=== PATIENT | male | born 1985 | race Caucasian/White ===

== ENCOUNTER 2018-10-09 12:06 | Emergency (ER) | payer OTHER ==
--- OUTSIDE RECORDS SUMMARY | 2018-10-09 12:09 | XMS REPORT ---
:1985 Author Organization [facility] Address [address] [place] [place] [address] Care Team Providers Name Role Phone FARSHADNILOTESSA Unavailable Unavailable Problems This patient has no known problems. Allergies, Adverse Reactions, Alerts This patient has no known allergies or adverse reactions. Medications This patient has no known medications. Results Test Description Test Time Test Comments Text Results Atomic Results Result Comments [facility], [facility], 2017-03-17 14:45:00 FINAL REPORT SPECT PROCEDURE: Rest/Stress MYOCARDIAL PERFUSION SPECT with treadmill\XA9\ CPT CODE: 85833 INDICATION: Chest pain HISTORY: Cardiac risk factors: Hypertension. Other cardiovascular history: No reported CAD. Recent cardiac symptoms: Chest pain. Current cardiovascular-related medications: Metoprolol. PROTOCOL: 10.5 mCi of Tc-99m sestamibi was injected iv at rest, and SPECT (tomographic) images were obtained. Also, 31.2 mCi of Tc-99m sestamibi was injected iv approximately one minute prior to peak exercise, and gated SPECT images were obtained. PRELIMINARY STRESS TEST DATA FROM NONINVASIVE CARDIOLOGY: The patient exercised for 8 minutes 31 seconds using the Brian treadmill protocol. Heart rate was 99 beats/min at rest; peak heart rate was 148 beats/min (78% of MPHR). BP was 150/103 mmHg at rest; peak BP was 175/90 mmHg. Exercise was stopped for fatigue. The patient experienced chest tightness; treatment was not required. Preliminary ECG evaluation revealed sinus rhythm at rest and no ischemic changes with stress. (Final ECG interpretation and other stress and monitoring data are reported separately by Cardiology.) IMAGING FINDINGS: Study quality is good. Images obtained after rest and stress injections show normal LV activity. LV and RV volumes appear normal. Gated images obtained at rest after stress injection show normal LV wall motion and thickening. QGS LVEF is 63%. IMPRESSION: 1. Normal study. 2. Adequate exercise stress. 3. Normal myocardial perfusion. 4. Normal resting LV function. 5. Normal extracardiac tracer distribution. 6. No previous [facility] study for comparison. NONINVASIVE RISK STRATIFICATION: The above findings are considered low risk (<1% annual mortality rate) based on the following criterion:- Normal or small myocardial perfusion defect at rest or with stress(JACC. 2012;59(9):857-81.) Signed: Ignacio Ruvalcaba MDReport Verified Date/Time: 03/17/2017 14:45:11 Reading Location: [place] [id number] Reading Room GLOBIN A1C 2017-03-17 08:29:00 Test Item Value Reference Range Comments HEMOGLOBIN A1C (BEAKER) (test qsyr=329) 5.5 % 4.3-6.1 CREATINE KINASE (CK), TOTAL AND [id number] 02:45:00 Test Item Value Reference Range Comments CREATINE KINASE TOTAL (BEAKER) (test txkf=967) 34 U/L 29-200 CREATINE KINASE-MB (BEAKER) (test zmrp=455) 0.4 ng/mL 0.0-6.6 CREATINE KINASE-MB INDEX (BEAKER) (test xnaf=815) 1.2 % CK-MB Reference Range:<6.7 Normal6.7-10.0 Borderline>10.0 AbnormalTROPONIN [id number] 02:45:00 Test Item Value Reference Range Comments TROPONIN I (BEAKER) (test ddxs=910) < ng/mL 0.00-0.03 Troponin I (TnI) levels must be interpreted in the context of the presenting symptoms and the clinical findings. Elevated TnI levels indicate myocardial damage, but are not specific for ischemic heart disease. Elevated TnI levels are seen in patients with other cardiac conditions (including myocarditis and congestive heart failure), and slight TnI elevations occur in patients with other conditions, including sepsis, renal failure, acidosis, acute neurological disease, and persistent tachyarrhythmia.RAD, CHEST, 1 VIEW, NON [id number] 20:40:00Reason for exam:->chest painShould this be performed at the bedside?- >YesFINAL REPORT EXAMINATION: AP PORTABLE CHEST RADIOGRAPH CLINICAL INDICATION:Chest pain IMPRESSION: Compared with 04/30/2016. No evidence of focal lung consolidation, pulmonary edema or pleural effusion. The heart size is normal. Mediastinal contours are sharp. No evidence of an acute osseous abnormality or pneumothorax. Signed: Santhosh Castle MDReport Verified Date/Time: 03/16/2017 20:40:21 Reading Location: [address] Reading Room Electronically signed by: SANTHOSH CASTLE M.D. on 10/2016 08:40 PMB-TYPE NATRIURETIC FACTOR (BNP)2017-03-16 20:30:00 Test Item Value Reference Range Comments B-TYPE NATRIURETIC PEPTIDE (BEAKER) (test mpsy=139) < pg/mL 0-100 COMPREHENSIVE METABOLIC [id number] 20:30:00 Test Item Value Reference Range Comments TOTAL PROTEIN (BEAKER) 7.6 gm/dL 6.0-8.3 Specimen slightly (test bpep=975) hemolyzed ALBUMIN (BEAKER) (test 4.0 g/dL 3.5-5.0 Specimen slightly sroh=5857) hemolyzed ALKALINE PHOSPHATASE 70 U/L 40-150 (BEAKER) (test kjuv=165) BILIRUBIN TOTAL (BEAKER) 0.4 mg/dL 0.2-1.2 Specimen slightly (test bitd=359) hemolyzed SODIUM (BEAKER) (test 140 meq/L 136-145 dhhv=754) POTASSIUM (BEAKER) (test 4.9 meq/L 3.5-5.1 Specimen slightly ggwq=876) hemolyzed CHLORIDE (BEAKER) (test 102 meq/L 98-107 wtje=365) CO2 (BEAKER) (test 29 meq/L 22-29 lnxb=228) BLOOD UREA NITROGEN 7 mg/dL 7-21 (BEAKER) (test gfju=790) CREATININE (BEAKER) (test 0.85 mg/dL 0.57-1.25 Specimen slightly csjb=164) hemolyzed GLUCOSE RANDOM (BEAKER) 98 mg/dL 70-105 (test gxrn=242) CALCIUM (BEAKER) (test 8.9 mg/dL 8.4-10.2 pisf=075) AST (SGOT) (BEAKER) (test 23 U/L 5-34 Specimen slightly ihhc=645) hemolyzed ALT (SGPT) (BEAKER) (test 21 U/L 6-55 Specimen slightly qolz=289) hemolyzed EGFR (BEAKER) (test mL/min/1.73 sq m INSUFFICIENT CLINICAL DATA oaun=6359) TO CALCULATE ESTIMATED GFR. CREATINE KINASE (CK), TOTAL AND [id number] 20:28:00 Test Item Value Reference Range Comments CREATINE KINASE TOTAL (BEAKER) (test xexv=737) 50 U/L 29-200 CREATINE KINASE-MB (BEAKER) (test nbdf=801) 0.5 ng/mL 0.0-6.6 CREATINE KINASE-MB INDEX (BEAKER) (test ookz=510) 1.0 % CK-MB Reference Range:<6.7 Normal6.7-10.0 Borderline>10.0 AbnormalTROPONIN [id number] 20:28:00 Test Item Value Reference Range Comments TROPONIN I (BEAKER) (test odqy=584) < ng/mL 0.00-0.03 Troponin I (TnI) levels must be interpreted in the context of the presenting symptoms and the clinical findings. Elevated TnI levels indicate myocardial damage, but are not specific for ischemic heart disease. Elevated TnI levels are seen in patients with other cardiac conditions (including myocarditis and congestive heart failure), and slight TnI elevations occur in patients with other conditions, including sepsis, renal failure, acidosis, acute neurological disease, and persistent tachyarrhythmia.[id number] 20:21:00 Test Item Value Reference Range Comments MAGNESIUM (BEAKER) (test 2.2 mg/dL 1.6-2.6 Specimen slightly hemolyzed eaqy=487) [id number] 20:21:00 Test Item Value Reference Range Comments PHOSPHORUS (BEAKER) (test 3.9 mg/dL 2.3-4.7 Specimen slightly hemolyzed crlg=199) LIPID [id number] 20:21:00 Test Item Value Reference Range Comments TRIGLYCERIDES (BEAKER) (test 212 mg/dL Specimen slightly hemolyzed ozxn=305) CHOLESTEROL (BEAKER) (test 239 mg/dL Specimen slightly hemolyzed wkof=205) HDL CHOLESTEROL (BEAKER) (test 35 mg/dL wnxv=856) LDL CHOLESTEROL CALCULATED 162 mg/dL (BEAKER) (test ndfg=508) Triglyceride Reference Range: Low Risk <150 Borderline 150- 199 High Risk 200-499 Very High Risk >=500Cholesterol Reference Range: Low Risk <200 Borderline 200-239 High Risk > 240HDL Cholesterol Reference Range: Low Risk >=60 High Risk <40LDL Cholesterol Reference Range: Optimal <100 Near Optimal 100-129 Borderline 130-159 High 160-189 Very High >=190PROTHROMBIN TIME/[id number] 20:07:00 Test Item Value Reference Range Comments PROTIME (BEAKER) (test uana=256) 13.0 seconds 11.7-14.7 INR (BEAKER) (test zxzd=292) 1.0 <=5.9 RECOMMENDED COUMADIN/WARFARIN INR THERAPY RANGESSTANDARD DOSE: 2.0 - 3.0 Includes: PROPHYLAXIS forvenous thrombosis, systemic embolization; TREATMENT for venous thrombosis and/or pulmonary embolus.HIGH RISK: Target INR is 2.5-3.5 for patients with mechanical heart valves.[id number] 20:07:00 Test Item Value Reference Range Comments PARTIAL THROMBOPLASTIN TIME (BEAKER) (test 26.9 seconds 22.5-36.0 ltrt=151) CBC W/PLT COUNT & AUTO [id number] 19:57:00 Test Item Value Reference Range Comments WHITE BLOOD CELL COUNT (BEAKER) (test rerr=341) 8.3 K/ L 3.5-10.5 RED BLOOD CELL COUNT (BEAKER) (test hljv=433) 5.41 M/ L 4.63-6.08 HEMOGLOBIN (BEAKER) (test bkfc=060) 16.2 GM/DL 13.7-17.5 HEMATOCRIT (BEAKER) (test jhtc=565) 48.8 % 40.1-51.0 MEAN CORPUSCULAR VOLUME (BEAKER) (test mvlq=758) 90.2 fL 79.0-92.2 MEAN CORPUSCULAR HEMOGLOBIN (BEAKER) (test 29.9 pg 25.7-32.2 kcfb=478) MEAN CORPUSCULAR HEMOGLOBIN CONC (BEAKER) (test 33.2 GM/DL 32.3-36.5 tvxp=679) RED CELL DISTRIBUTION WIDTH (BEAKER) (test 13.1 % 11.6-14.4 wkfi=893) PLATELET COUNT (BEAKER) (test qood=453) 253 K/CU MM 150-450 MEAN PLATELET VOLUME (BEAKER) (test xpkj=700) 10.5 fL 9.4-12.4 NUCLEATED RED BLOOD CELLS (BEAKER) (test 0 /100 WBC 0-0 ulkv=026) NEUTROPHILS RELATIVE PERCENT (BEAKER) (test 45 % exvn=151) LYMPHOCYTES RELATIVE PERCENT (BEAKER) (test 32 % cyjp=638) MONOCYTES RELATIVE PERCENT (BEAKER) (test 14 % zbxz=702) EOSINOPHILS RELATIVE PERCENT (BEAKER) (test 7 % nuka=108) BASOPHILS RELATIVE PERCENT (BEAKER) (test 1 % hgrz=661) NEUTROPHILS ABSOLUTE COUNT (BEAKER) (test 3.77 K/ L 1.78-5.38 gsyi=474) LYMPHOCYTES ABSOLUTE COUNT (BEAKER) (test 2.66 K/ L 1.32-3.57 hlyr=832) MONOCYTES ABSOLUTE COUNT (BEAKER) (test 1.16 K/ L 0.30-0.82 stac=859) EOSINOPHILS ABSOLUTE COUNT (BEAKER) (test 0.59 K/ L 0.04-0.54 miam=338) BASOPHILS ABSOLUTE COUNT (BEAKER) (test 0.08 K/ L 0.01-0.08 livk=578) IMMATURE GRANULOCYTES-RELATIVE PERCENT (BEAKER) 1 % 0-1 (test nvay=6450)
--- OUTSIDE RECORDS SUMMARY | 2018-10-09 12:09 | XMS REPORT | Clinical Summary ---
:1985 Author Organization [facility] Address [address] [place] [address] Care Team Providers Name Role Phone Vijay Luke Primary Care Provider Allergies No Known Allergies Medications No known medications Active Problems Problem Noted Date Chest pain 03/16/2017 Chest pain, unspecified type 04/30/2016 Family History Medical History Relation Name Comments Heart attack Father Heart attack Paternal Grandfather Relation Name Status Comments Father Paternal Grandfather Social History Tobacco Use Types Packs/Day Years Used Date Current Every Day Smoker Cigarettes 0.5 Smokeless Tobacco: Never Used Alcohol Use Drinks/Week oz/Week Comments Yes socially Sex Assigned at Date Recorded Not on file Job Start Date Occupation Industry Not on file Not on file Not on file Travel History Travel Start Travel End No recent travel history available. Last Filed Vital Signs Not on file Plan of Treatment Not on file Results Not on fileafter 10/08/2017 Advance Directives For more information, please contact:[address] [phone] Code Status Date Activated Date Inactivated Comments Full Code 03/16/2017 7:21 PM 03/17/2017 7:28 PM This code status was determined by: Patient
[2018-10-09 12:57] LABS: Absolute Lymphocytes (CBC) 2.5 K/uL (0.7-4.9); Absolute Monocytes 1.3 K/uL (0.1-1.3); Absolute Neutrophil 7.6 K/uL (1.8-8.0); Basophils % 1.3 % (0-1.3); Eosinophils % 0.6 % (0-4.4); Lymphocytes % 21.4 % (15.3-44.8); MPV 8.2 fL (7.6-11.3); Monocytes % 11.1 % (3.3-12.3); RBC Red Blood Cell Count 5.81 M/uL (4.33-5.43)
[2018-10-09] MEDS ORDERED: NA CHLORIDE 0.9% 1,000 ML with FOLIC ACID 1 MG, THIAMINE HCL 100 MG, MULTIVITAMINS INJ ... IV ONE ×4 (13:00)
[2018-10-09 13:02] LABS: Protime INR 1.05
--- NOTE | 2018-10-09 13:05 | RAD REPORT ---
EXAM DESCRIPTION: RAD - Chest Single View - 10/09/2018 12:59 pm CLINICAL HISTORY: CHEST PAIN Chest pain. COMPARISON: Chest Single View dated 02/11/2017; Chest Single View dated 10/28/2016; Chest Single View dated 10/01/2016; Chest Single View dated 01/30/2016 FINDINGS: Portable technique limits examination quality. The lungs are grossly clear. The heart is normal in size. No displaced fractures. IMPRESSION: No acute intrathoracic process suspected.
[2018-10-09] MEDS ORDERED: LORazepam 2 MG/ML VIAL ONE (13:09)
[2018-10-09 13:51] LABS: ALT/SGPT 77 U/L (12-78); AST/SGOT 47 U/L (15-37); Albumin 3.9 g/dL (3.4-5.0); Alkaline Phosphatase 76 U/L (45-117); BUN Blood Urea Nitrogen 13 mg/dL (7-18); Bicarbonate 29 mmol/L (21-32); Bilirubin Direct < 0.1 mg/dL (0-0.2); Bilirubin Total 0.4 mg/dL (0.2-1.0); Glucose Level 113 mg/dL (74-106); Magnesium 2.2 mg/dL (1.8-2.4); NT PRO-BNP 16 pg/mL (<125); Potassium 3.7 mmol/L (3.5-5.1); Protein, Total 7.6 g/dL (6.4-8.2); Sodium Level 139 mmol/L (136-145); Troponin (Emerg Dept Use Only) < 0.02 ng/mL (0.0-0.045)
[2018-10-09] MEDS ORDERED: FAMOTIDINE 20 MG/2 ML VIAL IV ONE (14:56)
--- NOTE | 2018-10-09 15:12 | ER ---
Nurse's Notes [facility] Name: Srini Simpson Age: 33 yrs Sex: Male : 1985 Arrival Date: 10/09/2018 Time: 12:15 Bed 16 Private MD: Diagnosis: Anxiety disorder, unspecified Presentation: 10/09 12:06 Presenting complaint: EMS states: 33 yr. old A \T\ O x 4, pt. drank nine [place] energy rb1 drinks since 0700 this morning. C/o chest pain, tachycardia 107, 95% 2 L NC, R 16, BP 152/110, BS 138, and nausea. 20 G L AC, administered Zofran 4 mg IVP x 1. History of hypertension and take Metoprolol. 12:06 Transition of care: patient was not received from another setting of care. Onset of rb1 symptoms was October 09, 2018. Risk Assessment: Do you want to hurt yourself or someone else? Patient reports no desire to harm self or others. Initial Sepsis Screen: Does the patient meet any 2 criteria? No. Patient's initial sepsis screen is negative. Does the patient have a suspected source of infection? No. Patient's initial sepsis screen is negative. Care prior to arrival: Medication(s) given: zofran 4 mg. 12:06 Method Of Arrival: EMS: [facility] 12:06 Acuity: CHRISTINE 2 rb1 Triage Assessment: 12:06 General: Appears in no apparent distress. comfortable, Behavior is calm, cooperative. rb1 General: Denies Suicidal ideation or homicidal ideation. Pt. recently broke up with his . Pain: Complains of pain in mid-sternal area Pain currently is 5 out of 10 on a pain scale. Neuro: Level of Consciousness is awake, alert, obeys commands, Oriented to person, place, time, situation. Cardiovascular: Capillary refill < 3 seconds is brisk in bilateral fingers. Respiratory: Airway is patent Respiratory effort is even, unlabored, Respiratory pattern is regular, symmetrical. GI: Reports nausea. : No signs and/or symptoms were reported regarding the genitourinary system. Derm: Skin is pink, warm \T\ dry. Historical: - Allergies: 12:06 No Known Allergies; rb1 - Home Meds: 12:06 metoprolol tartrate 50 mg Oral tab 1 tab 2 times per day [Active]; Valium 10 mg Oral rb1 tab 1 tab 2 times per day [Active]; - PMHx: 12:06 Anxiety; Depression; Hypertension; Pyloric Stenosis; rb1 - PSHx: 12:06 Pyloric Stenosis; rb1 - Immunization history:: Adult Immunizations up to date. - Social history:: Smoking status: Patient uses tobacco products, smokes one-half pack cigarettes per day. - Ebola Screening: : Patient negative for fever greater than or equal to 101.5 degrees Fahrenheit, and additional compatible Ebola Virus Disease symptoms. Screenin:06 Abuse screen: Denies threats or abuse. Nutritional screening: No deficits noted. rb1 Tuberculosis screening: No symptoms or risk factors identified. Fall Risk None identified. Assessment: 12:06 General: See triage assessment. rb1 12:06 Pain: Pain began. rb1 12:06 Pain: Pain does not radiate. rb1 12:58 Reassessment: Pt. is crying and feeling anxious and requested something for anxiety. rb1 Provider notified. Received verbal order for Ativan 0.5 mg IVP x 1, 100% verbal read back. 13:50 Reassessment: Patient appears in no apparent distress at this time. Patient and/or rb1 family updated on plan of care and expected duration. Pain level reassessed. Patient is alert, oriented x 3, equal unlabored respirations, skin warm/dry/pink. 14:48 Reassessment: Patient appears in no apparent distress at this time. No changes from rb1 previously documented assessment. 15:32 Reassessment: Patient appears in no apparent distress at this time. Patient and/or rb1 family updated on plan of care and expected duration. Pain level reassessed. Patient is alert, oriented x 3, equal unlabored respirations, skin warm/dry/pink. Vital Signs: 12:06 BP 152 / 115; Pulse 103; Resp 20; Temp 98.6(O); Pulse Ox 95% on 2 lpm NC; Weight 81.65 rb1 kg (R); Height 5 ft. 7 in. (170.18 cm) (R); Pain 5/10; 12:42 BP 160 / 120; Pulse 99; Resp 16; Temp 98.4(O); Pulse Ox 94% 2 lpm ; mh5 12:50 Pain 0/10; rb1 13:30 BP 153 / 87; Pulse 95; Resp 15; Temp 98.4(O); Pulse Ox 97% on R/A; Pain 3/10; rb1 14:04 BP 140 / 100; Pulse 86; Resp 12; Temp 98.2; Pulse Ox 94% 2 lpm ; mh5 15:01 BP 136 / 87; Pulse 89; Resp 12; Temp 98.2(O); Pulse Ox 98% on R/A; mh5 15:32 BP 136 / 87; Pulse 90; Resp 17; Temp 98.2(O); Pulse Ox 97% on R/A; Pain 0/10; rb1 12:06 Body Mass Index 28.19 (81.65 kg, 170.18 cm) rb1 ED Course: 12:06 Arm band placed on right wrist. rb1 12:06 Patient has correct armband on for positive identification. Bed in low position. Call rb1 light in reach. Side rails up X2. furniture decals inspector on. Pulse ox on. NIBP on. 12:06 Maintain EMS IV. Dressing intact. Good blood return noted. Site clean \T\ dry. Gauge \T\ rb 1 site: 20 G L AC. Oxygen administration via nasal cannula \T\ 2L/min. 12:15 Patient arrived in ED. rb1 12:15 Sheree Lezama FNP is PHCP. nh 12:15 Paresh Soni MD is Attending Physician. nh 12:27 Triage completed. rb1 12:33 Cinda Tijerina, RN is Primary Nurse. rb1 12:42 EKG done, by ED staff, reviewed by Sheree DAVENPORT. [facility] 13:00 XRAY Chest (1 view) In Process Unspecified. EDMS 15:34 No provider procedures requiring assistance completed. IV discontinued, intact, rb1 bleeding controlled, No redness/swelling at site. Pressure dressing applied. Administered Medications: 13:00 Drug: Ativan 0.5 mg Route: IVP; Site: left antecubital; rb1 13:15 Follow up: Response: No adverse reaction; Anxiety decreased rb1 13:27 Drug: Banana Bag - (NS 0.9% 1000 ml, foLIC Acid 1 mg, Thiamine 100 mg, Multivitamin 1 rb1 amp) Route: IV; Rate: calculated rate; Site: left antecubital; 14:44 Drug: Pepcid 20 mg Route: IVP; Site: left antecubital; rb1 14:58 Follow up: Response: No adverse reaction; Marked relief of symptoms rb1 Outcome: 15:12 Discharge ordered by . adiel 15:34 Discharged to home ambulatory. rb1 15:34 Condition: stable 15:34 Discharge instructions given to patient, Instructed on discharge instructions, follow up and referral plans. Demonstrated understanding of instructions, follow-up care, Prescriptions given X none 15:35 Patient left the ED. rb1 Signatures: Dispatcher [employer] EDSheree Moctezuma, BINDERY LEADPERSON BINDERY LEADPERSON nc Cinda Tijerina, RN RN rb1 Jill Qiu [facility]
--- NOTE | 2018-10-09 15:13 | EDPHYS ---
Physician Documentation [facility] Name: Srini Simpson Age: 33 yrs Sex: Male : 1985 Arrival Date: 10/09/2018 Time: 12:15 Bed 16 Private MD: ED Physician Paresh Soni HPI: 10/09 15:06 This 33 yrs old Male presents to ER via EMS with complaints of Chest Pain. nh 15:06 Onset: The symptoms/episode began/occurred acutely, just prior to arrival. Associated nh signs and symptoms: Pertinent positives: chest pain, shortness of breath. Modifying factors: The patient symptoms are alleviated by nothing, the patient symptoms are aggravated by nothing. The patient has not experienced similar symptoms in the past. The patient has not recently seen a physician. Patient states that he has drank 9 four locos today. States that he started getting chest pain. Historical: - Allergies: 12:06 No Known Allergies; rb1 - Home Meds: 12:06 metoprolol tartrate 50 mg Oral tab 1 tab 2 times per day [Active]; Valium 10 mg Oral rb1 tab 1 tab 2 times per day [Active]; - PMHx: 12:06 Anxiety; Depression; Hypertension; Pyloric Stenosis; rb1 - PSHx: 12:06 Pyloric Stenosis; rb1 - Immunization history:: Adult Immunizations up to date. - Social history:: Smoking status: Patient uses tobacco products, smokes one-half pack cigarettes per day. - Ebola Screening: : Patient negative for fever greater than or equal to 101.5 degrees Fahrenheit, and additional compatible Ebola Virus Disease symptoms. ROS: 15:06 Constitutional: Negative for fever, chills, and weight loss, Eyes: Negative for injury, nh pain, redness, and discharge, ENT: Negative for injury, pain, and discharge, Neck: Negative for injury, pain, and swelling, Respiratory: Negative for shortness of breath, cough, wheezing, and pleuritic chest pain, Abdomen/GI: Negative for abdominal pain, nausea, vomiting, diarrhea, and constipation, Back: Negative for injury and pain, : Negative for injury, bleeding, discharge, and swelling, MS/Extremity: Negative for injury and deformity, Skin: Negative for injury, rash, and discoloration, Neuro: Negative for headache, weakness, numbness, tingling, and seizure, Psych: Negative for depression, anxiety, suicide ideation, homicidal ideation, and hallucinations. 15:06 Cardiovascular: Positive for chest pain. Exam: 15:06 Constitutional: This is a well developed, well nourished patient who is awake, alert, nh and in no acute distress. Head/Face: Normocephalic, atraumatic. Eyes: Pupils equal round and reactive to light, extra-ocular motions intact. Lids and lashes normal. Conjunctiva and sclera are non-icteric and not injected. Cornea within normal limits. Periorbital areas with no swelling, redness, or edema. ENT: Nares patent. No nasal discharge, no septal abnormalities noted. Tympanic membranes are normal and external auditory canals are clear. Oropharynx with no redness, swelling, or masses, exudates, or evidence of obstruction, uvula midline. Mucous membranes moist. Neck: Trachea midline, no thyromegaly or masses palpated, and no cervical lymphadenopathy. Supple, full range of motion without nuchal rigidity, or vertebral point tenderness. No Meningismus. Cardiovascular: Regular rate and rhythm with a normal S1 and S2. No gallops, murmurs, or rubs. Normal PMI, no JVD. No pulse deficits. Respiratory: Lungs have equal breath sounds bilaterally, clear to auscultation and percussion. No rales, rhonchi or wheezes noted. No increased work of breathing, no retractions or nasal flaring. Abdomen/GI: Soft, non-tender, with normal bowel sounds. No distension or tympany. No guarding or rebound. No evidence of tenderness throughout. Back: No spinal tenderness. No costovertebral tenderness. Full range of motion. Skin: Warm, dry with normal turgor. Normal color with no rashes, no lesions, and no evidence of cellulitis. MS/ Extremity: Pulses equal, no cyanosis. Neurovascular intact. Full, normal range of motion. Neuro: Awake and alert, GCS 15, oriented to person, place, time, and situation. Cranial nerves II-XII grossly intact. Motor strength 5/5 in all extremities. Sensory grossly intact. Cerebellar exam normal. Normal gait. Psych: Awake, alert, with orientation to person, place and time. Behavior, mood, and affect are within normal limits. 15:06 Chest/axilla: Inspection: normal, Palpation: is normal, Axilla: are normal, Lymph nodes: lymphadenopathy is not appreciated. Vital Signs: 12:06 BP 152 / 115; Pulse 103; Resp 20; Temp 98.6(O); Pulse Ox 95% on 2 lpm NC; Weight 81.65 rb1 kg (R); Height 5 ft. 7 in. (170.18 cm) (R); Pain 5/10; 12:42 BP 160 / 120; Pulse 99; Resp 16; Temp 98.4(O); Pulse Ox 94% 2 lpm ; mh5 12:50 Pain 0/10; rb1 13:30 BP 153 / 87; Pulse 95; Resp 15; Temp 98.4(O); Pulse Ox 97% on R/A; Pain 3/10; rb1 14:04 BP 140 / 100; Pulse 86; Resp 12; Temp 98.2; Pulse Ox 94% 2 lpm ; mh5 15:01 BP 136 / 87; Pulse 89; Resp 12; Temp 98.2(O); Pulse Ox 98% on R/A; mh5 15:32 BP 136 / 87; Pulse 90; Resp 17; Temp 98.2(O); Pulse Ox 97% on R/A; Pain 0/10; rb1 12:06 Body Mass Index 28.19 (81.65 kg, 170.18 cm) rb1 MDM: 12:15 Patient medically screened. nh 15:06 Data reviewed: vital signs, nurses notes, lab test result(s), EKG, radiologic studies, nh I have discussed the patient's presentation/case with the attending Emergency Department Physician; and as a result, I will discharge patient. Counseling: I had a detailed discussion with the patient and/or guardian regarding: the historical points, exam findings, and any diagnostic results supporting the discharge/admit diagnosis, lab results, radiology results, the need for outpatient follow up, to return to the emergency department if symptoms worsen or persist or if there are any questions or concerns that arise at home. 10/09 12:37 Order name: Basic Metabolic Panel; Complete Time: 14:04 de 10/09 12:37 Order name: CBC with Diff; Complete Time: 13:10 de 10/09 12:37 Order name: LFT's; Complete Time: 14:04 de 10/09 12:37 Order name: Magnesium; Complete Time: 14:04 de 10/09 12:37 Order name: NT PRO-BNP; Complete Time: 14:04 de 10/09 12:37 Order name: PT-INR; Complete Time: 14:04 de 10/09 12:37 Order name: Troponin (emerg Dept Use Only); Complete Time: 14:04 de 10/09 12:37 Order name: XRAY Chest (1 view); Complete Time: 13:10 de 10/09 12:37 Order name: EKG; Complete Time: 12:38 de 10/09 12:37 Order name: Cardiac monitoring; Complete Time: 12:38 de 10/09 12:37 Order name: EKG - Nurse/Tech; Complete Time: 12:38 de 10/09 12:37 Order name: IV Saline Lock; Complete Time: 12:38 de 10/09 12:37 Order name: Labs collected and sent; Complete Time: 13:04 de 10/09 12:37 Order name: O2 Per Protocol; Complete Time: 12:39 de 10/09 12:37 Order name: O2 Sat Monitoring; Complete Time: 12:39 de Administered Medications: 13:00 Drug: Ativan 0.5 mg Route: IVP; Site: left antecubital; rb1 13:15 Follow up: Response: No adverse reaction; Anxiety decreased rb1 13:27 Drug: Banana Bag - (NS 0.9% 1000 ml, foLIC Acid 1 mg, Thiamine 100 mg, Multivitamin 1 rb1 amp) Route: IV; Rate: calculated rate; Site: left antecubital; 14:44 Drug: Pepcid 20 mg Route: IVP; Site: left antecubital; rb1 14:58 Follow up: Response: No adverse reaction; Marked relief of symptoms rb1 Disposition: 10/09/18 15:12 Discharged to Home. Impression: Anxiety disorder, unspecified. - Condition is Stable. - Discharge Instructions: Panic Attacks. - Medication Reconciliation Form, Thank You Letter, Antibiotic Education, Prescription Opioid Use form. - Follow up: Private Physician; When: 5 - 6 days; Reason: Recheck today's complaints. - Problem is new. - Symptoms are unchanged. Addendum: 10/11/2018 06:52 Co-signature as Attending Physician, Paresh Soni MD I agree with the assessment and k dr plan of care. Signatures: Dispatcher [employer] EDKS Paresh Soni MD MD kdr Sheree Lezama, PATTERN DUPLICATOR PATTERN DUPLICATOR de Cinda Tijerina, RN RN rb1 Corrections: (The following items were deleted from the chart) 10/09 15:35 15:12 10/09/2018 15:12 Discharged to Home. Impression: Anxiety disorder, unspecified. rb1 Condition is Stable. Forms are Medication Reconciliation Form, Thank You Letter, Antibiotic Education, Prescription Opioid Use. Follow up: Private Physician; When: 5 - 6 days; Reason: Recheck today's complaints. Problem is new. Symptoms are unchanged. nh
[2018-10-09 15:45] VITALS: TEMP 98.2
[2018-10-09 15:46] VITALS: BP 136/87
[2018-10-09 15:48] VITALS: O2SAT 97
--- NOTE | 2018-10-09 16:40 | EKG ---
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
== END 2018-10-09 15:35 | disposition home or self-care (01) ==
LOC: ER 12:06
DX: F41.9 Anxiety disorder, unspecified (principal); F32.9 Major depressive disorder, single episode, unspecified; I10 Essential (primary) hypertension; F17.210 Nicotine dependence, cigarettes, uncomplicated
CPT/HCPCS: 36415; 71045; 80048; 80076; 83735; 83880; 84484; 85025; 85610; 93005; 96374; 96375; 99285; J3411; J7030

== ENCOUNTER 2018-10-11 14:04 | Emergency (ER) | payer OTHER ==
--- OUTSIDE RECORDS SUMMARY | 2018-10-11 14:06 | XMS REPORT | Clinical Summary ---
:[address] [facility] Address [address] [place] [address] Care Team Providers Name Role Phone Vijay [...] Not on file Results Not on fileafter 10/10/2017 Advance Directives For more information, please contact:[address] [phone] Code Status Date Activated Date Inactivated Comments Full Code 03/16/2017 7:21 PM 03/17/2017 7:28 PM This code status was determined by: Patient
--- OUTSIDE RECORDS SUMMARY | 2018-10-11 14:06 | XMS REPORT ---
:1985 [facility] Address [address] [place] [address] Care Team Providers Name Role Phone FARSHADNILOTESSA Unavailable Unavailable Problems This patient has no known problems. Allergies, Adverse Reactions, Alerts This patient has no known allergies or adverse reactions. Medications This patient has no known medications. Results Test Description Test Time Test Comments Text Results Atomic Results Result Comments [facility], [facility], 2017-03-17 14:45:00 FINAL REPORT SPECT PROCEDURE: Rest/Stress MYOCARDIAL PERFUSION SPECT with treadmill\XA9\ CPT CODE: 50400 INDICATION: Chest pain HISTORY: Cardiac risk factors: [...] Normal extracardiac tracer distribution. 6. No previous [facility] study for comparison. NONINVASIVE RISK STRATIFICATION: The above findings are considered low risk (<1% annual mortality rate) based on the following criterion:- Normal or small myocardial perfusion defect at rest or with stress(JACC. 2012;59(9):857-81.) Signed: Ignacio Ruvalcaba MDReport Verified Date/Time: 03/17/2017 14:45:11 Reading Location: [place] [id number] Reading Room GLOBIN A1C 2017-03-17 08:29:00 Test Item Value Reference Range Comments HEMOGLOBIN A1C (BEAKER) (test omap=086) 5.5 % 4.3-6.1 CREATINE KINASE (CK), TOTAL AND [id number] 02:45:00 Test Item Value Reference Range Comments CREATINE KINASE TOTAL (BEAKER) (test fuhq=893) 34 U/L 29-200 CREATINE KINASE-MB (BEAKER) (test bfwd=059) 0.4 ng/mL 0.0-6.6 CREATINE KINASE-MB INDEX (BEAKER) (test zdbw=179) 1.2 % CK-MB Reference Range:<6.7 Normal6.7-10.0 Borderline>10.0 AbnormalTROPONIN [id number] 02:45:00 Test Item Value Reference Range Comments TROPONIN I (BEAKER) (test adqy=180) < ng/mL 0.00-0.03 Troponin I (TnI) levels [...] and persistent tachyarrhythmia.RAD, CHEST, 1 VIEW, NON [id number] 20:40:00Reason for exam:->chest painShould this be performed at the bedside?- >YesFINAL REPORT EXAMINATION: AP PORTABLE CHEST RADIOGRAPH CLINICAL INDICATION:Chest pain IMPRESSION: Compared with 04/30/2016. No evidence of focal lung consolidation, pulmonary edema or pleural effusion. The heart size is normal. Mediastinal contours are sharp. No evidence of an acute osseous abnormality or pneumothorax. Signed: Santhosh Castle MDReport Verified Date/Time: 03/16/2017 20:40:21 Reading Location: [address] Reading Room Electronically signed by: SANTHOSH CASTLE M.D. on 10/2016 08:40 PMB-TYPE NATRIURETIC FACTOR (BNP)2017-03-16 20:30:00 Test Item Value Reference Range Comments B-TYPE NATRIURETIC PEPTIDE (BEAKER) (test nzdd=439) < pg/mL 0-100 COMPREHENSIVE METABOLIC [id number] 20:30:00 Test Item Value Reference Range Comments TOTAL PROTEIN (BEAKER) 7.6 gm/dL 6.0-8.3 Specimen slightly (test pvla=990) hemolyzed ALBUMIN (BEAKER) (test 4.0 g/dL 3.5-5.0 Specimen slightly gfpo=9122) hemolyzed ALKALINE PHOSPHATASE 70 U/L 40-150 (BEAKER) (test nwpn=475) BILIRUBIN TOTAL (BEAKER) 0.4 mg/dL 0.2-1.2 Specimen slightly (test rlcf=021) hemolyzed SODIUM (BEAKER) (test 140 meq/L 136-145 mjzv=880) POTASSIUM (BEAKER) (test 4.9 meq/L 3.5-5.1 Specimen slightly vpwl=920) hemolyzed CHLORIDE (BEAKER) (test 102 meq/L 98-107 zocs=272) CO2 (BEAKER) (test 29 meq/L 22-29 hbri=105) BLOOD UREA NITROGEN 7 mg/dL 7-21 (BEAKER) (test ovaz=228) CREATININE (BEAKER) (test 0.85 mg/dL 0.57-1.25 Specimen slightly bveh=735) hemolyzed GLUCOSE RANDOM (BEAKER) 98 mg/dL 70-105 (test qzzo=625) CALCIUM (BEAKER) (test 8.9 mg/dL 8.4-10.2 kepl=175) AST (SGOT) (BEAKER) (test 23 U/L 5-34 Specimen slightly ykzm=910) hemolyzed ALT (SGPT) (BEAKER) (test 21 U/L 6-55 Specimen slightly aiqm=849) hemolyzed EGFR (BEAKER) (test mL/min/1.73 sq m INSUFFICIENT CLINICAL DATA dshf=2247) TO CALCULATE ESTIMATED GFR. CREATINE KINASE (CK), TOTAL AND [id number] 20:28:00 Test Item Value Reference Range Comments CREATINE KINASE TOTAL (BEAKER) (test mhkd=930) 50 U/L 29-200 CREATINE KINASE-MB (BEAKER) (test vtqi=707) 0.5 ng/mL 0.0-6.6 CREATINE KINASE-MB INDEX (BEAKER) (test yzwn=849) 1.0 % CK-MB Reference Range:<6.7 Normal6.7-10.0 Borderline>10.0 AbnormalTROPONIN [id number] 20:28:00 Test Item Value Reference Range Comments TROPONIN I (BEAKER) (test rznh=687) < ng/mL 0.00-0.03 Troponin I (TnI) levels [...] failure, acidosis, acute neurological disease, and persistent tachyarrhythmia.[id number] 20:21:00 Test Item Value Reference Range Comments MAGNESIUM (BEAKER) (test 2.2 mg/dL 1.6-2.6 Specimen slightly hemolyzed ffki=107) [id number] 20:21:00 Test Item Value Reference Range Comments PHOSPHORUS (BEAKER) (test 3.9 mg/dL 2.3-4.7 Specimen slightly hemolyzed bmlv=986) LIPID [id number] 20:21:00 Test Item Value Reference Range Comments TRIGLYCERIDES (BEAKER) (test 212 mg/dL Specimen slightly hemolyzed gfjr=407) CHOLESTEROL (BEAKER) (test 239 mg/dL Specimen slightly hemolyzed eogn=728) HDL CHOLESTEROL (BEAKER) (test 35 mg/dL qwci=903) LDL CHOLESTEROL CALCULATED 162 mg/dL (BEAKER) (test qhlz=234) Triglyceride Reference Range: Low Risk <150 Borderline 150- 199 High Risk 200-499 Very High Risk >=500Cholesterol Reference Range: Low Risk <200 Borderline 200-239 High Risk > 240HDL Cholesterol Reference Range: Low Risk >=60 High Risk <40LDL Cholesterol Reference Range: Optimal <100 Near Optimal 100-129 Borderline 130-159 High 160-189 Very High >=190PROTHROMBIN [id number] 20:07:00 Test Item Value Reference Range Comments PROTIME (BEAKER) (test ymmq=108) 13.0 seconds 11.7-14.7 INR (BEAKER) (test suxq=983) 1.0 <=5.9 RECOMMENDED COUMADIN/WARFARIN INR THERAPY RANGESSTANDARD DOSE: 2.0 - 3.0 Includes: PROPHYLAXIS forvenous thrombosis, systemic embolization; TREATMENT for venous thrombosis and/or pulmonary embolus.HIGH RISK: Target INR is 2.5-3.5 for patients with mechanical heart valves.[id number] 20:07:00 Test Item Value Reference Range Comments PARTIAL THROMBOPLASTIN TIME (BEAKER) (test 26.9 seconds 22.5-36.0 xgwy=870) CBC W/PLT COUNT & AUTO [id number] 19:57:00 Test Item Value Reference Range Comments WHITE BLOOD CELL COUNT (BEAKER) (test tozn=578) 8.3 K/ L 3.5-10.5 RED BLOOD CELL COUNT (BEAKER) (test mzln=896) 5.41 M/ L 4.63-6.08 HEMOGLOBIN (BEAKER) (test kfnt=433) 16.2 GM/DL 13.7-17.5 HEMATOCRIT (BEAKER) (test wvyz=793) 48.8 % 40.1-51.0 MEAN CORPUSCULAR VOLUME (BEAKER) (test jedy=221) 90.2 fL 79.0-92.2 MEAN CORPUSCULAR HEMOGLOBIN (BEAKER) (test 29.9 pg 25.7-32.2 agfe=236) MEAN CORPUSCULAR HEMOGLOBIN CONC (BEAKER) (test 33.2 GM/DL 32.3-36.5 xxlh=800) RED CELL DISTRIBUTION WIDTH (BEAKER) (test 13.1 % 11.6-14.4 agce=654) PLATELET COUNT (BEAKER) (test dnbp=198) 253 K/CU MM 150-450 MEAN PLATELET VOLUME (BEAKER) (test oxoo=434) 10.5 fL 9.4-12.4 NUCLEATED RED BLOOD CELLS (BEAKER) (test 0 /100 WBC 0-0 gjyh=843) NEUTROPHILS RELATIVE PERCENT (BEAKER) (test 45 % utsr=899) LYMPHOCYTES RELATIVE PERCENT (BEAKER) (test 32 % ekwt=557) MONOCYTES RELATIVE PERCENT (BEAKER) (test 14 % mvhv=336) EOSINOPHILS RELATIVE PERCENT (BEAKER) (test 7 % uvna=346) BASOPHILS RELATIVE PERCENT (BEAKER) (test 1 % tggg=653) NEUTROPHILS ABSOLUTE COUNT (BEAKER) (test 3.77 K/ L 1.78-5.38 hkcl=970) LYMPHOCYTES ABSOLUTE COUNT (BEAKER) (test 2.66 K/ L 1.32-3.57 taps=001) MONOCYTES ABSOLUTE COUNT (BEAKER) (test 1.16 K/ L 0.30-0.82 wlmb=060) EOSINOPHILS ABSOLUTE COUNT (BEAKER) (test 0.59 K/ L 0.04-0.54 wvtv=014) BASOPHILS ABSOLUTE COUNT (BEAKER) (test 0.08 K/ L 0.01-0.08 iqwf=412) IMMATURE GRANULOCYTES-RELATIVE PERCENT (BEAKER) 1 % 0-1 (test xciy=0171)
[2018-10-11 14:51] LABS: Absolute Lymphocytes (CBC) 2.2 K/uL (0.7-4.9); Absolute Monocytes 0.8 K/uL (0.1-1.3); Absolute Neutrophil 4.8 K/uL (1.8-8.0); Basophils % 1.3 % (0-1.3); Eosinophils % 1.6 % (0-4.4); Hematocrit 47.8 % (39.6-49.0); Lymphocytes % 27.2 % (15.3-44.8); MPV 8.3 fL (7.6-11.3); Monocytes % 9.6 % (3.3-12.3); RBC Red Blood Cell Count 5.39 M/uL (4.33-5.43)
[2018-10-11 14:55] LABS: Protime INR 1.06
[2018-10-11 15:11] LABS: ALT/SGPT 169 U/L (12-78); AST/SGOT 163 U/L (15-37); Albumin 3.5 g/dL (3.4-5.0); Alkaline Phosphatase 74 U/L (45-117); BUN Blood Urea Nitrogen 18 mg/dL (7-18); Bicarbonate 24 mmol/L (21-32); Bilirubin Direct 0.1 mg/dL (0-0.2); Bilirubin Total 0.5 mg/dL (0.2-1.0); Glucose Level 104 mg/dL (74-106); Magnesium 2.3 mg/dL (1.8-2.4); NT PRO-BNP 10 pg/mL (<125); Potassium 3.6 mmol/L (3.5-5.1); Sodium Level 140 mmol/L (136-145); Troponin (Emerg Dept Use Only) < 0.02 ng/mL (0.0-0.045)
[2018-10-11 15:23] LABS: Barbiturates NEGATIVE (NEGATIVE); Benzodiazepines POSITIVE (NEGATIVE); Cocaine NEGATIVE (NEGATIVE); METHAMPHETAM NEGATIVE (NEGATIVE); Methadone NEGATIVE (NEGATIVE); Opiates NEGATIVE (NEGATIVE); Phencyclidine NEGATIVE (NEGATIVE); THC Cannibis NEGATIVE (NEGATIVE)
--- NOTE | 2018-10-11 15:37 | EDPHYS ---
Physician Documentation [facility] Name: Srini Simpson Age: 33 yrs Sex: Male : 1985 Arrival Date: 10/11/2018 Time: 14:13 Bed 5 Private MD: ED Physician Jeevan Shaw HPI: 10/11 15:16 This 33 yrs old Male presents to ER via EMS with complaints of alcohol kb intoxication. 15:16 The patient presents to the emergency department after a known overdose, a result of kb recreational substance abuse. Context: Method: the patient has a confirmed or suspected ingestion, of alcohol, Time: this morning, Extent: 4- 24oz beers, the OD/poisoning occurred at at home, and was witnessed no one, Psychiatric history: none, Previous OD/poisoning history: yes. Associated signs and symptoms: Pertinent positives: anxiety, shortness of breath, chest pain, Pertinent negatives: apnea, auditory hallucinations, burning of skin, decreased level of consciousness, depression, diaphoresis, diarrhea, dizziness, incontinence, loss of consciousness, nausea, palpitations, tearfulness, visual hallucinations, vomiting. Severity of symptoms: At their worst the symptoms were moderate in the emergency department the symptoms have improved. The patient has experienced similar episodes in the past. The patient has been recently seen at the [facility] Emergency Department, yesterday, for similar complaints. Pt reports he recently got and has been drinking too much. States he drank 4-24oz beers today and started having chest pains so he called 911. States he no longer has any pain. Pt was sleeping when I entered room. Pt in no apparent distress. Pt denies suicidal or homicidal ideations. . Historical: - Allergies: 14:42 No Known Allergies; mg2 - Home Meds: 14:42 metoprolol tartrate 50 mg Oral tab 1 tab 2 times per day [Active]; Valium 10 mg Oral mg2 tab 1 tab 2 times per day [Active]; - PMHx: 14:42 Anxiety; Depression; Hypertension; Pyloric Stenosis; mg2 - Immunization history:: Flu vaccine is up to date. - Social history:: Smoking status: Patient uses tobacco products, smokes one-half pack cigarettes per day, Patient uses alcohol. - Ebola Screening: : No symptoms or risks identified at this time. ROS: 15:16 Constitutional: Negative for fever, chills, and weight loss, ENT: Negative for injury, kb pain, and discharge, Neck: Negative for injury, pain, and swelling, Abdomen/GI: Negative for abdominal pain, nausea, vomiting, diarrhea, and constipation, Back: Negative for injury and pain, : Negative for injury, bleeding, discharge, and swelling, MS/Extremity: Negative for injury and deformity, Skin: Negative for injury, rash, and discoloration, Neuro: Negative for headache, weakness, numbness, tingling, and seizure. 15:16 Cardiovascular: Positive for chest pain, Negative for edema, orthopnea, palpitations, paroxysmal nocturnal dyspnea. 15:16 Respiratory: Positive for shortness of breath, Negative for cough, dyspnea on exertion, hemoptysis, orthopnea, pleurisy, sputum production, wheezing. Exam: 15:16 Constitutional: This is a well developed, well nourished patient who is awake, alert, kb and in no acute distress. Head/Face: Normocephalic, atraumatic. Neck: Trachea midline, no thyromegaly or masses palpated, and no cervical lymphadenopathy. Supple, full range of motion without nuchal rigidity, or vertebral point tenderness. No Meningismus. Chest/axilla: Normal chest wall appearance and motion. Nontender with no deformity. No lesions are appreciated. Cardiovascular: Regular rate and rhythm with a normal S1 and S2. No gallops, murmurs, or rubs. Normal PMI, no JVD. No pulse deficits. Respiratory: Lungs have equal breath sounds bilaterally, clear to auscultation and percussion. No rales, rhonchi or wheezes noted. No increased work of breathing, no retractions or nasal flaring. Abdomen/GI: Soft, non-tender, with normal bowel sounds. No distension or tympany. No guarding or rebound. No evidence of tenderness throughout. Back: No spinal tenderness. No costovertebral tenderness. Full range of motion. Skin: Warm, dry with normal turgor. Normal color with no rashes, no lesions, and no evidence of cellulitis. MS/ Extremity: Pulses equal, no cyanosis. Neurovascular intact. Full, normal range of motion. Neuro: Awake and alert, GCS 15, oriented to person, place, time, and situation. Cranial nerves II-XII grossly intact. Motor strength 5/5 in all extremities. Sensory grossly intact. Cerebellar exam normal. Normal gait. Psych: Awake, alert, with orientation to person, place and time. Behavior, mood, and affect are within normal limits. 15:27 ECG was reviewed by the Attending Physician. lefty Vital Signs: 14:39 BP 146 / 91; Pulse 98; Resp 18; Temp 98.6(TE); Pulse Ox 92% on R/A; Weight 81.65 kg; mg2 Height 5 ft. 7 in. (170.18 cm); Pain 2/10; 15:25 BP 140 / 85; Pulse 106; Resp 18; Temp 98.5; Pulse Ox 97% on 2 lpm NC; mg2 14:39 Body Mass Index 28.19 (81.65 kg, 170.18 cm) mg2 MDM: 14:59 Patient medically screened. kb 15:16 Data reviewed: vital signs, nurses notes. Data interpreted: Pulse oximetry: on room air kb is 96 %. Interpretation: normal. 15:28 Test interpretation: by ED physician or midlevel provider: plain radiologic studies, kb cxr negative . Counseling: I had a detailed discussion with the patient and/or guardian regarding: the historical points, exam findings, and any diagnostic results supporting the discharge/admit diagnosis, lab results, radiology results, the need for outpatient follow up, a family practitioner, to return to the emergency department if symptoms worsen or persist or if there are any questions or concerns that arise at home. ED course: Discussed alcohol abuse with pt. Recommended he look into counseling for alcohol abuse and depression s/p divorce. [facility] information given to pt. Pt has friends/family to take him home. Will return for any concerns. Pt has no complaints at this time. . 10/11 14:33 Order name: Basic Metabolic Panel mg2 10/11 14:33 Order name: CBC with Diff mg2 10/11 14:33 Order name: LFT's mg2 10/11 14:33 Order name: Magnesium mg2 10/11 14:33 Order name: NT PRO-BNP mg2 10/11 14:33 Order name: PT-INR mg2 10/11 14:33 Order name: Troponin (emerg Dept Use Only) mg2 10/11 14:33 Order name: UDS mg2 10/11 14:33 Order name: ETOH Level mg2 10/11 14:57 Order name: CBC with Automated Diff; Complete Time: 14:59 EDMS 03 14:58 Order name: Protime (+INR); Complete Time: 14:59 EDMS 03 15:13 Order name: Alcohol Serum/Plasma; Complete Time: 15:11 EDMS /03 15:14 Order name: Basic Metabolic Panel; Complete Time: 15:14 EDMS 06/03 15:14 Order name: Liver (Hepatic) Function; Complete Time: 15:14 EDMS 03 14:33 Order name: XRAY Chest (1 view) mg2 10/11 14:33 Order name: EKG; Complete Time: 14:34 mg2 10/11 14:33 Order name: Cardiac monitoring; Complete Time: 14:51 mg2 10/11 14:33 Order name: EKG - Nurse/Tech; Complete Time: 14:51 mg2 10/11 14:33 Order name: IV Saline Lock; Complete Time: 14:51 mg2 10/11 14:33 Order name: Labs collected and sent; Complete Time: 14:51 mg2 10/11 14:33 Order name: O2 Per Protocol; Complete Time: 14:51 mg2 10/11 14:33 Order name: O2 Sat Monitoring; Complete Time: 14:51 mg2 03 15:15 Order name: Troponin (Emerg Dept Use Only); Complete Time: 15:14 EDMS 10/11 15:15 Order name: NT PRO-BNP; Complete Time: 15:14 EDMS 03 15:15 Order name: Magnesium; Complete Time: 15:14 EDMS 03 15:25 Order name: Urine Drug Screen; Complete Time: 15:24 EDMS 03 15:40 Order name: RAD; Complete Time: 15:45 EDMS EC:27 Rate is 102 beats/min. Rhythm is regular, Sinus tachycardia. QRS [place] is Normal. DE kb interval is normal at 118 msec. QRS interval is normal at 88 msec. QT interval is normal at 334 msec. Clinical impression: Sinus tachycardia. Interpreted by me. Reviewed by me. Administered Medications: 15:15 Drug: NS 0.9% 1000 ml Route: IV; Rate: 1000 ml; Site: right hand; mg2 16:22 Follow up: Response: No adverse reaction; IV Status: Completed infusion; IV Intake: mg2 1000ml Disposition: 10/12 07:42 Co-signature as Attending Physician, Jeevan Shaw MD I agree with the assessment and nehemias plan of care. Disposition: 10/11/18 15:36 Discharged to Home. Impression: Alcohol abuse with intoxication. - Condition is Stable. - Discharge Instructions: Alcohol Intoxication, [id number], Alcohol Abuse and Nutrition. - Medication Reconciliation Form, Thank You Letter, Antibiotic Education, Prescription Opioid Use, Work release form form. - Follow up: Emergency Department; When: As needed; Reason: Worsening of condition. Follow up: Private Physician; When: 2 - 3 days; Reason: Recheck today's complaints, Continuance of care, Re-evaluation by your physician. Signatures: Dispatcher [employer] EDMS Delisa Alonzo, MATERIAL REQUIREMENTS PLANNING MANAGER-C MATERIAL REQUIREMENTS PLANNING MANAGER-Jeevan Clark MD MD cha Gardose, Michele, RN RN mg2 Corrections: (The following items were deleted from the chart) 10/11 16:24 15:36 10/11/2018 15:36 Discharged to Home. Impression: Alcohol abuse with intoxication. mg2 Condition is Stable. Discharge Instructions: Alcohol Intoxication, [id number], Alcohol Abuse and Nutrition. Forms are Medication Reconciliation Form, Thank You Letter, Antibiotic Education, Prescription Opioid Use. Follow up: Emergency Department; When: As needed; Reason: Worsening of condition. Follow up: Private Physician; When: 2 - 3 days; Reason: Recheck today's complaints, Continuance of care, Re-evaluation by your physician. kb
--- NOTE | 2018-10-11 15:37 | ER ---
Nurse's Notes [facility] Name: Srini Simpson Age: 33 yrs Sex: Male : 1985 Arrival Date: 10/11/2018 Time: 14:13 Bed 5 Private MD: Diagnosis: Alcohol abuse with intoxication Presentation: 10/11 14:34 Presenting complaint: EMS states: patient was here yesterday for the same complaint, mg2 chest pain and shortness of breath. just recently and had 4 of 20 OZ of beer in the last hour. was given Zofran, 2 sprays of nitroglycerin and 250 ml of NS. BGL of 127 mg/dl. Transition of care: patient was not received from another setting of care. Onset of symptoms was October 10, 2018. Risk Assessment: Do you want to hurt yourself or someone else? Patient reports no desire to harm self or others. Initial Sepsis Screen: Does the patient meet any 2 criteria? No. Patient's initial sepsis screen is negative. Does the patient have a suspected source of infection? No. Patient's initial sepsis screen is negative. Care prior to arrival: None. 14:34 Method Of Arrival: EMS: [facility] mg2 14:34 Acuity: CHRISTINE 3 mg2 Historical: - Allergies: 14:42 No Known Allergies; mg2 - Home Meds: 14:42 metoprolol tartrate 50 mg Oral tab 1 tab 2 times per day [Active]; Valium 10 mg Oral mg2 tab 1 tab 2 times per day [Active]; - PMHx: 14:42 Anxiety; Depression; Hypertension; Pyloric Stenosis; mg2 - Immunization history:: Flu vaccine is up to date. - Social history:: Smoking status: Patient uses tobacco products, smokes one-half pack cigarettes per day, Patient uses alcohol. - Ebola Screening: : No symptoms or risks identified at this time. Screenin:22 Abuse screen: Denies threats or abuse. Denies injuries from another. Nutritional mg2 screening: No deficits noted. Tuberculosis screening: No symptoms or risk factors identified. Fall Risk IV access (20 points). Assessment: 15:23 General: Appears in no apparent distress. comfortable, Behavior is calm, cooperative. mg2 Pain: Complains of pain in chest Pain does not radiate. Pain currently is 1 out of 10 on a pain scale. Quality of pain is described as aching, Pain began gradually, 1 day ago. Is intermittent. Neuro: Level of Consciousness is awake, alert, obeys commands, Oriented to person, place, time, situation. Cardiovascular: Capillary refill is > 3 seconds Patient's skin is warm and dry. Respiratory: Airway is patent Respiratory effort is even, unlabored, Respiratory pattern is regular, symmetrical. GI: No signs and/or symptoms were reported involving the gastrointestinal system. : No signs and/or symptoms were reported regarding the genitourinary system. EENT: No signs and/or symptoms were reported regarding the EENT system. Derm: Skin is intact, is healthy with good turgor, Skin is pink, warm \T\ dry. normal. Musculoskeletal: Circulation, motion, and sensation intact. Capillary refill < 3 seconds. 15:56 Reassessment: Patient appears in no apparent distress at this time. Patient and/or mg2 family updated on plan of care and expected duration. Pain level reassessed. Patient is alert, oriented x 3, equal unlabored respirations, skin warm/dry/pink. parient is for discharge after iv fluid is consumed. friends are coming to come and pick him up. 16:22 Reassessment: Patient states feeling better. Patient states symptoms have improved. mg2 Vital Signs: 14:39 BP 146 / 91; Pulse 98; Resp 18; Temp 98.6(TE); Pulse Ox 92% on R/A; Weight 81.65 kg; mg2 Height 5 ft. 7 in. (170.18 cm); Pain 2/10; 15:25 BP 140 / 85; Pulse 106; Resp 18; Temp 98.5; Pulse Ox 97% on 2 lpm NC; mg2 14:39 Body Mass Index 28.19 (81.65 kg, 170.18 cm) mg2 ED Course: 14:13 Patient arrived in ED. mg2 14:15 Bed in low position. Call light in reach. Side rails up X 1. Side rails up X2. Warm jp3 blanket given. 14:15 monitoring analyst on. Pulse ox on. NIBP on. jp3 14:22 EKG done, by demonstrator sewing techniques. reviewed by Gregorio Us MD. at1 14:30 Initial lab(s) drawn, by az, sent to lab. Urine collected: clean catch specimen, clear, jp3 renato colored. Maintain EMS IV. Dressing intact. Good blood return noted. Site clean \T\ dry. Gauge \T\ site: 20-gauge in Right Hand . IV is intact, with good blood return. Oxygen administration via nasal cannula \T\ 2L/min Response to oxygen therapy: symptoms improved. 14:32 Nakul Bianchi, RN is Primary Nurse. mg2 14:36 Triage completed. mg2 14:42 Arm band placed on. mg2 14:51 ETOH Level Sent. jp3 14:51 UDS Sent. jp3 14:51 Basic Metabolic Panel Sent. jp3 14:51 CBC with Diff Sent. jp3 14:51 LFT's Sent. jp3 14:51 Magnesium Sent. jp3 14:51 NT PRO-BNP Sent. jp3 14:51 PT-INR Sent. jp3 14:51 Troponin (emerg Dept Use Only) Sent. jp3 14:58 Delisa Alonzo FNP-C is [facility]. kb 14:58 Jeevan Shaw MD is Attending Physician. kb 15:24 No provider procedures requiring assistance completed. mg2 16:23 IV discontinued, intact, bleeding controlled, No redness/swelling at site. Pressure mg2 dressing applied. Administered Medications: 15:15 Drug: NS 0.9% 1000 ml Route: IV; Rate: 1000 ml; Site: right hand; mg2 16:22 Follow up: Response: No adverse reaction; IV Status: Completed infusion; IV Intake: mg2 1000ml Intake: 16:22 IV: 1000ml; Total: 1000ml. mg2 Outcome: 15:36 Discharge ordered by . kb 16:23 Discharged to home ambulatory. mg2 16:23 Condition: stable 16:23 Discharge instructions given to patient, Instructed on discharge instructions, follow up and referral plans. Demonstrated understanding of instructions, follow-up care. 16:24 Patient left the ED. mg2 Signatures: Delisa Alonzo FNP-C FINDING FASTENER-Ckb Kriss Moe, potato chip cooker machine EKG Tat1 Nakul Bianchi, RN RN mg2 Vipul Barboza jp3 Corrections: (The following items were deleted from the chart) 14:37 14:34 Presenting complaint: EMS states: patient was here yesterday for the same mg2 complaint, chest pain and shortness of breath. just recently and had 4 of 20 OZ of beer in the last hour. was given Zofran, 2 sprays of nitroglycerin and 250 ml of NS. mg2
--- NOTE | 2018-10-11 15:38 | RAD REPORT ---
EXAM DESCRIPTION: Lindsay Single View10/11/2018 3:19 pm CLINICAL HISTORY: Chest pain COMPARISON: October 09, 2018 FINDINGS: The lungs appear clear of acute infiltrate. The heart is normal size IMPRESSION: No acute abnormalities displayed
[2018-10-11 16:56] VITALS: BP 140/85; TEMP 98.5; O2SAT 97
--- NOTE | 2018-10-12 11:38 | EKG ---
Test Date: 2018-10-11 Test Time: 14:18:20 Tribal Delegate: KOMAL MEASUREMENT RESULTS: Intervals: Rate: 102 WY: 118 QRSD: 88 QT: 334 QTc: 435 [place]: P: 49 WY: 118 QRS: 71 T: 20 INTERPRETIVE STATEMENTS: Sinus tachycardia Otherwise normal ECG Compared to ECG 10/09/2018 12:20:02 Sinus rhythm no longer present Electronically Signed On 10-12-18 11:36:05 CDT by Austin Martinez
== END 2018-10-11 16:24 | disposition home or self-care (01) ==
LOC: ER 14:04
DX: F10.129 Alcohol abuse with intoxication, unspecified (principal); I10 Essential (primary) hypertension; F32.9 Major depressive disorder, single episode, unspecified; F41.9 Anxiety disorder, unspecified; F17.210 Nicotine dependence, cigarettes, uncomplicated
CPT/HCPCS: 36415; 71045; 80048; 80076; 80307; 80320; 83735; 83880; 84484; 85025; 85610; 93005; 96360; 99285

== ENCOUNTER 2019-02-20 16:26 | Emergency (ER) | payer SELFPAY ==
[2019-02-20] MEDS ORDERED: NA CHLORIDE 0.9% 1,000 ML ONE (17:06)
[2019-02-20] MEDS ORDERED: ONDANSETRON 4 MG/2 ML VIAL ONE (17:06)
[2019-02-20] MEDS ORDERED: FAMOTIDINE 20 MG/2 ML VIAL IV ONE (17:19)
[2019-02-20 17:28] LABS: Absolute Lymphocytes (CBC) 2.1 K/uL (0.7-4.9); Basophils % 0.8 % (0-1.3); Hematocrit 43.2 % (39.6-49.0); MPV 7.8 fL (7.6-11.3); RBC Red Blood Cell Count 4.84 M/uL (4.33-5.43)
[2019-02-20 17:33] LABS: Protime INR 1.02
[2019-02-20] MEDS ORDERED: LORazepam 2 MG/ML VIAL ONE (17:40)
[2019-02-20 17:43] LABS: ALT/SGPT 50 U/L (12-78); AST/SGOT 44 U/L (15-37); Albumin 3.9 g/dL (3.4-5.0); Alkaline Phosphatase 79 U/L (45-117); BUN Blood Urea Nitrogen 11 mg/dL (7-18); Bicarbonate 31 mmol/L (21-32); Bilirubin Direct < 0.1 mg/dL (0-0.2); Bilirubin Total 0.3 mg/dL (0.2-1.0); Glucose Level 100 mg/dL (74-106); Potassium 3.5 mmol/L (3.5-5.1); Protein, Total 7.8 g/dL (6.4-8.2); Sodium Level 139 mmol/L (136-145)
[2019-02-20 17:45] LABS: Urine Blood TRACE (NEG); Urine Glucose NEGATIVE (NEG); Urine Protein TRACE (NEG); Urine pH 5.5 (5.0-7.0)
[2019-02-20 17:52] LABS: Barbiturates NEGATIVE (NEGATIVE); Benzodiazepines POSITIVE (NEGATIVE); Cocaine NEGATIVE (NEGATIVE); METHAMPHETAM NEGATIVE (NEGATIVE); Methadone NEGATIVE (NEGATIVE); Opiates NEGATIVE (NEGATIVE); Phencyclidine NEGATIVE (NEGATIVE); THC Cannibis NEGATIVE (NEGATIVE)
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
--- NOTE | 2019-02-20 18:37 | EDPHYS ---
Physician Documentation [facility] Name: Srini Simpson Age: 33 yrs Sex: Male : 1985 Arrival Date: 02/20/2019 Time: 16:27 Bed 16 Private MD: Vic Funes T ED Physician Paresh Soni HPI: 02/20 17:12 This 33 yrs old Male presents to ER via Ambulatory with complaints of kdr substance abuse. 17:14 The patient's is reported to have been killed last Thursday and he has been drinking kdr beer since - states he had drank more than 20 24 oz beers since. Now he feels poorly physically in addition to psychologically. He denies feeling suicidal.. Onset: The symptoms/episode began/occurred suddenly, 2 day(s) ago. Severity of symptoms: At their worst the symptoms were moderate severe incapacitating just prior to arrival, in the emergency department the symptoms are unchanged. The patient has not experienced similar symptoms in the past. The patient has not recently seen a physician. Historical: - Allergies: 16:43 No Known Allergies; la1 - PMHx: 16:43 Anxiety; Depression; Hypertension; Pyloric Stenosis; la1 - Immunization history:: Adult Immunizations up to date. - Social history:: Smoking status: Patient uses tobacco products, smokes one-half pack cigarettes per day. - Ebola Screening: : No symptoms or risks identified at this time. ROS: 17:14 Constitutional: Negative for fever, chills, and weight loss - the patient has general kdr c/o malaiase and discomfort Eyes: Negative for injury, pain, redness, and discharge, ENT: Negative for injury, pain, and discharge, Neck: Negative for injury, pain, and swelling, Cardiovascular: Negative for chest pain, palpitations, and edema, Respiratory: Negative for shortness of breath, cough, wheezing, and pleuritic chest pain, Back: Negative for injury and pain, : Negative for injury, bleeding, discharge, and swelling, MS/Extremity: Negative for injury and deformity, Skin: Negative for injury, rash, and discoloration, Neuro: Negative for headache, weakness, numbness, tingling, and seizure activity. Psych: Negative for depression, anxiety, suicide ideation, homicidal ideation, and hallucinations, Allergy/Immunology: Negative for hives, rash, and allergies, Endocrine: Negative for neck swelling, polydipsia, polyuria, polyphagia, and marked weight changes, Hematologic/Lymphatic: Negative for swollen nodes, abnormal bleeding, and unusual bruising. 17:14 Abdomen/GI: Positive for abdominal pain, nausea, Negative for constipation, abdominal cramps, abdominal distension, anorexia, dysphagia, hematemesis, black/tarry stool, rectal pain, rectal bleeding, bowel incontinence. Exam: 17:14 Constitutional: This is a well developed, well nourished patient who is awake, alert, kdr and in no acute distress. Head/Face: Normocephalic, atraumatic. Eyes: Pupils equal round and reactive to light, extra-ocular motions intact. Lids and lashes normal. Conjunctiva and sclera are non-icteric and not injected. Cornea within normal limits. Periorbital areas with no swelling, redness, or edema. Neck: Trachea midline, no thyromegaly or masses palpated, and no cervical lymphadenopathy. Supple, full range of motion without nuchal rigidity, or vertebral point tenderness. No Meningismus. Chest/axilla: Normal chest wall appearance and motion. Nontender with no deformity. No lesions are appreciated. Cardiovascular: Regular rate and rhythm with a normal S1 and S2. No gallops, murmurs, or rubs. Normal PMI, no JVD. No pulse deficits. Respiratory: Lungs have equal breath sounds bilaterally, clear to auscultation and percussion. No rales, rhonchi or wheezes noted. No increased work of breathing, no retractions or nasal flaring. Back: No spinal tenderness. No costovertebral tenderness. Full range of motion. Skin: Warm, dry with normal turgor. Normal color with no rashes, no lesions, and no evidence of cellulitis. MS/ Extremity: Pulses equal, no cyanosis. Neurovascular intact. Full, normal range of motion. Neuro: Awake and alert, GCS 15, oriented to person, place, time, and situation. Cranial nerves II-XII grossly intact. Motor strength 5/5 in all extremities. Sensory grossly intact. Cerebellar exam normal. Normal gait. Psych: Awake, alert, with orientation to person, place and time. Behavior, mood, and affect are within normal limits. 17:14 Abdomen/GI: Inspection: abdomen appears normal, obese Bowel sounds: active, all quadrants, diminished, Palpation: soft, mild abdominal tenderness, in the right upper quadrant, rebound tenderness, is not appreciated, voluntary guarding, is not appreciated, involuntary guarding, is not appreciated. Vital Signs: 16:43 BP 151 / 102; Pulse 108; Resp 16; Temp 97.8; Pulse Ox 100% on R/A; Weight 88.45 kg; la1 Height 5 ft. 7 in. (170.18 cm); 18:00 BP 137 / 81; Pulse 89; Resp 16; Pulse Ox 93% ; jl7 19:34 BP 133 / 82; Pulse 86; Resp 15; Temp 98; Pulse Ox 100% on R/A; rv 16:43 Body Mass Index 30.54 (88.45 kg, 170.18 cm) la1 MDM: 17:14 Data reviewed: vital signs, nurses notes, lab test result(s), radiologic studies. kdr Counseling: I had a detailed discussion with the patient and/or guardian regarding: the historical points, exam findings, and any diagnostic results supporting the discharge/admit diagnosis, lab results, radiology results. 18:36 Patient medically screened. kdr 02/20 16:49 Order name: Acetaminophen; Complete Time: 18:06 kdr 02/20 16:49 Order name: Basic Metabolic Panel; Complete Time: 18:06 kdr 02/20 16:49 Order name: CBC with Diff; Complete Time: 18:06 kdr 02/20 16:49 Order name: ETOH Level; Complete Time: 18:06 kdr 02/20 16:49 Order name: Hepatic Function; Complete Time: 18:06 kdr 02/20 16:49 Order name: PT-INR; Complete Time: 18:06 kdr 02/20 16:49 Order name: Ptt, Activated; Complete Time: 18:06 kdr 02/20 16:49 Order name: Salicylate; Complete Time: 18:06 kdr 02/20 16:49 Order name: Urine Drug Screen; Complete Time: 18:06 kdr 02/20 17:43 Order name: Urine Dipstick--Ancillary (enter results); Complete Time: 18:06 eb 02/20 16:49 Order name: EKG; Complete Time: 16:51 kdr 02/20 16:49 Order name: EKG - Nurse/Tech; Complete Time: 18:00 kdr 10/13 16:49 Order name: IV Saline Lock; Complete Time: 17:13 kdr 02/20 16:49 Order name: Labs collected and sent; Complete Time: 17:13 kdr 02/20 16:49 Order name: Urine Dipstick-Ancillary (obtain specimen); Complete Time: 18:00 kdr Administered Medications: 17:15 Drug: Zofran 4 mg Route: IVP; Site: left antecubital; 7 17:30 Follow up: Response: No adverse reaction 7 17:15 Drug: NS 0.9% 1000 ml Route: IV; Rate: 1 bolus; Site: left antecubital; jl7 18:01 Follow up: Response: No adverse reaction; IV Status: Completed infusion; IV Intake: [facility] 1000ml 17:53 Drug: Pepcid 20 mg Route: IVP; Site: left antecubital; 7 19:25 Follow up: Response: No adverse reaction [facility] 17:55 Drug: Ativan 1 mg Route: IVP; Site: left antecubital; 7 18:30 Follow up: Response: No adverse reaction; Marked relief of symptoms [facility] Disposition: 02/20/19 18:36 Discharged to Home. Impression: Grief Reaction, Substance abuse (ETOH). - Condition is Stable. - Discharge Instructions: Alcohol Intoxication, Uaxa-[id number]-[id number], Complicated Grieving. - Medication Reconciliation Form, Thank You Letter form. - Follow up: Vic Funes MD; When: 2 - 3 days; Reason: If symptoms return, Further diagnostic work-up, Recheck today's complaints, Continuance of care, Re-evaluation by your physician. - Problem is new. - Symptoms have improved. Signatures: Dispatcher [employer] EDMS Paresh Soni MD MD [facility] Minh Cannon RN RN la1 Mahesh Ng RN RN jl7 Thanh Beasley RN RN rv Corrections: (The following items were deleted from the chart) 19:35 18:36 02/20/2019 18:36 Discharged to Home. Impression: Grief Reaction, Substance abuse rv (ETOH). Condition is Stable. Forms are Medication Reconciliation Form, Thank You Letter, Antibiotic Education, Prescription Opioid Use. Follow up: Vic Funes; When: 2 - 3 days; Reason: If symptoms return, Further diagnostic work-up, Recheck today's complaints, Continuance of care, Re-evaluation by your physician. Problem is new. Symptoms have improved. kdr
[2019-02-20 19:53] VITALS: BP 133/82; TEMP 98; O2SAT 100
--- NOTE | 2019-02-21 10:03 | EKG ---
Test Date: 2019-02-20 Test Time: 17:26:59 Lead Systems Engineer: JUANITA MEASUREMENT RESULTS: Intervals: Rate: 93 SC: 124 QRSD: 86 QT: 366 QTc: 455 [place]: P: 53 SC: 124 QRS: 81 T: 22 INTERPRETIVE STATEMENTS: Normal sinus rhythm Normal ECG Compared to ECG 10/11/2018 14:18:20 Sinus tachycardia no longer present Electronically Signed On 02-21-19 10:02:23 CDT by Junior Mike
== END 2019-02-20 19:35 | disposition home or self-care (01) ==
LOC: ER 16:26
DX: F43.20 Adjustment disorder, unspecified (principal); F17.210 Nicotine dependence, cigarettes, uncomplicated
CPT/HCPCS: 36415; 80048; 80076; 80307; 80320; 80329; 81003; 85025; 85610; 85730; 93005; 96361; 96374; 96375; 99284; J2405; J7030

== ENCOUNTER 2019-09-06 06:58 | Emergency (ER) | payer SELFPAY ==
--- OUTSIDE RECORDS SUMMARY | 2019-09-06 07:00 | XMS REPORT ---
:1985 Author Organization [facility] t Address [address] [place] [address] Care Team Providers Name Role Phone Joseph GARCIA Unavailable Unavailable Problems This patient has no known problems. Allergies, Adverse Reactions, Alerts This patient has no known allergies or adverse reactions. Medications This patient has no known medications. Results Test Description Test Time Test Comments Text Results Atomic Results Result Comments [facility], [facility], 2017-03-17 14:45:00 LAURA Tapia REPORT SPECT PROCEDURE: Rest/Stress M YOCARDIAL PERFUSION SPECT with treadmi ll\XA9\ CPT CODE: 48832 SIOMARA CATION: Chest pain HISTORY: Cardiac risk factors: Hypert ension. Other cardiovascular history : No reported CAD. Recent cardiac symptoms: Chest pain. Curren t cardiovascular-related medic ations: Metoprolol. PROTOCOL: 1 0.5 mCi of Tc-99m sestamibi was inje cted iv at rest, and SPECT ([employer] Jeeran) images were obtained. Also, 31.2 mCi of Tc-99m sestamibi was inje cted iv approximately one minute jodi or to peak exercise, and gated SPE CT images were obtained. PRELIMINARY STRESS TEST DATA FROM NONINVASIVE CARDIOLOGY: The patient exe rcised for 8 minutes 31 seconds usi ng the Brian treadmill protocol. He art rate was 99 beats/min at rest; pe ak heart rate was 148 beats/min (78% of MPHR). BP was 150/103 mmHg at rest; peak BP was 175/90 mmHg. Exercise wa s stopped for fatigue. The patient exp erienced chest tightness; treatment w as not required. Preliminary ECG ev aluation revealed sinus rhythm at res t and no ischemic changes with stress . (Final ECG interpretation and other stress and monitoring data are repo rted separately by Cardiology.) IMAGING FINDINGS: Study quali ty is good. Images obtained after rest and stress injections show murray l LV activity. LV and RV volumes appear normal. Gated images obtaine d at rest after stress injection show normal LV wall motion and thickening. QGS LVEF is 63%. IMPRESSION: 1. No rmal study. 2. Adequate exercise stress. 3. Normal myocardial perfusi on. 4. Normal resting LV function. 5. Normal extracardiac tracer distribution. 6. No [facility] for comparison. NO NINVASIVE RISK STRATIFICATION: The abo ve findings are considered low risk (<1% annual mortality rate) based on the following criterion:- Normal or small myocardial perfusion defect at rest or with stress(JACC. 2012;59(9):857-81.) Signed: Ignacio Ruvalcabaort Verified Da te/Time: 03/17/2017 14:45:11 Reading Location: [place] [id number] ading Room GLOBIN A1C 2017-03-17 08:29:00 Test Item Value Reference Range Comments HEMOGLOBIN A1C (BEAKER) (test code = 368) 5.5 % 4.3-6. 1 CREATINE KINASE (CK), TOTAL AND [id number] 02:45:00 Test Item Value Reference Range Comments CREATINE KINASE TOTAL (BEAKER) (test code = 380) 34 U/L 29-200 CREATINE KINASE-MB (BEAKER) (test code = 750) 0.4 ng/mL 0. 0-6.6 CREATINE KINASE-MB INDEX (BEAKER) (test code = 1.2 % 395) CK-MB Reference Range:<6.7 Normal6.7-10.0 Borderline>10.0 AbnormalTROPONIN [id number] 02:45:00 Test Item Value Reference Range Comments TROPONIN I (BEAKER) (test code = 397) < ng/mL 0.00-0.03 Troponin I (TnI) levels [...] and persistent tachyarrhythmia.RAD, CHEST, 1 VIEW, NON [id number] 20:40:00Reason for exam:->chest painShould this be performed at the bedside?->YesFINAL REPORT EXAMINATION: AP PORTABLE CHEST RADIOGRAPH CLINICAL INDICATION:Chest pain IMPRESSION: Compared with 04/30/2016. No evidence of focal lung consolidation, pulmonary edema or pleural effusion. The heart size is normal. Mediastinal contours are sharp. No evidence of an acute osseous abnormality or pneumothorax. Signed: Igor Castle MDReport Verified Date/Time: 03/16/2017 20:40:21 Reading Location: [address] Reading Room B-TYPE NATRIURETIC FACTOR (BNP)2017-03-16 20:30:00 Test Item Value Reference Range Comments B-TYPE NATRIURETIC PEPTIDE (BEAKER) (test code = < pg/mL 0-100 700) COMPREHENSIVE METABOLIC [id number] 20:30:00 Test Item Value Reference Range Comments TOTAL PROTEIN (BEAKER) 7.6 gm/dL 6.0-8.3 Specimen slightly (test code = 770) hemolyzed ALBUMIN (BEAKER) (test 4.0 g/dL 3.5-5.0 Specimen slightly code = 1145) hemolyzed ALKALINE PHOSPHATASE 70 U/L 40-150 (BEAKER) (test code = 346) BILIRUBIN TOTAL (BEAKER) 0.4 mg/dL 0.2-1.2 Specime n slightly (test code = 377) hemolyzed SODIUM (BEAKER) (test 140 meq/L 136-145 code = 381) POTASSIUM (BEAKER) (test 4.9 meq/L 3.5-5.1 Specime n slightly code = 379) hemolyzed CHLORIDE (BEAKER) (test 102 meq/L 98-107 code = 382) CO2 (BEAKER) (test code = 29 meq/L 22-29 355) BLOOD UREA NITROGEN 7 mg/dL 7-21 (BEAKER) (test code = 354) CREATININE (BEAKER) (test 0.85 mg/dL 0.57-1.25 Specim en slightly code = 358) hemolyzed GLUCOSE RANDOM (BEAKER) 98 mg/dL 70-105 (test code = 652) CALCIUM (BEAKER) (test 8.9 mg/dL 8.4-10.2 code = 697) AST (SGOT) (BEAKER) (test 23 U/L 5-34 Specim en slightly code = 353) hemolyzed ALT (SGPT) (BEAKER) (test 21 U/L 6-55 Specim en slightly code = 347) hemolyzed EGFR (BEAKER) (test code mL/min/1.73 sq m INSUF FICIENT CLINICAL DATA = 1092) TO CALCULATE EST IMATED GFR. CREATINE KINASE (CK), TOTAL AND [id number] 20:28:00 Test Item Value Reference Range Comments CREATINE KINASE TOTAL (BEAKER) (test code = 380) 50 U/L 29-200 CREATINE KINASE-MB (BEAKER) (test code = 750) 0.5 ng/mL 0. 0-6.6 CREATINE KINASE-MB INDEX (BEAKER) (test code = 1.0 % 395) CK-MB Reference Range:<6.7 Normal6.7-10.0 Borderline>10.0 AbnormalTROPONIN [id number] 20:28:00 Test Item Value Reference Range Comments TROPONIN I (BEAKER) (test code = 397) < ng/mL 0.00-0.03 Troponin I (TnI) levels [...] failure, acidosis, acute neurological disease, and persistent tachyarrhythmia.[id number] 20:21:00 Test Item Value Reference Range Comments MAGNESIUM (BEAKER) (test code = 2.2 mg/dL 1.6-2.6 Specimen slightly hemolyzed 627) [id number] 20:21:00 Test Item Value Reference Range Comments PHOSPHORUS (BEAKER) (test code 3.9 mg/dL 2.3-4.7 S pecimen slightly hemolyzed = 604) LIPID [id number] 20:21:00 Test Item Value Reference Range Comments TRIGLYCERIDES (BEAKER) (test 212 mg/dL Spe cimen slightly hemolyzed code = 540) CHOLESTEROL (BEAKER) (test code 239 mg/dL Specimen slightly hemolyzed = 631) HDL CHOLESTEROL (BEAKER) (test 35 mg/dL code = 976) LDL CHOLESTEROL CALCULATED 162 mg/dL (BEAKER) (test code = 633) Triglyceride Reference Range: Low Risk <150 Borderline 150-199 High Risk 200-499 Very High Risk >=500Cholesterol Reference Range: Low Risk <200 Borderline 200-239 High Risk >240HDL Cholesterol Reference Range: Low Risk >=60 High Risk <40LDL Cholesterol Reference Range: Optimal <100 Near Optimal 100-129 Borderline 130-159 High 160-189 Very High >=190PROTHROMBIN [id number] 20:07:00 Test Item Value Reference Range Comments PROTIME (BEAKER) (test code = 759) 13.0 seconds 11.7-14.7 INR (BEAKER) (test code = 370) 1.0 <=5.9 RECOMMENDED COUMADIN/WARFARIN INR THERAPY RANGESSTANDARD DOSE: 2.0 - 3.0 Includes: PROPHYLAXIS forvenous thrombosis, systemic embolization; TREATMENT for venous thrombosis and/or pulmonary embolus.HIGH RISK: Target INR is 2.5-3.5 for patients with mechanical heart valves.[id number] 20:07:00 Test Item Value Reference Range Comments PARTIAL THROMBOPLASTIN TIME (BEAKER) (test code 26.9 seconds 22.5-36.0 = 760) CBC W/PLT COUNT & AUTO [id number] 19:57:00 Test Item Value Reference Range Comments WHITE BLOOD CELL COUNT (BEAKER) (test code = 8.3 K/ L 3.5 -10.5 775) RED BLOOD CELL COUNT (BEAKER) (test code = 761) 5.41 M/ L 4.63-6.08 HEMOGLOBIN (BEAKER) (test code = 410) 16.2 GM/DL 13.7-17.5 HEMATOCRIT (BEAKER) (test code = 411) 48.8 % 40.1-51.0 MEAN CORPUSCULAR VOLUME (BEAKER) (test code = 90.2 fL 79 .0-92.2 753) MEAN CORPUSCULAR HEMOGLOBIN (BEAKER) (test code 29.9 pg 25.7-32.2 = 751) MEAN CORPUSCULAR HEMOGLOBIN CONC (BEAKER) (test 33.2 GM/DL 32.3-36.5 code = 752) RED CELL DISTRIBUTION WIDTH (BEAKER) (test code 13.1 % 11.6-14.4 = 412) PLATELET COUNT (BEAKER) (test code = 756) 253 K/CU MM 150-45 0 MEAN PLATELET VOLUME (BEAKER) (test code = 754) 10.5 fL 9.4-12.4 NUCLEATED RED BLOOD CELLS (BEAKER) (test code = 0 /100 WBC 0-0 413) NEUTROPHILS RELATIVE PERCENT (BEAKER) (test code 45 % = 429) LYMPHOCYTES RELATIVE PERCENT (BEAKER) (test code 32 % = 430) MONOCYTES RELATIVE PERCENT (BEAKER) (test code = 14 % 431) EOSINOPHILS RELATIVE PERCENT (BEAKER) (test code 7 % = 432) BASOPHILS RELATIVE PERCENT (BEAKER) (test code = 1 % 437) NEUTROPHILS ABSOLUTE COUNT (BEAKER) (test code = 3.77 K/ L 1.78-5.38 670) LYMPHOCYTES ABSOLUTE COUNT (BEAKER) (test code = 2.66 K/ L 1.32-3.57 414) MONOCYTES ABSOLUTE COUNT (BEAKER) (test code = 1.16 K/ L 0 .30-0.82 415) EOSINOPHILS ABSOLUTE COUNT (BEAKER) (test code = 0.59 K/ L 0.04-0.54 416) BASOPHILS ABSOLUTE COUNT (BEAKER) (test code = 0.08 K/ L 0 .01-0.08 417) IMMATURE GRANULOCYTES-RELATIVE PERCENT (BEAKER) 1 % 0-1 (test code = 2801)
[2019-09-06 07:39] LABS: Absolute Lymphocytes (CBC) 1.9 K/uL (0.7-4.9); Basophils % 1.1 % (0-1.3); Hematocrit 45.6 % (39.6-49.0); Lymphocytes % 26.1 % (15.3-44.8); RBC Red Blood Cell Count 5.18 M/uL (4.33-5.43)
[2019-09-06 07:52] LABS: BUN Blood Urea Nitrogen 13 mg/dL (7-18); Bicarbonate 28 mmol/L (21-32); Glucose Level 82 mg/dL (74-106); Potassium 3.8 mmol/L (3.5-5.1); Sodium Level 141 mmol/L (136-145)
[2019-09-06] MEDS ORDERED: NA CHLORIDE 0.9% 1,000 ML ONE (07:57)
[2019-09-06] MEDS ORDERED: MECLIZINE HCL 12.5 MG TAB ONE (07:57)
[2019-09-06] MEDS ORDERED: METOCLOPRAMIDE 10 MG/2mL INJ ONE (07:57)
[2019-09-06] MEDS ORDERED: DIPHENHYDRAMINE 50 MG/ML VIAL ONE (07:57)
--- NOTE | 2019-09-06 08:12 | RAD REPORT ---
EXAM DESCRIPTION: CT - Head Brain Wo Cont - 09/06/2019 7:37 am CLINICAL HISTORY: Dizziness;Headache COMPARISON: Head Brain Wo Cont dated 10/28/2016 TECHNIQUE: Axial 5 mm thick images of the head were obtained without IV contrast. All CT scans are performed using dose optimization technique as appropriate and may include automated exposure control or mA/KV adjustment according to patient size. FINDINGS: No intracranial hemorrhage, mass, edema or shift of mid-line structures. No acute infarcti on changes seen. No abnormal extra-axial fluid collections. Ventricles are normal. Mastoid air cells are clear. Mucosal thickening present in the left maxillary sinus and the ethmoid a ir cells. No air-fluid levels. No acute bony findings. IMPRESSION: Negative non-contrast CT head examination. Ethmoid air cell and left maxillary sinus mucosal thickening. No air-fluid levels.
--- NOTE | 2019-09-06 08:31 | ER ---
Nurse's Notes [facility] Name: Srini Simpson Age: 34 yrs Sex: Male : 1985 Arrival Date: 09/06/2019 Time: 06:58 Bed 5 Private MD: Diagnosis: Migraine;Other peripheral vertigo Presentation: 09/05 07:12 Chief complaint: Patient states: headache and dizziness started this morning on the way iw to work, has hx of migraines but this feels different, c/o sharp constant pain 5/10 to frontal area. Coronavirus screen: Proceed with normal triage. Patient denies a cough. Patient denies shortness of breath or difficulty breathing. Patient denies measured and/or subjective temperature greater than 100.4F prior to today's visit. Patient denies travel on a cruise ship or to a country the [facility] currently lists as an affected area. Patient denies contact with known and/or suspected case of COVID-19. Ebola Screen: Patient negative for fever greater than or equal to 101.5 degrees Fahrenheit, and additional compatible Ebola Virus Disease symptoms Patient denies exposure to infectious person. Patient denies travel to an Ebola-affected area in the 21 days before illness onset. No symptoms or risks identified at this time. Initial Sepsis Screen: Does the patient meet any 2 criteria? No. Patient's initial sepsis screen is negative. Does the patient have a suspected source of infection? No. Patient's initial sepsis screen is negative. Risk Assessment: Do you want to hurt yourself or someone else? Patient reports no desire to harm self or others. Onset of symptoms was September 06, 2019. 07:12 Method Of Arrival: Ambulatory iw 07:12 Acuity: CHRISTINE 3 iw Historical: - Allergies: 07:14 No Known Allergies; iw - Home Meds: 07:14 metoprolol tartrate 50 mg Oral tab 1 tab 2 times per day [Active]; Valium 10 mg Oral iw tab 1 tab 2 times per day [Active]; - PMHx: 07:14 Anxiety; Depression; Hypertension; Pyloric Stenosis; iw - Immunization history:: Adult Immunizations not up to date. - Social history:: Smoking status: Patient denies any tobacco usage or history of. Screenin:40 Abuse screen: Denies threats or abuse. Denies injuries from another. Nutritional jl7 screening: No deficits noted. Tuberculosis screening: No symptoms or risk factors identified. Fall Risk IV access (20 points). Total Martinez Fall Scale indicates No Risk (0-24 pts). Assessment: 07:20 General: Appears in no apparent distress. uncomfortable, Behavior is calm, cooperative, jl7 appropriate for age. Pain: Complains of pain in top of head Pain does not radiate. Pain currently is 5 out of 10 on a pain scale. Pain began 2 hours ago. Is continuous, Also complains of dizziness. Neuro: Level of Consciousness is awake, alert, obeys commands, Oriented to person, place, time, situation, Moves all extremities. Full function Gait is steady, Speech is normal, Facial symmetry appears normal, Reports dizziness, headache frontal area. Cardiovascular: Patient's skin is warm and dry. Respiratory: Airway is patent Respiratory effort is even, unlabored, Respiratory pattern is regular, symmetrical. GI: Patient currently denies diarrhea, nausea, vomiting. Derm: Skin is pink, warm \T\ dry. 08:33 Reassessment: Pt will be discharged once fluids are done infusing Patient denies pain jl7 at this time. Patient states feeling better. Patient states symptoms have improved. Vital Signs: 07:12 BP 137 / 87; Pulse 59; Resp 16; Temp 97.5; Pulse Ox 100% on R/A; Weight 86.18 kg; iw Height 5 ft. 7 in. (170.18 cm); Pain 5/10; 08:05 BP 102 / 78; Pulse 59; Resp 16; Pulse Ox 100% ; sv 08:49 BP 100 / 71; Pulse 56; Resp 16; Pulse Ox 98% ; sv 07:12 Body Mass Index 29.76 (86.18 kg, 170.18 cm) iw ED Course: 06:58 Patient arrived in ED. ds1 07:03 Niraj Torres PA is PHCP. jr8 07:03 Yusuf Kirk MD is Attending Physician. jr8 07:03 Mahesh Ng RN is Primary Nurse. jl7 07:13 Triage completed. iw 07:14 Arm band placed on. iw 07:20 Initial lab(s) drawn, by me, sent to lab. Inserted saline lock: 22 gauge in right jl7 antecubital area, using aseptic technique. Blood collected. 07:37 CT Head Brain wo Cont In Process Unspecified. EDMS 07:40 Patient has correct armband on for positive identification. Bed in low position. Call jl7 light in reach. Side rails up X 1. Pulse ox on. NIBP on. Warm blanket given. 08:49 No provider procedures requiring assistance completed. IV discontinued, intact, sv bleeding controlled, No redness/swelling at site. Pressure dressing applied. Administered Medications: 07:51 Drug: NS 0.9% 1000 ml Route: IV; Rate: 1000 ml; Site: right antecubital; jl7 08:51 Follow up: Response: No adverse reaction; IV Status: Order to discontinue infusion; IV jl7 Intake: 500ml 07:51 Drug: Meclizine 25 mg Route: PO; jl7 08:32 Follow up: Response: No adverse reaction; Marked relief of symptoms jl7 07:52 Drug: Benadryl 12.5 mg Route: IVP; Site: right antecubital; jl7 08:15 Follow up: Response: No adverse reaction jl7 07:55 Drug: Reglan 10 mg Route: IVP; Site: right antecubital; jl7 08:15 Follow up: Response: No adverse reaction; Pain is decreased jl7 Intake: 08:51 IV: 500ml; Total: 500ml. jl7 Outcome: 08:30 Discharge ordered by . jc 08:50 Discharged to home ambulatory. jl7 08:50 Condition: stable 08:50 Discharge instructions given to patient, Instructed on discharge instructions, follow up and referral plans. medication usage, Demonstrated understanding of instructions, follow-up care, medications, Prescriptions given X 1. 08:51 Patient left the ED. jl7 Signatures: Dispatcher [employer] EDNM Griselda Isabel, RN Ilda Brown ds1 Snow Rincon RN Niraj Yañez PA PA jr8 Mahesh Ng RN RN jl7
--- NOTE | 2019-09-06 08:31 | EDPHYS ---
Physician Documentation [facility] Name: Srini Simpson Age: 34 yrs Sex: Male : 1985 Arrival Date: 09/06/2019 Time: 06:58 Bed 5 Private MD: ED Physician Yusuf Kirk HPI: 09/05 08:04 This 34 yrs old Male presents to ER via Ambulatory with complaints of jr8 Headache. 08:04 The patient complains of pain to the top of head. The patient describes the headache as jr8 throbbing. Onset: The symptoms/episode began/occurred acutely, this morning, today. Associated signs and symptoms: Pertinent positives: dizziness. Severity of symptoms: At its worst the pain was moderate, in the emergency department the pain is unchanged. Headache History: The patient has had previous headaches and this one is different than previous episodes. The symptoms are alleviated by nothing. the symptoms are aggravated by movement. The patient has not experienced similar symptoms in the past. The patient has not recently seen a physician. Historical: - Allergies: 07:14 No Known Allergies; iw - Home Meds: 07:14 metoprolol tartrate 50 mg Oral tab 1 tab 2 times per day [Active]; Valium 10 mg Oral iw tab 1 tab 2 times per day [Active]; - PMHx: 07:14 Anxiety; Depression; Hypertension; Pyloric Stenosis; iw - Immunization history:: Adult Immunizations not up to date. - Social history:: Smoking status: Patient denies any tobacco usage or history of. ROS: 08:04 Eyes: Negative for injury, pain, redness, and discharge, ENT: Negative for injury, jr8 pain, and discharge, Neck: Negative for injury, pain, and swelling, Cardiovascular: Negative for chest pain, palpitations, and edema, Respiratory: Negative for shortness of breath, cough, wheezing, and pleuritic chest pain, Abdomen/GI: Negative for abdominal pain, nausea, vomiting, diarrhea, and constipation, Back: Negative for injury and pain, MS/Extremity: Negative for injury and deformity, Skin: Negative for injury, rash, and discoloration. 08:04 Neuro: Positive for dizziness, headache, Negative for altered mental status, gait disturbance, hearing loss, loss of consciousness, numbness, seizure activity, speech changes, syncope, near syncope, tingling, tinnitus, tremor, visual changes, weakness. Exam: 08:04 Eyes: Pupils equal round and reactive to light, extra-ocular motions intact. Lids and jr8 lashes normal. Conjunctiva and sclera are non-icteric and not injected. Cornea within normal limits. Periorbital areas with no swelling, redness, or edema. ENT: Nares patent. No nasal discharge, no septal abnormalities noted. Tympanic membranes are normal and external auditory canals are clear. Oropharynx with no redness, swelling, or masses, exudates, or evidence of obstruction, uvula midline. Mucous membranes moist. Neck: Trachea midline, no thyromegaly or masses palpated, and no cervical lymphadenopathy. Supple, full range of motion without nuchal rigidity, or vertebral point tenderness. No Meningismus. Cardiovascular: Regular rate and rhythm with a normal S1 and S2. No gallops, murmurs, or rubs. Normal PMI, no JVD. No pulse deficits. Respiratory: Lungs have equal breath sounds bilaterally, clear to auscultation and percussion. No rales, rhonchi or wheezes noted. No increased work of breathing, no retractions or nasal flaring. Abdomen/GI: Soft, non-tender, with normal bowel sounds. No distension or tympany. No guarding or rebound. No evidence of tenderness throughout. Back: No spinal tenderness. No costovertebral tenderness. Full range of motion. Skin: Warm, dry with normal turgor. Normal color with no rashes, no lesions, and no evidence of cellulitis. MS/ Extremity: Pulses equal, no cyanosis. Neurovascular intact. Full, normal range of motion. Neuro: Awake and alert, GCS 15, oriented to person, place, time, and situation. Cranial nerves II-XII grossly intact. Motor strength 5/5 in all extremities. Sensory grossly intact. Cerebellar exam normal. Normal gait. Vital Signs: 07:12 BP 137 / 87; Pulse 59; Resp 16; Temp 97.5; Pulse Ox 100% on R/A; Weight 86.18 kg; iw Height 5 ft. 7 in. (170.18 cm); Pain 5/10; 08:05 BP 102 / 78; Pulse 59; Resp 16; Pulse Ox 100% ; sv 08:49 BP 100 / 71; Pulse 56; Resp 16; Pulse Ox 98% ; sv 07:12 Body Mass Index 29.76 (86.18 kg, 170.18 cm) iw MDM: 07:03 Patient medically screened. jr8 08:24 Differential diagnosis: cerebral vascular accident, herpes zoster, hypoglycemia, jr8 hyponatremia, intracerebral hemorrhage, meningitis, migraine, neoplasm, otitis, sinusitis, subarachnoid bleed, tension headache. Data reviewed: vital signs, nurses notes, lab test result(s), radiologic studies, CT scan. Data interpreted: Pulse oximetry: on room air is 100 %. Interpretation: normal. Counseling: I had a detailed discussion with the patient and/or guardian regarding: the historical points, exam findings, and any diagnostic results supporting the discharge/admit diagnosis, lab results, radiology results, the need for outpatient follow up, a family practitioner, to return to the emergency department if symptoms worsen or persist or if there are any questions or concerns that arise at home. Response to treatment: the patient's symptoms have markedly improved after treatment. 09/05 07:21 Order name: CBC with Diff; Complete Time: 07:48 8 09/05 07:21 Order name: Basic Metabolic Panel; Complete Time: 07:56 jr8 09/05 07:22 Order name: CT Head Brain wo Cont; Complete Time: 08:23 jr8 09/05 07:21 Order name: IV; Complete Time: 07:37 jr8 Administered Medications: 07:51 Drug: NS 0.9% 1000 ml Route: IV; Rate: 1000 ml; Site: right antecubital; jl7 08:51 Follow up: Response: No adverse reaction; IV Status: Order to discontinue infusion; IV jl7 Intake: 500ml 07:51 Drug: Meclizine 25 mg Route: PO; jl7 08:32 Follow up: Response: No adverse reaction; Marked relief of symptoms jl7 07:52 Drug: Benadryl 12.5 mg Route: IVP; Site: right antecubital; jl7 08:15 Follow up: Response: No adverse reaction jl7 07:55 Drug: Reglan 10 mg Route: IVP; Site: right antecubital; jl7 08:15 Follow up: Response: No adverse reaction; Pain is decreased jl7 Disposition: 11:51 Co-signature as Attending Physician, Yusuf Kirk MD. rn Disposition: 09/06/19 08:30 Discharged to Home. Impression: Migraine, Other peripheral vertigo. - Condition is Stable. - Discharge Instructions: Migraine Headache. - Prescriptions for Meclizine 25 mg Oral Tablet - take 1 tablet by ORAL route every 8 hours As needed; 30 tablet. - Medication Reconciliation Form, Thank You Letter, Antibiotic Education, Prescription Opioid Use form. - Follow up: Private Physician; When: 5 - 6 days; Reason: Recheck today's complaints, Continuance of care, Re-evaluation by your physician. - Problem is new. - Symptoms have improved. Signatures: Dispatcher [employer] EDMS Snow Rincon RN RN iw Nieto, Roman, MD MD rn Roszak, Josh, SHAN PA jr8 Mahesh Ng RN RN jl7 Corrections: (The following items were deleted from the chart) 08:31 08:30 09/06/2019 08:30 Discharged to Home. Impression: Migraine. Condition is Stable. jr8 Forms are Medication Reconciliation Form, Thank You Letter, Antibiotic Education, Prescription Opioid Use. Follow up: Private Physician; When: 5 - 6 days; Reason: Recheck today's complaints, Continuance of care, Re-evaluation by your physician. Problem is new. Symptoms have improved. jr8 08:51 08:31 09/06/2019 08:30 Discharged to Home. Impression: Migraine; Other peripheral jl7 vertigo. Condition is Stable. Discharge Instructions: Migraine Headache. Prescriptions for Meclizine 25 mg Oral Tablet - take 1 tablet by ORAL route every 8 hours As needed; 30 tablet. and Forms are Medication Reconciliation Form, Thank You Letter, Antibiotic Education, Prescription Opioid Use. Follow up: Private Physician; When: 5 - 6 days; Reason: Recheck today's complaints, Continuance of care, Re-evaluation by your physician. Problem is new. Symptoms have improved. jr8
[2019-09-06 08:58] VITALS: TEMP 97.5
[2019-09-06 09:01] VITALS: BP 100/71; O2SAT 98
== END 2019-09-06 08:51 | disposition home or self-care (01) ==
LOC: ER 06:58
DX: G43.909 Migraine, unspecified, not intractable, without status migrainosus (principal); H81.399 Other peripheral vertigo, unspecified ear; I10 Essential (primary) hypertension; F34.1 Dysthymic disorder
CPT/HCPCS: 36415; 70450; 80048; 85025; 96361; 96374; 96375; 99284; J1200; J2765; J7030; J8597

== ENCOUNTER 2019-10-18 15:17 | Emergency (ER) | payer OTHER, SELFPAY ==
--- NOTE | 2019-10-18 16:22 | RAD REPORT ---
EXAM DESCRIPTION: RAD - Chest Single View - 10/18/2019 4:17 pm CLINICAL HISTORY: Near syncope COMPARISON: Portable October 2018 TECHNIQUE: AP portable chest image was obtained 10/18/2019 4:17 pm . FINDINGS: Lung volumes are low. No focal lung parenchymal process. Interstitial pattern is not clear ly different from comparison. Heart and vasculature are normal. No measurable pleural effusion and no pneumothorax. No acute bony abnormality seen. No acute aortic findings suspected. IMPRESSION: No acute cardiopulmonary process. No significant change from comparison.
[2019-10-18] MEDS ORDERED: NA CHLORIDE 0.9% 1,000 ML ONE (16:23)
[2019-10-18 16:45] LABS: Basophils % 0.8 % (0-1.3); Hematocrit 44.4 % (39.6-49.0); Lymphocytes % 16.7 % (15.3-44.8); MPV 9.2 fL (7.6-11.3); RBC Red Blood Cell Count 5.11 M/uL (4.33-5.43)
[2019-10-18 16:53] LABS: Protime INR 1.13
[2019-10-18 17:18] LABS: ALT/SGPT 22 U/L (12-78); AST/SGOT 17 U/L (15-37); Alkaline Phosphatase 63 U/L (45-117); BUN Blood Urea Nitrogen 17 mg/dL (7-18); Bicarbonate 26 mmol/L (21-32); Bilirubin Direct < 0.1 mg/dL (0-0.2); Bilirubin Total 0.4 mg/dL (0.2-1.0); Glucose Level 78 mg/dL (74-106); Magnesium 2.3 mg/dL (1.8-2.4); NT PRO-BNP 49 pg/mL (<125); Potassium 4.4 mmol/L (3.5-5.1); Protein, Total 7.9 g/dL (6.4-8.2); Sodium Level 137 mmol/L (136-145); Troponin (Emerg Dept Use Only) < 0.02 ng/mL (0.0-0.045)
--- NOTE | 2019-10-18 17:58 | ER ---
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 Coronavirus screen: bp Proceed with normal triage. Ebola Screen: No symptoms or risks identified at this time. Initial Sepsis Screen: Does the patient meet any 2 criteria? No. Patient's initial sepsis screen is negative. Does the patient have a suspected source of infection? No. Patient's initial sepsis screen is negative. Risk Assessment: Do you want to hurt yourself or someone else? Patient reports no desire to harm self or others. Onset of symptoms is unknown. Care prior to arrival: IV initiated. 20 GA, in the right forearm, Glucose check: 98. 15:13 Method Of Arrival: EMS: [facility] bp 15:13 Acuity: CHRISTINE 3 bp Triage Assessment: 15:17 General: Appears in no apparent distress. comfortable, Behavior is calm, cooperative, bp appropriate for age. Pain: Denies pain. EENT: No deficits noted. Neuro: Level of Consciousness is awake, alert, obeys commands, Oriented to person, place, time, situation, Appropriate for age. Cardiovascular: No deficits noted. Respiratory: No deficits noted. GI: No signs and/or symptoms were reported involving the gastrointestinal system. : No signs and/or symptoms were reported regarding the genitourinary system. Derm: No deficits noted. Musculoskeletal: No deficits noted. Historical: - Home Meds: 15:17 metoprolol tartrate 50 mg Oral tab 1 tab 2 times per day [Active]; Klonopin 1 mg Oral bp tab 1 tab 2 times per day [Active]; Effexor Oral 75 mg nightly [Active]; - PMHx: 15:17 Hypertension; Anxiety; bp - Immunization history:: Adult Immunizations up to date. - Social history:: Smoking status: Patient denies any tobacco usage or history of. Screenin:15 Abuse screen: Denies threats or abuse. Denies injuries from another. Nutritional bp screening: No deficits noted. Tuberculosis screening: No symptoms or risk factors identified. Fall Risk None identified. Assessment: 15:15 General: SEE TRIAGE NOTE. bp 16:33 Reassessment: MARGOTH MARTINEZ (GIRLFRIEND) [phone]. bp 16:34 Reassessment: IVF INFUSING, PT STATES S/S IMPROVED. bp 17:31 Reassessment: IVF COMPLETE, S/S RELIEVED. DISPO PENDING. bp 18:23 Reassessment: PT D/C HOME AMBULATORY, DX WITH DEHYDRATION. bp Vital Signs: 15:13 BP 120 / 74; Pulse 75; Resp 18; Temp 98.9; Pulse Ox 98% ; bp 16:30 BP 120 / 82; Pulse 60; Resp 16; Pulse Ox 98% ; bp 17:30 BP 121 / 72; Pulse 55; Resp 16; Pulse Ox 100% ; bp 17:45 BP 118 / 73 LA Supine (auto/reg); Pulse 61; em1 17:48 BP 128 / 86 LA Sitting (auto/reg); Pulse 65; em1 17:50 BP 133 / 87 LA Standing (auto/reg); Pulse 77; em1 ED Course: 15:13 Patient arrived in ED. bp 15:14 Triage completed. bp 15:15 Patient has correct armband on for positive identification. Placed in gown. Bed in low bp position. Call light in reach. Side rails up X2. 15:15 Maintain EMS IV. Dressing intact. Good blood return noted. Site clean \T\ dry. Gauge \T\ bp site: 20 G R FA. IV. 15:20 Arm band placed on. bp 15:26 Albert Savage NP is PHCP. pm1 15:26 Paresh Soni MD is Attending Physician. pm1 16:08 Igor Mariscal, ALTON is Primary Nurse. bp 16:17 XRAY Chest (1 view) In Process Unspecified. EDMS 18:23 No provider procedures requiring assistance completed. IV discontinued, intact, bp bleeding controlled, No redness/swelling at site. Pressure dressing applied. Administered Medications: 16:20 Drug: NS 0.9% 1000 ml Route: IV; Rate: 1000 ml; Site: right antecubital; bp 18:24 Follow up: IV Status: Completed infusion; IV Intake: 1000ml bp Intake: 18:24 IV: 1000ml; Total: 1000ml. bp Outcome: 17:57 Discharge ordered by . pm1 18:23 Discharged to home ambulatory. bp 18:23 Condition: stable 18:23 Discharge instructions given to patient, Instructed on discharge instructions, follow up and referral plans. Demonstrated understanding of instructions, follow-up care. 18:24 Patient left the ED. bp Signatures: Dispatcher [employer] Rajeev Campos em1 Albert Savage, INTERACTIVE MEDIA PROJECT MANAGER INTERACTIVE MEDIA PROJECT MANAGER pm1 Igor Mariscal, RN RN bp
--- NOTE | 2019-10-18 17:59 | EDPHYS ---
Physician Documentation [facility] Name: Srini Simpson Age: 34 yrs Sex: Male : 1985 Arrival Date: 10/18/2019 Time: 15:13 Bed 6 Private MD: ED Physician Paresh Soni HPI: 10/17 16:19 This 34 yrs old Male presents to ER via EMS with complaints of Near Syncope. pm1 16:19 The patient has experienced near-syncope, felt dizzy. Onset: The symptoms/episode pm1 began/occurred just prior to arrival. Duration: This was a single episode. 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 Just prior to the episode the patient experienced no apparent symptoms. Associated injury: The patient did not suffer any apparent associated injury. Associated signs and symptoms: Pertinent negatives: chest pain, nausea, numbness, shortness of breath, tingling, vomiting, weakness. Current symptoms: Currently, the patient is not experiencing any symptoms, the patient feels back to baseline. The patient has not experienced similar symptoms in the past. It is unknown whether or not the patient has recently seen a physician. Patient presents to the ER with complaints of near syncope and dizziness. 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 Reports hot outside. While about 20 feet up he started feeling dizziness and got the ground. Viola like everything was spinning and then he was on the ground with his friend looking down on him. Patient feels better and back to baseline. Patient has received 1000 mL of fluid from EMS. Historical: - Home Meds: 15:17 metoprolol tartrate 50 mg Oral tab 1 tab 2 times per day [Active]; Klonopin 1 mg Oral bp tab 1 tab 2 times per day [Active]; Effexor Oral 75 mg nightly [Active]; - PMHx: 15:17 Hypertension; Anxiety; bp - Immunization history:: Adult Immunizations up to date. - Social history:: Smoking status: Patient denies any tobacco usage or history of. ROS: 16:19 Constitutional: Negative for fever, chills, and weight loss, Eyes: Negative for injury, pm1 pain, redness, and discharge, ENT: Negative for injury, pain, and discharge, Neck: Negative for injury, pain, and swelling, Cardiovascular: Negative for chest pain, palpitations, and edema, Respiratory: Negative for shortness of breath, cough, wheezing, and pleuritic chest pain, Abdomen/GI: Negative for abdominal pain, nausea, vomiting, diarrhea, and constipation, Back: Negative for injury and pain, MS/Extremity: Negative for injury and deformity, Skin: Negative for injury, rash, and discoloration. 16:19 Neuro: Positive for dizziness, Negative for altered mental status, headache, numbness, tingling, weakness. Exam: 16:19 Abdomen/GI: Exam negative for acute changes, Inspection: abdomen appears normal, pm1 Palpation: abdomen is soft and non-tender, in all quadrants. 16:19 Constitutional: This is a well developed, well nourished patient who is awake, alert, and in no acute distress. Head/Face: Normocephalic, atraumatic. Eyes: Pupils equal round and reactive to light, extra-ocular motions intact. Lids and lashes normal. Conjunctiva and sclera are non-icteric and not injected. Cornea within normal limits. Periorbital areas with no swelling, redness, or edema. ENT: Nares patent. No nasal discharge, no septal abnormalities noted. Tympanic membranes are normal and external auditory canals are clear. Oropharynx with no redness, swelling, or masses, exudates, or evidence of obstruction, uvula midline. Mucous membranes moist. Neck: Trachea midline, no thyromegaly or masses palpated, and no cervical lymphadenopathy. Supple, full range of motion without nuchal rigidity, or vertebral point tenderness. No Meningismus. Chest/axilla: Normal chest wall appearance and motion. Nontender with no deformity. No lesions are appreciated. Cardiovascular: Regular rate and rhythm with a normal S1 and S2. No gallops, murmurs, or rubs. Normal PMI, no JVD. No pulse deficits. Respiratory: Lungs have equal breath sounds bilaterally, clear to auscultation and percussion. No rales, rhonchi or wheezes noted. No increased work of breathing, no retractions or nasal flaring. Abdomen/GI: Soft, non-tender, with normal bowel sounds. No distension or tympany. No guarding or rebound. No evidence of tenderness throughout. Back: No spinal tenderness. No costovertebral tenderness. Full range of motion. Skin: Warm, dry with normal turgor. Normal color with no rashes, no lesions, and no evidence of cellulitis. MS/ Extremity: Pulses equal, no cyanosis. Neurovascular intact. Full, normal range of motion. 16:19 Neuro: Orientation: is normal, Mentation: is normal, Cranial nerves: CN II- XII are normal as tested, Cerebellar function: normal finger to nose testing, heel to cast testing is normal, Motor: moves all fours, strength is normal, strength is 5/5 in all extremities, Sensation: is normal, no obvious gross deficits. Vital Signs: 15:13 BP 120 / 74; Pulse 75; Resp 18; Temp 98.9; Pulse Ox 98% ; bp 16:30 BP 120 / 82; Pulse 60; Resp 16; Pulse Ox 98% ; bp 17:30 BP 121 / 72; Pulse 55; Resp 16; Pulse Ox 100% ; bp 17:45 BP 118 / 73 LA Supine (auto/reg); Pulse 61; em1 17:48 BP 128 / 86 LA Sitting (auto/reg); Pulse 65; em1 17:50 BP 133 / 87 LA Standing (auto/reg); Pulse 77; em1 MDM: 16:18 Patient medically screened. pm1 16:19 Data reviewed: vital signs. Data interpreted: Pulse oximetry: on room air is 98 %. pm1 Interpretation: normal. 17:56 Counseling: I had a detailed discussion with the patient and/or guardian regarding: the pm1 historical points, exam findings, and any diagnostic results supporting the discharge/admit diagnosis, lab results, radiology results, the need for outpatient follow up, to return to the emergency department if symptoms worsen or persist or if there are any questions or concerns that arise at home. 10/17 15:57 Order name: Basic Metabolic Panel; Complete Time: 17:29 pm1 10/17 15:57 Order name: CBC with Diff; Complete Time: 17: pm10/17 15:57 Order name: LFT's; Complete Time: 17:29 pm1 10/17 15:57 Order name: Magnesium; Complete Time: 17:29 pm1 10/17 15:57 Order name: NT PRO-BNP; Complete Time: 17:29 pm1 10/17 15:57 Order name: PT-INR; Complete Time: 17:05 pm1 10/17 15:57 Order name: Troponin (emerg Dept Use Only); Complete Time: 17:29 pm1 10/17 15:57 Order name: XRAY Chest (1 view); Complete Time: 16:39 pm1 10/17 15:57 Order name: EKG; Complete Time: 15:58 pm1 10/17 15:57 Order name: Cardiac monitoring; Complete Time: 16:11 pm1 10/17 15:57 Order name: EKG - Nurse/Tech; Complete Time: 16:27 pm1 10/17 15:57 Order name: IV Saline Lock; Complete Time: 16:11 pm1 10/17 15:57 Order name: Labs collected and sent; Complete Time: 16:30 pm1 10/17 15:57 Order name: O2 Per Protocol; Complete Time: 16:11 pm1 10/17 15:57 Order name: O2 Sat Monitoring; Complete Time: 16:11 pm1 10/17 16:01 Order name: Orthostatic Blood Pressure; Complete Time: 17:28 pm1 Administered Medications: 16:20 Drug: NS 0.9% 1000 ml Route: IV; Rate: 1000 ml; Site: right antecubital; bp 18:24 Follow up: IV Status: Completed infusion; IV Intake: 1000ml bp Disposition: 10/18 13:36 Co-signature as Attending Physician, Paresh Soni MD I agree with the assessment and kdr plan of care. Disposition: 10/18/19 17:57 Discharged to Home. Impression: Syncope and collapse, Dehydration. - Condition is Stable. - Discharge Instructions: Dehydration, Adult, Near-Syncope, Rehydration, Adult. - Medication Reconciliation Form, Thank You Letter, Antibiotic Education, Prescription Opioid Use form. - Follow up: Emergency Department; When: As needed; Reason: Worsening of condition. Follow up: Private Physician; When: 2 - 3 days; Reason: Recheck today's complaints, Continuance of care, Re-evaluation by your physician. - Problem is new. - Symptoms have improved. Signatures: Dispatcher [employer] EDParesh Thrasher MD MD kdr Marinas, Patrick, PLASTIC BUBBLE PACKER PLASTIC BUBBLE PACKER pm1 Igor Mariscal, RN RN bp Corrections: (The following items were deleted from the chart) 10/17 18:24 17:57 10/18/2019 17:57 Discharged to Home. Impression: Syncope and collapse; bp Dehydration. Condition is Stable. Forms are Medication Reconciliation Form, Thank You Letter, Antibiotic Education, Prescription Opioid Use. Follow up: Emergency Department; When: As needed; Reason: Worsening of condition. Follow up: Private Physician; When: 2 - 3 days; Reason: Recheck today's complaints, Continuance of care, Re-evaluation by your physician. Problem is new. Symptoms have improved. pm1
[2019-10-18 18:30] VITALS: O2SAT 100
[2019-10-18 18:33] VITALS: BP 133/87
--- OUTSIDE RECORDS SUMMARY | 2019-10-18 19:57 | XMS REPORT | Continuity of Care Document ---
:[address] [facility] t Address [address] [place] [address] Care Team Providers Name Role Phone Maame Luke Primary Care Physician Joseph GARCIA Attending Clinician Unavailable Joseph GARCIA Admitting Clinician Unavailable Problems Condition Condition Condition Status Onset Resolution Last Treating Co mments Source Name Details Category Date Date Treatment Clinician Date Chest pain Chest pain Disease Active 2016-[address] [facility] Chest Chest Disease Active 2015-[address] [facility] [address] pain, pain, 2-21 [facility] unspecifie unspecifie [facility]: Me dical d type d type 00 Center Allergies, Adverse Reactions, Alerts This patient has no known allergies or adverse reactions. Family History Family Member Diagnosis Comments Start Date Stop Date Source Natural father Heart attack [facility] Paternal grandfather Heart attack [facility] Social History Social Habit Start Date Stop Date Quantity Comments Source History of tobacco Cigarette Smoker [facility] Alcohol Comment socially [facility] Sex Assigned At [facility] Cigarettes smoked 2017-03-16 2017-03-16 [facility] - current (pack per 00:00:00 00[facility]:00 [facility] day[facility] - Reported Smoking Status Start Date Stop Date Source Current every day smoker 2017-03-16 00:00:00 [facility] Medications This patient has no known medications. Procedures This patient has no known procedures. Results Test Description Test Time Test Comments Results Result [facility] e Comments MYOCARD IMAGING, 2017-03-17 FINAL REPORT PATIENT MULTI, SPECT 14:45:00 ID: [id number] PROCEDURE: Rest/Stress MYOCARDIAL PERFUSION SPECT with treadmill\XA9\ CPT CODE: 49123 INDICATION: Chest pain HISTORY: Cardiac risk factors: Hypertension. Other cardiovascular history: No reported CAD. Recent cardiac symptoms: Chest pain. Current cardiovascular-relate d medications: Metoprolol. PROTOCOL: 10.5 mCi of Tc-99m [...] Normal extracardiac tracer distribution. 6. No previous [facility] study for comparison. NONINVASIVE RISK STRATIFICATION: The above findings are considered low risk (<1% annual mortality rate) based on the following criterion:- Normal or small myocardial perfusion defect at rest or with stress(JACC. 2012;59(9):857-81.) Signed: Ignacio Ruvalcaba MDRsarika Verified Date/Time: 03/17/2017 14:45:11 Reading Location: [address] Reading Room GLOBIN A1C 2017-03-17 08:29:00 Test Item Value Reference Range Interpretation Comme nts HEMOGLOBIN A1C (CHRISTINAAKER) (test code = 368) 5.5 % 4.3-6.1 CREATINE KINASE (CK), TOTAL AND [id number] 02:45:00 Test Item Value Reference Range Interpretation Comments CREATINE KINASE TOTAL (BEAKER) 34 U/L 29-200 (test code = 380) CREATINE KINASE-MB (BEAKER) (test 0.4 ng/mL 0.0-6.6 code = 750) CREATINE KINASE-MB INDEX (BEAKER) 1.2 % (test code = 395) CK-MB Reference Range:<6.7 Normal6.7-10.0 Borderline>10.0 AbnormalTROPONIN [id number] 02:45:00 Test Item Value Reference Range Interpretation Comments TROPONIN I (BEAKER) (test code = [...] and persistent tachyarrhythmia.RAD, CHEST, 1 VIEW, NON [id number] 20:40:00Reason for exam:->chest painShould this be performed at the bedside?->YesFINAL REPORT EXAMINATION: AP PORTABLE CHEST RADIOGRAPH CLINICAL INDICATION:Chest pain IMPRESSION: Compared with 04/30/2016. No evidence of focal lung consolidation, pulmonary edema or pleural effusion. The heart size is normal. Mediastinal contours are sharp. No evidence of an acute osseous abnormality or pneumothorax. Signed: Igor Castle MDReport Verified Date/Time: 03/16/2017 20:40:21 Reading Location: [address] Reading Room B-TYPE NATRIURETIC FACTOR (BNP)2017-03-16 20:30:00 Test Item Value Reference Range Interpretation Comments B-TYPE NATRIURETIC PEPTIDE (BEAKER) < pg/mL 0-100 (test code = 700) COMPREHENSIVE METABOLIC [id number] 20:30:00 Test Item Value Reference Range Interpretation Comments TOTAL PROTEIN 7.6 gm/dL 6.0-8.3 Specimen sligh tly (BEAKER) (test code hemolyze d = 770) ALBUMIN (BEAKER) 4.0 g/dL 3.5-5.0 Specimen sl ightly (test code = 1145) hemolyzed ALKALINE PHOSPHATASE 70 U/L 40-150 (BEAKER) (test code = 346) BILIRUBIN TOTAL 0.4 mg/dL 0.2-1.2 Specimen sli ghtly (BEAKER) (test code hemolyze d = 377) SODIUM (BEAKER) 140 meq/L 136-145 (test code = 381) POTASSIUM (BEAKER) 4.9 meq/L 3.5-5.1 Specimen slightly (test code = 379) hemolyzed CHLORIDE (BEAKER) 102 meq/L 98-107 (test code = 382) CO2 (BEAKER) (test 29 meq/L 22-29 code = 355) BLOOD UREA NITROGEN 7 mg/dL 7-21 (BEAKER) (test code = 354) CREATININE (BEAKER) 0.85 mg/dL 0.57-1.25 Specimen slightly (test code = 358) hemolyzed GLUCOSE RANDOM 98 mg/dL 70-105 (BEAKER) (test code = 652) CALCIUM (BEAKER) 8.9 mg/dL 8.4-10.2 (test code = 697) AST (SGOT) (BEAKER) 23 U/L 5-34 Specimen slightly (test code = 353) hemolyzed ALT (SGPT) (BEAKER) 21 U/L 6-55 Specimen slightly (test code = 347) hemolyzed EGFR (BEAKER) (test mL/min/1.73 INSUFFIC IENT code = 1092) sq m CLINICAL DATA T O CALCULATE ESTIM ATED GFR. CREATINE KINASE (CK), TOTAL AND [id number] 20:28:00 Test Item Value Reference Range Interpretation Comments CREATINE KINASE TOTAL (BEAKER) 50 U/L 29-200 (test code = 380) CREATINE KINASE-MB (BEAKER) (test 0.5 ng/mL 0.0-6.6 code = 750) CREATINE KINASE-MB INDEX (BEAKER) 1.0 % (test code = 395) CK-MB Reference Range:<6.7 Normal6.7-10.0 Borderline>10.0 AbnormalTROPONIN [id number] 20:28:00 Test Item Value Reference Range Interpretation Comments TROPONIN I (BEAKER) (test code = [...] failure, acidosis, acute neurological disease, and persistent tachyarrhythmia.[id number] 20:21:00 Test Item Value Reference Range Interpretation Comments MAGNESIUM (BEAKER) 2.2 mg/dL 1.6-2.6 Specimen slightly (test code = 627) hemolyzed [id number] 20:21:00 Test Item Value Reference Range Interpretation Comments PHOSPHORUS (BEAKER) 3.9 mg/dL 2.3-4.7 Specimen slightly (test code = 604) hemolyzed LIPID [id number] 20:21:00 Test Item Value Reference Range Interpretation Comments TRIGLYCERIDES (BEAKER) 212 mg/dL Speci men slightly (test code = 540) hemolyzed CHOLESTEROL (BEAKER) 239 mg/dL Specime n slightly (test code = 631) hemolyzed HDL CHOLESTEROL (BEAKER) 35 mg/dL (test code = 976) LDL CHOLESTEROL 162 mg/dL CALCULATED (BEAKER) (test code = 633) Triglyceride Reference Range: Low Risk <150 Borderline 150-199 High Risk 200-499 Very High Risk >=500Cholesterol Reference Range: Low Risk <200 Borderline 200-239 High Risk >240HDL Cholesterol Reference Range: Low Risk >=60 High Risk <40LDL Cholesterol Reference Range: Optimal <100 Near Optimal 100-129 Borderline 130-159 High 160-189 Very High >=190PROTHROMBIN TIME/[id number] 20:07:00 Test Item Value Reference Range Interpretation Comments PROTIME (BEAKER) (test code = 13.0 seconds 11.7-14.7 759) INR (BEAKER) (test code = 370) 1.0 <=5.9 RECOMMENDED COUMADIN/WARFARIN INR THERAPY RANGESSTANDARD DOSE: 2.0 - 3.0 Includes: PROPHYLAXIS forvenous thrombosis, systemic embolization; TREATMENT for venous thrombosis and/or pulmonary embolus.HIGH RISK: Target INR is 2.5-3.5 for patients with mechanical heart valves.[id number] 20:07:00 Test Item Value Reference Range Interpretation Comments PARTIAL THROMBOPLASTIN TIME 26.9 seconds 22.5-36.0 (BEAKER) (test code = 760) CBC W/PLT COUNT & AUTO [id number] 19:57:00 Test Item Value Reference Range Interpretation Comments WHITE BLOOD CELL COUNT (BEAKER) 8.3 K/ L 3.5-10.5 (test code = 775) RED BLOOD CELL COUNT (BEAKER) 5.41 M/ L 4.63-6.08 (test code = 761) HEMOGLOBIN (BEAKER) (test code = 16.2 GM/DL 13.7-17.5 410) HEMATOCRIT (BEAKER) (test code = 48.8 % 40.1-51.0 411) MEAN CORPUSCULAR VOLUME (BEAKER) 90.2 fL 79.0-92.2 (test code = 753) MEAN CORPUSCULAR HEMOGLOBIN 29.9 pg 25.7-32.2 (BEAKER) (test code = 751) MEAN CORPUSCULAR HEMOGLOBIN CONC 33.2 GM/DL 32.3-36.5 (BEAKER) (test code = 752) RED CELL DISTRIBUTION WIDTH 13.1 % 11.6-14.4 (BEAKER) (test code = 412) PLATELET COUNT (BEAKER) (test 253 K/CU MM 150-450 code = 756) MEAN PLATELET VOLUME (BEAKER) 10.5 fL 9.4-12.4 (test code = 754) NUCLEATED RED BLOOD CELLS 0 /100 WBC 0-0 (BEAKER) (test code = 413) NEUTROPHILS RELATIVE PERCENT 45 % (BEAKER) (test code = 429) LYMPHOCYTES RELATIVE PERCENT 32 % (BEAKER) (test code = 430) MONOCYTES RELATIVE PERCENT 14 % (BEAKER) (test code = 431) EOSINOPHILS RELATIVE PERCENT 7 % (BEAKER) (test code = 432) BASOPHILS RELATIVE PERCENT 1 % (BEAKER) (test code = 437) NEUTROPHILS ABSOLUTE COUNT 3.77 K/ L 1.78-5.38 (BEAKER) (test code = 670) LYMPHOCYTES ABSOLUTE COUNT 2.66 K/ L 1.32-3.57 (BEAKER) (test code = 414) MONOCYTES ABSOLUTE COUNT (BEAKER) 1.16 K/ L 0.30-0.82 H (test code = 415) EOSINOPHILS ABSOLUTE COUNT 0.59 K/ L 0.04-0.54 H (BEAKER) (test code = 416) BASOPHILS ABSOLUTE COUNT (BEAKER) 0.08 K/ L 0.01-0.08 (test code = 417) IMMATURE GRANULOCYTES-RELATIVE 1 % 0-1 PERCENT (BEAKER) (test code = 8384)
--- OUTSIDE RECORDS SUMMARY | 2019-10-18 19:57 | XMS REPORT | Clinical Summary ---
:1985 Author Organization [facility] Address [address] [place] [address] Care Team Providers Name Role Phone Vijay [...] Not on file Results Not on fileafter 10/17/2018 Advance Directives For more information, please contact:[address] [phone] Code Status Date Activated Date Inactivated Comments Full Code 03/16/2017 7:21 PM 03/17/2017 7:28 PM This code status was determined by: Patient
--- NOTE | 2019-10-19 06:54 | EKG ---
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
== END 2019-10-18 18:24 | disposition home or self-care (01) ==
LOC: ER 15:17
DX: E86.0 Dehydration (principal); I10 Essential (primary) hypertension; F41.9 Anxiety disorder, unspecified
CPT/HCPCS: 36415; 71045; 80048; 80076; 83735; 83880; 84484; 85025; 85610; 93005; 96360; 96361; 99284; J7030

== ENCOUNTER 2019-12-24 20:22 | Inpatient (IN) | payer OTHER, SELFPAY ==
--- OUTSIDE RECORDS SUMMARY | 2019-12-24 20:24 | XMS REPORT | Clinical Summary ---
:1985 Author Organization [facility] Address [address] [place] [address] Care Team Providers Name Role Phone Vijay [...] Not on file Results Not on fileafter 12/23/2018 Advance Directives For more information, please contact:[address] [phone] Code Status Date Activated Date Inactivated Comments Full Code 03/16/2017 7:21 PM 03/17/2017 7:28 PM This code status was determined by: Patient
--- OUTSIDE RECORDS SUMMARY | 2019-12-24 20:24 | XMS REPORT | Continuity of Care Document ---
:1985 Author Organization [facility] t Address [address] [place] [address] Care Team Providers Name Role Phone Maame [...] Stop Date Source Natural father Heart attack [facility] Paternal grandfather Heart attack CH I [facility] Social History Social Habit Start Date Stop Date Quantity Comments Source History of tobacco Cigarette Smoker [facility] Alcohol Comment socially [facility] Sex Assigned At [facility] Cigarettes smoked 2017-03-16 2017-03-16 [facility] - current (pack per 00:00:00 00:00:00 [facility] day) - Reported Smoking Status Start Date Stop Date Source Current every day smoker 2017-03-16 00:00:00 [facility] Medications This patient has no known medications. Procedures This patient has no known procedures. Results Test Description Test Time Test Comments Results Result [facility] e Comments MYOCARD IMAGING, 2017-03-17 FINAL REPORT PATIENT MULTI, SPECT 14:45:00 ID: [id number] PROCEDURE: Rest/Stress MYOCARDIAL PERFUSION SPECT with treadmill\XA9\ CPT CODE: 09542 INDICATION: Chest pain HISTORY: Cardiac risk factors: [...] Normal extracardiac tracer distribution. 6. No previous [facility] study for comparison. NONINVASIVE RISK STRATIFICATION: The above findings are considered low risk (<1% annual mortality rate) based on the following criterion:- Normal or small myocardial perfusion defect at rest or with stress(JACC. 2012;59(9):857-81.) Signed: Ignacio Ruvalcaba MDRsarika Verified Date/Time: 03/17/2017 14:45:11 Reading Location: [address] Reading Room GLOBIN A1C 2017-03-17 08:29:00 Test Item Value Reference Range Interpretation Comme nts HEMOGLOBIN A1C (CHRISTINAAKER) (test code = 368) 5.5 % 4.3-6.1 CREATINE KINASE (CK), TOTAL AND [id number] 02:45:00 Test Item Value Reference Range Interpretation Comments CREATINE KINASE TOTAL (BEAKER) 34 U/L 29-200 (test code = 380) CREATINE KINASE-MB (BEAKER) (test 0.4 ng/mL 0.0-6.6 code = 750) CREATINE KINASE-MB INDEX (BEAKER) 1.2 % (test code = 395) CK-MB Reference Range:<6.7 Normal6.7-10.0 Borderline>10.0 AbnormalTROPONIN [id number] 02:45:00 Test Item Value Reference Range Interpretation [...] and persistent tachyarrhythmia.RAD, CHEST, 1 VIEW, NON [id number] 20:40:00Reason for exam:->chest painShould this be performed at the bedside?->YesFINAL REPORT EXAMINATION: AP PORTABLE CHEST RADIOGRAPH CLINICAL INDICATION:Chest pain IMPRESSION: Compared with 04/30/2016. No evidence of focal lung consolidation, pulmonary edema or pleural effusion. The heart size is normal. Mediastinal contours are sharp. No evidence of an acute osseous abnormality or pneumothorax. Signed: Igor Castle MDReport Verified Date/Time: 03/16/2017 20:40:21 Reading Location: [address] Reading Room B-TYPE NATRIURETIC FACTOR (BNP)2017-03-16 20:30:00 Test Item Value Reference Range Interpretation Comments B-TYPE NATRIURETIC PEPTIDE (BEAKER) < pg/mL 0-100 (test code = 700) COMPREHENSIVE METABOLIC [id number] 20:30:00 Test Item Value Reference Range Interpretation [...] ATED GFR. CREATINE KINASE (CK), TOTAL AND [id number] 20:28:00 Test Item Value Reference Range Interpretation Comments CREATINE KINASE TOTAL (BEAKER) 50 U/L 29-200 (test code = 380) CREATINE KINASE-MB (BEAKER) (test 0.5 ng/mL 0.0-6.6 code = 750) CREATINE KINASE-MB INDEX (BEAKER) 1.0 % (test code = 395) CK-MB Reference Range:<6.7 Normal6.7-10.0 Borderline>10.0 AbnormalTROPONIN [id number] 20:28:00 Test Item Value Reference Range Interpretation [...] failure, acidosis, acute neurological disease, and persistent tachyarrhythmia.[id number] 20:21:00 Test Item Value Reference Range Interpretation Comments MAGNESIUM (BEAKER) 2.2 mg/dL 1.6-2.6 Specimen slightly (test code = 627) hemolyzed [id number] 20:21:00 Test Item Value Reference Range Interpretation Comments PHOSPHORUS (BEAKER) 3.9 mg/dL 2.3-4.7 Specimen slightly (test code = 604) hemolyzed LIPID [id number] 20:21:00 Test Item Value Reference Range Interpretation [...] Borderline 130-159 High 160-189 Very High >=190PROTHROMBIN [id number] 20:07:00 Test Item Value Reference Range Interpretation Comments PROTIME (BEAKER) (test code = 13.0 seconds 11.7-14.7 759) INR (BEAKER) (test code = 370) 1.0 <=5.9 RECOMMENDED COUMADIN/WARFARIN INR THERAPY RANGESSTANDARD DOSE: 2.0 - 3.0 Includes: PROPHYLAXIS forvenous thrombosis, systemic embolization; TREATMENT for venous thrombosis and/or pulmonary embolus.HIGH RISK: Target INR is 2.5-3.5 for patients with mechanical heart valves.[id number] 20:07:00 Test Item Value Reference Range Interpretation Comments PARTIAL THROMBOPLASTIN TIME 26.9 seconds 22.5-36.0 (BEAKER) (test code = 760) CBC W/PLT COUNT & AUTO [id number] 19:57:00 Test Item Value Reference Range Interpretation [...] % 0-1 PERCENT (BEAKER) (test code = 8591)
[2019-12-24 20:53] LABS: Urine Blood NEGATIVE (NEG); Urine Glucose NEGATIVE (NEG); Urine Protein NEGATIVE (NEG); Urine Specific Gravity <1.005 (1.005-1.030); Urine pH 5.5 (5.0-7.0)
[2019-12-24 20:53] LABS: Absolute Lymphocytes (CBC) 4.1 K/uL (0.7-4.9); MPV 8.1 fL (7.6-11.3); RBC Red Blood Cell Count 4.44 M/uL (4.33-5.43)
[2019-12-24 20:57] LABS: Barbiturates NEGATIVE (NEGATIVE); Benzodiazepines NEGATIVE (NEGATIVE); Cocaine NEGATIVE (NEGATIVE); METHAMPHETAM NEGATIVE (NEGATIVE); Methadone NEGATIVE (NEGATIVE); Opiates NEGATIVE (NEGATIVE); Phencyclidine NEGATIVE (NEGATIVE); THC Cannibis NEGATIVE (NEGATIVE)
[2019-12-24 21:11] LABS: Protime INR 0.95
[2019-12-24] MEDS ORDERED: NA CHLORIDE 0.9% 1,000 ML ONE (21:14)
[2019-12-24 21:18] LABS: ALT/SGPT 25 U/L (12-78); AST/SGOT 27 U/L (15-37); Albumin 3.3 g/dL (3.4-5.0); Alkaline Phosphatase 62 U/L (45-117); BUN Blood Urea Nitrogen 8 mg/dL (7-18); Bicarbonate 26 mmol/L (21-32); Bilirubin Direct < 0.1 mg/dL (0-0.2); Bilirubin Total 0.2 mg/dL (0.2-1.0); Glucose Level 112 mg/dL (74-106); Potassium 3.7 mmol/L (3.5-5.1); Protein, Total 6.9 g/dL (6.4-8.2); Sodium Level 145 mmol/L (136-145)
[2019-12-24] MEDS ORDERED: GLUCAGON 1 MG/VIAL ONE ×3 (21:34→21:41)
[2019-12-24] MEDS ORDERED: ONDANSETRON 4 MG/2 ML VIAL ONE (22:20)
[2019-12-24] MEDS ORDERED: RSI MEDICATION KIT IV ONE (22:23)
[2019-12-24] MEDS ORDERED: VECURONIUM 10 MG/VIAL IV ONE (22:24)
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
--- NOTE | 2019-12-24 22:46 | EDPHYS ---
Physician Documentation [facility] Name: Srini Simpson Age: 34 yrs Sex: Male : 1985 Arrival Date: 12/24/2019 Time: 20:29 Bed 3 Private MD: ED Physician Luis Carr HPI: 12/23 23:48 This 34 yrs old Male presents to ER via EMS with complaints of altered mental tw4 sttus after overdose on unknwon meds. 23:48 The patient presents with decreased mental status, decreased responsiveness. Onset: The tw4 symptoms/episode began/occurred just prior to arrival, today. Possible causes: drug use, benzodiazepines. Associated signs and symptoms: The patient has no apparent associated signs or symptoms. Current symptoms: In the emergency department the patient's symptoms are unchanged from the initial presentation. The patient has not experienced similar symptoms in the past. Historical: - Allergies: 20:58 No Known Allergies; lp1 - Home Meds: 20:58 Effexor Oral 75 mg nightly [Active]; Klonopin 1 mg Oral tab 1 tab 2 times per day lp1 [Active]; metoprolol tartrate 50 mg Oral tab 1 tab 2 times per day [Active]; Valium 10 mg Oral tab 1 tab 2 times per day [Active]; - PMHx: 20:58 Anxiety; Depression; Hypertension; Pyloric Stenosis; lp1 - PSHx: 20:58 Unable to obtain; lp1 - Immunization history:: Adult Immunizations unknown. - Social history:: Smoking status: unknown. ROS: 23:48 Constitutional: Negative for fever, chills, and weight loss, Eyes: Negative for injury, tw4 pain, redness, and discharge, Cardiovascular: Negative for chest pain, palpitations, and edema, Respiratory: Negative for shortness of breath, cough, wheezing, and pleuritic chest pain, Abdomen/GI: Negative for abdominal pain, nausea, vomiting, diarrhea, and constipation, Back: Negative for injury and pain. 23:48 Neuro: Positive for altered mental status. 23:48 Psych: Positive for suicide gesture, suicidal ideation, Negative for auditory hallucinations, visual hallucinations, homicidal ideation. Exam: 23:53 Head/Face: Normocephalic, atraumatic. Chest/axilla: Normal chest wall appearance and tw4 motion. Nontender with no deformity. No lesions are appreciated. Cardiovascular: Regular rate and rhythm with a normal S1 and S2. No gallops, murmurs, or rubs. Normal PMI, no JVD. No pulse deficits. Respiratory: Lungs have equal breath sounds bilaterally, clear to auscultation and percussion. No rales, rhonchi or wheezes noted. No increased work of breathing, no retractions or nasal flaring. Abdomen/GI: Soft, non-tender, with normal bowel sounds. No distension or tympany. No guarding or rebound. No evidence of tenderness throughout. MS/ Extremity: Pulses equal, no cyanosis. Neurovascular intact. Full, normal range of motion. 23:53 Constitutional: The patient appears lethargic. 23:53 Neuro: Orientation: unable to test, the patient is clinically intoxicated, Mentation: slow to respond, Cranial nerves: CN II- XII are normal as tested, Motor: moves all fours. Vital Signs: 20:15 BP 109 / 75; Pulse 86; Resp 20; Temp 97.7(O); Pulse Ox 93% on R/A; Weight 99.79 kg; lp1 20:45 BP 94 / 65; Pulse 80; Resp 20; Pulse Ox 93% on R/A; lp1 20:55 BP 92 / 52; Pulse 80; Resp 20; Pulse Ox 94% on R/A; lp1 21:00 BP 80 / 49; Pulse 75; Resp 19; Pulse Ox 94% on R/A; lp1 21:00 Pulse Ox 88% on R/A; lp1 21:15 BP 92 / 59; Pulse 73; Resp 20; Pulse Ox 98% on 2 lpm NC; lp1 21:30 BP 95 / 65; Pulse 74; Resp 20; Pulse Ox 96% on 2 lpm NC; lp1 21:45 BP 99 / 71; Pulse 74; Resp 20; Pulse Ox 96% on 2 lpm NC; lp1 22:00 BP 104 / 90; Pulse 76; Resp 22; Pulse Ox 96% on 2 lpm NC; lp1 22:15 BP 118 / 87; Pulse 91; Resp 22; Pulse Ox 96% on 2 lpm NC; lp1 22:30 BP 118 / 77; Pulse 80; Resp 22; Pulse Ox 94% on 2 lpm NC; lp1 21:00 Patient respirations even, easy to arouse; O2 via NC 2L place on patient lp1 [place] Coma Score: 20:30 Eye Response: spontaneous(4). Verbal Response: confused(4). Motor Response: obeys lp1 commands(6). Total: 14. 22:30 Eye Response: to voice(3). Verbal Response: confused(4). Motor Response: localizes lp1 pain(5). Total: 12. MDM: 20:30 Patient medically screened. tw4 23:53 Data reviewed: vital signs, nurses notes, EMS record. Data interpreted: Pulse oximetry: 4 Interpretation: normal. Counseling: I had a detailed discussion with the patient and/or guardian regarding: the historical points, exam findings, and any diagnostic results supporting the discharge/admit diagnosis. 12/23 20:31 Order name: Acetaminophen [facility] 12/23 20:31 Order name: Basic Metabolic Panel [facility] 12/23 20:31 Order name: CBC with Diff; Complete Time: 22:34 [facility] 12/23 22:34 Interpretation: HGB 13.3; MCV 90.0; EOSINOPHIL % 5.0; MN% 12.4; CASIE% 40.6; RDW 15.5. [facility] 12/23 20:31 Order name: ETOH Level; Complete Time: 22:34 [facility] 12/23 22:35 Interpretation: Normal except: ETOH 325. [facility] 12/23 20:31 Order name: Hepatic Function; Complete Time: 22:34 [facility] 12/23 22:35 Interpretation: Normal except: ALB 3.3; GLOB 3.6; A/G 0.9. [facility] 12/23 20:31 Order name: PT-INR; Complete Time: 22:34 [facility] 12/23 20:31 Order name: Ptt, Activated; Complete Time: 22:34 [facility] 12/23 20:31 Order name: Salicylate; Complete Time: 22:34 [facility] 12/23 22:35 Interpretation: Normal except: ARIEL 2.6. [facility] 12/23 20:31 Order name: Urine Drug Screen; Complete Time: 22:34 [facility] 12/23 20:31 Order name: Acetaminophen Level; Complete Time: 22:34 [facility] 12/23 20:31 Order name: Basic Metabolic Panel; Complete Time: 22:34 [facility] 12/23 20:50 Order name: Urine Dipstick--Ancillary (enter results); Complete Time: 22:34 mw2 12/24 00:40 Order name: Troponin I EDMS 12/24 01:30 Order name: SARS-COV-2 RT PCR EDMS 12/24 03:35 Order name: Glucose, Ancillary Testing EDMS 12/24 04:42 Order name: Glucose, Ancillary Testing EDMS 12/24 04:46 Order name: Glucose, Ancillary Testing EDMS 12/24 04:46 Order name: Glucose, Ancillary Testing EDMS 12/24 05:26 Order name: Glucose, Ancillary Testing EDMS 12/24 06:08 Order name: Comprehensive Metabolic Panel EDMS 12/24 06:08 Order name: Liver (Hepatic) Function EDMS 12/24 06:08 Order name: Lipid Profile EDMS 12/24 06:08 Order name: Magnesium EDMS 12/24 06:11 Order name: CBC with Automated Diff EDMS 12/24 06:50 Order name: Hemoglobin A1c EDMS 12/24 06:52 Order name: Glucose, Ancillary Testing EDMS 12/24 07:20 Order name: Glucose, Ancillary Testing EDMS 12/24 08:12 Order name: Glucose, Ancillary Testing EDMS 12/24 08:44 Order name: Troponin I EDMS 12/24 10:53 Order name: Alcohol Serum/Plasma EDMS 12/23 20:31 Order name: EKG; Complete Time: 20:31 tw4 12/23 20:31 Order name: EKG - Nurse/Tech; Complete Time: 20:51 tw4 12/23 20:31 Order name: IV Saline Lock; Complete Time: 20:59 tw4 12/23 20:31 Order name: Labs collected and sent; Complete Time: 20:59 tw4 12/23 20:31 Order name: Urine Dipstick-Ancillary (obtain specimen); Complete Time: 20:52 tw4 12/24 16:45 Order name: Troponin I EDMS EC/16 01:09 Rhythm is regular. QRS [place] is Normal. IA interval is normal. QT interval is normal. T tw4 waves are Normal. No ST changes noted. Clinical impression: Normal ECG. Interpreted by me. Reviewed by me. Administered Medications: 12/23 21:00 Drug: NS 0.9% 1000 ml Route: IV; Rate: 1000 ml; Site: left antecubital; lp1 22:00 Follow up: IV Status: Completed infusion; IV Intake: 1000ml lp1 22:05 Drug: Glucagon 5 mg Route: IVP; Site: right antecubital; lp1 23:00 Follow up: Response: No adverse reaction lp1 22:18 Drug: Zofran (Ondansetron) 4 mg {Note: ok to administer per , EKG has been sg done.} Route: IVP; Site: right antecubital; 22:30 Follow up: Response: Marked relief of symptoms lp1 Disposition: 12/24/19 22:46 Hospitalization ordered by Yunior Dias for Inpatient Admission. Preliminary diagnosis are Alcohol abuse with intoxication delirium, Suicidal ideations. - Bed requested for [facility] ER HOLD. - Status is Inpatient Admission. - Condition is Stable. - Problem is new. - Symptoms are unchanged. Signatures: Dispatcher [employer] EDMS Eugenia Morgan RN RN Hernesto Ayala RN RN sg Pena, Laura, RN RN 1 Margarette Peck Luis Carr MD MD tw4 Corrections: (The following items were deleted from the chart) 23:19 22:46 Hospitalization Ordered by Yunior TORREZ for Inpatient Admission. Preliminary diagnosis is Alcohol abuse with intoxication delirium; Suicidal ideations. Bed requested for Intensive Care Unit. Status is Inpatient Admission. Condition is Stable. Problem is new. Symptoms are unchanged. tw4 12/24 19:45 12/23 23:19 12/24/2019 22:46 Hospitalization Ordered by Yunior TORREZ for Inpatient Admission. Preliminary diagnosis is Alcohol abuse with intoxication delirium; Suicidal ideations. Bed requested for [facility] ER HOLD. Status is Inpatient Admission. Condition is Stable. Problem is new. Symptoms are unchanged.
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
[2019-12-24] MEDS ORDERED: FOLIC ACID 1 MG, MULTIVITAMINS INJ 10 ML, THIAMINE HCL 100 MG in NA CHLORIDE 0.9% 1,000 ML IV ONE (23:47)
[2019-12-25] MEDS ORDERED: NA CHLORIDE 0.9% 1,000 ML ONE (00:38)
[2019-12-25] MEDS ORDERED: THIAMINE 200 MG/2 ML INJ ONE (00:38)
[2019-12-25] MEDS ORDERED: FOLIC ACID 5 MG/ML VIAL ONE (00:39)
[2019-12-25] MEDS ORDERED: MULTIVITAMINS 10 ML VIAL (INJ) IV ONE (00:40)
[2019-12-25 01:53] VITALS: BMI 33.4
[2019-12-25 06:01] LABS: Absolute Lymphocytes (CBC) 2.5 K/uL (0.7-4.9); Basophils % 0.9 % (0-1.3); Hematocrit 40.1 % (39.6-49.0); Lymphocytes % 23.2 % (15.3-44.8); MPV 8.5 fL (7.6-11.3); RBC Red Blood Cell Count 4.42 M/uL (4.33-5.43)
[2019-12-25 06:08] LABS: ALT/SGPT 28 U/L (12-78); AST/SGOT 24 U/L (15-37); Albumin 3.3 g/dL (3.4-5.0); Alkaline Phosphatase 63 U/L (45-117); BUN Blood Urea Nitrogen 8 mg/dL (7-18); Bicarbonate 24 mmol/L (21-32); Bilirubin Direct < 0.1 mg/dL (0-0.2); Bilirubin Total 0.1 mg/dL (0.2-1.0); Glucose Level 101 mg/dL (74-106); HDL Cholesterol 37 mg/dL (40-60); LDL Cholesterol, Calculated 94 (<130); Magnesium 2.1 mg/dL (1.8-2.4); Potassium 4.6 mmol/L (3.5-5.1); Protein, Total 6.9 g/dL (6.4-8.2); Sodium Level 145 mmol/L (136-145)
[2019-12-25] MEDS ORDERED: ENOXAPARIN 40 MG/0.4 ML SQ ONE (08:21)
[2019-12-25] MEDS: NA CHLORIDE 0.9% 1,000 ML IV SCH ×3 (08:21→19:45)
[2019-12-25] MEDS: ENOXAPARIN 40 MG/0.4 ML SQ SCH (08:21)
[2019-12-25] MEDS: FOLIC ACID 1 MG, MULTIVITAMINS INJ 10 ML, THIAMINE HCL 100 MG in NA CHLORIDE 0.9% 1,000 ML IV SCH (08:45)
[2019-12-25] MEDS: VENLAFAXINE HCL 75 MG TABLET PO SCH (09:44)
[2019-12-25] MEDS: clonazePAM 1 MG TAB PO PRN ×2 (10:48→22:41)
[2019-12-25] MEDS ORDERED: clonazePAM 0.5 MG TAB ONE ×3 (10:58→22:50)
--- NOTE | 2019-12-25 14:10 | P.PN ---
Subjective Date of Service: 12/25/19 Patient seen and examined. He looks to be doing better. [facility] came to see the patient and recommending inpatient's psych. Review of Systems 10-point ROS is otherwise unremarkable Physical Examination - Vital Signs Temperature: 97.5 F Blood Pressure: 152/88 Pulse: 62 Respirations: 18 Pulse Ox (%): 98 - Physical Exam General: Alert, In no apparent distress, Oriented x3 Respiratory: Clear to auscultation bilaterally, Normal air movement Cardiovascular: Regular rate/rhythm, Normal S1 S2, No murmurs Gastrointestinal: Normal bowel sounds, Soft and benign, Non-distended, No tenderness Musculoskeletal: No clubbing, No swelling, No tenderness Neurological: Sensation intact, Cranial nerves 3-12 intact, Normal affect - Studies Laboratory Data (last 24 hrs) 12/24/19 20:30: PT 11.2, INR 0.95, APTT 28.2 12/24/19 20:30: WBC 9.9, Hgb 13.3 L, Hct 40.0, Plt Count 324 12/24/19 20:30: Sodium 145, Potassium 3.7, BUN 8, Creatinine 0.93, Glucose 112 H, Total Bilirubin 0.2, AST 27, ALT 25, Alkaline Phosphatase 62 12/24/19 00:01: Troponin I < 0.02 Medications List Reviewed: Yes Assessment & Plan - Problems (Diagnosis) (1) Suicide attempt Current Visit: Yes Status: Acute (2) Major depressive disorder Current Visit: Yes Status: Acute (3) History of hypertension Current Visit: Yes Status: Acute - Plan Plan: 1. Continue with IV hydration and monitor hemodynamics over the next 12-24 more hr. If he remains stable then he should be able the transfer to inpatient psych. Patient has suffer from depression and he lost his home along with a lot of other substantial losses to him recently. Plan to transfer to inpatient psych with assistance from [facility]. Discharge Plan: Psychiatry Plan to discharge in: 24 Hours - Advance Directives Does patient have a Living Will: Yes Does patient have a Durable POA for Healthcare: Yes - Code Status/Comfort Care Code Status Assessed: Yes Code Status: Full Code Critical Care: No Time Spent Managing PTS Care (In Minutes): 30
[2019-12-25] MEDS ORDERED: ACETAMINOPHEN 500 MG TAB PO ONE (18:37)
[2019-12-25] MEDS ORDERED: ACETAMINOPHEN 500 MG TAB ONE (18:54)
[2019-12-25] MEDS ORDERED: HYDRALAZINE HCL 20 MG/ML VIAL IV PRN (21:11)
[2019-12-25] MEDS ORDERED: HYDRALAZINE HCL 20 MG/ML VIAL ONE (22:32)
[2019-12-26] MEDS ORDERED: HYDRALAZINE HCL 20 MG/ML VIAL ONE (02:22)
[2019-12-26] MEDS: NA CHLORIDE 0.9% 1,000 ML IV SCH ×4 (02:25→20:02)
[2019-12-26] MEDS ORDERED: NA CHLORIDE 0.9% 1,000 ML ONE ×2 (05:02→20:11)
[2019-12-26 05:25] LABS: BUN Blood Urea Nitrogen 7 mg/dL (7-18); Bicarbonate 27 mmol/L (21-32); Glucose Level 92 mg/dL (74-106); Magnesium 1.8 mg/dL (1.8-2.4); Potassium 3.9 mmol/L (3.5-5.1); Sodium Level 136 mmol/L (136-145)
[2019-12-26 05:27] LABS: Hematocrit 38.8 % (39.6-49.0); MPV 8.6 fL (7.6-11.3); RBC Red Blood Cell Count 4.37 M/uL (4.33-5.43)
[2019-12-26 05:28] LABS: Absolute Lymphocytes (CBC) 1.6 K/uL (0.7-4.9); Basophils % 0.9 % (0-1.3); Lymphocytes % 12.8 % (15.3-44.8)
[2019-12-26] MEDS ORDERED: ENOXAPARIN 40 MG/0.4 ML SQ ONE (07:24)
[2019-12-26] MEDS ORDERED: POTASSIUM 25 MEQ EFFERV TAB ONE (07:24)
[2019-12-26] MEDS: ENOXAPARIN 40 MG/0.4 ML SQ SCH (07:59)
[2019-12-26] MEDS ORDERED: MAGNESIUM SULFATE 1 gm IVPB 1 GM/100 ML BAG IV ONE ×2 (08:35→09:00)
[2019-12-26] MEDS ORDERED: POTASSIUM 25 MEQ EFFERV TAB PO ONE (09:00)
[2019-12-26] MEDS: VENLAFAXINE HCL 75 MG TABLET PO SCH (09:31)
[2019-12-26] MEDS: FOLIC ACID 1 MG, MULTIVITAMINS INJ 10 ML, THIAMINE HCL 100 MG in NA CHLORIDE 0.9% 1,000 ML IV SCH (09:31)
--- NOTE | 2019-12-26 10:36 | P.PN ---
Subjective Date of Service: 12/26/19 Chief Complaint: Altered mental status Subjective: Other (Patient is more awake alert Denies any chest pain Has cough,) Review of Systems 10-point ROS is otherwise unremarkable Physical Examination - Vital Signs Temperature: 98.9 F Blood Pressure: 140/93 Pulse: 85 Respirations: 23 Pulse Ox (%): 97 - Physical Exam General: Alert, In no apparent distress HEENT: Atraumatic, Normocephalic Neck: Supple, 2+ carotid pulse no bruit Respiratory: Clear to auscultation bilaterally, Normal air movement Cardiovascular: Regular rate/rhythm, Normal S1 S2 Capillary refill: <2 Seconds Gastrointestinal: Soft and benign, W/out hepatosplenomegaly Musculoskeletal: No clubbing, No swelling Integumentary: No rashes, No breakdown Neurological: Normal speech, Normal strength at 5/5 x4 extr Lymphatics: No axilla or inguinal lymphadenopathy - Studies Medications List Reviewed: Yes Assessment & Plan - Problems (Diagnosis) (1) Major depressive disorder Current Visit: Yes Status: Chronic (2) Suicide attempt Current Visit: Yes Status: Acute Physician Review Additional Text: Suicidal ideation Suicidal attempt Hypertension History of depression Bronchitis Plan Monitor closely under telemetry Continue home medications and titrate as needed antihypertensives titrated Will get a chest x-ray If X-ray chest is negative patient could be medically cleared for inpatient psych Time Spent Managing Pts Care (In Minutes): 45
[2019-12-26] MEDS ORDERED: GUAIFENESIN/DM 5 ML UCUP PO PRN (10:38)
--- NOTE | 2019-12-26 10:43 | RAD REPORT ---
EXAM DESCRIPTION: CT - Head C Spine Mpr Wo Con - 12/25/2019 5:14 am CLINICAL HISTORY: 34-year-old male with altered mental status. COMPARISON: None. TECHNIQUE: CT brain without contrast. This exam was performed according to our departmental dose opt imization program which includes use of automated exposure control, adjustment of the mA and/or kV ac cording to patient size and/or use of iterative reconstruction technique. FINDINGS: The ventricles, sulci, and cisterns are symmetric and unremarkable. The yuen-white matte r differentiation is preserved. There is no mass effect, midline shift, intra- or extra-axial fluid collection/acute hemorrhage. The osseous structures are unremarkable. The paranasal sinuses reve al opacification of the bilateral anterior posterior ethmoid air cells with mucosal thickening of the LEFT maxillary sinus otherwise the remaining paranasal sinuses and mastoid air cells are clear. IMPRESSION: 1. No acute intracranial abnormalities. TECHNIQUE: Cervical spine CT was performed without contrast. Multiplanar reformatted images were pro vided. This exam was performed according to our departmental dose optimization program which includes use of automated exposure control, adjustment of the mA and/or kV according to patient size and/or u se of iterative reconstruction technique. COMPARISON: None. FINDINGS: There is normal alignment of the cervical spine without fracture or subluxation. The facet s are normal in alignment bilaterally. The posterior elements including the spinous processes are int act. Straightening of the cervical spine which may be secondary to positioning for the examination. Morphology and attenuation of the vertebral bodies and intervertebral disk spaces is within normal li mits. The pre-and paravertebral soft tissues are within normal limits. IMPRESSION: 1. Straightening of the cervical spine which may be secondary to positioning for the exa mination versus spasm. 2. No fracture or acute subluxation. Electronically signed by: Galina Morfin MD 12/25/2019 12:53 AM CDT Due to temporary technical issues with the PACS/Fluency reporting system, reports are being signed by the in house radiologist without review as a courtesy to ensure prompt reporting. The interpreting r adiologist is fully responsible for the content of the report.
--- NOTE | 2019-12-26 11:19 | RAD REPORT ---
EXAM DESCRIPTION: Lnidsay Single View12/26/2019 11:04 am CLINICAL HISTORY: Cough COMPARISON: none FINDINGS: Mild patchy opacity right lung base Left lung appears clear of acute infiltrate The heart is normal size IMPRESSION: Mild patchy opacity right lung base may represent mild pneumonia
[2019-12-26] MEDS ORDERED: CEFTRIAXONE/SWI 1gm 1 GM/10 ML SYR ONE (12:21)
[2019-12-26] MEDS: CEFTRIAXONE/SWI 1gm 1 GM/10 ML SYR IV SCH (12:22)
[2019-12-26] MEDS: AZITHROMYCIN IV 500 MG in NA CHLORIDE 0.9% 250 ML IVPB SCH (13:39)
[2019-12-26] MEDS ORDERED: HYDROCODONE/APAP 7.5/325 MG TAB PO PRN (16:07)
[2019-12-26] MEDS: ACETAMINOPHEN 500 MG TAB PO PRN (16:25)
[2019-12-27] MEDS: NA CHLORIDE 0.9% 1,000 ML IV SCH ×2 (05:05→06:12)
[2019-12-27 05:17] LABS: BUN Blood Urea Nitrogen 7 mg/dL (7-18); Bicarbonate 27 mmol/L (21-32); Glucose Level 72 mg/dL (74-106); Potassium 3.5 mmol/L (3.5-5.1); Sodium Level 138 mmol/L (136-145)
[2019-12-27] MEDS ORDERED: NA CHLORIDE 0.9% 1,000 ML ONE (06:01)
[2019-12-27] MEDS ORDERED: POTASSIUM CL SA 10 MEQ TAB PO ONE ×2 (06:20→07:30)
[2019-12-27] MEDS ORDERED: AZITHROMYCIN IV 500 MG in NA CHLORIDE 0.9% 250 ML IVPB SCH (09:00)
[2019-12-27] MEDS: NICOTINE 21 MG/PAT TD SCH ×2 (09:00→17:23)
[2019-12-27] MEDS ORDERED: CEFTRIAXONE 1 GM/NS 50 ML 1 GM/50 ML BAG IV SCH (09:00)
--- NOTE | 2019-12-27 09:13 | P.PN ---
Subjective Date of Service: 12/27/19 Chief Complaint: Altered mental status Subjective: No new changes, Other (Feeling better denies any chest pain or shortness of breath Cough is better Wants to go home with the family) Review of Systems 10-point ROS is otherwise unremarkable Physical Examination - Vital Signs Temperature: 98.7 F Blood Pressure: 144/81 Pulse: 86 Respirations: 16 Pulse Ox (%): 96 - Physical Exam General: Alert, In no apparent distress, Oriented x3 HEENT: Atraumatic, Normocephalic Neck: Supple Respiratory: Clear to auscultation bilaterally Cardiovascular: Regular rate/rhythm, Normal S1 S2 Capillary refill: <2 Seconds Gastrointestinal: Soft and benign, Non-distended, W/out hepatosplenomegaly Musculoskeletal: No clubbing, No swelling Integumentary: No rashes Neurological: Normal speech, Normal strength at 5/5 x4 extr Lymphatics: No axilla or inguinal lymphadenopathy - Studies Medications List Reviewed: Yes Assessment & Plan - Problems (Diagnosis) (1) Major depressive disorder Current Visit: Yes Status: Chronic (2) Suicide attempt Current Visit: Yes Status: Acute Physician Review Additional Text: Suicidal ideation Suicidal attempt Hypertension History of depression Bronchitis Plan Monitor closely under telemetry Continue home medications and titrate as needed antihypertensives titrated Will get a chest x-ray If X-ray chest is negative patient could be medically cleared for inpatient psych 12/27/2019 Continue antibiotic x-ray findings noted Patient is afebrile Will get psych consult Patient is medically cleared Possible Dc to inpatient psych today Time Spent Managing Pts Care (In Minutes): 38
[2019-12-27] MEDS: CEFTRIAXONE/SWI 1gm 1 GM/10 ML SYR IV SCH (09:33)
[2019-12-27] MEDS: ENOXAPARIN 40 MG/0.4 ML SQ SCH (09:34)
[2019-12-27] MEDS ORDERED: AZITHROMYCIN 500 MG INJ IVPB ONE (09:37)
[2019-12-27] MEDS ORDERED: CEFTRIAXONE/SWI 1gm 1 GM/10 ML SYR ONE (09:40)
[2019-12-27] MEDS ORDERED: ENOXAPARIN 40 MG/0.4 ML SQ ONE (09:40)
[2019-12-27] MEDS: VENLAFAXINE HCL 75 MG TABLET PO SCH (09:44)
[2019-12-27] MEDS: AZITHROMYCIN IV 500 MG in NA CHLORIDE 0.9% 250 ML IVPB SCH (09:44)
[2019-12-27] MEDS: ACETAMINOPHEN 500 MG TAB PO PRN (10:24)
[2019-12-27] MEDS ORDERED: ACETAMINOPHEN 500 MG TAB ONE (10:33)
[2019-12-27] MEDS ORDERED: clonazePAM 1 MG TAB PO PRN (16:49)
[2019-12-27] MEDS: clonazePAM 0.5 MG TAB PO PRN (17:23)
[2019-12-27] MEDS ORDERED: clonazePAM 0.5 MG TAB ONE (17:24)
[2019-12-27] MEDS ORDERED: NICOTINE 21 MG/PAT TD ONE (17:24)
[2019-12-27] MEDS: METOPROLOL TAR 50 MG TAB PO SCH (20:32)
[2019-12-27] MEDS ORDERED: METOPROLOL TAR 50 MG TAB ONE (20:41)
[2019-12-27 21:31] VITALS: O2SAT 97
[2019-12-28 04:43] LABS: BUN Blood Urea Nitrogen 9 mg/dL (7-18); Bicarbonate 26 mmol/L (21-32); Glucose Level 93 mg/dL (74-106); Potassium 3.8 mmol/L (3.5-5.1); Sodium Level 140 mmol/L (136-145)
[2019-12-28] MEDS ORDERED: POTASSIUM CL SA 10 MEQ TAB PO ONE ×2 (06:00→06:01)
[2019-12-28 08:08] LABS: Absolute Lymphocytes (CBC) 0.8 K/uL (0.7-4.9)
[2019-12-28 08:13] LABS: Basophils % 0.8 % (0-1.3); Hematocrit 42.8 % (39.6-49.0); Lymphocytes % 13.8 % (15.3-44.8); MPV 8.5 fL (7.6-11.3); RBC Red Blood Cell Count 4.78 M/uL (4.33-5.43)
[2019-12-28 08:26] LABS: ALT/SGPT 14 U/L (12-78); AST/SGOT 12 U/L (15-37); Alkaline Phosphatase 61 U/L (45-117); BUN Blood Urea Nitrogen 8 mg/dL (7-18); Bicarbonate 28 mmol/L (21-32); Bilirubin Total 0.5 mg/dL (0.2-1.0); Glucose Level 85 mg/dL (74-106); Protein, Total 7.7 g/dL (6.4-8.2); Sodium Level 139 mmol/L (136-145)
[2019-12-28] MEDS: ENOXAPARIN 40 MG/0.4 ML SQ SCH (08:48)
[2019-12-28] MEDS: AZITHROMYCIN IV 500 MG in NA CHLORIDE 0.9% 250 ML IVPB SCH (08:49)
[2019-12-28] MEDS: NICOTINE 21 MG/PAT TD SCH (08:50)
[2019-12-28] MEDS: METOPROLOL TAR 50 MG TAB PO SCH (08:50)
[2019-12-28] MEDS ORDERED: METOPROLOL TAR 50 MG TAB ONE (08:55)
[2019-12-28] MEDS ORDERED: NICOTINE 21 MG/PAT TD ONE (08:56)
[2019-12-28] MEDS ORDERED: ENOXAPARIN 40 MG/0.4 ML SQ ONE (08:56)
[2019-12-28] MEDS ORDERED: CEFTRIAXONE 1000 MG/VIAL ONE (08:56)
[2019-12-28] MEDS ORDERED: VENLAFAXINE HCL 75 MG TABLET PO SCH (09:00)
[2019-12-28] MEDS ORDERED: VENLAFAXINE HCL XR 75 MG CAP PO SCH (09:00)
--- NOTE | 2019-12-28 09:00 | P.PN ---
Subjective Date of Service: 12/28/19 Chief Complaint: Altered mental status Subjective: No new changes, Other (Feeling better no acute events Denies any cough denies any chest pain or shortness of breath) Review of Systems 10-point ROS is otherwise unremarkable Physical Examination - Vital Signs Temperature: 98.7 F Blood Pressure: 138/94 Pulse: 74 Respirations: 20 Pulse Ox (%): 98 - Physical Exam General: Alert, In no apparent distress, Oriented x3 HEENT: Atraumatic, Normocephalic Neck: Supple, 2+ carotid pulse no bruit Respiratory: Clear to auscultation bilaterally, Normal air movement Cardiovascular: Regular rate/rhythm, Normal S1 S2 Capillary refill: <2 Seconds Gastrointestinal: Soft and benign, W/out hepatosplenomegaly Musculoskeletal: No clubbing, No swelling Integumentary: No rashes, No breakdown Neurological: Normal speech, Normal strength at 5/5 x4 extr Lymphatics: No axilla or inguinal lymphadenopathy - Studies Medications List Reviewed: Yes Assessment & Plan - Problems (Diagnosis) (1) Major depressive disorder Current Visit: Yes Status: Chronic (2) Suicide attempt Current Visit: Yes Status: Acute Physician Review Additional Text: Suicidal ideation Suicidal attempt Hypertension History of depression Bronchitis Plan Monitor closely under telemetry Continue home medications and titrate as needed antihypertensives titrated Will get a chest x-ray If X-ray chest is negative patient could be medically cleared for inpatient psych 12/27/2019 Continue antibiotic x-ray findings noted Patient is afebrile Will get psych consult Patient is medically cleared Possible Dc to inpatient psych today 12/28/2019 Continue antibiotics Continue home medications for high blood pressure and also depression anxiety Discuss with psychiatry appreciate help Initial plan was to Dc to sister's house Sister voices concern regarding suicidal ideation psych recommended inpatient psych admission and treatment Awaiting transfer Medically cleared Time Spent Managing Pts Care (In Minutes): 42
[2019-12-28] MEDS: CEFTRIAXONE/SWI 1gm 1 GM/10 ML SYR IV SCH (10:28)
[2019-12-28] MEDS ORDERED: CEFTRIAXONE/SWI 1gm 1 GM/10 ML SYR ONE (10:38)
[2019-12-28] MEDS: clonazePAM 0.5 MG TAB PO PRN (13:00)
[2019-12-28] MEDS ORDERED: clonazePAM 0.5 MG TAB ONE (13:09)
[2019-12-28 15:32] VITALS: BP 138/87; TEMP 98.8
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
[2019-12-28] MEDS ORDERED: AMOX/K CLAV 875 MG TAB PO SCH (17:11)
== END 2019-12-28 19:00 | DRG 896 ==
LOC: ER 20:22 → ERHOLD 23:34
PROVIDERS: ADMIT Hospitalist; ATTEND Family Medicine
DX: F10.121 Alcohol abuse with intoxication delirium (principal); J18.9 Pneumonia, unspecified organism; I10 Essential (primary) hypertension; F41.8 Other specified anxiety disorders; J40 Bronchitis, not specified as acute or chronic; Y90.8 Blood alcohol level of 240 mg/100 ml or more; R41.82 Altered mental status, unspecified; T14.91XA Suicide attempt, initial encounter; Z79.899 Other long term (current) drug therapy; Z87.891 Personal history of nicotine dependence; Z11.59 Encounter for screening for other viral diseases
CPT/HCPCS: 36415; 51702; 70450; 71045; 72125; 80048; 80053; 80061; 80076; 80307; 80320; 80329; 81003; 82248; 82947; 83036; 83735; 84484; 85025; 85610; 85730; 93005; 96361; 96374; 96375; 99291; 99292; J0360; J0456; J0696; J1610; J1650; J2405; J3411; J3475; J7030; J7050; U0002; U0003

== ENCOUNTER 2020-01-25 22:23 | Emergency (ER) | payer SELFPAY ==
--- OUTSIDE RECORDS SUMMARY | 2020-01-25 22:24 | XMS REPORT | Clinical Summary ---
:1985 Author Organization [facility] Address [address] [place] [address] Care Team Providers Name Role Phone Vijay [...] Not on file Results Not on fileafter 01/24/2019 Advance Directives For more information, please contact:[address] [phone] Code Status Date Activated Date Inactivated Comments Full Code 03/16/2017 7:21 PM 03/17/2017 7:28 PM This code status was determined by: Patient
--- OUTSIDE RECORDS SUMMARY | 2020-01-25 22:25 | XMS REPORT | Continuity of Care Document ---
:1985 Author Organization [facility] t Address [address] [place] [address] Care Team Providers Name Role Phone Maame Luke Primary Care Physician Ernie Hassan Attending Clinician Unavailable Ernie Hassan Attending Clinician Unavailable Joseph GARCIA Attending Clinician Unavailable Ernie Hassan Admitting Clinician Unavailable Joseph GARCIA Admitting Clinician Unavailable Problems Condition Condition Condition Status Onset Resolution Last Treating Co mments Source Name Details Category Date Date Treatment Clinician Date Chest pain Chest pain Disease Active 2016-[address] [facility] Chest Chest Disease Active 2015-[address] [facility] [address] [facility], [facility]ie [facility]: Me dical d type d type 00 Center Allergies, Adverse Reactions, Alerts This patient has no known allergies or adverse reactions. Family History Family Member Diagnosis Comments Start Date Stop Date Source Natural father Heart attack [facility] Paternal grandfather Heart attack [facility] Social History Social Habit Start Date Stop Date Quantity Comments Source History of tobacco Cigarette Sm[facility] Alcohol Comment socially [facility] Sex Assigned At [facility] Cigarettes smoked 2017-03-16 2017-03-16 [facility] - current (pack per 00:00:00 00:00:00 [facility] Center day) - Reported Smoking Status Start Date Stop Date Source Current every day smoker 2017-03-16 00:00:00 [facility] Medications This patient has no known medications. Procedures This patient has no known procedures. Encounters Start End Encounter Admission Attending Care Care Encounter Source Date/Time Date/Time Type Type Clinicians Facility Department ID 2019-12-28 Inpatient 3 Ted Hassan [facility] [id number] 22:04:00 Ted Hassan - [address] [facility] 2019-12-28 2020-01-02 Inpatient 3 Ted Hassan [facility] [id number] [facility]:04[facility] Test Description Test Time Test Comments Results Result Comments Source RPR Qualitative 2019-12-29 16:27:39 Test Item Value Reference Range Interpretation Comme nts RPR Qual (test code = RPR Qual) Non-Reactive Non-Reactive Reactive Control (test code = Reactive Control) Reactive Weak Reactive Control (test code = Weak Reactive Weak Reactive Control) Non-Reactive Control (test code = Non-Reactive Non-Reactive Control) Lot # (test code = Lot #) [id number] N Expiration Dt (test code = Expiration Dt) 02-07-2021 N Lipid [id number] 07:26:04 Test Item Value Reference Range Interpretation Comments Cholesterol Total 222 mg/dL N Low-risk l evel (test code = (desirable) - < 200 Cholesterol Total) mg/dlMode rate-risk level (borderli ne) - 200-239 mg/dlHigh-risk level - ?240 mg/dl Triglycerides (test 135 mg/dL N Normal - <150 code = Triglycerides) mg/dlB orderline high - 150-199 mg/dl High - 200-499 mg/dl Very high - ?500 mg/ dl HDL (test code = HDL) 35.60 mg/dL N Low-ri sk level (desirable) - ? 60 mg/dlHigh-risk level (undesirable) - <40 mg/dl LDL (test code = LDL) 159 mg/dL N The eq uation being used in this calculation is LDL = (Chol - HDL) - (Trig / 5) VLDL (test code = 27 mg/dL 5-40 The equati on being VLDL) used in this calculation is VLDL = Trig / 5 Chol/HDL (test code = 6.2 ratio <=5.0 H Chol/HDL) LDL/HDL Ratio (test 6 N The equa tion being code = LDL/HDL Ratio) used i n this calculation is LDL/HDL Ratio=L DL Calc/HDL Chol Thyroid Stimulating [id number] 07:26:04 Test Item Value Reference Range Interpretation Comments TSH (test code = TSH) 1.757 mcIU/mL 0.550-4.780 Hemoglobin [id number] 07:26:03 Test Item Value Reference Range Interpretation Comments Hemoglobin A1c (test code 4.9 % 4.0-5.8 Di abetic >=6.5 = Hemoglobin A1c) %Prediabet es 5.7-6.4 %Normal <5.7 % MYOCARD IMAGING, MULTI, [id number] 14:45:00FINAL REPORT PROCEDURE: Rest/Stress MYOCARDIAL PERFUSION SPECT with treadm ill\XA9\ CPT CODE: 09271 INDICATION: Chest pain HISTORY: Cardiac risk factors: Hypertension. Other cardiovascular history: No reported CAD. Recent cardiac symptoms: Chest pain.Current cardiovascular-related medications: Metoprolol. PROTOCOL: 10.5 mCi of [...] was 99 beats/min at rest; peak heart ratewas 148 beats/min (78% of MPHR). BP was 150/103 mmHg at rest; peak BP was 175/90 mmHg. Exercise was stopped for fatigue. The patient experienced chest tightness; treatment was not required. PreliminaryECG evaluation revealed sinus rhythm at rest and [...] 4. Normal resting LV function. 5. Normal extracardiactracer distribution. 6. No previous [facility] study for comparison. NONINVASIVE RISK STRATIFICATION: The above findings are considered low risk (<1% annual mortality rate) based on the following criterion:- Normal or small myocardial perfusion defect at rest or with stress(JACC. 2012;59(9):355-52.) Signed: Ignacio Ruvalcaba Verified Date/Time: 03/17/2017 14:45:11 Reading Location: [address] Reading Room HEMOGLOBIN [id number] 08:29:00 Test Item Value Reference Range Interpretation Comments HEMOGLOBIN A1C (BEAKER) (test code = 5.5 % 4.3-6.1 368) CREATINE KINASE (CK), TOTAL AND [id number] 02:45:00 Test Item Value Reference Range Interpretation Comments CREATINE KINASE TOTAL (BEAKER) 34 U/L 29-200 (test code = 380) CREATINE KINASE-MB (BEAKER) (test 0.4 ng/mL 0.0-6.6 code = 750) CREATINE KINASE-MB INDEX (BEAKER) 1.2 % (test code = 395) CK-MB Reference Range:<6.7 Normal6.7-10.0 Borderline>10.0 AbnormalTROPONIN [id number] 02:45:00 Test Item Value Reference Range Interpretation [...] and persistent tachyarrhythmia.RAD, CHEST, 1 VIEW, NON [id number] 20:40:00Reason for exam:->chest painShould this be performed at the bedside?->YesFINAL REPORT EXAMINATION: AP PORTABLE CHEST RADIOGRAPH CLINICAL INDICATION:Chest pain IMPRESSION: Compared with 04/30/2016. No evidence of focal lung consolidation, pulmonary edema or pleural effusion. The heart size is normal. Mediastinal contours are sharp. No evidence of an acute osseous abnormality or pneumothorax. Signed: Igor Castle MDReport Verified Date/Time: 03/16/2017 20:40:21 Reading Location: [address] Reading Room B-TYPE NATRIURETIC FACTOR (BNP)2017-03-16 20:30:00 Test Item Value Reference Range Interpretation Comments B-TYPE NATRIURETIC PEPTIDE (BEAKER) < pg/mL 0-100 (test code = 700) COMPREHENSIVE METABOLIC [id number] 20:30:00 Test Item Value Reference Range Interpretation [...] ATED GFR. CREATINE KINASE (CK), TOTAL AND [id number] 20:28:00 Test Item Value Reference Range Interpretation Comments CREATINE KINASE TOTAL (BEAKER) 50 U/L 29-200 (test code = 380) CREATINE KINASE-MB (BEAKER) (test 0.5 ng/mL 0.0-6.6 code = 750) CREATINE KINASE-MB INDEX (BEAKER) 1.0 % (test code = 395) CK-MB Reference Range:<6.7 Normal6.7-10.0 Borderline>10.0 AbnormalTROPONIN [id number] 20:28:00 Test Item Value Reference Range Interpretation [...] failure, acidosis, acute neurological disease, and persistent tachyarrhythmia.[id number] 20:21:00 Test Item Value Reference Range Interpretation Comments MAGNESIUM (BEAKER) 2.2 mg/dL 1.6-2.6 Specimen slightly (test code = 627) hemolyzed [id number] 20:21:00 Test Item Value Reference Range Interpretation Comments PHOSPHORUS (BEAKER) 3.9 mg/dL 2.3-4.7 Specimen slightly (test code = 604) hemolyzed LIPID [id number] 20:21:00 Test Item Value Reference Range Interpretation [...] Borderline 130-159 High 160-189 Very High >=190PROTHROMBIN TIME/[id number] 20:07:00 Test Item Value Reference Range Interpretation Comments PROTIME (BEAKER) (test code = 13.0 seconds 11.7-14.7 759) INR (BEAKER) (test code = 370) 1.0 <=5.9 RECOMMENDED COUMADIN/WARFARIN INR THERAPY RANGESSTANDARD DOSE: 2.0 - 3.0 Includes: PROPHYLAXIS forvenous thrombosis, systemic embolization; TREATMENT for venous thrombosis and/or pulmonary embolus.HIGH RISK: Target INR is 2.5-3.5 for patients with mechanical heart valves.[id number] 20:07:00 Test Item Value Reference Range Interpretation Comments PARTIAL THROMBOPLASTIN TIME 26.9 seconds 22.5-36.0 (BEAKER) (test code = 760) CBC W/PLT COUNT & AUTO [id number] 19:57:00 Test Item Value Reference Range Interpretation [...] % 0-1 PERCENT (BEAKER) (test code = 8265)
[2020-01-25 23:15] LABS: Absolute Lymphocytes (CBC) 2.4 K/uL (0.7-4.9); Basophils % 1.3 % (0-1.3); Hematocrit 47.5 % (39.6-49.0); Lymphocytes % 39.9 % (15.3-44.8); RBC Red Blood Cell Count 5.42 M/uL (4.33-5.43)
[2020-01-25 23:19] LABS: Protime INR 0.97
[2020-01-25] MEDS ORDERED: NA CHLORIDE 0.9% 1,000 ML ONE (23:31)
[2020-01-25 23:39] LABS: AST/SGOT 140 U/L (15-37); Albumin 3.6 g/dL (3.4-5.0); Alkaline Phosphatase 96 U/L (45-117); BUN Blood Urea Nitrogen 6 mg/dL (7-18); Bicarbonate 28 mmol/L (21-32); Bilirubin Direct 0.1 mg/dL (0-0.2); Bilirubin Total 0.3 mg/dL (0.2-1.0); Glucose Level 150 mg/dL (74-106); Potassium 3.5 mmol/L (3.5-5.1); Protein, Total 7.7 g/dL (6.4-8.2); Sodium Level 143 mmol/L (136-145)
[2020-01-25 23:40] LABS: ALT/SGPT 470 U/L (12-78)
[2020-01-25 23:49] LABS: Barbiturates NEGATIVE (NEGATIVE); Benzodiazepines POSITIVE (NEGATIVE); Cocaine NEGATIVE (NEGATIVE); METHAMPHETAM NEGATIVE (NEGATIVE); Methadone NEGATIVE (NEGATIVE); Opiates NEGATIVE (NEGATIVE); Phencyclidine NEGATIVE (NEGATIVE); THC Cannibis NEGATIVE (NEGATIVE)
[2020-01-26 00:33] LABS: Urine Glucose NEGATIVE (NEG); Urine Specific Gravity 1.025 (1.005-1.030)
[2020-01-26 00:34] LABS: Urine Blood NEGATIVE (NEG); Urine Protein 2+ (NEG)
[2020-01-26] MEDS ORDERED: PROMETHAZINE INJ 25 MG/ML AMP ONE (00:51)
[2020-01-26] MEDS ORDERED: NA CHLORIDE 0.9% 1,000 ML ONE (00:52)
[2020-01-26] MEDS ORDERED: clonazePAM 0.5 MG TAB ONE (07:39)
[2020-01-26] MEDS ORDERED: ONDANSETRON 4 MG/2 ML VIAL ONE (09:38)
[2020-01-26] MEDS ORDERED: DIAZEPAM 5 MG TABLET ONE (10:32)
[2020-01-26] MEDS ORDERED: ACETAMINOPHEN 500 MG TAB ONE (18:59)
[2020-01-26] MEDS ORDERED: MELATONIN 5 MG TABLET PO ONE (21:33)
[2020-01-27] MEDS ORDERED: METOPROLOL TAR 50 MG TAB ONE (10:41)
[2020-01-27] MEDS ORDERED: clonazePAM 0.5 MG TAB ONE ×2 (10:41→22:35)
[2020-01-27] MEDS ORDERED: VENLAFAXINE HCL XR 75 MG CAP PO ONE (11:00)
[2020-01-27] MEDS ORDERED: METOPROLOL XL 50 MG TAB PO ONE (22:35)
--- NOTE | 2020-01-28 08:45 | EDPHYS ---
Physician Documentation [facility] Name: Srini Simpson Age: 34 yrs Sex: Male : 1985 Arrival Date: 01/25/2020 Time: 22:23 Bed 15 Private MD: ED Physician Jeevan Shaw HPI: 01/24 22:46 This 34 yrs old Male presents to ER via Unassigned with complaints of snw Suicidal Ideation. 22:46 The patient presents to the emergency department with depression, over a relationship, snw has had a recent break-up, a history of a suicide gesture, drank hand telecommunications consultant. Onset: The symptoms/episode began/occurred suddenly. Past psychiatric history: Prior diagnosis: depression, Psychiatric medications include: Klonipin, trazadone, hydroxyzine, Primary psychiatric physician: the patient's psychiatric physician is not known, the patient has had a prior suicide gesture, where the patient took pills/meds, the patient has a previous inpatient psychiatric history, at [facility], the patient's last psychiatric treatment was appt with [facility] tomorrow. Associated signs and symptoms: The patient has no apparent associated signs or symptoms. Severity of symptoms: At their worst the symptoms were moderate. The patient has experienced similar episodes in the past. It is unknown whether or not the patient has recently seen a physician. Historical: - Allergies: 23:42 No Known Allergies; ls4 - Home Meds: 23:42 Klonopin 1 mg Oral tab 1 tab 2 times per day [Active]; metoprolol tartrate 50 mg Oral ls4 tab 1 tab 2 times per day [Active]; trazodone 50 mg Oral tab 1 tab for Major Depressive Disorder [Active]; 01/26 10:25 hydroxyzine HCl 50 mg Oral tab 1 tab 4 times per day for Anxiety [Active]; Effexor XR aa5 150 mg Oral cp24 every morning [Active]; Effexor XR 75 mg Oral cp24 1 cap every morning [Active]; - PMHx: 01/24 23:42 Anxiety; Depression; Hypertension; Pyloric Stenosis; ls4 - Immunization history:: Adult Immunizations up to date. - Social history:: Smoking status: Reported history of juuling and/or vaping. Patient uses alcohol, on a daily basis. about 10 beers per night . ROS: 22:45 Constitutional: Negative for fever, chills, and weight loss, Eyes: Negative for injury, snw pain, redness, and discharge, ENT: Negative for injury, pain, and discharge, Neck: Negative for injury, pain, and swelling, Cardiovascular: Negative for chest pain, palpitations, and edema, Respiratory: Negative for shortness of breath, cough, wheezing, and pleuritic chest pain, Abdomen/GI: Negative for abdominal pain, nausea, vomiting, diarrhea, and constipation, Back: Negative for injury and pain, : Negative for injury, bleeding, discharge, and swelling, MS/Extremity: Negative for injury and deformity, Skin: Negative for injury, rash, and discoloration, Neuro: Negative for headache, weakness, numbness, tingling, and seizure. 22:45 Psych: Positive for anxiety, depression, suicide gesture, pt drank 1 oz of hand telecommunications consultant followed by violent vomiting 1 hour ago. Exam: 22:45 Constitutional: This is a well developed, well nourished patient who is awake, alert, snw and in no acute distress. Fruity odor Head/Face: Normocephalic, atraumatic. Eyes: Pupils equal round and reactive to light, extra-ocular motions intact. Lids and lashes normal. Conjunctiva and sclera are non-icteric and not injected. Cornea within normal limits. Periorbital areas with no swelling, redness, or edema. ENT: Nares patent. No nasal discharge, no septal abnormalities noted. Tympanic membranes are normal and external auditory canals are clear. Oropharynx with no redness, swelling, or masses, exudates, or evidence of obstruction, uvula midline. Mucous membranes moist. Neck: Trachea midline, no thyromegaly or masses palpated, and no cervical lymphadenopathy. Supple, full range of motion without nuchal rigidity, or vertebral point tenderness. No Meningismus. Chest/axilla: Normal chest wall appearance and motion. Nontender with no deformity. No lesions are appreciated. Respiratory: Lungs have equal breath sounds bilaterally, clear to auscultation and percussion. No rales, rhonchi or wheezes noted. No increased work of breathing, no retractions or nasal flaring. Abdomen/GI: Soft, non-tender, with normal bowel sounds. No distension or tympany. No guarding or rebound. No evidence of tenderness throughout. Back: No spinal tenderness. No costovertebral tenderness. Full range of motion. Skin: Warm, dry with normal turgor. Normal color with no rashes, no lesions, and no evidence of cellulitis. 22:45 Cardiovascular: Rate: tachycardic, Rhythm: regular. 22:49 MS/ Extremity: Pulses equal, no cyanosis. Neurovascular intact. Full, normal range snw of motion. Neuro: Awake and alert, GCS 15, oriented to person, place, time, and situation. Cranial nerves II-XII grossly intact. Motor strength 5/5 in all extremities. Sensory grossly intact. Cerebellar exam normal. Normal gait. 22:49 Psych: Behavior/mood is cooperative, anxious, depressed, Affect is calm, Oriented to person, place, time, Patient having thoughts of suicide. Plan for suicide is Pt states he was upset that he and his girlfriend broke up and he "didn't want to feel that way anymore", pt ingested 1 oz hand telecommunications consultant. When questioned about the incident, pt was asked if he was just so sad that he wanted temporary relief from the sadness or if he wanted to . Pt states he just wanted temporary relief. Pt has an appt with [facility] tomorrow. 01/25 10:29 ECG was reviewed by the Attending Physician. kdr Vital Signs: 01/24 22:23 BP 159 / 107; Pulse 104; Resp 16; Temp 98.0; Pulse Ox 100% on R/A; Weight 83.91 kg; ls4 Height 5 ft. 7 in. (170.18 cm) (R); Pain 0/10; 01/25 06:45 BP 133 / 95; Pulse 77; Resp 18; Temp 98.2(O); Pulse Ox 97% on R/A; oe 10:15 BP 134 / 89; Pulse 104; Resp 22; Pulse Ox 98% on R/A; Pain 4/10; hb 14:00 BP 132 / 86; Pulse 89; Resp 16; Pulse Ox 99% on R/A; hb 18:00 BP 132 / 80; Pulse 83; Resp 16; Pulse Ox 99% on R/A; hb 01/26 06:00 BP 166 / 98; Pulse 66; Resp 18; Temp 98; Pulse Ox 99% ; wh 10:00 BP 151 / 102; Pulse 80; Resp 20 S; Temp 97.8(O); Pulse Ox 99% on R/A; aa5 14:00 BP 143 / 94; Pulse 70; Resp 16 S; Temp 98.1(O); Pulse Ox 97% on R/A; aa5 18:00 BP 154 / 96; Pulse 67; Resp 18 S; Temp 98.2(O); Pulse Ox 97% on R/A; aa5 22:15 BP 159 / 103; Pulse 63; dh4 01/27 04:55 BP 153 / 102; Pulse 62; Resp 17; Temp 98(O); Pulse Ox 98% on R/A; ar5 05:17 BP 142 / 80; Pulse 66; Resp 17; Pulse Ox 98% on R/A; sg 09:15 BP 153 / 101; Pulse 72; Resp 16; Temp 97.7; Pulse Ox 99% ; rb1 11:48 BP 143 / 100; Pulse 63; Resp 16; Temp 98.2; Pulse Ox 100% ; rb1 01/24 22:23 Body Mass Index 28.97 (83.91 kg, 170.18 cm) ls4 MDM: 01/24 22:36 Patient medically screened. snw 01/25 00:30 Data reviewed: vital signs, nurses notes. Data interpreted: Pulse oximetry: on room air snw is 100 %. Interpretation: normal. Counseling: I had a detailed discussion with the patient and/or guardian regarding: the historical points, exam findings, and any diagnostic results supporting the discharge/admit diagnosis, lab results. Transition of care: After a detail discussion of the patient's case, care is transferred to Luis Carr MD. 17:23 Awaiting: psych bed. Pt in no distress. States he is unable to sleep well but feels snw better than last pm. 01/26 00:38 Response to treatment: pt sleeping in no distress. Awaiting transfer to Psych facility. snw 00:38 Transition of care: After a detail discussion of the patient's case, care is snw transferred to Fabrizio Marshall MD. 06:16 ED course: Patient not in any distress. Vital signs stable. Awaiting [facility] to [facility]. 19:23 ED course: eating food trays, watching television, no distress noted. snw 23:56 ED course: Pt in no distress. Had Metoprolol and Klonopin as is his nightly medication snw regimen. Awaiting psych facility transfer. Asleep at this time.. 01/27 07:58 ED course: NAD, VSS, resting comfortably. Behaving appropriately with staff. Awaiting mh7 transfer to psychiatric facility.. 01/24 22:44 Order name: Acetaminophen; Complete Time: 23:41 w 01/24 22:44 Order name: Basic Metabolic Panel; Complete Time: 23:41 w 01/24 22:44 Order name: CBC with Diff; Complete Time: 23:23 w 01/24 22:44 Order name: ETOH Level; Complete Time: 23:39 w 01/24 22:44 Order name: Hepatic Function; Complete Time: 23:41 [facility] 01/24 22:44 Order name: PT-INR; Complete Time: 23:23 w 01/24 22:44 Order name: Ptt, Activated; Complete Time: 23:23 [facility] 01/24 22:44 Order name: Salicylate; Complete Time: 23:23 [facility] 01/24 22:44 Order name: Urine Drug Screen; Complete Time: 23:53 w 01/24 23:38 Order name: Urine Dipstick--Ancillary (enter results); Complete Time: 00:54 [facility] 01/25 06:45 Order name: ETOH Level; Complete Time: 09:07 [facility] 01/27 03:41 Order name: SARS-COV-2 RT PCR; Complete Time: 08:26 EDMS 01/24 22:44 Order name: EKG; Complete Time: 22:45 [facility] 01/24 22:44 Order name: EKG - Nurse/Tech; Complete Time: 23:07 [facility] 01/24 22:44 Order name: IV Saline Lock; Complete Time: 23:07 [facility] 01/24 22:44 Order name: Labs collected and sent; Complete Time: 23:07 [facility] 01/24 22:44 Order name: Urine Dipstick-Ancillary (obtain specimen); Complete Time: 23:33 w 01/25 06:25 Order name: Diet Regular; Complete Time: 06:26 bb 01/25 07:18 Order name: Diet Finger Food; Complete Time: 07:18 dh3 01/25 10:22 Order name: EKG; Complete Time: 10:23 hb 01/25 10:22 Order name: EKG - Nurse/Tech; Complete Time: 10:22 hb 01/25 11:58 Order name: Diet Finger Food; Complete Time: 11:59 3 01/26 07:23 Order name: Diet Finger Food; Complete Time: 07:23 aa5 01/26 10:41 Order name: Diet Finger Food; Complete Time: 10:41 aa5 01/26 16:51 Order name: Diet Finger Food; Complete Time: 16:51 aa5 01/27 07:13 Order name: Diet Finger Food; Complete Time: 07:13 rb1 EC/17 10:29 Rate is 92 beats/min. Rhythm is regular, Normal Sinus Rhythm with No ectopy. QRS [place] kdr is Normal. LA interval is normal. QRS interval is normal. QT interval is normal. Clinical impression: Normal ECG. Administered Medications: 01/24 23:10 Drug: NS 0.9% 1000 ml Route: IV; Rate: 1 bolus; Site: left antecubital; ls4 01/25 00:10 Follow up: Response: No adverse reaction; IV Status: Completed infusion; IV Intake: jb4 1000ml 00:45 Drug: NS 0.9% 1000 ml Route: IV; Rate: 1 bolus; Site: left antecubital; jb4 01:45 Follow up: Response: No adverse reaction; IV Status: Completed infusion jb4 00:45 Drug: Phenergan 12.5 mg Route: IVP; Site: left antecubital; jb4 01:15 Follow up: Response: No adverse reaction; Nausea is decreased jb4 07:37 Drug: KLONopin 1 mg Route: PO; iw 08:35 Follow up: Response: No adverse reaction hb 09:32 Drug: Zofran (Ondansetron) 4 mg Route: IVP; Site: left antecubital; hb 10:23 Follow up: Response: No adverse reaction hb 10:28 Drug: Valium 5 mg Route: PO; hb 21:16 Follow up: Response: No adverse reaction; RASS: Alert and Calm (0) wh 21:38 Drug: Melatonin 10 mg Route: PO; 01/26 01:11 Follow up: Response: No adverse reaction wh 10:31 Drug: KLONopin 1 mg Route: PO; aa5 14:11 Follow up: Response: No adverse reaction aa5 10:31 Drug: Metoprolol 50 mg Route: PO; aa5 14:11 Follow up: Response: No adverse reaction aa5 10:40 Drug: Effexor XR 75 mg Route: PO; aa5 14:11 Follow up: Response: No adverse reaction aa5 10:40 Drug: Effexor XR 150 mg Route: PO; aa5 14:11 Follow up: Response: No adverse reaction aa5 22:28 Drug: KLONopin 1 mg Route: PO; 22:28 Drug: Metoprolol 50 mg Route: PO; 01/27 09:30 Drug: Metoprolol 50 mg Route: PO; rb1 10:15 Follow up: Response: No adverse reaction rb1 09:30 Drug: KLONopin 1 mg Route: PO; rb1 10:15 Follow up: Response: No adverse reaction rb1 10:15 Drug: Effexor XR 75 mg Route: PO; rb1 10:15 Drug: Effexor XR 150 mg Route: PO; rb1 Disposition: 08:33 Co-signature as Attending Physician, Jeevan Shaw MD I agree with the assessment and [facility] plan of care. Disposition: 01/28/20 08:44 Transfer ordered to [facility]. Diagnosis are Suicidal ideations, Major depressive disorder, recurrent, Alcohol abuse. - Reason for transfer: Higher level of care. - Accepting physician is to dr Patel at [facility]. - Condition is Fair. - Problem is new. - Symptoms have improved. Signatures: Dispatcher [employer] Jeevan Bocanegra MD MD cha Lam, Pin, MD MD pkl Rittger, Kevin, MD MD kdr Waters, Shelly, SENIOR STATISTICIAN-C SENIOR STATISTICIAN-Csnw Snow Rincon RN RN iw Calderon, Audri RN RN aa5 Cinda Tijerina RN RN rb1 Iwona Granados RN RN hb Bryson, James, RN RN jb4 Margarette Peck Kelsey De Los Santos RN RN ls4 Roque Husain MD MD mh7 Corrections: (The following items were deleted from the chart) 01/24 23:42 23:41 Arterial Blood Gas+RC.LAB.BRZ ordered. [facility] 01/26 10:25 01/24 23:42 Home Meds: hydroxyzine HCl 50 mg Oral tab 1 tab 4 times per day for aa5 Anxiety; ls4 01/27 03:41 03:21 CORONAVIRUS+MRIRWIN.BRZ ordered. EDMS EDMS 11:51 08:44 01/28/2020 08:44 Transfer ordered to [facility]. Diagnosis is Suicidal rb1 ideations; Major depressive disorder, recurrent; Alcohol abuse. Reason for transfer: Higher level of care. Accepting physician is to dr Patel at [facility]. Condition is Fair. Problem is new. Symptoms have improved. nehemias
--- NOTE | 2020-01-28 08:45 | ER ---
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 Coronavirus screen: At this time, the client does not indicate any symptoms associated with coronavirus-19. Ebola Screen: No symptoms or risks identified at this time. Initial Sepsis Screen: Does the patient meet any 2 criteria? No. Patient's initial sepsis screen is negative. Risk Assessment: Do you want to hurt yourself or someone else? Patient reports no desire to harm self or others. 22:23 Method Of Arrival: EMS: [facility] ls4 22:23 Initial Sepsis Screen: Does the patient have a suspected source of infection? No. ls4 Patient's initial sepsis screen is negative. Onset of symptoms. Care prior to arrival: None. Activity prior to arrival: None. 22:23 Acuity: CHRISTINE 2 ls4 Triage Assessment: 23:38 General: Appears in no apparent distress. Behavior is cooperative, flat. Pain: Denies ls4 pain. Neuro: No deficits noted. Cardiovascular: No deficits noted. Cardiovascular: Capillary refill < 3 seconds Clubbing of nail beds is absent Patient's skin is warm and dry. Rhythm is regular. Respiratory: No deficits noted. GI: No deficits noted. No signs and/or symptoms were reported involving the gastrointestinal system. : No deficits noted. No signs and/or symptoms were reported regarding the genitourinary system. Derm: No deficits noted. No signs and/or symptoms reported regarding the dermatologic system. Musculoskeletal: No deficits noted. No signs and/or symptoms reported regarding the musculoskeletal system. Historical: - Allergies: 23:42 No Known Allergies; ls4 - Home Meds: 23:42 Klonopin 1 mg Oral tab 1 tab 2 times per day [Active]; metoprolol tartrate 50 mg Oral ls4 tab 1 tab 2 times per day [Active]; trazodone 50 mg Oral tab 1 tab for Major Depressive Disorder [Active]; 01/26 10:25 hydroxyzine HCl 50 mg Oral tab 1 tab 4 times per day for Anxiety [Active]; Effexor XR aa5 150 mg Oral cp24 every morning [Active]; Effexor XR 75 mg Oral cp24 1 cap every morning [Active]; - PMHx: 01/24 23:42 Anxiety; Depression; Hypertension; Pyloric Stenosis; ls4 - Immunization history:: Adult Immunizations up to date. - Social history:: Smoking status: Reported history of juuling and/or vaping. Patient uses alcohol, on a daily basis. about 10 beers per night . Screenin/17 09:15 Abuse screen: Denies threats or abuse. Denies injuries from another. Nutritional hb screening: No deficits noted. Tuberculosis screening: No symptoms or risk factors identified. Fall Risk None identified. Assessment: 01/24 22:32 General: SEE TRIAGE . ls4 23:43 Reassessment: Patient appears in no apparent distress at this time. Patient and/or ls4 family updated on plan of care and expected duration. Pain level reassessed. Patient is alert, oriented x 3, equal unlabored respirations, skin warm/dry/pink. 01/25 00:00 Reassessment: Patient and/or family updated on plan of care and expected duration. Pain jb4 level reassessed. Patient is alert, oriented x 3, equal unlabored respirations, skin warm/dry/pink. Report received from ALTON Cole. 01:00 Reassessment: Patient and/or family updated on plan of care and expected duration. Pain jb4 level reassessed. Patient is alert, oriented x 3, equal unlabored respirations, skin warm/dry/pink. Patient states feeling better. 02:00 Reassessment: Patient appears in no apparent distress at this time. Patient and/or jb4 family updated on plan of care and expected duration. Pain level reassessed. Patient is alert, oriented x 3, equal unlabored respirations, skin warm/dry/pink. 03:00 Reassessment: Patient appears in no apparent distress at this time. Patient and/or jb4 family updated on plan of care and expected duration. Pain level reassessed. Patient is alert, oriented x 3, equal unlabored respirations, skin warm/dry/pink. 04:00 Reassessment: Patient and/or family updated on plan of care and expected duration. Pain jb4 level reassessed. PT is resting in bed with eyes closed. Respirations are even and unlabored with no s/s of pain or distress noted. 05:00 Reassessment: No changes from previously documented assessment. Patient and/or family jb4 updated on plan of care and expected duration. Pain level reassessed. 06:00 Reassessment: Patient appears in no apparent distress at this time. Patient and/or jb4 family updated on plan of care and expected duration. Pain level reassessed. Patient is alert, oriented x 3, equal unlabored respirations, skin warm/dry/pink. 07:00 Reassessment: Patient appears in no apparent distress at this time. Patient and/or jb4 family updated on plan of care and expected duration. Pain level reassessed. Patient is alert, oriented x 3, equal unlabored respirations, skin warm/dry/pink. 07:40 Reassessment: pt states he is no longer suicidal, states his girlfriend left him last iw night which caused him to feel suicidal and he drank one ounce of hand bell spinner, also states he drank four "[employer]" beers last night, has hx of anxiety and depression, see [facility] and had appt yesterday but missed it. Pt requested to have his Klonopin this morning. Dr. Soni notified. POC is to have [facility] evaluate him after his ETOH level is negative. 08:46 Reassessment: pt speaking with [facility] screener via ipad. iw 09:13 Reassessment: [facility] recommends inpatient treatment, pt reported he is still having iw suicidal ideation, denies homicidal ideation, pt missed his appt on Jan 09, next appt is not until March. 10:23 Reassessment: Pt c/o substernal chest pressure, palpitations, and SOB. Dr. Soni hb notified, repeat EKG performed and show to provider. Verbal reassurance given and Valium administered as ordered. 11:15 Reassessment: Patient appears in no apparent distress at this time. Patient and/or hb family updated on plan of care and expected duration. Pain level reassessed. Patient is alert, oriented x 3, equal unlabored respirations, skin warm/dry/pink. Patient states symptoms have improved. 12:00 Reassessment: Patient appears in no apparent distress at this time. Patient and/or hb family updated on plan of care and expected duration. Pain level reassessed. Patient is alert, oriented x 3, equal unlabored respirations, skin warm/dry/pink. Sitter remains at bedside. 13:06 Reassessment: Patient appears in no apparent distress at this time. Patient and/or hb family updated on plan of care and expected duration. Pain level reassessed. Patient is alert, oriented x 3, equal unlabored respirations, skin warm/dry/pink. 14:00 Reassessment: Patient appears in no apparent distress at this time. Patient and/or hb family updated on plan of care and expected duration. Pain level reassessed. Patient is alert, oriented x 3, equal unlabored respirations, skin warm/dry/pink. 15:00 Reassessment: Patient appears in no apparent distress at this time. No changes from hb previously documented assessment. Patient and/or family updated on plan of care and expected duration. Pain level reassessed. Patient is alert, oriented x 3, equal unlabored respirations, skin warm/dry/pink. 16:00 Reassessment: Patient appears in no apparent distress at this time. Patient and/or hb family updated on plan of care and expected duration. Pain level reassessed. Patient is alert, oriented x 3, equal unlabored respirations, skin warm/dry/pink. 17:30 Reassessment: Patient appears in no apparent distress at this time. No changes from hb previously documented assessment. Patient and/or family updated on plan of care and expected duration. Pain level reassessed. 18:30 Reassessment: Patient appears in no apparent distress at this time. No changes from hb previously documented assessment. Patient and/or family updated on plan of care and expected duration. Pain level reassessed. Patient is alert, oriented x 3, equal unlabored respirations, skin warm/dry/pink. 19:39 Reassessment: Patient appears in no apparent distress at this time. Patient is alert, fu oriented x 3, equal unlabored respirations, skin warm/dry/pink. Patient stated that he has no thoughts of hurting himself, he further stated that he is having depression and he had no sleep since last night. 21:00 General: Appears in no apparent distress. Behavior is calm, cooperative. Pain: Denies pain. Neuro: Level of Consciousness is awake, alert, obeys commands, Oriented to person, place, time, situation. Cardiovascular: Capillary refill < 3 seconds. Respiratory: Airway is patent Respiratory effort is even, unlabored, Respiratory pattern is regular, symmetrical. GI: Abdomen is flat, non-distended. : No signs and/or symptoms were reported regarding the genitourinary system. EENT: No signs and/or symptoms were reported regarding the EENT system. Derm: Skin is intact, is healthy with good turgor, Skin is pink, warm \\T\\ dry. normal. Musculoskeletal: Circulation, motion, and sensation intact. 22:30 Reassessment: Patient appears in no apparent distress at this time. No changes from previously documented assessment. Patient and/or family updated on plan of care and expected duration. Pain level reassessed. Patient is alert, oriented x 3, equal unlabored respirations, skin warm/dry/pink. 01/26 00:00 Reassessment: Pt sleeping well no signs of distress noted. 01:30 Reassessment: Pt sleeping well no signs of distress noted. 03:00 Reassessment: Pt sleeping well no signs of distress noted. 04:30 Reassessment: Pt sleeping well no signs of distress noted. 06:00 Reassessment: Patient and/or family updated on plan of care and expected duration. Pain wh level reassessed. Patient is alert, oriented x 3, equal unlabored respirations, skin warm/dry/pink. 07:00 Reassessment: Pt resting in bed with eyes closed, respirations even and unlabored, skin aa5 is pink/warm/dry. . 07:23 Reassessment: 20 G noted to L AC, easy to flush with 10cc NS. Pt notified of POC as aa5 recommended by [facility] to transfer to psych facility, pt notified of long wait time, pt verbalizes understanding. Breakfast tray ordered. Pt states feeling better and currently denies suicidal ideations. General: Appears comfortable, Behavior is calm, cooperative. Pain: Denies pain. Neuro: Level of Consciousness is awake, alert, obeys commands, Oriented to person, place, time, situation. Cardiovascular: Heart tones S1 S2 present Rhythm is regular. Respiratory: Airway is patent Respiratory effort is even, unlabored, Respiratory pattern is regular, symmetrical. GI: Abdomen is non-distended, Bowel sounds present X 4 quads. Abd is soft and non tender X 4 quads. : No signs and/or symptoms were reported regarding the genitourinary system. EENT: No signs and/or symptoms were reported regarding the EENT system. Derm: Skin is pink, warm \\T\\ dry. Musculoskeletal: Range of motion: intact in all extremities. 08:30 Reassessment: Pt given breakfast tray. . aa5 09:00 Reassessment: Patient is alert, oriented x 3, equal unlabored respirations, skin aa5 warm/dry/pink. 09:40 Reassessment: Pt lying down in bed watching TV. . aa5 10:15 Reassessment: Patient is alert, oriented x 3, equal unlabored respirations, skin aa5 warm/dry/pink. Pt requesting to take his morning medications, was notified. . 10:32 Reassessment: Awaiting Effexor from pharmacy . aa5 11:40 Reassessment: Lunch tray given to pt . aa5 12:00 Reassessment: Patient is alert, oriented x 3, equal unlabored respirations, skin aa5 warm/dry/pink. Pt sitting up in bed eating lunch, pt given soft drink (coke) per request. . 13:00 Reassessment: Pt lying down in bed watching TV. . aa5 14:00 Reassessment: Pt lying down in bed watching TV. Equal and unlabored respirations, skin aa5 is normal/warm/dry. . 14:21 Reassessment: Pt using [employer] Ipad to facetime with sister (Iwona Simpson). . aa5 15:00 Reassessment: Patient is alert, oriented x 3, equal unlabored respirations, skin aa5 warm/dry/pink. Pt sitting up in bed watching TV. 16:00 Reassessment: Patient is alert, oriented x 3, equal unlabored respirations, skin aa5 warm/dry/pink. Pt sitting up in bed watching TV. . 17:00 Reassessment: Pt resting in bed with eyes closed, respirations even and unlabored. . aa5 18:00 Reassessment: Patient is alert, oriented x 3, equal unlabored respirations, skin aa5 warm/dry/pink. Pt sitting up in bed eating dinner, pt tolerating well. . 19:30 General: Appears in no apparent distress. Behavior is calm, cooperative. Pain: Denies wh pain. Neuro: Level of Consciousness is awake, alert, obeys commands, Oriented to person, place, time, situation. Cardiovascular: Capillary refill < 3 seconds. Respiratory: Airway is patent Respiratory effort is even, unlabored, Respiratory pattern is regular, symmetrical. GI: Abdomen is flat, non-distended. : No signs and/or symptoms were reported regarding the genitourinary system. EENT: No signs and/or symptoms were reported regarding the EENT system. Derm: Skin is intact, is healthy with good turgor, Skin is pink, warm \\T\\ dry. normal. Musculoskeletal: Circulation, motion, and sensation intact. 21:00 Reassessment: Patient appears in no apparent distress at this time. No changes from previously documented assessment. Patient and/or family updated on plan of care and expected duration. Pain level reassessed. Patient is alert, oriented x 3, equal unlabored respirations, skin warm/dry/pink. 22:30 Reassessment: Patient appears in no apparent distress at this time. Patient and/or family updated on plan of care and expected duration. Pain level reassessed. Patient is alert, oriented x 3, equal unlabored respirations, skin warm/dry/pink. 01/27 00:00 Reassessment: Pt sleeping well no signs of distress noted. 01:30 Reassessment: Pt sleeping well no signs of distress noted. 03:00 Reassessment: Pt sleeping well no signs of distress noted. 03:15 Reassessment: [facility] contacted, spoke with Vidya Park, requesting a COVID sg swab test performed and resulted prior to accepting patient for psych treatment. notifed, a covid swab has been ordered, and sent to lab per hospital protocol, awaiting results at this time. 04:30 Reassessment: Pt sleeping well no signs of distress noted. 05:00 Reassessment: Clinical data faxed to [facility], awaiting a call back at this time. sg 07:03 Reassessment: Patient appears in no apparent distress at this time. Pt. is resting with rb1 eyes closed. Respirations even, unlabored. Sitter at the bedside. 08:00 Reassessment: Patient appears in no apparent distress at this time. Neuro: Level of rb1 Consciousness is awake, alert, obeys commands, Oriented to person, place, time, situation. Respiratory: Airway is patent Respiratory effort is even, unlabored, Respiratory pattern is regular, symmetrical. Derm: Skin is pink, warm \\T\\ dry. 09:00 Reassessment: Patient appears in no apparent distress at this time. No changes from rb1 previously documented assessment. 09:36 Reassessment: Called [facility], unable to give report now due to the nurse passing rb1 medications and being in a pt room. 10:00 Reassessment: Patient appears in no apparent distress at this time. Patient and/or rb1 family updated on plan of care and expected duration. Pain level reassessed. Patient is alert, oriented x 3, equal unlabored respirations, skin warm/dry/pink. Pt. is watching TV. 10:29 Reassessment: Gave report to ALTON Stephens at [facility]. Information from the [facility] was rb1 given. All questions asked and answered. 11:19 Reassessment: Patient appears in no apparent distress at this time. Patient denies pain rb1 at this time. 11:48 Reassessment: Patient appears in no apparent distress at this time. Patient is alert, rb1 oriented x 3, equal unlabored respirations, skin warm/dry/pink. Gave report to [facility]. All questions asked and answered. Psych: 01/25 00:00 Subjective: Patient's mood is sad, hopeless, Delusions are denied, Hallucinations are jb4 denied Having thoughts of suicide. Plan for suicide is Drink hand bell spinner. Objective: Patient is cooperative, Speech is normal, Affect is blunted. Interventions: Removed personal items and placed in bag. Patient placed in hospital gown. Searched person for dangerous items. Urine collected and sent for urine drug test. Belonging list filled out. Suicide Risk Assessment: Sad Person Scale: Sex of patient: Male: Score 1 point. Age of patient: Score 0 point if patient falls outside of specified age parameters. Depression: Score 1 point if signs of depression are present. Previous Attempt: Score 1 point if patient has previously attempted suicide. Substance Abuse: Score 1 point if patient abuses alcohol or drugs. Rational Thinking: Score 1 point if patient is lacking rational thinking. Social Support: Score 0 if social support is present/available. Organized Plan: Score 1 point if patient had a plan in place. Relationship: Score 1 point if patient is , , , or for a single male Chronic Sickness: Score 1 point if patient has illness, chronic, debilitating, or severe. TOTAL POINTS: If total points are 7-10, the proposed clinical action is to hospitalize or commit. Implement suicide precautions. Safety Checks: Personal items have been removed. Door is open. No visitors are present at this time. Patient uses Alcohol. 01/26 07:23 Commitment: Patient will be a voluntary commitment. aa5 Vital Signs: 01/24 22:23 BP 159 / 107; Pulse 104; Resp 16; Temp 98.0; Pulse Ox 100% on R/A; Weight 83.91 kg; ls4 Height 5 ft. 7 in. (170.18 cm) (R); Pain 0/10; 01/25 06:45 BP 133 / 95; Pulse 77; Resp 18; Temp 98.2(O); Pulse Ox 97% on R/A; oe 10:15 BP 134 / 89; Pulse 104; Resp 22; Pulse Ox 98% on R/A; Pain 4/10; hb 14:00 BP 132 / 86; Pulse 89; Resp 16; Pulse Ox 99% on R/A; hb 18:00 BP 132 / 80; Pulse 83; Resp 16; Pulse Ox 99% on R/A; hb 01/26 06:00 BP 166 / 98; Pulse 66; Resp 18; Temp 98; Pulse Ox 99% ; wh 10:00 BP 151 / 102; Pulse 80; Resp 20 S; Temp 97.8(O); Pulse Ox 99% on R/A; aa5 14:00 BP 143 / 94; Pulse 70; Resp 16 S; Temp 98.1(O); Pulse Ox 97% on R/A; aa5 18:00 BP 154 / 96; Pulse 67; Resp 18 S; Temp 98.2(O); Pulse Ox 97% on R/A; aa5 22:15 BP 159 / 103; Pulse 63; dh4 01/27 04:55 BP 153 / 102; Pulse 62; Resp 17; Temp 98(O); Pulse Ox 98% on R/A; ar5 05:17 BP 142 / 80; Pulse 66; Resp 17; Pulse Ox 98% on R/A; sg 09:15 BP 153 / 101; Pulse 72; Resp 16; Temp 97.7; Pulse Ox 99% ; rb1 11:48 BP 143 / 100; Pulse 63; Resp 16; Temp 98.2; Pulse Ox 100% ; rb1 01/24 22:23 Body Mass Index 28.97 (83.91 kg, 170.18 cm) ls4 ED Course: 01/24 22:23 Patient arrived in ED. cl3 22:30 Maintain EMS IV. Dressing intact. Good blood return noted. Site clean \\T\\ dry. Gauge \\T\\ bisi 3 site: 20-gauge LAC. Patient maintains SpO2 saturation greater than 95% on room air. 22:30 Initial lab(s) drawn, by me, sent to lab. EKG done, by ED staff, reviewed by Kimberlyn HERNANDEZ. 22:30 Safety checks: Items removed: yes. Door open/sign placed on door: yes. Family/friend sergey present: no. Sitter present: Yes. Placed in gown. Bed in low position. Call light in reach. Warm blanket given. Verbal reassurance given. Sitter at bedside. 22:35 Kimber[facility] Andrade [facility]-C [facility]. snw 22:35 Luis Carr MD is Attending Physician. snw 23:07 Klesey De Los Santos, RN is Primary Nurse. ls4 23:25 Urine collected: clean catch specimen, clear, renato colored. jp3 23:38 Triage completed. ls4 01/25 07:26 Attending Physician role handed off by Luis Carr MD kdr 07:26 Paresh Soni MD is Attending Physician. kdr 08:04 [facility] called, spoke with Leelee to initiate contact with their screener. em1 08:44 Pt currently speaking with [facility] screener, [place]. em1 09:34 Clinical information and [facility] recommendation faxed to [facility]. 09:57 Pillow given. Verbal reassurance given. hb 10:23 production clerk spoke with Bernie from [facility] Patient Intake and was em1 informed that Pt. is on the wait list for [facility] services. 12:00 Diet tray ordered. jp3 12:30 Diet tray given. jp3 13:07 Arm band placed on. hb 15:24 Iwona Granados, ALTON is Primary Nurse. hb 01/26 07:00 Report received from ALTON Pfeiffer. aa5 19:00 Report given to ALTON Pfeiffer. aa 01/27 03:30 Spoke with Vidya Park to see if [facility] had psych bed availability. Vidya nhMandeep stated we needed to swab for COVID 19 and once the test comes back to fax clinicals, labs, exclusionary, and H\\T\\P. 05:28 Faxed pt. clinicals, labs, exclusionary, H\\T\\P and COVID 19 results. Waiting for [address] center to call for 08:25 Attending Physician role handed off by Paresh Soni MD [facility] 08:25 Jeevan Shaw MD is Attending Physician. [facility] 08:[address] Patel the psychiatrist farm service consultant for [facility] with Dr. Shaw for patient transfer consultation. 09:19 administrative approval given by Andriy Jewell patient has been accepted to [facility] bed 715B/ Dr. Fontanez has accepted the patient in transfer/ report o be called to [phone]. 11:50 No provider procedures requiring assistance completed. IV discontinued, intact, rb1 bleeding controlled, No redness/swelling at site. Pressure dressing applied. Administered Medications: 01/24 23:10 Drug: NS 0.9% 1000 ml Route: IV; Rate: 1 bolus; Site: left antecubital; ls4 01/25 00:10 Follow up: Response: No adverse reaction; IV Status: Completed infusion; IV Intake: jb4 1000ml 00:45 Drug: NS 0.9% 1000 ml Route: IV; Rate: 1 bolus; Site: left antecubital; jb4 01:45 Follow up: Response: No adverse reaction; IV Status: Completed infusion jb4 00:45 Drug: Phenergan 12.5 mg Route: IVP; Site: left antecubital; jb4 01:15 Follow up: Response: No adverse reaction; Nausea is decreased jb4 07:37 Drug: KLONopin 1 mg Route: PO; iw 08:35 Follow up: Response: No adverse reaction hb 09:32 Drug: Zofran (Ondansetron) 4 mg Route: IVP; Site: left antecubital; hb 10:23 Follow up: Response: No adverse reaction hb 10:28 Drug: Valium 5 mg Route: PO; hb 21:16 Follow up: Response: No adverse reaction; RASS: Alert and Calm (0) wh 21:38 Drug: Melatonin 10 mg Route: PO; 01/26 01:11 Follow up: Response: No adverse reaction wh 10:31 Drug: KLONopin 1 mg Route: PO; aa5 14:11 Follow up: Response: No adverse reaction aa5 10:31 Drug: Metoprolol 50 mg Route: PO; aa5 14:11 Follow up: Response: No adverse reaction aa5 10:40 Drug: Effexor XR 75 mg Route: PO; aa5 14:11 Follow up: Response: No adverse reaction aa5 10:40 Drug: Effexor XR 150 mg Route: PO; aa5 14:11 Follow up: Response: No adverse reaction aa5 22:28 Drug: KLONopin 1 mg Route: PO; 22:28 Drug: Metoprolol 50 mg Route: PO; 01/27 09:30 Drug: Metoprolol 50 mg Route: PO; rb1 10:15 Follow up: Response: No adverse reaction rb1 09:30 Drug: KLONopin 1 mg Route: PO; rb1 10:15 Follow up: Response: No adverse reaction rb1 10:15 Drug: Effexor XR 75 mg Route: PO; rb1 10:15 Drug: Effexor XR 150 mg Route: PO; rb1 Intake: 01/25 00:10 IV: 1000ml; Total: 1000ml. jb4 Output: 19:47 Urine: 900ml (Voided); Total: 900ml. fu Outcome: 01/27 08:44 ER care complete, transfer ordered by . nehemias 11:50 Transferred by ground EMS to [facility], Transfer form completed. rb1 11:50 Condition: stable 11:50 Instructed on the need for transfer. 11:51 Patient left the ED. rb1 Signatures: Hernesto Ayala RN RN sg Anderson, Corey, MD MD cha Rittger, Kevin, MD MD kdr Waters, Shelly, SUPERVISOR SHIPPING ROOM-C SUPERVISOR SHIPPING ROOM-Abelardow Snow Rincon RN RN iw Martinez, Eric em1 Ynes Red, RN RN aa5 Cinda Tijerina RN RN [facility] Iwona Granados RN RN hb Bryson, James, RN RN 4 Aidan Lim Winsy wh Umadhay, Felix, RN RN Michelle Flores Jacob 3 Kelsey De Los Santos RN RN ls4 Trinidad Tom ar5 Sharyn Wilson 3 Teto Stevens formerly [facility] Corrections: (The following items were deleted from the chart) 01/25 09:32 08:44 Pt currently speaking with [facility] screener [id number] em1 01/26 10:25 09 23:42 Home Meds: hydroxyzine HCl 50 mg Oral tab 1 tab 4 times per day for aa5 Anxiety; ls4 01/26 22:27 22:15 BP 159 / 103; 4 formerly [facility] 01/27 05:28 05:28 Faxed pt. clinicals, labs, exclusionary, and COVID 19 results. Waiting for [facility] transfer center to call for -Dr. morrow 08:46 08:30 connected the psychiatrist farm service consultant for Religious with Dr. Shaw for patient eb transfer consultation. eb
[2020-01-28] MEDS ORDERED: METOPROLOL TAR 50 MG TAB ONE (09:38)
[2020-01-28] MEDS ORDERED: clonazePAM 0.5 MG TAB ONE (09:39)
[2020-01-28] MEDS ORDERED: VENLAFAXINE HCL XR 75 MG CAP PO ONE ×2 (10:00)
[2020-01-28 12:13] VITALS: BP 143/100; TEMP 98.2; O2SAT 100
== END 2020-01-28 11:51 | disposition short-term general hospital (02) ==
LOC: ER 22:23
DX: F33.9 Major depressive disorder, recurrent, unspecified (principal); F10.10 Alcohol abuse, uncomplicated; I10 Essential (primary) hypertension
CPT/HCPCS: 36415; 80048; 80076; 80307; 80320; 80329; 81003; 85025; 85610; 85730; 93005; 96361; 96374; 96375; 99285; J7030; U0003

== ENCOUNTER 2020-02-09 08:43 | Inpatient (IN) | payer SELFPAY ==
[2020-02-09] MEDS ORDERED: LORazepam 2 MG/ML VIAL ONE ×4 (09:16→20:24)
[2020-02-09] MEDS ORDERED: NA CHLORIDE 0.9% 1,000 ML ONE ×2 (09:17→22:06)
[2020-02-09] MEDS ORDERED: FAMOTIDINE 20 MG/2 ML VIAL IV ONE (09:17)
[2020-02-09 09:53] LABS: Absolute Lymphocytes (CBC) 1.5 K/uL (0.7-4.9); Basophils % 3.6 % (0-1.3); Hematocrit 47.2 % (39.6-49.0); Lymphocytes % 25.7 % (15.3-44.8); RBC Red Blood Cell Count 5.35 M/uL (4.33-5.43)
[2020-02-09 09:56] LABS: Protime INR 1.13
[2020-02-09 10:15] LABS: ALT/SGPT 48 U/L (12-78); AST/SGOT 32 U/L (15-37); Albumin 3.6 g/dL (3.4-5.0); Alkaline Phosphatase 76 U/L (45-117); BUN Blood Urea Nitrogen 17 mg/dL (7-18); Bicarbonate 23 mmol/L (21-32); Bilirubin Direct 0.2 mg/dL (0-0.2); Bilirubin Total 0.4 mg/dL (0.2-1.0); Glucose Level 126 mg/dL (74-106); Potassium 3.3 mmol/L (3.5-5.1); Protein, Total 8.2 g/dL (6.4-8.2); Sodium Level 137 mmol/L (136-145); Troponin (Emerg Dept Use Only) < 0.02 ng/mL (0.0-0.045)
[2020-02-09 10:25] LABS: Barbiturates NEGATIVE (NEGATIVE); Benzodiazepines NEGATIVE (NEGATIVE); Cocaine NEGATIVE (NEGATIVE); METHAMPHETAM NEGATIVE (NEGATIVE); Methadone NEGATIVE (NEGATIVE); Opiates NEGATIVE (NEGATIVE); Phencyclidine NEGATIVE (NEGATIVE); THC Cannibis NEGATIVE (NEGATIVE)
[2020-02-09 10:41] LABS: Blood Morphology Comment NOT SEEN (NOT SEEN); Platelet Estimate ADEQ
--- NOTE | 2020-02-09 10:52 | EDPHYS ---
Physician Documentation [facility] Name: Srini Simpson Age: 34 yrs Sex: Male : 1985 Arrival Date: 02/09/2020 Time: 08:49 Bed 8 Private MD: ED Physician Paresh Soni HPI: 02/08 09:00 This 34 yrs old Male presents to ER via EMS with complaints of Suicidal kdr Ideation, ETOH Abuse, Vomiting. 09:00 The patient presents to the emergency department with anxiety, over a relationship, has kdr had a recent break-up, depression, over a relationship, has had a recent break-up. Onset: The symptoms/episode began/occurred yesterday. Severity of symptoms: At their worst the symptoms were moderate severe just prior to arrival, in the emergency department the symptoms are unchanged. Severity of symptoms: At their worst the symptoms were. The patient has experienced similar episodes in the past, multiple times. The patient has not recently seen a physician. 09:00 The patient has been seen here recently for similar problems with his girlfriend that kdr results in him becoming emotionally unstable and then he starts drinking. He is presently c/o chest pain and anxiety. Historical: - Allergies: 09:03 No Known Allergies; iw - PMHx: 08:57 Anxiety; Depression; Hypertension; Pyloric Stenosis; iw - Immunization history:: Adult Immunizations up to date. - Social history:: Smoking status: Patient denies any tobacco usage or history of. ROS: 09:00 Constitutional: Negative for fever, chills, and weight loss, Eyes: Negative for injury, kdr pain, redness, and discharge, ENT: Negative for injury, pain, and discharge, Neck: Negative for injury, pain, and swelling, Back: Negative for injury and pain, : Negative for injury, bleeding, discharge, and swelling, MS/Extremity: Negative for injury and deformity, Skin: Negative for injury, rash, and discoloration, Neuro: Negative for headache, weakness, numbness, tingling, and seizure activity. Allergy/Immunology: Negative for hives, rash, and allergies, Endocrine: Negative for neck swelling, polydipsia, polyuria, polyphagia, and marked weight changes, Hematologic/Lymphatic: Negative for swollen nodes, abnormal bleeding, and unusual bruising. 09:00 Cardiovascular: Positive for chest pain, Negative for edema, orthopnea, palpitations. 09:00 Respiratory: Positive for shortness of breath, Negative for cough, dyspnea on exertion, hemoptysis, orthopnea, pleurisy. 09:00 Abdomen/GI: Positive for abdominal pain, nausea. Exam: 09:00 Constitutional: This is a well developed, well nourished patient who is awake, alert, kdr and in moderate distress. Head/Face: Normocephalic, atraumatic. Eyes: Pupils equal round and reactive to light, extra-ocular motions intact. Lids and lashes normal. Conjunctiva and sclera are non-icteric and not injected. Cornea within normal limits. Periorbital areas with no swelling, redness, or edema. Neck: Trachea midline, no thyromegaly or masses palpated, and no cervical lymphadenopathy. Supple, full range of motion without nuchal rigidity, or vertebral point tenderness. No Meningismus. Chest/axilla: Normal chest wall appearance and motion. Nontender with no deformity. No lesions are appreciated. Respiratory: Lungs have equal breath sounds bilaterally, clear to auscultation and percussion. No rales, rhonchi or wheezes noted. No increased work of breathing, no retractions or nasal flaring. Abdomen/GI: Soft, non-tender, with normal bowel sounds. No distension or tympany. No guarding or rebound. No evidence of tenderness throughout. Back: No spinal tenderness. No costovertebral tenderness. Full range of motion. Skin: Warm, dry with normal turgor. Normal color with no rashes, no lesions, and no evidence of cellulitis. MS/ Extremity: Pulses equal, no cyanosis. Neurovascular intact. Full, normal range of motion. Neuro: Awake and alert, GCS 15, oriented to person, place, time, and situation. Cranial nerves II-XII grossly intact. Motor strength 5/5 in all extremities. Sensory grossly intact. Cerebellar exam normal. Normal gait. 09:00 Psych: Behavior/mood is anxious, depressed, delirious, Affect is animated, Oriented to person, place, time, Patient has no thoughts/intents to harm self or others. Judgement / Insight is impaired. Delusions/hallucinations are not present. 12:46 ECG was reviewed by the Attending Physician. kdr Vital Signs: 08:51 BP 177 / 116; Pulse 133; Resp 18 S; Pulse Ox 100% on R/A; iw 09:51 BP 153 / 108; Pulse 124; Resp 20; Pulse Ox 100% ; ss 10:00 Temp 98.2(TE); ss MDM: 10:51 Patient medically screened. kdr 10:51 Data reviewed: vital signs, nurses notes, lab test result(s), EKG, radiologic studies. kdr 02/08 08:59 Order name: Acetaminophen kdr 02/08 08:59 Order name: Basic Metabolic Panel; Complete Time: 10:36 kdr 02/08 08:59 Order name: CBC with Diff; Complete Time: 10:48 kdr 02/08 08:59 Order name: ETOH Level; Complete Time: 10:36 kdr 02/08 08:59 Order name: Hepatic Function; Complete Time: 10:36 kdr 02/08 08:59 Order name: PT-INR; Complete Time: 10:36 kdr 02/08 08:59 Order name: Ptt, Activated; Complete Time: 10:36 kdr 02/08 08:59 Order name: Salicylate; Complete Time: 10:36 kdr 02/08 08:59 Order name: Urine Drug Screen; Complete Time: 10:36 kdr 02/08 08:59 Order name: Troponin (emerg Dept Use Only); Complete Time: 10:36 kdr 02/08 09:00 Order name: Acetaminophen Level; Complete Time: 10:36 EDMS 02/08 10:08 Order name: Urine Dipstick--Ancillary (enter results) mt 02/08 10:41 Order name: Manual Differential; Complete Time: 10:48 EDMS 02/08 08:59 Order name: EKG; Complete Time: 09:00 kdr 02/08 08:59 Order name: EKG - Nurse/Tech; Complete Time: 09:58 kdr 02/08 08:59 Order name: IV Saline Lock; Complete Time: 09:58 kdr 02/08 08:59 Order name: Labs collected and sent; Complete Time: 09:59 kdr 02/08 08:59 Order name: Urine Dipstick-Ancillary (obtain specimen); Complete Time: 10:23 kdr EC:46 Rate is 126 beats/min. Rhythm is regular, Sinus tachycardia. QRS [place] is Normal. [place] kdr interval is normal. QRS interval is normal. QT interval is normal. No Q waves. Clinical impression: NSR w/ Non-specific ST/T Changes and Sinus tachycardia. Administered Medications: 09:40 Drug: NS 0.9% 1000 ml Route: IV; Rate: 1 bolus; Site: left upper arm; ss 09:40 Drug: Ativan 1 mg Route: IVP; Site: left upper arm; ss 10:33 Follow up: Response: No adverse reaction; Anxiety unchanged ss 09:42 Drug: Pepcid 20 mg Route: IVP; Site: left upper arm; ss 10:33 Follow up: Response: No change in condition ss 10:34 Drug: Ativan 1 mg Route: IVP; Site: left upper arm; ss 10:45 Follow up: Response: No adverse reaction; Anxiety decreased ss Disposition: 02/09/20 10:51 Hospitalization ordered by Juan Wright for Observation. Preliminary diagnosis are Alcohol abuse, Alcohol abuse with intoxication, Nausea and vomiting. - Bed requested for Intensive Care Unit. - Status is Observation. ss - Condition is Fair. - Problem is an acute exacerbation. - Symptoms are unchanged. Signatures: Dispatcher [employer] EDMS Paresh Soni MD MD [facility] Snow Rincon RN RN Justyna Ortega RN RN ss Thompson, Moriah mi Robert De Leon RN RN kolby Corrections: (The following items were deleted from the chart) 11:00 10:51 Hospitalization Ordered by Juan Wright DO for Observation. Preliminary mt diagnosis is Alcohol abuse; Alcohol abuse with intoxication; Nausea and vomiting. Bed requested for Telemetry/MedSurg (observation). Status is Observation. Condition is Fair. Problem is an acute exacerbation. Symptoms are unchanged. kdr 11: 11:00 02/09/2020 10:51 Hospitalization Ordered by Juan Wright DO for Observation. ja1 Preliminary diagnosis is Alcohol abuse; Alcohol abuse with intoxication; Nausea and vomiting. Bed requested for Telemetry/MedSurg (observation). Status is Observation. Condition is Fair. Problem is an acute exacerbation. Symptoms are unchanged. mt 12: 11:08 02/09/2020 10:51 Hospitalization Ordered by Juan Wright DO for Observation. ss Preliminary diagnosis is Alcohol abuse; Alcohol abuse with intoxication; Nausea and vomiting. Bed requested for Intensive Care Unit. Status is Observation. Condition is Fair. Problem is an acute exacerbation. Symptoms are unchanged. ja1
--- NOTE | 2020-02-09 10:52 | ER ---
Nurse's Notes [facility] Name: Srini Simpson Age: 34 yrs Sex: Male : 1985 Arrival Date: 02/09/2020 Time: 08:49 Bed 8 Private MD: Diagnosis: Alcohol abuse;Alcohol abuse with intoxication;Nausea and vomiting Presentation: 02/08 08:51 Chief complaint: Patient states: girlfriend broke up with him last night, started iw drinking liquor and red bull around 8 pm, had "lots of alcohol" and 12 red bulls, now is vomiting, has palpations, feeling anxious, pt denies suicidal ideation. Coronavirus screen: At this time, the client does not indicate any symptoms associated with coronavirus-19. Ebola Screen: Patient negative for fever greater than or equal to 101.5 degrees Fahrenheit, and additional compatible Ebola Virus Disease symptoms Patient denies exposure to infectious person. Patient denies travel to an Ebola-affected area in the 21 days before illness onset. No symptoms or risks identified at this time. Initial Sepsis Screen: Does the patient meet any 2 criteria? No. Patient's initial sepsis screen is negative. Does the patient have a suspected source of infection? No. Patient's initial sepsis screen is negative. Risk Assessment: Do you want to hurt yourself or someone else? Patient reports desire/thoughts of hurting themselves or someone else. Provider notified. Onset of symptoms was February 08, 2020. 08:51 Method Of Arrival: EMS: [facility] iw 08:51 Acuity: CHRISTINE 2 iw Historical: - Allergies: 09:03 No Known Allergies; iw - PMHx: 08:57 Anxiety; Depression; Hypertension; Pyloric Stenosis; iw - Immunization history:: Adult Immunizations up to date. - Social history:: Smoking status: Patient denies any tobacco usage or history of. Screenin:52 Abuse screen: Denies threats or abuse. Denies injuries from another. Nutritional ss screening: No deficits noted. Tuberculosis screening: Never had TB. Fall Risk No fall in past 12 months (0 pts). Secondary diagnosis (15 points) ETOH consumption . Assessment: 09:00 General: Appears distressed, uncomfortable, Behavior is cooperative, anxious. General: ss Smells of alcohol, Pt reports he drank heavily last night. Denies SI/HI. Pain: Denies pain. Neuro: Level of Consciousness is awake, alert, obeys commands, Oriented to person, place, time, situation, Speech is normal, Facial symmetry appears normal, Pupils are PERRLA. Neuro: Reports severe anxiety since yesterday after girlfriend broke up with him.. Cardiovascular: Capillary refill < 3 seconds is brisk in bilateral fingers. Respiratory: Airway is patent Respiratory effort is even, unlabored, Respiratory pattern is regular, symmetrical. GI: Abdomen is non-distended, Reports nausea, vomiting. : No signs and/or symptoms were reported regarding the genitourinary system. EENT: Nares are clear Oral mucosa is moist. Derm: Skin is intact, is healthy with good turgor, Skin is pink, warm \\T\\ dry. normal. Musculoskeletal: Circulation, motion, and sensation intact. Range of motion: intact in all extremities, Swelling absent. 09:55 Reassessment: warm blanket given for comfort. ss 10:00 Reassessment: Patient appears in no apparent distress at this time. Patient and/or ss family updated on plan of care and expected duration. Pain level reassessed. reports anxiety has decreased minimally. 11:00 Reassessment: Patient appears in no apparent distress at this time. No changes from previously documented assessment. Pt aware of admission. Respirations remain even and unlabored. Call light remains within reach. Vital Signs: 08:51 BP 177 / 116; Pulse 133; Resp 18 S; Pulse Ox 100% on R/A; iw 09:51 BP 153 / 108; Pulse 124; Resp 20; Pulse Ox 100% ; ss 10:00 Temp 98.2(TE); ss ED Course: 08:49 Patient arrived in ED. ss 08:49 Snow Rincon, RN is Primary Nurse. iw 08:50 Paresh Soni MD is Attending Physician. kdr 08:55 Triage completed. iw 09:02 Arm band placed on. iw 09:28 Sea Motley, ALTON is Primary Nurse. em 09:36 Inserted saline lock: 18 gauge in left upper arm, using aseptic technique. Blood ag2 collected. 20g 10cm midline to left upper arm. First attempt. 09:52 Patient has correct armband on for positive identification. ss 10:48 Justyna Ortega, ALTON is Primary Nurse. ss 10:50 Juan Wright DO is Hospitalizing Provider. kdr 12:08 No provider procedures requiring assistance completed. Patient admitted, IV remains in ss place. Administered Medications: 09:40 Drug: NS 0.9% 1000 ml Route: IV; Rate: 1 bolus; Site: left upper arm; ss 09:40 Drug: Ativan 1 mg Route: IVP; Site: left upper arm; ss 10:33 Follow up: Response: No adverse reaction; Anxiety unchanged ss 09:42 Drug: Pepcid 20 mg Route: IVP; Site: left upper arm; ss 10:33 Follow up: Response: No change in condition ss 10:34 Drug: Ativan 1 mg Route: IVP; Site: left upper arm; ss 10:45 Follow up: Response: No adverse reaction; Anxiety decreased ss Outcome: 10:51 Decision to Hospitalize by Provider. kdr 12:08 Admitted to ICU accompanied by melvin, with chart, Report called to ALTON Jain ss 12:08 Condition: stable 12:08 Instructed on the need for admit. 12:09 Patient left the ED. Signatures: Paresh Soni MD MD [facility] Sea Motley, ALTON RN em Snow Rincon RN RN Justyna Ortega RN RN Jahaira Lopez ag2 Corrections: (The following items were deleted from the chart) 09:01 08:51 Chief complaint: Patient states: girlfriend broke up with him last night, started iw drinking liquor and red bull around 8 pm, had "lots of alcohol" and 12 red bulls, now is vomiting, has palpations, feeling anxious, reports suicidal ideation iw 09:59 09:58 NS 0.9% 1000 ml IV at 1 bolus in left upper arm ss ss
[2020-02-09 10:56] LABS: Urine Blood NEGATIVE (NEG); Urine Glucose NEGATIVE (NEG); Urine Protein 1+ (NEG); Urine Specific Gravity 1.025 (1.005-1.030); Urine pH 6.5 (5.0-7.0)
[2020-02-09] MEDS ORDERED: LORazepam 2 MG/ML VIAL IV PRN ×2 (11:13→11:15)
[2020-02-09] MEDS: chlordiazePOXIDE HCl 25 MG CAP PO SCH ×3 (11:13→17:11)
--- NOTE | 2020-02-09 11:37 | P.HP ---
Certification for Inpatient Patient admitted to: Inpatient With expected LOS: >2 Midnights Patient will require the following post-hospital care: Other ([facility]) Practitioner: I am a practitioner with admitting privileges, knowledge of patient current condition, hospital course, and medical plan of care. Services: Services provided to patient in accordance with Admission requirements found in Title 42 Section 412.3 of the Code of Federal Regulations Patient History Date of Service: 02/09/20 Primary Care Provider: none, [facility] Reason for admission: Increase anxiety, nausea and vomiting History of Present Illness: 34-year-old male with history of hypertension, anxiety, tobacco and alcohol abuse. Patient presented to the ER with increase anxiety, nausea and vomiting. Patient admits drinking liquor-René Mai excessively over the past couple of weeks. He reports that he drinks until he passes out. Patient has been under lot of stress with his ex girlfriend. Patient is not suicidal. There is no evidence of suicidal ideation or attempt. Patient has noted some alcohol withdrawal. Patient reports having alcohol withdrawal past. Patient dealing with other stress as well. He reports that he last drank yesterday around 8:00 p.m. Patient is wanting to get help for his alcohol abuse. Patient came to the ER for further evaluation. In the ER patient was evaluated. White count 5.9, hemoglobin 15. Platelet count 354. Alcohol level was elevated at 364. Urine drug screen negative. Troponin unremarkable. Sodium 137 come potassium 3.3. BN of 17, creatinine 0.9 with a GFR greater than 90. Glucose 126. Blood pressures were elevated. Patient given medication for agitation. Patient admitted for further evaluation and treatment. When I saw the patient ER, patient had mild tremors. Blood pressure was elevated. Patient admits to significant alcohol use. He denies any illegal drug use. Patient has been dealing with a great deal of stress. He was calling [facility] to obtain information about alcohol rehab when I entered the room. Allergies No Known Drug Allergies Allergy (Verified 12/24/19 23:49) Unknown Home medications list reviewed: Yes Home Medications: Metoprolol Tartrate [Lopressor] 50 mg PO BID 12/25/19 Venlafaxine HCl [Venlafaxine HCl ER] 75 mg PO DAILY 12/25/19 clonazePAM [Clonazepam] 1 mg PO BID PRN 12/25/19 - Past Medical/Surgical History Diabetic: No -: Alcohol abuse -: Hypertension -: Anxiety/depression -: Unknown Psychosocial/ Personal History: Lives at home with girlfriend - Family History Father -: Heart disease Mother -: Stroke - Social History Smoking Status: Heavy Tobacco smoker (>10 cigarettes/day) Counseled patient to stop smoking for: less than 10 minutes Smoking therapy provided: Yes Patient receptive to therapy: Yes Alcohol use: Yes CD- Drugs: Yes Caffeine use: Yes Place of Residence: Home Review of Systems General: As per HPI Eyes: Unremarkable ENT: Unremarkable Respiratory: Unremarkable Cardiovascular: Unremarkable Gastrointestinal: Nausea, As per HPI Genitourinary: Unremarkable Musculoskeletal: As per HPI Integumentary: As per HPI Neurological: As per HPI Lymphatics: Unremarkable Physical Examination - Physical Exam General: Alert, In no apparent distress, Oriented x3, Cooperative, Mild distress, Other (Patient was cooperative. Blood pressure elevated. Patient with increase anxiety. Some tremors noted to the upper extremity.) HEENT: Atraumatic, Normocephalic, Other (Dry mucous membranes) Neck: Supple Respiratory: Clear to auscultation bilaterally, Normal air movement Cardiovascular: Abnormal pulses (Sinus tachycardia) Gastrointestinal: Normal bowel sounds, Soft and benign, Non-distended, No tenderness, No masses, No rebound, No guarding Musculoskeletal: No erythema, No tenderness, No warmth Integumentary: No tenderness/swelling, No erythema, No warmth, No cyanosis, Other (Dry skin turgor noted.) Neurological: Normal speech, Normal strength at 5/5 x4 extr, Normal tone, Other (Some tremors upper extremity related to agitation) - Studies Laboratory Data (last 24 hrs) 02/09/20 09:03: PT 13.3 H, INR 1.13, APTT 27.4 02/09/20 09:03: WBC 5.9, Hgb 15.8, Hct 47.2, Plt Count 354 02/09/20 09:03: Sodium 137, Potassium 3.3 L, BUN 17, Creatinine 0.95, Glucose 126 H, Total Bilirubin 0.4, AST 32, ALT 48, Alkaline Phosphatase 76 Assessment and Plan - Plan Impression: Nausea, dehydration secondary to alcohol intoxication with alcohol withdrawal symptoms Alcohol abuse Hypertension urgency, uncontrolled Depression with anxiety with underlying acute stress Tobacco abuse Plan: Nausea, dehydration secondary to alcohol intoxication with alcohol withdrawal symptoms: Patient will be admitted to ICU for close monitoring and treatment. Will start aggressive IV fluid hydration. Will also provide IV banana bag. Will monitor the patient closely for DTs. Will start Librium 25 mg 4 times a day. Will also provide Ativan IV for mild, moderate and severe agitation. Will provide IV medication for blood pressure. Will see if the patient can restart his home medication of metoprolol. No suicidal ideation noted this time. Patient is seen by the [facility]. Will discuss with social sciences department chair about the possibility of [facility] to evaluate the patient once medically stable. Patient wanting Alcohol Rehab. Will try to obtain resource is for this. Anticipate improvement over the next 48-72 hr. Alcohol abuse: Continue as above. Continue IV fluids and banana bag. Will start Librium. Will provide IV Ativan. Hypertension urgency, uncontrolled: Restart metoprolol 50 mg 1 pill twice daily. Will provide IV medication if required. Depression with anxiety with underlying acute stress: Patient is not suicidal. Patient under a great deal of stress. Will have [facility] evaluate the patient once medically stable. Patient desires alcohol rehab. Tobacco abuse: Will provide nicotine patch. Discharge Plan: Home Plan to discharge in: 72 Hours - Advance Directives Does patient have a Living Will: No Does patient have a Durable POA for Healthcare: Yes - Code Status/Comfort Care Code Status Assessed: Yes (Patient is full code) Time Spent Managing Pts Care (In Minutes): 55
[2020-02-09] MEDS ORDERED: NA CHLORIDE 0.9% 1,000 ML IV SCH (12:00)
[2020-02-09] MEDS ORDERED: METOPROLOL TARTRATE 5 MG/5 ML INJ IV PRN (12:19)
[2020-02-09] MEDS ORDERED: ONDANSETRON 4 MG/2 ML VIAL IV PRN (12:19)
[2020-02-09] MEDS ORDERED: ACETAMINOPHEN 500 MG TAB PO PRN (12:19)
[2020-02-09] MEDS: METOPROLOL TAR 50 MG TAB PO SCH ×2 (12:29→21:59)
[2020-02-09] MEDS ORDERED: NACHLORIDE 0.45% 1,000 ML IV ONE ×2 (12:37→22:09)
[2020-02-09] MEDS ORDERED: METOPROLOL TAR 50 MG TAB ONE ×2 (12:37→22:06)
[2020-02-09] MEDS ORDERED: chlordiazePOXIDE HCl 25 MG CAP ONE ×2 (12:37→17:23)
[2020-02-09] MEDS ORDERED: NA CHLORIDE 0.9% 0 ML ONE (12:38)
[2020-02-09] MEDS ORDERED: POTASSIUM 25 MEQ EFFERV TAB PO ONE (12:42)
[2020-02-09] MEDS ORDERED: POTASSIUM 25 MEQ EFFERV TAB ONE (13:01)
[2020-02-09] MEDS: LORazepam 2 MG/ML VIAL IV PRN ×2 (13:22→18:38)
[2020-02-09] MEDS: NACHLORIDE 0.45% 1,000 ML IV SCH ×2 (13:39→21:59)
[2020-02-09 16:49] VITALS: BMI 30.8
[2020-02-09] MEDS ORDERED: ONDANSETRON 4 MG/2 ML VIAL ONE (16:49)
[2020-02-09 21:50] VITALS: O2SAT 97
[2020-02-10] MEDS: chlordiazePOXIDE HCl 25 MG CAP PO SCH ×2 (00:53→06:23)
[2020-02-10] MEDS ORDERED: chlordiazePOXIDE HCl 25 MG CAP ONE ×2 (01:05→06:33)
[2020-02-10] MEDS: LORazepam 2 MG/ML VIAL IV PRN (01:58)
[2020-02-10] MEDS ORDERED: LORazepam 2 MG/ML VIAL ONE (02:09)
[2020-02-10 04:56] VITALS: BP 165/99; TEMP 98.9
[2020-02-10] MEDS: NACHLORIDE 0.45% 1,000 ML IV SCH (05:02)
[2020-02-10 05:54] LABS: BUN Blood Urea Nitrogen 17 mg/dL (7-18); Bicarbonate 25 mmol/L (21-32); Glucose Level 104 mg/dL (74-106); Magnesium 1.7 mg/dL (1.8-2.4); Potassium 3.6 mmol/L (3.5-5.1); Sodium Level 139 mmol/L (136-145)
[2020-02-10] MEDS ORDERED: PANTOPRAZOLE 40MG TABLET PO SCH (06:30)
--- NOTE | 2020-02-10 08:13 | P.DS ---
Admission Date: 02/09/20 Discharge Date: 02/10/20 Primary Care Provider: pieter, [facility] Disposition: ROUTINE DISCHARGE Discharge Condition: GOOD Reason for Admission: Increase anxiety, nausea and vomiting Consultations: none Procedures: Impression: Nausea, dehydration secondary to alcohol intoxication with alcohol withdrawal symptoms Alcohol abuse Hypertension urgency, uncontrolled Depression with anxiety with underlying acute stress Tobacco abuse Brief History of Present Illness: 34-year-old male with history of hypertension, anxiety, tobacco and alcohol abuse. Patient presented to the ER with increase anxiety, nausea and vomiting. Patient admits drinking liquor-René Mai excessively over the past couple of weeks. He reports that he drinks until he passes out. Patient has been under lot of stress with his ex girlfriend. Patient is not suicidal. There is no evidence of suicidal ideation or attempt. Patient has noted some alcohol withdrawal. Patient reports having alcohol withdrawal past. Patient dealing with other stress as well. He reports that he last drank yesterday around 8:00 p.m. Patient is wanting to get help for his alcohol abuse. Patient came to the ER for further evaluation. In the ER patient was evaluated. White count 5.9, hemoglobin 15. Platelet count 354. Alcohol level was elevated at 364. Urine drug screen negative. Troponin unremarkable. Sodium 137 come potassium 3.3. BN of 17, creatinine 0.9 with a GFR greater than 90. Glucose 126. Blood pressures were elevated. Patient given medication for agitation. Patient admitted for further evaluation and treatment. When I saw the patient ER, patient had mild tremors. Blood pressure was elevated. Patient admits to significant alcohol use. He denies any illegal drug use. Patient has been dealing with a great deal of stress. He was calling [facility] to obtain information about alcohol rehab when I entered the room. Hospital Course: Patient presented with nausea and dehydration related to alcohol intoxication. Patient also had some alcohol withdrawal symptoms. The patient was evaluated in the emergency room. Patient with underlying history of hypertension and depression with anxiety. Patient had been under a great deal of stress. Vaishnavi ent is not suicidal. Patient desires help. Patient is seen at the [facility]. Patient was admitted for IV hydration and close monitoring. Patient did receive Librium and Ativan during the course of his stay. The patient has significantly improved. Patient has been in contact with [facility] to obtain information on receiving alcohol rehab. The patient plans to go to alcohol rehab after discharge. The patient has done well. Alcohol level now within normal range. Electrolytes stable at this time. Patient not significantly agitated at this time. At discharge patient will continue with Librium 25 mg twice daily for 2 days then 1 pill daily for 2 days. Recommend to hold medication if with increase sedation. Alcohol cessation addressed in detail. Patient plans to quit. Patient is in the process of going to an alcoholic rehabilitation center after discharge. This has been arranged with the help of [facility]. At discharge the patient will also continue with folic acid 1 mg daily and thiamine 100 mg daily. Patient with hypertension. Patient had elevated blood pressure. Patient on metoprolol. This was restarted. Adjustments were to be made but the patient did not want his medication to be adjusted. Therefore at discharge patient will continue with metoprolol 50 mg 1 pill twice daily. Recommend to maintain blood pressure less than 150/80. Further adjustment can be done by his PCP. Patient with depression with anxiety. As mentioned above patient with increased stress at home. Patient is not suicidal. As mentioned above patient will cont inue his care with [facility]. Patient plans to go to alcoholic rehab after discharge. At discharge patient will continue with Effexor 225 mg 1 pill daily along with clonazepam 1 mg twice daily as needed. Patient should not mix clonazepam with Librium especially with increase sedation.. Tobacco cessation addressed in detail prior to discharge. Vital Signs/Physical Exam: Temp Pulse Resp BP Pulse Ox 98.9 F 86 18 165/99 H 100 02/10/20 04:55 02/10/20 04:55 02/10/20 04:55 02/10/20 04:55 02/10/20 04:55 General: Alert, In no apparent distress, Oriented x3, Cooperative HEENT: Atraumatic, Mucous membr. moist/pink Neck: Supple Respiratory: Clear to auscultation bilaterally, Normal air movement Cardiovascular: Normal pulses, Regular rate/rhythm Gastrointestinal: Normal bowel sounds, Soft and benign, Non-distended, No tenderness, No masses, No rebound, No guarding Musculoskeletal: No erythema, No tenderness, No warmth Integumentary: No tenderness/swelling, No erythema, No warmth, No cyanosis Neurological: Normal speech, Normal strength at 5/5 x4 extr, Normal tone, Normal affect Laboratory Data at Discharge: WBC 5.9 K/uL (4.3-10.9) 02/09/20 09:03 Hgb 15.8 g/dL (13.6-17.9) 02/09/20 09:03 Hct 47.2 % (39.6-49.0) 02/09/20 09:03 Plt Count 354 K/uL (152-406) 02/09/20 09:03 PT 13.3 SECONDS (9.5-12.5) H 02/09/20 09:03 INR 1.13 02/09/20 09:03 APTT 27.4 SECONDS (24.3-36.9) 02/09/20 09:03 Sodium 139 mmol/L (136-145) 02/10/20 05:14 Potassium 3.6 mmol/L (3.5-5.1) 02/10/20 05:14 BUN 17 mg/dL (7-18) 02/10/20 05:14 Creatinine 0.76 mg/dL (0.55-1.3) 02/10/20 05:14 Glucose 104 mg/dL (74-106) 02/10/20 05:14 Magnesium 1.7 mg/dL (1.8-2.4) L 02/10/20 05:14 Total Bilirubin 0.4 mg/dL (0.2-1.0) 02/09/20 09:03 AST 32 U/L (15-37) 02/09/20 09:03 ALT 48 U/L (12-78) 02/09/20 09:03 Alkaline Phosphatase 76 U/L (45-117) 02/09/20 09:03 Home Medications: Metoprolol Tartrate [Lopressor*] 50 mg PO BID 12/25/19 Venlafaxine HCl [Venlafaxine HCl ER] 225 mg PO DAILY 12/25/19 clonazePAM [Clonazepam] 1 mg PO BID PRN 12/25/19 Folic Acid 1 mg PO DAILY #30 tablet 02/10/20 Thiamine HCl 100 mg PO DAILY #30 tablet 02/10/20 chlordiazePOXIDE HCl [Librium*] 25 mg PO SEECOM #6 cap 02/10/20 New Medications: Folic Acid 1 mg PO DAILY #30 tablet chlordiazePOXIDE HCl [Librium*] 25 mg PO SEECOM #6 cap Thiamine HCl 100 mg PO DAILY #30 tablet Patient Discharge Instructions: 1. Recommend follow up with PCP in 1 week to follow up this hospitalization. 2. Patient presented with nausea and dehydration related to alcohol intoxication. Patient also had some alcohol withdrawal symptoms. The patient was evaluated in the emergency room. Patient with underlying history of hypertension and depression with anxiety. Patient had been under a great deal of stress. Patient is not suicidal. Patient desires help. Patient is seen at the [facility]. Patient was admitted for IV hydration and close monitoring. Patient did receive Librium and Ativan during the course of his stay. The patient has significantly improved. Patient has been in contact with [facility] to obtain information on receiving alcohol rehab. The patient plans to go to alcohol rehab after discharge. The patient has done well. Alcohol level now within normal range. Electrolytes stable at this time. Patient not significantly agitated at this time. At discharge patient will continue with Librium 25 mg twice daily for 2 days then 1 pill daily for 2 days. Recommend to hold medication if with increase sedation. Alcohol cessation addressed in detail. Patient plans to quit. Patient is in the process of going to an alcoholic rehabilitation center after discharge. This has been arranged with the help of [facility]. At discharge the patient will also continue with folic acid 1 mg daily and thiamine 100 mg daily. 3. Patient with hypertension. Patient had elevated blood pressure. Patient on metoprolol. This was restarted. Adjustments were to be made but the patient did not want his medication to be adjusted. Therefore at discharge patient will continue with metoprolol 50 mg 1 pill twice daily. Recommend to maintain blood pressure less than 150/80. Further adjustment can be done by his PCP. 4. Patient with depression with anxiety. As mentioned above patient with increased stress at home. Patient is not suicidal. As mentioned above patient will continue his care with [facility]. Patient plans to go to alcoholic rehab after discharge. At discharge patient will continue with Effexor 225 mg 1 pill daily along with clonazepam 1 mg twice daily as needed. Patient should not mix clonazepam with Librium especially with increase sedation.. 5. Tobacco cessation education will be provided. Diet: ADA Activity: Ad tracy Time spent managing pt's care (in minutes): 55
[2020-02-10] MEDS ORDERED: FOLIC ACID 1 MG, MULTIVITAMINS INJ 10 ML, THIAMINE HCL 100 MG in NA CHLORIDE 0.9% 1,000 ML IV SCH (09:00)
[2020-02-10] MEDS ORDERED: ENOXAPARIN 40 MG/0.4 ML SQ SCH (09:00)
[2020-02-10] MEDS ORDERED: METOPROLOL TAR 50 MG TAB PO SCH (09:00)
[2020-02-10] MEDS ORDERED: NICOTINE 21 MG/PAT TD SCH (09:00)
--- NOTE | 2020-02-11 08:22 | EKG ---
Test Date: 2020-02-09 Test Time: 09:17:35 It Security Manager: HALLIE MEASUREMENT RESULTS: Intervals: Rate: 126 UT: 136 QRSD: 90 QT: 324 QTc: 469 [place]: P: 26 UT: 136 QRS: 18 T: -2 INTERPRETIVE STATEMENTS: Sinus tachycardia Low voltage QRS Borderline ECG Compared to ECG 01/26/2020 10:17:33 Low QRS voltage now present Sinus rhythm no longer present Electronically Signed On 02-11-20 08:19:37 CDT by Austin Martinez
== END 2020-02-10 08:35 | disposition home or self-care (01) | DRG 897 ==
LOC: ER 08:43 → ERHOLD 11:05
PROVIDERS: ADMIT Family Medicine; ATTEND Family Medicine
DX: F10.129 Alcohol abuse with intoxication, unspecified (principal); F10.139 Alcohol abuse with withdrawal, unspecified; I10 Essential (primary) hypertension; I16.0 Hypertensive urgency; F17.210 Nicotine dependence, cigarettes, uncomplicated; F41.8 Other specified anxiety disorders; E86.0 Dehydration; Y90.8 Blood alcohol level of 240 mg/100 ml or more; R25.1 Tremor, unspecified; Z73.3 Stress, not elsewhere classified; Z20.828 Contact with and (suspected) exposure to other viral communicable diseases
CPT/HCPCS: 36415; 80048; 80076; 80307; 80320; 80329; 81003; 83735; 84132; 84439; 84443; 84484; 85025; 85610; 85730; 87040; 93005; 96374; 96375; 99285; J2405; J3411; J7030; U0002

== ENCOUNTER 2020-02-10 15:56 | Emergency (ER) | payer SELFPAY ==
[2020-02-10 16:31] LABS: Absolute Lymphocytes (CBC) 1.8 K/uL (0.7-4.9); Basophils % 0.8 % (0-1.3); Hematocrit 46.7 % (39.6-49.0); Lymphocytes % 15.4 % (15.3-44.8); MPV 8.3 fL (7.6-11.3)
[2020-02-10 16:33] LABS: Protime INR 0.95
[2020-02-10 16:47] LABS: ALT/SGPT 50 U/L (12-78); AST/SGOT 57 U/L (15-37); Albumin 4.1 g/dL (3.4-5.0); Alkaline Phosphatase 107 U/L (45-117); BUN Blood Urea Nitrogen 15 mg/dL (7-18); Bicarbonate 23 mmol/L (21-32); Bilirubin Direct 0.2 mg/dL (0-0.2); Bilirubin Total 0.5 mg/dL (0.2-1.0); Glucose Level 91 mg/dL (74-106); Potassium 4.2 mmol/L (3.5-5.1); Protein, Total 9.1 g/dL (6.4-8.2); Sodium Level 142 mmol/L (136-145)
[2020-02-10] MEDS ORDERED: NA CHLORIDE 0.9% 0 ML ONE (16:47)
[2020-02-10 17:26] LABS: Barbiturates NEGATIVE (NEGATIVE); Benzodiazepines POSITIVE (NEGATIVE); Cocaine NEGATIVE (NEGATIVE); METHAMPHETAM NEGATIVE (NEGATIVE); Methadone NEGATIVE (NEGATIVE); Opiates NEGATIVE (NEGATIVE); Phencyclidine NEGATIVE (NEGATIVE); THC Cannibis NEGATIVE (NEGATIVE)
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
[2020-02-10 17:43] LABS: Urine Blood 2+ (NEG); Urine Glucose NEGATIVE (NEG); Urine Protein 2+ (NEG)
[2020-02-10 18:45] VITALS: BP 163/120; O2SAT 98
--- OUTSIDE RECORDS SUMMARY | 2020-02-15 21:02 | XMS REPORT | Clinical Summary ---
:1985 Author Organization [facility] Address [address] [place] [address] Care Team Providers Name Role Phone Vijay [...] Not on file Results Not on fileafter 02/14/2019 Advance Directives For more information, please contact:[address] [phone] Code Status Date Activated Date Inactivated Comments Full Code 03/16/2017 7:21 PM 03/17/2017 7:28 PM This code status was determined by: Patient
--- OUTSIDE RECORDS SUMMARY | 2020-02-15 21:03 | XMS REPORT | Continuity of Care Document ---
:1985 Author Organization [facility] t Address [address] [place] [address] Care Team Providers Name Role Phone Maame Luke Primary Care Physician Ernie Hassan Attending Clinician Unavailable Ernie Hassan Attending Clinician Unavailable Ashlie BELTRÁN M. Attending Clinician Lexy Thomas MD Attending Clinician Singer LAW Attending Clinician Fatimah BELTRÁN S Attending Clinician Margarita Marroquin Attending Clinician Doctor Unassigned, Name Attending Clinician Unavailable Clinic, Neurology Continuity Attending Clinician Unavailcydney Dos Santos SAMPLE ROOM SUPERVISOR Attending Clinician Kem Herrera Attending Clinician Jeremiah DAVENPORT Attending Clinician Joseph GARCIA Attending Clinician Unavailable Ernie Hassan Admitting Clinician Unavailable ASHLIE Admitting Clinician Unavailable Joseph GARCIA Admitting Clinician Unavailable Problems Condition Condition Condition Status Onset Resolution Last Treating Co mments Source Name Details Category Date Date Treatment Clinician Date Alcohol Alcohol Disease Active [place] dependence dependence 01-28 Me thodi with with 00:00: st uncomplica uncomplica 00 luis luis withdrawal withdrawal Suicide Suicide Disease Active [place] attempt by attempt by 01-28 Me thodi alcohol alcohol 00:00: st poisoning poisoning 00 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 Family History Family Member Diagnosis Comments Start Date Stop Date Source Natural father Heart attack [facility] Paternal grandfather [facility] Maternal aunt Depression [place] [facility] Maternal uncle Alcohol abuse [place] Yazidi Maternal uncle Depression [facility] thodist Maternal uncle Suicide Attempts [place] Natural mother Alcohol abuse [place] Yazidi Social History Social Habit Start Date Stop Date Quantity Comments Source History of tobacco 1995-01-27 Current every Ori ston Yazidi use 00:00:00 day smoker Alcohol Comment socially [facility] Sex Assigned At [facility] ethodist Cigarettes smoked 2020-01-28 2020-01-28 [place] Yazidi current (pack per 00:00:00 00:00:00 day) - Reported Cigarette 2020-01-28 2020-01-28 [place] Method ist pack-years 00:00:00 00:00:00 Tobacco use and 2020-01-28 2020-01-28 Never used [facility] ethodist exposure 00:00:00 00:00:00 Alcohol intake 2020-01-28 2020-01-28 Current drinker [place] Yazidi 00:00:00 00:00:00 of alcohol (finding) Smoking Status Start Date Stop Date Source Current every day smoker 2020-01-28 00:00:00 Ori Almeida Medications Ordered Filled Start Stop Current Ordering Indication Dosage Frequency Signature Comments Components Source Medication Medication Date Date Medication? Clinician (SIG) Name Name venlafaxine 2019- No major 225mg QD Take 3 [place] XR 02-01 depressive capsules Meth herminio (EFFEXOR-XR 00:00: 23:59 disorder ([address] ) 75 MG 24 00 :00 total) by hr capsule mouth every morning for 7 days .major depressive disorder. nicotine 2019- Yes smoking 2mg Q2H Chew 1 Ori benavidez polacrilex 01-31 cessation each (2 mg Methodi (NICORETTE) 00:00: 23:59 total) st 2 mg gum 00 :00 every 2 (two) hours as needed for smoking cessation for up to 30 days .stop smoking. metoprolol 2019- Yes hypertensio 50mg Q.5D Take 1 [place] tartrate 01-31 n tablet (50 Meth herminio (LOPRESSOR) 00:00: 23:59 mg total) st 50 mg 00 :00 by mouth tablet BID at 0700, 1900 for 30 days .high blood pressure. busPIRone 2019- No generalized 7.5mg Q.5D Take 1 [place] (BUSPAR) 01-31 anxiety tablet Metho di 7.5 MG 00:00: 23:59 disorder (7.[address] tablet 00 :00 total) by mouth 2 (two) times a day for 7 days .repeated episodes of anxiety. Immunizations Ordered Immunization Filled Immunization Date Status Commen ts Source Name Name FLUCELVAX QUAD PF 2020-01-28 Completed [place] 00:00:00 Yazidi Vital Signs Vital Name Observation Time Observation Value Comments Source Body weight 2020-02-01 07:04:00 85.548 kg Anthony Almeida BMI 2020-02-01 07:04:00 29.54 kg/m2 [place] Yazidi Systolic blood 2020-02-01 06:09:39 138 mm[Hg] [place] Yazidi pressure Diastolic blood 2020-02-01 06:09:39 78 mm[Hg] [place]la on Yazidi pressure Heart rate 2020-02-01 06:09:39 62 /min Anthony Almeida Body temperature 2020-02-01 06:09:39 36.5 Siobhan [place] Respiratory rate 2020-02-01 06:09:39 18 /min [place] Yazidi Oxygen saturation in 2020-02-01 06:09:39 98 /min Anthony Almeida Arterial blood by Pulse oximetry Body height 2020-01-28 14:00:00 170.2 cm Anthony Almeida Procedures Procedure Date / Time Performed Performing Clinician Sourc e HEMOGLOBIN A1C 2020-01-29 06:10:00 Lelo Pelaez [facility]odist LIPID PANEL 2020-01-29 06:10:00 Lelo Pelaez [facility]odist HEPATITIS ACUTE PANEL 2020-01-29 06:10:00 Lelo Pelaez Yazidi GGT 2020-01-29 06:10:00 Lelo Pelaez [facility] MAGNESIUM LEVEL 2020-01-29 06:10:00 Lelo Pelaez Me [facility]odist HIV AG/AB COMBINATION 2020-01-29 06:10:00 Lelo Pelaez Yazidi Encounters Start End Encounter Admission Attending Care Care Encounter Source Date/Time Date/Time Type Type Clinicians Facility Department ID 2019-12-28 Inpatient 3 Ted Hassan [facility] [id number] 22:04:00 Ted Hassan -[id number] [facility] 2020-01-28 2020-02-01 Inpatient [facility] [id number] [place] 00:00:00 00:00:00 ROSI [address] 2019-12-28 2020-01-02 Inpatient 3 Ted Hassan [facility] PSY [id number] St. 22:04:00 17:20:00 HassanTed mcneal [facility] 2019-11-09 2019-11-10 Emergency Martha [facility] [id number] 23:06:12 01:26:00 Clvois Huang [id number] [place] 4.2.7.2.686 [place] [id number] 2019-09-29 2019-09-29 Emergency Singer [facility] [id number] 09:39:50 11:47:00 Johan [place] [id number] [place] 4.2.7.2.686 [place] [id number] 2019-06-16 2019-06-16 Emergency Fatimah [facility] [id number] 07:08:27 08:57:00 Nadine Huang [id number] [place] 4.2.7.2.686 [place] [id number] 2019-06-15 2019-06-15 Emergency Shelley Shahid [facility] [id number] 11:30:00 13:30:00 Margarita [place] [id number] [place] 4.2.7.2.686 [place] [id number] 2019-06-15 2019-06-15 Orders Doctor MCGINNIS [id number] 00:00:00 00:00:00 Only Unassigned, KAY 350.1.13.10 [place] [facility] 4.2.7.2.686 [id number] 2019-06-06 2019-06-06 Letter Clinic, [facility] [id number] 00:00:00 00:00:00 (Out) Neurology HEALTH 350.1.13.10 Continuity CLINICS 4.2.7.2.686 [id number] 2019 2019 Urgent [facility] [id number] 10:16:26 10:55:54 Care [facility] [id number] Surgical 4.2.7.2.686 Special [id number] teddy Ridley Sal 2019 2019 Orders Doctor MCGINNIS [id number] 00:00:00 00:00:00 Only UnassignedKAY 350.1.13.10 [place] [facility] 4.2.7.2.686 [id number] 2019-01-24 2019-01-24 [facility] [id number] 15:49:15 22:27:00 Anitra Brownlee Sal 350.1.13.10 [place] 4.2.7.2.686 [place] [id number] 2019-01-24 2019-01-24 Orders Doctor RAS [id number] 00:00:00 00:00:00 Only Unassigned, KAY 350.1.13.10 [place] [address]686 [id number] [id number] 2018-12-21 2018-12-21 Emergency Sidney, [facility] [id number] 17:07:20 19:42:00 Dejah Sal 350.1.13.10 [place] 4.2.7.2.686 [place] [id number] 2018-12-21 2018-12-21 Orders Doctor RAS 1.2.840.114 [id number] 00:00:00 00:00:00 Only Unassigned, KAY 350.1.13.10 [place] [address]686 [id number] Results Test Description Test Time Test Comments Results Result Comments Source Hepatitis acute panel 2020-01-29 09:42:25 Test Item Value Reference Range Interpretation Comme nts Hepatitis A IgM (test code = 30045-4) Non-reactive Non-reactive Hepatitis B core IgM (test code = 58317-6) Non-reactive Non-reactiv e Hepatitis B surface Ag (test code = 5195-3) Non-reactive Non-reacti ve Hepatitis C Ab (test code = 71555-8) Non-reactive Non-reactive [place] MethodistHIV Ag/Ab [id number] 09:42:25 Test Item Value Reference Range Interpretation Comments HIV Ag/Ab combination (test code Non-reactive Non-reactive = 5299) [place] MethodistHemoglobin [id number] 08:59:44 Test Item Value Reference Range Interpretation Comments Hemoglobin A1C (test 5.5 % 4-5.6 HbA1c c utoffs for code = 58513-6) diagnosing d iabetes:4.0% - 5.6% = normal 5.7% - 6.4% = increase d risk for diabetes (prediabetes)9> =6.5% = xlrptzde5Yidzr for glycemic contro l (ADA 2016)< 7.0% Ta rget for non faviola lts with diabetes. More or less stringent targe ts may be appropriate for individual mary ents. <7.5% Target for Children and ad olescents with type 1 lara betes. Cruz MethodistLipid [id number] 08:18:33 Test Item Value Reference Interpretation Comments Range Cholesterol (test 156 mg/dL <200 code = 2093-3) Triglycerides (test 107 mg/dL <150 code = 2571-8) HDL cholesterol 35 mg/dL >40 L (test code = 2085-9) LDL cholesterol 109 mg/dL <100 H Result obtai jhoana by direct (test code = 2089-1) LDL roshan surement Lipid panel SeeBelow Total Cholester ol (mg/dL) interpretation (test < 200 code = 98904-8) Desirable 200-239 Borderline -high >=240 Hi gh Triglyceri marylin (mg/dL) <150 No rmal 150-199 Borderline-high 200-499 High >=500 Very high HDL Choles terol (mg/dL) <40 Low (male) < 40 Low (female) L DL Cholesterol (mg /dL) <100 Optimal 1 00-129 Near or above o ptimal 130-159 Borderline-high 160-189 High >=190 Very high Risk Cat ergories that modify LDL goals.Risk Catergories LDL goal (mg/dL )CHD and CHD risk equiva lent <100 (10-year risk >20%)Multiple ( 2+) risk factors < 130 (10-year risk = <20%)0-1 risk factors <160 (<10-ye ar risk) Defining levels of lipids in metabolic syndromeTriglyc erides > =150 mg/dLHDL Choles terol Men <40 mg/dL Women <40 mg/dL Non-HDL cholest becka is a second target f or therapy in personswith high triglycerides ( >=200 mg/dL) Lab Interpretation Abnormal (test code = 13590-8) Anthony [id number] 08:18:33 Test Item Value Reference Range Interpretation Comments GGT (test code = 2324-2) 141 U/L 0-59 H Lab Interpretation (test code = Abnormal 59144-0) Anthony AlmeidaMagnesium [id number] 08:18:33 Test Item Value Reference Range Interpretation Comments Magnesium (test code = 38375-9) 2.1 mg/dL 1.6-2.6 [place] MethodistRPR [id number] 16:27:39 Test Item Value Reference Range Interpretation Comments RPR Qual (test code = RPR Qual) Non-Reactive Non-Reactive Reactive Control (test code = Reactive Reactive Control) Weak Reactive Control (test Weak Reactive code = Weak Reactive Control) Non-Reactive Control (test code Non-Reactive = Non-Reactive Control) Lot # (test code = Lot #) [id number] N Expiration Dt (test code = 02-07-2021 N Expiration Dt) Lipid [id number] 07:26:04 Test Item Value Reference Range Interpretation [...] LDL/HDL Ratio=L DL Calc/HDL Chol Thyroid Stimulating [id number] 07:26:04 Test Item Value Reference Range Interpretation Comments TSH (test code = TSH) 1.757 mcIU/mL 0.550-4.780 Hemoglobin [id number] 07:26:03 Test Item Value Reference Range Interpretation Comments Hemoglobin A1c (test code 4.9 % 4.0-5.8 Di abetic >=6.5 = Hemoglobin A1c) %Prediabet es 5.7-6.4 %Normal <5.7 % MYOCARD IMAGING, MULTI, [id number] 14:45:00FINAL REPORT PROCEDURE: Rest/Stress MYOCARDIAL PERFUSION SPECT with treadm ill\XA9\ CPT CODE: 06031 INDICATION: Chest pain HISTORY: Cardiac risk factors: [...] 5. Normal extracardiactracer distribution. 6. No previous [facility] study for comparison. NONINVASIVE RISK STRATIFICATION: The above findings are considered low risk (<1% annual mortality rate) based on the following criterion:- Normal or small myocardial perfusion defect at rest or with stress(JACC. 2012;59(9):857-81.) Signed: Albert Ruvalcaba MDRranort Verified Date/Time: 03/17/2017 14:45:11 Reading Location: [address] Reading Room HEMOGLOBIN [id number] 08:29:00 Test Item Value Reference Range Interpretation Comments HEMOGLOBIN A1C (BEAKER) (test code = 5.5 % 4.3-6.1 368) CREATINE KINASE (CK), TOTAL AND [id number] 02:45:00 Test Item Value Reference Range Interpretation Comments CREATINE KINASE TOTAL (BEAKER) 34 U/L 29-200 (test code = 380) CREATINE KINASE-MB (BEAKER) (test 0.4 ng/mL 0.0-6.6 code = 750) CREATINE KINASE-MB INDEX (BEAKER) 1.2 % (test code = 395) CK-MB Reference Range:<6.7 Normal6.7-10.0 Borderline>10.0 AbnormalTROPONIN [id number] 02:45:00 Test Item Value Reference Range Interpretation [...] and persistent tachyarrhythmia.RAD, CHEST, 1 VIEW, NON [id number] 20:40:00Reason for exam:->chest painShould this be performed at the bedside?->YesFINAL REPORT EXAMINATION: AP PORTABLE CHEST RADIOGRAPH CLINICAL INDICATION:Chest pain IMPRESSION: Compared with 04/30/2016. No evidence of focal lung consolidation, pulmonary edema or pleural effusion. The heart size is normal. Mediastinal contours are sharp. No evidence of an acute osseous abnormality or pneumothorax. Signed: Santhosh Castle MDReport Verified Date/Time: 03/16/2017 20:40:21 Reading Location: [address] Reading Room B-TYPE NATRIURETIC FACTOR (BNP)2017-03-16 20:30:00 Test Item Value Reference Range Interpretation Comments B-TYPE NATRIURETIC PEPTIDE (BEAKER) < pg/mL 0-100 (test code = 700) COMPREHENSIVE METABOLIC [id number] 20:30:00 Test Item Value Reference Range Interpretation [...] ATED GFR. CREATINE KINASE (CK), TOTAL AND [id number] 20:28:00 Test Item Value Reference Range Interpretation Comments CREATINE KINASE TOTAL (BEAKER) 50 U/L 29-200 (test code = 380) CREATINE KINASE-MB (BEAKER) (test 0.5 ng/mL 0.0-6.6 code = 750) CREATINE KINASE-MB INDEX (BEAKER) 1.0 % (test code = 395) CK-MB Reference Range:<6.7 Normal6.7-10.0 Borderline>10.0 AbnormalTROPONIN [id number] 20:28:00 Test Item Value Reference Range Interpretation [...] failure, acidosis, acute neurological disease, and persistent tachyarrhythmia.[id number] 20:21:00 Test Item Value Reference Range Interpretation Comments MAGNESIUM (BEAKER) 2.2 mg/dL 1.6-2.6 Specimen slightly (test code = 627) hemolyzed [id number] 20:21:00 Test Item Value Reference Range Interpretation Comments PHOSPHORUS (BEAKER) 3.9 mg/dL 2.3-4.7 Specimen slightly (test code = 604) hemolyzed LIPID [id number] 20:21:00 Test Item Value Reference Range Interpretation [...] Borderline 130-159 High 160-189 Very High >=190PROTHROMBIN TIME/[id number] 20:07:00 Test Item Value Reference Range Interpretation Comments PROTIME (BEAKER) (test code = 13.0 seconds 11.7-14.7 759) INR (BEAKER) (test code = 370) 1.0 <=5.9 RECOMMENDED COUMADIN/WARFARIN INR THERAPY RANGESSTANDARD DOSE: 2.0 - 3.0 Includes: PROPHYLAXIS forvenous thrombosis, systemic embolization; TREATMENT for venous thrombosis and/or pulmonary embolus.HIGH RISK: Target INR is 2.5-3.5 for patients with mechanical heart valves.[id number] 20:07:00 Test Item Value Reference Range Interpretation Comments PARTIAL THROMBOPLASTIN TIME 26.9 seconds 22.5-36.0 (BEAKER) (test code = 760) CBC W/PLT COUNT & AUTO [id number] 19:57:00 Test Item Value Reference Range Interpretation [...] % 0-1 PERCENT (BEAKER) (test code = 5468)
== END 2020-02-10 18:41 ==
LOC: ER 15:56
DX: F10.129 Alcohol abuse with intoxication, unspecified (principal); I10 Essential (primary) hypertension
CPT/HCPCS: 36415; 80048; 80076; 80307; 80320; 80329; 81003; 83930; 83935; 85025; 85610; 85730; 93005; 99283; J7030

== ENCOUNTER 2020-03-28 13:50 | Emergency (ER) | payer SELFPAY ==
--- OUTSIDE RECORDS SUMMARY | 2020-03-28 13:52 | XMS REPORT | Clinical Summary ---
:1985 Author Organization [facility] Address [address] [place] [address] Care Team Providers Name Role Phone Vijay Luke MD Primary Care Provider Unavailable Allergies No Known Active Allergies Medications Medication Sig Dispensed Refills Start Date End Date Status busPIRone (BUSPAR) Take 1 tablet 14 tablet 0 02/01/20202019 7.5 MG (7.5 mg total) by tabletIndications: mouth 2 (two) generalized anxiety times a day for 7 disorder days .repeated episodes of anxiety. nicotine polacrilex Chew 1 each (2 mg 100 each 0 02/01/2020 1 (NICORETTE) 2 mg total) every 2 gumIndications: (two) hours as smoking cessation needed for smoking cessation for up to 30 days .stop smoking. venlafaxine XR Take 3 capsules 21 capsule 0 02/02/2020 020 (EFFEXOR-XR) 75 MG (225 mg total) by 24 hr mouth every capsuleIndications: morning for 7 major depressive days .major disorder depressive disorder. metoprolol tartrate Take 1 tablet (50 60 tablet 0 02/01/2020 1 (LOPRESSOR) 50 mg mg total) by tabletIndications: mouth BID at hypertension 0700, 1900 for 30 days .high blood pressure. Active Problems Problem Noted Date Alcohol dependence with uncomplicated withdrawal 01/28 Suicide attempt by alcohol poisoning 01/29/2020 Moderate benzodiazepine use disorder 01/29/2020 ЕЛЕНА (generalized anxiety disorder) 01/29/2020 Encounters Date Type Specialty Care Team Description 01/28/2020 - Hospital Encounter Psychiatry Nelly Fontanez M D 02/01/2020 after 03/28/2019 Immunizations Name Administration Dates Next Due FLUCMADISONX QUAD PF 01/28/2020 Medical History Medical History Date Comments Anxiety Alcohol abuse Depression Suicide attempt (HCC) Hypertension Family History Medical History Relation Name Comments Depression Maternal Aunt Alcohol abuse Maternal Uncle Depression Maternal Uncle Suicide Attempts Maternal Uncle Alcohol abuse Mother Relation Name Status Comments Father Alive Maternal Aunt Alive Maternal Uncle Mother Social History Tobacco Use Types Packs/Day Years Used Date Current Every Day Cigarettes, Electronic 1 10 Started: Smoker Cigarettes 01/27/1995 Smokeless Tobacco: Never Used Tobacco Cessation: Ready to Quit: No; Co unseling Given: Yes Alcohol Use Drinks/Week oz/Week Comments Yes 60 Cans of beer 60.0 Sex Assigned at Date Recorded Not on file Last Filed Vital Signs Vital Sign Reading Time Taken Comments Blood Pressure 138/78 02/01/2020 6:09 AM CDT Pulse 62 02/01/2020 6:09 AM CDT Temperature 36.5 C (97.7 F) 02/01/2020 6:09 AM CDT Respiratory Rate 18 02/01/2020 6:09 AM CDT Oxygen Saturation 98% 02/01/2020 6:09 AM CDT Inhaled Oxygen Concentration - - Weight 85.5 kg (188 lb 9.6 oz) 02/01/2020 7:04 AM CDT Height 170.2 cm (5' 7") 01/28/2020 2:00 PM CDT Body Mass Index 29.54 01/28/2020 2:00 PM CDT Plan of Treatment Not on file Procedures Procedure Name Priority Date/Time Associated Comments Diagnosis HIV AG/AB COMBINATION Routine 01/29/2020 6:10 Re sults for this AM CDT procedure are i n the results section. MAGNESIUM LEVEL Routine 01/29/2020 6:10 Results for this AM CDT procedure are i n the results section. GGT Routine 01/29/2020 6:10 Results for this AM CDT procedure are i n the results section. HEPATITIS ACUTE PANEL Routine 01/29/2020 6:10 Re sults for this AM CDT procedure are i n the results section. LIPID PANEL Routine 01/29/2020 6:10 Results for this AM CDT procedure are i n the results section. HEMOGLOBIN A1C Routine 01/29/2020 6:10 Results f or this AM CDT procedure are i n the results section. after 03/28/2019 Results HIV Ag/Ab combination (01/29/2020 6:10 AM CDT) HIV Ag/Ab combination Non-reactive Non-reactive [facility] Specimen Serum Performing Organization Address City/[facility]/ZIP [facility] Phon e Number [facility] DEPARTMENT OF PATHOLOGY AND [address] [place] [address] [phone] [address] Hepatitis acute panel (01/29/2020 6:10 AM CDT) Pathologist Sig nature Hepatitis A IgM Non-reactive Non-reactive [facility] Hepatitis B core Non-reactive Non-reactive [facility] Hepatitis B surface Non-reactive Non-reactive [facility] Hepatitis C Ab Non-reactive Non-reactive [facility] Specimen Serum Performing Organization Address City/[facility] Phon e Number [facility] DEPARTMENT OF PATHOLOGY AND [address] [place] [address] [phone] [address] Magnesium level (01/29/2020 6:10 AM CDT) Pathologist Sig [facility] Magnesium 2.1 1.6 - 2.6 mg/dL [facility] Specimen Blood Performing Organization Address City/[facility] Phon e Number [facility] DEPARTMENT OF PATHOLOGY AND [address] [place] [address] [phone] [address] Hemoglobin A1c (01/29/2020 6:10 AM CDT) Hemoglobin A1C 5.5 4.0 - 5.6 % [facility] Comment: HOSPITAL HbA1c cutoffs for diagnosing diabetes: 4.0% - 5.6% = normal 5.7% - 6.4% = increased risk for diabetes (prediabetes )9 >=6.5% = diabetes9 Goals for glycemic control (ADA 2016) < 7.0% Target for non adults with diabetes. More or less stringent targets may be appropriate for individual patients. <7.5% Target for Children and adolescents with type 1 diabetes. Specimen Blood Performing Organization Address City/State/ZIP [facility] Phon e Number [facility] DEPARTMENT OF PATHOLOGY AND [address] [place] [address] [phone] [address] GGT (01/29/2020 6:10 AM CDT) Pathologist Sig nature GGT 141 (H) 0 - 59 U/L [facility] Specimen Blood Performing Organization Address City/[facility] Phon e Number [facility] DEPARTMENT OF PATHOLOGY AND [address] [place], [place] [phone] [place] [id number] [place] [address] Lipid panel (01/29/2020 6:10 AM CDT) Cholesterol 156 <200 mg/dL [facility] Triglycerides 107 <150 mg/dL [facility] HDL cholesterol 35 (L) >40 mg/dL [facility] LDL cholesterol 109 (H)Comment: <100 mg/dL SARITA Result obtained by SCIENTOLOGY direct [facility] [employer] measurement Lipid panel [facility] interpretation Comment: SCIENTOLOGY Total Cholesterol (mg/dL) HOSPIT [place] <200 Desirable 200-239 Borderline-high >=240 High Triglycerides (mg/dL) <150 Normal 150-199 Borderline-high 200-499 High >=500 Very high HDL Cholesterol (mg/dL) <40 Low (male) <40 Low (female) LDL Cholesterol (mg/dL) <100 Optimal 100-129 Near or above optimal 130-159 Borderline-high 160-189 High >=190 Very high Risk Catergories that modify LDL goals. Risk Catergories LDL goal (mg/d L) CHD and CHD risk equivalent <100 (10-year risk >20%) Multiple (2+) risk factors <130 (10-year risk =<20%) 0-1 risk factors <160 (<10-year risk) Defining levels of lipids in metabolic syndrome Triglycerides >=150 mg/dL HDL Cholesterol Men <40 mg /dL Women <40 mg/ dL Non-HDL cholesterol is a second target for therapy in persons with high triglycerides (>=200 mg/dL) Specimen Blood Performing Organization Address City/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
--- OUTSIDE RECORDS SUMMARY | 2020-03-28 13:52 | XMS REPORT | Clinical Summary ---
:1985 Author Organization [facility] Address [address] [place] [id number] Care Team Providers Name Role Phone LukeVijay cornejo Maame Primary Care Provider Allergies No Known Allergies [...] Not on file Last Filed Vital Signs Not on file Plan of Treatment Not on file Results Not on fileafter 03/28/2019 Advance Directives For more information, please contact: [phone] Code Status Date Activated Date Inactivated Comments Full Code 03/16/2017 7:21 PM 03/17/2017 7:28 PM This code status was determined by: Patient
--- OUTSIDE RECORDS SUMMARY | 2020-03-28 13:53 | XMS REPORT | Continuity of Care Document ---
:1985 Author Organization [facility] t Address [address] [place] [address] Care Team Providers Name Role Phone Maame Luke Primary Care Physician Ernie Hassan Attending Clinician Unavailable Ernie Hassan Attending Clinician Unavailable Ashlie BELTRÁN, M. Attending Clinician Lexy Thomas MD Attending Clinician Singer LAW Attending Clinician Fatimah BELTRÁN S Attending Clinician Margarita Marroquin Attending Clinician Doctor Unassigned, Name Attending Clinician Unavailable Clinic, Neurology Continuity Attending Clinician Unavailcydney Dos Santos AUTOMOTIVE PARTS COORDINATOR Attending Clinician Chantel DUNLAP R Attending Clinician Jeremiah RHODESP Attending Clinician Joseph GARCIA Attending Clinician Unavailable Ernie Hassan Admitting Clinician Unavailable ASHLIE Admitting Clinician Unavailable Joseph GARCIA Admitting Clinician Unavailable Problems Condition Condition Condition Status Onset Resolution Last Treating Co mments Source Name Details Category Date Date Treatment Clinician Date Alcohol Alcohol Disease Active [facility] dependence dependence - Me thodi with with 00:00: st uncomplica uncomplica 00 luis luis withdrawal withdrawal Suicide Suicide Disease Active [facility] attempt by attempt by 01-28 Me th[facility] alcohol alcohol 00:00: st poisoning poisoning 00 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 Maternal aunt Depression [facility] Maternal uncle Alcohol abuse [facility] Maternal uncle Depression [facility] Maternal uncle Suicide Attempts [place] [facility] Natural mother Alcohol abuse [facility] Social History Social Habit Start Date Stop Date Quantity Comments Source History of tobacco 1995-01-27 Current every Ori [facility]on [facility] use 00:00:00 day smoker Alcohol Comment socially [facility] Sex Assigned At [facility] ethodist Cigarettes smoked 2020-01-28 2020-01-28 [facility] current (pack per 00:00:00 00:00:00 day) - Reported Cigarette 2020-01-28 2020-01-28 [facility] Method ist pack-years 00:00:00 00:00:00 Tobacco use and 2020-01-28 2020-01-28 Never used [facility] ethodist exposure 00:00:00 00:00:00 Alcohol intake 2020-01-28 2020-01-28 Current drinker [facility]la on [facility] 00:00:00 00:00:00 of alcohol (finding) Smoking Status Start Date Stop Date Source Current every day smoker 2020-01-28 00:00:00 Ori Almeida Medications Ordered Filled Start Stop Current Ordering Indication Dosage Frequency Signature Comments Components Source Medication Medication Date Date Medication? Clinician (SIG) Name Name venlafaxine major 225mg QD Take 3 [place] XR 02-01 depressive capsules Meth herminio (EFFEXOR-XR 00:00: 23:59 disorder ([address] ) 75 MG 24 00 :00 total) by hr capsule mouth every morning for 7 days .major depressive disorder. nicotine No smoking 2mg Q2H Chew 1 Ori benavidez polacrilex 01-31 cessation each (2 mg Methodi (NICORETTE) 00:00: 23:59 total) st 2 mg gum 00 :00 every 2 (two) hours as needed for smoking cessation for up to 30 days .stop smoking. metoprolol No hypertensio 50mg Q.5D Take 1 [facility] tartrate 01-31 n tablet (50 Meth herminio (LOPRESSOR) 00:00: 23:59 mg total) st 50 mg 00 :00 by mouth tablet BID at 0700, 1900 for 30 days .high blood pressure. busPIRone 2019- No generalized 7.5mg Q.5D Take 1 [facility] (BUSPAR) 01-31 anxiety tablet Metho di 7.5 MG 00:00: 23:59 disorder (7.[address] tablet 00 :00 total) by mouth 2 (two) times a day for 7 days .repeated episodes of anxiety. Immunizations Ordered Immunization Filled Immunization Date Status Commen ts Source Name Name FLUCELVAX QUAD PF 2020-01-28 Completed [facility] 00:00:00 [facility] Vital Signs Vital Name Observation Time Observation Value Comments Source Body weight 2020-02-01 07:04:00 85.548 kg Anthony Almeida BMI 2020-02-01 07:04:00 29.54 kg/m2 [facility] Systolic blood 2020-02-01 06:09:39 138 mm[Hg] Asuncion Almeida pressure Diastolic blood 2020-02-01 06:09:39 78 mm[Hg] [place] [facility] pressure Heart rate 2020-02-01 06:09:39 62 /min [facility] Body temperature 2020-02-01 06:09:39 36.5 Siobhan [place] [facility] Respiratory rate 2020-02-01 06:09:39 18 /min [place] [facility] Oxygen saturation in 2020-02-01 06:09:39 98 /min [facility] Arterial blood by Pulse oximetry Body height 2020-01-28 14:00:00 170.2 cm Anthony Almeida Procedures Procedure Date / Time Performed Performing Clinician Sourc e HEMOGLOBIN A1C 2020-01-29 06:10:00 Vaibhav Pelaezvioleta Bell [facility] LIPID PANEL 2020-01-29 06:10:00 Amarjit Pelaeza S [facility] HEPATITIS ACUTE PANEL 2020-01-29 06:10:00 Lelo Pelaez [facility] GGT 2020-01-29 06:10:00 Lelo Pelaez Ray [facility] MAGNESIUM LEVEL 2020-01-29 06:10:00 Amarjit Pelaeza Ray [facility] HIV AG/AB COMBINATION 2020-01-29 06:10:00 Amarjit Pelaeza Ray [facility] Encounters Start End Encounter Admission Attending Care Care Encounter Source Date/Time Date/Time Type Type Clinicians Facility Department ID 2019-12-28 Inpatient 3 Ted Hassan [facility] PSY [id number] 22:04:00 Ted Hassan [id number] [facility] 2020-01-28 2020-02-01 Inpatient [facility] [id number] [facility] 00:00:00 00:00:00 ROSI [address] 2019-12-28 2020-01-02 Inpatient 3 Hassan, Ted [facility] PSY [id number] St. 22:04:00 17:20:00 Ted Hassan [facility] 2019-11-09 2019-11-10 Emergency SHRUTHI Thomas [id number] 23:06:12 01:26:00 Clovis Huang 350.1.13.10 [place] 4.2.7.2.686 [place] [id number] 2019-09-29 2019-09-29 Emergency Singer [facility] [id number] 09:39:50 11:47:00 Johan Sal 350.1.13.10 [place] 4.2.7.2.686 [place] [id number] [id number] 2019-06-16 2019-06-16 Emergency Fatimah, [facility] [id number] 07:08:27 08:57:00 Nadine Bell Sal 350.1.13.10 [place] 4.2.7.2.686 [place] [id number] 2019-06-15 2019-06-15 Emergency Shelley Shahid [facility] [id number] 11:30:00 13:30:00 Margarita Sal 350.1.13.10 [place] 4.2.7.2.686 [place] [id number] 2019-06-15 2019-06-15 Orders Doctor MCGINNIS [id number] 00:00:00 00:00:00 Only Unassigned, KAY 350.1.13.10 [facility] 4.2.7.2.686 [id number] [id number] 2019-06-06 2019-06-06 Letter Clinic, [facility] [id number] 00:00:00 00:00:00 (Out) Neurology [facility] 350.1.13.10 [facility] 4.2.7.2.686 [id number] 2019 2019 Urgent [facility] [id number] 10:16:26 10:55:[address] [facility] 350.1.13.10 Surgical 4.2.7.2.686 Specialti [id number] teddy Khai Sal 2019 2019 Orders Doctor RAS [id number] 00:00:00 00:00:00 Only Unassigned, KAY 350.1.13.10 [facility] 4.2.7.2.686 [id number] [id number] 2019-01-24 2019-01-24 Emergency [facility] [id number] 15:49:15 22:27:00 Anitra Knightton 350.1.13.10 [place] 4.2.7.2.686 [place] [id number] [id number] 2019-01-24 2019-01-24 Orders Doctor RAS [id number] 00:00:00 00:00:00 Only Unassigned, KAY 350.1.13.10 [place] [address]686 [id number] [id number] 2018-12-21 2018-12-21 Emergency Jeremiah, [facility] [id number] 17:07:20 19:42:00 Dejah [place] 350.1.13.10 [place] 4.2.7.2.686 [place] [id number] [id number] 2018-12-21 2018-12-21 Orders Doctor RAS 1.2.840.114 [id number] 00:00:00 00:00:00 Only Unassigned, KAY [place]13.10 [place] [address].2.7.2.686 [id number] [id number] Results Test Description Test Time Test Comments Results Result Comments Source Hepatitis acute panel 2020-01-29 09:42:25 Test Item Value Reference Range Interpretation Comme nts Hepatitis A IgM (test code = 76107-6) Non-reactive Non-reactive Hepatitis B core IgM (test code = 71259-3) Non-reactive Non-reactiv e Hepatitis B surface Ag (test code = 5195-3) Non-reactive Non-reacti ve Hepatitis C Ab (test code = 08092-0) Non-reactive Non-reactive [facility]Ab [id number] 09:42:25 Test Item Value Reference Range Interpretation Comments HIV Ag/Ab combination (test code Non-reactive Non-reactive = 5299) [facility] [id number] 08:59:44 Test Item Value Reference Range Interpretation Comments Hemoglobin A1C (test 5.5 % 4-5.6 HbA1c c utoffs for code = 76498-8) diagnosing d iabetes:4.0% - 5.6% = normal 5.7% - 6.4% = increase d risk for diabetes (prediabetes)9> =6.5% = wwmusssj3Oxuyc for glycemic contro l (ADA 2016)< 7.0% Ta rget for non faviola lts with diabetes. More or less stringent targe ts may be appropriate for individual mary ents. <7.5% Target for Children and ad olescents with type 1 lara betes. [facility] MethodistLipid [id number] 08:18:33 Test Item Value Reference Interpretation Comments [...] (mg/dL) interpretation (test < 200 code = 66035-1) Desirable 200-239 Borderline -high >=240 Hi gh [...] mg/dL) Lab Interpretation Abnormal (test code = 35350-0) Anthony [id number] 08:18:33 Test Item Value Reference Range Interpretation Comments GGT (test code = 2324-2) 141 U/L 0-59 H Lab Interpretation (test code = Abnormal 22863-3) [facility] MethodistMagnesium [id number] 08:18:33 Test Item Value Reference Range Interpretation Comments Magnesium (test code = 31187-9) 2.1 mg/dL 1.6-2.6 [facility] MethodistRPR [id number] 16:27:39 Test Item Value Reference Range Interpretation Comments RPR Qual (test code = RPR Qual) Non-Reactive Non-Reactive Reactive Control (test code = Reactive Reactive Control) Weak Reactive Control (test Weak Reactive code = Weak Reactive Control) Non-Reactive Control (test code Non-Reactive = Non-Reactive Control) Lot # (test code = Lot #) [id number] N Expiration Dt (test code = 02-07-2021 N Expiration Dt) Lipid [id number] 07:26:04 Test Item Value Reference Range Interpretation [...] LDL/HDL Ratio=L DL Calc/HDL Chol Thyroid Stimulating [id number] 07:26:04 Test Item Value Reference Range Interpretation Comments TSH (test code = TSH) 1.757 mcIU/mL 0.550-4.780 Hemoglobin [id number] 07:26:03 Test Item Value Reference Range Interpretation Comments Hemoglobin A1c (test code 4.9 % 4.0-5.8 Di abetic >=6.5 = Hemoglobin A1c) %Prediabet es 5.7-6.4 %Normal <5.7 % MYOCARD IMAGING, MULTI, [id number] 14:45:00FINAL REPORT PROCEDURE: Rest/Stress MYOCARDIAL PERFUSION SPECT with treadm ill\XA9\ CPT CODE: 87796 INDICATION: Chest pain HISTORY: Cardiac risk factors: [...] 5. Normal extracardiactracer distribution. 6. No previous [facility] study for comparison. NONINVASIVE RISK STRATIFICATION: The above findings are considered low risk (<1% annual mortality rate) based on the following criterion:- Normal or small myocardial perfusion defect at rest or with stress(JACC. 2012;59(9):857-81.) Signed: Albert Ruvalcaba Verified Date/Time: 03/17/2017 14:45:11 Reading Location: [place] [id number] Reading Room HEMOGLOBIN [id number] 08:29:00 Test Item Value Reference Range Interpretation Comments HEMOGLOBIN A1C (BEAKER) (test code = 5.5 % 4.3-6.1 368) CREATINE KINASE (CK), TOTAL AND [id number] 02:45:00 Test Item Value Reference Range Interpretation Comments CREATINE KINASE TOTAL (BEAKER) 34 U/L 29-200 (test code = 380) CREATINE KINASE-MB (BEAKER) (test 0.4 ng/mL 0.0-6.6 code = 750) CREATINE KINASE-MB INDEX (BEAKER) 1.2 % (test code = 395) CK-MB Reference Range:<6.7 Normal6.7-10.0 Borderline>10.0 AbnormalTROPONIN [id number] 02:45:00 Test Item Value Reference Range Interpretation [...] and persistent tachyarrhythmia.RAD, CHEST, 1 VIEW, NON [id number] 20:40:00Reason for exam:->chest painShould this be performed at the bedside?->YesFINAL REPORT EXAMINATION: AP PORTABLE CHEST RADIOGRAPH CLINICAL INDICATION:Chest pain IMPRESSION: Compared with 04/30/2016. No evidence of focal lung consolidation, pulmonary edema or pleural effusion. The heart size is normal. Mediastinal contours are sharp. No evidence of an acute osseous abnormality or pneumothorax. Signed: Santhosh Castle MDReport Verified Date/Time: 03/16/2017 20:40:21 Reading Location: [address] Reading Room B-TYPE NATRIURETIC FACTOR (BNP)2017-03-16 20:30:00 Test Item Value Reference Range Interpretation Comments B-TYPE NATRIURETIC PEPTIDE (BEAKER) < pg/mL 0-100 (test code = 700) COMPREHENSIVE METABOLIC [id number] 20:30:00 Test Item Value Reference Range Interpretation [...] ATED GFR. CREATINE KINASE (CK), TOTAL AND [id number] 20:28:00 Test Item Value Reference Range Interpretation Comments CREATINE KINASE TOTAL (BEAKER) 50 U/L 29-200 (test code = 380) CREATINE KINASE-MB (BEAKER) (test 0.5 ng/mL 0.0-6.6 code = 750) CREATINE KINASE-MB INDEX (BEAKER) 1.0 % (test code = 395) CK-MB Reference Range:<6.7 Normal6.7-10.0 Borderline>10.0 AbnormalTROPONIN [id number] 20:28:00 Test Item Value Reference Range Interpretation [...] failure, acidosis, acute neurological disease, and persistent tachyarrhythmia.[id number] 20:21:00 Test Item Value Reference Range Interpretation Comments MAGNESIUM (BEAKER) 2.2 mg/dL 1.6-2.6 Specimen slightly (test code = 627) hemolyzed [id number] 20:21:00 Test Item Value Reference Range Interpretation Comments PHOSPHORUS (BEAKER) 3.9 mg/dL 2.3-4.7 Specimen slightly (test code = 604) hemolyzed LIPID [id number] 20:21:00 Test Item Value Reference Range Interpretation [...] Borderline 130-159 High 160-189 Very High >=190PROTHROMBIN TIME/[id number] 20:07:00 Test Item Value Reference Range Interpretation Comments PROTIME (BEAKER) (test code = 13.0 seconds 11.7-14.7 759) INR (BEAKER) (test code = 370) 1.0 <=5.9 RECOMMENDED COUMADIN/WARFARIN INR THERAPY RANGESSTANDARD DOSE: 2.0 - 3.0 Includes: PROPHYLAXIS forvenous thrombosis, systemic embolization; TREATMENT for venous thrombosis and/or pulmonary embolus.HIGH RISK: Target INR is 2.5-3.5 for patients with mechanical heart valves.[id number] 20:07:00 Test Item Value Reference Range Interpretation Comments PARTIAL THROMBOPLASTIN TIME 26.9 seconds 22.5-36.0 (BEAKER) (test code = 760) CBC W/PLT COUNT & AUTO [id number] 19:57:00 Test Item Value Reference Range Interpretation [...] % 0-1 PERCENT (BEAKER) (test code = 0624)
--- NOTE | 2020-03-28 19:08 | ER ---
Nurse's Notes [facility] Name: Srini Simpson Age: 34 yrs Sex: Male : 1985 Arrival Date: 03/28/2020 Time: 13:51 Bed Waiting Private MD: Jovanni Luke H Diagnosis: Presentation: 03/28 14:20 Chief complaint: Patient states: headache and cough started about 2 hours ago. Pt dm5 states that he feels nervous about the way he feels. Pt normally take metoprolol for blood pressure which is well controlled normally but is 140/102 at this time. Coronavirus screen: headache, Client presents with at least one sign or symptom that may indicate coronavirus-19. Standard/surgical mask placed on the client. Ebola Screen: Patient negative for fever greater than or equal to 101.5 degrees Fahrenheit, and additional compatible Ebola Virus Disease symptoms Patient denies exposure to infectious person. Patient denies travel to an Ebola-affected area in the 21 days before illness onset. No symptoms or risks identified at this time. Initial Sepsis Screen: Does the patient meet any 2 criteria? No. Patient's initial sepsis screen is negative. Does the patient have a suspected source of infection? Yes: Productive cough/pneumonia. Risk Assessment: Do you want to hurt yourself or someone else? Patient reports no desire to harm self or others. Onset of symptoms was March 28, 2020. 14:20 Method Of Arrival: Ambulatory dm5 14:20 Acuity: CHRISTINE 3 dm5 Assessment: 19:07 Reassessment: pt not in lobby. iw Vital Signs: 14:20 BP 140 / 102; Pulse 75; Resp 18; Temp 99.1(TE); Pulse Ox 98% on R/A; Weight 81.65 kg; dm5 Height 5 ft. 7 in. (170.18 cm); Pain 6/10; 14:20 Body Mass Index 28.19 (81.65 kg, 170.18 cm) dm5 ED Course: 13:51 Patient arrived in ED. ag5 13:51 Jovanni Luke DO is Private Physician. ag5 14:23 Triage completed. dm5 Administered Medications: No medications were administered Outcome: 19:07 Patient left the ED. iw Signatures: Lou Brandon, RN RN dm5 Snow Rincon RN RN iw Miguel, Dora ag5
[2020-03-29 01:05] VITALS: BP 140/102; TEMP 99.1; O2SAT 98
== END 2020-03-28 19:07 | disposition left against medical advice (07) ==
LOC: ER 13:50
DX: Z53.21 Procedure and treatment not carried out due to patient leaving prior to being seen by health care provider (principal)
CPT/HCPCS: 99281

== ENCOUNTER 2020-03-30 14:00 | Emergency (ER) | payer SELFPAY ==
--- OUTSIDE RECORDS SUMMARY | 2020-03-30 14:02 | XMS REPORT | Continuity of Care Document ---
:1985 Author Organization [facility] t Address [address] [place] [address] Care Team Providers Name Role Phone Maame Luke Primary Care Physician Ernie Hassan Attending Clinician Unavailable Ernie Hassan Attending Clinician Unavailable Ashlie BELTRÁN, M. Attending Clinician Lexy Thomas MD Attending Clinician Singer LAW Attending Clinician Fatimah BELTRÁN S Attending Clinician Margarita Marroquin Attending Clinician Doctor Unassigned, Name Attending Clinician Unavailable Clinic, Neurology Continuity Attending Clinician Unavailcydney Dos Santos UNDERWRITER SOLICITATION DIRECTOR Attending Clinician Chantel DUNLAP R Attending Clinician Jeremiah RHODESP Attending Clinician Joseph GARCIA Attending Clinician Unavailable Ernie Hassan Admitting Clinician Unavailable ASHLIE Admitting Clinician Unavailable Joseph GARCIA Admitting Clinician Unavailable Problems Condition Condition Condition Status Onset Resolution Last Treating Co mments Source Name Details Category Date Date Treatment Clinician Date Alcohol Alcohol Disease Active [place] dependence dependence - Me thodi with with 00:00: st uncomplica uncomplica 00 luis luis withdrawal withdrawal Suicide Suicide Disease Active [place] attempt by attempt by 01-28 Me thodi alcohol alcohol 00:00: st poisoning poisoning 00 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 01-28 Me thodi pine use pine use 00:00: st disorder disorder 00 ЕЛЕНА ЕЛЕНА Disease Active [place] (generaliz (generaliz 01-28 Me thodi ed anxiety [...] Stop Date Source Natural father Heart attack [facility] Paternal grandfather Heart attack I [facility] Maternal aunt Depression [place] [facility] Maternal uncle Alcohol abuse [facility] Maternal uncle Depression [facility] thodist Maternal uncle Suicide Attempts [place] [facility] Natural mother Alcohol abuse [place] [facility] Social History Social Habit Start Date Stop Date Quantity Comments Source History of tobacco 1995-01-27 Current every Ori ston [facility] use 00:00:00 day smoker Alcohol Comment socially [facility] Sex Assigned At [facility] ethodist Cigarettes smoked 2020-01-28 2020-01-28 [place] [facility] current (pack per 00:00:00 00:00:00 day) - Reported Cigarette 2020-01-28 2020-01-28 [place] Method ist pack-years 00:00:00 00:00:00 Tobacco use and 2020-01-28 2020-01-28 Never used [facility] ethodist exposure 00:00:00 00:00:00 Alcohol intake 2020-01-28 2020-01-28 Current drinker Kayla on [facility] 00:00:00 00:00:00 of alcohol (finding) Smoking Status [...] metoprolol No hypertensio 50mg Q.5D Take 1 [place] tartrate 01-31 n tablet (50 Meth herminio (LOPRESSOR) 00:00: 23:59 mg total) st 50 mg 00 :00 by mouth tablet BID at 0700, 1900 for 30 days .high blood pressure. busPIRone 2019- No generalized 7.5mg Q.5D Take 1 [place] (BUSPAR) 01-31 anxiety tablet Metho di 7.5 MG 00:00: 23:59 disorder (7.[address] tablet 00 :00 total) by mouth 2 (two) times a day for 7 days .repeated episodes of anxiety. Immunizations Ordered Immunization Filled Immunization Date Status Commen ts Source Name Name FLUCELVAX QUAD PF 2020-01-28 Completed [place] 00:00:00 [facility] Vital Signs Vital Name Observation Time Observation Value Comments Source Body weight 2020-02-01 07:04:00 85.548 kg Anthony Almeida BMI 2020-02-01 07:04:00 29.54 kg/m2 [place] [facility] Systolic blood 2020-02-01 06:09:39 138 mm[Hg] Asuncion Almeida pressure Diastolic blood 2020-02-01 06:09:39 78 mm[Hg] [place] [facility] pressure Heart rate 2020-02-01 06:09:39 62 /min [facility] Body temperature 2020-02-01 06:09:39 36.5 Siobhan [place] [facility] Respiratory rate 2020-02-01 06:09:39 18 /min [place] [facility] Oxygen saturation in 2020-02-01 06:09:39 98 /min [place] [facility] Arterial blood by Pulse oximetry Body height 2020-01-28 14:00:00 170.2 cm Anthony Almeida Procedures Procedure Date / Time Performed Performing Clinician Sourc e HEMOGLOBIN A1C 2020-01-29 06:10:00 Vaibhav Pelaezvioleta Bell [facility] LIPID PANEL 2020-01-29 06:10:00 Amarjit Pelaeza S [facility] HEPATITIS ACUTE PANEL 2020-01-29 06:10:00 Lelo Pelaez ton [facility] GGT 2020-01-29 06:10:00 Lelo Pelaez Ray [facility] MAGNESIUM LEVEL 2020-01-29 06:10:00 Amarjit Pelaeza Ray [facility] HIV AG/AB COMBINATION 2020-01-29 06:10:00 Amarjit Pelaeza Ray [place] [facility] Encounters Start End Encounter Admission Attending Care Care Encounter Source Date/Time Date/Time Type Type Clinicians Facility Department ID 2019-12-28 Inpatient 3 Ted Hassan [facility] [id number] 22:04:00 Ted Hassan [id number] [facility] 2020-01-28 2020-02-01 Inpatient [facility] [id number] [place] 00:00:00 00:00:00 ROSI [address] 2019-12-28 2020-01-02 Inpatient 3 Hassan, Ted [facility] PSY [id number] St. 22:04:00 17:20:00 Ted Hassan [facility] 2019-11-09 2019-11-10 Emergency SHRUTHI Thomas [id number] 23:06:12 01:26:00 Clovis Huang [id number] [place] 4.2.7.2.686 [place] [id number] 2019-09-29 2019-09-29 Emergency Singer [facility] [id number] 09:39:50 11:47:00 Johan Sal [id number] [place] 4.2.7.2.686 [place] [id number] 2019-06-16 2019-06-16 Emergency Fatimah, [facility] [id number] 07:08:27 08:57:00 Nadine Bell Sal [id number] [place] 4.2.7.2.686 [place] [id number] 2019-06-15 2019-06-15 Emergency Shelley Shahid [facility] [id number] 11:30:00 13:30:00 Margarita Sal [id number] [place] 4.2.7.2.686 [place] [id number] 2019-06-15 2019-06-15 Orders Doctor MCGINNIS [id number] 00:00:00 00:00:00 Only Unassigned, KAY 350.1.13.10 [place] [facility] 4.2.7.2.686 [id number] 2019-06-06 2019-06-06 Letter Clinic, [facility] [id number] 00:00:00 00:00:00 (Out) Neurology [facility] 350.1.13.10 [facility] 4.2.7.2.686 [id number] 2019 2019 [facility] [id number] 10:16:26 10:55:[address] [facility] [id number] Surgical 4.2.7.2.686 Specialti [id number] teddy Khai Sal 2019 2019 Orders Doctor RAS [id number] 00:00:00 00:00:00 Only Unassigned, KAY 350.1.13.10 [place] 4.2.7.2.686 [id number] [id number] 2019-01-24 2019-01-24 Emergency [facility] [id number] 15:49:15 22:27:00 Anitra [place] 350.1.13.10 [place] 4.2.7.2.686 [place] [id number] [id number] 2019-01-24 2019-01-24 Orders Doctor RAS [id number] 00:00:00 00:00:00 Only Unassigned, KAY 350.1.13.10 [place] [address]686 [id number] 2018-12-21 2018-12-21 Emergency Jeremiah, [facility] [id number] 17:07:20 19:42:00 Dejah [place] 350.1.13.10 [place] 4.2.7.2.686 [place] [id number] 2018-12-21 2018-12-21 Orders Doctor RAS [id number] [id number] 00:00:00 00:00:00 Only Unassigned, KAY [place].1.13.10 [place] [address].2.7.2.686 [id number] [id number] Results Test Description Test Time Test Comments Results Result Comments Source Hepatitis acute panel 2020-01-29 09:42:25 Test Item Value Reference Range Interpretation Comme nts Hepatitis A IgM (test code = 26807-2) Non-reactive Non-reactive Hepatitis B core IgM (test code = 85408-9) Non-reactive Non-reactiv e Hepatitis B surface Ag (test code = 5195-3) Non-reactive Non-reacti ve Hepatitis C Ab (test code = 62534-7) Non-reactive Non-reactive [place] [facility] Ag/Ab [id number] 09:42:25 Test Item Value Reference Range Interpretation Comments HIV Ag/Ab combination (test code Non-reactive Non-reactive = 5299) [place] MethodistHemoglobin [id number] 08:59:44 Test Item Value Reference Range Interpretation Comments Hemoglobin A1C (test 5.5 % 4-5.6 HbA1c c utoffs for code = 08188-5) diagnosing d iabetes:4.0% - 5.6% = normal 5.7% - 6.4% = increase d risk for diabetes (prediabetes)9> =6.5% = vpijgqsf7Mwhfc for glycemic contro l (ADA 2016)< 7.0% Ta rget for non faviola lts with diabetes. More or less stringent targe ts may be appropriate for individual mary ents. <7.5% Target for Children and ad olescents with type 1 lara betes. [facility] MethodistLipid [id number] 08:18:33 Test Item Value Reference Interpretation Comments [...] (mg/dL) interpretation (test < 200 code = 57508-0) Desirable 200-239 Borderline -high >=240 Hi gh [...] mg/dL) Lab Interpretation Abnormal (test code = 85141-9) Anthony [id number] 08:18:33 Test Item Value Reference Range Interpretation Comments GGT (test code = 2324-2) 141 U/L 0-59 H Lab Interpretation (test code = Abnormal 29019-2) [facility] MethodistMagnesium [id number] 08:18:33 Test Item Value Reference Range Interpretation Comments Magnesium (test code = 69231-6) 2.1 mg/dL 1.6-2.6 [place] MethodistRPR [id number] 16:27:39 Test Item Value Reference Range Interpretation Comments RPR Qual (test code = RPR Qual) Non-Reactive Non-Reactive Reactive Control (test code = Reactive Reactive Control) Weak Reactive Control (test Weak Reactive code = Weak Reactive Control) Non-Reactive Control (test code Non-Reactive = Non-Reactive Control) Lot # (test code = Lot #) [id number] N Expiration Dt (test code = 02-07-2021 N Expiration Dt) Lipid [id number] 07:26:04 Test Item Value Reference Range Interpretation [...] LDL/HDL Ratio=L DL Calc/HDL Chol Thyroid Stimulating [id number] 07:26:04 Test Item Value Reference Range Interpretation Comments TSH (test code = TSH) 1.757 mcIU/mL 0.550-4.780 Hemoglobin [id number] 07:26:03 Test Item Value Reference Range Interpretation Comments Hemoglobin A1c (test code 4.9 % 4.0-5.8 Di abetic >=6.5 = Hemoglobin A1c) %Prediabet es 5.7-6.4 %Normal <5.7 % MYOCARD IMAGING, MULTI, [id number] 14:45:00FINAL REPORT PROCEDURE: Rest/Stress MYOCARDIAL PERFUSION SPECT with treadm ill\XA9\ CPT CODE: 92171 INDICATION: Chest pain HISTORY: Cardiac risk factors: [...] 5. Normal extracardiactracer distribution. 6. No previous [facility] study for comparison. NONINVASIVE RISK STRATIFICATION: The above findings are considered low risk (<1% annual mortality rate) based on the following criterion:- Normal or small myocardial perfusion defect at rest or with stress(JACC. 2012;59(9):857-81.) Signed: Albert Ruvalcaba Verified Date/Time: 03/17/2017 14:45:11 Reading Location: [place] [id number] Reading Room HEMOGLOBIN [id number] 08:29:00 Test Item Value Reference Range Interpretation Comments HEMOGLOBIN A1C (BEAKER) (test code = 5.5 % 4.3-6.1 368) CREATINE KINASE (CK), TOTAL AND [id number] 02:45:00 Test Item Value Reference Range Interpretation Comments CREATINE KINASE TOTAL (BEAKER) 34 U/L 29-200 (test code = 380) CREATINE KINASE-MB (BEAKER) (test 0.4 ng/mL 0.0-6.6 code = 750) CREATINE KINASE-MB INDEX (BEAKER) 1.2 % (test code = 395) CK-MB Reference Range:<6.7 Normal6.7-10.0 Borderline>10.0 AbnormalTROPONIN [id number] 02:45:00 Test Item Value Reference Range Interpretation [...] and persistent tachyarrhythmia.RAD, CHEST, 1 VIEW, NON [id number] 20:40:00Reason for exam:->chest painShould this be performed at the bedside?->YesFINAL REPORT EXAMINATION: AP PORTABLE CHEST RADIOGRAPH CLINICAL INDICATION:Chest pain IMPRESSION: Compared with 04/30/2016. No evidence of focal lung consolidation, pulmonary edema or pleural effusion. The heart size is normal. Mediastinal contours are sharp. No evidence of an acute osseous abnormality or pneumothorax. Signed: Santhosh Castle MDReport Verified Date/Time: 03/16/2017 20:40:21 Reading Location: [address] Reading Room B-TYPE NATRIURETIC FACTOR (BNP)2017-03-16 20:30:00 Test Item Value Reference Range Interpretation Comments B-TYPE NATRIURETIC PEPTIDE (BEAKER) < pg/mL 0-100 (test code = 700) COMPREHENSIVE METABOLIC [id number] 20:30:00 Test Item Value Reference Range Interpretation [...] ATED GFR. CREATINE KINASE (CK), TOTAL AND [id number] 20:28:00 Test Item Value Reference Range Interpretation Comments CREATINE KINASE TOTAL (BEAKER) 50 U/L 29-200 (test code = 380) CREATINE KINASE-MB (BEAKER) (test 0.5 ng/mL 0.0-6.6 code = 750) CREATINE KINASE-MB INDEX (BEAKER) 1.0 % (test code = 395) CK-MB Reference Range:<6.7 Normal6.7-10.0 Borderline>10.0 AbnormalTROPONIN [id number] 20:28:00 Test Item Value Reference Range Interpretation [...] failure, acidosis, acute neurological disease, and persistent tachyarrhythmia.[id number] 20:21:00 Test Item Value Reference Range Interpretation Comments MAGNESIUM (BEAKER) 2.2 mg/dL 1.6-2.6 Specimen slightly (test code = 627) hemolyzed [id number] 20:21:00 Test Item Value Reference Range Interpretation Comments PHOSPHORUS (BEAKER) 3.9 mg/dL 2.3-4.7 Specimen slightly (test code = 604) hemolyzed LIPID [id number] 20:21:00 Test Item Value Reference Range Interpretation [...] Borderline 130-159 High 160-189 Very High >=190PROTHROMBIN TIME/[id number] 20:07:00 Test Item Value Reference Range Interpretation Comments PROTIME (BEAKER) (test code = 13.0 seconds 11.7-14.7 759) INR (BEAKER) (test code = 370) 1.0 <=5.9 RECOMMENDED COUMADIN/WARFARIN INR THERAPY RANGESSTANDARD DOSE: 2.0 - 3.0 Includes: PROPHYLAXIS forvenous thrombosis, systemic embolization; TREATMENT for venous thrombosis and/or pulmonary embolus.HIGH RISK: Target INR is 2.5-3.5 for patients with mechanical heart valves.[id number] 20:07:00 Test Item Value Reference Range Interpretation Comments PARTIAL THROMBOPLASTIN TIME 26.9 seconds 22.5-36.0 (BEAKER) (test code = 760) CBC W/PLT COUNT & AUTO [id number] 19:57:00 Test Item Value Reference Range Interpretation [...] % 0-1 PERCENT (BEAKER) (test code = 3257)
--- OUTSIDE RECORDS SUMMARY | 2020-03-30 14:02 | XMS REPORT | Clinical Summary ---
:1985 Author Organization [facility] Address [address] [place] [address] Care Team Providers Name Role Phone Vijay [...] Psychiatry Nelly Fontanez M D 02/01/2020 after 03/30/2019 Immunizations Name Administration Dates Next Due FLUCMADISONX [...] are i n the results section. after 03/30/2019 Results HIV Ag/Ab combination (01/29/2020 6:10 AM CDT) HIV Ag/Ab combination Non-reactive Non-reactive [facility] Specimen Serum Performing Organization Address City/[facility]/ZIP [facility] Phon e Number [facility] DEPARTMENT OF PATHOLOGY AND [address] [place] [address] [phone] [address] Hepatitis acute panel (01/29/2020 6:10 AM CDT) Pathologist Sig nature Hepatitis A IgM Non-reactive Non-reactive [facility] Hepatitis B core Non-reactive Non-reactive [facility] Hepatitis B surface Non-reactive Non-reactive [facility] Hepatitis C Ab Non-reactive Non-reactive [facility] Specimen Serum Performing Organization Address City[facility] Phon e Number [facility] DEPARTMENT OF PATHOLOGY AND [address] [place] [address] [phone] [address] Magnesium level (01/29/2020 6:10 AM CDT) Pathologist Sig [facility] Magnesium 2.1 1.6 - 2.6 mg/dL [facility] L Specimen Blood Performing Organization Address City[facility] Phon e Number [facility] DEPARTMENT OF PATHOLOGY AND [address] [place] [address] [phone] [address] Hemoglobin A1c (01/29/2020 6:10 AM CDT) Hemoglobin A1C 5.5 4.0 - 5.6 % [facility] Comment: HOSPITAL HbA1c cutoffs for diagnosing diabetes: [...] diabetes. Specimen Blood Performing Organization Address City/State/ZIP [facility] Phon e Number [facility] DEPARTMENT OF PATHOLOGY AND [address] [place] [address] [phone] [address] GGT (01/29/2020 6:10 AM CDT) Pathologist Sig nature GGT 141 (H) 0 - 59 U/L [facility] Specimen Blood Performing Organization Address City[facility] Phon e Number [facility] DEPARTMENT OF PATHOLOGY AND [address] [place], [place] [address] [place] [id number] [place] [address] Lipid panel (01/29/2020 6:10 AM CDT) Cholesterol 156 <200 mg/dL [facility] Triglycerides 107 <150 mg/dL [facility] HDL cholesterol 35 (L) >40 mg/dL [facility] LDL cholesterol 109 (H)Comment: <100 mg/dL [place] Result obtained by [facility]ITH direct [facility] measurement Lipid panel [facility] interpretation Comment: FAITH Total Cholesterol (mg/dL) HOSPIT [place] <200 Desirable [...] (>=200 mg/dL) Specimen Blood Performing Organization Address City[facility] Phon e Number [facility] DEPARTMENT OF PATHOLOGY AND [address] [place], [place] [address] [place] [phone] [place] [address] after 03/30/2019 Advance Directives For more information, please contact: [phone] Type Date Recorded 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
--- OUTSIDE RECORDS SUMMARY | 2020-03-30 14:02 | XMS REPORT | Clinical Summary ---
:1985 Author Organization [facility] Address [address] [place] [address] Care Team Providers Name Role Phone LukeVijay [...] Not on file Results Not on fileafter 03/30/2019 Advance Directives For more information, please contact: [phone] Code Status Date Activated Date Inactivated Comments Full Code 03/16/2017 7:21 PM 03/17/2017 7:28 PM This code status was determined by: Patient
[2020-03-30] MEDS ORDERED: MECLIZINE HCL 12.5 MG TAB ONE (14:43)
--- NOTE | 2020-03-30 15:22 | RAD REPORT ---
EXAM DESCRIPTION: RAD - Chest Single View - 03/30/2020 2:43 pm CLINICAL HISTORY: COUGH COMPARISON: Portable December 25 TECHNIQUE: AP portable chest image was obtained 03/30/2020 2:43 pm . FINDINGS: Lungs are clear. Patchy lung parenchymal opacification seen in December does not persist. He art and vasculature are normal. No measurable pleural effusion and no pneumothorax. No acute bony abn ormality seen. No acute aortic findings suspected. IMPRESSION: No acute cardiopulmonary process.
--- NOTE | 2020-03-30 16:22 | EDPHYS ---
Physician Documentation [facility] Name: Srini Simpson Age: 34 yrs Sex: Male : 1985 Arrival Date: 03/30/2020 Time: 14:01 Bed 7 Private MD: ED Physician Yusuf Kirk HPI: 03/30 14:25 This 34 yrs old Male presents to ER via EMS with complaints of Dizziness, cp Diarrhea. 14:25 The patient presents with dizziness, lightheadedness. Onset: The symptoms/episode cp began/occurred today. Context: occurred while the patient was walking, just prior to the episode the patient experienced no apparent symptoms. Associated signs and symptoms: Pertinent positives: cough, diarrhea, body aches. 14:25 Patient reports girlfriend tested positive for COVID-19 2 days ago. cp Historical: - Allergies: 14:09 No Known Allergies; em - PMHx: 14:09 Anxiety; Depression; Hypertension; Pyloric Stenosis; em - PSHx: 14:09 None; em - Immunization history:: Adult Immunizations up to date. - Social history:: Smoking status: Patient reports the use of cigarette tobacco products, smokes one-half pack cigarettes per day. ROS: 14:30 Eyes: Negative for injury, pain, redness, and discharge. cp 14:30 Constitutional: Positive for body aches, Negative for chills, fever, poor PO intake. 14:30 ENT: Negative for ear pain, difficulty swallowing, difficulty handling secretions. 14:30 Cardiovascular: Negative for chest pain, palpitations. 14:30 Respiratory: Positive for cough, Negative for shortness of breath, wheezing. 14:30 Abdomen/GI: Positive for diarrhea, Negative for abdominal pain, nausea, vomiting. 14:30 : Negative for urinary symptoms. 14:30 Neuro: Positive for dizziness, Negative for altered mental status, headache, syncope, weakness. 14:30 All other systems are negative. Exam: 14:35 Constitutional: The patient appears in no acute distress, alert, awake, cp non-diaphoretic, non-toxic, well developed, well nourished. 14:35 Head/Face: Normocephalic, atraumatic. cp 14:35 Eyes: Periorbital structures: appear normal, Conjunctiva: normal, no exudate, no injection, Sclera: no appreciated abnormality, Lids and lashes: appear normal, bilaterally. 14:35 ENT: External ear(s): are unremarkable, Ear canal(s): are normal, clear, TM's: bulging, is not appreciated, bilaterally, erythema, is not appreciated, bilaterally, Nose: is normal, Mouth: Lips: moist, Oral mucosa: moist, Posterior pharynx: Airway: no evidence of obstruction, patent, Tonsils: are normal in appearance, erythema, is not appreciated, exudate, is not appreciated. 14:35 Neck: ROM/movement: is normal, is supple, without pain, no range of motions limitations. 14:35 Chest/axilla: Inspection: normal, Palpation: is normal, no crepitus, no tenderness. 14:35 Cardiovascular: Rate: normal, Rhythm: regular. 14:35 Respiratory: the patient does not display signs of respiratory distress, Respirations: normal, no use of accessory muscles, no retractions, labored breathing, is not present, Breath sounds: are clear throughout, no decreased breath sounds, no stridor, no wheezing. 14:35 Abdomen/GI: Inspection: abdomen appears normal, Bowel sounds: active, all quadrants, Palpation: abdomen is soft and non-tender, in all quadrants. 14:35 Back: pain, is absent, ROM is normal. 14:35 Neuro: Orientation: is normal, Mentation: is normal, Cerebellar function: is grossly normal, Motor: is normal, Sensation: is normal. Vital Signs: 14:06 BP 153 / 104; Pulse 69; Resp 18; Temp 98.7; Pulse Ox 98% on R/A; Weight 88.45 kg; em Height 5 ft. 7 in. (170.18 cm); Pain 0/10; 14:45 BP 151 / 108 Supine; Pulse 65; em 14:45 BP 160 / 112 Sitting; Pulse 73; em 14:45 BP 150 / 117; Pulse 80; em 15:58 BP 140 / 99; Pulse 74; Resp 16; Pulse Ox 95% on R/A; em 16:57 BP 151 / 102; Pulse 75; Resp 18; Pulse Ox 99% on R/A; em 14:06 Body Mass Index 30.54 (88.45 kg, 170.18 cm) em MDM: 14:08 Patient medically screened. cp 14:35 Differential diagnosis: cardiac arrhythmia, generalized weakness, hypovolemia, cp idiopathic dizziness. 16:17 Data reviewed: vital signs, nurses notes, lab test result(s), radiologic studies, plain cp films. 03/30 14:18 Order name: COVID-19 03/30 14:18 Order name: Strep; Complete Time: 16:18 03/30 16:18 Interpretation: Reviewed. 03/30 14:18 Order name: Influenza Screen (a \T\ B); Complete Time: 16:18 03/30 16:18 Interpretation: Reviewed. 03/30 14:18 Order name: XRAY Chest (1 view); Complete Time: 15:24 03/30 15:24 Interpretation: Report reviewed. 03/30 16:20 Order name: Throat Culture [facility] 03/30 14:18 Order name: Orthostatics; Complete Time: 14:55 cp Administered Medications: 14:54 Drug: Meclizine 25 mg Route: PO; em 16:58 Follow up: Response: No adverse reaction; Marked relief of symptoms em Disposition: 17:59 Co-signature as Attending Physician, Yusuf Kirk MD. rn Disposition: 03/30/20 16:21 Discharged to Home. Impression: Dizziness and giddiness, Diarrhea, unspecified, Cough. - Condition is Stable. - Discharge Instructions: Diarrhea, Adult, Dizziness, Cough, Adult. - Prescriptions for Meclizine 25 mg Oral Tablet - take 1 tablet by ORAL route every 8 hours As needed; 30 tablet. Tessalon Perles 100 mg Oral Capsule - take 2 capsule by ORAL route every 8 hours As needed; 20 capsule. - Medication Reconciliation Form, Thank You Letter, Antibiotic Education, Prescription Opioid Use form. - Follow up: Private Physician; When: 1 - 2 days; Reason: Worsening of condition. - Problem is new. - Symptoms have improved. Signatures: Dispatcher [employer] Sea Oritz RN RN em Yusuf Kirk MD MD rn Smirch, Shelby, RN RN ss Page, Corey, PA PA cp Corrections: (The following items were deleted from the chart) 17:06 16:21 03/30/2020 16:21 Discharged to Home. Impression: Dizziness and giddiness; ss Diarrhea, unspecified; Cough. Condition is Stable. Forms are Medication Reconciliation Form, Thank You Letter, Antibiotic Education, Prescription Opioid Use. Follow up: Private Physician; When: 1 - 2 days; Reason: Worsening of condition. Problem is new. Symptoms have improved. cp 03/31 13:24 03/30 14:25 Associated signs and symptoms: Pertinent positives: cough, diarrhea, cp cp 03/31 13:03/30 12:30 Constitutional: Positive for body aches, Negative for chills, fever, poor cp PO intake, cp 03/31 13:03/30 12:30 Eyes: Negative for injury, pain, redness, and discharge, cp cp 03/31 13:03/30 12:30 ENT: Negative for ear pain, difficulty swallowing, difficulty handling cp secretions, cp 03/31 13:03/30 12:30 Cardiovascular: Negative for chest pain, palpitations, cp cp 03/31 13:03/30 12:30 Respiratory: Positive for cough, Negative for shortness of breath, cp wheezing, cp 03/31 13:03/30 12:30 Abdomen/GI: Positive for diarrhea, Negative for abdominal pain, nausea, cp vomiting, cp 03/31 13:03/30 12:30 : Negative for urinary symptoms, cp cp 03/31 13:03/30 12:30 Neuro: Positive for dizziness, Negative for altered mental status, cp headache, syncope, weakness, cp 03/31 13:03/30 12:30 All other systems are negative, cp cp
--- NOTE | 2020-03-30 16:22 | ER ---
Nurse's Notes [facility] Name: Srini Simpson Age: 34 yrs Sex: Male : 1985 Arrival Date: 03/30/2020 Time: 14:01 Bed 7 Private MD: Diagnosis: Dizziness and giddiness;Diarrhea, unspecified;Cough Presentation: 03/30 14:06 Chief complaint: EMS states: called out for dizziness while walking to the store, also em reports body aches and diarrhea, denies fever, girlfriend tested pos. for covid 2 days ago. Coronavirus screen: diarrhea, muscle pain, Client presents with at least one sign or symptom that may indicate coronavirus-19. Standard/surgical mask placed on the client. Provider contacted for isolation considerations. Ebola Screen: Patient negative for fever greater than or equal to 101.5 degrees Fahrenheit, and additional compatible Ebola Virus Disease symptoms Patient denies exposure to infectious person. Patient denies travel to an Ebola-affected area in the 21 days before illness onset. No symptoms or risks identified at this time. Initial Sepsis Screen: Does the patient meet any 2 criteria? No. Patient's initial sepsis screen is negative. Does the patient have a suspected source of infection? No. Patient's initial sepsis screen is negative. Risk Assessment: Do you want to hurt yourself or someone else? Patient reports no desire to harm self or others. Onset of symptoms was March 30, 2020. 14:06 Method Of Arrival: EMS: [facility] em 14:06 Acuity: CHRISTINE 3 em Historical: - Allergies: 14:09 No Known Allergies; em - PMHx: 14:09 Anxiety; Depression; Hypertension; Pyloric Stenosis; em - PSHx: 14:09 None; em - Immunization history:: Adult Immunizations up to date. - Social history:: Smoking status: Patient reports the use of cigarette tobacco products, smokes one-half pack cigarettes per day. Screenin:09 Abuse screen: Denies threats or abuse. Nutritional screening: No deficits noted. em Tuberculosis screening: No symptoms or risk factors identified. Fall Risk None identified. Assessment: 14:06 General: Appears in no apparent distress. comfortable, Behavior is calm, cooperative, em appropriate for age. Pain: Complains of pain in "body aches". Neuro: Level of Consciousness is awake, alert, obeys commands, Oriented to person, place, time, situation, Appropriate for age. Cardiovascular: Capillary refill < 3 seconds Patient's skin is warm and dry. Respiratory: Airway is patent Respiratory effort is even, unlabored, Respiratory pattern is regular, symmetrical. GI: Reports diarrhea, nausea. Derm: Skin is intact, is healthy with good turgor, Skin is pink, warm \\T\\ dry. Musculoskeletal: Capillary refill < 3 seconds, Range of motion: intact in all extremities. 14:45 Reassessment: Patient appears in no apparent distress at this time. Patient and/or em family updated on plan of care and expected duration. Pain level reassessed. Patient is alert, oriented x 3, equal unlabored respirations, skin warm/dry/pink. 16:03 Reassessment: Patient appears in no apparent distress at this time. Patient and/or em family updated on plan of care and expected duration. Pain level reassessed. Patient is alert, oriented x 3, equal unlabored respirations, skin warm/dry/pink. 16:56 Reassessment: Patient appears in no apparent distress at this time. Patient and/or em family updated on plan of care and expected duration. Pain level reassessed. Patient is alert, oriented x 3, equal unlabored respirations, skin warm/dry/pink. Patient states feeling better. Patient states symptoms have improved. Vital Signs: 14:06 BP 153 / 104; Pulse 69; Resp 18; Temp 98.7; Pulse Ox 98% on R/A; Weight 88.45 kg; em Height 5 ft. 7 in. (170.18 cm); Pain 0/10; 14:45 BP 151 / 108 Supine; Pulse 65; em 14:45 BP 160 / 112 Sitting; Pulse 73; em 14:45 BP 150 / 117; Pulse 80; em 15:58 BP 140 / 99; Pulse 74; Resp 16; Pulse Ox 95% on R/A; em 16:57 BP 151 / 102; Pulse 75; Resp 18; Pulse Ox 99% on R/A; em 14:06 Body Mass Index 30.54 (88.45 kg, 170.18 cm) em ED Course: 14:01 Patient arrived in ED. jl7 14:02 Jeevan Diaz PA is PHCP. cp 14:02 Yusuf Kirk MD is Attending Physician. cp 14:03 Sea Motley, RN is Primary Nurse. em 14:08 Triage completed. em 14:09 Arm band placed on. em 14:09 Patient has correct armband on for positive identification. Bed in low position. Call em light in reach. Side rails up X2. Pulse ox on. NIBP on. 14:43 XRAY Chest (1 view) In Process Unspecified. EDMS 14:45 Flu and/or RSV swab sent to lab. Strep swab sent to lab. covid swab sent to lab. em 16:57 No provider procedures requiring assistance completed. Patient did not have IV access em during this emergency room visit. Administered Medications: 14:54 Drug: Meclizine 25 mg Route: PO; em 16:58 Follow up: Response: No adverse reaction; Marked relief of symptoms em Outcome: 16:21 Discharge ordered by MD. cp 16:57 Discharged to home ambulatory. em 16:57 Condition: improved 16:57 Discharge instructions given to patient, Instructed on discharge instructions, follow up and referral plans. medication usage, Demonstrated understanding of instructions, follow-up care, medications, Prescriptions given X 2. 17:06 Patient left the ED. Addendum: 04/02/2020 11:49 Addendum: COVID-19 Result: Negative result given to RN to notify pt. Notified pt of i w negative COVID 19 swab results. Pt advised that even with a negative test result they should remain in isolation until symptom free for 3 days without medication. Pt also advised to return to the ED for worsening symptoms. Signatures: Dispatcher [employer] Sea Mcpherson RN RN Snow Rincon RN RN Justyna Ortega RN RN Jeevan Diaz PA PA cp Leal, Jahala, RN RN [id number] Corrections: (The following items were deleted from the chart) 03/30 14:11 14:06 Chief complaint: EMS states: called out for dizziness while walking to the store, em also reports body aches and diarrhea, denies fever em
[2020-03-31 02:56] VITALS: TEMP 98.7
[2020-03-31 03:18] VITALS: BP 151/102; O2SAT 99
== END 2020-03-30 17:06 | disposition home or self-care (01) ==
LOC: ER 14:00
DX: R19.7 Diarrhea, unspecified (principal); R05 Cough; Z20.828 Contact with and (suspected) exposure to other viral communicable diseases; I10 Essential (primary) hypertension; F17.210 Nicotine dependence, cigarettes, uncomplicated
CPT/HCPCS: 71045; 87070; 87081; 87804; 99284; U0002

== ENCOUNTER 2020-05-22 21:58 | Emergency (ER) | payer SELFPAY ==
--- OUTSIDE RECORDS SUMMARY | 2020-05-22 22:00 | XMS REPORT | Clinical Summary ---
:1985 Author Organization [facility] Address [address] [place] [id number] Care Team Providers Name Role Phone Vijay [...] Psychiatry Nelly Fontanez M D 02/01/2020 after 05/22/2019 Immunizations Name Administration Dates Next Due FLUCELVAX QUAD PF 01/28/2020 Medical History Medical History [...] are i n the results section. after 05/22/2019 Results HIV Ag/Ab combination (01/29/2020 6:10 AM CDT) HIV Ag/Ab combination Non-reactive Non-reactive [facility] Specimen Serum Performing Organization Address City/[facility]/ZIP [facility] Phon e Number [facility] AND [address] [place] [address] [phone] [address] Hepatitis acute panel (01/29/2020 6:10 AM CDT) Pathologist Sig nature Hepatitis A IgM Non-reactive Non-reactive [facility] Hepatitis B core Non-reactive Non-reactive [facility] Hepatitis B surface Non-reactive Non-reactive [facility] Hepatitis C Ab Non-reactive Non-reactive [facility] Specimen Serum Performing Organization Address City/[facility] Phon e Number [facility] AND [address] [place] [address] [phone] [address] Magnesium level (01/29/2020 6:10 AM CDT) Pathologist Sig [facility] Magnesium 2.1 1.6 - 2.6 mg/dL [facility] Specimen Blood Performing Organization Address City/[facility] Phon e Number [facility] AND [address] [place] [address] [phone] [address] Hemoglobin A1c (01/29/2020 6:10 AM CDT) Hemoglobin A1C 5.5 4.0 - 5.6 % [facility] Comment: HOSPITAL HbA1c cutoffs for diagnosing diabetes: [...] diabetes. Specimen Blood Performing Organization Address City/State/ZIP [facility] Phon e Number [facility] AND [address] [place] [address] [phone] [address] GGT (01/29/2020 6:10 AM CDT) Pathologist Sig nature GGT 141 (H) 0 - 59 U/L [facility] Specimen Blood Performing Organization Address City/[facility] Phon e Number [facility] AND [address] [place], [place] [phone] [phone] [place] [address] Lipid panel (01/29/2020 6:10 AM CDT) Cholesterol 156 <200 mg/dL [facility] Triglycerides 107 <150 mg/dL [facility] HDL cholesterol 35 (L) >40 mg/dL [facility] LDL cholesterol 109 (H)Comment: <100 mg/dL [place] Result obtained by [facility] direct [facility] measurement Lipid panel [facility] interpretation Comment: [facility] Total Cholesterol (mg/dL) HOSPIT [place] <200 Desirable [...] (>=200 mg/dL) Specimen Blood Performing Organization Address City/[facility] Phon e Number [facility]OLOGY AND [address] [place], [place] [phone] [phone] [place] [address] after 05/22/2019 Advance Directives For more information, please contact: [phone] Type Date Recorded Patient [employer] Belt Explanati on Advance Directives, Living Will and Medical Power of Law Examiner
--- OUTSIDE RECORDS SUMMARY | 2020-05-22 22:01 | XMS REPORT | Clinical Summary ---
:1985 Author Organization [facility] Address [address] [place] [address] Care Team Providers Name Role Phone Vijay Luke Maame Primary Care Provider Allergies No Known [...] Not on file Results Not on fileafter 05/22/2019 Advance Directives For more information, please contact: [phone] Code Status Date Activated Date Inactivated Comments Full Code 03/16/2017 7:21 PM 03/17/2017 7:28 PM This code status was determined by: Patient
--- OUTSIDE RECORDS SUMMARY | 2020-05-22 22:02 | XMS REPORT | Continuity of Care Document ---
:1985 Author Organization [facility] t Address [address] [place] [address] Dr. [address] [place] [address] Care Team Providers Name Role Phone Maame Luke Primary Care Physician Ernie Hassan Attending Clinician Unavailable Ernie Hassan Attending Clinician Unavailable Ashlie BELTRÁN, M. Attending Clinician Lexy Thomas MD Attending Clinician Singer LAW Attending Clinician Fatimah BELTRÁN S Attending Clinician Margarita Marroquin Attending Clinician Doctor Unassigned, Name Attending Clinician Unavailable Clinic, Neurology Continuity Attending Clinician Unavailcydney Dos Santos CHILD CARE NURSE Attending Clinician Chantel DUNLAP R Attending Clinician Jeremiah RHODESP Attending Clinician Joseph GARCIA Attending Clinician Unavailable Ernie Hassan Admitting Clinician Unavailable ASHLIE Admitting Clinician Unavailable Joseph GARCIA Admitting Clinician Unavailable Problems Condition Condition Condition Status Onset Resolution Last Treating Co mments Source Name Details Category Date Date Treatment Clinician Date Alcohol Alcohol Disease Active [place] dependence dependence - Me thodi with with 00:00: st uncomplica uncomplica 00 luis luis withdrawal withdrawal Suicide Suicide Disease Active [place] attempt by attempt by 01-28 Me thodi alcohol alcohol 00:00: st poisoning poisoning 00 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 Paternal grandfather Heart attack I [facility] Maternal aunt Depression [facility] Maternal uncle Alcohol abuse [facility] Maternal uncle Depression [facility] Maternal uncle Suicide Attempts [place] Natural mother Alcohol abuse [place] Mormon Social History Social Habit Start Date Stop Date Quantity Comments Source History of tobacco 1995-01-27 Current every Ori ston Mormon use 00:00:00 day smoker Alcohol Comment socially [facility] Sex Assigned At [facility] ethodist Cigarettes smoked 2020-01-28 2020-01-28 [facility] current (pack per 00:00:00 00:00:00 day) - Reported Cigarette 2020-01-28 2020-01-28 [place] Method ist pack-years 00:00:00 00:00:00 Tobacco use and 2020-01-28 2020-01-28 Never used [facility] ethodist exposure 00:00:00 00:00:00 Alcohol intake 2020-01-28 2020-01-28 Current drinker Kayla on Mormon 00:00:00 00:00:00 of alcohol (finding) Smoking Status [...] for 7 days .major depressive disorder. nicotine smoking 2mg Q2H Chew 1 Ori benavidez polacrilex 01-31 cessation each (2 mg Methodi (NICORETTE) 00:00: 23:59 total) st 2 mg gum 00 :00 every 2 (two) hours as needed for smoking cessation for up to 30 days .stop smoking. metoprolol hypertensio 50mg Q.5D Take 1 [place] tartrate 01-31 n tablet (50 Meth herminio (LOPRESSOR) 00:00: 23:59 mg total) st 50 mg 00 :00 by mouth tablet BID at 0700, 1900 for 30 days .high blood pressure. busPIRone generalized 7.5mg Q.5D Take 1 [place] (BUSPAR) 01-31 anxiety tablet Metho di 7.5 MG 00:00: 23:59 disorder (7.[address] tablet 00 :00 total) by mouth 2 (two) times a day for 7 days .repeated episodes of anxiety. Immunizations Ordered Immunization Filled Immunization Date Status Commen ts Source Name Name FLUCELVAX QUAD PF 2020-01-28 Completed [place] 00:00:00 Mormon Vital Signs Vital Name Observation Time Observation Value Comments Source Body weight 2020-02-01 07:04:00 85.548 kg Anthony Almeida BMI 2020-02-01 07:04:00 29.54 kg/m2 [facility] Systolic blood 2020-02-01 06:09:39 138 mm[Hg] Asuncion Almeida pressure Diastolic blood 2020-02-01 06:09:39 78 mm[Hg] [place] pressure Heart rate 2020-02-01 06:09:39 62 /min [place] [facility] Body temperature 2020-02-01 06:09:39 36.5 Siobhan [place] Respiratory rate 2020-02-01 06:09:39 18 /min [place] Oxygen saturation in 2020-02-01 06:09:39 98 /min [place] [facility] Arterial blood by Pulse oximetry Body height 2020-01-28 14:00:00 170.2 cm Anthony Almeida Procedures Procedure Date / Time Performed Performing Clinician Sourc e HEMOGLOBIN A1C 2020-01-29 06:10:00 Amarjit Pelaezshahab Bell [place] [facility] LIPID PANEL 2020-01-29 06:10:00 Amarjit Pelaezshahab Bell [facility] HEPATITIS ACUTE PANEL 2020-01-29 06:10:00 Lelo Pelaez [place] GGT 2020-01-29 06:10:00 Lelo Pelaez Me [facility]odist MAGNESIUM LEVEL 2020-01-29 06:10:00 Amarjit Pelaeza Ray [facility] HIV AG/AB COMBINATION 2020-01-29 06:10:00 Amarjit Pelaeza Ray [place] Encounters Start End Encounter Admission Attending Care Care Encounter Source Date/Time Date/Time Type Type Clinicians Facility Department ID 2019-12-28 Inpatient 3 Mo Ted [facility] PSY [id number] [facility] 22:04:00 Ted Hassan -[id number] 2020-01-28 2020-02-01 Inpatient [facility] [id number] [place] 00:00:00 00:00:00 ROSI [address] 2019-12-28 2020-01-02 Inpatient 3 Ted Hassan [facility] PSY [id number] [facility] 22:04:00 17:20:00 Ted Hassan 2019-11-09 2019-11-10 Emergency Martha [facility] [id number] 23:06:12 01:26:00 Clovis Huang [id number] [place] 4.2.7.2.686 [place] [id number] 2019-09-29 2019-09-29 Emergency Singer [facility] [id number] 09:39:50 11:47:00 Johan Knightton [id number] [place] 4.2.7.2.686 [place] [id number] [id number] 2019-06-16 2019-06-16 Emergency Fatimah [facility] [id number] 07:08:27 08:57:00 Nadine Huang [id number] [place] 4.2.7.2.686 [place] [id number] 2019-06-15 2019-06-15 Emergency Shelley Shahid [facility] [id number] 11:30:00 13:30:00 Margarita Knightton [id number] [place] 4.2.7.2.686 [place] [id number] 2019-06-15 2019-06-15 Orders Doctor MCGINNIS [id number] 00:00:00 00:00:00 Only Unassigned, KAY [id number] [place] [facility] 4.2.7.2.686 [id number] 2019-06-06 2019-06-06 Letter Clinic, [facility] [id number] 00:00:00 00:00:00 (Out) Neurology HEALTH [id number] Continuity CLINICS 4.2.7.2.686 [id number] 2019 2019 Urgent [facility] [id number] 10:16:26 10:55:54 Care [facility] [id number] Surgical 4.2.7.2.686 Special [id number] teddy Khai Sal 2019 2019 Orders Doctor RAS 1.2.840.114 [id number] 00:00:00 00:00:00 Only UnassignedKAY 350.1.13.10 [place] [facility] 4.2.7.2.686 [id number] 2019-01-24 2019-01-24 Emergency [facility] [id number] 15:49:15 22:27:00 Anitra Brownlee Sal [id number] [place] 4.2.7.2.686 [place] [id number] [id number] 2019-01-24 2019-01-24 Orders Doctor RAS [id number] 00:00:00 00:00:00 Only Unassigned, KAY 350.1.13.10 [place] [address]686 [id number] [id number] 2018-12-21 2018-12-21 Emergency [place], [facility] [id number] 17:07:20 19:42:00 Dejah Sal 350.1.13.10 [place] 4.2.7.2.686 [place] [id number] [id number] 2018-12-21 2018-12-21 Orders Doctor RAS [id number] 00:00:00 00:00:00 Only Unassigned, KAY 350.1.13.10 [place] [address]686 [id number] Results Test Description Test Time Test Comments Results Result Comments Source Hepatitis acute panel 2020-01-29 09:42:25 Test Item Value Reference Range Interpretation Comme nts Hepatitis A IgM (test code = 33555-8) Non-reactive Non-reactive Hepatitis B core IgM (test code = 15810-8) Non-reactive Non-reactiv e Hepatitis B surface Ag (test code = 5195-3) Non-reactive Non-reacti ve Hepatitis C Ab (test code = 89258-8) Non-reactive Non-reactive [facility] [facility] Ag/Ab [id number] 09:42:25 Test Item Value Reference Range Interpretation Comments HIV Ag/Ab combination (test code Non-reactive Non-reactive = 5299) [place] MethodistHemoglobin [id number] 08:59:44 Test Item Value Reference Range Interpretation Comments Hemoglobin A1C (test 5.5 % 4-5.6 HbA1c c utoffs for code = 38950-0) diagnosing d iabetes:4.0% - 5.6% = normal 5.7% - 6.4% = increase d risk for diabetes (prediabetes)9> =6.5% = crujjnxy7Ozygc for glycemic contro l (ADA 2016)< 7.0% Ta rget for non faviola lts with diabetes. More or less stringent targe ts may be appropriate for individual mary ents. <7.5% Target for Children and ad olescents with type 1 lara betes. Cruz MethodistLipid [id number] 08:18:33 Test Item Value Reference Interpretation Comments [...] (mg/dL) interpretation (test < 200 code = 80441-2) Desirable 200-239 Borderline -high >=240 Hi gh [...] mg/dL) Lab Interpretation Abnormal (test code = 69188-2) Cruz [id number] 08:18:33 Test Item Value Reference Range Interpretation Comments GGT (test code = 2324-2) 141 U/L 0-59 H Lab Interpretation (test code = Abnormal 44137-1) Anthony AlmeidaMagnesium [id number] 08:18:33 Test Item Value Reference Range Interpretation Comments Magnesium (test code = 54529-8) 2.1 mg/dL 1.6-2.6 Cruz MethodistRPR [id number] 16:27:39 Test Item Value Reference Range Interpretation Comments RPR Qual (test code = RPR Qual) Non-Reactive Non-Reactive Reactive Control (test code = Reactive Reactive Control) Weak Reactive Control (test Weak Reactive code = Weak Reactive Control) Non-Reactive Control (test code Non-Reactive = Non-Reactive Control) Lot # (test code = Lot #) [id number] N Expiration Dt (test code = 02-07-2021 N Expiration Dt) Lipid [id number] 07:26:04 Test Item Value Reference Range Interpretation [...] LDL/HDL Ratio=L DL Calc/HDL Chol Thyroid Stimulating [id number] 07:26:04 Test Item Value Reference Range Interpretation Comments TSH (test code = TSH) 1.757 mcIU/mL 0.550-4.780 Hemoglobin [id number] 07:26:03 Test Item Value Reference Range Interpretation Comments Hemoglobin A1c (test code 4.9 % 4.0-5.8 Di abetic >=6.5 = Hemoglobin A1c) %Prediabet es 5.7-6.4 %Normal <5.7 % [facility], [facility], [id number] 14:45:00FINAL REPORT PROCEDURE: Rest/Stress MYOCARDIAL PERFUSION SPECT with treadm ill\XA9\ CPT CODE: 62539 INDICATION: Chest pain HISTORY: Cardiac risk factors: [...] 5. Normal extracardiactracer distribution. 6. No previous [facility] study for comparison. NONINVASIVE RISK STRATIFICATION: The above findings are considered low risk (<1% annual mortality rate) based on the following criterion:- Normal or small myocardial perfusion defect at rest or with stress(JACC. 2012;59(9):857-81.) Signed: Albert Ruvalcaba MDReport Verified Date/Time: 03/17/2017 14:45:11 Reading Location: [address] Reading Room HEMOGLOBIN [id number] 08:29:00 Test Item Value Reference Range Interpretation Comments HEMOGLOBIN A1C (BEAKER) (test code = 5.5 % 4.3-6.1 368) CREATINE KINASE (CK), TOTAL AND [id number] 02:45:00 Test Item Value Reference Range Interpretation Comments CREATINE KINASE TOTAL (BEAKER) 34 U/L 29-200 (test code = 380) CREATINE KINASE-MB (BEAKER) (test 0.4 ng/mL 0.0-6.6 code = 750) CREATINE KINASE-MB INDEX (BEAKER) 1.2 % (test code = 395) CK-MB Reference Range:<6.7 Normal6.7-10.0 Borderline>10.0 AbnormalTROPONIN [id number] 02:45:00 Test Item Value Reference Range Interpretation [...] and persistent tachyarrhythmia.RAD, CHEST, 1 VIEW, NON [id number] 20:40:00Reason for exam:->chest painShould this be performed at the bedside?->YesFINAL REPORT EXAMINATION: AP PORTABLE CHEST RADIOGRAPH CLINICAL INDICATION:Chest pain IMPRESSION: Compared with 04/30/2016. No evidence of focal lung consolidation, pulmonary edema or pleural effusion. The heart size is normal. Mediastinal contours are sharp. No evidence of an acute osseous abnormality or pneumothorax. Signed: Santhosh Castle MDReport Verified Date/Time: 03/16/2017 20:40:21 Reading Location: [address] Reading Room B-TYPE NATRIURETIC FACTOR (BNP)2017-03-16 20:30:00 Test Item Value Reference Range Interpretation Comments B-TYPE NATRIURETIC PEPTIDE (BEAKER) < pg/mL 0-100 (test code = 700) COMPREHENSIVE METABOLIC [id number] 20:30:00 Test Item Value Reference Range Interpretation [...] ATED GFR. CREATINE KINASE (CK), TOTAL AND [id number] 20:28:00 Test Item Value Reference Range Interpretation Comments CREATINE KINASE TOTAL (BEAKER) 50 U/L 29-200 (test code = 380) CREATINE KINASE-MB (BEAKER) (test 0.5 ng/mL 0.0-6.6 code = 750) CREATINE KINASE-MB INDEX (BEAKER) 1.0 % (test code = 395) CK-MB Reference Range:<6.7 Normal6.7-10.0 Borderline>10.0 AbnormalTROPONIN [id number] 20:28:00 Test Item Value Reference Range Interpretation [...] failure, acidosis, acute neurological disease, and persistent tachyarrhythmia.[id number] 20:21:00 Test Item Value Reference Range Interpretation Comments MAGNESIUM (BEAKER) 2.2 mg/dL 1.6-2.6 Specimen slightly (test code = 627) hemolyzed [id number] 20:21:00 Test Item Value Reference Range Interpretation Comments PHOSPHORUS (BEAKER) 3.9 mg/dL 2.3-4.7 Specimen slightly (test code = 604) hemolyzed LIPID [id number] 20:21:00 Test Item Value Reference Range Interpretation [...] Borderline 130-159 High 160-189 Very High >=190PROTHROMBIN TIME/[id number] 20:07:00 Test Item Value Reference Range Interpretation Comments PROTIME (BEAKER) (test code = 13.0 seconds 11.7-14.7 759) INR (BEAKER) (test code = 370) 1.0 <=5.9 RECOMMENDED COUMADIN/WARFARIN INR THERAPY RANGESSTANDARD DOSE: 2.0 - 3.0 Includes: PROPHYLAXIS forvenous thrombosis, systemic embolization; TREATMENT for venous thrombosis and/or pulmonary embolus.HIGH RISK: Target INR is 2.5-3.5 for patients with mechanical heart valves.[id number] 20:07:00 Test Item Value Reference Range Interpretation Comments PARTIAL THROMBOPLASTIN TIME 26.9 seconds 22.5-36.0 (BEAKER) (test code = 760) CBC W/PLT COUNT & AUTO [id number] 19:57:00 Test Item Value Reference Range Interpretation [...] % 0-1 PERCENT (BEAKER) (test code = 1436)
[2020-05-22] MEDS ORDERED: NA CHLORIDE 0.9% 1,000 ML ONE ×2 (22:32→23:15)
[2020-05-22] MEDS ORDERED: LORazepam 2 MG/ML VIAL ONE (22:32)
[2020-05-22] MEDS ORDERED: MORPHINE 2 MG/ML SYR ONE ×2 (22:44→23:15)
[2020-05-22 22:47] LABS: Absolute Lymphocytes (CBC) 2.5 K/uL (0.7-4.9); Basophils % 1.3 % (0-1.3); Hematocrit 41.5 % (39.6-49.0); Lymphocytes % 25.5 % (15.3-44.8); MPV 7.9 fL (7.6-11.3); Protime INR 1.02; RBC Red Blood Cell Count 4.69 M/uL (4.33-5.43)
[2020-05-22 23:03] LABS: ALT/SGPT 29 U/L (12-78); AST/SGOT 33 U/L (15-37); Albumin 3.6 g/dL (3.4-5.0); Alkaline Phosphatase 62 U/L (45-117); BUN Blood Urea Nitrogen 9 mg/dL (7-18); Bicarbonate 27 mmol/L (21-32); Bilirubin Direct < 0.1 mg/dL (0-0.2); Bilirubin Total 0.3 mg/dL (0.2-1.0); Glucose Level 117 mg/dL (74-106); Magnesium 2.2 mg/dL (1.8-2.4); NT PRO-BNP 16 pg/mL (<125); Potassium 3.5 mmol/L (3.5-5.1); Protein, Total 7.2 g/dL (6.4-8.2); Sodium Level 140 mmol/L (136-145); Troponin (Emerg Dept Use Only) < 0.02 ng/mL (0.0-0.045)
[2020-05-23] MEDS ORDERED: METOPROLOL TARTRATE 5 MG/5 ML INJ IV ONE (01:19)
[2020-05-23] MEDS ORDERED: FOLIC ACID 5 MG/ML VIAL ONE (01:20)
[2020-05-23] MEDS ORDERED: MULTIVITAMINS 10 ML VIAL (INJ) IV ONE (01:20)
[2020-05-23] MEDS ORDERED: THIAMINE 200 MG/2 ML INJ ONE (01:22)
[2020-05-23] MEDS ORDERED: NA CHLORIDE 0.9% 1,000 ML ONE (01:22)
[2020-05-23] MEDS ORDERED: LORazepam 2 MG/ML VIAL ONE (01:34)
--- NOTE | 2020-05-23 01:59 | EDPHYS ---
Physician Documentation [facility] Name: Srini Simpson Age: 34 yrs Sex: Male : 1985 Arrival Date: 05/22/2020 Time: 22:00 Bed 18 Private MD: ED Physician Fabrizio Marshall HPI: 05/22 22:20 This 34 yrs old Male presents to ER via EMS with complaints of Chest Pain. cp 22:20 The patient or guardian reports chest pain that is located primarily in the substernal cp area. 22:20 The pain does not radiate. Associated signs and symptoms: Pertinent negatives: cp abdominal pain, cough, diaphoresis, lower extremity pain, lower extremity swelling, shortness of breath, syncope, vomiting. The chest pain is described as sharp. Duration: The patient or guardian reports a single episode, that is still ongoing. EMS care prior to arrival includes: aspirin, nitroglycerin, x 1. Historical: - Allergies: 22:11 No Known Allergies; sg - PMHx: 22:11 Anxiety; Depression; Hypertension; Pyloric Stenosis; sg - PSHx: 22:11 None; sg - Immunization history:: Adult Immunizations unknown. - Social history:: Smoking status: unknown. ROS: 22:25 Constitutional: Negative for body aches, chills, fever, poor PO intake. cp 22:25 Eyes: Negative for injury, pain, redness, and discharge. cp 22:25 ENT: Negative for ear pain, sore throat, difficulty swallowing, difficulty handling secretions. 22:25 Cardiovascular: Positive for chest pain, Negative for edema. 22:25 Respiratory: Negative for cough, shortness of breath, wheezing. 22:25 Abdomen/GI: Negative for abdominal pain, vomiting, diarrhea, constipation. 22:25 Back: Negative for radiated pain. 22:25 Neuro: Negative for altered mental status, headache, weakness. 22:25 All other systems are negative. Exam: 22:10 ECG was reviewed by the Attending Physician. cp 22:30 Constitutional: The patient appears in no acute distress, alert, awake, cp non-diaphoretic, non-toxic, well developed, well nourished. 22:30 Head/Face: Normocephalic, atraumatic. cp 22:30 Eyes: Periorbital structures: appear normal, Conjunctiva: normal, no exudate, no injection, Sclera: no appreciated abnormality, Lids and lashes: appear normal, bilaterally. 22:30 ENT: External ear(s): are unremarkable, Nose: is normal, Mouth: Lips: moist, Oral mucosa: moist, Posterior pharynx: Airway: no evidence of obstruction, patent. 22:30 Neck: ROM/movement: is normal, is supple, without pain, no range of motions limitations. 22:30 Chest/axilla: Inspection: normal, Palpation: is normal, no crepitus, no tenderness. 22:30 Cardiovascular: Rate: tachycardic, Rhythm: regular, Edema: is not appreciated, JVD: is not appreciated. 22:30 Respiratory: the patient does not display signs of respiratory distress, Respirations: normal, no use of accessory muscles, no retractions, labored breathing, is not present, Breath sounds: are clear throughout, no decreased breath sounds, no stridor, no wheezing. 22:30 Abdomen/GI: Inspection: abdomen appears normal, Palpation: abdomen is soft and non-tender, in all quadrants. 22:30 Back: pain, is absent, ROM is normal. 22:30 Neuro: Orientation: to person, place \T\ time. Mentation: able to follow commands, slow to respond, Motor: moves all fours, strength is normal. 22:30 Special observations: smells of alcohol, appears intoxicated. Vital Signs: 22:09 BP 142 / 88; Pulse 149; Resp 18; Temp 97; Pulse Ox 100% on R/A; Pain 8/10; sg 23:00 BP 146 / 90; Pulse 118; Resp 20; Pulse Ox 100% on 2 lpm NC; sg 05/23 01:15 BP 165 / 95; Pulse 125; Resp 24; Pulse Ox 100% ; rr5 01:28 Pulse 105; rr5 01:57 BP 145 / 85; Pulse 102; Resp 19; Pulse Ox 99% on R/A; rr5 MDM: 05/22 22:11 Patient medically screened. cp 22:35 Differential diagnosis: abnormal EKG, acute myocardial infarction, pleurisy, pneumonia, cp pneumothorax, stable angina, thoracic aortic disection, unstable angina. 05/23 01:08 Data reviewed: vital signs, nurses notes, lab test result(s), EKG, radiologic studies, cp plain films. Test interpretation: by ED physician or midlevel provider: ECG, chest xray negative for infiltrates. Transition of care: After a detail discussion of the patient's case, care is transferred to Fabrizio Marshall MD. 01:50 ED course: Patient feeling better. Wants to go home now. Advised to follow up with PCP lamine in 2 to 3 days. Patient understood instruction.. 05/22 22:18 Order name: Basic Metabolic Panel; Complete Time: 23:16 cp 05/22 23:16 Interpretation: Normal except: GLUC 117; GFR 86; CA 8.3. cp 05/22 22:18 Order name: CBC with Diff; Complete Time: 23:16 cp 05/22 22:18 Order name: LFT's; Complete Time: 23:16 cp 05/22 23:45 Interpretation: Normal except: GLOB 3.6; A/G 1.0. cp 05/22 22:18 Order name: Magnesium; Complete Time: 23:16 cp 05/22 23:46 Interpretation: MG 2.2; Reviewed. cp 05/22 22:18 Order name: NT PRO-BNP; Complete Time: 23:16 cp 05/22 22:18 Order name: PT-INR; Complete Time: 23:16 cp 05/22 22:18 Order name: Troponin (emerg Dept Use Only); Complete Time: 23:16 cp 05/22 22:18 Order name: XRAY Chest (1 view) cp 05/22 22:18 Order name: ETOH Level; Complete Time: 23:16 cp 05/22 23:46 Interpretation: Abnormal: ETOH 225. cp 05/22 22:18 Order name: EKG; Complete Time: 22:19 cp 05/22 22:18 Order name: Cardiac monitoring; Complete Time: 22:26 cp 05/22 22:18 Order name: EKG - Nurse/Tech; Complete Time: 22:27 cp 05/22 22:18 Order name: IV Saline Lock; Complete Time: 22:27 cp 05/22 22:18 Order name: Labs collected and sent; Complete Time: 22:27 cp 05/22 22:18 Order name: O2 Per Protocol; Complete Time: 22:27 cp 05/22 22:18 Order name: O2 Sat Monitoring; Complete Time: 22:33 cp EC/12 22:10 Rate is 145 beats/min. Rhythm is regular. [place] interval is normal. QRS interval is cp normal. QT interval is normal. Interpreted by me. Reviewed by me. Administered Medications: Discontinued: NS 0.9% 1000 ml IV at 1 bolus Per protocol; 1000 mL bolus Discontinued: Banana Bag - (NS 0.9% 1000 ml, foLIC Acid 1 mg, Thiamine 100 mg, Multivitamin 1 amp) IV at 200 ml/hr once 22:19 CANCELLED (Physician Discretion): Ativan 1 mg IVP once cp 22:20 Drug: NS 0.9% 1000 ml Route: IV; Rate: 1 bolus; Site: left antecubital; 05/23 01:00 Follow up: Response: No adverse reaction; IV Status: Completed infusion; IV Intake: rr5 1000ml 05/22 22:30 Drug: morphine 2 mg Route: IVP; Site: left antecubital; 23:00 Drug: morphine 2 mg Route: IVP; Site: left antecubital; 05/23 00:30 Follow up: Response: No adverse reaction; RASS: Alert and Calm (0) rr5 01:05 Drug: NS 0.9% 1000 ml Route: IV; Rate: 1 bolus; Site: left antecubital; rr5 02:04 Follow up: Response: No adverse reaction; IV Status: Order to discontinue infusion; IV rr5 Intake: 500ml 01:10 Drug: Banana Bag - (NS 0.9% 1000 ml, foLIC Acid 1 mg, Thiamine 100 mg, Multivitamin 1 rr5 amp) Route: IV; Rate: 200 ml/hr; Site: left antecubital; 02:03 Follow up: Response: No adverse reaction; IV Status: Order to discontinue infusion; IV rr5 Intake: 100ml 01:10 Drug: Lopressor 5 mg Route: IVP; Site: left antecubital; rr5 02:02 Follow up: Response: No adverse reaction; Marked relief of symptoms rr5 01:25 Drug: Ativan 1 mg Route: IVP; Site: left antecubital; rr5 02:02 Follow up: Response: No adverse reaction; Marked relief of symptoms rr5 Disposition: 01:50 Co-signature as Attending Physician, Fabrizio Marshall MD. pkl Disposition: 05/23/20 01:53 Discharged to Home. Impression: Chest pain. Alcohol intoxication. - Condition is Stable. - Medication Reconciliation Form, Thank You Letter, Antibiotic Education, Prescription Opioid Use form. - Follow up: Private Physician; When: 2 - 3 days; Reason: Re-evaluation by your physician. - Problem is new. - Symptoms have improved. Signatures: Dispatcher [employer] EDHernesto Jackson, RN RN Fabrizio Boo MD MD pkl Jeevan Diaz PA PA cp Roque, Raymond RN RN rr5 Corrections: (The following items were deleted from the chart) 05/22 22:19 22:18 Ativan 1 mg IVP once ordered. cp cp 23:16 23:16 Normal except: GLUC 117; GFR 86. cp cp 05/23 02:44 01:53 05/23/2020 01:53 Discharged to Home. Impression: Chest pain. Alcohol sg intoxication. Condition is Stable. Forms are Medication Reconciliation Form, Thank You Letter, Antibiotic Education, Prescription Opioid Use. Follow up: Private Physician; When: 2 - 3 days; Reason: Re-evaluation by your physician. Problem is new. Symptoms have improved. pkl
--- NOTE | 2020-05-23 01:59 | ER ---
Nurse's Notes [facility] Name: Srini Simpson Age: 34 yrs Sex: Male : 1985 Arrival Date: 05/22/2020 Time: 22:00 Bed 18 Private MD: Diagnosis: Chest pain. Alcohol intoxication Presentation: 05/22 22:09 Chief complaint: EMS states: Sternal chest pain, non radiating, described as sharp and sg clinching, pt reports feeling anxious but having a history of anxiety and take klonopin but was not able to take his normal medications today, but was able to drink alcohol. Beer x2 cans, per EMS. Coronavirus screen: Client denies travel out of the [place] in the last 14 days. Ebola Screen: Patient negative for fever greater than or equal to 101.5 degrees Fahrenheit, and additional compatible Ebola Virus Disease symptoms Patient denies exposure to infectious person. Patient denies travel to an Ebola-affected area in the 21 days before illness onset. No symptoms or risks identified at this time. Initial Sepsis Screen: Does the patient meet any 2 criteria? HR > 90 bpm. Does the patient have a suspected source of infection? No. Patient's initial sepsis screen is negative. Risk Assessment: Do you want to hurt yourself or someone else? Patient reports no desire to harm self or others. Care prior to arrival: Medication(s) given: ASA, 81 mg, x 4, Nitroglycerin, 0.4 mg SL x 1, IV initiated. 20 GA, in the left antecubital area. 22:09 Acuity: CHRISTINE 3 sg 22:09 Method Of Arrival: EMS: [facility] sg Historical: - Allergies: 22:11 No Known Allergies; sg - PMHx: 22:11 Anxiety; Depression; Hypertension; Pyloric Stenosis; sg - PSHx: 22:11 None; sg - Immunization history:: Adult Immunizations unknown. - Social history:: Smoking status: unknown. Screenin:12 Abuse screen: Denies threats or abuse. Denies injuries from another. Nutritional sg screening: No deficits noted. Tuberculosis screening: No symptoms or risk factors identified. Never had TB. Fall Risk None identified. Assessment: 22:04 General: Appears in no apparent distress. comfortable, well groomed, well developed, sg well nourished, Behavior is cooperative, drowsy, Smells of alcohol. Pain: Complains of pain in anterior aspect of left upper chest and mid-sternal area Pain does not radiate. Quality of pain is described as aching. Neuro: Level of Consciousness is awake, alert, obeys commands, Oriented to person, place, time, Speech is normal, Facial symmetry appears normal. Cardiovascular: Heart tones S1 S2 present Chest pain is described as mild, is located in anterior chest wall. Respiratory: Airway is patent Respiratory effort is even, unlabored, Respiratory pattern is regular, symmetrical. GI: Abdomen is round non-distended, Reports tolerance of fluids, tolerance of food, pt tolerating PO water at this time. : No signs and/or symptoms were reported regarding the genitourinary system. EENT: No signs and/or symptoms were reported regarding the EENT system. Derm: Skin is pink, warm \T\ dry. Musculoskeletal: Circulation, motion, and sensation intact. Range of motion: intact in all extremities. 22:12 Reassessment: Patient appears in no apparent distress at this time. pt on the call carla maurer, reports feeling scared. verbal reassurance given, pt placed to NC x2 lpm per o2 protocol, pt reports pain continues. awaiting Dodie TORREZ for pt evaluation. 05/23 01:20 Reassessment: tremors getting worse as observed and patient verbalized I feel uneasy, rr5 ED provider informed with order made and carried out. 01:56 Reassessment: Patient appears in no apparent distress at this time. Patient is alert, rr5 oriented x 3, equal unlabored respirations, skin warm/dry/pink. I want to go home, I feel better now. ED provider aware Patient states feeling better. Patient states symptoms have improved. 01:58 Reassessment: Patient appears in no apparent distress at this time. discharge rr5 instruction given and explained without complaints made, awaiting for his ride home. Vital Signs: 05/22 22:09 BP 142 / 88; Pulse 149; Resp 18; Temp 97; Pulse Ox 100% on R/A; Pain 8/10; sg 23:00 BP 146 / 90; Pulse 118; Resp 20; Pulse Ox 100% on 2 lpm NC; sg 05/23 01:15 BP 165 / 95; Pulse 125; Resp 24; Pulse Ox 100% ; rr5 01:28 Pulse 105; rr5 01:57 BP 145 / 85; Pulse 102; Resp 19; Pulse Ox 99% on R/A; rr5 ED Course: 05/22 22:00 Patient arrived in ED. cf2 22:09 Arm band placed on. sg 22:10 Jeevan Diaz PA is PHCP. cp 22:10 Fabrizio Marshall MD is Attending Physician. cp 22:10 No provider procedures requiring assistance completed. Initial lab(s) drawn, by mi, sg sent to lab. Maintain EMS IV. Dressing intact. Site clean \T\ dry. Gauge \T\ site: 20 G LAC. Patient maintains SpO2 saturation greater than 95% on room air. 22:11 Triage completed. sg 22:14 Hernesto Ayala, RN is Primary Nurse. sg 22:34 XRAY Chest (1 view) In Process Unspecified. EDMS 05/23 01:00 Patient has correct armband on for positive identification. Placed in gown. Bed in low rr5 position. Call light in reach. Side rails up X2. court recording monitor on. Pulse ox on. NIBP on. 02:02 IV discontinued, intact, bleeding controlled, No redness/swelling at site. Pressure rr5 dressing applied. Administered Medications: Discontinued: NS 0.9% 1000 ml IV at 1 bolus Per protocol; 1000 mL bolus Discontinued: Banana Bag - (NS 0.9% 1000 ml, foLIC Acid 1 mg, Thiamine 100 mg, Multivitamin 1 amp) IV at 200 ml/hr once 05/22 22:19 CANCELLED (Physician Discretion): Ativan 1 mg IVP once 22:20 Drug: NS 0.9% 1000 ml Route: IV; Rate: 1 bolus; Site: left antecubital; 05/23 01:00 Follow up: Response: No adverse reaction; IV Status: Completed infusion; IV Intake: rr5 1000ml 05/22 22:30 Drug: morphine 2 mg Route: IVP; Site: left antecubital; 23:00 Drug: morphine 2 mg Route: IVP; Site: left antecubital; 05/23 00:30 Follow up: Response: No adverse reaction; RASS: Alert and Calm (0) rr5 01:05 Drug: NS 0.9% 1000 ml Route: IV; Rate: 1 bolus; Site: left antecubital; rr5 02:04 Follow up: Response: No adverse reaction; IV Status: Order to discontinue infusion; IV rr5 Intake: 500ml 01:10 Drug: Banana Bag - (NS 0.9% 1000 ml, foLIC Acid 1 mg, Thiamine 100 mg, Multivitamin 1 rr5 amp) Route: IV; Rate: 200 ml/hr; Site: left antecubital; 02:03 Follow up: Response: No adverse reaction; IV Status: Order to discontinue infusion; IV rr5 Intake: 100ml 01:10 Drug: Lopressor 5 mg Route: IVP; Site: left antecubital; rr5 02:02 Follow up: Response: No adverse reaction; Marked relief of symptoms rr5 01:25 Drug: Ativan 1 mg Route: IVP; Site: left antecubital; rr5 02:02 Follow up: Response: No adverse reaction; Marked relief of symptoms rr5 Intake: 01:00 IV: 1000ml; Total: 1000ml. rr5 02:03 IV: 100ml; Total: 1100ml. rr5 02:04 IV: 500ml; Total: 1600ml. rr5 Outcome: 01:53 Discharge ordered by . lamine 02:01 Discharged to home via wheelchair. rr5 02:01 Condition: stable 02:01 Discharge instructions given to patient, Instructed on discharge instructions, follow up and referral plans. Demonstrated understanding of instructions, follow-up care. 02:44 Patient left the ED. sg Signatures: Dispatcher [employer] Hernesto Wilkes RN RN sg Lam, Pin, MD MD pkl Page, Corey, PA PA cp Roque, Raymond, RN RN rr5 Rebeca Amador 2
[2020-05-23 04:54] VITALS: TEMP 97
[2020-05-23 04:59] VITALS: BP 145/85; O2SAT 99
--- NOTE | 2020-05-23 06:09 | EKG ---
Test Date: 2020-05-22 Test Time: 22:00:51 Shipping Assistant: SWG MEASUREMENT RESULTS: Intervals: Rate: 145 AR: 118 QRSD: 74 QT: 286 QTc: 444 Lewis: P: 49 AR: 118 QRS: 104 T: 19 INTERPRETIVE STATEMENTS: Sinus tachycardia Rightward axis Borderline ECG Compared to ECG 02/10/2020 16:42:20 Right-axis deviation now present Electronically Signed On 05-23-20 06:08:50 CASTING TRUCKER by Austin Martinez
--- NOTE | 2020-05-23 08:39 | RAD REPORT ---
EXAM DESCRIPTION: RAD - Chest Single View - 05/22/2020 10:33 pm CLINICAL HISTORY: CHEST PAIN Chest pain. COMPARISON: Chest Single View dated 03/30/2020; Chest Single View dated 12/26/2019; Chest Single View dated 10/18/2019; Chest Single View dated 10/11/2018 FINDINGS: Portable technique limits examination quality. The lungs are grossly clear. The heart is normal in size. No displaced fractures. IMPRESSION: No acute intrathoracic process suspected.
== END 2020-05-23 02:44 | disposition home or self-care (01) ==
LOC: ER 21:58
DX: R07.9 Chest pain, unspecified (principal); F10.129 Alcohol abuse with intoxication, unspecified
CPT/HCPCS: 36415; 71045; 80048; 80076; 80320; 83735; 83880; 84484; 85025; 85610; 93005; 96361; 96365; 96375; 99285; J2270; J3411; J7030

== ENCOUNTER 2020-05-30 15:50 | Emergency (ER) | payer SELFPAY ==
--- OUTSIDE RECORDS SUMMARY | 2020-05-30 16:05 | XMS REPORT | Clinical Summary ---
:1985 Author Organization [facility] Address [address] [place] [id number] Care Team Providers Name Role Phone Vijay [...] Psychiatry Nelly Fontanez M D 02/01/2020 after 05/30/2019 Immunizations Name Administration Dates Next Due FLUCELVAX [...] are i n the results section. after 05/30/2019 Results HIV Ag/Ab combination (01/29/2020 6:10 AM CDT) HIV Ag/Ab combination Non-reactive Non-reactive [facility] Specimen Serum Performing Organization Address City/[facility]/ZIP [facility] Phon e Number [facility] DEPARTMENT OF PATHOLOGY AND [address] [place] [address] [phone] [address] Hepatitis acute panel (01/29/2020 6:10 AM CDT) Pathologist Sig nature Hepatitis A IgM Non-reactive Non-reactive [facility] Hepatitis B core Non-reactive Non-reactive [facility] Hepatitis B surface Non-reactive Non-reactive [facility] Hepatitis C Ab Non-reactive Non-reactive [facility] Specimen Serum Performing Organization Address City/[facility] Phon e Number [facility] DEPARTMENT OF PATHOLOGY AND [address] [place] [address] [phone] [address] Magnesium level (01/29/2020 6:10 AM CDT) Pathologist Sig [facility] Magnesium 2.1 1.6 - 2.6 mg/dL [facility] L Specimen Blood Performing Organization Address City/[facility] Phon e Number [facility] DEPARTMENT OF PATHOLOGY AND [address] [place] [address] [phone] [address] Hemoglobin A1c (01/29/2020 6:10 AM CDT) Hemoglobin A1C 5.5 4.0 - 5.6 % [facility] Comment: HOSPITAL HbA1c cutoffs for [...] diabetes. Specimen Blood Performing Organization Address City/State/ZIP [facility] Phon e Number [facility] DEPARTMENT OF PATHOLOGY AND [address] [place] [address] [phone] [address] GGT (01/29/2020 6:10 AM CDT) Pathologist Sig nature GGT 141 (H) 0 - 59 U/L [facility] Specimen Blood Performing Organization Address City/[facility] Phon e Number [facility] DEPARTMENT OF PATHOLOGY AND [address], [place] [id number] [place] [address] Lipid panel (01/29/2020 6:10 AM CDT) Cholesterol 156 <200 mg/dL [facility] Triglycerides 107 <150 mg/dL [facility] HDL cholesterol 35 (L) >40 mg/dL [facility] LDL cholesterol 109 (H)Comment: <100 mg/dL [facility] Result obtained by SCIENTOLOG[employer] direct [facility] measurement Lipid panel [facility] interpretation Comment: SCIENTOLOGY Total Cholesterol (mg/dL) [...] (>=200 mg/dL) Specimen Blood Performing Organization Address City/[facility] Phon e Number [facility] DEPARTMENT OF PATHOLOGY AND [address], [place] [phone] [address] after 05/30/2019 Advance Directives For more information, please contact: [phone] Type Date Recorded Patient Cooker Syrup Explanati on Advance Directives, Living Will and Medical Power of 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
--- OUTSIDE RECORDS SUMMARY | 2020-05-30 16:05 | XMS REPORT | Clinical Summary ---
:1985 Author Organization [facility] Address [address] [place] [address] Care Team Providers Name Role Phone Vijay [...] Not on file Results Not on fileafter 05/30/2019 Advance Directives For more information, please contact: [phone] Code Status Date Activated Date Inactivated Comments Full Code 03/16/2017 7:21 PM 03/17/2017 7:28 PM This code status was determined by: Patient
--- OUTSIDE RECORDS SUMMARY | 2020-05-30 16:06 | XMS REPORT | Continuity of Care Document ---
:1985 Author Organization [facility] t Address [address] [place] [address] Dr. Jerome. [address] [place] [address] Care Team Providers Name Role Phone Maame Luke Primary Care Physician Ernie Hassan Attending Clinician Unavailable Ernie Hassan Attending Clinician Unavailable Ashlie BELTRÁN, M. Attending Clinician Lexy Thomas MD Attending Clinician Singer LAW Attending Clinician Fatimah BELTRÁN S Attending Clinician Margarita Marroquin Attending Clinician Doctor Unassigned, Name Attending Clinician Unavailable Clinic, Neurology Continuity Attending Clinician Unavailcydney Dos Santos DRAG OUT WORKER Attending Clinician Chantel DUNLAP R Attending Clinician Jeremiah RHODESP Attending Clinician Joseph GARCIA Attending Clinician Unavailable Ernie Hassan Admitting Clinician Unavailable ASHLIE Admitting Clinician Unavailable Joseph GARCIA Admitting Clinician Unavailable Problems Condition Condition Condition Status Onset Resolution Last Treating Co mments Source Name Details Category Date Date Treatment Clinician Date Alcohol Alcohol Disease Active [place] dependence dependence - Me thodi with with 00:00: st uncomplica uncomplica 00 luis luis withdrawal withdrawal Suicide Suicide Disease Active [place] attempt by attempt by 01-28 Me thodi alcohol alcohol 00:00: st poisoning poisoning 00 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 01-28 Me thodi pine use pine use 00:00: st disorder disorder 00 ЕЛЕНА ЕЛЕНА Disease Active [place] (generaliz (generaliz 01-28 Me thodi ed anxiety [...] Stop Date Source Natural father Heart attack [facility] Paternal grandfather Heart attack I [facility] Maternal aunt Depression [place] [facility] Maternal uncle Alcohol abuse [facility] Maternal uncle Depression [place] [facility] Maternal uncle Suicide Attempts [place] [facility] Natural mother Alcohol abuse [place] [facility] Social History Social Habit Start Date Stop Date Quantity Comments Source History of tobacco 1995-01-27 Current every Ori [facility] use 00:00:00 day smoker Alcohol Comment socially [facility] Sex Assigned At [facility] Cigarettes smoked 2020-01-28 2020-01-28 [facility] current (pack per 00:00:00 00:00:00 day) - Reported Cigarette 2020-01-28 2020-01-28 [place] Method ist pack-years 00:00:00 00:00:00 Tobacco use and 2020-01-28 2020-01-28 Never used [facility] exposure 00:00:00 00:00:00 Alcohol intake 2020-01-28 2020-01-28 Current drinker [facility] 00:00:00 00:00:00 of alcohol (finding) Smoking Status [...] smoking. metoprolol hypertensio 50mg Q.5D Take 1 [place] tartrate 01-31 n tablet (50 Meth herminio (LOPRESSOR) 00:00: 23:59 mg total) st 50 mg 00 :00 by mouth tablet BID at 0700, 1900 for 30 days .high blood pressure. busPIRone generalized 7.5mg Q.5D Take 1 [place] (BUSPAR) 01-31 anxiety tablet Metho di 7.5 MG 00:00: 23:59 disorder (7.[address] tablet 00 :00 total) by mouth 2 (two) times a day for 7 days .repeated episodes of anxiety. Immunizations Ordered Immunization Filled Immunization Date Status Commen ts Source Name Name FLUCELVAX QUAD PF 2020-01-28 Completed [place] 00:00:00 [facility] Vital Signs Vital Name Observation Time Observation Value Comments Source Body weight 2020-02-01 07:04:00 85.548 kg Anthony Almeida BMI 2020-02-01 07:04:00 29.54 kg/m2 [facility] Systolic blood 2020-02-01 06:09:39 138 mm[Hg] Asuncion Almeida pressure Diastolic blood 2020-02-01 06:09:39 78 mm[Hg] [place] [facility] pressure Heart rate 2020-02-01 06:09:39 62 /min [facility] Body temperature 2020-02-01 06:09:39 36.5 Siobhan [place] [facility] Respiratory rate 2020-02-01 06:09:39 18 /min [place] [facility] Oxygen saturation in 2020-02-01 06:09:39 98 /min [facility] Arterial blood by Pulse oximetry Body height 2020-01-28 14:00:00 170.2 cm Anthony Almeida Procedures Procedure Date / Time Performed Performing Clinician Sourc e HEMOGLOBIN A1C 2020-01-29 06:10:00 Amarjit Pelaezshahab Bell [facility] LIPID PANEL 2020-01-29 06:10:00 Amarjit Pelaezshahab Bell [facility] HEPATITIS ACUTE PANEL 2020-01-29 06:10:00 Lelo Pealez [place] [facility] GGT 2020-01-29 06:10:00 Lelo Pelaez [facility] MAGNESIUM LEVEL 2020-01-29 06:10:00 Amarjit Pelaeza Ray [facility] HIV AG/AB COMBINATION 2020-01-29 06:10:00 Amarjit Pelaeza Ray [place] [facility] Encounters Start End Encounter Admission Attending Care Care Encounter Source Date/Time Date/Time Type Type Clinicians Facility Department ID 2019-12-28 Inpatient [address] [facility] PSY [id number] [facility] 22:04:00 Ted Hassan [id number] 2020-01-28 2020-02-01 Inpatient [facility] [id number] 200 [place] 00:00:00 00:00:00 ROSI [address] 2019-12-28 2020-01-02 Inpatient [address] [facility] PSY [id number] [facility] 22:04:00 17:20:00 Ted Hassan 2019-11-09 2019-11-10 Emergency Martha [facility] [id number] 23:06:12 01:26:00 Clovis Huang [id number] [place] 4.2.7.2.686 [place] [id number] 2019-09-29 2019-09-29 Emergency Singer [facility] [id number] 09:39:50 11:47:00 Johan [place] [id number] [place] 4.2.7.2.686 [place] [id number] 2019-06-16 2019-06-16 Emergency Fatimah [facility] [id number] 07:08:27 08:57:00 Nadine Huang [id number] [place] 4.2.7.2.686 [place] [id number] 2019-06-15 2019-06-15 Emergency Shelley Shahid [facility] [id number] 11:30:00 13:30:00 Margarita [place] [id number] [place] 4.2.7.2.686 [place] [id number] 2019-06-15 2019-06-15 Orders Doctor MCGINNIS [id number] 00:00:00 00:00:00 Only Unassigned, KAY [id number] [place] [facility] 4.2.7.2.686 [id number] 2019-06-06 2019-06-06 Letter Clinic, [facility] [id number] 00:00:00 00:00:00 (Out) Neurology [facility]ALTH [id number] Continuity CLINICS 4.2.7.2.686 [id number] 2019 2019 Urgent [facility] [id number] 10:16:26 10:55:54 Care [facility] [id number] Surgical 4.2.7.2.686 Special [id number] teddy Khai Sal 2019 2019 Orders Doctor RAS [id number] 00:00:00 00:00:00 Only UnassignedKAY [id number] [place] [facility] 4.2.7.2.686 [id number] 2019-01-24 2019-01-[address] [facility] [id number] 15:49:15 22:27:00 Anitra Brownlee Sal [id number] [place] 4.2.7.2.686 [place] [id number] [id number] 2019-01-24 2019-01-24 Orders Doctor RAS [id number] 00:00:00 00:00:00 Only Unassigned, KAY [id number] [place] [address]686 [id number] [id number] 2018-12-21 2018-12-21 Emergency [place], [facility] [id number] 17:07:20 19:42:00 Dejah Sal [id number] [place] 4.2.7.2.686 [place] [id number] 2018-12-21 2018-12-21 Orders Doctor RAS [id number] 00:00:00 00:00:00 Only Unassigned, KAY [id number] [place] [address]686 [id number] [id number] Results Test Description Test Time Test Comments Results Result Comments Source Hepatitis acute panel 2020-01-29 09:42:25 Test Item Value Reference Range Interpretation Comme nts Hepatitis A IgM (test code = 62797-3) Non-reactive Non-reactive Hepatitis B core IgM (test code = 69133-1) Non-reactive Non-reactiv e Hepatitis B surface Ag (test code = 5195-3) Non-reactive Non-reacti ve Hepatitis C Ab (test code = 07553-8) Non-reactive Non-reactive [place] [facility]/Ab [id number] 09:42:25 Test Item Value Reference Range Interpretation Comments HIV Ag/Ab combination (test code Non-reactive Non-reactive = 5299) [place] MethodistHemoglobin [id number] 08:59:44 Test Item Value Reference Range Interpretation Comments Hemoglobin A1C (test 5.5 % 4-5.6 HbA1c c utoffs for code = 22492-2) diagnosing d iabetes:4.0% - 5.6% = normal 5.7% - 6.4% = increase d risk for diabetes (prediabetes)9> =6.5% = uyewukin4Fdkjm for glycemic contro l (ADA 2016)< 7.0% Ta rget for non faviola lts with diabetes. More or less stringent targe ts may be appropriate for individual mary ents. <7.5% Target for Children and ad olescents with type 1 lara betes. [facility] MethodistLipid [id number] 08:18:33 Test Item Value Reference Interpretation Comments [...] (mg/dL) interpretation (test < 200 code = 70285-2) Desirable 200-239 Borderline -high >=240 Hi gh [...] mg/dL) Lab Interpretation Abnormal (test code = 38422-8) [place] [id number] 08:18:33 Test Item Value Reference Range Interpretation Comments GGT (test code = 2324-2) 141 U/L 0-59 H Lab Interpretation (test code = Abnormal 76986-5) Anthony AlmeidaMagnesium [id number] 08:18:33 Test Item Value Reference Range Interpretation Comments Magnesium (test code = 75469-0) 2.1 mg/dL 1.6-2.6 [place] MethodistRPR [id number] 16:27:39 Test Item Value Reference Range Interpretation Comments RPR Qual (test code = RPR Qual) Non-Reactive Non-Reactive Reactive Control (test code = Reactive Reactive Control) Weak Reactive Control (test Weak Reactive code = Weak Reactive Control) Non-Reactive Control (test code Non-Reactive = Non-Reactive Control) Lot # (test code = Lot #) [id number] N Expiration Dt (test code = 02-07-2021 N Expiration Dt) Lipid [id number] 07:26:04 Test Item Value Reference Range Interpretation [...] LDL/HDL Ratio=L DL Calc/HDL Chol Thyroid Stimulating [id number] 07:26:04 Test Item Value Reference Range Interpretation Comments TSH (test code = TSH) 1.757 mcIU/mL 0.550-4.780 Hemoglobin [id number] 07:26:03 Test Item Value Reference Range Interpretation Comments Hemoglobin A1c (test code 4.9 % 4.0-5.8 Di abetic >=6.5 = Hemoglobin A1c) %Prediabet es 5.7-6.4 %Normal <5.7 % [facility], [facility], [id number] 14:45:00FINAL REPORT PROCEDURE: Rest/Stress MYOCARDIAL PERFUSION SPECT with treadm ill\XA9\ CPT CODE: 72731 INDICATION: Chest pain HISTORY: Cardiac risk factors: [...] 5. Normal extracardiactracer distribution. 6. No previous [facility] study for comparison. NONINVASIVE RISK STRATIFICATION: The above findings are considered low risk (<1% annual mortality rate) based on the following criterion:- Normal or small myocardial perfusion defect at rest or with stress(JACC. 2012;59(9):857-81.) Signed: Albert Ruvalcaba MDReport Verified Date/Time: 03/17/2017 14:45:11 Reading Location: [address] Reading Room HEMOGLOBIN [id number] 08:29:00 Test Item Value Reference Range Interpretation Comments HEMOGLOBIN A1C (BEAKER) (test code = 5.5 % 4.3-6.1 368) CREATINE KINASE (CK), TOTAL AND [id number] 02:45:00 Test Item Value Reference Range Interpretation Comments CREATINE KINASE TOTAL (BEAKER) 34 U/L 29-200 (test code = 380) CREATINE KINASE-MB (BEAKER) (test 0.4 ng/mL 0.0-6.6 code = 750) CREATINE KINASE-MB INDEX (BEAKER) 1.2 % (test code = 395) CK-MB Reference Range:<6.7 Normal6.7-10.0 Borderline>10.0 AbnormalTROPONIN [id number] 02:45:00 Test Item Value Reference Range Interpretation [...] and persistent tachyarrhythmia.RAD, CHEST, 1 VIEW, NON [id number] 20:40:00Reason for exam:->chest painShould this be performed at the bedside?->YesFINAL REPORT EXAMINATION: AP PORTABLE CHEST RADIOGRAPH CLINICAL INDICATION:Chest pain IMPRESSION: Compared with 04/30/2016. No evidence of focal lung consolidation, pulmonary edema or pleural effusion. The heart size is normal. Mediastinal contours are sharp. No evidence of an acute osseous abnormality or pneumothorax. Signed: Santhosh Castle MDReport Verified Date/Time: 03/16/2017 20:40:21 Reading Location: [address] Reading Room B-TYPE NATRIURETIC FACTOR (BNP)2017-03-16 20:30:00 Test Item Value Reference Range Interpretation Comments B-TYPE NATRIURETIC PEPTIDE (BEAKER) < pg/mL 0-100 (test code = 700) COMPREHENSIVE METABOLIC [id number] 20:30:00 Test Item Value Reference Range Interpretation [...] ATED GFR. CREATINE KINASE (CK), TOTAL AND [id number] 20:28:00 Test Item Value Reference Range Interpretation Comments CREATINE KINASE TOTAL (BEAKER) 50 U/L 29-200 (test code = 380) CREATINE KINASE-MB (BEAKER) (test 0.5 ng/mL 0.0-6.6 code = 750) CREATINE KINASE-MB INDEX (BEAKER) 1.0 % (test code = 395) CK-MB Reference Range:<6.7 Normal6.7-10.0 Borderline>10.0 AbnormalTROPONIN [id number] 20:28:00 Test Item Value Reference Range Interpretation [...] failure, acidosis, acute neurological disease, and persistent tachyarrhythmia.[id number] 20:21:00 Test Item Value Reference Range Interpretation Comments MAGNESIUM (BEAKER) 2.2 mg/dL 1.6-2.6 Specimen slightly (test code = 627) hemolyzed [id number] 20:21:00 Test Item Value Reference Range Interpretation Comments PHOSPHORUS (BEAKER) 3.9 mg/dL 2.3-4.7 Specimen slightly (test code = 604) hemolyzed LIPID [id number] 20:21:00 Test Item Value Reference Range Interpretation [...] Borderline 130-159 High 160-189 Very High >=190PROTHROMBIN TIME/[id number] 20:07:00 Test Item Value Reference Range Interpretation Comments PROTIME (BEAKER) (test code = 13.0 seconds 11.7-14.7 759) INR (BEAKER) (test code = 370) 1.0 <=5.9 RECOMMENDED COUMADIN/WARFARIN INR THERAPY RANGESSTANDARD DOSE: 2.0 - 3.0 Includes: PROPHYLAXIS forvenous thrombosis, systemic embolization; TREATMENT for venous thrombosis and/or pulmonary embolus.HIGH RISK: Target INR is 2.5-3.5 for patients with mechanical heart valves.[id number] 20:07:00 Test Item Value Reference Range Interpretation Comments PARTIAL THROMBOPLASTIN TIME 26.9 seconds 22.5-36.0 (BEAKER) (test code = 760) CBC W/PLT COUNT & AUTO [id number] 19:57:00 Test Item Value Reference Range Interpretation [...] % 0-1 PERCENT (BEAKER) (test code = 1829)
[2020-05-30 16:42] LABS: Absolute Lymphocytes (CBC) 2.7 K/uL (0.7-4.9); Basophils % 1.3 % (0-1.3); Hematocrit 42.8 % (39.6-49.0); Lymphocytes % 31.9 % (15.3-44.8); MPV 7.9 fL (7.6-11.3); RBC Red Blood Cell Count 4.78 M/uL (4.33-5.43)
[2020-05-30 16:57] LABS: ALT/SGPT 52 U/L (12-78); AST/SGOT 28 U/L (15-37); Albumin 3.8 g/dL (3.4-5.0); Alkaline Phosphatase 63 U/L (45-117); BUN Blood Urea Nitrogen 6 mg/dL (7-18); Bicarbonate 24 mmol/L (21-32); Bilirubin Direct < 0.1 mg/dL (0-0.2); Bilirubin Total 0.2 mg/dL (0.2-1.0); Glucose Level 101 mg/dL (74-106); Lipase 121 U/L (73-393); Potassium 3.8 mmol/L (3.5-5.1); Protein, Total 7.6 g/dL (6.4-8.2); Sodium Level 140 mmol/L (136-145)
[2020-05-30] MEDS ORDERED: KETOROLAC 30 MG/ML INJ ONE (16:58)
[2020-05-30] MEDS ORDERED: NA CHLORIDE 0.9% 1,000 ML ONE (16:58)
[2020-05-30] MEDS ORDERED: ONDANSETRON 4 MG/2 ML VIAL ONE (16:58)
[2020-05-30] MEDS ORDERED: LORazepam 2 MG/ML VIAL ONE (17:48)
--- NOTE | 2020-05-30 17:52 | RAD REPORT ---
EXAM DESCRIPTION: CT - Stone Protocol - 05/30/2020 5:45 pm CLINICAL HISTORY: Flank pain. right ;Abd pain COMPARISON: Abdomen Pelvis W Contrast dated 01/30/2016 TECHNIQUE: Axial images were obtained without oral or IV contrast. Lack of contrast limits solid org an and vascular assessment. The bbxaj-pd-dask spans the entirety of the system partially obscuring uppermost abdomen and lung bases. Coronal reformatted images were obtained and reviewed. All CT scans are performed using dose optimization technique as appropriate and may include automated exposure control or mA/KV adjustment according to patient size. FINDINGS: The lower lung hernandez are clear. Imaged portions of the liver and spleen show no suspicious findings on non-contrast imaging. The panc reas and adrenal glands are normal. No pathologic lymphadenopathy in the abdomen or pelvis. No urinary tract stones or obstructive uropathy. No bowel obstruction, free air, free fluid or abscess. Normal appendix noted. No significant bony abnormality. IMPRESSION: No urinary tract stones or obstructive uropathy.
[2020-05-30 18:02] LABS: Urine Blood NEGATIVE (NEG); Urine Glucose NEGATIVE (NEG); Urine Protein 1+ (NEG); Urine Specific Gravity 1.015 (1.005-1.030); Urine pH >8.5 (5.0-7.0)
[2020-05-30 18:18] LABS: Urine Bacteria <20 /HPF (NONE SEEN); Urine RBC NONE SEEN /HPF (NONE SEEN)
--- NOTE | 2020-05-30 19:05 | RAD REPORT ---
EXAM DESCRIPTION: US - Abdomen Exam Limited - 05/30/2020 6:56 pm CLINICAL HISTORY: ABD PAIN COMPARISON: ABDOMINAL EXAM LIMITED dated 12/26/2013; Stone Protocol dated 05/30/2020 FINDINGS: The gallbladder demonstrates no gallstones. No pericholecystic fluid or gallbladder wall t hickening. The common bile duct is normal measuring 3 mm. The liver demonstrates no findings of intrahepatic biliary dilatation. IMPRESSION: Unremarkable examination.
[2020-05-30] MEDS ORDERED: MORPHINE 4 MG/ML SYR ONE (19:12)
--- NOTE | 2020-05-30 19:55 | ER ---
Nurse's Notes [facility] Name: Srini Simpson Age: 35 yrs Sex: Male : 1985 Arrival Date: 05/30/2020 Time: 15:56 Bed 16 Private MD: Diagnosis: Unspecified abdominal pain;Other chest pain Presentation: 05/30 16:03 Chief complaint: EMS states: ABD pain that started about 30 minutes ago. Coronavirus vg1 screen: Client denies travel out of the [place] in the last 14 days. Ebola Screen: Patient negative for fever greater than or equal to 101.5 degrees Fahrenheit, and additional compatible Ebola Virus Disease symptoms. Initial Sepsis Screen: Does the patient meet any 2 criteria? No. Patient's initial sepsis screen is negative. Does the patient have a suspected source of infection? No. Patient's initial sepsis screen is negative. Risk Assessment: Do you want to hurt yourself or someone else? Patient reports no desire to harm self or others. Onset of symptoms was May 30, 2020. 16:03 Method Of Arrival: EMS vg1 16:03 Acuity: CHRISTINE 3 vg1 Historical: - Allergies: 16:03 No Known Allergies; vg1 - Home Meds: 16:03 Effexor Oral 75 mg nightly [Active]; Effexor XR 150 mg Oral cp24 every morning vg1 [Active]; Effexor XR 75 mg Oral cp24 1 cap every morning [Active]; hydroxyzine HCl 50 mg Oral tab 1 tab 4 times per day for Anxiety [Active]; Klonopin 1 mg Oral tab 1 tab 2 times per day [Active]; metoprolol tartrate 50 mg Oral tab 1 tab 2 times per day [Active]; trazodone 50 mg Oral tab 1 tab for Major Depressive Disorder [Active]; Valium 10 mg Oral tab 1 tab 2 times per day [Active]; - PMHx: 16:03 Anxiety; Depression; Pyloric Stenosis; Hypertension; vg1 - Immunization history:: Adult Immunizations up to date, Flu vaccine is up to date. - Social history:: Smoking status: Patient reports the use of cigarette tobacco products, smokes one-half pack cigarettes per day. Screenin:03 Abuse screen: Denies threats or abuse. Nutritional screening: No deficits noted. vg1 Tuberculosis screening: No symptoms or risk factors identified. Fall Risk No fall in past 12 months (0 pts). No secondary diagnosis (0 pts). IV access (20 points). Ambulatory Aid- None/Bed Rest/Nurse Assist (0 pts). Gait- Normal/Bed Rest/Wheelchair (0 pts) Mental Status- Oriented to own ability (0 pts). Total Martinez Fall Scale indicates No Risk (0-24 pts). Assessment: 16:00 General: Appears in no apparent distress. uncomfortable, Behavior is cooperative, vg1 anxious. Pain: Complains of pain in right lower quadrant Pain currently is 7 out of 10 on a pain scale. Quality of pain is described as stabbing, Pain began 30 min ago. Noted to be grimacing, guarding. Neuro: Level of Consciousness is awake, alert, obeys commands, Oriented to person, place, time, situation. Cardiovascular: Patient's skin is warm and dry. Respiratory: Airway is patent Respiratory effort is even, unlabored, Respiratory pattern is regular, symmetrical. GI: Bowel sounds present X 4 quads. Abd is soft X 4 quads Abdomen is tender to palpation in right lower quadrant. GI: Reports nausea. : No signs and/or symptoms were reported regarding the genitourinary system. EENT: No signs and/or symptoms were reported regarding the EENT system. Derm: Skin is intact, is healthy with good turgor. Musculoskeletal: Circulation, motion, and sensation intact. 18:40 Reassessment: Patient c/o pain. Notified provider. vg1 19:53 Reassessment: Patient appears in no apparent distress at this time. Patient is alert, vg1 oriented x 3, equal unlabored respirations, skin warm/dry/pink. Patient states feeling better. 19:58 Reassessment: PO Challenge complete; tolerated well. vg1 20:10 Reassessment: Patient appears in no apparent distress at this time. Patient is alert, rr5 oriented x 3, equal unlabored respirations, skin warm/dry/pink. discharge instruction given and explained without complaints made. Vital Signs: 16:01 BP 154 / 11; Pulse 86; Resp 18; Temp 97.7; Pulse Ox 99% on R/A; Weight 83.91 kg; Height vg1 5 ft. 7 in. (170.18 cm); Pain 7/10; 17:00 BP 151 / 94; Pulse 76; Resp 20; Pulse Ox 98% on R/A; vg1 19:00 BP 166 / 75; Pulse 70; Resp 16; Pulse Ox 97% on R/A; vg1 20:10 BP 160 / 80; Pulse 75; Resp 17; Pulse Ox 99% ; rr5 16:01 Body Mass Index 28.97 (83.91 kg, 170.18 cm) vg1 ED Course: 15:56 Patient arrived in ED. vg1 15:57 Serenity Lopez, RN is Primary Nurse. vg1 15:57 Jeevan Diaz PA is PHCP. cp 15:57 Yusuf Kirk MD is Attending Physician. cp 16:04 Triage completed. vg1 16:04 Patient has correct armband on for positive identification. Bed in low position. Call [facility] light in reach. 16:05 Arm band placed on. vg1 16:15 Maintain EMS IV. Dressing intact. Good blood return noted. Site clean \T\ dry. Gauge \T\ bisi 3 site: 18-gauge in LAC. 16:15 Patient maintains SpO2 saturation greater than 95% on room air. jp3 16:28 Side rails up X 1. Warm blanket given. Verbal reassurance given. Pulse ox on. NIBP on. jp3 16:28 Initial lab(s) drawn, by me, sent to lab. jp3 17:[address] via wheelchair. vg1 17:46 CT Stone Protocol In Process Unspecified. EDMS 18:48 US at bedside. vg1 18:56 US Abdomen Limited: RUQ In Process Unspecified. EDMS 19:19 Repeat lab(s) drawn. by me, sent to lab. EKG done, by ED staff, reviewed by Jeevan TORREZ. 20:11 No provider procedures requiring assistance completed. IV discontinued, intact, rr5 bleeding controlled, No redness/swelling at site. Pressure dressing applied. Administered Medications: 16:50 Drug: TORadol - Ketorolac 15 mg Route: IVP; Site: left antecubital; vg1 18:40 Follow up: Response: Pain is unchanged, physician notified vg1 16:50 Drug: Zofran (Ondansetron) 4 mg Route: IVP; Site: left antecubital; vg1 18:40 Follow up: Response: Nausea is decreased vg1 16:50 Drug: NS 0.9% 1000 ml Route: IV; Rate: 1 bolus; Site: left antecubital; vg1 18:40 Follow up: IV Status: Completed infusion; IV Intake: 1000ml vg1 17:43 Drug: Ativan 0.5 mg Route: IVP; Site: left antecubital; vg1 20:00 Follow up: Response: No adverse reaction vg1 19:21 Drug: morphine 4 mg {Note: rass1.} Route: IVP; Site: left antecubital; vg1 19:59 Follow up: Response: No adverse reaction; Pain is decreased vg1 Intake: 18:40 IV: 1000ml; Total: 1000ml. vg1 Outcome: 19:54 Discharge ordered by MD. stanislaw 20:11 Discharged to home ambulatory. rr5 20:11 Condition: stable 20:11 Discharge instructions given to patient, Instructed on discharge instructions, follow up and referral plans. medication usage, Demonstrated understanding of instructions, follow-up care, medications, Prescriptions given X 2. 20:17 Patient left the ED. vg1 Signatures: Dispatcher [employer] EDMS Jeevan Diaz PA PA cp Pisarski, Jacob 3 Jethro Moore, RN RN rr5 Serenity Lopez RN RN vg1
--- NOTE | 2020-05-30 19:55 | EDPHYS ---
Physician Documentation [facility] Name: Srini Simpson Age: 35 yrs Sex: Male : 1985 Arrival Date: 05/30/2020 Time: 15:56 Bed 16 Private MD: ED Physician Yusuf Kirk HPI: 05/30 16:20 This 35 yrs old Male presents to ER via EMS with complaints of Abdominal Pain.cp 16:20 The patient presents with abdominal pain right mid abdomen. Onset: The symptoms/episode cp began/occurred today. 16:20 The symptoms do not radiate. cp 16:20 Associated signs and symptoms: Pertinent negatives: nausea and vomiting, chest pain, cp constipation, diarrhea, dysuria, fever, headache, palpitations, shortness of breath, testicular pain. The symptoms are described as constant. Historical: - Allergies: 16:03 No Known Allergies; vg1 - Home Meds: 16:03 Effexor Oral 75 mg nightly [Active]; Effexor XR 150 mg Oral cp24 every morning vg1 [Active]; Effexor XR 75 mg Oral cp24 1 cap every morning [Active]; hydroxyzine HCl 50 mg Oral tab 1 tab 4 times per day for Anxiety [Active]; Klonopin 1 mg Oral tab 1 tab 2 times per day [Active]; metoprolol tartrate 50 mg Oral tab 1 tab 2 times per day [Active]; trazodone 50 mg Oral tab 1 tab for Major Depressive Disorder [Active]; Valium 10 mg Oral tab 1 tab 2 times per day [Active]; - PMHx: 16:03 Anxiety; Depression; Pyloric Stenosis; Hypertension; vg1 - Immunization history:: Adult Immunizations up to date, Flu vaccine is up to date. - Social history:: Smoking status: Patient reports the use of cigarette tobacco products, smokes one-half pack cigarettes per day. ROS: 16:25 Abdomen/GI: Positive for abdominal pain, of the right mid abdomen. cp 16:25 Eyes: Negative for injury, pain, redness, and discharge. cp 16:25 Constitutional: Negative for body aches, chills, fever, poor PO intake. 16:25 Neck: Negative for pain with movement, pain at rest, stiffness. 16:25 Cardiovascular: Negative for chest pain, edema, palpitations. 16:25 Respiratory: Negative for cough, shortness of breath, wheezing. 16:25 Back: Negative for radiated pain. 16:25 : Negative for urinary symptoms, difficulty urinating, testicular pain 16:25 Neuro: Negative for altered mental status, headache, weakness. 16:25 All other systems are negative. Exam: 16:30 Constitutional: The patient appears in no acute distress, alert, awake, cp non-diaphoretic, non-toxic, well developed, well nourished. 16:30 Head/Face: Normocephalic, atraumatic. cp 16:30 Eyes: Periorbital structures: appear normal, Conjunctiva: normal, no exudate, no injection, Sclera: no appreciated abnormality, Lids and lashes: appear normal, bilaterally. 16:30 ENT: External ear(s): are unremarkable, Nose: is normal, Mouth: Lips: moist, Oral mucosa: moist, Posterior pharynx: Airway: no evidence of obstruction, patent. 16:30 Chest/axilla: Inspection: normal, Palpation: is normal, no crepitus, no tenderness. 16:30 Cardiovascular: Rate: normal, Rhythm: regular. 16:30 Respiratory: the patient does not display signs of respiratory distress, Respirations: normal, no use of accessory muscles, labored breathing, is not present, Breath sounds: are clear throughout, no decreased breath sounds, no wheezing. 16:30 Abdomen/GI: Inspection: abdomen appears normal, Bowel sounds: active, all quadrants, Palpation: soft, in all quadrants, moderate abdominal tenderness, in the right mid abdomen, rebound tenderness, is not appreciated, involuntary guarding, is not appreciated. 16:30 Back: CVA tenderness, is absent. 19:20 ECG was reviewed by the Attending Physician. cp Vital Signs: 16:01 BP 154 / 11; Pulse 86; Resp 18; Temp 97.7; Pulse Ox 99% on R/A; Weight 83.91 kg; Height vg1 5 ft. 7 in. (170.18 cm); Pain 7/10; 17:00 BP 151 / 94; Pulse 76; Resp 20; Pulse Ox 98% on R/A; vg1 19:00 BP 166 / 75; Pulse 70; Resp 16; Pulse Ox 97% on R/A; vg1 20:10 BP 160 / 80; Pulse 75; Resp 17; Pulse Ox 99% ; rr5 16:01 Body Mass Index 28.97 (83.91 kg, 170.18 cm) vg1 MDM: 16:05 Patient medically screened. cp 17:00 Differential diagnosis: appendicitis, cholecystitis, Cholelithiasis, gastritis, cp non-specific abd pain, pancreatitis, Pyelonephritis, Ureterolithiasis, urinary tract infection. 19:53 Data reviewed: vital signs, nurses notes, lab test result(s), radiologic studies, CT cp scan, ultrasound. 19:53 Counseling: I had a detailed discussion with the patient and/or guardian regarding: the cp historical points, exam findings, and any diagnostic results supporting the discharge/admit diagnosis, lab results, radiology results, to return to the emergency department if symptoms worsen or persist or if there are any questions or concerns that arise at home. Response to treatment: the patient's symptoms have markedly improved after treatment, and as a result, I will discharge patient. Special discussion: Based on the patient's Hx, exam, and Dx evaluation, there is no indication for emergent surgery or inpatient Tx. It is understood by the patient/guardian that if the Sx's persist or worsen they need to return immediately for re-evaluation. 05/30 16:10 Order name: Urine Microscopic Only; Complete Time: 19:16 cp 05/30 16:10 Order name: Basic Metabolic Panel; Complete Time: 17:15 cp 05/30 16:10 Order name: CBC with Diff; Complete Time: 17:15 cp 05/30 16:10 Order name: Hepatic Function; Complete Time: 17:15 cp 05/30 16:10 Order name: Lipase; Complete Time: 17:15 cp 05/30 17:50 Order name: Urine Dipstick--Ancillary (enter results); Complete Time: 18:07 sp 05/30 17:16 Order name: CT Stone Protocol; Complete Time: 18:07 cp 05/30 18:09 Order name: US Abdomen Limited: RUQ; Complete Time: 19:16 cp 05/30 18:42 Order name: Troponin I cp 05/30 16:10 Order name: Urine Dipstick-Ancillary (obtain specimen); Complete Time: 17:44 cp 05/30 16:10 Order name: IV Saline Lock; Complete Time: 16:18 cp 05/30 16:10 Order name: Labs collected and sent; Complete Time: 16:29 cp 05/30 18:42 Order name: EKG; Complete Time: 18:42 cp 05/30 18:42 Order name: EKG - Nurse/Tech; Complete Time: 19:21 cp 05/30 19:42 Order name: PO challenge; Complete Time: 19:58 cp EC:20 Rate is 70 beats/min. Rhythm is regular. [place] interval is normal. QRS interval is normal. cp QT interval is normal. Interpreted by me. Reviewed by me. Administered Medications: 16:50 Drug: TORadol - Ketorolac 15 mg Route: IVP; Site: left antecubital; vg1 18:40 Follow up: Response: Pain is unchanged, physician notified vg1 16:50 Drug: Zofran (Ondansetron) 4 mg Route: IVP; Site: left antecubital; vg1 18:40 Follow up: Response: Nausea is decreased vg1 16:50 Drug: NS 0.9% 1000 ml Route: IV; Rate: 1 bolus; Site: left antecubital; vg1 18:40 Follow up: IV Status: Completed infusion; IV Intake: 1000ml vg1 17:43 Drug: Ativan 0.5 mg Route: IVP; Site: left antecubital; vg1 20:00 Follow up: Response: No adverse reaction vg1 19:21 Drug: morphine 4 mg {Note: rass1.} Route: IVP; Site: left antecubital; vg1 19:59 Follow up: Response: No adverse reaction; Pain is decreased vg1 Disposition: 05/30/20 19:54 Discharged to Home. Impression: Unspecified abdominal pain, Other chest pain. - Condition is Stable. - Discharge Instructions: Abdominal Pain, Adult, Nonspecific Chest Pain. - Prescriptions for Bentyl 20 mg Oral Tablet - take 2 tablet by ORAL route every 6 hours As needed; 40 tablet. Zofran 4 mg Oral Tablet - take 1 tablet by ORAL route every 12 hours As needed; 20 tablet. - Medication Reconciliation Form, Thank You Letter, Antibiotic Education, Prescription Opioid Use form. - Follow up: Private Physician; When: 1 - 2 days; Reason: Recheck today's complaints. - Problem is new. - Symptoms have improved. Addendum: 06/02/2020 10:06 Co-signature as Attending Physician, Yusuf Kirk MD. r n Signatures: Dispatcher [employer] EDMS Yusuf Kirk MD MD rn Page, Corey, PA PA cp Jethro Moore RN RN rr5 Serenity Lopez RN RN vg1 Corrections: (The following items were deleted from the chart) 05/30 20:12 19:54 05/30/2020 19:54 Discharged to Home. Impression: Unspecified abdominal pain; rr5 Other chest pain. Condition is Stable. Forms are Medication Reconciliation Form, Thank You Letter, Antibiotic Education, Prescription Opioid Use. Follow up: Private Physician; When: 1 - 2 days; Reason: Recheck today's complaints. Problem is new. Symptoms have improved. cp 20:17 20:12 05/30/2020 19:54 Discharged to Home. Impression: Unspecified abdominal pain; vg1 Other chest pain. Condition is Stable. Discharge Instructions: Abdominal Pain, Adult, Nonspecific Chest Pain. Prescriptions for Bentyl 20 mg Oral Tablet - take 2 tablet by ORAL route every 6 hours As needed; 40 tablet, Zofran 4 mg Oral Tablet - take 1 tablet by ORAL route every 12 hours As needed; 20 tablet. and Forms are Medication Reconciliation Form, Thank You Letter, Antibiotic Education, Prescription Opioid Use. Follow up: Private Physician; When: 1 - 2 days; Reason: Recheck today's complaints. Problem is new. Symptoms have improved. rr5
[2020-05-30 20:22] VITALS: TEMP 97.7
[2020-05-30 20:26] VITALS: BP 160/80; O2SAT 99
== END 2020-05-30 20:17 | disposition home or self-care (01) ==
LOC: ER 15:50
DX: R10.9 Unspecified abdominal pain (principal); R07.89 Other chest pain; F41.8 Other specified anxiety disorders; I10 Essential (primary) hypertension
CPT/HCPCS: 36415; 74176; 76377; 76705; 80048; 80076; 81003; 81015; 83690; 84484; 85025; 96361; 96374; 96375; 99285; J2405; J7030

== ENCOUNTER 2020-06-14 23:47 | Emergency (ER) | payer SELFPAY ==
--- OUTSIDE RECORDS SUMMARY | 2020-06-14 23:49 | XMS REPORT | Clinical Summary ---
:1985 Author Organization [facility] Address [address] [place] [id number] Care Team Providers Name Role Phone Vijay [...] Psychiatry Nelly Fontanez M D 02/01/2020 after 06/14/2019 Immunizations Name Administration Dates Next Due FLUCELVAX [...] are i n the results section. after 06/14/2019 Results HIV Ag/Ab combination (01/29/2020 6:10 AM CDT) HIV Ag/Ab combination Non-reactive Non-reactive [facility] Specimen Serum Performing Organization Address City/[facility]/ZIP [facility] Phon e Number [facility] DEPARTMENT OF PATHOLOGY AND [address] [place] [address] [phone] [address] Hepatitis acute panel (01/29/2020 6:10 AM CDT) Pathologist Sig nature Hepatitis A IgM Non-reactive Non-reactive [facility] Hepatitis B core Non-reactive Non-reactive [facility] Hepatitis B surface Non-reactive Non-reactive [facility] Hepatitis C Ab Non-reactive Non-reactive [facility] Specimen Serum Performing Organization Address City/[facility] Phon e Number [facility] DEPARTMENT OF PATHOLOGY AND [address] [place] [address] [phone] [address] Magnesium level (01/29/2020 6:10 AM CDT) Pathologist Sig [facility] Magnesium 2.1 1.6 - 2.6 mg/dL [facility] L Specimen Blood Performing Organization Address City/[facility] Phon e Number [facility] DEPARTMENT OF PATHOLOGY AND [address] [place] [address] [phone] [address] Hemoglobin A1c (01/29/2020 6:10 AM CDT) Hemoglobin A1C 5.5 4.0 - 5.6 % [facility] Comment: HOSPITAL HbA1c cutoffs for diagnosing diabetes: [...] diabetes. Specimen Blood Performing Organization Address City/State/ZIP [facility] Phon e Number [facility] DEPARTMENT OF PATHOLOGY AND [address] [place] [address] [phone] [address] GGT (01/29/2020 6:10 AM CDT) Pathologist Sig nature GGT 141 (H) 0 - 59 U/L [facility] Specimen Blood Performing Organization Address City/[facility] Phon e Number [facility] DEPARTMENT OF PATHOLOGY AND [address], [place] [phone] [id number] [place] [address] Lipid panel (01/29/2020 6:10 AM CDT) Cholesterol 156 <200 mg/dL [facility] Triglycerides 107 <150 mg/dL [facility] HDL cholesterol 35 (L) >40 mg/dL [facility] LDL cholesterol 109 (H)Comment: <100 mg/dL [facility] Result obtained by [facility] direct [facility] measurement Lipid panel 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
--- OUTSIDE RECORDS SUMMARY | 2020-06-14 23:49 | XMS REPORT | Clinical Summary ---
:1985 Author Organization [facility] Address [address] [place] [address] Care Team Providers Name Role Phone Vijay [...] Not on file Results Not on fileafter 06/14/2019 Advance Directives For more information, please contact: [phone] Code Status Date Activated Date Inactivated Comments Full Code 03/16/2017 7:21 PM 03/17/2017 7:28 PM This code status was determined by: Patient
--- OUTSIDE RECORDS SUMMARY | 2020-06-14 23:50 | XMS REPORT | Continuity of Care Document ---
:1985 Author Organization [facility] t Address [address] [place] [address] Dr. Jerome. [address] [place] [address] Care Team Providers Name Role Phone Maame Luke Primary Care Physician Ernie Hassan Attending Clinician Unavailable Ernie Hassan Attending Clinician Unavailable Ashlie BELTRÁN, M. 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 PICKER OPERATOR Attending Clinician Chantel DUNLAP R Attending Clinician Jeremiah RHODESP Attending Clinician Joseph GARCIA Attending Clinician Unavailable Ernie Hassan Admitting Clinician Unavailable ASHLIE Admitting Clinician Unavailable Joseph GARCIA Admitting Clinician Unavailable Problems Condition Condition Condition Status Onset Resolution Last Treating Co mments Source Name Details Category Date Date Treatment Clinician Date Alcohol Alcohol Disease Active [place] dependence dependence - Me thodi with with 00:00: st uncomplica uncomplica 00 luis luis withdrawal withdrawal Suicide Suicide Disease Active [place] attempt by attempt by 01-28 Me thodi alcohol alcohol 00:00: st poisoning poisoning 00 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 01-28 Me thodi pine use pine use 00:00: st disorder disorder 00 ЕЛЕНА ЕЛЕНА Disease Active [place] (generaliz (generaliz 01-28 Me thodi ed anxiety [...] Stop Date Source Natural father Heart attack [facility] Paternal grandfather Heart attack I [facility] Maternal aunt Depression [place] [facility] Maternal uncle Alcohol abuse [facility] Maternal uncle Depression [place] [facility] Maternal uncle Suicide Attempts [place] [facility] Natural mother Alcohol abuse [place] [facility] Social History Social Habit Start Date Stop Date Quantity Comments Source History of tobacco 1995-01-27 Current every Ori ston [facility] use 00:00:00 day smoker Alcohol Comment socially [facility] Sex Assigned At [facility] ethodist Cigarettes smoked 2020-01-28 2020-01-28 [facility] current (pack per 00:00:00 00:00:00 day) - Reported Cigarette 2020-01-28 2020-01-28 [place] Method ist pack-years 00:00:00 00:00:00 Tobacco use and 2020-01-28 2020-01-28 Never used [facility] ethodist exposure 00:00:00 00:00:00 Alcohol intake 2020-01-28 2020-01-28 Current drinker Kayla on [facility] 00:00:00 00:00:00 of alcohol (finding) Smoking Status [...] smoking. metoprolol hypertensio 50mg Q.5D Take 1 [place] tartrate 01-31 n tablet (50 Meth herminio (LOPRESSOR) 00:00: 23:59 mg total) st 50 mg 00 :00 by mouth tablet BID at 0700, 1900 for 30 days .high blood pressure. busPIRone generalized 7.5mg Q.5D Take 1 [place] (BUSPAR) 01-31 anxiety tablet Metho di 7.5 MG 00:00: 23:59 disorder (7.[address] tablet 00 :00 total) by mouth 2 (two) times a day for 7 days .repeated episodes of anxiety. Immunizations Ordered Immunization Filled Immunization Date Status Commen ts Source Name Name FLUCELVAX QUAD PF 2020-01-28 Completed [place] 00:00:00 [facility] Vital Signs Vital Name Observation Time Observation Value Comments Source Body weight 2020-02-01 07:04:00 85.548 kg Anthony Almeida BMI 2020-02-01 07:04:00 29.54 kg/m2 [facility] Systolic blood 2020-02-01 06:09:39 138 mm[Hg] Asuncion Almeida pressure Diastolic blood 2020-02-01 06:09:39 78 mm[Hg] [place] [facility] pressure Heart rate 2020-02-01 06:09:39 62 /min [facility] Body temperature 2020-02-01 06:09:39 36.5 Siobhan [place] [facility] Respiratory rate 2020-02-01 06:09:39 18 /min [place] [facility] Oxygen saturation in 2020-02-01 06:09:39 98 /min [facility] Arterial blood by Pulse oximetry Body height 2020-01-28 14:00:00 170.2 cm Anthony Almeida Procedures Procedure Date / Time Performed Performing Clinician Sourc e HEMOGLOBIN A1C 2020-01-29 06:10:00 Amarjit Pelaezshahab Bell [facility] LIPID PANEL 2020-01-29 06:10:00 Amarjit Pelaezshahab Bell [facility] HEPATITIS ACUTE PANEL 2020-01-29 06:10:00 Lelo Pelaez [place] [facility] GGT 2020-01-29 06:10:00 Lelo Pelaez [facility] MAGNESIUM LEVEL 2020-01-29 06:10:00 Amarjit Pelaeza Ray [facility] HIV AG/AB COMBINATION 2020-01-29 06:10:00 Amarjit Pelaeza Ray [place] [facility] Encounters Start End Encounter Admission Attending Care Care Encounter Source Date/Time Date/Time Type Type Clinicians Facility Department ID 2019-12-28 Inpatient 3 Mo Ted [facility] PS[facility] [id number] [facility] 22:04:00 Ted Hassan [id number] 2020-01-28 2020-02-01 Inpatient [facility] [id number] [place] 00:00:00 00:00:00 ROSI [address] 2019-12-28 2020-01-02 Inpatient 3 Ted Hassan [facility] PSY [id number] [facility] 22:04:00 17:20:00 Ted Hassan 2019-11-09 2019-11-10 Emergency Martha [facility] [id number] 23:06:12 01:26:00 Clovis Huang [id number] [place] 4.2.7.2.686 [place] [id number] 2019-09-29 2019-09-29 Emergency Singer [facility] [id number] 09:39:50 11:47:00 Johan [place] [id number] [place] 4.2.7.2.686 [place] [id number] 2019-06-16 2019-06-16 Emergency Fatimah [facility] [id number] 07:08:27 08:57:00 Nadine Huang [id number] [place] 4.2.7.2.686 [place] [id number] 2019-06-15 2019-06-15 Emergency Shelley Shahid [facility] [id number] 11:30:00 13:30:00 Margarita [place] [id number] [place] 4.2.7.2.686 [place] [id number] 2019-06-15 2019-06-15 Orders Doctor MCGINNIS [id number] 00:00:00 00:00:00 Only Unassigned, KAY [id number] [place] [facility] 4.2.7.2.686 [id number] 2019-06-06 2019-06-06 Letter Clinic, Count includes the [facility] [id number] 00:00:00 00:00:00 (Out) Neurology HEALTH [id number] Continuity CLINICS 4.2.7.2.686 [id number] 2019 2019 Urgent [facility] [id number] 10:16:26 10:55:54 Care [facility] [id number] Surgical 4.2.7.2.686 Special [id number] teddy Khai Sal 2019 2019 Orders Doctor RAS 1.2.840.114 [id number] 00:00:00 00:00:00 Only UnassignedKAY 350.1.13.10 [place] [facility] 4.2.7.2.686 [id number] 2019-01-24 2019-01-24 Emergency [facility] [id number] 15:49:15 22:27:00 Anitra Brownlee Sal [id number] [place] 4.2.7.2.686 [place] [id number] 2019-01-24 2019-01-24 Orders Doctor RAS [id number] 00:00:00 00:00:00 Only Unassigned, KAY 350.1.13.10 [place] [address]686 [id number] 2018-12-21 2018-12-21 Emergency [place], [facility] [id number] 17:07:20 19:42:00 Dejah Sal 350.1.13.10 [place] 4.2.7.2.686 [place] [id number] 2018-12-21 2018-12-21 Orders Doctor RAS 1.2.840.114 [id number] 00:00:00 00:00:00 Only Unassigned, KAY 350.1.13.10 [place] [address]686 [id number] Results Test Description Test Time Test Comments Results Result Comments Source Hepatitis acute panel 2020-01-29 09:42:25 Test Item Value Reference Range Interpretation Comme nts Hepatitis A IgM (test code = 12968-2) Non-reactive Non-reactive Hepatitis B core IgM (test code = 09399-4) Non-reactive Non-reactiv e Hepatitis B surface Ag (test code = 5195-3) Non-reactive Non-reacti ve Hepatitis C Ab (test code = 46873-0) Non-reactive Non-reactive [place] [facility] Ag/Ab [id number] 09:42:25 Test Item Value Reference Range Interpretation Comments HIV Ag/Ab combination (test code Non-reactive Non-reactive = 5299) [place] [facility] [id number] 08:59:44 Test Item Value Reference Range Interpretation Comments Hemoglobin A1C (test 5.5 % 4-5.6 HbA1c c utoffs for code = 82610-5) diagnosing d iabetes:4.0% - 5.6% = normal 5.7% - 6.4% = increase d risk for diabetes (prediabetes)9> =6.5% = ngnoonob7Joisz for glycemic contro l (ADA 2016)< 7.0% Ta rget for non faviola lts with diabetes. More or less stringent targe ts may be appropriate for individual mary ents. <7.5% Target for Children and ad olescents with type 1 lara betes. [facility] MethodistLipid [id number] 08:18:33 Test Item Value Reference Interpretation Comments [...] (mg/dL) interpretation (test < 200 code = 31103-9) Desirable 200-239 Borderline -high >=240 Hi gh [...] mg/dL) Lab Interpretation Abnormal (test code = 05640-8) [place] [id number] 08:18:33 Test Item Value Reference Range Interpretation Comments GGT (test code = 2324-2) 141 U/L 0-59 H Lab Interpretation (test code = Abnormal 09258-7) Anthony AlmeidaMagnesium [id number] 08:18:33 Test Item Value Reference Range Interpretation Comments Magnesium (test code = 82462-7) 2.1 mg/dL 1.6-2.6 [place] MethodistRPR [id number] 16:27:39 Test Item Value Reference Range Interpretation Comments RPR Qual (test code = RPR Qual) Non-Reactive Non-Reactive Reactive Control (test code = Reactive Reactive Control) Weak Reactive Control (test Weak Reactive code = Weak Reactive Control) Non-Reactive Control (test code Non-Reactive = Non-Reactive Control) Lot # (test code = Lot #) [id number] N Expiration Dt (test code = 02-07-2021 N Expiration Dt) Lipid [id number] 07:26:04 Test Item Value Reference Range Interpretation [...] LDL/HDL Ratio=L DL Calc/HDL Chol Thyroid Stimulating [id number] 07:26:04 Test Item Value Reference Range Interpretation Comments TSH (test code = TSH) 1.757 mcIU/mL 0.550-4.780 Hemoglobin [id number] 07:26:03 Test Item Value Reference Range Interpretation Comments Hemoglobin A1c (test code 4.9 % 4.0-5.8 Di abetic >=6.5 = Hemoglobin A1c) %Prediabet es 5.7-6.4 %Normal <5.7 % [facility], [facility], [id number] 14:45:00FINAL REPORT PROCEDURE: Rest/Stress MYOCARDIAL PERFUSION SPECT with treadm ill\XA9\ CPT CODE: 32171 INDICATION: Chest pain HISTORY: Cardiac risk factors: [...] 5. Normal extracardiactracer distribution. 6. No previous [facility] study for comparison. NONINVASIVE RISK STRATIFICATION: The above findings are considered low risk (<1% annual mortality rate) based on the following criterion:- Normal or small myocardial perfusion defect at rest or with stress(JACC. 2012;59(9):857-81.) Signed: Albert Ruvalcaba MDReport Verified Date/Time: 03/17/2017 14:45:11 Reading Location: [address] Reading Room HEMOGLOBIN [id number] 08:29:00 Test Item Value Reference Range Interpretation Comments HEMOGLOBIN A1C (BEAKER) (test code = 5.5 % 4.3-6.1 368) CREATINE KINASE (CK), TOTAL AND [id number] 02:45:00 Test Item Value Reference Range Interpretation Comments CREATINE KINASE TOTAL (BEAKER) 34 U/L 29-200 (test code = 380) CREATINE KINASE-MB (BEAKER) (test 0.4 ng/mL 0.0-6.6 code = 750) CREATINE KINASE-MB INDEX (BEAKER) 1.2 % (test code = 395) CK-MB Reference Range:<6.7 Normal6.7-10.0 Borderline>10.0 AbnormalTROPONIN [id number] 02:45:00 Test Item Value Reference Range Interpretation [...] and persistent tachyarrhythmia.RAD, CHEST, 1 VIEW, NON [id number] 20:40:00Reason for exam:->chest painShould this be performed at the bedside?->YesFINAL REPORT EXAMINATION: AP PORTABLE CHEST RADIOGRAPH CLINICAL INDICATION:Chest pain IMPRESSION: Compared with 04/30/2016. No evidence of focal lung consolidation, pulmonary edema or pleural effusion. The heart size is normal. Mediastinal contours are sharp. No evidence of an acute osseous abnormality or pneumothorax. Signed: Santhosh Castle MDReport Verified Date/Time: 03/16/2017 20:40:21 Reading Location: [address] Reading Room B-TYPE NATRIURETIC FACTOR (BNP)2017-03-16 20:30:00 Test Item Value Reference Range Interpretation Comments B-TYPE NATRIURETIC PEPTIDE (BEAKER) < pg/mL 0-100 (test code = 700) COMPREHENSIVE METABOLIC [id number] 20:30:00 Test Item Value Reference Range Interpretation [...] ATED GFR. CREATINE KINASE (CK), TOTAL AND [id number] 20:28:00 Test Item Value Reference Range Interpretation Comments CREATINE KINASE TOTAL (BEAKER) 50 U/L 29-200 (test code = 380) CREATINE KINASE-MB (BEAKER) (test 0.5 ng/mL 0.0-6.6 code = 750) CREATINE KINASE-MB INDEX (BEAKER) 1.0 % (test code = 395) CK-MB Reference Range:<6.7 Normal6.7-10.0 Borderline>10.0 AbnormalTROPONIN [id number] 20:28:00 Test Item Value Reference Range Interpretation [...] failure, acidosis, acute neurological disease, and persistent tachyarrhythmia.[id number] 20:21:00 Test Item Value Reference Range Interpretation Comments MAGNESIUM (BEAKER) 2.2 mg/dL 1.6-2.6 Specimen slightly (test code = 627) hemolyzed [id number] 20:21:00 Test Item Value Reference Range Interpretation Comments PHOSPHORUS (BEAKER) 3.9 mg/dL 2.3-4.7 Specimen slightly (test code = 604) hemolyzed LIPID [id number] 20:21:00 Test Item Value Reference Range Interpretation [...] Borderline 130-159 High 160-189 Very High >=190PROTHROMBIN TIME/[id number] 20:07:00 Test Item Value Reference Range Interpretation Comments PROTIME (BEAKER) (test code = 13.0 seconds 11.7-14.7 759) INR (BEAKER) (test code = 370) 1.0 <=5.9 RECOMMENDED COUMADIN/WARFARIN INR THERAPY RANGESSTANDARD DOSE: 2.0 - 3.0 Includes: PROPHYLAXIS forvenous thrombosis, systemic embolization; TREATMENT for venous thrombosis and/or pulmonary embolus.HIGH RISK: Target INR is 2.5-3.5 for patients with mechanical heart valves.[id number] 20:07:00 Test Item Value Reference Range Interpretation Comments PARTIAL THROMBOPLASTIN TIME 26.9 seconds 22.5-36.0 (BEAKER) (test code = 760) CBC W/PLT COUNT & AUTO [id number] 19:57:00 Test Item Value Reference Range Interpretation [...] % 0-1 PERCENT (BEAKER) (test code = 8825)
[2020-06-15 00:23] LABS: Urine Blood NEGATIVE (NEG); Urine Glucose NEGATIVE (NEG); Urine Protein 2+ (NEG)
[2020-06-15 00:25] LABS: Basophils % 0.5 % (0-1.3); Hematocrit 45.4 % (39.6-49.0); Lymphocytes % 28.3 % (15.3-44.8); RBC Red Blood Cell Count 5.08 M/uL (4.33-5.43)
[2020-06-15 00:30] LABS: Protime INR 0.99
[2020-06-15 00:33] LABS: ALT/SGPT 27 U/L (12-78); AST/SGOT 21 U/L (15-37); Albumin 4.1 g/dL (3.4-5.0); Alkaline Phosphatase 75 U/L (45-117); BUN Blood Urea Nitrogen 6 mg/dL (7-18); Bicarbonate 24 mmol/L (21-32); Bilirubin Direct < 0.1 mg/dL (0-0.2); Bilirubin Total 0.3 mg/dL (0.2-1.0); Glucose Level 104 mg/dL (74-106); Magnesium 2.2 mg/dL (1.8-2.4); NT PRO-BNP 32 pg/mL (<125); Potassium 3.9 mmol/L (3.5-5.1); Protein, Total 8.3 g/dL (6.4-8.2); Sodium Level 138 mmol/L (136-145); Troponin (Emerg Dept Use Only) < 0.02 ng/mL (0.0-0.045)
[2020-06-15] MEDS ORDERED: NA CHLORIDE 0.9% 1,000 ML ONE (00:33)
[2020-06-15 00:46] LABS: Barbiturates NEGATIVE (NEGATIVE); Benzodiazepines NEGATIVE (NEGATIVE); Cocaine NEGATIVE (NEGATIVE); METHAMPHETAM NEGATIVE (NEGATIVE); Methadone NEGATIVE (NEGATIVE); Opiates NEGATIVE (NEGATIVE); Phencyclidine NEGATIVE (NEGATIVE); THC Cannibis NEGATIVE (NEGATIVE)
[2020-06-15] MEDS ORDERED: ASPIRIN 81 MG CHEWABLE TABLET ONE (01:00)
[2020-06-15] MEDS ORDERED: METOPROLOL TAR 50 MG TAB ONE (01:40)
[2020-06-15] MEDS ORDERED: THIAMINE 200 MG/2 ML INJ ONE (01:52)
[2020-06-15] MEDS ORDERED: AMLODIPINE 10 MG TAB ONE (01:52)
--- NOTE | 2020-06-15 03:17 | ER ---
Nurse's Notes [facility] Name: Srini Simpson Age: 35 yrs Sex: Male : 1985 Arrival Date: 06/14/2020 Time: 23:48 Bed 7 Private MD: Diagnosis: Chest pain, unspecified;Essential (primary) hypertension;Alcohol abuse with intoxication Presentation: 06/14 23:50 Chief complaint: EMS states: Pt was walking from [place] to [place] when he experienced chest pain, describes it as squeezing type of pain. NSR on EKG en route to ER. Coronavirus screen: Client denies travel out of the [place] in the last 14 days. At this time, the client does not indicate any symptoms associated with coronavirus-19. Ebola Screen: Patient negative for fever greater than or equal to 101.5 degrees Fahrenheit, and additional compatible Ebola Virus Disease symptoms Patient denies exposure to infectious person. Initial Sepsis Screen: Does the patient meet any 2 criteria? No. Patient's initial sepsis screen is negative. Does the patient have a suspected source of infection? No. Patient's initial sepsis screen is negative. Risk Assessment: Do you want to hurt yourself or someone else? Patient reports no desire to harm self or others. Onset of symptoms was June 15, 2020. 23:50 Method Of Arrival: EMS: [facility] 23:50 Acuity: CHRISTINE 3 Historical: - Allergies: 06/15 00:48 No Known Allergies; wh - Home Meds: 00:49 Effexor Oral 75 mg nightly [Active]; Effexor XR 150 mg Oral cp24 every morning [Active]; Effexor XR 75 mg Oral cp24 1 cap every morning [Active]; hydroxyzine HCl 50 mg Oral tab 1 tab 4 times per day for Anxiety [Active]; Klonopin 1 mg Oral tab 1 tab 2 times per day [Active]; metoprolol tartrate 50 mg Oral tab 1 tab 2 times per day [Active]; trazodone 50 mg Oral tab 1 tab for Major Depressive Disorder [Active]; Valium 10 mg Oral tab 1 tab 2 times per day [Active]; - PMHx: 00:48 Anxiety; Depression; Hypertension; Pyloric Stenosis; wh - Immunization history:: Adult Immunizations not up to date. - Social history:: Smoking status: Patient reports the use of cigarette tobacco products. - Family history:: not pertinent. Screenin:00 Abuse screen: Denies threats or abuse. Denies injuries from another. Nutritional screening: No deficits noted. Tuberculosis screening: No symptoms or risk factors identified. Fall Risk None identified. Assessment: 06/14 23:55 General: Appears in no apparent distress. unkempt, Behavior is calm, cooperative, wh appropriate for age. Pain: Complains of pain in chest Pain does not radiate. Quality of pain is described as squeezing, Pain began 30 min ago. Neuro: Level of Consciousness is awake, alert, obeys commands, Oriented to person, place, time, situation, Appropriate for age. Cardiovascular: Heart tones S1 S2 Rhythm is sinus rhythm. Respiratory: Airway is patent Respiratory effort is even, unlabored, Respiratory pattern is regular, symmetrical, Breath sounds are clear bilaterally. GI: Abdomen is flat, non-distended. : No signs and/or symptoms were reported regarding the genitourinary system. EENT: No signs and/or symptoms were reported regarding the EENT system. Derm: Skin is intact, is healthy with good turgor, Skin is pink, warm \T\ dry. normal. Musculoskeletal: Circulation, motion, and sensation intact. 06/15 00:51 Reassessment: Patient appears in no apparent distress at this time. No changes from previously documented assessment. Patient and/or family updated on plan of care and expected duration. Pain level reassessed. Patient is alert, oriented x 3, equal unlabored respirations, skin warm/dry/pink. Vital Signs: 06/14 23:50 BP 167 / 105; Pulse 88; Resp 18; Temp 98.5; Pulse Ox 94% ; Weight 83.91 kg; Height 5 wh ft. 7 in. (170.18 cm); Pain 5/10; 06/15 00:52 BP 161 / 111; Pulse 87; Resp 18; Pulse Ox 95% on R/A; wh 02:19 BP 129 / 100; Pulse 88; Resp 13; Pulse Ox 94% on R/A; rv 06/14 23:50 Body Mass Index 28.97 (83.91 kg, 170.18 cm) ED Course: 06/14 23:48 Patient arrived in ED. mw2 23:51 Habalo, Winsy, RN is Primary Nurse. 06/15 00:00 No provider procedures requiring assistance completed. Maintain EMS IV. Dressing wh intact. Good blood return noted. Site clean \T\ dry. Patient maintains SpO2 saturation greater than 95% on room air. 00:00 Patient has correct armband on for positive identification. Bed in low position. Call light in reach. Side rails up X 1. engine monitor on. Pulse ox on. NIBP on. 00:00 Arm band placed on right wrist. 00:15 Jeevan Shaw MD is Attending Physician. [facility] 00:16 XRAY Chest (1 view) In Process Unspecified. EDMS 00:47 Triage completed. 03:17 Austin Martinez MD is Referral Physician. [facility] 03:32 IV discontinued, intact, bleeding controlled, No redness/swelling at site. Pressure rv dressing applied. Administered Medications: 00:20 Drug: NS 0.9% 1000 ml Route: IV; Rate: 1 bolus; Site: left antecubital; 02:20 Follow up: IV Status: Completed infusion; IV Intake: 1000ml rv 00:44 Drug: Aspirin 162 mg Route: PO; 02:20 Follow up: Response: No adverse reaction rv 01:26 Drug: Lopressor (metoprolol TARTRATE) 50 mg Route: PO; 02:20 Follow up: Response: No adverse reaction rv 01:38 Drug: Norvasc 10 mg Route: PO; 02:19 Follow up: Response: No adverse reaction; Blood pressure is lowered rv 01:39 Drug: Thiamine 100 mg Route: IV; Rate: per protocol; Site: left antecubital; 02:19 Follow up: Response: No adverse reaction; IV Status: Completed infusion rv Intake: 02:20 IV: 1000ml; Total: 1000ml. rv Outcome: 03:17 Discharge ordered by . nehemias 03:31 Discharged to home ambulatory. rv 03:31 Condition: good 03:31 Discharge instructions given to patient, Instructed on discharge instructions, follow up and referral plans. medication usage, Demonstrated understanding of instructions, follow-up care, medications, Prescriptions given X 2. 03:32 Patient left the ED. rv Signatures: Dispatcher [employer] EDLA Jeevan Shaw MD MD cha Habalo, Winsy, ALTON DANG Noel Fraser mw2 Ramos, Thanh, RN RN rv
--- NOTE | 2020-06-15 03:17 | EDPHYS ---
Physician Documentation [facility] Name: Srini Simpson Age: 35 yrs Sex: Male : 1985 Arrival Date: 06/14/2020 Time: 23:48 Bed 7 Private MD: ED Physician Jeevan Shaw HPI: 06/15 00:24 This 35 yrs old Male presents to ER via Unassigned with complaints of Chest nehemias Pain. 00:24 The patient or guardian reports chest pain that is located primarily in the anterior nehemias chest wall, right. The pain does not radiate. Associated signs and symptoms: The patient has no apparent associated signs or symptoms. The chest pain is described as a pressure. Duration: The patient or guardian reports a single episode, that is still ongoing. Modifying factors: The symptoms are alleviated by nothing. the symptoms are aggravated by nothing. Severity of pain: At its worst the pain was mild in the emergency department the pain is unchanged. EMS care prior to arrival includes: aspirin, supplemental oxygen. The patient has not experienced similar symptoms in the past. Historical: - Allergies: 00:48 No Known Allergies; wh - Home Meds: 00:49 Effexor Oral 75 mg nightly [Active]; Effexor XR 150 mg Oral cp24 every morning [Active]; Effexor XR 75 mg Oral cp24 1 cap every morning [Active]; hydroxyzine HCl 50 mg Oral tab 1 tab 4 times per day for Anxiety [Active]; Klonopin 1 mg Oral tab 1 tab 2 times per day [Active]; metoprolol tartrate 50 mg Oral tab 1 tab 2 times per day [Active]; trazodone 50 mg Oral tab 1 tab for Major Depressive Disorder [Active]; Valium 10 mg Oral tab 1 tab 2 times per day [Active]; - PMHx: 00:48 Anxiety; Depression; Hypertension; Pyloric Stenosis; wh - Immunization history:: Adult Immunizations not up to date. - Social history:: Smoking status: Patient reports the use of cigarette tobacco products. - Family history:: not pertinent. ROS: 00:24 Constitutional: Negative for fever, chills, and weight loss, Eyes: Negative for injury, nehemias pain, redness, and discharge, ENT: Negative for injury, pain, and discharge, Neck: Negative for injury, pain, and swelling, Respiratory: Negative for shortness of breath, cough, wheezing, and pleuritic chest pain, Abdomen/GI: Negative for abdominal pain, nausea, vomiting, diarrhea, and constipation, Back: Negative for injury and pain, : Negative for injury, bleeding, discharge, and swelling, MS/Extremity: Negative for injury and deformity, Skin: Negative for injury, rash, and discoloration, Neuro: Negative for headache, weakness, numbness, tingling, and seizure, Psych: Negative for depression, anxiety, suicide ideation, homicidal ideation, and hallucinations, Allergy/Immunology: Negative for hives, rash, and allergies, Endocrine: Negative for neck swelling, polydipsia, polyuria, polyphagia, and marked weight changes, Hematologic/Lymphatic: Negative for swollen nodes, abnormal bleeding, and unusual bruising. 00:24 Cardiovascular: Positive for chest pain, of the chest. 00:24 Respiratory: Positive for shortness of breath, at rest. Exam: 00:24 Constitutional: This is a well developed, well nourished patient who is awake, alert, nehemias and in no acute distress. Head/Face: Normocephalic, atraumatic. Eyes: Pupils equal round and reactive to light, extra-ocular motions intact. Lids and lashes normal. Conjunctiva and sclera are non-icteric and not injected. Cornea within normal limits. Periorbital areas with no swelling, redness, or edema. ENT: Nares patent. No nasal discharge, no septal abnormalities noted. Tympanic membranes are normal and external auditory canals are clear. Oropharynx with no redness, swelling, or masses, exudates, or evidence of obstruction, uvula midline. Mucous membranes moist. Neck: Trachea midline, no thyromegaly or masses palpated, and no cervical lymphadenopathy. Supple, full range of motion without nuchal rigidity, or vertebral point tenderness. No Meningismus. Chest/axilla: Normal chest wall appearance and motion. Nontender with no deformity. No lesions are appreciated. Cardiovascular: Regular rate and rhythm with a normal S1 and S2. No gallops, murmurs, or rubs. Normal PMI, no JVD. No pulse deficits. Respiratory: Lungs have equal breath sounds bilaterally, clear to auscultation and percussion. No rales, rhonchi or wheezes noted. No increased work of breathing, no retractions or nasal flaring. Abdomen/GI: Soft, non-tender, with normal bowel sounds. No distension or tympany. No guarding or rebound. No evidence of tenderness throughout. Back: No spinal tenderness. No costovertebral tenderness. Full range of motion. Male : Normal genitalia with no discharge or lesions. Skin: Warm, dry with normal turgor. Normal color with no rashes, no lesions, and no evidence of cellulitis. MS/ Extremity: Pulses equal, no cyanosis. Neurovascular intact. Full, normal range of motion. Neuro: Awake and alert, GCS 15, oriented to person, place, time, and situation. Cranial nerves II-XII grossly intact. Motor strength 5/5 in all extremities. Sensory grossly intact. Cerebellar exam normal. Normal gait. Psych: Awake, alert, with orientation to person, place and time. Behavior, mood, and affect are within normal limits. 00:24 Musculoskeletal/extremity: Extremities: all appear grossly normal, with no appreciated pain with palpation, DVT Exam: No signs of deep vein thrombosis. no pain, no swelling, no tenderness, negative Homans' sign noted on exam, no appreciated bluish discoloration, no erythema, no increased warmth. 00:32 ECG was reviewed by the Attending Physician. [facility] Vital Signs: 06/14 23:50 BP 167 / 105; Pulse 88; Resp 18; Temp 98.5; Pulse Ox 94% ; Weight 83.91 kg; Height 5 wh ft. 7 in. (170.18 cm); Pain 5/10; 06/15 00:52 BP 161 / 111; Pulse 87; Resp 18; Pulse Ox 95% on R/A; 02:19 BP 129 / 100; Pulse 88; Resp 13; Pulse Ox 94% on R/A; rv 06/14 23:50 Body Mass Index 28.97 (83.91 kg, 170.18 cm) MDM: 00:15 Patient medically screened. [facility] 00:28 Differential diagnosis: abnormal EKG, acute myocardial infarction, anxiety, nehemias cholecystitis, Cholelithiasis esophagitis, hiatal hernia, pancreatitis, pericarditis, pleurisy, stable angina, unstable angina. HEART Score: History: Slightly Suspicious (0), ECG: Normal (0), Age: < or = 45 years (0), Risk Factors: No Risk Factors Known (0), Troponin: < or = 1 x Normal Limit (0), Total Score = 0. The patient's deep vein thrombosis risk score was calculated as follows: Total Score: 0. This patient was found to be at low risk for a deep vein thrombosis by using the Well's assessment criteria. The patient's pulmonary embolism risk score was calculated as follows: No Risks (0 Pts) Total Score: 0-2 points. This patient was found to be at low risk for a pulmonary embolism by using the Well's assessment criteria. NAYELI Risk Score: TOTAL SCORE = 0. Data reviewed: vital signs, nurses notes, lab test result(s), EKG, radiologic studies, plain films. 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 on room air. Test interpretation: by ED physician or midlevel provider: ECG, plain radiologic studies. Counseling: I had a detailed discussion with the patient and/or guardian regarding: the historical points, exam findings, and any diagnostic results supporting the discharge/admit diagnosis, lab results, radiology results. 06/14 23:51 Order name: Basic Metabolic Panel 06/14 23:51 Order name: CBC with Diff; Complete Time: 00:33 06/14 23:51 Order name: LFT's 06/14 23:51 Order name: Magnesium; Complete Time: 01:08 06/14 23:51 Order name: NT PRO-BNP; Complete Time: 01:08 06/14 23:51 Order name: PT-INR; Complete Time: 01: 06/14 23:51 Order name: Troponin (emerg Dept Use Only); Complete Time: 01: 06/14 23:52 Order name: Basic Metabolic Panel; Complete Time: 01:08 [facility] 06/14 23:52 Order name: Liver (Hepatic) Function; Complete Time: 01:08 [facility] 06/14 23:59 Order name: Salicylate; Complete Time: 00:33 06/14 23:59 Order name: UDS; Complete Time: : 06/14 23:59 Order name: ETOH Level 06/14 23:59 Order name: Alcohol Serum/Plasma; Complete Time: 01:08 [facility] 06/15 00:13 Order name: Urine Dipstick--Ancillary (enter results); Complete Time: 00:33 mw2 06/14 23:51 Order name: XRAY Chest (1 view) 06/14 23:51 Order name: EKG; Complete Time: 23:52 06/14 23:51 Order name: Cardiac monitoring; Complete Time: 00: 06/14 23:51 Order name: EKG - Nurse/Tech; Complete Time: 00: 06/14 23:51 Order name: IV Saline Lock; Complete Time: 00: 06/14 23:51 Order name: Labs collected and sent; Complete Time: 00: 06/14 23:51 Order name: O2 Per Protocol; Complete Time: 00: 06/14 23:51 Order name: O2 Sat Monitoring; Complete Time: : 06/15 00:11 Order name: Urine Dipstick-Ancillary (obtain specimen); Complete Time: 00: 06/15 02:55 Order name: Troponin (Emerg Dept Use Only); Complete Time: 03:16 EDMS EC:32 Rate is 91 beats/min. Rhythm is regular. QRS [place] is Normal. WI interval is normal. QRS nehemias interval is normal. QT interval is normal. No Q waves. T waves are Normal. No ST changes noted. Clinical impression: Normal ECG and No evidence of ischemia. Interpreted by me. Reviewed by me. Administered Medications: 00:20 Drug: NS 0.9% 1000 ml Route: IV; Rate: 1 bolus; Site: left antecubital; 02:20 Follow up: IV Status: Completed infusion; IV Intake: 1000ml rv 00:44 Drug: Aspirin 162 mg Route: PO; 02:20 Follow up: Response: No adverse reaction rv 01:26 Drug: Lopressor (metoprolol TARTRATE) 50 mg Route: PO; wh 02:20 Follow up: Response: No adverse reaction rv 01:38 Drug: Norvasc 10 mg Route: PO; wh 02:19 Follow up: Response: No adverse reaction; Blood pressure is lowered rv 01:39 Drug: Thiamine 100 mg Route: IV; Rate: per protocol; Site: left antecubital; 02:19 Follow up: Response: No adverse reaction; IV Status: Completed infusion rv Disposition: 06/15/20 03:17 Discharged to Home. Impression: Chest pain, unspecified, Essential (primary) hypertension, Alcohol abuse with intoxication. - Condition is Stable. - Discharge Instructions: Alcohol Intoxication, Nonspecific Chest Pain, Hypertension, Alcohol Intoxication, Wkux-xl-Waqt, Nonspecific Chest Pain, Mhzj-bv-[id number], Hypertension, Rope-qr-Dgkq, Alcohol Abuse and Nutrition, How to Take Your Blood Pressure, Yrhz-gw-Pgqr, Aspirin and Your Heart, Managing Your Hypertension. - Prescriptions for Lopressor 50 mg Oral Tablet - take 1 tablet by ORAL route every 12 hours; 30 tablet. Norvasc 5 mg Oral Tablet - take 1 tablet by ORAL route once daily; 20 tablet. - Medication Reconciliation Form, Thank You Letter, Antibiotic Education, Prescription Opioid Use form. - Follow up: Private Physician; When: 2 - 3 days; Reason: Recheck today's complaints, Continuance of care, Re-evaluation by your physician. Follow up: Austin Martinez; When: 2 - 3 days; Reason: Recheck today's complaints, Re-evaluation by your physician. - Problem is new. - Symptoms have improved. Signatures: Dispatcher [employer] [facility] Jeevan Shaw MD MD cha Habalo, Winsy, RN RN Thanh Beasley RN RN rv Corrections: (The following items were deleted from the chart) 02:54 01:14 TROPONIN (EMERG DEPT USE ONLY)+C.LAB.BRZ ordered. [facility] 03:32 03:17 06/15/2020 03:17 Discharged to Home. Impression: Chest pain, unspecified; rv Essential (primary) hypertension; Alcohol abuse with intoxication. Condition is Stable. Discharge Instructions: Nonspecific Chest Pain, Hypertension, Nonspecific Chest Pain, Haxu-ie-Btlh, Hypertension, Nnhd-xs-Ootv, How to Take Your Blood Pressure, Druo-hl-Cdkv, Aspirin and Your Heart, Managing Your Hypertension, Alcohol Intoxication, Alcohol Intoxication, Ktnd-gy-Qget, Alcohol Abuse and Nutrition. Prescriptions for Lopressor 50 mg Oral Tablet - take 1 tablet by ORAL route every 12 hours; 30 tablet, Norvasc 5 mg Oral Tablet - take 1 tablet by ORAL route once daily; 20 tablet. and Forms are Medication Reconciliation Form, Thank You Letter, Antibiotic Education, Prescription Opioid Use. Follow up: Private Physician; When: 2 - 3 days; Reason: Recheck today's complaints, Continuance of care, Re-evaluation by your physician. Follow up: Austin Martinez; When: 2 - 3 days; Reason: Recheck today's complaints, Re-evaluation by your physician. Problem is new. Symptoms have improved. nehemias
[2020-06-15 03:42] VITALS: TEMP 98.5
[2020-06-15 03:44] VITALS: BP 129/100; O2SAT 94
--- NOTE | 2020-06-15 08:20 | RAD REPORT ---
EXAM DESCRIPTION: RAD - Chest Single View - 06/15/2020 12:17 am CLINICAL HISTORY: CHEST PAIN COMPARISON: May 22 TECHNIQUE: AP portable chest image was obtained 06/15/2020 12:17 am . FINDINGS: Lungs are clear. Heart and vasculature are normal. No measurable pleural effusion and no p neumothorax. No acute bony abnormality seen. No acute aortic findings suspected. IMPRESSION: No acute cardiopulmonary process. No significant change from comparison study.
== END 2020-06-15 03:32 | disposition home or self-care (01) ==
LOC: ER 23:47
DX: F10.129 Alcohol abuse with intoxication, unspecified (principal); I10 Essential (primary) hypertension; F41.8 Other specified anxiety disorders; Z72.0 Tobacco use
CPT/HCPCS: 36415; 71045; 80048; 80076; 80307; 80320; 80329; 81003; 83735; 83880; 84484; 85025; 85610; 93005; 96361; 96365; 99285; J3411; J7030

== ENCOUNTER 2020-06-15 04:46 | Emergency (ER) | payer SELFPAY ==
--- OUTSIDE RECORDS SUMMARY | 2020-06-15 04:47 | XMS REPORT | Clinical Summary ---
:[address] [facility] Address [address] [place] [id number] Care Team Providers Name Role Phone Vijay [...] Not on file Results Not on fileafter 06/15/2019 Advance Directives For more information, please contact: [phone] Code Status Date Activated Date Inactivated Comments Full Code 03/16/2017 7:21 PM 03/17/2017 7:28 PM This code status was determined by: Patient
--- OUTSIDE RECORDS SUMMARY | 2020-06-15 04:47 | XMS REPORT | Clinical Summary ---
:1985 Author Organization [facility] Address [address] [place] [address] Care Team Providers Name Role Phone Vijay [...] Psychiatry Nelly Fontanez M D 02/01/2020 after 06/15/2019 Immunizations Name Administration Dates Next Due FLUCELVAX [...] are i n the results section. after 06/15/2019 Results HIV Ag/Ab combination (01/29/2020 6:10 AM CDT) HIV Ag/Ab combination Non-reactive Non-reactive [facility] Specimen Serum Performing Organization Address City/[facility]/ZIP [facility] Phon e Number [facility] DEPARTMENT OF PATHOLOGY AND [address] [place] [address] [phone] [address] Hepatitis acute panel (01/29/2020 6:10 AM CDT) Pathologist Sig nature Hepatitis A IgM Non-reactive Non-reactive [facility] Hepatitis B core Non-reactive Non-reactive [facility] Hepatitis B surface Non-reactive Non-reactive [facility] Hepatitis C Ab Non-reactive Non-reactive [facility] Specimen Serum Performing Organization Address City/[facility] Phon e Number [facility] DEPARTMENT OF PATHOLOGY AND [address] [place] [address] [phone] [address] Magnesium level (01/29/2020 6:10 AM CDT) Pathologist Sig [facility] Magnesium 2.1 1.6 - 2.6 mg/dL [facility] L Specimen Blood Performing Organization Address City/[facility] Phon e Number [facility] DEPARTMENT OF PATHOLOGY AND [address] [place] [address] [phone] [address] Hemoglobin A1c (01/29/2020 6:10 AM CDT) Hemoglobin A1C 5.5 4.0 - 5.6 % [facility] Comment: HOSPITAL HbA1c cutoffs for diagnosing diabetes: [...] diabetes. Specimen Blood Performing Organization Address City/State/ZIP [facility] Phon e Number [facility] DEPARTMENT OF PATHOLOGY AND [address] [place] [address] [phone] [address] GGT (01/29/2020 6:10 AM CDT) Pathologist Sig nature GGT 141 (H) 0 - 59 U/L [facility] Specimen Blood Performing Organization Address City/[facility] Phon e Number [facility] DEPARTMENT OF PATHOLOGY AND [address] [place], [place] [phone] [place] [id number] [place] [address] Lipid panel (01/29/2020 6:10 AM CDT) Cholesterol 156 <200 mg/dL [facility] Triglycerides 107 <150 mg/dL [facility] HDL cholesterol 35 (L) >40 mg/dL [facility] LDL cholesterol 109 (H)Comment: <100 mg/dL [place] Result obtained by [facility] direct [facility] measurement Lipid panel [facility] interpretation Comment: [facility] Total Cholesterol (mg/dL) [facility] [place] <200 Desirable [...] (>=200 mg/dL) Specimen Blood Performing Organization Address City/[facility] Phon e Number [facility] DEPARTMENT OF PATHOLOGY AND [address] [place], [place] [phone] [address] after 06/15/2019 Advance Directives For more information, please contact: [phone] Type Date Recorded 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
--- OUTSIDE RECORDS SUMMARY | 2020-06-15 04:48 | XMS REPORT | Continuity of Care Document ---
:1985 Author Organization [facility] t Address [address] [place] [address] Dr. [address]. [address] [place] [address] Care Team Providers Name Role Phone Maame Luke Primary Care Physician Ernie Hassan Attending Clinician Unavailable Ernie Hassan Attending Clinician Unavailable Ashlie BELTRÁN, M. Attending Clinician Lexy Thomas MD Attending Clinician Singer LAW Attending Clinician Fatimah BELTRÁN S Attending Clinician Margarita Marroquin Attending Clinician Doctor Unassigned, Name Attending Clinician Unavailable Clinic, Neurology Continuity Attending Clinician Unavailcydney Dos Santos DIRECTOR OUTPATIENT SERVICES Attending Clinician Chantel DUNLAP R Attending Clinician Jeremiah RHODESP Attending Clinician Joseph GARCIA Attending Clinician Unavailable Ernie Hassan Admitting Clinician Unavailable ASHLIE Admitting Clinician Unavailable Joseph GARCIA Admitting Clinician Unavailable Problems Condition Condition Condition Status Onset Resolution Last Treating Co mments Source Name Details Category Date Date Treatment Clinician Date Alcohol Alcohol Disease Active [place] dependence dependence - Me thodi with with 00:00: st uncomplica uncomplica 00 luis luis withdrawal withdrawal Suicide Suicide Disease Active [place] attempt by attempt by 01-28 Me thodi alcohol alcohol 00:00: st poisoning poisoning 00 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 01-28 Me thodi pine use pine use 00:00: st disorder disorder 00 ЕЛЕНА ЕЛЕНА Disease Active [place] (generaliz (generaliz 01-28 Me thodi ed anxiety [...] Stop Date Source Natural father Heart attack [facility] Paternal grandfather Heart attack I [facility] Maternal aunt Depression [facility] Maternal uncle Alcohol abuse [place] Nondenominational Maternal uncle Depression [facility] Maternal uncle Suicide Attempts [place] [facility] Natural mother Alcohol abuse [place] Nondenominational Social History Social Habit Start Date Stop Date Quantity Comments Source History of tobacco 1995-01-27 Current every Ori ston Nondenominational use 00:00:00 day smoker Alcohol Comment socially [facility] Sex Assigned At [facility] ethodist Cigarettes smoked 2020-01-28 2020-01-28 [place] Nondenominational current (pack per 00:00:00 00:00:00 day) - Reported Cigarette 2020-01-28 2020-01-28 [place] Method ist pack-years 00:00:00 00:00:00 Tobacco use and 2020-01-28 2020-01-28 Never used [facility] ethodist exposure 00:00:00 00:00:00 Alcohol intake 2020-01-28 2020-01-28 Current drinker Kayla on Nondenominational 00:00:00 00:00:00 of alcohol (finding) Smoking Status [...] smoking. metoprolol hypertensio 50mg Q.5D Take 1 [place] tartrate 01-31 n tablet (50 Meth herminio (LOPRESSOR) 00:00: 23:59 mg total) st 50 mg 00 :00 by mouth tablet BID at 0700, 1900 for 30 days .high blood pressure. busPIRone generalized 7.5mg Q.5D Take 1 [place] (BUSPAR) 01-31 anxiety tablet Metho di 7.5 MG 00:00: 23:59 disorder (7.[address] tablet 00 :00 total) by mouth 2 (two) times a day for 7 days .repeated episodes of anxiety. Immunizations Ordered Immunization Filled Immunization Date Status Commen ts Source Name Name FLUCELVAX QUAD PF 2020-01-28 Completed [place] 00:00:00 Nondenominational Vital Signs Vital Name Observation Time Observation Value Comments Source Body weight 2020-02-01 07:04:00 85.548 kg Anthony Almeida BMI 2020-02-01 07:04:00 29.54 kg/m2 [place] [facility] Systolic blood 2020-02-01 06:09:39 138 mm[Hg] Asuncion Almeida pressure Diastolic blood 2020-02-01 06:09:39 78 mm[Hg] [place] Nondenominational pressure Heart rate 2020-02-01 06:09:39 62 /min [place] [facility] Body temperature 2020-02-01 06:09:39 36.5 Siobhan [place] [facility] Respiratory rate 2020-02-01 06:09:39 18 /min [place] [facility] Oxygen saturation in 2020-02-01 06:09:39 98 /min [place] [facility] Arterial blood by Pulse oximetry Body height 2020-01-28 14:00:00 170.2 cm Anthony Almeida Procedures Procedure Date / Time Performed Performing Clinician Sourc e HEMOGLOBIN A1C 2020-01-29 06:10:00 Amarjit Pelaezshahab Bell [place] [facility] LIPID PANEL 2020-01-29 06:10:00 Amarjit Pelaezshahab Bell [facility] HEPATITIS ACUTE PANEL 2020-01-29 06:10:00 Lelo Pelaez [place] [facility] GGT 2020-01-29 06:10:00 Lelo Pelaez [facility] MAGNESIUM LEVEL 2020-01-29 06:10:00 Amarjit Pelaeza Ray [facility] HIV AG/AB COMBINATION 2020-01-29 06:10:00 Amarjit Pelaeza Ray [place] [facility] Encounters Start End Encounter Admission Attending Care Care Encounter Source Date/Time Date/Time Type Type Clinicians Facility Department ID 2019-12-28 Inpatient 3 Mo Ted [facility] [id number] [facility] 22:04:00 Ted Hassan [id number] 2020-01-28 2020-02-01 Inpatient [facility] [id number] [place] 00:00:00 00:00:00 ROSI [address] 2019-12-28 2020-01-02 Inpatient 3 Ted Hassan [facility] PSY [id number] [facility] 22:04:00 17:20:00 Ted Hassan 2019-11-09 2019-11-10 Emergency Martha [facility] [id number] 23:06:12 01:26:00 Clovis Huang [id number] [place] 4.2.7.2.686 [place] [id number] 2019-09-29 2019-09-29 Emergency Singer [facility] [id number] 09:39:50 11:47:00 Johan [place] [id number] [place] 4.2.7.2.686 [place] [id number] 2019-06-16 2019-06-16 Emergency Fatimah [facility] [id number] 07:08:27 08:57:00 Nadine Huang [id number] [place] 4.2.7.2.686 [place] [id number] 2019-06-15 2019-06-15 Emergency Shelley Shahid [facility] [id number] 11:30:00 13:30:00 Margarita [place]ton [id number] [place] 4.2.7.2.686 [place] [id number] 2019-06-15 2019-06-15 Orders Doctor MCGINNIS [id number] 00:00:00 00:00:00 Only Unassigned, KAY [id number] [place] [facility] 4.2.7.2.686 [id number] 2019-06-06 2019-06-06 Letter Clinic, [facility] [id number] 00:00:00 00:00:00 (Out) Neurology HEALTH [id number] Continuity CLINICS 4.2.7.2.686 [id number] 2019 2019 Urgent [facility] [id number] 10:16:26 10:55:[address] [facility] [id number] Surgical 4.2.7.2.686 Special [id number] teddy Khai Sal 2019 2019 Orders Doctor RAS [id number] 00:00:00 00:00:00 Only UnassignedKAY [id number] [place] [facility] 4.2.7.2.686 [id number] [id number] 2019-01-24 2019-01-24 Emergency [facility] [id number] 15:49:15 22:27:00 Anitra Brownlee Sal [id number] [place] 4.2.7.2.686 [place] [id number] [id number] 2019-01-24 2019-01-24 Orders Doctor RAS [id number] 00:00:00 00:00:00 Only Unassigned, KAY 350.1.13.10 [place] [address]2.686 [id number] 2018-12-21 2018-12-21 Emergency [place], [facility] [id number] 17:07:20 19:42:00 Dejah Sal 350.1.13.10 [place] 4.2.7.2.686 [place] [id number] 2018-12-21 2018-12-21 Orders Doctor RAS [id number] 00:00:00 00:00:00 Only Unassigned, KAY [id number] [place] [address].686 [id number] Results Test Description Test Time Test Comments Results Result Comments Source Hepatitis acute panel 2020-01-29 09:42:25 Test Item Value Reference Range Interpretation Comme nts Hepatitis A IgM (test code = 49079-4) Non-reactive Non-reactive Hepatitis B core IgM (test code = 67548-4) Non-reactive Non-reactiv e Hepatitis B surface Ag (test code = 5195-3) Non-reactive Non-reacti ve Hepatitis C Ab (test code = 93650-4) Non-reactive Non-reactive [facility] Ag/Ab [id number] 09:42:25 Test Item Value Reference Range Interpretation Comments HIV Ag/Ab combination (test code Non-reactive Non-reactive = 5299) [facility] MethodistHemoglobin [id number] 08:59:44 Test Item Value Reference Range Interpretation Comments Hemoglobin A1C (test 5.5 % 4-5.6 HbA1c c utoffs for code = 07340-4) diagnosing d iabetes:4.0% - 5.6% = normal 5.7% - 6.4% = increase d risk for diabetes (prediabetes)9> =6.5% = jawcuumd7Taywq for glycemic contro l (ADA 2016)< 7.0% Ta rget for non faviola lts with diabetes. More or less stringent targe ts may be appropriate for individual mary ents. <7.5% Target for Children and ad olescents with type 1 lara betes. Cruz MethodistLipid [id number] 08:18:33 Test Item Value Reference Interpretation Comments [...] (mg/dL) interpretation (test < 200 code = 69919-4) Desirable 200-239 Borderline -high >=240 Hi gh [...] mg/dL) Lab Interpretation Abnormal (test code = 23265-4) Cruz [id number] 08:18:33 Test Item Value Reference Range Interpretation Comments GGT (test code = 2324-2) 141 U/L 0-59 H Lab Interpretation (test code = Abnormal 74265-0) Anthony AlmeidaMagnesium [id number] 08:18:33 Test Item Value Reference Range Interpretation Comments Magnesium (test code = 22986-6) 2.1 mg/dL 1.6-2.6 [place] MethodistRPR [id number] 16:27:39 Test Item Value Reference Range Interpretation Comments RPR Qual (test code = RPR Qual) Non-Reactive Non-Reactive Reactive Control (test code = Reactive Reactive Control) Weak Reactive Control (test Weak Reactive code = Weak Reactive Control) Non-Reactive Control (test code Non-Reactive = Non-Reactive Control) Lot # (test code = Lot #) [id number] N Expiration Dt (test code = 02-07-2021 N Expiration Dt) Lipid [id number] 07:26:04 Test Item Value Reference Range Interpretation [...] LDL/HDL Ratio=L DL Calc/HDL Chol Thyroid Stimulating [id number] 07:26:04 Test Item Value Reference Range Interpretation Comments TSH (test code = TSH) 1.757 mcIU/mL 0.550-4.780 Hemoglobin [id number] 07:26:03 Test Item Value Reference Range Interpretation Comments Hemoglobin A1c (test code 4.9 % 4.0-5.8 Di abetic >=6.5 = Hemoglobin A1c) %Prediabet es 5.7-6.4 %Normal <5.7 % [facility], [facility], [id number] 14:45:00FINAL REPORT PROCEDURE: Rest/Stress MYOCARDIAL PERFUSION SPECT with treadm ill\XA9\ CPT CODE: 88536 INDICATION: Chest pain HISTORY: Cardiac risk factors: [...] 5. Normal extracardiactracer distribution. 6. No previous [facility] study for comparison. NONINVASIVE RISK STRATIFICATION: The above findings are considered low risk (<1% annual mortality rate) based on the following criterion:- Normal or small myocardial perfusion defect at rest or with stress(JACC. 2012;59(9):857-81.) Signed: Albert Ruvalcaba MDReport Verified Date/Time: 03/17/2017 14:45:11 Reading Location: [address] Reading Room HEMOGLOBIN [id number] 08:29:00 Test Item Value Reference Range Interpretation Comments HEMOGLOBIN A1C (BEAKER) (test code = 5.5 % 4.3-6.1 368) CREATINE KINASE (CK), TOTAL AND [id number] 02:45:00 Test Item Value Reference Range Interpretation Comments CREATINE KINASE TOTAL (BEAKER) 34 U/L 29-200 (test code = 380) CREATINE KINASE-MB (BEAKER) (test 0.4 ng/mL 0.0-6.6 code = 750) CREATINE KINASE-MB INDEX (BEAKER) 1.2 % (test code = 395) CK-MB Reference Range:<6.7 Normal6.7-10.0 Borderline>10.0 AbnormalTROPONIN [id number] 02:45:00 Test Item Value Reference Range Interpretation [...] and persistent tachyarrhythmia.RAD, CHEST, 1 VIEW, NON [id number] 20:40:00Reason for exam:->chest painShould this be performed at the bedside?->YesFINAL REPORT EXAMINATION: AP PORTABLE CHEST RADIOGRAPH CLINICAL INDICATION:Chest pain IMPRESSION: Compared with 04/30/2016. No evidence of focal lung consolidation, pulmonary edema or pleural effusion. The heart size is normal. Mediastinal contours are sharp. No evidence of an acute osseous abnormality or pneumothorax. Signed: Santhosh Castle MDReport Verified Date/Time: 03/16/2017 20:40:21 Reading Location: [address] Reading Room B-TYPE NATRIURETIC FACTOR (BNP)2017-03-16 20:30:00 Test Item Value Reference Range Interpretation Comments B-TYPE NATRIURETIC PEPTIDE (BEAKER) < pg/mL 0-100 (test code = 700) COMPREHENSIVE METABOLIC [id number] 20:30:00 Test Item Value Reference Range Interpretation [...] ATED GFR. CREATINE KINASE (CK), TOTAL AND [id number] 20:28:00 Test Item Value Reference Range Interpretation Comments CREATINE KINASE TOTAL (BEAKER) 50 U/L 29-200 (test code = 380) CREATINE KINASE-MB (BEAKER) (test 0.5 ng/mL 0.0-6.6 code = 750) CREATINE KINASE-MB INDEX (BEAKER) 1.0 % (test code = 395) CK-MB Reference Range:<6.7 Normal6.7-10.0 Borderline>10.0 AbnormalTROPONIN [id number] 20:28:00 Test Item Value Reference Range Interpretation [...] failure, acidosis, acute neurological disease, and persistent tachyarrhythmia.[id number] 20:21:00 Test Item Value Reference Range Interpretation Comments MAGNESIUM (BEAKER) 2.2 mg/dL 1.6-2.6 Specimen slightly (test code = 627) hemolyzed [id number] 20:21:00 Test Item Value Reference Range Interpretation Comments PHOSPHORUS (BEAKER) 3.9 mg/dL 2.3-4.7 Specimen slightly (test code = 604) hemolyzed LIPID [id number] 20:21:00 Test Item Value Reference Range Interpretation [...] Borderline 130-159 High 160-189 Very High >=190PROTHROMBIN TIME/[id number] 20:07:00 Test Item Value Reference Range Interpretation Comments PROTIME (BEAKER) (test code = 13.0 seconds 11.7-14.7 759) INR (BEAKER) (test code = 370) 1.0 <=5.9 RECOMMENDED COUMADIN/WARFARIN INR THERAPY RANGESSTANDARD DOSE: 2.0 - 3.0 Includes: PROPHYLAXIS forvenous thrombosis, systemic embolization; TREATMENT for venous thrombosis and/or pulmonary embolus.HIGH RISK: Target INR is 2.5-3.5 for patients with mechanical heart valves.[id number] 20:07:00 Test Item Value Reference Range Interpretation Comments PARTIAL THROMBOPLASTIN TIME 26.9 seconds 22.5-36.0 (BEAKER) (test code = 760) CBC W/PLT COUNT & AUTO [id number] 19:57:00 Test Item Value Reference Range Interpretation [...] % 0-1 PERCENT (BEAKER) (test code = 7712)
[2020-06-15] MEDS ORDERED: LORAZEPAM 1 MG TABLET ONE (08:25)
--- NOTE | 2020-06-15 09:28 | EDPHYS ---
Physician Documentation [facility] Name: Srini Simpson Age: 35 yrs Sex: Male : 1985 Arrival Date: 06/15/2020 Time: 04:47 Bed 30 Private MD: ED Physician Yusuf Kirk HPI: 06/15 08:03 This 35 yrs old Male presents to ER via Ambulatory with complaints of Heart rn Racing. 08:03 The patient presents with a history of heart racing, heart skipping beats. Context: The rn symptoms occur at rest. Onset: The symptoms/episode began/occurred this morning. Duration: The patient or guardian reports a single episode, that is still ongoing. Modifying factors: The symptoms are aggravated by anxiety, The symptoms are alleviated by nothing. Severity of symptoms: At their worst the symptoms were moderate in the emergency department the symptoms are unchanged. The patient has experienced similar episodes in the past. Reports seen last night here in ER for chest pain, felt better, discharged, now returns for palpitations, reports feels like his previous panic attacks, states has them daily if doesn't take his clonazepam, reports has a prescription waiting in pharmacy. No fever. No current chest pain. . Historical: - Allergies: 05:10 No Known Allergies; sg - PMHx: 05:10 Anxiety; Depression; Hypertension; Pyloric Stenosis; sg - Immunization history:: Adult Immunizations not up to date. - Social history:: Smoking status: Patient reports the use of cigarette tobacco products, Patient uses alcohol. - Family history:: not pertinent. - Hospitalizations: : No recent hospitalization is reported. ROS: 08:03 Constitutional: Negative for fever, chills, and weight loss, Eyes: Negative for injury, rn pain, redness, and discharge, Neck: Negative for injury, pain, and swelling, Cardiovascular: Negative for chest pain, and edema, Respiratory: Negative for shortness of breath, cough, wheezing, and pleuritic chest pain, Abdomen/GI: Negative for abdominal pain, nausea, vomiting, diarrhea, and constipation, Back: Negative for injury and pain, MS/Extremity: Negative for injury and deformity, Skin: Negative for injury, rash, and discoloration, Neuro: Negative for headache, weakness, numbness, tingling, and seizure. Exam: 08:03 Constitutional: This is a well developed, well nourished patient who is awake, alert, rn and in no acute distress. Head/Face: Normocephalic, atraumatic. Eyes: Pupils equal round and reactive to light, extra-ocular motions intact. Lids and lashes normal. Conjunctiva and sclera are non-icteric and not injected. Cornea within normal limits. Periorbital areas with no swelling, redness, or edema. Cardiovascular: Regular rate and rhythm. No pulse deficits. Respiratory: No increased work of breathing, no retractions or nasal flaring. Abdomen/GI: Soft, non-tender Skin: Warm, dry MS/ Extremity: Pulses equal, no cyanosis. Neuro: Awake and alert, GCS 15 08:15 ECG was reviewed by the Attending Physician. rn Vital Signs: 04:52 BP 146 / 106; Pulse 72; Resp 18 S; Pulse Ox 100% on R/A; sg 07:52 BP 162 / 97; Pulse 89; Resp 16; Temp 97.8; Pulse Ox 100% on R/A; iw MDM: 07:54 Patient medically screened. rn 09:27 Differential diagnosis: arrythmia, dehydration, stress disorder, anxiety. Data rn reviewed: vital signs, nurses notes, old medical records, lab test result(s), and as a result, I will discharge patient. Counseling: I had a detailed discussion with the patient and/or guardian regarding: the historical points, exam findings, and any diagnostic results supporting the discharge/admit diagnosis, the need for outpatient follow up, to return to the emergency department if symptoms worsen or persist or if there are any questions or concerns that arise at home. Response to treatment: the patient's symptoms have mildly improved after treatment, and as a result, I will discharge patient. Special discussion: I discussed with the patient/guardian in detail that at this point there is no indication for admission to the hospital. It is understood, however, that if the symptoms persist or worsen the patient needs to return immediately for re-evaluation. 06/15 08:00 Order name: EKG; Complete Time: 08:01 rn 06/15 08:00 Order name: EKG - Nurse/Tech; Complete Time: 08:53 rn EC:15 Rate is 67 beats/min. Rhythm is regular. QRS Millry is Normal. CO interval is normal. QRS rn interval is normal. QT interval is normal. No Q waves. T waves are Normal. No ST changes noted. Clinical impression: Normal ECG. Interpreted by me. Reviewed by me. Administered Medications: 08:10 Drug: Ativan 1 mg Route: PO; iw 09:48 Follow up: Response: No adverse reaction; Anxiety decreased iw Disposition: 06/15/20 09:28 Discharged to Home. Impression: Palpitations, Anxiety disorder, unspecified. - Condition is Stable. - Discharge Instructions: Panic Attacks, Palpitations. - Medication Reconciliation Form, Thank You Letter, Antibiotic Education, Prescription Opioid Use form. - Follow up: Private Physician; When: As needed; Reason: Recheck today's complaints, Re-evaluation by your physician. - Problem is new. - Symptoms have improved. Signatures: Hernesto Ayala RN RN sg Snow Rincon RN RN iw Yusuf Kirk MD MD drying machine operator package yarns: (The following items were deleted from the chart) 09:48 09:28 06/15/2020 09:28 Discharged to Home. Impression: Palpitations; Anxiety disorder, iw unspecified. Condition is Stable. Forms are Medication Reconciliation Form, Thank You Letter, Antibiotic Education, Prescription Opioid Use. Follow up: Private Physician; When: As needed; Reason: Recheck today's complaints, Re-evaluation by your physician. Problem is new. Symptoms have improved. rn
--- NOTE | 2020-06-15 09:28 | ER ---
Nurse's Notes [facility] Name: Srini Simpson Age: 35 yrs Sex: Male : 1985 Arrival Date: 06/15/2020 Time: 04:47 Bed 30 Private MD: Diagnosis: Palpitations;Anxiety disorder, unspecified Presentation: 06/15 04:52 Chief complaint: Patient states: "It feels like my heart is skippin", no other symptoms sg reported for triage at this time. Coronavirus screen: Client denies travel out of the [place] in the last 14 days. At this time, the client does not indicate any symptoms associated with coronavirus-19. Ebola Screen: Patient negative for fever greater than or equal to 101.5 degrees Fahrenheit, and additional compatible Ebola Virus Disease symptoms Patient denies exposure to infectious person. Patient denies travel to an Ebola-affected area in the 21 days before illness onset. No symptoms or risks identified at this time. Initial Sepsis Screen: Does the patient meet any 2 criteria? No. Patient's initial sepsis screen is negative. Does the patient have a suspected source of infection? No. Patient's initial sepsis screen is negative. Risk Assessment: Do you want to hurt yourself or someone else? Patient reports no desire to harm self or others. Note patient states was discharged to home from this ER x1 hour ago. Onset of symptoms was June 15, 2020. Care prior to arrival: None. Transition of care: patient was not received from another setting of care. 04:52 Acuity: CHRISTINE 4 sg 04:52 Method Of Arrival: Ambulatory sg Triage Assessment: 04:58 General: Appears in no apparent distress. well groomed, well developed, well nourished, sg Behavior is calm, cooperative, appropriate for age. Pain: Denies pain. Neuro: Level of Consciousness is awake, alert, obeys commands, Oriented to person, place, time, situation, Moves all extremities. Gait is steady, Facial symmetry appears normal. Cardiovascular: Reports palpitations, Patient's skin is warm and dry. Respiratory: Airway is patent Respiratory effort is even, unlabored, Respiratory pattern is regular, symmetrical. Derm: Skin is pink, warm \\T\\ dry. Musculoskeletal: Circulation, motion, and sensation intact. Range of motion: intact in all extremities. Historical: - Allergies: 05:10 No Known Allergies; sg - PMHx: 05:10 Anxiety; Depression; Hypertension; Pyloric Stenosis; sg - Immunization history:: Adult Immunizations not up to date. - Social history:: Smoking status: Patient reports the use of cigarette tobacco products, Patient uses alcohol. - Family history:: not pertinent. - Hospitalizations: : No recent hospitalization is reported. Screenin:45 Abuse screen: Denies threats or abuse. Denies injuries from another. Nutritional iw screening: No deficits noted. Tuberculosis screening: No symptoms or risk factors identified. Fall Risk None identified. Assessment: 08:30 General: Appears in no apparent distress. Behavior is calm, cooperative. Neuro: Level iw of Consciousness is awake, alert, obeys commands, Oriented to person, place, time, situation, Moves all extremities. Cardiovascular: Patient's skin is warm and dry. Respiratory: Respiratory effort is even, unlabored. GI: Abdomen is non-distended. Derm: Skin is intact, is healthy with good turgor. Musculoskeletal: Range of motion: intact in all extremities. 09:30 Reassessment: Patient appears in no apparent distress at this time. Patient and/or iw family updated on plan of care and expected duration. Pain level reassessed. Patient is alert, oriented x 3, equal unlabored respirations, skin warm/dry/pink. Patient states feeling better. Patient states symptoms have improved. Vital Signs: 04:52 BP 146 / 106; Pulse 72; Resp 18 S; Pulse Ox 100% on R/A; sg 07:52 BP 162 / 97; Pulse 89; Resp 16; Temp 97.8; Pulse Ox 100% on R/A; iw ED Course: 04:47 Patient arrived in ED. cl3 04:52 Arm band placed on. sg 05:10 Triage completed. sg 07:52 Snow Rincon, RN is Primary Nurse. iw 07:54 Yusuf Kirk MD is Attending Physician. rn 08:48 EKG done, by ED staff, reviewed by Yusuf Kirk MD. mh5 08:49 Patient has correct armband on for positive identification. Bed in low position. Call mh5 light in reach. Side rails up X 1. quality assurance monitor final on. Pulse ox on. NIBP on. 09:47 No provider procedures requiring assistance completed. Patient did not have IV access iw during this emergency room visit. Administered Medications: 08:10 Drug: Ativan 1 mg Route: PO; iw 09:48 Follow up: Response: No adverse reaction; Anxiety decreased iw Outcome: :28 Discharge ordered by . rn 09:47 Discharged to home ambulatory. iw 09:47 Condition: good 09:47 Discharge instructions given to patient, Instructed on discharge instructions, follow up and referral plans. Demonstrated understanding of instructions, follow-up care. 09:48 Patient left the ED. iw Signatures: Hernesto Ayala RN RN sg Williams, Irene, RN RN iw Nieto, Roman, MD MD rn Martinez, Maria [facility] Sharyn Wilson cl3
[2020-06-15 09:52] VITALS: O2SAT 100
[2020-06-15 09:53] VITALS: BP 162/97; TEMP 97.8
== END 2020-06-15 09:48 | disposition home or self-care (01) ==
LOC: ER 04:46
DX: F41.9 Anxiety disorder, unspecified (principal); I10 Essential (primary) hypertension; Z72.0 Tobacco use
CPT/HCPCS: 93005; 99284

== ENCOUNTER 2020-06-27 17:54 | Emergency (ER) | payer SELFPAY ==
--- NOTE | 2020-06-27 20:52 | EDPHYS ---
Physician Documentation [facility] Name: Srini Simpson Age: 35 yrs Sex: Male : 1985 Arrival Date: 06/27/2020 Time: 17:56 Bed 25 Private MD: ED Physician Yusuf Kirk HPI: 06/27 20:46 This 35 yrs old Male presents to ER via Ambulatory with complaints of Fall jmm Injury. 20:46 Details of fall: The patient fell from a height, porch. Onset: The symptoms/episode jmm began/occurred acutely, just prior to arrival. Associated injuries: The patient sustained left shoulder, left side of ribs. The patient has not experienced similar symptoms in the past. Patient states he slipped off his front porch, landing on his left shoulder. Denies hitting his head or LOC. . Historical: - Allergies: 18:21 No Known Drug Allergies; ll1 - PMHx: 18:21 Hypertension; Depression; Anxiety; Pyloric Stenosis; ll1 - PSHx: 18:21 pyloric stenosis repair.; ll1 - Immunization history:: Flu vaccine is up to date. - Social history:: Smoking status: Patient reports the use of cigarette tobacco products, smokes one-half pack cigarettes per day. ROS: 20:46 Constitutional: Negative for fever, chills, and weight loss, Cardiovascular: Negative jmm for chest pain, palpitations, and edema, Respiratory: Negative for shortness of breath, cough, wheezing, and pleuritic chest pain. 20:46 MS/extremity: Positive for pain. 20:46 All other systems are negative. Exam: 20:46 Constitutional: This is a well developed, well nourished patient who is awake, alert, jmm and in no acute distress. Head/Face: atraumatic. Eyes: EOMI, no conjunctival erythema appreciated ENT: Moist Mucus Membranes Neck: Trachea midline, Supple 20:46 Cardiovascular: Regular rate and rhythm. No edema appreciated Respiratory: Normal respirations, no respiratory distress appreciated Abdomen/GI: Non distended, soft Back: Normal ROM Skin: General appearance color normal 20:46 Chest/axilla: left pectoral pain on palpation. 20:46 Musculoskeletal/extremity: left ant shoulder pain, left shoulder held in internal rotation and adduction, no obvious deformity, full punch machine hand strength. NVI. 20:46 Skin: Appearance: Color: normal in color. 20:46 Neuro: Orientation: is normal, Mentation: is normal, Memory: is normal. 20:46 Psych: Behavior/mood is pleasant, cooperative. Vital Signs: 18:19 BP 147 / 106; Pulse 105; Resp 18; Temp 98.9; Pulse Ox 97% ; Weight 86.18 kg; Height 5 ll1 ft. 7 in. (170.18 cm); Pain 10/10; 21:05 BP 152 / 89; Pulse 98; Resp 16; Pulse Ox 98% on R/A; iw 18:19 Body Mass Index 29.76 (86.18 kg, 170.18 cm) ll1 Hillary Coma Score: 18:24 Eye Response: spontaneous(4). Verbal Response: oriented(5). Motor Response: obeys ll1 commands(6). Total: 15. Trauma Score (Adult): 18:24 Eye Response: spontaneous(1); Verbal Response: oriented(1); Motor Response: obeys ll1 commands(2); Systolic BP: > 89 mm Hg(4); Respiratory Rate: 10 to 29 per min(4); Hillary Score: 15; Trauma Score: 12 MDM: 20:31 Patient medically screened. [facility] 20:50 Data reviewed: vital signs, nurses notes. Counseling: I had a detailed discussion with nilson the patient and/or guardian regarding: the historical points, exam findings, and any diagnostic results supporting the discharge/admit diagnosis, radiology results, the need for outpatient follow up, to return to the emergency department if symptoms worsen or persist or if there are any questions or concerns that arise at home. ED course: Xrays dont appear to show a fracture. Advised to follow up with ortho for further evaluation. Patient is otherwise given strict return precautions. patient understood and agrees with the plan of care. . 06/27 19:08 Order name: XRAY Shoulder LEFT 2 view rn 06/27 19:08 Order name: XRAY Ribs LEFT rn 06/27 19:08 Order name: XRAY Chest (1 view) rn 06/27 20:46 Order name: Oliver; Complete Time: 21:03 [facility] Administered Medications: 20:41 Drug: [place] 10 mg-325 mg 1 tabs Route: PO; ea 21:00 Follow up: Response: No adverse reaction iw Disposition: 06/28 02:24 Co-signature as Attending Physician, Yusuf Kirk MD. rn Disposition: 06/27/20 20:51 Discharged to Home. Impression: Other sprain of shoulder joint. - Condition is Stable. - Discharge Instructions: Shoulder Sprain. - Prescriptions for orphenadrine citrate 100 mg Oral Tablet Sustained Release - take 1 tablet by ORAL route 2 times per day As needed; 20 tablet. - Medication Reconciliation Form, Thank You Letter, Antibiotic Education, Prescription Opioid Use form. - Follow up: Toño Solo MD; When: 2 - 3 days; Reason: Recheck today's complaints, Continuance of care, Re-evaluation by your physician. Signatures: Dispatcher [employer] EDMS Timmy Nelson PA PA jmm Nieto, Roman, MD MD rn Antunez, Elena RN Noel Calderón ea mw2 Pieter Wilson RN RN [facility] Snow Rincon RN iw Corrections: (The following items were deleted from the chart) 06/27 21:06 20:51 06/27/2020 20:51 Discharged to Home. Impression: Other sprain of shoulder joint. mw2 Condition is Stable. Forms are Medication Reconciliation Form, Thank You Letter, Antibiotic Education, Prescription Opioid Use. Follow up: Toño Solo; When: 2 - 3 days; Reason: Recheck today's complaints, Continuance of care, Re-evaluation by your physician. [facility]
--- NOTE | 2020-06-27 20:52 | ER ---
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 Pain with limited ROM of ll1 L shoulder, L lateral rib cage, and L pectoral pain since the fall. No head injury, no LOC. Got dizzy afterwards. Coronavirus screen: Client denies travel out of the [place] in the last 14 days. At this time, the client does not indicate any symptoms associated with coronavirus-19. Ebola Screen: Patient denies travel to an Ebola-affected area in the 21 days before illness onset. Initial Sepsis Screen: Does the patient meet any 2 criteria? HR > 90 bpm. No. Patient's initial sepsis screen is negative. Does the patient have a suspected source of infection? Yes: Bone or joint infection. Risk Assessment: Do you want to hurt yourself or someone else? Patient reports no desire to harm self or others. Onset of symptoms was June 27, 2020. 18:19 Method Of Arrival: Ambulatory 1 18:19 Acuity: CHRISTINE 3 1 18:23 Care prior to arrival: None. Mechanism of Injury: Fall. ll1 Trauma Activation: Not Applicable Physician: ED Physician; Name: ; Notified At: ; Arrived At: Physician: General Surgeon; Name: ; Notified At: ; Arrived At: Physician: Radiology; Name: ; Notified At: ; Arrived At: Physician: Respiratory; Name: ; Notified At: ; Arrived At: Physician: Lab; Name: ; Notified At: ; Arrived At: Historical: - Allergies: 18:21 No Known Drug Allergies; ll1 - PMHx: 18:21 Hypertension; Depression; Anxiety; Pyloric Stenosis; ll1 - PSHx: 18:21 pyloric stenosis repair.; ll1 - Immunization history:: Flu vaccine is up to date. - Social history:: Smoking status: Patient reports the use of cigarette tobacco products, smokes one-half pack cigarettes per day. Screenin:24 Abuse screen: Denies threats or abuse. Nutritional screening: No deficits noted. ll1 Tuberculosis screening: No symptoms or risk factors identified. 21:05 Fall Risk Fall in past 12 months (25 points). iw Assessment: 20:50 General: Appears in no apparent distress. Behavior is calm, cooperative. Pain: iw Complains of pain in left arm. Neuro: Level of Consciousness is awake, alert, obeys commands, Oriented to person, place, Moves all extremities. Cardiovascular: Patient's skin is warm and dry. Respiratory: Respiratory effort is even, unlabored, Respiratory pattern is regular. Derm: Skin is intact, is healthy with good turgor. Vital Signs: 18:19 BP 147 / 106; Pulse 105; Resp 18; Temp 98.9; Pulse Ox 97% ; Weight 86.18 kg; Height 5 ll1 ft. 7 in. (170.18 cm); Pain 10/10; 21:05 BP 152 / 89; Pulse 98; Resp 16; Pulse Ox 98% on R/A; iw 18:19 Body Mass Index 29.76 (86.18 kg, 170.18 cm) ll1 Ir[place] Coma Score: 18:24 Eye Response: spontaneous(4). Verbal Response: oriented(5). Motor Response: obeys ll1 commands(6). Total: 15. Trauma Score (Adult): 18:24 Eye Response: spontaneous(1); Verbal Response: oriented(1); Motor Response: obeys ll1 commands(2); Systolic BP: > 89 mm Hg(4); Respiratory Rate: 10 to 29 per min(4); Hillary Score: 15; Trauma Score: 12 ED Course: 17:56 Patient arrived in ED. rg4 18:21 Triage completed. ll1 18:22 Arm band placed on. ll1 19:34 XRAY Shoulder LEFT 2 view In Process Unspecified. EDMS 19:34 XRAY Ribs LEFT In Process Unspecified. EDMS 19:34 XRAY Chest (1 view) In Process Unspecified. EDMS 20:08 Timmy Nelson PA is PHCP. jmm 20:08 Mary Ro MD is Attending Physician. jmm 20:40 Yusuf Kirk MD is Attending Physician. jmm 20:40 Patient has correct armband on for positive identification. iw 20:49 Snow Rincon, ALTON is Primary Nurse. iw 20:51 Toño Solo MD is Referral Physician. [facility] 21:04 No provider procedures requiring assistance completed. Patient did not have IV access iw during this emergency room visit. Administered Medications: 20:41 Drug: [place] 10 mg-325 mg 1 tabs Route: PO; ea 21:00 Follow up: Response: No adverse reaction iw Outcome: 20:51 Discharge ordered by . nilson 21:05 Discharged to home ambulatory. iw 21:05 Condition: good 21:05 Discharge instructions given to patient, Instructed on discharge instructions, follow up and referral plans. medication usage, Demonstrated understanding of instructions, follow-up care, medications, Prescriptions given X 1. 21:06 Patient left the ED. 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 Limited ROM of L ll1 shoulder, L rib cage and L pectoral pain since the fall. No head injury, no LOC. Got dizzy after. ll1
[2020-06-27] MEDS ORDERED: HYDROCODONE/APAP 10/325 TAB ONE (20:56)
[2020-06-27 21:36] VITALS: TEMP 98.9
[2020-06-27 21:38] VITALS: BP 152/89; O2SAT 98
--- NOTE | 2020-06-28 08:18 | RAD REPORT ---
EXAM DESCRIPTION: RAD - Ribs Left - 06/27/2020 7:35 pm CLINICAL HISTORY: Trip and fall, left rib and left shoulder pain COMPARISON: None. FINDINGS: No displaced rib fracture is seen and no non-displaced rib fractures suspected. No aggress evy rib lesion. No underlying pneumothorax, effusion, infiltrate or pulmonary contusion. IMPRESSION: Negative left rib series.
--- NOTE | 2020-06-28 08:19 | RAD REPORT ---
EXAM DESCRIPTION: RAD - Chest Single View - 06/27/2020 7:35 pm CLINICAL HISTORY: BLUNT CHEST TRAUMA, trip and fall COMPARISON: Portable June 15 TECHNIQUE: AP portable chest image was obtained 06/27/2020 7:35 pm . FINDINGS: Lungs are clear. Heart and vasculature are normal. No measurable pleural effusion and no p neumothorax. No acute bony abnormality seen. No acute aortic findings suspected. IMPRESSION: No acute cardiopulmonary process.
--- NOTE | 2020-06-28 08:20 | RAD REPORT ---
EXAM DESCRIPTION: RAD - Shoulder Left 2 View - 06/27/2020 7:34 pm CLINICAL HISTORY: PAIN COMPARISON: Shoulder Left 2 View dated 05/06/2015 TECHNIQUE: Internal and external rotation views of the left shoulder were obtained. FINDINGS: There is no acute fracture or dislocation. AC joint is normal in appearance. No acute or s uspicious findings. IMPRESSION: Negative two-view left shoulder examination for acute findings.
== END 2020-06-27 21:06 | disposition home or self-care (01) ==
LOC: ER 17:54
DX: S43.492A Other sprain of left shoulder joint, initial encounter (principal); W17.89XA Other fall from one level to another, initial encounter; Y93.9 Activity, unspecified; Y92.018 Other place in single-family (private) house as the place of occurrence of the external cause; F17.210 Nicotine dependence, cigarettes, uncomplicated
CPT/HCPCS: 71045; 99283

== ENCOUNTER 2020-07-06 00:37 | Emergency (ER) | payer SELFPAY ==
--- OUTSIDE RECORDS SUMMARY | 2020-07-06 00:41 | XMS REPORT | Continuity of Care Document ---
:1985 Author Organization [facility] t Address [address] [place] [address] Dr. [address]. [address] [place] [address] Care Team Providers Name Role Phone Maame Luke Primary Care Physician Ernie Hassan Attending Clinician Unavailable Ernie Hassan Attending Clinician Unavailable Deion Rincon DO Attending Clinician Margarita Marroquin Attending Clinician Ashlie BELTRÁN, M. Attending Clinician Lexy Thomas MD Attending Clinician Singer LAW Attending Clinician Fatimah BELTRÁN S Attending Clinician Doctor Unassigned, Name Attending Clinician Unavailable Clinic, Neurology Continuity Attending Clinician UnavailLindsey DAVENPORT Attending Clinician Chantel DUNLAP R Attending Clinician Jeremiah DAVENPORT Attending Clinician Joseph GARCIA Attending Clinician Unavailable Ernie Hassan Admitting Clinician Unavailable ASHLIE Admitting Clinician Unavailable Joseph GARCIA Admitting Clinician Unavailable Problems Condition Condition Condition Status Onset Resolution Last Treating Co mments Source Name Details Category Date Date Treatment Clinician Date Alcohol Alcohol Disease Active [place] dependence dependence 01-28 Me thodi with with 00:00: st uncomplica uncomplica 00 luis luis withdrawal withdrawal Suicide Suicide Disease Active [place] attempt by attempt by 01-28 Me thodi alcohol alcohol 00:00: st poisoning poisoning 00 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 Family History Family Member Diagnosis Comments Start Date Stop Date Source Natural father Heart attack [facility] Paternal grandfather Heart attack [facility] Maternal aunt Depression [place] [facility] Maternal uncle Alcohol abuse [place] [facility] Maternal uncle Depression [place] [facility] Maternal uncle Suicide Attempts [place] [facility] Natural mother Alcohol abuse [place] [facility] Social History Social Habit Start Date Stop Date Quantity Comments Source History of tobacco 1995-01-27 Cigarette Smoker [place] use 00:00:00 [facility] Alcohol Comment socially [facility] Sex Assigned [facility] Cigarette 2020-01-28 2020-01-28 [place] pack-years 00:00:00 00:00:00 [facility] Cigarettes smoked 2017-03-16 2017-03-16 [facility] - current (pack per 00:00:00 00:00:00 Medical Center day) - Reported Tobacco use and 2017-03-16 2017-03-[address] [facility] - exposure 00:00:00 00:00:00 [facility] Alcohol intake 2017-03-16 2017-03-[address] [facility] Ray Albakes - 00:00:00 00:00:00 of alcohol [facility] (finding) Smoking Status Start Date Stop Date Source Current every day smoker 2017-03-16 00:00:00 [facility] Medications Ordered Filled Start Stop Current Ordering [...] 7 days .major depressive disorder. nicotine 2019- No smoking 2mg Q2H Chew 1 Ori ston polacrilex 01-31 cessation each (2 mg Methodi (NICORETTE) 00:00: 23:59 total) st 2 mg gum 00 :00 every 2 (two) hours as needed for smoking cessation for up to 30 days .stop smoking. metoprolol 2019- No hypertensio 50mg Q.5D Take 1 [place] tartrate 01-31 n tablet (50 Meth herminio (LOPRESSOR) 00:00: 23:59 mg total) st 50 mg 00 :00 by mouth tablet BID at 0700, 1900 for 30 days .high blood pressure. busPIRone 2019- No generalized 7.5mg Q.5D Take 1 [place] (BUSPAR) 01-31 anxiety tablet Metho di 7.5 MG 00:00: 23:59 disorder (7.[address] tablet 00 :00 total) by mouth 2 (two) times a day for 7 days .repeated episodes of anxiety. Immunizations Ordered Immunization Filled Immunization Date Status Commen ts Source Name Name FLUCELVAX QUAD PF 2020-01-28 Completed [place] 00:00:00 [facility] Vital Signs Vital Name Observation Time Observation Value Comments Source Body weight 2020-02-01 07:04:00 85.548 kg Anthony Almeida BMI 2020-02-01 07:04:00 29.54 kg/m2 Anthony Almeida Systolic blood 2020-02-01 06:09:39 138 mm[Hg] [place] [facility] pressure Diastolic blood 2020-02-01 06:09:39 78 mm[Hg] [place] [facility] pressure Heart rate 2020-02-01 06:09:39 62 /min [facility] Body temperature 2020-02-01 06:09:39 36.5 Siobhan [place] [facility] Respiratory rate 2020-02-01 06:09:39 18 /min [place] [facility] Oxygen saturation in 2020-02-01 06:09:39 98 /min [facility] Arterial blood by Pulse oximetry Body height 2020-01-28 14:00:00 170.2 cm Anthony Almeida Procedures Procedure Date / Time Performed Performing Clinician Sourc e HEMOGLOBIN A1C 2020-01-29 06:10:00 [facility] LIPID PANEL 2020-01-29 06:10:00 [facility] HEPATITIS ACUTE PANEL 2020-01-29 06:10:00 Lelo [facility] GGT 2020-01-29 06:10:00 [facility] MAGNESIUM LEVEL 2020-01-29 06:10:00 [facility] HIV AG/AB COMBINATION 2020-01-29 06:10:00 Lelo Pelaez [facility] Encounters Start End Encounter Admission Attending Care Care Encounter Source Date/Time Date/Time Type Type Clinicians Facility Department ID 2019-12-28 Inpatient 3 Ted Hassan [facility] PSY [id number] [facility] 22:04:00 Ted Hassan [id number] 2020-06-30 2020-06-30 Emergency Sergey, [facility] [id number] 05:26:00 10:11:00 Ciera Huang [id number] [place] 4.2.7.2.686 [place] [id number] 2020-06-23 2020-06-23 Emergency Shelley Shahid [facility] [id number] 13:46:00 15:46:00 Margarita Huang [id number] [place] 4.2.7.2.686 [place] [id number] 2020-01-28 2020-02-01 Inpatient [facility] [id number] [place] 00:00:00 00:00:00 ROSI Jo Method i 2019-12-28 2020-01-02 Inpatient 3 Ted Hassan [facility] PSY [id number] [facility] 22:04:00 17:20:00 Ted Hassan 2019-11-09 2019-11-10 [id number] 23:06:12 01:26:00 Clovis Huang [id number] [place] 4.2.7.2.686 [place] [id number] 2019-09-29 2019-09-29 [facility] [id number] 09:39:50 11:47:00 Johan Huang [id number] [place] 4.2.7.2.686 [place] [id number] 2019-06-16 2019-06-16 [facility] [id number] 07:08:27 08:57:00 Nadine Huang [id number] [place] 4.2.7.2.686 [place] [id number] 2019-06-15 2019-06-15 Emergency Shelley Shahid [facility] [id number] 11:30:00 13:30:00 Margarita Huang [id number] [place] 4.2.7.2.686 [place] [id number] 2019-06-15 2019-06-15 Orders Doctor RAS [id number] 00:00:00 00:00:00 Only Unassigned, KAY [id number] [facility] 4.2.7.2.686 [id number] 2019-06-06 2019-06-06 Letter Clinic, [facility] [id number] 00:00:00 00:00:00 (Out) Neurology [facility] [id number] Continuity CLINICS 4.2.7.2.686 [id number] 2019 2019 Urgent [place], [facility] [id number] 10:16:26 10:55:54 Care [facility] [id number] Surgical 4.2.7.2.686 Count Includes [facility] [id number] teddy Huang 2019 2019 Orders Doctor MCGINNIS [id number] 00:00:00 00:00:00 Only Unassigned, KAY [id number] [place] [address] [id number] 2019-01-24 2019-01-24 Emergency [facility] [id number] 15:49:15 22:27:00 Anirta Brownlee Sal 350.1.13.10 [place] 4.2.7.2.686 [place] [id number] 2019-01-24 2019-01-24 Orders Doctor MCGINNIS [id number] 00:00:00 00:00:00 Only Unassigned, KAY 350.1.13.10 [place] [address].2.7.2.686 [id number] 2018-12-21 2018-12-21 Emergency [facility] [id number] 17:07:20 19:42:00 Dejah [place] 350.1.13.10 [place] [address].2.7.2.686 [place] [id number] 2018-12-21 2018-12-21 Orders Doctor MCGINNIS [id number] 00:00:00 00:00:00 Only Unassigned, KAY [id number] [place] [address].2.7.2.686 [id number] Results Test Description Test Time Test Comments Results Result Comments Source Hepatitis acute panel 2020-01-29 09:42:25 Test Item Value Reference Range Interpretation Comme nts Hepatitis A IgM (test code = 10586-4) Non-reactive Non-reactive Hepatitis B core IgM (test code = 90699-4) Non-reactive Non-reactiv e Hepatitis B surface Ag (test code = 5195-3) Non-reactive Non-reacti ve Hepatitis C Ab (test code = 44981-0) Non-reactive Non-reactive [place] [facility]/Ab [id number] 09:42:25 Test Item Value Reference Range Interpretation Comments HIV Ag/Ab combination (test code Non-reactive Non-reactive = 5299) [place] MethodistHemoglobin [id number] 08:59:44 Test Item Value Reference Range Interpretation Comments Hemoglobin A1C (test 5.5 % 4-5.6 HbA1c c utoffs for code = 11415-2) diagnosing d iabetes:4.0% - 5.6% = normal 5.7% - 6.4% = increase d risk for diabetes (prediabetes)9> =6.5% = wktxuokq0Nqhzc for glycemic contro l (ADA 2016)< 7.0% Ta rget for non faviola lts with diabetes. More or less stringent targe ts may be appropriate for individual mary ents. <7.5% Target for Children and ad olescents with type 1 lara betes. [place] MethodistLipid [id number] 08:18:33 Test Item Value Reference Interpretation Comments [...] (mg/dL) interpretation (test < 200 code = 19439-5) Desirable 200-239 Borderline -high >=240 Hi gh [...] mg/dL) Lab Interpretation Abnormal (test code = 91099-5) [place] [id number] 08:18:33 Test Item Value Reference Range Interpretation Comments GGT (test code = 2324-2) 141 U/L 0-59 H Lab Interpretation (test code = Abnormal 79004-1) Cruz DanaistMagnesium [id number] 08:18:33 Test Item Value Reference Range Interpretation Comments Magnesium (test code = 46931-8) 2.1 mg/dL 1.6-2.6 [place] MethodistRPR [id number] 16:27:39 Test Item Value Reference Range Interpretation Comments RPR Qual (test code = RPR Qual) Non-Reactive Non-Reactive Reactive Control (test code = Reactive Reactive Control) Weak Reactive Control (test Weak Reactive code = Weak Reactive Control) Non-Reactive Control (test code Non-Reactive = Non-Reactive Control) Lot # (test code = Lot #) [id number] N Expiration Dt (test code = 02-07-2021 N Expiration Dt) Thyroid Stimulating [id number] 07:26:04 Test Item Value Reference Range Interpretation Comments TSH (test code = TSH) 1.757 mcIU/mL 0.550-4.780 Lipid [id number] 07:26:04 Test Item Value Reference Range Interpretation [...] calculation is LDL/HDL Ratio=L DL Calc/HDL Chol Hemoglobin [id number] 07:26:03 Test Item Value Reference Range Interpretation Comments Hemoglobin A1c (test code 4.9 % 4.0-5.8 Di abetic >=6.5 = Hemoglobin A1c) %Prediabet es 5.7-6.4 %Normal <5.7 % [facility], [id number] 14:45:00FINAL REPORT PROCEDURE: Rest/Stress MYOCARDIAL PERFUSION SPECT with treadm ill\XA9\ CPT CODE: 33126 INDICATION: Chest pain HISTORY: Cardiac risk factors: [...] 5. Normal extracardiactracer distribution. 6. No previous [facility] study for comparison. NONINVASIVE RISK STRATIFICATION: The above findings are considered low risk (<1% annual mortality rate) based on the following criterion:- Normal or small myocardial perfusion defect at rest or with stress(JACC. 2012;59(9):857-81.) Signed: Albert Ruvalcaba MDReport Verified Date/Time: 03/17/2017 14:45:11 Reading Location: [address] Reading Room HEMOGLOBIN [id number] 08:29:00 Test Item Value Reference Range Interpretation Comments HEMOGLOBIN A1C (BEAKER) (test code = 5.5 % 4.3-6.1 368) CREATINE KINASE (CK), TOTAL AND [id number] 02:45:00 Test Item Value Reference Range Interpretation Comments CREATINE KINASE TOTAL (BEAKER) 34 U/L 29-200 (test code = 380) CREATINE KINASE-MB (BEAKER) (test 0.4 ng/mL 0.0-6.6 code = 750) CREATINE KINASE-MB INDEX (BEAKER) 1.2 % (test code = 395) CK-MB Reference Range:<6.7 Normal6.7-10.0 Borderline>10.0 AbnormalTROPONIN [id number] 02:45:00 Test Item Value Reference Range Interpretation [...] and persistent tachyarrhythmia.RAD, CHEST, 1 VIEW, NON [id number] 20:40:00Reason for exam:->chest painShould this be performed at the bedside?->YesFINAL REPORT EXAMINATION: AP PORTABLE CHEST RADIOGRAPH CLINICAL INDICATION:Chest pain IMPRESSION: Compared with 04/30/2016. No evidence of focal lung consolidation, pulmonary edema or pleural effusion. The heart size is normal. Mediastinal contours are sharp. No evidence of an acute osseous abnormality or pneumothorax. Signed: Santhosh Castle Verified Date/Time: 03/16/2017 20:40:21 Reading Location: [address] Reading Room B-TYPE NATRIURETIC FACTOR (BNP)2017-03-16 20:30:00 Test Item Value Reference Range Interpretation Comments B-TYPE NATRIURETIC PEPTIDE (BEAKER) < pg/mL 0-100 (test code = 700) COMPREHENSIVE METABOLIC [id number] 20:30:00 Test Item Value Reference Range Interpretation [...] ATED GFR. CREATINE KINASE (CK), TOTAL AND [id number] 20:28:00 Test Item Value Reference Range Interpretation Comments CREATINE KINASE TOTAL (BEAKER) 50 U/L 29-200 (test code = 380) CREATINE KINASE-MB (BEAKER) (test 0.5 ng/mL 0.0-6.6 code = 750) CREATINE KINASE-MB INDEX (BEAKER) 1.0 % (test code = 395) CK-MB Reference Range:<6.7 Normal6.7-10.0 Borderline>10.0 AbnormalTROPONIN [id number] 20:28:00 Test Item Value Reference Range Interpretation [...] failure, acidosis, acute neurological disease, and persistent tachyarrhythmia.[id number] 20:21:00 Test Item Value Reference Range Interpretation Comments MAGNESIUM (BEAKER) 2.2 mg/dL 1.6-2.6 Specimen slightly (test code = 627) hemolyzed [id number] 20:21:00 Test Item Value Reference Range Interpretation Comments PHOSPHORUS (BEAKER) 3.9 mg/dL 2.3-4.7 Specimen slightly (test code = 604) hemolyzed LIPID [id number] 20:21:00 Test Item Value Reference Range Interpretation [...] Borderline 130-159 High 160-189 Very High >=190PROTHROMBIN [id number] 20:07:00 Test Item Value Reference Range Interpretation Comments PROTIME (BEAKER) (test code = 13.0 seconds 11.7-14.7 759) INR (BEAKER) (test code = 370) 1.0 <=5.9 RECOMMENDED COUMADIN/WARFARIN INR THERAPY RANGESSTANDARD DOSE: 2.0 - 3.0 Includes: PROPHYLAXIS forvenous thrombosis, systemic embolization; TREATMENT for venous thrombosis and/or pulmonary embolus.HIGH RISK: Target INR is 2.5-3.5 for patients with mechanical heart valves.[id number] 20:07:00 Test Item Value Reference Range Interpretation Comments PARTIAL THROMBOPLASTIN TIME 26.9 seconds 22.5-36.0 (BEAKER) (test code = 760) CBC W/PLT COUNT & AUTO [id number] 19:57:00 Test Item Value Reference Range Interpretation [...] % 0-1 PERCENT (BEAKER) (test code = 5102)
[2020-07-06 02:33] LABS: Absolute Lymphocytes (CBC) 2.2 K/uL (0.7-4.9); Basophils % 1.3 % (0-1.3); Hematocrit 39.6 % (39.6-49.0); Lymphocytes % 31.8 % (15.3-44.8)
[2020-07-06] MEDS ORDERED: ASPIRIN EC 81 MG TAB PO ONE (02:36)
[2020-07-06] MEDS ORDERED: LORAZEPAM 1 MG TABLET ONE (02:36)
[2020-07-06 02:44] LABS: ALT/SGPT 22 U/L (12-78); AST/SGOT 12 U/L (15-37); Albumin 3.3 g/dL (3.4-5.0); Alkaline Phosphatase 65 U/L (45-117); BUN Blood Urea Nitrogen 9 mg/dL (7-18); Bicarbonate 23 mmol/L (21-32); Bilirubin Total 0.2 mg/dL (0.2-1.0); Glucose Level 92 mg/dL (74-106); Potassium 3.8 mmol/L (3.5-5.1); Protein, Total 6.9 g/dL (6.4-8.2); Sodium Level 144 mmol/L (136-145); Troponin (Emerg Dept Use Only) < 0.02 ng/mL (0.0-0.045)
--- NOTE | 2020-07-06 04:32 | EDPHYS ---
Physician Documentation [facility] Name: Srini Simpson Age: 35 yrs Sex: Male : 1985 Arrival Date: 07/06/2020 Time: 00:38 Bed 18 Private MD: ED Physician Jeevan Shaw HPI: 07/06 02:04 This 35 yrs old Male presents to ER via Ambulatory with complaints of nehemias Palpitations, Dizziness. 02:04 The patient presents with a history of irregular heart beat, heart racing. Context: The nehemias symptoms occur at rest, during sleep. Onset: The symptoms/episode began/occurred just prior to arrival. Duration: The patient or guardian reports a single episode, that is still ongoing, but improving. Modifying factors: The symptoms are aggravated by anxiety, The symptoms are alleviated by nothing. Associated signs and symptoms: Pertinent positives: chest pain, lightheadedness. Severity of symptoms: At their worst the symptoms were mild in the emergency department the symptoms have improved mildly. The patient has experienced similar episodes in the past, a few times. Historical: - Allergies: 01:19 No Known Allergies; sg - Home Meds: 02:06 Klonopin 1 mg Oral tab 1 tab 2 times per day [Active]; metoprolol tartrate 50 mg Oral sf tab 1 tab 2 times per day [Active]; - PMHx: :19 Anxiety; Depression; Hypertension; Pyloric Stenosis; sg - PSHx: :19 pyloric stenosis repair.; sg - Immunization history:: Adult Immunizations not up to date. - Social history:: Smoking status: Patient reports the use of cigarette tobacco products. - Family history:: not pertinent. ROS: 02:04 Constitutional: Negative for fever, chills, and weight loss, Eyes: Negative for injury, nehemias pain, redness, and discharge, ENT: Negative for injury, pain, and discharge, Neck: Negative for injury, pain, and swelling, Respiratory: Negative for shortness of breath, cough, wheezing, and pleuritic chest pain, Abdomen/GI: Negative for abdominal pain, nausea, vomiting, diarrhea, and constipation, Back: Negative for injury and pain, : Negative for injury, bleeding, discharge, and swelling, MS/Extremity: Negative for injury and deformity, Skin: Negative for injury, rash, and discoloration, Neuro: Negative for headache, weakness, numbness, tingling, and seizure, Psych: Negative for depression, anxiety, suicide ideation, homicidal ideation, and hallucinations, Allergy/Immunology: Negative for hives, rash, and allergies, Endocrine: Negative for neck swelling, polydipsia, polyuria, polyphagia, and marked weight changes, Hematologic/Lymphatic: Negative for swollen nodes, abnormal bleeding, and unusual bruising. 02:04 Cardiovascular: Positive for chest pain. Exam: 02:04 Constitutional: This is a well developed, well nourished patient who is awake, alert, nehemias and in no acute distress. Head/Face: Normocephalic, atraumatic. Eyes: Pupils equal round and reactive to light, extra-ocular motions intact. Lids and lashes normal. Conjunctiva and sclera are non-icteric and not injected. Cornea within normal limits. Periorbital areas with no swelling, redness, or edema. ENT: Nares patent. No nasal discharge, no septal abnormalities noted. Tympanic membranes are normal and external auditory canals are clear. Oropharynx with no redness, swelling, or masses, exudates, or evidence of obstruction, uvula midline. Mucous membranes moist. Neck: Trachea midline, no thyromegaly or masses palpated, and no cervical lymphadenopathy. Supple, full range of motion without nuchal rigidity, or vertebral point tenderness. No Meningismus. Chest/axilla: Normal chest wall appearance and motion. Nontender with no deformity. No lesions are appreciated. Cardiovascular: Regular rate and rhythm with a normal S1 and S2. No gallops, murmurs, or rubs. Normal PMI, no JVD. No pulse deficits. Respiratory: Lungs have equal breath sounds bilaterally, clear to auscultation and percussion. No rales, rhonchi or wheezes noted. No increased work of breathing, no retractions or nasal flaring. Abdomen/GI: Soft, non-tender, with normal bowel sounds. No distension or tympany. No guarding or rebound. No evidence of tenderness throughout. Back: No spinal tenderness. No costovertebral tenderness. Full range of motion. Male : Normal genitalia with no discharge or lesions. Skin: Warm, dry with normal turgor. Normal color with no rashes, no lesions, and no evidence of cellulitis. 02:10 ECG was reviewed by the Attending Physician. [facility] Vital Signs: 01:32 Pulse 76; Resp 18; Temp 98.5; Pulse Ox 98% on R/A; Pain 4/10; sg 02:00 BP 148 / 98; Pulse 81; Resp 18; Pulse Ox 98% ; sf 03:00 BP 155 / 93; Pulse 65; Pulse Ox 95% ; sf 04:00 BP 148 / 96; Pulse 66; Resp 16; Pulse Ox 97% ; sf 04:30 BP 148 / 96; Pulse 90; Resp 18; Pulse Ox 96% ; sf MDM: 01:33 Patient medically screened. [facility] 02:06 NAYELI Risk Score: 1 - Known CAD. Differential diagnosis: arrythmia, dehydration. Data [facility] reviewed: vital signs, nurses notes, lab test result(s), EKG, radiologic studies, plain films. 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 Test interpretation: by ED physician or midlevel provider: ECG, plain radiologic studies. Counseling: I had a detailed discussion with the patient and/or guardian regarding: the historical points, exam findings, and any diagnostic results supporting the discharge/admit diagnosis, the presence of at least one elevated blood pressure reading (>120/80) during this emergency department visit, lab results, radiology results. 07/06 02:04 Order name: CBC with Diff [facility] 07/06 02:04 Order name: Comprehensive Metabolic Panel [facility] 07/06 02:04 Order name: Troponin (emerg Dept Use Only) [facility] 07/06 02:04 Order name: CBC with Automated Diff; Complete Time: 04:29 EDGA 07/06 02:05 Order name: Comprehensive Metabolic Panel; Complete Time: 04:29 ED[facility] 07/06 02:05 Order name: Troponin (Emerg Dept Use Only); Complete Time: 04:29 ED[facility] 07/06 01:34 Order name: EKG; Complete Time: 01:35 [facility] 07/06 01:34 Order name: EKG - Nurse/Tech; Complete Time: 02:06 [facility] 07/06 02:04 Order name: Chest Single View XRAY [facility] EC:10 Rate is 73 beats/min. Rhythm is regular. QRS [place] is Normal. MD interval is normal. QRS nehemias interval is normal. QT interval is normal. No Q waves. T waves are Normal. No ST changes noted. Clinical impression: NSR w/ Non-specific ST/T Changes and No evidence of ischemia. Interpreted by me. Reviewed by me. Administered Medications: 02: Drug: Aspirin 162 mg Route: PO; sf 03:06 Follow up: Response: No adverse reaction sf 02:21 Drug: Ativan 1 mg Route: PO; sf 03:06 Follow up: Response: Anxiety unchanged sf Disposition: 07/06/20 04:31 Discharged to Home. Impression: Palpitations, Anxiety disorder, unspecified. - Condition is Stable. - Discharge Instructions: Panic Attacks, Palpitations, Panic Attacks, Wwzq-qg-Yaot, Aspirin and Your Heart, Palpitations, Hnqh-ga-Lcde. - Prescriptions for Xanax 0.5 mg Oral Tablet - take 1 tablet by ORAL route every 8 hours As needed; 20 tablet. - Medication Reconciliation Form, Thank You Letter, Antibiotic Education, Prescription Opioid Use form. - Follow up: Private Physician; When: 2 - 3 days; Reason: Recheck today's complaints, Continuance of care, Re-evaluation by your physician. Follow up: Austin Martinez; When: 2 - 3 days; Reason: Recheck today's complaints, Continuance of care, Re-evaluation by your physician. - Problem is new. - Symptoms have improved. Signatures: Dispatcher [employer] EDHrenesto Jackson RN RN sg Anderson, Corey, MD MD cha Fitzpatrick, Steven, RN RN sf Corrections: (The following items were deleted from the chart) 04:51 04:31 07/06/2020 04:31 Discharged to Home. Impression: Palpitations; Anxiety disorder, sf unspecified. Condition is Stable. Discharge Instructions: Panic Attacks, Palpitations, Panic Attacks, Vigr-wg-Ehhz, Aspirin and Your Heart, Palpitations, Rkmd-ny-Onkb. Prescriptions for Xanax 0.5 mg Oral Tablet - take 1 tablet by ORAL route every 8 hours As needed; 20 tablet. and Forms are Medication Reconciliation Form, Thank You Letter, Antibiotic Education, Prescription Opioid Use. Follow up: Private Physician; When: 2 - 3 days; Reason: Recheck today's complaints, Continuance of care, Re-evaluation by your physician. Follow up: Austin Martinez; When: 2 - 3 days; Reason: Recheck today's complaints, Continuance of care, Re-evaluation by your physician. Problem is new. Symptoms have improved. nehemias
--- NOTE | 2020-07-06 04:32 | ER ---
Nurse's Notes [facility] Name: Srini Simpson Age: 35 yrs Sex: Male : 1985 Arrival Date: 07/06/2020 Time: 00:38 Bed 18 Private MD: Diagnosis: Palpitations;Anxiety disorder, unspecified Presentation: 07/06 01:19 Chief complaint: would like to be seen for palpitations and dizziness. Coronavirus sg screen: At this time, the client does not indicate any symptoms associated with coronavirus-19. Ebola Screen: Patient negative for fever greater than or equal to 101.5 degrees Fahrenheit, and additional compatible Ebola Virus Disease symptoms Patient denies exposure to infectious person. Patient denies travel to an Ebola-affected area in the 21 days before illness onset. No symptoms or risks identified at this time. Initial Sepsis Screen: Does the patient meet any 2 criteria? No. Patient's initial sepsis screen is negative. Does the patient have a suspected source of infection? No. Patient's initial sepsis screen is negative. Risk Assessment: Do you want to hurt yourself or someone else? Patient reports no desire to harm self or others. Onset of symptoms was July 06, 2020. Care prior to arrival: None. Transition of care: patient was not received from another setting of care. 01:19 Acuity: CHRISTINE 3 sg 01:19 Method Of Arrival: Ambulatory sg Historical: - Allergies: 01:19 No Known Allergies; sg - Home Meds: 02:06 Klonopin 1 mg Oral tab 1 tab 2 times per day [Active]; metoprolol tartrate 50 mg Oral sf tab 1 tab 2 times per day [Active]; - PMHx: 01:19 Anxiety; Depression; Hypertension; Pyloric Stenosis; sg - PSHx: 01:19 pyloric stenosis repair.; sg - Immunization history:: Adult Immunizations not up to date. - Social history:: Smoking status: Patient reports the use of cigarette tobacco products. - Family history:: not pertinent. Screenin:55 Abuse screen: Denies threats or abuse. Denies injuries from another. Nutritional sf screening: No deficits noted. Tuberculosis screening: No symptoms or risk factors identified. Never had TB. Possible symptoms: None Risk factors: None. Fall Risk None identified. No fall in past 12 months (0 pts). No secondary diagnosis (0 pts). No IV (0 pts). Ambulatory Aid- None/Bed Rest/Nurse Assist (0 pts). Gait- Normal/Bed Rest/Wheelchair (0 pts) Mental Status- Oriented to own ability (0 pts). Total Martinez Fall Scale indicates No Risk (0-24 pts). Assessment: 01:55 General: Appears in no apparent distress. comfortable, Behavior is cooperative, sf anxious. Pain: Denies pain. Neuro: No deficits noted. Level of Consciousness is awake, alert, Oriented to person, place, time, situation. Cardiovascular: Reports palpitations, Patient's skin is warm and dry. Rhythm is sinus rhythm. Respiratory: No deficits noted. Airway is patent Respiratory effort is even, unlabored, Respiratory pattern is regular, symmetrical. 03:06 Reassessment: No changes from previously documented assessment. Patient and/or family sf updated on plan of care and expected duration. Pain level reassessed. Patient is alert, oriented x 3, equal unlabored respirations, skin warm/dry/pink. Vital Signs: 01:32 Pulse 76; Resp 18; Temp 98.5; Pulse Ox 98% on R/A; Pain 4/10; sg 02:00 BP 148 / 98; Pulse 81; Resp 18; Pulse Ox 98% ; sf 03:00 BP 155 / 93; Pulse 65; Pulse Ox 95% ; sf 04:00 BP 148 / 96; Pulse 66; Resp 16; Pulse Ox 97% ; sf 04:30 BP 148 / 96; Pulse 90; Resp 18; Pulse Ox 96% ; sf ED Course: 00:38 Patient arrived in ED. bp1 01:20 Triage completed. sg 01:20 Arm band placed on. sg 01:32 Hernesto Thao, ALTON is Primary Nurse. sf 01:33 Jeevan Shaw MD is Attending Physician. nehemias 01:55 Patient has correct armband on for positive identification. Bed in low position. Call sf light in reach. Side rails up X 1. mail service coordinator on. Pulse ox on. NIBP on. Door closed. Noise minimized. Lights dimmed. Verbal reassurance given. 01:59 EKG done, by ED staff, reviewed by Jeevan Shaw MD. sf 02:08 Chest Single View XRAY Sent. sf 02:13 Initial lab(s) drawn, by me, sent to lab. sf 02:15 Chest Single View XRAY In Process Unspecified. EDMS 02:21 Troponin (emerg Dept Use Only) Sent. sf 02:21 Comprehensive Metabolic Panel Sent. sf 02:21 CBC with Diff Sent. sf 04:31 Austin Martinez MD is Referral Physician. [facility] 04:47 No provider procedures requiring assistance completed. Patient did not have IV access sf during this emergency room visit. Administered Medications: 02:21 Drug: Aspirin 162 mg Route: PO; sf 03:06 Follow up: Response: No adverse reaction sf 02:21 Drug: Ativan 1 mg Route: PO; sf 03:06 Follow up: Response: Anxiety unchanged sf Outcome: 04:31 Discharge ordered by . nehemias 04:50 Discharged to home ambulatory. sf 04:50 Condition: improved 04:50 Discharge instructions given to patient, Instructed on discharge instructions, follow up and referral plans. medication usage, Demonstrated understanding of instructions, follow-up care, medications, Prescriptions given X 1. 04:51 Patient left the ED. sf Signatures: Dispatcher [employer] EDMS Hernesto Ayala, Jeevan Marks RN, MD MD cha Paniauga, Brittany bp1 Fitzpatrick, Steven, ALTON RN sf Corrections: (The following items were deleted from the chart) 03:07 01:55 General: Appears in no apparent distress. comfortable, Behavior is calm, sf cooperative, sf
[2020-07-06 07:57] VITALS: TEMP 98.5
--- NOTE | 2020-07-06 07:58 | RAD REPORT ---
EXAM DESCRIPTION: RAD - Chest Single View - 07/06/2020 2:15 am CLINICAL HISTORY: CHEST PAIN COMPARISON: June 27 TECHNIQUE: AP portable chest image was obtained 07/06/2020 2:15 am . FINDINGS: Lung volumes are low but clear of a peripheral mass or consolidation. Heart size and vascu lature are accentuated by exam limitations. Significant failure or volume overload doubtful. No measu rable pleural effusion and no pneumothorax. No acute bony abnormality seen. No acute aortic findings suspected. IMPRESSION: Limited portable study without acute cardiopulmonary finding.
[2020-07-06 08:01] VITALS: BP 148/96
[2020-07-06 08:02] VITALS: O2SAT 96
--- NOTE | 2020-07-07 07:57 | EKG ---
Test Date: 2020-07-06 Test Time: 01:59:01 Driver Trainee: OLGA MEASUREMENT RESULTS: Intervals: Rate: 73 RI: 132 QRSD: 86 QT: 400 QTc: 440 Davis: P: 56 RI: 132 QRS: 49 T: 32 INTERPRETIVE STATEMENTS: Normal sinus rhythm Normal ECG Compared to ECG 06/15/2020 08:12:42 Sinus arrhythmia no longer present Electronically Signed On 07-07-20 07:54:47 ICE BAG ASSEMBLER by Austin Martinez
== END 2020-07-06 04:51 | disposition home or self-care (01) ==
LOC: ER 00:37
DX: F41.8 Other specified anxiety disorders (principal); I10 Essential (primary) hypertension; Z72.0 Tobacco use
CPT/HCPCS: 36415; 71045; 80053; 84484; 85025; 93005; 99284

== ENCOUNTER 2020-07-10 01:03 | Emergency (ER) | payer SELFPAY ==
--- OUTSIDE RECORDS SUMMARY | 2020-07-10 01:57 | XMS REPORT | Continuity of Care Document ---
:1985 Author Organization [facility] t Address [address] [place] [address] Dr. Jerome. 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 01-28 Me thodi pine use pine use 00:00: st disorder disorder 00 ЕЛЕНА ЕЛЕНА Disease Active [place] (generaliz (generaliz 01-28 Me thodi ed anxiety [...] Stop Date Source Natural father Heart attack [facility] Paternal grandfather Heart attack [facility] Maternal aunt Depression [place] Maternal uncle Alcohol abuse [facility] Jain Maternal uncle Depression [place] [facility] Maternal uncle Suicide Attempts [place] Natural mother Alcohol abuse [place] Jain Social History Social Habit Start Date Stop Date Quantity Comments Source History of tobacco 1995-01-27 Cigarette Smoker [place] use 00:00:00 Jain Alcohol Comment socially [facility] Sex Assigned At [place] Jain Cigarettes smoked 2020-01-28 2020-01-28 [place] current (pack per 00:00:00 00:00:[address] day) - Reported Cigarette 2020-01-28 2020-01-28 [place] pack-years 00:00:00 00:00:00 Jain Tobacco use and 2020-01-28 2020-01-28 Never used [place] exposure 00:00:00 00:00:00 Jain Alcohol intake 2020-01-28 2020-01-28 Current drinker [place] 00:00:00 00:00:00 of alcohol Jain (finding) Smoking Status Start Date Stop Date Source Current every day smoker 2020-01-28 00:00:00 Ori amorbrittany Almeida Medications Ordered Filled Start Stop Current [...] metoprolol No hypertensio 50mg Q.5D Take 1 [place] tartrate 01-31 n tablet (50 Meth herminio (LOPRESSOR) 00:00: 23:59 mg total) st 50 mg 00 :00 by mouth tablet BID at 0700, 1900 for 30 days .high blood pressure. busPIRone No generalized 7.5mg Q.5D Take 1 [place] (BUSPAR) 01-31 anxiety tablet Metho di 7.5 MG 00:00: 23:59 disorder (7.[address] tablet 00 :00 total) by mouth 2 (two) times a day for 7 days .repeated episodes of anxiety. Immunizations Ordered Immunization Filled Immunization Date Status Commen ts Source Name Name FLUCELVAX QUAD PF 2020-01-28 Completed [place] 00:00:00 Jain Vital Signs Vital Name Observation Time Observation Value Comments Source Body weight 2020-02-01 07:04:00 85.548 kg Anthony Almeida BMI 2020-02-01 07:04:00 29.54 kg/m2 Anthony Almeida Systolic blood 2020-02-01 06:09:39 138 mm[Hg] Asuncion Almeida pressure Diastolic blood 2020-02-01 06:09:39 78 mm[Hg] [place] Jain pressure Heart rate 2020-02-01 06:09:39 62 /min [place] Jain Body temperature 2020-02-01 06:09:39 36.5 Siobhan [place]ain Respiratory rate 2020-02-01 06:09:39 18 /min [place] Oxygen saturation in 2020-02-01 06:09:39 98 /min [place] Jain Arterial blood by Pulse oximetry Body height 2020-01-28 14:00:00 170.2 cm Anthony Almeida Procedures Procedure Date / Time Performed Performing Clinician Sourc e HEMOGLOBIN A1C 2020-01-29 06:10:00 Lelo Pelaez [facility] LIPID PANEL 2020-01-29 06:10:00 Lelo Pelaez [facility] HEPATITIS ACUTE PANEL 2020-01-29 06:10:00 Amarjit Pelaeza S [place] GGT 2020-01-29 06:10:00 Lelo Pelaez [facility] MAGNESIUM LEVEL 2020-01-29 06:10:00 Amarjit Pelaeza Ray [facility] HIV AG/AB COMBINATION 2020-01-29 06:10:00 Amarjit Pelaeza Ray [place] Encounters Start End Encounter Admission Attending Care Care Encounter Source Date/Time Date/Time Type Type Clinicians Facility Department ID 2019-12-28 Inpatient 3 Ted Hassan [facility] 12 [id number] [facility] 22:04:00 Ted Hassan [id number] 2020-06-30 2020-06-30 Emergency Sergey, [facility] [id number] 05:26:00 10:11:00 Ciera Huang [id number] [place] 4.2.7.2.686 [place] [id number] 2020-06-23 2020-06-23 Emergency Shelley Shahid [facility] [id number] 13:46:00 15:46:00 Margarita Huang [id number] [place] 4.2.7.2.686 [place] [id number] 2020-01-28 2020-02-01 Inpatient [facility] [id number] [place] 00:00:00 00:00:00 ROSI [address] [facility] [address] 2019-12-28 2020-01-02 Inpatient 3 Ted Hassan [facility] PSY [id number] [facility] 22:04:00 17:20:00 Ted Hassan 2019-11-09 2019-11-10 Emergency Martha, [facility] [id number] 23:06:12 01:26:00 Clovis Huang 350.1.13.10 [place] 4.2.7.2.686 [place] [id number] 2019-09-29 2019-09-29 Emergency , [facility] [id number] 09:39:50 11:47:00 Johan Sal 350.1.13.10 [place] 4.2.7.2.686 [facility] [id number] 2019-06-16 2019-06-16 Emergency Fatimah, [facility] [id number] 07:08:27 08:57:00 Nadine Huang 350.1.13.10 [place] 4.2.7.2.686 [facility] [id number] 2019-06-15 2019-06-15 Emergency Shelley Shahid [facility] [id number] 11:30:00 13:30:00 Margarita Sal 350.1.13.10 [place] 4.2.7.2.686 [facility] [id number] 2019-06-15 2019-06-15 Orders Doctor RAS [id number] 00:00:00 00:00:00 Only Unassigned, KAY 350.1.13.10 [place] [facility] 4.2.7.2.686 [id number] 2019-06-06 2019-06-06 Letter Clinic, [facility] [id number] 00:00:00 00:00:00 (Out) Neurology [facility] 350.1.13.10 [facility] 4.2.7.2.686 [id number] 2019 2019 Urgent [place], [facility] [id number] 10:16:26 10:55:[address] [facility] [id number] Surgical 2.7.2.686 [facility] [id number] teddy Huang 2019 2019 Orders Doctor RAS 1.2.840.114 [id number] 00:00:00 00:00:00 Only Unassigned, KAY 350.1.13.10 [place] [address].686 [id number] 2019-01-24 2019-01-24 Emergency [place], [facility] [id number] 15:49:15 22:27:00 Anitra [place] 350.1.13.10 [place] [address].2.7.2.686 [facility] [id number] 2019-01-24 2019-01-24 Orders Doctor MCGINNIS 1.2.840.114 [id number] 00:00:00 00:00:00 Only Unassigned, KAY 350.1.13.10 [place] [address]686 [id number] 2018-12-21 2018-12-21 Emergency [facility] [id number] 17:07:20 19:42:00 Dejah Huang 350.1.13.[address]2.686 [place] [id number] [id number] 2018-12-21 2018-12-21 Orders Doctor MCGINNIS 1.2.840.114 [id number] 00:00:00 00:00:00 Only Unassigned, KAY 350.1.13.10 [place] [address]686 [id number] Results Test Description Test Time Test Comments Results Result Comments Source Hepatitis acute panel 2020-01-29 09:42:25 Test Item Value Reference Range Interpretation Comme nts Hepatitis A IgM (test code = 03969-1) Non-reactive Non-reactive Hepatitis B core IgM (test code = 58708-6) Non-reactive Non-reactiv e Hepatitis B surface Ag (test code = 5195-3) Non-reactive Non-reacti ve Hepatitis C Ab (test code = 48609-2) Non-reactive Non-reactive [place]/Ab [id number] 09:42:25 Test Item Value Reference Range Interpretation Comments HIV Ag/Ab combination (test code Non-reactive Non-reactive = 5299) [place] MethodistHemoglobin [id number] 08:59:44 Test Item Value Reference Range Interpretation Comments Hemoglobin A1C (test 5.5 % 4-5.6 HbA1c c utoffs for code = 02089-8) diagnosing d iabetes:4.0% - 5.6% = normal 5.7% - 6.4% = increase d risk for diabetes (prediabetes)9> =6.5% = akeindys5Oridu for glycemic contro l (ADA 2016)< 7.0% Ta rget for non faviola lts with diabetes. More or less stringent targe ts may be appropriate for individual mary ents. <7.5% Target for Children and ad olescents with type 1 lara betes. [place] MethodistLipid [id number] 08:18:33 Test Item Value Reference Interpretation Comments [...] (mg/dL) interpretation (test < 200 code = 25472-3) Desirable 200-239 Borderline -high >=240 Hi gh [...] mg/dL) Lab Interpretation Abnormal (test code = 94643-1) Cruz [id number] 08:18:33 Test Item Value Reference Range Interpretation Comments GGT (test code = 2324-2) 141 U/L 0-59 H Lab Interpretation (test code = Abnormal 25129-0) [place] MethodistMagnesium [id number] 08:18:33 Test Item Value Reference Range Interpretation Comments Magnesium (test code = 63287-4) 2.1 mg/dL 1.6-2.6 [place] MethodistRPR [id number] 16:27:39 Test Item Value Reference Range Interpretation Comments RPR Qual (test code = RPR Qual) Non-Reactive Non-Reactive Reactive Control (test code = Reactive Reactive Control) Weak Reactive Control (test Weak Reactive code = Weak Reactive Control) Non-Reactive Control (test code Non-Reactive = Non-Reactive Control) Lot # (test code = Lot #) [id number] N Expiration Dt (test code = 02-07-2021 N Expiration Dt) Lipid [id number] 07:26:04 Test Item Value Reference Range Interpretation [...] LDL/HDL Ratio=L DL Calc/HDL Chol Thyroid Stimulating [id number] 07:26:04 Test Item Value Reference Range Interpretation Comments TSH (test code = TSH) 1.757 mcIU/mL 0.550-4.780 Hemoglobin [id number] 07:26:03 Test Item Value Reference Range Interpretation Comments Hemoglobin A1c (test code 4.9 % 4.0-5.8 Di abetic >=6.5 = Hemoglobin A1c) %Prediabet es 5.7-6.4 %Normal <5.7 % MYOCARD IMAGING, MULTI, [id number] 14:45:00FINAL REPORT PROCEDURE: Rest/Stress MYOCARDIAL PERFUSION SPECT with treadm ill\XA9\ CPT CODE: 49541 INDICATION: Chest pain HISTORY: Cardiac risk factors: [...] 5. Normal extracardiactracer distribution. 6. No previous [facility] study for comparison. NONINVASIVE RISK STRATIFICATION: The above findings are considered low risk (<1% annual mortality rate) based on the following criterion:- Normal or small myocardial perfusion defect at rest or with stress(JACC. 2012;59(9):857-81.) Signed: Albert Ruvalcabaort Verified Date/Time: 03/17/2017 14:45:11 Reading Location: [address] Reading Room HEMOGLOBIN [id number] 08:29:00 Test Item Value Reference Range Interpretation Comments HEMOGLOBIN A1C (BEAKER) (test code = 5.5 % 4.3-6.1 368) CREATINE KINASE (CK), TOTAL AND [id number] 02:45:00 Test Item Value Reference Range Interpretation Comments CREATINE KINASE TOTAL (BEAKER) 34 U/L 29-200 (test code = 380) CREATINE KINASE-MB (BEAKER) (test 0.4 ng/mL 0.0-6.6 code = 750) CREATINE KINASE-MB INDEX (BEAKER) 1.2 % (test code = 395) CK-MB Reference Range:<6.7 Normal6.7-10.0 Borderline>10.0 AbnormalTROPONIN [id number] 02:45:00 Test Item Value Reference Range Interpretation [...] and persistent tachyarrhythmia.RAD, CHEST, 1 VIEW, NON [id number] 20:40:00Reason for exam:->chest painShould this be performed at the bedside?->YesFINAL REPORT EXAMINATION: AP PORTABLE CHEST RADIOGRAPH CLINICAL INDICATION:Chest pain IMPRESSION: Compared with 04/30/2016. No evidence of focal lung consolidation, pulmonary edema or pleural effusion. The heart size is normal. Mediastinal contours are sharp. No evidence of an acute osseous abnormality or pneumothorax. Signed: Santhosh Castle [facility] Verified Date/Time: 03/16/2017 20:40:21 Reading Location: [address] Reading Room B-TYPE NATRIURETIC FACTOR (BNP)2017-03-16 20:30:00 Test Item Value Reference Range Interpretation Comments B-TYPE NATRIURETIC PEPTIDE (BEAKER) < pg/mL 0-100 (test code = 700) COMPREHENSIVE METABOLIC [id number] 20:30:00 Test Item Value Reference Range Interpretation [...] ATED GFR. CREATINE KINASE (CK), TOTAL AND [id number] 20:28:00 Test Item Value Reference Range Interpretation Comments CREATINE KINASE TOTAL (BEAKER) 50 U/L 29-200 (test code = 380) CREATINE KINASE-MB (BEAKER) (test 0.5 ng/mL 0.0-6.6 code = 750) CREATINE KINASE-MB INDEX (BEAKER) 1.0 % (test code = 395) CK-MB Reference Range:<6.7 Normal6.7-10.0 Borderline>10.0 AbnormalTROPONIN [id number] 20:28:00 Test Item Value Reference Range Interpretation [...] failure, acidosis, acute neurological disease, and persistent tachyarrhythmia.[id number] 20:21:00 Test Item Value Reference Range Interpretation Comments MAGNESIUM (BEAKER) 2.2 mg/dL 1.6-2.6 Specimen slightly (test code = 627) hemolyzed [id number] 20:21:00 Test Item Value Reference Range Interpretation Comments PHOSPHORUS (BEAKER) 3.9 mg/dL 2.3-4.7 Specimen slightly (test code = 604) hemolyzed LIPID [id number] 20:21:00 Test Item Value Reference Range Interpretation [...] Borderline 130-159 High 160-189 Very High >=190PROTHROMBIN TIME/[id number] 20:07:00 Test Item Value Reference Range Interpretation Comments PROTIME (BEAKER) (test code = 13.0 seconds 11.7-14.7 759) INR (BEAKER) (test code = 370) 1.0 <=5.9 RECOMMENDED COUMADIN/WARFARIN INR THERAPY RANGESSTANDARD DOSE: 2.0 - 3.0 Includes: PROPHYLAXIS forvenous thrombosis, systemic embolization; TREATMENT for venous thrombosis and/or pulmonary embolus.HIGH RISK: Target INR is 2.5-3.5 for patients with mechanical heart valves.[id number] 20:07:00 Test Item Value Reference Range Interpretation Comments PARTIAL THROMBOPLASTIN TIME 26.9 seconds 22.5-36.0 (BEAKER) (test code = 760) CBC W/PLT COUNT & AUTO [id number] 19:57:00 Test Item Value Reference Range Interpretation [...] % 0-1 PERCENT (BEAKER) (test code = 6211)
[2020-07-10 02:00] LABS: MPV 8.2 fL (7.6-11.3)
[2020-07-10 02:02] LABS: Protime INR 0.95
[2020-07-10 02:06] LABS: Basophils % 1.2 % (0-1.3); Hematocrit 46.6 % (39.6-49.0); Lymphocytes % 25.7 % (15.3-44.8); RBC Red Blood Cell Count 5.11 M/uL (4.33-5.43)
[2020-07-10 02:14] LABS: ALT/SGPT 25 U/L (12-78); AST/SGOT 19 U/L (15-37); Albumin 4.1 g/dL (3.4-5.0); Alkaline Phosphatase 106 U/L (45-117); BUN Blood Urea Nitrogen 6 mg/dL (7-18); Bicarbonate 26 mmol/L (21-32); Bilirubin Direct < 0.1 mg/dL (0-0.2); Bilirubin Total 0.2 mg/dL (0.2-1.0); Glucose Level 83 mg/dL (74-106); Magnesium 2.5 mg/dL (1.8-2.4); NT PRO-BNP 24 pg/mL (<125); Potassium 3.8 mmol/L (3.5-5.1); Protein, Total 8.6 g/dL (6.4-8.2); Sodium Level 141 mmol/L (136-145); Troponin (Emerg Dept Use Only) < 0.02 ng/mL (0.0-0.045)
[2020-07-10] MEDS ORDERED: ASPIRIN 81 MG CHEWABLE TABLET ONE (03:16)
--- NOTE | 2020-07-10 03:29 | ER ---
Nurse's Notes [facility] Name: Srini Simpson Age: 35 yrs Sex: Male : 1985 Arrival Date: 07/10/2020 Time: 01:05 Bed 6 Private MD: Diagnosis: Essential (primary) hypertension;Edema, unspecified Presentation: 07/10 01:14 Chief complaint: foots hurting and have some swelling. no injury or trauma reported for sg triage at this time. Coronavirus screen: Client denies travel out of the [place] in the last 14 days. At this time, the client does not indicate any symptoms associated with coronavirus-19. Ebola Screen: Patient negative for fever greater than or equal to 101.5 degrees Fahrenheit, and additional compatible Ebola Virus Disease symptoms Patient denies exposure to infectious person. Patient denies travel to an Ebola-affected area in the 21 days before illness onset. No symptoms or risks identified at this time. Initial Sepsis Screen: Does the patient meet any 2 criteria? No. Patient's initial sepsis screen is negative. Does the patient have a suspected source of infection? No. Patient's initial sepsis screen is negative. Risk Assessment: Do you want to hurt yourself or someone else? Patient reports no desire to harm self or others. Onset of symptoms was July 10, 2020. Care prior to arrival: None. Transition of care: patient was not received from another setting of care. 01:14 Method Of Arrival: Ambulatory 01:14 Acuity: CHRISTINE 3 ea Historical: - Allergies: 01:16 No Known Allergies; sg - PMHx: 01:16 Anxiety; Depression; Hypertension; Pyloric Stenosis; sg - PSHx: 01:16 pyloric stenosis repair.; sg - Immunization history:: Adult Immunizations up to date. - Social history:: Smoking status: Patient denies any tobacco usage or history of. - Family history:: not pertinent. Screenin:36 Abuse screen: Denies threats or abuse. Nutritional screening: No deficits noted. ea Tuberculosis screening: No symptoms or risk factors identified. Fall Risk IV access (20 points). Assessment: 01:37 General: Appears in no apparent distress. Behavior is appropriate for age. Pain: ea Complains of pain in left foot. Neuro: Level of Consciousness is awake, alert, obeys commands, Oriented to person, place, time. Cardiovascular: Patient's skin is warm and dry. Cardiovascular: Cardiovascular: pitting edema to sharla lower extremities . Respiratory: Airway is patent Respiratory effort is even, unlabored, Respiratory pattern is regular, symmetrical. Derm: Skin is pink, warm \T\ dry. 02:10 Reassessment: Patient appears in no apparent distress at this time. Patient and/or rr5 family updated on plan of care and expected duration. Pain level reassessed. Patient is alert, oriented x 3, equal unlabored respirations, skin warm/dry/pink. awaiting for results. 03:03 Reassessment: Patient appears in no apparent distress at this time. Patient is alert, rr5 oriented x 3, equal unlabored respirations, skin warm/dry/pink. back from CT scan. 03:39 Reassessment: Patient and/or family updated on plan of care and expected duration. Pain ea level reassessed. Patient is alert, oriented x 3, equal unlabored respirations, skin warm/dry/pink. Discharge instruction given to patient, verbalized the understanding of instruction. Pt left ED ambulatory tolerating well. Vital Signs: 01:36 BP 162 / 108; Pulse 94; Resp 19; Temp 98.5; Pulse Ox 98% on R/A; ea 02:30 BP 141 / 97; Pulse 98; Resp 16; Pulse Ox 100% ; rr5 03:42 BP 138 / 95; Pulse 90; Resp 17; Pulse Ox 98% ; rr5 ED Course: 01:05 Patient arrived in ED. ag3 01:09 Jeevan Shaw MD is Attending Physician. nehemias 01:11 Jethro Moore RN is Primary Nurse. rr5 01:16 Triage completed. sg 01:16 Arm band placed on. sg 01:36 Inserted saline lock: 20 gauge in right forearm, using aseptic technique. Blood ea collected. 01:37 Patient has correct armband on for positive identification. Bed in low position. Call ea light in reach. Side rails up X2. 01:47 XRAY Chest (1 view) In Process Unspecified. EDMS 02:05 Notified ED physician of a critical lab result(s). D DIMER [id number]. sg 02:52 US Extremity Venous W Compression Sharla In Process Unspecified. EDMS 03:09 CT Chest For PE Angio In Process Unspecified. EDMS 03:28 Austin Martinez MD is Referral Physician. nehemias 03:40 No provider procedures requiring assistance completed. IV discontinued, intact, ea bleeding controlled, No redness/swelling at site. Pressure dressing applied. Administered Medications: 03:03 Drug: Aspirin Chewable Tablet 324 mg Route: PO; rr5 03:38 Follow up: Response: No adverse reaction ea Outcome: 03:28 Discharge ordered by . nehemias 03:41 Discharged to home ambulatory. ea 03:41 Condition: stable 03:41 Discharge instructions given to patient, Instructed on discharge instructions, follow up and referral plans. medication usage, Demonstrated understanding of instructions, follow-up care, medications, Prescriptions given X 1. 03:43 Patient left the ED. rr5 Signatures: Dispatcher [employer] EDMS Hernesto Ayala RN RN Jeevan Dhillon MD MD cha Antunez, Elena RN RN Lilo Leavitt Raymond RN RN rr5 Corrections: (The following items were deleted from the chart) 01:42 01:14 Acuity: CHRISTINE 5 sg cele
--- NOTE | 2020-07-10 03:29 | EDPHYS ---
Physician Documentation [facility] Name: Srini Simpson Age: 35 yrs Sex: Male : 1985 Arrival Date: 07/10/2020 Time: 01:05 Bed 6 Private MD: [place] Physician Jeevan Shaw HPI: 07/10 01:55 This 35 yrs old Male presents to ER via Ambulatory with complaints of Foot nehemias Pain. 01:55 The patient presents with pain, swelling, tenderness. The complaints affect the right nehemias foot, left foot, right leg and left leg. Context: The problem was sustained at an unknown location, resulted from sitting in car, lives in his car. Onset: The symptoms/episode began/occurred 2 day(s) ago. Modifying factors: The symptoms are alleviated by elevation of extremity, the symptoms are aggravated by weight bearing, movement. Associated signs and symptoms: The patient has no apparent associated signs or symptoms. Severity of symptoms: At their worst the symptoms were mild, in the emergency department the symptoms are unchanged. The patient has not experienced similar symptoms in the past. Historical: - Allergies: 01:16 No Known Allergies; sg - PMHx: 01:16 Anxiety; Depression; Hypertension; Pyloric Stenosis; sg - PSHx: 01:16 pyloric stenosis repair.; sg - Immunization history:: Adult Immunizations up to date. - Social history:: Smoking status: Patient denies any tobacco usage or history of. - Family history:: not pertinent. ROS: 01:55 Constitutional: Negative for fever, chills, and weight loss, Eyes: Negative for injury, nehemias pain, redness, and discharge, ENT: Negative for injury, pain, and discharge, Neck: Negative for injury, pain, and swelling, Cardiovascular: Negative for chest pain, palpitations, and edema, Respiratory: Negative for shortness of breath, cough, wheezing, and pleuritic chest pain, Abdomen/GI: Negative for abdominal pain, nausea, vomiting, diarrhea, and constipation, Back: Negative for injury and pain, : Negative for injury, bleeding, discharge, and swelling, Skin: Negative for injury, rash, and discoloration, Neuro: Negative for headache, weakness, numbness, tingling, and seizure, Psych: Negative for depression, anxiety, suicide ideation, homicidal ideation, and hallucinations, Allergy/Immunology: Negative for hives, rash, and allergies, Endocrine: Negative for neck swelling, polydipsia, polyuria, polyphagia, and marked weight changes, Hematologic/Lymphatic: Negative for swollen nodes, abnormal bleeding, and unusual bruising. 01:55 MS/extremity: Positive for pain, swelling, of the right foot, left foot, right leg and left leg. Exam: 01:55 Constitutional: This is a well developed, well nourished patient who is awake, alert, nehemias and in no acute distress. Head/Face: Normocephalic, atraumatic. Eyes: Pupils equal round and reactive to light, extra-ocular motions intact. Lids and lashes normal. Conjunctiva and sclera are non-icteric and not injected. Cornea within normal limits. Periorbital areas with no swelling, redness, or edema. ENT: Nares patent. No nasal discharge, no septal abnormalities noted. Tympanic membranes are normal and external auditory canals are clear. Oropharynx with no redness, swelling, or masses, exudates, or evidence of obstruction, uvula midline. Mucous membranes moist. Neck: Trachea midline, no thyromegaly or masses palpated, and no cervical lymphadenopathy. Supple, full range of motion without nuchal rigidity, or vertebral point tenderness. No Meningismus. Chest/axilla: Normal chest wall appearance and motion. Nontender with no deformity. No lesions are appreciated. Cardiovascular: Regular rate and rhythm with a normal S1 and S2. No gallops, murmurs, or rubs. Normal PMI, no JVD. No pulse deficits. Respiratory: Lungs have equal breath sounds bilaterally, clear to auscultation and percussion. No rales, rhonchi or wheezes noted. No increased work of breathing, no retractions or nasal flaring. Abdomen/GI: Soft, non-tender, with normal bowel sounds. No distension or tympany. No guarding or rebound. No evidence of tenderness throughout. Back: No spinal tenderness. No costovertebral tenderness. Full range of motion. Male : Normal genitalia with no discharge or lesions. Skin: Warm, dry with normal turgor. Normal color with no rashes, no lesions, and no evidence of cellulitis. Neuro: Awake and alert, GCS 15, oriented to person, place, time, and situation. Cranial nerves II-XII grossly intact. Motor strength 5/5 in all extremities. Sensory grossly intact. Cerebellar exam normal. Normal gait. Psych: Awake, alert, with orientation to person, place and time. Behavior, mood, and affect are within normal limits. 01:55 Musculoskeletal/extremity: ROM: intact in all extremities, full active range of motion, full passive range of motion, Circulation is intact in all extremities. Sensation intact. Compartment Syndrome exam of affected extremity: is normal. Weight bearing: able to fully bear weight, without difficulty, DVT Exam: negative Homans' sign noted on exam, no appreciated bluish discoloration, no erythema, no increased warmth, pain, swelling, tenderness. 02:02 ECG was reviewed by the Attending Physician. [facility] Vital Signs: 01:36 BP 162 / 108; Pulse 94; Resp 19; Temp 98.5; Pulse Ox 98% on R/A; ea 02:30 BP 141 / 97; Pulse 98; Resp 16; Pulse Ox 100% ; rr5 03:42 BP 138 / 95; Pulse 90; Resp 17; Pulse Ox 98% ; rr5 MDM: 01:10 Patient medically screened. nehemias 01:59 Differential diagnosis: arthritis, gout. Data reviewed: vital signs, nurses notes, lab nehemias test result(s), EKG, radiologic studies, plain films. Data interpreted: environmental monitoring technician: rate is 94 beats/min, rhythm is regular, Pulse oximetry: on room air is 98 %. Test interpretation: by ED physician or midlevel provider: ECG, plain radiologic studies. Counseling: I had a detailed discussion with the patient and/or guardian regarding: the historical points, exam findings, and any diagnostic results supporting the discharge/admit diagnosis, the presence of at least one elevated blood pressure reading (>120/80) during this emergency department visit, lab results, radiology results, the need for outpatient follow up. 07/10 01:32 Order name: Basic Metabolic Panel 07/10 01:32 Order name: CBC with Diff; Complete Time: 02:17 07/10 01:32 Order name: LFT's; Complete Time: 02:17 07/10 01:32 Order name: Magnesium; Complete Time: 02:17 07/10 01:32 Order name: NT PRO-BNP; Complete Time: 02:17 07/10 01:32 Order name: PT-INR; Complete Time: 02:17 07/10 01:32 Order name: Troponin (emerg Dept Use Only); Complete Time: 02:17 ea 07/10 01:32 Order name: XRAY Chest (1 view) 07/10 01:32 Order name: Basic Metabolic Panel; Complete Time: 02:17 EDMS 07/10 01:54 Order name: D-Dimer [facility] 07/10 01:57 Order name: D-Dimer; Complete Time: 02:17 EDMS 07/10 02:18 Order name: US Extremity Venous W Compression Bhanu [facility] 07/10 02:18 Order name: CT Chest For PE Angio [facility] 07/10 01:32 Order name: EKG; Complete Time: 01:33 ea 07/10 01:32 Order name: Cardiac monitoring; Complete Time: :40 07/10 01:32 Order name: EKG - Nurse/Tech; Complete Time: 01:40 ea 07/10 01:32 Order name: IV Saline Lock; Complete Time: 01:33 ea 07/10 01:32 Order name: Labs collected and sent; Complete Time: 01:33 07/10 01:32 Order name: O2 Per Protocol; Complete Time: 01:39 ea 07/10 01:32 Order name: O2 Sat Monitoring; Complete Time: 01:39 ea EC:02 Rate is 89 beats/min. Rhythm is regular. QRS [place] is Normal. CA interval is normal. QRS nehemias interval is normal. QT interval is normal. No Q waves. T waves are Normal. No ST changes noted. Clinical impression: NSR w/ Non-specific ST/T Changes and No evidence of ischemia. Interpreted by me. Reviewed by me. Administered Medications: 03:03 Drug: Aspirin Chewable Tablet 324 mg Route: PO; rr5 03:38 Follow up: Response: No adverse reaction ea Disposition: 07/10/20 03:28 Discharged to Home. Impression: Essential (primary) hypertension, Edema, unspecified. - Condition is Stable. - Discharge Instructions: Edema, Hypertension, Hypertension, Inis-[id number]-Gptl, Edema, [id number], How to Take Your Blood Pressure, [id number], Aspirin and Your Heart, Hypokalemia, Managing Your Hypertension. - Prescriptions for Hydrochlorothiazide 12.5 mg Oral Tablet - take 1 tablet by ORAL route once daily; 30 tablet. - Medication Reconciliation Form, Thank You Letter, Antibiotic Education, Prescription Opioid Use form. - Follow up: Private Physician; When: 2 - 3 days; Reason: Recheck today's complaints, Continuance of care, Re-evaluation by your physician. Follow up: Austin Martinez; When: 2 - 3 days; Reason: Recheck today's complaints, Re-evaluation by your physician. - Problem is new. - Symptoms have improved. Signatures: Dispatcher [employer] EDAK Hernesto Ayala RN Jeevan Marks MD MD cha Antunez, Elena RN RN Jethro Browne RN RN rr5 Corrections: (The following items were deleted from the chart) 01:57 01:54 D-Dimer ordered. EDAK EDAK 03:43 03:28 07/10/2020 03:28 Discharged to Home. Impression: Essential (primary) rr5 hypertension; Edema, unspecified. Condition is Stable. Discharge Instructions: Edema, Hypertension, Hypertension, [id number], Edema, [id number], How to Take Your Blood Pressure, Vfnw-[id number], Aspirin and Your Heart, Hypokalemia, Managing Your Hypertension. Prescriptions for Hydrochlorothiazide 12.5 mg Oral Tablet - take 1 tablet by ORAL route once daily; 30 tablet. and Forms are Medication Reconciliation Form, Thank You Letter, Antibiotic Education, Prescription Opioid Use. Follow up: Private Physician; When: 2 - 3 days; Reason: Recheck today's complaints, Continuance of care, Re-evaluation by your physician. Follow up: Austin Martinez; When: 2 - 3 days; Reason: Recheck today's complaints, Re-evaluation by your physician. Problem is new. Symptoms have improved. nehemias
[2020-07-10 03:59] VITALS: BP 138/95; O2SAT 98
[2020-07-10 04:05] VITALS: TEMP 97.2
--- NOTE | 2020-07-10 08:05 | RAD REPORT ---
EXAM DESCRIPTION: USExtrem Venous W Compress Bil07/10/2020 2:52 am CLINICAL HISTORY: Leg swelling COMPARISON: none FINDINGS: The common femoral, superficial femoral, popliteal and posterior tibial veins bilaterally are compressible and demonstrate augmentation. Doppler demonstrates good flow. IMPRESSION: No evidence of deep venous thrombosis involving either lower extremity.
--- NOTE | 2020-07-10 08:33 | RAD REPORT ---
EXAM DESCRIPTION: Lindsay Single View07/10/2020 1:47 am CLINICAL HISTORY: Chest pain COMPARISON: June 2020 FINDINGS: The lungs appear clear of acute infiltrate. The heart is normal size IMPRESSION: No acute abnormalities displayed
--- NOTE | 2020-07-10 10:25 | RAD REPORT ---
EXAM DESCRIPTION: CT - Chest For Pe Angio - 07/10/2020 6:54 am CLINICAL HISTORY: DYSPNEA COMPARISON: None Available. TECHNIQUE: CTA of the chest obtained following the uncomplicated intravenous administration of iodin ated contrast. 3-D/MIP reformatted images of the chest available for evaluation. FINDINGS: Chest: Pulmonary arteries: Contrast bolus is adequate.No filling defects identified in the pulmonary arterie s to suggest pulmonary embolus. Motion artifact. Evaluation of the segmental and subsegmental pulmona ry arteries is suboptimal. Thyroid: No abnormalities of the visualized thyroid. Great Vessels: Great vessels have normal anatomic configuration. Thoracic Aorta: Atherosclerotic calcification of the thoracic aorta. Heart: No cardiomegaly, significant pericardial effusion, or coronary artery atherosclerosis Lymph Nodes: No enlarged mediastinal lymph nodes identified. Esophagus: No abnormalities of the esophagus identified. Other: No additional findings. Lungs: No airspace opacities identified. Pleura: No pleural effusion or pneumothorax. Trachea/Airways: No abnormalities of the visualized trachea or airways. Bones: No destructive osseous lesions. Upper Abdomen: Limited images of the upper abdomen demonstrate no definite abnormalities of visualize d portions of the liver, gallbladder, pancreas, spleen, adrenal glands, or kidneys. IMPRESSION: 1. No pulmonary embolus. This exam was performed according to our departmental dose-optimization program, which includes autom ated exposure control, adjustment of the mA and/or kV according to patient size and/or use of iterati ve reconstruction technique. Electronically signed by: Washington Fine 07/10/2020 3:22 AM DENTAL FLOSS P[employer]ER Due to temporary technical issues with the PACS/Fluency reporting system, reports are being signed by the in house radiologists without review as a courtesy to insure prompt reporting. The interpreting radiologist is fully responsible for the content of the report.
== END 2020-07-10 03:43 | disposition home or self-care (01) ==
LOC: ER 01:03
DX: R60.9 Edema, unspecified (principal); I10 Essential (primary) hypertension
CPT/HCPCS: 36415; 71045; 71275; 80048; 80076; 83735; 83880; 84484; 85025; 85379; 85610; 93005; 93970; 99284; Q9967

== ENCOUNTER 2020-07-19 03:06 | Emergency (ER) | payer SELFPAY ==
--- OUTSIDE RECORDS SUMMARY | 2020-07-19 03:11 | XMS REPORT | Continuity of Care Document ---
:1985 Author Organization [facility] t Address [address] [place] [address] Dr. [address]. [address] [place] [address] Care Team Providers Name Role Phone Maame Luke Primary Care Physician Ernie Hassan Attending Clinician Unavailable Ernie Hassan Attending Clinician Unavailable Deion Rincon DO Attending Clinician Margarita Marroquin Attending Clinician ASHLIE Attending Clinician Unavailable Lexy Thomas MD Attending Clinician Singer LAW Attending Clinician Fatimah BELTRÁN S Attending Clinician Doctor Unassigned, Name Attending Clinician Unavailable Clinic, Neurology Continuity Attending Clinician UnavailLindsey DAVENPORT Attending Clinician Kem Herrera Attending Clinician Jeremiah [...] Stop Date Source Natural father Heart attack [facility] Paternal grandfather Heart attack [facility] Social History Social Habit Start Date Stop Date Quantity Comments Source Alcohol Comment socially [facility] Sex Assigned At [facility] History of tobacco Cigarette Smoker [facility] Cigarettes smoked 2017-03-16 2017-03-16 [facility] - current (pack per 00:00:00 00:00:00 Medical Center day) - Reported Tobacco use and 2017-03-16 2017-03-16 Never used [facility] - exposure 00:00:00 00:00:00 [facility] Alcohol intake 2017-03-16 2017-03-16 Current drinker [facility] Ray mckeon [facility] - 00:00[facility]00 [facility] Smoking Status Start Date Stop Date Source Current every day smoker 2017-03-16 00:00:00 [facility] Medications This patient has no known medications. Procedures This patient has no known procedures. Encounters Start End Encounter Admission Attending Care Care Encounter Source Date/Time Date/Time Type Type Clinicians Facility Department ID 2019-12-28 Inpatient 3 Ted Hassan [facility] PS[facility] [id number] [facility] 22:04:00 Ted Hassan - 819 2020-06-30 2020-06-30 Emergency Sergey [facility] [id number] 05:26:00 10:11:00 Ciera Huang [id number] [place] 4.2.7.2.686 [place] [id number] 2020-06-23 2020-06-23 Emergency Shelley Shahid [id number] 13:46:00 15:46:00 Margarita Huang [id number] [place] 4.2.7.2.686 [place] [id number] 2020-01-28 2020-02-01 Inpatient ASHLIE [facility] [id number] [place] 00:00:00 00:00:00 ROSIPAT Jo Method i 2019-12-28 2020-01-02 Inpatient 3 Ted Hassan [facility] PSY [id number] [facility] 22:04:00 17:20:00 Ted Hassan 2019-11-09 2019-11-10 Emergency Martha, [facility] [id number] 23:06:12 01:26:00 Clovis Huang [id number] [place] 4.2.7.2.686 [place] [id number] 2019-09-29 2019-09-29 [facility] [id number] 09:39:50 11:47:00 Johan [place] [id number] [place] 4.2.7.2.686 [place] [id number] 2019-06-16 2019-06-16 Emergency Mary Bethnatashaandrey, [facility] [id number] 07:08:27 08:57:00 Nadine Huang [id number] [place] 4.2.7.2.686 [place] [id number] 2019-06-15 2019-06-15 Emergency ZehraShelley [facility] [id number] 11:30:00 13:30:00 Margarita Knight[place] [id number] [place] 4.2.7.2.686 [place] [id number] 2019-06-15 2019-06-15 Orders Doctor MCGINNIS [id number] 00:00:00 00:00:00 Only Unassigned, KAY [id number] [place] 4.2.7.2.686 [id number] [id number] 2019-06-06 2019-06-06 Letter Clinic, [facility] [id number] 00:00:00 00:00:00 (Out) Neurology [facility] 350.1.13.10 [facility]IN[facility] 4.2.7.2.686 [id number] 2019 2019 Urgent Marianna, [facility] [id number] 10:16:26 10:55:54 Care July [facility] [id number] Surgical 4.2.7.2.686 Special [id number] [facility] Sal 2019 2019 Orders Doctor RAS [id number] 00:00:00 00:00:00 Only Unassigned, KAY [id number] [place] [facility] 4.2.7.2.686 [id number] 2019-01-24 2019-01-24 Emergency [facility] [id number] 15:49:15 22:27:00 Anitra Huang 350.1.13.10 [place] [id number] [place] [id number] 2019-01-24 2019-01-24 Orders Doctor RAS [id number] 00:00:00 00:00:00 Only Unassigned, KAY 350.1.13.10 [place] [id number] [id number] 2018-12-21 2018-12-21 Emergency [facility] [id number] 17:07:20 19:42:00 Dejah Huang 350.1.13.10 [place] 4.2.7.2.686 [place] [id number] 2018-12-21 2018-12-21 Orders Doctor RAS [id number] 00:00:00 00:00:00 Only Unassigned, KAY 350.1.13.10 [place] [id number] [id number] [id number] Results Test Description Test Time Test [...] (test code = Expiration Dt) 02-07-2021 N Thyroid Stimulating [id number] 07:26:04 Test Item Value Reference Range Interpretation Comments TSH (test code = TSH) 1.757 mcIU/mL 0.550-4.780 Lipid [id number] 07:26:04 Test Item Value Reference Range Interpretation [...] is LDL/HDL Ratio=L DL Calc/HDL Chol Hemoglobin [id number] 07:26:03 Test Item Value Reference Range Interpretation Comments Hemoglobin A1c (test code 4.9 % 4.0-5.8 Di abetic >=6.5 = Hemoglobin A1c) %Prediabet es 5.7-6.4 %Normal <5.7 % [facility], MULTI, [id number] 14:45:00FINAL REPORT PROCEDURE: Rest/Stress MYOCARDIAL PERFUSION SPECT with treadm ill\XA9\ CPT CODE: 97872 INDICATION: Chest pain HISTORY: Cardiac risk factors: [...] 5. Normal extracardiactracer distribution. 6. No previous [facility] study for comparison. NONINVASIVE RISK STRATIFICATION: The above findings are considered low risk (<1% annual mortality rate) based on the following criterion:- Normal or small myocardial perfusion defect at rest or with stress(JACC. 2012;59(9):857-81.) Signed: Albert Ruvalcaba MDRsarika Verified Date/Time: 03/17/2017 14:45:11 Reading Location: [address] Reading Room HEMOGLOBIN [id number] 08:29:00 Test Item Value Reference Range Interpretation Comments HEMOGLOBIN A1C (BEAKER) (test code = 5.5 % 4.3-6.1 368) CREATINE KINASE (CK), TOTAL AND [id number] 02:45:00 Test Item Value Reference Range Interpretation Comments CREATINE KINASE TOTAL (BEAKER) 34 U/L 29-200 (test code = 380) CREATINE KINASE-MB (BEAKER) (test 0.4 ng/mL 0.0-6.6 code = 750) CREATINE KINASE-MB INDEX (BEAKER) 1.2 % (test code = 395) CK-MB Reference Range:<6.7 Normal6.7-10.0 Borderline>10.0 AbnormalTROPONIN [id number] 02:45:00 Test Item Value Reference Range Interpretation [...] and persistent tachyarrhythmia.RAD, CHEST, 1 VIEW, NON [id number] 20:40:00Reason for exam:->chest painShould this be performed at the bedside?->YesFINAL REPORT EXAMINATION: AP PORTABLE CHEST RADIOGRAPH CLINICAL INDICATION:Chest pain IMPRESSION: Compared with 04/30/2016. No evidence of focal lung consolidation, pulmonary edema or pleural effusion. The heart size is normal. Mediastinal contours are sharp. No evidence of an acute osseous abnormality or pneumothorax. Signed: Santhosh Castle MDReport Verified Date/Time: 03/16/2017 20:40:21 Reading Location: [address] Reading Room B-TYPE NATRIURETIC FACTOR (BNP)2017-03-16 20:30:00 Test Item Value Reference Range Interpretation Comments B-TYPE NATRIURETIC PEPTIDE (BEAKER) < pg/mL 0-100 (test code = 700) COMPREHENSIVE METABOLIC [id number] 20:30:00 Test Item Value Reference Range Interpretation [...] ATED GFR. CREATINE KINASE (CK), TOTAL AND [id number] 20:28:00 Test Item Value Reference Range Interpretation Comments CREATINE KINASE TOTAL (BEAKER) 50 U/L 29-200 (test code = 380) CREATINE KINASE-MB (BEAKER) (test 0.5 ng/mL 0.0-6.6 code = 750) CREATINE KINASE-MB INDEX (BEAKER) 1.0 % (test code = 395) CK-MB Reference Range:<6.7 Normal6.7-10.0 Borderline>10.0 AbnormalTROPONIN [id number] 20:28:00 Test Item Value Reference Range Interpretation [...] failure, acidosis, acute neurological disease, and persistent tachyarrhythmia.[id number] 20:21:00 Test Item Value Reference Range Interpretation Comments MAGNESIUM (BEAKER) 2.2 mg/dL 1.6-2.6 Specimen slightly (test code = 627) hemolyzed [id number] 20:21:00 Test Item Value Reference Range Interpretation Comments PHOSPHORUS (BEAKER) 3.9 mg/dL 2.3-4.7 Specimen slightly (test code = 604) hemolyzed LIPID [id number] 20:21:00 Test Item Value Reference Range Interpretation [...] Borderline 130-159 High 160-189 Very High >=190PROTHROMBIN TIME/[id number] 20:07:00 Test Item Value Reference Range Interpretation Comments PROTIME (BEAKER) (test code = 13.0 seconds 11.7-14.7 759) INR (BEAKER) (test code = 370) 1.0 <=5.9 RECOMMENDED COUMADIN/WARFARIN INR THERAPY RANGESSTANDARD DOSE: 2.0 - 3.0 Includes: PROPHYLAXIS forvenous thrombosis, systemic embolization; TREATMENT for venous thrombosis and/or pulmonary embolus.HIGH RISK: Target INR is 2.5-3.5 for patients with mechanical heart valves.[id number] 20:07:00 Test Item Value Reference Range Interpretation Comments PARTIAL THROMBOPLASTIN TIME 26.9 seconds 22.5-36.0 (BEAKER) (test code = 760) CBC W/PLT COUNT & AUTO [id number] 19:57:00 Test Item Value Reference Range Interpretation [...] % 0-1 PERCENT (BEAKER) (test code = 0393)
[2020-07-19 03:41] LABS: Absolute Lymphocytes (CBC) 2.4 K/uL (0.7-4.9); Basophils % 0.2 % (0-1.3); Hematocrit 42.7 % (39.6-49.0); Lymphocytes % 46.6 % (15.3-44.8); MPV 8.1 fL (7.6-11.3); RBC Red Blood Cell Count 4.69 M/uL (4.33-5.43)
[2020-07-19 03:56] LABS: Protime INR 0.97
[2020-07-19 04:03] LABS: ALT/SGPT 153 U/L (12-78); AST/SGOT 94 U/L (15-37); Albumin 3.5 g/dL (3.4-5.0); Alkaline Phosphatase 115 U/L (45-117); BUN Blood Urea Nitrogen 4 mg/dL (7-18); Bicarbonate 29 mmol/L (21-32); Bilirubin Direct < 0.1 mg/dL (0-0.2); Bilirubin Total 0.2 mg/dL (0.2-1.0); Glucose Level 110 mg/dL (74-106); Potassium 3.9 mmol/L (3.5-5.1); Protein, Total 7.4 g/dL (6.4-8.2); Sodium Level 143 mmol/L (136-145)
[2020-07-19 04:25] LABS: Barbiturates NEGATIVE (NEGATIVE); Benzodiazepines NEGATIVE (NEGATIVE); Cocaine NEGATIVE (NEGATIVE); METHAMPHETAM NEGATIVE (NEGATIVE); Methadone NEGATIVE (NEGATIVE); Opiates NEGATIVE (NEGATIVE); Phencyclidine NEGATIVE (NEGATIVE); THC Cannibis NEGATIVE (NEGATIVE)
[2020-07-19 04:54] LABS: Urine Blood NEGATIVE (NEG); Urine Glucose NEGATIVE (NEG); Urine Protein NEGATIVE (NEG); Urine Specific Gravity 1.025 (1.005-1.030)
--- NOTE | 2020-07-19 08:23 | RAD REPORT ---
EXAM DESCRIPTION: RAD - Chest Single View - 07/19/2020 6:58 am CLINICAL HISTORY: SOB COMPARISON: Portable July 10 TECHNIQUE: AP portable chest image was obtained 07/19/2020 6:58 am . FINDINGS: Lungs are clear. Heart and vasculature are normal. No measurable pleural effusion and no p neumothorax. No acute bony abnormality seen. No acute aortic findings suspected. IMPRESSION: No acute cardiopulmonary process. No significant change from comparison study.
--- NOTE | 2020-07-19 09:23 | EDPHYS ---
Physician Documentation [facility] Name: Srini Simpson Age: 35 yrs Sex: Male : 1985 Arrival Date: 07/19/2020 Time: 03:11 Bed 17 Private MD: Jovanni Luke H ED Physician Jeevan Shaw HPI: 07/19 06:04 This 35 yrs old Male presents to ER via Ambulatory with complaints of tw4 Suicidal Ideation. 06:04 The patient presents to the emergency department with suicide ideation. Onset: The tw4 symptoms/episode began/occurred today. Associated signs and symptoms: The patient has no apparent associated signs or symptoms. The patient has not experienced similar symptoms in the past. Historical: - Allergies: 03:23 No Known Allergies; em - Home Meds: 03:23 Klonopin 1 mg Oral tab 1 tab 2 times per day [Active]; metoprolol tartrate 50 mg Oral em tab 1 tab 2 times per day [Active]; 03:43 Effexor XR 150 mg Oral cp24 1 cap once daily [Active]; em - PMHx: 03:23 Anxiety; Depression; Hypertension; Pyloric Stenosis; em - PSHx: 03:23 pyloric stenosis repair.; em - Immunization history:: Adult Immunizations up to date. - Social history:: Smoking status: Patient reports the use of cigarette tobacco products, smokes one pack cigarettes per day. Patient uses alcohol, on a daily basis. beer daily. Patient/guardian denies using street drugs, IV drugs. ROS: 06:04 Constitutional: Negative for fever, chills, and weight loss, Eyes: Negative for injury, tw4 pain, redness, and discharge, Cardiovascular: Negative for chest pain, palpitations, and edema, Respiratory: Negative for shortness of breath, cough, wheezing, and pleuritic chest pain, Abdomen/GI: Negative for abdominal pain, nausea, vomiting, diarrhea, and constipation, Back: Negative for injury and pain, MS/Extremity: Negative for injury and deformity, Skin: Negative for injury, rash, and discoloration, Neuro: Negative for headache, weakness, numbness, tingling, and seizure. Exam: 06:04 Constitutional: This is a well developed, well nourished patient who is awake, alert, tw4 and in no acute distress. Head/Face: Normocephalic, atraumatic. Chest/axilla: Normal chest wall appearance and motion. Nontender with no deformity. No lesions are appreciated. Cardiovascular: Regular rate and rhythm with a normal S1 and S2. No gallops, murmurs, or rubs. Normal PMI, no JVD. No pulse deficits. Respiratory: Lungs have equal breath sounds bilaterally, clear to auscultation and percussion. No rales, rhonchi or wheezes noted. No increased work of breathing, no retractions or nasal flaring. Abdomen/GI: Soft, non-tender, with normal bowel sounds. No distension or tympany. No guarding or rebound. No evidence of tenderness throughout. Skin: Warm, dry with normal turgor. Normal color with no rashes, no lesions, and no evidence of cellulitis. MS/ Extremity: Pulses equal, no cyanosis. Neurovascular intact. Full, normal range of motion. Neuro: Awake and alert, GCS 15, oriented to person, place, time, and situation. Cranial nerves II-XII grossly intact. Motor strength 5/5 in all extremities. Sensory grossly intact. Cerebellar exam normal. Normal gait. Vital Signs: 03:19 BP 136 / 95; Pulse 95; Resp 16; Temp 98.6(O); Pulse Ox 98% on R/A; Weight 83.91 kg; em Height 5 ft. 7 in. (170.18 cm); Pain 0/10; 06:46 Pulse 97; Resp 18; Pulse Ox 97% on R/A; sf 09:00 BP 141 / 89; Pulse 95; Resp 18; Temp 98.7; Pulse Ox 97% ; bp 03:19 Body Mass Index 28.97 (83.91 kg, 170.18 cm) em MDM: 03:16 Patient medically screened. tw4 09:24 Differential diagnosis: drug withdrawal. acute psychotic break, depression. Data nehemias reviewed: vital signs, nurses notes, lab test result(s), EKG, radiologic studies, plain films. Data interpreted: secured entrance monitor: rate is 95 beats/min, rhythm is regular, Pulse oximetry: on room air is 97 %. Test interpretation: by ED physician or midlevel provider: ECG, plain radiologic studies. Counseling: I had a detailed discussion with the patient and/or guardian regarding: the historical points, exam findings, and any diagnostic results supporting the discharge/admit diagnosis, lab results, radiology results, the need for outpatient follow up, for definitive care, a family practitioner, a psychiatrist. 07/19 03:16 Order name: Acetaminophen tw4 07/19 03:16 Order name: Basic Metabolic Panel 07/19 03:16 Order name: CBC with Diff 07/19 03:16 Order name: ETOH Level 07/19 03:16 Order name: Hepatic Function 07/19 03:16 Order name: PT-INR 07/19 03:16 Order name: Ptt, Activated 07/19 03:16 Order name: Salicylate 07/19 03:16 Order name: Urine Drug Screen 07/19 03:42 Order name: CBC with Automated Diff; Complete Time: 06:46 EDMS 07/19 03:54 Order name: Urine Dipstick--Ancillary (enter results) tt3 07/19 03:58 Order name: Protime (+INR); Complete Time: 06:46 EDMS 07/19 03:58 Order name: PTT, Activated Partial Thromb; Complete Time: 06:46 EDMS 07/19 04:05 Order name: Alcohol Serum/Plasma; Complete Time: 06:46 EDMS 07/19 03:16 Order name: EKG; Complete Time: 03:17 tw4 07/19 03:16 Order name: EKG - Nurse/Tech; Complete Time: 03:42 4 07/19 03:16 Order name: IV Saline Lock; Complete Time: 09:53 4 07/19 03:16 Order name: Labs collected and sent; Complete Time: 03:39 4 07/19 04:05 Order name: Basic Metabolic Panel; Complete Time: 06:46 EDMS 07/19 04:05 Order name: Liver (Hepatic) Function; Complete Time: 06:46 EDMS 07/19 04:05 Order name: Acetaminophen Level; Complete Time: 06:46 EDMS 07/19 04:25 Order name: Salicylates Level; Complete Time: 06:46 EDMS 07/19 04:25 Order name: Urine Drug Screen; Complete Time: 06:46 EDMS 07/19 04:55 Order name: Urine Dipstick-Ancillary; Complete Time: 06:46 EDMS 03/11 06:47 Order name: Chest Single View XRAY tw4 07/19 08:24 Order name: RAD EDMS 07/19 09:00 Order name: Diet Finger Food; Complete Time: 09:01 5 07/19 03:16 Order name: Urine Dipstick-Ancillary (obtain specimen); Complete Time: 04:36 tw4 Administered Medications: 09:45 Drug: Lopressor (metoprolol TARTRATE) 50 mg Route: PO; bp 09:53 Follow up: Response: No adverse reaction bp 09:45 Drug: Effexor XR 75 mg Route: PO; bp 09:53 Follow up: Response: No adverse reaction bp 09:45 Drug: KLONopin 1 mg Route: PO; bp 09:53 Follow up: Response: No adverse reaction bp Disposition: 07/19/20 09:22 Discharged to Home. Impression: Major depressive disorder, recurrent, Essential (primary) hypertension, Suicidal ideations. - Condition is Stable. - Discharge Instructions: Hypertension, Hypertension, Iyrf-lm-Vyyi, How to Take Your Blood Pressure, [id number]-[id number]-[id number], Managing Your Hypertension. - Prescriptions for Effexor XR 75 mg Oral capsule,extended release 24hr - take 2 capsule by ORAL route once daily; 40 capsule. Klonopin 1 mg Oral Tablet - take 1 tablet by ORAL route every 12 hours As needed; 40 tablet. Lopressor 50 mg Oral Tablet - take 1 tablet by ORAL route every 12 hours; 30 tablet. - Medication Reconciliation Form, Thank You Letter, Antibiotic Education, Prescription Opioid Use form. - Follow up: Jovanni Luke DO; When: 2 - 3 days; Reason: Recheck today's complaints, Continuance of care, Re-evaluation by your physician. - Problem is new. - Symptoms have improved. Signatures: Dispatcher [employer] Jeevan Solorio MD MD cha Munoz, Edgar, RN RN Igor Solo RN RN Luis Garcia MD MD 4 Hernesto Thao RN RN sf Corrections: (The following items were deleted from the chart) 10:22 09:22 07/19/2020 09:22 Discharged to Home. Impression: Major depressive disorder, bp recurrent; Essential (primary) hypertension; Suicidal ideations. Condition is Stable. Forms are Medication Reconciliation Form, Thank You Letter, Antibiotic Education, Prescription Opioid Use. Follow up: Jovanni Luke; When: 2 - 3 days; Reason: Recheck today's complaints, Continuance of care, Re-evaluation by your physician. Problem is new. Symptoms have improved. nehemias
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
[2020-07-19] MEDS ORDERED: VENLAFAXINE HCL XR 75 MG CAP PO ONE (09:45)
[2020-07-19] MEDS ORDERED: clonazePAM 1 MG TAB ONE (09:51)
[2020-07-19] MEDS ORDERED: METOPROLOL TAR 50 MG TAB ONE (09:51)
[2020-07-19 10:37] VITALS: O2SAT 97
[2020-07-19 10:39] VITALS: BP 141/89; TEMP 98.7
== END 2020-07-19 10:22 | disposition home or self-care (01) ==
LOC: ER 03:06
DX: F33.9 Major depressive disorder, recurrent, unspecified (principal); I10 Essential (primary) hypertension; F17.210 Nicotine dependence, cigarettes, uncomplicated
CPT/HCPCS: 36415; 71045; 80048; 80076; 80307; 80320; 80329; 81003; 85025; 85610; 85730; 93005; 99285

== ENCOUNTER 2020-07-21 06:16 | Emergency (ER) | payer SELFPAY ==
--- OUTSIDE RECORDS SUMMARY | 2020-07-21 06:19 | XMS REPORT | Continuity of Care Document ---
:1985 Author Organization [facility] t Address [address] [place] [address] [address]. [address] [place] [address] Care Team Providers Name Role Phone aMame Luke Primary Care Physician Ernie Hassan Attending [...] Stop Date Source Natural father Heart attack [facility] Paternal grandfather Heart attack [facility] Social History Social Habit Start Date Stop Date Quantity Comments Source Alcohol Comment socially [facility] Sex Assigned At [facility] History of tobacco Cigarette Smoker [facility] Cigarettes smoked 2017-03-16 2017-03-16 [facility] - current (pack per 00:00:00 00:00:00 Medical Center day) - Reported Tobacco use and 2017-03-16 2017-03-16 Never used [facility] - exposure 00:00:00 00:00:00 [facility] Alcohol intake 2017-03-16 2017-03-16 Current drinker [facility] Ray mckeon [facility] - 00:00:00 00:00:00 [facility] (finding) Smoking Status Start Date Stop Date Source Current every day smoker 2017-03-16 00:00:00 [facility] Medications This patient has no known medications. Procedures This patient has no known procedures. Encounters Start End Encounter Admission Attending Care Care Encounter Source Date/Time Date/Time Type Type Clinicians Facility Department ID 2019-12-28 Inpatient 3 Ted Hassan [facility] PSY [id number] [facility] 22:04:00 Ted Hassan - 819 2020-06-30 2020-06-30 Emergency Sergey [facility] [id number] 05:26:00 10:11:00 Ciera Huang [id number] [place] 4.2.7.2.686 [place] [id number] 2020-06-23 2020-06-23 Emergency Shelley Shahid [id number] 13:46:00 15:46:00 Margarita Huang [id number] [place] [id number] [place] [id number] 2020-01-28 2020-02-01 Inpatient ASHLIE [facility] [id number] [place] 00:00:00 00:00:00 ROSIPAT Jo Method i 2019-12-28 2020-01-02 Inpatient 3 Ted Hassan [facility] PSY [id number] [facility] 22:04:00 17:20:00 Ted Hassan 2019-11-09 2019-11-10 Emergency Martha, [facility] [id number] 23:06:12 01:26:00 Clovis Huang [id number] [place] 4.2.7.2.686 [place] [id number] [id number] 2019-09-29 2019-09-29 [facility] [id number] 09:39:50 11:47:00 Johan Knightton [id number] [place] 4.2.7.2.686 [place] [id number] 2019-06-16 2019-06-16 Emergency Mary Bethnatashaandrey, [facility] [id number] 07:08:27 08:57:00 Nadine Huang [id number] [place] 4.2.7.2.686 [place] [id number] 2019-06-15 2019-06-15 Emergency ZehraShelley [facility] [id number] 11:30:00 13:30:00 Margarita Knightton [id number] [place] 4.2.7.2.686 [place] [id number] [id number] 2019-06-15 2019-06-15 Orders Doctor MCGINNIS [id number] 00:00:00 00:00:00 Only Unassigned, KAY [id number] [facility] 4.2.7.2.686 [id number] [id number] 2019-06-06 2019-06-06 Letter Clinic, [facility] [id number] 00:00:00 00:00:00 (Out) Neurology [facility] [id number] [facility] 4.2.7.2.686 [id number] 2019 2019 Urgent Bullock, [facility] [id number] 10:16:26 10:55:54 Care July [facility] [id number] Surgical 4.2.7.2.686 Special [id number] [facility] Sal 2019 2019 Orders Doctor RAS [id number] 00:00:00 00:00:00 Only Unassigned, KAY [id number] [place] [facility] 4.2.7.2.686 [id number] 2019-01-24 2019-01-24 Emergency [facility] [id number] 15:49:15 22:27:00 Anitra Huang 350.1.13.10 [place] [id number] [place] [id number] 2019-01-24 2019-01-24 Orders Doctor RAS [id number] 00:00:00 00:00:00 Only Unassigned, KAY 350.1.13.10 [place] [id number] [id number] 2018-12-21 2018-12-21 Emergency [facility] [id number] 17:07:20 19:42:00 Dejah Huang [id number] [place] 4.2.7.2.686 [place] [id number] 084 2018-12-21 2018-12-21 Orders Doctor RAS [id number] 00:00:00 00:00:00 Only Unassigned, KAY 350.1.13.10 [place] [address].2.7.2.686 [id number] [id number] Results Test Description Test Time Test [...] = Expiration Dt) 02-07-2021 N Thyroid Stimulating [id number] 07:26:04 Test Item Value Reference Range Interpretation Comments TSH (test code = TSH) 1.757 mcIU/mL 0.550-4.780 Lipid [id number] 07:26:04 Test Item Value Reference Range Interpretation [...] is LDL/HDL Ratio=L DL Calc/HDL Chol Hemoglobin [id number] 07:26:03 Test Item Value Reference Range Interpretation Comments Hemoglobin A1c (test code 4.9 % 4.0-5.8 Di abetic >=6.5 = Hemoglobin A1c) %Prediabet es 5.7-6.4 %Normal <5.7 % MYOCARD IMAGING, MULTI, [id number] 14:45:00FINAL REPORT PROCEDURE: Rest/Stress MYOCARDIAL PERFUSION SPECT with treadm ill\XA9\ CPT CODE: 97246 INDICATION: Chest pain HISTORY: Cardiac risk factors: [...] 5. Normal extracardiactracer distribution. 6. No previous [facility] study for comparison. NONINVASIVE RISK STRATIFICATION: The above findings are considered low risk (<1% annual mortality rate) based on the following criterion:- Normal or small myocardial perfusion defect at rest or with stress(JACC. 2012;59(9):857-81.) Signed: Albert Ruvalcaba MDRsarika Verified Date/Time: 03/17/2017 14:45:11 Reading Location: [address] Reading Room HEMOGLOBIN [id number] 08:29:00 Test Item Value Reference Range Interpretation Comments HEMOGLOBIN A1C (BEAKER) (test code = 5.5 % 4.3-6.1 368) CREATINE KINASE (CK), TOTAL AND [id number] 02:45:00 Test Item Value Reference Range Interpretation Comments CREATINE KINASE TOTAL (BEAKER) 34 U/L 29-200 (test code = 380) CREATINE KINASE-MB (BEAKER) (test 0.4 ng/mL 0.0-6.6 code = 750) CREATINE KINASE-MB INDEX (BEAKER) 1.2 % (test code = 395) CK-MB Reference Range:<6.7 Normal6.7-10.0 Borderline>10.0 AbnormalTROPONIN [id number] 02:45:00 Test Item Value Reference Range Interpretation [...] and persistent tachyarrhythmia.RAD, CHEST, 1 VIEW, NON [id number] 20:40:00Reason for exam:->chest painShould this be performed at the bedside?->YesFINAL REPORT EXAMINATION: AP PORTABLE CHEST RADIOGRAPH CLINICAL INDICATION:Chest pain IMPRESSION: Compared with 04/30/2016. No evidence of focal lung consolidation, pulmonary edema or pleural effusion. The heart size is normal. Mediastinal contours are sharp. No evidence of an acute osseous abnormality or pneumothorax. Signed: Santhosh Castle MDReport Verified Date/Time: 03/16/2017 20:40:21 Reading Location: [address] Reading Room B-TYPE NATRIURETIC FACTOR (BNP)2017-03-16 20:30:00 Test Item Value Reference Range Interpretation Comments B-TYPE NATRIURETIC PEPTIDE (BEAKER) < pg/mL 0-100 (test code = 700) COMPREHENSIVE METABOLIC [id number] 20:30:00 Test Item Value Reference Range Interpretation [...] ATED GFR. CREATINE KINASE (CK), TOTAL AND [id number] 20:28:00 Test Item Value Reference Range Interpretation Comments CREATINE KINASE TOTAL (BEAKER) 50 U/L 29-200 (test code = 380) CREATINE KINASE-MB (BEAKER) (test 0.5 ng/mL 0.0-6.6 code = 750) CREATINE KINASE-MB INDEX (BEAKER) 1.0 % (test code = 395) CK-MB Reference Range:<6.7 Normal6.7-10.0 Borderline>10.0 AbnormalTROPONIN [id number] 20:28:00 Test Item Value Reference Range Interpretation [...] failure, acidosis, acute neurological disease, and persistent tachyarrhythmia.[id number] 20:21:00 Test Item Value Reference Range Interpretation Comments MAGNESIUM (BEAKER) 2.2 mg/dL 1.6-2.6 Specimen slightly (test code = 627) hemolyzed [id number] 20:21:00 Test Item Value Reference Range Interpretation Comments PHOSPHORUS (BEAKER) 3.9 mg/dL 2.3-4.7 Specimen slightly (test code = 604) hemolyzed LIPID [id number] 20:21:00 Test Item Value Reference Range Interpretation [...] Borderline 130-159 High 160-189 Very High >=190PROTHROMBIN TIME/[id number] 20:07:00 Test Item Value Reference Range Interpretation Comments PROTIME (BEAKER) (test code = 13.0 seconds 11.7-14.7 759) INR (BEAKER) (test code = 370) 1.0 <=5.9 RECOMMENDED COUMADIN/WARFARIN INR THERAPY RANGESSTANDARD DOSE: 2.0 - 3.0 Includes: PROPHYLAXIS forvenous thrombosis, systemic embolization; TREATMENT for venous thrombosis and/or pulmonary embolus.HIGH RISK: Target INR is 2.5-3.5 for patients with mechanical heart valves.[id number] 20:07:00 Test Item Value Reference Range Interpretation Comments PARTIAL THROMBOPLASTIN TIME 26.9 seconds 22.5-36.0 (BEAKER) (test code = 760) CBC W/PLT COUNT & AUTO [id number] 19:57:00 Test Item Value Reference Range Interpretation [...] % 0-1 PERCENT (BEAKER) (test code = 1806)
[2020-07-21 07:26] LABS: Absolute Lymphocytes (CBC) 1.7 K/uL (0.7-4.9); Basophils % 0.3 % (0-1.3); Hematocrit 44.7 % (39.6-49.0); Lymphocytes % 29.7 % (15.3-44.8); MPV 8.2 fL (7.6-11.3); RBC Red Blood Cell Count 4.94 M/uL (4.33-5.43)
[2020-07-21] MEDS ORDERED: NA CHLORIDE 0.9% 1,000 ML ONE (07:39)
[2020-07-21] MEDS ORDERED: LORazepam 2 MG/ML VIAL ONE (07:39)
[2020-07-21] MEDS ORDERED: ONDANSETRON 4 MG/2 ML VIAL ONE (08:23)
[2020-07-21 09:50] LABS: ALT/SGPT 99 U/L (12-78); AST/SGOT 48 U/L (15-37); Albumin 3.5 g/dL (3.4-5.0); Alkaline Phosphatase 107 U/L (45-117); BUN Blood Urea Nitrogen 12 mg/dL (7-18); Bicarbonate 31 mmol/L (21-32); Bilirubin Direct < 0.1 mg/dL (0-0.2); Bilirubin Total 0.2 mg/dL (0.2-1.0); Glucose Level 108 mg/dL (74-106); Lipase 73 U/L (73-393); Potassium 4.9 mmol/L (3.5-5.1); Protein, Total 7.3 g/dL (6.4-8.2); Sodium Level 140 mmol/L (136-145); Troponin (Emerg Dept Use Only) < 0.02 ng/mL (0.0-0.045)
--- NOTE | 2020-07-21 10:28 | RAD REPORT ---
EXAM DESCRIPTION: RAD - Chest Single View - 07/21/2020 6:52 am CLINICAL HISTORY: CHEST PAIN Chest pain. COMPARISON: Chest Single View dated 07/19/2020; Chest Single View dated 07/10/2020; Chest Single View d ated 07/06/2020; Chest Single View dated 06/27/2020 FINDINGS: Portable technique limits examination quality. The lungs are grossly clear. The heart is normal in size. No displaced fractures. IMPRESSION: No acute intrathoracic process suspected.
--- NOTE | 2020-07-21 10:47 | EDPHYS ---
Physician Documentation [facility] Name: Srini Simpson Age: 35 yrs Sex: Male : 1985 Arrival Date: 07/21/2020 Time: 06:22 Bed 5 Private MD: ED Physician Yusuf Kirk HPI: 07/21 06:44 This 35 yrs old Male presents to ER via Ambulatory with complaints of rn Vomiting, Heart Racing. 06:44 The patient or guardian reports chest pain that is located primarily in the chest rn diffusely. The pain does not radiate. Associated signs and symptoms: Pertinent positives: nausea, vomiting, Pertinent negatives: cough, shortness of breath. The chest pain is described as a heaviness. Duration: The patient or guardian reports a single episode, that is still ongoing. Modifying factors: The symptoms are alleviated by nothing. the symptoms are aggravated by nothing. Severity of pain: At its worst the pain was moderate. The patient has experienced similar episodes in the past. The patient has not recently seen a physician. Reports heart racing, chest pain, nausea/vomiting, began 20 min prior to arrival, similar but worse than anxiety attacks in past. No fever. vee snot feel ill. . Historical: - Allergies: 06:32 No Known Allergies; bb - Home Meds: 06:32 metoprolol tartrate 50 mg Oral tab 1 tab 2 times per day [Active]; Klonopin 1 mg Oral bb tab 1 tab 2 times per day [Active]; - PMHx: 06:32 Anxiety; Depression; Hypertension; Pyloric Stenosis; bb - PSHx: 06:32 pyloric stenosis repair.; bb - Immunization history:: Adult Immunizations up to date. - Social history:: Smoking status: Patient reports the use of cigarette tobacco products, smokes one pack cigarettes per day. Patient uses alcohol, occasionally. Patient/guardian denies using street drugs. - Family history:: not pertinent. - Hospitalizations: : No recent hospitalization is reported. ROS: 06:44 Constitutional: Negative for fever, chills, and weight loss, Eyes: Negative for injury, rn pain, redness, and discharge, Neck: Negative for injury, pain, and swelling, Cardiovascular: + palpitations and chest pain Respiratory: Negative for shortness of breath, cough, wheezing, and pleuritic chest pain, Abdomen/GI: Negative for constipation MS/Extremity: Negative for injury and deformity, Skin: Negative for injury, rash, and discoloration, Neuro: Negative for headache, weakness, numbness, tingling, and seizure. Exam: 06:44 Constitutional: This is a well developed, well nourished patient who is awake, alert, rn seems anxious Head/Face: Normocephalic, atraumatic. Cardiovascular: Tachycardic, regular Respiratory: No increased work of breathing, no retractions or nasal flaring. Abdomen/GI: soft, non-tender Skin: Warm, dry MS/ Extremity: Pulses equal, no cyanosis. Neurovascular intact. Full, normal range of motion. Equal circumference. Neuro: Awake and alert, GCS 15 Vital Signs: 06:29 BP 168 / 114; Pulse 109; Resp 18 S; Temp 98.1(O); Pulse Ox 97% on R/A; Weight 83.91 kg bb (R); Height 5 ft. 7 in. (170.18 cm) (R); Pain 7/10; 07:29 BP 143 / 114; Pulse 91; Resp 18; Pulse Ox 96% on R/A; ph 08:34 BP 143 / 105; Pulse 78; Resp 18; Pulse Ox 95% on R/A; ph 09:27 BP 147 / 98; Pulse 87; Resp 18; Pulse Ox 98% on R/A; ph 06:29 Body Mass Index 28.97 (83.91 kg, 170.18 cm) bb MDM: 06:36 Patient medically screened. rn 07/21 06:44 Order name: Basic Metabolic Panel rn 07/21 06:44 Order name: CBC with Diff rn 07/21 06:44 Order name: Hepatic Function rn 07/21 06:44 Order name: Lipase rn 07/21 06:44 Order name: Troponin (emerg Dept Use Only) rn 07/21 06:44 Order name: Basic Metabolic Panel EDMS 03 06:44 Order name: IV Saline Lock; Complete Time: 07:29 rn 07/21 06:44 Order name: Labs collected and sent; Complete Time: 07:29 rn 07/21 06:44 Order name: XRAY Chest (1 view) rn 07/21 06:44 Order name: EKG; Complete Time: 06:45 rn 07/21 06:44 Order name: EKG - Nurse/Tech; Complete Time: 06:45 rn 07/21 07:33 Order name: Labs - recollect needed; Complete Time: 08:31 mt 07/21 08:25 Order name: Labs - recollect needed; Complete Time: 08:30 mt Administered Medications: 07:29 Drug: NS 0.9% 1000 ml Route: IV; Rate: 1000 ml; Site: right hand; ph 11:00 Follow up: Response: No adverse reaction; IV Status: Completed infusion; IV Intake: ph 800ml 07:29 Drug: Ativan 1 mg Route: IVP; Site: right hand; ph 08:00 Follow up: Response: No adverse reaction; Anxiety decreased ph 08:15 Drug: Zofran (Ondansetron) 4 mg Route: IVP; Site: right hand; ph 10:56 Follow up: Response: No adverse reaction ph Disposition: 07/21/20 10:46 Discharged to Home. Impression: Anxiety disorder, unspecified. - Condition is Stable. - Discharge Instructions: Panic Attacks, Social Anxiety Disorder, Generalized Anxiety Disorder. - Medication Reconciliation Form, Thank You Letter, Antibiotic Education, Prescription Opioid Use form. - Follow up: Yusuf Kirk MD; When: Upon discharge from the Emergency Department; Reason: Recheck today's complaints, Continuance of care, Re-evaluation by your physician. - Problem is an ongoing problem. - Symptoms have improved. Signatures: Dispatcher [employer] Addie Muñoz RN RN bb Nieto, Roman, MD MD rn Hall, Patricia, RN RN [facility] Luis Carr MD MD tw4 Corrections: (The following items were deleted from the chart) 11:15 10:46 07/21/2020 10:46 Discharged to Home. Impression: Anxiety disorder, unspecified. ph Condition is Stable. Forms are Medication Reconciliation Form, Thank You Letter, Antibiotic Education, Prescription Opioid Use. Follow up: Dr. Yusuf Kirk; When: Upon discharge from the Emergency Department; Reason: Recheck today's complaints, Continuance of care, Re-evaluation by your physician. Problem is an ongoing problem. Symptoms have improved. tw4
--- NOTE | 2020-07-21 10:47 | ER ---
Nurse's Notes [facility] Name: Srini Simpson Age: 35 yrs Sex: Male : 1985 Arrival Date: 07/21/2020 Time: 06:22 Bed 5 Private MD: Diagnosis: Anxiety disorder, unspecified Presentation: 07/21 06:29 Chief complaint: Patient states: he was laying down and approx 10 mins ago his heart bb started racing, he had chest pain, and he vomited x 2. Coronavirus screen: At this time, the client does not indicate any symptoms associated with coronavirus-19. Ebola Screen: No symptoms or risks identified at this time. Initial Sepsis Screen: Does the patient meet any 2 criteria? No. Patient's initial sepsis screen is negative. Does the patient have a suspected source of infection? No. Patient's initial sepsis screen is negative. Risk Assessment: Do you want to hurt yourself or someone else? Patient reports no desire to harm self or others. Onset of symptoms was July 21, 2020. 06:29 Method Of Arrival: Ambulatory bb 06:29 Acuity: CHRISTINE 3 bb Triage Assessment: 06:32 General: Appears uncomfortable, Behavior is anxious. Pain: Complains of pain in chest bb Pain currently is 7 out of 10 on a pain scale. Neuro: Level of Consciousness is awake, alert, obeys commands, Oriented to person, place, time, situation. Cardiovascular: Capillary refill < 3 seconds Patient's skin is warm and dry. Respiratory: Respiratory effort is even, unlabored, Respiratory pattern is regular. GI: Pt is actively vomiting Reports vomiting. Historical: - Allergies: :32 No Known Allergies; bb - Home Meds: :32 metoprolol tartrate 50 mg Oral tab 1 tab 2 times per day [Active]; Klonopin 1 mg Oral bb tab 1 tab 2 times per day [Active]; - PMHx: 06:32 Anxiety; Depression; Hypertension; Pyloric Stenosis; bb - PSHx: 06:32 pyloric stenosis repair.; bb - Immunization history:: Adult Immunizations up to date. - Social history:: Smoking status: Patient reports the use of cigarette tobacco products, smokes one pack cigarettes per day. Patient uses alcohol, occasionally. Patient/guardian denies using street drugs. - Family history:: not pertinent. - Hospitalizations: : No recent hospitalization is reported. Screenin:32 Abuse screen: Denies threats or abuse. Denies injuries from another. Nutritional ph screening: No deficits noted. Tuberculosis screening: No symptoms or risk factors identified. Fall Risk None identified. Assessment: 07:30 General: Appears in no apparent distress. comfortable, Behavior is cooperative, ph appropriate for age, anxious. Pain: Denies pain. Neuro: Level of Consciousness is awake, alert, obeys commands, Oriented to person, place, time, situation. Cardiovascular: Capillary refill < 3 seconds in bilateral fingers Patient's skin is warm and dry. Respiratory: Airway is patent Respiratory effort is even, unlabored. GI: Reports nausea, vomiting, Patient currently denies abdominal pain. Derm: Skin is intact, is healthy with good turgor, Skin is pink, warm \T\ dry. Musculoskeletal: Circulation, motion, and sensation intact. Range of motion: intact in all extremities. Vital Signs: 06:29 BP 168 / 114; Pulse 109; Resp 18 S; Temp 98.1(O); Pulse Ox 97% on R/A; Weight 83.91 kg bb (R); Height 5 ft. 7 in. (170.18 cm) (R); Pain 7/10; 07:29 BP 143 / 114; Pulse 91; Resp 18; Pulse Ox 96% on R/A; ph 08:34 BP 143 / 105; Pulse 78; Resp 18; Pulse Ox 95% on R/A; ph 09:27 BP 147 / 98; Pulse 87; Resp 18; Pulse Ox 98% on R/A; ph 06:29 Body Mass Index 28.97 (83.91 kg, 170.18 cm) bb ED Course: 06:22 Patient arrived in ED. cl3 06:31 Triage completed. bb 06:32 Arm band placed on Patient placed in an exam room, on a stretcher, on pulse oximetry. bb 06:36 Yusuf Kirk MD is Attending Physician. rn 06:39 EKG completed in triage. Results shown to . bb 06:51 XRAY Chest (1 view) In Process Unspecified. EDMS 07:13 Rosie Bradshaw, RN is Primary Nurse. ph 07:19 Inserted saline lock: 20 gauge in right hand, using aseptic technique. Blood collected. oe 07:32 Patient has correct armband on for positive identification. Bed in low position. Call ph light in reach. Side rails up X 1. Pulse ox on. NIBP on. Door closed. Noise minimized. Warm blanket given. 09:27 No provider procedures requiring assistance completed. ph 10:46 Yusuf Kirk MD is Referral Physician. tw4 11:15 IV discontinued, intact, bleeding controlled, No redness/swelling at site. Pressure ph dressing applied. Administered Medications: 07:29 Drug: NS 0.9% 1000 ml Route: IV; Rate: 1000 ml; Site: right hand; ph 11:00 Follow up: Response: No adverse reaction; IV Status: Completed infusion; IV Intake: ph 800ml 07:29 Drug: Ativan 1 mg Route: IVP; Site: right hand; ph 08:00 Follow up: Response: No adverse reaction; Anxiety decreased ph 08:15 Drug: Zofran (Ondansetron) 4 mg Route: IVP; Site: right hand; ph 10:56 Follow up: Response: No adverse reaction ph Intake: 11:00 IV: 800ml; Total: 800ml. ph Outcome: 10:46 Discharge ordered by . tw4 11:15 Discharged to home ambulatory. ph 11:15 Condition: good 11:15 Discharge instructions given to patient, Instructed on discharge instructions, follow up and referral plans. Demonstrated understanding of instructions, follow-up care. 11:15 Patient left the ED. ph Signatures: Dispatcher [employer] Addie Muñoz RN RN bb Nieto, Roman, MD MD rn Hall, Patricia, RN RN ph Espinosa, Orlando oe Wadley, Terrence, MD MD 4 Sharyn Wilson cl3
[2020-07-21 11:20] VITALS: TEMP 98.1
[2020-07-21 11:23] VITALS: BP 147/98; O2SAT 98
--- NOTE | 2020-07-22 10:24 | EKG ---
Test Date: 2020-07-21 Test Time: 06:39:48 Social Media Marketing Specialist: VALENCIA MEASUREMENT RESULTS: Intervals: Rate: 99 AK: 132 QRSD: 96 QT: 336 QTc: 431 [place]: P: 41 AK: 132 QRS: 38 T: 28 INTERPRETIVE STATEMENTS: Normal sinus rhythm Normal ECG Compared to ECG 07/19/2020 03:31:21 No significant changes Electronically Signed On 07-22-20 10:22:06 CDT by Austin Martinez
== END 2020-07-21 11:15 | disposition home or self-care (01) ==
LOC: ER 06:16
DX: F41.8 Other specified anxiety disorders (principal); I10 Essential (primary) hypertension; F17.210 Nicotine dependence, cigarettes, uncomplicated
CPT/HCPCS: 36415; 71045; 80048; 80076; 83690; 84484; 85025; 93005; 96361; 96374; 96375; 99284; J2405; J7030

== ENCOUNTER 2020-07-26 11:54 | Emergency (ER) | payer SELFPAY ==
--- OUTSIDE RECORDS SUMMARY | 2020-07-26 11:58 | XMS REPORT | Continuity of Care Document ---
:[address] [facility] t Address [address] [place] [address] Dr. [address] [place] [address] Care Team Providers Name Role Phone Maame [...] Stop Date Source Natural father Heart attack [facility] Paternal grandfather Heart attack [facility] Social History Social Habit Start Date Stop Date Quantity Comments Source Alcohol Comment socially [facility] Sex Assigned [facility] History of tobacco Cigarette Smoker [facility] Cigarettes smoked 2017-03-16 2017-03-16 [facility] - current (pack per 00:00:00 00:00:00 Medical Center day) - Reported Tobacco use and 2017-03-16 2017-03-16 Never used [facility] - exposure 00:00:00 00:00:00 [facility] Alcohol intake 2017-03-16 2017-03-16 Current drinker [facility] Ray mckeon [facility] - 00:00:00 00:00:00 of [facility] (finding) Smoking Status Start Date Stop Date Source Current every day smoker 2017-03-16 00:00:00 [facility] Medications This patient has no known medications. Procedures This patient has no known procedures. Encounters Start End Encounter Admission Attending Care Care Encounter Source Date/Time Date/Time Type Type Clinicians Facility Department ID 2019-12-28 Inpatient 3 Ted Hassan [facility] 12 [id number] [facility] 22:04:00 Ted Hassan - 819 2020-06-30 2020-06-30 Emergency Sergey [facility] [id number] 05:26:00 10:11:00 Ciera Huang [id number] [place] [id number] [place] [id number] [id number] 2020-06-23 2020-06-23 Emergency Shelley Shahid [id number] 13:46:00 15:46:00 Margarita Huang [id number] [place] [id number] [place] [id number] 2020-01-28 2020-02-01 Inpatient ASHLIE [facility] [id number] [place] 00:00:00 00:00:00 ROSIPAT Jo Method i 2019-12-28 2020-01-02 Inpatient 3 Ted Hassan [facility] [id number] [facility] 22:04:00 17:20:00 Ted Hassan 2019-11-09 2019-11-10 Emergency Martha, [facility] [id number] 23:06:12 01:26:00 Clovis Huang [id number] [place] [id number] [place] [id number] [id number] 2019-09-29 2019-09-29 [facility] [id number] 09:39:50 11:47:00 Johan [place] [id number] [place] [id number] [place] [id number] 2019-06-16 2019-06-16 Emergency Mary Bethnatsahaandrey, [facility] [id number] 07:08:27 08:57:00 Nadine Huang [id number] [place] [id number] [place] [id number] 2019-06-15 2019-06-15 Emergency ZehraShelley [facility] [id number] 11:30:00 13:30:00 Margarita [place] [id number] [place] [id number] [place] [id number] 2019-06-15 2019-06-15 Orders Doctor MCGINNIS [id number] 00:00:00 00:00:00 Only Unassigned, KAY [id number] [facility] 4.2.7.2.686 [id number] 2019-06-06 2019-06-06 Letter Clinic, [facility] [id number] 00:00:00 00:00:00 (Out) Neurology [facility] [id number] [facility] 4.2.7.2.686 [id number] 2019 2019 Urgent [place], [facility] [id number] 10:16:26 10:55:54 Care July [facility] [id number] Surgical 4.2.7.2.686 Special [phone] [facility] 2019 2019 Orders Doctor RAS [id number] 00:00:00 00:00:00 Only Unassigned, KAY [id number] [place] [facility] 4.2.7.2.686 [id number] 2019-01-24 2019-01-24 Emergency [facility] [id number] 15:49:15 22:27:00 Anitra Huang 350.1.13.10 [place] [id number] [place] [id number] [id number] 2019-01-24 2019-01-24 Orders Doctor RAS [id number] 00:00:00 00:00:00 Only Unassigned, KAY [id number] [place] [id number] [id number] 2018-12-21 2018-12-21 Emergency [facility] [id number] 17:07:20 19:42:00 Dejah Huang [id number] [place] 4.2.7.2.686 [place] [id number] [id number] 2018-12-21 2018-12-21 Orders Doctor RAS [id number] 00:00:00 00:00:00 Only Unassigned, KAY [id number] [place] [id number] Results Test Description Test Time Test [...] = Expiration Dt) 02-07-2021 N Thyroid Stimulating [id number] 07:26:04 Test Item Value Reference Range Interpretation Comments TSH (test code = TSH) 1.757 mcIU/mL 0.550-4.780 Lipid [id number] 07:26:04 Test Item Value Reference Range Interpretation [...] is LDL/HDL Ratio=L DL Calc/HDL Chol Hemoglobin [id number] 07:26:03 Test Item Value Reference Range Interpretation Comments Hemoglobin A1c (test code 4.9 % 4.0-5.8 Di abetic >=6.5 = Hemoglobin A1c) %Prediabet es 5.7-6.4 %Normal <5.7 % MYOCARD IMAGING, MULTI, [id number] 14:45:00FINAL REPORT PROCEDURE: Rest/Stress MYOCARDIAL PERFUSION SPECT with treadm ill\XA9\ CPT CODE: 36175 INDICATION: Chest pain HISTORY: Cardiac risk factors: [...] 5. Normal extracardiactracer distribution. 6. No previous [facility] study for comparison. NONINVASIVE RISK STRATIFICATION: The above findings are considered low risk (<1% annual mortality rate) based on the following criterion:- Normal or small myocardial perfusion defect at rest or with stress(JACC. 2012;59(9):857-81.) Signed: Albert Ruvalcaba MDRsarika Verified Date/Time: 03/17/2017 14:45:11 Reading Location: [address] Reading Room HEMOGLOBIN [id number] 08:29:00 Test Item Value Reference Range Interpretation Comments HEMOGLOBIN A1C (BEAKER) (test code = 5.5 % 4.3-6.1 368) CREATINE KINASE (CK), TOTAL AND [id number] 02:45:00 Test Item Value Reference Range Interpretation Comments CREATINE KINASE TOTAL (BEAKER) 34 U/L 29-200 (test code = 380) CREATINE KINASE-MB (BEAKER) (test 0.4 ng/mL 0.0-6.6 code = 750) CREATINE KINASE-MB INDEX (BEAKER) 1.2 % (test code = 395) CK-MB Reference Range:<6.7 Normal6.7-10.0 Borderline>10.0 AbnormalTROPONIN [id number] 02:45:00 Test Item Value Reference Range Interpretation [...] and persistent tachyarrhythmia.RAD, CHEST, 1 VIEW, NON [id number] 20:40:00Reason for exam:->chest painShould this be performed at the bedside?->YesFINAL REPORT EXAMINATION: AP PORTABLE CHEST RADIOGRAPH CLINICAL INDICATION:Chest pain IMPRESSION: Compared with 04/30/2016. No evidence of focal lung consolidation, pulmonary edema or pleural effusion. The heart size is normal. Mediastinal contours are sharp. No evidence of an acute osseous abnormality or pneumothorax. Signed: Santhosh Castle MDReport Verified Date/Time: 03/16/2017 20:40:21 Reading Location: [address] Reading Room B-TYPE NATRIURETIC FACTOR (BNP)2017-03-16 20:30:00 Test Item Value Reference Range Interpretation Comments B-TYPE NATRIURETIC PEPTIDE (BEAKER) < pg/mL 0-100 (test code = 700) COMPREHENSIVE METABOLIC [id number] 20:30:00 Test Item Value Reference Range Interpretation [...] ATED GFR. CREATINE KINASE (CK), TOTAL AND [id number] 20:28:00 Test Item Value Reference Range Interpretation Comments CREATINE KINASE TOTAL (BEAKER) 50 U/L 29-200 (test code = 380) CREATINE KINASE-MB (BEAKER) (test 0.5 ng/mL 0.0-6.6 code = 750) CREATINE KINASE-MB INDEX (BEAKER) 1.0 % (test code = 395) CK-MB Reference Range:<6.7 Normal6.7-10.0 Borderline>10.0 AbnormalTROPONIN [id number] 20:28:00 Test Item Value Reference Range Interpretation [...] failure, acidosis, acute neurological disease, and persistent tachyarrhythmia.[id number] 20:21:00 Test Item Value Reference Range Interpretation Comments MAGNESIUM (BEAKER) 2.2 mg/dL 1.6-2.6 Specimen slightly (test code = 627) hemolyzed [id number] 20:21:00 Test Item Value Reference Range Interpretation Comments PHOSPHORUS (BEAKER) 3.9 mg/dL 2.3-4.7 Specimen slightly (test code = 604) hemolyzed LIPID [id number] 20:21:00 Test Item Value Reference Range Interpretation [...] Borderline 130-159 High 160-189 Very High >=190PROTHROMBIN TIME/[id number] 20:07:00 Test Item Value Reference Range Interpretation Comments PROTIME (BEAKER) (test code = 13.0 seconds 11.7-14.7 759) INR (BEAKER) (test code = 370) 1.0 <=5.9 RECOMMENDED COUMADIN/WARFARIN INR THERAPY RANGESSTANDARD DOSE: 2.0 - 3.0 Includes: PROPHYLAXIS forvenous thrombosis, systemic embolization; TREATMENT for venous thrombosis and/or pulmonary embolus.HIGH RISK: Target INR is 2.5-3.5 for patients with mechanical heart valves.[id number] 20:07:00 Test Item Value Reference Range Interpretation Comments PARTIAL THROMBOPLASTIN TIME 26.9 seconds 22.5-36.0 (BEAKER) (test code = 760) CBC W/PLT COUNT & AUTO [id number] 19:57:00 Test Item Value Reference Range Interpretation [...] % 0-1 PERCENT (BEAKER) (test code = 0834)
[2020-07-26 12:29] LABS: Absolute Lymphocytes (CBC) 1.4 K/uL (0.7-4.9); Basophils % 1.2 % (0-1.3); Hematocrit 43.1 % (39.6-49.0); Lymphocytes % 22.9 % (15.3-44.8); MPV 8.9 fL (7.6-11.3); RBC Red Blood Cell Count 4.75 M/uL (4.33-5.43)
[2020-07-26 12:33] LABS: Protime INR 0.93
[2020-07-26] MEDS ORDERED: ONDANSETRON 4 MG/2 ML VIAL ONE (12:50)
[2020-07-26] MEDS ORDERED: NA CHLORIDE 0.9% 1,000 ML ONE (12:50)
[2020-07-26 13:19] LABS: ALT/SGPT 49 U/L (12-78); AST/SGOT 21 U/L (15-37); Albumin 4.3 g/dL (3.4-5.0); BUN Blood Urea Nitrogen 7 mg/dL (7-18); Bicarbonate 27 mmol/L (21-32); Bilirubin Direct < 0.1 mg/dL (0-0.2); Bilirubin Total 0.3 mg/dL (0.2-1.0); Glucose Level 105 mg/dL (74-106); Magnesium 1.9 mg/dL (1.8-2.4); NT PRO-BNP 75 pg/mL (<125); Potassium 3.3 mmol/L (3.5-5.1); Protein, Total 8.8 g/dL (6.4-8.2); Sodium Level 142 mmol/L (136-145); Troponin (Emerg Dept Use Only) < 0.02 ng/mL (0.0-0.045)
[2020-07-26] MEDS ORDERED: LORazepam 2 MG/ML VIAL ONE (13:19)
[2020-07-26] MEDS ORDERED: KETOROLAC 30 MG/ML INJ ONE (13:19)
[2020-07-26 14:06] LABS: Barbiturates NEGATIVE (NEGATIVE); Benzodiazepines NEGATIVE (NEGATIVE); Cocaine NEGATIVE (NEGATIVE); METHAMPHETAM POSITIVE (NEGATIVE); Methadone NEGATIVE (NEGATIVE); Opiates POSITIVE (NEGATIVE); Phencyclidine NEGATIVE (NEGATIVE); THC Cannibis NEGATIVE (NEGATIVE)
--- NOTE | 2020-07-26 14:39 | EDPHYS ---
Physician Documentation [facility] Name: Srini Simpson Age: 35 yrs Sex: Male : 1985 Arrival Date: 07/26/2020 Time: 11:55 Bed 16 Private MD: ED Physician Luis Carr HPI: 07/26 12:45 This 35 yrs old Male presents to ER via Ambulatory with complaints of tw4 Nausea/Vomiting, Irregular Pulse. 12:45 The patient presents to the emergency department with nausea, vomiting. Onset: The tw4 symptoms/episode began/occurred today. Possible causes: drug use. The symptoms are aggravated by nothing. The symptoms are alleviated by nothing. Associated signs and symptoms: Pertinent positives: palpitations. Severity of symptoms: At their worst the symptoms were moderate in the emergency department the symptoms are unchanged. The patient has not experienced similar symptoms in the past. Historical: - Allergies: 12:26 No Known Allergies; jl7 - Home Meds: 12:26 Klonopin 1 mg Oral tab 1 tab 2 times per day [Active]; metoprolol tartrate 50 mg Oral jl7 tab 1 tab 2 times per day [Active]; - PMHx: 12:26 Anxiety; Hypertension; Pyloric Stenosis; Depression; ETOH/drug abuse; jl7 - PSHx: 12:26 pyloric stenosis repair.; jl7 - Immunization history:: Adult Immunizations unknown. - Social history:: Smoking status: Patient reports the use of cigarette tobacco products, smokes one pack cigarettes per day. Patient uses alcohol, on a daily basis. street drugs, heroin, marijuana, Methamphetamine (Meth). ROS: 12:45 Constitutional: Negative for fever, chills, and weight loss, Eyes: Negative for injury, tw4 pain, redness, and discharge, Respiratory: Negative for shortness of breath, cough, wheezing, and pleuritic chest pain. 12:45 Back: Negative for injury and pain, MS/Extremity: Negative for injury and deformity, Skin: Negative for injury, rash, and discoloration, Neuro: Negative for headache, weakness, numbness, tingling, and seizure. 12:45 Cardiovascular: Positive for chest pain, palpitations, Negative for edema, orthopnea. 12:45 Abdomen/GI: Positive for abdominal pain, nausea and vomiting, nausea, vomiting, and diarrhea, nausea, vomiting. Exam: 12:45 Head/Face: Normocephalic, atraumatic. Eyes: Pupils equal round and reactive to light, tw4 extra-ocular motions intact. Lids and lashes normal. Conjunctiva and sclera are non-icteric and not injected. Cornea within normal limits. Periorbital areas with no swelling, redness, or edema. Chest/axilla: Normal chest wall appearance and motion. Nontender with no deformity. No lesions are appreciated. 12:45 Respiratory: Lungs have equal breath sounds bilaterally, clear to auscultation and percussion. No rales, rhonchi or wheezes noted. No increased work of breathing, no retractions or nasal flaring. Abdomen/GI: Soft, non-tender, with normal bowel sounds. No distension or tympany. No guarding or rebound. No evidence of tenderness throughout. Back: No spinal tenderness. No costovertebral tenderness. Full range of motion. MS/ Extremity: Pulses equal, no cyanosis. Neurovascular intact. Full, normal range of motion. Neuro: Awake and alert, GCS 15, oriented to person, place, time, and situation. Cranial nerves II-XII grossly intact. Motor strength 5/5 in all extremities. Sensory grossly intact. Cerebellar exam normal. Normal gait. 12:45 Constitutional: The patient appears in obvious distress, moderately distressed. 12:45 Cardiovascular: Rate: tachycardic, actual rate is 131 bpm, Rhythm: regular. Vital Signs: 12:00 BP 181 / 124; Pulse 131; Resp 25 S; Temp 97.4(TE); Pulse Ox 98% on R/A; Weight 83.91 kg jl7 (R); Height 5 ft. 7 in. (170.18 cm) (R); 13:00 BP 174 / 117; Pulse 125; Resp 22; Pulse Ox 98% ; jl7 13:28 BP 161 / 105; Pulse 111; Resp 14; Pulse Ox 96% ; jl7 14:35 BP 157 / 98; Pulse 106; Resp 17; Pulse Ox 96% ; jl7 12:00 Body Mass Index 28.97 (83.91 kg, 170.18 cm) jl7 MDM: 12:34 Patient medically screened. tw4 18:15 Data reviewed: vital signs, nurses notes. Data interpreted: Pulse oximetry: tw4 Interpretation: normal. Counseling: I had a detailed discussion with the patient and/or guardian regarding: the historical points, exam findings, and any diagnostic results supporting the discharge/admit diagnosis, lab results, the need for outpatient follow up. Medication response: ativan. Response to treatment: the patient's symptoms have markedly improved after treatment, and as a result, I will discharge patient. Special discussion: I discussed with the patient/guardian in detail that at this point there is no indication for admission to the hospital. It is understood, however, that if the symptoms persist or worsen the patient needs to return immediately for re-evaluation. 07/26 12:04 Order name: Basic Metabolic Panel [facility] 07/26 12:04 Order name: CBC with Diff; Complete Time: 14:29 [facility] 07/26 14:29 Interpretation: Normal except: PLT 191. [facility] 07/26 12:04 Order name: LFT's [facility] 07/26 12:04 Order name: Magnesium [facility] 07/26 12:04 Order name: NT PRO-BNP [facility] 07/26 12:04 Order name: PT-INR [facility] 07/26 12:04 Order name: Troponin (emerg Dept Use Only) [facility] 07/26 12:04 Order name: UDS; Complete Time: 14:29 [facility] 07/26 14:29 Interpretation: Normal except: OPI POSITIVE; METHAMPHETAMINE POSITIVE. [facility] 07/26 12:05 Order name: Basic Metabolic Panel [facility] 07/26 13:48 Order name: Urine Dipstick--Ancillary (enter results) [facility] 07/26 12:04 Order name: EKG; Complete Time: 12:05 [facility] 07/26 12:04 Order name: Cardiac monitoring; Complete Time: 12:28 [facility] 07/26 12:04 Order name: EKG - Nurse/Tech; Complete Time: 12:28 [facility] 07/26 12:04 Order name: IV Saline Lock; Complete Time: 12:28 [facility] 07/26 12:04 Order name: Labs collected and sent; Complete Time: 12:28 [facility] 07/26 12:04 Order name: O2 Per Protocol; Complete Time: 12:28 07/26 12:04 Order name: O2 Sat Monitoring; Complete Time: 12:28 tw Administered Medications: 12:38 Drug: NS 0.9% 1000 ml Route: IV; Rate: 1 bolus; Site: left antecubital; 7 13:30 Follow up: Response: No adverse reaction; IV Status: Completed infusion; IV Intake: jl7 1000ml 12:38 Drug: Zofran (Ondansetron) 4 mg Route: IVP; Site: left antecubital; jl7 13:00 Follow up: Response: No adverse reaction; Nausea is decreased jl7 13:00 Drug: Ativan 1 mg Route: IVP; Site: left antecubital; jl7 13:30 Follow up: Response: No adverse reaction; Marked relief of symptoms jl7 13:02 Drug: TORadol 30 mg Route: IVP; Site: left antecubital; jl7 13:30 Follow up: Response: No adverse reaction; Pain is decreased jl7 Disposition: 07/26/20 14:39 Discharged to Home. Impression: Adverse effect of amphetamines, Adverse effect of other narcotics, Tachycardia, unspecified. - Condition is Stable. - Discharge Instructions: Stimulant Use Disorder-Methamphetamines, Sinus Tachycardia. - Medication Reconciliation Form, Thank You Letter, Antibiotic Education, Prescription Opioid Use form. - Follow up: Private Physician; When: Upon discharge from the Emergency Department; Reason: Recheck today's complaints, Continuance of care, Re-evaluation by your physician. - Problem is new. - Symptoms have improved. Signatures: Dispatcher [employer] Mahesh Burt RN RN jl7 Luis Carr MD MD tw4 Corrections: (The following items were deleted from the chart) 14:54 14:39 07/26/2020 14:39 Discharged to Home. Impression: Adverse effect of amphetamines; jl7 Adverse effect of other narcotics; Tachycardia, unspecified. Condition is Stable. Forms are Medication Reconciliation Form, Thank You Letter, Antibiotic Education, Prescription Opioid Use. Follow up: Private Physician; When: Upon discharge from the Emergency Department; Reason: Recheck today's complaints, Continuance of care, Re-evaluation by your physician. Problem is new. Symptoms have improved. tw4
--- NOTE | 2020-07-26 14:39 | ER ---
Nurse's Notes [facility] Name: Srini Simpson Age: 35 yrs Sex: Male : 1985 Arrival Date: 07/26/2020 Time: 11:55 Bed 16 Private MD: Diagnosis: Adverse effect of amphetamines;Adverse effect of other narcotics;Tachycardia, unspecified Presentation: 07/26 12:00 Chief complaint: Patient states: "I smoked meth, snorted heroin and drank a lot of beer jl7 last night." Reports racing heart and dizziness. Coronavirus screen: Client denies travel out of the [place] in the last 14 days. At this time, the client does not indicate any symptoms associated with coronavirus-19. Ebola Screen: No symptoms or risks identified at this time. Initial Sepsis Screen: Does the patient meet any 2 criteria? RR > 20 per min. HR > 90 bpm. Does the patient have a suspected source of infection? No. Patient's initial sepsis screen is negative. Risk Assessment: Do you want to hurt yourself or someone else? Patient reports no desire to harm self or others. Onset of symptoms was July 26, 2020. Care prior to arrival: None. 12:00 Method Of Arrival: Ambulatory jl7 12:00 Acuity: CHRISTINE 2 jl7 Triage Assessment: 12:00 General: Appears distressed, uncomfortable, unkempt, Behavior is cooperative, anxious, jl7 crying. Pain: Denies pain. Neuro: Level of Consciousness is awake, alert, obeys commands, Oriented to person, place, time, situation. Cardiovascular: Reports palpitations, Rhythm is sinus tachycardia. Respiratory: Airway is patent Respiratory effort is even, unlabored, Respiratory pattern is symmetrical, tachypnea. GI: Abdomen is round non-distended, Reports nausea. Derm: Skin is diaphoretic, Skin is normal, Skin temperature is warm. Historical: - Allergies: 12:26 No Known Allergies; jl7 - Home Meds: 12:26 Klonopin 1 mg Oral tab 1 tab 2 times per day [Active]; metoprolol tartrate 50 mg Oral jl7 tab 1 tab 2 times per day [Active]; - PMHx: 12:26 Anxiety; Hypertension; Pyloric Stenosis; Depression; ETOH/drug abuse; jl7 - PSHx: 12:26 pyloric stenosis repair.; jl7 - Immunization history:: Adult Immunizations unknown. - Social history:: Smoking status: Patient reports the use of cigarette tobacco products, smokes one pack cigarettes per day. Patient uses alcohol, on a daily basis. street drugs, heroin, marijuana, Methamphetamine (Meth). Screenin:00 Abuse screen: Denies threats or abuse. Denies injuries from another. Nutritional [facility] screening: No deficits noted. Tuberculosis screening: No symptoms or risk factors identified. Fall Risk No fall in past 12 months (0 pts). No secondary diagnosis (0 pts). IV access (20 points). Ambulatory Aid- None/Bed Rest/Nurse Assist (0 pts). Gait- Normal/Bed Rest/Wheelchair (0 pts) Mental Status- Oriented to own ability (0 pts). Total Martinez Fall Scale indicates No Risk (0-24 pts). Assessment: 12:00 General: See triage assessment. [facility] 13:00 Reassessment: Patient appears in no apparent distress at this time. No changes from [facility] previously documented assessment. Patient and/or family updated on plan of care and expected duration. Pain level reassessed. Patient is alert, oriented x 3, equal unlabored respirations, skin warm/dry/pink. 14:00 Reassessment: Patient appears in no apparent distress at this time. No changes from [facility] previously documented assessment. Patient and/or family updated on plan of care and expected duration. Pain level reassessed. Patient is alert, oriented x 3, equal unlabored respirations, skin warm/dry/pink. 14:35 Reassessment: Dr. Carr at bedside discussing results and POC. [facility] Vital Signs: 12:00 BP 181 / 124; Pulse 131; Resp 25 S; Temp 97.4(TE); Pulse Ox 98% on R/A; Weight 83.91 kg jl7 (R); Height 5 ft. 7 in. (170.18 cm) (R); 13:00 BP 174 / 117; Pulse 125; Resp 22; Pulse Ox 98% ; jl7 13:28 BP 161 / 105; Pulse 111; Resp 14; Pulse Ox 96% ; jl7 14:35 BP 157 / 98; Pulse 106; Resp 17; Pulse Ox 96% ; [facility] 12:00 Body Mass Index 28.97 (83.91 kg, 170.18 cm) jl7 ED Course: 11:55 Patient arrived in ED. ds1 12:00 Arm band placed on right wrist. jl7 12:00 Patient has correct armband on for positive identification. Placed in gown. Bed in low jl7 position. Call light in reach. Side rails up X 1. door clamper on. Pulse ox on. NIBP on. 12:04 Luis Carr MD is Attending Physician. tw4 12:10 Initial lab(s) drawn, by ms, sent to lab. Inserted saline lock: 20 gauge in left jl7 antecubital area, using aseptic technique. Blood collected. 12:10 EKG done, by ED staff, reviewed by Luis Carr MD. jl7 12:19 Mahesh Ng, ALTON is Primary Nurse. jl7 12:23 Triage completed. jl7 14:54 No provider procedures requiring assistance completed. IV discontinued, intact, jl7 bleeding controlled, No redness/swelling at site. Pressure dressing applied. Administered Medications: 12:38 Drug: NS 0.9% 1000 ml Route: IV; Rate: 1 bolus; Site: left antecubital; jl7 13:30 Follow up: Response: No adverse reaction; IV Status: Completed infusion; IV Intake: jl7 1000ml 12:38 Drug: Zofran (Ondansetron) 4 mg Route: IVP; Site: left antecubital; jl7 13:00 Follow up: Response: No adverse reaction; Nausea is decreased jl7 13:00 Drug: Ativan 1 mg Route: IVP; Site: left antecubital; jl7 13:30 Follow up: Response: No adverse reaction; Marked relief of symptoms jl7 13:02 Drug: TORadol 30 mg Route: IVP; Site: left antecubital; jl7 13:30 Follow up: Response: No adverse reaction; Pain is decreased jl7 Intake: 13:30 IV: 1000ml; Total: 1000ml. jl7 Outcome: 14:39 Discharge ordered by . tw4 14:54 Discharged to home ambulatory. jl7 14:54 Condition: stable 14:54 Discharge instructions given to patient, Instructed on discharge instructions, follow up and referral plans. Demonstrated understanding of instructions, follow-up care. 14:54 Patient left the ED. jl7 Signatures: Ilda Joseph ds1 Mahesh Ng, RN RN jl7 Luis Carr MD MD tw4 Corrections: (The following items were deleted from the chart) 13:28 12:10 Inserted saline lock: 20 gauge in right antecubital area, using aseptic jlSeveriano technique. Blood collected. jl7
[2020-07-26 15:00] LABS: Urine Blood NEGATIVE (NEG); Urine Glucose NEGATIVE (NEG); Urine Protein 1+ (NEG); Urine pH 8.5 (5.0-7.0)
[2020-07-26 15:03] VITALS: TEMP 97.4
[2020-07-26 15:05] VITALS: O2SAT 96
[2020-07-26 15:07] VITALS: BP 157/98
== END 2020-07-26 14:54 | disposition home or self-care (01) ==
LOC: ER 11:54
DX: R00.0 Tachycardia, unspecified (principal); T43.625A Adverse effect of amphetamines, initial encounter; T40.695A Adverse effect of other narcotics, initial encounter; F41.8 Other specified anxiety disorders; I10 Essential (primary) hypertension; F17.210 Nicotine dependence, cigarettes, uncomplicated
CPT/HCPCS: 36415; 80048; 80076; 80307; 81003; 83735; 83880; 84484; 85025; 85610; 93005; 96361; 96374; 96375; 99284; J2405; J7030

== ENCOUNTER 2020-08-12 11:25 | Emergency (ER) | payer SELFPAY ==
--- OUTSIDE RECORDS SUMMARY | 2020-08-12 11:28 | XMS REPORT | Continuity of Care Document ---
:[address] [facility] t Address [address] [place] [address] [address] [place] [address] Care Team Providers Name Role Phone Maame Luke Primary Care Physician Ernie Hassan Attending Clinician Unavailable Ernie Hassan Attending Clinician Unavailable Shabbir BELTRÁN Attending Clinician Deion Rincon DO Attending Clinician Margarita Marroquin Attending Clinician ASHLIE Attending Clinician Unavailable Lexy Thomas MD Attending Clinician Singer LAW Attending Clinician Fatimah BELTRÁN S Attending Clinician Doctor Unassigned, Name Attending Clinician Unavailable Clinic, Neurology Continuity Attending Clinician UnavailLindsey DAVENPORT Attending Clinician Kem Herrera Attending Clinician Jeremiah DAVENOPRT Attending Clinician Joseph GARCIA Attending Clinician Unavailable [...] Stop Date Source Natural father Heart attack [facility] Paternal grandfather Heart attack I [facility] Social History Social Habit Start Date Stop Date Quantity Comments Source Alcohol Comment socially [facility] Sex Assigned [facility] History of tobacco Cigarette Smoker [facility] use [facility] Cigarettes smoked 2017-03-16 2017-03-16 [facility] - current (pack per 00:00:00 00:00:00 [facility] day) - Reported Tobacco use and 2017-03-16 2017-03-16 Never used [facility] - exposure 00:00:00 00:00:00 [facility] Alcohol intake 2017-03-16 2017-03-16 Current drinker [facility] S t kes - 00:00:00 00:00:00 of [facility] (finding) Smoking Status Start Date Stop Date Source Current every day smoker 2017-03-16 00:00:00 [facility] Medications This patient has no known medications. Procedures This patient has no known procedures. Encounters Start End Encounter Admission Attending Care Care Encounter Source Date/Time Date/Time Type Type Clinicians Facility Department ID 2019-12-28 Inpatient 3 Ted Hassan [facility] [id number] 22:04:00 Ted Hassan - [facility] 2020-07-28 2020-07-28 Emergency [facility] [id number] 13:17:00 20:00:00 [place] [id number] [place] [id number] [place] [id number] [id number] 2020-06-30 2020-06-30 Emergency Sergey, [facility] [id number] 05:26:00 10:11:00 Ciera Huang [id number] [place] [id number] [place] [id number] [id number] 2020-06-23 2020-06-23 Emergency Shelley Shahid [facility] [id number] 13:46:00 15:46:00 Margarita Huang [id number] [place] [id number] [place] [id number] 2020-01-28 2020-02-01 Inpatient [facility] [id number] [place] [address] 00:00:00 00:00:00 ROSI Jo Method i 2019-12-28 2020-01-02 Inpatient 3 Ted Hassan [facility] PS[facility] [id number] . 22:04:00 17:20:[address] [facility] 2019-11-09 2019-11-10 [facility] [id number] 23:06:12 01:26:00 Clovis Huang [id number] [place] [id number] [place] [id number] [id number] 2019-09-29 2019-09-29 Emergency Porras, [facility] [id number] 09:39:50 11:47:00 Johan Huang [id number] [place] [id number] [place] [id number] [id number] 2019-06-16 2019-06-16 Emergency Mary Bethriandrey, [facility] [id number] 07:08:27 08:57:00 Nadine Huang [id number] [place] [id number] [place] [id number] [id number] 2019-06-15 2019-06-15 Emergency Shelley Shahid [facility] [id number] 11:30:00 13:30:00 Margarita Huang [id number] [place] [id number] [place] [phone] [id number] 2019-06-15 2019-06-15 Orders Doctor MCGINNIS [id number] 00:00:00 00:00:00 Only Unassigned, KAY [id number] [place] [facility] 4.2.7.2.686 [id number] [id number] 2019-06-06 2019-06-06 Letter Clinic, [facility] [id number] 00:00:00 00:00:00 (Out) Neurology [facility] [id number] [facility]IN[facility] 4.2.7.2.686 [id number] 2019 2019 Urgent [facility] [id number] 10:16:26 10:55:54 Care [facility] [id number] Surgical [id number] [facility] [id number] teddy Huang 2019 2019 Orders Doctor MCGINNIS [id number] 00:00:00 00:00:00 Only Unassigned, KAY 350.1.13.10 [place] [facility] .2.7.2.686 [id number] [id number] 2019-01-24 2019-01-24 Emergency [facility] [id number] 15:49:15 22:27:00 Anitra Huang [id number] [place] 4.2.7.2.686 [place] [id number] 2019-01-24 2019-01-24 Orders Doctor MCGINNIS [id number] 00:00:00 00:00:00 Only Unassigned, KAY [id number] [place] [facility] .2.7.2.686 [id number] [id number] 2018-12-21 2018-12-21 Emergency [facility] [id number] 17:07:20 19:42:00 Dejahbetina Huang 350.1.13.10 [place] 4.2.7.2.686 [place] [phone] [id number] 2018-12-21 2018-12-21 Orders Doctor RAS [id number] 00:00:00 00:00:00 Only Unassigned, KAY [id number] [place] [facility] 4.2.7.2.686 [id number] [id number] Results Test Description Test Time Test [...] = Expiration Dt) 02-07-2021 N Thyroid Stimulating [id number] 07:26:04 Test Item Value Reference Range Interpretation Comments TSH (test code = TSH) 1.757 mcIU/mL 0.550-4.780 Lipid [id number] 07:26:04 Test Item Value Reference Range Interpretation [...] is LDL/HDL Ratio=L DL Calc/HDL Chol Hemoglobin [id number] 07:26:03 Test Item Value Reference Range Interpretation Comments Hemoglobin A1c (test code 4.9 % 4.0-5.8 Di abetic >=6.5 = Hemoglobin A1c) %Prediabet es 5.7-6.4 %Normal <5.7 % MYOCARD IMAGING, MULTI, [id number] 14:45:00FINAL REPORT PROCEDURE: Rest/Stress MYOCARDIAL PERFUSION SPECT with treadm ill\XA9\ CPT CODE: 99841 INDICATION: Chest pain HISTORY: Cardiac risk factors: [...] 5. Normal extracardiactracer distribution. 6. No previous [facility] study for comparison. NONINVASIVE RISK STRATIFICATION: The above findings are considered low risk (<1% annual mortality rate) based on the following criterion:- Normal or small myocardial perfusion defect at rest or with stress(JACC. 2012;59(9):857-81.) Signed: Albert Ruvalcabaort Verified Date/Time: 03/17/2017 14:45:11 Reading Location: [address] Reading Room HEMOGLOBIN [id number] 08:29:00 Test Item Value Reference Range Interpretation Comments HEMOGLOBIN A1C (BEAKER) (test code = 5.5 % 4.3-6.1 368) CREATINE KINASE (CK), TOTAL AND [id number] 02:45:00 Test Item Value Reference Range Interpretation Comments CREATINE KINASE TOTAL (BEAKER) 34 U/L 29-200 (test code = 380) CREATINE KINASE-MB (BEAKER) (test 0.4 ng/mL 0.0-6.6 code = 750) CREATINE KINASE-MB INDEX (BEAKER) 1.2 % (test code = 395) CK-MB Reference Range:<6.7 Normal6.7-10.0 Borderline>10.0 AbnormalTROPONIN [id number] 02:45:00 Test Item Value Reference Range Interpretation [...] and persistent tachyarrhythmia.RAD, CHEST, 1 VIEW, NON [id number] 20:40:00Reason for exam:->chest painShould this be performed at the bedside?->YesFINAL REPORT EXAMINATION: AP PORTABLE CHEST RADIOGRAPH CLINICAL INDICATION:Chest pain IMPRESSION: Compared with 04/30/2016. No evidence of focal lung consolidation, pulmonary edema or pleural effusion. The heart size is normal. Mediastinal contours are sharp. No evidence of an acute osseous abnormality or pneumothorax. Signed: Santhosh Castle MDReport Verified Date/Time: 03/16/2017 20:40:21 Reading Location: [address] Reading Room B-TYPE NATRIURETIC FACTOR (BNP)2017-03-16 20:30:00 Test Item Value Reference Range Interpretation Comments B-TYPE NATRIURETIC PEPTIDE (BEAKER) < pg/mL 0-100 (test code = 700) COMPREHENSIVE METABOLIC [id number] 20:30:00 Test Item Value Reference Range Interpretation [...] ATED GFR. CREATINE KINASE (CK), TOTAL AND [id number] 20:28:00 Test Item Value Reference Range Interpretation Comments CREATINE KINASE TOTAL (BEAKER) 50 U/L 29-200 (test code = 380) CREATINE KINASE-MB (BEAKER) (test 0.5 ng/mL 0.0-6.6 code = 750) CREATINE KINASE-MB INDEX (BEAKER) 1.0 % (test code = 395) CK-MB Reference Range:<6.7 Normal6.7-10.0 Borderline>10.0 AbnormalTROPONIN [id number] 20:28:00 Test Item Value Reference Range Interpretation [...] failure, acidosis, acute neurological disease, and persistent tachyarrhythmia.[id number] 20:21:00 Test Item Value Reference Range Interpretation Comments MAGNESIUM (BEAKER) 2.2 mg/dL 1.6-2.6 Specimen slightly (test code = 627) hemolyzed [id number] 20:21:00 Test Item Value Reference Range Interpretation Comments PHOSPHORUS (BEAKER) 3.9 mg/dL 2.3-4.7 Specimen slightly (test code = 604) hemolyzed LIPID [id number] 20:21:00 Test Item Value Reference Range Interpretation [...] Borderline 130-159 High 160-189 Very High >=190PROTHROMBIN TIME/[id number] 20:07:00 Test Item Value Reference Range Interpretation Comments PROTIME (BEAKER) (test code = 13.0 seconds 11.7-14.7 759) INR (BEAKER) (test code = 370) 1.0 <=5.9 RECOMMENDED COUMADIN/WARFARIN INR THERAPY RANGESSTANDARD DOSE: 2.0 - 3.0 Includes: PROPHYLAXIS forvenous thrombosis, systemic embolization; TREATMENT for venous thrombosis and/or pulmonary embolus.HIGH RISK: Target INR is 2.5-3.5 for patients with mechanical heart valves.[id number] 20:07:00 Test Item Value Reference Range Interpretation Comments PARTIAL THROMBOPLASTIN TIME 26.9 seconds 22.5-36.0 (BEAKER) (test code = 760) CBC W/PLT COUNT & AUTO [id number] 19:57:00 Test Item Value Reference Range Interpretation [...] % 0-1 PERCENT (BEAKER) (test code = 5161)
[2020-08-12] MEDS ORDERED: dexAMETHasone 10 MG/ML VIAL ONE (13:56)
[2020-08-12] MEDS ORDERED: LEVALBUTEROL 1.25 MG/3 ML NEB ONE (13:56)
[2020-08-12 15:26] LABS: SARS-COV-2 RT PCR NEGATIVE (NEGATIVE)
--- NOTE | 2020-08-12 16:25 | RAD REPORT ---
EXAM DESCRIPTION: RAD - Chest Single View - 08/12/2020 4:18 pm CLINICAL HISTORY: cough, sob Chest pain. COMPARISON: Chest Single View dated 07/21/2020; Chest Single View dated 07/19/2020; Chest Single View dated 07/10/2020; Chest Single View dated 07/06/2020 FINDINGS: Portable technique limits examination quality. The lungs are grossly clear. The heart is normal in size. No displaced fractures. IMPRESSION: No acute intrathoracic process suspected.
--- NOTE | 2020-08-12 16:30 | ER ---
Nurse's Notes [facility] Name: Srini Simpson Age: 35 yrs Sex: Male : 1985 Arrival Date: 08/12/2020 Time: 11:27 Bed 18 Private MD: Diagnosis: Acute bronchitis Presentation: 08/12 12:12 Chief complaint: Patient states: "I am having a lot of coughing, feeling hard to breath jd3 and some dizziness.". Coronavirus screen: chills, cough unrelated to allergies, Client presents with at least one sign or symptom that may indicate coronavirus-19. Standard/surgical mask placed on the client. Provider contacted for isolation considerations. Ebola Screen: Patient negative for fever greater than or equal to 101.5 degrees Fahrenheit, and additional compatible Ebola Virus Disease symptoms. Initial Sepsis Screen: Does the patient meet any 2 criteria? No. Patient's initial sepsis screen is negative. Does the patient have a suspected source of infection? No. Patient's initial sepsis screen is negative. Risk Assessment: Do you want to hurt yourself or someone else? Patient reports no desire to harm self or others. Onset of symptoms was August 07, 2020. 12:12 Method Of Arrival: Ambulatory jd3 12:12 Acuity: CHRISTINE 3 jd3 Historical: - Allergies: 12:14 No Known Allergies; jd3 - Home Meds: 12:14 Klonopin 1 mg Oral tab 1 tab 2 times per day [Active]; metoprolol tartrate 50 mg Oral jd3 tab 1 tab 2 times per day [Active]; - PMHx: 12:14 Anxiety; Depression; ETOH/drug abuse; Hypertension; Pyloric Stenosis; jd3 - PSHx: 12:14 pyloric stenosis repair.; jd3 - Immunization history:: Adult Immunizations up to date. - Social history:: Smoking status: Patient reports the use of cigarette tobacco products, smokes one-half pack cigarettes per day. Screenin:06 Abuse screen: Denies threats or abuse. Denies injuries from another. Nutritional zb screening: No deficits noted. Tuberculosis screening: No symptoms or risk factors identified. Fall Risk None identified. Assessment: 13:26 Reassessment: ECP at bedside. zb 13:30 General: Appears uncomfortable, Behavior is calm, cooperative, appropriate for age, zb Reports chills for feeling ill for fatigue for 2-3 days. Pain: Complains of pain in chest Pain currently is 2 out of 10 on a pain scale. Quality of pain is described as pressure. Neuro: Level of Consciousness is awake, alert, obeys commands, Oriented to person, place, time, situation. Cardiovascular: Patient's skin is warm and dry. Respiratory: Reports cough that is productive, hacking, since 2-3 days pain with cough Airway is patent Respiratory effort is even, unlabored, Respiratory pattern is regular, symmetrical. GI: No signs and/or symptoms were reported involving the gastrointestinal system. : No signs and/or symptoms were reported regarding the genitourinary system. EENT: Reports nasal congestion nasal discharge sore throat. . Derm: Skin is intact, is healthy with good turgor, Skin is diaphoretic, Skin is normal, Skin temperature is warm. Musculoskeletal: Range of motion: intact in all extremities. 15:00 Reassessment: Patient appears in no apparent distress at this time. Patient and/or zb family updated on plan of care and expected duration. Pain level reassessed. Patient is alert, oriented x 3, equal unlabored respirations, skin warm/dry/pink. patient ambulated to restroom. up at tracy. 16:00 Reassessment: Patient appears in no apparent distress at this time. Patient and/or zb family updated on plan of care and expected duration. Pain level reassessed. Patient is alert, oriented x 3, equal unlabored respirations, skin warm/dry/pink. Patient states feeling better. 16:55 Reassessment: Patient appears in no apparent distress at this time. Patient and/or zb family updated on plan of care and expected duration. Pain level reassessed. Patient is alert, oriented x 3, equal unlabored respirations, skin warm/dry/pink. d/c instructions given. pt up at tracy. no question at this time gait even and steady. Vital Signs: 12:14 BP 143 / 98; Pulse 84; Resp 18 S; Temp 98.1(TE); Pulse Ox 99% on R/A; Weight 83.91 kg jd3 (R); Height 5 ft. 7 in. (170.18 cm) (R); Pain 4/10; 14:09 BP 148 / 80; Pulse 84; Resp 16; Pulse Ox 100% on R/A; zb 16:57 BP 138 / 79; Pulse 82; Resp 16; Pulse Ox 98% on R/A; zb 12:14 Body Mass Index 28.97 (83.91 kg, 170.18 cm) [facility] ED Course: 11:27 Patient arrived in ED. as 12:13 Triage completed. jd3 12:15 Arm band placed on. jd3 13:16 Savana Campbell, RN is Primary Nurse. zb 13:18 Timmy Nleson PA is PHCP. rachelm 13:18 Mary Ro MD is Attending Physician. jmm 14:06 Patient has correct armband on for positive identification. Bed in low position. Call zb light in reach. Side rails up X 1. Pulse ox on. NIBP on. Door closed. Noise minimized. 16:18 Chest Single View XRAY In Process Unspecified. EDMS 16:56 No provider procedures requiring assistance completed. Patient did not have IV access zb during this emergency room visit. Administered Medications: 13:46 Drug: Xopenex (3) 1.25 mg Route: Inhalation; zb 16:57 Follow up: Response: No adverse reaction; Marked relief of symptoms zb 13:46 Drug: Decadron (dexamethasone) 10 mg Route: IM; Site: left deltoid; zb 15:32 Follow up: Response: No adverse reaction; Marked relief of symptoms zb 16:58 Follow up: Response: No adverse reaction; Marked relief of symptoms zb Outcome: 16:29 Discharge ordered by MD. rachel 16:56 Discharged to home ambulatory. zb 16:56 Condition: good 16:56 Discharge instructions given to patient, Instructed on discharge instructions, follow up and referral plans. medication usage, Demonstrated understanding of instructions, follow-up care, medications, Prescriptions given X 2. 16:58 Patient left the ED. zb Signatures: Dispatcher [employer] EDMS Timmy Nelson PA PA jmm Martinez, Amelia as Davies, Jonathon, RN RN jSavana Knight RN RN zb
--- NOTE | 2020-08-12 16:30 | EDPHYS ---
Physician Documentation [facility] Name: Srini Simpson Age: 35 yrs Sex: Male : 1985 Arrival Date: 08/12/2020 Time: 11:27 Bed 18 Private MD: ED Physician Mary Ro HPI: 08/12 13:43 This 35 yrs old Male presents to ER via Ambulatory with complaints of Flu jmm Symptoms. 13:43 The patient or guardian reports cough. Onset: The symptoms/episode began/occurred jmm gradually, 3 day(s) ago. Modifying factors: The symptoms are alleviated by nothing. the symptoms are aggravated by nothing. Associated signs and symptoms: Pertinent positives:. It is unknown whether or not the patient has had similar symptoms in the past. This is a 35 year old male with a history of depression anxiety that presents ot the ED with complaints of cough, sob, chills beginning approx 3 days ago. Patient denies known exposure to covid 19. . Historical: - Allergies: 12:14 No Known Allergies; jd3 - Home Meds: 12:14 Klonopin 1 mg Oral tab 1 tab 2 times per day [Active]; metoprolol tartrate 50 mg Oral jd3 tab 1 tab 2 times per day [Active]; - PMHx: 12:14 Anxiety; Depression; ETOH/drug abuse; Hypertension; Pyloric Stenosis; jd3 - PSHx: 12:14 pyloric stenosis repair.; jd3 - Immunization history:: Adult Immunizations up to date. - Social history:: Smoking status: Patient reports the use of cigarette tobacco products, smokes one-half pack cigarettes per day. ROS: 13:43 Constitutional: Positive for body aches, chills. jmm 13:43 Respiratory: Positive for cough. 13:43 All other systems are negative. Exam: 13:43 Constitutional: This is a well developed, well nourished patient who is awake, alert, jmm and in no acute distress. Head/Face: atraumatic. Eyes: EOMI, no conjunctival erythema appreciated ENT: Moist Mucus Membranes Neck: Trachea midline, Supple Chest/axilla: Normal chest wall appearance and motion. Cardiovascular: Regular rate and rhythm. No edema appreciated 13:43 Abdomen/GI: Non distended, soft Back: Normal ROM Skin: General appearance color normal MS/ Extremity: Moves all extremities, no obvious deformities appreciated, no edema noted to the lower extremities Neuro: Awake and alert, normal gait Psych: Behavior is normal, Mood is normal, Patient is cooperative and pleasant 13:43 Respiratory: the patient does not display signs of respiratory distress, Respirations: normal, Breath sounds: wheezing: that is mild, is scattered. Vital Signs: 12:14 BP 143 / 98; Pulse 84; Resp 18 S; Temp 98.1(TE); Pulse Ox 99% on R/A; Weight 83.91 kg jd3 (R); Height 5 ft. 7 in. (170.18 cm) (R); Pain 4/10; 14:09 BP 148 / 80; Pulse 84; Resp 16; Pulse Ox 100% on R/A; zb 16:57 BP 138 / 79; Pulse 82; Resp 16; Pulse Ox 98% on R/A; zb 12:14 Body Mass Index 28.97 (83.91 kg, 170.18 cm) jd3 MDM: 13:27 Patient medically screened. [facility] 16:28 Data reviewed: vital signs, nurses notes. Counseling: I had a detailed discussion with nilson the patient and/or guardian regarding: the historical points, exam findings, and any diagnostic results supporting the discharge/admit diagnosis, lab results, radiology results, the need for outpatient follow up, smoking cessation. ED course: Patient is alert and non toxic in appearance in the ED. No signs of resp distress. Patient advised to follow up with pcp and otherwise given strict return precautions. Patient understood and agrees with the plan of care. . 08/12 13:29 Order name: Flu [facility] 08/12 13:29 Order name: COVID-19 : Document "Date of Symptom Onset" if Symptomatic. [facility] 08/12 15:13 Order name: Chest Single View XRAY; Complete Time: 16:28 [facility] 08/12 15:26 Order name: COVID-19/FLU A+B; Complete Time: 15:26 EDMS Administered Medications: 13:46 Drug: Xopenex (3) 1.25 mg Route: Inhalation; zb 16:57 Follow up: Response: No adverse reaction; Marked relief of symptoms zb 13:46 Drug: Decadron (dexamethasone) 10 mg Route: IM; Site: left deltoid; zb 15:32 Follow up: Response: No adverse reaction; Marked relief of symptoms zb 16:58 Follow up: Response: No adverse reaction; Marked relief of symptoms zb Disposition: 18:51 Co-signature as Attending Physician, Mary Ro MD. ma2 Disposition: 08/12/20 16:29 Discharged to Home. Impression: Acute bronchitis. - Condition is Stable. - Discharge Instructions: Acute Bronchitis, Adult. - Prescriptions for Prednisone 20 mg Oral Tablet - take 3 tablet by ORAL route once daily for 5 days; 15 tablet. Albuterol Sulfate 90 mcg/actuation - inhale 1-2 puff by INHALATION route every 4-6 hours; 1 Inhaler. - Medication Reconciliation Form, Thank You Letter, Antibiotic Education, Prescription Opioid Use form. - Follow up: Private Physician; When: 2 - 3 days; Reason: Recheck today's complaints, Continuance of care, Re-evaluation by your physician. Signatures: Dispatcher [employer] EDWI Timmy Nelson PA PA jmm Davies, Jonathon RN RN Mary Reynolds MD MD ma2 Savana Campbell RN RN zb Corrections: (The following items were deleted from the chart) 14:44 13:30 CORONAVIRUS ordered. EDWI EDMS 14:45 13:30 Influenza Screen (A ordered. [facility] EDMS 16:58 16:29 08/12/2020 16:29 Discharged to Home. Impression: Acute bronchitis. Condition is zb Stable. Forms are Medication Reconciliation Form, Thank You Letter, Antibiotic Education, Prescription Opioid Use. Follow up: Private Physician; When: 2 - 3 days; Reason: Recheck today's complaints, Continuance of care, Re-evaluation by your physician. nilson
[2020-08-12 17:27] VITALS: TEMP 98.1
[2020-08-12 17:36] VITALS: BP 138/79; O2SAT 98
== END 2020-08-12 16:58 | disposition home or self-care (01) ==
LOC: ER 11:25
DX: J20.9 Acute bronchitis, unspecified (principal); F41.8 Other specified anxiety disorders; F17.210 Nicotine dependence, cigarettes, uncomplicated; Z20.822 Contact with and (suspected) exposure to COVID-19
CPT/HCPCS: 0240U; 71045; 96372; 99284; J1100

== ENCOUNTER 2020-08-14 08:40 | Emergency (ER) | payer SELFPAY ==
--- OUTSIDE RECORDS SUMMARY | 2020-08-14 08:43 | XMS REPORT | Continuity of Care Document ---
:1985 Author Organization [facility] t Address [address] [place] [address] Dr. Jerome. [address] [place] [address] Care Team Providers Name Role Phone Maame [...] Stop Date Source Natural father Heart attack [facility] Paternal grandfather Heart attack I [facility] Social History Social Habit Start Date Stop Date Quantity Comments Source Alcohol Comment socially [facility] Sex Assigned At [facility] History of tobacco Cigarette Smoker [facility] use [facility] Cigarettes smoked 2017-03-16 2017-03-16 [facility] - current (pack per 00:00:00 00:00:00 [facility] day) - Reported Tobacco use and 2017-03-16 2017-03-16 Never used [facility] - exposure 00:00:00 00:00:00 [facility] Alcohol intake 2017-03-16 2017-03-16 Current drinker [facility] S t kes - 00:00:00 00:00:00 of [facility] (finding) Smoking Status Start Date Stop Date Source Current every day smoker 2017-03-16 00:00:00 [facility] Medications This patient has no known medications. Procedures This patient has no known procedures. Encounters Start End Encounter Admission Attending Care Care Encounter Source Date/Time Date/Time Type Type Clinicians Facility Department ID 2019-12-28 Inpatient 3 Ted Hassan [facility] PS[facility] [id number] 22:04:00 Ted Hassan - [facility] 2020-07-28 2020-07-28 Emergency [facility] [id number] 13:17:00 20:00:00 Lalito [place] [id number] [place] 4.2.7.2.686 [place] [id number] 2020-06-30 2020-06-30 Emergency Sergey, [facility] [id number] 05:26:00 10:11:00 Ciera Huang [id number] [place] 4.2.7.2.686 [place] [id number] 2020-06-23 2020-06-23 Emergency Shelley Shahid [facility] [id number] 13:46:00 15:46:00 Margarita Huang [id number] [place] 4.2.7.2.686 [place] [id number] 2020-01-28 2020-02-01 [facility] [id number] [place] [address] 00:00:00 00:00:00 ROSI Jo Method i 2019-12-28 2020-01-02 Inpatient 3 Ted Hassan [facility] PSY [id number] . 22:04:00 17:20:00 Ted Hassan [facility] 2019-11-09 2019-11-10 [facility] [id number] 23:06:12 01:26:00 Clovis Huang 350.1.13.10 [place] 4.2.7.2.686 [place] [id number] 2019-09-29 2019-09-29 Emergency Porras, [facility] [id number] 09:39:50 11:47:00 Johan Huang 350.1.13.10 [place] 4.2.7.2.686 [place] [id number] 2019-06-16 2019-06-16 Emergency Mary Bethrinadrey, [facility] [id number] 07:08:27 08:57:00 Nadine Huang 350.1.13.10 [place] 4.2.7.2.686 [place] [id number] 2019-06-15 2019-06-15 Emergency Shelley Shahid [facility] [id number] 11:30:00 13:30:00 Margarita Huang 350.1.13.10 [place] 4.2.7.2.686 [place] [id number] 2019-06-15 2019-06-15 Orders Doctor MCGINNIS [id number] 00:00:00 00:00:00 Only Unassigned, KAY 350.1.13.10 [facility] 4.2.7.2.686 [id number] [id number] 2019-06-06 2019-06-06 Letter Clinic, [facility] [id number] 00:00:00 00:00:00 (Out) Neurology [facility] [id number] [facility] 4.2.7.2.[id number] [facility] [id number] 10:16:26 10:55:54 Care [facility] [id number] Surgical 4.2.7.2.686 [facility] [id number] teddy Huang 2019 2019 Orders Doctor MCGINNIS [id number] 00:00:00 00:00:00 Only Unassigned, KAY 350.1.13.10 [facility] .2.7.2.686 [id number] [id number] 2019-01-24 2019-01-24 Emergency [facility] [id number] 15:49:15 22:27:00 Anitra Huang 350.1.13.10 [place] 4.2.7.2.686 [place] [id number] 2019-01-24 2019-01-24 Orders Doctor MCGINNIS [id number] 00:00:00 00:00:00 Only Unassigned, KAY 350.1.13.10 [facility] .2.7.2.686 [id number] [id number] 2018-12-21 2018-12-21 Emergency [facility] [id number] 17:07:20 19:42:00 Dejahbetina Huang 350.1.13.10 [place] 4.2.7.2.686 [place] [id number] 2018-12-21 2018-12-21 Orders Doctor RAS [id number] 00:00:00 00:00:00 Only Unassigned, KAY 350.1.13.10 [place] [facility] 4.2.7.2.686 [id number] Results Test Description Test Time Test [...] = Expiration Dt) 02-07-2021 N Thyroid Stimulating [id number] 07:26:04 Test Item Value Reference Range Interpretation Comments TSH (test code = TSH) 1.757 mcIU/mL 0.550-4.780 Lipid [id number] 07:26:04 Test Item Value Reference Range Interpretation [...] is LDL/HDL Ratio=L DL Calc/HDL Chol Hemoglobin [id number] 07:26:03 Test Item Value Reference Range Interpretation Comments Hemoglobin A1c (test code 4.9 % 4.0-5.8 Di abetic >=6.5 = Hemoglobin A1c) %Prediabet es 5.7-6.4 %Normal <5.7 % MYOCARD IMAGING, MULTI, [id number] 14:45:00FINAL REPORT PROCEDURE: Rest/Stress MYOCARDIAL PERFUSION SPECT with treadm ill\XA9\ CPT CODE: 75637 INDICATION: Chest pain HISTORY: Cardiac risk factors: [...] 5. Normal extracardiactracer distribution. 6. No previous [facility] study for comparison. NONINVASIVE RISK STRATIFICATION: The above findings are considered low risk (<1% annual mortality rate) based on the following criterion:- Normal or small myocardial perfusion defect at rest or with stress(JACC. 2012;59(9):857-81.) Signed: Albert Ruvalcabaort Verified Date/Time: 03/17/2017 14:45:11 Reading Location: [address] Reading Room HEMOGLOBIN [id number] 08:29:00 Test Item Value Reference Range Interpretation Comments HEMOGLOBIN A1C (BEAKER) (test code = 5.5 % 4.3-6.1 368) CREATINE KINASE (CK), TOTAL AND [id number] 02:45:00 Test Item Value Reference Range Interpretation Comments CREATINE KINASE TOTAL (BEAKER) 34 U/L 29-200 (test code = 380) CREATINE KINASE-MB (BEAKER) (test 0.4 ng/mL 0.0-6.6 code = 750) CREATINE KINASE-MB INDEX (BEAKER) 1.2 % (test code = 395) CK-MB Reference Range:<6.7 Normal6.7-10.0 Borderline>10.0 AbnormalTROPONIN [id number] 02:45:00 Test Item Value Reference Range Interpretation [...] and persistent tachyarrhythmia.RAD, CHEST, 1 VIEW, NON [id number] 20:40:00Reason for exam:->chest painShould this be performed at the bedside?->YesFINAL REPORT EXAMINATION: AP PORTABLE CHEST RADIOGRAPH CLINICAL INDICATION:Chest pain IMPRESSION: Compared with 04/30/2016. No evidence of focal lung consolidation, pulmonary edema or pleural effusion. The heart size is normal. Mediastinal contours are sharp. No evidence of an acute osseous abnormality or pneumothorax. Signed: Santhosh Castle MDReport Verified Date/Time: 03/16/2017 20:40:21 Reading Location: [address] Reading Room B-TYPE NATRIURETIC FACTOR (BNP)2017-03-16 20:30:00 Test Item Value Reference Range Interpretation Comments B-TYPE NATRIURETIC PEPTIDE (BEAKER) < pg/mL 0-100 (test code = 700) COMPREHENSIVE METABOLIC [id number] 20:30:00 Test Item Value Reference Range Interpretation [...] ATED GFR. CREATINE KINASE (CK), TOTAL AND [id number] 20:28:00 Test Item Value Reference Range Interpretation Comments CREATINE KINASE TOTAL (BEAKER) 50 U/L 29-200 (test code = 380) CREATINE KINASE-MB (BEAKER) (test 0.5 ng/mL 0.0-6.6 code = 750) CREATINE KINASE-MB INDEX (BEAKER) 1.0 % (test code = 395) CK-MB Reference Range:<6.7 Normal6.7-10.0 Borderline>10.0 AbnormalTROPONIN [id number] 20:28:00 Test Item Value Reference Range Interpretation [...] failure, acidosis, acute neurological disease, and persistent tachyarrhythmia.[id number] 20:21:00 Test Item Value Reference Range Interpretation Comments MAGNESIUM (BEAKER) 2.2 mg/dL 1.6-2.6 Specimen slightly (test code = 627) hemolyzed [id number] 20:21:00 Test Item Value Reference Range Interpretation Comments PHOSPHORUS (BEAKER) 3.9 mg/dL 2.3-4.7 Specimen slightly (test code = 604) hemolyzed LIPID [id number] 20:21:00 Test Item Value Reference Range Interpretation [...] Borderline 130-159 High 160-189 Very High >=190PROTHROMBIN TIME/[id number] 20:07:00 Test Item Value Reference Range Interpretation Comments PROTIME (BEAKER) (test code = 13.0 seconds 11.7-14.7 759) INR (BEAKER) (test code = 370) 1.0 <=5.9 RECOMMENDED COUMADIN/WARFARIN INR THERAPY RANGESSTANDARD DOSE: 2.0 - 3.0 Includes: PROPHYLAXIS forvenous thrombosis, systemic embolization; TREATMENT for venous thrombosis and/or pulmonary embolus.HIGH RISK: Target INR is 2.5-3.5 for patients with mechanical heart valves.[id number] 20:07:00 Test Item Value Reference Range Interpretation Comments PARTIAL THROMBOPLASTIN TIME 26.9 seconds 22.5-36.0 (BEAKER) (test code = 760) CBC W/PLT COUNT & AUTO [id number] 19:57:00 Test Item Value Reference Range Interpretation [...] % 0-1 PERCENT (BEAKER) (test code = 0521)
[2020-08-14] MEDS ORDERED: METOPROLOL TAR 50 MG TAB ONE (09:35)
[2020-08-14] MEDS ORDERED: clonazePAM 1 MG TAB ONE (09:35)
--- NOTE | 2020-08-14 11:46 | EDPHYS ---
Physician Documentation [facility] Name: Srini Simpson Age: 35 yrs Sex: Male : 1985 Arrival Date: 08/14/2020 Time: 08:43 Bed 14 Private MD: Jovanni Luke H ED Physician Yusuf Kirk HPI: 08/14 09:15 This 35 yrs old Male presents to ER via Ambulatory with complaints of High kb Blood Sugar, Palpitations. 09:15 The patient has elevated blood pressure and discovered this at home. Onset: The kb symptoms/episode began/occurred this morning. Modifying factors: The symptoms are aggravated by discontinuation of meds. Associated signs and symptoms: Pertinent positives: palpitations and anxiety. The patient has not experienced similar symptoms in the past. The patient has not recently seen a physician. Pt reports he normally takes metoprolol 50mg BID and clonazepam 1mg BID, but has been out since Thursday. Called Dr Luke but unable to get in until 08/27/20. Reports he feels like his blood pressure is high and like he's having a panic attack. . Historical: - Allergies: 09:14 No Known Allergies; hb - Home Meds: 09:14 Klonopin 1 mg Oral tab 1 tab 2 times per day [Active]; metoprolol tartrate 50 mg Oral hb tab 1 tab 2 times per day [Active]; - PMHx: 09:14 Anxiety; Depression; ETOH/drug abuse; Hypertension; Pyloric Stenosis; hb ROS: 09:29 Constitutional: Negative for fever, chills, and weight loss, Respiratory: Negative for kb shortness of breath, cough, wheezing, and pleuritic chest pain, Abdomen/GI: Negative for abdominal pain, nausea, vomiting, diarrhea, and constipation, MS/Extremity: Negative for injury and deformity, Skin: Negative for injury, rash, and discoloration, Neuro: Negative for headache, weakness, numbness, tingling, and seizure. 09:29 Cardiovascular: Positive for palpitations, Negative for chest pain, edema, orthopnea, paroxysmal nocturnal dyspnea. 09:29 Psych: Positive for anxiety. Exam: 09:29 Head/Face: Normocephalic, atraumatic. Cardiovascular: Regular rate and rhythm with a kb normal S1 and S2. No gallops, murmurs, or rubs. No pulse deficits. Respiratory: Respirations even and unlabored. No increased work of breathing, no retractions or nasal flaring. Skin: Warm, dry with normal turgor. Normal color. MS/ Extremity: Pulses equal, no cyanosis. Neurovascular intact. Full, normal range of motion. Neuro: Awake and alert, GCS 15, oriented to person, place, time, and situation. Moves all extremities. Normal gait. 09:29 Constitutional: The patient appears alert, awake, anxious. Vital Signs: 09:12 BP 165 / 101; Pulse 71; Resp 16; Temp 97.7; Pulse Ox 100% on R/A; Pain 0/10; hb MDM: 09:15 Patient medically screened. kb 09:29 Data reviewed: vital signs, nurses notes. Data interpreted: Pulse oximetry: on room air kb is 100 %. Interpretation: normal. Administered Medications: 09:20 Drug: clonazePAM 1 mg Route: PO; hb 09:20 Drug: Metoprolol TARTRATE (Lopressor) 50 mg Route: PO; hb Disposition: 15:09 Co-signature as Attending Physician, Yusuf Kirk MD. rn Disposition: 08/14/20 11:46 Patient left the facility after being seen by provider. - Patient left due to wait time. Signatures: Delisa Alonzo, GEOTHERMAL OPERATIONS ENGINEER-C GEOTHERMAL OPERATIONS ENGINEER-CkGriselda Poe, RN RN Yusuf Martines MD MD rn Baxter, Heather, RN RN Corrections: (The following items were deleted from the chart) 11:50 11:46 08/14/2020 11:46 Patient left the facility post triage evaluation and consult. kb Reason stated they are leaving due to wait time. 11:50 11:50 08/14/2020 11:46 Patient left the facility after being seen by provider. Reason kb stated they are leaving due to wait time. kb
--- NOTE | 2020-08-14 11:46 | ER ---
Nurse's Notes [facility] Name: Srini Simpson Age: 35 yrs Sex: Male : 1985 Arrival Date: 08/14/2020 Time: 08:43 Bed 14 Private MD: Jovanni Luke H Diagnosis: Presentation: 08/14 09:12 Chief complaint: "I feel anxious and like my blood pressure is up." Pt has been out of hb metoprolol for 5 day. Coronavirus screen: At this time, the client does not indicate any symptoms associated with coronavirus-19. Ebola Screen: No symptoms or risks identified at this time. Initial Sepsis Screen: Does the patient meet any 2 criteria? No. Patient's initial sepsis screen is negative. Does the patient have a suspected source of infection? No. Patient's initial sepsis screen is negative. Risk Assessment: Do you want to hurt yourself or someone else? Patient reports no desire to harm self or others. Onset of symptoms was August 14, 2020. 09:12 Method Of Arrival: Ambulatory hb 09:12 Acuity: CHRISTINE 3 hb Historical: - Allergies: 09:14 No Known Allergies; hb - Home Meds: 09:14 Klonopin 1 mg Oral tab 1 tab 2 times per day [Active]; metoprolol tartrate 50 mg Oral hb tab 1 tab 2 times per day [Active]; - PMHx: 09:14 Anxiety; Depression; ETOH/drug abuse; Hypertension; Pyloric Stenosis; hb Vital Signs: 09:12 BP 165 / 101; Pulse 71; Resp 16; Temp 97.7; Pulse Ox 100% on R/A; Pain 0/10; hb ED Course: 08:43 Patient arrived in ED. mr 08:43 Jovanni Luke DO is Private Physician. mr 09:13 Triage completed. hb 09:14 Delisa Alonzo FNP-C is PHCP. kb 09:14 Yusuf Kirk MD is Attending Physician. kb 11:49 Delisa Alonzo FNP-C is PHCP. kb 11:49 Yusuf Kirk MD is Attending Physician. kb Administered Medications: 09:20 Drug: clonazePAM 1 mg Route: PO; hb 09:20 Drug: Metoprolol TARTRATE (Lopressor) 50 mg Route: PO; hb Outcome: 11:46 Patient left the ED. sv 11:50 Patient left the ED. kb Signatures: Delisa Alonzo, DAVID DAVENPORT-Griselda Garcia, RN RN Gloria Ryan mr Iwona Granados RN RN hb
[2020-08-14 11:50] VITALS: BP 165/101; TEMP 97.7; O2SAT 100
== END 2020-08-14 11:50 | disposition left against medical advice (07) ==
LOC: ER 08:40
DX: F41.9 Anxiety disorder, unspecified (principal); I10 Essential (primary) hypertension
CPT/HCPCS: 99282

== ENCOUNTER 2020-09-02 01:56 | Emergency (ER) | payer SELFPAY ==
--- OUTSIDE RECORDS SUMMARY | 2020-09-02 01:59 | XMS REPORT | Continuity of Care Document ---
:1985 Author Organization [facility] t Address [address] [place] [address] Dr. [address]. [address] [place] [address] Care Team Providers Name Role Phone Marly BELTRÁN, [facility] Primary Care Physician Unavailable Ernie Hassan Attending Clinician Unavailable Ernie Hassan Attending Clinician Unavailable Shabbir BELTRÁN Attending Clinician Deion Rincon DO Attending Clinician Margarita Marroquin Attending Clinician Ashlie BELTRÁN, M. Attending Clinician Hank Thomas MD Attending Clinician Singer LAW Attending Clinician Fatimah BELTRÁN, S Attending Clinician Doctor Unassigned, Name Attending Clinician Unavailable Clinic, Neurology Continuity Attending Clinician UnavailLindsey RHODESP Attending Clinician Kem Herrera Attending Clinician Jeremiah RHODESP Attending Clinician Joseph GARCIA Attending Clinician Unavailable Ernie Hassan Admitting Clinician Unavailable ASHLIE Admitting Clinician Unavailable Joseph GARCIA Admitting Clinician Unavailable Problems Condition Condition Condition Status Onset Resolution Last Treating Co mments Source Name Details Category Date Date Treatment Clinician Date Alcohol Alcohol Disease Active [place] dependence dependence - Me thodi with with 00:00: st uncomplica uncomplica 00 luis luis withdrawal withdrawal Suicide Suicide Disease Active [place] attempt by attempt by 01-28 Me th[facility] alcohol alcohol 00:00: st poisoning poisoning 00 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 Family History Family Member Diagnosis Comments Start Date Stop Date Source Maternal aunt Depression [place] [facility] Maternal uncle Alcohol abuse [place] [facility] Maternal uncle Depression [facility] Maternal uncle Suicide Attempts [place] [facility] Natural mother Alcohol abuse [place] [facility] Social History Social Habit Start Date Stop Date Quantity Comments Source History of tobacco 1995-01-27 Cigarette Smoker [place] use 00:00:00 Hinduism Cigarettes smoked 2020-01-28 2020-01-28 [place] current (pack per 00:00:00 00:00:00 [facility] ) - Reported Cigarette 2020-01-28 2020-01-28 [place] pack-years 00:00:00 00:00:00 Hinduism Tobacco use and 2020-01-28 2020-01-28 Never used [place] exposure 00:00:00 00:00:00 Hinduism Alcohol intake 2020-01-28 2020-01-28 Current drinker [place] 00:00:00 00:00:00 of alcohol Hinduism (finding) Sex [birth year] [place] 00:00:00 00:00:00 Hinduism Smoking Status Start Date Stop Date Source Current every day smoker 2020-01-28 00:00:00 Ori benavidez Hinduism Medications Ordered Filled Start Stop Current Ordering [...] nicotine smoking 2mg Q2H Chew 1 Ori ston polacrilex 01-31 cessation each (2 mg [facility] (NICORETTE) 00:00: 23:59 total) st 2 mg gum 00 :00 every 2 (two) hours as needed for smoking cessation for up to 30 days .stop smoking. metoprolol hypertensio 50mg Q.5D Take 1 [place] tartrate 01-31 n tablet (50 Meth herminio (LOPRESSOR) 00:00: 23:59 mg total) st 50 mg 00 :00 by mouth tablet BID at 0700, 1900 for 30 days .high blood pressure. busPIRone generalized 7.5mg Q.5D Take 1 [place] (BUSPAR) 01-31 anxiety tablet Metho di 7.5 MG 00:00: 23:59 disorder (7.[address] tablet 00 :00 total) by mouth 2 (two) times a day for 7 days .repeated episodes of anxiety. Immunizations Ordered Immunization Filled Immunization Date Status Commen ts Source Name Name MORALES ESTEBAN PF 2020-01-28 Completed [place] 00:00:00 Hinduism Vital Signs Vital Name Observation Time Observation Value Comments Source Body weight 2020-02-01 07:04:00 85.548 kg [place] [facility] BMI 2020-02-01 07:04:00 29.54 kg/m2 [place] [facility] Systolic blood 2020-02-01 06:09:39 138 mm[Hg] [place] n Hinduism pressure Diastolic blood 2020-02-01 06:09:39 78 mm[Hg] [place] on Hinduism pressure Heart rate 2020-02-01 06:09:39 62 /min Anthony Almeida Body temperature 2020-02-01 06:09:39 36.5 Siobhan [place] [facility] Respiratory rate 2020-02-01 06:09:39 18 /min [place] [facility] Oxygen saturation in 2020-02-01 06:09:39 98 /min Anthony Almeida Arterial blood by Pulse oximetry Body height 2020-01-28 14:00:00 170.2 cm Anthony Almeida Procedures Procedure Date / Time Performed Performing Clinician Sourhank e HEMOGLOBIN A1C 2020-01-29 06:10:00 LatanyaLelo sheehan [facility] LIPID PANEL 2020-01-29 06:10:00 LatanyaLelo sheehan [facility] HEPATITIS ACUTE PANEL 2020-01-29 06:10:00 Latanya Lelo Bell [place] [facility] GGT 2020-01-29 06:10:00 LatanyaLelo de la paz [facility] MAGNESIUM LEVEL 2020-01-29 06:10:00 Latanya Lelo Cruz [facility] HIV AG/AB COMBINATION 2020-01-29 06:10:00 Latanya Lelovioleta watson [facility] Encounters Start End Encounter Admission Attending Care Care Encounter Source Date/Time Date/Time Type Type Clinicians Facility Department ID 2019-12-28 Inpatient 3 Ted Hassan [facility] [id number] 22:04:00 Ted Hassan - 819 [facility] 2020-07-28 2020-07-28 Emergency Shea, [facility] [id number] 13:17:00 20:00:00 Lalito Huang [id number] [place] [id number] [place] [id number] 2020-06-30 2020-06-30 Emergency Sergey, [facility] [id number] 05:26:00 10:11:00 Ciera Huang [id number] [place] [id number] [place] [id number] 2020-06-23 2020-06-23 Emergency Shelley Shahid [facility] [id number] 13:46:00 15:46:00 Margarita Huang [id number] [place] [id number] [place] [id number] 2020-01-28 2020-02-01 Inpatient [facility] [id number] [place] 00:00:00 00:00:00 ROSI [address] 2019-12-28 2020-01-02 Inpatient 3 Ted Hassan [facility] [id number] St. 22:04:00 17:20:00 Ted Hassan [facility] 2019-11-09 2019-11-10 Emergency Martha, [facility] [id number] 23:06:12 01:26:00 Clovis Huang [id number] [place] 4.2.7.2.686 [place] [id number] 2019-09-29 2019-09-29 Emergency , [facility] [id number] 09:39:50 11:47:00 Johan Sal [id number] [place] 4.2.7.2.686 [place] [id number] 2019-06-16 2019-06-16 Emergency Fatimah, [facility] [id number] 07:08:27 08:57:00 Nadine Huang [id number] [place] 4.2.7.2.686 [place] [id number] [id number] 2019-06-15 2019-06-15 Emergency Shelley Shahid [facility] [id number] 11:30:00 13:30:00 Margarita Sal [id number] [place] 4.2.7.2.686 [place] [id number] 2019-06-15 2019-06-15 Orders Doctor RAS [id number] 00:00:00 00:00:00 Only Unassigned, KAY [id number] [place] [facility] 4.2.7.2.686 [id number] 2019-06-06 2019-06-06 Letter Clinic, [facility] [id number] 00:00:00 00:00:00 (Out) Neurology [facility] [id number] [facility] 4.2.7.2.686 [id number] 2019 2019 Urgent Violet, [facility] [id number] 10:16:26 10:55:54 Care [facility] [id number] Surgical 42.7.2.686 [facility] [id number] teddy Huang 2019 2019 Orders Doctor RAS [id number] 00:00:00 00:00:00 Only Unassigned, KAY 350.1.13.10 [place] [address]686 [id number] 2019-01-24 2019-01-24 Emergency [facility] [id number] 15:49:15 22:27:00 Anitra [place] 350.1.13.[address]2.686 [place] [id number] [id number] 2019-01-24 2019-01-24 Orders Doctor RAS [id number] 00:00:00 00:00:00 Only Unassigned, KAY 350.1.13.10 [place]2.7.2.686 [id number] 2018-12-21 2018-12-21 Emergency [facility] [id number] 17:07:20 19:42:00 Dejah Huang 350.1.13.[address]686 [place] [id number] 2018-12-21 2018-12-21 Orders Doctor MCGINNIS [id number] 00:00:00 00:00:00 Only Unassigned, KAY 350.1.13.[address]2.686 [id number] Results Test Description Test Time Test [...] = Expiration Dt) 02-07-2021 N Thyroid Stimulating [id number] 07:26:04 Test Item Value Reference Range Interpretation Comments TSH (test code = TSH) 1.757 mcIU/mL 0.550-4.780 Lipid [id number] 07:26:04 Test Item Value Reference Range Interpretation [...] is LDL/HDL Ratio=L DL Calc/HDL Chol Hemoglobin [id number] 07:26:03 Test Item Value Reference Range Interpretation Comments Hemoglobin A1c (test code 4.9 % 4.0-5.8 Di abetic >=6.5 = Hemoglobin A1c) %Prediabet es 5.7-6.4 %Normal <5.7 % MYOCARD IMAGING, MULTI, [id number] 14:45:00FINAL REPORT PROCEDURE: Rest/Stress MYOCARDIAL PERFUSION SPECT with treadm ill\XA9\ CPT CODE: 45377 INDICATION: Chest pain HISTORY: Cardiac risk factors: [...] 5. Normal extracardiactracer distribution. 6. No previous [facility] study for comparison. NONINVASIVE RISK STRATIFICATION: The above findings are considered low risk (<1% annual mortality rate) based on the following criterion:- Normal or small myocardial perfusion defect at rest or with stress(JACC. 2012;59(9):857-81.) Signed: Albert Ruvalcaba MDReport Verified Date/Time: 03/17/2017 14:45:11 Reading Location: [address] Reading Room HEMOGLOBIN [id number] 08:29:00 Test Item Value Reference Range Interpretation Comments HEMOGLOBIN A1C (BEAKER) (test code = 5.5 % 4.3-6.1 368) CREATINE KINASE (CK), TOTAL AND [id number] 02:45:00 Test Item Value Reference Range Interpretation Comments CREATINE KINASE TOTAL (BEAKER) 34 U/L 29-200 (test code = 380) CREATINE KINASE-MB (BEAKER) (test 0.4 ng/mL 0.0-6.6 code = 750) CREATINE KINASE-MB INDEX (BEAKER) 1.2 % (test code = 395) CK-MB Reference Range:<6.7 Normal6.7-10.0 Borderline>10.0 AbnormalTROPONIN [id number] 02:45:00 Test Item Value Reference Range Interpretation [...] and persistent tachyarrhythmia.RAD, CHEST, 1 VIEW, NON [id number] 20:40:00Reason for exam:->chest painShould this be performed at the bedside?->YesFINAL REPORT EXAMINATION: AP PORTABLE CHEST RADIOGRAPH CLINICAL INDICATION:Chest pain IMPRESSION: Compared with 04/30/2016. No evidence of focal lung consolidation, pulmonary edema or pleural effusion. The heart size is normal. Mediastinal contours are sharp. No evidence of an acute osseous abnormality or pneumothorax. Signed: Santhosh Castleepmariza Verified Date/Time: 03/16/2017 20:40:21 Reading Location: [address] Reading Room B-TYPE NATRIURETIC FACTOR (BNP)2017-03-16 20:30:00 Test Item Value Reference Range Interpretation Comments B-TYPE NATRIURETIC PEPTIDE (BEAKER) < pg/mL 0-100 (test code = 700) COMPREHENSIVE METABOLIC [id number] 20:30:00 Test Item Value Reference Range Interpretation [...] ATED GFR. CREATINE KINASE (CK), TOTAL AND [id number] 20:28:00 Test Item Value Reference Range Interpretation Comments CREATINE KINASE TOTAL (BEAKER) 50 U/L 29-200 (test code = 380) CREATINE KINASE-MB (BEAKER) (test 0.5 ng/mL 0.0-6.6 code = 750) CREATINE KINASE-MB INDEX (BEAKER) 1.0 % (test code = 395) CK-MB Reference Range:<6.7 Normal6.7-10.0 Borderline>10.0 AbnormalTROPONIN [id number] 20:28:00 Test Item Value Reference Range Interpretation [...] failure, acidosis, acute neurological disease, and persistent tachyarrhythmia.[id number] 20:21:00 Test Item Value Reference Range Interpretation Comments MAGNESIUM (BEAKER) 2.2 mg/dL 1.6-2.6 Specimen slightly (test code = 627) hemolyzed [id number] 20:21:00 Test Item Value Reference Range Interpretation Comments PHOSPHORUS (BEAKER) 3.9 mg/dL 2.3-4.7 Specimen slightly (test code = 604) hemolyzed LIPID [id number] 20:21:00 Test Item Value Reference Range Interpretation [...] Borderline 130-159 High 160-189 Very High >=190PROTHROMBIN TIME/[id number] 20:07:00 Test Item Value Reference Range Interpretation Comments PROTIME (BEAKER) (test code = 13.0 seconds 11.7-14.7 759) INR (BEAKER) (test code = 370) 1.0 <=5.9 RECOMMENDED COUMADIN/WARFARIN INR THERAPY RANGESSTANDARD DOSE: 2.0 - 3.0 Includes: PROPHYLAXIS forvenous thrombosis, systemic embolization; TREATMENT for venous thrombosis and/or pulmonary embolus.HIGH RISK: Target INR is 2.5-3.5 for patients with mechanical heart valves.[id number] 20:07:00 Test Item Value Reference Range Interpretation Comments PARTIAL THROMBOPLASTIN TIME 26.9 seconds 22.5-36.0 (BEAKER) (test code = 760) CBC W/PLT COUNT & AUTO [id number] 19:57:00 Test Item Value Reference Range Interpretation [...] % 0-1 PERCENT (BEAKER) (test code = 2801)
[2020-09-02 06:15] LABS: Protime INR 0.98
[2020-09-02 06:18] LABS: Absolute Lymphocytes (CBC) 2.5 K/uL (0.7-4.9); Basophils % 1.7 % (0-1.3); Hematocrit 44.2 % (39.6-49.0); MPV 7.8 fL (7.6-11.3); RBC Red Blood Cell Count 4.92 M/uL (4.33-5.43)
[2020-09-02 06:20] LABS: Urine Blood Negative (Negative); Urine Glucose Negative (Negative); Urine Protein Negative (Negative); Urine Specific Gravity >=1.030 (1.005-1.030); Urine pH 5.5 (5.0-7.0)
[2020-09-02] MEDS ORDERED: LORazepam 2 MG/ML VIAL ONE (06:23)
[2020-09-02] MEDS ORDERED: NA CHLORIDE 0.9% 1,000 ML ONE (06:23)
[2020-09-02 06:33] LABS: ALT/SGPT 33 U/L (12-78); AST/SGOT 23 U/L (15-37); Albumin 3.7 g/dL (3.4-5.0); Alkaline Phosphatase 71 U/L (45-117); BUN Blood Urea Nitrogen 8 mg/dL (7-18); Bicarbonate 24 mmol/L (21-32); Bilirubin Direct < 0.1 mg/dL (0-0.2); Bilirubin Total 0.2 mg/dL (0.2-1.0); Glucose Level 104 mg/dL (74-106); Magnesium 1.9 mg/dL (1.8-2.4); NT PRO-BNP 23 pg/mL (<125); Potassium 3.9 mmol/L (3.5-5.1); Protein, Total 7.4 g/dL (6.4-8.2); Sodium Level 143 mmol/L (136-145); Troponin (Emerg Dept Use Only) < 0.02 ng/mL (0.0-0.045)
[2020-09-02 06:51] LABS: Barbiturates NEGATIVE (NEGATIVE); Benzodiazepines NEGATIVE (NEGATIVE); Cocaine NEGATIVE (NEGATIVE); METHAMPHETAM NEGATIVE (NEGATIVE); Methadone NEGATIVE (NEGATIVE); Opiates NEGATIVE (NEGATIVE); Phencyclidine NEGATIVE (NEGATIVE); THC Cannibis NEGATIVE (NEGATIVE)
--- NOTE | 2020-09-02 06:56 | EDPHYS ---
Physician Documentation [facility] Name: Srini Simpson Age: 35 yrs Sex: Male : 1985 Arrival Date: 09/02/2020 Time: 02:41 Bed 27 Private MD: ED Physician Roque Husain HPI: 09/02 05:56 This 35 yrs old Male presents to ER via Ambulatory with complaints of Anxiety.mh7 05:56 The patient presents with a history of heart skipping beats. Context: The symptoms mh7 occur during sleep. Onset: The symptoms/episode began/occurred today. Duration: The patient or guardian reports multiple episodes, that are intermittent, that wax and wane. Modifying factors: The symptoms are aggravated by nothing. The symptoms are alleviated by nothing. 05:58 Associated signs and symptoms: Pertinent positives: anxiety, Pertinent negatives: chest mh7 pain, cough, fever, lightheadedness, nausea, SOB, syncope, near-syncope, unusual stressors, vertigo, vomiting. Severity of symptoms: At their worst the symptoms were moderate today, in the emergency department the symptoms have improved moderately. Historical: - Allergies: 02:44 No Known Allergies; mg2 - Home Meds: 02:44 metoprolol tartrate 50 mg Oral tab 1 tab 2 times per day [Active]; mg2 - PMHx: 02:44 Anxiety; Depression; ETOH/drug abuse; Hypertension; Pyloric Stenosis; mg2 - Immunization history:: Flu vaccine status is unknown. - Social history:: Smoking status: Patient reports the use of cigarette tobacco products, smokes one-half pack cigarettes per day, Patient uses alcohol, occasionally. Patient/guardian denies using street drugs, IV drugs. ROS: 05:59 Constitutional: Negative for fever, chills, and weight loss, Eyes: Negative for injury, mh7 pain, redness, and discharge, ENT: Negative for injury, pain, and discharge, Neck: Negative for injury, pain, and swelling, Respiratory: Negative for shortness of breath, cough, wheezing, and pleuritic chest pain, Abdomen/GI: Negative for abdominal pain, nausea, vomiting, diarrhea, and constipation, Back: Negative for injury and pain, : Negative for injury, bleeding, discharge, and swelling, MS/Extremity: Negative for injury and deformity, Skin: Negative for injury, rash, and discoloration, Neuro: Negative for headache, weakness, numbness, tingling, and seizure. 05:59 Allergy/Immunology: Negative for hives, rash, and allergies, Endocrine: Negative for neck swelling, polydipsia, polyuria, polyphagia, and marked weight changes, Hematologic/Lymphatic: Negative for swollen nodes, abnormal bleeding, and unusual bruising. 05:59 Psych: Negative for depression, drug dependence, alcohol dependence, auditory hallucinations, visual hallucinations, homicidal ideation, insomnia, suicide gesture, suicidal ideation. Exam: 05:59 Head/Face: Normocephalic, atraumatic. Eyes: Pupils equal round and reactive to light, mh7 extra-ocular motions intact. Lids and lashes normal. Conjunctiva and sclera are non-icteric and not injected. Cornea within normal limits. Periorbital areas with no swelling, redness, or edema. Neck: Trachea midline, no thyromegaly or masses palpated, and no cervical lymphadenopathy. Supple, full range of motion without nuchal rigidity, or vertebral point tenderness. No Meningismus. Chest/axilla: Normal chest wall appearance and motion. Nontender with no deformity. No lesions are appreciated. Cardiovascular: Regular rate and rhythm with a normal S1 and S2. No gallops, murmurs, or rubs. Normal PMI, no JVD. No pulse deficits. Respiratory: Lungs have equal breath sounds bilaterally, clear to auscultation and percussion. No rales, rhonchi or wheezes noted. No increased work of breathing, no retractions or nasal flaring. Abdomen/GI: Soft, non-tender, with normal bowel sounds. No distension or tympany. No guarding or rebound. No evidence of tenderness throughout. Back: No spinal tenderness. No costovertebral tenderness. Full range of motion. Skin: Warm, dry with normal turgor. Normal color with no rashes, no lesions, and no evidence of cellulitis. MS/ Extremity: Pulses equal, no cyanosis. Neurovascular intact. Full, normal range of motion. Neuro: Awake and alert, GCS 15, oriented to person, place, time, and situation. Cranial nerves II-XII grossly intact. Motor strength 5/5 in all extremities. Sensory grossly intact. Cerebellar exam normal. Normal gait. Psych: Awake, alert, with orientation to person, place and time. Behavior, mood, and affect are within normal limits. 05:59 Constitutional: The patient appears in no acute distress, alert, awake, anxious. Vital Signs: 02:41 BP 127 / 84; Pulse 75; Resp 18; Temp 97.9; Pulse Ox 100% on R/A; Weight 83.91 kg; mg2 Height 5 ft. 7 in. (170.18 cm); 05:12 BP 129 / 106; Pulse 73; Resp 16 S; Temp 98.4(O); Pulse Ox 95% on R/A; bb 07:05 BP 175 / 97; Pulse 84; Resp 18 S; Temp 98.4(O); Pulse Ox 98% on R/A; bb 02:41 Body Mass Index 28.97 (83.91 kg, 170.18 cm) mg2 MDM: 06:53 Differential diagnosis: arrythmia, dehydration, stress disorder, Anxiety. Data [facility] reviewed: vital signs, nurses notes, old medical records, lab test result(s), cardiac enzymes, CBC, electrolytes, urinalysis, urine drug screen, EKG, radiologic studies, plain films. Data interpreted: Pulse oximetry: on room air is 95 %. Interpretation: normal. Counseling: I had a detailed discussion with the patient and/or guardian regarding: the historical points, exam findings, and any diagnostic results supporting the discharge/admit diagnosis, the presence of at least one elevated blood pressure reading (>120/80) during this emergency department visit, lab results, radiology results, the need for outpatient follow up, to return to the emergency department if symptoms worsen or persist or if there are any questions or concerns that arise at home. Response to treatment: the patient's symptoms have resolved after treatment, the patient's blood pressure is in an acceptable range, mental status has returned to baseline, the patient no longer shows bradycardia, the patient is not short of breath, the patient is not tachycardic, the patient's pain is gone, the patient's temperature has normalized. 06:55 Patient medically screened. [facility] 09/02 05:33 Order name: Basic Metabolic Panel; Complete Time: 06:43 [facility] 09/02 05:33 Order name: CBC with Diff; Complete Time: 06:43 [facility] 09/02 05:33 Order name: LFT's; Complete Time: 06:43 [facility] 09/02 05:33 Order name: Magnesium; Complete Time: 06:43 7 09/02 05:33 Order name: NT PRO-BNP; Complete Time: 06:43 09/02 05:33 Order name: PT-INR; Complete Time: 06:43 09/02 05:33 Order name: Troponin (emerg Dept Use Only); Complete Time: 06:43 09/02 05:33 Order name: XRAY Chest (1 view) 7 09/02 05:33 Order name: EKG; Complete Time: 05:33 09/02 05:33 Order name: TSH; Complete Time: 06:43 09/02 05:33 Order name: UDS; Complete Time: 06:52 09/02 06:20 Order name: Urine Dipstick-Ancillary; Complete Time: 06:43 EDMS 09/02 05:33 Order name: Cardiac monitoring; Complete Time: 06:16 09/02 05:33 Order name: EKG - Nurse/Tech; Complete Time: 05:59 09/02 05:33 Order name: IV Saline Lock; Complete Time: 05:59 09/02 05:33 Order name: Labs collected and sent; Complete Time: 05:59 09/02 05:33 Order name: O2 Per Protocol; Complete Time: 05:59 09/02 05:33 Order name: O2 Sat Monitoring; Complete Time: 05:59 09/02 05:33 Order name: Urine Dipstick-Ancillary (obtain specimen); Complete Time: 06:16 mh7 Administered Medications: 06:16 Drug: Ativan (LORazepam) 1 mg Route: IVP; Site: right hand; bb 07:06 Follow up: Response: No adverse reaction; Marked relief of symptoms bb 06:16 Drug: NS 0.9% 1000 ml Route: IV; Rate: 1000 ml; Site: right hand; bb 07:06 Follow up: IV Status: Order to discontinue infusion; IV Intake: 800ml bb Disposition: 09/02/20 06:55 Discharged to Home. Impression: Palpitations, Anxiety. - Condition is Stable. - Discharge Instructions: Palpitations, Pwia-[id number]-Imcw, Generalized Anxiety Disorder. - Medication Reconciliation Form, Thank You Letter, Antibiotic Education, Prescription Opioid Use form. - Follow up: Private Physician; When: 1 - 2 days; Reason: Worsening of condition, Recheck today's complaints, Continuance of care, Re-evaluation by your physician. - Problem is an acute exacerbation. - Symptoms have improved. Signatures: Dispatcher [employer] EDAddie Medina RN RN Nakul Stevens RN RN mg2 Roque Husain MD MD mh7 Corrections: (The following items were deleted from the chart) 07:06 06:55 09/02/2020 06:55 Discharged to Home. Impression: Palpitations; Anxiety. Condition bb is Stable. Forms are Medication Reconciliation Form, Thank You Letter, Antibiotic Education, Prescription Opioid Use. Follow up: Private Physician; When: 1 - 2 days; Reason: Worsening of condition, Recheck today's complaints, Continuance of care, Re-evaluation by your physician. Problem is an acute exacerbation. Symptoms have improved. mh7
--- NOTE | 2020-09-02 06:56 | ER ---
Nurse's Notes [facility] Name: Srini Simpson Age: 35 yrs Sex: Male : 1985 Arrival Date: 09/02/2020 Time: 02:41 Bed 27 Private MD: Diagnosis: Palpitations;Anxiety Presentation: 09/02 02:41 Chief complaint: Patient states: i feel like having palpitation. it woke me up tonight. mg2 Coronavirus screen: Client denies travel out of the [place] in the last 14 days. Ebola Screen: No symptoms or risks identified at this time. 02:41 Method Of Arrival: Ambulatory mg2 02:51 Initial Sepsis Screen: Does the patient meet any 2 criteria? No. Patient's initial mg2 sepsis screen is negative. Does the patient have a suspected source of infection? No. Patient's initial sepsis screen is negative. Risk Assessment: Do you want to hurt yourself or someone else? Patient reports no desire to harm self or others. Onset of symptoms was September 02, 2020. 02:51 Acuity: CHRISTINE 3 mg2 Historical: - Allergies: 02:44 No Known Allergies; mg2 - Home Meds: 02:44 metoprolol tartrate 50 mg Oral tab 1 tab 2 times per day [Active]; mg2 - PMHx: 02:44 Anxiety; Depression; ETOH/drug abuse; Hypertension; Pyloric Stenosis; mg2 - Immunization history:: Flu vaccine status is unknown. - Social history:: Smoking status: Patient reports the use of cigarette tobacco products, smokes one-half pack cigarettes per day, Patient uses alcohol, occasionally. Patient/guardian denies using street drugs, IV drugs. Screenin:12 Abuse screen: Denies threats or abuse. Nutritional screening: No deficits noted. bb Tuberculosis screening: No symptoms or risk factors identified. Fall Risk None identified. Assessment: 05:12 General: Appears in no apparent distress. uncomfortable, Behavior is cooperative, bb anxious. Pain: Complains of pain in chest. Neuro: Level of Consciousness is awake, alert, obeys commands, Oriented to person, place, time, situation. Cardiovascular: Heart tones present Capillary refill < 3 seconds Patient's skin is warm and dry. Rhythm is sinus rhythm. Respiratory: Respiratory effort is even, unlabored, Respiratory pattern is regular. GI: No signs and/or symptoms were reported involving the gastrointestinal system. Derm: Skin is pink, warm \T\ dry. Musculoskeletal: Circulation, motion, and sensation intact. 07:04 Reassessment: Patient is alert, oriented x 3, equal unlabored respirations, skin bb warm/dry/pink. pt verbalized understanding of and agrees to plan of care discharge instructions given pt ambulated with steady gait to the exit Patient states feeling better. Vital Signs: 02:41 BP 127 / 84; Pulse 75; Resp 18; Temp 97.9; Pulse Ox 100% on R/A; Weight 83.91 kg; mg2 Height 5 ft. 7 in. (170.18 cm); 05:12 BP 129 / 106; Pulse 73; Resp 16 S; Temp 98.4(O); Pulse Ox 95% on R/A; bb 07:05 BP 175 / 97; Pulse 84; Resp 18 S; Temp 98.4(O); Pulse Ox 98% on R/A; bb 02:41 Body Mass Index 28.97 (83.91 kg, 170.18 cm) mg2 ED Course: 02:41 Patient arrived in ED. ag3 02:44 Arm band placed on. mg2 02:51 Triage completed. mg2 02:51 EKG done, by ED staff. mg2 04:53 Roque Husain MD is Attending Physician. mh7 05:12 Patient has correct armband on for positive identification. Bed in low position. Call bb light in reach. Pulse ox on. NIBP on. 05:55 Initial lab(s) drawn, by me, sent to lab. Inserted saline lock: 20 gauge in right hand, bb using aseptic technique. Blood collected. 05:57 XRAY Chest (1 view) In Process Unspecified. EDMS 07:05 No provider procedures requiring assistance completed. IV discontinued, intact, bb bleeding controlled, No redness/swelling at site. Pressure dressing applied. Administered Medications: 06:16 Drug: Ativan (LORazepam) 1 mg Route: IVP; Site: right hand; bb 07:06 Follow up: Response: No adverse reaction; Marked relief of symptoms bb 06:16 Drug: NS 0.9% 1000 ml Route: IV; Rate: 1000 ml; Site: right hand; bb 07:06 Follow up: IV Status: Order to discontinue infusion; IV Intake: 800ml bb Intake: 07:06 IV: 800ml; Total: 800ml. tiara Outcome: 06:55 Discharge ordered by MD. chacon 07:06 Discharged to home ambulatory. tiara 07:06 Condition: stable 07:06 Discharge instructions given to patient, Instructed on discharge instructions, follow up and referral plans. Demonstrated understanding of instructions, follow-up care. 07:06 Patient left the ED. tiara Signatures: Dispatcher [employer] Addie Muñoz RN RN bb Gardose, Michele, RN RN [facility] Lilo Canales Maurice, MD MD 7
[2020-09-02 07:25] VITALS: TEMP 98.4
[2020-09-02 07:26] VITALS: BP 175/97; O2SAT 98
--- NOTE | 2020-09-02 10:49 | RAD REPORT ---
EXAM DESCRIPTION: Lindsay Single View09/02/2020 5:58 am CLINICAL HISTORY: Palpitations COMPARISON: August 12, 2020 FINDINGS: The lungs appear clear of acute infiltrate. The heart is normal size IMPRESSION: No acute abnormalities displayed
== END 2020-09-02 07:06 | disposition home or self-care (01) ==
LOC: ER 01:56
DX: F41.9 Anxiety disorder, unspecified (principal); I10 Essential (primary) hypertension; F17.210 Nicotine dependence, cigarettes, uncomplicated
CPT/HCPCS: 36415; 71045; 80048; 80076; 80307; 81003; 83735; 83880; 84443; 84484; 85025; 85610; 96361; 96374; 99284; J7030

== ENCOUNTER 2020-09-19 05:34 | Emergency (ER) | payer SELFPAY ==
--- OUTSIDE RECORDS SUMMARY | 2020-09-19 05:36 | XMS REPORT | Continuity of Care Document ---
:1985 Author Organization [facility] t Address [address] [place] [address] Dr. Jerome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 Family History Family Member Diagnosis Comments Start Date Stop Date Source Natural father Heart attack [facility] Paternal grandfather Heart attack [facility] Maternal aunt Depression [place] [facility] Maternal uncle Alcohol abuse [place] [facility] Maternal uncle Depression [facility] thodist Maternal uncle Suicide Attempts [place] [facility] Natural mother Alcohol abuse [place] [facility] Social History Social Habit Start Date Stop Date Quantity Comments Source History of tobacco 1995-01-27 Cigarette Smoker [place] use 00:00:00 Spiritism Alcohol Comment socially [facility] Cigarettes smoked 2020-01-28 2020-01-28 [place] current (pack per 00:00:00 00:00:00 [facility] day) - Reported Cigarette 2020-01-28 2020-01-28 [place] pack-years 00:00:00 00:00:00 Spiritism Tobacco use and 2020-01-28 2020-01-28 Never used [place] exposure 00:00:00 00:00:00 Spiritism Alcohol intake 2020-01-28 2020-01-28 Current drinker [place] 00:00:00 00:00:00 of alcohol Spiritism (finding) Sex [birth year] [place] 00:00:00 00:00:00 Spiritism Smoking Status Start Date Stop Date Source Current every day smoker 2020-01-28 00:00:00 Orialejandro Almeida Medications Ordered Filled Start Stop Current Ordering Indication Dosage Frequency Signature Comments Components Source Medication Medication Date Date Medication? Clinician (SIG) Name Name venlafaxine No major 225mg QD Take 3 [place] XR 02-01 depressive capsules Meth herminio (EFFEXOR-XR 00:00: 23:59 disorder (225 [address] st ) 75 MG 24 00 :00 total) by hr capsule mouth every morning for 7 days .major depressive disorder. nicotine No smoking 2mg Q2H Chew 1 Ori reema polacrilex 01-31 cessation each (2 mg Methodi (NICORETTE) 00:00: 23:59 total) st 2 mg gum 00 :00 every 2 (two) hours as needed for smoking cessation for up to 30 days .stop smoking. metoprolol No hypertensio 50mg Q.5D Take 1 [place] tartrate 01-31 n tablet (50 Meth herminio (LOPRESSOR) 00:00: 23:59 mg total) st 50 mg 00 :00 by mouth tablet BID at 0700, 1900 for 30 days .high blood pressure. busPIRone 2019- No generalized 7.5mg Q.5D Take 1 [place] (BUSPAR) 01-31 anxiety tablet Metho di 7.5 MG 00:00: 23:59 disorder (7.[address] tablet 00 :00 total) by mouth 2 (two) times a day for 7 days .repeated episodes of anxiety. Immunizations Ordered Immunization Filled Immunization Date Status Commen ts Source Name Name MORALES ESTEBAN PF 2020-01-28 [facility] 00:00:00 Spiritism Vital Signs Vital Name Observation Time Observation Value Comments Source Body weight 2020-02-01 07:04:00 85.548 kg [place] [facility] BMI 2020-02-01 07:04:00 29.54 kg/m2 [place] [facility] Systolic blood 2020-02-01 06:09:39 138 mm[Hg] [place] [facility] pressure Diastolic blood 2020-02-01 06:09:39 78 mm[Hg] [place] [facility]ism pressure Heart rate 2020-02-01 06:09:39 62 /min [place] [facility] Body temperature 2020-02-01 06:09:39 36.5 Siobhan [place] [facility] Respiratory rate 2020-02-01 06:09:39 18 /min [place] [facility] Oxygen saturation in 2020-02-01 06:09:39 98 /min [place] [facility] Arterial blood by Pulse oximetry Body height 2020-01-28 14:00:00 170.2 cm Anthony Almeida Procedures Procedure Date / Time Performed Performing Clinician Sourc e HEMOGLOBIN A1C 2020-01-29 06:10:00 Lelo Pelaez [facility] LIPID PANEL 2020-01-29 06:10:00 Lelo Pelaez [facility] HEPATITIS ACUTE PANEL 2020-01-29 06:10:00 Lelo Pelaez [facility] GGT 2020-01-29 06:10:00 Lelo Pelaez [facility] MAGNESIUM LEVEL 2020-01-29 06:10:00 Lelo Pelaez [facility] HIV AG/AB COMBINATION 2020-01-29 06:10:00 Lelo Pelaez [facility] Encounters Start End Encounter Admission Attending Care Care Encounter Source Date/Time Date/Time Type Type Clinicians Facility Department ID 2019-12-28 Inpatient 3 Ted Hassan [facility] PS[facility] [id number] 22:04:00 Ted Hassan - 819 [facility] 2020-07-28 2020-07-28 Emergency [facility] [id number] 13:17:00 20:00:00 Lalito Huang [id number] [place] 4.2.7.2.686 [place] [id number] 2020-06-30 2020-06-30 Emergency [facility] [id number] 05:26:00 10:11:00 Ciera Huang [id number] [place]chan[place] 4.2.7.2.686 [place] [id number] 2020-06-23 2020-06-23 Emergency Shelley Shahid [facility] [id number] 13:46:00 15:46:00 Margarita Huang [id number] Humphrey 4.2.7.2.686 [place] [id number] 2020-01-28 2020-02-01 [facility] [id number] [place] [address] 00:00:00 00:00:[address] ROSI [address] 2019-12-28 2020-01-02 Inpatient 3 Ted Hassan [facility] PSY [id number] St. 22:04:00 17:20:00 Ted Hassan [facility] 2019-11-09 2019-11-10 [facility] [id number] 23:06:12 01:26:00 Clovis Huang 350.1.13.10 [place] 4.2.7.2.686 [place] [id number] 082019-09-29 2019-09-29 Emergency [facility] [id number] 09:39:50 11:47:00 Johan Huang 350.1.13.10 [place] 4.2.7.2.686 [place] [id number] 084 2019-06-16 2019-06-16 Emergency Fatimah, [facility] [id number] 07:08:27 08:57:00 Nadine Huang 350.1.13.10 [place] 4.2.7.2.686 [place] [id number] 2019-06-15 2019-06-15 Emergency Shelley Shahid [facility] [id number] 11:30:00 13:30:00 Margarita Sal 350.1.13.10 [place] 4.2.7.2.686 [place] [id number] 2019-06-15 2019-06-15 Orders Doctor MCGINNIS [id number] 00:00:00 00:00:00 Only Unassigned, KAY 350.1.13.10 [place] 4.2.7.2.686 [id number] 2019-06-06 2019-06-06 Letter Clinic, [facility] [id number] 00:00:00 00:00:00 (Out) Neurology [facility] 350.1.13.10 [facility]IN[facility] 4.2.7.2.686 [id number] 2019 2019 Urgent [place], [facility] [id number] 10:16:26 10:55:54 Care July [facility] 350.1.13.10 Surgical 4.2.7.2.686 Specialti [id number] teddy Huang 2019 2019 Orders Doctor MCGINNIS [id number] 00:00:00 00:00:00 Only Unassigned, KAY 350.1.13.10 [place] 67879.2.7.2.686 [id number] 2019-01-24 2019-01-24 Emergency [facility] [id number] 15:49:15 22:27:00 Anitra Huang 350.1.13.10 [place] 4.2.7.2.686 [place] [id number] 2019-01-24 2019-01-24 Orders Doctor MCGINNIS [id number] 00:00:00 00:00:00 Only Unassigned, KAY 350.1.13.10 [place] [facility] 4.2.7.2.686 [id number] 2018-12-21 2018-12-21 Emergency [facility] [id number] 17:07:20 19:42:00 Dejah Huang 350.1.13.10 [place] 4.2.7.2.686 [place] [id number] 2018-12-21 2018-12-21 Orders Doctor MCGINNIS 1.2.840.114 [id number] 00:00:00 00:00:00 Only Unassigned, KAY 350.1.13.10 [place] [facility] 4.2.7.2.686 [id number] Results Test Description Test Time Test [...] code = Expiration Dt) 02-07-2021 N Lipid [id number] 07:26:04 Test Item Value Reference Range Interpretation [...] LDL/HDL Ratio=L DL Calc/HDL Chol Thyroid Stimulating [id number] 07:26:04 Test Item Value Reference Range Interpretation Comments TSH (test code = TSH) 1.757 mcIU/mL 0.550-4.780 Hemoglobin [id number] 07:26:03 Test Item Value Reference Range Interpretation Comments Hemoglobin A1c (test code 4.9 % 4.0-5.8 Di abetic >=6.5 = Hemoglobin A1c) %Prediabet es 5.7-6.4 %Normal <5.7 % MYOCARD IMAGING, MULTI, [id number] 14:45:00FINAL REPORT PROCEDURE: Rest/Stress MYOCARDIAL PERFUSION SPECT with treadm ill\XA9\ CPT CODE: 93322 INDICATION: Chest pain HISTORY: Cardiac risk factors: [...] 5. Normal extracardiactracer distribution. 6. No previous [facility] study for comparison. NONINVASIVE RISK STRATIFICATION: The above findings are considered low risk (<1% annual mortality rate) based on the following criterion:- Normal or small myocardial perfusion defect at rest or with stress(JACC. 2012;59(9):857-81.) Signed: Albert Ruvalcaba Verified Date/Time: 03/17/2017 14:45:11 Reading Location: [address] Reading Room HEMOGLOBIN [id number] 08:29:00 Test Item Value Reference Range Interpretation Comments HEMOGLOBIN A1C (BEAKER) (test code = 5.5 % 4.3-6.1 368) CREATINE KINASE (CK), TOTAL AND [id number] 02:45:00 Test Item Value Reference Range Interpretation Comments CREATINE KINASE TOTAL (BEAKER) 34 U/L 29-200 (test code = 380) CREATINE KINASE-MB (BEAKER) (test 0.4 ng/mL 0.0-6.6 code = 750) CREATINE KINASE-MB INDEX (BEAKER) 1.2 % (test code = 395) CK-MB Reference Range:<6.7 Normal6.7-10.0 Borderline>10.0 [id number] [id number] 02:45:00 Test Item Value Reference Range Interpretation [...] and persistent tachyarrhythmia.RAD, CHEST, 1 VIEW, NON [id number] 20:40:00Reason for exam:->chest painShould this be performed at the bedside?->YesFINAL REPORT EXAMINATION: AP PORTABLE CHEST RADIOGRAPH CLINICAL INDICATION:Chest pain IMPRESSION: Compared with 04/30/2016. No evidence of focal lung consolidation, pulmonary edema or pleural effusion. The heart size is normal. Mediastinal contours are sharp. No evidence of an acute osseous abnormality or pneumothorax. Signed: Santhosh Castle Verified Date/Time: 03/16/2017 20:40:21 Reading Location: [address] Reading Room B-TYPE NATRIURETIC FACTOR (BNP)2017-03-16 20:30:00 Test Item Value Reference Range Interpretation Comments B-TYPE NATRIURETIC PEPTIDE (BEAKER) < pg/mL 0-100 (test code = 700) COMPREHENSIVE METABOLIC [id number] 20:30:00 Test Item Value Reference Range Interpretation [...] DATA T O CALCULATE ESTIM ATED GFR. TROPONIN [id number] 20:28:00 Test Item Value Reference Range Interpretation [...] failure, acidosis, acute neurological disease, and persistent tachyarrhythmia.CREATINE KINASE (CK), TOTAL AND MB 2017-03-16 20:28:00 Test Item Value Reference Range Interpretation Comments CREATINE KINASE TOTAL (BEAKER) 50 U/L 29-200 (test code = 380) CREATINE KINASE-MB (BEAKER) (test 0.5 ng/mL 0.0-6.6 code = 750) CREATINE KINASE-MB INDEX (BEAKER) 1.0 % (test code = 395) CK-MB Reference Range:<6.7 Normal6.7-10.0 Borderline>10.0 [id number] 20:21:00 Test Item Value Reference Range Interpretation Comments MAGNESIUM (BEAKER) 2.2 mg/dL 1.6-2.6 Specimen slightly (test code = 627) hemolyzed [id number] 20:21:00 Test Item Value Reference Range Interpretation Comments PHOSPHORUS (BEAKER) 3.9 mg/dL 2.3-4.7 Specimen slightly (test code = 604) hemolyzed LIPID [id number] 20:21:00 Test Item Value Reference Range Interpretation [...] Borderline 130-159 High 160-189 Very High >=190PROTHROMBIN TIME/[id number] 20:07:00 Test Item Value Reference Range Interpretation Comments PROTIME (BEAKER) (test code = 13.0 seconds 11.7-14.7 759) INR (BEAKER) (test code = 370) 1.0 <=5.9 RECOMMENDED COUMADIN/WARFARIN INR THERAPY RANGESSTANDARD DOSE: 2.0 - 3.0 Includes: PROPHYLAXIS forvenous thrombosis, systemic embolization; TREATMENT for venous thrombosis and/or pulmonary embolus.HIGH RISK: Target INR is 2.5-3.5 for patients with mechanical heart valves.[id number] 20:07:00 Test Item Value Reference Range Interpretation Comments PARTIAL THROMBOPLASTIN TIME 26.9 seconds 22.5-36.0 (BEAKER) (test code = 760) CBC W/PLT COUNT & AUTO [id number] 19:57:00 Test Item Value Reference Range Interpretation [...] % 0-1 PERCENT (BEAKER) (test code = 5372)
[2020-09-19 05:52] LABS: Absolute Lymphocytes (CBC) 2.6 K/uL (0.7-4.9); Basophils % 1.4 % (0-1.3); Hematocrit 47.7 % (39.6-49.0); Lymphocytes % 28.5 % (15.3-44.8); MPV 7.4 fL (7.6-11.3); RBC Red Blood Cell Count 5.38 M/uL (4.33-5.43)
[2020-09-19] MEDS ORDERED: NA CHLORIDE 0.9% 1,000 ML ONE (05:57)
[2020-09-19 07:05] LABS: ALT/SGPT 76 U/L (12-78); Albumin 3.7 g/dL (3.4-5.0); Alkaline Phosphatase 81 U/L (45-117); BUN Blood Urea Nitrogen 15 mg/dL (7-18); Bicarbonate 19 mmol/L (21-32); Bilirubin Direct < 0.1 mg/dL (0-0.2); Bilirubin Total 0.3 mg/dL (0.2-1.0); Glucose Level 128 mg/dL (74-106); NT PRO-BNP 7 pg/mL (<125); Protein, Total 7.7 g/dL (6.4-8.2); Sodium Level 139 mmol/L (136-145); Troponin (Emerg Dept Use Only) < 0.02 ng/mL (0.0-0.045)
[2020-09-19 07:06] LABS: AST/SGOT 82 U/L (15-37); Potassium 4.3 mmol/L (3.5-5.1)
[2020-09-19 07:07] LABS: Magnesium 2.2 mg/dL (1.8-2.4)
[2020-09-19 07:21] LABS: Urine Blood Negative (Negative); Urine Glucose Negative (Negative); Urine Protein 2+ (Negative); Urine Specific Gravity >=1.030 (1.005-1.030); Urine pH 5.5 (5.0-7.0)
[2020-09-19 07:37] LABS: Barbiturates NEGATIVE (NEGATIVE); Benzodiazepines POSITIVE (NEGATIVE); Cocaine NEGATIVE (NEGATIVE); METHAMPHETAM NEGATIVE (NEGATIVE); Methadone NEGATIVE (NEGATIVE); Opiates NEGATIVE (NEGATIVE); Phencyclidine NEGATIVE (NEGATIVE); THC Cannibis NEGATIVE (NEGATIVE)
--- NOTE | 2020-09-19 08:05 | ER ---
Nurse's Notes [facility] Name: Srini Simpson Age: 35 yrs Sex: Male : 1985 Arrival Date: 09/19/2020 Time: 05:36 Bed 5 Private MD: Diagnosis: Major depressive disorder, recurrent;Chest pain, unspecified;Alcohol abuse;Anxiety disorder, unspecified Presentation: 09/19 05:43 Chief complaint: EMS states: Pt reported he had been drinking all night, complaining of ea chest pressure 7/10. 20 G IV established in right AC per EMS. Coronavirus screen: At this time, the client does not indicate any symptoms associated with coronavirus-19. Ebola Screen: No symptoms or risks identified at this time. Initial Sepsis Screen: Does the patient meet any 2 criteria? No. Patient's initial sepsis screen is negative. Does the patient have a suspected source of infection? No. Patient's initial sepsis screen is negative. Risk Assessment: Do you want to hurt yourself or someone else? Patient reports no desire to harm self or others. Onset of symptoms was September 19, 2020. 05:43 Method Of Arrival: EMS: [facility] 05:43 Acuity: CHRISTINE 3 ea Historical: - Allergies: 05:48 No Known Drug Allergies; ea - Home Meds: 05:48 metoprolol tartrate 50 mg Oral tab 1 tab 2 times per day [Active]; Klonopin 1 mg Oral ea tab 1 tab 2 times per day [Active]; - PMHx: 05:48 Pyloric Stenosis; Hypertension; ETOH/drug abuse; Depression; Anxiety; ea - Immunization history:: Adult Immunizations up to date. - Social history:: Smoking status: Patient denies any tobacco usage or history of. Screenin:46 Abuse screen: Denies threats or abuse. Nutritional screening: No deficits noted. ea Tuberculosis screening: No symptoms or risk factors identified. Fall Risk IV access (20 points). Assessment: 05:48 General: Appears in no apparent distress. Behavior is anxious. Pain: Complains of pain ea in chest Pain does not radiate. Pain began 1 hour ago. Neuro: Level of Consciousness is awake, alert, obeys commands, Oriented to person, place, time. Cardiovascular: Patient's skin is warm and dry. Respiratory: Airway is patent Respiratory effort is even, unlabored, Respiratory pattern is regular, symmetrical. Derm: Skin is pink, warm \T\ dry. 06:49 Reassessment: Patient and/or family updated on plan of care and expected duration. Pain ea level reassessed. Patient is alert, oriented x 3, equal unlabored respirations, skin warm/dry/pink. 07:55 Reassessment: Patient appears in no apparent distress at this time. repeat trop. sent em to lab. 08:10 Reassessment: pending trop. before being dischaged. em 08:30 Reassessment: pt actively vomiting after Zofran, Dr. Shaw notified, received VO for em 12.5 mg Phenergan IVP x 1. 09:01 Reassessment: reports nausea is better but still feels anxious, pt reports he takes em Klonopin 1 mg BID, Dr. Shaw notified, Klonopin 1 mg PO x 1 given before discharge. Vital Signs: 05:43 BP 161 / 111; Pulse 110; Resp 20; Temp 98; Pulse Ox 99% ; ea 06:49 BP 155 / 100; Pulse 115; Resp 18; Pulse Ox 98% ; ea 07:27 BP 170 / 106; Pulse 114; Resp 20; Pulse Ox 100% on R/A; em 08:11 BP 162 / 91; Pulse 118; Resp 18; Pulse Ox 97% ; sv ED Course: 05:36 Patient arrived in ED. ea 05:45 Ro Vizcarra, RN is Primary Nurse. ea 05:46 Luis Carr MD is Attending Physician. tw4 05:46 Triage completed. ea 05:46 Patient has correct armband on for positive identification. Bed in low position. Call ea light in reach. Side rails up X 1. awning frame maker on. Pulse ox on. NIBP on. 05:46 Maintain EMS IV. Dressing intact. Good blood return noted. Site clean \T\ dry. Gauge \T\ ea site: 20 G RAC. Patient maintains SpO2 saturation greater than 95% on room air. 05:47 Arm band placed on right wrist. Patient placed in an exam room, on a stretcher, on ea pulse oximetry. 06:09 XRAY Chest (1 view) In Process Unspecified. EDMS 07:21 Attending Physician role handed off by Luis Carr MD nehemias 07:21 Jeevan Shaw MD is Attending Physician. nehemias 08:03 Mega Del Cid MD is Referral Physician. nehemias 08:03 Austin Martinez MD is Referral Physician. nehemias 09:08 No provider procedures requiring assistance completed. IV discontinued, intact, em bleeding controlled, No redness/swelling at site. Pressure dressing applied. Administered Medications: 05:46 Drug: NS 0.9% 1000 ml Route: IV; Rate: 1 bolus; Site: right antecubital; ea 08:25 Follow up: IV Status: Completed infusion; IV Intake: 1000ml em 08:17 Drug: Zofran (Ondansetron) 4 mg Route: IVP; Site: right antecubital; sv 08:35 Follow up: Response: No adverse reaction; Nausea unchanged em 08:19 Drug: Ativan (LORazepam) 1 mg Route: IVP; Site: right antecubital; sv 08:35 Follow up: Response: No adverse reaction em 08:32 Drug: Phenergan (promethazine) 12.5 mg Route: IVP; Site: right antecubital; em 09:00 Follow up: Response: No adverse reaction; Nausea is decreased em 09:09 Drug: KLONopin (clonazePAM) 1 mg Route: PO; em 09:16 Follow up: Response: Medication administered at discharge. em Intake: 08:25 IV: 1000ml; Total: 1000ml. em Outcome: 08:04 Discharge ordered by . nehemias 09:08 Discharged to home ambulatory. em 09:08 Condition: stable 09:08 Discharge instructions given to patient, Instructed on discharge instructions, follow up and referral plans. medication usage, Demonstrated understanding of instructions, follow-up care, medications, Prescriptions given X 2. 09:17 Patient left the ED. em Signatures: Dispatcher [employer] Griselda De La Cruz RN RN sv Anderson, Corey, MD MD cha Munoz, Edgar, RN RN em Antunez, Elena, RN RN ea Wadley, Terrence, MD MD tw4
--- NOTE | 2020-09-19 08:05 | EDPHYS ---
Physician Documentation [facility] Name: Srini Simpson Age: 35 yrs Sex: Male : 1985 Arrival Date: 09/19/2020 Time: 05:36 Bed 5 Private MD: ED Physician Jeevan Shaw HPI: 09/19 06:05 This 35 yrs old Male presents to ER via EMS with complaints of Chest Pain. tw4 06:05 The patient or guardian reports chest pain that is located primarily in the anterior tw4 chest wall, left. The pain does not radiate. Associated signs and symptoms: The patient has no apparent associated signs or symptoms. The chest pain is described as dull. Duration: The patient or guardian reports a single episode, that is now resolved. Severity of pain: At its worst the pain was moderate in the emergency department the pain is unchanged. The patient has not experienced similar symptoms in the past. Historical: - Allergies: 05:48 No Known Drug Allergies; ea - Home Meds: 05:48 metoprolol tartrate 50 mg Oral tab 1 tab 2 times per day [Active]; Klonopin 1 mg Oral ea tab 1 tab 2 times per day [Active]; - PMHx: 05:48 Pyloric Stenosis; Hypertension; ETOH/drug abuse; Depression; Anxiety; ea - Immunization history:: Adult Immunizations up to date. - Social history:: Smoking status: Patient denies any tobacco usage or history of. ROS: 06:05 Constitutional: Negative for fever, chills, and weight loss, Eyes: Negative for injury, tw4 pain, redness, and discharge, Respiratory: Negative for shortness of breath, cough, wheezing, and pleuritic chest pain, Abdomen/GI: Negative for abdominal pain, nausea, vomiting, diarrhea, and constipation, Back: Negative for injury and pain, MS/Extremity: Negative for injury and deformity, Skin: Negative for injury, rash, and discoloration, Neuro: Negative for headache, weakness, numbness, tingling, and seizure. 06:05 Cardiovascular: Positive for chest pain, Negative for edema, palpitations, paroxysmal nocturnal dyspnea. Exam: 06:05 Constitutional: This is a well developed, well nourished patient who is awake, alert, tw4 and in no acute distress. Head/Face: Normocephalic, atraumatic. Chest/axilla: Normal chest wall appearance and motion. Nontender with no deformity. No lesions are appreciated. Cardiovascular: Regular rate and rhythm with a normal S1 and S2. No gallops, murmurs, or rubs. Normal PMI, no JVD. No pulse deficits. Respiratory: Lungs have equal breath sounds bilaterally, clear to auscultation and percussion. No rales, rhonchi or wheezes noted. No increased work of breathing, no retractions or nasal flaring. Abdomen/GI: Soft, non-tender, with normal bowel sounds. No distension or tympany. No guarding or rebound. No evidence of tenderness throughout. Back: No spinal tenderness. No costovertebral tenderness. Full range of motion. MS/ Extremity: Pulses equal, no cyanosis. Neurovascular intact. Full, normal range of motion. Neuro: Awake and alert, GCS 15, oriented to person, place, time, and situation. Cranial nerves II-XII grossly intact. Motor strength 5/5 in all extremities. Sensory grossly intact. Cerebellar exam normal. Normal gait. Psych: Awake, alert, with orientation to person, place and time. Behavior, mood, and affect are within normal limits. Vital Signs: 05:43 BP 161 / 111; Pulse 110; Resp 20; Temp 98; Pulse Ox 99% ; ea 06:49 BP 155 / 100; Pulse 115; Resp 18; Pulse Ox 98% ; ea 07:27 BP 170 / 106; Pulse 114; Resp 20; Pulse Ox 100% on R/A; em 08:11 BP 162 / 91; Pulse 118; Resp 18; Pulse Ox 97% ; sv MDM: 07:24 Patient medically screened. nehemias 09/19 05:36 Order name: Basic Metabolic Panel; Complete Time: 07:59 09/19 05:36 Order name: CBC with Diff; Complete Time: 06:05 09/19 06:05 Interpretation: Normal except: MPV 7.4; BASO% 1.4. tw4 09/19 05:36 Order name: LFT's; Complete Time: 07:59 09/19 05:36 Order name: Magnesium; Complete Time: 07:59 09/19 05:36 Order name: NT PRO-BNP; Complete Time: 07:59 09/19 05:36 Order name: PT-INR; Complete Time: 07:59 09/19 05:36 Order name: Troponin (emerg Dept Use Only); Complete Time: 07:59 ea 09/19 05:36 Order name: XRAY Chest (1 view) ea 09/19 06:05 Order name: Urine Drug Screen; Complete Time: 07:59 tw4 09/19 07:20 Order name: Urine Dipstick-Ancillary; Complete Time: 07:59 EDMS 09/19 07:46 Order name: Troponin (emerg Dept Use Only) bd 09/19 05:36 Order name: EKG; Complete Time: 05:37 ea 09/19 05:36 Order name: Cardiac monitoring; Complete Time: 05:49 ea 09/19 05:36 Order name: EKG - Nurse/Tech; Complete Time: 05:49 ea 09/19 05:36 Order name: IV Saline Lock; Complete Time: 05:49 ea 09/19 05:36 Order name: Labs collected and sent; Complete Time: 05:49 ea 09/19 05:36 Order name: O2 Per Protocol; Complete Time: 05:49 ea 09/19 05:36 Order name: O2 Sat Monitoring; Complete Time: 05:49 ea EC:05 Rhythm is regular. QRS [place] is Normal. [place] interval is normal. QRS interval is normal. tw4 QT interval is normal. No Q waves. T waves are Normal. No ST changes noted. Clinical impression: Sinus tachycardia. Interpreted by me. Reviewed by me. Administered Medications: 05:46 Drug: NS 0.9% 1000 ml Route: IV; Rate: 1 bolus; Site: right antecubital; ea 08:25 Follow up: IV Status: Completed infusion; IV Intake: 1000ml em 08:17 Drug: Zofran (Ondansetron) 4 mg Route: IVP; Site: right antecubital; sv 08:35 Follow up: Response: No adverse reaction; Nausea unchanged em 08:19 Drug: Ativan (LORazepam) 1 mg Route: IVP; Site: right antecubital; sv 08:35 Follow up: Response: No adverse reaction em 08:32 Drug: Phenergan (promethazine) 12.5 mg Route: IVP; Site: right antecubital; em 09:00 Follow up: Response: No adverse reaction; Nausea is decreased em 09:09 Drug: KLONopin (clonazePAM) 1 mg Route: PO; em 09:16 Follow up: Response: Medication administered at discharge. em Disposition: 09/19/20 08:04 Discharged to Home. Impression: Major depressive disorder, recurrent, Chest pain, unspecified, Alcohol abuse, Anxiety disorder, unspecified. - Condition is Stable. - Discharge Instructions: Nonspecific Chest Pain, Nonspecific Chest Pain, Prvn-rp-Qjog, Aspirin and Your Heart, Generalized Anxiety Disorder, Major Depressive Disorder, Gepo-wf-Bnnh. - Prescriptions for Hydroxyzine HCl 50 mg Oral Tablet - take 1 tablet by ORAL route every 8 hours As needed; 20 tablet. Pepcid 20 mg Oral Tablet - take 1 tablet by ORAL route every 12 hours for 10 days; 20 tablet. - Medication Reconciliation Form, Thank You Letter, Antibiotic Education, Prescription Opioid Use form. - Follow up: Private Physician; When: 2 - 3 days; Reason: Recheck today's complaints, Continuance of care, Re-evaluation by your physician. Follow up: Mega Del Cid MD; When: 2 - 3 days; Reason: Recheck today's complaints, Continuance of care, Re-evaluation by your physician. Follow up: Austin Martinez MD; When: 2 - 3 days; Reason: Recheck today's complaints, Re-evaluation by your physician. - Problem is new. - Symptoms have improved. Signatures: Dispatcher [employer] Griselda De La Cruz RN RN sv Anderson, Corey, MD MD cha Munoz, Edgar, RN RN Ro Vizcarra RN RN ea Wadley, Terrence, MD MD tw4 Corrections: (The following items were deleted from the chart) 09:17 08:04 09/19/2020 08:04 Discharged to Home. Impression: Major depressive disorder, em recurrent; Chest pain, unspecified; Alcohol abuse; Anxiety disorder, unspecified. Condition is Stable. Forms are Medication Reconciliation Form, Thank You Letter, Antibiotic Education, Prescription Opioid Use. Follow up: Private Physician; When: 2 - 3 days; Reason: Recheck today's complaints, Continuance of care, Re-evaluation by your physician. Follow up: Mega Del Cid; When: 2 - 3 days; Reason: Recheck today's complaints, Continuance of care, Re-evaluation by your physician. Follow up: Austin Martinez; When: 2 - 3 days; Reason: Recheck today's complaints, Re-evaluation by your physician. Problem is new. Symptoms have improved. nehemias
[2020-09-19] MEDS ORDERED: LORazepam 2 MG/ML VIAL ONE (08:36)
[2020-09-19] MEDS ORDERED: ONDANSETRON 4 MG/2 ML VIAL ONE (08:36)
--- NOTE | 2020-09-19 08:39 | RAD REPORT ---
EXAM DESCRIPTION: RAD - Chest Single View - 09/19/2020 6:09 am CLINICAL HISTORY: CHEST PAIN Chest pain. COMPARISON: Chest Single View dated 09/02/2020; Chest Single View dated 08/12/2020; Chest Single View d ated 07/21/2020; Chest Single View dated 07/19/2020 FINDINGS: Portable technique limits examination quality. The lungs are grossly clear. The heart is normal in size. No displaced fractures. IMPRESSION: No acute intrathoracic process suspected.
[2020-09-19] MEDS ORDERED: PROMETHAZINE INJ 25 MG/ML AMP ONE (08:50)
[2020-09-19 09:22] VITALS: TEMP 98
[2020-09-19] MEDS ORDERED: clonazePAM 1 MG TAB ONE (09:23)
[2020-09-19 09:26] VITALS: BP 162/91; O2SAT 97
== END 2020-09-19 09:17 | disposition home or self-care (01) ==
LOC: ER 05:34
DX: F33.9 Major depressive disorder, recurrent, unspecified (principal); F10.10 Alcohol abuse, uncomplicated; F41.9 Anxiety disorder, unspecified; I10 Essential (primary) hypertension
CPT/HCPCS: 36415; 71045; 80048; 80076; 80307; 81003; 83735; 83880; 84484; 85025; 85610; 93005; 96361; 96374; 96375; 99285; J2405; J2550; J7030

== ENCOUNTER 2021-01-18 12:16 | Emergency (ER) | payer SELFPAY ==
--- OUTSIDE RECORDS SUMMARY | 2021-01-18 12:21 | XMS REPORT | Continuity of Care Document ---
:[address] [facility] t Address [address] [place] [address] [address]. 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 Family History Family Member Diagnosis Comments Start Date Stop Date Source Natural father Heart attack [facility] Paternal grandfather Heart attack [facility] Maternal aunt [facility] Maternal uncle Alcohol abuse [facility] Maternal uncle Depression [facility] Maternal uncle Suicide Attempts Meth [facility] Natural mother Alcohol abuse [facility] Social History Social Habit Start Date Stop Date Quantity Comments Source History of tobacco 1995-01-27 Current every Met [facility] use 00:00:00 day smoker Hospital Alcohol Comment socially [facility] Sex Assigned At [facility] Cigarette 2020-01-28 2020-01-28 [facility] pack-years 00:00:00 00:00:00 Hospital Cigarettes smoked 2017-03-16 2017-03-16 [facility] - current (pack per 00:00:00 00:00:00 Medical Center day) - Reported Tobacco use and 2017-03-16 2017-03-16 Never used ROWAN Weinstein kes - exposure 00:00:00 00:00:00 [facility] Alcohol intake 2017-03-16 2017-03-16 Current drinker ROWAN Madrigal - 00:00:00 00:00:00 of alcohol [facility] (finding) Smoking Status Start Date Stop Date Source Current every day smoker 2017-03-16 00:00:00 [facility] Medications Ordered Filled Start Stop Current Ordering Indication Dosage Frequency Signature Comments Components Source Medication Medication Date Date Medication? Clinician (SIG) Name Name venlafaxine 2019- [place] 333[address] 225mg QD Take 3 M ethodi XR 02-[address] (EFFEXOR-XR 00:00: 04:59 (225 mg Ho spita ) 75 MG 24 00 :00 total) by l hr capsule mouth every morning for 7 days .major depressive disorder. nicotine 2019- [place] [address] 2mg Q2H Chew 1 Metho di polacrilex 01-31 each ([address] (NICORETTE) 00:00: 04:59 total) Hos sugey 2 mg gum 00 :00 every 2 l (two) hours as needed for smoking cessation for up to 30 days .stop smoking. metoprolol 2019- No [address] 50mg Q.5D Take 1 Met hodi tartrate 01-31 tablet (50 st (LOPRESSOR) 00:00: 04:59 mg total) Hospita 50 mg 00 :00 by mouth l tablet BID at 0700, 1900 for 30 days .high blood pressure. busPIRone 2019- [place] [address] 7.5mg Q.5D Take 1 Met hodi (BUSPAR) 01-[address] 7.5 MG 00:00: 04:59 (7.5 mg Hospita tablet 00 :00 total) by l mouth 2 (two) times a day for 7 days .repeated episodes of anxiety. Immunizations Ordered Immunization Filled Immunization Date Status Commen ts Source Name Name MORALES ESTEBAN PF 2020-01-[address] 00:00:00 Hospital Vital Signs Vital Name Observation Time Observation Value Comments Source Body weight 2020-02-01 12:04:00 85.548 [facility] BMI 2020-02-01 12:04:00 29.54 kg/m2 [facility] [place] Systolic blood 2020-02-01 11:09:39 138 mm[Hg] [facility] pressure Diastolic blood 2020-02-01 11:09:39 78 mm[Hg] [facility] pressure Heart rate 2020-02-01 11:09:39 62 /min [facility] [place] Body temperature 2020-02-01 11:09:39 36.5 Siobhan [facility] Respiratory rate 2020-02-01 11:09:39 18 /min [facility] Oxygen saturation in 2020-02-01 11:09:39 98 /min [facility] Arterial blood by Pulse oximetry Body height 2020-01-28 19:00:[address] [facility] [place] Procedures Procedure Date / Time Performed Performing Clinician Sourc e HEMOGLOBIN A1C 2020-01-29 11:10:00 [facility] LIPID PANEL 2020-01-29 11:10:00 [facility] HEPATITIS ACUTE PANEL 2020-01-29 11:10:00 [facility] GGT 2020-01-29 11:10:00 [facility] MAGNESIUM LEVEL 2020-01-29 11:10:00 [facility] HIV AG/AB COMBINATION 2020-01-29 11:10:00 [facility] Encounters Start End Encounter Admission Attending Care Care Encounter Source Date/Time Date/Time Type Type Clinicians Facility Department ID 2019-12-28 Inpatient 3 Ted Hassan [facility] PSY [id number] 22:04:00 Ted Hassan - 819 [facility] 2020-07-28 2020-07-28 Emergency [facility] [id number] 13:17:00 20:00:00 Lalito Huang [id number] [place] 4.2.7.2.686 [place] [id number] 2020-06-30 2020-06-30 [facility] [id number] 05:26:00 10:11:00 Ciera Huang [id number] [place] 4.2.7.2.686 [place] [id number] 2020-06-23 2020-06-23 Emergency Zehra, Shelley [facility] [id number] 13:46:00 15:46:00 Margairta Huang [id number] [place] 4.2.7.2.686 [place] [id number] [id number] 2020-01-28 2020-02-01 [facility] [id number] [facility] 14:08:19 14:20:00 Encounter Nelly M. [id number] 3.430.2.7 Hospit a .[id number] l .8 2020-01-28 2020-02-01 [facility] [id number] [place] [address] 00:00:00 00:00:[address] NELLY [address] 2019-12-28 2020-01-02 Inpatient 3 Ted Hassan [facility] PSY [id number] St. 22:04:00 17:20:00 Ted Hassan [facility] 2019-11-09 2019-11-10 [facility] [id number] 23:06:12 01:26:00 Clovis Huang [id number] [place] 4.2.7.2.686 [place] [id number] [id number] 2019-09-29 2019-09-29 Emergency [facility] [id number] 09:39:50 11:47:00 Johan Huang [id number] [place] 4.2.7.2.686 [place] [id number] 2019-06-16 2019-06-16 [facility] [id number] 07:08:27 08:57:00 Nadine Huang [id number] [place] 4.2.7.2.686 [place] [id number] 2019-06-15 2019-06-15 Emergency Zehra Shelley [facility] [id number] 11:30:00 13:30:00 Margarita Huang [id number] [place] 4.2.7.2.686 [place] [id number] 2019-06-15 2019-06-15 Orders Doctor RAS [id number] 00:00:00 00:00:00 Only Unassigned, KAY [id number] [place] [facility] 4.2.7.2.686 [id number] 2019-06-06 2019-06-06 Letter Clinic, [facility] [id number] 00:00:00 00:00:00 (Out) Neurology [facility] [id number] [facility] 2.7.2.686 [id number] 2 2019 2019 [facility] 1.2.840.114 [id number] 10:16:26 10:55:54 Care [facility] [id number] Surgical .2.7.2.686 [facility] [id number] Khai Sal 2019 2019 Orders Doctor RAS 1.2.840.114 [id number] 00:00:00 00:00:00 Only Unassigned, KAY 350.1.13.10 [place] [address]686 [id number] [id number] 2019-01-24 2019-01-24 Emergency [facility] [id number] 15:49:15 22:27:00 Anitra Huang 350.1.13.10 [place] [address].2.7.2.686 [place] [id number] [id number] 2019-01-24 2019-01-24 Orders Doctor MCGINNIS 1.2.840.114 [id number] 00:00:00 00:00:00 Only Unassigned, KAY 350.1.13.10 [place] [address]686 [id number] 2018-12-21 2018-12-21 Emergency [facility] [id number] 17:07:20 19:42:00 Dejah Huang 350.1.13.10 [place] 4.2.7.2.686 [place] [id number] [id number] 2018-12-21 2018-12-21 Orders Doctor RAS 1.2.840.114 [id number] 00:00:00 00:00:00 Only Unassigned, KAY 350.1.13.10 [place] [facility] 4.2.7.2.686 [id number] Results Test Description Test Time Test [...] = Expiration Dt) 02-07-2021 N Thyroid Stimulating [id number] 07:26:04 Test Item Value Reference Range Interpretation Comments TSH (test code = TSH) 1.757 mcIU/mL 0.550-4.780 Lipid [id number] 07:26:04 Test Item Value Reference Range Interpretation [...] is LDL/HDL Ratio=L DL Calc/HDL Chol Hemoglobin [id number] 07:26:03 Test Item Value Reference Range Interpretation Comments Hemoglobin A1c (test code 4.9 % 4.0-5.8 Di abetic >=6.5 = Hemoglobin A1c) %Prediabet es 5.7-6.4 %Normal <5.7 % [facility], [id number] 14:45:00FINAL REPORT PROCEDURE: Rest/Stress MYOCARDIAL PERFUSION SPECT with treadm ill\XA9\ CPT CODE: 21949 INDICATION: Chest pain HISTORY: Cardiac risk factors: [...] perfusion defect at rest or with stress(JACC. 2012;59(9):857-62.) Signed: Albert Ruvalcabaort Verified Date/Time: 03/17/2017 14:45:11 Reading Location: [place] [id number] Reading Room HEMOGLOBIN [id number] 08:29:00 Test Item Value Reference Range Interpretation Comments HEMOGLOBIN A1C (BEAKER) (test code = 5.5 % 4.3-6.1 368) CREATINE KINASE (CK), TOTAL AND [id number] 02:45:00 Test Item Value Reference Range Interpretation Comments CREATINE KINASE TOTAL (BEAKER) 34 U/L 29-200 (test code = 380) CREATINE KINASE-MB (BEAKER) (test 0.4 ng/mL 0.0-6.6 code = 750) CREATINE KINASE-MB INDEX (BEAKER) 1.2 % (test code = 395) CK-MB Reference Range:<6.7 Normal6.7-10.0 Borderline>10.0 AbnormalTROPONIN [id number] 02:45:00 Test Item Value Reference Range Interpretation [...] and persistent tachyarrhythmia.RAD, CHEST, 1 VIEW, NON [id number] 20:40:00Reason for exam:->chest painShould this be performed at the bedside?->YesFINAL REPORT EXAMINATION: AP PORTABLE CHEST RADIOGRAPH CLINICAL INDICATION:Chest pain IMPRESSION: Compared with 04/30/2016. No evidence of focal lung consolidation, pulmonary edema or pleural effusion. The heart size is normal. Mediastinal contours are sharp. No evidence of an acute osseous abnormality or pneumothorax. Signed: Santhosh Castle MDReport Verified Date/Time: 03/16/2017 20:40:21 Reading Location: [address] Reading Room B-TYPE NATRIURETIC FACTOR (BNP)2017-03-16 20:30:00 Test Item Value Reference Range Interpretation Comments B-TYPE NATRIURETIC PEPTIDE (BEAKER) < pg/mL 0-100 (test code = 700) COMPREHENSIVE METABOLIC [id number] 20:30:00 Test Item Value Reference Range Interpretation [...] ATED GFR. CREATINE KINASE (CK), TOTAL AND [id number] 20:28:00 Test Item Value Reference Range Interpretation Comments CREATINE KINASE TOTAL (BEAKER) 50 U/L 29-200 (test code = 380) CREATINE KINASE-MB (BEAKER) (test 0.5 ng/mL 0.0-6.6 code = 750) CREATINE KINASE-MB INDEX (BEAKER) 1.0 % (test code = 395) CK-MB Reference Range:<6.7 Normal6.7-10.0 Borderline>10.0 AbnormalTROPONIN [id number] 20:28:00 Test Item Value Reference Range Interpretation [...] failure, acidosis, acute neurological disease, and persistent tachyarrhythmia.[id number] 20:21:00 Test Item Value Reference Range Interpretation Comments MAGNESIUM (BEAKER) 2.2 mg/dL 1.6-2.6 Specimen slightly (test code = 627) hemolyzed [id number] 20:21:00 Test Item Value Reference Range Interpretation Comments PHOSPHORUS (BEAKER) 3.9 mg/dL 2.3-4.7 Specimen slightly (test code = 604) hemolyzed LIPID [id number] 20:21:00 Test Item Value Reference Range Interpretation [...] Borderline 130-159 High 160-189 Very High >=190PROTHROMBIN TIME/[id number] 20:07:00 Test Item Value Reference Range Interpretation Comments PROTIME (BEAKER) (test code = 13.0 seconds 11.7-14.7 759) INR (BEAKER) (test code = 370) 1.0 <=5.9 RECOMMENDED COUMADIN/WARFARIN INR THERAPY RANGESSTANDARD DOSE: 2.0 - 3.0 Includes: PROPHYLAXIS forvenous thrombosis, systemic embolization; TREATMENT for venous thrombosis and/or pulmonary embolus.HIGH RISK: Target INR is 2.5-3.5 for patients with mechanical heart valves.[id number] 20:07:00 Test Item Value Reference Range Interpretation Comments PARTIAL THROMBOPLASTIN TIME 26.9 seconds 22.5-36.0 (BEAKER) (test code = 760) CBC W/PLT COUNT & AUTO [id number] 19:57:00 Test Item Value Reference Range Interpretation [...] % 0-1 PERCENT (BEAKER) (test code = 4889)
--- NOTE | 2021-01-18 14:36 | RAD REPORT ---
EXAM DESCRIPTION: RAD - Chest Single View - 01/18/2021 1:38 pm CLINICAL HISTORY: SOB, chest pain COMPARISON: September 19 TECHNIQUE: AP portable chest image was obtained 01/18/2021 1:38 pm . FINDINGS: No focal lung parenchymal process. Interstitial pattern is not substantially different fro m comparison when adjusting for technique differences. Heart and vasculature are normal. No measurabl e pleural effusion and no pneumothorax. No acute bony abnormality seen. No acute aortic findings susp ected. IMPRESSION: No acute cardiopulmonary process.
--- NOTE | 2021-01-18 16:13 | EDPHYS ---
Physician Documentation [facility] Name: Srini Simpson Age: 35 yrs Sex: Male : 1985 Arrival Date: 01/18/2021 Time: 12:22 Bed 10 Private MD: ED Physician Paresh Soni HPI: 01/18 16:10 This 35 yrs old Male presents to ER via Ambulatory with complaints of jmm Shortness Of Breath. 16:10 The patient has shortness of breath at rest. Onset: The symptoms/episode began/occurred jmm acutely, today. This is a 35-year-old male with history of anxiety, depression, hypertension that presents emerged part with complaints of an episode of acute onset of shortness of breath. 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 Patient states that he could not catch his breath, he felt similar to previous asthma exacerbations. Patient denies chest pain. Patient states that the shortness of breath has resolved. Historical: - Allergies: 12:38 No Known Allergies; iw - Home Meds: 12:38 metoprolol tartrate 50 mg Oral tab 1 tab 2 times per day [Active]; lisinopril 10 mg iw Oral tab 1 tab once daily [Active]; Klonopin 1 mg oral tab every 6 hours [Active]; - PMHx: 12:38 Anxiety; Depression; ETOH/drug abuse; Hypertension; Pyloric Stenosis; iw - PSHx: 12:38 None; iw - Immunization history:: Client reports receiving the 2nd dose of the Covid vaccine. - Social history:: Smoking status: Patient reports the use of cigarette tobacco products, denies chronic smoking, but will smoke occasionally. ROS: 16:10 Constitutional: Negative for fever, chills, and weight loss, Cardiovascular: Negative jmm for chest pain, palpitations, and edema. 16:10 Respiratory: Positive for shortness of breath. 16:10 All other systems are negative. Exam: 16:10 Constitutional: This is a well developed, well nourished patient who is awake, alert, jmm and in no acute distress. Head/Face: atraumatic. Eyes: EOMI, no conjunctival erythema appreciated ENT: Moist Mucus Membranes Neck: Trachea midline, Supple Chest/axilla: Normal chest wall appearance and motion. Cardiovascular: Regular rate and rhythm. No edema appreciated 16:10 Abdomen/GI: Non distended, soft Back: Normal ROM Skin: General appearance color normal MS/ Extremity: Moves all extremities, no obvious deformities appreciated, no edema noted to the lower extremities Neuro: Awake and alert, normal gait Psych: Behavior is normal, Mood is normal, Patient is cooperative and pleasant 16:10 Respiratory: the patient does not display signs of respiratory distress, Respirations: normal, Breath sounds: are clear throughout. Vital Signs: 12:36 BP 119 / 80; Pulse 95; Resp 18 S; Temp 98.4; Pulse Ox 98% on R/A; Weight 99.79 kg; iw Height 5 ft. 7 in. (170.18 cm); Pain 5/10; 16:15 BP 121 / 81; Pulse 86; Resp 16 S; Temp 97.6(TE); Pulse Ox 95% on R/A; aa5 12:36 Body Mass Index 34.46 (99.79 kg, 170.18 cm) iw MDM: 16:04 Patient medically screened. [facility] 16:11 Data reviewed: vital signs, nurses notes, lab test result(s), radiologic studies. jm Counseling: I had a detailed discussion with the patient and/or guardian regarding: the historical points, exam findings, and any diagnostic results supporting the discharge/admit diagnosis, lab results, radiology results, the need for outpatient follow up, to return to the emergency department if symptoms worsen or persist or if there are any questions or concerns that arise at home. ED course: Patient is alert nontoxic in appearance. Patient states feeling much better. Patient does request an albuterol inhaler. This may be an anxiety/asthma reaction while working on a scaffold. Patient PERC score is negative. Patient has no chest pain I do not currently suspect PE or ACS. Patient given strict return precautions. Patient understood and agrees plan of care.. 01/18 14:18 Order name: SARS-COV-2 RT PCR; Complete Time: 15:53 EDMS 01/18 12:41 Order name: CXR XRAY; Complete Time: 15:53 iw Administered Medications: No medications were administered Disposition: 17:49 Co-signature as Attending Physician, Paresh Soni MD I agree with the assessment and kdr plan of care. Disposition Summary: 01/18/21 16:13 Discharge Ordered Location: Home [facility] Condition: Stable jmm Diagnosis - Dyspnea jmm Followup: jmm - With: Private Physician - When: 2 - 3 days - Reason: Recheck today's complaints, Continuance of care, Re-evaluation by your physician Discharge Instructions: - Discharge Summary Sheet jmm - Shortness of Breath, Adult jmm Forms: - Medication Reconciliation Form jmm - Thank You Letter jmm - Work release form jmm - Antibiotic Education jmm - Prescription Opioid Use jmm Prescriptions: - albuterol sulfate 90 mcg/actuation Inhalation HFA aerosol inhaler - inhale 2 puff by INHALATION route every 4 hours; 1 Pump; Refills: 0, Product jmm Selection Permitted Signatures: Dispatcher [employer] EDMS Paresh Soni MD MD kdr Mickail, Joel, PA PA jmm Williams, Irene, RN RN iw Corrections: (The following items were deleted from the chart) 13:13 12:41 CORONAVIRUS+BRZ ordered. EDMS EDMS
--- NOTE | 2021-01-18 16:13 | ER ---
Nurse's Notes [facility] Name: Srini Simpson Age: 35 yrs Sex: Male : 1985 Arrival Date: 01/18/2021 Time: 12:22 Bed 10 Private MD: Diagnosis: Dyspnea Presentation: 01/18 12:36 Chief complaint: Patient states: hard to catch a good breath, also has a headache and iw dizziness, started this morning , no fever chills , no cough , does not feel like anxiety, took his meds. Coronavirus screen: shortness of breath. Ebola Screen: Patient negative for fever greater than or equal to 101.5 degrees Fahrenheit, and additional compatible Ebola Virus Disease symptoms Patient denies exposure to infectious person. Patient denies travel to an Ebola-affected area in the 21 days before illness onset. No symptoms or risks identified at this time. Initial Sepsis Screen: Does the patient meet any 2 criteria? No. Patient's initial sepsis screen is negative. Does the patient have a suspected source of infection? No. Patient's initial sepsis screen is negative. Risk Assessment: Do you want to hurt yourself or someone else? Patient reports no desire to harm self or others. Onset of symptoms was January 18, 2021. 12:36 Method Of Arrival: Ambulatory iw 12:36 Acuity: CHRISTINE 3 iw Historical: - Allergies: 12:38 No Known Allergies; iw - Home Meds: 12:38 metoprolol tartrate 50 mg Oral tab 1 tab 2 times per day [Active]; lisinopril 10 mg iw Oral tab 1 tab once daily [Active]; Klonopin 1 mg oral tab every 6 hours [Active]; - PMHx: 12:38 Anxiety; Depression; ETOH/drug abuse; Hypertension; Pyloric Stenosis; iw - PSHx: 12:38 None; iw - Immunization history:: Client reports receiving the 2nd dose of the Covid vaccine. - Social history:: Smoking status: Patient reports the use of cigarette tobacco products, denies chronic smoking, but will smoke occasionally. Screenin:45 Abuse screen: Denies threats or abuse. Nutritional screening: No deficits noted. aa5 Tuberculosis screening: No symptoms or risk factors identified. Fall Risk None identified. Assessment: 15:45 Reassessment: Patient is alert, oriented x 3, equal unlabored respirations, skin aa5 warm/dry/pink. 15:45 General: Appears comfortable, Behavior is calm, cooperative. Pain: Denies pain. aa5 Cardiovascular: Heart tones S1 S2 present Rhythm is regular. Respiratory: Reports shortness of breath Breath sounds are clear bilaterally. Respiratory: Airway is patent Respiratory effort is even, unlabored, Respiratory pattern is regular, symmetrical. GI: No signs and/or symptoms were reported involving the gastrointestinal system. : No signs and/or symptoms were reported regarding the genitourinary system. EENT: No signs and/or symptoms were reported regarding the EENT system. Musculoskeletal: Range of motion: intact in all extremities. 16:22 Reassessment: Patient is alert, oriented x 3, equal unlabored respirations, skin aa5 warm/dry/pink. Vital Signs: 12:36 BP 119 / 80; Pulse 95; Resp 18 S; Temp 98.4; Pulse Ox 98% on R/A; Weight 99.79 kg; iw Height 5 ft. 7 in. (170.18 cm); Pain 5/10; 16:15 BP 121 / 81; Pulse 86; Resp 16 S; Temp 97.6(TE); Pulse Ox 95% on R/A; aa5 12:36 Body Mass Index 34.46 (99.79 kg, 170.18 cm) iw ED Course: 12:22 Patient arrived in ED. ds1 12:38 Triage completed. iw 12:39 Arm band placed on. iw 13:38 CXR XRAY In Process Unspecified. EDMS 15:45 Patient has correct armband on for positive identification. Call light in reach. aa5 15:53 Timmy Nelson PA is PHCP. [facility] 15:53 Paresh Soni MD is Attending Physician. [facility] 16:15 Ynes Red, ALTON is Primary Nurse. aa5 16:22 No provider procedures requiring assistance completed. Patient did not have IV access aa5 during this emergency room visit. Administered Medications: No medications were administered Outcome: 16:13 Discharge ordered by . [facility] 16:22 Discharged to home ambulatory. aa5 16:22 Condition: stable 16:22 Discharge instructions given to patient, Instructed on discharge instructions, follow up and referral plans. medication usage, Demonstrated understanding of instructions, follow-up care, medications, Prescriptions given X 1. 16:24 Patient left the ED. ss Signatures: Dispatcher [employer] EDMS Timmy Nelson PA PA jmm Sanford, Demi ds1 Snow Rincon, RN RN iw Ynes Red RN RN aa5 Justyna Ortega RN RN ss
[2021-01-18 16:30] VITALS: BP 121/81; TEMP 97.6; O2SAT 95
== END 2021-01-18 16:24 | disposition home or self-care (01) ==
LOC: ER 12:16
DX: R06.00 Dyspnea, unspecified (principal); F17.210 Nicotine dependence, cigarettes, uncomplicated; F41.8 Other specified anxiety disorders; I10 Essential (primary) hypertension; Z20.822 Contact with and (suspected) exposure to COVID-19
CPT/HCPCS: 71045; 99283; U0003

== ENCOUNTER 2021-04-16 14:42 | Emergency (ER) | payer SELFPAY ==
--- OUTSIDE RECORDS SUMMARY | 2021-04-16 14:53 | XMS REPORT | Continuity of Care Document ---
:1985 Author Organization [facility] t Address [address] [place] [address] Care Team Providers Name Role Phone Marly BELTRÁN, Maame Primary Care Physician Unavailable Deion SEYMOUR Attending Clinician Unavailable Deion Seymour DO Attending Clinician Singer LAW Attending Clinician Shabbir BELTRÁN Attending Clinician Jeff Attending Clinician Denis LAW Attending Clinician Margarita Marroquin Attending Clinician Ashlie BELTRÁN M. Attending Clinician Martha BELTRÁN C Attending Clinician Fatimah BELTRÁN S Attending Clinician Ray JENKINS Attending Clinician Unavailable Doctor Unassigned, Name Attending Clinician Unavailable Clinic, Neurology Continuity Attending Clinician Unavailabl e Green STUDIO DESIGNER Attending Clinician Unknown Attending Clinician Unavailable Kem Herrera Attending Clinician Jeremiah STUDIO DESIGNER Attending Clinician Joseph GARCIA Attending Clinician Unavailable Deion SEYMOUR Admitting Clinician Unavailable Denis LAW Admitting Clinician ASHLIE Admitting Clinician Unavailable Joseph GARCIA Admitting Clinician Unavailable Payers Payer Name Policy Type Policy Number Effective Date Expiration Date [employer] [facility] [id number] LONG-TERM 00:00:00 Problems Condition Condition Condition Status Onset Resolution Last Treating Co mments Source Name Details Category Date Date Treatment Clinician Date Withdrawal Withdrawal Disease Active U damon symptoms, symptoms, 6-16 ity of alcohol, alcohol, 00:00: [place] uncomplica uncomplica 00 Me dical luis luis Branch Obesity Obesity Disease Active Univers (BMI (BMI 6-16 ity of 30-39.9) 30-39.9) 00:00: [place] [facility] Alcohol Alcohol Disease Active Methodi dependence dependence [facility] with with 00:00: [facility]osp[facility] uncomplica uncomplica 00 l luis luis withdrawal withdrawal Suicide Suicide Disease Active [facility]i attempt by attempt by 20 st alcohol alcohol 00:00: Hospita poisoning poisoning 00 l 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 pine use 00:00: Hospit a disorder disorder 00 l ЕЛЕНА ЕЛЕНА Disease Active Methodi (generaliz (generaliz 20 st ed anxiety ed anxiety 00:00: Ho spita disorder) disorder) 00 l Essential Essential Disease Active Uni vers hypertensi hypertensi 7-02 it y of on on 00:00: [place] [facility] Family Family Disease Active 2019- Univers history of history of 7- it y of early CAD early CAD 00:00: [facility] Medical Branch Family Family Disease Active 2019- Univers history of history of 7-02 it y of early CAD early CAD 00:00: [facility] Branch Chest pain Chest pain Disease Active 2019 U damon 7- ity of 00:00: [place] [address] Medical Branch Chest pain Chest pain Disease Active 2016-[address] [facility] Chest Chest Disease Active 2015-[address] [facility] pain, pain, 2-21 [facility] unspecifie unspecifie 00:00: Me dical d type d type 00 Center Allergies, Adverse Reactions, Alerts Allergy Allergy Status Severity Reaction(s) Onset Inactive Treating Comm ents Source Name Type Date Date Clinician NO KNOWN Drug Active Univers ALLERGIE Class ity of S [facility] Family History Family Member Diagnosis Comments Start Date Stop Date Source Maternal uncle Depression [facility] M[facility] Maternal uncle Alcohol abuse [facility] Natural mother Alcohol abuse [facility] Paternal grandfather Heart [facility] Natural father [facility] Maternal aunt [facility] Social History Social Habit Start Date Stop Date Quantity Comments Source History of tobacco 1995-01-27 Cigarette smoker [facility] use 00:00:00 (finding) Hospital History SDOH University o f Alcohol [facility] History [facility] University o f Alcohol Std Drinks [facility] History [facility] University o f Alcohol Comment [facility] ical Branch Exposure to Not sure University of SARS-CoV-2 (event) [facility] Alcohol intake 2020-10-24 2020-10-24 Current drinker Unive rsity of 00:00:00 00:00:00 of alcohol [facility] (finding) Branch Cigarette 2020-01-28 2020-01-28 [facility] pack-years 00:00:00 00:00:00 Hospital History SDOH 2018-11-09 2018-11-09 5 University o f Alcohol Binge 00:00:00 00:00:00 [facility] al Branch Cigarettes smoked 2018-11-08 2018-11-08 Univers ity of current (pack per 00:00:00 00:00:00 [facility] ed) - Reported Branch Tobacco use and 2018-11-08 2018-11-08 Current user Univers ity of exposure 00:00:00 00:00:00 [facility] Sex [birth year] Universit y of 00:00:00 00:00:00 [facility] Smoking Status Start Date Stop Date Source Current every day smoker 2020-01-28 00:00:00 [facility] Medications Ordered Filled Start Stop Current Ordering Indication Dosage Frequency Signature Comments Components Source Medication Medication Date Date Medication? Clinician (SIG) Name Name FENTanyl PF 2020-05- No 50ug 50 mcg, Un jaqueline (SUBLIMAZE 05-31 Intramuscu it y of (PF)) 15:45: 14:44 lar, ONCE, [place] injection 00 :00 1 dose, On Medi kofi 50 mcg Sun Branch 03/31/21 at 0945, Routine moxifloxaci 2020-05- Yes [id number] 400mg Take 1 Univers n 400 mg 0-11 22 tablet by ity o f tablet 00:00: 04:59 mouth [place] 00 :00 daily for Medical 10 days. Branch chlorphenir Yes [id number] 4mg Take 1 Univers amine 4 mg 9-16 tablet by ity of tablet 00:00: mouth [place] 00 every 6 Medical (six) Branch hours as needed for Allergies or Runny nose. calcium/mag Yes [id number] 1{each} Take 1 Univers nesium/zinc 9-16 Each by ity o f (CALCIUM-MA 00:00: mouth [place] GNESUIUM-ZI 00 daily. Medica l NC) Branch 333-133-5 mg Tab benzonatate Yes [id number] 100mg Take 1 Univers 100 mg 9-16 capsule by ity of capsule 00:00: mouth 3 [place] 00 (three) Medical times Branch daily as needed for Cough. ondansetron Yes [id number] 4mg Take 1 Univers 4 mg 9-16 tablet by ity of disintegrat 00:00: mouth [place] ing tablet 00 every 8 Medica l (eight) Branch hours as needed for Nausea and Vomiting (N/V). azithromyci Yes [id number] 250mg Take 1 Univers n 9-16 tablet by ity of (ZITHROMAX 00:00: mouth [place] Z-REFUGIO) 250 00 SEE-INSTRU Med ical mg tablet CTIONS. Branch Take 500 mg day 1, then 250 mg days 2 to 5. chlorphenir Yes [id number] 4mg Take 1 Univers amine 4 mg 9-16 tablet by ity of tablet 00:00: mouth [place] 00 every 6 Medical (six) Branch hours as needed for Allergies or Runny nose. calcium/mag 2021-0 Yes [id number] 1{each} Take 1 Univers nesium/zinc 9-16 Each by ity o f (CALCIUM-MA 00:00: mouth [place] GNESUIUM-ZI 00 daily. Medica l NC) Branch 333-133-5 mg Tab benzonatate 2020-0 Yes [id number] 100mg Take 1 Univers 100 mg 9-16 capsule by ity of capsule 00:00: mouth 3 [place] 00 (three) Medical times Branch daily as needed for Cough. ondansetron 2020-0 Yes [id number] 4mg Take 1 Univers 4 mg 9-16 tablet by ity of disintegrat 00:00: mouth [place] ing tablet 00 every 8 Medica l (eight) Branch hours as needed for Nausea and Vomiting (N/V). azithromyci 0 Yes [id number] 250mg Take 1 Univers n 9-16 tablet by ity of (ZITHROMAX 00:00: mouth [place] Z-REFUGIO) 250 00 SEE-INSTRU Med ical mg tablet CTIONS. Branch Take 500 mg day 1, then 250 mg days 2 to 5. chlorphenir 2020-0 Yes [id number] 4mg Take 1 Univers amine 4 mg 9-16 tablet by ity of tablet 00:00: mouth [place] 00 every 6 Medical (six) Branch hours as needed for Allergies or Runny nose. calcium/mag 2020- Yes [id number] 1{each} Take 1 Univers nesium/zinc 9-16 Each by ity o f (CALCIUM-MA 00:00: mouth [place] GNESUIUM-ZI 00 daily. Medica l NC) Branch 333-133-5 mg Tab benzonatate 2020-0 Yes [id number] 100mg Take 1 Univers 100 mg 9-16 capsule by ity of capsule 00:00: mouth 3 [place] 00 (three) Medical times Branch daily as needed for Cough. ondansetron 2020-0 Yes [id number] 4mg Take 1 Univers 4 mg 9-16 tablet by ity of disintegrat 00:00: mouth [place] ing tablet 00 every 8 Medica l (eight) Branch hours as needed for Nausea and Vomiting (N/V). chlorphenir 2020-0 Yes [id number] 4mg Take 1 Univers amine 4 mg 9-16 tablet by ity of tablet 00:00: mouth [place] 00 every 6 Medical (six) Branch hours as needed for Allergies or Runny nose. calcium/mag Yes [id number] 1{each} Take 1 Univers nesium/zinc 9-16 Each by ity o f (CALCIUM-MA 00:00: mouth [place] GNESUIUM-ZI 00 daily. Medica l NC) Branch 333-133-5 mg Tab benzonatate Yes [id number] 100mg Take 1 Univers 100 mg 9-16 capsule by ity of capsule 00:00: mouth 3 [place] 00 (three) Medical times Branch daily as needed for Cough. ondansetron Yes [id number] 4mg Take 1 Univers 4 mg 9-16 tablet by ity of disintegrat 00:00: mouth [place] ing tablet 00 every 8 Medica l (eight) Branch hours as needed for Nausea and Vomiting (N/V). vitamin 2020- Yes [id number] 1{tbl} Take 1 Univers D3-folic 9-16 10-17 tablet by ity o f acid 125 00:00: 04:59 mouth [place] mcg (5,000 00 :00 daily for Medi kofi unit)-1 mg 30 days. Branc h Tab vitamin 2020- Yes [id number] 1{tbl} Take 1 Univers D3-folic 9-16 10-17 tablet by ity o f acid 125 00:00: 04:59 mouth [place] mcg (5,000 00 :00 daily for Medi kofi unit)-1 mg 30 days. Branc h Tab vitamin 2020- Yes [id number] 1{tbl} Take 1 Univers D3-folic 9-16 10-17 tablet by ity o f acid 125 00:00: 04:59 mouth [place] mcg (5,000 00 :00 daily for Medi kofi unit)-1 mg 30 days. Branc h Tab azithromyci 2020- No [id number] 250mg Take 1 Univers n 9-16 10-11 tablet by ity of (ZITHROMAX 00:00: 00:00 mouth [place] Z-REFUGIO) 250 00 :00 SEE-INSTRU Med ical mg tablet CTIONS. Branch Take 500 mg day 1, then 250 mg days 2 to 5. NaCl 0.9% 2020- No 500mL at 999 Univ ers (NS) bolus 7-30 07-30 mL/hr, 500 it y of infusion 14:45: 14:15 mL, IV [place] 500 mL 00 :00 Piggyback, Medical ONCE, 1 Branch dose, Thu12/07/20 at 0945, STAT metoprolol 2020- No 50mg Take 50 mg Univers succinate 10-2820 by mouth 2 ity of XL (TOPROL 14:52: 00:00 (two) [place] XL) 25 mg 24 :00 times Medical 24 hr daily. [place] tablet diazePAM 2020- No 10mg Take 10 mg Un jaqueline (VALIUM) 10 10-2820 by mouth 2 i ty of mg tablet 14:52: 00:00 (two) [place] 24 :00 times Medical daily. [place] cyanocobala Yes 1000ug 1,000 mcg, Univers min 18 Subcutaneo ity of (VITAMIN 22:00: us, Q24H, [place] B12) 00 First dose Medical injection on Thu [place] 1,000 mcg 10/26/20 at 1700, Until Discontinu ed, Routine chlordiazeP Yes 25mg 25 mg, Univ ers OXIDE 18 Oral, TID, ity of (LIBRIUM) 21:00: First dose [place] capsule 25 00 on Thu Medical mg 10/26/20 at Branch 1600, Until Discontinu ed, Routine cholecalcif Yes 2000U 2,000 Univ ers becka 6-18 Units, ity of (vitamin 21:00: Oral, [place] D3) tablet 00 DAILY, Medical 2,000 Units First dose Br anch on Thu10/26/20 at 1600, Until Discontinu ed, Routine melatonin Yes 3mg 3 mg, Univers (MELATIN) 18 Oral, QHS, ity of tablet 3 mg 02:00: First dose [place] 00 on [place] Medical 10/25/20 at Branch 2100, Until Discontinu ed, Routine magnesium 2020- No 2g 2 g, IV Univ ers sulfate in 10-2618 Piggyback, it y of water 2 00:45: 00:42 ONCE, 1 [place] gram/50 mL 00 :00 dose, [place] Medi kofi (4 %) 10/25/20 at [place] infusion 2 1945, g Routine potassium 2020- No 10meq 10 mEq, IV Univers chloride in 10-26 Piggyback, i ty of water 10 00:00: 05:40 Q1H, 5 [place] mEq/100 mL 00 :00 doses, Medical RTU 10 mEq First dose Bra nch on [facility] 10/25/20 at 1900, Last dose on [facility] 10/25/20 at 2300, 100 mL diazePAM 2020- No 10mg 10 mg, Univer s (VALIUM) 10-25 Intravenou ity of injection 22:45: 21:59 s, ONCE, 1 [place] 10 mg 00 :00 dose, [facility] Medical 10/25/20 at Branch 1745, TITA carvediloL Yes 12.5mg 12.5 mg, U nivers (COREG) 10-25 Oral, BID ity of tablet 12.5 22:00: MEALS, [place] mg 00 First dose Medical on [facility] Branch 10/25/20 at 1700, Until Discontinu ed, Routine LORazepam 2020- No 2mg 2 mg, Slow U nivers (ATIVAN) 10-25 IV Push, ity of injection 2 18:00: 17:21 ONCE, 1 [place] mg 00 :00 dose, [facility] Medical 10/25/20 at Branch 1300, Routine HYDROcodone 0 Yes 1{tbl} 1 tablet, Univers -acetaminop 10-25 Oral, ity of hen (NORCO 16:49: Q6HPRN, [place] 5) 5-325 mg 43 Starting [facility] kofi tablet 1 [facility] tablet 10/25/20 at 1149, Until Discontinu ed, Routine, Pain (scale 7-10) hydralAZINE Yes 10mg 10 mg, Univ ers (APRESOLINE 10-25 Slow IV ity o f ) injection 16:48: Push, [place] 10 mg 34 Q6HPRN, Medical Starting Branch [facility] 10/25/20 at 1148, Until Discontinu ed, Routine, DBP=>100; SBP=>160, For SBP > 160
Ind ication: Hypertensi ve Emergency labetaloL Yes 20mg 20 mg, Univer s (NORMODYNE) 10-25 Slow IV ity o f injection 14:58: Push, [place] 20 mg 25 Q6HPRN, Medical Starting Branch [facility] 10/25/20 at 0958, Until Discontinu ed, TITA, For SBP > 170 or DBP > 105 diazePAM 2020-0 2020- No 10mg 10 mg, Univer s (VALIUM) 10-25 Intravenou ity of injection 14:30: 13:45 s, ONCE, 1 [place] 10 mg 00 :00 dose, [facility] 10/25/20 at Branch 0930, STAT escitalopra Yes 10mg 10 mg, Univ ers m oxalate 10-25 Oral, ity of (LEXAPRO) 14:00: DAILY, [place] tablet 10 00 First dose Medi kofi mg on [facility] Branch 10/25/20 at 0900, Until Discontinu ed, Routine pantoprazol Yes 40mg 40 mg, Univ ers e 10-25 Oral, ity of (PROTONIX) 14:00: DAILY, [place] EC tablet 00 First dose Medi kofi 40 mg on [facility] Branch 10/25/20 at 0900, Until Discontinu ed, Routine acetaminoph Yes 650mg 650 mg, Un jaqueline en 10-25 Oral, ity of (TYLENOL) 13:42: Q6HPRN, [place] tablet 650 14 Starting Medic al mg [facility] Branch 10/25/20 at 0842, Until Discontinu ed, Routine, Pain (scale 1-3), Temp > 38.5 C magnesium 2020- No 400mg 400 mg, Uni vers oxide 10-25 Oral, BID, ity of (MAG-OX 13:30: 12:59 8 doses, [place] 400) tablet 00 :00 First dose Me dical 400 mg on [facility] Branch 10/25/20 at 0830, Last dose on [place] 10/28/20 at 2000, Routine LORazepam 2020-0 2020- No 1mg 1 mg, Slow U nivers (ATIVAN) 10-25 IV Push, ity of injection 1 05:30: 04:30 ONCE, 1 [place] mg 00 :00 dose, [facility] 10/25/20 at Branch 0030, Routine HYDROcodone 2020-0 2020- No 1{tbl} 1 tablet, Univers -acetaminop 10-24 Oral, ity of hen (NORCO 22:45: 22:14 ONCE, 1 [place] 5) 5-325 mg 00 :00 dose, Thu Med ical tablet 1 10/24/20 at Bran h tablet 1745, Routine enoxaparin Yes 40mg 40 mg, Unive rs (LOVENOX) 10-24 Subcutaneo ity of injection 22:00: us, DAILY, [place] 40 mg 00 First dose Medical on Thu Branch 10/24/20 at 1700, Until Discontinu ed, Routine sulfur 2020- No [id number] 5mL 5 mL, Unive rs hexafluorid 10-24 Intravenou i ty of e microsphr 21:15: 21:15 s, ONCE, 1 [place] (LUMASON) 00 :00 dose, Thu Medic al injection 5 10/24/20 at Br anch mL 1615, Routine
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 member approving Restricted medication : SONIA GOFF proMETHazin Yes 25mg 25 mg, Univ ers e 10-24 Intramuscu ity of (PHENERGAN) 19:12: lar, [place] injection 44 Q4HPRN, Medical 25 mg Starting Branch Thu10/24/20 at 1412, Until Discontinu ed, Routine, Nausea and Vomiting (N/V) diazePAM 2020- No 10mg 10 mg, Univer s (VALIUM) 10-24 Intravenou ity of injection 18:15: 18:13 s, ONCE, 1 [place] 10 mg 00 :00 dose, Thu10/24/20 at Branch 1315, STAT diazePAM 2020- No 10mg 10 mg, Univer s (VALIUM) 10-24 Intravenou ity of injection 17:45: 17:10 s, ONCE, 1 [place] 10 mg 00 :00 dose, Thu10/24/20 at Branch 1245, TITA metoprolol 2020- No 50mg 50 mg, Univ ers tartrate 10-24 Oral, BID, ity of (LOPRESSOR) 17:15: 16:49 First dose [place] tablet 50 00 :21 on Thu Medical mg 10/24/20 at Branch 1215, Until Discontinu ed, Routine ondansetron Yes 4mg 4 mg, Unive rs (ZOFRAN-ODT 10-24 Oral, ity of ) 17:02: Q8HPRN, [place] disintegrat 20 Starting Medi kofi ing tablet Thu Branch 4 mg 10/24/20 at 1202, Until Discontinu ed, Routine, Nausea and Vomiting (N/V) LORazepam 2020- No 2mg 2 mg, Slow U nivers (ATIVAN) 10-24 IV Push, ity of injection 2 17:00: 16:01 ONCE, 1 [place] mg 00 :00 dose, Thu Medical 10/24/20 at Branch 1200, STAT labetaloL 2020- No 20mg 20 mg, Unive rs (NORMODYNE) 10-24 Slow IV ity of injection 17:00: 16:01 Push, [place] 20 mg 00 :00 ONCE, 1 Medical dose, [facility] 10/24/20 at 1200, TITA lactated 2020- No 30mL/kg at 999 Uni vers ringers IV 10-24 mL/hr, ity of infusion 16:45: 18:17 2,925 mL [place] 2,925 mL 00 :00 (30 mL/kg Medica l ?97.5 kg), [place] IV Infusion, ONCE, 1 dose, [facility] 10/24/20 at 1145, STAT glucagon Yes 1mg 1 mg, Univers (GLUCAGEN 10-24 Intramuscu ity of DIAGNOSTIC 16:43: lar, PRN, [place] KIT) 42 Starting Medical injection 1 Wed Branch mg 10/24/20 at 1143, Until Discontinu ed, TITA, Blood Glucose < or = 70 mg/dL and patient is unable to swallow or has mental changes. dextrose 50 Yes 25mL 25 mL, Univ ers % in water 10-24 Slow IV ity of (D50W) 16:43: Push, PRN, [place] injection 42 Starting Medica l 25 mL [facility] Branch 10/24/20 at 1143, Until Discontinu ed, TITA, Blood Glucose < or = 70 mg/dL and patient is unable to swallow or has mental status changes. LORazepam 0 2020- No 2mg 2 mg, Slow U nivers (ATIVAN) 10-24 IV Push, ity of injection 2 16:00: 15:04 ONCE, 1 [place] mg 00 :00 dose, Thu Medical 10/24/20 at Branch 1100, Routine diazePAM 2020-0 2020- No 10mg 10 mg, Univer s (VALIUM) 10-24 Intravenou ity of injection 16:00: 15:21 s, ONCE, 1 [place] 10 mg 00 :00 dose, Thu Medical 10/24/20 at Branch 1100, Routine LORazepam 2020- No 2mg 2 mg, Slow U nivers (ATIVAN) 10-24 IV Push, ity of injection 2 15:45: 14:34 ONCE, 1 [place] mg 00 :00 dose, Thu Medical 10/24/20 at Branch 1045, Routine LORazepam 2020- No 1mg 1 mg, Slow U nivers (ATIVAN) 10-24 IV Push, ity of injection 1 15:15: 14:11 ONCE, 1 [place] mg 00 :00 dose, Thu Medical 10/24/20 at Branch 1015, STAT ondansetron Yes 4mg 4 mg, Slow Univers (ZOFRAN 10-24 IV Push, ity of (PF)) 14:58: Q6HPRN, [place] injection 4 39 Starting Medi kofi mg Thu [place] 10/24/20 at 0958, Until Discontinu ed, Routine, Nausea and Vomiting (N/V) ondansetron 2020- No 4mg 4 mg, Slow Univers (ZOFRAN 10-24 IV Push, ity of (PF)) 14:15: 13:16 ONCE, 1 [place] injection 4 00 :00 dose, Thu Med ical mg 10/24/20 at Branch 0915, TITA foLIC acid Yes 1mg 1 mg, Univer s (FOLATE) 16 Oral, ity of tablet 1 mg 14:00: DAILY, [place] 00 First dose Medical on Thu10/24/20 at 0900, Until Discontinu ed, Routine thiamine Yes 100mg 100 mg, Unive rs (VITAMIN 6-16 Oral, ity of B1) tablet 14:00: DAILY, [place] 100 mg 00 First dose Medical on Thu Branch 10/24/20 at 0900, Until Discontinu ed, Routine thiamine 2020- No IV Univers (VITAMIN 10-24 Infusion, ity o f B1) 100 mg, 14:00: 14:59 at 150 [place] as foLIC acid 00 :34 mL/hr, Medical (FOLATE) 1 DAILY, Branch mg in D5W First dose 0.45% NaCl on Thu (1/2NS) IV 10/24/20 at Solution 0900, Until Discontinu ed, 1,000 mL LORazepam 2020- No 1mg 1 mg, Slow U nivers (ATIVAN) 10-24 IV Push, ity of injection 1 13:45: 12:37 ONCE, 1 [place] mg 00 :00 dose, Thu Medical 10/24/20 at Branch 0845, STAT ondansetron 2020- No 4mg 4 mg, Slow Univers (ZOFRAN 10-24 IV Push, ity of (PF)) 13:45: 12:42 ONCE, 1 [place] injection 4 00 :00 dose, Thu Med ical mg 10/24/20 at Branch 0845, TITA labetaloL 2020- No 10mg 10 mg, Unive rs (NORMODYNE) 10-24 Slow IV ity of injection 13:45: 12:37 Push, [place] 10 mg 00 :00 ONCE, 1 Medical dose, [facility] Branch 10/24/20 at 0845, TITA oxazepam 2020- No 15mg 15 mg, Univer s (SERAX) 10-24 Oral, ity of capsule 15 13:40: 20:57 Q4HPRN, [place] mg 38 :53 Starting Medical [facility] Branch 10/24/20 at 0840, Until Thu10/26/20 at 1557, Routine, Only while awake for DBP equal to or greater than 100, HR equal to or greater than 100. iopamidol 2020- No [id number] 100mL 100 mL, Univers (ISOVUE 10-24 Intravenou ity o f 370-500 mL) 13:00: 11:40 s, ONCE, 1 [place] injection 00 :00 dose, Wed Medic al 100 mL 10/24/20 at Branch 0800, Routine LORazepam 2020-2020- No 1mg 1 mg, Slow U nivers (ATIVAN) 10-2416 IV Push, ity of injection 1 13:00: 11:54 ONCE, 1 [place] mg 00 :00 dose, [facility] Medical 10/24/20 at Branch 0800, STAT NaCl 0.9% 2020- No 1000mL at 999 Uni vers (NS) bolus 10-24 mL/hr, ity of infusion 11:30: 11:27 1,000 mL, [place] 1,000 mL 00 :00 IV Medical Infusion, [place] ONCE, 1 dose, [facility] 10/24/20 at 0630, STAT metoprolol 2020-2020- No 5mg 5 mg, Slow Univers (LOPRESSOR) 07-29 IV Push, ity of injection 5 00:30: 23:26 ONCE, 1 [place] mg 00 :00 dose, [facility] Medical 07/28/20 at Branch 1930, TITA NaCl 0.9% 2020- No 1000mL at 999 Uni vers (NS) bolus 07-28-21 mL/hr, ity of infusion 22:15: 00:55 1,000 mL, [place] 1,000 mL 00 :00 IV Medical Infusion, [place] ONCE, 1 dose, [facility] 07/28/20 at 1715, STAT LORazepam 2020-0 2020- No 1mg 1 mg, Slow U nivers (ATIVAN) 07-28-20 IV Push, ity of injection 1 22:15: 21:18 ONCE, 1 [place] mg 00 :00 dose, [facility] Medical 07/28/20 at Branch 1715, STAT LORazepam 2020-0 2020- No 1mg 1 mg, Slow U nivers (ATIVAN) 07-28-20 IV Push, ity of injection 1 19:31: 19:31 ONCE, 1 [place] mg 00 :00 dose, [facility] Medical 07/28/20 at Branch 1445, STAT LORazepam 2020-0 2020- No 1mg 1 mg, Slow U nivers (ATIVAN) 07-28-20 IV Push, ity of injection 1 19:30: 18:28 ONCE, 1 [place] mg 00 :00 dose, Sat Medical 07/28/20 at Branch 1430, STAT metoprolol 2020- No 50mg 50 mg, Univ ers tartrate 2-20 02-20 Oral, ity of (LOPRESSOR) 13:00: 12:02 ONCE, 1 [place] tablet 50 00 :00 dose, Sat Medic al mg 06/30/20 at Branch 0700, Routine NaCl 0.9% 2020- No 1000mL at 999 Uni vers (NS) bolus 2-20 02-20 mL/hr, ity of infusion 12:00: 16:11 1,000 mL, [place] 1,000 mL 00 :00 IV Medical Infusion, Branch ONCE, 1 dose, 06/30/20 at 0600, TITA metoprolol Yes [id number] 50mg Take 2 U nivers tartrate 25 2-20 tablets by it y of mg tablet 00:00: mouth [place] ([facility]) Medical times Branch daily. metoprolol Yes [id number] 50mg Take 2 U nivers tartrate 25 2-20 tablets by it y of mg tablet 00:00: mouth [place] ([facility]) Medical times Branch daily. metoprolol 2020-0 Yes [id number] 50mg Take 2 U nivers tartrate 25 2-20 tablets by it y of mg tablet 00:00: mouth [place] (two) Medical times Branch daily. metoprolol 2020-0 Yes [id number] 50mg Take 2 U nivers tartrate 25 2-20 tablets by it y of mg tablet 00:00: mouth [place] (two) Medical times Branch daily. metoprolol 2020-0 Yes [id number] 50mg Take 2 U nivers tartrate 25 2-20 tablets by it y of mg tablet 00:00: mouth [place] (two) Medical times Branch daily. metoprolol 2020-0 Yes [id number] 50mg Take 2 U nivers tartrate 25 2-20 tablets by it y of mg tablet 00:00: mouth [place] (two) Medical times Branch daily. metoprolol 2020-0 Yes [id number] 50mg Take 2 U nivers tartrate 25 2-20 tablets by it y of mg tablet 00:00: mouth (two) Medical times Branch daily. metoprolol Yes [id number] 50mg Take 2 U nivers tartrate 25 2-20 tablets by it y of mg tablet 00:00: mouth (two) Medical times Branch daily. metoprolol Yes [id number] 50mg Take 2 U nivers tartrate 25 2-20 tablets by it y of mg tablet 00:00: mouth (two) Medical times Branch daily. ibuprofen 2020- No 600mg 600 mg, Uni vers (IBU) -23 06- Oral, ity of tablet 600 21:15: 20:35 ONCE, 1 [place] mg 00 :00 dose, Sat Medical 06/23/20 at Branch 1515, TITA ibuprofen Yes [id number] 600mg Take 1 Univers 600 mg 2-13 [id number] tablet by ity of tablet 00:00: mouth 00 every 6 Medical (six) Branch hours as needed for Pain (scale 4-6). ibuprofen Yes [id number] 600mg Take 1 Univers 600 mg 2-13 [id number] tablet by ity of tablet 00:00: mouth [place] 00 every 6 Medical (six) Branch hours as needed for Pain (scale 4-6). ibuprofen Yes [id number] 600mg Take 1 Univers 600 mg 2-13 [id number] tablet by ity of tablet 00:00: mouth [place] 00 every 6 Medical (six) Branch hours as needed for Pain (scale 4-6). ibuprofen 2020- No [id number] 600mg Take 1 [facility] 600 mg 2-13 -20 [id number] tablet by ity o f tablet 00:00: 00:00 mouth [place] 00 :00 every 6 Medical (six) Branch hours as needed for Pain (scale 4-6). venlafaxine 2020- No [id number] 225mg QD Take 3 M ethodi XR 924 10-[address] (EFFEXOR-XR 00:00: 04:59 (225 mg [facility] ) 75 MG 24 00 :00 total) by l hr capsule mouth every morning for 7 days .major depressive disorder. [place] 2019- No [id number] 2mg Q2H Chew 1 Metho di polacrilex 01-31 each ([address] (NICORETTE) 00:00: 04:59 total) Hos [facility] 2 mg gum 00 :00 every 2 l (two) hours as needed for smoking cessation for up to 30 days .stop smoking. metoprolol 2019- No [id number] 50mg Q.5D Take 1 Met [facility]odi tartrate 01-31 tablet (50 st (LOPRESSOR) 00:00: 04:59 mg total) [facility] 50 mg 00 :00 by mouth l tablet BID at 0700, 1900 for 30 days .high blood pressure. busPIRone 2019- 2020- No [id number] 7.5mg Q.5D Take 1 Met hodi (BUSPAR) 01-[address] 7.5 MG 00:00: 04:59 (7.5 mg [facility]osp[facility] tablet 00 :00 total) by l mouth 2 (two) times a day for 7 days .repeated episodes of anxiety. sodium 2019-0 Yes 5mL 5 mL, [facility] chloride 7 Intravenou ity o f (NS) 04:17: s, PRN, [place] injection 5 55 Starting Medi kofi mL 11/09/19 Branch at 2317, Until Discontinu ed, Routine, IV line flushing dicyclomine 2019- No 20mg 20 mg, Uni vers (BENTYL) 09-28-21 Oral, ity of capsule 20 16:00: 15:16 ONCE, 1 [place] mg 00 :00 dose, [facility] 09/29/19 at Branch 1100, Routine ondansetron 2019- No 4mg 4 mg, Slow [facility] (ZOFRAN 09-2821 IV Push, ity of (PF)) 16:00: 15:23 ONCE, 1 [place] injection 4 00 :00 dose, [facility] mg 09/29/19 at Branch 1100, TITA NaCl 0.9% 2019- No 1000mL at 999 Uni vers (NS) bolus 09-28 05-21 mL/hr, ity of infusion 16:00: 16:30 1,000 mL, [place] 1,000 mL 00 :00 IV Medical Piggyback, Branch ONCE, 1 dose, [facility] 09/29/19 at 1100, STAT loperamide 2020-0 Yes 2mg 2 mg, Univer s (IMODIUM 5-21 Oral, ity of A-D) 14:53: Q4HPRN, [place] capsule 2 46 Starting Medica l mg [facility] 09/29/19 at 0953, Until Discontinu ed, Routine, Diarrhea ondansetron 2020-0 Yes [id number] 4mg Take 1 U nivers 4 mg 5-21 tablet by ity of disintegrat 00:00: mouth [place] ing tablet 00 every 8 Medica l (eight) Branch hours as needed for Nausea and Vomiting (N/V). loperamide 2020-0 Yes [id number] 2mg Take 1 Un jaqueline 2 mg 5-21 capsule by ity of capsule 00:00: mouth [place] 00 every 4 Medical (four) Branch hours as needed for Diarrhea. Not to exceed 16mg daily. ondansetron 2020-0 Yes [id number] 4mg Take 1 U nivers 4 mg 5-21 tablet by ity of disintegrat 00:00: mouth [place] ing tablet 00 every 8 Medica l (eight) Branch hours as needed for Nausea and Vomiting (N/V). loperamide 2020-0 Yes [id number] 2mg Take 1 Un jaqueline 2 mg 5-21 capsule by ity of capsule 00:00: mouth [place] 00 every 4 Medical (four) Branch hours as needed for Diarrhea. Not to exceed 16mg daily. ondansetron 2020-0 Yes [id number] 4mg Take 1 U nivers 4 mg 5-21 tablet by ity of disintegrat 00:00: mouth [place] ing tablet 00 every 8 Medica l (eight) Branch hours as needed for Nausea and Vomiting (N/V). loperamide 2020-0 Yes [id number] 2mg Take 1 Un jaqueline 2 mg 5-21 capsule by ity of capsule 00:00: mouth [place] 00 every 4 Medical (four) Branch hours as needed for Diarrhea. Not to exceed 16mg daily. ondansetron 2020-0 Yes [id number] 4mg Take 1 U nivers 4 mg 5-21 tablet by ity of disintegrat 00:00: mouth [place] ing tablet 00 every 8 Medica l (eight) Branch hours as needed for Nausea and Vomiting (N/V). loperamide 2020-0 Yes [id number] 2mg Take 1 Un jaqueline 2 mg 5-21 capsule by ity of capsule 00:00: mouth [place] 00 every 4 Medical (four) Branch hours as needed for Diarrhea. Not to exceed 16mg daily. ondansetron 2020-0 Yes [id number] 4mg Take 1 U nivers 4 mg 5-21 tablet by ity of disintegrat 00:00: mouth [place] ing tablet 00 every 8 Medica l (eight) Branch hours as needed for Nausea and Vomiting (N/V). loperamide 2020-0 Yes [id number] 2mg Take 1 Un jaqueline 2 mg 5-21 capsule by ity of capsule 00:00: mouth [place] 00 every 4 Medical (four) Branch hours as needed for Diarrhea. Not to exceed 16mg daily. ondansetron 2020-0 Yes [id number] 4mg Take 1 U nivers 4 mg 5-21 tablet by ity of disintegrat 00:00: mouth [place] ing tablet 00 every 8 Medica l (eight) Branch hours as needed for Nausea and Vomiting (N/V). ondansetron 2020-0 Yes [id number] 4mg Take 1 U nivers 4 mg 5-21 tablet by ity of disintegrat 00:00: mouth [place] ing tablet 00 every 8 Medica l (eight) Branch hours as needed for Nausea and Vomiting (N/V). ondansetron 2020-0 Yes [id number] 4mg Take 1 U nivers 4 mg 5-21 tablet by ity of disintegrat 00:00: mouth [place] ing tablet 00 every 8 Medica l (eight) Branch hours as needed for Nausea and Vomiting (N/V). ondansetron 2019-2020- No [id number] 4mg Take 1 [facility] 4 mg 5-21 09-16 tablet by ity of disintegrat 00:00: 00:00 mouth [place] tablet 00 :00 every 8 Medica l (eight) Branch hours as needed for Nausea and Vomiting (N/V). ondansetron 2020-0 2020- No [id number] 4mg Take 1 [facility] 4 mg 5-21 09-16 tablet by ity of disintegrat 00:00: 00:00 mouth [place] ing tablet 00 :00 every 8 Medica l (eight) Branch hours as needed for Nausea and Vomiting (N/V). loperamide 2019-2020- No [id number] 2mg Take 1 U nivers 2 mg 5-21 06-20 capsule by ity of capsule 00:00: 00:00 mouth [place] 00 :00 every 4 Medical (four) Branch hours as needed for Diarrhea. Not to exceed 16mg daily. dicyclomine 2020-0 2020- No [id number] 10mg Take 1 [facility] (BENTYL) 10 5-21 05-27 capsule by i ty of mg capsule 00:00: 04:59 mouth [place] 00 :00 every 8 Medical (eight) Branch hours as needed for Abdominal pain for up to 5 days. diazePAM 2020-0 2020- No 5mg 5 mg, Slow Un jaqueline (VALIUM) 06-16 IV Push, ity of injection 5 15:45: 14:45 ONCE, 1 [place] mg 00 :00 dose, [facility] 06/16/19 at [place] 0945, STAT diazePAM 2020-0 2020- No 2.5mg 2.5 mg, Univ ers (VALIUM) 06-16 Oral, ity of tablet 2.5 14:15: 14:08 ONCE, 1 [place] mg 00 :00 dose, [facility] 06/16/19 at [place] 0815, TITA LORazepam 2019-0 2020- No 1mg 1 mg, Slow U nivers (ATIVAN) 06-15 0205 IV Push, ity of injection 1 20:00: 18:59 ONCE, 1 [place] mg 00 :00 dose, [facility] 06/15/19 at [place] 1400, STAT metoprolol 2020-0 Yes 50mg Take 50 mg U nivers succinate 1-19 by mouth 2 ity of XL (TOPROL 16:21: ([facility]) [place] XL) 25 mg 12 times Medical 24 hr daily. Branch tablet diazePAM 2020-0 Yes 10mg Take 10 mg Uni vers (VALIUM) 10 1-19 by mouth 2 it y of mg tablet 16:21: (two) [place] 12 times Medical daily. Branch metoprolol 2020-0 Yes 50mg Take 50 mg U nivers succinate 1-19 by mouth 2 ity of XL (TOPROL 16:21: (two) [place] XL) 25 mg 12 times Medical 24 hr daily. Branch tablet diazePAM 2020-0 Yes 10mg Take 10 mg Uni vers (VALIUM) 10 1-19 by mouth 2 it y of mg tablet 16:21: (two) [place] 12 times Medical daily. Branch metoprolol 2020-0 Yes 50mg Take 50 mg U nivers succinate 1-19 by mouth 2 ity of XL (TOPROL 16:21: (two) [place] XL) 25 mg 12 times Medical 24 hr daily. Branch tablet diazePAM 2020-0 Yes 10mg Take 10 mg Uni vers (VALIUM) 10 1-19 by mouth 2 it y of mg tablet 16:21: (two) [place] 12 times Medical daily. Branch metoprolol 2020-0 Yes 50mg Take 50 mg U nivers succinate 1-19 by mouth 2 ity of XL (TOPROL 16:21: (two) [place] XL) 25 mg 12 times Medical 24 hr daily. Branch tablet diazePAM 2020-0 Yes 10mg Take 10 mg Uni vers (VALIUM) 10 1-19 by mouth 2 it y of mg tablet 16:21: (two) [place] 12 times Medical daily. Branch metoprolol 2020-0 Yes 50mg Take 50 mg U nivers succinate 1-19 by mouth 2 ity of XL (TOPROL 16:21: (two) [place] XL) 25 mg 12 times Medical 24 hr daily. Branch tablet diazePAM 2020-0 Yes 10mg Take 10 mg Uni vers (VALIUM) 10 1-19 by mouth 2 it y of mg tablet 16:21: (two) [place] 12 times Medical daily. Branch metoprolol 2020-0 Yes 50mg Take 50 mg U nivers succinate 1-19 by mouth 2 ity of XL (TOPROL 16:21: (two) [place] XL) 25 mg 12 times Medical 24 hr daily. Branch tablet diazePAM 2020-0 Yes 10mg Take 10 mg Uni vers (VALIUM) 10 1-19 by mouth 2 it y of mg tablet 16:21: (two) [place] 12 times Medical daily. Branch metoprolol 2020-0 Yes 50mg Take 50 mg U nivers succinate 1-19 by mouth 2 ity of XL (TOPROL 16:21: (two) [place] XL) 25 mg 12 times Medical 24 hr daily. Branch tablet diazePAM 2020-0 Yes 10mg Take 10 mg Uni vers (VALIUM) 10 1-19 by mouth 2 it y of mg tablet 16:21: (two) [place] 12 times Medical daily. Branch metoprolol 2020-0 Yes 50mg Take 50 mg U nivers succinate 1-19 by mouth 2 ity of XL (TOPROL 16:21: (two) [place] XL) 25 mg 12 times Medical 24 hr daily. Branch tablet diazePAM 2020-0 Yes 10mg Take 10 mg Uni vers (VALIUM) 10 1-19 by mouth 2 it y of mg tablet 16:21: ([facility]) [place] 12 times Medical daily. Branch metoprolol 2020-0 Yes 50mg Take 50 mg U nivers succinate 1-19 by mouth 2 ity of XL (TOPROL 16:21: (two) [place] XL) 25 mg 12 times Medical 24 hr daily. Branch tablet diazePAM 2019-0 Yes 10mg Take 10 mg Uni vers (VALIUM) 10 1-19 by mouth 2 it y of mg tablet 16:21: (two) [place] 12 times Medical daily. Branch metoprolol 2019-0 Yes 50mg Take 50 mg U nivers succinate 1-19 by mouth 2 ity of XL (TOPROL 16:21: (two) [place] XL) 25 mg 12 times Medical 24 hr daily. Branch tablet diazePAM 0 Yes 10mg Take 10 mg Uni vers (VALIUM) 10 1-19 by mouth 2 it y of mg tablet 16:21: ([facility]) [place] 12 times Medical daily. Branch amoxicillin 2019-0 2020- No [id number] 500mg Take 1 [facility] 500 mg 05-29-30 capsule by ity of capsule 00:00: 05:59 mouth 2 [place] 00 :00 (two) Medical times [place] daily for 10 days. amoxicillin 2020-0 2020- No [id number] 500mg Take 1 [facility] 500 mg 05-29-30 capsule by ity of capsule 00:00: 05:59 mouth 2 [place] 00 :00 (two) Medical times [place] daily for 10 days. metoprolol 2018-05 Yes 50mg Take 50 mg U nivers succinate 0-12 by mouth 2 ity of XL (TOPROL 08:43: (two) [place] XL) 25 mg 57 times Medical 24 hr daily. Branch tablet diazePAM 2018-05 Yes 10mg Take 10 mg Uni vers (VALIUM) 10 0-12 by mouth 2 it y of mg tablet 08:43: ([facility]) [place] 57 times Medical daily. Branch pantoprazol 2018-05 Yes [id number] 40mg Take 1 Univers e 0-12 tablet by ity of (PROTONIX) 00:00: mouth [place] 40 mg EC 00 daily. Medical tablet Branch pantoprazol 2018-05 Yes [id number] 40mg Take 1 Univers e 0-12 tablet by ity of (PROTONIX) 00:00: mouth [place] 40 mg EC 00 daily. Medical tablet Branch pantoprazol 2018-05 Yes [id number] 40mg Take 1 Univers e 0-12 tablet by ity of (PROTONIX) 00:00: mouth [place] 40 mg EC 00 daily. Medical tablet Branch pantoprazol 2018-05 Yes [id number] 40mg Take 1 Univers e 0-12 tablet by ity of (PROTONIX) 00:00: mouth [place] 40 mg EC 00 daily. Medical tablet Branch pantoprazol 2018-05 Yes [id number] 40mg Take 1 Univers e 0-12 tablet by ity of (PROTONIX) 00:00: mouth [place] 40 mg EC 00 daily. Medical tablet Branch pantoprazol 2018-05 Yes [id number] 40mg Take 1 Univers e 0-12 tablet by ity of (PROTONIX) 00:00: mouth [place] 40 mg EC 00 daily. Medical tablet Branch pantoprazol 2018-05 Yes [id number] 40mg Take 1 Univers e 0-12 tablet by ity of (PROTONIX) 00:00: mouth [place] 40 mg EC 00 daily. Medical tablet Branch pantoprazol 2018-05 Yes [id number] 40mg Take 1 Univers e 0-12 tablet by ity of (PROTONIX) 00:00: mouth [place] 40 mg EC 00 daily. Medical tablet Branch pantoprazol 2018-05 Yes [id number] 40mg Take 1 Univers e 0-12 tablet by ity of (PROTONIX) 00:00: mouth [place] 40 mg EC 00 daily. Medical tablet Branch pantoprazol 2018-05 Yes [id number] 40mg Take 1 Univers e 0-12 tablet by ity of (PROTONIX) 00:00: mouth [place] 40 mg EC 00 daily. Medical tablet Branch pantoprazol 2018-05 Yes [id number] 40mg Take 1 Univers e 0-12 tablet by ity of (PROTONIX) 00:00: mouth [place] 40 mg EC 00 daily. Medical tablet Branch pantoprazol 2018-05 Yes [id number] 40mg Take 1 Univers e 0-12 tablet by ity of (PROTONIX) 00:00: mouth [place] 40 mg EC 00 daily. Medical tablet Branch pantoprazol 2018-05 Yes [id number] 40mg Take 1 Univers e 0-12 tablet by ity of (PROTONIX) 00:00: mouth [place] 40 mg EC 00 daily. Medical tablet Branch pantoprazol 2018-05 Yes [id number] 40mg Take 1 Univers e 0-12 tablet by ity of (PROTONIX) 00:00: mouth [place] 40 mg EC 00 daily. Medical tablet Branch pantoprazol 2018-05 Yes [id number] 40mg Take 1 Univers e 0-12 tablet by ity of (PROTONIX) 00:00: mouth [place] 40 mg EC 00 daily. Medical tablet Branch pantoprazol 2018-05 Yes [id number] 40mg Take 1 [facility] e 0-12 tablet by ity of (PROTONIX) 00:00: mouth [place] 40 mg EC 00 daily. Medical tablet Branch pantoprazol 2018-05 Yes [id number] 40mg Take 1 Univers e 0-12 tablet by ity of (PROTONIX) 00:00: mouth [place] 40 mg EC 00 daily. Medical tablet Branch pantoprazol 2018-05 Yes [id number] 40mg Take 1 Univers e 0-12 tablet by ity of (PROTONIX) 00:00: mouth [place] 40 mg EC 00 daily. Medical tablet Branch ketorolac 2018- No 15mg 15 mg, Unive rs (TORADOL) 01-25 Slow IV ity of injection 01:00: 23:57 Push, [place] 15 mg 00 :00 ONCE, 1 Medical dose, [facility] Branch 01/24/19 at 2000, Routine
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 methocarbam Yes [id number] 500mg Take 1 [facility] ol 500 mg 9-16 tablet by ity o f tablet 00:00: mouth 4 00 (four) Medical times Branch daily. methocarbam Yes [id number] 500mg Take 1 [facility] ol 500 mg 9-16 tablet by ity o f tablet 00:00: mouth 4 [place] 00 (four) Medical times Branch daily. methocarbam Yes [id number] 500mg Take 1 [facility] ol 500 mg 9-16 tablet by ity o f tablet 00:00: mouth [place] ([facility]) Medical times Branch daily. methocarbam 2018- Yes [id number] 500mg Take 1 [facility] ol 500 mg 9-16 tablet by ity o f tablet 00:00: mouth [place] (four) Medical times Branch daily. methocarbam 2018- Yes [id number] 500mg Take 1 [facility] ol 500 mg 9-16 tablet by ity o f tablet 00:00: mouth [place] ([facility]) Medical times Branch daily. methocarbam Yes [id number] 500mg Take 1 [facility] ol 500 mg 9-16 tablet by ity o f tablet 00:00: mouth [address] [place] [address] ([facility]) Medical times Branch daily. methocarbam Yes [id number] 500mg Take 1 [facility] ol 500 mg 9-16 tablet by ity o f tablet 00:00: mouth [address] [place] [address] ([facility]) Medical times Branch daily. methocarbam Yes [id number] 500mg Take 1 [facility] ol 500 mg 9-16 tablet by ity o f tablet 00:00: mouth [place] ([facility]) Medical times Branch daily. methocarbam Yes [id number] 500mg Take 1 [facility] ol 500 mg 9-16 tablet by ity o f tablet 00:00: mouth [address] [place] [address] ([facility]) Medical times Branch daily. methocarbam Yes [id number] 500mg Take 1 [facility] ol 500 mg 9-16 tablet by ity o f tablet 00:00: mouth [address] [place] [address] ([facility]) Medical times Branch daily. methocarbam Yes [id number] 500mg Take 1 [facility] ol 500 mg 9-16 tablet by ity o f tablet 00:00: mouth [address] [place] [address] ([facility]) Medical times Branch daily. methocarbam 2020- No [id number] 500mg Take 1 [facility] ol 500 mg 9-16 06-20 tablet by ity of tablet 00:00: 00:[address] [place] [address] 00 :00 ([facility]) Medical times Branch daily. ketorolac 2018- No 30mg 30 mg, Unive rs (TORADOL) 8 08- Slow IV ity of injection 23:45: 23:22 Push, [place] 30 mg 00 :00 ONCE, 1 Medical dose, [facility] 12/21/18 at 1845, TITA
[facility] member approving Restricted medication : DEMOND DANIELS dicyclomine 2019- No 20mg 20 mg, Uni vers (BENTYL) 12-21 Oral, ONCE ity of capsule 20 23:45: 23:22 NOW, 1 [place] mg 00 :00 dose, [facility] 12/21/18 at Branch 1845, Routine ondansetron 2019- No 4mg 4 mg, Slow Univers (ZOFRAN 12-21 IV Push, ity of (PF)) 22:30: 22:25 ONCE, 1 [place] injection 4 00 :00 dose, [facility] Med ical mg 12/21/18 at Branch 1730, TITA NaCl 0.9% 2019- No 1000mL at 999 Uni vers (NS) bolus 12-21 mL/hr, ity of infusion 22:30: 23:34 1,000 mL, [place] 1,000 mL 00 :00 IV Medical Infusion, Branch ONCE, 1 dose, [facility] 12/21/18 at 1730, STAT ondansetron 2018- Yes [id number] 4mg Take 1 [facility] (ZOFRAN 8-13 tablet by ity of ODT) 4 mg 00:00: mouth [place] disintegrat 00 every 8 Medic al ing tablet (eight) Branch hours as needed for Nausea and Vomiting (N/V). dicyclomine 2019-0 Yes [id number] 20mg Take 1 [facility] (BENTYL) 20 8-13 tablet by ity of mg tablet 00:00: mouth 3 [place] 00 (three) Medical times Branch daily as needed for Abdominal pain. ondansetron 2019-0 Yes [id number] 4mg Take 1 [facility] (ZOFRAN 8-13 tablet by ity of ODT) 4 mg 00:00: mouth [place] disintegrat 00 every 8 Medic al ing tablet (eight) Branch hours as needed for Nausea and Vomiting (N/V). dicyclomine 2019-0 Yes [id number] 20mg Take 1 [facility] (BENTYL) 20 8-13 tablet by ity of mg tablet 00:00: mouth 3 [place] 00 (three) Medical times Branch daily as needed for Abdominal pain. ondansetron 2019-0 Yes [id number] 4mg Take 1 [facility] (ZOFRAN 8-13 tablet by ity of ODT) 4 mg 00:00: mouth [place] disintegrat 00 every 8 Medic al ing tablet (eight) Branch hours as needed for Nausea and Vomiting (N/V). dicyclomine 2019-0 Yes [id number] 20mg Take 1 [facility] (BENTYL) 20 8-13 tablet by ity of mg tablet 00:00: mouth 3 [place] 00 (three) Medical times Branch daily as needed for Abdominal pain. ondansetron 2019-0 Yes [id number] 4mg Take 1 [facility] (ZOFRAN 8-13 tablet by ity of ODT) 4 mg 00:00: mouth [place] disintegrat 00 every 8 Medic al ing tablet (eight) Branch hours as needed for Nausea and Vomiting (N/V). dicyclomine 2019-0 Yes [id number] 20mg Take 1 [facility] (BENTYL) 20 8-13 tablet by ity of mg tablet 00:00: mouth 3 [place] 00 (three) Medical times Branch daily as needed for Abdominal pain. ondansetron 2019-0 Yes [id number] 4mg Take 1 [facility] (ZOFRAN 8-13 tablet by ity of ODT) 4 mg 00:00: mouth [place] disintegrat 00 every 8 Medic al ing tablet (eight) Branch hours as needed for Nausea and Vomiting (N/V). dicyclomine 2019-0 Yes [id number] 20mg Take 1 [facility] (BENTYL) 20 8-13 tablet by ity of mg tablet 00:00: mouth 3 [place] 00 (three) Medical times Branch daily as needed for Abdominal pain. ondansetron 2019-0 Yes [id number] 4mg Take 1 [facility] (ZOFRAN 8-13 tablet by ity of ODT) 4 mg 00:00: mouth [place] disintegrat 00 every 8 Medic al ing tablet (eight) Branch hours as needed for Nausea and Vomiting (N/V). dicyclomine 2019-0 Yes [id number] 20mg Take 1 [facility] (BENTYL) 20 8-13 tablet by ity of mg tablet 00:00: mouth 3 [place] 00 (three) Medical times Branch daily as needed for Abdominal pain. ondansetron 2019-0 Yes [id number] 4mg Take 1 [facility] (ZOFRAN 8-13 tablet by ity of ODT) 4 mg 00:00: mouth [place] disintegrat 00 every 8 Medic al ing tablet (eight) Branch hours as needed for Nausea and Vomiting (N/V). dicyclomine 2018- Yes [id number] 20mg Take 1 [facility] (BENTYL) 20 8-13 tablet by ity of mg tablet 00:00: mouth 3 [place] 00 (three) Medical times Branch daily as needed for Abdominal pain. ondansetron Yes [id number] 4mg Take 1 [facility] (ZOFRAN 8-13 tablet by ity of ODT) 4 mg 00:00: mouth [place] disintegrat 00 every 8 Medic al ing tablet (eight) Branch hours as needed for Nausea and Vomiting (N/V). dicyclomine Yes [id number] 20mg Take 1 [facility] (BENTYL) 20 8-13 tablet by ity of mg tablet 00:00: mouth 3 [place] 00 (three) Medical times Branch daily as needed for Abdominal pain. ondansetron Yes [id number] 4mg Take 1 [facility] (ZOFRAN 8-13 tablet by ity of ODT) 4 mg 00:00: mouth [place] disintegrat 00 every 8 Medic al ing tablet (eight) Branch hours as needed for Nausea and Vomiting (N/V). dicyclomine Yes [id number] 20mg Take 1 [facility] (BENTYL) 20 8-13 tablet by ity of mg tablet 00:00: mouth 3 [place] 00 (three) Medical times Branch daily as needed for Abdominal pain. ondansetron 2020- No [id number] 4mg Take 1 [facility] (ZOFRAN 8-13 05-21 tablet by ity of ODT) 4 mg 00:00: 00:00 mouth [place] disintegrat 00 :00 every 8 Medic al ing tablet (eight) Branch hours as needed for Nausea and Vomiting (N/V). dicyclomine 2020- No [id number] 20mg Take 1 [facility] (BENTYL) 20 8-13 05-21 tablet by it y of mg tablet 00:00: 00:00 mouth 3 [place] 00 :00 (three) Medical times Branch daily as needed for Abdominal pain. metoprolol Yes 50mg Take 50 mg U nivers succinate 7-02 by mouth 2 ity of XL (TOPROL 22:02: (two) [place] XL) 25 mg 32 times Medical 24 hr daily. Branch tablet diazePAM Yes 10mg Take 10 mg Uni vers (VALIUM) 10 7- by mouth 2 it y of mg tablet 22:02: (two) [place] 32 times Medical daily. Branch metoprolol Yes 50mg Take 50 mg U nivers succinate 11-09 by mouth 2 ity of XL (TOPROL 22:02: (two) [place] XL) 25 mg 32 times Medical 24 hr daily. Branch tablet diazePAM Yes 10mg Take 10 mg Uni vers (VALIUM) 10 11-09 by mouth 2 it y of mg tablet 22:02: (two) [place] 32 times Medical daily. Branch metoprolol Yes 50mg Take 50 mg U nivers succinate 11-09 by mouth 2 ity of XL (TOPROL 22:02: (two) [place] XL) 25 mg 32 times Medical 24 hr daily. Branch tablet diazePAM Yes 10mg Take 10 mg Uni vers (VALIUM) 10 11-09 by mouth 2 it y of mg tablet 22:02: (two) [place] 32 times Medical daily. Branch metoprolol Yes 50mg Take 50 mg U nivers succinate 11-09 by mouth 2 ity of XL (TOPROL 22:02: (two) [place] XL) 25 mg 32 times Medical 24 hr daily. Branch tablet diazePAM Yes 10mg Take 10 mg Uni vers (VALIUM) 10 11-09 by mouth 2 it y of mg tablet 22:02: (two) [place] 32 times Medical daily. Branch traMADOL 2014-05 Yes 50mg Take 1 Tab Uni vers (ULTRAM) 50 2-25 by mouth ity of mg tablet 00:00: every 6 [place] 00 (six) Medical hours as Branch needed for Pain (scale 7-10). methocarbam 2014-05 Yes 750mg Take 1 Tab Univers ol 2-25 by mouth 4 ity of (ROBAXIN-75 00:00: (four) [place] 0) 750 mg 00 times Medical tablet daily. Branch traMADOL 2014-05 Yes 50mg Take 1 Tab Uni vers (ULTRAM) 50 2-25 by mouth ity of mg tablet 00:00: every 6 [place] 00 (six) Medical hours as Branch needed for Pain (scale 7-10). methocarbam 2014-05 Yes 750mg Take 1 Tab [facility] ol 2-25 by mouth 4 ity of (ROBAXIN-75 00:00: (four) [place] 0) 750 mg 00 times Medical tablet daily. Branch traMADOL 2014-05 Yes 50mg Take 1 Tab Uni vers (ULTRAM) 50 2-25 by mouth ity of mg tablet 00:00: every 6 [place] 00 (six) Medical hours as Branch needed for Pain (scale 7-10). methocarbam 2014-05 Yes 750mg Take 1 Tab [facility] ol 2-25 by mouth 4 ity of (ROBAXIN-75 00:00: (four) [place] 0) 750 mg 00 times Medical tablet daily. Branch traMADOL 2014-05 Yes 50mg Take 1 Tab Uni vers (ULTRAM) 50 2-25 by mouth ity of mg tablet 00:00: every 6 [place] 00 (six) Medical hours as Branch needed for Pain (scale 7-10). methocarbam 2014-05 Yes 750mg Take 1 Tab [facility] ol 2-25 by mouth 4 ity of (ROBAXIN-75 00:00: (four) [place] 0) 750 mg 00 times Medical tablet daily. Branch traMADOL 2014-05 Yes 50mg Take 1 Tab Uni vers (ULTRAM) 50 2-25 by mouth ity of mg tablet 00:00: every 6 [place] 00 (six) Medical hours as Branch needed for Pain (scale 7-10). methocarbam 2014-05 Yes 750mg Take 1 Tab [facility] ol 2-25 by mouth 4 ity of (ROBAXIN-75 00:00: (four) [place] 0) 750 mg 00 times Medical tablet daily. Branch traMADOL 2014-05 Yes 50mg Take 1 Tab Uni vers (ULTRAM) 50 2-25 by mouth ity of mg tablet 00:00: every 6 [place] 00 (six) Medical hours as Branch needed for Pain (scale 7-10). methocarbam 2014-05 Yes 750mg Take 1 Tab [facility] ol 2-25 by mouth 4 ity of (ROBAXIN-75 00:00: (four) [place] 0) 750 mg 00 times Medical tablet daily. Branch traMADOL 2014-05 Yes 50mg Take 1 Tab Uni vers (ULTRAM) 50 2-25 by mouth ity of mg tablet 00:00: every 6 [place] 00 (six) Medical hours as Branch needed for Pain (scale 7-10). methocarbam 2014-05 Yes 750mg Take 1 Tab [facility] ol 2-25 by mouth 4 ity of (ROBAXIN-75 00:00: (four) [place] 0) 750 mg 00 times Medical tablet daily. Branch traMADOL 2014-05 Yes 50mg Take 1 Tab Uni vers (ULTRAM) 50 2-25 by mouth ity of mg tablet 00:00: every 6 [place] 00 (six) Medical hours as Branch needed for Pain (scale 7-10). methocarbam 2014-05 Yes 750mg Take 1 Tab Univers ol 2-25 by mouth 4 ity of (ROBAXIN-75 00:[place] 750 [place] 00 times Medical tablet daily. Branch traMADOL 2014-05 Yes 50mg Take 1 Tab [facility] vers (ULTRAM) 50 2-25 by mouth ity of mg tablet 00:00: every 6 [place] 00 (six) Medical hours as Branch needed for Pain (scale 7-10). methocarbam 2014-05 Yes 750mg Take 1 Tab [facility] 2-25 by mouth 4 ity of (ROBAXIN-75 [place]: ([place] 750 mg 00 times Medical tablet daily. Branch traMADOL 2014-05 Yes 50mg Take 1 Tab [facility] vers (ULTRAM) 50 2-25 by mouth ity of mg tablet 00:00: every 6 [place] 00 (six) Medical hours as Branch needed for Pain (scale 7-10). methocarbam 2014-05 Yes 750mg Take 1 Tab [facility] 2-25 by mouth 4 ity of (ROBAXIN-75 00:00: (four[place] 750 mg 00 times Medical tablet daily. Branch traMADOL 2014-05 Yes 50mg Take 1 Tab [facility] vers (ULTRAM) 50 2-25 by mouth ity of mg tablet 00:00: every 6 [place] 00 (six) Medical hours as Branch needed for Pain (scale 7-10). methocarbam 2014-05 Yes 750mg Take 1 Tab [facility] 2-25 by mouth 4 ity of (ROBAXIN-75 00:00: (four[place] 750 mg 00 times Medical tablet daily. Branch traMADOL 2014-05 Yes 50mg Take 1 Tab [facility] vers (ULTRAM) 50 2-25 by mouth ity of mg tablet 00:00: every 6 [place] 00 (six) Medical hours as Branch needed for Pain (scale 7-10). methocarbam 2014-05 Yes 750mg Take 1 Tab [facility] 2-25 by mouth 4 ity of (ROBAXIN-75 00:00: (four[place] 750 mg 00 times Medical tablet daily. Branch traMADOL 2014-05 Yes 50mg Take 1 Tab [facility] vers (ULTRAM) 50 2-25 by mouth ity of mg tablet 00:00: every 6 [place] 00 (six) Medical hours as Branch needed for Pain (scale 7-10). methocarbam 2014-05 Yes 750mg Take 1 Tab [facility] 2-25 by mouth 4 ity of (ROBAXIN-75 00:00: (four[place] 750 mg 00 times Medical tablet daily. Branch traMADOL 2014-05 Yes 50mg Take 1 Tab [facility] (ULTRAM) 50 2-25 by mouth ity of mg tablet 00:00: every 6 [place] 00 (six) Medical hours as Branch needed for Pain (scale 7-10). methocarbam 2014-05 Yes 750mg Take 1 Tab [facility] 2-25 by mouth 4 ity of (ROBAXIN-75 00:00: (four[place] 0[place] 750 mg 00 times Medical tablet daily. Branch traMADOL 2014-05 Yes 50mg Take 1 Tab [facility] vers (ULTRAM) 50 2-25 by mouth ity of mg tablet 00:00: every 6 [place] 00 (six) Medical hours as Branch needed for Pain (scale 7-10). methocarbam 2014-05 Yes 750mg Take 1 Tab [facility] 2-25 by mouth 4 ity of (ROBAXIN-75 00:00: (four[place] 0[place] 750 mg 00 times Medical tablet daily. Branch traMADOL 2014-05- No 50mg Take 1 Tab [facility] (ULTRAM) 50 2-25 06-20 by mouth ity of mg tablet 00:00: 00:00 [place] 6 [place] :00 (six) Medical hours as Branch needed for Pain (scale 7-10). methocarbam 2014-05- No 750mg Take 1 Tab [facility] 2-25 06-20 by mouth 4 ity of (ROBAXIN-75 00:00: 00:00 (four) [place] 0) 750 mg 00 :00 times Medical tablet daily. Branch busPIRone 2014-05 Yes 10mg Take 1 Tab [facility] (BUSPAR) 10 2-14 by mouth 2 it y of mg tablet 00:00: (two) [place] 00 times Medical daily. Branch busPIRone 2014-05 Yes 10mg Take 1 Tab [facility] (BUSPAR) 10 2-14 by mouth 2 it y of mg tablet 00:00: (two) [place] 00 times Medical daily. Branch busPIRone 2014-05 Yes 10mg Take 1 Tab [facility] (BUSPAR) 10 2-14 by mouth 2 it y of mg tablet 00:00: (two) [place] 00 times Medical daily. Branch busPIRone 2014-05 Yes 10mg Take 1 Tab [facility] (BUSPAR) 10 2-14 by mouth 2 it y of mg tablet 00:00: (two) [place] 00 times Medical daily. Branch busPIRone 2014-05 Yes 10mg Take 1 Tab [facility] (BUSPAR) 10 2-14 by mouth 2 it y of mg tablet 00:00: (two) [place] 00 times Medical daily. Branch busPIRone 2014-05 Yes 10mg Take 1 Tab [facility] (BUSPAR) 10 2-14 by mouth 2 it y of mg tablet 00:00: (two) [place] 00 times Medical daily. Branch busPIRone 2014-05 Yes 10mg Take 1 Tab [facility] (BUSPAR) 10 2-14 by mouth 2 it y of mg tablet 00:00: (two) [place] 00 times Medical daily. Branch busPIRone 2014-05 Yes 10mg Take 1 Tab [facility] (BUSPAR) 10 2-14 by mouth 2 it y of mg tablet 00:00: (two) [place] 00 times Medical daily. Branch busPIRone 2014-05 Yes 10mg Take 1 Tab [facility] (BUSPAR) 10 2-14 by mouth 2 it y of mg tablet 00:00: (two) [place] 00 times Medical daily. Branch busPIRone 2014-05 Yes 10mg Take 1 Tab [facility] (BUSPAR) 10 2-14 by mouth 2 it y of mg tablet 00:00: (two) [place] 00 times Medical daily. Branch busPIRone 2014-05 Yes 10mg Take 1 Tab [facility] (BUSPAR) 10 2-14 by mouth 2 it y of mg tablet 00:00: (two) [place] 00 times Medical daily. Branch busPIRone 2014-05 Yes 10mg Take 1 Tab [facility] (BUSPAR) 10 2-14 by mouth 2 it y of mg tablet 00:00: (two) [place] 00 times Medical daily. Branch busPIRone 2014-05 Yes 10mg Take 1 Tab [facility] (BUSPAR) 10 2-14 by mouth 2 it y of mg tablet 00:00: (two) [place] 00 times Medical daily. Branch busPIRone 2014-05 Yes 10mg Take 1 Tab [facility] (BUSPAR) 10 2-14 by mouth 2 it y of mg tablet 00:00: (two) [place] 00 times Medical daily. Branch busPIRone 2014-05 Yes 10mg Take 1 Tab [facility] (BUSPAR) 10 2-14 by mouth 2 it y of mg tablet 00:00: (two) [place] 00 times Medical daily. Branch busPIRone 2014-05- No 10mg Take 1 Tab U nivers (BUSPAR) 10 2-14 06-20 by mouth 2 i ty of mg tablet 00:00: 00:00 (two) [place] 00 :00 times Medical daily. Branch clonazePAM 2014-05 Yes .25mg Take 1 Tab [facility] (KLONOPIN) 2-03 by mouth ity o f 0.25 mg 00:00: at bedtime [place] disintegrat 00 as needed Med ical ing tablet for Branch Anxiety. clonazePAM 2014-05 Yes .25mg Take 1 Tab [facility] (KLONOPIN) 2-03 by mouth ity o f 0.25 mg 00:00: at bedtime [place] disintegrat 00 as needed Med ical ing tablet for Branch Anxiety. clonazePAM 2014-05 Yes .25mg Take 1 Tab [facility] (KLONOPIN) 2-03 by mouth ity o f 0.25 mg 00:00: at bedtime [place] 00 as needed Med ical ing tablet for Branch Anxiety. clonazePAM 2014-05 Yes .25mg Take 1 Tab [facility] (KLONOPIN) 2-03 by mouth ity o f 0.25 mg 00:00: at bedtime [place] dis[place] 00 as needed Med ical ing tablet for Branch Anxiety. clonazePAM 2014-05 Yes .25mg Take 1 Tab [facility] (KLONOPIN) 2-03 by mouth ity o f 0.25 mg 00:00: at bedtime [place] 00 as needed Med ical ing tablet for Branch Anxiety. clonazePAM 2014-05 Yes .25mg Take 1 Tab [facility] (KLONOPIN) 2-03 by mouth ity o f 0.25 mg 00:00: at bedtime [place] dis[place] 00 as needed Med ical ing tablet for Branch Anxiety. clonazePAM 2014-05 Yes .25mg Take 1 Tab [facility] (KLONOPIN) 2-03 by mouth ity o f 0.25 mg 00:00: at bedtime [place] 00 as needed Med ical ing tablet for Branch Anxiety. clonazePAM 2014-05 Yes .25mg Take 1 Tab [facility] (KLONOPIN) 2-03 by mouth ity o f 0.25 mg 00:00: at bedtime [place] 00 as needed Med ical ing tablet for Branch Anxiety. clonazePAM 2014-05 Yes .25mg Take 1 Tab [facility] (KLONOPIN) 2-03 by mouth ity o f 0.25 mg 00:00: at bedtime [place] 00 as needed Med ical ing tablet for Branch Anxiety. clonazePAM 2014-05 Yes .25mg Take 1 Tab [facility] (KLONOPIN) 2-03 by mouth ity o f 0.25 mg 00:00: at bedtime [place] 00 as needed Med ical ing tablet for Branch Anxiety. clonazePAM 2014-05 Yes .25mg Take 1 Tab [facility] (KLONOPIN) 2-03 by mouth ity o f 0.25 mg 00:00: at bedtime [place] 00 as needed Med ical ing tablet for Branch Anxiety. clonazePAM 2014-05 Yes .25mg Take 1 Tab [facility] (KLONOPIN) 2-03 by mouth ity o f 0.25 mg 00:00: at bedtime [place] 00 as needed Med ical ing tablet for Branch Anxiety. clonazePAM 2014-05 Yes .25mg Take 1 Tab [facility] (KLONOPIN) 2-03 by mouth ity o f 0.25 mg 00:00: at bedtime [place] 00 as needed Med ical ing tablet for Branch Anxiety. clonazePAM 2014-05 Yes .25mg Take 1 Tab [facility] (KLONOPIN) 2-03 by mouth ity o f 0.25 mg 00:00: at bedtime [place] 00 as needed Med ical ing tablet for Branch Anxiety. clonazePAM 2014-05 Yes .25mg Take 1 Tab [facility] (KLONOPIN) 2-03 by mouth ity o f 0.25 mg 00:00: at bedtime [place] 00 as needed Med ical ing tablet for Branch Anxiety. clonazePAM 2014-05 Yes .25mg Take 1 Tab [facility] (KLONOPIN) 2-03 by mouth ity o f 0.25 mg 00:00: at bedtime [place] 00 [place] needed Med ical ing tablet for Branch Anxiety. clonazePAM 2014-05 Yes .25mg Take 1 Tab [facility] (KLONOPIN) 2-03 by mouth ity o f 0.25 mg 00:00: at bedtime [place] 00 as needed Med ical ing tablet for Branch Anxiety. clonazePAM 2014-05 Yes .25mg Take 1 Tab [facility] (KLONOPIN) 2-03 by mouth ity o f 0.25 mg 00:00: at bedtime [place] 00 [place] needed Med ical ing tablet for Branch Anxiety. clonazePAM 2014-05 Yes .25mg Take 1 Tab [facility] (KLONOPIN) 2-03 by mouth ity o f 0.25 mg 00:00: at bedtime [place] 00 as needed Med ical ing tablet for Branch Anxiety. clonazePAM 2014-05 Yes .25mg Take 1 Tab [facility] (KLONOPIN) 2-03 by mouth ity o f 0.25 mg 00:00: at bedtime [place] 00 as needed Med ical ing tablet for Branch Anxiety. clonazePAM 2014-05 Yes .25mg Take 1 Tab [facility] (KLONOPIN) 2-03 by mouth ity o f 0.25 mg 00:00: at bedtime [place] 00 as needed Med ical ing tablet for Branch Anxiety. clonazePAM 2014-05 Yes .25mg Take 1 Tab [facility] (KLONOPIN) 2-03 by mouth ity o f 0.25 mg 00:00: [place] 00 as needed Med ical ing tablet for Branch Anxiety. Immunizations Ordered Immunization Filled Immunization Date Status Commen ts Source Name Name MORALES ESTEBAN PF 2020-01-[address] [facility] Vital Signs Vital Name Observation Time Observation Value Comments Source Systolic blood 2021-03-31 14:51:24 151 mm[Hg] [facility] [place] [facility] Diastolic blood 2021-03-31 14:51:24 98 mm[Hg] [facility] [place] [facility] Heart rate 2021-03-31 14:51:24 92 /min [facility] [place] [facility] Body temperature 2021-03-31 14:51:24 36.67 Siobhan [facility] [place] [facility] Respiratory rate 2021-03-31 14:51:24 18 /min [facility] [place] [facility] Body height 2021-03-31 14:35:00 170.2 cm [facility] [place] [facility] Body weight 2021-03-31 14:35:00 99.791 kg [facility] [place] [facility] BMI 2021-03-31 14:35:00 34.46 kg/m2 [facility] [place] [facility] Oxygen saturation in 2021-03-31 14:35:00 99 /min [facility] Arterial blood by [facility] Pulse oximetry Branch Systolic blood 2021-02-18 16:00:00 110 mm[Hg] [facility] [place] [facility] Diastolic blood 2021-02-18 16:00:00 77 mm[Hg] [facility] [place] [facility] Heart rate 2021-02-18 16:00:00 61 /min [facility] [place] [facility] Respiratory rate 2021-02-18 16:00:00 15 /min [facility] [place] [facility] Oxygen saturation in 2021-02-18 16:00:00 98 /min [facility] Arterial blood by [facility] Pulse oximetry Branch Body temperature 2021-02-18 13:14:00 36.33 Siobhan [facility] [place] [facility] Body weight 2021-02-18 13:14:00 99.791 kg [facility] [place] [facility] BMI 2021-02-18 13:14:00 34.45 kg/m2 [facility] [place] [facility] Systolic blood 2021-01-24 13:26:00 137 mm[Hg] [facility] [place] [facility] Diastolic blood 2021-01-24 13:26:00 83 mm[Hg] [facility] [place] [facility] Heart rate 2021-01-24 13:26:00 96 /min [facility] [place] [facility] Body temperature 2021-01-24 13:26:00 37.39 Si[facility]han [facility] [place] [facility] Respiratory rate 2021-01-24 13:26:00 20 /min [facility] [place] [facility] Body weight 2021-01-24 13:26:00 99.791 kg [facility] [place] [facility] BMI 2021-01-24 13:26:00 34.45 kg/m2 [facility] [place] [facility] Oxygen saturation in 2021-01-24 13:26:00 95 /min [facility] Arterial blood by [facility] Pulse oximetry Branch Systolic blood 2020-12-07 15:00:00 121 mm[Hg] [facility] [place] [facility] Diastolic blood 2020-12-07 15:00:00 86 mm[Hg] [facility] [place] [facility] Heart rate 2020-12-07 15:00:00 79 /min [facility] [place] [facility] Body temperature 2020-12-07 15:00:00 36.22 Siobhan [facility] [place] [facility] Respiratory rate 2020-12-07 15:00:00 17 /min [facility] [place] [facility] Oxygen saturation in 2020-12-07 15:00:00 94 /min [facility] Arterial blood by [facility] Pulse oximetry Branch Body weight 2020-12-07 13:31:00 94.348 kg [facility] [place] [facility] BMI 2020-12-07 13:31:00 32.57 kg/m2 [facility] [place] [facility] Systolic blood 2020-10-28 12:21:00 150 mm[Hg] [facility] [place] [facility] Diastolic blood 2020-10-28 12:21:00 78 mm[Hg] [facility] [place] [facility] Heart rate 2020-10-28 12:21:00 73 /min [facility] [place] [facility] Body temperature 2020-10-28 12:21:00 36.56 Si[facility]han [facility] [place] [facility] Respiratory rate 2020-10-28 12:21:00 11 /min [facility] [place] [facility] Oxygen saturation in 2020-10-28 12:21:00 98 /min [facility] [place] [facility] Pulse oxim[facility] Body weight 2020-10-28 09:00:00 94.666 kg [facility] [place] [facility] BMI 2020-10-28 09:00:00 32.68 kg/m2 [facility] [place] [facility] Body height 2020-10-25 13:00:00 170.2 cm [facility] [place] [facility] Systolic blood 2020-07-29 00:50:00 165 mm[Hg] [facility] [place] [facility] Diastolic blood 2020-07-29 00:50:00 103 mm[Hg] [facility] rs[facility] [place] [facility] Heart rate 2020-07-29 00:50:00 100 /min [facility] [place] [facility] Respiratory rate 2020-07-29 00:50:00 20 /min [facility] [place] [facility] Oxygen saturation in 2020-07-29 00:50:00 99 /min [facility] Ar[facility]ial blood by [place] [employer] [facility] Pulse oximetry Branch Body temperature 2020-07-28 18:16:26 36.5 Siobhan [facility] [place] [facility] Body height 2020-07-28 18:14:00 170.2 cm [facility] [place] [facility] Body weight 2020-07-28 18:14:00 83.915 kg [facility] [place] [facility] BMI 2020-07-28 18:14:00 28.98 kg/m2 [facility] [place] [facility] Systolic blood 2020-07-29 00:50:00 165 mm[Hg] [facility] [place] [facility] Diastolic blood 2020-07-29 00:50:00 103 mm[Hg] [facility] rs[facility] of pressure [place] [facility] Heart rate 2020-07-29 00:50:00 100 /min [facility] [place] [facility] Respiratory rate 2020-07-29 00:50:00 20 /min [facility] [place] [facility] Oxygen saturation in 2020-07-29 00:50:00 99 /min [facility] Arterial blood by [place] [employer] [facility] Pulse oximetry Branch Body temperature 2020-07-28 18:16:26 36.5 Siobhan [facility] [place] [facility] Body height 2020-07-28 18:14:00 170.2 cm [facility] [place] [facility] Body weight 2020-07-28 18:14:00 83.915 kg [facility] [place] [facility] BMI 2020-07-28 18:14:00 28.98 kg/m2 [facility] [place] [facility] Systolic blood 2020-06-30 15:00:00 145 mm[Hg] [facility] [place] [facility] Diastolic blood 2020-06-30 15:00:00 82 mm[Hg] [facility] [place] [facility] Heart rate 2020-06-30 15:00:00 88 /min [facility] [place] [facility] Respiratory rate 2020-06-30 15:00:00 15 /min [facility] [place] [facility] Oxygen saturation in 2020-06-30 15:00:00 97 /min [facility] Arterial blood by [facility] Pulse oximetry Branch Body temperature 2020-06-30 11:30:00 36.17 Siobhan [facility] [place] [facility] Body height 2020-06-30 11:30:00 170.2 cm [facility] [place] [facility] Body weight 2020-06-30 11:30:00 83.915 kg [facility] [place] [facility] BMI 2020-06-30 11:30:00 28.98 kg/m2 [facility] [place] [facility] Systolic blood 2020-06-30 15:00:00 145 mm[Hg] [facility] [place] [facility] Diastolic blood 2020-06-30 15:00:00 82 mm[Hg] [facility] [place] [facility] Heart rate 2020-06-30 15:00:00 88 /min [facility] [place] [facility] Respiratory rate 2020-06-30 15:00:00 15 /min [facility] [place] [facility] Oxygen saturation in 2020-06-30 15:00:00 97 /min [facility] Arterial blood by [facility] Pulse oximetry Branch Body temperature 2020-06-30 11:30:00 36.17 Si[facility]han [facility] [place] [facility] Body height 2020-06-30 11:30:00 170.2 cm [facility] [place] [facility] Body weight 2020-06-30 11:30:00 83.915 kg [facility] [place] [facility] BMI 2020-06-30 11:30:00 28.98 kg/m2 [facility] [place] [facility] Systolic blood 2020-06-23 21:33:48 151 mm[Hg] [facility] [place] [facility] Diastolic blood 2020-06-23 21:33:48 98 mm[Hg] [facility] [place] [facility] Heart rate 2020-06-23 21:33:48 98 /min [facility] [place] [facility] Respiratory rate 2020-06-23 21:33:48 16 /min [facility] [place] [facility] Oxygen saturation in 2020-06-23 21:33:48 97 /min [facility] Arterial blood by [facility] Pulse oximetry Branch Body temperature 2020-06-23 19:45:00 37 Siobhan [facility] [place] [facility] Body height 2020-06-23 19:45:00 170.2 cm [facility] [place] [facility] Body weight 2020-06-23 19:45:00 83.915 kg [facility] [place] [facility] BMI 2020-06-23 19:45:00 28.98 kg/m2 [facility] [place] [facility] Systolic blood 2020-06-23 21:33:48 151 mm[Hg] [facility] [place] [facility] Diastolic blood 2020-06-23 21:33:48 98 mm[Hg] [facility]ive rs[facility] of [facility] [place] [facility] Heart rate 2020-06-23 21:33:48 98 /min [facility] [place] [facility] Respiratory rate 2020-06-23 21:33:48 16 /min [facility] [place] [facility] Oxygen saturation in 2020-06-23 21:33:48 97 /min [facility] Arterial blood by [facility] Pulse oximetry Branch Body temperature 2020-06-23 19:45:00 37 Siobhan [facility] [place] [facility] Body height 2020-06-23 19:45:00 170.2 cm [facility] [place] [facility] Body weight 2020-06-23 19:45:00 83.915 kg [facility] [place] [facility] BMI 2020-06-23 19:45:00 28.98 kg/m2 [facility] [place] [facility] Systolic blood 2019-11-10 05:41:00 145 mm[Hg] [facility] [place] [facility] Diastolic blood 2019-11-10 05:41:00 88 mm[Hg] [facility] rs[facility] [place] [facility] Heart rate 2019-11-10 05:41:00 68 /min [facility] [place] [facility] Respiratory rate 2019-11-10 05:41:00 18 /min [facility] [place] [facility] Oxygen saturation in 2019-11-10 05:41:00 100 /min [facility] Arterial blood by [facility] Pulse oximetry Branch Body temperature 2019-11-10 04:15:00 36.61 Siobhan [facility] [place] [facility] Body height 2019-11-10 04:15:00 170.2 cm [facility] [place] [facility] Body weight 2019-11-10 04:15:00 86.183 kg [facility] [place] [facility] BMI 2019-11-10 04:15:00 29.76 kg/m2 [facility] [place] [facility] Systolic blood 2019-11-10 05:41:00 145 mm[Hg] [facility] [place] [facility] Diastolic blood 2019-11-10 05:41:00 88 mm[Hg] [facility] rs[facility] [place] [facility] Heart rate 2019-11-10 05:41:00 68 /min [facility] [place] [facility] Respiratory rate 2019-11-10 05:41:00 18 /min [facility] [place] [facility] Oxygen saturation in 2019-11-10 05:41:00 100 /min [facility] Arterial blood by [facility] Pulse oximetry Branch Body temperature 2019-11-10 04:15:00 36.61 Siobhan [facility] [place] [facility] Body height 2019-11-10 04:15:00 170.2 cm [facility] [place] [facility] Body weight 2019-11-10 04:15:00 86.183 kg [facility] [place] [facility] BMI 2019-11-10 04:15:00 29.76 kg/m2 [facility] [place] [facility] Systolic blood 2019-09-29 16:30:00 117 mm[Hg] [facility] [place] [facility] Diastolic blood 2019-09-29 16:30:00 78 mm[Hg] [facility] rs[facility] [place] [facility] Heart rate 2019-09-29 16:30:00 56 /min [facility] [place] [facility] Respiratory rate 2019-09-29 16:30:00 18 /min [facility] [place] [facility] Oxygen saturation in 2019-09-29 16:30:00 98 /min [facility] Arterial blood by [facility] Pulse oximetry Branch Body temperature 2019-09-29 14:39:00 36.56 Siobhan [facility] [place] [facility] Body height 2019-09-29 14:39:00 170.2 cm [facility] [place] [facility] Body weight 2019-09-29 14:39:00 86.183 kg [facility] [place] [facility] BMI 2019-09-29 14:39:00 29.76 kg/m2 [facility] [place] [facility] Systolic blood 2019-09-29 16:30:00 117 mm[Hg] [facility] [place] [facility] Diastolic blood 2019-09-29 16:30:00 78 mm[Hg] [facility]ive rs[facility] [place] [facility] Heart rate 2019-09-29 16:30:00 56 /min [facility] [place] [facility] Respiratory rate 2019-09-29 16:30:00 18 /min [facility] [place] [facility] Oxygen saturation in 2019-09-29 16:30:00 98 /min [facility] Arterial blood by [employer] Pulse oximetry Branch Body temperature 2019-09-29 14:39:00 36.56 Si[place]han [facility] [place] [facility] Body height 2019-09-29 14:39:00 170.2 cm [facility] [place] [facility] Body weight 2019-09-29 14:39:00 86.183 kg [facility] [place] [facility] BMI 2019-09-29 14:39:00 29.76 kg/m2 [facility] [place] [facility] Systolic blood 2019-06-16 13:09:00 153 mm[Hg] [facility] [place] [facility] Diastolic blood 2019-06-16 13:09:00 82 mm[Hg] [facility] rs[facility] [place] [facility] Respiratory rate 2019-06-16 13:09:00 18 /min [facility] [place] [facility] Body height 2019-06-16 13:09:00 170.2 cm [facility] [place] [facility] Body weight 2019-06-16 13:09:00 88.451 kg [facility] [place] [facility] BMI 2019-06-16 13:09:00 30.54 kg/m2 [facility] [place] [facility] Oxygen saturation in 2019-06-16 13:09:00 98 /min [facility] Arterial blood by [employer] Pulse oximetry Branch Systolic blood 2019-06-16 13:09:00 153 mm[Hg] [facility] [place] [facility] Diastolic blood 2019-06-16 13:09:00 82 mm[Hg] [facility]ive rs[facility] [place] [facility] Respiratory rate 2019-06-16 13:09:00 18 /min [facility] [place] [facility] Body height 2019-06-16 13:09:00 170.2 cm [facility] [place] [facility] Body weight 2019-06-16 13:09:00 88.451 kg [facility] [place] [facility] BMI 2019-06-16 13:09:00 30.54 kg/m2 [facility] [place] [facility] Oxygen saturation in 2019-06-16 13:09:00 98 /min [facility] Arterial blood by [facility] Pulse oximetry Branch Systolic blood 2019-06-15 17:26:00 190 mm[Hg] [facility] [place] [facility] Diastolic blood 2019-06-15 17:26:00 122 mm[Hg] [facility]ive rs[facility] [place] [facility] Heart rate 2019-06-15 17:26:00 97 /min [facility] [place] [facility] Body temperature 2019-06-15 17:26:00 36.56 Si[place]han [facility] [place] [facility] Respiratory rate 2019-06-15 17:26:00 16 /min [facility] [place] [facility] Body weight 2019-06-15 17:26:00 90.266 kg [facility] [place] [facility] BMI 2019-06-15 17:26:00 31.17 kg/m2 [facility] [place] [facility] Oxygen saturation in 2019-06-15 17:26:00 97 /min [facility]terial blood by [facility] Pulse oximetry Branch Systolic blood 2019-06-15 17:26:00 190 mm[Hg] Univer [facility] [place] [facility] Diastolic blood 2019-06-15 17:26:00 122 mm[Hg] [facility] [place] [facility] Heart rate 2019-06-15 17:26:00 97 /min [facility] [place] [facility] Body temperature 2019-06-15 17:26:00 36.56 Si[place]han [facility] [place] [facility] Respiratory rate 2019-06-15 17:26:00 16 /min [facility] [place] [facility] Body weight 2019-06-15 17:26:00 90.266 kg [facility] [place] [facility] BMI 2019-06-15 17:26:00 31.17 kg/m2 [facility] [place] [facility] Oxygen saturation in 2019-06-15 17:26:00 97 /min [facility] Arterial blood by [facility] Pulse oximetry Branch Body weight 2019 16:22:00 90.357 kg [facility] [place] [facility] BMI 2019 16:22:00 31.20 kg/m2 [facility] Oxygen saturation in 2019 16:22:00 96 /min [facility] of Arterial blood by [facility] Pulse oximetry Branch Systolic blood 2019 16:22:00 116 mm[Hg] [facility] Diastolic blood 2019 16:22:00 78 mm[Hg] [facility] Heart rate 2019 16:22:00 84 /min [facility] Body temperature 2019 16:22:00 37 Siobhan [facility] Respiratory rate 2019 16:22:00 17 /min [facility] Body height 2019 16:22:00 170.2 cm [facility] Body weight 2019 16:22:00 90.357 kg [facility] BMI 2019 16:22:00 31.20 kg/m2 [facility] Oxygen saturation in 2019 16:22:00 96 /min [facility] Arterial blood by [facility] Pulse oximetry Branch Systolic blood 2019 16:22:00 116 mm[Hg] [facility] Diastolic blood 2019 16:22:00 78 mm[Hg] [facility] Heart rate 2019 16:22:00 84 /min [facility] Body temperature 2019 16:22:00 37 Siobhan [facility] Respiratory rate 2019 16:22:00 17 /min [facility] Body height 2019 16:22:00 170.2 cm [facility] Heart rate 2019-01-25 00:00:00 79 /min [facility] Respiratory rate 2019-01-25 00:00:00 15 /min [facility] Systolic blood 2019-01-24 23:00:00 122 mm[Hg] [facility] Diastolic blood 2019-01-24 23:00:00 68 mm[Hg] [facility] Oxygen saturation in 2019-01-24 23:00:00 93 /min [facility] [place] [employer] [facility] Pulse oximetry Branch Body temperature 2019-01-24 20:15:00 36.94 Siobhan [facility] Body weight 2019-01-24 20:15:00 86.183 kg [facility] BMI 2019-01-24 20:15:00 28.89 kg/m2 [facility] Heart rate 2019-01-25 00:00:00 79 /min [facility] Respiratory rate 2019-01-25 00:00:00 15 /min [facility] Systolic blood 2019-01-24 23:00:00 122 mm[Hg] [facility] Diastolic blood 2019-01-24 23:00:00 68 mm[Hg] [facility] Oxygen saturation in 2019-01-24 23:00:00 93 /min [facility] Arterial blood by [facility] Pulse oximetry Branch Body temperature 2019-01-24 20:15:00 36.94 Siobhan [facility] Body weight 2019-01-24 20:15:00 86.183 kg [facility] BMI 2019-01-24 20:15:00 28.89 kg/m2 [facility] Systolic blood 2018-12-22 00:30:00 142 mm[Hg] [facility] Diastolic blood 2018-12-22 00:30:00 90 mm[Hg] [facility] Heart rate 2018-12-22 00:30:00 86 /min [facility] Respiratory rate 2018-12-22 00:30:00 18 /min [facility] Oxygen saturation in 2018-12-22 00:30:00 97 /min [facility] Arterial blood by [facility] Pulse oximetry Branch Body temperature 2018-12-21 21:07:00 37.11 Siobhan [facility] Body weight 2018-12-21 21:07:00 86.183 kg [facility] BMI 2018-12-21 21:07:00 28.89 kg/m2 [facility] Systolic blood 2018-12-22 00:30:00 142 mm[Hg] Univer sity of pressure [facility] Diastolic blood 2018-12-22 00:30:00 90 mm[Hg] Unive rsity of [facility] Heart rate 2018-12-22 00:30:00 86 /min [facility] Respiratory rate 2018-12-22 00:30:00 18 /min [facility] Oxygen saturation in 2018-12-22 00:30:00 97 /min [facility] Arterial blood by [facility] Pulse oximetry Branch Body temperature 2018-12-21 21:07:00 37.11 Siobhan [facility] Body weight 2018-12-21 21:07:00 86.183 kg [facility] BMI 2018-12-21 21:07:00 28.89 kg/m2 [facility] Body weight 2020-02-01 12:04:00 85.548 kg [facility] BMI 2020-02-01 12:04:00 29.54 kg/m2 [facility] Systolic blood 2020-02-01 11:09:39 138 mm[Hg] [facility] pressure Diastolic blood 2020-02-01 11:09:39 78 mm[Hg] [facility] pressure Heart rate 2020-02-01 11:09:39 62 /min [facility] Body temperature 2020-02-01 11:09:39 36.5 Siobhan [facility] Respiratory rate 2020-02-01 11:09:39 18 /min [facility] Oxygen saturation in 2020-02-01 11:09:39 98 /min [facility] Arterial blood by Pulse oximetry Body height 2020-01-28 19:00:00 170.2 cm [facility] Procedures Procedure Date / Time Performing Clinician Source Performed XR HAND 3+ VW RIGHT 2021-03-31 14:51:57 Ciera Seymour [facility] CONSENT/REFUSAL FOR 2021-03-31 14:35:47 Doctor Unassigned, [facility] DIAGNOSIS AND TREATMENT [place] [facility] XR CHEST 1 VW 2021-02-18 13:49:48 Johan Porras o f [facility] MAGNESIUM 2021-02-18 13:35:00 Singer [facility] TROPONIN I 2021-02-18 13:35:00 Singer [facility] COMP. METABOLIC PANEL 2021-02-18 13:35:00 Johan Porras [facility] ([id number]) Medical Branch LIPID PANEL ([id number])(TOTAL 2021-02-18 13:35:00 Johan Porras [facility] CHOLESTEROL, Medical Branch TRIGLYCERIDES, HDL) CBC WITH DIFF 2021-02-18 13:35:00 Singer [facility] D-DIMER 2021-02-18 13:35:00 Singer [facility] ADC,CLC OR LCC ONLY - 2021-02-18 13:35:00 Johan Porras [facility] INFLUENZA A & B DIRECT Medical [place] ANTIGEN N-TERMINAL PRO-BNP 2021-02-18 13:35:00 Singer Johan [facility] [place] COVID-19 (ID NOW RAPID 2021-02-18 13:35:00 Singer [facility] TESTING) Medical Branch CONSENT/REFUSAL FOR 2021-02-18 13:07:47 Doctor Wanda [facility] 1 VW 2021-01-24 14:27:39 Singer [facility] COMP. METABOLIC PANEL 2021-01-24 14:22:00 Johan Porras [facility] ([id number]) Medical Branch CBC WITH DIFF 2021-01-24 14:22:00 Singer [facility] URINALYSIS 2021-01-24 14:22:00 Singer [facility] COVID-19 (ID NOW RAPID 2021-01-24 13:30:00 Singer [facility] TESTING) Medical Branch NOTICE OF PRIVACY 2021-01-24 13:21:27 Doctor Wanda, [facility] PRACTICES [place] [facility] CONSENT/REFUSAL FOR 2021-01-24 13:20:24 Doctor Wanda [facility] DIAGNOSIS AND TREATMENT [place] [facility] LIPASE 2020-12-07 13:44:00 Lalito Shea [facility] COMP. METABOLIC PANEL 2020-12-07 13:44:00 Lalito Shea [facility] ([id number]) [facility] CBC WITH DIFF 2020-12-07 13:44:00 Lalito Shea [facility] URINALYSIS 2020-12-07 13:44:00 Lalito Shea [facility] ADC, CLC OR LCC ONLY - RSV 2020-12-07 13:44:00 Lalito Shea [facility] COVID-19 (ID NOW RAPID 2020-12-07 13:44:00 Lalito Shea [facility] TESTING) [facility] [place] URINE DRUG (IMMUNOASSAY) - 2020-12-07 13:44:00 Lalito Shea [facility] COMPREHENSIVE DRUG SCREEN Medica l Branch W/O REFLEX CONSENT/REFUSAL FOR 2020-12-07 13:20:39 Doctor Unassigned, [facility] DIAGNOSIS AND TREATMENT [place] [facility] COMP. METABOLIC PANEL 2020-10-26 09:48:00 Laura Pedraza [facility] ([id number]) Medical Branch MAGNESIUM 2020-10-25 14:14:00 Alvin Bcaa [facility] BASIC METABOLIC PANEL (NA, 2020-10-25 14:14:00 Alvin Baca [facility] K, CL, CO2, GLUCOSE, BUN, Medica l Branch CREATININE, CA) US ABDOMEN COMPLETE 2020-10-24 23:47:12 Alvin Baca [facility] TRANSTHORACIC ECHO (TTE) 2020-10-24 20:59:43 Alvin Baca [facility] COMPLETE W/ CONTRAST Medical Bra nch TROPONIN I 2020-10-24 16:13:00 Alvin Baca [facility] HB ECG ROUTINE & RHYTHM 2020-10-24 16:02:52 Alvin Baca [facility] CRITICAL CARE 2020-10-24 13:45:35 Lalito Shea [facility] FREE T4 2020-10-24 12:50:00 Lalito Shea [facility] COVID-19 (ID NOW RAPID 2020-10-24 12:43:00 Lalito Shea [facility] TESTING) [facility] [place] LAB ONLY COVID 2020-10-24 12:43:00 Lalito Shea [facility] INTERPRETATION [facility] URINE DRUG (IMMUNOASSAY) - 2020-10-24 11:52:00 Johan Porras [facility] COMPREHENSIVE DRUG SCREEN Medica Branch URINALYSIS 2020-10-24 11:52:00 Johan Porras [facility] CT CHEST PULMONARY 2020-10-24 11:46:10 Johan Porras [facility] ANGIOGRAM Medical Branch POCT GLUCOSE (AUTOMATED) 2020-10-24 11:19:00 Johan Porras [facility] CREATINE KINASE 2020-10-24 11:18:00 Lalito Shea [facility] LIPASE 2020-10-24 11:18:00 Lalito Shea [facility] MAGNESIUM 2020-10-24 11:18:00 Alvin Baca [facility] TROPONIN I 2020-10-24 11:18:00 Johan Porras [facility] THYROID STIMULATING 2020-10-24 11:18:[address] [facility] HORMONE [facility] Branch COMP. METABOLIC PANEL 2020-10-24 11:18:[address] [facility] ([id number]) Medical Branch ETHANOL 2020-10-24 11:18:00 Lalito Shea [facility] CBC WITH DIFF 2020-10-24 11:18:00 Johan Porras [facility] PROTHROMBIN TIME / INR 2020-10-24 11:18:00 Johan Porras [facility] D-DIMER 2020-10-24 11:18:00 Singer [facility] ACTIVATED PARTIAL THRMPLAS 2020-10-24 11:18:00 Johan Porras [facility] N-TERMINAL PRO-BNP 2020-10-24 11:18:00 Johan Porras [facility] HB ECG ROUTINE & RHYTHM 2020-10-24 11:12:38 Johan Porras [facility] EMERGENCY DEPARTMENT 2020-10-24 05:01:00 Doctor Unassigned, [facility] DOCUMENTS [place] [facility] URINALYSIS 2020-07-28 18:29:00 Lalito Shea [facility] ADC / LCC - DRUG SCREEN 2020-07-28 18:29:00 Lalito Shea [facility] TRIAGE [facility] [place] TROPONIN I 2020-07-28 18:23:00 Lalito Shea [facility] FREE T4 2020-07-28 18:23:00 Lalito Shea [facility] THYROID STIMULATING 2020-07-28 18:23:[address] [facility] HORMONE [facility] HEPATIC FUNCTION PANEL 2020-07-28 18:23:00 Lalito Shea [facility] ([id number]) (ALB,T.PRO,BILI Medical Branch T,BU/BC,ALT,AST,ALK PHOS) BASIC METABOLIC PANEL (NA, 2020-07-28 18:23:00 Lalito Shea [facility] K, CL, CO2, GLUCOSE, BUN, Medica l Branch CREATININE, CA) CBC WITH DIFF 2020-07-28 18:23:00 Lalito Shea [facility] PROTHROMBIN TIME / INR 2020-07-28 18:23:00 Lalito Shea [facility] ACTIVATED PARTIAL THRMPLAS 2020-07-28 18:23:00 Lalito Shea [facility] N-TERMINAL PRO-BNP 2020-07-28 18:23:00 Lalito Shea [facility] COVID-19 (ID NOW RAPID 2020-07-28 18:23:00 Lalito Shea [facility] TESTING) Medical Branch HB ECG ROUTINE & RHYTHM 2020-07-28 18:15:15 Lalito Shea [facility] STRIP [facility] CONSENT/REFUSAL FOR 2020-07-28 18:07:43 Doctor Unassigned, [facility] DIAGNOSIS AND TREATMENT [place] [facility] TROPONIN I 2020-06-30 15:28:00 Lalito Shea [facility] TROPONIN I 2020-06-30 13:36:00 Lalito Shea [facility] BASIC METABOLIC PANEL (NA, 2020-06-30 12:02:00 Ciera Seymour [facility] K, CL, CO2, GLUCOSE, BUN, Medica l Branch CREATININE, CA) CBC WITH DIFF 2020-06-30 12:02:00 Ciera Seymour [facility] XR ANKLE <3 VW LEFT 2020-06-23 20:29:12 Shelley [facility] XR FOOT <3 VW LEFT 2020-06-23 20:29:12 Shelley Shahid [facility] NOTICE OF PRIVACY 2020-06-23 19:41:37 Doctor Unassigned, [facility] PRACTICES [place] [facility] [place] CONSENT/REFUSAL FOR 2020-06-23 19:41:09 Doctor Unassigned, [facility] DIAGNOSIS AND TREATMENT [place] [facility] HEMOGLOBIN A1C 2020-01-29 11:10:00 [facility] LIPID PANEL 2020-01-29 11:10:00 [facility] HEPATITIS ACUTE PANEL 2020-01-29 11:10:00 [facility] GGT 2020-01-29 11:10:00 [facility] MAGNESIUM LEVEL 2020-01-29 11:10:00 [facility] HIV AG/AB COMBINATION 2020-01-29 11:10:00 [facility] XR CHEST 1 VW 2019-11-10 04:30:10 Clovis Thomas [facility] TROPONIN I 2019-11-10 04:20:00 Clovis Thomas [facility] COMP. METABOLIC PANEL 2019-11-10 04:20:00 Clovis Thomas [facility] ([id number]) [facility] CBC WITH DIFFERENTIAL 2019-11-10 04:20:00 Clovis Thomas [facility] PROTHROMBIN TIME / INR 2019-11-10 04:20:00 Clovis Thomas [facility] ACTIVATED PARTIAL THRMPLAS 2019-11-10 04:20:00 Clovis Thomas [facility] EKG-12 LEAD 2019-11-10 04:19:36 Clovis Thomas [facility] COMP. METABOLIC PANEL 2019-09-29 15:23:00 Singer [facility] ([id number]) [facility] [place] CBC WITH DIFFERENTIAL 2019-09-29 15:23:00 Singer [facility] URINALYSIS 2019-09-29 15:23:00 Porras, [facility] CONSENT/REFUSAL FOR 2019-09-29 14:19:48 Doctor Unassigned, [facility] DIAGNOSIS AND TREATMENT [place] [facility] NOTICE OF PRIVACY 2019-09-29 14:19:33 Doctor Unassigned, [facility] PRACTICES [place] [facility] EKG-12 LEAD 2019-06-16 13:22:02 Lalito Shea [facility] LIPASE 2019-06-16 13:22:00 Lalito Shea [facility] TROPONIN I 2019-06-16 13:22:00 Lalito Shea [facility] COMP. METABOLIC PANEL 2019-06-16 13:22:00 Lalito Shea [facility] ([id number]) [facility] CBC WITH DIFFERENTIAL 2019-06-16 13:22:00 Lalito Shea [facility] PROTHROMBIN TIME / INR 2019-06-16 13:22:00 Lalito Shea [facility] ACTIVATED PARTIAL THRMPLAS 2019-06-16 13:22:00 Lalito Shea [facility] XR CHEST 1 VW 2019-06-15 18:27:52 Shelley Shahid [facility] MAGNESIUM 2019-06-15 18:22:00 Shelley Shahid [facility] TROPONIN I 2019-06-15 18:22:00 Shelley Shahid Margarita [facility] COMP. METABOLIC PANEL 2019-06-15 18:22:00 Shelley Shahid [facility] ([id number]) [facility] CBC WITH DIFFERENTIAL 2019-06-15 18:22:00 Shelley Shahid [facility] EKG-12 LEAD 2019-06-15 18:10:41 Shelley Shahid [facility] NOTICE OF PRIVACY 2019-06-15 17:21:46 Doctor Unassigned, [facility] PRACTICES [place] [facility] CONSENT/REFUSAL FOR 2019-06-15 17:16:40 Doctor Unassigned, [facility] DIAGNOSIS AND TREATMENT [place] [facility] POCT GRP A STREP 2019 [facility]:24[facility] POCT FLU A AND B 2019 16:23:00 Levon [facility] ([facility]) [facility] NO SHOW OR MISSED 2019 16:08:34 Doctor Unassigned, [facility] APPOINTMENT POLICY [place] [facility] h ACKNOWLEDGEMENT LIPASE 2019-01-24 21:38:00 Jerry Martin [facility] TROPONIN I 2019-01-24 21:38:00 Jerry Martin [facility] COMP. METABOLIC PANEL 2019-01-24 21:38:00 Jerry Martin [facility] ([id number]) [facility] URINALYSIS 2019-01-24 21:38:00 Jerry Martin [facility] ADC / LCC - DRUG SCREEN 2019-01-24 21:38:00 Jerry Martin [facility] TRIAGE Medical Branch CBC WITH DIFFERENTIAL 2019-01-24 21:38:00 Jerry Martin [facility] EKG-12 LEAD 2019-01-24 21:01:42 Jerry Martin [facility] CONSENT/REFUSAL FOR 2019-01-24 19:55:39 Doctor Unassigned, [facility] DIAGNOSIS AND TREATMENT [place] [facility] XR ABDOMEN ACUTE SERIES 2018-12-21 23:23:19 Jeremiah Demond [facility] LIPASE 2018-12-21 22:19:00 Jeremiah Demond [facility] MAGNESIUM 2018-12-21 22:19:00 Jeremiah Demond [facility] COMP. METABOLIC PANEL 2018-12-21 22:19:00 Demond Daniels [facility] ([id number]) [facility] [place] CBC WITH DIFFERENTIAL 2018-12-21 22:19:00 Demond Daniels [facility] URINALYSIS 2018-12-21 22:19:00 Demond Daniels Elizabeth o f [facility] CONSENT/REFUSAL FOR 2018-12-21 20:57:44 Doctor Unassigned, [facility] DIAGNOSIS AND TREATMENT [place] [facility] Encounters Start End Encounter Admission Attending Care Care Encounter Source Date/Time Date/Time Type Type Clinicians Facility Department ID 2021-03-[address] [facility] [id number] Univers 05:38:42 ity of [facility] 2021-03-[address] [facility] [id number] Univers 23:00:35 ity of [facility] 2021-03-[address] [facility] [id number] Univers 11:56:05 ity of [facility] 2021-03-[address] [facility] [id number] Univers 01:30:29 ity of [facility] 2021-03-10 [facility] [id number] Univers 07:20:38 ity of [facility] 2021-03-[address] [facility] [id number] Univers 00:13:36 ity of [facility] 2021-03-[address] [facility] [id number] Univers 23:32:17 ity of [facility] 2021-03-08 [facility] [id number] Univers 04:08:07 ity of [facility] 2021-03-08 [facility] [id number] Univers 00:53:49 ity of [facility] 2021-03-07 [facility] [id number] Univers 21:49:21 ity of [facility] 2021-03-31 2021-03-31 Emergency [facility] [id number] Univers 08:36:00 10:17:00 CIERA ity of [facility] 2021-03-31 2021-03-31 Emergency [facility] [id number] Univers 08:36:00 10:17:00 Ciera PATTON [id number] ity [facility] [id number] [facility] [id number] [facility] 084 Branch 2021-02-18 2021-02-18 Emergency [facility] [id number] Univers 08:21:00 11:20:00 Johan [place] [id number] i [id number] [id number] [facility] 084 Branch 2021-01-24 2021-01-24 Emergency , [facility] [id number] Univers 08:32:00 10:23:00 Johan Sal [id number] i [id number] [id number] [facility] 084 Branch 2020-12-07 2020-12-07 Emergency [facility] [id number] Univers 08:25:00 10:28:00 Lalito Sal [id number] i [id number] [id number] [facility] 084 Branch 2020-10-30 2020-10-30 Transition Nisha Aguilar [id number] Univers 00:00:00 00:00:00 of Care Michelle Reid [id number] ity of [place]2.7.2.686 [place] [id number] [facility] 403 Branch 2020-10-24 2020-10-28 [facility] Johan Porras [facility] [id number] Univers 06:11:00 10:50:00 Encounter Alvin Baca [id number] [id number] [id number] [facility] 080 Branch 2020-07-28 2020-07-28 Emergency [facility] [id number] Univers 13:17:00 20:00:00 Lalito Patton [id number] i ty [id number] [id number] [facility] 084 Branch 2020-07-28 2020-07-28 Emergency Shabbir, [facility] [id number] 13:17:00 20:00:00 Lalitojorge Patton [id number] [place] [id number] [place] [id number] [facility] 2020-06-30 2020-06-30 [facility] [id number] [facility] 05:26:00 10:11:00 Ciera Patton [id number] ity of [place] [id number] [facility] [id number] [address] 2020-06-30 2020-06-30 [facility] [id number] 05:26:00 10:11:00 Ciera Patton [id number] [place] [id number] [place] [id number] [facility] 2020-06-23 2020-06-23 [facility] Shelley Shahid [facility] [id number] [facility] 13:46:00 15:46:00 Margarita Patton [id number] i ty of [place] [id number] [facility] [id number] [address] 2020-06-23 2020-06-23 [facility] Shelley Shahid [facility] [id number] 13:46:00 15:46:00 Margarita Patton [id number] [place] [id number] [place] [id number] [facility] 2020-01-28 2020-02-01 [facility] 1.2.840.1 [id number] Methodi 14:08:19 14:20:00 [facility] Nelly Ruiz [id number] 3.430.2.7 Hospit a [id number] l .8 2019-11-09 2019-11-10 [facility] [id number] [facility] 23:06:12 01:26:00 Clovis Patton [id number] i ty of [place] [id number] [facility] [id number] [address] 2019-11-09 2019-11-10 Emergency Theas, [facility] [id number] 23:06:12 01:26:00 Antonio [place] [id number] [place] 4.2.7.2.686 [place] [id number] [facility] 2019-09-29 2019-09-29 Emergency [facility] [id number] Univers 09:39:50 11:47:00 Johan [place] [id number] i ty of [place] [address] [place] [id number] 2019-09-29 2019-09-29 Emergency [facility] [id number] 09:39:50 11:47:00 Johan [place] [id number] [place] 4.2.7.2.686 [place] [id number] [facility] 2019-06-16 2019-06-16 Emergency [facility] [id number] Univers 07:08:27 08:57:00 Joesph Patton [id number] ity of [place] 4.2.7.2.[address] [place] [id number] 2019-06-16 2019-06-16 Emergency [facility] [id number] Univers 07:08:27 08:57:00 JOESPH ity [facility] 2019-06-16 2019-06-16 Emergency [facility] [id number] 07:08:27 08:57:00 Joesph [place] [id number] [place] [address] [place] [address] [id number] [facility] 2019-06-15 2019-06-15 Emergency ZehraShelley [facility] 1.2.840.114 [id number] Univers 11:30:00 13:30:00 Margarita [place] [id number] i ty of [place] 4.2.7.2.[address] [place] [address] [id number] [facility] 084 Branch 2019-06-15 2019-06-15 Emergency Shelley Shahid [facility] 1.2.840.114 [id number] 11:30:00 13:30:00 Margarita Patton [id number] [place] 4.2.7.2.686 [place] [id number] 2019-06-15 2019-06-15 Orders Doctor RAS [id number] [id number] Univers 00:00:00 00:00:00 Only Unassigned, KAY [id number] ity of [place] [facility] 4.2.7.2.686 Manfred as [id number] [facility] 009 Branch 2019-06-15 2019-06-15 Orders Doctor RAS 1.2.840.114 [id number] 00:00:00 00:00:00 Only Unassigned, KAY 350.1.13.10 [place] [facility] 4.2.7.2.686 [id number] [facility] 2019-06-06 2019-06-06 Letter Clinic, [facility] UNIVERSIT 1.2.840.114 [id number] Univers 00:00:00 00:00:00 (Out) Neurology [facility] [id number] ity of [facility] CLIN[facility] 4.2.7.2.686 [place] [id number] [facility] 092 [place] 2019-06-06 2019-06-06 Letter Clinic, [facility]ERS[facility] 1.2.840.114 [id number] 00:00:00 00:00:00 (Out) Neurology [facility] 350.1.13.10 Continuity CLINICS 4.2.7.2.686 [id number] [facility] 2019 2019 [place], [place] [facility] 1.2.840.114 [id number] [facility] 10:16:26 10:55:54 Care Unknown, Attending Health 350.1.13.10 ity of Surgical 4.2.7.2.686 Manfred as Specialti [phone] Fl dical es 370 [facility] 2019 2019 [place], [facility] 1.2.840.114 [id number] 10:16:26 10:55:54 Care July Health 350.1.13.10 Surgical 4.2.7.2.686 Special [id number] es 370 Sal 2019 2019 Orders Doctor RAS 1.2.840.114 [id number] [facility] 00:00:00 00:00:00 Only Unassigned, KAY 350.1.13.10 ity of [place] [facility] 4.2.7.2.686 Manfred as [phone] [address] 2019 2019 Orders Doctor RAS 1.2.840.114 [id number] 82 00:00:00 00:00:00 Only Unassigned, KAY 350.1.13.10 [place] [facility] 4.2.7.2.686 [id number] [facility] 2019-01-24 2019-01-24 [facility] 1.2.293.071 [id number] [facility] 15:49:15 22:27:00 Jerry Patton 350.1.13.10 i ty of [place] 4.2.7.2.686 [facility] [phone] [address] 2019-01-24 2019-01-24 [facility] 1.2.861.908 [id number] 15:49:15 22:27:00 Jerry Patton 350.1.13.10 [place] 4.2.7.2.686 [place] [phone] [facility] 2019-01-24 2019-01-24 Orders Doctor MCGINNIS 1.2.840.114 [id number] Univers 00:00:00 00:00:00 Only Unassigned, KAY 350.1.13.10 ity of [place] [facility] 4.2.7.2.686 Manfred as [phone] [address] 2019-01-24 2019-01-24 Orders Doctor MCGINNIS 1.2.840.114 [id number] 17 00:00:00 00:00:00 Only Unassigned, KAY 350.1.13.10 [place] [facility] 4.2.7.2.686 [id number] 009 2018-12-21 2018-12-21 [facility] [id number] [facility] 17:07:20 19:42:00 Demond Patton 350.1.13.10 i ty of [place].2.[place] [phone] [facility] [address] 2018-12-21 2018-12-21 Emergency Jeremiah, [facility] 1.2.306.433 [id number] 17:07:20 19:42:00 Demond Patton 350.1.13.10 [place] 4.2.7.2.686 [place] [phone] [facility] 2018-12-21 2018-12-21 Orders Doctor RAS 1.2.840.114 [id number] [facility] 00:00:00 00:00:00 Only Unassigned, KAY 350.1.13.10 ity of [place] [facility] 4.2.7.2.686 Man[place] as [phone] [facility] [address] 2018-12-21 2018-12-21 Orders Doctor MCGINNIS 1.2.840.114 [id number] 00:00:00 00:00:00 Only Unassigned, KAY 350.1.13.10 [place] [facility] 4.2.7.2.686 [id number] 009 Results Test Description Test Time Test Comments Results Result Comments Source TROPONIN I 2021-02-18 14:27:27 Test Item Value Reference Range Interpretation Comme nts TROPONIN I (test code = 0.002 ng/mL See_Comment [Au tomated message] The 9300914302) system which ge nerated this result tra nsmitted reference range : <=0.034. The reference r javier was not used to int erpret this result as normal/abnormal . TAMIKO (test code = TAMIKO) Reference (Normal) Range (defined by the 99th percentile reference limit): <= 0.034 ng/mL Note: Cardiac troponin begins to rise 3-4 hours after the onset of ischemia. Repeat in 4-6 hours if the sample was drawn within 3-4 hours of the onset of the symptom and found normal. Diagnosis of myocardial injury is made with acute changes in cTn concentrations with at least one serial sample above the 99th percentile upper reference limit (URL), taken together with the patient's clinical presentation. Biotin has been reported to cause a negative bias, interpret results relative to patient's use of biotin. Lab Interpretation Normal (test code = 03998-6) [id number] 14:25:35 Test Item Value Reference Interpretation Comments Range D-DIMER (test code = See_Comment [Autom ated 7400098506) message] The system which generated this result transmitted reference range : <0.41 ?g/mL (FEU). The reference range was not used to interpret this result as normal/abnormal . TAMIKO (test code = This test may be TAMIKO) used in conjunction with a clinical pretest probability (PTP) assessment model to exclude venous thromboembolism (VTE) in patients suspected of deep venous thrombosis (DVT) and pulmonary embolism (PE) A D-Dimer value less than 0.50 ?g/ml (FEU) has a negative predicative value of 96 to 100% (95% CI)and 97 to 100% (95% CI) as an aid in the diagnosis of deep vein thrombosis (DVT) and pulmonary embolism when there is low or moderate pretest probability of PE or DVT. D-Dimer values are expressed in initial fibrinogen equivalent units (FEU)" The assay results should be used with other information, including the clinical context, in forming a diagnosis. Lab Interpretation Normal (test code = 09254-0) [facility] [id number] 14:22:27 Test Item Value Reference Range Interpretation Comments NT-proBNP (test code 29 pg/mL See_Comment [Autom ated = 5538378206) message] The system which generated this result transmitted reference range : <=125. The reference range was not used to interpret this result as normal/abnormal . TAMIKO (test code = TAMIKO) Biotin has been reported to cause a negative bias, interpret results relative to patient's use of biotin. Lab Interpretation Normal (test code = 68459-7) [facility] SpringsLIPID PANEL ([id number])(TOTAL CHOLESTEROL, TRIGLYCERIDES, HDL)2021-02-18 14:14:32 Test Item Value Reference Range Interpretation Comments CHOL (test code = 209 mg/dL 120-200 H 5467416992) HDL (test code = 30 mg/dL >40 L 8028410619) HDLC RATIO (test code = See_Comment H [Au tomated message] 6363886199) The system TRAN.SL generated this result transmit luis reference range : <=5.0. The refe rence range was not u sed to interpret th is result as normal/abnormal . TRIG (test code = 143 mg/dL 30-170 7770692014) LDL CHOL (test code = 150 mg/dL See_Comment [Auto mated message] 16641-4) The system TRAN.SL generated this result transmit luis reference range : <=160. The refe rence range was not u sed to interpret th is result as normal/abnormal . VLDL (test code = 29 mg/dL 5-60 7228535874) Lab Interpretation (test Abnormal code = 65293-8) [facility]. METABOLIC PANEL (56004)2021-02-18 14:14:11 Test Item Value Reference Range Interpretation Comments NA (test code = 139 mmol/L 135-145 4947539845) K (test code = 4.7 mmol/L 3.5-5.0 9747920115) CL (test code = 104 mmol/L 98-108 8081957122) CO2 TOTAL (test code 30 mmol/L 23-31 = 7067699963) AGAP (test code = 2-16 7970391742) BUN (test code = 12 mg/dL 7-23 1052851265) GLUCOSE (test code = 102 mg/dL 70-110 3675593184) CREATININE (test code 0.78 mg/dL 0.60-1.25 = 8665941531) TOTAL BILI (test code 0.3 mg/dL 0.1-1.1 = 3964292798) CALCIUM (test code = 9.5 mg/dL 8.6-10.6 6780260419) T PROTEIN (test code 7.4 g/dL 6.3-8.2 = 0812559382) ALBUMIN (test code = 4.3 g/dL 3.5-5.0 5890051278) ALK PHOS (test code = 61 U/L 34-122 9518728631) ALTv (test code = 27 U/L 5-50 1742-6) AST(SGOT) (test code 26 U/L 13-40 = 5692004697) eGFR (test code = mL/min/1.73m2 0890033830) TAMIKO (test code = TAMIKO) Association of Glomerular Filtration Rate (GFR) and Staging of Kidney Disease* + + +- +| GFR (mL/min/1.73 m2) ?| With Kidney Damage ?| ?Without Kidney Damage+ ------+ ----+ ------+| ?>90 ?| ?Stage one ?| ? Normal ?+ -+ + -+| ?60-89 ?| ?Stage two ?| ? Decreased GFR ? + + +- +| ?30-59 ?| ?Stage three ?| ? Stage three ? + + +- +| ?15-29 ?| ?Stage four ? | ? Stage four ?+ -+ + -+| ?<15 (or dialysis) ? ?| ?Stage five ? | ? Stage five ?+ -+ + -+ *Each stage assumes the associated GFR level has been in effect for at least three months. ?Stages 1 to 5, with or without kidney disease, indicate chronic kidney disease. Notes: Determination of stages one and two (with eGFR >59mL/min/1.73 m2) requires estimation of kidney damage for at least three months as defined by structural or functional abnormalities of the kidney, manifested by either:Pathological abnormalities or Markers of kidney damage (including abnormalities in the composition of the blood or urine or abnormalities in imaging tests). [facility]2021-[facility]-11 14:14:11 Test Item Value Reference Range Interpretation Comments MAGNESIUM (test code = 0032139152) 1.8 mg/dL 1.7-2.4 Lab Interpretation (test code = Normal 59088-4) [facility] WITH [id number] 13:51:29 Test Item Value Reference Range Interpretation Comments WBC (test code = See_Comment [Automated message] 6690-2) The system TRAN.SL generated this result transmitted ref erence range: 4.20 - 1 0.70 10*3/?L. The re ference range was not u sed to interpret this result as normal/abnor mal. RBC (test code = See_Comment [Automated message] 789-8) The system TRAN.SL generated this result transmitted ref erence range: 4.26 - 5 .52 10*6/?L. The re ference range was not u sed to interpret this result as normal/abnor mal. HGB (test code = 13.5 g/dL 12.2-16.4 718-7) HCT (test code = 42.1 % 38.4-49.3 4544-3) MCV (test code = 91.5 fL 81.7-95.6 787-2) MCH (test code = 29.3 pg 26.1-32.7 785-6) MCHC (test code = 32.1 g/dL 31.2-35.0 786-4) RDW-SD (test code 43.3 fL 38.5-51.6 = 17550-8) RDW-CV (test code 13.0 % 12.1-15.4 = 788-0) PLT (test code = See_Comment [Automated message] 777-3) The system [employer] h generated this result transmitted ref erence range: 150 - 32 8 10*3/?L. The re ference range was not u sed to interpret this result as normal/abnor mal. MPV (test code = 10.2 fL 9.8-13.0 39183-3) NRBC/100 WBC (test See_Comment [Automat ed message] code = 9186704692) The syste m which generated this result transmitted ref erence range: 0.0 - 10 .0 /100 WBCs. The refer ence range was not u sed to interpret this result as normal/abnor mal. NRBC x10^3 (test <0.01 See_Comment [Automated message] code = 8532934134) The syste m which generated this result transmitted ref erence range: 10*3/?L. The reference range was not used to interpr et this result as normal/abnormal . GRAN MAT (NEUT) % 50.8 % (test code = 770-8) IMM GRAN % (test 0.70 % code = 9352018189) LYMPH % (test code 29.1 % = 736-9) MONO % (test code 12.4 % = 5905-5) EOS % (test code = 6.2 % 713-8) BASO % (test code 0.8 % = 706-2) GRAN MAT 3.71 10*3/uL 1.99-6.95 x10^3(ANC) (test code = 8426349849) IMM GRAN x10^3 0.05 10*3/uL 0.00-0.06 (test code = 2198498851) LYMPH x10^3 (test 2.13 10*3/uL 1.09-3.23 code = 731-0) MONO x10^3 (test 0.91 10*3/uL 0.36-1.02 code = 742-7) EOS x10^3 (test 0.45 10*3/uL 0.06-0.53 code = 711-2) BASO x10^3 (test 0.06 10*3/uL 0.01-0.09 code = 704-7) [facility] METABOLIC PANEL ([id number])2021-01-24 14:53:54 Test Item Value Reference Range Interpretation Comments NA (test code = 137 mmol/L 135-145 7464560748) K (test code = 4.5 mmol/L 3.5-5.0 3250842614) CL (test code = 100 mmol/L 98-108 0897748655) CO2 TOTAL (test code 29 mmol/L 23-31 = 3350246470) AGAP (test code = 2-16 5696358636) BUN (test code = 16 mg/dL 7-23 4659048036) GLUCOSE (test code = 94 mg/dL 70-110 2914512523) CREATININE (test code 0.86 mg/dL 0.60-1.25 = 0447698320) TOTAL BILI (test code 0.5 mg/dL 0.1-1.1 = 6160375934) CALCIUM (test code = 9.7 mg/dL 8.6-10.6 8662378473) T PROTEIN (test code 8.0 g/dL 6.3-8.2 = 9333049787) ALBUMIN (test code = 4.5 g/dL 3.5-5.0 2860705681) ALK PHOS (test code = 64 U/L 34-122 0904773029) ALTv (test code = 21 U/L 5-50 1742-6) AST(SGOT) (test code 37 U/L 13-40 = 9963199327) eGFR (test code = mL/min/1.73m2 9159274154) TAMIKO (test code = TAMIKO) Association of Glomerular Filtration Rate (GFR) and Staging of Kidney Disease* + + +- +| GFR (mL/min/1.73 m2) ?| With Kidney Damage ?| ?Without Kidney Damage+ ------+ ----+ ------+| ?>90 ?| ?Stage one ?| ? Normal ?+ -+ + -+| ?60-89 ?| ?Stage two ?| ? Decreased GFR ? + + +- +| ?30-59 ?| ?Stage three ?| ? Stage three ? + + +- +| ?15-29 ?| ?Stage four ? | ? Stage four ?+ -+ + -+| ?<15 (or dialysis) ? ?| ?Stage five ? | ? Stage five ?+ -+ + -+ *Each stage assumes the associated GFR level has been in effect for at least three months. ?Stages 1 to 5, with or without kidney disease, indicate chronic kidney disease. Notes: Determination of stages one and two (with eGFR >59mL/min/1.73 m2) requires estimation of kidney damage for at least three months as defined by structural or functional abnormalities of the kidney, manifested by either:Pathological abnormalities or Markers of kidney damage (including abnormalities in the composition of the blood or urine or abnormalities in imaging tests). [facility]. METABOLIC PANEL ([id number])2021-01-24 14:53:54 Test Item Value Reference Range Interpretation Comments NA (test code = 137 mmol/L 135-145 2422061920) K (test code = 4.5 mmol/L 3.5-5.0 7675674486) CL (test code = 100 mmol/L 98-108 6195574064) CO2 TOTAL (test code 29 mmol/L 23-31 = 0720270007) AGAP (test code = 2-16 2052696685) BUN (test code = 16 mg/dL 7-23 8758160938) GLUCOSE (test code = 94 mg/dL 70-110 5027790630) CREATININE (test code 0.86 mg/dL 0.60-1.25 = 7485156928) TOTAL BILI (test code 0.5 mg/dL 0.1-1.1 = 6026773341) CALCIUM (test code = 9.7 mg/dL 8.6-10.6 0516270454) T PROTEIN (test code 8.0 g/dL 6.3-8.2 = 8871677054) ALBUMIN (test code = 4.5 g/dL 3.5-5.0 6567867781) ALK PHOS (test code = 64 U/L 34-122 4974414948) ALTv (test code = 21 U/L 5-50 1742-6) AST(SGOT) (test code 37 U/L 13-40 = 6838967608) eGFR (test code = mL/min/1.73m2 5819783050) TAMIKO (test code = TAMIKO) Association of Glomerular Filtration Rate (GFR) and Staging of Kidney Disease* + + +- +| GFR (mL/min/1.73 m2) ?| With Kidney Damage ?| ?Without Kidney Damage+ ------+ ----+ ------+| ?>90 ?| ?Stage one ?| ? Normal ?+ -+ + -+| ?60-89 ?| ?Stage two ?| ? Decreased GFR ? + + +- +| ?30-59 ?| ?Stage three ?| ? Stage three ? + + +- +| ?15-29 ?| ?Stage four ? | ? Stage four ?+ -+ + -+| ?<15 (or dialysis) ? ?| ?Stage five ? | ? Stage five ?+ -+ + -+ *Each stage assumes the associated GFR level has been in effect for at least three months. ?Stages 1 to 5, with or without kidney disease, indicate chronic kidney disease. Notes: Determination of stages one and two (with eGFR >59mL/min/1.73 m2) requires estimation of kidney damage for at least three months as defined by structural or functional abnormalities of the kidney, manifested by either:Pathological abnormalities or Markers of kidney damage (including abnormalities in the composition of the blood or urine or abnormalities in imaging tests). [facility] WITH [id number] 14:39:54 Test Item Value Reference Range Interpretation Comments WBC (test code = See_Comment [Automated 6690-2) message] The sy stem which generated this result transmitted reference range : 4.20 - 10.70 10*3/?L. The reference range was not used to interpret this result as normal/abnormal . RBC (test code = See_Comment [Automated 789-8) message] The sy stem which generated this result transmitted reference range : 4.26 - 5.52 10*6/?L. The reference range was not used to interpret this result as normal/abnormal . HGB (test code = 14.4 g/dL 12.2-16.4 718-7) HCT (test code = 45.1 % 38.4-49.3 4544-3) MCV (test code = 90.7 fL 81.7-95.6 787-2) MCH (test code = 29.0 pg 26.1-32.7 785-6) MCHC (test code = 31.9 g/dL 31.2-35.0 786-4) RDW-SD (test code = 44.4 fL 38.5-51.6 29768-1) RDW-CV (test code = 13.2 % 12.1-15.4 788-0) PLT (test code = See_Comment [Automated 777-3) message] The sy stem which generated this result transmitted reference range : 150 - 328 10*3/ ?L. The reference r javier was not used to interpret this result as normal/abnormal . MPV (test code = 10.7 fL 9.8-13.0 20540-2) NRBC/100 WBC (test See_Comment [Automat ed code = 8154300662) message] The system which generated this result transmitted reference range : 0.0 - 10.0 /100 WBCs. The refer ence range was not u sed to interpret th is result as normal/abnormal . NRBC x10^3 (test code <0.01 See_Comment [Auto mated = 8393064302) message] The s ystem which generated this result transmitted reference range : 10*3/?L. The reference range was not used to interpret this result as normal/abnormal . GRAN MAT (NEUT) % 54.9 % (test code = 770-8) IMM GRAN % (test code 0.50 % = 9545849153) LYMPH % (test code = 24.0 % 736-9) MONO % (test code = 16.5 % 5905-5) EOS % (test code = 3.5 % 713-8) BASO % (test code = 0.6 % 706-2) GRAN MAT x10^3(ANC) 3.58 10*3/uL 1.99-6.95 (test code = 6774093662) IMM GRAN x10^3 (test 0.03 10*3/uL 0.00-0.06 code = 6616006804) LYMPH x10^3 (test code 1.57 10*3/uL 1.09-3.23 = 731-0) MONO x10^3 (test code 1.08 10*3/uL 0.36-1.02 H = 742-7) EOS x10^3 (test code = 0.23 10*3/uL 0.06-0.53 711-2) BASO x10^3 (test code 0.04 10*3/uL 0.01-0.09 = 704-7) Lab Interpretation Abnormal (test code = 61080-1) [facility] WITH [id number] 14:39:54 Test Item Value Reference Range Interpretation Comments WBC (test code = See_Comment [Automated 0990-2) message] The sy stem which generated this result transmitted reference range : 4.20 - 10.70 10*3/?L. The reference range was not used to interpret this result as normal/abnormal . RBC (test code = See_Comment [Automated 849-8) message] The sy stem which generated this result transmitted reference range : 4.26 - 5.52 10*6/?L. The reference range was not used to interpret this result as normal/abnormal . HGB (test code = 14.4 g/dL 12.2-16.4 718-7) HCT (test code = 45.1 % 38.4-49.3 4544-3) MCV (test code = 90.7 fL 81.7-95.6 787-2) MCH (test code = 29.0 pg 26.1-32.7 785-6) MCHC (test code = 31.9 g/dL 31.2-35.0 786-4) RDW-SD (test code = 44.4 fL 38.5-51.6 99885-3) RDW-CV (test code = 13.2 % 12.1-15.4 788-0) PLT (test code = See_Comment [Automated 777-3) message] The sy stem which generated this result transmitted reference range : 150 - 328 10*3/ ?L. The reference r javier was not used to interpret this result as normal/abnormal . MPV (test code = 10.7 fL 9.8-13.0 21141-3) NRBC/100 WBC (test See_Comment [Automat ed code = 8705619836) message] The system which generated this result transmitted reference range : 0.0 - 10.0 /100 WBCs. The refer ence range was not u sed to interpret th is result as normal/abnormal . NRBC x10^3 (test code <0.01 See_Comment [Auto mated = 6347964181) message] The s ystem which generated this result transmitted reference range : 10*3/?L. The reference range was not used to interpret this result as normal/abnormal . GRAN MAT (NEUT) % 54.9 % (test code = 770-8) IMM GRAN % (test code 0.50 % = 6031152544) LYMPH % (test code = 24.0 % 736-9) MONO % (test code = 16.5 % 5905-5) EOS % (test code = 3.5 % 713-8) BASO % (test code = 0.6 % 706-2) GRAN MAT x10^3(ANC) 3.58 10*3/uL 1.99-6.95 (test code = 3339392974) IMM GRAN x10^3 (test 0.03 10*3/uL 0.00-0.06 code = 9678911211) LYMPH x10^3 (test code 1.57 10*3/uL 1.09-3.23 = 731-0) MONO x10^3 (test code 1.08 10*3/uL 0.36-1.02 H = 742-7) EOS x10^3 (test code = 0.23 10*3/uL 0.06-0.53 711-2) BASO x10^3 (test code 0.04 10*3/uL 0.01-0.09 = 704-7) Lab Interpretation Abnormal (test code = 05066-2) [facility]ASSA[facility] - COMPREHENSIVE DRUG SCREEN W/O [id number] 14:38:57 Test Item Value Reference Range Interpretation Comments AMPHET (test code = Negative Negative 2371101631) CLAUDIA U (test code = Negative Negative 2460574570) BENZO U (test code = Negative Negative 9682648941) Cocaine Metabolite (test Negative Negative code = 5120786029) METHADONE (test code = Negative Negative 8165418556) OPIATES (test code = Negative Negative 0238089804) PCP (test code = Negative Negative 6604562985) THC (test code = Negative Negative 0589652887) TAMIKO (test code = TAMIKO) Urine Drug Cutoff Ranges Cocaine: ? 150 ng/mLBenzodiazepines: ? ? 200 ng/mLMethadone: ? 300 ng/mLAmphetamine: ? 1,000 ng/mLOpiates: ? 300 ng/mLCannabinoids: ?50 ng/mLPhencyclidine: ? ? ? 25 ng/mLBarbiturates: ?200 ng/mL The results are to be used only for medical (i.e., treatment) purposes. Unconfirmed screening results must not be used for non-medical purposes (e.g., employment testing, legal testing). Lab Interpretation (test Normal code = 72207-4) [facility] (ID NOW RAPID TESTING)2020-12-07 14:31:11 Test Item Value Reference Range Interpretation Comments SARS-CoV-2 Rapid ID NOW Not Detected Not Detected (test code = 00373-1) TAMIKO (test code = TAMIKO) ID NOW COVID-19 Assay is an isothermal nucleic acid amplification test intended for the qualitative detection of nucleic acid from SARS-CoV-2 viral RNA in nasopharyngeal (SHOE PULLER) specimens. It is used under Emergency Use Authorization (EUA) by FDA. The limit of detection (LOD) of the assay is 125 Genome Equivalents/mL. A positive result is indicative of the presence of SARS-CoV-2 RNA. ?Clinical correlation with patient history and other diagnostic information is necessary to determine patient infection status. A negative (Not Detected) result does not preclude SARS-CoV-2 infection. In patients with clinical symptoms and other tests that are consistent with SARS-CoV-2 infection, negative results should be treated as presumptive negative and a new specimen should be tested with alternative PCR molecular test. Invalid: Please collect a new specimen for repeat patient testing if clinically indicated. Lab Interpretation Normal (test code = 10056-6) [facility] OR [facility] [id number] 14:23:50 Test Item Value Reference Range Interpretation Comments RSV Antigen (test code = 8073647537) Negative Negative Lab Interpretation (test code = Normal 99092-0) [facility]2021-07-30 14:10:55 Test Item Value Reference Range Interpretation Comments APPEARANCE (test code = Clear Clear 1130429260) COLOR (test code = Yellow Yellow 1918636910) PH (test code = 4.8-8.0 1968700529) SP GRAVITY (test code = 1.003-1.030 8490257091) GLU U QUAL (test code = Normal Normal 2284138449) BLOOD (test code = Negative Negative 4963449017) KETONES (test code = Negative Negative 5965204132) PROTEIN (test code = Negative Negative 2887-8) UROBILIN (test code = Normal Normal 3370395797) BILIRUBIN (test code = Negative Negative 8120385148) NITRITE (test code = Negative Negative 7074975843) LEUK GINO (test code = Negative Negative 4958349459) RBC/HPF (test code = See_Comment [Autom ated message] 2856964642) The system TRAN.SL generated this result transmitted ref erence range: 0 - 3 HP F. The reference range was not used to int erpret this result as normal/abnormal . WBC/HPF (test code = See_Comment [Autom ated message] 4580066549) The system TRAN.SL generated this result transmitted ref erence range: 0 - 5 HP F. The reference range was not used to int erpret this result as normal/abnormal . BACTERIA (test code = Negative Negative 2998315571) Lab Interpretation (test Normal code = 26900-5) [facility] METABOLIC PANEL ([id number])2020-12-07 14:10:04 Test Item Value Reference Range Interpretation Comments NA (test code = 142 mmol/L 135-145 0155210838) K (test code = 4.3 mmol/L 3.5-5.0 5196194880) CL (test code = 106 mmol/L 98-108 8226271388) CO2 TOTAL (test code = 23 mmol/L 23-31 8950813082) AGAP (test code = 2-16 9951484671) BUN (test code = 15 mg/dL 7-23 1978426598) GLUCOSE (test code = 94 mg/dL 70-110 7344780715) CREATININE (test code = 0.70 mg/dL 0.60-1.25 4092858935) TOTAL BILI (test code = 0.5 mg/dL 0.1-1.5 6554599821) CALCIUM (test code = 9.7 mg/dL 8.6-10.6 8333504984) T PROTEIN (test code = 8.3 g/dL 6.3-8.2 H 0808174907) ALBUMIN (test code = 4.8 g/dL 3.5-5.0 7496575262) ALK PHOS (test code = 62 U/L 34-122 9583491865) ALTv (test code = 31 U/L 5-50 1742-6) AST(SGOT) (test code = 84 U/L 13-40 H 3832708061) eGFR (test code = mL/min/1.73m2 4005181339) TAMIKO (test code = TAMIKO) Association of Glomerular Filtration Rate (GFR) and Staging of Kidney Disease* + --+ --+ ------+| GFR (mL/min/1.73 m2) ?| With Kidney Damage ?| ?Without Kidney Damage+ --------+ --------+ +| ?>90 ?| ?Stage one ?| ? Normal ?+ ---+ ---+ -------+| ?60-89 ?| ?Stage two ?| ? Decreased GFR ? + --+ --+ ------+| ?30-59 ?| ?Stage three ?| ? Stage three ? + --+ --+ ------+| ?15-29 ?| ?Stage four ? | ? Stage four ?+ ---+ ---+ -------+| ?<15 (or dialysis) ? ?| ?Stage five ? | ? Stage five ?+ ---+ ---+ -------+ *Each stage assumes the associated GFR level has been in effect for at least three months. ?Stages 1 to 5, with or without kidney disease, indicate chronic kidney disease. Notes: Determination of stages one and two (with eGFR >59mL/min/1.73 m2) requires estimation of kidney damage for at least three months as defined by structural or functional abnormalities of the kidney, manifested by either:Pathological abnormalities or Markers of kidney damage (including abnormalities in the composition of the blood or urine or abnormalities in imaging tests). Lab Interpretation Abnormal (test code = 75844-5) [facility] 14:09:48 Test Item Value Reference Range Interpretation Comments LIPASE (test code = 3584138288) 171 U/L 0-220 Lab Interpretation (test code = Normal 47181-6) [facility] WITH [id number] 13:59:24 Test Item Value Reference Range Interpretation Comments WBC (test code = See_Comment [Automated message] 6690-2) The system TRAN.SL generated this result transmitted ref erence range: 4.20 - 1 0.70 10*3/?L. The re ference range was not u sed to interpret this result as normal/abnor mal. RBC (test code = See_Comment [Automated message] 789-8) The system TRAN.SL generated this result transmitted ref erence range: 4.26 - 5 .52 10*6/?L. The re ference range was not u sed to interpret this result as normal/abnor mal. HGB (test code = 14.5 g/dL 12.2-16.4 718-7) HCT (test code = 45.2 % 38.4-49.3 4544-3) MCV (test code = 90.9 fL 81.7-95.6 787-2) MCH (test code = 29.2 pg 26.1-32.7 785-6) MCHC (test code = 32.1 g/dL 31.2-35.0 786-4) RDW-SD (test code 45.8 fL 38.5-51.6 = 48812-4) RDW-CV (test code 13.5 % 12.1-15.4 = 788-0) PLT (test code = See_Comment [Automated message] 777-3) The system whic h generated this result transmitted ref erence range: 150 - 32 8 10*3/?L. The re ference range was not u sed to interpret this result as normal/abnor mal. MPV (test code = 11.0 fL 9.8-13.0 45812-5) NRBC/100 WBC (test See_Comment [Automat ed message] code = 4368804983) The syste m which generated this result transmitted ref erence range: 0.0 - 10 .0 /100 WBCs. The refer ence range was not u sed to interpret this result as normal/abnor mal. NRBC x10^3 (test <0.01 See_Comment [Automated message] code = 5662090856) The syste m which generated this result transmitted ref erence range: 10*3/?L. The reference range was not used to interpr et this result as normal/abnormal . GRAN MAT (NEUT) % 47.3 % (test code = 770-8) IMM GRAN % (test 0.20 % code = 0196494575) LYMPH % (test code 33.4 % = 736-9) MONO % (test code 13.0 % = 5905-5) EOS % (test code = 5.2 % 713-8) BASO % (test code 0.9 % = 706-2) GRAN MAT 3.08 10*3/uL 1.99-6.95 x10^3(ANC) (test code = 3412080133) IMM GRAN x10^3 <0.03 0.00-0.06 (test code = 1627795126) LYMPH x10^3 (test 2.18 10*3/uL 1.09-3.23 code = 731-0) MONO x10^3 (test 0.85 10*3/uL 0.36-1.02 code = 742-7) EOS x10^3 (test 0.34 10*3/uL 0.06-0.53 code = 711-2) BASO x10^3 (test 0.06 10*3/uL 0.01-0.09 code = 704-7) [facility] COVID [id number] 15:23:58COVID DMT InterpretationInterpretation/Recommendations: Molecular NAAT Tests for Active Infection with the SARS-CoV-2 Virus: The patient has currently tested negative for the SARS-CoV-2 virus that causes COVID-19 illness. This most likely indicates that the patient does not have an active infection with the SARS-CoV-2 virus. However, infection is not completely ruled out as the false negative rate for molecular NAAT testing using a nasopharyngeal sample can be up to 30%, mostly dependent on the timing of sample collection in relation to illness onset and any deficiencies in sampling techniques. If the patient has symptoms concerning for COVID-19 illness, a repeat NAAT test (PCR, Rapid ID Now, etc.) should be performed, at which time the SARS-CoV-2 virus - if present - may have reached a detectable viral load (usually peaking by the end of the first week of symptoms). Tests for IgM and/or IgGAntibodies to the SARS-CoV-2 Virus: If the patient develops COVID-19 illness in the future, testingfor IgM and IgG antibodies approximately 3 weeks after illness onset will likely indicate if the patient has produced antibodies to the SARS-CoV-2 virus. However, some patients may take longer to develop detectable antibodies, while some patients who were infected with SARS-CoV-2 may never develop antibodies. While antibodies to SARS-CoV-2 may provide some degree of immunity, at this time the strength and duration of the antibody response is unknown. Interpretation Result Comments:These interpretation comments are based upon all COVID-19 testing the patient has had at [facility], including molecular NAAT testing (more commonly known as PCR testing and Rapid ID Now testing) and antibody testing. It does not take into account any testing that a patient has had outside of the [facility] medical record. [facility] LABORATORY SERVICESCOVID Resul [id number] Rapid ID NOW (no units) ? ? Date ? Value ? 10/24/2020 ? Not Detected ? ? ? 07/28/2020 ? Not Detected ? [facility] COMP. METABOLIC PANEL ([id number])2020-10-26 12:44:29 Test Item Value Reference Range Interpretation Comments NA (test code = 135 mmol/L 135-145 9609967683) K (test code = 4.2 mmol/L 3.5-5.0 6184789809) CL (test code = 101 mmol/L 98-108 1176870058) CO2 TOTAL (test code = 25 mmol/L 23-31 5274703558) AGAP (test code = 2-16 7236719022) BUN (test code = 7 mg/dL 7-23 7962950964) GLUCOSE (test code = 84 mg/dL 70-110 1259131125) CREATININE (test code = 0.69 mg/dL 0.60-1.25 5224118475) TOTAL BILI (test code = 0.8 mg/dL 0.1-1.6 0806894785) CALCIUM (test code = 9.0 mg/dL 8.6-10.6 4198533065) T PROTEIN (test code = 6.3 g/dL 6.3-8.2 5291777595) ALBUMIN (test code = 3.5 g/dL 3.5-5.0 9247946128) ALK PHOS (test code = 83 U/L 34-122 6986526405) ALTv (test code = 37 U/L 5-50 1742-6) AST(SGOT) (test code = 45 U/L 13-40 H 0648354952) eGFR (test code = mL/min/1.73m2 8017294918) TAMIKO (test code = TAMIKO) Association of Glomerular Filtration Rate (GFR) and Staging of Kidney Disease* + --+ --+ ------+| GFR (mL/min/1.73 m2) ?| With Kidney Damage ?| ?Without Kidney Damage+ --------+ --------+ +| ?>90 ?| ?Stage one ?| ? Normal ?+ ---+ ---+ -------+| ?60-89 ?| ?Stage two ?| ? Decreased GFR ? + --+ --+ ------+| ?30-59 ?| ?Stage three ?| ? Stage three ? + --+ --+ ------+| ?15-29 ?| ?Stage four ? | ? Stage four ?+ ---+ ---+ -------+| ?<15 (or dialysis) ? ?| ?Stage five ? | ? Stage five ?+ ---+ ---+ -------+ *Each stage assumes the associated GFR level has been in effect for at least three months. ?Stages 1 to 5, with or without kidney disease, indicate chronic kidney disease. Notes: Determination of stages one and two (with eGFR >59mL/min/1.73 m2) requires estimation of kidney damage for at least three months as defined by structural or functional abnormalities of the kidney, manifested by either:Pathological abnormalities or Markers of kidney damage (including abnormalities in the composition of the blood or urine or abnormalities in imaging tests). Lab Interpretation Abnormal (test code = 54204-0) [facility] SpringsMAGNESIUM2021-06-17 15:46:06 Test Item Value Reference Range Interpretation Comments MAGNESIUM (test code = 8490597714) 1.4 mg/dL 1.7-2.4 L Lab Interpretation (test code = Abnormal 63673-1) [facility] SpringsBAS[facility] METABOLIC PANEL (NA, K, CL, CO2, GLUCOSE, BUN, CREATININE, CA)2020-10-25 15:45:46 Test Item Value Reference Range Interpretation Comments NA (test code = 135 mmol/L 135-145 6240369080) K (test code = 3.1 mmol/L 3.5-5.0 L 4219891077) CL (test code = 106 mmol/L 98-108 3219967847) CO2 TOTAL (test code = 24 mmol/L 23-31 7842173844) AGAP (test code = 2-16 1650892016) BUN (test code = 4 mg/dL 7-23 L 2921736354) GLUCOSE (test code = 99 mg/dL 70-110 2735193572) CREATININE (test code = 0.61 mg/dL 0.60-1.25 4262436529) CALCIUM (test code = 7.4 mg/dL 8.6-10.6 L 9363227804) eGFR (test code = mL/min/1.73m2 4308177830) TAMIKO (test code = TAMIKO) Association of Glomerular Filtration Rate (GFR) and Staging of Kidney Disease* + --+ --+ ------+| GFR (mL/min/1.73 m2) ?| With Kidney Damage ?| ?Without Kidney Damage+ --------+ --------+ +| ?>90 ?| ?Stage one ?| ? Normal ?+ ---+ ---+ -------+| ?60-89 ?| ?Stage two ?| ? Decreased GFR ? + --+ --+ ------+| ?30-59 ?| ?Stage three ?| ? Stage three ? + --+ --+ ------+| ?15-29 ?| ?Stage four ? | ? Stage four ?+ ---+ ---+ -------+| ?<15 (or dialysis) ? ?| ?Stage five ? | ? Stage five ?+ ---+ ---+ -------+ *Each stage assumes the associated GFR level has been in effect for at least three months. ?Stages 1 to 5, with or without kidney disease, indicate chronic kidney disease. Notes: Determination of stages one and two (with eGFR >59mL/min/1.73 m2) requires estimation of kidney damage for at least three months as defined by structural or functional abnormalities of the kidney, manifested by either:Pathological abnormalities or Markers of kidney damage (including abnormalities in the composition of the blood or urine or abnormalities in imaging tests). Lab Interpretation Abnormal (test code = 06379-2) [facility] ABDOMEN [id number] 23:59:57No evidence of acute sonographic abnormalities in the abdomen. RL: 135 ORDERING PHYSICIAN: ?ALVIN FLANAGAN HISTORY: Abdominal pain. Alcohol withdrawal COMPARISON: none Permanently recorded sonographic images were stored in the PACs system. FINDINGS: Liver is normal in echotexture without distinct focal sonographicabnormalities seen. There is no intrahepatic biliary dilatation. Thegallbladder is normal without stones or sludge. The common bile ductmeasures 5.6 mm. ? The pancreatic head and body appear normal. The tail waspoorly visualized. The spleen is normal. The right kidney measures 13.9 x4.2 x 6.4 cm, and the left kidney measures 13.0 x 5.6 x 6.5 cm. Limitedevaluation of the kidneys is unremarkable. ? No free fluid is seen in theabdomen. Color imaging demonstrates normal hepatopetal flow within the main portalvein. ?Normal color flow is seen in the IVC. ?The aorta is normal incaliber. Pulse color doppler examination demonstrates a normal portalvenous waveform in the main portal vein. [facility], Radiant Results Inft User - 10/24/2020 7:01 PM CDT ORDERING PHYSICIAN: ALVIN BACA HISTORY: Abdominal pain. Alcohol withdrawalCOMPARISON: nonePermanently recorded sonographicimages were stored in the PACs system. FINDINGS:Liver is normal in echotexture without distinct focal sonographicabnormalities seen. There is no intrahepatic biliary dilatation. Thegallbladder is normal without stones or sludge. The common bile ductmeasures 5.6 mm. The pancreatic head and body appear normal. The tail waspoorly visualized. The spleen is normal. The right kidney measures 13.9 x4.2 x 6.4 cm, and the left kidney measures 13.0 x 5.6 x 6.5 cm. Limitedevaluation of the kidneys is unremarkable. No free fluid is seen in theabdomen.Color imaging demonstrates normal hepatopetal flow within the main portalvein. Normal color flow is seen in the IVC. The aorta is normal incaliber. Pulse color doppler examination demonstrates a normal portalvenous waveform in the main portal vein.IMPRESSIONNo evidence of acute sonographic abnormalities in the abdomen.RL: 135 [facility] SpringsKUSHALFORMERLY [facility] DARLINGTONALEJANDRO [id number] 17:24:18 Test Item Value Reference Range Interpretation Comments TROPONIN I (test 0.007 ng/mL See_Comment [Automated code = 4709263184) message] The system which generated this result transmitted reference range : <=0.034. The reference range was not used to interpret this result as normal/abnormal . TAMIKO (test code = Equal or Less than TAMIKO) 0.034 ng/ml---Normal ?Note: Cardiac troponin begins to rise 3-4 hours after the onset of ischemia. Repeat in 4-6 hours if the sample was drawn within 3-4 hours of the onset of the symptom and found normal. Between 0.035 and 0.120 ng/mL--- Borderline. Questionable myocardial injury or necrosis ? ?Note: Serial measurement may be necessary to confirm or exclude the diagnosis of myocardial injury or necrosis; Clinical correlation (symptoms, EKGs, imaging studies, and others) required; Repeat in 4-6 hours if clinically indicated. ? Equal or Higher than 0.121 ng/mL---Abnormal. Myocardial Injury or Necrosis Likely ? Biotin has been reported to cause a negative bias, interpret results relative to patient's use of biotin. ? Lab Interpretation Normal (test code = 65816-2) [facility] SpringsMAGNESIUM2021-06-16 14:02:13 Test Item Value Reference Range Interpretation Comments MAGNESIUM (test code = 2144747842) 1.9 mg/dL 1.7-2.4 Lab Interpretation (test code = Normal 23713-2) [facility] SpringsCritical [id number] 13:45:35Lalito Shea MD ? ? 10/24/2020 ?8:45 AMCritical CarePerformed by: Lalito Shea MDAuthorized by: Lalito Shea MD Critical care provider statement: ?Critical care time (minutes): ?45 ?Critical care was necessary to treat or prevent imminent or life-threatening deterioration of the followingconditions: ?Metabolic crisis ?Critical care was time spent personally by me on the following activities: ?Ordering and performing treatments and interventions, ordering and review of laboratory studies, re-evaluation of patient's condition, blood draw for specimens, evaluation of patient's response to treatment and examination of patientUnMatagorda Regional Medical CenterFR [id number] 13:37:55 Test Item Value Reference Range Interpretation Comments FREE T4 (test code = See_Comment [Autom ated message] 5424341267) The system TRAN.SL generated this result transmitted ref erence range: 0.78 - 2 .20 ng/dL:. The ref erence range was not u sed to interpret this result as normal/abnor mal. Lab Interpretation (test Normal code = 26994-4) [facility] SpringsTHYROID STIMULATING [id number] 13:21:08 Test Item Value Reference Range Interpretation Comments TSH (test code = See_Comment [Automated message] 6144744253) The system TRAN.SL generated this result transmitted ref erence range: 0.45 - 4 .70 mIU/L. The refe rence range was not u sed to interpret this result as normal/abnor mal. Lab Interpretation (test Normal code = 24003-9) [facility] SpringsCOVID-19 (ID NOW RAPID TESTING)2020-10-24 13:06:12 Test Item Value Reference Range Interpretation Comments SARS-CoV-2 Rapid ID NOW Not Detected Not Detected (test code = 75439-1) TAMIKO (test code = TAMIKO) ID NOW COVID-19 Assay is an isothermal nucleic acid amplification test intended for the qualitative detection of nucleic acid from SARS-CoV-2 viral RNA in nasopharyngeal (SHOE PULLER) specimens. It is used under Emergency Use Authorization (EUA) by FDA. The limit of detection (LOD) of the assay is 125 Genome Equivalents/mL. A positive result is indicative of the presence of SARS-CoV-2 RNA. ?Clinical correlation with patient history and other diagnostic information is necessary to determine patient infection status. A negative (Not Detected) result does not preclude SARS-CoV-2 infection. In patients with clinical symptoms and other tests that are consistent with SARS-CoV-2 infection, negative results should be treated as presumptive negative and a new specimen should be tested with alternative PCR molecular test. Invalid: Please collect a new specimen for repeat patient testing if clinically indicated. Lab Interpretation Normal (test code = 85287-3) [facility] SpringsTROPONIN [id number] 13:00:47 Test Item Value Reference Range Interpretation Comments TROPONIN I (test 0.017 ng/mL See_Comment [Automated code = 4504290646) message] The system which generated this result transmitted reference range : <=0.034. The reference range was not used to interpret this result as normal/abnormal . TAMIKO (test code = Equal or Less than TAMIKO) 0.034 ng/ml---Normal ?Note: Cardiac troponin begins to rise 3-4 hours after the onset of ischemia. Repeat in 4-6 hours if the sample was drawn within 3-4 hours of the onset of the symptom and found normal. Between 0.035 and 0.120 ng/mL--- Borderline. Questionable myocardial injury or necrosis ? ?Note: Serial measurement may be necessary to confirm or exclude the diagnosis of myocardial injury or necrosis; Clinical correlation (symptoms, EKGs, imaging studies, and others) required; Repeat in 4-6 hours if clinically indicated. ? Equal or Higher than 0.121 ng/mL---Abnormal. Myocardial Injury or Necrosis Likely ? Biotin has been reported to cause a negative bias, interpret results relative to patient's use of biotin. ? Lab Interpretation Normal (test code = 99462-8) [facility] SpringsN-TERMINAL [id number] 12:54:30 Test Item Value Reference Range Interpretation Comments NT-proBNP (test code 22 pg/mL See_Comment [Autom ated = 9936547099) message] The system which generated this result transmitted reference range : <=125. The reference range was not used to interpret this result as normal/abnormal . TAMIKO (test code = TAMIKO) Biotin has been reported to cause a negative bias, interpret results relative to patient's use of biotin. Lab Interpretation Normal (test code = 07368-7) [facility] SpringsETHANOL2021-06-16 12:51:47 Test Item Value Reference Range Interpretation Comments ALCOHOL (test code = 284 mg/dL 8056079250) TAMIKO (test code = TAMIKO) <10 Mkskbgqq22-500 Toxic>100 Depression of PURCHASE ANALYST>400 Fatalities Reported [facility] SpringsCREATINE [id number] 12:51:07 Test Item Value Reference Range Interpretation Comments CK (test code = 6863757976) 744 U/L 33-194 H Lab Interpretation (test code = Abnormal 47149-4) [facility] SpringsLIPASE2021-06-16 12:51:07 Test Item Value Reference Range Interpretation Comments LIPASE (test code = 5631953559) 92 U/L 0-220 Lab Interpretation (test code = Normal 81327-2) [facility]. METABOLIC PANEL (94632)2020-10-24 12:49:29 Test Item Value Reference Range Interpretation Comments NA (test code = 144 mmol/L 135-145 7652002962) K (test code = 3.5 mmol/L 3.5-5.0 3021667862) CL (test code = 98 mmol/L 98-108 2338427245) CO2 TOTAL (test code = 29 mmol/L 23-31 8241015129) AGAP (test code = 2-16 H 0208822794) BUN (test code = 7 mg/dL 7-23 4049876195) GLUCOSE (test code = 148 mg/dL 70-110 H 2546426937) CREATININE (test code = 0.84 mg/dL 0.60-1.25 3532416724) TOTAL BILI (test code = 0.4 mg/dL 0.1-1.6 0730305593) CALCIUM (test code = 9.1 mg/dL 8.6-10.6 0028109569) T PROTEIN (test code = 7.6 g/dL 6.3-8.2 0027758386) ALBUMIN (test code = 4.5 g/dL 3.5-5.0 2515938578) ALK PHOS (test code = 89 U/L 34-122 9908416332) ALTv (test code = 49 U/L 5-50 1742-6) AST(SGOT) (test code = 75 U/L 13-40 H 0742700820) eGFR (test code = mL/min/1.73m2 3021142581) TAMIKO (test code = TAMIKO) Association of Glomerular Filtration Rate (GFR) and Staging of Kidney Disease* + --+ --+ ------+| GFR (mL/min/1.73 m2) ?| With Kidney Damage ?| ?Without Kidney Damage+ --------+ --------+ +| ?>90 ?| ?Stage one ?| ? Normal ?+ ---+ ---+ -------+| ?60-89 ?| ?Stage two ?| ? Decreased GFR ? + --+ --+ ------+| ?30-59 ?| ?Stage three ?| ? Stage three ? + --+ --+ ------+| ?15-29 ?| ?Stage four ? | ? Stage four ?+ ---+ ---+ -------+| ?<15 (or dialysis) ? ?| ?Stage five ? | ? Stage five ?+ ---+ ---+ -------+ *Each stage assumes the associated GFR level has been in effect for at least three months. ?Stages 1 to 5, with or without kidney disease, indicate chronic kidney disease. Notes: Determination of stages one and two (with eGFR >59mL/min/1.73 m2) requires estimation of kidney damage for at least three months as defined by structural or functional abnormalities of the kidney, manifested by either:Pathological abnormalities or Markers of kidney damage (including abnormalities in the composition of the blood or urine or abnormalities in imaging tests). Lab Interpretation Abnormal (test code = 02303-5) [facility] CHEST PULMONARY [id number] 12:44:11 No pulmonary embolism to the level of the subsegmental branches. Mild congestion/atelectatic changes are seen in the anterior right upperlobe, nonspecific but could be a sign of viral infection/bronchitis. Pleasecorrelate. Preliminary Report Dictated by Resident: Mary Campuzano MD., have reviewed this study and agree with theabove report.CT ANGIO CHEST WITH CONTRAST - PE PROTOCOL CLINICAL INDICATION: PE suspected, high pretest prob D-DIMER: None available COMPARISON: None. TECHNIQUE: Contrast enhanced spiral CT was performed with mul tiplanarreformatted images provided for review prior pulmonary angiogram protocol. FINDINGS: PULMONARY ARTERIES:Enhancement is adequate, and there is no acute or chronic pulmonaryembolism. Normal caliber main pulmonary trunk. CHEST:Lower neck/thyroid: Unremarkable. Lungs: Right upper lobe linear atelec tatic changes. Central airway: Unremarkable. Pleura: No pleural effusion, thickening or pneumothorax. Thoracic aorta and great vessels: Normal in diameter. Standard three-vesselaortic arch. Heart and pericardium: No detectable coronary artery calcifications.Unremarkable cardiac morphology and pericardium. Normal RV LV ratio. Lymph nodes: No enlarged thoracic lymph nodes. Mediastinum: Unremarkable. Thoracic spine and chest wall: No acute bony abnormality. Gynecomastia. Visualized upper abdomen: Unrema rkable. [facility], Radiant Results Inft User - 10/24/2020 7:[address] ANGIO CHEST WITH CONTRAST - PE PROTOCOLCLINICAL INDICATION: PE suspected, high pretest prob D-DIMER: None availableCOMPARISON: None.TECHNIQUE: Contrast enhanced spiral CT was performed with multiplanarreformatted images provided for review prior pulmonary angiogram protocol.FINDINGS:PULMONARY ARTERIES:Enhancement is adequate, and there is no acute or chronic pulmonaryembolism. Normal caliber main pulmonary trunk.CHEST:Lower neck/thyroid: Unremarkable.Lungs: Right upper lobe linear atelectatic changes.Central airway: Unremarkable.Pleura: No pleural effusion, thickening or pneumothorax.Thoracic aorta and great vessels: Normal in diameter. Standard three-vesselaortic arch.Heart and pericardium: No detectable coronary artery calcifications.Unr emarkable cardiac morphology and pericardium. Normal RV LV ratio.Lymph nodes: No enlarged thoracic lymph nodes.Mediastinum: Unremarkable.Thoracic spine and chest wall: No acute bony abnormality. Gynecomastia.Visualized upper abdomen: Unremarkable. IMPRESSIONNo pulmonary embolism to the level of the subsegmental branches.Mild congestion/atelectatic changes are seen in theanterior right upperlobe, nonspecific but could be a sign of viral infection/bronchitis. Pleasecorrelate. Preliminary Report Dictated by Resident: Mary Fermin MD., have reviewed this study and agree with theabove report.[facility]URINE DRUG (IMMUNOASSAY) - COMPREHENSIVE DRUG [id number] 12:36:45 Test Item Value Reference Range Interpretation Comments AMPHET (test code = Negative Negative 1496789312) CLAUDIA U (test code = Negative Negative 8067848897) BENZO U (test code = Presumptive Positive Negative A 5333517628) Cocaine Metabolite (test Negative Negative code = 1409553238) METHADONE (test code = Negative Negative 9159897306) OPIATES (test code = Negative Negative 1756153710) PCP (test code = Negative Negative 8766775872) THC (test code = Negative Negative 3141312561) TAMIKO (test code = TAMIKO) Urine Drug Cutoff Ranges Cocaine: ? 150 ng/mLBenzodiazepines: ? ? 200 ng/mLMethadone: ? 300 ng/mLAmphetamine: ? 1,000 ng/mLOpiates: ? 300 ng/mLCannabinoids: ?50 ng/mLPhencyclidine: ? ? ? 25 ng/mLBarbiturates: ?200 ng/mL The results are to be used only for medical (i.e., treatment) purposes. Unconfirmed screening results must not be used for non-medical purposes (e.g., employment testing, legal testing). Lab Interpretation (test Abnormal code = 68498-2) [facility] 12:18:19 Test Item Value Reference Range Interpretation Comments APPEARANCE (test code = Clear Clear 8589146740) COLOR (test code = Yellow Yellow 5617283868) PH (test code = 4.8-8.0 3826901517) SP GRAVITY (test code = 1.003-1.030 H 1178676836) GLU U QUAL (test code = Normal Normal 6142915098) BLOOD (test code = 1+ Negative A 7487635592) KETONES (test code = Negative Negative 2852521494) PROTEIN (test code = 100 mg/dL Negative A 2887-8) UROBILIN (test code = Normal Normal 0914722107) BILIRUBIN (test code = Negative Negative 0567144176) NITRITE (test code = Negative Negative 0743821475) LEUK GINO (test code = Negative Negative 1689459773) RBC/HPF (test code = See_Comment [Autom ated message] 6837188105) The system [employer].SL generated this result transmit luis reference range : 0 - 3 HPF. The refe rence range was not u sed to interpret th is result as normal/abnormal . WBC/HPF (test code = See_Comment [Autom ated message] 8650369388) The system [employer] generated this result transmit luis reference range : 0 - 5 HPF. The refe rence range was not u sed to interpret th is result as normal/abnormal . BACTERIA (test code = Few Negative A 6369705690) MUCOUS (test code = Slight Negative LPF A 5313463584) SQ EPITH (test code = <1 HPF 0004339766) HYAL CAST (test code = See_Comment H [Aut omated message] 5041568811) The system [employer] generated this result transmit luis reference range : <=2 LPF. The refere nce range was not u sed to interpret th is result as normal/abnormal . GRAN CASTS (test code = See_Comment H [Au tomated message] 3472158480) The system [employer] generated this result transmit luis reference range : <=1 LPF. The refere nce range was not u sed to interpret th is result as normal/abnormal . Lab Interpretation (test Abnormal code = 40488-8) [facility] SpringsD-[id number] 12:16:48 Test Item Value Reference Interpretation Comments Range D-DIMER (test code = See_Comment H [Autom ated 0363532465) message] The system which generated this result transmitted reference range : <0.41 ?g/mL (FEU). The reference range was not used to interpret this result as normal/abnormal . TAMIKO (test code = This test may be TAMIKO) used in conjunction with a clinical pretest probability (PTP) assessment model to exclude venous thromboembolism (VTE) in patients suspected of deep venous thrombosis (DVT) and pulmonary embolism (PE) A D-Dimer value less than 0.50 ?g/ml (FEU) has a negative predicative value of 96 to 100% (95% CI)and 97 to 100% (95% CI) as an aid in the diagnosis of deep vein thrombosis (DVT) and pulmonary embolism when there is low or moderate pretest probability of PE or DVT. D-Dimer values are expressed in initial fibrinogen equivalent units (FEU)" The assay results should be used with other information, including the clinical context, in forming a diagnosis. Lab Interpretation Abnormal (test code = 99039-9) [facility]ACTIV[facility] PARTIAL THRMPLAS [id number] 12:10:05 Test Item Value Reference Range Interpretation Comments APTT Patient (test See_Comment [Automat ed code = 3173-2) message] The system which generated this result transmitted reference range : 23 - 38 Seconds . The reference range was not used to interpr et this result as normal/abnormal . TAMIKO (test code = TAMIKO) The [facility] patient population mean normal value for aPTT is 30 seconds. Lab Interpretation Normal (test code = 87420-8) [facility] SpringsPROTHROMBIN TIME / [id number] 12:08:09 Test Item Value Reference Range Interpretation Comments PROTIME PATIENT (test See_Comment [Auto mated message] code = 5964-2) The system wh ich generated this result transmitted ref erence range: 12.0 - 1 4.7 Seconds. The re ference range was not u sed to interpret this result as normal/abnor mal. INR (test code = 6301-6) Nor mal INR <1.1; Warfarin Therap eutic range 2.0 to 3. 0 or 2.5 to 3.5, dep ending upon the indica tions. Lab Interpretation (test Normal code = 88650-4) [facility] SpringsCBC WITH [id number] 11:46:38 Test Item Value Reference Range Interpretation Comments WBC (test code = See_Comment [Automated 9090-2) message] The sy stem which generated this result transmitted reference range : 4.20 - 10.70 10*3/?L. The reference range was not used to interpret this result as normal/abnormal . RBC (test code = See_Comment [Automated 409-8) message] The sy stem which generated this result transmitted reference range : 4.26 - 5.52 10*6/?L. The reference range was not used to interpret this result as normal/abnormal . HGB (test code = 14.7 g/dL 12.2-16.4 718-7) HCT (test code = 43.1 % 38.4-49.3 4544-3) MCV (test code = 86.4 fL 81.7-95.6 787-2) MCH (test code = 29.5 pg 26.1-32.7 785-6) MCHC (test code = 34.1 g/dL 31.2-35.0 786-4) RDW-SD (test code = 43.2 fL 38.5-51.6 62088-4) RDW-CV (test code = 13.8 % 12.1-15.4 788-0) PLT (test code = See_Comment [Automated 777-3) message] The sy stem which generated this result transmitted reference range : 150 - 328 10*3/ ?L. The reference r javier was not used to interpret this result as normal/abnormal . MPV (test code = 9.1 fL 9.8-13.0 L 22138-6) NRBC/100 WBC (test See_Comment [Automat ed code = 0798379490) message] The system which generated this result transmitted reference range : 0.0 - 10.0 /100 WBCs. The refer ence range was not u sed to interpret th is result as normal/abnormal . NRBC x10^3 (test code <0.01 See_Comment [Auto mated = 0583844253) message] The s ystem which generated this result transmitted reference range : 10*3/?L. The reference range was not used to interpret this result as normal/abnormal . GRAN MAT (NEUT) % 58.2 % (test code = 770-8) IMM GRAN % (test code 0.40 % = 1177876870) LYMPH % (test code = 29.0 % 736-9) MONO % (test code = 10.1 % 5905-5) EOS % (test code = 1.2 % 713-8) BASO % (test code = 1.1 % 706-2) GRAN MAT x10^3(ANC) 4.82 10*3/uL 1.99-6.95 (test code = 6354958791) IMM GRAN x10^3 (test 0.03 10*3/uL 0.00-0.06 code = 8582300985) LYMPH x10^3 (test code 2.40 10*3/uL 1.09-3.23 = 731-0) MONO x10^3 (test code 0.84 10*3/uL 0.36-1.02 = 742-7) EOS x10^3 (test code = 0.10 10*3/uL 0.06-0.53 711-2) BASO x10^3 (test code 0.09 10*3/uL 0.01-0.09 = 704-7) Lab Interpretation Abnormal (test code = 97009-5) [facility] SpringsPOCT GLUCOSE (AUTOMATED)2020-10-24 11:21:11 Test Item Value Reference Range Interpretation Comments POCT GLU (test code = 1636683664) 147 mg/dL 70-110 H Lab Interpretation (test code = Abnormal 42352-0) [facility] SpringsTHYROID STIMULATING [id number] 19:43:06 Test Item Value Reference Range Interpretation Comments TSH (test code = See_Comment [Automated message] 4987106962) The system TRAN.SL generated this result transmitted ref erence range: 0.45 - 4 .70 mIU/L. The refe rence range was not u sed to interpret this result as normal/abnor mal. Lab Interpretation (test Normal code = 94306-6) [facility] SpringsaPTT2021-03-20 19:41:21 Test Item Value Reference Range Interpretation Comments APTT Patient (test See_Comment [Automat ed code = 3173-2) message] The system which generated this result transmitted reference range : 23 - 38 Seconds . The reference range was not used to interpr et this result as normal/abnormal . TAMIKO (test code = TAMIKO) The [facility] patient population mean normal value for aPTT is 30 seconds. Lab Interpretation Normal (test code = 71204-0) [facility] SpringsFREE [id number] 19:29:44 Test Item Value Reference Range Interpretation Comments FREE T4 (test code = See_Comment [Autom ated message] 3421716510) The system TRAN.SL generated this result transmitted ref erence range: 0.78 - 2 .20 ng/dL:. The ref erence range was not u sed to interpret this result as normal/abnor mal. Lab Interpretation (test Normal code = 61250-6) [facility] SpringsTroponin [id number] 19:24:48 Test Item Value Reference Range Interpretation Comments TROPONIN I (test <0.012 See_Comment [Automated code = 0934577931) message] The system which generated this result transmitted reference range : <=0.034 ng/mL. The reference range was not used to interpr et this result as normal/abnormal . TAMIKO (test code = Equal or Less than TAMIKO) 0.034 ng/ml---Normal ?Note: Cardiac troponin begins to rise 3-4 hours after the onset of ischemia. Repeat in 4-6 hours if the sample was drawn within 3-4 hours of the onset of the symptom and found normal. Between 0.035 and 0.120 ng/mL--- Borderline. Questionable myocardial injury or necrosis ? ?Note: Serial measurement may be necessary to confirm or exclude the diagnosis of myocardial injury or necrosis; Clinical correlation (symptoms, EKGs, imaging studies, and others) required; Repeat in 4-6 hours if clinically indicated. ? Equal or Higher than 0.121 ng/mL---Abnormal. Myocardial Injury or Necrosis Likely ? Biotin has been reported to cause a negative bias, interpret results relative to patient's use of biotin. ? Lab Interpretation Normal (test code = 00677-9) [facility] SpringsN-TERMINAL [id number] 19:21:28 Test Item Value Reference Range Interpretation Comments NT-proBNP (test code 47 pg/mL See_Comment [Autom ated = 1011207242) message] The system which generated this result transmitted reference range : <=125. The reference range was not used to interpret this result as normal/abnormal . TAMIKO (test code = TAMIKO) Biotin has been reported to cause a negative bias, interpret results relative to patient's use of biotin. Lab Interpretation Normal (test code = 90934-1) [facility] SpringsBasi Metabolic Panel (NA, K, CL, CO2, GLUCOSE, BUN, CREATININE, CA)2020-07-28 19:12:46 Test Item Value Reference Range Interpretation Comments NA (test code = 137 mmol/L 135-145 0213944150) K (test code = 3.5 mmol/L 3.5-5.0 9218138755) CL (test code = 99 mmol/L 98-108 4109596508) CO2 TOTAL (test code = 26 mmol/L 23-31 9745137329) AGAP (test code = 2-16 9061073290) BUN (test code = 3 mg/dL 7-23 L 3099498082) GLUCOSE (test code = 96 mg/dL 70-110 5630316845) CREATININE (test code = 0.69 mg/dL 0.60-1.25 7939171293) CALCIUM (test code = 9.1 mg/dL 8.6-10.6 0288582126) eGFR Calculation mL/min/1.73m2 (Non-) (test code = 7956302581) eGFR Calculation mL/min/1.73m2 () (test code = 0328090639) TAMIKO (test code = TAMIKO) Association of Glomerular Filtration Rate (GFR) and Staging of Kidney Disease* + --+ --+ ------+| GFR (mL/min/1.73 m2) ?| With Kidney Damage ?| ?Without Kidney Damage+ --------+ --------+ +| ?>90 ?| ?Stage one ?| ? Normal ?+ ---+ ---+ -------+| ?60-89 ?| ?Stage two ?| ? Decreased GFR ? + --+ --+ ------+| ?30-59 ?| ?Stage three ?| ? Stage three ? + --+ --+ ------+| ?15-29 ?| ?Stage four ? | ? Stage four ?+ ---+ ---+ -------+| ?<15 (or dialysis) ? ?| ?Stage five ? | ? Stage five ?+ ---+ ---+ -------+ *Each stage assumes the associated GFR level has been in effect for at least three months. ?Stages 1 to 5, with or without kidney disease, indicate chronic kidney disease. Notes: Determination of stages one and two (with eGFR >59mL/min/1.73 m2) requires estimation of kidney damage for at least three months as defined by structural or functional abnormalities of the kidney, manifested by either:Pathological abnormalities or Markers of kidney damage (including abnormalities in the composition of the blood or urine or abnormalities in imaging tests). Lab Interpretation Abnormal (test code = 04405-6) [facility] SpringsHepatic Function Panel (ALB, T.PRO, BILI T, BU/BC, ALT, AST, ALK PHOS)2020-07-28 19:12:26 Test Item Value Reference Range Interpretation Comments TOTAL BILI (test code = 3292218008) 0.5 mg/dL 0.1-1.1 BILI UNCON (test code = 9428030552) 0.3 mg/dL 0.1-1.1 BILI CONJ (test code = 2516737741) 0.0 mg/dL 0.0-0.3 T PROTEIN (test code = 9208591232) 7.7 g/dL 6.3-8.2 ALBUMIN (test code = 8693009950) 4.7 g/dL 3.5-5.0 ALK PHOS (test code = 6344275911) 115 U/L 34-122 ALTv (test code = 1742-6) 29 U/L 5-50 AST(SGOT) (test code = 4010654863) 27 U/L 13-40 Lab Interpretation (test code = Normal 19880-6) [facility] SpringsCOVID-19 (ID NOW RAPID TESTING)2020-07-28 19:00:24 Test Item Value Reference Range Interpretation Comments SARS-CoV-2 Rapid ID NOW Not Detected Not Detected (test code = 03965-1) TAMIKO (test code = TAMIKO) ID NOW COVID-19 Assay is an isothermal nucleic acid amplification test intended for the qualitative detection of nucleic acid from SARS-CoV-2 viral RNA in nasopharyngeal (SHOE PULLER) specimens. It is used under Emergency Use Authorization (EUA) by FDA. The limit of detection (LOD) of the assay is 125 Genome Equivalents/mL. A positive result is indicative of the presence of SARS-CoV-2 RNA. ?Clinical correlation with patient history and other diagnostic information is necessary to determine patient infection status. A negative (Not Detected) result does not preclude SARS-CoV-2 infection. In patients with clinical symptoms and other tests that are consistent with SARS-CoV-2 infection, negative results should be treated as presumptive negative and a new specimen should be tested with alternative PCR molecular test. Invalid: Please collect a new specimen for repeat patient testing if clinically indicated. Lab Interpretation Normal (test code = 11864-3) [facility] SpringsAD / [facility] [id number] 18:56:58 Test Item Value Reference Range Interpretation Comments BENZO U (test code = Presumptive Positive Negative A 0036601810) CLAUDIA U (test code = Negative Negative 7168902858) AMPHET (test code = Presumptive Positive Negative A 3651272552) THC (test code = Negative Negative 9808259678) METHADONE (test code = Negative Negative 2878040706) Meth U (test code = Presumptive Positive Negative A 1714835278) OPIATES (test code = Presumptive Positive Negative A 2837792174) Cocaine Metabolite (test Negative Negative code = 5102516830) PROPOXY (test code = Negative Negative 1873200852) Tric U (test code = Negative Negative 9854157639) PCP (test code = Negative Negative 2622202873) OXYCOD (test code = Negative Negative 9438035554) TAMIKO (test code = TAMIKO) Urine Drug Cutoff Ranges Benzodiazepines: ? ? 150 ng/mLBarbiturates: ?200 ng/mLAmphetamine: ? 500 ng/mLCannabinoids: ?50 ?ng/mLMethadone: ? 200 ng/mLMethamphetamine: ? ? 500 ng/mL Opiates: ? 100 ng/mL or 2000 ng/mLCocaine: ? 150 ng/mLPropoxyphene: ?300 ng/mLTricyclics: ?300 ng/mLOxycodone: ? 100 ng/mLPCP: ? 25 ?ng/mL The results are to be used only for medical (i.e., treatment) purposes. Unconfirmed screening results must not be used for non-medical purposes (e.g., employment testing, legal testing). Lab Interpretation (test Abnormal code = 35233-1) [facility] [id number] 18:54:32 Test Item Value Reference Range Interpretation Comments APPEARANCE (test code = Clear Clear 1546261316) COLOR (test code = Yellow Yellow 3674305218) PH (test code = 4.8-8.0 3343916745) SP GRAVITY (test code = 1.003-1.030 6946332541) GLU U QUAL (test code = Normal Normal 9000377271) BLOOD (test code = Negative Negative 0076429469) KETONES (test code = Negative Negative 2028217745) PROTEIN (test code = Negative Negative 2887-8) UROBILIN (test code = Normal Normal 1357920677) BILIRUBIN (test code = Negative Negative 8622413294) NITRITE (test code = Negative Negative 3716471745) LEUK GINO (test code = Negative Negative 0973821205) RBC/HPF (test code = See_Comment [Autom ated message] 4887841207) The system TRAN.SL generated this result transmitted ref erence range: 0 - 3 HP F. The reference range was not used to int erpret this result as normal/abnormal . WBC/HPF (test code = <1 See_Comment [Autom ated message] 1644387674) The system TRAN.SL generated this result transmitted ref erence range: 0 - 5 HP F. The reference range was not used to int erpret this result as normal/abnormal . BACTERIA (test code = Negative Negative 1386564940) Lab Interpretation (test Normal code = 43357-7) [facility] SpringsProthrombin Time (PT) / [id number] 18:54:27 Test Item Value Reference Range Interpretation Comments PROTIME PATIENT (test See_Comment [Auto mated message] code = 5964-2) The system [employer] generated this result transmitted ref erence range: 12.0 - 1 4.7 Seconds. The re ference range was not u sed to interpret this result as normal/abnor mal. INR (test code = 6301-6) Nor mal INR <1.1; Warfarin Therap eutic range 2.0 to 3. 0 or 2.5 to 3.5, dep ending upon the indica tions. Lab Interpretation (test Normal code = 00613-7) [facility] SpringsCBC with [id number] 18:41:23 Test Item Value Reference Range Interpretation Comments WBC (test code = See_Comment [Automated message] 6690-2) The system TRAN.SL generated this result transmitted ref erence range: 4.20 - 1 0.70 10*3/?L. The re ference range was not u sed to interpret this result as normal/abnor mal. RBC (test code = See_Comment [Automated message] 789-8) The system TRAN.SL generated this result transmitted ref erence range: 4.26 - 5 .52 10*6/?L. The re ference range was not u sed to interpret this result as normal/abnor mal. HGB (test code = 13.8 g/dL 12.2-16.4 718-7) HCT (test code = 40.9 % 38.4-49.3 4544-3) MCV (test code = 89.1 fL 81.7-95.6 787-2) MCH (test code = 30.1 pg 26.1-32.7 785-6) MCHC (test code = 33.7 g/dL 31.2-35.0 786-4) RDW-SD (test code 43.4 fL 38.5-51.6 = 05474-0) RDW-CV (test code 13.2 % 12.1-15.4 = 788-0) PLT (test code = See_Comment [Automated message] 777-3) The system TRAN.SL generated this result transmitted ref erence range: 150 - 32 8 10*3/?L. The re ference range was not u sed to interpret this result as normal/abnor mal. MPV (test code = 9.9 fL 9.8-13.0 91444-0) NRBC/100 WBC (test See_Comment [Automat ed message] code = 0339847898) The syste m which generated this result transmitted ref erence range: 0.0 - 10 .0 /100 WBCs. The refer ence range was not u sed to interpret this result as normal/abnor mal. NRBC x10^3 (test <0.01 See_Comment [Automated message] code = 5251615589) The syste m which generated this result transmitted ref erence range: 10*3/?L. The reference range was not used to interpr et this result as normal/abnormal . GRAN MAT (NEUT) % 68.0 % (test code = 770-8) IMM GRAN % (test 0.50 % code = 7447156304) LYMPH % (test code 18.2 % = 736-9) MONO % (test code 11.6 % = 5905-5) EOS % (test code = 1.1 % 713-8) BASO % (test code 0.6 % = 706-2) GRAN MAT 5.40 10*3/uL 1.99-6.95 x10^3(ANC) (test code = 2410912481) IMM GRAN x10^3 0.04 10*3/uL 0.00-0.06 (test code = 9152906546) LYMPH x10^3 (test 1.45 10*3/uL 1.09-3.23 code = 731-0) MONO x10^3 (test 0.92 10*3/uL 0.36-1.02 code = 742-7) EOS x10^3 (test 0.09 10*3/uL 0.06-0.53 code = 711-2) BASO x10^3 (test 0.05 10*3/uL 0.01-0.09 code = 704-7) [facility] SpringsKUSHALNATASHA [id number] 15:56:00 Test Item Value Reference Range Interpretation Comments TROPONIN I (test 0.006 ng/mL See_Comment [Automated code = 3195131335) message] The system which generated this result transmitted reference range : <=0.034. The reference range was not used to interpret this result as normal/abnormal . TAMIKO (test code = Equal or Less than TAMIKO) 0.034 ng/ml---Normal ?Note: Cardiac troponin begins to rise 3-4 hours after the onset of ischemia. Repeat in 4-6 hours if the sample was drawn within 3-4 hours of the onset of the symptom and found normal. Between 0.035 and 0.120 ng/mL--- Borderline. Questionable myocardial injury or necrosis ? ?Note: Serial measurement may be necessary to confirm or exclude the diagnosis of myocardial injury or necrosis; Clinical correlation (symptoms, EKGs, imaging studies, and others) required; Repeat in 4-6 hours if clinically indicated. ? Equal or Higher than 0.121 ng/mL---Abnormal. Myocardial Injury or Necrosis Likely ? Biotin has been reported to cause a negative bias, interpret results relative to patient's use of biotin. ? Lab Interpretation Normal (test code = 55584-3) [facility] SpringsTROPONIN [id number] 14:08:00 Test Item Value Reference Range Interpretation Comments TROPONIN I (test 0.021 ng/mL See_Comment Hemolyzed code = 7790086691) specimen [Automated message] The system which generated this result transmitted reference range : <=0.034. The reference range was not used to interpret this result as normal/abnormal . TAMIKO (test code = Equal or Less than TAMIKO) 0.034 ng/ml---Normal ?Note: Cardiac troponin begins to rise 3-4 hours after the onset of ischemia. Repeat in 4-6 hours if the sample was drawn within 3-4 hours of the onset of the symptom and found normal. Between 0.035 and 0.120 ng/mL--- Borderline. Questionable myocardial injury or necrosis ? ?Note: Serial measurement may be necessary to confirm or exclude the diagnosis of myocardial injury or necrosis; Clinical correlation (symptoms, EKGs, imaging studies, and others) required; Repeat in 4-6 hours if clinically indicated. ? Equal or Higher than 0.121 ng/mL---Abnormal. Myocardial Injury or Necrosis Likely ? Biotin has been reported to cause a negative bias, interpret results relative to patient's use of biotin. ? Lab Interpretation Normal (test code = 66988-0) [facility] SpringsBasic Metabolic Panel (NA, K, CL, CO2, GLUCOSE, BUN, CREATININE, CA)2020-06-30 13:25:00 Test Item Value Reference Range Interpretation Comments NA (test code = 138 mmol/L 135-145 0188644491) K (test code = 3.5 mmol/L 3.5-5 0563959812) CL (test code = 107 mmol/L 98-108 1708447935) CO2 TOTAL (test code = 20 mmol/L 23-31 L 7417710881) AGAP (test code = 2-16 2817835765) BUN (test code = 12 mg/dL 7-23 0188018334) GLUCOSE (test code = 93 mg/dL 70-110 6551105923) CREATININE (test code = 0.83 mg/dL 0.6-1.25 8100894265) CALCIUM (test code = 8.9 mg/dL 8.6-10.6 2449563110) eGFR Calculation mL/min/1.73m2 (Non-) (test code = 7738629396) eGFR Calculation mL/min/1.73m2 () (test code = 8982229813) TAMIKO (test code = TAMIKO) Association of Glomerular Filtration Rate (GFR) and Staging of Kidney Disease* + --+ --+ ------+| GFR (mL/min/1.73 m2) ?| With Kidney Damage ?| ?Without Kidney Damage+ --------+ --------+ +| ?>90 ?| ?Stage one ?| ? Normal ?+ ---+ ---+ -------+| ?60-89 ?| ?Stage two ?| ? Decreased GFR ? + --+ --+ ------+| ?30-59 ?| ?Stage three ?| ? Stage three ? + --+ --+ ------+| ?15-29 ?| ?Stage four ? | ? Stage four ?+ ---+ ---+ -------+| ?<15 (or dialysis) ? ?| ?Stage five ? | ? Stage five ?+ ---+ ---+ -------+ *Each stage assumes the associated GFR level has been in effect for at least three months. ?Stages 1 to 5, with or without kidney disease, indicate chronic kidney disease. Notes: Determination of stages one and two (with eGFR >59mL/min/1.73 m2) requires estimation of kidney damage for at least three months as defined by structural or functional abnormalities of the kidney, manifested by either:Pathological abnormalities or Markers of kidney damage (including abnormalities in the composition of the blood or urine or abnormalities in imaging tests). Lab Interpretation Abnormal (test code = 94950-3) [facility] with Svihuapfwrhq7858-81-67 13:04:00 Test Item Value Reference Range Interpretation Comments WBC (test code = See_Comment [Automated 1890-2) message] The sy stem which generated this result transmitted reference range : 4.20 - 10.70 10*3/?L. The reference range was not used to interpret this result as normal/abnormal . RBC (test code = See_Comment L [Automated 789-8) message] The sy stem which generated this result transmitted reference range : 4.26 - 5.52 10*6/?L. The reference range was not used to interpret this result as normal/abnormal . HGB (test code = 12.8 g/dL 12.2-16.4 718-7) HCT (test code = 38.7 % 38.4-49.3 4544-3) MCV (test code = 91.3 fL 81.7-95.6 787-2) MCH (test code = 30.2 pg 26.1-32.7 785-6) MCHC (test code = 33.1 g/dL 31.2-35 786-4) RDW-SD (test code = 47.3 fL 38.5-51.6 26456-7) RDW-CV (test code = 14.1 % 12.1-15.4 788-0) PLT (test code = See_Comment [Automated 777-3) message] The sy stem which generated this result transmitted reference range : 150 - 328 10*3/ ?L. The reference r javier was not used to interpret this result as normal/abnormal . MPV (test code = 10.1 fL 9.8-13 41291-1) NRBC/100 WBC (test See_Comment [Automat ed code = 6393134678) message] The system which generated this result transmitted reference range : 0.0 - 10.0 /100 WBCs. The refer ence range was not u sed to interpret th is result as normal/abnormal . NRBC x10^3 (test code <0.01 See_Comment [Auto mated = 5390969270) message] The s ystem which generated this result transmitted reference range : 10*3/?L. The reference range was not used to interpret this result as normal/abnormal . GRAN MAT (NEUT) % 45.2 % (test code = 770-8) IMM GRAN % (test code 0.50 % = 3730887998) LYMPH % (test code = 39.0 % 736-9) MONO % (test code = 11.9 % 5905-5) EOS % (test code = 2.6 % 713-8) BASO % (test code = 0.8 % 706-2) GRAN MAT x10^3(ANC) 3.00 10*3/uL 1.99-6.95 (test code = 7064339051) IMM GRAN x10^3 (test 0.03 10*3/uL 0-0.06 code = 0142868854) LYMPH x10^3 (test code 2.58 10*3/uL 1.09-3.23 = 731-0) MONO x10^3 (test code 0.79 10*3/uL 0.36-1.02 = 742-7) EOS x10^3 (test code = 0.17 10*3/uL 0.06-0.53 711-2) BASO x10^3 (test code 0.05 10*3/uL 0.01-0.09 = 704-7) Lab Interpretation Abnormal (test code = 45220-5) [facility] [id number] 05:44:12 No acute cardiopulmonary abnormality. Preliminary Report Dictated by Resident: Reymundo Gonzales MD., have reviewed this study and agree with the abovereport.XR CHEST 1 VW HISTORY: chest pain COMPARISON: 06/15/2019 TECHNIQUE: AP radiograph of the chest chest was performed. FINDINGS: The lungs are clear. No focal consolidation, pneumothorax or pleuraleffusion is seen. The cardiomediastinal silhouette is normal. No acute osseous abnormality. [facility], Radiant Results Inft User - 11/10/201912:45 AM CDTXR CHEST 1 VWHISTORY: chest pain COMPARISON: 06/15/2019TECHNIQUE: AP radiograph of the chest chest was performed.FINDINGS:The lungs are clear. No focal consolidation, pneumothorax or pleuraleffusion is seen.The cardiomediastinal silhouette is normal.No acute osseous abnormality.IMPRESSIONNo acute cardiopulmonary abnormality.Preliminary Report Dictated by Resident: Reymundo Posada MD., have reviewed this study and agree with the abovereport.[facility] TROPONIN [id number] 05:05:00 Test Item Value Reference Range Interpretation Comments TROPONIN I (test <0.012 See_Comment [Automated code = 2374913218) message] The system which generated this result transmitted reference range : <=0.034 ng/mL. The reference range was not used to interpr et this result as normal/abnormal . TAMIKO (test code = Equal or Less than TAMIKO) 0.034 ng/ml---Normal ?Note: Cardiac troponin begins to rise 3-4 hours after the onset of ischemia. Repeat in 4-6 hours if the sample was drawn within 3-4 hours of the onset of the symptom and found normal. Between 0.035 and 0.120 ng/mL--- Borderline. Questionable myocardial injury or necrosis ? ?Note: Serial measurement may be necessary to confirm or exclude the diagnosis of myocardial injury or necrosis; Clinical correlation (symptoms, EKGs, imaging studies, and others) required; Repeat in 4-6 hours if clinically indicated. ? Equal or Higher than 0.121 ng/mL---Abnormal. Myocardial Injury or Necrosis Likely ? Biotin has been reported to cause a negative bias, interpret results relative to patient's use of biotin. ? Lab Interpretation Normal (test code = 13978-3) [facility]. METABOLIC PANEL ([id number])2019-11-10 05:05:00 Test Item Value Reference Range Interpretation Comments NA (test code = 135 mmol/L 135-145 4618286267) K (test code = 3.6 mmol/L 3.5-5 1335454551) CL (test code = 102 mmol/L 98-108 7132241553) CO2 TOTAL (test code = 23 mmol/L 23-31 7225623304) AGAP (test code = 2-16 7788653689) BUN (test code = 15 mg/dL 7-23 6396089852) GLUCOSE (test code = 93 mg/dL 70-110 3416281827) CREATININE (test code 0.79 mg/dL 0.6-1.25 = 2737629736) TOTAL BILI (test code 0.4 mg/dL 0.1-1.1 = 8390802514) CALCIUM (test code = 9.4 mg/dL 8.6-10.6 6008813752) T PROTEIN (test code = 7.9 g/dL 6.3-8.2 8992909766) ALBUMIN (test code = 4.5 g/dL 3.5-5 8752660533) ALK PHOS (test code = 61 U/L 34-122 0497290493) ALTv (test code = 22 U/L 5-50 1742-6) AST(SGOT) (test code = 26 U/L 13-40 7380538748) eGFR Calculation mL/min/1.73m2 (Non-) (test code = 8305655812) eGFR Calculation mL/min/1.73m2 () (test code = 9390152088) TAMIKO (test code = TAMIKO) Association of Glomerular Filtration Rate (GFR) and Staging of Kidney Disease* + -+ + ---+| GFR (mL/min/1.73 m2) ?| With Kidney Damage ?| ?Without Kidney Damage+ -------+ ------+ ---------+| ?>90 ?| ?Stage one ?| ? Normal ?+ --+ -+ ----+| ?60-89 ?| ?Stage two ?| ? Decreased GFR ? + -+ + ---+| ?30-59 ?| ?Stage three ?| ? Stage three ? + -+ + ---+| ?15-29 ?| ?Stage four ? | ? Stage four ?+ --+ -+ ----+| ?<15 (or dialysis) ? ?| ?Stage five ? | ? Stage five ?+ --+ -+ ----+ *Each stage assumes the associated GFR level has been in effect for at least three months. ?Stages 1 to 5, with or without kidney disease, indicate chronic kidney disease. Notes: Determination of stages one and two (with eGFR >59mL/min/1.73 m2) requires estimation of kidney damage for at least three months as defined by structural or functional abnormalities of the kidney, manifested by either:Pathological abnormalities or Markers of kidney damage (including abnormalities in the composition of the blood or urine or abnormalities in imaging tests). [facility]PTT2020-07-02 04:45:00 Test Item Value Reference Range Interpretation Comments APTT Patient (test See_Comment [Automat ed code = 3173-2) message] The system which generated this result transmitted reference range : 23 - 38 Seconds . The reference range was not used to interpr et this result as normal/abnormal . TAMIKO (test code = TAMIKO) The [facility] patient population mean normal value for aPTT is 30 seconds. Lab Interpretation Normal (test code = 58746-2) [facility] SpringsPROTHROMBIN TIME / [id number] 04:45:00 Test Item Value Reference Range Interpretation Comments PROTIME PATIENT (test See_Comment [Auto mated message] code = 5964-2) The system wh ich generated this result transmitted ref erence range: 12.0 - 1 4.7 Seconds. The re ference range was not u sed to interpret this result as normal/abnor mal. INR (test code = 6301-6) Nor mal INR <1.1; Warfarin Therap eutic range 2.0 to 3. 0 or 2.5 to 3.5, dep ending upon the indica tions. Lab Interpretation (test Normal code = 61543-9) [facility]CB WITH [id number] 04:37:00 Test Item Value Reference Range Interpretation Comments WBC (test code = See_Comment [Automated 8490-2) message] The sy stem which generated this result transmitted reference range : 4.20 - 10.70 10*3/?L. The reference range was not used to interpret this result as normal/abnormal . RBC (test code = See_Comment [Automated 299-8) message] The sy stem which generated this result transmitted reference range : 4.26 - 5.52 10*6/?L. The reference range was not used to interpret this result as normal/abnormal . HGB (test code = 13.7 g/dL 12.2-16.4 718-7) HCT (test code = 40.4 % 38.4-49.3 4544-3) MCV (test code = 86.1 fL 81.7-95.6 787-2) MCH (test code = 29.2 pg 26.1-32.7 785-6) MCHC (test code = 33.9 g/dL 31.2-35 786-4) RDW-SD (test code = 39.7 fL 38.5-51.6 02522-1) RDW-CV (test code = 12.7 % 12.1-15.4 788-0) PLT (test code = See_Comment [Automated 777-3) message] The sy stem which generated this result transmitted reference range : 150 - 328 10*3/ ?L. The reference r javier was not used to interpret this result as normal/abnormal . MPV (test code = 10.3 fL 9.8-13 90581-4) NRBC/100 WBC (test See_Comment [Automat ed code = 9278574276) message] The system which generated this result transmitted reference range : 0.0 - 10.0 /100 WBCs. The refer ence range was not u sed to interpret th is result as normal/abnormal . NRBC x10^3 (test code <0.01 See_Comment [Auto mated = 6803470413) message] The s ystem which generated this result transmitted reference range : 10*3/?L. The reference range was not used to interpret this result as normal/abnormal . GRAN MAT (NEUT) % 47.9 % (test code = 770-8) IMM GRAN % (test code 0.20 % = 8791886911) LYMPH % (test code = 33.3 % 736-9) MONO % (test code = 12.1 % 5905-5) EOS % (test code = 5.7 % 713-8) BASO % (test code = 0.8 % 706-2) GRAN MAT x10^3(ANC) 5.08 10*3/uL 1.99-6.95 (test code = 7300749992) IMM GRAN x10^3 (test <0.03 0-0.06 code = 0911176861) LYMPH x10^3 (test code 3.53 10*3/uL 1.09-3.23 H = 731-0) MONO x10^3 (test code 1.28 10*3/uL 0.36-1.02 H = 742-7) EOS x10^3 (test code = 0.61 10*3/uL 0.06-0.53 H 711-2) BASO x10^3 (test code 0.09 10*3/uL 0.01-0.09 = 704-7) Lab Interpretation Abnormal (test code = 45977-8) [facility]URINAL[facility]IS2020-05-21 16:01:00 Test Item Value Reference Range Interpretation Comments APPEARANCE (test code = Clear Clear 7038486369) COLOR (test code = Other Yellow A 1466917489) PH (test code = 4.8-8.0 6682298173) SP GRAVITY (test code = <=1.005 1.003-1.030 1776490439) GLU U QUAL (test code = Negative Negative 7957624826) BLOOD (test code = Negative Negative 0854331738) KETONES (test code = Negative Negative 6775238423) PROTEIN (test code = Negative Negative 2887-8) UROBILIN (test code = 0.2 mg/dL See_Comment [Auto mated message] 0401175116) The system [employer] generated this result transmit luis reference range : 0-1.0 mg/dL. Th e reference range was not used to interpret this result as normal/abnormal . BILIRUBIN (test code = Negative Negative 4686981421) NITRITE (test code = Negative Negative 3768042498) LEUK GINO (test code = Negative Negative 6489432314) RBC/HPF (test code = See_Comment [Autom ated message] 5758864617) The system [employer] generated this result transmit luis reference range : 0 - 3 HPF. The refe rence range was not u sed to interpret th is result as normal/abnormal . WBC/HPF (test code = See_Comment [Autom ated message] 5129190942) The system [employer] generated this result transmit luis reference range : 0 - 5 HPF. The refe rence range was not u sed to interpret th is result as normal/abnormal . BACTERIA (test code = Negative Negative 6929171581) MUCOUS (test code = Slight Negative LPF A 6055091347) SQ EPITH (test code = HPF 1591897173) Lab Interpretation (test Abnormal code = 69279-4) [facility]. METABOLIC PANEL ([id number])2019-09-29 15:57:00 Test Item Value Reference Range Interpretation Comments NA (test code = 140 mmol/L 135-145 4590156261) K (test code = 4.8 mmol/L 3.5-5 0118006230) CL (test code = 106 mmol/L 98-108 8731759403) CO2 TOTAL (test code = 24 mmol/L 23-31 3582904030) AGAP (test code = 2-16 6482965193) BUN (test code = 14 mg/dL 7-23 3885677717) GLUCOSE (test code = 94 mg/dL 70-110 5225601767) CREATININE (test code 0.66 mg/dL 0.6-1.25 = 1143076209) TOTAL BILI (test code 0.5 mg/dL 0.1-1.1 = 8219294786) CALCIUM (test code = 9.5 mg/dL 8.6-10.6 8270350414) T PROTEIN (test code = 8.1 g/dL 6.3-8.2 4237672904) ALBUMIN (test code = 4.6 g/dL 3.5-5 1482847675) ALK PHOS (test code = 41 U/L 34-122 9182576974) ALTv (test code = 17 U/L 5-50 1742-6) AST(SGOT) (test code = 29 U/L 13-40 6795377417) eGFR Calculation mL/min/1.73m2 (Non-) (test code = 6980661046) eGFR Calculation mL/min/1.73m2 () (test code = 7942028164) TAMIKO (test code = TAMIKO) Association of Glomerular Filtration Rate (GFR) and Staging of Kidney Disease* + -+ + ---+| GFR (mL/min/1.73 m2) ?| With Kidney Damage ?| ?Without Kidney Damage+ -------+ ------+ ---------+| ?>90 ?| ?Stage one ?| ? Normal ?+ --+ -+ ----+| ?60-89 ?| ?Stage two ?| ? Decreased GFR ? + -+ + ---+| ?30-59 ?| ?Stage three ?| ? Stage three ? + -+ + ---+| ?15-29 ?| ?Stage four ? | ? Stage four ?+ --+ -+ ----+| ?<15 (or dialysis) ? ?| ?Stage five ? | ? Stage five ?+ --+ -+ ----+ *Each stage assumes the associated GFR level has been in effect for at least three months. ?Stages 1 to 5, with or without kidney disease, indicate chronic kidney disease. Notes: Determination of stages one and two (with eGFR >59mL/min/1.73 m2) requires estimation of kidney damage for at least three months as defined by structural or functional abnormalities of the kidney, manifested by either:Pathological abnormalities or Markers of kidney damage (including abnormalities in the composition of the blood or urine or abnormalities in imaging tests). [facility] WITH [id number] 15:34:00 Test Item Value Reference Range Interpretation Comments WBC (test code = See_Comment [Automated 1690-2) message] The sy stem which generated this result transmitted reference range : 4.20 - 10.70 10*3/?L. The reference range was not used to interpret this result as normal/abnormal . RBC (test code = See_Comment [Automated 789-8) message] The sy stem which generated this result transmitted reference range : 4.26 - 5.52 10*6/?L. The reference range was not used to interpret this result as normal/abnormal . HGB (test code = 15.4 g/dL 12.2-16.4 718-7) HCT (test code = 47.1 % 38.4-49.3 4544-3) MCV (test code = 89.0 fL 81.7-95.6 787-2) MCH (test code = 29.1 pg 26.1-32.7 785-6) MCHC (test code = 32.7 g/dL 31.2-35 786-4) RDW-SD (test code = 41.0 fL 38.5-51.6 38292-2) RDW-CV (test code = 12.5 % 12.1-15.4 788-0) PLT (test code = See_Comment [Automated 777-3) message] The sy stem which generated this result transmitted reference range : 150 - 328 10*3/ ?L. The reference r javier was not used to interpret this result as normal/abnormal . MPV (test code = 10.3 fL 9.8-13 20089-7) NRBC/100 WBC (test See_Comment [Automat ed code = 1644385653) message] The system which generated this result transmitted reference range : 0.0 - 10.0 /100 WBCs. The refer ence range was not u sed to interpret th is result as normal/abnormal . NRBC x10^3 (test code <0.01 See_Comment [Auto mated = 3798083110) message] The s ystem which generated this result transmitted reference range : 10*3/?L. The reference range was not used to interpret this result as normal/abnormal . GRAN MAT (NEUT) % 54.5 % (test code = 770-8) IMM GRAN % (test code 0.20 % = 4741294784) LYMPH % (test code = 28.0 % 736-9) MONO % (test code = 10.0 % 5905-5) EOS % (test code = 6.6 % 713-8) BASO % (test code = 0.7 % 706-2) GRAN MAT x10^3(ANC) 4.68 10*3/uL 1.99-6.95 (test code = 7450247074) IMM GRAN x10^3 (test <0.03 0-0.06 code = 8758222598) LYMPH x10^3 (test code 2.41 10*3/uL 1.09-3.23 = 731-0) MONO x10^3 (test code 0.86 10*3/uL 0.36-1.02 = 742-7) EOS x10^3 (test code = 0.57 10*3/uL 0.06-0.53 H 711-2) BASO x10^3 (test code 0.06 10*3/uL 0.01-0.09 = 704-7) Lab Interpretation Abnormal (test code = 50876-4) [facility] [id number] 13:56:00 Test Item Value Reference Range Interpretation Comments TROPONIN I (test <0.012 See_Comment [Automated code = 6979258576) message] The system which generated this result transmitted reference range : <=0.034 ng/mL. The reference range was not used to interpr et this result as normal/abnormal . TAMIKO (test code = Equal or Less than TAMIKO) 0.034 ng/ml---Normal ?Note: Cardiac troponin begins to rise 3-4 hours after the onset of ischemia. Repeat in 4-6 hours if the sample was drawn within 3-4 hours of the onset of the symptom and found normal. Between 0.035 and 0.120 ng/mL--- Borderline. Questionable myocardial injury or necrosis ? ?Note: Serial measurement may be necessary to confirm or exclude the diagnosis of myocardial injury or necrosis; Clinical correlation (symptoms, EKGs, imaging studies, and others) required; Repeat in 4-6 hours if clinically indicated. ? Equal or Higher than 0.121 ng/mL---Abnormal. Myocardial Injury or Necrosis Likely ? Biotin has been reported to cause a negative bias, interpret results relative to patient's use of biotin. ? Lab Interpretation Normal (test code = 04451-6) [facility] SpringsPROTHROMBIN TIME / [id number] 13:44:00 Test Item Value Reference Range Interpretation Comments PROTIME PATIENT (test See_Comment [Auto mated message] code = 5964-2) The system [employer] generated this result transmitted ref erence range: 12.0 - 1 4.7 Seconds. The re ference range was not u sed to interpret this result as normal/abnor mal. INR (test code = 6301-6) Nor mal INR <1.1; Warfarin Therap eutic range 2.0 to 3. 0 or 2.5 to 3.5, dep ending upon the indica tions. Lab Interpretation (test Normal code = 86897-7) [facility] METABOLIC PANEL ([id number])2019-06-16 13:44:00 Test Item Value Reference Range Interpretation Comments NA (test code = 138 mmol/L 135-145 4097999933) K (test code = 3.9 mmol/L 3.5-5 9722001920) CL (test code = 100 mmol/L 98-108 6378688324) CO2 TOTAL (test code = 28 mmol/L 23-31 0885202512) AGAP (test code = 2-16 8366906259) BUN (test code = 14 mg/dL 7-23 4465643535) GLUCOSE (test code = 108 mg/dL 70-110 9328620485) CREATININE (test code = 0.75 mg/dL 0.6-1.25 8670742869) TOTAL BILI (test code = 0.5 mg/dL 0.1-1.0 8289283660) CALCIUM (test code = 8.8 mg/dL 8.6-10.6 2010135603) T PROTEIN (test code = 7.3 g/dL 6.3-8.2 2093991948) ALBUMIN (test code = 4.4 g/dL 3.5-5 4556945967) ALK PHOS (test code = 63 U/L 34-122 1822269108) ALTv (test code = 48 U/L 5-50 2-6) AST(SGOT) (test code = 47 U/L 13-40 H 9026762649) eGFR Calculation mL/min/1.73m2 (Non-) (test code = 4091399790) eGFR Calculation mL/min/1.73m2 () (test code = 1900114219) TAMIKO (test code = TAMIKO) Association of Glomerular Filtration Rate (GFR) and Staging of Kidney Disease* + --+ --+ ------+| GFR (mL/min/1.73 m2) ?| With Kidney Damage ?| ?Without Kidney Damage+ --------+ --------+ +| ?>90 ?| ?Stage one ?| ? Normal ?+ ---+ ---+ -------+| ?60-89 ?| ?Stage two ?| ? Decreased GFR ? + --+ --+ ------+| ?30-59 ?| ?Stage three ?| ? Stage three ? + --+ --+ ------+| ?15-29 ?| ?Stage four ? | ? Stage four ?+ ---+ ---+ -------+| ?<15 (or dialysis) ? ?| ?Stage five ? | ? Stage five ?+ ---+ ---+ -------+ *Each stage assumes the associated GFR level has been in effect for at least three months. ?Stages 1 to 5, with or without kidney disease, indicate chronic kidney disease. Notes: Determination of stages one and two (with eGFR >59mL/min/1.73 m2) requires estimation of kidney damage for at least three months as defined by structural or functional abnormalities of the kidney, manifested by either:Pathological abnormalities or Markers of kidney damage (including abnormalities in the composition of the blood or urine or abnormalities in imaging tests). Lab Interpretation Abnormal (test code = 70036-3) [facility] SpringsLIPASE, [id number] 13:44:00 Test Item Value Reference Range Interpretation Comments LIPASE (test code = 9947543403) 61 U/L 0-220 Lab Interpretation (test code = Normal 89841-0) [facility]aPTT2020-02-06 13:43:00 Test Item Value Reference Range Interpretation Comments APTT Patient (test See_Comment [Automat ed code = 3173-2) message] The system which generated this result transmitted reference range : 23 - 38 Seconds . The reference range was not used to interpr et this result as normal/abnormal . TAMIKO (test code = TAMIKO) The [facility] patient population mean normal value for aPTT is 30 seconds. Lab Interpretation Normal (test code = 63752-6) [facility] SpringsCBC WITH [id number] 13:30:00 Test Item Value Reference Range Interpretation Comments WBC (test code = See_Comment [Automated 6590-2) message] The sy stem which generated this result transmitted reference range : 4.20 - 10.70 10*3/?L. The reference range was not used to interpret this result as normal/abnormal . RBC (test code = See_Comment [Automated 159-8) message] The sy stem which generated this result transmitted reference range : 4.26 - 5.52 10*6/?L. The reference range was not used to interpret this result as normal/abnormal . HGB (test code = 13.5 g/dL 12.2-16.4 718-7) HCT (test code = 41.4 % 38.4-49.3 4544-3) MCV (test code = 87.5 fL 81.7-95.6 787-2) MCH (test code = 28.5 pg 26.1-32.7 785-6) MCHC (test code = 32.6 g/dL 31.2-35 786-4) RDW-SD (test code = 40.6 fL 38.5-51.6 32918-2) RDW-CV (test code = 12.6 % 12.1-15.4 788-0) PLT (test code = See_Comment [Automated 777-3) message] The sy stem which generated this result transmitted reference range : 150 - 328 10*3/ ?L. The reference r javier was not used to interpret this result as normal/abnormal . MPV (test code = 9.7 fL 9.8-13 L 37169-0) NRBC/100 WBC (test See_Comment [Automat ed code = 9565776086) message] The system which generated this result transmitted reference range : 0.0 - 10.0 /100 WBCs. The refer ence range was not u sed to interpret th is result as normal/abnormal . NRBC x10^3 (test code <0.01 See_Comment [Auto mated = 6116408647) message] The s ystem which generated this result transmitted reference range : 10*3/?L. The reference range was not used to interpret this result as normal/abnormal . GRAN MAT (NEUT) % 52.5 % (test code = 770-8) IMM GRAN % (test code 0.30 % = 5817187244) LYMPH % (test code = 29.9 % 736-9) MONO % (test code = 11.5 % 5905-5) EOS % (test code = 4.5 % 713-8) BASO % (test code = 1.3 % 706-2) GRAN MAT x10^3(ANC) 3.14 10*3/uL 1.99-6.95 (test code = 8737589068) IMM GRAN x10^3 (test <0.03 0-0.06 code = 9827169657) LYMPH x10^3 (test code 1.79 10*3/uL 1.09-3.23 = 731-0) MONO x10^3 (test code 0.69 10*3/uL 0.36-1.02 = 742-7) EOS x10^3 (test code = 0.27 10*3/uL 0.06-0.53 711-2) BASO x10^3 (test code 0.08 10*3/uL 0.01-0.09 = 704-7) Lab Interpretation Abnormal (test code = 46569-4) [facility]TROPONIN [id number] 19:02:00 Test Item Value Reference Range Interpretation Comments TROPONIN I (test <0.012 See_Comment [Automated code = 3042863836) message] The system which generated this result transmitted reference range : <=0.034 ng/mL. The reference range was not used to interpr et this result as normal/abnormal . TAMIKO (test code = Equal or Less than TAMIKO) 0.034 ng/ml---Normal ?Note: Cardiac troponin begins to rise 3-4 hours after the onset of ischemia. Repeat in 4-6 hours if the sample was drawn within 3-4 hours of the onset of the symptom and found normal. Between 0.035 and 0.120 ng/mL--- Borderline. Questionable myocardial injury or necrosis ? ?Note: Serial measurement may be necessary to confirm or exclude the diagnosis of myocardial injury or necrosis; Clinical correlation (symptoms, EKGs, imaging studies, and others) required; Repeat in 4-6 hours if clinically indicated. ? Equal or Higher than 0.121 ng/mL---Abnormal. Myocardial Injury or Necrosis Likely ? Biotin has been reported to cause a negative bias, interpret results relative to patient's use of biotin. ? Lab Interpretation Normal (test code = 66611-0) [facility] METABOLIC PANEL ([id number])2019-06-15 18:50:00 Test Item Value Reference Range Interpretation Comments NA (test code = 145 mmol/L 135-145 3139318287) K (test code = 4.1 mmol/L 3.5-5 2036725007) CL (test code = 103 mmol/L 98-108 3975394701) CO2 TOTAL (test code = 32 mmol/L 23-31 H 5421416258) AGAP (test code = 2-16 1375785819) BUN (test code = 11 mg/dL 7-23 9472187544) GLUCOSE (test code = 108 mg/dL 70-110 6784564064) CREATININE (test code = 0.73 mg/dL 0.6-1.25 5551917634) TOTAL BILI (test code = 0.5 mg/dL 0.1-1.6 9719443878) CALCIUM (test code = 9.3 mg/dL 8.6-10.6 3429274300) T PROTEIN (test code = 8.1 g/dL 6.3-8.2 6949316925) ALBUMIN (test code = 4.9 g/dL 3.5-5 5671515190) ALK PHOS (test code = 65 U/L 34-122 5930300124) ALTv (test code = 61 U/L 5-50 H 1742-6) AST(SGOT) (test code = 45 U/L 13-40 H 5406644060) eGFR Calculation mL/min/1.73m2 (Non-) (test code = 2396301116) eGFR Calculation mL/min/1.73m2 () (test code = 1247526461) TAMIKO (test code = TAMIKO) Association of Glomerular Filtration Rate (GFR) and Staging of Kidney Disease* + --+ --+ ------+| GFR (mL/min/1.73 m2) ?| With Kidney Damage ?| ?Without Kidney Damage+ --------+ --------+ +| ?>90 ?| ?Stage one ?| ? Normal ?+ ---+ ---+ -------+| ?60-89 ?| ?Stage two ?| ? Decreased GFR ? + --+ --+ ------+| ?30-59 ?| ?Stage three ?| ? Stage three ? + --+ --+ ------+| ?15-29 ?| ?Stage four ? | ? Stage four ?+ ---+ ---+ -------+| ?<15 (or dialysis) ? ?| ?Stage five ? | ? Stage five ?+ ---+ ---+ -------+ *Each stage assumes the associated GFR level has been in effect for at least three months. ?Stages 1 to 5, with or without kidney disease, indicate chronic kidney disease. Notes: Determination of stages one and two (with eGFR >59mL/min/1.73 m2) requires estimation of kidney damage for at least three months as defined by structural or functional abnormalities of the kidney, manifested by either:Pathological abnormalities or Markers of kidney damage (including abnormalities in the composition of the blood or urine or abnormalities in imaging tests). Lab Interpretation Abnormal (test code = 98205-5) [facility] 18:50:00 Test Item Value Reference Range Interpretation Comments MAGNESIUM (test code = 1287296264) 2.2 mg/dL 1.7-2.4 Lab Interpretation (test code = Normal 10367-1) [facility] SpringsCB WITH [id number] 18:39:00 Test Item Value Reference Range Interpretation Comments WBC (test code = See_Comment [Automated message] 8690-2) The system TRAN.SL generated this result transmitted ref erence range: 4.20 - 1 0.70 10*3/?L. The re ference range was not u sed to interpret this result as normal/abnor mal. RBC (test code = See_Comment [Automated message] 079-8) The system TRAN.SL generated this result transmitted ref erence range: 4.26 - 5 .52 10*6/?L. The re ference range was not u sed to interpret this result as normal/abnor mal. HGB (test code = 14.8 g/dL 12.2-16.4 718-7) HCT (test code = 44.0 % 38.4-49.3 4544-3) MCV (test code = 88.0 fL 81.7-95.6 787-2) MCH (test code = 29.6 pg 26.1-32.7 785-6) MCHC (test code = 33.6 g/dL 31.2-35 786-4) RDW-SD (test code 41.5 fL 38.5-51.6 = 30732-4) RDW-CV (test code 12.9 % 12.1-15.4 = 788-0) PLT (test code = See_Comment [Automated message] 307-3) The system TRAN.SL generated this result transmitted ref erence range: 150 - 32 8 10*3/?L. The re ference range was not u sed to interpret this result as normal/abnor mal. MPV (test code = 10.0 fL 9.8-13 23314-3) NRBC/100 WBC (test See_Comment [Automat ed message] code = 9411451320) The syste m which generated this result transmitted ref erence range: 0.0 - 10 .0 /100 WBCs. The refer ence range was not u sed to interpret this result as normal/abnor mal. NRBC x10^3 (test <0.01 See_Comment [Automated message] code = 5558767809) The syste m which generated this result transmitted ref erence range: 10*3/?L. The reference range was not used to interpr et this result as normal/abnormal . GRAN MAT (NEUT) % 45.9 % (test code = 770-8) IMM GRAN % (test 0.10 % code = 7157032123) LYMPH % (test code 39.6 % = 736-9) MONO % (test code 8.6 % = 5905-5) EOS % (test code = 4.6 % 713-8) BASO % (test code 1.2 % = 706-2) GRAN MAT 3.36 10*3/uL 1.99-6.95 x10^3(ANC) (test code = 0021612842) IMM GRAN x10^3 <0.03 0-0.06 (test code = 7669295411) LYMPH x10^3 (test 2.91 10*3/uL 1.09-3.23 code = 731-0) MONO x10^3 (test 0.63 10*3/uL 0.36-1.02 code = 742-7) EOS x10^3 (test 0.34 10*3/uL 0.06-0.53 code = 711-2) BASO x10^3 (test 0.09 10*3/uL 0.01-0.09 code = 704-7) [facility] SpringsXR CHEST 1 [id number] 18:31:36HISTORY: SOB. TECHNIQUE: Portable AP erect view of the chest is obtained. Comparison madewith 11/08/2018 study. FINDINGS: No acute pneumonia. No pneumothorax or pleural effusion orpulmonary congestion detected. Cardiac size is within normal limits. CONCLUSIONS: No signs of acute cardiopulmonary disease.[facility], Radiant Results Inft User - 06/15/2019 12:32 PM CSTHISTORY: SOB.TECHNIQUE: Portable AP erect vi ew of the chest is obtained. Comparison madewith 11/08/2018 study.FINDINGS: No acute pneumonia. No pneumothorax or pleural effusion orpulmonary congestion detected. Cardiac size is within normal limits. CONCLUSIONS: No signs of acute cardiopulmonary disease.[facility] FLU A AND B (MOLECULAR)2019 16:36:00 Test Item Value Reference Range Interpretation Comments POCT INFLUENZA A (test code = negative Negative - Negative 3840) POCT INFLUENZA B (test code = negative Negative - Negative 3841) Lab Interpretation (test code = Normal 59674-0) [facility] GRP A STREP (MOLECULAR)2019 16:34:00 Test Item Value Reference Range Interpretation Comments POCT GP A STREP (test code = negative Negative - Negative 15100-4) Lab Interpretation (test code = Normal 22072-5) [facility]2019-09-16 23:07:00 Test Item Value Reference Range Interpretation Comments APPEARANCE (test code = Clear Clear 9967231740) COLOR (test code = Yellow Yellow 2643389845) PH (test code = 4.8-8.0 9972627309) SP GRAVITY (test code = 1.003-1.030 9228806363) GLU U QUAL (test code = Normal Normal 8638188341) BLOOD (test code = Negative Negative 1243771062) KETONES (test code = 5 mg/dL Negative A 0176039733) PROTEIN (test code = Negative Negative 2887-8) UROBILIN (test code = Normal Normal 5839225841) BILIRUBIN (test code = Negative Negative 7707143275) NITRITE (test code = Negative Negative 2945627895) LEUK GINO (test code = Negative Negative 3509436795) RBC/HPF (test code = See_Comment [Autom ated message] 0623956552) The system TRAN.SL generated this result transmitted ref erence range: 0 - 3 HP F. The reference range was not used to int erpret this result as normal/abnormal . WBC/HPF (test code = See_Comment [Autom ated message] 1073754576) The system TRAN.SL generated this result transmitted ref erence range: 0 - 5 HP F. The reference range was not used to int erpret this result as normal/abnormal . BACTERIA (test code = Negative Negative 7600987087) MUCOUS (test code = Slight Negative LPF A 5463575657) HYAL CAST (test code = See_Comment H [Aut omated message] 5849145695) The system TRAN.SL generated this result transmitted ref erence range: <=2 LPF. The reference range was not used to int erpret this result as normal/abnormal . Lab Interpretation (test Abnormal code = 80202-7) [facility] [id number] 22:42:00 Test Item Value Reference Range Interpretation Comments TROPONIN I (test 0.002 ng/mL See_Comment [Automated code = 8250737339) message] The system which generated this result transmitted reference range : <=0.034. The reference range was not used to interpret this result as normal/abnormal . TAMIKO (test code = Equal or Less than TAMIKO) 0.034 ng/ml---Normal?Not e: Cardiac troponin begins to rise 3-4 hours after the onset of ischemia. Repeat in 4-6 hours if the sample was drawn within 3-4 hours of the onset of the symptom and found normal. Between 0.035 and 0.120 ng/mL--- Borderline. Questionable myocardial injury or necrosis?Note: Serial measurement may be necessary to confirm or exclude the diagnosis of myocardial injury or necrosis; Clinical correlation (symptoms, EKGs, imaging studies, and others) required; Repeat in 4-6 hours if clinically indicated.? Equal or Higher than 0.121 ng/mL---Abnormal. Myocardial Injury or Necrosis Likely? Biotin has been reported to cause a negative bias, interpret results relative to patient's use of biotin.? ? Lab Interpretation Normal (test code = 20153-2) [facility] - DRUG SCREEN [id number] 22:36:00 Test Item Value Reference Range Interpretation Comments BENZO U (test code = Presumptive Positive Negative A 1184741884) CLAUDIA U (test code = Negative Negative 7819450747) AMPHET (test code = Negative Negative 8018538021) THC (test code = Negative Negative 4878520298) METHADONE (test code = Negative Negative 2623335764) Meth U (test code = Negative Negative 7731064404) OPIATES (test code = Negative Negative 8800424628) Cocaine Metabolite (test Negative Negative code = 6004297985) PROPOXY (test code = Negative Negative 4285381093) Tric U (test code = Negative Negative 7504798691) PCP (test code = Negative Negative 2680434558) OXYCOD (test code = Negative Negative 8007751987) TAMIKO (test code = TAMIKO) Urine Drug Cutoff RangesBenzodiazepines : ? ? 150 ng/mLBarbiturates: ?200 ng/mLAmphetamine: ? 500 ng/mLCannabinoids: ?50?ng/mLMethadone: ? 200 ng/mLMethamphetamine: ? 500 ng/mL Opiates: ? 100 ng/mL or 2000 ng/mLCocaine: ? 150 ng/mLPropoxyphene:?30 0 ng/mLTricyclics:?300 ng/mLOxycodone:? 100 ng/mLPCP:? 25?ng/mLThe results are to be used only for medical (i.e., treatment) purposes. Unconfirmed screening results must not be used for non-medical purposes (e.g., employment testing, legal testing). Lab Interpretation (test Abnormal code = 68644-5) [facility] SpringsCOM. METABOLIC PANEL (82255)2019-01-24 22:30:00 Test Item Value Reference Range Interpretation Comments NA (test code = 148 mmol/L 135-145 H 2996942147) K (test code = 4.0 mmol/L 3.5-5 7180628835) CL (test code = 110 mmol/L 98-108 H 9346033750) CO2 TOTAL (test code = 24 mmol/L 23-31 3160882554) AGAP (test code = 2-16 0228824981) BUN (test code = 9 mg/dL 7-23 1055037388) GLUCOSE (test code = 85 mg/dL 70-110 0587282618) CREATININE (test code = 0.67 mg/dL 0.6-1.25 5065662101) TOTAL BILI (test code = 0.2 mg/dL 0.1-1.3 5726095038) CALCIUM (test code = 8.7 mg/dL 8.6-10.6 1631329587) T PROTEIN (test code = 7.8 g/dL 6.3-8.2 7577966148) ALBUMIN (test code = 4.7 g/dL 3.5-5 3688411320) ALK PHOS (test code = 47 U/L 34-122 1072750055) ALT(SGPT) (test code = 19 U/L 9-51 7841485818) AST(SGOT) (test code = 25 U/L 13-40 8095200453) eGFR Calculation mL/min/1.73m2 (Non-) (test code = 3830179048) eGFR Calculation mL/min/1.73m2 () (test code = 1935352001) TAMIKO (test code = TAMIKO) Association of Glomerular Filtration Rate (GFR) and Staging of Kidney Disease*+ + + +| GFR (mL/min/1.73 m2)?| With Kidney Damage?|?Without Kidney Damage+ --------+ --------+ +|?>90?|?S tage one?|? Normal?+ ---------+ ---------+ +|?60-89? |?Stage two?|? Decreased GFR? + --+ --+ ------+|?30-59?|?Stage three?|? Stage three? + --+ --+ ------+|?15-29?|?Stage four? |? Stage four?+ -------+ -------+ +|?<15 (or dialysis)?|?Stage five? |? Stage five?+ -------+ -------+ +*Each stage assumes the associated GFR level has been in effect for at least three months.?Stages 1 to 5, with or without kidney disease, indicate chronic kidney disease.Notes: Determination of stages one and two (with eGFR >59mL/min/1.73 m2) requires estimation of kidney damage for at least three months as defined by structural or functional abnormalities of the kidney, manifested by either:Pathological abnormalities or Markers of kidney damage (including abnormalities in the composition of the blood or urine or abnormalities in imaging tests). Lab Interpretation Abnormal (test code = 57953-5) [facility]2019-09-[facility] 22:30:00 Test Item Value Reference Range Interpretation Comments LIPASE (test code = 7584488121) 112 U/L 0-220 Lab Interpretation (test code = Normal 63829-0) [facility] WITH [id number] 22:07:00 Test Item Value Reference Range Interpretation Comments WBC (test code = See_Comment [Automated message] 6690-2) The system TRAN.SL generated this result transmitted ref erence range: 4.20 - 1 0.70 10*3/?L. The re ference range was not u sed to interpret this result as normal/abnor mal. RBC (test code = See_Comment [Automated message] 509-8) The system TRAN.SL generated this result transmitted ref erence range: 4.26 - 5 .52 10*6/?L. The re ference range was not u sed to interpret this result as normal/abnor mal. HGB (test code = 15.1 g/dL 12.2-16.4 718-7) HCT (test code = 45.2 % 38.4-49.3 4544-3) MCV (test code = 89.3 fL 81.7-95.6 787-2) MCH (test code = 29.8 pg 26.1-32.7 785-6) MCHC (test code = 33.4 g/dL 31.2-35 786-4) RDW-SD (test code 42.0 fL 38.5-51.6 = 84426-6) RDW-CV (test code 12.8 % 12.1-15.4 = 788-0) PLT (test code = See_Comment [Automated message] 647-3) The system TRAN.SL generated this result transmitted ref erence range: 150 - 32 8 10*3/?L. The re ference range was not u sed to interpret this result as normal/abnor mal. MPV (test code = 10.7 fL 9.8-13 49713-9) NRBC/100 WBC (test See_Comment [Automat ed message] code = 0491776888) The syste [employer] which generated this result transmitted ref erence range: 0.0 - 10 .0 /100 WBCs. The refer ence range was not u sed to interpret this result as normal/abnor mal. NRBC x10^3 (test <0.01 See_Comment [Automated message] code = 6663325267) The syste m which generated this result transmitted ref erence range: 10*3/?L. The reference range was not used to interpr et this result as normal/abnormal . GRAN MAT (NEUT) % 55.2 % (test code = 770-8) IMM GRAN % (test 0.20 % code = 0570432804) LYMPH % (test code 29.8 % = 736-9) MONO % (test code 9.8 % = 5905-5) EOS % (test code = 4.4 % 713-8) BASO % (test code 0.6 % = 706-2) GRAN MAT 4.72 10*3/uL 1.99-6.95 x10^3(ANC) (test code = 2759865208) IMM GRAN x10^3 <0.03 0-0.06 (test code = 3987129638) LYMPH x10^3 (test 2.55 10*3/uL 1.09-3.23 code = 731-0) MONO x10^3 (test 0.84 10*3/uL 0.36-1.02 code = 742-7) EOS x10^3 (test 0.38 10*3/uL 0.06-0.53 code = 711-2) BASO x10^3 (test 0.05 10*3/uL 0.01-0.09 code = 704-7) [facility]2019-08-13 23:03:00 Test Item Value Reference Range Interpretation Comments APPEARANCE (test code = Clear Clear 6314039255) COLOR (test code = Yellow Yellow 1752966790) PH (test code = 4.8-8.0 4590203884) SP GRAVITY (test code = >=1.030 1.003-1.030 5281954404) GLU U QUAL (test code = Negative Negative 2350918577) BLOOD (test code = Negative Negative 0143322590) KETONES (test code = Negative Negative 1989001296) PROTEIN (test code = Negative Negative 2887-8) UROBILIN (test code = 0.2 mg/dL See_Comment [Auto mated message] 6545709202) The system TRAN.SL generated this result transmit luis reference range : 0-1.0 mg/dL. Th e reference range was not used to interpret this result as normal/abnormal . BILIRUBIN (test code = Negative Negative 9174154457) NITRITE (test code = Negative Negative 9665963496) LEUK GINO (test code = Negative Negative 2072625584) RBC/HPF (test code = See_Comment [Autom ated message] 1202428688) The system TRAN.SL generated this result transmit luis reference range : 0 - 3 HPF. The refe rence range was not u sed to interpret th is result as normal/abnormal . WBC/HPF (test code = See_Comment [Autom ated message] 2526296589) The system TRAN.SL generated this result transmit luis reference range : 0 - 5 HPF. The refe rence range was not u sed to interpret th is result as normal/abnormal . BACTERIA (test code = Few Negative A 4520492075) Lab Interpretation (test Abnormal code = 49839-9) [facility]. METABOLIC PANEL (69635)2018-12-21 22:57:00 Test Item Value Reference Range Interpretation Comments NA (test code = 145 mmol/L 135-145 1044194771) K (test code = 3.7 mmol/L 3.5-5 7309933560) CL (test code = 106 mmol/L 98-108 3232381080) CO2 TOTAL (test code = 24 mmol/L 23-31 9916472574) AGAP (test code = 2-16 6637002316) BUN (test code = 9 mg/dL 7-23 1497745267) GLUCOSE (test code = 129 mg/dL 70-110 H 5133442233) CREATININE (test code = 0.75 mg/dL 0.6-1.25 6756649984) TOTAL BILI (test code = 0.3 mg/dL 0.1-1.8 6883238773) CALCIUM (test code = 9.1 mg/dL 8.6-10.6 9375501352) T PROTEIN (test code = 7.9 g/dL 6.3-8.2 6915886359) ALBUMIN (test code = 4.5 g/dL 3.5-5 6461441923) ALK PHOS (test code = 66 U/L 34-122 3125166420) ALT(SGPT) (test code = 62 U/L 9-51 H 5464398950) AST(SGOT) (test code = 42 U/L 13-40 H 3814522035) eGFR Calculation mL/min/1.73m2 (Non-) (test code = 5220090800) eGFR Calculation mL/min/1.73m2 () (test code = 9174771533) TAMIKO (test code = TAMIKO) Association of Glomerular Filtration Rate (GFR) and Staging of Kidney Disease*+ + + +| GFR (mL/min/1.73 m2)?| With Kidney Damage?|?Without Kidney Damage+ --------+ --------+ +|?>90?|?S tage one?|? Normal?+ ---------+ ---------+ +|?60-89? |?Stage two?|? Decreased GFR? + --+ --+ ------+|?30-59?|?Stage three?|? Stage three? + --+ --+ ------+|?15-29?|?Stage four? |? Stage four?+ -------+ -------+ +|?<15 (or dialysis)?|?Stage five? |? Stage five?+ -------+ -------+ +*Each stage assumes the associated GFR level has been in effect for at least three months.?Stages 1 to 5, with or without kidney disease, indicate chronic kidney disease.Notes: Determination of stages one and two (with eGFR >59mL/min/1.73 m2) requires estimation of kidney damage for at least three months as defined by structural or functional abnormalities of the kidney, manifested by either:Pathological abnormalities or Markers of kidney damage (including abnormalities in the composition of the blood or urine or abnormalities in imaging tests). Lab Interpretation Abnormal (test code = 24438-7) [facility]2019-08[facility] 22:57:00 Test Item Value Reference Range Interpretation Comments LIPASE (test code = 6167599303) 296 U/L 0-220 H Lab Interpretation (test code = Abnormal 67368-7) [facility]2019-08-13 22:57:00 Test Item Value Reference Range Interpretation Comments MAGNESIUM (test code = 9118574725) 1.9 mg/dL 1.7-2.4 Lab Interpretation (test code = Normal 68695-0) [facility] WITH [id number] 22:38:00 Test Item Value Reference Range Interpretation Comments WBC (test code = See_Comment [Automated 2202-2) message] The sy stem which generated this result transmitted reference range : 4.20 - 10.70 10*3/?L. The reference range was not used to interpret this result as normal/abnormal . RBC (test code = See_Comment [Automated 022-1) message] The sy stem which generated this result transmitted reference range : 4.26 - 5.52 10*6/?L. The reference range was not used to interpret this result as normal/abnormal . HGB (test code = 15.1 g/dL 12.2-16.4 718-7) HCT (test code = 45.2 % 38.4-49.3 4544-3) MCV (test code = 90.9 fL 81.7-95.6 787-2) MCH (test code = 30.4 pg 26.1-32.7 785-6) MCHC (test code = 33.4 g/dL 31.2-35 786-4) RDW-SD (test code = 44.4 fL 38.5-51.6 64974-4) RDW-CV (test code = 13.3 % 12.1-15.4 788-0) PLT (test code = See_Comment [Automated 777-3) message] The sy stem which generated this result transmitted reference range : 150 - 328 10*3/ ?L. The reference r javier was not used to interpret this result as normal/abnormal . MPV (test code = 10.0 fL 9.8-13 39228-4) NRBC/100 WBC (test See_Comment [Automat ed code = 2759444280) message] The system which generated this result transmitted reference range : 0.0 - 10.0 /100 WBCs. The refer ence range was not u sed to interpret th is result as normal/abnormal . NRBC x10^3 (test code <0.01 See_Comment [Auto mated = 7949993320) message] The s ystem which generated this result transmitted reference range : 10*3/?L. The reference range was not used to interpret this result as normal/abnormal . GRAN MAT (NEUT) % 53.1 % (test code = 770-8) IMM GRAN % (test code 0.50 % = 9800698263) LYMPH % (test code = 27.1 % 736-9) MONO % (test code = 10.7 % 5905-5) EOS % (test code = 7.7 % 713-8) BASO % (test code = 0.9 % 706-2) GRAN MAT x10^3(ANC) 5.47 10*3/uL 1.99-6.95 (test code = 8614015064) IMM GRAN x10^3 (test 0.05 10*3/uL 0-0.06 code = 2159939950) LYMPH x10^3 (test code 2.79 10*3/uL 1.09-3.23 = 731-0) MONO x10^3 (test code 1.10 10*3/uL 0.36-1.02 H = 742-7) EOS x10^3 (test code = 0.79 10*3/uL 0.06-0.53 H 711-2) BASO x10^3 (test code 0.09 10*3/uL 0.01-0.09 = 704-7) Lab Interpretation Abnormal (test code = 28356-8) [facility] SpringsMYOCARD IMAGING, MULTI, [id number] 14:45:00FINAL REPORT PROCEDURE: Rest/Stress MYOCARDIAL PERFUSION SPECT with treadmill\\XA9\\ CPT CODE: 58260 INDICATION: Chest pain HISTORY: Cardiac risk factors: [...] tracer distribution. 6. No previous [facility] study for comparison. NONINVASIVE RISK STRATIFICATION: The above findings are considered low risk (<1% annual mortality rate) based on the following criterion:- Normal or small myocardial perfusion defect at rest or with stress(JACC. 2012;59(9):857-33.) Signed: [facility] Verified Date/Time: 03/17/2017 14:45:11 Reading Location: [place] [id number] Reading Room HEMOGLOBIN [id number] 08:29:00 Test Item Value Reference Range Interpretation Comments HEMOGLOBIN A1C (BEAKER) (test code = 5.5 % 4.3-6.1 368) CREATINE KINASE (CK), TOTAL AND [id number] 02:45:00 Test Item Value Reference Range Interpretation Comments CREATINE KINASE TOTAL (BEAKER) 34 U/L 29-200 (test code = 380) CREATINE KINASE-MB (BEAKER) (test 0.4 ng/mL 0.0-6.6 code = 750) CREATINE KINASE-MB INDEX (BEAKER) 1.2 % (test code = 395) CK-MB Reference Range:<6.7 Normal6.7-10.0 Borderline>10.0 AbnormalTROPONIN [id number] 02:45:00 Test Item Value Reference Range Interpretation [...] and persistent tachyarrhythmia.RAD, CHEST, 1 VIEW, NON [id number] 20:40:00Reason for exam:->chest painShould this be performed at the bedside?->YesFINAL REPORT EXAMINATION: AP PORTABLE CHEST RADIOGRAPH CLINICAL INDICATION:Chest pain IMPRESSION: Compared with 04/30/2016. No evidence of focal lung consolidation, pulmonary edema or pleural effusion. The heart size is normal. Mediastinal contours are sharp. No evidence of an acute osseous abnormality or pneumothorax. Signed: Igor [place] [facility] Verified Date/Time: 03/16/2017 20:40:21 Reading Location: [address] Reading Room B-TYPE NATRIURETIC FACTOR (BNP)2017-03-16 20:30:00 Test Item Value Reference Range Interpretation Comments B-TYPE NATRIURETIC PEPTIDE (BEAKER) < pg/mL 0-100 (test code = 700) COMPREHENSIVE METABOLIC [id number] 20:30:00 Test Item Value Reference Range Interpretation [...] ATED GFR. CREATINE KINASE (CK), TOTAL AND [id number] 20:28:00 Test Item Value Reference Range Interpretation Comments CREATINE KINASE TOTAL (BEAKER) 50 U/L 29-200 (test code = 380) CREATINE KINASE-MB (BEAKER) (test 0.5 ng/mL 0.0-6.6 code = 750) CREATINE KINASE-MB INDEX (BEAKER) 1.0 % (test code = 395) CK-MB Reference Range:<6.7 Normal6.7-10.0 Borderline>10.0 AbnormalTROPONIN [id number] 20:28:00 Test Item Value Reference Range Interpretation [...] failure, acidosis, acute neurological disease, and persistent tachyarrhythmia.[id number] 20:21:00 Test Item Value Reference Range Interpretation Comments MAGNESIUM (BEAKER) 2.2 mg/dL 1.6-2.6 Specimen slightly (test code = 627) hemolyzed [id number] 20:21:00 Test Item Value Reference Range Interpretation Comments PHOSPHORUS (BEAKER) 3.9 mg/dL 2.3-4.7 Specimen slightly (test code = 604) hemolyzed LIPID [id number] 20:21:00 Test Item Value Reference Range Interpretation [...] Borderline 130-159 High 160-189 Very High >=190PROTHROMBIN TIME/[id number] 20:07:00 Test Item Value Reference Range Interpretation Comments PROTIME (BEAKER) (test code = 13.0 seconds 11.7-14.7 759) INR (BEAKER) (test code = 370) 1.0 <=5.9 RECOMMENDED COUMADIN/WARFARIN INR THERAPY RANGESSTANDARD DOSE: 2.0 - 3.0 Includes: PROPHYLAXIS forvenous thrombosis, systemic embolization; TREATMENT for venous thrombosis and/or pulmonary embolus.HIGH RISK: Target INR is 2.5-3.5 for patients with mechanical heart valves.[id number] 20:07:00 Test Item Value Reference Range Interpretation Comments PARTIAL THROMBOPLASTIN TIME 26.9 seconds 22.5-36.0 (BEAKER) (test code = 760) CBC W/PLT COUNT & AUTO [id number] 19:57:00 Test Item Value Reference Range Interpretation [...] % 0-1 PERCENT (BEAKER) (test code = 8228)
[2021-04-16] MEDS ORDERED: IBUPROFEN 200 MG TAB PO ONE (16:09)
[2021-04-16] MEDS ORDERED: HYDROCODONE/APAP 10/325 TAB ONE (16:10)
--- NOTE | 2021-04-16 16:20 | EDPHYS ---
Physician Documentation [facility] Name: Srini Simpson Age: 35 yrs Sex: Male : 1985 Arrival Date: 04/16/2021 Time: 14:44 Bed 12 Private MD: [place] Physician Jeevan Shaw HPI: 04/16 16:03 This 35 yrs old Male presents to ER via Ambulatory with complaints of Side nehemias Pain. 16:03 This 35 yrs old Male presents to ER via Ambulatory with complaints of Side nehemias Pain. 16:03 The patient or guardian reports chest pain that is located primarily in the anterior nehemias chest wall, diaphragm and right breast. Onset: The symptoms/episode began/occurred 1 day(s) ago. The pain does not radiate. Associated signs and symptoms: The patient has no apparent associated signs or symptoms. The chest pain is described as aching. Duration: The patient or guardian reports multiple episodes, that wax and wane. Modifying factors: The symptoms are alleviated by remaining still, the symptoms are aggravated by activity, deep breath, movement, palpation of area, twisting torso. Severity of pain: At its worst the pain was moderate in the emergency department the pain has improved. The patient has not experienced similar symptoms in the past. Historical: - Home Meds: 15:42 lisinopril 10 mg Oral tab 1 tab once daily [Active]; Klonopin 1 mg Oral tab every 6 jh5 hours [Active]; metoprolol tartrate 50 mg Oral tab 1 tab 2 times per day [Active]; - PMHx: 15:42 Anxiety; Depression; ETOH/drug abuse; Hypertension; Pyloric Stenosis; jh5 - Immunization history:: Adult Immunizations up to date, Client reports receiving the 2nd dose of the Covid vaccine. - Social history:: Smoking status: Patient reports the use of cigarette tobacco products, smokes one-half pack cigarettes per day. - Family history:: not pertinent. ROS: 16:03 Constitutional: Negative for fever, chills, and weight loss, Eyes: Negative for injury, nehemias pain, redness, and discharge, ENT: Negative for injury, pain, and discharge, Neck: Negative for injury, pain, and swelling, Cardiovascular: Negative for chest pain, palpitations, and edema, Respiratory: Negative for shortness of breath, cough, wheezing, and pleuritic chest pain, Abdomen/GI: Negative for abdominal pain, nausea, vomiting, diarrhea, and constipation, Back: Negative for injury and pain, : Negative for injury, bleeding, discharge, and swelling, MS/Extremity: Negative for injury and deformity, Skin: Negative for injury, rash, and discoloration, Neuro: Negative for headache, weakness, numbness, tingling, and seizure, Psych: Negative for depression, anxiety, suicide ideation, homicidal ideation, and hallucinations, Allergy/Immunology: Negative for hives, rash, and allergies, Endocrine: Negative for neck swelling, polydipsia, polyuria, polyphagia, and marked weight changes, Hematologic/Lymphatic: Negative for swollen nodes, abnormal bleeding, and unusual bruising. Exam: 16:03 Constitutional: This is a well developed, well nourished patient who is awake, alert, nehemias and in no acute distress. Head/Face: Normocephalic, atraumatic. Eyes: Pupils equal round and reactive to light, extra-ocular motions intact. Lids and lashes normal. Conjunctiva and sclera are non-icteric and not injected. Cornea within normal limits. Periorbital areas with no swelling, redness, or edema. ENT: Nares patent. No nasal discharge, no septal abnormalities noted. Tympanic membranes are normal and external auditory canals are clear. Oropharynx with no redness, swelling, or masses, exudates, or evidence of obstruction, uvula midline. Mucous membranes moist. Neck: Trachea midline, no thyromegaly or masses palpated, and no cervical lymphadenopathy. Supple, full range of motion without nuchal rigidity, or vertebral point tenderness. No Meningismus. Cardiovascular: Regular rate and rhythm with a normal S1 and S2. No gallops, murmurs, or rubs. Normal PMI, no JVD. No pulse deficits. Respiratory: Lungs have equal breath sounds bilaterally, clear to auscultation and percussion. No rales, rhonchi or wheezes noted. No increased work of breathing, no retractions or nasal flaring. Abdomen/GI: Soft, non-tender, with normal bowel sounds. No distension or tympany. No guarding or rebound. No evidence of tenderness throughout. Back: No spinal tenderness. No costovertebral tenderness. Full range of motion. Male : Normal genitalia with no discharge or lesions. Skin: Warm, dry with normal turgor. Normal color with no rashes, no lesions, and no evidence of cellulitis. MS/ Extremity: Pulses equal, no cyanosis. Neurovascular intact. Full, normal range of motion. Neuro: Awake and alert, GCS 15, oriented to person, place, time, and situation. Cranial nerves II-XII grossly intact. Motor strength 5/5 in all extremities. Sensory grossly intact. Cerebellar exam normal. Normal gait. Psych: Awake, alert, with orientation to person, place and time. Behavior, mood, and affect are within normal limits. 16:03 Chest/axilla: Inspection: normal, Palpation: tenderness, that is moderate, of the diaphragm and right breast. Vital Signs: 15:40 BP 148 / 82; Pulse 75; Resp 18; Temp 98.5; Pulse Ox 98% ; Weight 97.52 kg; Height 5 ft. jh5 8 in. (172.72 cm); 15:40 Body Mass Index 32.69 (97.52 kg, 172.72 cm) 5 MDM: 15:36 Patient medically screened. nehemias 16:11 Differential diagnosis: Chest Wall Contusion Chest Wall Injury Pneumothorax Pulmonary nehemias Contusion Rib Fracture. Data reviewed: vital signs, nurses notes, radiologic studies, CT scan. Data interpreted: warrant clerk: not applicable for this patient encounter. Pulse oximetry: on room air is 98 %. Counseling: I had a detailed discussion with the patient and/or guardian regarding: the historical points, exam findings, and any diagnostic results supporting the discharge/admit diagnosis, radiology results, the need for outpatient follow up, for definitive care, a family practitioner. Administered Medications: 16:13 Not Given (Patient Refused): [place] (HYDROcodone-acetaminophen) 10 mg-325 mg 1 tabs PO jh5 once; RASS on ADMIN: Combtv4, Very Agttd3, Agttd2, Rstlss1, AlertClm0, Drwsy-1, Lt Sdtn-2, Mod Sdtn-3, Dp Sdtn-4, UnArsble-5 16:14 Not Given (Patient Refused): Motrin (ibuprofen) 600 mg PO once jh5 Disposition Summary: 04/16/21 16:19 Discharge Ordered Location: Home nehemias Problem: new nehemias Symptoms: have improved nehemias Condition: Stable nehemias Diagnosis - Contusion of front wall of thorax nehemias - Strain of muscle and tendon of front wall of thorax nehemias Followup: nehemias - With: Private Physician - When: 2 - 3 days - Reason: Recheck today's complaints, Continuance of care, Re-evaluation by your physician Discharge Instructions: - Discharge Summary Sheet nehemias - Chest Wall Pain nehemias - Costochondritis nehemias - Costochondritis, Rtiv-zt-Ozns nehemias - Chest Wall Pain, [id number]-[id number] nehemias Forms: - Medication Reconciliation Form nehemias - Thank You Letter nehemias - Antibiotic Education nehemias - Prescription Opioid Use nehemias Prescriptions: - Diclofenac Sodium 75 mg Oral tablet,delayed release (DR/EC) - take 1 tablet by ORAL route 2 times per day; 2 tablet; Refills: 0, Product nehemias Selection Permitted - Cyclobenzaprine 5 mg Oral Tablet - take 1 tablet by ORAL route 3 times per day As needed; 15 tablet; Refills: 0, nehemias Product Selection Permitted Signatures: Dispatcher [employer] Jeevan Solorio MD MD cha Rees, Jessica RN RN jh5
--- NOTE | 2021-04-16 16:20 | ER ---
Nurse's Notes [facility] Name: Srini Simpson Age: 35 yrs Sex: Male : 1985 Arrival Date: 04/16/2021 Time: 14:44 Bed 12 Private MD: Diagnosis: Contusion of front wall of thorax;Strain of muscle and tendon of front wall of thorax Presentation: 04/16 15:40 Chief complaint: Patient states: right upper quadrant pain, cough, diarrhea x1 day; jh5 progressively worse today. Coronavirus screen: Vaccine status: Patient reports receiving the 2nd dose of the covid vaccine. Client denies travel out of the [place] in the last 14 days. Ebola Screen: Patient negative for fever greater than or equal to 101.5 degrees Fahrenheit, and additional compatible Ebola Virus Disease symptoms Patient denies exposure to infectious person. Patient denies travel to an Ebola-affected area in the 21 days before illness onset. Initial Sepsis Screen: Does the patient meet any 2 criteria? No. Patient's initial sepsis screen is negative. Does the patient have a suspected source of infection? No. Patient's initial sepsis screen is negative. Risk Assessment: Do you want to hurt yourself or someone else? Patient reports no desire to harm self or others. Onset of symptoms was April 15, 2021. 15:40 Method Of Arrival: Ambulatory [facility] 15:40 Acuity: CHRISTINE 3 jh5 Triage Assessment: 15:43 General: Appears in no apparent distress. uncomfortable, well groomed, well developed, jh5 well nourished, Behavior is calm, cooperative, appropriate for age. Pain: Complains of pain in right upper quadrant Pain does not radiate. Neuro: No deficits noted. Level of Consciousness is awake, alert, obeys commands, Oriented to person, place, time, situation, Appropriate for age Speech is normal, Intact. Cardiovascular: No deficits noted. Capillary refill < 3 seconds Patient's skin is warm and dry. Respiratory: No deficits noted. Airway is patent Trachea midline Respiratory effort is even, unlabored, Respiratory pattern is regular, symmetrical. GI: Reports upper abdominal pain, diarrhea. Historical: - Home Meds: 15:42 lisinopril 10 mg Oral tab 1 tab once daily [Active]; Klonopin 1 mg Oral tab every 6 jh5 hours [Active]; metoprolol tartrate 50 mg Oral tab 1 tab 2 times per day [Active]; - PMHx: 15:42 Anxiety; Depression; ETOH/drug abuse; Hypertension; Pyloric Stenosis; [facility] - Immunization history:: Adult Immunizations up to date, Client reports receiving the 2nd dose of the Covid vaccine. - Social history:: Smoking status: Patient reports the use of cigarette tobacco products, smokes one-half pack cigarettes per day. - Family history:: not pertinent. Screenin:45 Abuse screen: Denies threats or abuse. Denies injuries from another. Nutritional [facility] screening: No deficits noted. Tuberculosis screening: No symptoms or risk factors identified. Fall Risk None identified. Assessment: 15:45 Reassessment: see triage. [facility] 16:30 Reassessment: Pt requesting to leave prior to chest xray; pt walks out prior to [facility] paperwork and xrays. Pt previously refused pain meds and since has asked to leave and proceeded to walk out. As pt walks out of , pt is offered paperwork and continues to walk out. Vital Signs: 15:40 BP 148 / 82; Pulse 75; Resp 18; Temp 98.5; Pulse Ox 98% ; Weight 97.52 kg; Height 5 ft. [facility] 8 in. (172.72 cm); 15:40 Body Mass Index 32.69 (97.52 kg, 172.72 cm) [facility] ED Course: 14:44 Patient arrived in ED. ds1 15:36 Jeevan Shaw MD is Attending Physician. [facility] 15:42 Triage completed. [facility] 15:45 Arm band placed on right wrist. [facility] 15:45 Patient has correct armband on for positive identification. Bed in low position. Call [facility] light in reach. Side rails up X 1. Adult w/ patient. 15:47 Janine Sierra, ALTON is Primary Nurse. [facility] Administered Medications: 16:13 Not Given (Patient Refused): [place] (HYDROcodone-acetaminophen) 10 mg-325 mg 1 tabs PO [facility] once; RASS on ADMIN: Combtv4, Very Agttd3, Agttd2, Rstlss1, AlertClm0, Drwsy-1, Lt Sdtn-2, Mod Sdtn-3, Dp Sdtn-4, UnArsble-5 16:14 Not Given (Patient Refused): Motrin (ibuprofen) 600 mg PO once jh5 Outcome: 16:19 Discharge ordered by MD. del cid 16:33 Eloped from patient exam room, after seeing physician [facility] 16:33 Condition: good 16:34 Patient left the ED. 5 Signatures: Jeevan Shaw MD MD cha Sanford, Demi ds1 Janine Sierra RN RN [facility]
[2021-04-16 16:48] VITALS: BP 148/82; TEMP 98.5; O2SAT 98
== END 2021-04-16 16:34 | disposition home or self-care (01) ==
LOC: ER 14:42
DX: S29.011A Strain of muscle and tendon of front wall of thorax, initial encounter (principal); I10 Essential (primary) hypertension; F41.8 Other specified anxiety disorders; F17.210 Nicotine dependence, cigarettes, uncomplicated
CPT/HCPCS: 99281

== ENCOUNTER 2021-05-27 03:35 | Emergency (ER) | payer SELFPAY ==
--- OUTSIDE RECORDS SUMMARY | 2021-05-27 03:47 | XMS REPORT | Continuity of Care Document ---
:1985 Author Organization [facility] t Address [address] [place] [address] Care Team Providers Name Role Phone Marly BELTRÁN, Maame Primary Care Physician Unavailable KRISTINA Attending Clinician Unavailable Margarita Marroquin Attending Clinician John BELTRÁN Attending Clinician Kristina BELTRÁN Attending Clinician Deion SEYMOUR Attending Clinician Unavailable Deion Seymour DO Attending Clinician Singer LAW Attending Clinician Shabbir BELTRÁN Attending Clinician Jeff Attending Clinician Denis LAW Attending Clinician Ashlie BELTRÁN, M. Attending Clinician Lexy Thomas MD Attending Clinician Fatimah BELTRÁN S Attending Clinician Ray JENKINS Attending Clinician Unavailable Doctor Unassigned, Name Attending Clinician Unavailable Clinic, Neurology Continuity Attending Clinician UnavailiLndsey DAVENPORT Attending Clinician Alejandro Attending Clinician Unavailable JEREMIAH Attending Clinician Unavailable Kem Herrera Attending Clinician Jeremiah DAVENPORT Attending Clinician Joseph GARCIA Attending Clinician Unavailable JOHN Admitting Clinician Unavailable John BELTRÁN Admitting Clinician Deion SEYMOUR Admitting Clinician Unavailable Denis LAW Admitting Clinician ASHLIE Admitting Clinician Unavailable JEREMIAH Admitting Clinician Unavailable Joseph GARCIA Admitting Clinician Unavailable Payers Payer Name Policy Type Policy Number Effective Date Expiration Date [employer] [facility] [id number] 2928-06-13 HALFWAY 00:00:00 Problems Condition Condition Condition Status Onset Resolution Last Treating Co mments Source Name Details Category Date Date Treatment Clinician Date Anxiety Anxiety Disease Active 2020-05 Univers 2-26 ity of 00:00: [address] Cigarette Cigarette Disease Active 2020-05 Uni vers smoker smoker 2-26 ity of 00:: [address] Elevated Elevated Disease Active 2020-05 Unive rs brain brain 2-26 ity of natriureti natriureti [place] c peptide c peptide 00 Medi kofi (BNP) (BNP) Branch level level Withdrawal Withdrawal Disease Active U nivers symptoms, symptoms, 6-16 ity of alcohol, alcohol, 00:00: [place] uncomplica uncomplica 00 Me dical [facility] Branch Obesity Obesity Disease Active Univers (BMI (BMI 6-16 ity of 30-39.9) 30-39.9) 00:00: [address] Alcohol Alcohol Disease Active [facility] dependence dependence 01-28 st with with 00:00: Hospita uncomplica uncomplica 00 l luis luis withdrawal withdrawal Suicide Suicide Disease Active [facility]i attempt by attempt by 01-28 st alcohol alcohol 00:00: Hospita poisoning poisoning 00 l 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 pine use 00:00: Hospit a disorder disorder 00 l ЕЛЕНА ЕЛЕНА Disease Active Methodi (generaliz (generaliz 9-20 st ed anxiety ed anxiety 00:00: Ho spita disorder) disorder) 00 l Essential Essential Disease Active Uni vers hypertensi hypertensi 7- it y of on on 00:00: [place] [facility] Family Family Disease Active Univers history of history of 11-09 it y of early CAD early CAD 00:[place] [facility] Family Family Disease Active Univers history of history of 11-09 it y of early CAD early CAD 00:[place] [facility] Chest pain Chest pain Disease Active U nivers 11-08 ity of 00:00: [address] Chest pain Chest pain Disease Active 2016-[address] [facility] Chest Chest Disease Active 2015-[address] [facility] [address] pain, pain, 2-21 [facility] unspecifie unspecifie 00:00: Me dical d type d type 00 Center Allergies, Adverse Reactions, Alerts Allergy Allergy Status Severity Reaction(s) Onset Inactive Treating Comm ents Source Name Type Date Date Clinician NO KNOWN Drug Active Univers ALLERGIE Class ity of S [facility] [place] [facility] Family History Family Member Diagnosis Comments Start Date Stop Date Source Maternal uncle Depression [facility] Maternal uncle Suicide Attempts [facility] Maternal uncle Alcohol abuse [facility] Natural mother Alcohol abuse [facility] Paternal grandfather Heart attack [facility] Natural father [facility] Maternal aunt Depression [facility] Social History Social Habit Start Date Stop Date Quantity Comments Source History of tobacco 1995-01-27 Cigarette smoker [facility] use 00:00:00 (finding) Hospital History SDOH University o f Alcohol Frequency [facility] edical Branch History SDOH University o f Alcohol Std Drinks [facility] [place] [facility] History SDOH University o f Alcohol Comment [place] Med ical Branch Exposure to Not sure University of SARS-CoV-2 (event) [facility] [place] [facility] Alcohol intake 2021-05-05 2021-05-05 Current drinker Unive rsity of 00:00:00 00:00:00 of alcohol [place] Medical (finding) Branch Education 2021-05-05 2021-05-05 13 University of 00:00:00 00:00:00 [facility] [place] [facility] Cigarette 2020-01-28 2020-01-28 [facility]ist pack-years 00:00:00 00:00:00 Hospital History SDOH 2018-11-09 2018-11-09 5 University o f Alcohol Binge 00:00:00 00:00:00 [place] [facility] al Branch Cigarettes smoked 2018-11-08 2018-11-08 Univers ity of current (pack per 00:00:00 00:00:00 [place] ) - Reported Branch Tobacco use and 2018-11-08 2018-11-08 Current user Univers ity of exposure 00:00:00 00:00:00 [facility] [place] [facility] Sex [birth year] Universit y of 00:00:00 00:00:00 [facility] [place] [facility] Smoking Status Start Date Stop Date Source Current every day smoker 2018-11-08 00:00:00 Uni versity of [facility] [place] [facility] Medications Ordered Filled Start Stop Current Ordering Indication Dosage Frequency Signature Comments Components Source Medication Medication Date Date Medication? Clinician (SIG) Name Name ritasaricorey 2020-05 Yes 20mg 20 mg, Univ ers n (LIPITOR) 07-07 Oral, QHS, it y of tablet 20 03:00: [place] dose [place] mg 00 on [facility] 05/05/21 Branch at 2100, Until Discontinu ed, Routine aspirin 81 2020-05- Yes [id number] 81mg Take 1 Univers mg chewable 07-07 tablet by it y of tablet 00:00: 05:59 mouth [place] 00 :[address] [facility] [place] for 30 days. enoxaparin 2020-05 Yes 30mg 30 mg, Unive rs (LOVENOX) 07-06 Subcutaneo ity of injection 23:00: [place], DAILY, [place] 30 mg 00 First dose Medical on [facility] 05/05/21 at 1700, Until Discontinu ed, Routine magnesium 2020-05- No 4g 4 g, IV Univ ers sulfate in 07-06 Piggyback, it y of water 4 16:00: 15:35 ONCE, 1 [place] gram/50 mL 00 :00 dose, On Medic al (8 %) IV [facility] Piggyback 4 05/05/21 g at 1000, Routine pantoprazol 2020-05 Yes 40mg 40 mg, Univ ers e 2-26 Oral, ity of (PROTONIX) 15:00: DAILY, [place] EC tablet 00 First dose Medi kofi 40 mg on [place] [facility] 05/05/21 at 0900, Until Discontinu ed, Routine aspirin 2020-05 Yes 81mg 81 mg, Univers chewable 2- Oral, QAM ity of tablet 81 14:00: WITH [place] mg 00 BREAKFAST, Medical First dose Branch on 05/05/21 at 0800, Until Discontinu ed, Routine lisinopriL 2020-05 Yes 10mg 10 mg, Unive rs (PRINIVIL,Z 2- Oral, BID, it y of ESTRIL) 14:00: First dose [place] tablet 10 00 (after Medical mg last Branch modificati on) on [place] 05/05/21 at 0800, Until Discontinu ed, Routine metoprolol 2020-05 Yes 50mg 50 mg, Unive rs tartrate 2- Oral, BID, ity o f (LOPRESSOR) 14:00: First dose [place] tablet 50 00 on [place] Medical mg 05/05/21 Branch at 0800, Until Discontinu ed, Routine docusate 2020-05 Yes 100mg 100 mg, Unive rs (COLACE) 2- Oral, BID, ity o f capsule 100 14:00: First dose [place] mg 00 on [facility] 05/05/21 Branch at 0800, Until Discontinu ed, Routine lisinopriL 2020-05 Yes 5mg Take 5 mg Un jaqueline 5 mg tablet 07-06 by mouth 2 it y of 12:45: (two) [place] 29 times Medical daily. Branch Last dose given in ED clonazePAM 2020-05 Yes 2mg 2 mg, Univer s (KLONOPIN) 2- Oral, ity of tablet 2 mg 12:28: BIDPRN, [place] as 22 Starting Medical on [place] Branch 05/05/21 at 0628, Until Discontinu ed, anxiety, insomnia ondansetron 2020-05 Yes 4mg 4 mg, Slow Univers (ZOFRAN 2- IV Push, ity of (PF)) 08:29: Q6HPRN, [place] injection 4 21 Starting Medi kofi mg on [place] 05/05/21 at 0229, Until Discontinu ed, Routine, Nausea and Vomiting (N/V) lisinopriL 2021-1 2021- No 10mg 10 mg, Univ ers (PRINIVIL,Z 07-06 Oral, ity of ESTRIL) 07:00: 05:55 ONCE, 1 [place] tablet 10 00 :00 dose, On Medica l mg [place] Branch 05/05/21 at 0100, Routine ketorolac 2020-05- No 15mg 15 mg, Unive rs (TORADOL) 07-06 Slow IV ity of injection 05:45: 04:44 Push, [place] 15 mg 00 :00 ONCE, 1 Medical dose, On Branch 05/04/21 at 2345, TITA LORazepam 2020-05- No 1mg 1 mg, Slow U nivers (ATIVAN) 07-06 IV Push, ity of injection 1 02:45: 02:01 ONCE, 1 [place] mg 00 :00 dose, On Medical Sat Branch 05/04/21 at 2045, STAT atorvastati 2020-05- Yes [id number] 20mg Take 1 Univers n 20 mg 07-06 tablet by ity of tablet 00:00: 05:59 mouth at [place] 00 :00 bedtime Medical for 20 Branch days. FENTanyl PF 2020-05- No 50ug 50 mcg, Un jaqueline (SUBLIMAZE 05-31 Intramuscu it y of (PF)) 15:45: 14:44 lar, ONCE, [place] injection 00 :00 1 dose, On Medi kofi 50 mcg [facility] 03/31/21 at 0945, Routine moxifloxaci 2020-05- No [id number] 400mg Take 1 Univers n 400 mg 0-11 10-22 tablet by ity o f tablet 00:00: 04:59 mouth [place] 00 :00 daily for Medical 10 days. Branch chlorphenir Yes [id number] 4mg Take 1 Univers amine 4 mg 9-16 tablet by ity of tablet 00:00: mouth [place] 00 every 6 Medical (six) Branch hours as needed for Allergies or Runny nose. calcium/mag Yes [id number] 1{each} Take 1 Univers nesium/zinc 9-16 Each by ity o f (CALCIUM-MA 00:00: mouth [place] GNESUIUM-ZI 00 daily. Medica l NC) Branch 333-133-5 mg Tab benzonatate 2020-0 Yes [id number] 100mg Take 1 Univers 100 mg 9-16 capsule by ity of capsule 00:00: mouth 3 [place] 00 (three) Medical times Branch daily as needed for Cough. ondansetron 2020-0 Yes [id number] 4mg Take 1 Univers 4 mg 9-16 tablet by ity of disintegrat 00:00: mouth [place] ing tablet 00 every 8 Medica l (eight) Branch hours as needed for Nausea and Vomiting (N/V). azithromyci 2020-0 Yes [id number] 250mg Take 1 Univers n 9-16 tablet by ity of (ZITHROMAX 00:00: mouth [place] Z-REFUGIO) 250 00 SEE-INSTRU Med ical mg tablet CTIONS. Branch Take 500 mg day 1, then 250 mg days 2 to 5. chlorphenir 2020-0 Yes [id number] 4mg Take 1 Univers amine 4 mg 9-16 tablet by ity of tablet 00:00: mouth [place] 00 every 6 Medical (six) Branch hours as needed for Allergies or Runny nose. calcium/mag 0 Yes [id number] 1{each} Take 1 Univers nesium/zinc 9-16 Each by ity o f (CALCIUM-MA 00:00: mouth [place] GNESUIUM-ZI 00 daily. Medica l NC) Branch 333-133-5 mg Tab benzonatate 2020-0 Yes [id number] 100mg Take 1 Univers 100 mg 9-16 capsule by ity of capsule 00:00: mouth 3 [place] 00 (three) Medical times Branch daily as needed for Cough. ondansetron 2020-0 Yes [id number] 4mg Take 1 Univers 4 mg 9-16 tablet by ity of disintegrat 00:00: mouth [place] ing tablet 00 every 8 Medica l (eight) Branch hours as needed for Nausea and Vomiting (N/V). azithromyci 2020-0 Yes [id number] 250mg Take 1 Univers n 9-16 tablet by ity of (ZITHROMAX 00:00: mouth [place] Z-REFUGIO) 250 00 SEE-INSTRU Med ical mg tablet CTIONS. Branch Take 500 mg day 1, then 250 mg days 2 to 5. chlorphenir 2020-0 Yes [id number] 4mg Take 1 Univers amine 4 mg 9-16 tablet by ity of tablet 00:00: mouth [place] 00 every 6 Medical (six) Branch hours as needed for Allergies or Runny nose. calcium/mag 1-0 Yes [id number] 1{each} Take 1 Univers nesium/zinc 9-16 Each by ity o f (CALCIUM-MA 00:00: mouth [place] GNESUIUM-ZI 00 daily. Medica l NC) Branch 333-133-5 mg Tab benzonatate 2021-0 Yes [id number] 100mg Take 1 Univers 100 mg 9-16 capsule by ity of capsule 00:00: mouth 3 [place] 00 (three) Medical times Branch daily as needed for Cough. ondansetron 2020-0 Yes [id number] 4mg Take 1 Univers 4 mg 9-16 tablet by ity of disintegrat 00:00: mouth [place] ing tablet 00 every 8 Medica l (eight) Branch hours as needed for Nausea and Vomiting (N/V). chlorphenir 2021-0 Yes [id number] 4mg Take 1 Univers amine 4 mg 9-16 tablet by ity of tablet 00:00: mouth [place] 00 every 6 Medical (six) Branch hours as needed for Allergies or Runny nose. calcium/mag 2020-0 Yes [id number] 1{each} Take 1 Univers nesium/zinc 9-16 Each by ity o f (CALCIUM-MA 00:00: mouth [place] GNESUIUM-ZI 00 daily. Medica l NC) Branch 333-133-5 mg Tab benzonatate 2020-0 Yes [id number] 100mg Take 1 Univers 100 mg 9-16 capsule by ity of capsule 00:00: mouth 3 [place] 00 (three) Medical times Branch daily as needed for Cough. ondansetron 1-0 Yes [id number] 4mg Take 1 Univers 4 mg 9-16 tablet by ity of disintegrat 00:00: mouth [place] ing tablet 00 every 8 Medica l (eight) Branch hours as needed for Nausea and Vomiting (N/V). chlorphenir 2021-0 Yes [id number] 4mg Take 1 Univers amine 4 mg 9-16 tablet by ity of tablet 00:00: mouth [place] 00 every 6 Medical (six) Branch hours as needed for Allergies or Runny nose. calcium/mag 2021-0 Yes [id number] 1{each} Take 1 Univers nesium/zinc 9-16 Each by ity o f (CALCIUM-MA 00:00: mouth [place] GNESUIUM-ZI 00 daily. Medica l NC) Branch 333-133-5 mg Tab benzonatate Yes [id number] 100mg Take 1 Univers 100 mg 9-16 capsule by ity of capsule 00:00: mouth 3 [place] 00 (three) Medical times Branch daily as needed for Cough. ondansetron Yes [id number] 4mg Take 1 Univers 4 mg 9-16 tablet by ity of disintegrat 00:00: mouth [place] ing tablet 00 every 8 Medica l (eight) Branch hours as needed for Nausea and Vomiting (N/V). vitamin 2020- No [id number] 1{tbl} Take 1 Univers D3-folic 9-16 10-17 tablet by ity o f acid 125 00:00: 04:59 mouth [place] mcg (5,000 00 :00 daily for Medi kofi unit)-1 mg 30 days. Branc h Tab vitamin 2020- No [id number] 1{tbl} Take 1 Univers D3-folic 9-16 10-17 tablet by ity o f acid 125 00:00: 04:59 mouth [place] mcg (5,000 00 :00 daily for Medi kofi unit)-1 mg 30 days. Branc h Tab vitamin 2020- No [id number] 1{tbl} Take 1 Univers D3-folic 9-16 10-17 tablet by ity o f acid 125 00:00: 04:59 mouth [place] mcg (5,000 00 :00 daily for Medi kofi unit)-1 mg 30 days. Branc h Tab azithromyci 2020- No [id number] 250mg Take 1 Univers n 9-16 10-11 tablet by ity of (ZITHROMAX 00:00: 00:00 mouth [place] Z-REFUGIO) 250 00 :00 SEE-INSTRU Med ical mg tablet CTIONS. Branch Take 500 mg day 1, then 250 mg days 2 to 5. NaCl 0.9% 2020- No 500mL at 999 Univ ers (NS) bolus 12-07 07-30 mL/hr, 500 it y of infusion 14:45: 14:15 mL, IV [place] 500 mL 00 :00 Piggyback, Medical ONCE, 1 Branch dose, Thu12/07/20 at 0945, STAT metoprolol 0 2020- No 50mg Take 50 mg Univers succinate 10-2820 by mouth 2 ity of XL (TOPROL 14:52: 00:00 (two) [place] XL) 25 mg 24 :00 times Medical 24 hr daily. [place] tablet diazePAM 0 2020- No 10mg Take 10 mg Un jaqueline (VALIUM) 10 10-2820 by mouth 2 i ty of mg tablet 14:52: 00:00 (two) [place] 24 :00 times Medical daily. [place] cyanocobala Yes 1000ug 1,000 mcg, Univers min 10-26 Subcutaneo ity of (VITAMIN 22:00: us, Q24H, [place] B12) 00 First dose Medical injection on Thu [place] 1,000 mcg 10/26/20 at 1700, Until Discontinu ed, Routine chlordiazeP Yes 25mg 25 mg, Univ ers OXIDE 10-26 Oral, TID, ity of (LIBRIUM) 21:00: First dose [place] capsule 25 00 on Thu Medical mg 10/26/20 at Branch 1600, Until Discontinu ed, Routine cholecalcif 0 Yes 2000U 2,000 Univ ers becka -18 Units, ity of (vitamin 21:00: Oral, [place] D3) tablet 00 DAILY, Medical 2,000 Units First dose Br anch on Thu10/26/20 at 1600, Until Discontinu ed, Routine melatonin Yes 3mg 3 mg, Univers (MELATIN) 10-26 Oral, QHS, ity of tablet 3 mg 02:00: First dose [place] 00 on [place] Medical 10/25/20 at Branch 2100, Until Discontinu ed, Routine magnesium 2020- No 2g 2 g, IV Univ ers sulfate in 10-26 Piggyback, it y of water 2 00:45: 00:42 ONCE, 1 [place] gram/50 mL 00 :00 dose, [place] Medi kofi (4 %) 10/25/20 at [place] infusion 2 1945, g Routine potassium 0 2020- No 10meq 10 mEq, IV Univers chloride in 10-26 Piggyback, i ty of water 10 00:00: 05:40 Q1H, 5 [place] mEq/100 mL 00 :00 doses, Medical RTU 10 mEq First dose Bra nch on [facility] 10/25/20 at 1900, Last dose on [place] 10/25/20 at 2300, 100 mL diazePAM No 10mg 10 mg, Univer s (VALIUM) 10-25 Intravenou ity of injection 22:45: 21:59 s, ONCE, 1 [place] 10 mg 00 :00 dose, [facility] Medical 10/25/20 at Branch 1745, TITA carvediloL Yes 12.5mg 12.5 mg, U nivers (COREG) 10-25 Oral, BID ity of tablet 12.5 22:00: MEALS, [place] mg 00 First dose Medical on [facility] Branch 10/25/20 at 1700, Until Discontinu ed, Routine LORazepam No 2mg 2 mg, Slow U nivers (ATIVAN) 10-25 IV Push, ity of injection 2 18:00: 17:21 ONCE, 1 [place] mg 00 :00 dose, [facility] Medical 10/25/20 at Branch 1300, Routine HYDROcodone Yes 1{tbl} 1 tablet, Univers -acetaminop 10-25 Oral, ity of hen (NORCO 16:49: Q6HPRN, [place] 5) 5-325 mg 43 Starting Medi kofi tablet 1 [facility] tablet 10/25/20 at 1149, Until Discontinu ed, Routine, Pain (scale 7-10) hydralAZINE Yes 10mg 10 mg, Univ ers (APRESOLINE 10-25 Slow IV ity o f ) injection 16:48: Push, [place] 10 mg 34 Q6HPRN, Medical Starting Branch [place] 10/25/20 at 1148, Until Discontinu ed, Routine, DBP=>100; SBP=>160, For SBP > 160
Ind ication: Hypertensi ve Emergency labetaloL Yes 20mg 20 mg, Univer s (NORMODYNE) 17 Slow IV ity o f injection 14:58: Push, [place] 20 mg 25 Q6HPRN, Medical Starting Branch [facility] 10/25/20 at 0958, Until Discontinu ed, TITA, For SBP > 170 or DBP > 105 diazePAM 0 2020- No 10mg 10 mg, Univer s (VALIUM) 10-25 Intravenou ity of injection 14:30: 13:45 s, ONCE, 1 [place] 10 mg 00 :00 dose, [facility] 10/25/20 at Branch 0930, STAT escitalopra Yes 10mg 10 mg, Univ ers m oxalate 10-25 Oral, ity of (LEXAPRO) 14:00: DAILY, [place] tablet 10 00 First dose Medi kofi mg on [facility] 10/25/20 at 0900, Until Discontinu ed, Routine pantoprazol Yes 40mg 40 mg, Univ ers e 10-25 Oral, ity of (PROTONIX) 14:00: DAILY, [place] EC tablet 00 First dose Medi kofi 40 mg on [facility] 10/25/20 at 0900, Until Discontinu ed, Routine acetaminoph Yes 650mg 650 mg, Un jaqueline en 10-25 Oral, ity of (TYLENOL) 13:42: Q6HPRN, [place] tablet 650 14 Starting Medic al mg [facility] 10/25/20 at 0842, Until Discontinu ed, Routine, Pain (scale 1-3), Temp > 38.5 C magnesium 2020- No 400mg 400 mg, Uni vers oxide 10-25 Oral, BID, ity of (MAG-OX 13:30: 12:59 8 doses, [place] 400) tablet 00 :00 First dose Me dical 400 mg on [facility] 10/25/20 at 0830, Last dose on 10/28/20 at 2000, Routine LORazepam 2020- No 1mg 1 mg, Slow U nivers (ATIVAN) 10-25 IV Push, ity of injection 1 05:30: 04:30 ONCE, 1 [place] mg 00 :00 dose, [facility] 10/25/20 at Branch 0030, Routine [...] Until Discontinu ed, Routine sulfur 2020- No [id number] 5mL 5 mL, Unive rs hexafluorid 10-24 Intravenou i ty of e microsphr 21:15: 21:15 s, ONCE, 1 [place] (LUMASON) 00 :00 dose, Thu Medic al injection 5 10/24/20 at Br anch mL 1615, Routine
faculty member approving Restricted medication : SONIA GOFF [...] :00 dose, Thu Medical 10/24/20 at Branch 1315, STAT diazePAM No 10mg 10 mg, Univer s (VALIUM) 10-24 Intravenou ity of injection 17:45: 17:10 s, ONCE, 1 [place] 10 mg 00 :00 dose, Thu Medical 10/24/20 at Branch 1245, TITA metoprolol 2020- No 50mg 50 mg, Univ ers tartrate 10-24 Oral, BID, ity of (LOPRESSOR) 17:15: 16:49 First dose [place] tablet 50 00 :21 on Thu Medical mg 10/24/20 at Branch 1215, Until Discontinu ed, Routine ondansetron Yes 4mg 4 mg, Unive rs (ZOFRAN-ODT 10-24 Oral, ity of ) 17:02: Q8HPRN, [place] disintegrat 20 Starting Medi kofi ing tablet [facility] Branch 4 mg 10/24/20 at 1202, Until Discontinu ed, Routine, Nausea and Vomiting (N/V) LORazepam No 2mg 2 mg, Slow U nivers (ATIVAN) 10-24 IV Push, ity of injection 2 17:00: 16:01 ONCE, 1 [place] mg 00 :00 dose, [facility] Medical 10/24/20 at Branch 1200, STAT labetaloL 2020- No 20mg 20 mg, Unive rs (NORMODYNE) 10-24 Slow IV ity of injection 17:00: 16:01 Push, [place] 20 mg 00 :00 ONCE, 1 Medical dose, [facility] Branch 10/24/20 at 1200, TITA lactated 2020- No 30mL/kg at 999 Uni vers ringers IV 10-24 mL/hr, ity of infusion 16:45: 18:17 2,925 mL [place] 2,925 mL 00 :00 (30 mL/kg Medica l ?97.5 kg), [place] IV Infusion, ONCE, 1 dose, [facility] 10/24/20 at 1145, STAT glucagon Yes 1mg [...] IV ity of (D50W) 16:43: Push, PRN, [place] injection 42 Starting Medica l 25 mL [facility] Branch 10/24/20 at 1143, Until Discontinu ed, TITA, Blood Glucose < or = 70 mg/dL and patient is unable to swallow or has mental status changes. LORazepam 2020- No 2mg 2 mg, Slow [...] Medical 10/24/20 at Branch 1100, Routine LORazepam 2020-0 2020- No 2mg 2 mg, Slow U nivers (ATIVAN) 10-24 IV Push, ity of injection 2 15:45: 14:34 ONCE, 1 [place] mg 00 :00 dose, Thu Medical 10/24/20 at Branch 1045, Routine LORazepam 2020-0 2020- No 1mg 1 mg, Slow U nivers (ATIVAN) 10-24 IV Push, ity of injection 1 15:15: 14:11 ONCE, 1 [place] mg 00 :00 dose, Thu10/24/20 at Branch 1015, STAT ondansetron 0 Yes 4mg 4 mg, Slow Univers (ZOFRAN -16 IV Push, ity of (PF)) 14:58: Q6HPRN, [place] injection 4 39 Starting Medi kofi mg Thu10/24/20 at 0958, Until Discontinu ed, Routine, Nausea and Vomiting (N/V) ondansetron 0 2020- No 4mg 4 mg, Slow Univers (ZOFRAN 10-24 IV Push, ity of (PF)) 14:15: 13:16 ONCE, 1 [place] injection 4 00 :00 dose, Thu Med ical mg 10/24/20 at Branch 0915, TITA foLIC acid 0 Yes 1mg 1 mg, Univer s (FOLATE) -16 Oral, ity of tablet 1 mg 14:00: DAILY, [place] 00 First dose Medical on Thu10/24/20 at 0900, Until Discontinu ed, Routine thiamine 0 Yes 100mg 100 mg, Unive rs (VITAMIN 6-16 Oral, ity of B1) tablet 14:00: DAILY, [place] 100 mg 00 First dose Medical on Thu10/24/20 at [...] 1 [place] mg 00 :00 dose, [facility] Medical 10/24/20 at Branch 0845, STAT ondansetron 2020- No 4mg 4 mg, Slow Univers (ZOFRAN 10-24 IV Push, ity of (PF)) 13:45: 12:42 ONCE, 1 [place] injection 4 00 :00 dose, Wed Med ical mg 10/24/20 at Branch 0845, TITA labetaloL 2020- No 10mg 10 mg, Unive rs (NORMODYNE) 10-24 Slow IV ity of injection 13:45: 12:37 Push, [place] 10 mg 00 :00 ONCE, 1 Medical dose, [facility] Branch 10/24/20 at 0845, TITA oxazepam 2020- No 15mg 15 mg, Univer s (SERAX) 10-24 Oral, ity of capsule 15 13:40: 20:57 Q4HPRN, [place] as mg 38 :53 Starting Medical [facility] Branch 10/24/20 at 0840, Until Thu10/26/20 at 1557, Routine, Only while awake for DBP equal to or greater than 100, HR equal to or greater than 100. iopamidol 2020- No [id number] 100mL 100 mL, Univers (ISOVUE 10-24 Intravenou ity o f 370-500 mL) 13:00: 11:40 s, ONCE, 1 [place] injection 00 :00 dose, Wed Medic al 100 mL 10/24/20 at Branch 0800, Routine LORazepam 2020- No 1mg 1 mg, Slow U nivers (ATIVAN) 10-24 06-16 IV Push, ity of injection 1 13:00: 11:54 ONCE, 1 [place] mg 00 :00 dose, Wed Medical 10/24/20 at Branch 0800, STAT NaCl 0.9% 2020-2020- No 1000mL at 999 Uni vers (NS) bolus 10-24-16 mL/hr, ity of infusion 11:30: 11:27 1,000 mL, [place] as 1,000 mL 00 :00 IV Medical Infusion, Branch ONCE, 1 dose, 10/24/20 at 0630, STAT metoprolol 2020-2020- No 5mg 5 mg, Slow Univers (LOPRESSOR) 07-29 IV Push, ity of injection 5 00:30: 23:26 ONCE, 1 [place] mg 00 :00 dose, Sat Medical 07/28/20 at Branch 1930, TITA NaCl 0.9% 2020- No 1000mL at 999 Uni vers (NS) bolus 07-28- mL/hr, ity of infusion 22:15: 00:55 1,000 mL, [place] as 1,000 mL 00 :00 IV Medical Infusion, Branch ONCE, 1 dose, 07/28/20 at 1715, STAT LORazepam 2020-2020- No 1mg 1 mg, Slow U nivers (ATIVAN) 07-28-20 IV Push, ity of injection 1 22:15: 21:18 ONCE, 1 [place] mg 00 :00 dose, Sat Medical 07/28/20 at Branch 1715, STAT LORazepam 2020-0 2020- No 1mg 1 mg, Slow U nivers (ATIVAN) 07-28-20 IV Push, ity of injection 1 19:31: 19:31 ONCE, 1 [place] mg 00 :00 dose, Sat Medical 07/28/20 at Branch 1445, STAT LORazepam [...] dose, 06/30/20 at 0600, TITA metoprolol Yes [id number] 50mg Take 2 U nivers tartrate 25 2-20 tablets by it y of mg tablet 00:00: mouth [place] ([facility]) Medical times [place] daily. metoprolol Yes [id number] 50mg Take 2 U nivers tartrate 25 2-20 tablets by it y of mg tablet 00:00: mouth [place] (two) Medical times Branch daily. metoprolol Yes [id number] 50mg Take 2 U nivers tartrate 25 2-20 tablets by it y of mg tablet 00:00: mouth [place] ([facility]) Medical times [place] daily. metoprolol 2020-0 Yes [id number] 50mg Take 2 U nivers tartrate 25 2-20 tablets by it y of mg tablet 00:00: mouth [place] ([facility]) Medical times [place] daily. metoprolol 2020-0 Yes [id number] 50mg Take 2 U nivers tartrate 25 2-20 tablets by it y of mg tablet 00:00: mouth [place] (two) Medical times [place] daily. metoprolol 2020-0 Yes [id number] 50mg Take 2 U nivers tartrate 25 2-20 tablets by it y of mg tablet 00:00: mouth [place] ([facility]) Medical times [place] daily. metoprolol 2020-0 Yes [id number] 50mg Take 2 U nivers tartrate 25 2-20 tablets by it y of mg tablet 00:00: mouth [place] (two) Medical times [place] daily. metoprolol 2020-0 Yes [id number] 50mg Take 2 U nivers tartrate 25 2-20 tablets by it y of mg tablet 00:00: mouth (two) Medical times Branch daily. metoprolol Yes [id number] 50mg Take 2 U nivers tartrate 25 2-20 tablets by it y of mg tablet 00:00: mouth (two) Medical times Branch daily. metoprolol Yes [id number] 50mg Take 2 U nivers tartrate 25 2-20 tablets by it y of mg tablet 00:00: mouth (two) Medical times Branch daily. ibuprofen 2020- No 600mg 600 mg, Uni vers (IBU) 06-23- Oral, ity of tablet 600 21:15: 20:35 ONCE, 1 [place] mg 00 :00 dose, Sat Medical 06/23/20 at Branch 1515, TITA ibuprofen Yes [id number] 600mg Take 1 [facility] 600 mg 2-13 [id number] tablet by ity of tablet 00:00: mouth [place] 00 every 6 Medical (six) Branch hours as needed for Pain (scale 4-6). ibuprofen Yes [id number] 600mg Take 1 Univers 600 mg 2-13 [id number] tablet by ity of tablet 00:00: mouth 00 every 6 Medical (six) Branch hours as needed for Pain (scale 4-6). ibuprofen Yes [id number] 600mg Take 1 [facility] 600 mg 2-13 [id number] tablet by ity of tablet 00:00: mouth [place] 00 every 6 Medical (six) Branch hours as needed for Pain (scale 4-6). ibuprofen 2020- No [id number] 600mg Take 1 Univers 600 mg 2-13 - [id number] tablet by ity o f tablet 00:00: 00:00 mouth [place] 00 :00 every 6 Medical (six) Branch hours as needed for Pain (scale 4-6). venlafaxine 2020- No [id number] 225mg QD Take 3 M ethodi XR 02-01 10-[address] (EFFEXOR-XR 00:00: 04:59 (225 mg [facility] ) 75 MG 24 00 :00 total) by l hr capsule mouth every morning for 7 days .major depressive disorder. nicotine 2020-0 2020- No [id number] 2mg Q2H Chew 1 Metho di polacrilex 01-31 each ([address] (NICORETTE) 00:00: 04:59 total) Hos sugey 2 mg gum 00 :00 every 2 l (two) hours as needed for smoking cessation for up to 30 days .stop smoking. metoprolol 2019- No [id number] 50mg Q.5D Take 1 Met hodi tartrate 01-31 tablet (50 st (LOPRESSOR) 00:00: 04:59 mg total) Hospita 50 mg 00 :00 by mouth l tablet BID at 0700, 1900 for 30 days .high blood pressure. busPIRone 2019- No [id number] 7.5mg Q.5D Take 1 Met hodi (BUSPAR) 01-[address] 7.5 MG 00:00: 04:59 (7.5 mg Hospita tablet 00 :00 total) by l mouth 2 (two) times a day for 7 days .repeated episodes of anxiety. sodium 2019-0 Yes 5mL 5 mL, Univers chloride 7 Intravenou ity o f (NS) 04:17: s, PRN, [place] injection 5 55 Starting Medi kofi mL 11/09/19 Branch at 2317, Until Discontinu ed, Routine, IV line fl[place] dicyclomine 2019- No 20mg 20 mg, Uni vers (BENTYL) 09-2821 Oral, ity of capsule 20 16:00: 15:16 ONCE, 1 [place] mg 00 :00 dose, [facility] 09/29/19 at Branch 1100, Routine ondansetron 2019- No 4mg 4 mg, Slow Univers (ZOFRAN 09-28 IV Push, ity of (PF)) 16:00: 15:23 [...] Discontinu ed, Routine, Diarrhea ondansetron 2020-0 Yes [id number] 4mg Take 1 U nivers 4 mg 5-21 tablet by ity of disintegrat 00:00: mouth [place] ing tablet 00 every 8 Medica l (eight) Branch hours as needed for Nausea and Vomiting (N/V). loperamide 2020-0 Yes [id number] 2mg Take 1 Un jaqueline 2 mg 5-21 capsule by ity of capsule 00:00: mouth [place] 00 every 4 Medical (four) Branch hours as needed for Diarrhea. Not to exceed 16mg daily. ondansetron 2020-0 Yes [id number] 4mg Take 1 U nivers 4 mg 5-21 tablet by ity of disintegrat 00:00: mouth [place] ing tablet 00 every 8 Medica l (eight) Branch hours as needed for Nausea and Vomiting (N/V). loperamide 2020-0 Yes [id number] 2mg Take 1 Un jaqueline 2 mg 5-21 capsule by ity of capsule 00:00: mouth [place] 00 every 4 Medical (four) Branch hours as needed for Diarrhea. Not to exceed 16mg daily. ondansetron 2020-0 Yes [id number] 4mg Take 1 U nivers 4 mg 5-21 tablet by ity of disintegrat 00:00: mouth [place] ing tablet 00 every 8 Medica l (eight) Branch hours as needed for Nausea and Vomiting (N/V). loperamide 2020-0 Yes [id number] 2mg Take 1 Un jaqueline 2 mg 5-21 capsule by ity of capsule 00:00: mouth [place] 00 every 4 Medical (four) Branch hours as needed for Diarrhea. Not to exceed 16mg daily. ondansetron 2020-0 Yes [id number] 4mg Take 1 U nivers 4 mg 5-21 tablet by ity of disintegrat 00:00: mouth [place] ing tablet 00 every 8 Medica l (eight) Branch hours as needed for Nausea and Vomiting (N/V). loperamide 2020-0 Yes [id number] 2mg Take 1 Un jaqueline 2 mg 5-21 capsule by ity of capsule 00:00: mouth [place] 00 every 4 Medical (four) Branch hours as needed for Diarrhea. Not to exceed 16mg daily. ondansetron 2020-0 Yes [id number] 4mg Take 1 U nivers 4 mg 5-21 tablet by ity of disintegrat 00:00: mouth [place] ing tablet 00 every 8 Medica l (eight) Branch hours as needed for Nausea and Vomiting (N/V). loperamide 2020-0 Yes [id number] 2mg Take 1 Un jaqueline 2 mg 5-21 capsule by ity of capsule 00:00: mouth [place] 00 every 4 Medical (four) Branch hours as needed for Diarrhea. Not to exceed 16mg daily. ondansetron 2020-0 Yes [id number] 4mg Take 1 U nivers 4 mg 5-21 tablet by ity of disintegrat 00:00: mouth [place] ing tablet 00 every 8 Medica l (eight) Branch hours as needed for Nausea and Vomiting (N/V). ondansetron 2020-0 Yes [id number] 4mg Take 1 U nivers 4 mg 5-21 tablet by ity of disintegrat 00:00: mouth [place] ing tablet 00 every 8 Medica l (eight) Branch hours as needed for Nausea and Vomiting (N/V). ondansetron 2020-0 Yes [id number] 4mg Take 1 U nivers 4 mg 5-21 tablet by ity of disintegrat 00:00: mouth [place] ing tablet 00 every 8 Medica l (eight) Branch hours as needed for Nausea and Vomiting (N/V). ondansetron 2019-0 2020- No [id number] 4mg Take 1 Univers 4 mg 5-21 09-16 tablet by ity of disintegrat 00:00: 00:00 [place] tablet 00 :00 every 8 Medica l (eight) Branch hours as needed for Nausea and Vomiting (N/V). ondansetron 2020-0 2020- No [id number] 4mg Take 1 Univers 4 mg 5-21 09-16 tablet by ity of disintegrat 00:00: 00:00 [place] tablet 00 :00 every 8 Medica l (eight) Branch hours as needed for Nausea and Vomiting (N/V). loperamide 2019-0 2020- No [id number] 2mg Take 1 U nivers 2 mg 5-21 06-20 capsule by ity of capsule 00:00: 00:00 mouth [place] 00 :00 every 4 Medical (four) Branch hours as needed for Diarrhea. Not to exceed 16mg daily. dicyclomine 2020-0 2020- No [id number] 10mg Take 1 Univers (BENTYL) 10 5- 05-27 capsule by i ty of mg capsule 00:00: 04:59 mouth [place] 00 :00 every 8 Medical (eight) Branch hours as needed for Abdominal pain for up to 5 days. diazePAM 2020-0 2020- No 5mg 5 mg, Slow Un jaqueline (VALIUM) 06-16- IV Push, ity of injection 5 15:45: 14:45 ONCE, 1 [place] mg 00 :00 dose, [facility] Medical 06/16/19 at [place] 0945, STAT diazePAM 2020-0 2020- No 2.5mg 2.5 mg, Univ ers (VALIUM) 06-16 Oral, ity of tablet 2.5 14:15: 14:08 ONCE, 1 [place] mg 00 :00 dose, [facility] 06/16/19 at [place] 0815, TITA LORazepam 2019-0 2020- No 1mg 1 mg, Slow U nivers (ATIVAN) 06-1505 IV Push, ity of injection 1 20:00: 18:59 ONCE, 1 [place] mg 00 :00 dose, [facility] Medical 06/15/19 at [place] 1400, STAT metoprolol 2020-0 Yes 50mg Take 50 mg U nivers succinate -19 by mouth 2 ity of XL (TOPROL 16:21: ([facility]) [place] XL) 25 mg 12 times Medical 24 hr daily. Branch tablet diazePAM 2020-0 Yes 10mg Take 10 mg Uni vers (VALIUM) 10 -19 by mouth 2 it y of mg tablet 16:21: ([facility]) [place] 12 times Medical daily. Branch metoprolol 2020-0 Yes 50mg Take 50 mg U nivers succinate 1-19 by mouth 2 ity of XL (TOPROL 16:21: (two) [place] XL) 25 mg 12 times Medical 24 hr daily. Branch tablet diazePAM 2020-0 Yes 10mg Take 10 mg Uni vers (VALIUM) 10 1-19 by mouth 2 it y of mg tablet 16:21: ([facility]) [place] 12 times Medical daily. Branch metoprolol 2020-0 [...] it y of mg tablet 16:21: ([facility]) [place] 12 times Medical daily. Branch metoprolol 2020-0 Yes 50mg Take 50 mg U nivers succinate 1-19 by mouth 2 ity of XL (TOPROL 16:21: (two) [place] XL) 25 mg 12 times Medical 24 hr daily. Branch tablet diazePAM 2020-0 Yes 10mg Take 10 mg Uni vers (VALIUM) 10 1-19 by mouth 2 it y of mg tablet 16:21: ([facility]) [place] 12 times Medical daily. Branch metoprolol 2020-0 Yes 50mg Take 50 mg U nivers succinate 1-19 by mouth 2 ity of XL (TOPROL 16:21: (two) [place] XL) 25 mg 12 times Medical 24 hr daily. Branch tablet diazePAM 2020-0 Yes 10mg Take 10 mg Uni vers (VALIUM) 10 1-19 by mouth 2 it y of mg tablet 16:21: ([facility]) [place] 12 times Medical daily. Branch metoprolol [...] it y of mg tablet 16:21: (two) [place] 12 times Medical daily. Branch metoprolol 2019-0 Yes 50mg Take 50 mg U nivers succinate 1-19 by mouth 2 ity of XL (TOPROL 16:21: (two) [place] XL) 25 mg 12 times Medical 24 hr daily. Branch tablet diazePAM 2019-0 Yes 10mg Take 10 mg Uni vers (VALIUM) 10 1-19 by mouth 2 it y of mg tablet 16:21: ([facility]) [place] 12 times Medical daily. Branch amoxicillin 2020-0 2020- No [id number] 500mg Take 1 Univers 500 mg 05-29-30 capsule by ity of capsule 00:00: 05:59 mouth 2 [place] 00 :00 (two) Medical times [place] daily for 10 days. amoxicillin 2020-0 2020- No [id number] 500mg Take 1 Univers 500 mg 05-29-30 capsule by ity of capsule 00:00: 05:59 mouth 2 [place] 00 :00 (two) Medical times [place] daily for 10 days. metoprolol 2018-05 Yes 50mg Take 50 mg U nivers succinate 0-12 by mouth 2 ity of XL (TOPROL 08:43: (two) [place] XL) 25 mg 57 times Medical 24 hr daily. Branch tablet diazePAM 2018-05 Yes 10mg Take 10 mg Uni vers (VALIUM) 10 0-12 by mouth 2 it y of mg tablet 08:43: (two) [place] 57 times Medical daily. Branch pantoprazol 2018-05 Yes [id number] 40mg Take 1 Univers e 0-12 tablet by ity of (PROTONIX) 00:00: mouth [place] 40 mg EC 00 daily. Medical tablet Branch pantoprazol 2018-05 Yes [id number] 40mg Take 1 Univers e 0-12 tablet by ity of (PROTONIX) 00:00: mouth [place] 40 mg EC 00 daily. Medical tablet Branch pantoprazol 2018-05 Yes [id number] 40mg Take 1 Univers e 0-12 tablet by ity of (PROTONIX) 00:00: mouth [place] 40 mg EC 00 daily. Medical tablet Branch pantoprazol 2018-05 Yes [id number] 40mg Take 1 Univers e 0-12 tablet by ity of (PROTONIX) 00:00: mouth [place] 40 mg EC 00 daily. Medical tablet Branch pantoprazol 2018-05 Yes [id number] 40mg Take 1 Univers e 0-12 tablet by ity of (PROTONIX) 00:00: mouth [place] 40 mg EC 00 daily. Medical tablet Branch pantoprazol 2018-05 Yes [id number] 40mg Take 1 Univers e 0-12 tablet by ity of (PROTONIX) 00:00: mouth [place] 40 mg EC 00 daily. Medical tablet Branch pantoprazol 2018-05 Yes [id number] 40mg Take 1 Univers e 0-12 tablet by ity of (PROTONIX) 00:00: mouth [place] 40 mg EC 00 daily. Medical tablet Branch pantoprazol 2018-05 Yes [id number] 40mg Take 1 Univers e 0-12 tablet by ity of (PROTONIX) 00:00: mouth [place] 40 mg EC 00 daily. Medical tablet Branch pantoprazol 2018-05 Yes [id number] 40mg Take 1 Univers e 0-12 tablet by ity of (PROTONIX) 00:00: mouth [place] 40 mg EC 00 daily. Medical tablet Branch pantoprazol 2018-05 Yes [id number] 40mg Take 1 Univers e 0-12 tablet by ity of (PROTONIX) 00:00: mouth [place] 40 mg EC 00 daily. Medical tablet Branch pantoprazol 2018-05 Yes [id number] 40mg Take 1 Univers e 0-12 tablet by ity of (PROTONIX) 00:00: mouth [place] 40 mg EC 00 daily. Medical tablet Branch pantoprazol 2018-05 Yes [id number] 40mg Take 1 Univers e 0-12 tablet by ity of (PROTONIX) 00:00: mouth [place] 40 mg EC 00 daily. Medical tablet Branch pantoprazol 2018-05 Yes [id number] 40mg Take 1 Univers e 0-12 tablet by ity of (PROTONIX) 00:00: mouth [place] 40 mg EC 00 daily. Medical tablet Branch pantoprazol 2018-05 Yes [id number] 40mg Take 1 Univers e 0-12 tablet by ity of (PROTONIX) 00:00: mouth [place] 40 mg EC 00 daily. Medical tablet Branch pantoprazol 2018-05 Yes [id number] 40mg Take 1 Univers e 0-12 tablet by ity of (PROTONIX) 00:00: mouth [place] 40 mg EC 00 daily. Medical tablet Branch pantoprazol 2018-05 Yes [id number] 40mg Take 1 Univers e 0-12 tablet by ity of (PROTONIX) 00:00: mouth [place] 40 mg EC 00 daily. Medical tablet Branch pantoprazol 2018-05 Yes [id number] 40mg Take 1 Univers e 0-12 tablet by ity of (PROTONIX) 00:00: mouth [place] 40 mg EC 00 daily. Medical tablet Branch pantoprazol 2018-05 Yes [id number] 40mg Take 1 Univers e 0-12 tablet by ity of (PROTONIX) 00:00: mouth [place] 40 mg EC 00 daily. Medical tablet Branch pantoprazol 2018-05 Yes [id number] 40mg Take 1 Univers e 0-12 tablet by ity of (PROTONIX) 00:00: mouth [place] 40 mg EC 00 daily. Medical tablet Branch ketorolac 2019- No 15mg 15 mg, Unive rs (TORADOL) 01-25 Slow IV ity of injection 01:00: 23:57 Push, [place] 15 mg 00 :00 ONCE, 1 Medical dose, [facility] 01/24/19 at 2000, Routine
faculty member approving Restricted medication : JERRY MARTIN NaCl 0.9% 2019- No 1000mL at 999 Uni vers (NS) bolus 01-24 mL/hr, ity of infusion 21:15: 23:58 1,000 mL, [place] 1,000 mL 00 :00 IV Medical Infusion, Branch ONCE, 1 dose, [facility] 01/24/19 at 1615, TITA methocarbam Yes [id number] 500mg Take 1 Univers ol 500 mg 9-16 tablet by ity o f tablet 00:00: mouth 4 [place] 00 (four) Medical times Branch daily. methocarbam Yes [id number] 500mg Take 1 Univers ol 500 mg 9-16 tablet by ity o f tablet 00:00: mouth (four) Medical times Branch daily. methocarbam 2019-0 Yes [id number] 500mg Take 1 Univers ol 500 mg 9-16 tablet by ity o f tablet 00:00: mouth (four) Medical times Branch daily. methocarbam 2018-0 Yes [id number] 500mg Take 1 Univers ol 500 mg 9-16 tablet by ity o f tablet 00:00: mouth (four) Medical times Branch daily. methocarbam 2018-0 Yes [id number] 500mg Take 1 Univers ol 500 mg 9-16 tablet by ity o f tablet 00:00: mouth (four) Medical times Branch daily. methocarbam 2018-0 Yes [id number] 500mg Take 1 Univers ol 500 mg 9-16 tablet by ity o f tablet 00:00: mouth ([facility]) Medical times Branch daily. methocarbam 2018-0 Yes [id number] 500mg Take 1 Univers ol 500 mg 9-16 tablet by ity o f tablet 00:00: mouth ([facility]) Medical times Branch daily. methocarbam 0 Yes [id number] 500mg Take 1 Univers ol 500 mg 9-16 tablet by ity o f tablet 00:00: mouth ([facility]) Medical times Branch daily. methocarbam 2018-0 Yes [id number] 500mg Take 1 Univers ol 500 mg 9-16 tablet by ity o f tablet 00:00: mouth ([facility]) Medical times Branch daily. methocarbam 2018-0 Yes [id number] 500mg Take 1 Univers ol 500 mg 9-16 tablet by ity o f tablet 00:00: mouth ([facility]) Medical times Branch daily. methocarbam 0 Yes [id number] 500mg Take 1 Univers ol 500 mg 9-16 tablet by ity o f tablet 00:00: mouth (four) Medical times Branch daily. methocarbam 2019-0 Yes [id number] 500mg Take 1 Univers ol 500 mg 9-16 tablet by ity o f tablet 00:00: mouth (four) Medical times Branch daily. methocarbam 2018-0 2021- No [id number] 500mg Take 1 Univers ol 500 mg 9-16 06-20 tablet by ity of tablet 00:00: 00:00 mouth 4 [place] 00 :00 (four) Medical times Branch daily. ketorolac 2019- No 30mg 30 mg, Unive rs (TORADOL) 12-21 Slow IV ity of injection 23:45: 23:22 Push, [place] 30 mg 00 :00 ONCE, 1 Medical dose, [facility] 12/21/18 at 1845, TITA
[facility] approving Restricted medication : DEMOND PERSON dicyclomine 2019- No 20mg 20 mg, Uni vers (BENTYL) 12-21 Oral, ONCE ity of capsule 20 23:45: 23:22 NOW, 1 [place] mg 00 :00 dose, [facility] 12/21/18 at Branch 1845, Routine ondansetron 2019- No 4mg 4 mg, Slow Univers (ZOFRAN 12-21 IV Push, ity of (PF)) 22:30: 22:25 ONCE, 1 [place] injection 4 00 :00 dose, [facility] Med ical mg 12/21/18 at Branch 1730, TITA NaCl 0.9% 2019- No 1000mL at 999 Uni vers (NS) bolus 12-21 mL/hr, ity of infusion 22:30: 23:34 1,000 mL, [place] 1,000 mL 00 :00 IV Medical Infusion, Branch ONCE, 1 dose, [facility] 12/21/18 at 1730, STAT ondansetron 2018- Yes [id number] 4mg Take 1 Univers (ZOFRAN 8-13 tablet by ity of ODT) 4 mg 00:00: mouth [place] disintegrat 00 every 8 Medic al ing tablet (eight) Branch hours as needed for Nausea and Vomiting (N/V). dicyclomine 2019- Yes [id number] 20mg Take 1 Univers (BENTYL) 20 8-13 tablet by ity of mg tablet 00:00: mouth 3 [place] 00 (three) Medical times Branch daily as needed for Abdominal pain. ondansetron 2019-0 Yes [id number] 4mg Take 1 Univers (ZOFRAN 8-13 tablet by ity of ODT) 4 mg 00:00: mouth [place] disintegrat 00 every 8 Medic al ing tablet (eight) Branch hours as needed for Nausea and Vomiting (N/V). dicyclomine 2019-0 Yes [id number] 20mg Take 1 Univers (BENTYL) 20 8-13 tablet by ity of mg tablet 00:00: mouth 3 [place] 00 (three) Medical times Branch daily as needed for Abdominal pain. ondansetron 2019-0 Yes [id number] 4mg Take 1 Univers (ZOFRAN 8-13 tablet by ity of ODT) 4 mg 00:00: mouth [place] disintegrat 00 every 8 Medic al ing tablet (eight) Branch hours as needed for Nausea and Vomiting (N/V). dicyclomine 2019-0 Yes [id number] 20mg Take 1 Univers (BENTYL) 20 8-13 tablet by ity of mg tablet 00:00: mouth 3 [place] 00 (three) Medical times Branch daily as needed for Abdominal pain. ondansetron 2019-0 Yes [id number] 4mg Take 1 Univers (ZOFRAN 8-13 tablet by ity of ODT) 4 mg 00:00: mouth [place] disintegrat 00 every 8 Medic al ing tablet (eight) Branch hours as needed for Nausea and Vomiting (N/V). dicyclomine 2019-0 Yes [id number] 20mg Take 1 Univers (BENTYL) 20 8-13 tablet by ity of mg tablet 00:00: mouth 3 [place] 00 (three) Medical times Branch daily as needed for Abdominal pain. ondansetron 2019-0 Yes [id number] 4mg Take 1 Univers (ZOFRAN 8-13 tablet by ity of ODT) 4 mg 00:00: mouth [place] disintegrat 00 every 8 Medic al ing tablet (eight) Branch hours as needed for Nausea and Vomiting (N/V). dicyclomine 2019-0 Yes [id number] 20mg Take 1 Univers (BENTYL) 20 8-13 tablet by ity of mg tablet 00:00: mouth 3 [place] 00 (three) Medical times Branch daily as needed for Abdominal pain. ondansetron 2019-0 Yes [id number] 4mg Take 1 Univers (ZOFRAN 8-13 tablet by ity of ODT) 4 mg 00:00: mouth [place] disintegrat 00 every 8 Medic al ing tablet (eight) Branch hours as needed for Nausea and Vomiting (N/V). dicyclomine 2019-0 Yes [id number] 20mg Take 1 Univers (BENTYL) 20 8-13 tablet by ity of mg tablet 00:00: mouth 3 [place] 00 (three) Medical times Branch daily as needed for Abdominal pain. ondansetron 2019-0 Yes [id number] 4mg Take 1 Univers (ZOFRAN 8-13 tablet by ity of ODT) 4 mg 00:00: mouth [place] disintegrat 00 every 8 Medic al ing tablet (eight) Branch hours as needed for Nausea and Vomiting (N/V). dicyclomine 2019- Yes [id number] 20mg Take 1 Univers (BENTYL) 20 8-13 tablet by ity of mg tablet 00:00: mouth 3 [place] 00 (three) Medical times Branch daily as needed for Abdominal pain. ondansetron 2019-0 Yes [id number] 4mg Take 1 Univers (ZOFRAN 8-13 tablet by ity of ODT) 4 mg 00:00: mouth [place] disintegrat 00 every 8 Medic al ing tablet (eight) Branch hours as needed for Nausea and Vomiting (N/V). dicyclomine 2018- Yes [id number] 20mg Take 1 Univers (BENTYL) 20 8-13 tablet by ity of mg tablet 00:00: mouth 3 [place] 00 (three) Medical times Branch daily as needed for Abdominal pain. ondansetron 2019-0 Yes [id number] 4mg Take 1 Univers (ZOFRAN 8-13 tablet by ity of ODT) 4 mg 00:00: mouth [place] disintegrat 00 every 8 Medic al ing tablet (eight) Branch hours as needed for Nausea and Vomiting (N/V). dicyclomine 2019-0 Yes [id number] 20mg Take 1 Univers (BENTYL) 20 8-13 tablet by ity of mg tablet 00:00: mouth 3 [place] 00 (three) Medical times Branch daily as needed for Abdominal pain. ondansetron 2018-0 2020- No [id number] 4mg Take 1 Univers (ZOFRAN 8-13 05-21 tablet by ity of ODT) 4 mg 00:00: 00:00 mouth [place] disintegrat 00 :00 every 8 Medic al ing tablet (eight) Branch hours as needed for Nausea and Vomiting (N/V). dicyclomine 2019-0 2020- No [id number] 20mg Take 1 Univers (BENTYL) 20 8-13 [...] Take 10 mg Uni vers (VALIUM) 10 7-02 by mouth 2 it y of mg tablet 22:02: (two) [place] 32 times Medical daily. Branch metoprolol 0 Yes 50mg Take 50 mg U nivers succinate 7-02 by mouth 2 ity of XL (TOPROL 22:02: (two) [place] XL) 25 mg 32 times Medical 24 hr daily. Branch tablet diazePAM Yes 10mg Take 10 mg Uni vers (VALIUM) 10 7-02 by mouth 2 it y of mg tablet 22:02: (two) [place] 32 times Medical daily. Branch metoprolol Yes 50mg Take 50 mg U nivers succinate 02 by mouth 2 ity of XL (TOPROL 22:02: (two) [place] XL) 25 mg 32 times Medical 24 hr daily. Branch tablet diazePAM Yes 10mg Take 10 mg Uni vers (VALIUM) 10 7-02 by mouth 2 it y of mg tablet 22:02: (two) [place] 32 times Medical daily. Branch metoprolol Yes 50mg Take 50 mg U nivers succinate 02 by mouth 2 ity of XL (TOPROL 22:02: (two) [place] XL) 25 mg 32 times Medical 24 hr daily. Branch tablet diazePAM Yes 10mg Take 10 mg Uni vers (VALIUM) 10 7-02 by mouth 2 it y of mg [...] it y of mg tablet 00:00: (two) [place] 00 times Medical daily. Branch busPIRone 2014-05- No 10mg Take 1 Tab U nivers (BUSPAR) 10 2-14 06-20 by mouth 2 i ty of mg tablet 00:00: 00:00 (two) [place] 00 :00 times Medical daily. Branch clonazePAM [...] Status Commen ts Source Name Name MORALES JORDAN 2020-01-[address] 00:00:00 Hospital Vital Signs Vital Name Observation Time Observation Value Comments Source Respiratory rate 2021-05-05 13:33:00 18 /min [facility] saturation in 2021-05-05 13:33:00 97 /min [facility] Arterial blood by [facility] Pulse oximetry Branch Systolic blood 2021-05-05 12:44:00 155 mm[Hg] Univer sity of [facility] [place] Diastolic blood 2021-05-05 12:44:00 75 mm[Hg] Unive rsity of [facility] [place] Heart rate 2021-05-05 12:44:00 59 /min Universi ty of [facility] [place] [facility] Body temperature 2021-05-05 12:44:00 36.5 [place] [facility] [place] [facility] Body height 2021-05-05 06:46:00 172.7 cm Universi ty of [facility] [place] [facility] Body weight 2021-05-05 06:46:00 102.967 kg Universi ty of [facility] [place] [facility] BMI 2021-05-05 06:46:00 34.52 kg/m2 Universi ty of [facility] [place] [facility] Systolic blood 2021-03-31 14:51:24 151 mm[Hg] Univer sity of [facility] [place] Diastolic blood 2021-03-31 14:51:24 98 mm[Hg] [facility] rs[facility] of [facility] [place] Heart rate 2021-03-31 14:51:24 92 /min [facility] Body temperature 2021-03-31 14:51:24 36.67 Siobhan [facility] ersity of [facility] Respiratory rate 2021-03-31 14:51:24 18 /min [facility] ersity of [facility] Body height 2021-03-31 14:35:00 170.2 cm [facility] Body weight 2021-03-31 14:35:00 99.791 kg [facility] BMI 2021-03-31 14:35:00 34.46 kg/m2 [facility] Oxygen saturation in 2021-03-31 14:35:00 99 /min [facility] of Arterial blood by [facility] kofi Pulse oximetry Branch Systolic blood 2021-02-18 16:00:00 110 mm[Hg] Univer sity of [facility] Diastolic blood 2021-02-18 16:00:00 77 mm[Hg] [facility]ive rsity of [facility] Heart rate 2021-02-18 16:00:00 61 /min [facility] Respiratory rate 2021-02-18 16:00:00 15 /min Univ [facility] Oxygen saturation in 2021-02-18 16:00:00 98 /min [facility] Arterial blood by [facility] Pulse oxim[facility] Branch Body temperature 2021-02-18 13:14:00 36.33 Siobhan [facility] Body weight 2021-02-18 13:14:00 99.791 [...] 2021-01-24 13:26:00 37.39 Siobhan [facility] Respiratory rate 2021-01-24 13:26:00 20 /min [facility] Body weight 2021-01-24 13:26:00 99.791 kg [facility] BMI 2021-01-24 13:26:00 34.45 kg/m2 [facility] Oxygen saturation in 2021-01-24 13:26:00 95 /min [facility] Arter[facility] blood by [facility] Pulse oxim[facility] Branch Systolic blood 2020-12-07 15:00:00 121 mm[Hg] [facility]ity [facility] Diastolic blood 2020-12-07 15:00:00 86 mm[Hg] [facility] Heart rate 2020-12-07 15:00:00 79 /min [facility] Body temperature 2020-12-07 15:00:00 36.22 Siobhan [facility] Respiratory rate 2020-12-07 15:00:00 17 /min [facility] Oxygen saturation in 2020-12-07 15:00:00 94 /min [facility] Arterial blood by [employer] Pulse oxim[facility] Branch Body weight 2020-12-07 13:31:00 94.348 kg [facility] BMI 2020-12-07 13:31:00 32.57 kg/m2 [facility] Systolic blood 2020-10-28 12:21:00 150 mm[Hg] Univer [facility]ity of [facility] Diastolic blood 2020-10-28 12:21:00 78 mm[Hg] [facility]ity of [facility] Heart rate 2020-10-28 12:21:00 73 /min [facility] Body temperature 2020-10-28 12:21:00 36.56 Siobhan [facility] Respiratory rate 2020-10-28 12:21:00 11 /min [facility] Oxygen saturation in 2020-10-28 12:21:00 98 /min [facility] Arterial blood by [employer] Pulse oxim[facility] Branch Body weight 2020-10-28 09:00:00 94.666 kg [facility] BMI 2020-10-28 09:00:00 32.68 kg/m2 [facility] Body height 2020-10-25 13:00:00 170.2 cm [facility] Systolic blood 2020-07-29 00:50:00 165 mm[Hg] Univer [facility]ity of [facility] Diastolic blood 2020-07-29 00:50:00 103 mm[Hg] [facility] Heart rate 2020-07-29 00:50:00 100 /min [facility] Respiratory rate 2020-07-29 00:50:00 20 /min Univ [facility] Oxygen saturation in 2020-07-29 00:50:00 99 /min [facility] Arterial blood by [facility] kofi Pulse oxim[facility] Branch Body temperature 2020-07-28 18:16:26 36.5 Siobhan [facility] Body height 2020-07-28 18:14:00 170.2 cm [facility] Body weight 2020-07-28 18:14:00 83.915 kg [facility] BMI 2020-07-28 18:14:00 28.98 kg/m2 [facility] Systolic blood 2020-07-29 00:50:00 165 mm[Hg] Univer [facility]ity of [facility] Diastolic blood 2020-07-29 00:50:00 103 mm[Hg] [facility]ity of pressure [facility] Heart rate 2020-07-29 00:50:00 100 /min [facility] Respiratory rate 2020-07-29 00:50:00 20 /min Univ [facility] Oxygen saturation in 2020-07-29 00:50:00 99 /min [facility] blood by [place] [employer] [facility]of[facility] Pulse oxim[facility] Body temperature 2020-07-28 18:16:26 36.5 Siobhan [facility] Body height 2020-07-28 18:14:00 170.2 cm [facility] Body weight 2020-07-28 18:14:00 83.915 kg [facility] BMI 2020-07-28 18:14:00 28.98 kg/m2 [facility] Systolic blood 2020-06-30 15:00:00 145 mm[Hg] [facility]ity of [facility] Diastolic blood 2020-06-30 15:00:00 82 mm[Hg] [facility]ity of pressure [facility] Heart rate 2020-06-30 15:00:00 88 /min [facility] Respiratory rate 2020-06-30 15:00:00 15 /min Univ [facility] Oxygen saturation in 2020-06-30 15:00:00 97 /min [facility] blood by [place] [employer] [facility] Pulse o[facility] Body temperature 2020-06-30 11:30:00 36.17 Siohban [facility] Body height 2020-06-30 11:30:00 170.2 cm [facility] Body weight 2020-06-30 11:30:00 83.915 kg [facility] BMI 2020-06-30 11:30:00 28.98 kg/m2 [facility] Systolic blood 2020-06-30 15:00:00 145 mm[Hg] [facility]iver [facility]ity of [facility] Diastolic blood 2020-06-30 15:00:00 82 mm[Hg] [facility] Heart rate 2020-06-30 15:00:00 88 /min [facility] Respiratory rate 2020-06-30 15:00:00 15 /min Univ [facility] Oxygen saturation in 2020-06-30 15:00:00 97 /min [facility] blood by [place] [employer] [facility] Body temperature 2020-06-30 11:30:00 36.17 Siobhan [facility] Body height 2020-06-30 11:30:00 170.2 cm [facility] Body weight 2020-06-30 11:30:00 83.915 kg [facility] BMI 2020-06-30 11:30:00 28.98 kg/m2 [facility] Systolic blood 2020-06-23 21:33:48 151 mm[Hg] Univer [facility]ity of pressure [facility] Diastolic blood 2020-06-23 21:33:48 98 mm[Hg] Unive rsity of pressure [facility] Heart rate 2020-06-23 21:33:48 98 /min [facility] Respiratory rate 2020-06-23 21:33:48 16 /min Univ [facility] Oxygen saturation in 2020-06-23 21:33:48 97 /min [facility] by [place] [employer] [facility] Body temperature 2020-06-23 19:45:00 37 Siobhan [facility] Body height 2020-06-23 19:45:00 170.2 cm [facility] Body weight 2020-06-23 19:45:00 83.915 kg [facility] BMI 2020-06-23 19:45:00 28.98 kg/m2 [facility] Systolic blood 2020-06-23 21:33:48 151 mm[Hg] Univer [facility]ity of [facility] Diastolic blood 2020-06-23 21:33:48 98 mm[Hg] [facility] of [facility] Heart rate 2020-06-23 21:33:48 98 /min [facility] Respiratory rate 2020-06-23 21:33:48 16 /min Univ [facility] Oxygen saturation in 2020-06-23 21:33:48 97 /min [facility] Arterial blood by [facility] Pulse oxim[facility] Branch Body temperature 2020-06-23 19:45:00 37 Siobhan [facility] Body height 2020-06-23 19:45:00 170.2 cm [facility] Body weight 2020-06-23 19:45:00 83.915 kg [facility] BMI 2020-06-23 19:45:00 28.98 kg/m2 [facility] Systolic blood 2019-11-10 05:41:00 145 mm[Hg] Univer [facility]ity of [facility] Diastolic blood 2019-11-10 05:41:00 88 mm[Hg] Unive rsity of pressure [facility] Heart rate 2019-11-10 05:41:00 68 /min [facility] Respiratory rate 2019-11-10 05:41:00 18 /min Univ [facility] Oxygen saturation in 2019-11-10 05:41:00 100 /min [facility] Arterial blood by [facility] Pulse oxim[facility] Branch Body temperature 2019-11-10 04:15:00 36.61 Siobhan [facility] Body height 2019-11-10 04:15:00 170.2 cm [facility] Body weight 2019-11-10 04:15:00 86.183 kg [facility] BMI 2019-11-10 04:15:00 29.76 kg/m2 [facility] Systolic blood 2019-11-10 05:41:00 145 mm[Hg] Univer [facility]ity of pressure [facility] Diastolic blood 2019-11-10 05:41:00 88 mm[Hg] Unive rsity of pressure [facility] Heart rate 2019-11-10 05:41:00 68 /min [facility] Respiratory rate 2019-11-10 05:41:00 18 /min Univ [facility] Oxygen saturation in 2019-11-10 05:41:00 100 /min [facility] Arterial blood by [facility] Pulse oxim[facility] Branch Body temperature 2019-11-10 04:15:00 36.61 Siobhan [facility] Body height 2019-11-10 04:15:00 170.2 cm [facility] Body weight 2019-11-10 04:15:00 86.183 kg [facility] BMI 2019-11-10 04:15:00 29.76 kg/m2 [facility] Systolic blood 2019-09-29 16:30:00 117 mm[Hg] Univer [facility]ity of [facility] Diastolic blood 2019-09-29 16:30:00 78 mm[Hg] Unive rsity of [facility] Heart rate 2019-09-29 16:30:00 56 /min [facility] Respiratory rate 2019-09-29 16:30:00 18 /min Univ [facility] Oxygen saturation in 2019-09-29 16:30:00 98 /min [facility] Arterial blood by [facility] Pulse oxim[facility] Branch Body temperature 2019-09-29 14:39:00 36.56 Siobhan [facility] Body height 2019-09-29 14:39:00 170.2 cm [facility] Body weight 2019-09-29 14:39:00 86.183 kg [facility] BMI 2019-09-29 14:39:00 29.76 kg/m2 [facility] Systolic blood 2019-09-29 16:30:00 117 mm[Hg] [facility]iver [facility]ity of [facility] Diastolic blood 2019-09-29 16:30:00 78 mm[Hg] [facility]ive [facility]ity of [facility] Heart rate 2019-09-29 16:30:00 56 /min [facility] Respiratory rate 2019-09-29 16:30:00 18 /min [facility] Oxygen saturation in 2019-09-29 16:30:00 98 /min [facility] Arterial blood by [facility] Pulse oxim[facility] Branch Body temperature 2019-09-29 14:39:00 36.56 Siobhan [facility] Body height 2019-09-29 14:39:00 170.2 cm [facility] Body weight 2019-09-29 14:39:00 86.183 kg [facility] BMI 2019-09-29 14:39:00 29.76 kg/m2 [facility] Systolic blood 2019-06-16 13:09:00 153 mm[Hg] [facility]iver [facility]ity of [facility] Diastolic blood 2019-06-16 13:09:00 82 mm[Hg] Unive rsity of pressure [facility] Respiratory rate 2019-06-16 13:09:00 18 /min Univ ersity of [facility] Body height 2019-06-16 13:09:00 170.2 cm [facility] [place] [facility] [place] Body weight 2019-06-16 13:09:00 88.451 kg [facility] BMI 2019-06-16 13:09:00 30.54 kg/m2 [facility] Oxygen saturation in 2019-06-16 13:09:00 98 /min [facility] Arterial blood by [facility] Pulse oxim[facility] Branch Systolic blood 2019-06-16 13:09:00 153 mm[Hg] Univer [facility]ity of [facility] Diastolic blood 2019-06-16 13:09:00 82 mm[Hg] Unive rsity of pressure [facility] Respiratory rate 2019-06-16 13:09:00 18 /min Univ ersity of [facility] Body height 2019-06-16 13:09:00 170.2 cm [facility] Body weight 2019-06-16 13:09:00 88.451 kg [facility] BMI 2019-06-16 13:09:00 30.54 kg/m2 [facility] Oxygen saturation in 2019-06-16 13:09:00 98 /min [facility] Ar[facility] blood by [facility] Pulse oxim[facility] Branch Systolic blood 2019-06-15 17:26:00 190 mm[Hg] Univer [facility]ity of [facility] Diastolic blood 2019-06-15 17:26:00 122 mm[Hg] [facility] Heart rate 2019-06-15 17:26:00 97 /min [facility] Body temperature 2019-06-15 17:26:00 36.56 Siobhan [facility] Respiratory rate 2019-06-15 17:26:00 16 /min [facility] Body weight 2019-06-15 17:26:00 90.266 kg [facility] BMI 2019-06-15 17:26:00 31.17 kg/m2 [facility] Oxygen saturation in 2019-06-15 17:26:00 97 /min [facility] Arterial blood by [facility] Pulse o[facility] Branch Systolic blood 2019-06-15 17:26:00 190 mm[Hg] Univer [facility]ity of [facility] Diastolic blood 2019-06-15 17:26:00 122 mm[Hg] [facility]ive rsity of [facility] Heart rate 2019-06-15 17:26:00 97 /min [facility] Body temperature 2019-06-15 17:26:00 36.56 Siobhan [facility] Respiratory rate 2019-06-15 17:26:00 16 /min [facility] Body weight 2019-06-15 17:26:00 90.266 kg [facility] BMI 2019-06-15 17:26:00 31.17 kg/m2 [facility] Oxygen saturation in 2019-06-15 17:26:00 97 /min [facility] Arter[facility] blood by [facility] P[facility] Branch Systolic blood 2019 16:22:00 116 mm[Hg] [facility]iver [facility]ity of [facility] Diastolic blood 2019 16:22:00 78 mm[Hg] [facility]ive [facility]ity of [facility] Heart rate 2019 16:22:00 84 /min [facility] Body temperature 2019 16:22:00 37 Siobhan [facility] Respiratory rate 2019 16:22:00 17 /min [facility] Body height 2019 16:22:00 170.2 cm [facility] Body weight 2019 16:22:00 90.357 kg [facility] BMI 2019 16:22:00 31.20 kg/m2 [facility] Oxygen saturation in 2019 16:22:00 96 /min [facility] blood by [facility] P[facility] Branch Systolic blood 2019 16:22:00 116 mm[Hg] [facility] of [facility] Diastolic blood 2019 16:22:00 78 mm[Hg] [facility] Heart rate 2019 16:22:00 84 /min [facility] Body temperature 2019 16:22:00 37 Siobhan [facility] Respiratory rate 2019 16:22:00 17 /min [facility] Body height 2019 16:22:00 170.2 cm [facility] Body weight 2019 16:22:00 90.357 kg [facility] BMI 2019 16:22:00 31.20 kg/m2 [facility] Oxygen saturation in 2019 16:22:00 96 /min [facility] blood by [facility] Pulse oxim[facility] Branch Heart rate 2019-01-25 00:00:00 79 /min [facility] Respiratory rate 2019-01-25 00:00:00 15 /min [facility] Systolic blood 2019-01-24 23:00:00 122 mm[Hg] [facility]ity of [facility] Diastolic blood 2019-01-24 23:00:00 68 mm[Hg] [facility]ive [facility]ity of [facility] Oxygen saturation in 2019-01-24 23:00:00 93 /min [facility] Ar[facility] blood by [facility] Branch Body temperature 2019-01-24 20:15:00 36.94 Siobhan [facility] Body weight 2019-01-24 20:15:00 86.183 kg [facility] BMI 2019-01-24 20:15:00 28.89 kg/m2 [facility] Heart rate 2019-01-25 00:00:00 79 /min [facility] Respiratory rate 2019-01-25 00:00:00 15 /min [facility] Systolic blood 2019-01-24 23:00:00 122 mm[Hg] [facility]iver [facility] Diastolic blood 2019-01-24 23:00:00 68 mm[Hg] [facility]ive [facility]ity of [facility] Oxygen saturation in 2019-01-24 23:00:00 93 /min [facility] by [place] [employer] [facility] Body temperature 2019-01-24 20:15:00 36.94 Siobhan [facility] Body weight 2019-01-24 20:15:00 86.183 kg [facility] BMI 2019-01-24 20:15:00 28.89 kg/m2 [facility] Systolic blood 2018-12-22 00:30:00 142 [...] 97 /min [facility] blood by [place] [employer] [facility] Branch Body temperature 2018-12-21 21:07:00 37.11 Siobhan [facility] Body weight 2018-12-21 21:07:00 86.183 kg [facility] BMI 2018-12-21 21:07:00 28.89 kg/m2 [facility] Systolic blood 2018-12-22 00:30:00 142 [...] 97 /min [facility] blood by [place] [employer] [facility] Body temperature 2018-12-21 21:07:00 37.11 Siobhan [facility] Body weight 2018-12-21 21:07:00 86.183 kg [facility] BMI 2018-12-21 21:07:00 28.89 kg/m2 [facility] Body weight 2020-02-01 12:04:00 85.548 kg [facility] BMI 2020-02-01 12:04:00 29.54 kg/m2 [facility] Systolic blood 2020-02-01 11:09:39 138 mm[Hg] [facility] pressure Diastolic blood 2020-02-01 11:09:39 78 mm[Hg] [facility] pressure Heart rate 2020-02-01 11:09:39 62 /min [facility] Body temperature 2020-02-01 11:09:39 36.5 Siobhan [facility] Respiratory rate 2020-02-01 11:09:39 18 /min [facility] Oxygen saturation in 2020-02-01 11:09:39 98 /min [facility] Arterial blood by Pulse oximetry Body height 2020-01-28 19:00:00 170.2 cm [facility] Procedures Procedure Date / Time Performing Clinician Source Performed TROPONIN I 2021-05-05 12:18:00 Laura Pedraza [facility] CREATINE KINASE 2021-05-05 09:25:00 [facility] TROPONIN I 2021-05-05 09:25:00 [facility] PROCALCITONIN 2021-05-05 09:25:00 [facility] PHOSPHORUS 2021-05-05 02:50:00 Laura Pedraza [facility] URIC ACID 2021-05-05 02:50:00 John paco [facility] MAGNESIUM 2021-05-05 02:50:00 [facility] TROPONIN I 2021-05-05 02:50:00 Shelley Shahid [facility] THYROID STIMULATING 2021-05-05 02:50:00 Laura Pedraza [facility] HORMONE [facility] LIPID PANEL ([id number])(TOTAL 2021-05-05 02:50:00 Laura Pedraza [facility] CHOLESTEROL, [facility] TRIGLYCERIDES, HDL) ETHANOL 2021-05-05 02:50:00 John paco [facility] N-TERMINAL PRO-BNP 2021-05-05 02:50:00 Laura Pedraza [facility] XR CHEST 1 VW 2021-05-05 00:46:11 Ciera Seymour [facility] LIPASE 2021-05-05 00:37:00 Ciera Seymour [facility] TROPONIN I 2021-05-05 00:37:00 Ciera Seymour [facility] COMP. METABOLIC PANEL 2021-05-05 00:37:00 Ciera Seymour [facility] ([id number]) [facility] CBC WITH DIFF 2021-05-05 00:37:00 Ciera Seymour [facility] GLYCOSYLATED HEMOGLOBIN 2021-05-05 00:37:00 John paco [facility] (A1C) [facility] PROTHROMBIN TIME / INR 2021-05-05 00:37:00 Ciera [facility] D[facility]ER 2021-05-05 00:37[facility] 2021-05-05 00:37:[address] [facility] COVID-19 (ID NOW RAPID 2021-05-05 00:37:00 Ciera Seymour [facility] TESTING) [facility] XR HAND 3+ VW RIGHT 2021-03-31 14:51:57 Ciera Seymour [facility] CONSENT/REFUSAL FOR 2021-03-31 14:35:47 Doctor Unassigned, [facility] DIAGNOSIS AND TREATMENT [place] [facility] XR CHEST 1 VW 2021-02-18 13:49:48 Singer [facility] MAGNESIUM 2021-02-18 13:35:00 Singer [facility] TROPONIN I 2021-02-18 13:35:00 Singer [facility] COMP. METABOLIC PANEL 2021-02-18 13:35:00 Johan Porras [facility] ([id number]) Medical Branch LIPID PANEL ([id number])(TOTAL 2021-02-18 13:35:00 Johan Porras [facility] CHOLESTEROL, Medical Branch TRIGLYCERIDES, HDL) CBC WITH DIFF 2021-02-18 13:35:00 Singer [facility] D-DIMER 2021-02-18 13:35:00 Singer [facility] ADC,CLC OR LCC ONLY - 2021-02-18 13:35:00 Singer Johan [facility] INFLUENZA A & B DIRECT [facility] [place] [facility] ANTIGEN N-TERMINAL PRO-BNP 2021-02-18 13:35:00 Singer [facility] COVID-19 (ID NOW RAPID 2021-02-18 13:35:00 Johan Porras [facility] TESTING) Medical Branch CONSENT/REFUSAL FOR 2021-02-18 13:07:47 Doctor Wanda [facility] 1 VW 2021-01-24 14:27:39 Singer [facility] COMP. METABOLIC PANEL 2021-01-24 14:22:00 Singer [facility] ([id number]) Medical Branch CBC WITH DIFF 2021-01-24 14:22:00 Singer [facility] URINALYSIS 2021-01-24 14:22:00 Singer [facility] COVID-19 (ID NOW RAPID 2021-01-24 13:30:00 Singer [facility] TESTING) Medical Branch NOTICE OF PRIVACY 2021-01-24 13:21:27 Doctor Wanda [facility] PRACTICES [place] [facility] [place] CONSENT/REFUSAL FOR 2021-01-24 13:20:24 Doctor Wanda [facility] DIAGNOSIS AND TREATMENT [place] [facility] LIPASE 2020-12-07 13:44:00 Lalito Shea [facility] COMP. METABOLIC PANEL 2020-12-07 13:44:00 Lalito Shea [facility] ([id number]) Medical Branch CBC WITH DIFF 2020-12-07 13:44:00 Lalito Shea [facility] URINALYSIS 2020-12-07 13:44:00 Lalito Shea [facility] ADC, CLC OR LCC ONLY - RSV 2020-12-07 13:44:00 Lalito Shea [facility] COVID-19 (ID NOW RAPID 2020-12-07 13:44:00 Lalito Shea [facility] TESTING) Medical Branch URINE DRUG (IMMUNOASSAY) - 2020-12-07 13:44:00 Lalito Shea [facility] COMPREHENSIVE DRUG SCREEN Medica l Branch W/O REFLEX CONSENT/REFUSAL FOR 2020-12-07 13:20:39 Doctor Unassigned, [facility] DIAGNOSIS AND TREATMENT [place] [facility] COMP. METABOLIC PANEL 2020-10-26 09:48:00 Laura Pedraza [facility] ([id number]) Medical Branch MAGNESIUM 2020-10-25 14:14:00 Alvin Baca [facility] BASIC METABOLIC PANEL (NA, 2020-10-25 14:14:00 Alvin Baca [facility] K, CL, CO2, GLUCOSE, BUN, Medica l [place] CREATININE, CA) US ABDOMEN COMPLETE 2020-10-24 23:47:12 Alvin Baca [facility] TRANSTHORACIC ECHO (TTE) 2020-10-24 20:59:43 Alvin Baca [facility] COMPLETE W/ CONTRAST Medical Bra nch TROPONIN I 2020-10-24 16:13:00 Alvin Baca [facility] HB ECG ROUTINE & RHYTHM 2020-10-24 16:02:52 Alvin Baca [facility] STRIP [facility] CRITICAL CARE 2020-10-24 13:45:35 Lalito Shea [facility] FREE T4 2020-10-24 12:50:00 Lalito Shea [facility] COVID-19 (ID NOW RAPID 2020-10-24 12:43:00 Lalito Shea [facility] TESTING) Medical Branch LAB ONLY COVID 2020-10-24 12:43:00 Lalito Shea [facility] INTERPRETATION [facility] URINE DRUG (IMMUNOASSAY) - 2020-10-24 11:52:00 Johan Porras [facility] COMPREHENSIVE DRUG SCREEN Medica l Branch URINALYSIS 2020-10-24 11:52:00 Singer Johan [facility] CT CHEST PULMONARY 2020-10-24 11:46:10 Johan Porras [facility] ANGIOGRAM [facility] POCT GLUCOSE (AUTOMATED) 2020-10-24 11:19:00 [facility] KIN[facility] 2020-10-24 11:18:00 Shabbir [facility] LIPASE 2020-10-24 11:18:00 Shabbir [facility] MAGNESIUM 2020-10-24 11:18:00 Denis [facility] TROPONIN I 2020-10-24 11:18:00 Singer [facility] THYROID STIMULATING 2020-10-24 11:18:00 Lalito Shea [facility] HORMONE [facility] COMP. METABOLIC PANEL 2020-10-24 11:18:00 Johan Porras [facility] ([id number]) Medical Branch ETHANOL 2020-10-24 11:18:00 [facility] CBC WITH DIFF 2020-10-24 11:18:00 Johan Porras [facility] PROTHROMBIN TIME / INR 2020-10-24 11:18:00 Johan Porras [facility] D-DIMER 2020-10-24 11:18:00 Singer [facility] ACTIVATED PARTIAL THRMPLAS 2020-10-24 11:18:00 Johan Porras [facility] [place] [facility] N-TERMINAL PRO-BNP 2020-10-24 11:18:00 Johan Porras [facility] HB ECG ROUTINE & RHYTHM 2020-10-24 11:12:38 Johan Porras [facility] EMERGENCY DEPARTMENT 2020-10-24 05:01:00 Doctor Unassigned, [facility] DOCUMENTS [place] [facility] URINALYSIS 2020-07-28 18:29:00 Lalito Shea [facility] ADC / LCC - DRUG SCREEN 2020-07-28 18:29:00 Lalito Shea [facility] TRIAGE Medical Branch TROPONIN I 2020-07-28 18:23:00 Lalito Shea [facility] FREE T4 2020-07-28 18:23:00 Lalito Shea [facility] THYROID STIMULATING 2020-07-28 18:23:00 Lalito Shea [facility] HORMONE [facility] HEPATIC FUNCTION PANEL 2020-07-28 18:23:00 Lalito Shea [facility] ([id number]) (ALB,T.PRO,BILI Medical Branch T,BU/BC,ALT,AST,ALK PHOS) BASIC METABOLIC PANEL (NA, 2020-07-28 18:23:00 Lalito Shea [facility] K, CL, CO2, GLUCOSE, BUN, Medica l Branch CREATININE, CA) CBC WITH DIFF 2020-07-28 18:23:00 Lalito Shea [facility] PROTHROMBIN TIME / INR 2020-07-28 18:23:00 Lalito Shea [facility] ACTIVATED PARTIAL THRMPLAS 2020-07-28 18:23:00 Lalito Shea [facility] [place] [facility] N-TERMINAL PRO-BNP 2020-07-28 18:23:00 Lalito Shea [facility] COVID-19 (ID NOW RAPID 2020-07-28 18:23:00 Lalito Shea [facility] TESTING) Medical Branch HB ECG ROUTINE & RHYTHM 2020-07-28 18:15:15 Lalito Shea [facility] CONSENT/REFUSAL FOR 2020-07-28 18:07:43 Doctor Unassigned, [facility] DIAGNOSIS AND TREATMENT [place] [facility] TROPONIN I 2020-06-30 15:28:00 Lalito Shea [facility] TROPONIN I 2020-06-30 13:36:00 Shabbir Lalito [facility] BASIC METABOLIC PANEL (NA, 2020-06-30 12:02:00 Ciera Seymour [facility] K, CL, CO2, GLUCOSE, BUN, Medica l Branch CREATININE, CA) CBC WITH DIFF 2020-06-30 12:02:00 Ciera Seymour [facility] XR ANKLE <3 VW LEFT 2020-06-23 20:29:12 Shelley Shahid [facility] XR FOOT <3 VW LEFT 2020-06-23 20:29:12 Shelley Shahid [facility] [place] [facility] [place] NOTICE OF PRIVACY 2020-06-23 19:41:37 Doctor Unaliat, [facility] PRACTICES [place] [facility] [place] CONSENT/REFUSAL FOR 2020-06-23 19:41:09 Doctor Unassigned, [facility] DIAGNOSIS AND TREATMENT [place] [facility] [place] HEMOGLOBIN A1C 2020-01-29 11:10:00 [facility] LIPID PANEL 2020-01-29 11:10:00 [facility] HEPATITIS ACUTE PANEL 2020-01-29 11:10:00 [facility] GGT 2020-01-29 11:10:00 [facility] MAGNESIUM LEVEL 2020-01-29 11:10:00 [facility] HIV AG/AB COMBINATION 2020-01-29 11:10:00 [facility] XR CHEST 1 VW 2019-11-10 04:30:10 Clovis Thomas [facility] TROPONIN I 2019-11-10 04:20:00 Clovis Thomas [facility] COMP. METABOLIC PANEL 2019-11-10 04:20:00 Clovis Thomas [facility] ([id number]) [facility] CBC WITH DIFFERENTIAL 2019-11-10 04:20:00 Clovis Thomas [facility] PROTHROMBIN TIME / INR 2019-11-10 04:20:00 Clovis Thomas [facility] ACTIVATED PARTIAL THRMPLAS 2019-11-10 04:20:00 Clovis [facility] E[facility]12 LEAD 2019-11-10 04:19:36 Clovis Thomas [facility] COMP. METABOLIC PANEL 2019-09-29 15:23:00 Johan Porras [facility] ([id number]) Medical Branch CBC WITH DIFFERENTIAL 2019-09-29 15:23:00 Johan Porras [facility] URINALYSIS 2019-09-29 15:23:00 Singer [facility] CONSENT/REFUSAL FOR 2019-09-29 14:19:48 Doctor Unaliat [facility] DIAGNOSIS AND TREATMENT [place] [facility] [place] NOTICE OF PRIVACY 2019-09-29 14:19:33 Doctor Unassigned, [facility] [place] [facility] [place] EKG-12 LEAD 2019-06-16 13:22:02 Lalito Shea [facility] LIPASE 2019-06-16 13:22:00 Shabbir Lalito [facility] TROPONIN I 2019-06-16 13:22:00 Lalito Shea [facility] COMP. METABOLIC PANEL 2019-06-16 13:22:00 Lalito Shea [facility] ([id number]) Medical Branch CBC WITH DIFFERENTIAL 2019-06-16 13:22:00 Lalito Shea [facility] PROTHROMBIN TIME / INR 2019-06-16 13:22:00 Lalito Shea [facility] ACTIVATED PARTIAL THRMPLAS 2019-06-16 13:22:00 [facility]W 2019-06-15 18:27:52 Shelley Shahid Margarita [facility] MAGNESIUM 2019-06-15 18:22:[address] [facility] TROPONIN I 2019-06-15 18:22:00 Shelley Shahid [facility] COMP. METABOLIC PANEL 2019-06-15 18:22:00 Shelley Shahid Margarita [facility] ([id number]) Medical Branch CBC WITH DIFFERENTIAL 2019-06-15 18:22:00 Shelley Shahid Margarita [facility] EKG-12 LEAD 2019-06-15 18:10:41 Shelley Shahid [facility] NOTICE OF PRIVACY 2019-06-15 17:21:46 Doctor Unassigned, [facility] [place] [facility] [place] CONSENT/REFUSAL FOR 2019-06-15 17:16:40 Doctor Unassigned, [facility] DIAGNOSIS AND TREATMENT [place] [facility] POCT GRP A STREP 2019 16:24:00 [facility] POCT FLU A AND B 2019 16:23:00 [facility] NO SHOW OR MISSED 2019 16:08:34 Doctor Unaliat, [facility] APPOINTMENT POLICY [place] [facility] h ACKNOWLEDGEMENT LIPASE 2019-01-24 21:38:00 Jerry Martin [facility] TROPONIN I 2019-01-24 21:38:00 Jerry Martin [facility] COMP. METABOLIC PANEL 2019-01-24 21:38:00 Jerry Martin [facility] ([id number]) [facility] URINALYSIS 2019-01-24 21:38:00 Jerry Martin [facility] ADC / LCC - DRUG SCREEN 2019-01-24 21:38:00 Jerry Martin [facility] CBC WITH DIFFERENTIAL 2019-01-24 21:38:00 Jerry Martin [facility] EKG-12 LEAD 2019-01-24 21:01:42 Jerry Martin [facility] CONSENT/REFUSAL FOR 2019-01-24 19:55:39 Doctor Wanda [facility] DIAGNOSIS AND TREATMENT [place] [facility] XR ABDOMEN ACUTE SERIES 2018-12-21 23:23:19 Jeremiah Demond [facility] LIPASE 2018-12-21 22:19:00 Jeremiah Demond [facility] MAGNESIUM 2018-12-21 22:19:00 Jeremiah Demond [facility] COMP. METABOLIC PANEL 2018-12-21 22:19:00 Jeremiah Demond [facility] ([id number]) Medical [place] CBC WITH DIFFERENTIAL 2018-12-21 22:19:00 Jeremiah Demond [facility] URINALYSIS 2018-12-21 22:19:00 Jeremiah Demond [facility] CONSENT/REFUSAL FOR 2018-12-21 20:57:44 Doctor Unaliat [facility] DIAGNOSIS AND TREATMENT [place] [facility] Encounters Start End Encounter Admission Attending Care Care Encounter Source Date/Time Date/Time Type Type Clinicians Facility Department ID 2021-03-12 Emergency [facility] [id number] Univers 05:38:42 [facility] 2021-03-11 Emergency [facility] [id number] Univers 23:00:35 ity of [facility] 2021-03-11 Emergency [facility] [id number] Univers 11:56:05 ity of [facility] 2021-03-11 Emergency [facility] [id number] Univers 01:30:29 ity of [facility] 2021-03-10 Emergency [facility] [id number] Univers 07:20:38 ity of [facility] 2021-03-10 Emergency [facility] [id number] Univers 00:13:36 ity of [facility] 2021-03-09 Emergency [facility] [id number] Univers 23:32:17 ity of [facility] 2021-03-08 Emergency [facility] [id number] Univers 04:08:07 ity of [facility] 2021-03-08 Emergency [facility] [id number] Univers 00:53:49 ity of [facility] 2021-03-07 Emergency [facility] [id number] Univers 21:49:21 ity of [facility] 2021-05-04 2021-05-05 Outpatient X KRISTINA MEELLIE ERIC [id number] Univers 18:35:00 12:45:00 JON [facility]y of [facility] 2021-05-04 2021-05-05 Emergency Shelley Shahid [facility] 1.2.840. [id number] Univers 18:35:00 12:45:00 Laura Pedraza [id number] ity of Jon Acevedo [place] 4.2.7.2.686 [facility] [id number] [place] [address] Branch 2021-03-31 2021-03-31 Emergency [facility] [id number] Univers 08:36:00 10:17:00 CIERA ity of [facility] 2021-03-31 2021-03-31 [facility] [id number] Univers 08:36:00 10:17:00 Ciera PATTON [id number] ity of [facility] 4.2.7.2.686 [facility] [id number] [facility] 084 Branch 2021-02-18 2021-02-18 Emergency Porras, [facility] [id number] Univers 08:21:00 11:20:00 Johan Patton [id number] i ty of [place] 4.2.7.2.686 [facility] [id number] [facility] 084 Branch 2021-01-24 2021-01-24 Emergency Porras, [facility] [id number] Univers 08:32:00 10:23:00 Johan Patton [id number] i ty of [place] 4.2.7.2.686 [facility] [id number] [facility] 084 Branch 2020-12-07 2020-12-07 [facility] [id number] Univers 08:25:00 10:28:00 Lalito Patton [id number] i ty of [place] 4.2.7.2.686 [facility] [id number] [facility] 084 Branch 2020-10-30 2020-10-30 Transition Nisha Aguilar 1.2.840.114 [id number] Univers 00:00:00 00:00:00 of Karley Reid [id number] ity of [place] 4.2.7.2.686 [facility] [id number] [facility] 403 Branch 2020-10-24 2020-10-28 [facility] PorrasJohan [facility] 1.2.840.1 [id number] Univers 06:11:00 10:50:00 Encounter Alvin Baca [id number] ity of [place] 4.2.7.2.686 [facility] [id number] [facility] 080 Branch 2020-07-28 2020-07-28 Emergency [facility] [id number] Univers 13:17:00 20:00:00 Lalito Sal [id number] i ty of [place] 4.2.7.2.686 [facility] [id number] [address] 2020-07-28 2020-07-28 Emergency [facility] 1.2.132.214 [id number] 13:17:00 20:00:00 Lalito Patton [id number] [place] 4.2.7.2.686 [place] [id number] [facility] 2020-06-30 2020-06-30 Emergency [facility] 1.2.840.114 [id number] [facility] 05:26:00 10:11:00 Ciera Patton [id number] ity of [place] 4.2.7.2.686 [facility] [id number] [address] 2020-06-30 2020-06-30 [facility] 1.2.840.114 [id number] 05:26:00 10:11:00 Ciera Patton [id number] [place] 4.2.7.2.686 [place] [id number] [facility] 2020-06-23 2020-06-23 Emergency Shelley Shahid [facility] 1.2.840.114 [id number] [facility] 13:46:00 15:46:00 Margarita Patton [id number] i ty of [place] 4.2.7.2.686 [facility] [id number] [address] 2020-06-23 2020-06-23 Emergency Zehra K [facility] 1.2.840.114 [id number] 13:46:00 15:46:00 Margarita Patton 350.1.13.10 [place] 4.2.7.2.686 [place] [id number] [facility] 2020-01-28 2020-02-01 [facility] 1.2.840.1 [id number] Methodi 14:08:19 14:20:00 Kait Ruiz [address]30.1.[address] 3.430.2.7 Hospit a .[id number] l .8 2019-11-09 2019-11-10 Emergency Theas, [facility] 1.2.924.383 [id number] Univers 23:06:12 01:26:00 Antonio [place] 350.1.13.10 i ty of [place] 4.2.7.2.686 [facility] [id number] [address] 2019-11-09 2019-11-10 Emergency Theas, [facility] 1.2.608.855 [id number] 23:06:12 01:26:00 Antonio [place] 350.1.13.[address] [place] [address] [place] [address] [id number] [facility] 2019-09-29 2019-09-29 Emergency Porras, [facility] 1.2.091.374 [id number] [facility] 09:39:50 11:47:00 Johan [place] 350.1.13.10 i ty of [place] 4.2.7.2.686 [facility] [id number] [address] 2019-09-29 2019-09-29 Emergency Porras, [facility] 1.2.013.519 [id number] 09:39:50 11:47:00 Johan [place] 350.1.13.[address] [place] [address] [place] [address] [id number] [facility] 2019-06-16 2019-06-16 Emergency Mary Bethrial, [facility] 1.2.983.129 [id number] Univers 07:08:27 08:57:00 Joesph Bell [place] 350.1.13.10 ity of [place] 4.2.7.2.6 [facility] [id number] [address] 2019-06-16 2019-06-16 Emergency X [facility], [facility] ERT [id number] Univers 07:08:27 08:57:00 JOESPH farley [facility] 2019-06-16 2019-06-16 Emergency Mary [facility]unc health, [facility] [id number] 07:08:27 08:57:00 Adrieldarnell Bell [place] 350.1.13.10 [place] 4.2.7.2.686 [place] [id number] [facility] 2019-06-15 2019-06-15 Emergency Shelley Shahid [place] 1.2.840.114 [id number] Univers 11:30:00 13:30:00 Margarita Patton 350.1.13.10 i ty of [place] 4.2.7.2.686 [place] [id number] [facility] 084 Branch 2019-06-15 2019-06-15 Emergency Shelley Shahid [place] 1.2.840.114 [id number] 11:30:00 13:30:00 Margarita Patton 350.1.13.10 [place] 4.2.7.2.686 [place] [id number] [facility] 2019-06-15 2019-06-15 Orders Doctor RAS 1.2.840.114 [id number] Univers 00:00:00 00:00:00 Only Unassigned, KAY 350.1.13.10 ity of [place] [facility] 4.2.7.2.686 [place] [id number] [facility] 009 Branch 2019-06-15 2019-06-15 Orders Doctor RAS 1.2.840.114 [id number] 00:00:00 00:00:00 Only Unassigned, KAY 350.1.13.10 [place] [facility] 4.2.7.2.686 [id number] [facility] 2019-06-06 2019-06-06 Letter Clinic, [facility] UNIVERSIT 1.2.840.114 [id number] Univers 00:00:00 00:00:00 (Out) Neurology Y HEALTH 350.1.13.10 ity of Continuity CLINICS 4.2.7.2.686 [place] [id number] [facility] 092 Branch 2019-06-06 2019-06-06 Letter Clinic, [facility] 1.2.840.114 [id number] 00:00:00 00:00:00 (Out) Neurology Y HEALTH 350.1.13.10 Continuity CLINICS 4.2.7.2.686 [id number] 092 2019 2019 Urgent [place], July [facility] 1.2.840.114 [id number] Univers 10:16:26 10:55:54 Care Unknown, Attending Health 350.1.13.10 ity of Surgical 4.2.7.2.686 [place] as Specialti [id number] Ar dical 370 [facility] 2019 2019 Urgent [facility] 1.2.840.114 [id number] 10:16:26 10:55:54 Care [facility] 350.1.13.10 Surgical 4.2.7.2.686 Specialti [id number] es [address] [place] 2019 2019 Orders Doctor RAS 1.2.840.114 [id number] Univers 00:00:00 00:00:00 Only Unassigned, KAY 350.1.13.10 ity of [place] [facility] 4.2.7.2.686 Man[place] as [id number] [address] 2019 2019 Orders Doctor RAS 1.2.840.114 [id number] 00:00:00 00:00:00 Only Unassigned, KAY 350.1.13.10 [place] [facility] 4.2.7.2.686 [id number] 009 2019-05-15 2019-05-15 Emergency X [facility] [id number] Univers 20:18:44 22:11:00 DEMOND d[facility]ine [facility] 2019-01-24 2019-01-24 Emergency [facility] 1.2.299.960 [id number] Univers 15:49:15 22:27:00 Jerry Patton 350.1.13.10 i ty of [place] 4.2.7.2.686 [place] [facility] [id number] [address] 2019-01-24 2019-01-24 Emergency [facility] 1.2.111.412 [id number] 15:49:15 22:27:00 Jerry Patton 350.1.13.10 [place] 4.2.7.2.686 [place] [id number] [facility] 2019-01-24 2019-01-24 Orders Doctor MCGINNIS 1.2.840.114 [id number] Univers 00:00:00 00:00:00 Only Unassigned, KAY 350.1.13.10 ity of [place] [facility]OS[facility] 4.2.7.2.686 Manfred as [id number] [facility] 009 Branch 2019-01-24 2019-01-24 Orders Doctor RAS 1.2.840.114 [id number] 00:00:00 00:00:00 Only Unassigned, KAY 350.1.13.10 [place] [facility] 4.2.7.2.686 [id number] 009 2018-12-21 2018-12-21 Emergency [facility] [id number] [facility] 17:07:20 19:42:00 Demond Patton 350.1.13.10 i ty of [place] 4.2.7.2.686 [facility] [id number] [address] 2018-12-21 2018-12-21 [facility] 1.2.327.149 [id number] 17:07:20 19:42:00 Demond Patton 350.1.13.10 [place] 4.2.7.2.686 [place] [id number] [facility] 2018-12-21 2018-12-21 Orders Doctor MCGINNIS 1.2.840.114 [id number] Univers 00:00:00 00:00:00 Only Unassigned, KAY 350.1.13.10 ity of [place] [facility] 4.2.7.2.686 Manfred as [phone] [address] 2018-12-21 2018-12-21 Orders Doctor RAS 1.2.840.114 [id number] 00:00:00 00:00:00 Only Unassigned, KAY 350.1.13.10 [place] [facility] 4.2.7.2.686 [id number] Results Test Description Test Time Test Comments Results Result Comments Source PROCALCITONIN 2021-05-05 18:33:47 Test Item Value Reference Range Interpretation Comme nts Procalcitonin (test code = 0.02 ng/mL <0.07 [id number]) TAMIKO (test code = TAMIKO) INTERPRETATION OF PROCALCITONIN RESULTS IN ADULTS >= 18 YEARS OF AGE Initiation and discontinuation of antibiotics on patients with suspected or confirmed Lower Respiratory Tract Infection in Adults >= 18 years of age. + + +------ ---------+ + |Procalcitonin |Interpretation ?|Antibiotic ? ? |Considerations ? |ng/mL ? | ?|recommendation | ? + + +------ ---------+ + | <0.1 ? | Bacterial ? ? ?| Strongly ? ? ?| ? | ?| infection very | discouraged ? | Overruling: ? | ?| unlikely ? ? ? | ? | ? Clinically unstable ? ? ? + + +------ ---------+ ? High risk for adverse ? ? | <0.25 ?| Bacterial ? ? ?| Discouraged ? | ? outcome ? | ?| infection ? ? ?| ? | ? SEE IMPORTANT NOTE ?| ?| unlikely ? ? ? | ? | ? + + +------ ---------+ + | >=0.25 ? ? ? | Bacterial ? ? ?| Encouraged ? ?| ? | ?| infection ? ? ?| ? | ? | ?| likely ? | ? | Consider treatment failure ?+ + +----- + if levels does not decrease | >0.5 ? | Bacterial ? ? ?| Strongly ? ? ?| appropriately ? | ?| infection very | encouraged ? ?| ? | ?| likely ? | ? | ? + + +------ ---------+ + Discontinuation of antibiotics in high-acuity patients with suspected or confirmed sepsis in Adults >= 18 years of age. + + +------ ---------+ + |Procalcitonin |Interpretation ?|Antibiotic ? ? |Considerations ? |ng/mL ? | ?|recommendation | ? + + +------ ---------+ + | <0.25 ?| Bacterial ? ? ?| Strongly ? ? ?| ? | ?| infection very | discouraged ? | Overruling: ? | ?| unlikely ? ? ? | ? | ? Clinically unstable ? ? ? + + +------ ---------+ ? High risk for adverse ? ? | <0.5 or drop | Bacterial ? ? ?| Discouraged ? | ? outcome ? | >80% from ? ?| infection ? ? ?| ? | ? SEE IMPORTANT NOTE ?| highest PCT ?| unlikely ? ? ? | ? | ? | level ?| ?| ? | ? + + +------ ---------+ + | >=0.5 ?| Bacterial ? ? ?| Encouraged ? ?| ? | ?| infection ? ? ?| ? | ? | ?| likely ? | ? | Consider treatment failure ?+ + +----- + if levels does not decrease | >1.0 ? | Bacterial ? ? ?| Strongly ? ? ?| appropriately ? | ?| infection very | encouraged ? ?| ? | ?| likely ? | ? | ? + + +------ ---------+ + Percentage of drop of Procalcitonin calculation for Discontinuation of antibiotics in high-acuity patients with suspected or confirmed sepsis in Adults >= 18 years of age. ? Procalcitonin highest{}-Procalcitonin current{}Delta Procalcitonin = x100% ? Procalcitonin current {} IMPORTANT NOTE: Procalcitonin may be elevated without bacterial infection by physiologic stress related to trauma, murillo, chronic dialysis, metastatic cancer, surgery in the past seven days, malaria, some fungal infections, and some forms of vasculitis. The interpretation algorithm may not apply to patients with immunosuppression (equivalent of >10 mg of prednisone daily), HIV with CD4 cell count < 350 cells/mm3, active malignancy on systemic chemotherapy, solid organ transplant or hematopoietic stem cell transplantation, or hospital acquired pneumonia. Additionally, some clinical trials of procalcitonin have excluded patients with shock requiring vasopressor use, acute respiratory failure requiring mechanical ventilation, or those with known lung abscess/empyema. For further information please refer to:[email or web address] Lab Interpretation (test code = Normal 04237-8) [facility] [id number] 13:20:01 Test Item Value Reference Interpretation Comments Range TROPONIN I (test 0.008 ng/mL See_Comment [Automated code = 8164299911) message] The system which generated this result transmitted reference range : <=0.034. The reference range was not used to interpret this result as normal/abnormal . TAMIKO (test code = Reference (Normal) TAMIKO) Range (defined by the 99th percentile reference [...] biotin. Lab Interpretation Normal (test code = 28784-5) [facility] [id number] 11:41:12 Test Item Value Reference Interpretation Comments Range TROPONIN I (test 0.007 ng/mL See_Comment [Automated code = 9681364243) message] The system which generated this result transmitted reference range : <=0.034. The reference range was not used to interpret this result as normal/abnormal . TAMIKO (test code = Reference (Normal) TAMIKO) Range (defined by the 99th percentile reference [...] biotin. Lab Interpretation Normal (test code = 26755-8) [facility]CREATINE [id number] 11:31:13 Test Item Value Reference Range Interpretation Comments CK (test code = 2738054740) 93 U/L 33-194 Lab Interpretation (test code = Normal 84187-4) [facility] CampusTHYROID STIMULATING [id number] 10:15:06 Test Item Value Reference Range Interpretation Comments TSH (test code = See_Comment [Automated message] 2780321224) The system [employer] generated this result transmitted ref erence range: 0.45 - 4 .70 mIU/L. The refe rence range was not u sed to interpret this result as normal/abnor mal. Lab Interpretation (test Normal code = 07695-3) [facility]N-[facility]MINAL [id number] 09:53:45 Test Item Value Reference Range Interpretation Comments NT-proBNP (test code 175 pg/mL See_Comment H [Autom ated = 9230083437) message] The system which generated this result transmitted reference range : <=125. The reference range was not used to interpret this result as normal/abnormal . TAMIKO (test code = TAMIKO) Biotin has been reported to cause a negative bias, interpret results relative to patient's use of biotin. Lab Interpretation Abnormal (test code = 00915-0) [facility] CampusETHANOL2021-12-26 09:52:20 Test Item Value Reference Range Interpretation Comments ALCOHOL (test code = <10 mg/dL 9640038646) TAMIKO (test code = TAMIKO) <10 Ewxbjcvs85-325 Toxic>100 Depression of INVESTMENTS MANAGER>400 Fatalities Reported [facility] CampusMAGNESIUM2021-12-26 09:45:24 Test Item Value Reference Range Interpretation Comments MAGNESIUM (test code = 4765343659) 1.3 mg/dL 1.7-2.4 L Lab Interpretation (test code = Abnormal 80333-6) [facility] CampusLIPID PANEL (10717)(TOTAL CHOLESTEROL, TRIGLYCERIDES, HDL)2021-05-05 09:45:24 Test Item Value Reference Range Interpretation Comments CHOL (test code = 206 mg/dL 120-200 H 9057619359) HDL (test code = 29 mg/dL >40 L 9188988828) HDLC RATIO (test code = See_Comment H [Au tomated message] 1178245775) The system [employer] generated this result transmit luis reference range : <=5.0. The refe rence range was not u sed to interpret th is result as normal/abnormal . TRIG (test code = 255 mg/dL 30-170 H 4363902378) LDL CHOL (test code = 126 mg/dL See_Comment [Auto mated message] 02676-1) The system [employer] generated this result transmit luis reference range : <=160. The refe rence range was not u sed to interpret th is result as normal/abnormal . VLDL (test code = 51 mg/dL 5-60 6524295523) Lab Interpretation (test Abnormal code = 11817-9) [facility] CampusPHOSPHORUS2021-12-26 09:45:04 Test Item Value Reference Range Interpretation Comments PHOSPHORUS (test code = 6747777487) 3.6 mg/dL 2.5-5.0 Lab Interpretation (test code = Normal 25431-4) [facility] CampusURIC [id number] 09:44:43 Test Item Value Reference Range Interpretation Comments URIC ACID (test code = 2318872823) 7.8 mg/dL 3.6-8.0 Lab Interpretation (test code = Normal 53954-5) [facility] CampusGLYCOSYLATED HEMOGLOBIN (A1C)2021-05-05 09:09:32 Test Item Value Reference Range Interpretation Comments HGB A1C (test code = 5.7 % 4.0-5.7 4548-4) TAMIKO (test code = TAMIKO) Reference RangesNormal: <5.7%Prediabetes: 5.7 - 6.4%Diabetes: > 6.5% Lab Interpretation (test Normal code = 29417-6) [facility] CampusD-[id number] 04:48:27 Test Item Value Reference Interpretation Comments Range D-DIMER (test code = <0.27 See_Comment [Autom ated 4943232341) message] The system which generated this result [...] diagnosis. Lab Interpretation Normal (test code = 00919-8) [facility] [id number] 03:29:25 Test Item Value Reference Interpretation Comments Range TROPONIN I (test 0.018 ng/mL See_Comment [Automated code = 7265646899) message] The system which generated this result transmitted reference range : <=0.034. The reference range was not used to interpret this result as normal/abnormal . TAMIKO (test code = Reference (Normal) TAMIKO) Range (defined by the 99th percentile reference [...] biotin. Lab Interpretation Normal (test code = 66610-7) [facility] [id number] 01:09:37 Test Item Value Reference Interpretation Comments Range TROPONIN I (test 0.005 ng/mL See_Comment [Automated code = 0853534347) message] The system which generated this result transmitted reference range : <=0.034. The reference range was not used to interpret this result as normal/abnormal . TAMIKO (test code = Reference (Normal) TAMIKO) Range (defined by the 99th percentile reference [...] biotin. Lab Interpretation Normal (test code = 92423-7) [facility]. METABOLIC PANEL (74089)2021-05-05 00:57:59 Test Item Value Reference Range Interpretation Comments NA (test code = 135 mmol/L 135-145 3884526515) K (test code = 3.8 mmol/L 3.5-5.0 3848279135) CL (test code = 102 mmol/L 98-108 8046816676) CO2 TOTAL (test code 23 mmol/L 23-31 = 8011027247) AGAP (test code = 2-16 7277824992) BUN (test code = 12 mg/dL 7-23 9804978219) GLUCOSE (test code = 92 mg/dL 70-110 1003182484) CREATININE (test code 0.71 mg/dL 0.60-1.25 = 9991707011) TOTAL BILI (test code 0.5 mg/dL 0.1-1.1 = 5874990625) CALCIUM (test code = 9.0 mg/dL 8.6-10.6 3745460186) T PROTEIN (test code 7.4 g/dL 6.3-8.2 = 9041654280) ALBUMIN (test code = 4.4 g/dL 3.5-5.0 4391420254) ALK PHOS (test code = 67 U/L 34-122 8466625160) ALTv (test code = 28 U/L 5-50 2-6) AST(SGOT) (test code 32 U/L 13-40 = 7260829683) eGFR (test code = mL/min/1.73m2 0222257948) TAMIKO (test code = TAMIKO) Association of [...] or urine or abnormalities in imaging tests). [facility] CampusLIPASE, [id number] 00:57:39 Test Item Value Reference Range Interpretation Comments LIPASE (test code = 2246457665) 65 U/L 0-220 Lab Interpretation (test code = Normal 33704-1) [facility] CampusaPTT2021-12-26 00:54:59 Test Item Value Reference Range Interpretation Comments APTT Patient (test See_Comment [Automat ed code = 3173-2) message] The system which generated this result transmitted reference range : 23 - 38 Seconds . The reference range was not used to interpr et this result as normal/abnormal . TAMIKO (test code = TAMIKO) The [facility] patient population mean normal value for aPTT is 30 seconds. Lab Interpretation Normal (test code = 85683-9) [facility] CampusPROTHROMBIN TIME / [id number] 00:52:58 Test Item Value Reference Range Interpretation Comments [...] tions. Lab Interpretation (test Normal code = 38520-3) [facility] WITH [id number] 00:46:38 Test Item Value Reference Range Interpretation Comments WBC (test code = See_Comment [Automated 4990-2) message] The sy stem which generated this result transmitted reference range : 4.20 - 10.70 10*3/?L. The reference range was not used to interpret this result as normal/abnormal . RBC (test code = See_Comment [Automated 289-8) message] The sy stem which generated this result transmitted reference range : 4.26 - 5.52 10*6/?L. The reference range was not used to interpret this result as normal/abnormal . HGB (test code = 13.9 g/dL 12.2-16.4 718-7) HCT (test code = 42.2 % 38.4-49.3 4544-3) MCV (test code = 89.0 fL 81.7-95.6 787-2) MCH (test code = 29.3 pg 26.1-32.7 785-6) MCHC (test code = 32.9 g/dL 31.2-35.0 786-4) RDW-SD (test code = 41.9 fL 38.5-51.6 55282-2) RDW-CV (test code = 12.7 % 12.1-15.4 788-0) PLT (test code = See_Comment H [Automated 777-3) message] The sy stem which generated this result transmitted reference range : 150 - 328 10*3/ ?L. The reference r javier was not used to interpret this result as normal/abnormal . MPV (test code = 9.9 fL 9.8-13.0 27780-4) NRBC/100 WBC (test See_Comment [Automat ed code = 5565110934) message] The system which generated this result transmitted reference range : 0.0 - 10.0 /100 WBCs. The refer ence range was not u sed to interpret th is result as normal/abnormal . NRBC x10^3 (test code <0.01 See_Comment [Auto mated = 7821606146) message] The s ystem which generated this result transmitted reference range : 10*3/?L. The reference range was not used to interpret this result as normal/abnormal . GRAN MAT (NEUT) % 62.3 % (test code = 770-8) IMM GRAN % (test code 0.30 % = 5820808648) LYMPH % (test code = 24.9 % 736-9) MONO % (test code = 9.9 % 5905-5) EOS % (test code = 1.6 % 713-8) BASO % (test code = 1.0 % 706-2) GRAN MAT x10^3(ANC) 5.68 10*3/uL 1.99-6.95 (test code = 8618105906) IMM GRAN x10^3 (test 0.03 10*3/uL 0.00-0.06 code = 8777052405) LYMPH x10^3 (test code 2.27 10*3/uL 1.09-3.23 = 731-0) MONO x10^3 (test code 0.90 10*3/uL 0.36-1.02 = 742-7) EOS x10^3 (test code = 0.15 10*3/uL 0.06-0.53 711-2) BASO x10^3 (test code 0.09 10*3/uL 0.01-0.09 = 704-7) Lab Interpretation Abnormal (test code = 03590-0) [facility] [id number] 14:27:27 Test Item Value Reference Interpretation Comments Range TROPONIN I (test 0.002 ng/mL See_Comment [Automated code = 8882632035) message] The system which generated this result transmitted reference range : <=0.034. The reference range was not used to interpret this result as normal/abnormal . TAMIKO (test code = Reference (Normal) TAMIKO) Range (defined by the 99th percentile reference [...] biotin. Lab Interpretation Normal (test code = 29522-5) [facility] CampusD-[id number] 14:25:35 Test Item Value Reference Interpretation Comments Range D-DIMER (test code = See_Comment [Autom ated 1935962730) message] The system which generated this result [...] diagnosis. Lab Interpretation Normal (test code = 57827-0) [facility] CampusN-TERMINAL [id number] 14:22:27 Test Item Value Reference Range Interpretation Comments NT-proBNP (test code 29 pg/mL See_Comment [Autom ated = 7415294968) message] The system which generated this result transmitted reference range : <=125. The reference range was not used to interpret this result as normal/abnormal . TAMIKO (test code = TAMIKO) Biotin has been reported to cause a negative bias, interpret results relative to patient's use of biotin. Lab Interpretation Normal (test code = 68526-0) [facility] CampusLIPID PANEL (28111)(TOTAL CHOLESTEROL, TRIGLYCERIDES, HDL)2021-02-18 14:14:32 Test Item Value Reference Range Interpretation Comments CHOL (test code = 209 mg/dL 120-200 H 2816060441) HDL (test code = 30 mg/dL >40 L 2614720998) HDLC RATIO (test code = See_Comment H [Au tomated message] 0729379672) The system [employer] generated this result transmit luis reference range : <=5.0. The refe rence range was not u sed to interpret th is result as normal/abnormal . TRIG (test code = 143 mg/dL 30-170 4212226276) LDL CHOL (test code = 150 mg/dL See_Comment [Auto mated message] 74885-1) The system [employer] generated this result transmit luis reference range : <=160. The refe rence range was not u sed to interpret th is result as normal/abnormal . VLDL (test code = 29 mg/dL 5-60 2135674167) Lab Interpretation (test Abnormal code = 82194-4) [facility]. METABOLIC PANEL (22355)2021-02-18 14:14:11 Test Item Value Reference Range Interpretation Comments NA (test code = 139 mmol/L 135-145 1574810807) K (test code = 4.7 mmol/L 3.5-5.0 7528795925) CL (test code = 104 mmol/L 98-108 2228515091) CO2 TOTAL (test code 30 mmol/L 23-31 = 9919559771) AGAP (test code = 2-16 3766312948) BUN (test code = 12 mg/dL 7-23 7744032095) GLUCOSE (test code = 102 mg/dL 70-110 3990786531) CREATININE (test code 0.78 mg/dL 0.60-1.25 = 0581332500) TOTAL BILI (test code 0.3 mg/dL 0.1-1.1 = 8012647291) CALCIUM (test code = 9.5 mg/dL 8.6-10.6 8485120470) T PROTEIN (test code 7.4 g/dL 6.3-8.2 = 9574458072) ALBUMIN (test code = 4.3 g/dL 3.5-5.0 6959573985) ALK PHOS (test code = 61 U/L 34-122 3604560161) ALTv (test code = 27 U/L 5-50 1742-6) AST(SGOT) (test code 26 U/L 13-40 = 4689007177) eGFR (test code = mL/min/1.73m2 6684519402) TAMIKO (test code = TAMIKO) Association of [...] or urine or abnormalities in imaging tests). [facility] CampusMAGNESIUM2021-10-11 14:14:11 Test Item Value Reference Range Interpretation Comments MAGNESIUM (test code = 4452866485) 1.8 mg/dL 1.7-2.4 Lab Interpretation (test code = Normal 66973-1) [facility] WITH [id number] 13:51:29 Test Item Value Reference Range Interpretation Comments WBC (test code = See_Comment [Automated message] 6690-2) The system [employer] generated this result transmitted ref erence range: 4.20 - 1 0.70 10*3/?L. The re ference range was not u sed to interpret this result as normal/abnor mal. RBC (test code = See_Comment [Automated message] 789-8) The system [employer] generated this result transmitted ref erence range: [...] RDW-SD (test code 43.3 fL 38.5-51.6 = 67102-2) RDW-CV (test code 13.0 % 12.1-15.4 = 788-0) PLT (test code = See_Comment [Automated message] 777-3) The system [employer] generated this result transmitted ref erence range: 150 - 32 8 10*3/?L. The re ference range was not u sed to interpret this result as normal/abnor mal. MPV (test code = 10.2 fL 9.8-13.0 52250-7) NRBC/100 WBC (test See_Comment [Automat ed message] code = 5074946150) The [employer] [facility] [employer] which generated this result transmitted ref erence range: 0.0 - 10 .0 /100 WBCs. The refer ence range was not u sed to interpret this result as normal/abnor mal. NRBC x10^3 (test <0.01 See_Comment [Automated message] code = 1913561885) The syste m which generated this result transmitted ref erence range: 10*3/?L. The reference range was not used to interpr et this result as normal/abnormal . GRAN MAT (NEUT) % 50.8 % (test code = 770-8) IMM GRAN % (test 0.70 % code = 0986280420) LYMPH % (test code 29.1 % = 736-9) MONO % (test code 12.4 % = 5905-5) EOS % (test code = 6.2 % 713-8) BASO % (test code 0.8 % = 706-2) GRAN MAT 3.71 10*3/uL 1.99-6.95 x10^3(ANC) (test code = 1161683869) IMM GRAN x10^3 0.05 10*3/uL 0.00-0.06 (test code = 3319634089) LYMPH x10^3 (test 2.13 10*3/uL 1.09-3.23 code = 731-0) MONO x10^3 (test 0.91 10*3/uL 0.36-1.02 code = 742-7) EOS x10^3 (test 0.45 10*3/uL 0.06-0.53 code = 711-2) BASO x10^3 (test 0.06 10*3/uL 0.01-0.09 code = 704-7) [facility] CampusCOMP. METABOLIC PANEL (39053)2021-01-24 14:53:54 Test Item Value Reference Range Interpretation Comments NA (test code = 137 mmol/L 135-145 5527216431) K (test code = 4.5 mmol/L 3.5-5.0 4340255343) CL (test code = 100 mmol/L 98-108 2415379733) CO2 TOTAL (test code 29 mmol/L 23-31 = 9930103731) AGAP (test code = 2-16 4062430391) BUN (test code = 16 mg/dL 7-23 0302949187) GLUCOSE (test code = 94 mg/dL 70-110 7532525737) CREATININE (test code 0.86 mg/dL 0.60-1.25 = 0008310037) TOTAL BILI (test code 0.5 mg/dL 0.1-1.1 = 9995051184) CALCIUM (test code = 9.7 mg/dL 8.6-10.6 5088204232) T PROTEIN (test code 8.0 g/dL 6.3-8.2 = 5860686398) ALBUMIN (test code = 4.5 g/dL 3.5-5.0 1226857848) ALK PHOS (test code = 64 U/L 34-122 7952246213) ALTv (test code = 21 U/L 5-50 1742-6) AST(SGOT) (test code 37 U/L 13-40 = 9993484087) eGFR (test code = mL/min/1.73m2 4163024422) TAMIKO (test code = TAMIKO) Association of [...] or urine or abnormalities in imaging tests). [facility]. METABOLIC PANEL (98761)2021-01-24 14:53:54 Test Item Value Reference Range Interpretation Comments NA (test code = 137 mmol/L 135-145 1627391224) K (test code = 4.5 mmol/L 3.5-5.0 9047932765) CL (test code = 100 mmol/L 98-108 1357280356) CO2 TOTAL (test code 29 mmol/L 23-31 = 5149907127) AGAP (test code = 2-16 2880919313) BUN (test code = 16 mg/dL 7-23 0580976725) GLUCOSE (test code = 94 mg/dL 70-110 9975491674) CREATININE (test code 0.86 mg/dL 0.60-1.25 = 1751675663) TOTAL BILI (test code 0.5 mg/dL 0.1-1.1 = 3356328174) CALCIUM (test code = 9.7 mg/dL 8.6-10.6 6516623806) T PROTEIN (test code 8.0 g/dL 6.3-8.2 = 1179996109) ALBUMIN (test code = 4.5 g/dL 3.5-5.0 3354834530) ALK PHOS (test code = 64 U/L 34-122 5920200787) ALTv (test code = 21 U/L 5-50 2-6) AST(SGOT) (test code 37 U/L 13-40 = 5041360359) eGFR (test code = mL/min/1.73m2 2294323299) TAMIKO (test code = TAMIKO) Association of [...] or urine or abnormalities in imaging tests). [facility] WITH [id number] 14:39:54 Test Item Value Reference Range Interpretation Comments WBC (test code = See_Comment [Automated 8090-2) message] The sy stem which generated this [...] RDW-SD (test code = 44.4 fL 38.5-51.6 77302-8) RDW-CV (test code = 13.2 % 12.1-15.4 788-0) PLT (test code = See_Comment [Automated 777-3) message] The sy stem which generated this result transmitted reference range : 150 - 328 10*3/ ?L. The reference r javier was not used to interpret this result as normal/abnormal . MPV (test code = 10.7 fL 9.8-13.0 77537-3) NRBC/100 WBC (test See_Comment [Automat ed code = 1741821909) message] The system which generated this result transmitted reference range : 0.0 - 10.0 /100 WBCs. The refer ence range was not u sed to interpret th is result as normal/abnormal . NRBC x10^3 (test code <0.01 See_Comment [Auto mated = 0021284069) message] The s ystem which generated this result transmitted reference range : 10*3/?L. The reference range was not used to interpret this result as normal/abnormal . GRAN MAT (NEUT) % 54.9 % (test code = 770-8) IMM GRAN % (test code 0.50 % = 4754722174) LYMPH % (test code = 24.0 % 736-9) MONO % (test code = 16.5 % 5905-5) EOS % (test code = 3.5 % 713-8) BASO % (test code = 0.6 % 706-2) GRAN MAT x10^3(ANC) 3.58 10*3/uL 1.99-6.95 (test code = 2691408083) IMM GRAN x10^3 (test 0.03 10*3/uL 0.00-0.06 code = 6993885769) LYMPH x10^3 (test code 1.57 10*3/uL 1.09-3.23 = 731-0) MONO x10^3 (test code 1.08 10*3/uL 0.36-1.02 H = 742-7) EOS x10^3 (test code = 0.23 10*3/uL 0.06-0.53 711-2) BASO x10^3 (test code 0.04 10*3/uL 0.01-0.09 = 704-7) Lab Interpretation Abnormal (test code = 21598-5) [facility] WITH [id number] 14:39:54 Test Item Value Reference Range Interpretation Comments WBC (test code = See_Comment [Automated 1790-2) message] The sy stem which generated this result transmitted reference range : 4.20 - 10.70 10*3/?L. The reference range was not used to interpret this result as normal/abnormal . RBC (test code = See_Comment [Automated 259-8) message] The sy stem which generated this [...] RDW-SD (test code = 44.4 fL 38.5-51.6 92915-7) RDW-CV (test code = 13.2 % 12.1-15.4 788-0) PLT (test code = See_Comment [Automated 777-3) message] The sy stem which generated this result transmitted reference range : 150 - 328 10*3/ ?L. The reference r javier was not used to interpret this result as normal/abnormal . MPV (test code = 10.7 fL 9.8-13.0 50489-1) NRBC/100 WBC (test See_Comment [Automat ed code = 6800678760) message] The system which generated this result transmitted reference range : 0.0 - 10.0 /100 WBCs. The refer ence range was not u sed to interpret th is result as normal/abnormal . NRBC x10^3 (test code <0.01 See_Comment [Auto mated = 8107507134) message] The s ystem which generated this result transmitted reference range : 10*3/?L. The reference range was not used to interpret this result as normal/abnormal . GRAN MAT (NEUT) % 54.9 % (test code = 770-8) IMM GRAN % (test code 0.50 % = 8416929835) LYMPH % (test code = 24.0 % 736-9) MONO % (test code = 16.5 % 5905-5) EOS % (test code = 3.5 % 713-8) BASO % (test code = 0.6 % 706-2) GRAN MAT x10^3(ANC) 3.58 10*3/uL 1.99-6.95 (test code = 1039284446) IMM GRAN x10^3 (test 0.03 10*3/uL 0.00-0.06 code = 6277373054) LYMPH x10^3 (test code 1.57 10*3/uL 1.09-3.23 = 731-0) MONO x10^3 (test code 1.08 10*3/uL 0.36-1.02 H = 742-7) EOS x10^3 (test code = 0.23 10*3/uL 0.06-0.53 711-2) BASO x10^3 (test code 0.04 10*3/uL 0.01-0.09 = 704-7) Lab Interpretation Abnormal (test code = 34885-1) [facility] (IMMUNOASSAY) - COMPREHENSIVE DRUG SCREEN W/O [id number] 14:38:57 Test Item Value Reference Range Interpretation Comments AMPHET (test code = Negative Negative 5605634485) CLAUDIA U (test code = Negative Negative 3121339442) BENZO U (test code = Negative Negative 0113531077) Cocaine Metabolite (test Negative Negative code = 7725490319) METHADONE (test code = Negative Negative 5105515158) OPIATES (test code = Negative Negative 0099798450) PCP (test code = Negative Negative 3568385160) THC (test code = Negative Negative 2354487524) TAMIKO (test code = TAMIKO) Urine Drug [...] testing). Lab Interpretation (test Normal code = 68986-1) [facility]COVID-[facility] (ID NOW RAPID TESTING)2020-12-07 14:31:11 Test Item Value Reference Range Interpretation Comments SARS-CoV-2 Rapid ID NOW Not Detected Not Detected (test code = 31965-4) TAMIKO (test code = TAMIKO) ID NOW COVID-19 Assay is an isothermal nucleic acid amplification test intended for the qualitative detection of nucleic acid from SARS-CoV-2 viral RNA in nasopharyngeal (SOAP PRESS FEEDER) specimens. It is used under Emergency Use [...] indicated. Lab Interpretation Normal (test code = 25898-2) [facility] CampusAD OR C [id number] 14:23:50 Test Item Value Reference Range Interpretation Comments RSV Antigen (test code = 5608162394) Negative Negative Lab Interpretation (test code = Normal 45633-1) [facility]URINALYSIS2021-07-30 14:10:55 Test Item Value Reference Range Interpretation Comments APPEARANCE (test code = Clear Clear 8783328435) COLOR (test code = Yellow Yellow 5033613453) PH (test code = 4.8-8.0 5452921221) SP GRAVITY (test code = 1.003-1.030 4522068808) GLU U QUAL (test code = Normal Normal 5886172239) BLOOD (test code = Negative Negative 2538490726) KETONES (test code = Negative Negative 6410746848) PROTEIN (test code = Negative Negative 2887-8) UROBILIN (test code = Normal Normal 4730950427) BILIRUBIN (test code = Negative Negative 1493276433) NITRITE (test code = Negative Negative 9270378513) LEUK GINO (test code = Negative Negative 5707053570) RBC/HPF (test code = See_Comment [Autom ated message] 6161445777) The system [employer] generated this result transmitted ref erence range: 0 - 3 HP F. The reference range was not used to int erpret this result as normal/abnormal . WBC/HPF (test code = See_Comment [Autom ated message] 6614948530) The system [employer] generated this result transmitted ref erence range: 0 - 5 HP F. The reference range was not used to int erpret this result as normal/abnormal . BACTERIA (test code = Negative Negative 6561455566) Lab Interpretation (test Normal code = 80448-5) Formerly [facility]. METABOLIC PANEL (11423)2020-12-07 14:10:04 Test Item Value Reference Range Interpretation Comments NA (test code = 142 mmol/L 135-145 5936245638) K (test code = 4.3 mmol/L 3.5-5.0 4736243772) CL (test code = 106 mmol/L 98-108 9592249072) CO2 TOTAL (test code = 23 mmol/L 23-31 7557160011) AGAP (test code = 2-16 0717727514) BUN (test code = 15 mg/dL 7-23 5094236262) GLUCOSE (test code = 94 mg/dL 70-110 9104807805) CREATININE (test code = 0.70 mg/dL 0.60-1.25 7333155565) TOTAL BILI (test code = 0.5 mg/dL 0.1-1.9 5597703731) CALCIUM (test code = 9.7 mg/dL 8.6-10.6 4089757752) T PROTEIN (test code = 8.3 g/dL 6.3-8.2 H 7977468868) ALBUMIN (test code = 4.8 g/dL 3.5-5.0 7877314440) ALK PHOS (test code = 62 U/L 34-122 7397686510) ALTv (test code = 31 U/L 5-50 1742-6) AST(SGOT) (test code = 84 U/L 13-40 H 3507363983) eGFR (test code = mL/min/1.73m2 9488460546) TAMIKO (test code = TAMIKO) Association of [...] tests). Lab Interpretation Abnormal (test code = 18406-1) [facility]2021-07-30 14:09:48 Test Item Value Reference Range Interpretation Comments LIPASE (test code = 3353801648) 171 U/L 0-220 Lab Interpretation (test code = Normal 77949-6) [facility] WITH [id number] 13:59:24 Test Item Value Reference Range Interpretation Comments WBC (test code = See_Comment [Automated message] 6690-2) The system [employer] generated this result transmitted ref erence range: 4.20 - 1 0.70 10*3/?L. The re ference range was not u sed to interpret this result as normal/abnor mal. RBC (test code = See_Comment [Automated message] 789-8) The system [employer] generated this result transmitted ref erence range: [...] RDW-SD (test code 45.8 fL 38.5-51.6 = 54633-3) RDW-CV (test code 13.5 % 12.1-15.4 = 788-0) PLT (test code = See_Comment [Automated message] 777-3) The system whic h generated this result transmitted ref erence range: 150 - 32 8 10*3/?L. The re ference range was not u sed to interpret this result as normal/abnor mal. MPV (test code = 11.0 fL 9.8-13.0 80492-1) NRBC/100 WBC (test See_Comment [Automat ed message] code = 4716827763) The syste m which generated this result transmitted ref erence range: 0.0 - 10 .0 /100 WBCs. The refer ence range was not u sed to interpret this result as normal/abnor mal. NRBC x10^3 (test <0.01 See_Comment [Automated message] code = 0717381967) The syste m which generated this result transmitted ref erence range: 10*3/?L. The reference range was not used to interpr et this result as normal/abnormal . GRAN MAT (NEUT) % 47.3 % (test code = 770-8) IMM GRAN % (test 0.20 % code = 6768824354) LYMPH % (test code 33.4 % = 736-9) MONO % (test code 13.0 % = 5905-5) EOS % (test code = 5.2 % 713-8) BASO % (test code 0.9 % = 706-2) GRAN MAT 3.08 10*3/uL 1.99-6.95 x10^3(ANC) (test code = 9919433689) IMM GRAN x10^3 <0.03 0.00-0.06 (test code = 7949971574) LYMPH x10^3 (test 2.18 10*3/uL 1.09-3.23 code = 731-0) MONO x10^3 (test 0.85 10*3/uL 0.36-1.02 code = 742-7) EOS x10^3 (test 0.34 10*3/uL 0.06-0.53 code = 711-2) BASO x10^3 (test 0.06 10*3/uL 0.01-0.09 code = 704-7) [facility]LAB ONLY COVID [id number] 15:23:58COVID DMT InterpretationInterpretation/Recommendations: Molecular NAAT Tests for [...] COVID-19 testing the patient has had at [facility], including molecular NAAT testing (more commonly known as PCR testing and Rapid ID Now testing) and antibody testing. It does not take into account any testing that a patient has had outside of the [facility] medical record. [facility] LABORATORY SERVICESCOVID Resul amBREO-IfR-0 Rapid ID NOW (no units) ? ? Date ? Value ? 10/24/2020 ? Not Detected ? ? ? 07/28/2020 ? Not Detected ? [facility] LABORATORY SERVICESUnBallinger [facility] District COMP. METABOLIC PANEL (20227)2020-10-26 12:44:29 Test Item Value Reference Range Interpretation Comments NA (test code = 135 mmol/L 135-145 4519606980) K (test code = 4.2 mmol/L 3.5-5.0 2518437614) CL (test code = 101 mmol/L 98-108 6288902488) CO2 TOTAL (test code = 25 mmol/L 23-31 6676882033) AGAP (test code = 2-16 0990218061) BUN (test code = 7 mg/dL 7-23 2006864127) GLUCOSE (test code = 84 mg/dL 70-110 1711362798) CREATININE (test code = 0.69 mg/dL 0.60-1.25 9913061937) TOTAL BILI (test code = 0.8 mg/dL 0.1-1.8 1430537322) CALCIUM (test code = 9.0 mg/dL 8.6-10.6 4275569074) T PROTEIN (test code = 6.3 g/dL 6.3-8.2 1545035396) ALBUMIN (test code = 3.5 g/dL 3.5-5.0 5081321352) ALK PHOS (test code = 83 U/L 34-122 0117712029) ALTv (test code = 37 U/L 5-50 1742-6) AST(SGOT) (test code = 45 U/L 13-40 H 4909348466) eGFR (test code = mL/min/1.73m2 5216567493) TAMIKO (test code = TAMIKO) Association of [...] tests). Lab Interpretation Abnormal (test code = 60374-8) [facility] CampusMAGNESIUM2021-06-17 15:46:06 Test Item Value Reference Range Interpretation Comments MAGNESIUM (test code = 1123479334) 1.4 mg/dL 1.7-2.4 L Lab Interpretation (test code = Abnormal 33513-1) [facility]BA[facility] (NA, K, CL, CO2, GLUCOSE, BUN, CREATININE, CA)2020-10-25 15:45:46 Test Item Value Reference Range Interpretation Comments NA (test code = 135 mmol/L 135-145 5073754398) K (test code = 3.1 mmol/L 3.5-5.0 L 8644822590) CL (test code = 106 mmol/L 98-108 8924004150) CO2 TOTAL (test code = 24 mmol/L 23-31 4948012237) AGAP (test code = 2-16 0136354632) BUN (test code = 4 mg/dL 7-23 L 0152496836) GLUCOSE (test code = 99 mg/dL 70-110 3604008888) CREATININE (test code = 0.61 mg/dL 0.60-1.25 1927799480) CALCIUM (test code = 7.4 mg/dL 8.6-10.6 L 8055546883) eGFR (test code = mL/min/1.73m2 0300185254) TAMIKO (test code = TAMIKO) Association of [...] tests). Lab Interpretation Abnormal (test code = 91931-0) [facility] ABDOMEN [id number] 23:59:57No evidence of acute sonographic abnormalities in the abdomen. RL: 135 ORDERING PHYSICIAN: NASEEM FLANAGAN HISTORY: Abdominal pain. Alcohol withdrawal COMPARISON: [...] portalvenous waveform in the main portal vein. [facility], Radiant Results Inft User - 10/24/2020 7:01 [...] acute sonographic abnormalities in the abdomen.RL: 135 UnBall[facility] DistrictTROPONIN [id number] 17:24:18 Test Item Value Reference Range Interpretation Comments TROPONIN I (test 0.007 ng/mL See_Comment [Automated code = 0435397780) message] The system which generated this result [...] ? Lab Interpretation Normal (test code = 71593-9) [facility] CampusMAGNESIUM2021-06-16 14:02:13 Test Item Value Reference Range Interpretation Comments MAGNESIUM (test code = 6402354007) 1.9 mg/dL 1.7-2.4 Lab Interpretation (test code = Normal 66841-1) [facility] CampusCritical [id number] 13:45:35Lalito Shea MD ? ? 10/24/2020 ?8:45 [...] patient's response to treatment and examination of patientUnBallinger Memorial Hospital DistrictFREE [id number] 13:37:55 Test Item Value Reference Range Interpretation Comments FREE T4 (test code = See_Comment [Autom ated message] 4923145122) The system [employer] generated this result transmitted ref erence range: 0.78 - 2 .20 ng/dL:. The ref erence range was not u sed to interpret this result as normal/abnor mal. Lab Interpretation (test Normal code = 12744-8) [facility] CampusTHYROID STIMULATING [id number] 13:21:08 Test Item Value Reference Range Interpretation Comments TSH (test code = See_Comment [Automated message] 4929208299) The system [employer] generated this result transmitted ref erence range: 0.45 - 4 .70 mIU/L. The refe rence range was not u sed to interpret this result as normal/abnor mal. Lab Interpretation (test Normal code = 39746-4) [facility] CampusCOVID-19 (ID NOW RAPID TESTING)2020-10-24 13:06:12 Test Item Value Reference Range Interpretation Comments SARS-CoV-2 Rapid ID NOW Not Detected Not Detected (test code = 89863-5) TAMIKO (test code = TAMIKO) ID NOW COVID-19 Assay is an isothermal nucleic acid amplification test intended for the qualitative detection of nucleic acid from SARS-CoV-2 viral RNA in nasopharyngeal (SOAP PRESS FEEDER) specimens. It is used under Emergency Use [...] indicated. Lab Interpretation Normal (test code = 60200-0) [facility] CampusTROPONIN [id number] 13:00:47 Test Item Value Reference Range Interpretation Comments TROPONIN I (test 0.017 ng/mL See_Comment [Automated code = 6614438466) message] The system which generated this result [...] ? Lab Interpretation Normal (test code = 67664-8) [facility] CampusN-TERMINAL [id number] 12:54:30 Test Item Value Reference Range Interpretation Comments NT-proBNP (test code 22 pg/mL See_Comment [Autom ated = 6084778677) message] The system which generated this result transmitted reference range : <=125. The reference range was not used to interpret this result as normal/abnormal . TAMIKO (test code = TAMIKO) Biotin has been reported to cause a negative bias, interpret results relative to patient's use of biotin. Lab Interpretation Normal (test code = 92619-6) [facility] CampusETHANOL2021-06-16 12:51:47 Test Item Value Reference Range Interpretation Comments ALCOHOL (test code = 284 mg/dL 3906269304) TAMIKO (test code = TAMIKO) <10 Njkypdki62-407 Toxic>100 Depression of INVESTMENTS MANAGER>400 Fatalities Reported [facility] CampusCREATINE [id number] 12:51:07 Test Item Value Reference Range Interpretation Comments CK (test code = 9370834874) 744 U/L 33-194 H Lab Interpretation (test code = Abnormal 65290-8) [facility] CampusLIPASE2021-06-16 12:51:07 Test Item Value Reference Range Interpretation Comments LIPASE (test code = 8772897639) 92 U/L 0-220 Lab Interpretation (test code = Normal 14506-0) [facility] CampusCOMP. METABOLIC PANEL (97616)2020-10-24 12:49:29 Test Item Value Reference Range Interpretation Comments NA (test code = 144 mmol/L 135-145 9095528947) K (test code = 3.5 mmol/L 3.5-5.0 7386564330) CL (test code = 98 mmol/L 98-108 3341724265) CO2 TOTAL (test code = 29 mmol/L 23-31 4489499374) AGAP (test code = 2-16 H 5870967878) BUN (test code = 7 mg/dL 7-23 5961277869) GLUCOSE (test code = 148 mg/dL 70-110 H 7687169662) CREATININE (test code = 0.84 mg/dL 0.60-1.25 4608511999) TOTAL BILI (test code = 0.4 mg/dL 0.1-1.2 1886074734) CALCIUM (test code = 9.1 mg/dL 8.6-10.6 1600007810) T PROTEIN (test code = 7.6 g/dL 6.3-8.2 1050478563) ALBUMIN (test code = 4.5 g/dL 3.5-5.0 2029091163) ALK PHOS (test code = 89 U/L 34-122 6731993869) ALTv (test code = 49 U/L 5-50 1742-6) AST(SGOT) (test code = 75 U/L 13-40 H 7479192428) eGFR (test code = mL/min/1.73m2 8841619306) TAMIKO (test code = TAMIKO) Association of [...] tests). Lab Interpretation Abnormal (test code = 29047-1) [facility] CampusCT CHEST PULMONARY [id number] 12:44:11 No pulmonary embolism to the level [...] reviewed this study and agree with theabove report.[facility] CampusURINE DRUG (IMMUNOASSAY) - COMPREHENSIVE DRUG [id number] 12:36:45 Test Item Value Reference Range Interpretation Comments AMPHET (test code = Negative Negative 4772767760) CLAUDIA U (test code = Negative Negative 1433536672) BENZO U (test code = Presumptive Positive Negative A 1713806464) Cocaine Metabolite (test Negative Negative code = 4415397730) METHADONE (test code = Negative Negative 4032413395) OPIATES (test code = Negative Negative 0411526195) PCP (test code = Negative Negative 5748113624) THC (test code = Negative Negative 9792965415) TAMIKO (test code = TAMIKO) Urine Drug [...] testing). Lab Interpretation (test Abnormal code = 78270-1) [facility] CampusURINALYSIS2021-06-16 12:18:19 Test Item Value Reference Range Interpretation Comments APPEARANCE (test code = Clear Clear 1321360355) COLOR (test code = Yellow Yellow 1493507461) PH (test code = 4.8-8.0 8920570362) SP GRAVITY (test code = 1.003-1.030 H 5732839232) GLU U QUAL (test code = Normal Normal 2922612108) BLOOD (test code = 1+ Negative A 1407646845) KETONES (test code = Negative Negative 9627044971) PROTEIN (test code = 100 mg/dL Negative A 2887-8) UROBILIN (test code = Normal Normal 9014046920) BILIRUBIN (test code = Negative Negative 6070861084) NITRITE (test code = Negative Negative 4949776179) LEUK GINO (test code = Negative Negative 4373022753) RBC/HPF (test code = See_Comment [Autom ated message] 8908200935) The system [employer] generated this result transmit luis reference range : 0 - 3 HPF. The refe rence range was not u sed to interpret th is result as normal/abnormal . WBC/HPF (test code = See_Comment [Autom ated message] 9369414225) The system [employer] generated this result transmit luis reference range : 0 - 5 HPF. The refe rence range was not u sed to interpret th is result as normal/abnormal . BACTERIA (test code = Few Negative A 7598759444) MUCOUS (test code = Slight Negative LPF A 7920037278) SQ EPITH (test code = <1 HPF 5043597539) HYAL CAST (test code = See_Comment H [Aut omated message] 9872192722) The system [employer] generated this result transmit luis reference range : <=2 LPF. The refere nce range was not u sed to interpret th is result as normal/abnormal . GRAN CASTS (test code = See_Comment H [Au tomated message] 6487673215) The system [employer] generated this result transmit luis reference range : <=1 LPF. The refere nce range was not u sed to interpret th is result as normal/abnormal . Lab Interpretation (test Abnormal code = 81837-9) [facility] CampusD-[id number] 12:16:48 Test Item Value Reference Interpretation Comments Range D-DIMER (test code = See_Comment H [Autom ated 0704059916) message] The system which generated this result [...] diagnosis. Lab Interpretation Abnormal (test code = 49652-5) [facility] CampusACTIVATED PARTIAL THRMPLAS [id number] 12:10:05 Test Item Value Reference Range Interpretation Comments APTT Patient (test See_Comment [Automat ed code = 3173-2) message] The system which generated this result transmitted reference range : 23 - 38 Seconds . The reference range was not used to interpr et this result as normal/abnormal . TAMIKO (test code = TAMIKO) The [facility] patient population mean normal value for aPTT is 30 seconds. Lab Interpretation Normal (test code = 05774-1) [facility] CampusPROTHROMBIN TIME / [id number] 12:08:09 Test Item Value Reference Range Interpretation [...] tions. Lab Interpretation (test Normal code = 15046-4) [facility] CampusCBC WITH [id number] 11:46:38 Test Item Value Reference Range Interpretation Comments WBC (test code = See_Comment [Automated 9990-2) message] The sy stem which generated this result transmitted reference range : 4.20 - 10.70 10*3/?L. The reference range was not used to interpret this result as normal/abnormal . RBC (test code = See_Comment [Automated 349-8) message] The sy stem which generated this [...] RDW-SD (test code = 43.2 fL 38.5-51.6 19299-2) RDW-CV (test code = 13.8 % 12.1-15.4 788-0) PLT (test code = See_Comment [Automated 777-3) message] The sy stem which generated this result transmitted reference range : 150 - 328 10*3/ ?L. The reference r javier was not used to interpret this result as normal/abnormal . MPV (test code = 9.1 fL 9.8-13.0 L 97363-0) NRBC/100 WBC (test See_Comment [Automat ed code = 8039228509) message] The system which generated this result transmitted reference range : 0.0 - 10.0 /100 WBCs. The refer ence range was not u sed to interpret th is result as normal/abnormal . NRBC x10^3 (test code <0.01 See_Comment [Auto mated = 3851917020) message] The s ystem which generated this result transmitted reference range : 10*3/?L. The reference range was not used to interpret this result as normal/abnormal . GRAN MAT (NEUT) % 58.2 % (test code = 770-8) IMM GRAN % (test code 0.40 % = 4417489210) LYMPH % (test code = 29.0 % 736-9) MONO % (test code = 10.1 % 5905-5) EOS % (test code = 1.2 % 713-8) BASO % (test code = 1.1 % 706-2) GRAN MAT x10^3(ANC) 4.82 10*3/uL 1.99-6.95 (test code = 1140346028) IMM GRAN x10^3 (test 0.03 10*3/uL 0.00-0.06 code = 2159237811) LYMPH x10^3 (test code 2.40 10*3/uL 1.09-3.23 = 731-0) MONO x10^3 (test code 0.84 10*3/uL 0.36-1.02 = 742-7) EOS x10^3 (test code = 0.10 10*3/uL 0.06-0.53 711-2) BASO x10^3 (test code 0.09 10*3/uL 0.01-0.09 = 704-7) Lab Interpretation Abnormal (test code = 30711-7) [facility] CampusPOCT GLUCOSE (AUTOMATED)2020-10-24 11:21:11 Test Item Value Reference Range Interpretation Comments POCT GLU (test code = 2451963986) 147 mg/dL 70-110 H Lab Interpretation (test code = Abnormal 11284-3) [facility] CampusTHYROID STIMULATING [id number] 19:43:06 Test Item Value Reference Range Interpretation Comments TSH (test code = See_Comment [Automated message] 1118506397) The system [employer] generated this result transmitted ref erence range: 0.45 - 4 .70 mIU/L. The refe rence range was not u sed to interpret this result as normal/abnor mal. Lab Interpretation (test Normal code = 71283-7) [facility] CampusaPTT2021-03-20 19:41:21 Test Item Value Reference Range Interpretation Comments APTT Patient (test See_Comment [Automat ed code = 3173-2) message] The system which generated this result transmitted reference range : 23 - 38 Seconds . The reference range was not used to interpr et this result as normal/abnormal . TAMIKO (test code = TAMIKO) The [facility] patient population mean normal value for aPTT is 30 seconds. Lab Interpretation Normal (test code = 28481-8) [facility] CampusFREE [id number] 19:29:44 Test Item Value Reference Range Interpretation Comments FREE T4 (test code = See_Comment [Autom ated message] 7695963439) The system [employer] generated this result transmitted ref erence range: 0.78 - 2 .20 ng/dL:. The ref erence range was not u sed to interpret this result as normal/abnor mal. Lab Interpretation (test Normal code = 33907-9) [facility] CampusTroponin [id number] 19:24:48 Test Item Value Reference Range Interpretation Comments TROPONIN I (test <0.012 See_Comment [Automated code = 1040670043) message] The system which generated this result [...] ? Lab Interpretation Normal (test code = 68692-5) [facility] CampusN-TERMINAL [id number] 19:21:28 Test Item Value Reference Range Interpretation Comments NT-proBNP (test code 47 pg/mL See_Comment [Autom ated = 3662695109) message] The system which generated this result transmitted reference range : <=125. The reference range was not used to interpret this result as normal/abnormal . TAMIKO (test code = TAMIKO) Biotin has been reported to cause a negative bias, interpret results relative to patient's use of biotin. Lab Interpretation Normal (test code = 76557-6) [facility] CampusBaun[facility] Metabolic Panel (NA, K, CL, CO2, GLUCOSE, BUN, CREATININE, CA)2020-07-28 19:12:46 Test Item Value Reference Range Interpretation Comments NA (test code = 137 mmol/L 135-145 3779396900) K (test code = 3.5 mmol/L 3.5-5.0 8240838213) CL (test code = 99 mmol/L 98-108 2222008622) CO2 TOTAL (test code = 26 mmol/L 23-31 2515684710) AGAP (test code = 2-16 6303103136) BUN (test code = 3 mg/dL 7-23 L 7678608486) GLUCOSE (test code = 96 mg/dL 70-110 5789804897) CREATININE (test code = 0.69 mg/dL 0.60-1.25 7569638942) CALCIUM (test code = 9.1 mg/dL 8.6-10.6 5161452513) eGFR Calculation mL/min/1.73m2 (Non-) (test code = 4095263293) eGFR Calculation mL/min/1.73m2 () (test code = 4396212562) TAMIKO (test code = TAMIKO) Association of [...] tests). Lab Interpretation Abnormal (test code = 46555-2) [facility] CampusHepatic Function Panel (ALB, T.PRO, BILI T, BU/BC, ALT, AST, ALK PHOS)2020-07-28 19:12:26 Test Item Value Reference Range Interpretation Comments TOTAL BILI (test code = 3235705115) 0.5 mg/dL 0.1-1.1 BILI UNCON (test code = 9919952632) 0.3 mg/dL 0.1-1.1 BILI CONJ (test code = 7793498526) 0.0 mg/dL 0.0-0.3 T PROTEIN (test code = 5164632729) 7.7 g/dL 6.3-8.2 ALBUMIN (test code = 5886164604) 4.7 g/dL 3.5-5.0 ALK PHOS (test code = 8638561498) 115 U/L 34-122 ALTv (test code = 1742-6) 29 U/L 5-50 AST(SGOT) (test code = 5454131161) 27 U/L 13-40 Lab Interpretation (test code = Normal 26003-1) [facility] CampusCOVID-19 (ID NOW RAPID TESTING)2020-07-28 19:00:24 Test Item Value Reference Range Interpretation Comments SARS-CoV-2 Rapid ID NOW Not Detected Not Detected (test code = 47622-4) TAMIKO (test code = TAMIKO) ID NOW COVID-19 Assay is an isothermal nucleic acid amplification test intended for the qualitative detection of nucleic acid from SARS-CoV-2 viral RNA in nasopharyngeal (SOAP PRESS FEEDER) specimens. It is used under Emergency Use [...] indicated. Lab Interpretation Normal (test code = 84010-8) [facility] - DRUG SCREEN [id number] 18:56:58 Test Item Value Reference Range Interpretation Comments BENZO U (test code = Presumptive Positive Negative A 2890753225) CLAUDIA U (test code = Negative Negative 9793899943) AMPHET (test code = Presumptive Positive Negative A 7228665152) THC (test code = Negative Negative 2386854005) METHADONE (test code = Negative Negative 5231154767) Meth U (test code = Presumptive Positive Negative A 1799023483) OPIATES (test code = Presumptive Positive Negative A 3563764153) Cocaine Metabolite (test Negative Negative code = 6021030088) PROPOXY (test code = Negative Negative 1492286584) Tric U (test code = Negative Negative 5495160570) PCP (test code = Negative Negative 2272606415) OXYCOD (test code = Negative Negative 2262665129) TAMIKO (test code = TAMIKO) Urine Drug [...] testing). Lab Interpretation (test Abnormal code = 84514-0) [facility] CampusUrinalysis2021-03-20 18:54:32 Test Item Value Reference Range Interpretation Comments APPEARANCE (test code = Clear Clear 3579438929) COLOR (test code = Yellow Yellow 9425220446) PH (test code = 4.8-8.0 5118230500) SP GRAVITY (test code = 1.003-1.030 5204878280) GLU U QUAL (test code = Normal Normal 9539273083) BLOOD (test code = Negative Negative 4601153122) KETONES (test code = Negative Negative 7551790357) PROTEIN (test code = Negative Negative 2887-8) UROBILIN (test code = Normal Normal 1953213501) BILIRUBIN (test code = Negative Negative 1907889271) NITRITE (test code = Negative Negative 6317566395) LEUK GINO (test code = Negative Negative 8505021009) RBC/HPF (test code = See_Comment [Autom ated message] 9049538120) The system [employer] generated this result transmitted ref erence range: 0 - 3 HP F. The reference range was not used to int erpret this result as normal/abnormal . WBC/HPF (test code = <1 See_Comment [Autom ated message] 6566346493) The system [employer] generated this result transmitted ref erence range: 0 - 5 HP F. The reference range was not used to int erpret this result as normal/abnormal . BACTERIA (test code = Negative Negative 5876763132) Lab Interpretation (test Normal code = 77461-3) [facility] CampusProthrombin Time (PT) / [id number] 18:54:27 Test Item Value Reference Range Interpretation Comments PROTIME PATIENT (test See_Comment [Auto mated message] code = 5964-2) The system [employer] generated this result transmitted ref erence range: 12.0 - 1 4.7 Seconds. The re ference range was not u sed to interpret this result as normal/abnor mal. INR (test code = 6301-6) Nor mal INR <1.1; Warfarin Therap eutic range 2.0 to 3. 0 or 2.5 to 3.5, dep ending upon the indica tions. Lab Interpretation (test Normal code = 50590-1) [facility] with [id number] 18:41:23 Test Item Value Reference Range Interpretation Comments WBC (test code = See_Comment [Automated message] 6690-2) The system [employer] generated this result transmitted ref erence range: 4.20 - 1 0.70 10*3/?L. The re ference range was not u sed to interpret this result as normal/abnor mal. RBC (test code = See_Comment [Automated message] 789-8) The system [employer] generated this result transmitted ref erence range: [...] RDW-SD (test code 43.4 fL 38.5-51.6 = 40813-3) RDW-CV (test code 13.2 % 12.1-15.4 = 788-0) PLT (test code = See_Comment [Automated message] 777-3) The system [employer] generated this result transmitted ref erence range: 150 - 32 8 10*3/?L. The re ference range was not u sed to interpret this result as normal/abnor mal. MPV (test code = 9.9 fL 9.8-13.0 57535-3) NRBC/100 WBC (test See_Comment [Automat ed message] code = 6304785035) The syste m which generated this result transmitted ref erence range: 0.0 - 10 .0 /100 WBCs. The refer ence range was not u sed to interpret this result as normal/abnor mal. NRBC x10^3 (test <0.01 See_Comment [Automated message] code = 4970297193) The syste m which generated this result transmitted ref erence range: 10*3/?L. The reference range was not used to interpr et this result as normal/abnormal . GRAN MAT (NEUT) % 68.0 % (test code = 770-8) IMM GRAN % (test 0.50 % code = 6925327234) LYMPH % (test code 18.2 % = 736-9) MONO % (test code 11.6 % = 5905-5) EOS % (test code = 1.1 % 713-8) BASO % (test code 0.6 % = 706-2) GRAN MAT 5.40 10*3/uL 1.99-6.95 x10^3(ANC) (test code = 2645152538) IMM GRAN x10^3 0.04 10*3/uL 0.00-0.06 (test code = 2528165418) LYMPH x10^3 (test 1.45 10*3/uL 1.09-3.23 code = 731-0) MONO x10^3 (test 0.92 10*3/uL 0.36-1.02 code = 742-7) EOS x10^3 (test 0.09 10*3/uL 0.06-0.53 code = 711-2) BASO x10^3 (test 0.05 10*3/uL 0.01-0.09 code = 704-7) [facility] [id number] 15:56:00 Test Item Value Reference Range Interpretation Comments TROPONIN I (test 0.006 ng/mL See_Comment [Automated code = 0476744035) message] The system which generated this result [...] ? Lab Interpretation Normal (test code = 38936-1) [facility] [id number] 14:08:00 Test Item Value Reference Range Interpretation Comments TROPONIN I (test 0.021 ng/mL See_Comment Hemolyzed code = 4230519684) specimen [Automated message] The system which generated [...] ? Lab Interpretation Normal (test code = 11556-6) [facility] CampusBasi Metabolic Panel (NA, K, CL, CO2, GLUCOSE, BUN, CREATININE, CA)2020-06-30 13:25:00 Test Item Value Reference Range Interpretation Comments NA (test code = 138 mmol/L 135-145 8888110228) K (test code = 3.5 mmol/L 3.5-5 8402650098) CL (test code = 107 mmol/L 98-108 3072875536) CO2 TOTAL (test code = 20 mmol/L 23-31 L 2113536803) AGAP (test code = 2-16 8194521311) BUN (test code = 12 mg/dL 7-23 6051067995) GLUCOSE (test code = 93 mg/dL 70-110 1301744333) CREATININE (test code = 0.83 mg/dL 0.6-1.25 8653186178) CALCIUM (test code = 8.9 mg/dL 8.6-10.6 9304728919) eGFR Calculation mL/min/1.73m2 (Non-) (test code = 3647060037) eGFR Calculation mL/min/1.73m2 () (test code = 0582006548) TAMIKO (test code = TAMIKO) Association of [...] tests). Lab Interpretation Abnormal (test code = 52232-1) [facility] with [id number] 13:04:00 Test Item Value Reference Range Interpretation [...] RDW-SD (test code = 47.3 fL 38.5-51.6 57061-8) RDW-CV (test code = 14.1 % 12.1-15.4 788-0) PLT (test code = See_Comment [Automated 777-3) message] The sy stem which generated this result transmitted reference range : 150 - 328 10*3/ ?L. The reference r javier was not used to interpret this result as normal/abnormal . MPV (test code = 10.1 fL 9.8-13 76701-7) NRBC/100 WBC (test See_Comment [Automat ed code = 9301595928) message] The system which generated this result transmitted reference range : 0.0 - 10.0 /100 WBCs. The refer ence range was not u sed to interpret th is result as normal/abnormal . NRBC x10^3 (test code <0.01 See_Comment [Auto mated = 9954456084) message] The s ystem which generated this result transmitted reference range : 10*3/?L. The reference range was not used to interpret this result as normal/abnormal . GRAN MAT (NEUT) % 45.2 % (test code = 770-8) IMM GRAN % (test code 0.50 % = 7360228815) LYMPH % (test code = 39.0 % 736-9) MONO % (test code = 11.9 % 5905-5) EOS % (test code = 2.6 % 713-8) BASO % (test code = 0.8 % 706-2) GRAN MAT x10^3(ANC) 3.00 10*3/uL 1.99-6.95 (test code = 7735462055) IMM GRAN x10^3 (test 0.03 10*3/uL 0-0.06 code = 7117613048) LYMPH x10^3 (test code 2.58 10*3/uL 1.09-3.23 = 731-0) MONO x10^3 (test code 0.79 10*3/uL 0.36-1.02 = 742-7) EOS x10^3 (test code = 0.17 10*3/uL 0.06-0.53 711-2) BASO x10^3 (test code 0.05 10*3/uL 0.01-0.09 = 704-7) Lab Interpretation Abnormal (test code = 48294-1) [facility]XR CHEST 1 [id number] 05:44:12 No acute cardiopulmonary abnormality. Preliminary Report [...] acute cardiopulmonary abnormality.Preliminary Report Dictated by Resident: Berhane Chin, Reymundo Hoskins MD., have reviewed this study and agree with the abovereport.[facility] TROPONIN [id number] 05:05:00 Test Item Value Reference Range Interpretation Comments TROPONIN I (test <0.012 See_Comment [Automated code = 9934776361) message] The system which generated this result [...] ? Lab Interpretation Normal (test code = 72680-7) [facility]COMP. METABOLIC PANEL ([id number])2019-11-10 05:05:00 Test Item Value Reference Range Interpretation Comments NA (test code = 135 mmol/L 135-145 2638599536) K (test code = 3.6 mmol/L 3.5-5 9551931838) CL (test code = 102 mmol/L 98-108 0653558146) CO2 TOTAL (test code = 23 mmol/L 23-31 6645547397) AGAP (test code = 2-16 1933494977) BUN (test code = 15 mg/dL 7-23 2155264287) GLUCOSE (test code = 93 mg/dL 70-110 8306362407) CREATININE (test code 0.79 mg/dL 0.6-1.25 = 3627813570) TOTAL BILI (test code 0.4 mg/dL 0.1-1.1 = 7076684568) CALCIUM (test code = 9.4 mg/dL 8.6-10.6 0059959890) T PROTEIN (test code = 7.9 g/dL 6.3-8.2 0124485311) ALBUMIN (test code = 4.5 g/dL 3.5-5 9777292476) ALK PHOS (test code = 61 U/L 34-122 7296431459) ALTv (test code = 22 U/L 5-50 2-6) AST(SGOT) (test code = 26 U/L 13-40 3444162524) eGFR Calculation mL/min/1.73m2 (Non-) (test code = 9219524031) eGFR Calculation mL/min/1.73m2 () (test code = 8208603701) TAMIKO (test code = TAMIKO) Association of [...] or urine or abnormalities in imaging tests). [facility] CampusaPTT2020-07-02 04:45:00 Test Item Value Reference Range Interpretation Comments APTT Patient (test See_Comment [Automat ed code = 3173-2) message] The system which generated this result transmitted reference range : 23 - 38 Seconds . The reference range was not used to interpr et this result as normal/abnormal . TAMIKO (test code = TAMIKO) The [facility] patient population mean normal value for aPTT is 30 seconds. Lab Interpretation Normal (test code = 78751-4) [facility] CampusPROTHROMBIN TIME / [id number] 04:45:00 Test Item Value Reference Range Interpretation [...] tions. Lab Interpretation (test Normal code = 34889-5) [facility] CampusCBC WITH [id number] 04:37:00 Test Item Value Reference Range Interpretation Comments WBC (test code = See_Comment [Automated 7390-2) message] The sy stem which generated this result transmitted reference range : 4.20 - 10.70 10*3/?L. The reference range was not used to interpret this result as normal/abnormal . RBC (test code = See_Comment [Automated 599-8) message] The sy stem which generated this [...] RDW-SD (test code = 39.7 fL 38.5-51.6 09285-9) RDW-CV (test code = 12.7 % 12.1-15.4 788-0) PLT (test code = See_Comment [Automated 777-3) message] The sy stem which generated this result transmitted reference range : 150 - 328 10*3/ ?L. The reference r javier was not used to interpret this result as normal/abnormal . MPV (test code = 10.3 fL 9.8-13 12101-5) NRBC/100 WBC (test See_Comment [Automat ed code = 5125081747) message] The system which generated this result transmitted reference range : 0.0 - 10.0 /100 WBCs. The refer ence range was not u sed to interpret th is result as normal/abnormal . NRBC x10^3 (test code <0.01 See_Comment [Auto mated = 5458165742) message] The s ystem which generated this result transmitted reference range : 10*3/?L. The reference range was not used to interpret this result as normal/abnormal . GRAN MAT (NEUT) % 47.9 % (test code = 770-8) IMM GRAN % (test code 0.20 % = 1773883218) LYMPH % (test code = 33.3 % 736-9) MONO % (test code = 12.1 % 5905-5) EOS % (test code = 5.7 % 713-8) BASO % (test code = 0.8 % 706-2) GRAN MAT x10^3(ANC) 5.08 10*3/uL 1.99-6.95 (test code = 3486431444) IMM GRAN x10^3 (test <0.03 0-0.06 code = 9626595295) LYMPH x10^3 (test code 3.53 10*3/uL 1.09-3.23 H = 731-0) MONO x10^3 (test code 1.28 10*3/uL 0.36-1.02 H = 742-7) EOS x10^3 (test code = 0.61 10*3/uL 0.06-0.53 H 711-2) BASO x10^3 (test code 0.09 10*3/uL 0.01-0.09 = 704-7) Lab Interpretation Abnormal (test code = 28505-8) [facility] CampusURINALYSIS2020-05-21 16:01:00 Test Item Value Reference Range Interpretation Comments APPEARANCE (test code = Clear Clear 5597674039) COLOR (test code = Other Yellow A 7544004802) PH (test code = 4.8-8.0 5636318411) SP GRAVITY (test code = <=1.005 1.003-1.030 9026653131) GLU U QUAL (test code = Negative Negative 7933053905) BLOOD (test code = Negative Negative 7990757799) KETONES (test code = Negative Negative 5470714088) PROTEIN (test code = Negative Negative 2887-8) UROBILIN (test code = 0.2 mg/dL See_Comment [Auto mated message] 4937537516) The system [employer] generated this result transmit luis reference range : 0-1.0 mg/dL. Th e reference range was not used to interpret this result as normal/abnormal . BILIRUBIN (test code = Negative Negative 2696967029) NITRITE (test code = Negative Negative 6916353188) LEUK GINO (test code = Negative Negative 8973189414) RBC/HPF (test code = See_Comment [Autom ated message] 3916633759) The system [employer] generated this result transmit luis reference range : 0 - 3 HPF. The refe rence range was not u sed to interpret th is result as normal/abnormal . WBC/HPF (test code = See_Comment [Autom ated message] 3865359732) The system [employer] generated this result transmit luis reference range : 0 - 5 HPF. The refe rence range was not u sed to interpret th is result as normal/abnormal . BACTERIA (test code = Negative Negative 7492956493) MUCOUS (test code = Slight Negative LPF A 0045573067) SQ EPITH (test code = HPF 1333031360) Lab Interpretation (test Abnormal code = 14993-5) [facility] CampusCOM. METABOLIC PANEL ([id number])2019-09-29 15:57:00 Test Item Value Reference Range Interpretation Comments NA (test code = 140 mmol/L 135-145 9410716144) K (test code = 4.8 mmol/L 3.5-5 6342692352) CL (test code = 106 mmol/L 98-108 8682840944) CO2 TOTAL (test code = 24 mmol/L 23-31 5380716883) AGAP (test code = 2-16 4363400768) BUN (test code = 14 mg/dL 7-23 3519016111) GLUCOSE (test code = 94 mg/dL 70-110 1540020972) CREATININE (test code 0.66 mg/dL 0.6-1.25 = 0581258020) TOTAL BILI (test code 0.5 mg/dL 0.1-1.1 = 8297566510) CALCIUM (test code = 9.5 mg/dL 8.6-10.6 4493565383) T PROTEIN (test code = 8.1 g/dL 6.3-8.2 8263966108) ALBUMIN (test code = 4.6 g/dL 3.5-5 0833492810) ALK PHOS (test code = 41 U/L 34-122 4776783156) ALTv (test code = 17 U/L 5-50 1742-6) AST(SGOT) (test code = 29 U/L 13-40 2630114878) eGFR Calculation mL/min/1.73m2 (Non-) (test code = 1274007564) eGFR Calculation mL/min/1.73m2 () (test code = 7193505047) TAMIKO (test code = TAMIOK) Association of Glomerular Filtration Rate (GFR) and [...] or urine or abnormalities in imaging tests). [facility] WITH [id number] 15:34:00 Test Item Value Reference Range Interpretation Comments WBC (test code = See_Comment [Automated 8868-2) message] The sy stem which generated this result transmitted reference range : 4.20 - 10.70 10*3/?L. The reference range was not used to interpret this result as normal/abnormal . RBC (test code = See_Comment [Automated 204-8) message] The sy stem which generated this [...] RDW-SD (test code = 41.0 fL 38.5-51.6 87081-9) RDW-CV (test code = 12.5 % 12.1-15.4 788-0) PLT (test code = See_Comment [Automated 777-3) message] The sy stem which generated this result transmitted reference range : 150 - 328 10*3/ ?L. The reference r javier was not used to interpret this result as normal/abnormal . MPV (test code = 10.3 fL 9.8-13 03718-1) NRBC/100 WBC (test See_Comment [Automat ed code = 7018296011) message] The system which generated this result transmitted reference range : 0.0 - 10.0 /100 WBCs. The refer ence range was not u sed to interpret th is result as normal/abnormal . NRBC x10^3 (test code <0.01 See_Comment [Auto mated = 9485188242) message] The s ystem which generated this result transmitted reference range : 10*3/?L. The reference range was not used to interpret this result as normal/abnormal . GRAN MAT (NEUT) % 54.5 % (test code = 770-8) IMM GRAN % (test code 0.20 % = 0575628352) LYMPH % (test code = 28.0 % 736-9) MONO % (test code = 10.0 % 5905-5) EOS % (test code = 6.6 % 713-8) BASO % (test code = 0.7 % 706-2) GRAN MAT x10^3(ANC) 4.68 10*3/uL 1.99-6.95 (test code = 5003956559) IMM GRAN x10^3 (test <0.03 0-0.06 code = 4491725864) LYMPH x10^3 (test code 2.41 10*3/uL 1.09-3.23 = 731-0) MONO x10^3 (test code 0.86 10*3/uL 0.36-1.02 = 742-7) EOS x10^3 (test code = 0.57 10*3/uL 0.06-0.53 H 711-2) BASO x10^3 (test code 0.06 10*3/uL 0.01-0.09 = 704-7) Lab Interpretation Abnormal (test code = 42953-7) [facility] [id number] 13:56:00 Test Item Value Reference Range Interpretation Comments TROPONIN I (test <0.012 See_Comment [Automated code = 8445393223) message] The system which generated this result [...] ? Lab Interpretation Normal (test code = 29689-6) [facility] CampusPROTHROMBIN TIME / [id number] 13:44:00 Test Item Value Reference Range Interpretation Comments PROTIME PATIENT (test See_Comment [Auto mated message] code = 5964-2) The system [employer] ich generated this result transmitted ref erence range: 12.0 - 1 4.7 Seconds. The re ference range was not u sed to interpret this result as normal/abnor mal. INR (test code = 6301-6) Nor mal INR <1.1; Warfarin Therap eutic range 2.0 to 3. 0 or 2.5 to 3.5, dep ending upon the indica tions. Lab Interpretation (test Normal code = 14284-2) [facility]COMP[facility] MET[facility]OLIC PANEL ([id number])2019-06-16 13:44:00 Test Item Value Reference Range Interpretation Comments NA (test code = 138 mmol/L 135-145 5490854438) K (test code = 3.9 mmol/L 3.5-5 9043183054) CL (test code = 100 mmol/L 98-108 9015085982) CO2 TOTAL (test code = 28 mmol/L 23-31 6936524041) AGAP (test code = 2-16 5518809227) BUN (test code = 14 mg/dL 7-23 0351501280) GLUCOSE (test code = 108 mg/dL 70-110 0588009771) CREATININE (test code = 0.75 mg/dL 0.6-1.25 9285183842) TOTAL BILI (test code = 0.5 mg/dL 0.1-1.6 6728346044) CALCIUM (test code = 8.8 mg/dL 8.6-10.6 1988907759) T PROTEIN (test code = 7.3 g/dL 6.3-8.2 1551906753) ALBUMIN (test code = 4.4 g/dL 3.5-5 8192693383) ALK PHOS (test code = 63 U/L 34-122 6294601971) ALTv (test code = 48 U/L 5-50 1742-6) AST(SGOT) (test code = 47 U/L 13-40 H 4711740879) eGFR Calculation mL/min/1.73m2 (Non-) (test code = 7954555529) eGFR Calculation mL/min/1.73m2 () (test code = 2767738580) TAMIKO (test code = TAMIKO) Association of [...] tests). Lab Interpretation Abnormal (test code = 43246-1) [facility] CampusLIPASE, [id number] 13:44:00 Test Item Value Reference Range Interpretation Comments LIPASE (test code = 9773035689) 61 U/L 0-220 Lab Interpretation (test code = Normal 71037-6) [facility] CampusaPTT2020-02-06 13:43:00 Test Item Value Reference Range Interpretation Comments APTT Patient (test See_Comment [Automat ed code = 3173-2) message] The system which generated this result transmitted reference range : 23 - 38 Seconds . The reference range was not used to interpr et this result as normal/abnormal . TAMIKO (test code = TAMIKO) The [facility] patient population mean normal value for aPTT is 30 seconds. Lab Interpretation Normal (test code = 56160-7) [facility] CampusCBC WITH [id number] 13:30:00 Test Item Value Reference Range Interpretation Comments WBC (test code = See_Comment [Automated 5290-2) message] The sy stem which generated this result transmitted reference range : 4.20 - 10.70 10*3/?L. The reference range was not used to interpret this result as normal/abnormal . RBC (test code = See_Comment [Automated 974-8) message] The sy stem which generated this [...] RDW-SD (test code = 40.6 fL 38.5-51.6 68724-4) RDW-CV (test code = 12.6 % 12.1-15.4 788-0) PLT (test code = See_Comment [Automated 777-3) message] The sy stem which generated this result transmitted reference range : 150 - 328 10*3/ ?L. The reference r javier was not used to interpret this result as normal/abnormal . MPV (test code = 9.7 fL 9.8-13 L 08850-4) NRBC/100 WBC (test See_Comment [Automat ed code = 9725060449) message] The system which generated this result transmitted reference range : 0.0 - 10.0 /100 WBCs. The refer ence range was not u sed to interpret th is result as normal/abnormal . NRBC x10^3 (test code <0.01 See_Comment [Auto mated = 2498958397) message] The s ystem which generated this result transmitted reference range : 10*3/?L. The reference range was not used to interpret this result as normal/abnormal . GRAN MAT (NEUT) % 52.5 % (test code = 770-8) IMM GRAN % (test code 0.30 % = 9927074682) LYMPH % (test code = 29.9 % 736-9) MONO % (test code = 11.5 % 5905-5) EOS % (test code = 4.5 % 713-8) BASO % (test code = 1.3 % 706-2) GRAN MAT x10^3(ANC) 3.14 10*3/uL 1.99-6.95 (test code = 7493487558) IMM GRAN x10^3 (test <0.03 0-0.06 code = 7492603270) LYMPH x10^3 (test code 1.79 10*3/uL 1.09-3.23 = 731-0) MONO x10^3 (test code 0.69 10*3/uL 0.36-1.02 = 742-7) EOS x10^3 (test code = 0.27 10*3/uL 0.06-0.53 711-2) BASO x10^3 (test code 0.08 10*3/uL 0.01-0.09 = 704-7) Lab Interpretation Abnormal (test code = 21746-2) [facility] CampusTROP[facility]IN [id number] 19:02:00 Test Item Value Reference Range Interpretation Comments TROPONIN I (test <0.012 See_Comment [Automated code = 9271761647) message] The system which generated this result [...] ? Lab Interpretation Normal (test code = 88591-3) [facility] CampusCOM. METABOLIC PANEL ([id number])2019-06-15 18:50:00 Test Item Value Reference Range Interpretation Comments NA (test code = 145 mmol/L 135-145 5283442995) K (test code = 4.1 mmol/L 3.5-5 6806225591) CL (test code = 103 mmol/L 98-108 4683717308) CO2 TOTAL (test code = 32 mmol/L 23-31 H 5749087129) AGAP (test code = 2-16 3506517098) BUN (test code = 11 mg/dL 7-23 9961984457) GLUCOSE (test code = 108 mg/dL 70-110 9893094841) CREATININE (test code = 0.73 mg/dL 0.6-1.25 6975190115) TOTAL BILI (test code = 0.5 mg/dL 0.1-1.0 8212632704) CALCIUM (test code = 9.3 mg/dL 8.6-10.6 2155769708) T PROTEIN (test code = 8.1 g/dL 6.3-8.2 8374246285) ALBUMIN (test code = 4.9 g/dL 3.5-5 0984206178) ALK PHOS (test code = 65 U/L 34-122 7850561202) ALTv (test code = 61 U/L 5-50 H 1742-6) AST(SGOT) (test code = 45 U/L 13-40 H 9490668684) eGFR Calculation mL/min/1.73m2 (Non-) (test code = 1832261480) eGFR Calculation mL/min/1.73m2 () (test code = 5561985429) TAMIKO (test code = TAMIKO) Association of [...] tests). Lab Interpretation Abnormal (test code = 64142-5) [facility] CampusMAGNESIUM2020-02-05 18:50:00 Test Item Value Reference Range Interpretation Comments MAGNESIUM (test code = 2191811551) 2.2 mg/dL 1.7-2.4 Lab Interpretation (test code = Normal 52144-2) [facility]CB WITH [id number] 18:39:00 Test Item Value Reference Range Interpretation Comments WBC (test code = See_Comment [Automated message] 6690-2) The system [employer] generated this result transmitted ref erence range: 4.20 - 1 0.70 10*3/?L. The re ference range was not u sed to interpret this result as normal/abnor mal. RBC (test code = See_Comment [Automated message] 789-8) The system [employer] generated this result transmitted ref erence range: [...] RDW-SD (test code 41.5 fL 38.5-51.6 = 24183-1) RDW-CV (test code 12.9 % 12.1-15.4 = 788-0) PLT (test code = See_Comment [Automated message] 777-3) The system whic h generated this result transmitted ref erence range: 150 - 32 8 10*3/?L. The re ference range was not u sed to interpret this result as normal/abnor mal. MPV (test code = 10.0 fL 9.8-13 40697-3) NRBC/100 WBC (test See_Comment [Automat ed message] code = 9350347671) The syste m which generated this result transmitted ref erence range: 0.0 - 10 .0 /100 WBCs. The refer ence range was not u sed to interpret this result as normal/abnor mal. NRBC x10^3 (test <0.01 See_Comment [Automated message] code = 8138664911) The syste m which generated this result transmitted ref erence range: 10*3/?L. The reference range was not used to interpr et this result as normal/abnormal . GRAN MAT (NEUT) % 45.9 % (test code = 770-8) IMM GRAN % (test 0.10 % code = 4457258423) LYMPH % (test code 39.6 % = 736-9) MONO % (test code 8.6 % = 5905-5) EOS % (test code = 4.6 % 713-8) BASO % (test code 1.2 % = 706-2) GRAN MAT 3.36 10*3/uL 1.99-6.95 x10^3(ANC) (test code = 4058620865) IMM GRAN x10^3 <0.03 0-0.06 (test code = 1774510305) LYMPH x10^3 (test 2.91 10*3/uL 1.09-3.23 code = 731-0) MONO x10^3 (test 0.63 10*3/uL 0.36-1.02 code = 742-7) EOS x10^3 (test 0.34 10*3/uL 0.06-0.53 code = 711-2) BASO x10^3 (test 0.09 10*3/uL 0.01-0.09 code = 704-7) [facility] CampusXR [facility]ST 1 [id number] 18:31:36HISTORY: SOB. TECHNIQUE: Portable AP erect view [...] limits. CONCLUSIONS: No signs of acute cardiopulmonary disease.[facility] FLU A AND B (MOLECULAR)2019 16:36:00 Test Item Value Reference Range Interpretation Comments POCT INFLUENZA A (test code = negative Negative - Negative 3840) POCT INFLUENZA B (test code = negative Negative - Negative 3841) Lab Interpretation (test code = Normal 49624-2) [facility] GRP A STREP (MOLECULAR)2019 16:34:00 Test Item Value Reference Range Interpretation Comments POCT GP A STREP (test code = negative Negative - Negative 38698-1) Lab Interpretation (test code = Normal 67248-0) [facility]URIN[facility]YSIS2019-09-16 23:07:00 Test Item Value Reference Range Interpretation Comments APPEARANCE (test code = Clear Clear 2758055116) COLOR (test code = Yellow Yellow [id number]) PH (test code = 4.8-8.0 3774559998) SP GRAVITY (test code = 1.003-1.030 9996309589) GLU U QUAL (test code = Normal Normal 6582240068) BLOOD (test code = Negative Negative 2406237852) KETONES (test code = 5 mg/dL Negative A 0085236422) PROTEIN (test code = Negative Negative 2887-8) UROBILIN (test code = Normal Normal 1294343616) BILIRUBIN (test code = Negative Negative 4005257192) NITRITE (test code = Negative Negative 5079746950) LEUK GINO (test code = Negative Negative 9334517083) RBC/HPF (test code = See_Comment [Autom ated message] [id number]) The system [employer] generated this result transmitted ref erence range: 0 - 3 HP F. The reference range was not used to int erpret this result as normal/abnormal . WBC/HPF (test code = See_Comment [Autom ated message] 8272618355) The system [employer] generated this result transmitted ref erence range: 0 - 5 HP F. The reference range was not used to int erpret this result as normal/abnormal . BACTERIA (test code = Negative Negative 9825026129) MUCOUS (test code = Slight Negative LPF A 6207625517) HYAL CAST (test code = See_Comment H [Aut omated message] 3267686110) The system [employer] generated this result transmitted ref erence range: <=2 LPF. The reference range was not used to int erpret this result as normal/abnormal . Lab Interpretation (test Abnormal code = 85831-1) [facility] [id number] 22:42:00 Test Item Value Reference Range Interpretation Comments TROPONIN I (test 0.002 ng/mL See_Comment [Automated code = 0406935444) message] The system which generated this result [...] ? Lab Interpretation Normal (test code = 53836-9) [facility] / [facility] - DRUG SCREEN [id number] 22:36:00 Test Item Value Reference Range Interpretation Comments BENZO U (test code = Presumptive Positive Negative A 0653108366) CLAUDIA U (test code = Negative Negative 5085342054) AMPHET (test code = Negative Negative 7879122886) THC (test code = Negative Negative 7949696695) METHADONE (test code = Negative Negative 1489057247) Meth U (test code = Negative Negative 9664578157) OPIATES (test code = Negative Negative 0900776109) Cocaine Metabolite (test Negative Negative code = 1511323278) PROPOXY (test code = Negative Negative 8411580426) Tric U (test code = Negative Negative 8964927553) PCP (test code = Negative Negative 2865441353) OXYCOD (test code = Negative Negative 6578829288) TAMIKO (test code = TAMIKO) Urine Drug [...] testing). Lab Interpretation (test Abnormal code = 28802-4) [facility] ([id number])2019-01-24 22:30:00 Test Item Value Reference Range Interpretation Comments NA (test code = 148 mmol/L 135-145 H 0666061857) K (test code = 4.0 mmol/L 3.5-5 0045944766) CL (test code = 110 mmol/L 98-108 H 4750978627) CO2 TOTAL (test code = 24 mmol/L 23-31 1056970409) AGAP (test code = 2-16 4695625094) BUN (test code = 9 mg/dL 7-23 6254095088) GLUCOSE (test code = 85 mg/dL 70-110 1600805426) CREATININE (test code = 0.67 mg/dL 0.6-1.25 6572244110) TOTAL BILI (test code = 0.2 mg/dL 0.1-1.7 0858132946) CALCIUM (test code = 8.7 mg/dL 8.6-10.6 5791395325) T PROTEIN (test code = 7.8 g/dL 6.3-8.2 7294101603) ALBUMIN (test code = 4.7 g/dL 3.5-5 0718905774) ALK PHOS (test code = 47 U/L 34-122 3677906482) ALT(SGPT) (test code = 19 U/L 9-51 5671601508) AST(SGOT) (test code = 25 U/L 13-40 3832082183) eGFR Calculation mL/min/1.73m2 (Non-) (test code = 9356796659) eGFR Calculation mL/min/1.73m2 () (test code = 7839342420) TAMIKO (test code = TAMIKO) Association of [...] tests). Lab Interpretation Abnormal (test code = 21095-6) [facility] 22:30:00 Test Item Value Reference Range Interpretation Comments LIPASE (test code = 4201078625) 112 U/L 0-220 Lab Interpretation (test code = Normal 21036-4) [facility]CB WITH [id number] 22:07:00 Test Item Value Reference Range Interpretation Comments WBC (test code = See_Comment [Automated message] 6690-2) The system [employer] generated this result transmitted ref erence range: 4.20 - 1 0.70 10*3/?L. The re ference range was not u sed to interpret this result as normal/abnor mal. RBC (test code = See_Comment [Automated message] 249-8) The system [employer] generated this result transmitted ref erence range: [...] RDW-SD (test code 42.0 fL 38.5-51.6 = 38429-6) RDW-CV (test code 12.8 % 12.1-15.4 = 788-0) PLT (test code = See_Comment [Automated message] 157-3) The system [employer] generated this result transmitted ref erence range: 150 - 32 8 10*3/?L. The re ference range was not u sed to interpret this result as normal/abnor mal. MPV (test code = 10.7 fL 9.8-13 32362-9) NRBC/100 WBC (test See_Comment [Automat ed message] code = 5917805315) The [employer] [facility] [employer] which generated this result transmitted ref erence range: 0.0 - 10 .0 /100 WBCs. The refer ence range was not u sed to interpret this result as normal/abnor mal. NRBC x10^3 (test <0.01 See_Comment [Automated message] code = 1199216894) The syste m which generated this result transmitted ref erence range: 10*3/?L. The reference range was not used to interpr et this result as normal/abnormal . GRAN MAT (NEUT) % 55.2 % (test code = 770-8) IMM GRAN % (test 0.20 % code = 2511248892) LYMPH % (test code 29.8 % = 736-9) MONO % (test code 9.8 % = 5905-5) EOS % (test code = 4.4 % 713-8) BASO % (test code 0.6 % = 706-2) GRAN MAT 4.72 10*3/uL 1.99-6.95 x10^3(ANC) (test code = 9156912829) IMM GRAN x10^3 <0.03 0-0.06 (test code = 0139241943) LYMPH x10^3 (test 2.55 10*3/uL 1.09-3.23 code = 731-0) MONO x10^3 (test 0.84 10*3/uL 0.36-1.02 code = 742-7) EOS x10^3 (test 0.38 10*3/uL 0.06-0.53 code = 711-2) BASO x10^3 (test 0.05 10*3/uL 0.01-0.09 code = 704-7) [facility]2019-08-13 23:03:00 Test Item Value Reference Range Interpretation Comments APPEARANCE (test code = Clear Clear 8223073458) COLOR (test code = Yellow Yellow 2252699205) PH (test code = 4.8-8.0 6284259243) SP GRAVITY (test code = >=1.030 1.003-1.030 6190113816) GLU U QUAL (test code = Negative Negative 1717820956) BLOOD (test code = Negative Negative 8445107538) KETONES (test code = Negative Negative 7565740624) PROTEIN (test code = Negative Negative 2887-8) UROBILIN (test code = 0.2 mg/dL See_Comment [Auto mated message] 6824739901) The system [employer] generated this result transmit luis reference range : 0-1.0 mg/dL. Th e reference range was not used to interpret this result as normal/abnormal . BILIRUBIN (test code = Negative Negative 9791416508) NITRITE (test code = Negative Negative 2158049782) LEUK GINO (test code = Negative Negative 4554804462) RBC/HPF (test code = See_Comment [Autom ated message] 7446075914) The system [employer] generated this result transmit luis reference range : 0 - 3 HPF. The refe rence range was not u sed to interpret th is result as normal/abnormal . WBC/HPF (test code = See_Comment [Autom ated message] 4061344401) The system [employer] generated this result transmit luis reference range : 0 - 5 HPF. The refe rence range was not u sed to interpret th is result as normal/abnormal . BACTERIA (test code = Few Negative A 7701757738) Lab Interpretation (test Abnormal code = 30471-0) [facility]OLIC PAN[facility] (14994)2018-12-21 22:57:00 Test Item Value Reference Range Interpretation Comments NA (test code = 145 mmol/L 135-145 0498055382) K (test code = 3.7 mmol/L 3.5-5 6713552563) CL (test code = 106 mmol/L 98-108 0144263240) CO2 TOTAL (test code = 24 mmol/L 23-31 3709409259) AGAP (test code = 2-16 2465022417) BUN (test code = 9 mg/dL 7-23 9163848496) GLUCOSE (test code = 129 mg/dL 70-110 H 5270565387) CREATININE (test code = 0.75 mg/dL 0.6-1.25 9070034885) TOTAL BILI (test code = 0.3 mg/dL 0.1-1.7 1265049910) CALCIUM (test code = 9.1 mg/dL 8.6-10.6 7952428816) T PROTEIN (test code = 7.9 g/dL 6.3-8.2 0254230926) ALBUMIN (test code = 4.5 g/dL 3.5-5 2106127719) ALK PHOS (test code = 66 U/L 34-122 0797756754) ALT(SGPT) (test code = 62 U/L 9-51 H 8255487512) AST(SGOT) (test code = 42 U/L 13-40 H 1764417089) eGFR Calculation mL/min/1.73m2 (Non-) (test code = 9248694639) eGFR Calculation mL/min/1.73m2 () (test code = 3358213422) TAMIKO (test code = TAMIKO) Association of [...] tests). Lab Interpretation Abnormal (test code = 56187-9) [facility]2019-08-13 22:57:00 Test Item Value Reference Range Interpretation Comments LIPASE (test code = 7201803814) 296 U/L 0-220 H Lab Interpretation (test code = Abnormal 59996-0) [facility]MAGNESIUM2019-08-13 22:57:00 Test Item Value Reference Range Interpretation Comments MAGNESIUM (test code = 6756648361) 1.9 mg/dL 1.7-2.4 Lab Interpretation (test code = Normal 85373-4) [facility] WITH [id number] 22:38:00 Test Item Value Reference Range Interpretation [...] RDW-SD (test code = 44.4 fL 38.5-51.6 33419-2) RDW-CV (test code = 13.3 % 12.1-15.4 788-0) PLT (test code = See_Comment [Automated 777-3) message] The sy stem which generated this result transmitted reference range : 150 - 328 10*3/ ?L. The reference r javier was not used to interpret this result as normal/abnormal . MPV (test code = 10.0 fL 9.8-13 53961-5) NRBC/100 WBC (test See_Comment [Automat ed code = 0548295841) message] The system which generated this result transmitted reference range : 0.0 - 10.0 /100 WBCs. The refer ence range was not u sed to interpret th is result as normal/abnormal . NRBC x10^3 (test code <0.01 See_Comment [Auto mated = 7597495521) message] The s ystem which generated this result transmitted reference range : 10*3/?L. The reference range was not used to interpret this result as normal/abnormal . GRAN MAT (NEUT) % 53.1 % (test code = 770-8) IMM GRAN % (test code 0.50 % = 6961195750) LYMPH % (test code = 27.1 % 736-9) MONO % (test code = 10.7 % 5905-5) EOS % (test code = 7.7 % 713-8) BASO % (test code = 0.9 % 706-2) GRAN MAT x10^3(ANC) 5.47 10*3/uL 1.99-6.95 (test code = 9357762859) IMM GRAN x10^3 (test 0.05 10*3/uL 0-0.06 code = 4982950521) LYMPH x10^3 (test code 2.79 10*3/uL 1.09-3.23 = 731-0) MONO x10^3 (test code 1.10 10*3/uL 0.36-1.02 H = 742-7) EOS x10^3 (test code = 0.79 10*3/uL 0.06-0.53 H 711-2) BASO x10^3 (test code 0.09 10*3/uL 0.01-0.09 = 704-7) Lab Interpretation Abnormal (test code = 41119-2) [facility] CampusMYOCARD IMAGING, MULTI, [id number] 14:45:00FINAL REPORT PROCEDURE: Rest/Stress MYOCARDIAL PERFUSION SPECT with treadmill\\XA9\\ CPT CODE: 98432 INDICATION: Chest pain HISTORY: Cardiac risk factors: [...] Normal extracardiac tracer distribution. 6. No previous [facility] study for comparison. NONINVASIVE RISK STRATIFICATION: The above findings are considered low risk (<1% annual mortality rate) based on the following criterion:- Normal or small myocardial perfusion defect at rest or with stress([facility]. 2012;59(9):857-81.) Signed: Ignacio Ruvalcaba MDReport Verified Date/Time: 03/17/2017 14:45:11 Reading Location: [address] Reading Room HEMOGLOBIN [id number] 08:29:00 Test Item Value Reference Range Interpretation Comments HEMOGLOBIN A1C (BEAKER) (test code = 5.5 % 4.3-6.1 368) CREATINE KINASE (CK), TOTAL AND [id number] 02:45:00 Test Item Value Reference Range Interpretation Comments CREATINE KINASE TOTAL (BEAKER) 34 U/L 29-200 (test code = 380) CREATINE KINASE-MB (BEAKER) (test 0.4 ng/mL 0.0-6.6 code = 750) CREATINE KINASE-MB INDEX (BEAKER) 1.2 % (test code = 395) CK-MB Reference Range:<6.7 Normal6.7-10.0 Borderline>10.0 AbnormalTROPONIN [id number] 02:45:00 Test Item Value Reference Range Interpretation [...] and persistent tachyarrhythmia.RAD, CHEST, 1 VIEW, NON [id number] 20:40:00Reason for exam:->chest painShould this be performed at the bedside?->YesFINAL REPORT EXAMINATION: AP PORTABLE CHEST RADIOGRAPH CLINICAL INDICATION:Chest pain IMPRESSION: Compared with 04/30/2016. No evidence of focal lung consolidation, pulmonary edema or pleural effusion. The heart size is normal. Mediastinal contours are sharp. No evidence of an acute osseous abnormality or pneumothorax. Signed: [place]gor [place] Verified Date/Time: 03/16/2017 20:40:21 Reading Location: [address] Reading Room B-TYPE NATRIURETIC FACTOR (BNP)2017-03-16 20:30:00 Test Item Value Reference Range Interpretation Comments B-TYPE NATRIURETIC PEPTIDE (BEAKER) < pg/mL 0-100 (test code = 700) COMPREHENSIVE METABOLIC [id number] 20:30:00 Test Item Value Reference Range Interpretation [...] ATED GFR. CREATINE KINASE (CK), TOTAL AND [id number] 20:28:00 Test Item Value Reference Range Interpretation Comments CREATINE KINASE TOTAL (BEAKER) 50 U/L 29-200 (test code = 380) CREATINE KINASE-MB (BEAKER) (test 0.5 ng/mL 0.0-6.6 code = 750) CREATINE KINASE-MB INDEX (BEAKER) 1.0 % (test code = 395) CK-MB Reference Range:<6.7 Normal6.7-10.0 Borderline>10.0 AbnormalTROPONIN [id number] 20:28:00 Test Item Value Reference Range Interpretation [...] failure, acidosis, acute neurological disease, and persistent tachyarrhythmia.[id number] 20:21:00 Test Item Value Reference Range Interpretation Comments MAGNESIUM (BEAKER) 2.2 mg/dL 1.6-2.6 Specimen slightly (test code = 627) hemolyzed [id number] 20:21:00 Test Item Value Reference Range Interpretation Comments PHOSPHORUS (BEAKER) 3.9 mg/dL 2.3-4.7 Specimen slightly (test code = 604) hemolyzed LIPID [id number] 20:21:00 Test Item Value Reference Range Interpretation [...] Borderline 130-159 High 160-189 Very High >=190PROTHROMBIN TIME/[id number] 20:07:00 Test Item Value Reference Range Interpretation Comments PROTIME (BEAKER) (test code = 13.0 seconds 11.7-14.7 759) INR (BEAKER) (test code = 370) 1.0 <=5.9 RECOMMENDED COUMADIN/WARFARIN INR THERAPY RANGESSTANDARD DOSE: 2.0 - 3.0 Includes: PROPHYLAXIS forvenous thrombosis, systemic embolization; TREATMENT for venous thrombosis and/or pulmonary embolus.HIGH RISK: Target INR is 2.5-3.5 for patients with mechanical heart valves.[id number] 20:07:00 Test Item Value Reference Range Interpretation Comments PARTIAL THROMBOPLASTIN TIME 26.9 seconds 22.5-36.0 (BEAKER) (test code = 760) CBC W/PLT COUNT & AUTO [id number] 19:57:00 Test Item Value Reference Range Interpretation [...]
[2021-05-27] MEDS ORDERED: MORPHINE 4 MG/ML SYR ONE (04:10)
[2021-05-27] MEDS ORDERED: ONDANSETRON 4 MG/2 ML VIAL ONE (04:10)
[2021-05-27 04:31] LABS: Absolute Lymphocytes (CBC) 2.4 K/uL (0.7-4.9); Hematocrit 42.1 % (39.6-49.0); Lymphocytes % 35.3 % (15.3-44.8); MPV 8.2 fL (7.6-11.3); Protime INR 0.95
[2021-05-27 04:38] LABS: Urine Blood Negative (Negative); Urine Glucose Negative (Negative); Urine Protein 1+ (Negative); Urine Specific Gravity >=1.030 (1.005-1.030)
[2021-05-27 04:50] LABS: ALT/SGPT 39 U/L (12-78); AST/SGOT 26 U/L (15-37); Albumin 3.3 g/dL (3.4-5.0); Alkaline Phosphatase 76 U/L (45-117); BUN Blood Urea Nitrogen 9 mg/dL (7-18); Bicarbonate 26 mmol/L (21-32); Bilirubin Direct < 0.1 mg/dL (0-0.2); Bilirubin Total 0.1 mg/dL (0.2-1.0); Creatine Phosphokinase 123 U/L (39-308); Glucose Level 117 mg/dL (74-106); Lipase 87 U/L (73-393); Magnesium 1.7 mg/dL (1.8-2.4); NT PRO-BNP 23 pg/mL (<125); Potassium 3.3 mmol/L (3.5-5.1); Protein, Total 7.1 g/dL (6.4-8.2); Sodium Level 142 mmol/L (136-145)
[2021-05-27 05:01] LABS: Barbiturates NEGATIVE (NEGATIVE); Benzodiazepines POSITIVE (NEGATIVE); Cocaine NEGATIVE (NEGATIVE); METHAMPHETAM NEGATIVE (NEGATIVE); Methadone NEGATIVE (NEGATIVE); Opiates NEGATIVE (NEGATIVE); Phencyclidine NEGATIVE (NEGATIVE); THC Cannibis NEGATIVE (NEGATIVE)
[2021-05-27 05:15] LABS: SARS-COV-2 RT PCR NEGATIVE (NEGATIVE)
[2021-05-27] MEDS ORDERED: LORazepam 2 MG/ML VIAL ONE (05:19)
[2021-05-27] MEDS ORDERED: KETOROLAC 30 MG/ML INJ ONE (06:46)
[2021-05-27] MEDS ORDERED: NA CHLORIDE 0.9% 1,000 ML ONE (06:51)
--- NOTE | 2021-05-27 06:55 | ER ---
Nurse's Notes [facility] Name: Srini Simpson Age: 35 yrs Sex: Male : 1985 Arrival Date: 05/27/2021 Time: 03:38 Bed 14 Private MD: Diagnosis: Chest pain, unspecified;Alcohol use, unspecified with alcohol-induced anxiety disorder Presentation: 05/27 03:43 Chief complaint: Patient states: I have a pain in my chest and its hard to breathe. kd3 started 30 minutes ago. Coronavirus screen: Vaccine status: Patient reports receiving the 2nd dose of the covid vaccine. Ebola Screen: No symptoms or risks identified at this time. Initial Sepsis Screen: Does the patient meet any 2 criteria? No. Patient's initial sepsis screen is negative. Does the patient have a suspected source of infection? No. Patient's initial sepsis screen is negative. Risk Assessment: Do you want to hurt yourself or someone else? Patient reports no desire to harm self or others. Onset of symptoms was May 27, 2021. 03:43 Method Of Arrival: Wheelchair kd3 03:43 Acuity: CHRISTINE 3 kd3 Triage Assessment: 03:46 General: Appears distressed, uncomfortable, Behavior is calm, cooperative, appropriate kd3 for age. General: Behavior is anxious. Pain: Complains of pain in anterior aspect of left upper chest. Cardiovascular: Patient's skin is warm and dry. Respiratory: Reports shortness of breath Airway is patent Respiratory effort is labored. GI: No deficits noted. Historical: - Allergies: 03:46 No Known Allergies; kd3 - Home Meds: 03:46 Klonopin 1 mg Oral tab every 6 hours [Active]; lisinopril 10 mg Oral tab 1 tab once kd3 daily [Active]; metoprolol tartrate 50 mg Oral tab 1 tab 2 times per day [Active]; - PMHx: 03:46 Anxiety; Depression; ETOH/drug abuse; Hypertension; Pyloric Stenosis; kd3 - PSHx: 03:46 None; kd3 - Immunization history:: Adult Immunizations up to date, Client reports receiving the 2nd dose of the Covid vaccine. - Social history:: Smoking status: Reported history of juuling and/or vaping. Screenin:48 Abuse screen: Denies threats or abuse. Denies injuries from another. Nutritional kd3 screening: No deficits noted. Tuberculosis screening: No symptoms or risk factors identified. Fall Risk None identified. Assessment: 04:05 Also complains of diaphoresis, nausea, shortness of breath. General: Appears in no vc1 apparent distress. uncomfortable, obese, Behavior is anxious. Pain: Complains of pain in anterior aspect of left upper chest Pain radiates to left sternocleidomastoid Pain currently is 9 out of 10 on a pain scale. Quality of pain is described as pressure, Pain began suddenly. Neuro: No deficits noted. Cardiovascular: No deficits noted. Respiratory: Reports shortness of breath at rest. 04:51 Reassessment: Patient and/or family updated on plan of care and expected duration. Pain vc1 level reassessed. Patient is alert, oriented x 3, equal unlabored respirations, skin warm/dry/pink. Patient states symptoms have not improved. 06:14 Reassessment: Patient and/or family updated on plan of care and expected duration. Pain vc1 level reassessed. Patient is alert, oriented x 3, equal unlabored respirations, skin warm/dry/pink. Patient states symptoms have not improved. General: Appears uncomfortable, Behavior is anxious, inappropriate for age. Neuro: Level of Consciousness is alert. Neuro: Level of Consciousness is alert, obeys commands, Oriented to person, place, time, situation, Appropriate for age. 07:54 General: Appears in no apparent distress. Behavior is anxious. Neuro: Level of ww Consciousness is awake, alert, obeys commands, Oriented to person, place, time, situation, Speech is normal. Cardiovascular: Capillary refill < 3 seconds Patient's skin is warm and dry. Rhythm is regular. Respiratory: Airway is patent Respiratory effort is even, unlabored, Respiratory pattern is regular, symmetrical. GI: No signs and/or symptoms were reported involving the gastrointestinal system. Derm: Skin is intact, Skin is pink, warm \\T\\ dry. 09:09 Reassessment: IVF CONCLUDED. PT D/C HOME AMBULATORY, DX WITH NON-SPECIFIC CHEST PAIN bp AND ALCOHOL ABUSE. Vital Signs: 03:43 BP 139 / 87; Pulse 99; Resp 21; Pulse Ox 99% ; Weight 99.79 kg; Height 5 ft. 7 in. kd3 (170.18 cm); Pain 8/10; 03:48 Temp 99.1; kd3 05:00 BP 127 / 67; Pulse 84; Resp 19; Pulse Ox 96% on R/A; vc1 06:00 BP 120 / 76; Pulse 86; Resp 14; Pulse Ox 96% on R/A; vc1 06:56 BP 123 / 82; Pulse 89; Resp 16; Pulse Ox 96% on R/A; vc1 07:54 BP 124 / 77; Pulse 95; Resp 17; Pulse Ox 97% on R/A; ww 09:09 BP 145 / 80; Pulse 85; Resp 12; Pulse Ox 98% ; bp 03:43 Body Mass Index 34.46 (99.79 kg, 170.18 cm) kd3 Hillary Coma Score: 07:54 Eye Response: spontaneous(4). Verbal Response: oriented(5). Motor Response: obeys ww commands(6). Total: 15. ED Course: 03:38 Patient arrived in ED. wm 03:46 Triage completed. kd3 03:46 Arm band placed on left wrist. kd3 03:48 Patient has correct armband on for positive identification. kd3 03:50 radiation monitor on. Pulse ox on. NIBP on. vc1 03:56 Roque Husain MD is Attending Physician. 7 03:58 Linda Joshua, ALTON is Primary Nurse. vc1 04:51 XRAY Chest (1 view) In Process Unspecified. EDMS 05:15 COVID-19/FLU A+B (Document "Date of Onset" if Symptomatic) Sent. vc1 05:25 Notified ED physician of a critical lab result(s). D-Dimer 508. lp1 06:03 CT Chest For PE Angio In Process Unspecified. EDMS 06:41 Basic Metabolic Panel Sent. vc1 07:54 No provider procedures requiring assistance completed. Patient maintains SpO2 ww saturation greater than 95% on room air. 09:10 IV discontinued, intact, bleeding controlled, No redness/swelling at site. Pressure bp dressing applied. Administered Medications: 04:20 Drug: morphine 4 mg Route: IVP; Site: left forearm; vc1 05:22 Follow up: Response: No adverse reaction vc1 04:20 Drug: Zofran (Ondansetron) 4 mg Route: IVP; Site: left forearm; vc1 05:22 Follow up: Response: No adverse reaction vc1 05:22 Drug: Ativan (LORazepam) 1 mg Route: IVP; Site: left forearm; vc1 06:06 Follow up: Response: No adverse reaction vc1 06:53 Drug: Ketorolac 30 mg Route: IVP; Site: right forearm; vc1 06:59 Follow up: Response: No adverse reaction vc1 06:53 Drug: NS 0.9% 1000 ml Route: IV; Rate: 1000 ml; Site: left forearm; vc1 05/28 04:53 Follow up: Response: No adverse reaction; IV Status: Infusion continued; IV Intake: vc1 800ml Intake: 04:53 IV: 800ml; Total: 800ml. vc1 Outcome: 05/27 06:54 Discharge ordered by MD. chacon 09:10 Discharged to home ambulatory. bp 09:10 Condition: stable 09:10 Discharge instructions given to patient, Instructed on discharge instructions, follow up and referral plans. Demonstrated understanding of instructions, follow-up care. 09:11 Patient left the ED. bp Signatures: Dispatcher [employer] EDMS Naima Renee RN RN lp1 Igor Mariscal RN RN Roque Lewis MD MD mhSteffanie Clifford Kyli, RN RN kd3 Marla Alexander RN ALTON ww Linda Joshua RN RN vc1
--- NOTE | 2021-05-27 06:55 | EDPHYS ---
Physician Documentation [facility] Name: Srini Simpson Age: 35 yrs Sex: Male : 1985 Arrival Date: 05/27/2021 Time: 03:38 Bed 14 Private MD: ED Physician Roque Husain HPI: 05/27 04:13 This 35 yrs old Male presents to ER via Wheelchair with complaints of Chest Pain > 30 mh7 y/o - Left side. 04:13 The patient or guardian reports chest pain that is located primarily in the anterior mh7 chest wall, left. 04:13 The pain does not radiate. Associated signs and symptoms: Pertinent positives: mh7 shortness of breath, Pertinent negatives: abdominal pain, cough, diaphoresis, dizziness, headache, lower extremity pain, lower extremity swelling, lightheadedness, nausea, near syncope, palpitations, recent travel, syncope, vomiting. The chest pain is described as sharp. Duration: The patient or guardian reports a single episode, that is still ongoing, and unchanged. Modifying factors: The symptoms are alleviated by nothing. the symptoms are aggravated by nothing. Severity of pain: At its worst the pain was moderate today, in the emergency department the pain is unchanged. Historical: - Allergies: 03:46 No Known Allergies; kd3 - Home Meds: 03:46 Klonopin 1 mg Oral tab every 6 hours [Active]; lisinopril 10 mg Oral tab 1 tab once kd3 daily [Active]; metoprolol tartrate 50 mg Oral tab 1 tab 2 times per day [Active]; - PMHx: 03:46 Anxiety; Depression; ETOH/drug abuse; Hypertension; Pyloric Stenosis; kd3 - PSHx: 03:46 None; kd3 - Immunization history:: Adult Immunizations up to date, Client reports receiving the 2nd dose of the Covid vaccine. - Social history:: Smoking status: Reported history of juuling and/or vaping. ROS: 04:13 Constitutional: Negative for fever, chills, and weight loss, Eyes: Negative for injury, mh7 pain, redness, and discharge, ENT: Negative for injury, pain, and discharge, Neck: Negative for injury, pain, and swelling, Abdomen/GI: Negative for abdominal pain, nausea, vomiting, diarrhea, and constipation, Back: Negative for injury and pain, : Negative for injury, bleeding, discharge, and swelling, MS/Extremity: Negative for injury and deformity, Skin: Negative for injury, rash, and discoloration, Neuro: Negative for headache, weakness, numbness, tingling, and seizure, Psych: Negative for depression, anxiety, suicide ideation, homicidal ideation, and hallucinations, Allergy/Immunology: Negative for hives, rash, and allergies, Endocrine: Negative for neck swelling, polydipsia, polyuria, polyphagia, and marked weight changes, Hematologic/Lymphatic: Negative for swollen nodes, abnormal bleeding, and unusual bruising. Exam: 04:13 Head/Face: Normocephalic, atraumatic. Eyes: Pupils equal round and reactive to light, mh7 extra-ocular motions intact. Lids and lashes normal. Conjunctiva and sclera are non-icteric and not injected. Cornea within normal limits. Periorbital areas with no swelling, redness, or edema. Neck: Trachea midline, no thyromegaly or masses palpated, and no cervical lymphadenopathy. Supple, full range of motion without nuchal rigidity, or vertebral point tenderness. No Meningismus. Chest/axilla: Normal chest wall appearance and motion. Nontender with no deformity. No lesions are appreciated. Cardiovascular: Regular rate and rhythm with a normal S1 and S2. No gallops, murmurs, or rubs. Normal PMI, no JVD. No pulse deficits. Respiratory: Lungs have equal breath sounds bilaterally, clear to auscultation and percussion. No rales, rhonchi or wheezes noted. No increased work of breathing, no retractions or nasal flaring. Abdomen/GI: Soft, non-tender, with normal bowel sounds. No distension or tympany. No guarding or rebound. No evidence of tenderness throughout. Back: No spinal tenderness. No costovertebral tenderness. Full range of motion. Skin: Warm, dry with normal turgor. Normal color with no rashes, no lesions, and no evidence of cellulitis. MS/ Extremity: Pulses equal, no cyanosis. Neurovascular intact. Full, normal range of motion. Neuro: Awake and alert, GCS 15, oriented to person, place, time, and situation. Cranial nerves II-XII grossly intact. Motor strength 5/5 in all extremities. Sensory grossly intact. Cerebellar exam normal. Normal gait. 04:13 Constitutional: The patient appears in no acute distress, alert, awake, anxious, uncomfortable. 04:13 Psych: Behavior/mood is anxious, Oriented to person, place, time, Patient has no thoughts/intents to harm self or others. Judgement / Insight is normal. Memory is normal. Delusions/hallucinations are not present. Vital Signs: 03:43 BP 139 / 87; Pulse 99; Resp 21; Pulse Ox 99% ; Weight 99.79 kg; Height 5 ft. 7 in. kd3 (170.18 cm); Pain 8/10; 03:48 Temp 99.1; kd3 05:00 BP 127 / 67; Pulse 84; Resp 19; Pulse Ox 96% on R/A; vc1 06:00 BP 120 / 76; Pulse 86; Resp 14; Pulse Ox 96% on R/A; vc1 06:56 BP 123 / 82; Pulse 89; Resp 16; Pulse Ox 96% on R/A; vc1 07:54 BP 124 / 77; Pulse 95; Resp 17; Pulse Ox 97% on R/A; ww 09:09 BP 145 / 80; Pulse 85; Resp 12; Pulse Ox 98% ; bp 03:43 Body Mass Index 34.46 (99.79 kg, 170.18 cm) kd3 [place] Coma Score: 07:54 Eye Response: spontaneous(4). Verbal Response: oriented(5). Motor Response: obeys ww commands(6). Total: 15. MDM: 06:51 Differential diagnosis: acute myocardial infarction, acute pericarditis, anxiety, mh7 coronary artery disease chest wall pain, congestive heart failure costochondritis, esophagitis, gastritis, gastroesophageal reflux disease (GERD), pneumonia, pneumothorax, pulmonary embolus. HEART Score: History: Slightly Suspicious (0), ECG: Normal (0), Age: < or = 45 years (0), Risk Factors: 1 or 2 risk factors (1), [Hypertension] Troponin: < or = 1 x Normal Limit (0), Total Score = 1. Data reviewed: vital signs, nurses notes, old medical records, lab test result(s), cardiac enzymes, CBC, drug level(s), alcohol, electrolytes, urine drug screen, EKG, radiologic studies, CT scan, plain films. Data interpreted: Pulse oximetry: on room air is 96 %. Interpretation: normal. Counseling: I had a detailed discussion with the patient and/or guardian regarding: the historical points, exam findings, and any diagnostic results supporting the discharge/admit diagnosis, lab results, radiology results, the need for outpatient follow up, to return to the emergency department if symptoms worsen or persist or if there are any questions or concerns that arise at home. Response to treatment: the patient's symptoms have resolved after treatment, the patient's blood pressure is in an acceptable range, mental status has returned to baseline, the patient no longer shows bradycardia, the patient is not short of breath, the patient is not tachycardic, the patient's pain is gone, the patient's temperature has normalized. 06:54 Patient medically screened. 05/27 04:06 Order name: Basic Metabolic Panel 05/27 04:06 Order name: CBC with Diff; Complete Time: 05:12 05/27 04:06 Order name: LFT's; Complete Time: 05:12 05/27 04:06 Order name: Magnesium; Complete Time: 05:12 05/27 04:06 Order name: NT PRO-BNP; Complete Time: 05:12 05/27 04:06 Order name: PT-INR; Complete Time: 05:28 05/27 04:06 Order name: Troponin HS; Complete Time: 05:12 05/27 04:07 Order name: CPK; Complete Time: 05:12 05/27 04:07 Order name: Basic Metabolic Panel; Complete Time: 05:12 EDMS 05/27 04:08 Order name: ETOH Level; Complete Time: 05:12 05/27 04:08 Order name: UDS; Complete Time: 05:12 05/27 04:09 Order name: COVID-19/FLU A+B (Document "Date of Onset" if Symptomatic) 05/27 04:09 Order name: COVID-19/FLU A+B; Complete Time: 05:17 EDMS 05/27 04:06 Order name: XRAY Chest (1 view) 05/27 04:06 Order name: EKG; Complete Time: 04:08 05/27 04:06 Order name: Cardiac monitoring; Complete Time: 04:20 05/27 04:06 Order name: EKG - Nurse/Tech; Complete Time: 04:20 [facility] 05/27 04:06 Order name: IV Saline Lock; Complete Time: 04:20 [facility] 05/27 04:06 Order name: Labs collected and sent; Complete Time: 04:20 [facility] 05/27 04:26 Order name: Lipase; Complete Time: 05:12 EDMS 05/27 04:37 Order name: Urine Dipstick-Ancillary; Complete Time: 05:12 EDMS 05/27 05:16 Order name: D-Dimer; Complete Time: 05:28 EDMS 05/27 05:28 Order name: CT Chest For PE Angio [facility] 05/27 04:06 Order name: O2 Per Protocol; Complete Time: 04:21 [facility] 05/27 04:06 Order name: O2 Sat Monitoring; Complete Time: 04:21 Administered Medications: 04:20 Drug: morphine 4 mg Route: IVP; Site: left forearm; vc1 05:22 Follow up: Response: No adverse reaction vc1 04:20 Drug: Zofran (Ondansetron) 4 mg Route: IVP; Site: left forearm; vc1 05:22 Follow up: Response: No adverse reaction vc1 05:22 Drug: Ativan (LORazepam) 1 mg Route: IVP; Site: left forearm; vc1 06:06 Follow up: Response: No adverse reaction vc1 06:53 Drug: Ketorolac 30 mg Route: IVP; Site: right forearm; vc1 06:59 Follow up: Response: No adverse reaction vc1 06:53 Drug: NS 0.9% 1000 ml Route: IV; Rate: 1000 ml; Site: left forearm; vc1 05/28 04:53 Follow up: Response: No adverse reaction; IV Status: Infusion continued; IV Intake: vc1 800ml Disposition Summary: 05/27/21 06:54 Discharge Ordered Location: Home [facility] Problem: an acute exacerbation [facility] Symptoms: have improved [facility] Condition: Stable [facility] Diagnosis - Chest pain, unspecified 7 - Alcohol use, unspecified with alcohol-induced anxiety disorder [facility] Followup: [facility] - With: Private Physician - When: 1 - 2 days - Reason: Worsening of condition, Recheck today's complaints, Continuance of care, Re-evaluation by your physician Discharge Instructions: - Discharge Summary Sheet [facility] - Alcohol Use Disorder [facility] - Nonspecific Chest Pain, Adult, Poyk-rh-Abid [facility] Forms: - Medication Reconciliation Form [facility] - Thank You Letter 7 - Antibiotic Education [facility] - Prescription Opioid Use [facility] Signatures: Dispatcher [employer] EDMS Roque Husain MD MD 7 Kusum Pierre RN RN kd3 Linda Joshua RN RN vc1 Corrections: (The following items were deleted from the chart) 05/27 04:26 04:17 LIPASE+C.LAB.BRZ ordered. EDMS EDMS 05:15 05:14 D-DIMER+COAG.LAB.BRZ ordered. EDMS EDMS
--- NOTE | 2021-05-27 07:51 | RAD REPORT ---
EXAM DESCRIPTION: RAD - Chest Single View - 05/27/2021 4:51 am CLINICAL HISTORY: CHEST PAIN COMPARISON: Chest Single View dated 01/18/2021; Chest Single View dated 09/19/2020; Chest Single View dated 09/02/2020; Chest Single View dated 08/12/2020 FINDINGS: Lines: None. Lungs: No evidence of edema or pneumonia. Pleural: No significant pleural effusions or pneumothorax. Cardiac: The heart size is within normal limits. Bones: No acute fractures. Other: IMPRESSION: No acute cardiopulmonary disease.
[2021-05-27 09:20] VITALS: TEMP 99.1
[2021-05-27 09:31] VITALS: BP 145/80; O2SAT 98
--- NOTE | 2021-05-27 11:52 | RAD REPORT ---
EXAM DESCRIPTION: CT - Chest For Pe Angio - 05/27/2021 6:44 am CLINICAL HISTORY: Chest pain;SOB COMPARISON: 07/10/2020 TECHNIQUE: CTA of the chest obtained following the uncomplicated intravenous administration of iodin ated contrast. 3-D/MIP reformatted images of the chest available for evaluation. This exam was perfor med according to our departmental dose-optimization program, which includes automated exposure contro l, adjustment of the mA and/or kV according to patient size and/or use of iterative reconstruction [place]. FINDINGS: Chest: Pulmonary arteries: Contrast bolus is adequate.No filling defects identified in the pulmonary arterie s to suggest pulmonary embolus. Thyroid: No abnormalities of the visualized thyroid. Great Vessels: Great vessels have normal anatomic configuration. Thoracic Aorta: Atherosclerotic calcification of thoracic aorta. Heart: No cardiomegaly, significant pericardial effusion, or coronary artery atherosclerosis Lymph Nodes: No enlarged mediastinal lymph nodes identified. Esophagus: No abnormalities of the esophagus identified. Other: No additional findings. Lungs: No airspace opacities identified. Pleura: No pleural effusion or pneumothorax. Trachea/Airways: No abnormalities of the visualized trachea or airways. Bones: Mild degenerative endplate spondylosis. Upper Abdomen: Limited images of the upper abdomen demonstrate no definite abnormalities of visualize d portions of the liver or spleen. IMPRESSION: 1. No pulmonary embolism. 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 The interpreting r adiologist is fully responsible for the content of the report.
--- NOTE | 2021-05-29 07:32 | EKG ---
Test Date: 2021-05-27 Test Time: 03:59:29 Orientation And Mobility Instructor: LISA MEASUREMENT RESULTS: Intervals: Rate: 96 RI: 126 QRSD: 86 QT: 348 QTc: 439 [place]: P: 58 RI: 126 QRS: 62 T: 38 INTERPRETIVE STATEMENTS: Normal sinus rhythm Normal ECG Compared to ECG 09/19/2020 05:37:20 Sinus tachycardia no longer present Electronically Signed On 05-29-21 07:26:42 WEED CONTROLLER by Austin Martinez
== END 2021-05-27 09:11 | disposition home or self-care (01) ==
LOC: ER 03:35
DX: F10.980 Alcohol use, unspecified with alcohol-induced anxiety disorder (principal); I10 Essential (primary) hypertension; F32.A Depression, unspecified; Z20.822 Contact with and (suspected) exposure to COVID-19
CPT/HCPCS: 0240U; 36415; 71045; 71275; 80048; 80076; 80307; 80320; 81003; 82550; 83690; 83735; 83880; 84484; 85025; 85379; 85610; 93005; 99285; J2405; J7030; Q9967

== ENCOUNTER 2021-06-01 14:30 | Inpatient (IN) | payer SELFPAY ==
--- OUTSIDE RECORDS SUMMARY | 2021-06-01 14:40 | XMS REPORT | Continuity of Care Document ---
:1985 Author Organization [facility] t Address [address] [place] [place] [address] Care Team Providers Name Role Phone Mraly BELTRÁN, Maame Primary Care Physician Unavailable SHABBIR Attending Clinician Unavailable Shabbir BELTRÁN Attending Clinician Doctor Unassigned, Name Attending Clinician Unavailable KRISTINA Attending Clinician Unavailable Margarita Marroquin Attending Clinician John BELTRÁN Attending Clinician Kristina BELTRÁN Attending Clinician Deion SEYMOUR Attending Clinician Unavailable Deion Seymour DO Attending Clinician Singer LAW Attending Clinician Jeff Attending Clinician Denis LAW Attending Clinician Joseph Fontanez MD Attending Clinician Jayes MD, C Attending Clinician Fatimah BELTRÁN S Attending Clinician Ray JENKINS Attending Clinician Unavailable Clinic, Neurology Continuity Attending Clinician UnavailLindsey DAVENPORT Attending Clinician Alejandro Attending Clinician Unavailable JEREMIAH Attending Clinician Unavailable Kem Herrera Attending Clinician Jeremiah DAVENPORT Attending Clinician Joseph GARCIA Attending Clinician Unavailable SHABBIR Admitting Clinician Unavailable JOHN Admitting Clinician Unavailable John BELTRÁN Admitting Clinician Deion SEYMOUR Admitting Clinician Unavailable Denis LAW Admitting Clinician ASHLIE Admitting Clinician Unavailable JEREMIAH Admitting Clinician Unavailable oJseph GARCIA Admitting Clinician Unavailable Payers Payer Name Policy Type Policy Number Effective Date Expiration Date [facility] [id number] ASSISTED 00:00:00 Problems Condition Condition Condition Status Onset Resolution Last Treating Co mments Source Name Details Category Date Date Treatment Clinician Date Anxiety Anxiety Disease Active 2020-05 Univers 2-26 ity of 00:00: [address] Cigarette Cigarette Disease Active 2020-05 Uni vers smoker smoker 2-26 ity of 00:00: [address] Elevated Elevated Disease Active 2020-05 Unive rs brain brain 2-26 ity of natriureti natriureti [place] c peptide c peptide 00 Medi kofi (BNP) (BNP) Branch level level Withdrawal Withdrawal Disease Active U nivers symptoms, symptoms, 6-16 ity of alcohol, alcohol, 00:00: [place] uncomplica uncomplica 00 Me dical luis luis Branch Obesity Obesity Disease Active Univers (BMI (BMI 6-16 ity of 30-39.9) 30-39.9) 00:00: [address] Alcohol Alcohol Disease Active [facility] dependence dependence 01-28 with with 00:00: Hosp[facility] uncomplica uncomplica 00 l luis luis withdrawal withdrawal Suicide Suicide Disease Active [facility] attempt by attempt by 01-28 alcohol alcohol 00:00: Hospita poisoning poisoning 00 l 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 9-20 st pine use pine use 00:00: Hospit a disorder disorder 00 l ЕЛЕНА ЕЛЕНА Disease Active Methodi (generaliz (generaliz 01-28 st ed anxiety ed anxiety 00:00: Ho spita disorder) disorder) 00 l Essential Essential Disease Active Uni vers hypertensi hypertensi - it y of on on 00:00: [place] [id number] Medical [place] Family Family Disease Active Univers history of history of 11-09 it y of early CAD early CAD [place] [facility] Family Family Disease Active Univers history of history of 11-09 it y of early CAD early CAD 00:[place] [facility] Chest pain Chest pain Disease Active U nivers 11-08 ity of 00:00: [address] Chest pain Chest pain Disease Active [...] Active Univers ALLERGIE Class ity of S [facility] Family History Family Member Diagnosis Comments Start Date Stop Date Source Maternal uncle Depression [facility] Maternal uncle Suicide Attempts Meth [facility] Maternal uncle Alcohol abuse [facility] Natural mother Alcohol abuse [facility] Paternal grandfather Heart attack [facility] Natural father [facility] Maternal aunt [facility] Social History Social Habit Start Date Stop Date Quantity Comments Source History of tobacco 1995-01-27 Cigarette smoker [facility] use 00:00:00 (finding) Hospital History SDOH University o f Alcohol Frequency [place] M edical Branch History SDOH University o f Alcohol Std Drinks [facility] History SDOH University o f Alcohol Comment [place] Med ical Branch Exposure to Not sure University of SARS-CoV-2 (event) [facility] Alcohol intake 2021-05-05 2021-05-05 Current drinker Unive rsity of 00:00:00 00:00:00 of alcohol [place] Medical (finding) Branch Education 2021-05-05 2021-05-05 13 University of 00:00:00 00:00:00 [facility] Cigarette 2020-01-28 2020-01-28 [facility] pack-years 00:00:00 00:00:00 Hospital History SDOH 2018-11-09 2018-11-09 5 University o f Alcohol Binge 00:00:00 00:00:00 [place] [facility] Branch Cigarettes smoked 2018-11-08 2018-11-08 Univers ity of current (pack per 00:00:00 00:00:00 [facility] ) - Reported Branch Tobacco use and 2018-11-08 2018-11-08 Current user Univers ity of exposure 00:00:00 00:00:00 [facility] Sex [birth year] Universit y of 00:00:00 00:00:00 [facility] Smoking Status Start Date Stop Date Source Current every day smoker 2018-11-08 00:00:00 Uni versity of [facility] Medications Ordered Filled Start Stop Current Ordering Indication Dosage Frequency Signature Comments Components Source Medication Medication Date Date Medication? Clinician (SIG) Name Name hydroCHLORO Yes [id number] 25mg Take 1 Univers thiazide 25 1-17 tablet by ity of mg tablet 00:00: mouth [place] 00 every Medical morning. Branch lisinopriL 2020-05 Yes 5mg Take 5 mg Un jaqueline 5 mg tablet 2-28 by mouth 2 it y of 00:45: (two) [place] 01 times Medical daily. Branch Last dose given in ED lisinopriL 2020-05 Yes 5mg Take 5 mg Un jaqueline 5 mg tablet 2-28 by mouth 2 it y of 00:45: (two) [place] times Medical daily. Branch Last dose given in ED atorvastati 2020-05 Yes 20mg 20 mg, Univ ers n (LIPITOR) 2-27 Oral, QHS, it y of tablet 20 03:00: [place] dose [place] mg 00 on [facility] 05/05/21 Branch at 2100, Until Discontinu ed, Routine aspirin 81 2020-05- Yes [id number] 81mg Take 1 Univers mg chewable 2-27 - tablet by it y of tablet 00:00: 05:59 mouth [place] 00 :00 daily with Medical breakfast Branch for 30 days. aspirin 81 2020-05- Yes [id number] 81mg Take 1 Univers mg chewable 2-27 -27 tablet by it y of tablet 00:00: 05:59 mouth [place] 00 :00 daily with Medical breakfast Branch for 30 days. aspirin 81 2020-05- Yes [id number] 81mg Take 1 Univers mg chewable 07-07 tablet by it y of tablet 00:00: 05:59 mouth [place] 00 :00 daily with Medical breakfast Branch for 30 days. enoxaparin 2020-05 Yes 30mg 30 mg, Unive rs (LOVENOX) 07-06 Subcutaneo ity of injection 23:00: [place], DAILY, [place] 30 mg 00 First dose Medical on [place] [facility] 05/05/21 at 1700, Until Discontinu ed, Routine magnesium 2020-05 No 4g 4 g, IV Univ ers sulfate in 07-06 Piggyback, it y of water 4 16:00: 15:35 ONCE, 1 [place] gram/50 mL 00 :00 dose, On Medic al (8 %) IV [place] Branch Piggyback 4 05/05/21 g at 1000, Routine pantoprazol 2020-05 Yes 40mg 40 mg, Univ ers e 07-06 Oral, ity of (PROTONIX) 15:00: DAILY, [place] EC tablet 00 First dose Medi kofi 40 mg on [place] Branch 05/05/21 at 0900, Until Discontinu ed, Routine aspirin 2020-05 Yes 81mg 81 mg, Univers chewable 07-06 Oral, QAM ity of tablet 81 14:00: WITH [place] mg 00 BREAKFAST, Medical First dose Branch on 05/05/21 at 0800, Until Discontinu ed, Routine lisinopriL 2020-05 Yes 10mg 10 mg, Unive rs (PRINIVIL,Z 07-06 Oral, BID, it y of ESTRIL) 14:00: [place] tablet 10 00 (after Medical mg last Branch modificati on) on 05/05/21 at 0800, Until Discontinu ed, Routine metoprolol 2020-05 Yes 50mg 50 mg, Unive rs tartrate 07-06 Oral, BID, ity o f (LOPRESSOR) 14:00: First dose [place] tablet 50 00 on Sun Medical mg 05/05/21 Branch at 0800, Until Discontinu ed, Routine docusate 2020-05 Yes 100mg 100 mg, Unive rs (COLACE) 07-06 Oral, BID, ity o f capsule 100 14:00: First dose [place] mg 00 on [facility] 05/05/21 Branch at 0800, Until Discontinu ed, Routine lisinopriL 2020-05 Yes 5mg Take 5 mg Un jaqueline 5 mg tablet 07-06 by mouth 2 it y of 12:45: (two) [place] 29 times Medical daily. Branch Last dose given in ED clonazePAM 2020-05 Yes 2mg 2 mg, Univer s (KLONOPIN) 07-06 Oral, ity of tablet 2 mg 12:28: BIDPRN, [place] as 22 Starting Medical on [facility] 05/05/21 at 0628, Until Discontinu ed, anxiety, insomnia ondansetron 2020-05 Yes 4mg 4 mg, Slow Univers (ZOFRAN 07-06 IV Push, ity of (PF)) 08:29: Q6HPRN, [place] injection 4 21 Starting Medi kofi mg on [facility] 05/05/21 at 0229, Until Discontinu ed, Routine, Nausea and Vomiting (N/V) lisinopriL 2020-05- No 10mg 10 mg, Univ ers (PRINIVIL,Z 07-06 Oral, ity of ESTRIL) 07:00: 05:55 ONCE, 1 [place] tablet 10 00 :00 dose, On Medica l mg [facility] 05/05/21 at 0100, Routine ketorolac 2020-05- No [...] mg 00 :00 dose, On Medical Sat [place] 05/04/21 at 2045, STAT atorvastati 2020-05- Yes [id number] 20mg Take 1 Univers n 20 mg 07-06 01-16 tablet by ity of tablet 00:00: 05:59 mouth at [place] 00 :00 bedtime Medical for 20 Branch days. FENTanyl PF 2020-05- No 50ug 50 mcg, Un jaqueline (SUBLIMAZE 05-31 Intramuscu it y of (PF)) 15:45: 14:44 lar, ONCE, [place] injection 00 :00 1 dose, On Medi kofi 50 mcg [place] Branch 03/31/21 at 0945, Routine moxifloxaci 2020-05- No [id number] 400mg Take 1 Univers n 400 mg 0-11 22 tablet by ity o f tablet 00:00: 04:59 mouth [place] 00 :00 daily for Medical 10 days. Branch chlorphenir Yes [id number] 4mg Take 1 Univers amine 4 mg 9-16 tablet by ity of tablet 00:00: mouth [place] 00 every 6 Medical (six) Branch hours as needed for Allergies or Runny nose. calcium/mag Yes [id number] 1{each} Take 1 Univers nesium/zinc 9-16 Each by ity o f (CALCIUM-MA 00:00: mouth [place] GNESUIUM-ZI 00 daily. Medica l NC) Branch 333-133-5 mg Tab benzonatate 0 Yes [id number] 100mg Take 1 Univers 100 mg 9-16 capsule by ity of capsule 00:00: mouth 3 [place] 00 (three) Medical times Branch daily as needed for Cough. ondansetron Yes [id number] 4mg Take 1 Univers 4 mg 9-16 tablet by ity of disintegrat 00:00: mouth [place] ing tablet 00 every 8 Medica l (eight) Branch hours as needed for Nausea and Vomiting (N/V). chlorphenir Yes [id number] 4mg Take 1 Univers amine 4 mg 9-16 tablet by ity of tablet 00:00: mouth [place] 00 every 6 Medical (six) Branch hours as needed for Allergies or Runny nose. calcium/mag 2020-0 Yes [id number] 1{each} Take 1 Univers nesium/zinc 9-16 Each by ity o f (CALCIUM-MA 00:00: mouth [place] GNESUIUM-ZI 00 daily. Medica l NC) Branch 333-133-5 mg Tab benzonatate 2020-0 Yes [id number] 100mg Take 1 Univers 100 mg 9-16 capsule by ity of capsule 00:00: mouth 3 [place] 00 (three) Medical times Branch daily as needed for Cough. ondansetron 2020-0 Yes [id number] 4mg Take 1 Univers 4 mg 9-16 tablet by ity of disintegrat 00:00: mouth [place] ing tablet 00 every 8 Medica l (eight) Branch hours as needed for Nausea and Vomiting (N/V). chlorphenir 202-0 Yes [id number] 4mg Take 1 Univers amine 4 mg 9-16 tablet by ity of tablet 00:00: mouth [place] 00 every 6 Medical (six) Branch hours as needed for Allergies or Runny nose. calcium/mag 2021-0 Yes [id number] 1{each} Take 1 Univers nesium/zinc 9-16 Each by ity o f (CALCIUM-MA 00:00: mouth [place] GNESUIUM-ZI 00 daily. Medica l NC) Branch 333-133-5 mg Tab benzonatate 2020-0 Yes [id number] 100mg Take 1 Univers 100 mg 9-16 capsule by ity of capsule 00:00: mouth 3 [place] 00 (three) Medical times Branch daily as needed for Cough. ondansetron 2020-0 Yes [id number] 4mg Take 1 Univers 4 mg 9-16 tablet by ity of disintegrat 00:00: mouth [place] ing tablet 00 every 8 Medica l (eight) Branch hours as needed for Nausea and Vomiting (N/V). azithromyci 2020-0 Yes [id number] 250mg Take 1 Univers n 9-16 tablet by ity of (ZITHROMAX 00:00: mouth [place] Z-REFUGIO) 250 00 SEE-INSTRU Med ical mg tablet CTIONS. Branch Take 500 mg day 1, then 250 mg days 2 to 5. chlorphenir 1-0 Yes [id number] 4mg Take 1 Univers amine 4 mg 9-16 tablet by ity of tablet 00:00: mouth [place] 00 every 6 Medical (six) Branch hours as needed for Allergies or Runny nose. calcium/mag 2021-0 Yes [id number] 1{each} Take 1 Univers nesium/zinc 9-16 Each by ity o f (CALCIUM-MA 00:00: mouth [place] GNESUIUM-ZI 00 daily. Medica l NC) Branch 333-133-5 mg Tab benzonatate 2021-0 Yes [id number] 100mg Take 1 Univers 100 mg 9-16 capsule by ity of capsule 00:00: mouth 3 [place] 00 (three) Medical times Branch daily as needed for Cough. ondansetron 0 Yes [id number] 4mg Take 1 Univers 4 mg 9-16 tablet by ity of disintegrat 00:00: mouth [place] ing tablet 00 every 8 Medica l (eight) Branch hours as needed for Nausea and Vomiting (N/V). azithromyci 0 Yes [id number] 250mg Take 1 Univers n 9-16 tablet by ity of (ZITHROMAX 00:00: mouth [place] Z-REFUGIO) 250 00 SEE-INSTRU Med ical mg tablet CTIONS. Branch Take 500 mg day 1, then 250 mg days 2 to 5. chlorphenir 0 Yes [id number] 4mg Take 1 Univers amine 4 mg 9-16 tablet by ity of tablet 00:00: mouth [place] 00 every 6 Medical (six) Branch hours as needed for Allergies or Runny nose. calcium/mag Yes [id number] 1{each} Take 1 Univers nesium/zinc 9-16 Each by ity o f (CALCIUM-MA 00:00: mouth [place] GNESUIUM-ZI 00 daily. Medica l NC) Branch 333-133-5 mg Tab benzonatate 0 Yes [id number] 100mg Take 1 Univers 100 mg 9-16 capsule by ity of capsule 00:00: mouth 3 [place] 00 (three) Medical times Branch daily as needed for Cough. ondansetron 0 Yes [id number] 4mg Take 1 Univers 4 mg 9-16 tablet by ity of disintegrat 00:00: mouth [place] ing tablet 00 every 8 Medica l (eight) Branch hours as needed for Nausea and Vomiting (N/V). chlorphenir 2020-0 Yes [id number] 4mg Take 1 Univers amine 4 mg 9-16 tablet by ity of tablet 00:00: mouth [place] 00 every 6 Medical (six) Branch hours as needed for Allergies or Runny nose. calcium/mag 2020-0 Yes [id number] 1{each} Take 1 Univers nesium/zinc 9-16 Each by ity o f (CALCIUM-MA 00:00: mouth [place] GNESUIUM-ZI 00 daily. Medica l NC) Branch 333-133-5 mg Tab benzonatate 0 Yes [id number] 100mg Take 1 Univers 100 mg 9-16 capsule by ity of capsule 00:00: mouth 3 [place] 00 (three) Medical times Branch daily as needed for Cough. ondansetron 0 Yes [id number] 4mg Take 1 Univers 4 mg 9-16 tablet by ity of disintegrat 00:00: mouth [place] ing tablet 00 every 8 Medica l (eight) Branch hours as needed for Nausea and Vomiting (N/V). chlorphenir 0 Yes [id number] 4mg Take 1 Univers amine 4 mg 9-16 tablet by ity of tablet 00:00: mouth [place] 00 every 6 Medical (six) Branch hours as needed for Allergies or Runny nose. calcium/mag Yes [id number] 1{each} Take 1 Univers nesium/zinc 9-16 Each by ity o f (CALCIUM-MA 00:00: mouth [place] GNESUIUM-ZI 00 daily. Medica l OR) Branch 333-133-5 mg Tab benzonatate Yes [id number] 100mg Take 1 Univers 100 mg 9-16 capsule by ity of capsule 00:00: mouth 3 [place] 00 (three) Medical times Branch daily as needed for Cough. ondansetron Yes [id number] 4mg Take 1 Univers 4 mg 9-16 tablet by ity of disintegrat 00:00: mouth [place] ing tablet 00 every 8 Medica l (eight) Branch hours as needed for Nausea and Vomiting (N/V). vitamin 2020- No [id number] 1{tbl} Take 1 Univers D3-folic 9-16 10-17 tablet by ity o f acid 125 00:00: 04:59 mouth [place] mcg (5,000 00 :00 daily for Medi kofi unit)-1 mg 30 days. Branc h Tab vitamin 2020-2020- No [id number] 1{tbl} Take 1 Univers D3-folic 9-16 10-17 tablet by ity o f acid 125 00:00: 04:59 mouth [place] mcg (5,000 00 :00 daily for Medi kofi unit)-1 mg 30 days. Branc h Tab vitamin 2020- No [id number] 1{tbl} Take 1 Univers D3-folic 9-16 10-17 tablet by ity o f acid 125 00:00: 04:59 mouth [place] mcg (5,000 00 :00 daily for Medi kofi unit)-1 mg 30 days. Branc h Tab azithromyci 2020- No [id number] 250mg Take 1 Univers n 9-16 10-11 [...] No 50mg Take 50 mg Univers succinate 10-28-20 by mouth 2 ity of XL (TOPROL 14:52: 00:00 (two) [place] XL) 25 mg 24 :00 times Medical 24 hr daily. Branch tablet diazePAM 2020- No 10mg Take 10 mg Un jaqueline (VALIUM) 10 10-28-20 by mouth 2 i ty of mg tablet 14:52: 00:00 (two) [place] 24 :00 times Medical daily. Branch cyanocobala Yes 1000ug 1,000 mcg, Univers min 6-18 Subcutaneo ity of (VITAMIN 22:00: us, Q24H, [place] B12) 00 First dose Medical injection on Thu Branch 1,000 mcg 10/26/20 at 1700, Until Discontinu ed, Routine chlordiazeP Yes 25mg 25 mg, Univ ers OXIDE 6-18 Oral, TID, ity of (LIBRIUM) 21:00: First dose [place] capsule 25 00 on Thu Medical mg 10/26/20 at Branch 1600, Until Discontinu ed, Routine cholecalcif Yes 2000U 2,000 Univ ers becka 6-18 Units, ity of (vitamin 21:00: Oral, [place] D3) tablet 00 DAILY, Medical 2,000 Units [...] 1 [place] gram/50 mL 00 :00 dose, [facility] Medi kofi (4 %) 10/25/20 at Branch infusion 2 1945, g Routine potassium 2020- No 10meq 10 mEq, IV Univers chloride in 10-26 Piggyback, i ty of water 10 00:00: 05:40 Q1H, 5 [place] mEq/100 mL 00 :00 doses, Medical RTU 10 mEq First dose Bra nch on [facility] 10/25/20 at 1900, Last dose on [facility] 10/25/20 at 2300, 100 mL diazePAM 2020- No 10mg 10 mg, Univer s (VALIUM) 10-25 Intravenou ity of injection 22:45: 21:59 s, ONCE, 1 [place] 10 mg 00 :00 dose, [facility] 10/25/20 at Branch 1745, TITA carvediloL Yes 12.5mg 12.5 mg, U nivers (COREG) 10-25 Oral, BID ity of tablet 12.5 22:00: MEALS, [place] mg 00 First dose Medical on [facility] 10/25/20 at 1700, Until Discontinu ed, Routine LORazepam 2020- No 2mg 2 mg, Slow U nivers (ATIVAN) 10-25 IV Push, ity of injection 2 18:00: 17:21 ONCE, 1 [place] mg 00 :00 dose, [facility] 10/25/20 at Branch 1300, Routine HYDROcodone 2020-0 Yes 1{tbl} 1 tablet, Univers -acetaminop 10-25 Oral, ity of hen (NORCO 16:49: Q6HPRN, [place] 5) 5-325 mg 43 Starting Medi kofi tablet 1 [facility] tablet 10/25/20 at 1149, Until Discontinu ed, Routine, Pain (scale 7-10) hydralAZINE 0 Yes 10mg 10 mg, Univ ers (APRESOLINE 10-25 Slow IV ity o f ) injection 16:48: Push, [place] 10 mg 34 Q6HPRN, Medical Starting Branch [facility] 10/25/20 at 1148, Until Discontinu ed, Routine, DBP=>100; SBP=>160, For SBP > 160
Ind ication: Hypertensi ve Emergency labetaloL Yes 20mg 20 mg, Univer s (NORMODYNE) 10-25 Slow IV ity o f injection 14:58: Push, [place] 20 mg 25 Q6HPRN, Medical Starting Branch [facility] 10/25/20 at 0958, Until Discontinu ed, TITA, For SBP > 170 or DBP > 105 diazePAM 2020- No 10mg 10 mg, Univer s (VALIUM) 10-25 Intravenou ity of injection 14:30: 13:45 s, ONCE, 1 [place] 10 mg 00 :00 dose, [facility] Medical 10/25/20 at Branch 0930, STAT escitalopra Yes 10mg 10 mg, Univ ers m oxalate 10-25 Oral, ity of (LEXAPRO) 14:00: DAILY, [place] tablet 10 00 First dose Medi kofi mg on [facility] Branch 10/25/20 at 0900, Until Discontinu ed, Routine pantoprazol Yes 40mg 40 mg, Univ ers e 10-25 Oral, ity of (PROTONIX) 14:00: DAILY, [place] EC tablet 00 First dose Medi kofi 40 mg on [facility] Branch 10/25/20 at 0900, Until Discontinu ed, Routine acetaminoph Yes 650mg 650 mg, Un jaqueline en 10-25 Oral, ity of (TYLENOL) 13:42: Q6HPRN, [place] tablet 650 14 Starting Medic al mg [facility] Branch 10/25/20 at 0842, Until Discontinu ed, Routine, Pain (scale 1-3), Temp > 38.5 C magnesium 2020- No 400mg 400 mg, Uni vers oxide 10-25 Oral, BID, ity of (MAG-OX 13:30: 12:59 8 doses, [place] 400) tablet 00 :00 First dose Me dical 400 mg on [facility] Branch 10/25/20 at 0830, Last dose on 10/28/20 at 2000, Routine LORazepam 2020- No 1mg 1 mg, Slow U nivers (ATIVAN) 10-25 IV Push, ity of injection 1 05:30: 04:30 ONCE, 1 [place] mg 00 :00 dose, [facility] Medical 10/25/20 at Branch 0030, Routine HYDROcodone 2020- No 1{tbl} 1 tablet, Univers -acetaminop 10-24 Oral, ity of hen (NORCO 22:45: 22:14 ONCE, 1 [place] 5) 5-325 mg 00 :00 dose, Thu Med ical tablet 1 10/24/20 at [facility] h tablet 1745, Routine enoxaparin Yes 40mg 40 mg, Unive rs (LOVENOX) 10-24 Subcutaneo ity of injection 22:00: us, DAILY, [place] 40 mg 00 First dose Medical on Thu10/24/20 at 1700, Until Discontinu ed, Routine sulfur 2020- No [id number] 5mL 5 mL, Unive rs hexafluorid 10-24 Intravenou i ty of e microsphr 21:15: 21:15 s, ONCE, 1 [place] (LUMASON) 00 :00 dose, Thu Medic al injection 5 10/24/20 at Br anch mL 1615, Routine
direct support staff member approving Restricted medication : SONIA GOFF [...] [place] 10 mg 00 :00 dose, [facility] 10/24/20 at Branch 1315, STAT diazePAM 2020- No 10mg 10 mg, Univer s (VALIUM) 10-24 Intravenou ity of injection 17:45: 17:10 s, ONCE, 1 [place] 10 mg 00 :00 dose, [facility] 10/24/20 at Branch 1245, TITA metoprolol 2020- No 50mg 50 mg, Univ ers tartrate 10-24 Oral, BID, ity of (LOPRESSOR) 17:15: 16:49 First dose [place] tablet 50 00 :21 on [facility] Medical mg 10/24/20 at Branch 1215, Until Discontinu ed, Routine ondansetron Yes 4mg 4 mg, Unive rs (ZOFRAN-ODT 10-24 Oral, ity of ) 17:02: Q8HPRN, [place] disintegrat 20 Starting Medi kofi ing tablet [facility] 4 mg 10/24/20 at 1202, Until Discontinu ed, Routine, Nausea and Vomiting (N/V) LORazepam 2020- No 2mg 2 mg, Slow U nivers (ATIVAN) 10-24 IV Push, ity of injection 2 17:00: 16:01 ONCE, 1 [place] mg 00 :00 dose, [facility] 10/24/20 at Branch 1200, STAT labetaloL 2020- No 20mg 20 mg, Unive rs (NORMODYNE) 10-24 Slow IV ity of injection 17:00: 16:01 Push, [place] 20 mg 00 :00 ONCE, 1 Medical dose, [facility] 10/24/20 at 1200, TITA lactated 2020- No 30mL/kg at 999 Uni vers ringers IV 10-24 mL/hr, ity of infusion 16:45: 18:17 2,925 mL [place] 2,925 mL 00 :00 (30 mL/kg Medica l ?97.5 kg), [place] IV Infusion, ONCE, 1 dose, [facility] 10/24/20 at 1145, STAT glucagon Yes 1mg 1 mg, Univers (GLUCAGEN 10-24 Intramuscu ity of DIAGNOSTIC 16:43: lar, PRN, [place] KIT) 42 Starting Medical injection 1 [facility] 10/24/20 at 1143, Until Discontinu ed, TITA, Blood Glucose < or = 70 mg/dL and patient is unable to swallow or has mental changes. dextrose 50 Yes 25mL 25 mL, Univ ers % in water 10-24 Slow IV ity of (D50W) 16:43: Push, PRN, [place] injection 42 Starting Medica l 25 mL [facility] 10/24/20 at 1143, Until Discontinu ed, TITA, Blood Glucose < or = 70 mg/dL and patient is unable to swallow or has mental status changes. LORazepam 2020- No 2mg 2 mg, Slow U nivers (ATIVAN) 10-24 IV Push, ity of injection 2 16:00: 15:04 ONCE, 1 [place] mg 00 :00 dose, [facility] 10/24/20 at Branch 1100, Routine diazePAM 2020- No 10mg 10 mg, Univer s (VALIUM) 10-24 Intravenou ity of injection 16:00: 15:21 s, ONCE, 1 [place] 10 mg 00 :00 dose, [facility] 10/24/20 at Branch 1100, Routine LORazepam 2020- No 2mg 2 mg, Slow U nivers (ATIVAN) 10-24 IV Push, ity of injection 2 15:45: 14:34 ONCE, 1 [place] mg 00 :00 dose, [facility] 10/24/20 at Branch 1045, Routine LORazepam 2020- No 1mg 1 mg, Slow U nivers (ATIVAN) 10-24 IV Push, ity of injection 1 15:15: 14:11 ONCE, 1 [place] mg 00 :00 dose, [facility] 10/24/20 at Branch 1015, STAT ondansetron Yes 4mg 4 mg, Slow Univers (ZOFRAN 10-24 IV Push, ity of (PF)) 14:58: Q6HPRN, [place] injection 4 39 Starting Medi kofi mg [facility] 10/24/20 at 0958, Until Discontinu ed, Routine, [...] [place] 00 First dose Medical on Thu Branch 10/24/20 at 0900, Until Discontinu ed, Routine thiamine Yes 100mg 100 mg, Unive rs (VITAMIN 10-24 Oral, ity of B1) tablet 14:00: DAILY, [...] mg 00 :00 ONCE, 1 Medical dose, [facility] 10/24/20 at 0845, TITA oxazepam 2020- No 15mg 15 mg, Univer s (SERAX) 10-24 Oral, ity of capsule 15 13:40: 20:57 Q4HPRN, [place]fred as mg 38 :53 Starting Medical Wed Branch 10/24/20 at 0840, Until Thu10/26/20 at 1557, Routine, Only while awake for DBP equal to or greater than 100, HR equal to or greater than 100. iopamidol 2020- No [id number] 100mL 100 mL, Univers (ISOVUE 10-24 Intravenou ity o f 370-500 mL) 13:00: 11:40 s, ONCE, 1 [place] injection 00 :00 dose, Thu Medic al 100 mL 10/24/20 at Branch 0800, Routine LORazepam 2020- No 1mg 1 mg, Slow U nivers (ATIVAN) 10-24 IV Push, ity of injection 1 13:00: 11:54 ONCE, 1 [place] mg 00 :00 dose, [facility] Medical 10/24/20 at Branch 0800, STAT NaCl 0.9% 2020- No 1000mL at 999 Uni vers (NS) bolus 10-24 mL/hr, ity of infusion 11:30: 11:27 1,000 mL, [place] 1,000 mL 00 :00 IV Medical Infusion, Branch ONCE, 1 dose, [facility] 10/24/20 at 0630, STAT metoprolol 2020- No 5mg 5 mg, Slow Univers (LOPRESSOR) 07-29 03-20 IV Push, ity of injection 5 00:30: 23:26 ONCE, 1 [place] mg 00 :00 dose, [facility] Medical 07/28/20 at Branch 1930, TITA NaCl 0.9% 2020- No 1000mL at 999 Uni vers (NS) bolus 07-28 03-21 mL/hr, ity of infusion 22:15: 00:55 1,000 mL, [place] 1,000 mL 00 :00 IV Medical Infusion, Branch ONCE, 1 dose, [facility] 07/28/20 at 1715, STAT LORazepam 2020- No 1mg 1 mg, Slow U nivers (ATIVAN) 3-20 03-20 IV Push, ity of injection 1 22:15: 21:18 ONCE, 1 [place] mg 00 :00 dose, Sat Medical 07/28/20 at Branch 1715, STAT LORazepam 2020- No 1mg 1 mg, Slow U nivers (ATIVAN) 3-20 03-20 IV Push, ity of injection 1 19:31: 19:31 ONCE, 1 [place] mg 00 :00 dose, Sat Medical 07/28/20 at Branch 1445, STAT LORazepam 0 2020- No 1mg 1 mg, Slow U nivers (ATIVAN) 3-20 03-20 IV Push, ity of injection 1 19:30: 18:28 ONCE, 1 [place] mg 00 :00 dose, Sat Medical 07/28/20 at Branch 1430, STAT metoprolol 2020- No 50mg 50 mg, Univ ers tartrate 2-20 02-20 Oral, ity of (LOPRESSOR) 13:00: 12:02 ONCE, 1 [place] tablet 50 00 :00 dose, Sat Medic al mg 06/30/20 at Branch 0700, Routine NaCl 0.9% No 1000mL at 999 Uni vers (NS) bolus 2-20 02-20 mL/hr, ity of infusion 12:00: 16:11 1,000 mL, [place] 1,000 mL 00 :00 IV Medical Infusion, Branch ONCE, 1 dose, 06/30/20 at 0600, TITA metoprolol Yes [id number] 50mg Take 2 U nivers tartrate 25 2-20 tablets by it y of mg tablet 00:00: mouth (two) Medical times Branch daily. metoprolol Yes [id number] 50mg Take 2 U nivers tartrate 25 2-20 tablets by it y of mg tablet 00:00: mouth (two) Medical times Branch daily. metoprolol Yes [id number] 50mg Take 2 U nivers tartrate 25 2-20 tablets by it y of mg tablet 00:00: mouth (two) Medical times Branch daily. metoprolol 2021-0 Yes [id number] 50mg Take 2 U nivers tartrate 25 2-20 tablets by it y of mg tablet 00:00: mouth (two) Medical times Branch daily. metoprolol 2020-0 Yes [id number] 50mg Take 2 U nivers tartrate 25 2-20 tablets by it y of mg tablet 00:00: mouth (two) Medical times Branch daily. metoprolol 2020-0 Yes [id number] 50mg Take 2 U nivers tartrate 25 2-20 tablets by it y of mg tablet 00:00: mouth (two) Medical times Branch daily. metoprolol 2020-0 Yes [id number] 50mg Take 2 U nivers tartrate 25 2-20 tablets by it y of mg tablet 00:00: mouth (two) Medical times Branch daily. metoprolol Yes [id number] 50mg Take 2 U nivers tartrate 25 2-20 tablets by it y of mg tablet 00:00: mouth (two) Medical times Branch daily. metoprolol Yes [id number] 50mg Take 2 U nivers tartrate 25 2-20 tablets by it y of mg tablet 00:00: mouth (two) Medical times Branch daily. metoprolol 2020-0 Yes [id number] 50mg Take 2 U nivers tartrate 25 2-20 tablets by it y of mg tablet 00:00: mouth (two) Medical times Branch daily. metoprolol 0 Yes [id number] 50mg Take 2 U nivers tartrate 25 2-20 tablets by it y of mg tablet 00:00: mouth (two) Medical times Branch daily. metoprolol Yes [id number] 50mg Take 2 U nivers tartrate 25 2-20 tablets by it y of mg tablet 00:00: mouth (two) Medical times Branch daily. ibuprofen 2020-2020- No 600mg 600 mg, Uni vers (IBU) 06-23 Oral, ity of tablet 600 21:15: 20:35 ONCE, 1 [place] mg 00 :00 dose, Sat Medical 06/23/20 at Branch 1515, TITA ibuprofen 2020-0 Yes [id number] 600mg Take 1 [facility] 600 mg 2-13 [id number] tablet by ity of tablet 00:00: mouth [place] 00 every 6 Medical (six) Branch hours as needed for Pain (scale 4-6). ibuprofen Yes [id number] 600mg Take 1 [facility] 600 mg 2-13 [id number] tablet by ity of tablet 00:00: mouth [place] 00 every 6 Medical (six) Branch hours as needed for Pain (scale 4-6). ibuprofen Yes [id number] 600mg Take 1 [facility] 600 mg 2-13 [id number] tablet by ity of tablet 00:00: mouth [place] 00 every 6 Medical (six) Branch hours as needed for Pain (scale 4-6). ibuprofen 2020- No [id number] 600mg Take 1 [facility] 600 mg 2-13 -20 [id number] tablet by ity o f tablet 00:00: 00:00 mouth [place] 00 :00 every 6 Medical (six) Branch hours as needed for Pain (scale 4-6). venlafaxine 2019- No [id number] 225mg QD Take 3 M ethodi XR 02-[address] (EFFEXOR-XR 00:00: 04:59 (225 mg [facility] ) 75 MG 24 00 :00 total) by l hr capsule mouth every morning for 7 days .major depressive disorder. nicotine 2019- No [id number] 2mg Q2H Chew 1 Metho di polacrilex 01-31 each ([address] (NICORETTE) 00:00: 04:59 total) [facility] 2 mg gum 00 :00 every 2 l (two) hours as needed for smoking cessation for up to 30 days .stop smoking. metoprolol 2019- No [id number] 50mg Q.5D Take 1 Met hodi tartrate 01-31 tablet (50 st (LOPRESSOR) 00:00: 04:59 mg total) [facility]osp[facility] 50 mg 00 :00 by mouth l tablet BID at 0700, 1900 for 30 days .high blood pressure. busPIRone 2019- [place] [id number] 7.5mg Q.5D Take 1 Met hodi (BUSPAR) 01-[address] 7.5 MG 00:00: 04:59 (7.5 mg Hospita tablet 00 :00 total) by l mouth 2 (two) times a day for 7 days .repeated episodes of anxiety. sodium 2020-0 Yes 5mL 5 mL, Univers chloride 7-02 Intravenou ity o f (NS) 04:17: s, PRN, [place] injection 5 55 Starting Medi kofi mL 11/09/19 Branch at 2317, Until Discontinu ed, Routine, IV line flushing dicyclomine 2020-0 2020- No 20mg 20 mg, Uni vers (BENTYL) - 05-21 Oral, ity of capsule 20 16:00: 15:16 ONCE, 1 [place] mg 00 :00 dose, [facility] 09/29/19 at Branch 1100, Routine ondansetron 2020-0 2020- No 4mg 4 mg, Slow [facility] (ZOFRAN 09-28- IV Push, ity of (PF)) 16:00: 15:23 ONCE, 1 [place] injection 4 00 :00 dose, [facility] mg 09/29/19 at Branch 1100, TITA NaCl 0.9% 2020-0 2020- No 1000mL at 999 Uni vers (NS) bolus 09-28 05-21 mL/hr, ity of infusion 16:00: 16:30 1,000 mL, [place] 1,000 mL 00 :00 IV Medical Piggyback, Branch ONCE, 1 dose, [facility] 09/29/19 at 1100, STAT loperamide 2020-0 Yes 2mg 2 mg, Univer s (IMODIUM 5-21 Oral, ity of A-D) 14:53: Q4HPRN, [place] capsule 2 46 Starting Medica l mg [facility] 09/29/19 at 0953, Until Discontinu ed, Routine, Diarrhea ondansetron 2020-0 Yes [id number] 4mg Take 1 U nivers 4 mg 5-21 tablet by ity of disintegrat 00:00: mouth [place] ing tablet 00 every 8 Medica l (eight) Branch hours as needed for Nausea and Vomiting (N/V). loperamide 2020-0 Yes [id number] 2mg Take 1 Un jaqueline 2 mg 5-21 capsule by ity of capsule 00:00: mouth [place] 00 every 4 Medical (four) Branch hours as needed for Diarrhea. Not to exceed 16mg daily. ondansetron 2020-0 Yes [id number] 4mg Take 1 U nivers 4 mg 5-21 tablet by ity of disintegrat 00:00: mouth [place] ing tablet 00 every 8 Medica l (eight) Branch hours as needed for Nausea and Vomiting (N/V). loperamide 2020-0 Yes [id number] 2mg Take 1 Un jaqueline 2 mg 5-21 capsule by ity of capsule 00:00: mouth [place] 00 every 4 Medical (four) Branch hours as needed for Diarrhea. Not to exceed 16mg daily. ondansetron 2020-0 Yes [id number] 4mg Take 1 U nivers 4 mg 5-21 tablet by ity of disintegrat 00:00: mouth [place] ing tablet 00 every 8 Medica l (eight) Branch hours as needed for Nausea and Vomiting (N/V). loperamide 2020-0 Yes [id number] 2mg Take 1 Un jaqueline 2 mg 5-21 capsule by ity of capsule 00:00: mouth [place] 00 every 4 Medical (four) Branch hours as needed for Diarrhea. Not to exceed 16mg daily. ondansetron 2020-0 Yes [id number] 4mg Take 1 U nivers 4 mg 5-21 tablet by ity of disintegrat 00:00: mouth [place] ing tablet 00 every 8 Medica l (eight) Branch hours as needed for Nausea and Vomiting (N/V). loperamide 2020-0 Yes [id number] 2mg Take 1 Un jaqueline 2 mg 5-21 capsule by ity of capsule 00:00: mouth [place] 00 every 4 Medical (four) Branch hours as needed for Diarrhea. Not to exceed 16mg daily. ondansetron 2020-0 Yes [id number] 4mg Take 1 U nivers 4 mg 5-21 tablet by ity of disintegrat 00:00: mouth [place] ing tablet 00 every 8 Medica l (eight) Branch hours as needed for Nausea and Vomiting (N/V). loperamide 2020-0 Yes [id number] 2mg Take 1 Un jaqueline 2 mg 5-21 capsule by ity of capsule 00:00: mouth [place] 00 every 4 Medical (four) Branch hours as needed for Diarrhea. Not to exceed 16mg daily. ondansetron 2020-0 Yes [id number] 4mg Take 1 U nivers 4 mg 5-21 tablet by ity of disintegrat 00:00: mouth [place] ing tablet 00 every 8 Medica l (eight) Branch hours as needed for Nausea and Vomiting (N/V). ondansetron 2020-0 Yes [id number] 4mg Take 1 U nivers 4 mg 5-21 tablet by ity of disintegrat 00:00: mouth [place] ing tablet 00 every 8 Medica l (eight) Branch hours as needed for Nausea and Vomiting (N/V). ondansetron 2019- Yes [id number] 4mg Take 1 U nivers 4 mg 5-21 tablet by ity of disintegrat 00:00: mouth [place] ing tablet 00 every 8 Medica l (eight) Branch hours as needed for Nausea and Vomiting (N/V). ondansetron 2019-2020- No [id number] 4mg Take 1 [facility] 4 mg 5-21 09-16 tablet by ity of disintegrat 00:00: 00:00 [place] tablet 00 :00 every 8 Medica l (eight) Branch hours as needed for Nausea and Vomiting (N/V). ondansetron 2019-2020- No [id number] 4mg Take 1 [facility] 4 mg 5-21 -16 tablet by ity of disintegrat 00:00: 00:00 [place] tablet 00 :00 every 8 Medica l (eight) Branch hours as needed for Nausea and Vomiting (N/V). loperamide 2020- No [id number] 2mg Take 1 U nivers 2 mg 5-21 06-20 capsule by ity of capsule 00:00: 00:00 mouth [place] 00 :00 every 4 Medical (four) Branch hours as needed for Diarrhea. Not to exceed 16mg daily. dicyclomine 2019- No [id number] 10mg Take 1 Univers (BENTYL) 10 5-21 05-27 capsule by i ty of mg capsule 00:00: 04:59 mouth [place] 00 :00 every 8 Medical (eight) Branch hours as needed for Abdominal pain for up to 5 days. diazePAM 2019-2019- No 5mg 5 mg, Slow Un jaqueline (VALIUM) 06-16 IV Push, ity of injection 5 15:45: 14:45 ONCE, 1 [place] mg 00 :00 dose, [facility] 06/16/19 at Branch 0945, STAT diazePAM 2019-2019- No 2.5mg 2.5 mg, Univ ers (VALIUM) 2-06 02-06 Oral, ity of tablet 2.5 14:15: 14:08 ONCE, 1 [place] mg 00 :00 dose, [facility] 06/16/19 at [place] 0815, TITA LORazepam 2020-0 2020- No 1mg 1 mg, Slow U nivers (ATIVAN) 06-15 IV Push, ity of injection 1 20:00: 18:59 ONCE, 1 [place] mg 00 :00 dose, Wed Medical 06/15/19 at [place] 1400, STAT metoprolol 2020-0 Yes 50mg Take 50 mg U nivers succinate 1-19 by mouth 2 ity of XL (TOPROL 16:21: ([facility]) [place] XL) 25 mg 12 times Medical 24 hr daily. Branch tablet diazePAM 2020-0 Yes 10mg Take 10 mg Uni vers (VALIUM) 10 1-19 by mouth 2 it y of mg tablet 16:21: ([facility]) [place] 12 times Medical daily. Branch metoprolol 2020-0 Yes 50mg Take 50 mg U nivers succinate 1-19 by mouth 2 ity of XL (TOPROL 16:21: ([facility]) [place] XL) 25 mg 12 times Medical 24 hr daily. Branch tablet diazePAM 2020-0 Yes 10mg Take 10 mg Uni vers (VALIUM) 10 1-19 by mouth 2 it y of mg tablet 16:21: ([facility]) [place] 12 times Medical daily. Branch metoprolol 2020-0 Yes 50mg Take 50 mg U nivers succinate 1-19 by mouth 2 ity of XL (TOPROL 16:21: ([facility]) [place] XL) 25 mg 12 times Medical 24 hr daily. Branch tablet diazePAM 2020-0 Yes 10mg Take 10 mg Uni vers (VALIUM) 10 1-19 by mouth 2 it y of mg tablet 16:21: ([facility]) [place] 12 times Medical daily. Branch metoprolol 2020-0 Yes 50mg Take 50 mg U nivers succinate 1-19 by mouth 2 ity of XL (TOPROL 16:21: ([facility]) [place] XL) 25 mg 12 times Medical 24 hr daily. Branch tablet diazePAM 2020-0 Yes 10mg Take 10 mg Uni vers (VALIUM) 10 1-19 by mouth 2 it y of mg tablet 16:21: ([facility]) [place] 12 times Medical daily. Branch [...] 2 ity of XL (TOPROL 16:21: (two) [place] XL) 25 mg 12 times Medical 24 [...] it y of mg tablet 16:21: (two) [place] 12 times Medical daily. Branch amoxicillin 2019- No [id number] 500mg Take 1 [facility] 500 mg 05-29 capsule by ity of capsule 00:00: 05:59 mouth 2 [place] 00 :00 (two) Medical times [place] daily for 10 days. amoxicillin 2019- No [id number] 500mg Take 1 [facility] 500 mg 05-29 capsule by ity of capsule 00:00: 05:59 mouth 2 [place] 00 :00 (two) Medical times [place] daily for 10 days. metoprolol 2018-05 Yes 50mg Take 50 mg U nivers succinate 0-12 by mouth 2 ity of XL (TOPROL 08:43: (two) [place] XL) 25 mg 57 times Medical 24 hr daily. Branch tablet diazePAM 2018-05 Yes 10mg Take 10 mg Uni vers (VALIUM) 10 0-12 by mouth 2 it y of mg tablet 08:43: ([facility]) [place] 57 times Medical daily. Branch pantoprazol 2018-05 Yes [id number] 40mg Take 1 Univers e 0-12 tablet by ity of (PROTONIX) 00:00: mouth [place] 40 mg EC 00 daily. Medical tablet Branch pantoprazol 2018-05 Yes [id number] 40mg Take 1 Univers e 0-12 tablet by ity of (PROTONIX) 00:00: mouth [place] 40 mg EC 00 daily. Medical tablet Branch pantoprazol 2018-05 Yes [id number] 40mg Take 1 Univers e 0-12 tablet by ity of (PROTONIX) 00:00: mouth [place] 40 mg EC 00 daily. Medical tablet Branch pantoprazol 2018-05 Yes [id number] 40mg Take 1 Univers e 0-12 tablet by ity of (PROTONIX) 00:00: mouth [place] 40 mg EC 00 daily. Medical tablet Branch pantoprazol 2018-05 Yes [id number] 40mg Take 1 Univers e 0-12 tablet by ity of (PROTONIX) 00:00: mouth [place] 40 mg EC 00 daily. Medical tablet Branch pantoprazol 2018-05 Yes [id number] 40mg Take 1 Univers e 0-12 tablet by ity of (PROTONIX) 00:00: mouth [place] 40 mg EC 00 daily. Medical tablet Branch pantoprazol 2018-05 Yes [id number] 40mg Take 1 Univers e 0-12 tablet by ity of (PROTONIX) 00:00: mouth [place] 40 mg EC 00 daily. Medical tablet Branch pantoprazol 2018-05 Yes [id number] 40mg Take 1 Univers e 0-12 tablet by ity of (PROTONIX) 00:00: mouth [place] 40 mg EC 00 daily. Medical tablet Branch pantoprazol 2018-05 Yes [id number] 40mg Take 1 Univers e 0-12 tablet by ity of (PROTONIX) 00:00: mouth [place] 40 mg EC 00 daily. Medical tablet Branch pantoprazol 2018-05 Yes [id number] 40mg Take 1 Univers e 0-12 tablet by ity of (PROTONIX) 00:00: mouth [place] 40 mg EC 00 daily. Medical tablet Branch pantoprazol 2018-05 Yes [id number] 40mg Take 1 Univers e 0-12 tablet by ity of (PROTONIX) 00:00: mouth [place] 40 mg EC 00 daily. Medical tablet Branch pantoprazol 2018-05 Yes [id number] 40mg Take 1 Univers e 0-12 tablet by ity of (PROTONIX) 00:00: mouth [place] 40 mg EC 00 daily. Medical tablet Branch pantoprazol 2018-05 Yes [id number] 40mg Take 1 Univers e 0-12 tablet by ity of (PROTONIX) 00:00: mouth [place] 40 mg EC 00 daily. Medical tablet Branch pantoprazol 2018-05 Yes [id number] 40mg Take 1 Univers e 0-12 tablet by ity of (PROTONIX) 00:00: mouth [place] 40 mg EC 00 daily. Medical tablet Branch pantoprazol 2018-05 Yes [id number] 40mg Take 1 Univers e 0-12 tablet by ity of (PROTONIX) 00:00: mouth [place] 40 mg EC 00 daily. Medical tablet Branch pantoprazol 2018-05 Yes [id number] 40mg Take 1 Univers e 0-12 tablet by ity of (PROTONIX) 00:00: mouth [place] 40 mg EC 00 daily. Medical tablet Branch pantoprazol 2018-05 Yes [id number] 40mg Take 1 Univers e 0-12 tablet by ity of (PROTONIX) 00:00: mouth [place] 40 mg EC 00 daily. Medical tablet Branch pantoprazol 2018-05 Yes [id number] 40mg Take 1 Univers e 0-12 tablet by ity of (PROTONIX) 00:00: mouth [place] 40 mg EC 00 daily. Medical tablet Branch pantoprazol 2018-05 Yes [id number] 40mg Take 1 Univers e 0-12 tablet by ity of (PROTONIX) 00:00: mouth [place] 40 mg EC 00 daily. Medical tablet Branch pantoprazol 2018-05 Yes [id number] 40mg Take 1 Univers e 0-12 tablet by ity of (PROTONIX) 00:00: mouth [place] 40 mg EC 00 daily. Medical tablet Branch pantoprazol 2018-05 Yes [id number] 40mg Take 1 Univers e 0-12 tablet by ity of (PROTONIX) 00:00: mouth [place] 40 mg EC 00 daily. Medical tablet Branch ketorolac 2018- No 15mg 15 mg, Unive rs (TORADOL) 01-25 Slow IV ity of injection 01:00: 23:57 Push, [place] 15 mg 00 :00 ONCE, 1 Medical dose, [facility] 01/24/19 at 2000, Routine
direct support staff member approving Restricted medication : JERRY MARTIN NaCl 0.9% 2019- No 1000mL at 999 Uni vers (NS) bolus 01-24 mL/hr, ity of infusion 21:15: 23:58 1,000 mL, [place] 1,000 mL 00 :00 IV Medical Infusion, Branch ONCE, 1 dose, [facility] 01/24/19 at 1615, TITA methocarbam Yes [id number] 500mg Take 1 Univers ol 500 mg 9-16 tablet by ity o f tablet 00:00: mouth ([facility]) Medical times Branch daily. methocarbam Yes [id number] 500mg Take 1 Univers ol 500 mg 9-16 tablet by ity o f tablet 00:00: mouth ([facility]) Medical times Branch daily. methocarbam Yes [id number] 500mg Take 1 [facility] ol 500 mg 9-16 tablet by ity o f tablet 00:00: mouth ([facility]) Medical times Branch daily. methocarbam Yes [id number] 500mg Take 1 [facility] ol 500 mg 9-16 tablet by ity o f tablet 00:00: mouth ([facility]) Medical times Branch daily. methocarbam Yes [id number] 500mg Take 1 [facility] ol 500 mg 9-16 tablet by ity o f tablet 00:00: mouth 4 [place] ([facility]) Medical times Branch daily. methocarbam 2018- Yes [id number] 500mg Take 1 Univers ol 500 mg 9-16 tablet by ity o f tablet 00:00: mouth 4 [place] 00 (four) Medical times Branch daily. methocarbam Yes [id number] 500mg Take 1 [facility] ol 500 mg 9-16 tablet by ity o f tablet 00:00: mouth 4 [place] (four) Medical times Branch daily. methocarbam Yes [id number] 500mg Take 1 [facility] ol 500 mg 9-16 tablet by ity o f tablet 00:00: mouth 4 [place] (four) Medical times Branch daily. methocarbam Yes [id number] 500mg Take 1 [facility] ol 500 mg 9-16 tablet by ity o f tablet 00:00: mouth 4 [place] 00 (four) Medical times Branch daily. methocarbam Yes [id number] 500mg Take 1 [facility] ol 500 mg 9-16 tablet by ity o f tablet 00:00: mouth [place] ([facility]) Medical times Branch daily. methocarbam Yes [id number] 500mg Take 1 [facility] ol 500 mg 9-16 tablet by ity o f tablet 00:00: mouth [place] (four) Medical times Branch daily. methocarbam Yes [id number] 500mg Take 1 [facility] ol 500 mg 9-16 tablet by ity o f tablet 00:00: mouth 4 [place] (four) Medical times Branch daily. methocarbam 2020- No [id number] 500mg Take 1 [facility] ol 500 mg 9-16 06-20 tablet by ity of tablet 00:00: 00:[address] [place] [address] 00 :00 (four) Medical times Branch daily. ketorolac 2018- No 30mg 30 mg, Unive rs (TORADOL) 12-21 Slow IV ity of injection 23:45: 23:22 Push, [place] 30 mg 00 :00 ONCE, 1 Medical dose, e Branch 12/21/18 at 1845, TITA
Fa culty member approving Restricted medication : DEMOND DANIELS dicyclomine 2018- No 20mg 20 mg, Uni vers (BENTYL) 12-21 Oral, ONCE ity of capsule 20 23:45: 23:22 NOW, 1 [place] mg 00 :00 dose, [facility] Medical 12/21/18 at Branch 1845, Routine ondansetron 2018- 2019- No 4mg 4 mg, Slow Univers (ZOFRAN 12-21 IV Push, ity of (PF)) 22:30: 22:25 ONCE, 1 [place] injection 4 00 :00 dose, [facility] Med ical mg 12/21/18 at Branch 1730, TITA NaCl 0.9% 2018-0 2019- No 1000mL at 999 Uni vers (NS) bolus 12-21 mL/hr, ity of infusion 22:30: 23:34 1,000 mL, [place] 1,000 mL 00 :00 IV Medical Infusion, [place] ONCE, 1 dose, [facility] 12/21/18 at 1730, STAT ondansetron 2018-0 Yes [id number] 4mg Take 1 Univers (ZOFRAN 8-13 tablet by ity of ODT) 4 mg 00:00: mouth [place] disintegrat 00 every 8 Medic al ing tablet (eight) Branch hours as needed for Nausea and Vomiting (N/V). dicyclomine 2019-0 Yes [id number] 20mg Take 1 Univers (BENTYL) 20 8-13 tablet by ity of mg tablet 00:00: mouth 3 [place] 00 (three) Medical times Branch daily as needed for Abdominal pain. ondansetron 2019-0 Yes [id number] 4mg Take 1 Univers (ZOFRAN 8-13 tablet by ity of ODT) 4 mg 00:00: mouth [place] disintegrat 00 every 8 Medic al ing tablet (eight) Branch hours as needed for Nausea and Vomiting (N/V). dicyclomine 2019-0 Yes [id number] 20mg Take 1 Univers (BENTYL) 20 8-13 tablet by ity of mg tablet 00:00: mouth 3 [place] 00 (three) Medical times Branch daily as needed for Abdominal pain. ondansetron 2019-0 Yes [id number] 4mg Take 1 Univers (ZOFRAN 8-13 tablet by ity of ODT) 4 mg 00:00: mouth [place] disintegrat 00 every 8 Medic al ing tablet (eight) Branch hours as needed for Nausea and Vomiting (N/V). dicyclomine 2019-0 Yes [id number] 20mg Take 1 Univers (BENTYL) 20 8-13 tablet by ity of mg tablet 00:00: mouth 3 [place] 00 (three) Medical times Branch daily as needed for Abdominal pain. ondansetron 2019-0 Yes [id number] 4mg Take 1 Univers (ZOFRAN 8-13 tablet by ity of ODT) 4 mg 00:00: mouth [place] disintegrat 00 every 8 Medic al ing tablet (eight) Branch hours as needed for Nausea and Vomiting (N/V). dicyclomine 2019-0 Yes [id number] 20mg Take 1 Univers (BENTYL) 20 8-13 tablet by ity of mg tablet 00:00: mouth 3 [place] 00 (three) Medical times Branch daily as needed for Abdominal pain. ondansetron 2019-0 Yes [id number] 4mg Take 1 Univers (ZOFRAN 8-13 tablet by ity of ODT) 4 mg 00:00: mouth [place] disintegrat 00 every 8 Medic al ing tablet (eight) Branch hours as needed for Nausea and Vomiting (N/V). dicyclomine 2019-0 Yes [id number] 20mg Take 1 Univers (BENTYL) 20 8-13 tablet by ity of mg tablet 00:00: mouth 3 [place] 00 (three) Medical times Branch daily as needed for Abdominal pain. ondansetron 2019-0 Yes [id number] 4mg Take 1 Univers (ZOFRAN 8-13 tablet by ity of ODT) 4 mg 00:00: mouth [place] disintegrat 00 every 8 Medic al ing tablet (eight) Branch hours as needed for Nausea and Vomiting (N/V). dicyclomine 2019-0 Yes [id number] 20mg Take 1 Univers (BENTYL) 20 8-13 tablet by ity of mg tablet 00:00: mouth 3 [place] 00 (three) Medical times Branch daily as needed for Abdominal pain. ondansetron 2019-0 Yes [id number] 4mg Take 1 Univers (ZOFRAN 8-13 tablet by ity of ODT) 4 mg 00:00: mouth [place] disintegrat 00 every 8 Medic al ing tablet (eight) Branch hours as needed for Nausea and Vomiting (N/V). dicyclomine 2019-0 Yes [id number] 20mg Take 1 Univers (BENTYL) 20 8-13 tablet by ity of mg tablet 00:00: mouth 3 [place] 00 (three) Medical times Branch daily as needed for Abdominal pain. ondansetron 2019-0 Yes [id number] 4mg Take 1 Univers (ZOFRAN 8-13 tablet by ity of ODT) 4 mg 00:00: mouth [place] disintegrat 00 every 8 Medic al ing tablet (eight) Branch hours as needed for Nausea and Vomiting (N/V). dicyclomine 2018- Yes [id number] 20mg Take 1 Univers (BENTYL) 20 8-13 tablet by ity of mg tablet 00:00: mouth 3 [place] 00 (three) Medical times Branch daily as needed for Abdominal pain. ondansetron 2018- Yes [id number] 4mg Take 1 Univers (ZOFRAN 8-13 tablet by ity of ODT) 4 mg 00:00: mouth [place] disintegrat 00 every 8 Medic al ing tablet (eight) Branch hours as needed for Nausea and Vomiting (N/V). dicyclomine 2018- Yes [id number] 20mg Take 1 Univers (BENTYL) 20 8-13 tablet by ity of mg tablet 00:00: mouth 3 [place] 00 (three) Medical times Branch daily as needed for Abdominal pain. ondansetron 2020- No [id number] 4mg Take 1 Univers (ZOFRAN 8-13 05-21 tablet by ity of ODT) 4 mg 00:00: 00:00 mouth [place] disintegrat 00 :00 every 8 Medic al ing tablet (eight) Branch hours as needed for Nausea and Vomiting (N/V). dicyclomine 2020- No [id number] 20mg Take 1 Univers (BENTYL) 20 8-13 05-21 tablet by it y of mg tablet 00:00: 00:00 mouth 3 [place] 00 :00 (three) Medical times Branch daily as needed for Abdominal pain. metoprolol 2019 Yes 50mg Take 50 mg U nivers succinate 7-02 by mouth 2 ity of XL (TOPROL 22:02: (two) [place] XL) 25 mg 32 times Medical 24 hr daily. Branch tablet diazePAM Yes 10mg Take 10 mg Uni vers (VALIUM) 10 7-02 by mouth 2 it y of mg tablet 22:02: (two) [place] 32 times Medical daily. Branch metoprolol Yes 50mg Take 50 mg U nivers succinate 7-02 by mouth 2 ity of XL (TOPROL 22:02: (two) [place] XL) 25 mg 32 times Medical 24 hr daily. Branch tablet diazePAM Yes 10mg Take 10 mg Uni vers (VALIUM) 10 702 by mouth 2 it y of mg tablet 22:02: (two) [place] 32 times Medical daily. Branch metoprolol Yes 50mg Take 50 mg U nivers succinate 11-09 by mouth 2 ity of XL (TOPROL 22:02: (two) [place] XL) 25 mg 32 times Medical 24 hr daily. Branch tablet diazePAM Yes 10mg Take 10 mg Uni vers (VALIUM) 10 7 by mouth 2 it y of mg [...] it y of mg tablet 00:00: (two) [place] 00 times Medical daily. Branch busPIRone 2014-05 [...] it y of mg tablet 00:00: (two) [place] 00 times Medical daily. Branch busPIRone 2014-05 Yes 10mg Take 1 Tab Un jaqueline (BUSPAR) 10 2-14 by mouth 2 it y of mg tablet 00:00: (two) [place] 00 times Medical daily. Branch busPIRone 2014-05- No 10mg Take 1 Tab U nivers (BUSPAR) 10 2-14 06-20 by mouth 2 i ty of mg tablet 00:00: 00:00 (two) [place] 00 :00 times Medical daily. Branch clonazePAM [...] o f 0.25 mg 00:00: at bedtime Stefany s disintegrat 00 as needed Med ical ing tablet for Branch Anxiety. Immunizations Ordered Immunization Filled Immunization Date Status Commen ts Source Name Name MORALES JORDAN 2020-01-[address] 00:00:00 Hospital Vital Signs Vital Name Observation Time Observation Value Comments Source Systolic blood 2021-05-27 18:00:00 146 mm[Hg] [email or web address] Diastolic blood 2021-05-27 18:00:00 130 mm[Hg] Unive [facility]ity of [email or web address] Heart rate 2021-05-27 18:00:00 85 /min [facility] of [facility] Oxygen saturation in 2021-05-27 18:00:00 97 /min [facility] of Arterial blood by [facility] Pulse oximetry Branch Respiratory rate 2021-05-27 17:52:00 18 /min Univ ersity of [facility] Body temperature 2021-05-27 15:53:00 35.78 Siobhan [facility] ersity of [facility] Body weight 2021-05-27 15:53:00 102.967 kg [facility]i ty [facility] BMI 2021-05-27 15:53:00 34.52 kg/m2 [facility] Respiratory rate 2021-05-05 13:33:00 18 /min [facility] ersity of [facility] Oxygen saturation in 2021-05-05 13:33:00 97 /min [facility] of Arterial blood by [facility] Pulse oximetry Branch Heart rate 2021-05-05 12:44:00 59 /min [facility] Body temperature 2021-05-05 12:44:00 36.5 Siobhan [facility] ersity [facility] Systolic blood 2021-05-05 12:44:00 155 mm[Hg] Univer sity of [email or web address] Diastolic blood 2021-05-05 12:44:00 75 mm[Hg] Unive rsity of [email or web address] Body height 2021-05-05 06:46:00 172.7 cm [facility] Body weight 2021-05-05 06:46:00 102.967 kg [facility] BMI 2021-05-05 06:46:00 34.52 kg/m2 [facility] [place] [facility] Systolic blood 2021-03-31 14:51:24 151 mm[Hg] Univer sity of pressure [place] [facility] Diastolic blood 2021-03-31 14:51:24 98 mm[Hg] Unive rsity of pressure [place] [facility] Heart rate 2021-03-31 14:51:24 92 /min [facility] [place] [facility] Body temperature 2021-03-31 14:51:24 36.67 Siobhan Univ ers[facility] of [place] [facility] Respiratory rate 2021-03-31 14:51:24 18 /min Univ ersity [facility] [place] [facility] Body height 2021-03-31 14:35:00 170.2 cm [facility] [place] [facility] Body weight 2021-03-31 14:35:00 99.791 kg [facility] [place] [facility] BMI 2021-03-31 14:35:00 34.46 kg/m2 [facility] [place] [facility] Oxygen saturation in 2021-03-31 14:35:00 99 /min [facility] Arterial blood by [facility] Pulse oximetry Branch Systolic blood 2021-02-18 16:00:00 110 mm[Hg] Univer sity of pressure [place] [facility] Diastolic blood 2021-02-18 16:00:00 77 mm[Hg] Unive rsity of pressure [place] [facility] Heart rate 2021-02-18 16:00:00 61 /min [facility] [place] [facility] Respiratory rate 2021-02-18 16:00:00 15 /min Univ ersity of [place] [facility] Oxygen saturation in 2021-02-18 16:00:00 98 /min [facility] Arterial blood by [facility] Pulse oximetry Branch Body temperature 2021-02-18 13:14:00 36.33 Siobhan Univ ersity of [place] [facility] Body weight 2021-02-18 13:14:00 99.791 kg [facility] [place] [facility] BMI 2021-02-18 13:14:00 34.45 kg/m2 [facility] [place] [facility] Systolic blood 2021-01-24 13:26:00 137 mm[Hg] Univer sity of pressure [place] [facility] Diastolic blood 2021-01-24 13:26:00 83 mm[Hg] Unive rsity of pressure [place] [facility] Heart rate 2021-01-24 13:26:00 96 /min [facility] [place] [facility] Body temperature 2021-01-24 13:26:00 37.39 Siobhan Univ [facility] [place] [facility] Respiratory rate 2021-01-24 13:26:00 20 /min Univ [facility] [place] [facility] Body weight 2021-01-24 13:26:00 99.791 kg [facility] [place] [facility] BMI 2021-01-24 13:26:00 34.45 kg/m2 [facility] [place] [facility] Oxygen saturation in 2021-01-24 13:26:00 95 /min [facility] Arterial blood by [place] [employer] Pulse oximetry Branch Systolic blood 2020-12-07 15:00:00 121 mm[Hg] Univer sity of pressure [place] [facility] Diastolic blood 2020-12-07 15:00:00 86 mm[Hg] Unive rsity of pressure [place] [facility] Heart rate 2020-12-07 15:00:00 79 /min [facility] [place] [facility] Body temperature 2020-12-07 15:00:00 36.22 Siobhan Univ [facility] [place] [facility] Respiratory rate 2020-12-07 15:00:00 17 /min Univ ers[facility] [place] [facility] Oxygen saturation in 2020-12-07 15:00:00 94 /min [facility] Arterial blood by [place] [employer] Pulse oximetry Branch Body weight 2020-12-07 13:31:00 94.348 kg [facility] [place] [facility] BMI 2020-12-07 13:31:00 32.57 kg/m2 [facility] [place] [facility] Systolic blood 2020-10-28 12:21:00 150 mm[Hg] Univer sity of pressure [place] [facility] Diastolic blood 2020-10-28 12:21:00 78 mm[Hg] Unive rsity of pressure [place] [facility] Heart rate 2020-10-28 12:21:00 73 /min [facility] [place] [facility] Body temperature 2020-10-28 12:21:00 36.56 Siobhan Univ ers[facility] [place] [facility] Respiratory rate 2020-10-28 12:21:00 11 /min Univ ersity of [place] [facility] Oxygen saturation in 2020-10-28 12:21:00 98 /min [facility] Arterial blood by [place] [employer] Pulse oximetry Branch Body weight 2020-10-28 09:00:00 94.666 kg [facility] [place] [facility] BMI 2020-10-28 09:00:00 32.68 kg/m2 [facility] [place] [facility] Body height 2020-10-25 13:00:00 170.2 cm [facility] [place] [facility] Systolic blood 2020-07-29 00:50:00 165 mm[Hg] Univer sity of pressure [place] [facility] Diastolic blood 2020-07-29 00:50:00 103 mm[Hg] Unive rsity of pressure [place] [facility] Heart rate 2020-07-29 00:50:00 100 /min [facility] [place] [facility] Respiratory rate 2020-07-29 00:50:00 20 /min Univ ersity of [place] [facility] Oxygen saturation in 2020-07-29 00:50:00 99 /min [facility] Arterial blood by [place] [employer] Pulse oximetry Branch Body temperature 2020-07-28 18:16:26 36.5 Siobhan Univ ersity of [place] [facility] Body height 2020-07-28 18:14:00 170.2 cm [facility] [place] [facility] Body weight 2020-07-28 18:14:00 83.915 kg [facility] [place] [facility] BMI 2020-07-28 18:14:00 28.98 kg/m2 [facility] [place] [facility] Systolic blood 2020-07-29 00:50:00 165 mm[Hg] Univer sity of pressure [place] [facility] Diastolic blood 2020-07-29 00:50:00 103 mm[Hg] Unive rsity of pressure [place] [facility] Heart rate 2020-07-29 00:50:00 100 /min [facility] [place] [facility] Respiratory rate 2020-07-29 00:50:00 20 /min Univ ersity of [place] [facility] Oxygen saturation in 2020-07-29 00:50:00 99 /min [facility] Arterial blood by [place] [employer] Pulse oximetry Branch Body temperature 2020-07-28 18:16:26 36.5 Siobhan Univ ersity of [place] [facility] Body height 2020-07-28 18:14:00 170.2 cm [facility] [place] [facility] Body weight 2020-07-28 18:14:00 83.915 kg [facility] [place] [facility] BMI 2020-07-28 18:14:00 28.98 kg/m2 [facility] [place] [facility] Systolic blood 2020-06-30 15:00:00 145 mm[Hg] Univer sity of pressure [place] [facility] Diastolic blood 2020-06-30 15:00:00 82 mm[Hg] Unive rsity of pressure [place] [facility] Heart rate 2020-06-30 15:00:00 88 /min [facility] ty [facility] [place] [facility] Respiratory rate 2020-06-30 15:00:00 15 /min Univ ersity of [place] [facility] Oxygen saturation in 2020-06-30 15:00:00 97 /min [facility] of Arterial blood by [place] [employer] Pulse oximetry Branch Body temperature 2020-06-30 11:30:00 36.17 Siobhan Univ ersity of [place] [facility] Body height 2020-06-30 11:30:00 170.2 cm [facility] [place] [facility] Body weight 2020-06-30 11:30:00 83.915 kg [facility] [place] [facility] BMI 2020-06-30 11:30:00 28.98 kg/m2 [facility] [place] [facility] Systolic blood 2020-06-30 15:00:00 145 mm[Hg] Univer sity of pressure [place] [facility] Diastolic blood 2020-06-30 15:00:00 82 mm[Hg] Unive rsity of pressure [place] [facility] Heart rate 2020-06-30 15:00:00 88 /min [facility] [place] [facility] Respiratory rate 2020-06-30 15:00:00 15 /min Univ ersity of [place] [facility] Oxygen saturation in 2020-06-30 15:00:00 97 /min [facility] of Arterial blood by [employer] Pulse oximetry Branch Body temperature 2020-06-30 11:30:00 36.17 Siobhan Univ ersity of [place] [facility] Body height 2020-06-30 11:30:00 170.2 cm [facility] [place] [facility] Body weight 2020-06-30 11:30:00 83.915 kg [facility] [place] [facility] BMI 2020-06-30 11:30:00 28.98 kg/m2 [facility] [place] [facility] Systolic blood 2020-06-23 21:33:48 151 mm[Hg] Univer sity of pressure [place] [facility] Diastolic blood 2020-06-23 21:33:48 98 mm[Hg] Unive rsity of pressure [place] [facility] Heart rate 2020-06-23 21:33:48 98 /min [facility] [place] [facility] Respiratory rate 2020-06-23 21:33:48 16 /min Univ ersity [facility] [place] [facility] Oxygen saturation in 2020-06-23 21:33:48 97 /min [facility] Arterial blood by [place] [employer] Pulse oximetry Branch Body temperature 2020-06-23 19:45:00 37 Siobhan Univ ersity of [place] [facility] Body height 2020-06-23 19:45:00 170.2 cm [facility] [place] [facility] Body weight 2020-06-23 19:45:00 83.915 kg [facility] [place] [facility] BMI 2020-06-23 19:45:00 28.98 kg/m2 [facility] [place] [facility] Systolic blood 2020-06-23 21:33:48 151 mm[Hg] Univer sity of pressure [place] [facility] Diastolic blood 2020-06-23 21:33:48 98 mm[Hg] Unive rsity of pressure [place] [facility] Heart rate 2020-06-23 21:33:48 98 /min [facility] [place] [facility] Respiratory rate 2020-06-23 21:33:48 16 /min Univ ersity of [place] [facility] Oxygen saturation in 2020-06-23 21:33:48 97 /min [facility] Arterial blood by [place] [employer] Pulse oximetry Branch Body temperature 2020-06-23 19:45:00 37 Siobhan Univ ersity of [place] [facility] Body height 2020-06-23 19:45:00 170.2 [...] 2019-11-10 05:41:00 18 /min Univ ersity of [place] [facility] Oxygen saturation in 2019-11-10 05:41:00 100 /min [facility] Arterial blood by [facility] Pulse oximetry Branch Body temperature 2019-11-10 04:15:00 36.61 Siobhan Univ ersity of [place] [facility] Body height 2019-11-10 04:15:00 170.2 cm [facility] [place] [facility] Body weight 2019-11-10 04:15:00 86.183 kg [facility] [place] [facility] BMI 2019-11-10 04:15:00 29.76 kg/m2 [facility] [place] [facility] Systolic blood 2019-11-10 05:41:00 145 mm[Hg] Univer sity of pressure [place] [facility] Diastolic blood 2019-11-10 05:41:00 88 mm[Hg] Unive rsity of pressure [place] [facility] Heart rate 2019-11-10 05:41:00 68 /min [facility] ty [facility] [place] [facility] Respiratory rate 2019-11-10 05:41:00 18 /min Univ ersity of [place] [facility] Oxygen saturation in 2019-11-10 05:41:00 100 /min [facility] Arterial blood by [facility] Pulse oximetry Branch Body temperature 2019-11-10 04:15:00 36.61 Siobhan Univ ersity of [place] [facility] Body height 2019-11-10 04:15:00 170.2 cm [facility] [place] [facility] Body weight 2019-11-10 04:15:00 86.183 kg [facility] [place] [facility] BMI 2019-11-10 04:15:00 29.76 kg/m2 [facility] [place] [facility] Systolic blood 2019-09-29 16:30:00 117 mm[Hg] Univer sity of pressure [place] [facility] Diastolic blood 2019-09-29 16:30:00 78 mm[Hg] Unive rsity of pressure [place] [facility] Heart rate 2019-09-29 16:30:00 56 /min [facility] [place] [facility] Respiratory rate 2019-09-29 16:30:00 18 /min Univ ersity of [place] [facility] Oxygen saturation in 2019-09-29 16:30:00 98 /min [facility] of Arterial blood by [facility] Pulse oximetry Branch Body temperature 2019-09-29 14:39:00 36.56 Siobhan Univ ersity of [place] [facility] Body height 2019-09-29 14:39:00 170.2 cm [facility] [place] [facility] Body weight 2019-09-29 14:39:00 86.183 kg [facility] [place] [facility] BMI 2019-09-29 14:39:00 29.76 kg/m2 [facility] [place] [facility] Systolic blood 2019-09-29 16:30:00 117 mm[Hg] Univer sity of pressure [place] [facility] Diastolic blood 2019-09-29 16:30:00 78 mm[Hg] Unive rsity of pressure [place] [facility] Heart rate 2019-09-29 16:30:00 56 /min [facility]i ty [facility] [place] [facility] Respiratory rate 2019-09-29 16:30:00 18 /min Univ ersity of [facility] Oxygen saturation in 2019-09-29 16:30:00 98 /min [facility] of Arterial blood by [place] [employer] Pulse oximetry Branch Body temperature 2019-09-29 14:39:00 36.56 Siobhan Univ ersity of [place] [facility] Body height 2019-09-29 14:39:00 170.2 cm [facility] [place] [facility] Body weight 2019-09-29 14:39:00 86.183 kg [facility] [place] [facility] BMI 2019-09-29 14:39:00 29.76 kg/m2 [facility] [place] [facility] Systolic blood 2019-06-16 13:09:00 153 mm[Hg] Univer sity of pressure [place] [facility] Diastolic blood 2019-06-16 13:09:00 82 mm[Hg] Unive rsity of pressure [place] [facility] Respiratory rate 2019-06-16 13:09:00 18 /min Univ ersity of [place] [facility] Body height 2019-06-16 13:09:00 170.2 cm [facility] [place] [facility] Body weight 2019-06-16 13:09:00 88.451 kg [facility] [place] [facility] BMI 2019-06-16 13:09:00 30.54 kg/m2 [facility] [place] [facility] Oxygen saturation in 2019-06-16 13:09:00 98 /min [facility] Arterial blood by [employer] Pulse oximetry Branch Systolic blood 2019-06-16 13:09:00 153 mm[Hg] Univer sity of pressure [place] [facility] Diastolic blood 2019-06-16 13:09:00 82 mm[Hg] Unive rsity of pressure [place] [facility] Respiratory rate 2019-06-16 13:09:00 18 /min Univ ersity of [place] [facility] Body height 2019-06-16 13:09:00 170.2 cm [facility] [place] [facility] Body weight 2019-06-16 13:09:00 88.451 kg [facility] [place] [facility] BMI 2019-06-16 13:09:00 30.54 kg/m2 [facility] [place] [facility] Oxygen saturation in 2019-06-16 13:09:00 98 /min [facility] of Arterial blood by [facility]ofi Pulse oximetry Branch Systolic blood 2019-06-15 17:26:00 190 mm[Hg] Univer sity of pressure [place] [facility] Diastolic blood 2019-06-15 17:26:00 122 mm[Hg] Unive rsity of pressure [place] [facility] Heart rate 2019-06-15 17:26:00 97 /min [facility] [place] [facility] Body temperature 2019-06-15 17:26:00 36.56 Siobhan Univ ersity of [place] [facility] Respiratory rate 2019-06-15 17:26:00 16 /min Univ ersity of [place] [facility] Body weight 2019-06-15 17:26:00 90.266 kg [facility] [place] [facility] BMI 2019-06-15 17:26:00 31.17 kg/m2 [facility] [place] [facility] Oxygen saturation in 2019-06-15 17:26:00 97 /min [facility] of Arterial blood by [facility] Pulse oximetry Branch Systolic blood 2019-06-15 17:26:00 190 mm[Hg] Univer sity of pressure [place] [facility] Diastolic blood 2019-06-15 17:26:00 122 mm[Hg] Unive rsity of pressure [place] [facility] Heart rate 2019-06-15 17:26:00 97 /min [facility] [place] [facility] Body temperature 2019-06-15 17:26:00 36.56 Siobhan Univ ersity of [place] [facility] Respiratory rate 2019-06-15 17:26:00 16 /min Univ ersity of [place] [facility] Body weight 2019-06-15 17:26:00 90.266 kg [facility] [place] [facility] BMI 2019-06-15 17:26:00 31.17 kg/m2 [facility] [place] [facility] Oxygen saturation in 2019-06-15 17:26:00 97 /min [facility] Arterial blood by [facility] Pulse oximetry Branch Systolic blood 2019 16:22:00 116 mm[Hg] Univer sity of pressure [place] [facility] Diastolic blood 2019 16:22:00 78 mm[Hg] Unive rsity of pressure [place] [facility] Heart rate 2019 16:22:00 84 /min [facility] [place] [facility] Body temperature 2019 16:22:00 37 Siobhan Univ ersity of [place] [facility] Respiratory rate 2019 16:22:00 17 /min Univ ersity of [place] [facility] Body height 2019 16:22:00 170.2 cm [facility] [place] [facility] Body weight 2019 16:22:00 90.357 kg [facility] [place] [facility] BMI 2019 16:22:00 31.20 kg/m2 [facility] ty [facility] [place] [facility] Oxygen saturation in 2019 16:22:00 96 /min [facility] Arterial blood by [facility] Pulse oximetry Branch Systolic blood 2019 16:22:00 116 mm[Hg] Univer sity of pressure [place] [facility] Diastolic blood 2019 16:22:00 78 mm[Hg] Unive rsity of pressure [place] [facility] Heart rate 2019 16:22:00 84 /min [facility] [place] [facility] Body temperature 2019 16:22:00 37 Siobhan Univ ersity of [place] [facility] Respiratory rate 2019 16:22:00 17 /min Univ ers[facility] [place] [facility] Body height 2019 16:22:00 170.2 cm [facility] [place] [facility] Body weight 2019 16:22:00 90.357 kg [facility] [place] [facility] BMI 2019 16:22:00 31.20 kg/m2 [facility] [place] [facility] Oxygen saturation in 2019 16:22:00 96 /min [facility] Arterial blood by [facility] Pulse oximetry Branch Heart rate 2019-01-25 00:00:00 79 /min [facility] [place] [facility] Respiratory rate 2019-01-25 00:00:00 15 /min Univ ersity of [place] [facility] Systolic blood 2019-01-24 23:00:00 122 mm[Hg] Univer sity of pressure [place] [facility] Diastolic blood 2019-01-24 23:00:00 68 mm[Hg] Unive rsity of pressure [place] [facility] Oxygen saturation in 2019-01-24 23:00:00 93 /min [facility] Arterial blood by [place] [employer] Pulse oximetry Branch Body temperature 2019-01-24 20:15:00 36.94 Siobhan Univ ersity of [place] [facility] Body weight 2019-01-24 20:15:00 86.183 kg [facility] [place] [facility] BMI 2019-01-24 20:15:00 28.89 kg/m2 [facility] [place] [facility] Heart rate 2019-01-25 00:00:00 79 /min [facility] [place] [facility] Respiratory rate 2019-01-25 00:00:00 15 /min Univ ersity of [place] [facility] Systolic blood 2019-01-24 23:00:00 122 mm[Hg] Univer sity of pressure [place] [facility] Diastolic blood 2019-01-24 23:00:00 68 mm[Hg] Unive rsity of pressure [place] [facility] Oxygen saturation in 2019-01-24 23:00:00 93 /min [facility] Arterial blood by [place] [employer] Pulse oximetry Branch Body temperature 2019-01-24 20:15:00 36.94 Siobhan Univ ersity of [place] [facility] Body weight 2019-01-24 20:15:00 86.183 kg [facility] [place] [facility] BMI 2019-01-24 20:15:00 28.89 kg/m2 [facility] [place] [facility] Systolic blood 2018-12-22 00:30:00 142 mm[Hg] Univer sity of pressure [place] [facility] Diastolic blood 2018-12-22 00:30:00 90 mm[Hg] Unive rsity of pressure [place] [facility] Heart rate 2018-12-22 00:30:00 86 /min [facility] [place] [facility] Respiratory rate 2018-12-22 00:30:00 18 /min Univ ersity [facility] [place] [facility] Oxygen saturation in 2018-12-22 00:30:00 97 /min [facility] Arterial blood by [place] [employer] Pulse oximetry Branch Body temperature 2018-12-21 21:07:00 37.11 Siobhan Univ ersity [facility] [place] [facility] Body weight 2018-12-21 21:07:00 86.183 kg [facility] BMI 2018-12-21 21:07:00 28.89 kg/m2 [facility] Systolic blood 2018-12-22 00:30:00 142 mm[Hg] Univer sity of pressure [facility] Diastolic blood 2018-12-22 00:30:00 90 mm[Hg] Unive [facility]ity of [email or web address] Heart rate 2018-12-22 00:30:00 86 /min [facility] Respiratory rate 2018-12-22 00:30:00 18 /min [facility] Oxygen saturation in 2018-12-22 00:30:00 97 /min [facility] Arterial blood by [facility] Pulse oximetry [place] Body temperature 2018-12-21 21:07:00 37.11 Siobhan [facility] weight 2018-12-21 21:07:00 86.183 kg [facility] BMI 2018-12-21 21:07:00 28.89 kg/m2 [facility] Body weight 2020-02-01 12:04:00 85.548 kg [facility] BMI 2020-02-01 12:04:00 29.54 kg/m2 [facility] Systolic blood 2020-02-01 11:09:39 138 mm[Hg] Method ist [facility] pressure Diastolic blood 2020-02-01 11:09:39 78 mm[Hg] [facility] pressure Heart rate 2020-02-01 11:09:39 62 /min [facility] Body temperature 2020-02-01 11:09:39 36.5 Siobhan [facility] Respiratory rate 2020-02-01 11:09:39 18 /min [facility] Oxygen saturation in 2020-02-01 11:09:39 98 /min [facility] Arterial blood by Pulse oximetry Body height 2020-01-28 19:00:00 170.2 cm [facility] Procedures Procedure Date / Time Performing Clinician Source Performed XR CHEST 1 VW 2021-05-27 16:27:27 Jennifer Shea [facility] LIPASE 2021-05-27 15:59:00 Shabbir [facility] TROPONIN I 2021-05-27 15:59:00 Shabbir Jennifer [facility] COMP. METABOLIC PANEL 2021-05-27 15:59:00 Jennifer Shea [facility] ([id number]) Medical Branch CBC WITH DIFF 2021-05-27 15:59:00 Jennifer Shea Box [facility] PROTHROMBIN TIME / INR 2021-05-27 15:59:00 Jennifer Shea [facility] ACTIVATED PARTIAL THRMPLAS 2021-05-27 15:59:00 Jennifer Shea [facility] [place] [facility] URINALYSIS 2021-05-27 15:59:00 Jennifer Shea [facility] COVID-19 (ID NOW RAPID 2021-05-27 15:59:00 Jennifer Shea [facility] TESTING) [facility] [place] URINE DRUG (IMMUNOASSAY) - 2021-05-27 15:59:00 Jennifer Shea [facility] COMPREHENSIVE DRUG SCREEN Medica l Branch W/O REFLEX NOTICE OF PRIVACY 2021-05-27 15:50:40 Doctor Unassigned, [facility] PRACTICES [facility] CONSENT/REFUSAL FOR 2021-05-27 15:50:22 Doctor Unassigned, [facility] DIAGNOSIS AND TREATMENT [facility] [place] TROPONIN I 2021-05-05 12:18:00 Laura Pedraza [facility] CREATINE KINASE 2021-05-05 09:25:00 [facility] TROPONIN I 2021-05-05 09:25:00 John paco [facility] PROCALCITONIN 2021-05-05 09:25:00 Laura Pedraza [facility] PHOSPHORUS 2021-05-05 02:50:00 John paco [facility] URIC ACID 2021-05-05 02:50:00 John paco [facility] MAGNESIUM 2021-05-05 02:50:00 [facility] TROPONIN I 2021-05-05 02:50:00 Shelley Shahid [facility] THYROID STIMULATING 2021-05-05 02:50:00 Laura Pedraza [facility] LIPID PANEL (75643)(TOTAL 2021-05-05 02:50:00 Laura Pedraza [facility] CHOLESTEROL, Medical Branch TRIGLYCERIDES, HDL) ETHANOL 2021-05-05 02:50:00 Laura Pedraza [facility] N-TERMINAL PRO-BNP 2021-05-05 02:50:00 Laura Pedraza [facility] XR CHEST 1 VW 2021-05-05 00:46:11 Ciera Seymour [facility] LIPASE 2021-05-05 00:37:00 Ciera Seymour [facility] TROPONIN I 2021-05-05 00:37:00 Ciera Seymour [facility] COMP. METABOLIC PANEL 2021-05-05 00:37:00 Ciera Seymour [facility] ([id number]) Medical Branch CBC WITH DIFF 2021-05-05 00:37:00 Ciera Seymour [facility] GLYCOSYLATED HEMOGLOBIN 2021-05-05 00:37:00 Laura Pedraza [facility] (A1C) Medical Branch PROTHROMBIN TIME / INR 2021-05-05 00:37:00 Ciera Seymour [facility] D-DIMER 2021-05-05 00:37:00 Shelley Shahid [facility] ACTIVATED PARTIAL THRMPLAS 2021-05-05 00:37:00 Ciera Seymour [facility] [place] [facility] COVID-19 (ID NOW RAPID 2021-05-05 00:37:00 Ciera Seymour [facility] TESTING) Medical Branch XR HAND 3+ VW RIGHT 2021-03-31 14:51:57 Ciera Seymour [facility] CONSENT/REFUSAL FOR 2021-03-31 14:35:47 Doctor Unassigned, [facility] DIAGNOSIS AND TREATMENT [facility] XR CHEST 1 VW 2021-02-18 13:49:48 Singer [facility] MAGNESIUM 2021-02-18 13:35:00 Singer [facility] TROPONIN I 2021-02-18 13:35:00 Singer [facility] COMP. METABOLIC PANEL 2021-02-18 13:35:00 Singer Johan [facility] ([id number]) Medical Branch LIPID PANEL (27841)(TOTAL 2021-02-18 13:35:00 Johan Porras [facility] CHOLESTEROL, Medical Branch TRIGLYCERIDES, HDL) CBC WITH DIFF 2021-02-18 13:35:00 Singer [facility] D-DIMER 2021-02-18 13:35:00 Singer [facility] ADC,CLC OR LCC ONLY - 2021-02-18 13:35:00 Singer Johan [facility] INFLUENZA A & B DIRECT Medical [place] ANTIGEN N-TERMINAL PRO-BNP 2021-02-18 13:35:00 Singer [facility] Medical Branch COVID-19 (ID NOW RAPID 2021-02-18 13:35:00 Singer [facility] TESTING) Medical Branch CONSENT/REFUSAL FOR 2021-02-18 13:07:47 Doctor Wanda, [facility] DIAGNOSIS AND TREATMENT [facility] XR CHEST 1 VW 2021-01-24 14:27:39 Singer [facility] COMP. METABOLIC PANEL 2021-01-24 14:22:00 Johan Porras [facility] ([id number]) Medical Branch CBC WITH DIFF 2021-01-24 14:22:00 Singer [facility] URINALYSIS 2021-01-24 14:22:00 Singer [facility] COVID-19 (ID NOW RAPID 2021-01-24 13:30:00 Singer [facility] TESTING) Medical Branch NOTICE OF PRIVACY 2021-01-24 13:21:27 Doctor Wanda, [facility] PRACTICES [facility] CONSENT/REFUSAL FOR 2021-01-24 13:20:24 Doctor Unaliat, [facility] DIAGNOSIS AND TREATMENT [facility] LIPASE 2020-12-07 13:44:00 Jennifer Shea [facility] COMP. METABOLIC PANEL 2020-12-07 13:44:00 Jennfier Shea [facility] ([id number]) [facility] Branch CBC WITH DIFF 2020-12-07 13:44:00 Jennifer Shea [facility] URINALYSIS 2020-12-07 13:44:00 Jennifer Shea [facility] ADC, CLC OR LCC ONLY - RSV 2020-12-07 13:44:00 Jennifer Shea [facility] COVID-19 (ID NOW RAPID 2020-12-07 13:44:00 Jennifer Shea [facility] TESTING) [facility] [place] URINE DRUG (IMMUNOASSAY) - 2020-12-07 13:44:00 Jennifer Shea [facility] COMPREHENSIVE DRUG SCREEN Medica l Branch W/O REFLEX CONSENT/REFUSAL FOR 2020-12-07 13:20:39 Doctor Unassigned, [facility] DIAGNOSIS AND TREATMENT [facility] COMP. METABOLIC PANEL 2020-10-26 09:48:00 Laura Pedraza [facility] ([id number]) Medical Branch MAGNESIUM 2020-10-25 14:14:00 Alvin Baca [facility] BASIC METABOLIC PANEL (NA, 2020-10-25 14:14:00 Alvin Baca [facility] K, CL, CO2, GLUCOSE, BUN, Medica l [place] CREATININE, CA) US ABDOMEN COMPLETE 2020-10-24 23:47:12 Alvin Baca [facility] TRANSTHORACIC ECHO (TTE) 2020-10-24 20:59:43 Alvin Baca [facility] COMPLETE W/ CONTRAST [facility] TROPONIN I 2020-10-24 16:13:00 Alvin Baca [facility] HB ECG ROUTINE & RHYTHM 2020-10-24 16:02:52 Alvin Baca [facility] CRITICAL CARE 2020-10-24 13:45:35 Jennifer Shea [facility] FREE T4 2020-10-24 12:50:00 Jennifer Shea [facility] COVID-19 (ID NOW RAPID 2020-10-24 12:43:00 Jennifer Shea [facility]) Medical Branch LAB ONLY COVID 2020-10-24 12:43:00 Shea, [facility] INTERPRETATION [facility] URINE DRUG (IMMUNOASSAY) - 2020-10-24 11:52:00 Johan Porras [facility] COMPREHENSIVE DRUG SCREEN Medica l Branch URINALYSIS 2020-10-24 11:52:00 Johan Porras [facility] CT CHEST PULMONARY 2020-10-24 11:46:10 Johan Porras [facility] ANGIOGRAM Medical Branch POCT GLUCOSE (AUTOMATED) 2020-10-24 11:19:00 [facility] CREATINE KINASE 2020-10-24 11:18:00 Shabbir [facility] LIPASE 2020-10-24 11:18:00 Shabbir [facility] MAGNESIUM 2020-10-24 11:18:00 Denis [facility] TROPONIN I 2020-10-24 11:18:00 Singer [facility] THYROID STIMULATING 2020-10-24 11:18:00 Jennifer Shea [facility] HORMONE [facility] Branch COMP. METABOLIC PANEL 2020-10-24 11:18:00 Johan Porras [facility] ([id number]) Medical Branch ETHANOL 2020-10-24 11:18:00 Shabbir [facility] CBC WITH DIFF 2020-10-24 11:18:00 Singer [facility] PROTHROMBIN TIME / INR 2020-10-24 11:18:00 Johan Porras [facility] D-DIMER 2020-10-24 11:18:00 Singer [facility] ACTIVATED PARTIAL THRMPLAS 2020-10-24 11:18:00 Johan Porras [facility] N-TERMINAL PRO-BNP 2020-10-24 11:18:00 Johan Porras [facility] HB ECG ROUTINE & RHYTHM 2020-10-24 11:12:38 Johan Porras [facility] STRIP [facility] EMERGENCY DEPARTMENT 2020-10-24 05:01:00 Doctor Unassigned, [facility] DOCUMENTS [facility] URINALYSIS 2020-07-28 18:29:00 Jennifer Shea [facility] ADC / LCC - DRUG SCREEN 2020-07-28 18:29:00 Jennifer Shea [facility] TRIAGE [facility] TROPONIN I 2020-07-28 18:23:00 Jennifer Shea [facility] FREE T4 2020-07-28 18:23:00 Jennifer Shea [facility] THYROID STIMULATING 2020-07-28 18:23:00 Jennifer Shea [facility] HORMONE [facility] HEPATIC FUNCTION PANEL 2020-07-28 18:23:00 Jennifer Shea [facility] ([id number]) (ALB,T.PRO,BILI Medical Branch T,BU/BC,ALT,AST,ALK PHOS) BASIC METABOLIC PANEL (NA, 2020-07-28 18:23:00 Jennifer Shea [facility] K, CL, CO2, GLUCOSE, BUN, Medica l Branch CREATININE, CA) CBC WITH DIFF 2020-07-28 18:23:00 Jennifer Shea [facility] PROTHROMBIN TIME / INR 2020-07-28 18:23:00 Jennifer Shea [facility] ACTIVATED PARTIAL THRMPLAS 2020-07-28 18:23:00 Jennifer Shea [facility] N-TERMINAL PRO-BNP 2020-07-28 18:23:00 Jennifer Shea [facility] COVID-19 (ID NOW RAPID 2020-07-28 18:23:00 Jennifer Shea [facility] TESTING) Medical Branch HB ECG ROUTINE & RHYTHM 2020-07-28 18:15:15 Jennifer Shea [facility] STRIP [facility] CONSENT/REFUSAL FOR 2020-07-28 18:07:43 Doctor Unassigned, [facility] DIAGNOSIS AND TREATMENT [facility] TROPONIN I 2020-06-30 15:28:00 Jennifer Shea [facility] TROPONIN I 2020-06-30 13:36:00 Jennifer Shea [facility] BASIC METABOLIC PANEL (NA, 2020-06-30 12:02:00 Ciera Seymour [facility] K, CL, CO2, GLUCOSE, BUN, Medica l Branch CREATININE, CA) CBC WITH DIFF 2020-06-30 12:02:00 Ciera Seymour [facility] y [facility] [place] XR ANKLE <3 VW LEFT 2020-06-23 20:29:12 Shelley Shahid [facility] ty [facility] [place] XR FOOT <3 VW LEFT 2020-06-23 20:29:12 Shelley Shahid [facility] NOTICE OF PRIVACY 2020-06-23 19:41:37 Doctor Unassigned, [facility] PRACTICES [facility] CONSENT/REFUSAL FOR 2020-06-23 19:41:09 Doctor Unassigned, [facility] DIAGNOSIS AND TREATMENT [facility] [place] HEMOGLOBIN A1C 2020-01-29 11:10:00 [facility] LIPID PANEL 2020-01-29 11:10:00 [facility] HEPATITIS ACUTE PANEL 2020-01-29 11:10:00 [facility] GGT 2020-01-29 11:10:00 [facility] MAGNESIUM LEVEL 2020-01-29 11:10:00 [facility] HIV AG/AB COMBINATION 2020-01-29 11:10:00 [facility] XR CHEST 1 VW 2019-11-10 04:30:10 Clovis Thomas [facility] TROPONIN I 2019-11-10 04:20:00 Clovis Thomas [facility] COMP. METABOLIC PANEL 2019-11-10 04:20:00 Clovis Thomas [facility] ([id number]) [facility] CBC WITH DIFFERENTIAL 2019-11-10 04:20:00 Clovis Thomas [facility] PROTHROMBIN TIME / INR 2019-11-10 04:20:00 Clovis Thomas [facility] ACTIVATED PARTIAL THRMPLAS 2019-11-10 04:20:00 [facility] 2019-11-10 04:19:36 Clovis Thomas [facility] COMP. METABOLIC PANEL 2019-09-29 15:23:00 [facility] ([id number]) [facility] CBC WITH DIFFERENTIAL 2019-09-29 15:23:00 [facility] URINALYSIS 2019-09-29 15:23:00 [facility] CONSENT/REFUSAL FOR 2019-09-29 14:19:48 Doctor Unasschrista, [facility] DIAGNOSIS AND TREATMENT [facility] [place] NOTICE OF PRIVACY 2019-09-29 14:19:33 Doctor Unassigned, [facility] PRACTICES [facility] [place] EKG-12 LEAD 2019-06-16 13:22:02 Jennifer Shea [facility] LIPASE 2019-06-16 13:22:00 Shabbir [facility] TROPONIN I 2019-06-16 13:22:00 Jennifer Shea [facility] COMP. METABOLIC PANEL 2019-06-16 13:22:00 Jennifer Shea [facility] ([id number]) [facility] CBC WITH DIFFERENTIAL 2019-06-16 13:22:00 Jennifer Shea [facility] PROTHROMBIN TIME / INR 2019-06-16 13:22:00 Jennifer Shea [facility] ACTIVATED PARTIAL THRMPLAS 2019-06-16 13:22:00 Jennifer Shea [facility] XR CHEST 1 VW 2019-06-15 18:27:52 Shelley Shahid [facility] MAGNESIUM 2019-06-15 18:22:00 Zehra [facility] TROPONIN I 2019-06-15 18:22:00 Shelley Shahid [facility] COMP. METABOLIC PANEL 2019-06-15 18:22:00 Shelley Shahid [facility] ([id number]) [facility] CBC WITH DIFFERENTIAL 2019-06-15 18:22:[address] [facility] EKG-12 LEAD 2019-06-15 18:10:41 Shelley Shahid [facility] NOTICE OF PRIVACY 2019-06-15 17:21:46 Doctor Unassigned, [facility] PRACTICES [facility] CONSENT/REFUSAL FOR 2019-06-15 17:16:40 Doctor Unassigned, [facility] DIAGNOSIS AND TREATMENT [facility] POCT GRP A STREP 2019 16:24:[address] [facility] (MOLECULAR) [facility] POCT FLU A AND B 2019 16:23:00 [facility] NO SHOW OR MISSED 2019 16:08:34 Doctor Unassigned, [facility] APPOINTMENT POLICY [facility] h ACKNOWLEDGEMENT LIPASE 2019-01-24 21:38:00 Jerry Martin [facility] TROPONIN I 2019-01-24 21:38:00 Jerry Martin [facility] COMP. METABOLIC PANEL 2019-01-24 21:38:00 Jerry Martin [facility] ([id number]) [facility] [place] URINALYSIS 2019-01-24 21:38:00 Jerry Martin [facility] ADC / LCC - DRUG SCREEN 2019-01-24 21:38:00 Jerry Martin [facility] TRIAGE Medical Branch CBC WITH DIFFERENTIAL 2019-01-24 21:38:00 Jerry Martin [facility] EKG-12 LEAD 2019-01-24 21:01:42 Jerry Martin [facility] CONSENT/REFUSAL FOR 2019-01-24 19:55:39 Doctor Unassigned, [facility] DIAGNOSIS AND TREATMENT [facility] [place] XR ABDOMEN ACUTE SERIES 2018-12-21 23:23:19 Demond Daniels [facility] LIPASE 2018-12-21 22:19:00 Jeremiah Demond [facility] MAGNESIUM 2018-12-21 22:19:00 Jeremiah Demond [facility] COMP. METABOLIC PANEL 2018-12-21 22:19:00 Demond Daniels [facility] ([id number]) [facility] [place] CBC WITH DIFFERENTIAL 2018-12-21 22:19:00 Jeremiah Demond [facility] URINALYSIS 2018-12-21 22:19:00 Jeremiah Demond [facility] CONSENT/REFUSAL FOR 2018-12-21 20:57:44 Doctor Unassigned, [facility] DIAGNOSIS AND TREATMENT [facility] Encounters Start End Encounter Admission Attending Care Care Encounter Source Date/Time Date/Time Type Type Clinicians Facility Department ID 2021-03-12 Emergency [facility] [id number] Univers 05:38:42 [facility]y of [facility] 2021-03-11 Emergency [facility] [id number] Univers 23:00:35 ity of [facility] 2021-03-11 Emergency [facility] [id number] Univers 11:56:05 ity of [facility] 2021-03-11 Emergency [facility] [id number] Univers 01:30:29 ity of [facility] 2021-03-10 [facility] [id number] Univers 07:20:38 ity of [facility] 2021-03-10 Emergency [facility] [id number] Univers 00:13:36 ity of [facility] 2021-03-09 Emergency [facility] [id number] Univers 23:32:17 ity of [facility] 2021-03-08 Emergency [facility] [id number] Univers 04:08:07 ity of [facility] 2021-03-08 Emergency [facility] [id number] Univers 00:53:49 ity of [facility] 2021-03-07 [facility] [id number] Univers 21:49:21 ity of [facility] 2021-05-27 2021-05-27 [facility] [id number] Univers 09:58:00 12:18:00 JENNIFER ity of [facility] 2021-05-27 2021-05-27 Emergency [facility] [id number] Univers 09:58:00 12:18:00 Jennifer PATTON [id number] i ty of [place] 4.2.7.2.686 [facility] [id number] [place] [address] Branch 2021-05-27 2021-05-27 Orders Doctor MCGINNIS [id number] Univers 00:00:00 00:00:00 Only UnassignedKAY [id number] ity of [facility] 4.2.7.2.686 [facility] [id number] [facility] 009 Branch 2021-05-04 2021-05-05 Outpatient X KRISTINA [facility] ERIC [id number] Univers 18:35:00 12:45:00 JON ity [facility] 2021-05-04 2021-05-05 Emergency Shelley Shahid [facility] 1.2.840. [id number] Univers 18:35:00 12:45:00 Laura Pedraza [id number] ity of [facility] 4.2.7.2.686 [facility] [id number] [facility] 081 Branch 2021-03-31 2021-03-31 Emergency [facility] [id number] Univers 08:36:00 10:17:00 CIERA itregine [facility] 2021-03-31 2021-03-31 [facility] [id number] Univers 08:36:00 10:17:00 Ciera PATTON [id number] ity of [place] 4.2.7.2.686 [facility] [id number] [place] 840414 Branch 2021-02-18 2021-02-18 Emergency [facility] [id number] Univers 08:21:00 11:20:00 Johan Ptaton [id number] i ty of [place] 4.2.7.2.686 [facility] [id number] [place] [address] Branch 2021-01-24 2021-01-24 Emergency [facility] [id number] Univers 08:32:00 10:23:00 Johan Patton [id number] i ty of [place] 4.2.7.2.686 [facility] [id number] [place] [address] Branch 2020-12-07 2020-12-07 Emergency [facility] [id number] Univers 08:25:00 10:28:00 Jennifer Patton [id number] i ty of [place] 4.2.7.2.686 [facility] [id number] [facility] 084 Branch 2020-10-30 2020-10-30 Transition Nisha Aguilar [id number] Univers 00:00:00 00:00:00 of Karley Reid [id number] ity of [place] 4.2.7.2.686 [facility] [id number] [facility] 403 Branch 2020-10-24 2020-10-28 [facility] Johan Porras [facility] [id number] Univers 06:11:00 10:50:00 Encounter Alvin Baca [id number] ity of [place] 4.2.7.2.686 [facility] [id number] [facility] 080 Branch 2020-07-28 2020-07-28 Emergency [facility] [id number] Univers 13:17:00 20:00:00 Jennifer Patton [id number] i ty of [place] 4.2.7.2.686 [facility] [id number] [facility] 084 Branch 2020-07-28 2020-07-28 [facility] [id number] 13:17:00 20:00:00 Jennifer Patton [id number] [place] 4.2.7.2.686 [place] [id number] [facility] 2020-06-30 2020-06-30 Emergency [facility] [id number] [facility] 05:26:00 10:11:00 Ciera Patton [id number] ity of [place] 4.2.7.2.686 [facility] [id number] [place] 840414 Branch 2020-06-30 2020-06-30 Emergency [facility] 1.2.840.114 [id number] 05:26:00 10:11:00 Ciera Patton [id number] [place] 4.2.7.2.686 [place] [id number] [facility] 2020-06-23 2020-06-23 Emergency Shelley Shahid [facility] 1.2.840.114 [id number] [facility] 13:46:00 15:46:00 Margarita [place] [id number] i ty of [place] 4.2.7.2.686 [facility] [id number] [address] 2020-06-23 2020-06-23 Emergency Shelley Shahid [facility] 1.2.840.114 [id number] 13:46:00 15:46:00 Margarita [place] [id number] [place] [address] [place] [address] [id number] [facility] 2020-01-28 2020-02-01 [facility] [id number] Methodi 14:08:19 14:20:00 Encounter Nelly AlasJulia [id number] 3.430.2.7 Hospit a [id number] l .8 2019-11-09 2019-11-10 [facility] [id number] [facility] 23:06:12 01:26:00 Clovis Patton [id number] i ty of [place] 4.2.7.2.[address] [place] [id number] 2019-11-09 2019-11-10 [facility] [id number] 23:06:12 01:26:00 Clovis Patton [id number] [place] [address].7.[address] [place] [address] [id number] [facility] 2019-09-29 2019-09-29 Emergency Porras, [facility] [id number] [facility] 09:39:50 11:47:00 Johan Patton [id number] i ty of [place] 4.2.7.2.[address] [place] [id number] 2019-09-29 2019-09-29 Emergency Porras, [facility] [id number] 09:39:50 11:47:00 Johan [place] [id number] [place] 4.2.7.2.686 [place] [id number] [facility] 2019-06-16 2019-06-16 Emergency [facility] [id number] Univers 07:08:27 08:57:00 Joesph Patton [id number] ity of [place] 4.2.7.2.686 [facility] [id number] [address] 2019-06-16 2019-06-16 Emergency X [facility]ENDING S[facility] TO [facility] ERT [id number] Univers 07:08:27 08:57:00 JOESPH ity [facility] 2019-06-16 2019-06-16 [facility] [id number] 07:08:27 08:57:00 Joesph Patton [id number] [place] 4.2.7.2.686 [place] [id number] [facility] 2019-06-15 2019-06-15 Emergency [facility] 1.2.840.114 [id number] Univers 11:30:00 13:30:00 Margarita Sal [id number] i ty of [place] 4.2.7.2.686 [facility] [id number] [address] 2019-06-15 2019-06-15 Emergency [facility], [facility] 1.2.840.114 [id number] 11:30:00 13:30:00 Margarita Sal 350.1.13.10 [place] 4.2.7.2.686 [place] [id number] [facility] 2019-06-15 2019-06-15 Orders Doctor MCGINNIS 1.2.840.114 [id number] Univers 00:00:00 00:00:00 Only Unassigned, KAY 350.1.13.10 ity of [facility] 4.2.7.2.686 [facility] [id number] [place] [address] Branch 2019-06-15 2019-06-15 Orders Doctor MCGINNIS [id number] 00:00:00 00:00:00 Only Unassigned, KAY 350.1.13.10 [facility] 4.2.7.2.686 [id number] 009 2019-06-06 2019-06-06 Letter Clinic, [facility] 1.2.840.114 [id number] Univers 00:00:00 00:00:00 (Out) Neurology Y HEALTH 350.1.13.10 ity of [facility] 4.2.7.2.686 [place] [id number] [facility] 092 [place] 2019-06-06 2019-06-06 Letter Clinic, [facility] 1.2.840.114 [id number] 00:00:00 00:00:00 (Out) Neurology Y HEALTH 350.1.13.10 [facility] 4.2.7.2.686 [id number] 2 2019 2019 Urgent LevonJuly [facility] 1.2.840.114 [id number] Univers 10:16:26 10:55:54 Care Unknown, Attending Health 350.1.13.10 ity of Surgical 4.2.7.2.686 Manfred as Specialti [phone] Va dical es [address] [place] 2019 2019 [facility] Levon [facility] 1.2.840.114 [id number] 10:16:26 10:55:54 Care [facility] Health 350.1.13.10 Surgical 4.2.7.2.686 Specialti [phone] es [address] [place] 2019 2019 Orders Doctor MCGINNIS 1.2.840.114 [id number] Univers 00:00:00 00:00:00 Only Unassigned, KAY 350.1.13.10 ity of [place] [facility] 4.2.7.2.686 Manfred as [phone] [facility] [address] 2019 2019 Orders Doctor MCGINNIS 1.2.840.114 [id number] 00:00:00 00:00:00 Only Unassigned, KAY 350.1.13.10 [facility] 4.2.7.2.686 [id number] 009 2019-05-15 2019-05-15 Emergency X JEREMIAH [facility] ERT [id number] Univers 20:18:44 22:11:00 DEMOND farley of [facility] 2019-01-24 2019-01-24 Emergency [facility] [id number] [facility] 15:49:15 22:27:00 Jerry Patton 350.1.13.10 i ty of [place] 4.2.7.2.686 [facility] [phone] [address] 2019-01-24 2019-01-24 Emergency [facility] [id number] 15:49:15 22:27:00 Jerry Patton 350.1.13.10 [place] [address] [place] [address] [phone] [facility] 2019-01-24 2019-01-24 Orders Doctor MCGINNIS 1.2.840.114 [id number] Univers 00:00:00 00:00:00 Only Unassigned, KAY 350.1.13.[address] [place] [facility] 4.[address] [place] [phone] 2019-01-24 2019-01-24 Orders Doctor MCGINNIS 1.2.840.114 [id number] 00:00:00 00:00:00 Only Unassigned, KAY 350.1.13.[address] [place] [facility] 42.7.2.68 [id number] [facility] 2018-12-21 2018-12-21 [facility] [id number] [id number] [facility] 17:07:20 19:42:00 Demond Patton 350.1.13.10 i ty of [place] 4.2.7.[address] [place] [phone] 2018-12-21 2018-12-21 [facility] [id number] 17:07:20 19:42:00 Demond Patton 350.1.13.10 [place] [address] [place] [address] [id number] 2018-12-21 2018-12-21 Orders Doctor MCGINNIS 1.2.840.114 [id number] Univers 00:00:00 00:00:00 Only Unassigned, KAY 350.1.13.10 ity of [place] [facility] 4.2.7.2.686 Manfred as [phone] [facility] [address] 2018-12-21 2018-12-21 Orders Doctor RAS 1.2.840.114 [id number] 00:00:00 00:00:00 Only Unassigned, KAY 350.1.13.10 [facility] 4.2.7.2.686 [id number] 009 Results Test Description Test Time Test Comments Results Result Comments Source TROPONIN I 2021-05-27 16:51:13 Test Item Value Reference Range Interpretation Comme nts TROPONIN I (test code = 0.005 ng/mL See_Comment [Au tomated message] The 7601052302) system which ge nerated this result tra [...] biotin. Lab Interpretation Normal (test code = 82339-6) [facility]. METABOLIC PANEL (58232)2021-05-27 16:39:35 Test Item Value Reference Range Interpretation Comments NA (test code = 137 mmol/L 135-145 1526275875) K (test code = 3.7 mmol/L 3.5-5.0 6696954656) CL (test code = 101 mmol/L 98-108 1331655855) CO2 TOTAL (test code = 27 mmol/L 23-31 9308169953) AGAP (test code = 2-16 8890255325) BUN (test code = 9 mg/dL 7-23 4478869113) GLUCOSE (test code = 108 mg/dL 70-110 5803999642) CREATININE (test code = 0.75 mg/dL 0.60-1.25 8385090443) TOTAL BILI (test code = 0.3 mg/dL 0.1-1.6 7274720963) CALCIUM (test code = 8.2 mg/dL 8.6-10.6 L 7438074090) T PROTEIN (test code = 7.0 g/dL 6.3-8.2 1264181599) ALBUMIN (test code = 4.1 g/dL 3.5-5.0 4620429624) ALK PHOS (test code = 74 U/L 34-122 1415341033) ALTv (test code = 27 U/L 5-50 1742-6) AST(SGOT) (test code = 34 U/L 13-40 9347472938) eGFR (test code = mL/min/1.73m2 8981212451) TAMIKO (test code = TAMIKO) Association of [...] tests). Lab Interpretation Abnormal (test code = 12196-3) [facility] [id number] 16:39:14 Test Item Value Reference Range Interpretation Comments LIPASE (test code = 9270306576) 72 U/L 0-220 Lab Interpretation (test code = Normal 73710-6) [facility] 16:34:13 Test Item Value Reference Range Interpretation Comments APTT Patient (test See_Comment [Automat ed code = 3173-2) message] The system which generated this result transmitted reference range : 23 - 38 Seconds . The reference range was not used to interpr et this result as normal/abnormal . TAMIKO (test code = TAMIKO) The [facility] patient population mean normal value for aPTT is 30 seconds. Lab Interpretation Normal (test code = 36146-8) [facility]PROT[facility] TIME / [id number] 16:32:13 Test Item Value Reference Range Interpretation Comments PROTIME PATIENT (test See_Comment [Auto mated message] code = 5964-2) The system [employer] generated this result transmitted ref erence range: 12.0 - 1 4.7 Seconds. The re ference range was not u sed to interpret this result as normal/abnor mal. INR (test code = 6301-6) Nor mal INR <1.1; Warfarin Therap eutic range 2.0 to 3. 0 or 2.5 to 3.5, dep ending upon the indica tions. Lab Interpretation (test Normal code = 96229-7) [facility] WITH [id number] 16:21:51 Test Item Value Reference Range Interpretation Comments WBC (test code = See_Comment [Automated message] 6690-2) The system [employer] generated this result transmitted ref erence range: 4.20 - 1 0.70 10*3/?L. The re ference range was not u sed to interpret this result as normal/abnor mal. RBC (test code = See_Comment [Automated message] 789-8) The system [employer] generated this result transmitted ref erence range: 4.26 - 5 .52 10*6/?L. The re ference range was not u sed to interpret this result as normal/abnor mal. HGB (test code = 13.6 g/dL 12.2-16.4 718-7) HCT (test code = 41.3 % 38.4-49.3 4544-3) MCV (test code = 90.8 fL 81.7-95.6 787-2) MCH (test code = 29.9 pg 26.1-32.7 785-6) MCHC (test code = 32.9 g/dL 31.2-35.0 786-4) RDW-SD (test code 42.2 fL 38.5-51.6 = 56708-0) RDW-CV (test code 12.7 % 12.1-15.4 = 788-0) PLT (test code = See_Comment [Automated message] 777-3) The system [employer] generated this result transmitted ref erence range: 150 - 32 8 10*3/?L. The re ference range was not u sed to interpret this result as normal/abnor mal. MPV (test code = 9.9 fL 9.8-13.0 74474-2) NRBC/100 WBC (test See_Comment [Automat ed message] code = 8124184315) The syste m which generated this result transmitted ref erence range: 0.0 - 10 .0 /100 WBCs. The refer ence range was not u sed to interpret this result as normal/abnor mal. NRBC x10^3 (test <0.01 See_Comment [Automated message] code = 2966727876) The syste m which generated this result transmitted ref erence range: 10*3/?L. The reference range was not used to interpr et this result as normal/abnormal . GRAN MAT (NEUT) % 53.0 % (test code = 770-8) IMM GRAN % (test 0.30 % code = 0681140773) LYMPH % (test code 29.5 % = 736-9) MONO % (test code 12.3 % = 5905-5) EOS % (test code = 4.1 % 713-8) BASO % (test code 0.8 % = 706-2) GRAN MAT 3.23 10*3/uL 1.99-6.95 x10^3(ANC) (test code = 3378850020) IMM GRAN x10^3 <0.03 0.00-0.06 (test code = 2076256834) LYMPH x10^3 (test 1.80 10*3/uL 1.09-3.23 code = 731-0) MONO x10^3 (test 0.75 10*3/uL 0.36-1.02 code = 742-7) EOS x10^3 (test 0.25 10*3/uL 0.06-0.53 code = 711-2) BASO x10^3 (test 0.05 10*3/uL 0.01-0.09 code = 704-7) [facility] HospitalPROCALCITONIN2021-12-26 18:33:47 Test Item Value Reference Range Interpretation Comments Procalcitonin (test 0.02 ng/mL <0.07 code = 2019345669) TAMIKO (test code = TAMIKO) INTERPRETATION OF PROCALCITONIN RESULTS IN ADULTS >= 18 YEARS OF AGE Initiation and discontinuation of antibiotics on patients with suspected or confirmed Lower Respiratory Tract Infection in Adults >= 18 years of age. + +-------- --------+ + -----+|Procalcitonin |Interpretation ?|Antibiotic ? ? |Considerations ? |ng/mL ? | ?|recommendation | ? + +-------- --------+ + -----+| <0.1 ? | Bacterial ? ? ?| Strongly ? ? ?| ? | ?| infection very | discouraged ? | Overruling: ? | ?| unlikely ? ? ? | ? | ? Clinically unstable ? ? ? + +-------- --------+ + ? High risk for adverse ? ? | <0.25 ?| Bacterial ? ? ?| Discouraged ? | ? outcome ? | ?| infection ? ? ?| ? | ? SEE IMPORTANT NOTE ?| ?| unlikely ? ? ? | ? | ? + +-------- --------+ + -----+| >=0.25 ? ? ? | Bacterial ? ? ?| Encouraged ? ?| ? | ?| infection ? ? ?| ? | ? | ?| likely ? | ? | Consider treatment failure ?+ +------- ---------+ -+ if levels does not decrease | >0.5 ? | Bacterial ? ? ?| Strongly ? ? ?| appropriately ? | ?| infection very | encouraged ? ?| ? | ?| likely ? | ? | ? + +-------- --------+ + -----+ Discontinuation of antibiotics in high-acuity patients with suspected or confirmed sepsis in Adults >= 18 years of age. + +-------- --------+ + -----+|Procalcitonin |Interpretation ?|Antibiotic ? ? |Considerations ? |ng/mL ? | ?|recommendation | ? + +-------- --------+ + -----+| <0.25 ?| Bacterial ? ? ?| Strongly ? ? ?| ? | ?| infection very | discouraged ? | Overruling: ? | ?| unlikely ? ? ? | ? | ? Clinically unstable ? ? ? + +-------- --------+ + ? High risk for adverse ? ? | <0.5 or drop | Bacterial ? ? ?| Discouraged ? | ? outcome ? | >80% from ? ?| infection ? ? ?| ? | ? SEE IMPORTANT NOTE ?| highest PCT ?| unlikely ? ? ? | ? | ? | level ?| ?| ? | ? + +-------- --------+ + -----+| >=0.5 ?| Bacterial ? ? ?| Encouraged ? ?| ? | ?| infection ? ? ?| ? | ? | ?| likely ? | ? | Consider treatment failure ?+ +------- ---------+ -+ if levels does not decrease | >1.0 ? | Bacterial ? ? ?| Strongly ? ? ?| appropriately ? | ?| infection very | encouraged ? ?| ? | ?| likely ? | ? | ? + +-------- --------+ + -----+ Percentage of drop of Procalcitonin calculation for [...] lung abscess/empyema. For further information please refer to:[email or web address] Lab Interpretation Normal (test code = 92188-0) [facility] HospitalKAPILKaren [id number] 13:20:01 Test Item Value Reference Interpretation Comments Range TROPONIN I (test 0.008 ng/mL See_Comment [Automated code = 2789787530) message] The system which generated this result [...] biotin. Lab Interpretation Normal (test code = 05685-1) [facility] HospitalTR[facility]IN [id number] 11:41:12 Test Item Value Reference Interpretation Comments Range TROPONIN I (test 0.007 ng/mL See_Comment [Automated code = 1874042168) message] The system which generated this result [...] biotin. Lab Interpretation Normal (test code = 17695-1) [facility] HospitalCREATINE [id number] 11:31:13 Test Item Value Reference Range Interpretation Comments CK (test code = 9716523623) 93 U/L 33-194 Lab Interpretation (test code = Normal 51879-7) [facility] HospitalTHYROID STIMULATING [id number] 10:15:06 Test Item Value Reference Range Interpretation Comments TSH (test code = See_Comment [Automated message] 2092251035) The system [employer] generated this result transmitted ref erence range: 0.45 - 4 .70 mIU/L. The refe rence range was not u sed to interpret this result as normal/abnor mal. Lab Interpretation (test Normal code = 68017-1) [facility] HospitalN-TERMINAL [id number] 09:53:45 Test Item Value Reference Range Interpretation Comments NT-proBNP (test code 175 pg/mL See_Comment H [Autom ated = 4890318579) message] The system which generated this result transmitted reference range : <=125. The reference range was not used to interpret this result as normal/abnormal . TAMIKO (test code = TAMIKO) Biotin has been reported to cause a negative bias, interpret results relative to patient's use of biotin. Lab Interpretation Abnormal (test code = 54784-2) [facility] HospitalETHANOL2021-12-26 09:52:20 Test Item Value Reference Range Interpretation Comments ALCOHOL (test code = <10 mg/dL 8335143547) TAMIKO (test code = TAMIKO) <10 Zqlggbzi50-804 Toxic>100 Depression of [employer]>[address] [facility] HospitalMAGNESIUM2021-12-26 09:45:24 Test Item Value Reference Range Interpretation Comments MAGNESIUM (test code = 5436115328) 1.3 mg/dL 1.7-2.4 L Lab Interpretation (test code = Abnormal 25364-3) [facility] HospitalLIPID PANEL (83167)(TOTAL CHOLESTEROL, TRIGLYCERIDES, HDL)2021-05-05 09:45:24 Test Item Value Reference Range Interpretation Comments CHOL (test code = 206 mg/dL 120-200 H 3641921472) HDL (test code = 29 mg/dL >40 L 3065657309) HDLC RATIO (test code = See_Comment H [Au tomated message] 3326182889) The system [employer] generated this result transmit luis reference range : <=5.0. The refe rence range was not u sed to interpret th is result as normal/abnormal . TRIG (test code = 255 mg/dL 30-170 H 5519255943) LDL CHOL (test code = 126 mg/dL See_Comment [Auto mated message] 82472-0) The system [employer] generated this result transmit luis reference range : <=160. The refe rence range was not u sed to interpret th is result as normal/abnormal . VLDL (test code = 51 mg/dL 5-60 7874928757) Lab Interpretation (test Abnormal code = 11963-9) [facility] HospitalPHOSPHORUS2021-12-26 09:45:04 Test Item Value Reference Range Interpretation Comments PHOSPHORUS (test code = 0295637003) 3.6 mg/dL 2.5-5.0 Lab Interpretation (test code = Normal 68943-2) [facility] HospitalURIC [id number] 09:44:43 Test Item Value Reference Range Interpretation Comments URIC ACID (test code = 4459075166) 7.8 mg/dL 3.6-8.0 Lab Interpretation (test code = Normal 65320-7) [facility] HospitalGLYCOSYLATED HEMOGLOBIN (A1C)2021-05-05 09:09:32 Test Item Value Reference Range Interpretation Comments HGB A1C (test code = 5.7 % 4.0-5.7 4548-4) TAMIKO (test code = TAMIKO) Reference RangesNormal: <5.7%Prediabetes: 5.7 - 6.4%Diabetes: > 6.5% Lab Interpretation (test Normal code = 46244-4) [facility] HospitalD-[id number] 04:48:27 Test Item Value Reference Interpretation Comments Range D-DIMER (test code = <0.27 See_Comment [Autom ated 7911753946) message] The system which generated this result [...] diagnosis. Lab Interpretation Normal (test code = 91133-1) [facility] HospitalTR[facility]IN [id number] 03:29:25 Test Item Value Reference Interpretation Comments Range TROPONIN I (test 0.018 ng/mL See_Comment [Automated code = 6993516126) message] The system which generated this result [...] biotin. Lab Interpretation Normal (test code = 82330-0) [facility] HospitalTR[facility]IN [id number] 01:09:37 Test Item Value Reference Interpretation Comments Range TROPONIN I (test 0.005 ng/mL See_Comment [Automated code = 3188168183) message] The system which generated this result [...] biotin. Lab Interpretation Normal (test code = 93530-4) [facility] HospitalCOMP. METABOLIC PANEL (68273)2021-05-05 00:57:59 Test Item Value Reference Range Interpretation Comments NA (test code = 135 mmol/L 135-145 5321911455) K (test code = 3.8 mmol/L 3.5-5.0 4346442695) CL (test code = 102 mmol/L 98-108 9760252747) CO2 TOTAL (test code 23 mmol/L 23-31 = 9443448456) AGAP (test code = 2-16 2725717712) BUN (test code = 12 mg/dL 7-23 6063386430) GLUCOSE (test code = 92 mg/dL 70-110 4909967784) CREATININE (test code 0.71 mg/dL 0.60-1.25 = 1835429777) TOTAL BILI (test code 0.5 mg/dL 0.1-1.1 = 3911181805) CALCIUM (test code = 9.0 mg/dL 8.6-10.6 5684443141) T PROTEIN (test code 7.4 g/dL 6.3-8.2 = 1652078043) ALBUMIN (test code = 4.4 g/dL 3.5-5.0 6995203333) ALK PHOS (test code = 67 U/L 34-122 0114762196) ALTv (test code = 28 U/L 5-50 2-6) AST(SGOT) (test code 32 U/L 13-40 = 5831465066) eGFR (test code = mL/min/1.73m2 2211219275) TAMIKO (test code = TAMIKO) Association of [...] or urine or abnormalities in imaging tests). [facility] HospitalLIP[facility], [id number] 00:57:39 Test Item Value Reference Range Interpretation Comments LIPASE (test code = 9384428881) 65 U/L 0-220 Lab Interpretation (test code = Normal 29433-6) [facility]aPTT2021-12-26 00:54:59 Test Item Value Reference Range Interpretation Comments APTT Patient (test See_Comment [Automat ed code = 3173-2) message] The system which generated this result transmitted reference range : 23 - 38 Seconds . The reference range was not used to interpr et this result as normal/abnormal . TAMIKO (test code = TAMIKO) The [facility] patient population mean normal value for aPTT is 30 seconds. Lab Interpretation Normal (test code = 99665-0) [facility] HospitalPROTHROMBIN TIME / [id number] 00:52:58 Test Item Value Reference Range Interpretation [...] tions. Lab Interpretation (test Normal code = 26071-8) [facility] HospitalCBC WITH [id number] 00:46:38 Test Item Value Reference Range Interpretation Comments WBC (test code = See_Comment [Automated 4290-2) message] The sy stem which generated this result transmitted reference range : 4.20 - 10.70 10*3/?L. The reference range was not used to interpret this result as normal/abnormal . RBC (test code = See_Comment [Automated 819-8) message] The sy stem which generated this [...] RDW-SD (test code = 41.9 fL 38.5-51.6 67042-4) RDW-CV (test code = 12.7 % 12.1-15.4 788-0) PLT (test code = See_Comment H [Automated 777-3) message] The sy stem which generated this result transmitted reference range : 150 - 328 10*3/ ?L. The reference r javier was not used to interpret this result as normal/abnormal . MPV (test code = 9.9 fL 9.8-13.0 72565-1) NRBC/100 WBC (test See_Comment [Automat ed code = 8050493445) message] The system which generated this result transmitted reference range : 0.0 - 10.0 /100 WBCs. The refer ence range was not u sed to interpret th is result as normal/abnormal . NRBC x10^3 (test code <0.01 See_Comment [Auto mated = 6321651512) message] The s ystem which generated this result transmitted reference range : 10*3/?L. The reference range was not used to interpret this result as normal/abnormal . GRAN MAT (NEUT) % 62.3 % (test code = 770-8) IMM GRAN % (test code 0.30 % = 3374568133) LYMPH % (test code = 24.9 % 736-9) MONO % (test code = 9.9 % 5905-5) EOS % (test code = 1.6 % 713-8) BASO % (test code = 1.0 % 706-2) GRAN MAT x10^3(ANC) 5.68 10*3/uL 1.99-6.95 (test code = 9111722117) IMM GRAN x10^3 (test 0.03 10*3/uL 0.00-0.06 code = 4075158550) LYMPH x10^3 (test code 2.27 10*3/uL 1.09-3.23 = 731-0) MONO x10^3 (test code 0.90 10*3/uL 0.36-1.02 = 742-7) EOS x10^3 (test code = 0.15 10*3/uL 0.06-0.53 711-2) BASO x10^3 (test code 0.09 10*3/uL 0.01-0.09 = 704-7) Lab Interpretation Abnormal (test code = 02601-3) [facility] [id number] 14:27:27 Test Item Value Reference Interpretation Comments Range TROPONIN I (test 0.002 ng/mL See_Comment [Automated code = 7138170744) message] The system which generated this result [...] biotin. Lab Interpretation Normal (test code = 53341-9) [facility] HospitalD-[id number] 14:25:35 Test Item Value Reference Interpretation Comments Range D-DIMER (test code = See_Comment [Autom ated 5338508912) message] The system which generated this result [...] diagnosis. Lab Interpretation Normal (test code = 94685-6) [facility]N-[facility]MINAL [id number] 14:22:27 Test Item Value Reference Range Interpretation Comments NT-proBNP (test code 29 pg/mL See_Comment [Autom ated = 1861447545) message] The system which generated this result transmitted reference range : <=125. The reference range was not used to interpret this result as normal/abnormal . TAMIKO (test code = TAMIKO) Biotin has been reported to cause a negative bias, interpret results relative to patient's use of biotin. Lab Interpretation Normal (test code = 12419-5) [facility] HospitalLIPID PANEL (03130)(TOTAL CHOLESTEROL, TRIGLYCERIDES, HDL)2021-02-18 14:14:32 Test Item Value Reference Range Interpretation Comments CHOL (test code = 209 mg/dL 120-200 H 8150091154) HDL (test code = 30 mg/dL >40 L 8700663296) HDLC RATIO (test code = See_Comment H [Au tomated message] 7585051982) The system [employer] generated this result transmit luis reference range : <=5.0. The refe rence range was not u sed to interpret th is result as normal/abnormal . TRIG (test code = 143 mg/dL 30-170 7264299230) LDL CHOL (test code = 150 mg/dL See_Comment [Auto mated message] 41133-8) The system [employer] generated this result transmit luis reference range : <=160. The refe rence range was not u sed to interpret th is result as normal/abnormal . VLDL (test code = 29 mg/dL 5-60 6391882047) Lab Interpretation (test Abnormal code = 46449-0) [facility]. METABOLIC PANEL (92372)2021-02-18 14:14:11 Test Item Value Reference Range Interpretation Comments NA (test code = 139 mmol/L 135-145 1213114839) K (test code = 4.7 mmol/L 3.5-5.0 3674034309) CL (test code = 104 mmol/L 98-108 1756823568) CO2 TOTAL (test code 30 mmol/L 23-31 = 8059107592) AGAP (test code = 2-16 0932272004) BUN (test code = 12 mg/dL 7-23 7745773605) GLUCOSE (test code = 102 mg/dL 70-110 7612210011) CREATININE (test code 0.78 mg/dL 0.60-1.25 = 6990271749) TOTAL BILI (test code 0.3 mg/dL 0.1-1.1 = 2476718562) CALCIUM (test code = 9.5 mg/dL 8.6-10.6 9787892566) T PROTEIN (test code 7.4 g/dL 6.3-8.2 = 7500767506) ALBUMIN (test code = 4.3 g/dL 3.5-5.0 2612898551) ALK PHOS (test code = 61 U/L 34-122 5842208272) ALTv (test code = 27 U/L 5-50 1742-6) AST(SGOT) (test code 26 U/L 13-40 = 8765488742) eGFR (test code = mL/min/1.73m2 2907630135) TAMIKO (test code = TAMIKO) Association of [...] or urine or abnormalities in imaging tests). [facility]MAG[facility]UM2021-10-11 14:14:11 Test Item Value Reference Range Interpretation Comments MAGNESIUM (test code = 5436644423) 1.8 mg/dL 1.7-2.4 Lab Interpretation (test code = Normal 36860-2) [facility] WITH [id number] 13:51:29 Test Item Value Reference Range Interpretation Comments WBC (test code = See_Comment [Automated message] 7390-2) The system [employer] generated this result transmitted ref erence range: 4.20 - 1 0.70 10*3/?L. The re ference range was not u sed to interpret this result as normal/abnor mal. RBC (test code = See_Comment [Automated message] 789-8) The system [employer] generated this result transmitted ref erence range: [...] RDW-SD (test code 43.3 fL 38.5-51.6 = 23374-1) RDW-CV (test code 13.0 % 12.1-15.4 = 788-0) PLT (test code = See_Comment [Automated message] 777-3) The system whic h generated this result transmitted ref erence range: 150 - 32 8 10*3/?L. The re ference range was not u sed to interpret this result as normal/abnor mal. MPV (test code = 10.2 fL 9.8-13.0 41183-8) NRBC/100 WBC (test See_Comment [Automat ed message] code = 4704280103) The syste m which generated this result transmitted ref erence range: 0.0 - 10 .0 /100 WBCs. The refer ence range was not u sed to interpret this result as normal/abnor mal. NRBC x10^3 (test <0.01 See_Comment [Automated message] code = 7089772387) The syste m which generated this result transmitted ref erence range: 10*3/?L. The reference range was not used to interpr et this result as normal/abnormal . GRAN MAT (NEUT) % 50.8 % (test code = 770-8) IMM GRAN % (test 0.70 % code = 3852231905) LYMPH % (test code 29.1 % = 736-9) MONO % (test code 12.4 % = 5905-5) EOS % (test code = 6.2 % 713-8) BASO % (test code 0.8 % = 706-2) GRAN MAT 3.71 10*3/uL 1.99-6.95 x10^3(ANC) (test code = 0165752978) IMM GRAN x10^3 0.05 10*3/uL 0.00-0.06 (test code = 4532857302) LYMPH x10^3 (test 2.13 10*3/uL 1.09-3.23 code = 731-0) MONO x10^3 (test 0.91 10*3/uL 0.36-1.02 code = 742-7) EOS x10^3 (test 0.45 10*3/uL 0.06-0.53 code = 711-2) BASO x10^3 (test 0.06 10*3/uL 0.01-0.09 code = 704-7) [facility]OL[facility] ([id number])2021-01-24 14:53:54 Test Item Value Reference Range Interpretation Comments NA (test code = 137 mmol/L 135-145 3172996983) K (test code = 4.5 mmol/L 3.5-5.0 4933737229) CL (test code = 100 mmol/L 98-108 3903950177) CO2 TOTAL (test code 29 mmol/L 23-31 = 6115934483) AGAP (test code = 2-16 3913946345) BUN (test code = 16 mg/dL 7-23 1531135182) GLUCOSE (test code = 94 mg/dL 70-110 7064733792) CREATININE (test code 0.86 mg/dL 0.60-1.25 = 4380116622) TOTAL BILI (test code 0.5 mg/dL 0.1-1.1 = 7351738794) CALCIUM (test code = 9.7 mg/dL 8.6-10.6 9788127476) T PROTEIN (test code 8.0 g/dL 6.3-8.2 = 0828487777) ALBUMIN (test code = 4.5 g/dL 3.5-5.0 6575826235) ALK PHOS (test code = 64 U/L 34-122 4149925892) ALTv (test code = 21 U/L 5-50 1742-6) AST(SGOT) (test code 37 U/L 13-40 = 8463507909) eGFR (test code = mL/min/1.73m2 6329032821) TAMIKO (test code = TAMIKO) Association of [...] or urine or abnormalities in imaging tests). [facility]. METABOLIC PANEL ([id number])2021-01-24 14:53:54 Test Item Value Reference Range Interpretation Comments NA (test code = 137 mmol/L 135-145 0903862814) K (test code = 4.5 mmol/L 3.5-5.0 1723415223) CL (test code = 100 mmol/L 98-108 2966447433) CO2 TOTAL (test code 29 mmol/L 23-31 = 0465455989) AGAP (test code = 2-16 6927294508) BUN (test code = 16 mg/dL 7-23 1350064876) GLUCOSE (test code = 94 mg/dL 70-110 6273813147) CREATININE (test code 0.86 mg/dL 0.60-1.25 = 6084855495) TOTAL BILI (test code 0.5 mg/dL 0.1-1.1 = 3891082493) CALCIUM (test code = 9.7 mg/dL 8.6-10.6 1954280060) T PROTEIN (test code 8.0 g/dL 6.3-8.2 = 0224828712) ALBUMIN (test code = 4.5 g/dL 3.5-5.0 8975249203) ALK PHOS (test code = 64 U/L 34-122 6572848408) ALTv (test code = 21 U/L 5-50 1742-6) AST(SGOT) (test code 37 U/L 13-40 = 3559462681) eGFR (test code = mL/min/1.73m2 4591127512) TAMIKO (test code = TAMIKO) Association of [...] or urine or abnormalities in imaging tests). [facility] WITH [id number] 14:39:54 Test Item Value Reference Range Interpretation Comments WBC (test code = See_Comment [Automated 9892-2) message] The sy stem which generated this result transmitted reference range : 4.20 - 10.70 10*3/?L. The reference range was not used to interpret this result as normal/abnormal . RBC (test code = See_Comment [Automated 898-6) message] The sy stem which generated this [...] RDW-SD (test code = 44.4 fL 38.5-51.6 95031-7) RDW-CV (test code = 13.2 % 12.1-15.4 788-0) PLT (test code = See_Comment [Automated 777-3) message] The sy stem which generated this result transmitted reference range : 150 - 328 10*3/ ?L. The reference r javier was not used to interpret this result as normal/abnormal . MPV (test code = 10.7 fL 9.8-13.0 66666-3) NRBC/100 WBC (test See_Comment [Automat ed code = 0418822879) message] The system which generated this result transmitted reference range : 0.0 - 10.0 /100 WBCs. The refer ence range was not u sed to interpret th is result as normal/abnormal . NRBC x10^3 (test code <0.01 See_Comment [Auto mated = 2566884465) message] The s ystem which generated this result transmitted reference range : 10*3/?L. The reference range was not used to interpret this result as normal/abnormal . GRAN MAT (NEUT) % 54.9 % (test code = 770-8) IMM GRAN % (test code 0.50 % = 6052458533) LYMPH % (test code = 24.0 % 736-9) MONO % (test code = 16.5 % 5905-5) EOS % (test code = 3.5 % 713-8) BASO % (test code = 0.6 % 706-2) GRAN MAT x10^3(ANC) 3.58 10*3/uL 1.99-6.95 (test code = 5548836973) IMM GRAN x10^3 (test 0.03 10*3/uL 0.00-0.06 code = 7136797564) LYMPH x10^3 (test code 1.57 10*3/uL 1.09-3.23 = 731-0) MONO x10^3 (test code 1.08 10*3/uL 0.36-1.02 H = 742-7) EOS x10^3 (test code = 0.23 10*3/uL 0.06-0.53 711-2) BASO x10^3 (test code 0.04 10*3/uL 0.01-0.09 = 704-7) Lab Interpretation Abnormal (test code = 95864-2) [facility] WITH [id number] 14:39:54 Test Item Value Reference Range Interpretation Comments WBC (test code = See_Comment [Automated 9987-2) message] The sy stem which generated this result transmitted reference range : 4.20 - 10.70 10*3/?L. The reference range was not used to interpret this result as normal/abnormal . RBC (test code = See_Comment [Automated 219-8) message] The sy stem which generated this [...] RDW-SD (test code = 44.4 fL 38.5-51.6 09662-9) RDW-CV (test code = 13.2 % 12.1-15.4 788-0) PLT (test code = See_Comment [Automated 017-3) message] The sy stem which generated this result transmitted reference range : 150 - 328 10*3/ ?L. The reference r javier was not used to interpret this result as normal/abnormal . MPV (test code = 10.7 fL 9.8-13.0 36783-7) NRBC/100 WBC (test See_Comment [Automat ed code = 1334325418) message] The system which generated this result transmitted reference range : 0.0 - 10.0 /100 WBCs. The refer ence range was not u sed to interpret th is result as normal/abnormal . NRBC x10^3 (test code <0.01 See_Comment [Auto mated = 8812074751) message] The s ystem which generated this result transmitted reference range : 10*3/?L. The reference range was not used to interpret this result as normal/abnormal . GRAN MAT (NEUT) % 54.9 % (test code = 770-8) IMM GRAN % (test code 0.50 % = 1784545039) LYMPH % (test code = 24.0 % 736-9) MONO % (test code = 16.5 % 5905-5) EOS % (test code = 3.5 % 713-8) BASO % (test code = 0.6 % 706-2) GRAN MAT x10^3(ANC) 3.58 10*3/uL 1.99-6.95 (test code = 5077894501) IMM GRAN x10^3 (test 0.03 10*3/uL 0.00-0.06 code = 4959609728) LYMPH x10^3 (test code 1.57 10*3/uL 1.09-3.23 = 731-0) MONO x10^3 (test code 1.08 10*3/uL 0.36-1.02 H = 742-7) EOS x10^3 (test code = 0.23 10*3/uL 0.06-0.53 711-2) BASO x10^3 (test code 0.04 10*3/uL 0.01-0.09 = 704-7) Lab Interpretation Abnormal (test code = 82335-9) [facility] - COMPREHENSIVE DRUG SCREEN W/O [id number] 14:38:57 Test Item Value Reference Range Interpretation Comments AMPHET (test code = Negative Negative 1236637921) CLAUDIA U (test code = Negative Negative 8802332237) BENZO U (test code = Negative Negative 2752712734) Cocaine Metabolite (test Negative Negative code = 6883810988) METHADONE (test code = Negative Negative 7850007071) OPIATES (test code = Negative Negative 7149211654) PCP (test code = Negative Negative 3018089120) THC (test code = Negative Negative 6037545297) TAMIKO (test code = TAMIKO) Urine Drug [...] testing). Lab Interpretation (test Normal code = 10474-9) [facility] (ID NOW RAPID TESTING)2020-12-07 14:31:11 Test Item Value Reference Range Interpretation Comments SARS-CoV-2 Rapid ID NOW Not Detected Not Detected (test code = 04136-9) TAMIKO (test code = TAMIKO) ID NOW COVID-19 Assay is an isothermal nucleic acid amplification test intended for the qualitative detection of nucleic acid from SARS-CoV-2 viral RNA in nasopharyngeal ([employer]) specimens. It is used under Emergency Use [...] indicated. Lab Interpretation Normal (test code = 76658-3) [facility] [id number] 14:23:50 Test Item Value Reference Range Interpretation Comments RSV Antigen (test code = 8735004902) Negative Negative Lab Interpretation (test code = Normal 56032-8) [facility]IS2021-07-30 14:10:55 Test Item Value Reference Range Interpretation Comments APPEARANCE (test code = Clear Clear 6213112934) COLOR (test code = Yellow Yellow 6703025794) PH (test code = 4.8-8.0 2039640477) SP GRAVITY (test code = 1.003-1.030 3664666911) GLU U QUAL (test code = Normal Normal 8616754821) BLOOD (test code = Negative Negative 5221081467) KETONES (test code = Negative Negative 7936646164) PROTEIN (test code = Negative Negative 2887-8) UROBILIN (test code = Normal Normal 7570306829) BILIRUBIN (test code = Negative Negative 2703169280) NITRITE (test code = Negative Negative 2146443603) LEUK GINO (test code = Negative Negative 9925910484) RBC/HPF (test code = See_Comment [Autom ated message] 4683967800) The system [employer] generated this result transmitted ref erence range: 0 - 3 HP F. The reference range was not used to int erpret this result as normal/abnormal . WBC/HPF (test code = See_Comment [Autom ated message] 1474026472) The system [employer] generated this result transmitted ref erence range: 0 - 5 HP F. The reference range was not used to int erpret this result as normal/abnormal . BACTERIA (test code = Negative Negative 4570511436) Lab Interpretation (test Normal code = 37189-6) [facility]OLIC PANEL (22412)2020-12-07 14:10:04 Test Item Value Reference Range Interpretation Comments NA (test code = 142 mmol/L 135-145 4862203234) K (test code = 4.3 mmol/L 3.5-5.0 4026625154) CL (test code = 106 mmol/L 98-108 7438654595) CO2 TOTAL (test code = 23 mmol/L 23-31 7680384947) AGAP (test code = 2-16 5331047168) BUN (test code = 15 mg/dL 7-23 1587716868) GLUCOSE (test code = 94 mg/dL 70-110 8954150497) CREATININE (test code = 0.70 mg/dL 0.60-1.25 6958356784) TOTAL BILI (test code = 0.5 mg/dL 0.1-1.9 8869546338) CALCIUM (test code = 9.7 mg/dL 8.6-10.6 1557890697) T PROTEIN (test code = 8.3 g/dL 6.3-8.2 H 9673542207) ALBUMIN (test code = 4.8 g/dL 3.5-5.0 6311720667) ALK PHOS (test code = 62 U/L 34-122 2199135168) ALTv (test code = 31 U/L 5-50 1742-6) AST(SGOT) (test code = 84 U/L 13-40 H 3740412971) eGFR (test code = mL/min/1.73m2 9091515184) TAMIKO (test code = TAMIKO) Association of [...] tests). Lab Interpretation Abnormal (test code = 97215-9) [facility]2021-07-30 14:09:48 Test Item Value Reference Range Interpretation Comments LIPASE (test code = 1603534188) 171 U/L 0-220 Lab Interpretation (test code = Normal 16120-9) [facility] WITH [id number] 13:59:24 Test Item Value Reference Range Interpretation Comments WBC (test code = See_Comment [Automated message] 1490-2) The system [employer] generated this result transmitted ref erence range: 4.20 - 1 0.70 10*3/?L. The re ference range was not u sed to interpret this result as normal/abnor mal. RBC (test code = See_Comment [Automated message] 429-8) The system [employer] generated this result transmitted ref erence range: [...] RDW-SD (test code 45.8 fL 38.5-51.6 = 78546-9) RDW-CV (test code 13.5 % 12.1-15.4 = 788-0) PLT (test code = See_Comment [Automated message] 477-3) The system [employer] generated this result transmitted ref erence range: 150 - 32 8 10*3/?L. The re ference range was not u sed to interpret this result as normal/abnor mal. MPV (test code = 11.0 fL 9.8-13.0 83316-2) NRBC/100 WBC (test See_Comment [Automat ed message] code = 9465711626) The syste m which generated this result transmitted ref erence range: 0.0 - 10 .0 /100 WBCs. The refer ence range was not u sed to interpret this result as normal/abnor mal. NRBC x10^3 (test <0.01 See_Comment [Automated message] code = 8383560825) The syste m which generated this result transmitted ref erence range: 10*3/?L. The reference range was not used to interpr et this result as normal/abnormal . GRAN MAT (NEUT) % 47.3 % (test code = 770-8) IMM GRAN % (test 0.20 % code = 6727356074) LYMPH % (test code 33.4 % = 736-9) MONO % (test code 13.0 % = 5905-5) EOS % (test code = 5.2 % 713-8) BASO % (test code 0.9 % = 706-2) GRAN MAT 3.08 10*3/uL 1.99-6.95 x10^3(ANC) (test code = 1264541131) IMM GRAN x10^3 <0.03 0.00-0.06 (test code = 1276813304) LYMPH x10^3 (test 2.18 10*3/uL 1.09-3.23 code = 731-0) MONO x10^3 (test 0.85 10*3/uL 0.36-1.02 code = 742-7) EOS x10^3 (test 0.34 10*3/uL 0.06-0.53 code = 711-2) BASO x10^3 (test 0.06 10*3/uL 0.01-0.09 code = 704-7) [facility]LAB ONLY COVID [id number] 15:23:58COVID DMT InterpretationInterpretation/Recommendations: Molecular NAAT Tests for [...] COVID-19 testing the patient has had at [facility], including molecular NAAT testing (more commonly known as PCR testing and Rapid ID Now testing) and antibody testing. It does not take into account any testing that a patient has had outside of the [facility] medical record. [facility] LABORATORY SERVICESCOVID Resul [id number]-[id number] Rapid ID NOW (no units) ? ? Date ? Value ? 10/24/2020 ? Not Detected ? ? ? 07/28/2020 ? Not Detected ? [facility] SERVICESUnG[facility] COMP. METABOLIC PANEL ([id number])2020-10-26 12:44:29 Test Item Value Reference Range Interpretation Comments NA (test code = 135 mmol/L 135-145 4144658802) K (test code = 4.2 mmol/L 3.5-5.0 0686437102) CL (test code = 101 mmol/L 98-108 7153267770) CO2 TOTAL (test code = 25 mmol/L 23-31 3125572398) AGAP (test code = 2-16 2996871634) BUN (test code = 7 mg/dL 7-23 5429804500) GLUCOSE (test code = 84 mg/dL 70-110 0199467952) CREATININE (test code = 0.69 mg/dL 0.60-1.25 2520131872) TOTAL BILI (test code = 0.8 mg/dL 0.1-1.1 0003265885) CALCIUM (test code = 9.0 mg/dL 8.6-10.6 7526597518) T PROTEIN (test code = 6.3 g/dL 6.3-8.2 0048319775) ALBUMIN (test code = 3.5 g/dL 3.5-5.0 6764159944) ALK PHOS (test code = 83 U/L 34-122 4833834122) ALTv (test code = 37 U/L 5-50 1742-6) AST(SGOT) (test code = 45 U/L 13-40 H 7542684222) eGFR (test code = mL/min/1.73m2 4215722930) TAMIKO (test code = TAMIKO) Association of [...] tests). Lab Interpretation Abnormal (test code = 60476-9) [facility] HospitalMAGNESIUM2021-06-17 15:46:06 Test Item Value Reference Range Interpretation Comments MAGNESIUM (test code = 0596477336) 1.4 mg/dL 1.7-2.4 L Lab Interpretation (test code = Abnormal 54549-0) [facility] (NA, K, CL, CO2, GLUCOSE, BUN, CREATININE, CA)2020-10-25 15:45:46 Test Item Value Reference Range Interpretation Comments NA (test code = 135 mmol/L 135-145 8112241687) K (test code = 3.1 mmol/L 3.5-5.0 L 1740737652) CL (test code = 106 mmol/L 98-108 3766092516) CO2 TOTAL (test code = 24 mmol/L 23-31 8995409930) AGAP (test code = 2-16 3480761428) BUN (test code = 4 mg/dL 7-23 L 0965993426) GLUCOSE (test code = 99 mg/dL 70-110 0745948722) CREATININE (test code = 0.61 mg/dL 0.60-1.25 4688671094) CALCIUM (test code = 7.4 mg/dL 8.6-10.6 L 0640092868) eGFR (test code = mL/min/1.73m2 2756927839) TAMIKO (test code = TAMIKO) Association of [...] tests). Lab Interpretation Abnormal (test code = 97589-2) [facility] ABDOMEN [id number] 23:59:57No evidence of acute sonographic abnormalities in [...] portalvenous waveform in the main portal vein. [facility], Radiant Results Inft User - 10/24/2020 7:01 [...] acute sonographic abnormalities in the abdomen.RL: 135 [facility] [id number] 17:24:18 Test Item Value Reference Range Interpretation Comments TROPONIN I (test 0.007 ng/mL See_Comment [Automated code = 1999628147) message] The system which generated this result [...] ? Lab Interpretation Normal (test code = 79581-6) [facility]MAGN[facility]IUM2021-06-16 14:02:13 Test Item Value Reference Range Interpretation Comments MAGNESIUM (test code = 2727149167) 1.9 mg/dL 1.7-2.4 Lab Interpretation (test code = Normal 95090-5) [facility] HospitalCritical [id number] 13:45:35Jennifer Shea MD ? ? 10/24/2020 ?8:45 AMCritical CarePerformed by: Jennifer Shea MDAuthorized by: Jennifer Shea MD Critical care provider statement: ?Critical [...] patient's response to treatment and examination of patientUnGonzales Memorial HospitalFR [id number] 13:37:55 Test Item Value Reference Range Interpretation Comments FREE T4 (test code = See_Comment [Autom ated message] 9132621898) The system [employer] generated this result transmitted ref erence range: 0.78 - 2 .20 ng/dL:. The ref erence range was not u sed to interpret this result as normal/abnor mal. Lab Interpretation (test Normal code = 93173-5) [facility] HospitalTHYROID STIMULATING [id number] 13:21:08 Test Item Value Reference Range Interpretation Comments TSH (test code = See_Comment [Automated message] 0245497355) The system [employer] generated this result transmitted ref erence range: 0.45 - 4 .70 mIU/L. The refe rence range was not u sed to interpret this result as normal/abnor mal. Lab Interpretation (test Normal code = 03522-1) [facility] HospitalCOVID[facility] (ID NOW RAPID TESTING)2020-10-24 13:06:12 Test Item Value Reference Range Interpretation Comments SARS-CoV-2 Rapid ID NOW Not Detected Not Detected (test code = 47348-6) TAMIKO (test code = TAMIKO) ID NOW COVID-19 Assay is an isothermal nucleic acid amplification test intended for the qualitative detection of nucleic acid from SARS-CoV-2 viral RNA in nasopharyngeal (S[employer] ME[employer]) specimens. It is used under Emergency Use [...] indicated. Lab Interpretation Normal (test code = 15231-2) [facility] HospitalTROPOALEJANDRO [id number] 13:00:47 Test Item Value Reference Range Interpretation Comments TROPONIN I (test 0.017 ng/mL See_Comment [Automated code = 4653219802) message] The system which generated this result [...] ? Lab Interpretation Normal (test code = 17236-6) [facility] HospitalN-TERMINAL [id number] 12:54:30 Test Item Value Reference Range Interpretation Comments NT-proBNP (test code 22 pg/mL See_Comment [Autom ated = 9542992640) message] The system which generated this result transmitted reference range : <=125. The reference range was not used to interpret this result as normal/abnormal . TAMIKO (test code = TAMIKO) Biotin has been reported to cause a negative bias, interpret results relative to patient's use of biotin. Lab Interpretation Normal (test code = 74952-7) [facility] HospitalETHANOL2021-06-16 12:51:47 Test Item Value Reference Range Interpretation Comments ALCOHOL (test code = 284 mg/dL 0840733383) TAMIKO (test code = TAMIKO) <10 Rakwmgxs83-905 Toxic>100 Depression of [employer]>[address] [facility] HospitalCREATINE [id number] 12:51:07 Test Item Value Reference Range Interpretation Comments CK (test code = 1082794671) 744 U/L 33-194 H Lab Interpretation (test code = Abnormal 37881-6) [facility] HospitalLIPASE2021-06-16 12:51:07 Test Item Value Reference Range Interpretation Comments LIPASE (test code = 7700706050) 92 U/L 0-220 Lab Interpretation (test code = Normal 81017-7) [facility] HospitalCOMP[facility] METABOLIC PANEL (68393)2020-10-24 12:49:29 Test Item Value Reference Range Interpretation Comments NA (test code = 144 mmol/L 135-145 8626983179) K (test code = 3.5 mmol/L 3.5-5.0 9904170711) CL (test code = 98 mmol/L 98-108 1610815509) CO2 TOTAL (test code = 29 mmol/L 23-31 9000310467) AGAP (test code = 2-16 H 4888493473) BUN (test code = 7 mg/dL 7-23 4944298322) GLUCOSE (test code = 148 mg/dL 70-110 H 3339125667) CREATININE (test code = 0.84 mg/dL 0.60-1.25 0263322887) TOTAL BILI (test code = 0.4 mg/dL 0.1-1.3 0864795642) CALCIUM (test code = 9.1 mg/dL 8.6-10.6 5376670690) T PROTEIN (test code = 7.6 g/dL 6.3-8.2 9826341046) ALBUMIN (test code = 4.5 g/dL 3.5-5.0 9271661312) ALK PHOS (test code = 89 U/L 34-122 2280500456) ALTv (test code = 49 U/L 5-50 2-6) AST(SGOT) (test code = 75 U/L 13-40 H 2021177840) eGFR (test code = mL/min/1.73m2 5004010103) TAMIKO (test code = TAMIKO) Association of [...] tests). Lab Interpretation Abnormal (test code = 93770-3) [facility] HospitalCT CHEST PULMONARY [id number] 12:44:11 No pulmonary embolism to the level [...] reviewed this study and agree with theabove report.[facility] (IMMUNOASSAY) - COMPREHENSIVE DRUG [id number] 12:36:45 Test Item Value Reference Range Interpretation Comments AMPHET (test code = Negative Negative 1932515411) CLAUDIA U (test code = Negative Negative 2641671427) BENZO U (test code = Presumptive Positive Negative A 5178993852) Cocaine Metabolite (test Negative Negative code = 6643015585) METHADONE (test code = Negative Negative 3227706578) OPIATES (test code = Negative Negative 0992424644) PCP (test code = Negative Negative 9556517300) THC (test code = Negative Negative 3453274224) TAMIKO (test code = TAMIKO) Urine Drug [...] testing). Lab Interpretation (test Abnormal code = 49470-5) [facility]URINALYSIS2021-06-16 12:18:19 Test Item Value Reference Range Interpretation Comments APPEARANCE (test code = Clear Clear 5514300141) COLOR (test code = Yellow Yellow 7027518103) PH (test code = 4.8-8.0 6054685316) SP GRAVITY (test code = 1.003-1.030 H 9130381751) GLU U QUAL (test code = Normal Normal 6671198265) BLOOD (test code = 1+ Negative A 0327429968) KETONES (test code = Negative Negative 5153944945) PROTEIN (test code = 100 mg/dL Negative A 2887-8) UROBILIN (test code = Normal Normal 7655377430) BILIRUBIN (test code = Negative Negative 5295230942) NITRITE (test code = Negative Negative 4355662663) LEUK GINO (test code = Negative Negative 4262019085) RBC/HPF (test code = See_Comment [Autom ated message] 5771734705) The system [employer] generated this result transmit luis reference range : 0 - 3 HPF. The refe rence range was not u sed to interpret th is result as normal/abnormal . WBC/HPF (test code = See_Comment [Autom ated message] 2367792549) The system [employer] generated this result transmit luis reference range : 0 - 5 HPF. The refe rence range was not u sed to interpret th is result as normal/abnormal . BACTERIA (test code = Few Negative A 2276414437) MUCOUS (test code = Slight Negative LPF A 9184603759) SQ EPITH (test code = <1 HPF 8208198828) HYAL CAST (test code = See_Comment H [Aut omated message] 5860713656) The system [employer] generated this result transmit luis reference range : <=2 LPF. The refere nce range was not u sed to interpret th is result as normal/abnormal . GRAN CASTS (test code = See_Comment H [Au tomated message] 7460570035) The system [employer] generated this result transmit luis reference range : <=1 LPF. The refere nce range was not u sed to interpret th is result as normal/abnormal . Lab Interpretation (test Abnormal code = 30003-3) [facility] HospitalD-XYAJM2083-08-58 12:16:48 Test Item Value Reference Interpretation Comments Range D-DIMER (test code = See_Comment H [Autom ated 1297183898) message] The system which generated this result [...] diagnosis. Lab Interpretation Abnormal (test code = 20065-9) [facility] HospitalACTIVATED PARTIAL THRMPLAS [id number] 12:10:05 Test Item Value Reference Range Interpretation Comments APTT Patient (test See_Comment [Automat ed code = 3173-2) message] The system which generated this result transmitted reference range : 23 - 38 Seconds . The reference range was not used to interpr et this result as normal/abnormal . TAMIKO (test code = TAMIKO) The [facility] patient population mean normal value for aPTT is 30 seconds. Lab Interpretation Normal (test code = 96885-0) [facility] HospitalPROTHROMBIN TIME / [id number] 12:08:09 Test Item Value Reference Range Interpretation [...] tions. Lab Interpretation (test Normal code = 28214-0) [facility] WITH [id number] 11:46:38 Test Item Value Reference Range Interpretation Comments WBC (test code = See_Comment [Automated 5990-2) message] The sy stem which generated this result transmitted reference range : 4.20 - 10.70 10*3/?L. The reference range was not used to interpret this result as normal/abnormal . RBC (test code = See_Comment [Automated 569-8) message] The sy stem which generated this [...] RDW-SD (test code = 43.2 fL 38.5-51.6 71221-9) RDW-CV (test code = 13.8 % 12.1-15.4 788-0) PLT (test code = See_Comment [Automated 777-3) message] The sy stem which generated this result transmitted reference range : 150 - 328 10*3/ ?L. The reference r javier was not used to interpret this result as normal/abnormal . MPV (test code = 9.1 fL 9.8-13.0 L 22668-1) NRBC/100 WBC (test See_Comment [Automat ed code = 6938256568) message] The system which generated this result transmitted reference range : 0.0 - 10.0 /100 WBCs. The refer ence range was not u sed to interpret th is result as normal/abnormal . NRBC x10^3 (test code <0.01 See_Comment [Auto mated = 7901740576) message] The s ystem which generated this result transmitted reference range : 10*3/?L. The reference range was not used to interpret this result as normal/abnormal . GRAN MAT (NEUT) % 58.2 % (test code = 770-8) IMM GRAN % (test code 0.40 % = 9444246577) LYMPH % (test code = 29.0 % 736-9) MONO % (test code = 10.1 % 5905-5) EOS % (test code = 1.2 % 713-8) BASO % (test code = 1.1 % 706-2) GRAN MAT x10^3(ANC) 4.82 10*3/uL 1.99-6.95 (test code = 6507300058) IMM GRAN x10^3 (test 0.03 10*3/uL 0.00-0.06 code = 7776721266) LYMPH x10^3 (test code 2.40 10*3/uL 1.09-3.23 = 731-0) MONO x10^3 (test code 0.84 10*3/uL 0.36-1.02 = 742-7) EOS x10^3 (test code = 0.10 10*3/uL 0.06-0.53 711-2) BASO x10^3 (test code 0.09 10*3/uL 0.01-0.09 = 704-7) Lab Interpretation Abnormal (test code = 02068-8) [facility] GLUCOSE (AUTOMATED)2020-10-24 11:21:11 Test Item Value Reference Range Interpretation Comments POCT GLU (test code = 7055766921) 147 mg/dL 70-110 H Lab Interpretation (test code = Abnormal 68061-1) [facility] [id number] 19:43:06 Test Item Value Reference Range Interpretation Comments TSH (test code = See_Comment [Automated message] 9421312275) The system [employer] generated this result transmitted ref erence range: 0.45 - 4 .70 mIU/L. The refe rence range was not u sed to interpret this result as normal/abnor mal. Lab Interpretation (test Normal code = 76437-6) [facility] 19:41:21 Test Item Value Reference Range Interpretation Comments APTT Patient (test See_Comment [Automat ed code = 3173-2) message] The system which generated this result transmitted reference range : 23 - 38 Seconds . The reference range was not used to interpr et this result as normal/abnormal . TAMIKO (test code = TAMIKO) The [facility] patient population mean normal value for aPTT is 30 seconds. Lab Interpretation Normal (test code = 65396-2) [facility] [id number] 19:29:44 Test Item Value Reference Range Interpretation Comments FREE T4 (test code = See_Comment [Autom ated message] 5087729067) The system [employer] generated this result transmitted ref erence range: 0.78 - 2 .20 ng/dL:. The ref erence range was not u sed to interpret this result as normal/abnor mal. Lab Interpretation (test Normal code = 94793-5) [facility] HospitalTroponin [id number] 19:24:48 Test Item Value Reference Range Interpretation Comments TROPONIN I (test <0.012 See_Comment [Automated code = 7072398558) message] The system which generated this result [...] ? Lab Interpretation Normal (test code = 96468-4) [facility] HospitalN-TERMINAL [id number] 19:21:28 Test Item Value Reference Range Interpretation Comments NT-proBNP (test code 47 pg/mL See_Comment [Autom ated = 3811919507) message] The system which generated this result transmitted reference range : <=125. The reference range was not used to interpret this result as normal/abnormal . TAMIKO (test code = TAMIKO) Biotin has been reported to cause a negative bias, interpret results relative to patient's use of biotin. Lab Interpretation Normal (test code = 89369-4) [facility] HospitalBasi Metabolic Panel (NA, K, CL, CO2, GLUCOSE, BUN, CREATININE, CA)2020-07-28 19:12:46 Test Item Value Reference Range Interpretation Comments NA (test code = 137 mmol/L 135-145 1355700809) K (test code = 3.5 mmol/L 3.5-5.0 7890780375) CL (test code = 99 mmol/L 98-108 3147069353) CO2 TOTAL (test code = 26 mmol/L 23-31 5017625956) AGAP (test code = 2-16 3767913527) BUN (test code = 3 mg/dL 7-23 L 7646000824) GLUCOSE (test code = 96 mg/dL 70-110 3166295792) CREATININE (test code = 0.69 mg/dL 0.60-1.25 9974032785) CALCIUM (test code = 9.1 mg/dL 8.6-10.6 8987184985) eGFR Calculation mL/min/1.73m2 (Non-) (test code = 3550549361) eGFR Calculation mL/min/1.73m2 () (test code = 3001649679) TAMIKO (test code = TAMIKO) Association of [...] tests). Lab Interpretation Abnormal (test code = 17096-1) [facility] HospitalHepatic Function Panel (ALB, T.PRO, BILI T, BU/BC, ALT, AST, ALK PHOS)2020-07-28 19:12:26 Test Item Value Reference Range Interpretation Comments TOTAL BILI (test code = 7272302291) 0.5 mg/dL 0.1-1.1 BILI UNCON (test code = 9554240797) 0.3 mg/dL 0.1-1.1 BILI CONJ (test code = 3668174678) 0.0 mg/dL 0.0-0.3 T PROTEIN (test code = 1512094557) 7.7 g/dL 6.3-8.2 ALBUMIN (test code = 6387957035) 4.7 g/dL 3.5-5.0 ALK PHOS (test code = 1611765554) 115 U/L 34-122 ALTv (test code = 1742-6) 29 U/L 5-50 AST(SGOT) (test code = 0442228117) 27 U/L 13-40 Lab Interpretation (test code = Normal 49971-9) [facility] HospitalCOVID-19 (ID NOW RAPID TESTING)2020-07-28 19:00:24 Test Item Value Reference Range Interpretation Comments SARS-CoV-2 Rapid ID NOW Not Detected Not Detected (test code = 98393-9) TAMIKO (test code = TAMIKO) ID NOW COVID-19 Assay is an isothermal nucleic acid amplification test intended for the qualitative detection of nucleic acid from SARS-CoV-2 viral RNA in nasopharyngeal ([employer]) specimens. It is used under Emergency Use [...] indicated. Lab Interpretation Normal (test code = 00058-9) [facility] / [facility] - DRUG SCREEN [id number] 18:56:58 Test Item Value Reference Range Interpretation Comments BENZO U (test code = Presumptive Positive Negative A 8197682987) CLAUDIA U (test code = Negative Negative 4064080049) AMPHET (test code = Presumptive Positive Negative A 9311079998) THC (test code = Negative Negative 9060646086) METHADONE (test code = Negative Negative 5047614643) Meth U (test code = Presumptive Positive Negative A 0347914817) OPIATES (test code = Presumptive Positive Negative A 5718903555) Cocaine Metabolite (test Negative Negative code = 7840885648) PROPOXY (test code = Negative Negative 2808670371) Tric U (test code = Negative Negative 2734519499) PCP (test code = Negative Negative 0931914611) OXYCOD (test code = Negative Negative 8244503307) TAMIKO (test code = TAMIKO) Urine Drug [...] testing). Lab Interpretation (test Abnormal code = 03159-5) [facility] HospitalUrinalysis2021-03-20 18:54:32 Test Item Value Reference Range Interpretation Comments APPEARANCE (test code = Clear Clear 0948089508) COLOR (test code = Yellow Yellow 6138872659) PH (test code = 4.8-8.0 6428713015) SP GRAVITY (test code = 1.003-1.030 5405405973) GLU U QUAL (test code = Normal Normal 4675920614) BLOOD (test code = Negative Negative 5125903626) KETONES (test code = Negative Negative 7910394412) PROTEIN (test code = Negative Negative 2887-8) UROBILIN (test code = Normal Normal 8830326246) BILIRUBIN (test code = Negative Negative 6618476546) NITRITE (test code = Negative Negative 5205831561) LEUK GINO (test code = Negative Negative 3000886977) RBC/HPF (test code = See_Comment [Autom ated message] 2259337796) The system [employer] generated this result transmitted ref erence range: 0 - 3 HP F. The reference range was not used to int erpret this result as normal/abnormal . WBC/HPF (test code = <1 See_Comment [Autom ated message] 0707436692) The system [employer] generated this result transmitted ref erence range: 0 - 5 HP F. The reference range was not used to int erpret this result as normal/abnormal . BACTERIA (test code = Negative Negative 8102306224) Lab Interpretation (test Normal code = 84782-8) [facility] HospitalProthrombin Time (PT) / [id number] 18:54:27 Test Item Value Reference Range Interpretation Comments PROTIME PATIENT (test See_Comment [Auto mated message] code = 5964-2) The system [employer] generated this result transmitted ref erence range: 12.0 - 1 4.7 Seconds. The re ference range was not u sed to interpret this result as normal/abnor mal. INR (test code = 6301-6) Nor mal INR <1.1; Warfarin Therap eutic range 2.0 to 3. 0 or 2.5 to 3.5, dep ending upon the indica tions. Lab Interpretation (test Normal code = 04417-9) [facility] HospitalCB with [id number] 18:41:23 Test Item Value Reference Range Interpretation Comments WBC (test code = See_Comment [Automated message] 6690-2) The system [employer] generated this result transmitted ref erence range: 4.20 - 1 0.70 10*3/?L. The re ference range was not u sed to interpret this result as normal/abnor mal. RBC (test code = See_Comment [Automated message] 789-8) The system [employer] generated this result transmitted ref erence range: [...] RDW-SD (test code 43.4 fL 38.5-51.6 = 68317-9) RDW-CV (test code 13.2 % 12.1-15.4 = 788-0) PLT (test code = See_Comment [Automated message] 777-3) The system whic h generated this result transmitted ref erence range: 150 - 32 8 10*3/?L. The re ference range was not u sed to interpret this result as normal/abnor mal. MPV (test code = 9.9 fL 9.8-13.0 43997-6) NRBC/100 WBC (test See_Comment [Automat ed message] code = 8753562077) The syste m which generated this result transmitted ref erence range: 0.0 - 10 .0 /100 WBCs. The refer ence range was not u sed to interpret this result as normal/abnor mal. NRBC x10^3 (test <0.01 See_Comment [Automated message] code = 9122817407) The syste m which generated this result transmitted ref erence range: 10*3/?L. The reference range was not used to interpr et this result as normal/abnormal . GRAN MAT (NEUT) % 68.0 % (test code = 770-8) IMM GRAN % (test 0.50 % code = 3703544720) LYMPH % (test code 18.2 % = 736-9) MONO % (test code 11.6 % = 5905-5) EOS % (test code = 1.1 % 713-8) BASO % (test code 0.6 % = 706-2) GRAN MAT 5.40 10*3/uL 1.99-6.95 x10^3(ANC) (test code = 7950658899) IMM GRAN x10^3 0.04 10*3/uL 0.00-0.06 (test code = 3999065547) LYMPH x10^3 (test 1.45 10*3/uL 1.09-3.23 code = 731-0) MONO x10^3 (test 0.92 10*3/uL 0.36-1.02 code = 742-7) EOS x10^3 (test 0.09 10*3/uL 0.06-0.53 code = 711-2) BASO x10^3 (test 0.05 10*3/uL 0.01-0.09 code = 704-7) [facility] [id number] 15:56:00 Test Item Value Reference Range Interpretation Comments TROPONIN I (test 0.006 ng/mL See_Comment [Automated code = 1621672382) message] The system which generated this result [...] ? Lab Interpretation Normal (test code = 86368-9) [facility] [id number] 14:08:00 Test Item Value Reference Range Interpretation Comments TROPONIN I (test 0.021 ng/mL See_Comment Hemolyzed code = 0689792933) specimen [Automated message] The system which generated [...] ? Lab Interpretation Normal (test code = 30047-9) [facility] Met[facility] (NA, K, CL, CO2, GLUCOSE, BUN, CREATININE, CA)2020-06-30 13:25:00 Test Item Value Reference Range Interpretation Comments NA (test code = 138 mmol/L 135-145 1511453433) K (test code = 3.5 mmol/L 3.5-5 8029869920) CL (test code = 107 mmol/L 98-108 4078793501) CO2 TOTAL (test code = 20 mmol/L 23-31 L 1838265751) AGAP (test code = 2-16 8036227544) BUN (test code = 12 mg/dL 7-23 0244849314) GLUCOSE (test code = 93 mg/dL 70-110 0522906511) CREATININE (test code = 0.83 mg/dL 0.6-1.25 7996086529) CALCIUM (test code = 8.9 mg/dL 8.6-10.6 7566836498) eGFR Calculation mL/min/1.73m2 (Non-) (test code = 5029356910) eGFR Calculation mL/min/1.73m2 () (test code = 6249418390) TAMIKO (test code = TAMIKO) Association of [...] tests). Lab Interpretation Abnormal (test code = 58422-8) [facility] with [id number] 13:04:00 Test Item Value Reference Range Interpretation Comments WBC (test code = See_Comment [Automated 3890-2) message] The sy stem which generated this result transmitted reference range : 4.20 - 10.70 10*3/?L. The reference range was not used to interpret this result as normal/abnormal . RBC (test code = See_Comment L [Automated 105-8) message] The sy stem which generated this [...] RDW-SD (test code = 47.3 fL 38.5-51.6 91445-2) RDW-CV (test code = 14.1 % 12.1-15.4 788-0) PLT (test code = See_Comment [Automated 777-3) message] The sy stem which generated this result transmitted reference range : 150 - 328 10*3/ ?L. The reference r javier was not used to interpret this result as normal/abnormal . MPV (test code = 10.1 fL 9.8-13 33955-4) NRBC/100 WBC (test See_Comment [Automat ed code = 8370548088) message] The system which generated this result transmitted reference range : 0.0 - 10.0 /100 WBCs. The refer ence range was not u sed to interpret th is result as normal/abnormal . NRBC x10^3 (test code <0.01 See_Comment [Auto mated = 6766686939) message] The s ystem which generated this result transmitted reference range : 10*3/?L. The reference range was not used to interpret this result as normal/abnormal . GRAN MAT (NEUT) % 45.2 % (test code = 770-8) IMM GRAN % (test code 0.50 % = 0432728600) LYMPH % (test code = 39.0 % 736-9) MONO % (test code = 11.9 % 5905-5) EOS % (test code = 2.6 % 713-8) BASO % (test code = 0.8 % 706-2) GRAN MAT x10^3(ANC) 3.00 10*3/uL 1.99-6.95 (test code = 3693787940) IMM GRAN x10^3 (test 0.03 10*3/uL 0-0.06 code = 1561008610) LYMPH x10^3 (test code 2.58 10*3/uL 1.09-3.23 = 731-0) MONO x10^3 (test code 0.79 10*3/uL 0.36-1.02 = 742-7) EOS x10^3 (test code = 0.17 10*3/uL 0.06-0.53 711-2) BASO x10^3 (test code 0.05 10*3/uL 0.01-0.09 = 704-7) Lab Interpretation Abnormal (test code = 98609-1) [facility] 1 [id number] 05:44:12 No acute cardiopulmonary abnormality. Preliminary Report [...] reviewed this study and agree with the abovereport.[facility] TROPONIN [id number] 05:05:00 Test Item Value Reference Range Interpretation Comments TROPONIN I (test <0.012 See_Comment [Automated code = 8233511499) message] The system which generated this result [...] ? Lab Interpretation Normal (test code = 08105-9) [facility]. METABOLIC PANEL (68606)2019-11-10 05:05:00 Test Item Value Reference Range Interpretation Comments NA (test code = 135 mmol/L 135-145 6962956132) K (test code = 3.6 mmol/L 3.5-5 3387741752) CL (test code = 102 mmol/L 98-108 9179348418) CO2 TOTAL (test code = 23 mmol/L 23-31 2515487383) AGAP (test code = 2-16 0599894112) BUN (test code = 15 mg/dL 7-23 2264161883) GLUCOSE (test code = 93 mg/dL 70-110 7217320592) CREATININE (test code 0.79 mg/dL 0.6-1.25 = 0063091008) TOTAL BILI (test code 0.4 mg/dL 0.1-1.1 = 7500394765) CALCIUM (test code = 9.4 mg/dL 8.6-10.6 0616592925) T PROTEIN (test code = 7.9 g/dL 6.3-8.2 6957319969) ALBUMIN (test code = 4.5 g/dL 3.5-5 0257738036) ALK PHOS (test code = 61 U/L 34-122 2429426645) ALTv (test code = 22 U/L 5-50 1742-6) AST(SGOT) (test code = 26 U/L 13-40 5089194457) eGFR Calculation mL/min/1.73m2 (Non-) (test code = 2481197733) eGFR Calculation mL/min/1.73m2 () (test code = 5629889018) TAMIKO (test code = TAMIKO) Association of [...] or urine or abnormalities in imaging tests). [facility]2020[facility] 04:45:00 Test Item Value Reference Range Interpretation Comments APTT Patient (test See_Comment [Automat ed code = 3173-2) message] The system which generated this result transmitted reference range : 23 - 38 Seconds . The reference range was not used to interpr et this result as normal/abnormal . TAMIKO (test code = TAMIKO) The [facility] patient population mean normal value for aPTT is 30 seconds. Lab Interpretation Normal (test code = 13690-1) [facility] HospitalPROTHROMBIN TIME / [id number] 04:45:00 Test Item Value Reference Range Interpretation [...] tions. Lab Interpretation (test Normal code = 32495-0) [facility] WITH [id number] 04:37:00 Test Item Value Reference Range Interpretation Comments WBC (test code = See_Comment [Automated 5290-2) message] The sy stem which generated this result transmitted reference range : 4.20 - 10.70 10*3/?L. The reference range was not used to interpret this result as normal/abnormal . RBC (test code = See_Comment [Automated 059-8) message] The sy stem which generated this [...] RDW-SD (test code = 39.7 fL 38.5-51.6 56010-5) RDW-CV (test code = 12.7 % 12.1-15.4 788-0) PLT (test code = See_Comment [Automated 777-3) message] The sy stem which generated this result transmitted reference range : 150 - 328 10*3/ ?L. The reference r javier was not used to interpret this result as normal/abnormal . MPV (test code = 10.3 fL 9.8-13 37238-1) NRBC/100 WBC (test See_Comment [Automat ed code = 8137257095) message] The system which generated this result transmitted reference range : 0.0 - 10.0 /100 WBCs. The refer ence range was not u sed to interpret th is result as normal/abnormal . NRBC x10^3 (test code <0.01 See_Comment [Auto mated = 4871402578) message] The s ystem which generated this result transmitted reference range : 10*3/?L. The reference range was not used to interpret this result as normal/abnormal . GRAN MAT (NEUT) % 47.9 % (test code = 770-8) IMM GRAN % (test code 0.20 % = 6718464507) LYMPH % (test code = 33.3 % 736-9) MONO % (test code = 12.1 % 5905-5) EOS % (test code = 5.7 % 713-8) BASO % (test code = 0.8 % 706-2) GRAN MAT x10^3(ANC) 5.08 10*3/uL 1.99-6.95 (test code = 1022266937) IMM GRAN x10^3 (test <0.03 0-0.06 code = 2440681583) LYMPH x10^3 (test code 3.53 10*3/uL 1.09-3.23 H = 731-0) MONO x10^3 (test code 1.28 10*3/uL 0.36-1.02 H = 742-7) EOS x10^3 (test code = 0.61 10*3/uL 0.06-0.53 H 711-2) BASO x10^3 (test code 0.09 10*3/uL 0.01-0.09 = 704-7) Lab Interpretation Abnormal (test code = 10549-0) [facility]2020-[facility]-21 16:01:00 Test Item Value Reference Range Interpretation Comments APPEARANCE (test code = Clear Clear 5314004840) COLOR (test code = Other Yellow A 0501210829) PH (test code = 4.8-8.0 4360644289) SP GRAVITY (test code = <=1.005 1.003-1.030 3990714393) GLU U QUAL (test code = Negative Negative 6837341670) BLOOD (test code = Negative Negative 8239279413) KETONES (test code = Negative Negative 8671110733) PROTEIN (test code = Negative Negative 2887-8) UROBILIN (test code = 0.2 mg/dL See_Comment [Auto mated message] 5830281326) The system [employer] generated this result transmit luis reference range : 0-1.0 mg/dL. Th e reference range was not used to interpret this result as normal/abnormal . BILIRUBIN (test code = Negative Negative 9676476219) NITRITE (test code = Negative Negative 0117224319) LEUK GINO (test code = Negative Negative 9155196035) RBC/HPF (test code = See_Comment [Autom ated message] 4010964222) The system [employer] generated this result transmit luis reference range : 0 - 3 HPF. The refe rence range was not u sed to interpret th is result as normal/abnormal . WBC/HPF (test code = See_Comment [Autom ated message] 2422490235) The system [employer] generated this result transmit luis reference range : 0 - 5 HPF. The refe rence range was not u sed to interpret th is result as normal/abnormal . BACTERIA (test code = Negative Negative 3671958346) MUCOUS (test code = Slight Negative LPF A 5492316366) SQ EPITH (test code = HPF 3960537103) Lab Interpretation (test Abnormal code = 49698-3) [facility]. METABOLIC PANEL (18327)2019-09-29 15:57:00 Test Item Value Reference Range Interpretation Comments NA (test code = 140 mmol/L 135-145 7986451157) K (test code = 4.8 mmol/L 3.5-5 8577167228) CL (test code = 106 mmol/L 98-108 0747207048) CO2 TOTAL (test code = 24 mmol/L 23-31 4567808546) AGAP (test code = 2-16 7466757895) BUN (test code = 14 mg/dL 7-23 6459426581) GLUCOSE (test code = 94 mg/dL 70-110 4231403234) CREATININE (test code 0.66 mg/dL 0.6-1.25 = 3812980804) TOTAL BILI (test code 0.5 mg/dL 0.1-1.1 = 8106772213) CALCIUM (test code = 9.5 mg/dL 8.6-10.6 0915636455) T PROTEIN (test code = 8.1 g/dL 6.3-8.2 2728500266) ALBUMIN (test code = 4.6 g/dL 3.5-5 6737152531) ALK PHOS (test code = 41 U/L 34-122 8067982163) ALTv (test code = 17 U/L 5-50 1742-6) AST(SGOT) (test code = 29 U/L 13-40 1905451735) eGFR Calculation mL/min/1.73m2 (Non-) (test code = 0314024401) eGFR Calculation mL/min/1.73m2 () (test code = 0978856086) TAMIKO (test code = TAMIKO) Association of [...] or urine or abnormalities in imaging tests). [facility] WITH [id number] 15:34:00 Test Item Value Reference Range Interpretation [...] RDW-SD (test code = 41.0 fL 38.5-51.6 75143-1) RDW-CV (test code = 12.5 % 12.1-15.4 788-0) PLT (test code = See_Comment [Automated 777-3) message] The sy stem which generated this result transmitted reference range : 150 - 328 10*3/ ?L. The reference r javier was not used to interpret this result as normal/abnormal . MPV (test code = 10.3 fL 9.8-13 74500-4) NRBC/100 WBC (test See_Comment [Automat ed code = 1379095486) message] The system which generated this result transmitted reference range : 0.0 - 10.0 /100 WBCs. The refer ence range was not u sed to interpret th is result as normal/abnormal . NRBC x10^3 (test code <0.01 See_Comment [Auto mated = 5583714133) message] The s ystem which generated this result transmitted reference range : 10*3/?L. The reference range was not used to interpret this result as normal/abnormal . GRAN MAT (NEUT) % 54.5 % (test code = 770-8) IMM GRAN % (test code 0.20 % = 0263598959) LYMPH % (test code = 28.0 % 736-9) MONO % (test code = 10.0 % 5905-5) EOS % (test code = 6.6 % 713-8) BASO % (test code = 0.7 % 706-2) GRAN MAT x10^3(ANC) 4.68 10*3/uL 1.99-6.95 (test code = 9745278687) IMM GRAN x10^3 (test <0.03 0-0.06 code = 2720678350) LYMPH x10^3 (test code 2.41 10*3/uL 1.09-3.23 = 731-0) MONO x10^3 (test code 0.86 10*3/uL 0.36-1.02 = 742-7) EOS x10^3 (test code = 0.57 10*3/uL 0.06-0.53 H 711-2) BASO x10^3 (test code 0.06 10*3/uL 0.01-0.09 = 704-7) Lab Interpretation Abnormal (test code = 13192-0) [facility] [id number] 13:56:00 Test Item Value Reference Range Interpretation Comments TROPONIN I (test <0.012 See_Comment [Automated code = 6184793063) message] The system which generated this result [...] ? Lab Interpretation Normal (test code = 88874-0) [facility] / [id number] 13:44:00 Test Item Value Reference Range Interpretation Comments PROTIME PATIENT (test See_Comment [Auto mated message] code = 5964-2) The system [employer] generated this result transmitted ref erence range: 12.0 - 1 4.7 Seconds. The re ference range was not u sed to interpret this result as normal/abnor mal. INR (test code = 6301-6) Nor mal INR <1.1; Warfarin Therap eutic range 2.0 to 3. 0 or 2.5 to 3.5, dep ending upon the indica tions. Lab Interpretation (test Normal code = 64773-5) [facility] METABOLIC PAN[facility] (93161)2019-06-16 13:44:00 Test Item Value Reference Range Interpretation Comments NA (test code = 138 mmol/L 135-145 8938450829) K (test code = 3.9 mmol/L 3.5-5 6087281886) CL (test code = 100 mmol/L 98-108 2774418448) CO2 TOTAL (test code = 28 mmol/L 23-31 1591825129) AGAP (test code = 2-16 9768315196) BUN (test code = 14 mg/dL 7-23 3199751011) GLUCOSE (test code = 108 mg/dL 70-110 9603480913) CREATININE (test code = 0.75 mg/dL 0.6-1.25 3687665637) TOTAL BILI (test code = 0.5 mg/dL 0.1-1.5 1463623897) CALCIUM (test code = 8.8 mg/dL 8.6-10.6 8143414770) T PROTEIN (test code = 7.3 g/dL 6.3-8.2 0518052586) ALBUMIN (test code = 4.4 g/dL 3.5-5 1647413273) ALK PHOS (test code = 63 U/L 34-122 7710344738) ALTv (test code = 48 U/L 5-50 1742-6) AST(SGOT) (test code = 47 U/L 13-40 H 8259941644) eGFR Calculation mL/min/1.73m2 (Non-) (test code = 4376083442) eGFR Calculation mL/min/1.73m2 () (test code = 3512152057) TAMIKO (test code = TAMIKO) Association of [...] tests). Lab Interpretation Abnormal (test code = 76988-0) [facility] [id number] 13:44:00 Test Item Value Reference Range Interpretation Comments LIPASE (test code = 1720283159) 61 U/L 0-220 Lab Interpretation (test code = Normal 62427-9) [facility] 13:43:00 Test Item Value Reference Range Interpretation Comments APTT Patient (test See_Comment [Automat ed code = 3173-2) message] The system which generated this result transmitted reference range : 23 - 38 Seconds . The reference range was not used to interpr et this result as normal/abnormal . TAMIKO (test code = TAMIKO) The [facility] patient population mean normal value for aPTT is 30 seconds. Lab Interpretation Normal (test code = 20599-2) [facility] WITH [id number] 13:30:00 Test Item Value Reference Range Interpretation [...] RDW-SD (test code = 40.6 fL 38.5-51.6 75408-6) RDW-CV (test code = 12.6 % 12.1-15.4 788-0) PLT (test code = See_Comment [Automated 777-3) message] The sy stem which generated this result transmitted reference range : 150 - 328 10*3/ ?L. The reference r javier was not used to interpret this result as normal/abnormal . MPV (test code = 9.7 fL 9.8-13 L 03640-3) NRBC/100 WBC (test See_Comment [Automat ed code = 0601494632) message] The system which generated this result transmitted reference range : 0.0 - 10.0 /100 WBCs. The refer ence range was not u sed to interpret th is result as normal/abnormal . NRBC x10^3 (test code <0.01 See_Comment [Auto mated = 0990515315) message] The s ystem which generated this result transmitted reference range : 10*3/?L. The reference range was not used to interpret this result as normal/abnormal . GRAN MAT (NEUT) % 52.5 % (test code = 770-8) IMM GRAN % (test code 0.30 % = 5288404778) LYMPH % (test code = 29.9 % 736-9) MONO % (test code = 11.5 % 5905-5) EOS % (test code = 4.5 % 713-8) BASO % (test code = 1.3 % 706-2) GRAN MAT x10^3(ANC) 3.14 10*3/uL 1.99-6.95 (test code = 3125067252) IMM GRAN x10^3 (test <0.03 0-0.06 code = 1003875292) LYMPH x10^3 (test code 1.79 10*3/uL 1.09-3.23 = 731-0) MONO x10^3 (test code 0.69 10*3/uL 0.36-1.02 = 742-7) EOS x10^3 (test code = 0.27 10*3/uL 0.06-0.53 711-2) BASO x10^3 (test code 0.08 10*3/uL 0.01-0.09 = 704-7) Lab Interpretation Abnormal (test code = 16356-1) [facility] [id number] 19:02:00 Test Item Value Reference Range Interpretation Comments TROPONIN I (test <0.012 See_Comment [Automated code = 8843537907) message] The system which generated this result [...] ? Lab Interpretation Normal (test code = 04216-0) [facility]. METABOLIC PANEL ([id number])2019-06-15 18:50:00 Test Item Value Reference Range Interpretation Comments NA (test code = 145 mmol/L 135-145 3890485770) K (test code = 4.1 mmol/L 3.5-5 5541673960) CL (test code = 103 mmol/L 98-108 0567966136) CO2 TOTAL (test code = 32 mmol/L 23-31 H 3544238734) AGAP (test code = 2-16 1790030523) BUN (test code = 11 mg/dL 7-23 9081805274) GLUCOSE (test code = 108 mg/dL 70-110 1864193381) CREATININE (test code = 0.73 mg/dL 0.6-1.25 8312197382) TOTAL BILI (test code = 0.5 mg/dL 0.1-1.3 5862711684) CALCIUM (test code = 9.3 mg/dL 8.6-10.6 3932595491) T PROTEIN (test code = 8.1 g/dL 6.3-8.2 1081696534) ALBUMIN (test code = 4.9 g/dL 3.5-5 7628736409) ALK PHOS (test code = 65 U/L 34-122 6156717304) ALTv (test code = 61 U/L 5-50 H 1742-6) AST(SGOT) (test code = 45 U/L 13-40 H 2622955783) eGFR Calculation mL/min/1.73m2 (Non-) (test code = 5649063277) eGFR Calculation mL/min/1.73m2 () (test code = 7463618298) TAMIKO (test code = TAMIKO) Association of [...] tests). Lab Interpretation Abnormal (test code = 26359-8) [facility]2020-02-05 18:50:00 Test Item Value Reference Range Interpretation Comments MAGNESIUM (test code = 4085596644) 2.2 mg/dL 1.7-2.4 Lab Interpretation (test code = Normal 24064-0) [facility] WITH [id number] 18:39:00 Test Item Value Reference Range Interpretation Comments WBC (test code = See_Comment [Automated message] 6690-2) The system [employer] generated this result transmitted ref erence range: 4.20 - 1 0.70 10*3/?L. The re ference range was not u sed to interpret this result as normal/abnor mal. RBC (test code = See_Comment [Automated message] 789-8) The system [employer] generated this result transmitted ref erence range: [...] RDW-SD (test code 41.5 fL 38.5-51.6 = 70146-6) RDW-CV (test code 12.9 % 12.1-15.4 = 788-0) PLT (test code = See_Comment [Automated message] 777-3) The system [employer] generated this result transmitted ref erence range: 150 - 32 8 10*3/?L. The re ference range was not u sed to interpret this result as normal/abnor mal. MPV (test code = 10.0 fL 9.8-13 75165-4) NRBC/100 WBC (test See_Comment [Automat ed message] code = 1741324777) The syste [employer] which generated this result transmitted ref erence range: 0.0 - 10 .0 /100 WBCs. The refer ence range was not u sed to interpret this result as normal/abnor mal. NRBC x10^3 (test <0.01 See_Comment [Automated message] code = 9629752218) The syste m which generated this result transmitted ref erence range: 10*3/?L. The reference range was not used to interpr et this result as normal/abnormal . GRAN MAT (NEUT) % 45.9 % (test code = 770-8) IMM GRAN % (test 0.10 % code = 1335199744) LYMPH % (test code 39.6 % = 736-9) MONO % (test code 8.6 % = 5905-5) EOS % (test code = 4.6 % 713-8) BASO % (test code 1.2 % = 706-2) GRAN MAT 3.36 10*3/uL 1.99-6.95 x10^3(ANC) (test code = 8357931658) IMM GRAN x10^3 <0.03 0-0.06 (test code = 7114146957) LYMPH x10^3 (test 2.91 10*3/uL 1.09-3.23 code = 731-0) MONO x10^3 (test 0.63 10*3/uL 0.36-1.02 code = 742-7) EOS x10^3 (test 0.34 10*3/uL 0.06-0.53 code = 711-2) BASO x10^3 (test 0.09 10*3/uL 0.01-0.09 code = 704-7) [facility]XR [facility] 1 [id number] 18:31:36HISTORY: SOB. TECHNIQUE: Portable AP erect view [...] limits. CONCLUSIONS: No signs of acute cardiopulmonary disease.[facility]PO[facility]U [facility] AND B (MOLECULAR)2019 16:36:00 Test Item Value Reference Range Interpretation Comments POCT INFLUENZA A (test code = negative Negative - Negative 3840) POCT INFLUENZA B (test code = negative Negative - Negative 3841) Lab Interpretation (test code = Normal 34415-5) [facility] A STREP (MOLECULAR)2019 16:34:00 Test Item Value Reference Range Interpretation Comments POCT GP A STREP (test code = negative Negative - Negative 22221-0) Lab Interpretation (test code = Normal 02284-4) [facility]2019-09-16 23:07:00 Test Item Value Reference Range Interpretation Comments APPEARANCE (test code = Clear Clear 3024531764) COLOR (test code = Yellow Yellow 5261753652) PH (test code = 4.8-8.0 7973848640) SP GRAVITY (test code = 1.003-1.030 7995516386) GLU U QUAL (test code = Normal Normal 8470443967) BLOOD (test code = Negative Negative 1752351712) KETONES (test code = 5 mg/dL Negative A 8249450826) PROTEIN (test code = Negative Negative 2887-8) UROBILIN (test code = Normal Normal 2687428348) BILIRUBIN (test code = Negative Negative 8476529187) NITRITE (test code = Negative Negative 5559045652) LEUK GINO (test code = Negative Negative 6740595219) RBC/HPF (test code = See_Comment [Autom ated message] 7408223772) The system [employer] generated this result transmitted ref erence range: 0 - 3 HP F. The reference range was not used to int erpret this result as normal/abnormal . WBC/HPF (test code = See_Comment [Autom ated message] 6271406494) The system [employer] generated this result transmitted ref erence range: 0 - 5 HP F. The reference range was not used to int erpret this result as normal/abnormal . BACTERIA (test code = Negative Negative 4766614124) MUCOUS (test code = Slight Negative LPF A 8761042100) HYAL CAST (test code = See_Comment H [Aut omated message] 3931889866) The system [employer] generated this result transmitted ref erence range: <=2 LPF. The reference range was not used to int erpret this result as normal/abnormal . Lab Interpretation (test Abnormal code = 77601-9) [facility]TR[facility] [id number] 22:42:00 Test Item Value Reference Range Interpretation Comments TROPONIN I (test 0.002 ng/mL See_Comment [Automated code = 1474514443) message] The system which generated this result [...] ? Lab Interpretation Normal (test code = 36800-1) [facility] - DRUG SCREEN [id number] 22:36:00 Test Item Value Reference Range Interpretation Comments BENZO U (test code = Presumptive Positive Negative A 1914967981) CLAUDIA U (test code = Negative Negative 5361827382) AMPHET (test code = Negative Negative 7387141812) THC (test code = Negative Negative 8863168140) METHADONE (test code = Negative Negative 6473010220) Meth U (test code = Negative Negative 4049955832) OPIATES (test code = Negative Negative 9372177634) Cocaine Metabolite (test Negative Negative code = 1512449547) PROPOXY (test code = Negative Negative 1212384501) Tric U (test code = Negative Negative 2599213501) PCP (test code = Negative Negative 3209458062) OXYCOD (test code = Negative Negative 9911054418) TAMIKO (test code = TAMIKO) Urine Drug [...] testing). Lab Interpretation (test Abnormal code = 37673-8) [facility]. METABOLIC PANEL (89029)2019-01-24 22:30:00 Test Item Value Reference Range Interpretation Comments NA (test code = 148 mmol/L 135-145 H 1301719877) K (test code = 4.0 mmol/L 3.5-5 7834952886) CL (test code = 110 mmol/L 98-108 H 3485938801) CO2 TOTAL (test code = 24 mmol/L 23-31 6228711753) AGAP (test code = 2-16 0638066128) BUN (test code = 9 mg/dL 7-23 8721011210) GLUCOSE (test code = 85 mg/dL 70-110 4897967439) CREATININE (test code = 0.67 mg/dL 0.6-1.25 7275763222) TOTAL BILI (test code = 0.2 mg/dL 0.1-1.5 5658851417) CALCIUM (test code = 8.7 mg/dL 8.6-10.6 0195705673) T PROTEIN (test code = 7.8 g/dL 6.3-8.2 7510960150) ALBUMIN (test code = 4.7 g/dL 3.5-5 0691202422) ALK PHOS (test code = 47 U/L 34-122 8521079857) ALT(SGPT) (test code = 19 U/L 9-51 1039141098) AST(SGOT) (test code = 25 U/L 13-40 2991873864) eGFR Calculation mL/min/1.73m2 (Non-) (test code = 2693610093) eGFR Calculation mL/min/1.73m2 () (test code = 1100949271) TAMIKO (test code = TAMIKO) Association of [...] tests). Lab Interpretation Abnormal (test code = 34296-8) [facility]2019-[facility] 22:30:00 Test Item Value Reference Range Interpretation Comments LIPASE (test code = 8759318765) 112 U/L 0-220 Lab Interpretation (test code = Normal 66733-1) [facility]CB WITH [id number] 22:07:00 Test Item Value Reference Range Interpretation Comments WBC (test code = See_Comment [Automated message] 6690-2) The system [employer] generated this result transmitted ref erence range: 4.20 - 1 0.70 10*3/?L. The re ference range was not u sed to interpret this result as normal/abnor mal. RBC (test code = See_Comment [Automated message] 789-8) The system [employer] generated this result transmitted ref erence range: [...] RDW-SD (test code 42.0 fL 38.5-51.6 = 23955-9) RDW-CV (test code 12.8 % 12.1-15.4 = 788-0) PLT (test code = See_Comment [Automated message] 777-3) The system [employer] generated this result transmitted ref erence range: 150 - 32 8 10*3/?L. The re ference range was not u sed to interpret this result as normal/abnor mal. MPV (test code = 10.7 fL 9.8-13 27142-6) NRBC/100 WBC (test See_Comment [Automat ed message] code = 6099314798) The syste m which generated this result transmitted ref erence range: 0.0 - 10 .0 /100 WBCs. The refer ence range was not u sed to interpret this result as normal/abnor mal. NRBC x10^3 (test <0.01 See_Comment [Automated message] code = 8432280547) The syste m which generated this result transmitted ref erence range: 10*3/?L. The reference range was not used to interpr et this result as normal/abnormal . GRAN MAT (NEUT) % 55.2 % (test code = 770-8) IMM GRAN % (test 0.20 % code = 8074489152) LYMPH % (test code 29.8 % = 736-9) MONO % (test code 9.8 % = 5905-5) EOS % (test code = 4.4 % 713-8) BASO % (test code 0.6 % = 706-2) GRAN MAT 4.72 10*3/uL 1.99-6.95 x10^3(ANC) (test code = 6858124449) IMM GRAN x10^3 <0.03 0-0.06 (test code = 3632242933) LYMPH x10^3 (test 2.55 10*3/uL 1.09-3.23 code = 731-0) MONO x10^3 (test 0.84 10*3/uL 0.36-1.02 code = 742-7) EOS x10^3 (test 0.38 10*3/uL 0.06-0.53 code = 711-2) BASO x10^3 (test 0.05 10*3/uL 0.01-0.09 code = 704-7) [facility]2019-08-13 23:03:00 Test Item Value Reference Range Interpretation Comments APPEARANCE (test code = Clear Clear 1001643033) COLOR (test code = Yellow Yellow 5625510363) PH (test code = 4.8-8.0 8185691235) SP GRAVITY (test code = >=1.030 1.003-1.030 7590901101) GLU U QUAL (test code = Negative Negative 3786800264) BLOOD (test code = Negative Negative 4622398435) KETONES (test code = Negative Negative 6529353018) PROTEIN (test code = Negative Negative 2887-8) UROBILIN (test code = 0.2 mg/dL See_Comment [Auto mated message] 9412133546) The system [employer] generated this result transmit luis reference range : 0-1.0 mg/dL. Th e reference range was not used to interpret this result as normal/abnormal . BILIRUBIN (test code = Negative Negative 1506907182) NITRITE (test code = Negative Negative 4310644497) LEUK GINO (test code = Negative Negative 6748109608) RBC/HPF (test code = See_Comment [Autom ated message] 8145393523) The system [employer] generated this result transmit luis reference range : 0 - 3 HPF. The refe rence range was not u sed to interpret th is result as normal/abnormal . WBC/HPF (test code = See_Comment [Autom ated message] 3971446927) The system [employer] generated this result transmit luis reference range : 0 - 5 HPF. The refe rence range was not u sed to interpret th is result as normal/abnormal . BACTERIA (test code = Few Negative A 1452135756) Lab Interpretation (test Abnormal code = 92900-6) [facility] MET[facility]OLIC PANEL (41140)2018-12-21 22:57:00 Test Item Value Reference Range Interpretation Comments NA (test code = 145 mmol/L 135-145 1827894461) K (test code = 3.7 mmol/L 3.5-5 3104965424) CL (test code = 106 mmol/L 98-108 8720945980) CO2 TOTAL (test code = 24 mmol/L 23-31 6014794124) AGAP (test code = 2-16 3545681863) BUN (test code = 9 mg/dL 7-23 8621856624) GLUCOSE (test code = 129 mg/dL 70-110 H 0284080846) CREATININE (test code = 0.75 mg/dL 0.6-1.25 1341992400) TOTAL BILI (test code = 0.3 mg/dL 0.1-1.2 0272280475) CALCIUM (test code = 9.1 mg/dL 8.6-10.6 3657792838) T PROTEIN (test code = 7.9 g/dL 6.3-8.2 1762099061) ALBUMIN (test code = 4.5 g/dL 3.5-5 1220998080) ALK PHOS (test code = 66 U/L 34-122 6479577172) ALT(SGPT) (test code = 62 U/L 9-51 H 3459001700) AST(SGOT) (test code = 42 U/L 13-40 H 0081456617) eGFR Calculation mL/min/1.73m2 (Non-) (test code = 9949978760) eGFR Calculation mL/min/1.73m2 () (test code = 5856769760) TAMIKO (test code = TAMIKO) Association of [...] tests). Lab Interpretation Abnormal (test code = 19252-3) [facility]2019-[facility] 22:57:00 Test Item Value Reference Range Interpretation Comments LIPASE (test code = 1467160592) 296 U/L 0-220 H Lab Interpretation (test code = Abnormal 43294-0) [facility]2019-08-13 22:57:00 Test Item Value Reference Range Interpretation Comments MAGNESIUM (test code = 5611878621) 1.9 mg/dL 1.7-2.4 Lab Interpretation (test code = Normal 96692-2) [facility] WITH [id number] 22:38:00 Test Item Value Reference Range Interpretation Comments WBC (test code = See_Comment [Automated 6390-2) message] The sy stem which generated this result transmitted reference range : 4.20 - 10.70 10*3/?L. The reference range was not used to interpret this result as normal/abnormal . RBC (test code = See_Comment [Automated 291-8) message] The sy stem which generated this [...] RDW-SD (test code = 44.4 fL 38.5-51.6 26696-3) RDW-CV (test code = 13.3 % 12.1-15.4 788-0) PLT (test code = See_Comment [Automated 777-3) message] The sy stem which generated this result transmitted reference range : 150 - 328 10*3/ ?L. The reference r javier was not used to interpret this result as normal/abnormal . MPV (test code = 10.0 fL 9.8-13 03305-5) NRBC/100 WBC (test See_Comment [Automat ed code = 3028184228) message] The system which generated this result transmitted reference range : 0.0 - 10.0 /100 WBCs. The refer ence range was not u sed to interpret th is result as normal/abnormal . NRBC x10^3 (test code <0.01 See_Comment [Auto mated = 8398804004) message] The s ystem which generated this result transmitted reference range : 10*3/?L. The reference range was not used to interpret this result as normal/abnormal . GRAN MAT (NEUT) % 53.1 % (test code = 770-8) IMM GRAN % (test code 0.50 % = 2915100334) LYMPH % (test code = 27.1 % 736-9) MONO % (test code = 10.7 % 5905-5) EOS % (test code = 7.7 % 713-8) BASO % (test code = 0.9 % 706-2) GRAN MAT x10^3(ANC) 5.47 10*3/uL 1.99-6.95 (test code = 6450009758) IMM GRAN x10^3 (test 0.05 10*3/uL 0-0.06 code = 2608184938) LYMPH x10^3 (test code 2.79 10*3/uL 1.09-3.23 = 731-0) MONO x10^3 (test code 1.10 10*3/uL 0.36-1.02 H = 742-7) EOS x10^3 (test code = 0.79 10*3/uL 0.06-0.53 H 711-2) BASO x10^3 (test code 0.09 10*3/uL 0.01-0.09 = 704-7) Lab Interpretation Abnormal (test code = 41830-4) [facility] HospitalMYOCARD IMAGING, MULTI, [id number] 14:45:00FINAL REPORT PROCEDURE: Rest/Stress MYOCARDIAL PERFUSION SPECT with treadmill\\XA9\\ CPT CODE: 23505 INDICATION: Chest pain HISTORY: Cardiac risk factors: [...] tracer distribution. 6. No previous [facility] study for comparison. NONINVASIVE RISK STRATIFICATION: The above findings are considered low risk (<1% annual mortality rate) based on the following criterion:- Normal or small myocardial perfusion defect at rest or with stress(JACC. 2012;59(9):857-81.) Signed: Ignacio Ruvalcaba Verified Date/Time: 03/17/2017 14:45:11 Reading Location: [place] [address] [facility] Reading Room HEMOGLOBIN [id number] 08:29:00 Test Item Value Reference Range Interpretation Comments HEMOGLOBIN A1C (BEAKER) (test code = 5.5 % 4.3-6.1 368) CREATINE KINASE (CK), TOTAL AND [id number] 02:45:00 Test Item Value Reference Range Interpretation Comments CREATINE KINASE TOTAL (BEAKER) 34 U/L 29-200 (test code = 380) CREATINE KINASE-MB (BEAKER) (test 0.4 ng/mL 0.0-6.6 code = 750) CREATINE KINASE-MB INDEX (BEAKER) 1.2 % (test code = 395) CK-MB Reference Range:<6.7 Normal6.7-10.0 Borderline>10.0 AbnormalTROPONIN [id number] 02:45:00 Test Item Value Reference Range Interpretation [...] and persistent tachyarrhythmia.RAD, CHEST, 1 VIEW, NON [id number] 20:40:00Reason for exam:->chest painShould this be performed at the bedside?->YesFINAL REPORT EXAMINATION: AP PORTABLE CHEST RADIOGRAPH CLINICAL INDICATION:Chest pain IMPRESSION: Compared with 04/30/2016. No evidence of focal lung consolidation, pulmonary edema or pleural effusion. The heart size is normal. Mediastinal contours are sharp. No evidence of an acute osseous abnormality or pneumothorax. Signed: Igor Castle MDReport Verified Date/Time: 03/16/2017 20:40:21 Reading Location: [facility] [facility] Reading Room B-TYPE NATRIURETIC FACTOR (BNP)2017-03-16 20:30:00 Test Item Value Reference Range Interpretation Comments B-TYPE NATRIURETIC PEPTIDE (BEAKER) < pg/mL 0-100 (test code = 700) COMPREHENSIVE METABOLIC [id number] 20:30:00 Test Item Value Reference Range Interpretation [...] ATED GFR. CREATINE KINASE (CK), TOTAL AND [id number] 20:28:00 Test Item Value Reference Range Interpretation Comments CREATINE KINASE TOTAL (BEAKER) 50 U/L 29-200 (test code = 380) CREATINE KINASE-MB (BEAKER) (test 0.5 ng/mL 0.0-6.6 code = 750) CREATINE KINASE-MB INDEX (BEAKER) 1.0 % (test code = 395) CK-MB Reference Range:<6.7 Normal6.7-10.0 Borderline>10.0 AbnormalTROPONIN [id number] 20:28:00 Test Item Value Reference Range Interpretation [...] failure, acidosis, acute neurological disease, and persistent tachyarrhythmia.[id number] 20:21:00 Test Item Value Reference Range Interpretation Comments MAGNESIUM (BEAKER) 2.2 mg/dL 1.6-2.6 Specimen slightly (test code = 627) hemolyzed [id number] 20:21:00 Test Item Value Reference Range Interpretation Comments PHOSPHORUS (BEAKER) 3.9 mg/dL 2.3-4.7 Specimen slightly (test code = 604) hemolyzed LIPID [id number] 20:21:00 Test Item Value Reference Range Interpretation [...] Borderline 130-159 High 160-189 Very High >=190PROTHROMBIN TIME/[id number] 20:07:00 Test Item Value Reference Range Interpretation Comments PROTIME (BEAKER) (test code = 13.0 seconds 11.7-14.7 759) INR (BEAKER) (test code = 370) 1.0 <=5.9 RECOMMENDED COUMADIN/WARFARIN INR THERAPY RANGESSTANDARD DOSE: 2.0 - 3.0 Includes: PROPHYLAXIS forvenous thrombosis, systemic embolization; TREATMENT for venous thrombosis and/or pulmonary embolus.HIGH RISK: Target INR is 2.5-3.5 for patients with mechanical heart valves.[id number] 20:07:00 Test Item Value Reference Range Interpretation Comments PARTIAL THROMBOPLASTIN TIME 26.9 seconds 22.5-36.0 (BEAKER) (test code = 760) CBC W/PLT COUNT & AUTO [id number] 19:57:00 Test Item Value Reference Range Interpretation [...] % 0-1 PERCENT (BEAKER) (test code = 8342)
[2021-06-01] MEDS ORDERED: NA CHLORIDE 0.9% 1,000 ML ONE (14:55)
[2021-06-01] MEDS ORDERED: DIAZEPAM 10 MG/2 ML INJ SYRINGE ONE (14:55)
[2021-06-01 15:04] LABS: Urine Blood Negative (Negative); Urine Glucose Negative (Negative); Urine Protein 1+ (Negative); Urine Specific Gravity 1.015 (1.005-1.030); Urine pH 5.5 (5.0-7.0)
[2021-06-01 15:05] LABS: Absolute Lymphocytes (CBC) 1.8 K/uL (0.7-4.9); Hematocrit 44.2 % (39.6-49.0); Lymphocytes % 33.8 % (15.3-44.8); MPV 7.5 fL (7.6-11.3); RBC Red Blood Cell Count 4.92 M/uL (4.33-5.43)
[2021-06-01 15:14] LABS: Protime INR 0.93
[2021-06-01 15:17] LABS: Barbiturates NEGATIVE (NEGATIVE); Benzodiazepines NEGATIVE (NEGATIVE); Cocaine NEGATIVE (NEGATIVE); METHAMPHETAM NEGATIVE (NEGATIVE); Methadone NEGATIVE (NEGATIVE); Opiates NEGATIVE (NEGATIVE); Phencyclidine NEGATIVE (NEGATIVE); THC Cannibis NEGATIVE (NEGATIVE)
[2021-06-01 15:22] LABS: ALT/SGPT 31 U/L (12-78); AST/SGOT 24 U/L (15-37); Albumin 3.4 g/dL (3.4-5.0); Alkaline Phosphatase 90 U/L (45-117); BUN Blood Urea Nitrogen 3 mg/dL (7-18); Bicarbonate 28 mmol/L (21-32); Bilirubin Direct < 0.1 mg/dL (0-0.2); Bilirubin Total 0.2 mg/dL (0.2-1.0); Glucose Level 111 mg/dL (74-106); Potassium 3.8 mmol/L (3.5-5.1); Protein, Total 7.5 g/dL (6.4-8.2); Sodium Level 139 mmol/L (136-145)
[2021-06-01] MEDS ORDERED: LORazepam 2 MG/ML VIAL ONE ×4 (15:36→21:13)
--- NOTE | 2021-06-01 16:40 | ER ---
Nurse's Notes Former[facility] Name: Srini Simpson Age: 36 yrs Sex: Male : 1985 Arrival Date: 06/01/2021 Time: 14:34 Bed 17 Private MD: Diagnosis: Sedative, hypnotic or anxiolytic use, unspecified with withdrawal, unspecified;Suicidal ideations Presentation: 06/01 14:34 Chief complaint: EMS states: ALCOHOL ABUSE AND PSYCHIATRIC PROBLEM. PT REQUESTING DETOX bp AND PSYCH TRANSFER. Coronavirus screen: At this time, the client does not indicate any symptoms associated with coronavirus-19. Ebola Screen: No symptoms or risks identified at this time. Initial Sepsis Screen: Does the patient meet any 2 criteria? HR > 90 bpm. No. Patient's initial sepsis screen is negative. Does the patient have a suspected source of infection? No. Patient's initial sepsis screen is negative. Risk Assessment: Do you want to hurt yourself or someone else? Patient reports desire/thoughts of hurting themselves or someone else. Provider notified. Onset of symptoms was June 01, 2021 at 03:00. Care prior to arrival: Medication(s) given: Normal saline infusion, 1000 mL, ATIVAN 2 MG IV initiated. 18 GA, in the left antecubital area. 14:34 Method Of Arrival: EMS: [facility] bp 14:34 Acuity: CHRISTINE 2 bp Triage Assessment: 14:37 General: Appears in no apparent distress. comfortable, Behavior is cooperative, bp appropriate for age, anxious. Pain: Denies pain. EENT: No deficits noted. Neuro: Level of Consciousness is awake, alert, obeys commands, Oriented to Appropriate for age. Cardiovascular: Reports. Respiratory: No deficits noted. GI: No signs and/or symptoms were reported involving the gastrointestinal system. : No signs and/or symptoms were reported regarding the genitourinary system. Derm: No deficits noted. Musculoskeletal: No deficits noted. Historical: - Allergies: 14:37 No Known Drug Allergies; bp - Home Meds: 14:37 metoprolol tartrate 50 mg Oral tab 1 tab 2 times per day [Active]; lisinopril 10 mg bp Oral tab 1 tab once daily [Active]; Klonopin 1 mg Oral tab every 6 hours [Active]; - PMHx: 14:37 Pyloric Stenosis; Hypertension; ETOH/drug abuse; Depression; Anxiety; bp - Immunization history:: Adult Immunizations up to date. - Social history:: Smoking status: Patient denies any tobacco usage or history of. - Family history:: not pertinent. - Hospitalizations: : No recent hospitalization is reported. Screenin:39 Abuse screen: Denies threats or abuse. Denies injuries from another. Nutritional bp screening: No deficits noted. Tuberculosis screening: No symptoms or risk factors identified. Fall Risk No fall in past 12 months (0 pts). No secondary diagnosis (0 pts). IV access (20 points). Ambulatory Aid- None/Bed Rest/Nurse Assist (0 pts). Gait- Normal/Bed Rest/Wheelchair (0 pts) Mental Status- Oriented to own ability (0 pts). Total Martinez Fall Scale indicates No Risk (0-24 pts). Assessment: 14:39 General: SEE TRIAGE NOTE. bp 15:38 Reassessment: PT C/O ACUTE CP AFTER VALIUM ADMINISTRATION. MD NOTIFIED AND REPEAT EKG bp COMPLETED. 21:24 Reassessment: Patient appears in no apparent distress at this time. Patient and/or lg3 family updated on plan of care and expected duration. Pain level reassessed. Patient is alert, oriented x 3, equal unlabored respirations, skin warm/dry/pink. General: Appears in no apparent distress. comfortable, Behavior is calm, cooperative. Pain: Denies pain. Neuro: No deficits noted. Level of Consciousness is awake, alert, obeys commands, Oriented to person, place, time, situation. Cardiovascular: No deficits noted. Reports Capillary refill < 3 seconds JVD is absent Patient's skin is warm and dry. Respiratory: No deficits noted. Airway is patent Trachea midline Respiratory effort is even, unlabored, Respiratory pattern is regular, symmetrical. GI: No deficits noted. No signs and/or symptoms were reported involving the gastrointestinal system. Abdomen is round non-distended. : No deficits noted. No signs and/or symptoms were reported regarding the genitourinary system. EENT: No deficits noted. No signs and/or symptoms were reported regarding the EENT system. Derm: No deficits noted. No signs and/or symptoms reported regarding the dermatologic system. Musculoskeletal: No deficits noted. Circulation, motion, and sensation intact. Range of motion: intact in all extremities. Psych: 14:30 [place] Suicide Severity Screening: In the past month, have you wished you were bp or wished you could go to sleep and not wake up? Patient responds "yes." Based off the client's responses additional C-SSRS screening is required. "In the past month, have you actually had any thoughts of killing yourself?" Patient responds "yes." Based off the client's response additional [place] suicide severity screening questions to be further documented on paper forms. "In your lifetime, have you ever done anything, started to do anything, or prepared to do anything to end your life?" Patient responds "yes." Patient reports suicidal intent within 3 past months. Subjective: Patient's mood is sad, Delusions are denied, Hallucinations are denied Having thoughts of suicide. Plan for suicide is RUN INTO TRAFFIC. Objective: Patient is cooperative, Speech is normal, Affect is blunted. Interventions: Removed personal items and placed in bag. Patient placed in hospital gown. Searched person for dangerous items. Urine collected and sent for urine drug test. Safety Checks: Personal items have been removed. Door is open. No visitors are present at this time. Patient uses daily. Last use was 12 hours ago. Patient uses benzodiazepines daily. Last use was 3 days ago. Commitment: Patient will be a voluntary commitment. Vital Signs: 14:34 Pulse 128; Resp 20; Temp 98.9; Pulse Ox 98% ; bp 15:24 BP 181 / 117; Pulse 122; Resp 20; Temp 98.9(O); Pulse Ox 96% on R/A; mh5 15:38 BP 163 / 103; Pulse 119; Resp 18; Pulse Ox 96% ; bp 16:30 BP 182 / 111; Pulse 138; Resp 18; Pulse Ox 95% ; bp 17:30 BP 167 / 91; Pulse 132; Resp 20; Temp 98.5(O); Pulse Ox 94% on R/A; bp 18:30 BP 169 / 106; Pulse 133; Resp 25; Pulse Ox 96% ; bp 06/02 08:29 BP 154 / 102 RA Supine (auto/reg); Pulse 71 LA; Resp 16 S; Pulse Ox 97% on R/A; mb4 ED Course: 06/01 14:34 Patient arrived in ED. bp 14:37 Yusuf Kirk MD is Attending Physician. rn 14:37 Triage completed. bp 14:37 Arm band placed on. bp 14:39 Patient has correct armband on for positive identification. Bed in low position. Call bp light in reach. Side rails up X2. 14:39 Maintain EMS IV. Dressing intact. Good blood return noted. Site clean \\T\\ dry. Gauge \\T\\ bp site: 18 GA L AC. 15:20 COVID-19 SARS RT PCR (Document "Date of Onset" if Symptomatic) Sent. mh5 15:20 Acetaminophen Level Sent. mh5 15:20 Basic Metabolic Panel Sent. mh5 15:20 Acetaminophen Sent. mh5 15:21 ETOH Level Sent. mh5 15:21 Hepatic Function Sent. mh5 15:21 Basic Metabolic Panel Sent. mh5 15:21 CBC with Diff Sent. mh5 15:22 Placed in gown. Warm blanket given. Diet tray ordered. teletypesetter monitor on. Pulse ox on. mh5 NIBP on. 15:23 Initial lab(s) drawn, by ma, sent to lab. Urine collected: clean catch specimen, clear, 5 EKG done, by ED staff, reviewed by Yusuf Kirk MD COVID swab sent to lab. 15:40 Igor Mariscal, RN is Primary Nurse. bp 16:38 Raul Contreras MD is Hospitalizing Provider. rn 18:07 Diet: Patient given a heart healthy meal tray. mh5 19:53 Magnesium Sent. lg3 19:53 Magnesium Sent. lg3 19:53 Creatine Phosphokinase Sent. lg3 19:53 Creatine Phosphokinase Sent. lg3 19:53 Magnesium Sent. lg3 19:54 Creatine Phosphokinase Sent. lg3 19:54 CBC with Automated Diff Sent. lg3 19:54 CBC with Automated Diff Sent. lg3 19:54 CBC with Automated Diff Sent. lg3 19:54 CBC with Automated Diff Sent. lg3 19:54 Echo with Doppler Sent. lg3 19:54 Comprehensive Metabolic Panel Sent. lg3 19:54 Comprehensive Metabolic Panel Sent. lg3 19:54 Comprehensive Metabolic Panel Sent. lg3 19:54 Comprehensive Metabolic Panel Sent. lg3 19:54 Comprehensive Metabolic Panel Sent. lg3 06/02 04:18 Primary Nurse role handed off by Igor Mariscal, RN mw2 Administered Medications: 06/01 15:20 Drug: NS 0.9% 1000 ml Route: IV; Rate: 1000 ml; Site: left antecubital; bp 16:57 Follow up: IV Status: Completed infusion; IV Intake: 1000ml bp 15:20 Drug: Valium (diazepam) 10 mg Route: IVP; Site: left antecubital; bp 16:57 Follow up: Response: No adverse reaction bp 15:37 CANCELLED (Duplicate Order): Ativan (LORazepam) 1 mg IVP once bp 15:38 Drug: Ativan (LORazepam) 1 mg Route: IVP; Site: left antecubital; bp 16:57 Follow up: Response: No adverse reaction bp 16:45 Drug: Ativan (LORazepam) 1 mg Route: IVP; Site: left antecubital; bp 16:58 Follow up: Response: No adverse reaction bp 16:45 Drug: NS 0.9% 1000 ml Route: IV; Rate: 1000 ml; Site: left antecubital; bp 18:41 Follow up: IV Status: Completed infusion; IV Intake: 1000ml bp 18:45 Drug: Ativan (LORazepam) 1 mg Route: IVP; Site: left antecubital; bp 18:59 Follow up: Response: No adverse reaction bp Intake: 16:57 IV: 1000ml; Total: 1000ml. bp 18:41 IV: 1000ml; Total: 2000ml. bp Outcome: 16:39 Decision to Hospitalize by Provider. rn 06/02 16:04 Patient left the ED. ss Signatures: Yusuf Kirk MD MD rn Smirch, Shelby, RN RN ss Martinez, Maria 5 Igor Mariscal RN RN Noel Fraser 2 Luz Granados 4 Belen Renteria RN RN lg3 Corrections: (The following items were deleted from the chart) 06/01 19:01 18:02 BP 167 / 91; Pulse 132bpm; Resp 20bpm; Pulse Ox 94% RA; Temp 98.5F Oral; mh5 bp 19:04 17:00 [place] Suicide Severity Screening: In the past month, have you wished you were bp or wished you could go to sleep and not wake up? Patient responds "yes." Based off the client's responses additional C-SSRS screening is required. "In the past month, have you actually had any thoughts of killing yourself?" Patient responds "yes." Based off the client's response additional [place] suicide severity screening questions to be further documented on paper forms. "In your lifetime, have you ever done anything, started to do anything, or prepared to do anything to end your life?" Patient responds "yes." Patient reports suicidal intent within 3 past months. bp 19:04 17:00 Subjective: Patient's mood is sad, Delusions are denied, Hallucinations are bp denied Having thoughts of suicide. Plan for suicide is RUN INTO TRAFFIC bp 19:04 17:00 Objective: Patient is cooperative, Speech is normal, Affect is blunted, bp bp 19:04 17:00 Interventions: Removed personal items and placed in bag. Patient placed in hospital gown. Searched person for dangerous items. Urine collected and sent for urine drug test. bp 19:04 17:00 Safety Checks: Personal items have been removed. Door is open. No visitors are bp present at this time. bp 19:04 17:00 Patient uses daily. Last use was 12 hours ago. Patient uses benzodiazepines bp daily. Last use was 3 days ago. bp 19:04 17:00 Commitment: Patient will be a voluntary commitment. bp bp
--- NOTE | 2021-06-01 16:40 | EDPHYS ---
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 14:50 Patient reports ran out of clonazepam 3 days ago. Around that time began to feel very rn anxious, has been drinking nonstop for 5 days, came in today because was shaking and feeling heart racing, feels like he is withdrawing. States last alcohol drink was 3 AM this morning. Denies fever. Denies chest pain. Reports has been having thoughts of hurting himself. No specific plan. Has hurt himself in the past. Reports feels like wants to hurt himself because of how bad he feels. Also reports fired recently and currently homeless. Onset: The symptoms/episode began/occurred 3 day(s) ago. Severity of symptoms: At their worst the symptoms were moderate in the emergency department the symptoms are unchanged. The patient has experienced similar episodes in the past. The patient has not recently seen a physician. Historical: - Allergies: 14:37 No Known Drug Allergies; bp - Home Meds: 14:37 metoprolol tartrate 50 mg Oral tab 1 tab 2 times per day [Active]; lisinopril 10 mg bp Oral tab 1 tab once daily [Active]; Klonopin 1 mg Oral tab every 6 hours [Active]; - PMHx: 14:37 Pyloric Stenosis; Hypertension; ETOH/drug abuse; Depression; Anxiety; bp - Immunization history:: Adult Immunizations up to date. - Social history:: Smoking status: Patient denies any tobacco usage or history of. - Family history:: not pertinent. - Hospitalizations: : No recent hospitalization is reported. ROS: 14:50 Constitutional: Negative for fever, chills, and weight loss, Eyes: Negative for injury, rn pain, redness, and discharge, Neck: Negative for injury, pain, and swelling, Cardiovascular: Positive for palpitations Respiratory: Negative for shortness of breath, cough, wheezing, and pleuritic chest pain, Abdomen/GI: Negative for abdominal pain, and constipation, positive for nausea/vomiting/diarrhea Skin: Negative for injury, rash, and discoloration, Neuro: Negative for headache, weakness, numbness, tingling, and seizure, Psych: Positive for anxiety and suicidal ideation Exam: 14:54 Constitutional: This is a well developed, well nourished patient who is awake, alert, rn and in no acute distress. Head/Face: Normocephalic, atraumatic. Eyes: Periorbital areas with no swelling, redness, or edema. ENT: Dry mucous membranes Cardiovascular: Tachycardic, regular. Respiratory: Mild tachypnea. Speaking full sentences Abdomen/GI: Soft, nontender Skin: Warm, dry MS/ Extremity: Pulses equal, no cyanosis. Neuro: Awake and alert, GCS 15, oriented to person, place, time, and situation. Cranial nerves II-XII grossly intact. Motor strength 5/5 in all extremities. Sensory grossly intact. Cerebellar exam normal. Tongue fasciculations present as well as upper extremity tremors Psych: Awake, alert, with orientation to person, place and time. Behavior within normal limits. Seems anxious Vital Signs: 14:34 Pulse 128; Resp 20; Temp 98.9; Pulse Ox 98% ; bp 15:24 BP 181 / 117; Pulse 122; Resp 20; Temp 98.9(O); Pulse Ox 96% on R/A; mh5 15:38 BP 163 / 103; Pulse 119; Resp 18; Pulse Ox 96% ; bp 16:30 BP 182 / 111; Pulse 138; Resp 18; Pulse Ox 95% ; bp 17:30 BP 167 / 91; Pulse 132; Resp 20; Temp 98.5(O); Pulse Ox 94% on R/A; bp 18:30 BP 169 / 106; Pulse 133; Resp 25; Pulse Ox 96% ; bp 06/02 08:29 BP 154 / 102 RA Supine (auto/reg); Pulse 71 LA; Resp 16 S; Pulse Ox 97% on R/A; mb4 MDM: 06/01 14:37 Patient medically screened. rn 16:37 Differential Diagnosis benzo withdrawal, dehydration, anxiety, suicidal ideation. Data rn reviewed: vital signs, nurses notes, lab test result(s), EKG, and as a result, I will admit patient. Counseling: I had a detailed discussion with the patient and/or guardian regarding: the historical points, exam findings, and any diagnostic results supporting the discharge/admit diagnosis, lab results, radiology results, the need for further work-up and treatment in the hospital. Response to treatment: the patient's symptoms have mildly improved after treatment, and as a result, I will admit patient. ED course: Pt still tachycardic and hypertensive despite valium and ativan doses, will admit to Dr. Contreras for benzo withdrawal and suicidal ideations will have to be addressed during admission.. 06/01 14:46 Order name: CBC with Diff rn 06/01 14:46 Order name: Basic Metabolic Panel rn 06/01 14:46 Order name: Acetaminophen rn 06/01 14:46 Order name: ETOH Level; Complete Time: 16: rn 06/01 14:46 Order name: Hepatic Function; Complete Time: 16: rn 06/01 14:46 Order name: PT-INR; Complete Time: 16: rn 06/01 14:46 Order name: Ptt, Activated; Complete Time: 16: rn 06/01 14:46 Order name: Salicylate; Complete Time: 16: rn 06/01 14:46 Order name: Urine Drug Screen; Complete Time: 16: rn 06/01 14:47 Order name: CBC with Automated Diff; Complete Time: 15:12 EDHI 06/01 14:47 Order name: Basic Metabolic Panel; Complete Time: 16: EDHI 06/01 14:47 Order name: Acetaminophen Level; Complete Time: 16: EDHI 06/01 14:52 Order name: COVID-19 SARS RT PCR (Document "Date of Onset" if Symptomatic); Complete rn Time: 06:59 06/01 15:04 Order name: Urine Dipstick-Ancillary; Complete Time: 15:12 EDHI 06/01 17:22 Order name: Comprehensive Metabolic Panel [facility] 06/01 17:22 Order name: Comprehensive Metabolic Panel [facility] 06/01 17:22 Order name: Comprehensive Metabolic Panel [facility] 06/01 17:22 Order name: Comprehensive Metabolic Panel [facility] 06/01 17:22 Order name: Comprehensive Metabolic Panel [facility] 06/01 17:23 Order name: CBC with Automated Diff [facility] 06/01 17:23 Order name: CBC with Automated Diff EDMS 06/01 17:23 Order name: CBC with Automated Diff EDMS 06/01 17:23 Order name: CBC with Automated Diff EDMS 06/01 17:23 Order name: Creatine Phosphokinase EDMS 06/01 17:23 Order name: Creatine Phosphokinase; Complete Time: 06:59 EDMS 06/01 17:23 Order name: Creatine Phosphokinase; Complete Time: 06:59 EDMS 06/01 17:23 Order name: Creatine Phosphokinase EDMS 06/01 17:23 Order name: Magnesium EDMS 06/01 17:23 Order name: Magnesium; Complete Time: 06:59 EDMS 06/01 17:24 Order name: Magnesium [facility] 06/01 14:46 Order name: IV Start; Complete Time: 15:21 rn 06/01 14:46 Order name: EKG; Complete Time: 14:47 rn 06/01 14:46 Order name: EKG - Nurse/Tech; Complete Time: 15:20 rn 06/01 14:46 Order name: Labs collected and sent; Complete Time: 15:20 rn 06/01 14:46 Order name: Suicide Precautions; Complete Time: 15:21 rn 06/01 14:46 Order name: Suicide Screening (Keith); Complete Time: 15:59 rn 06/01 14:46 Order name: Urine Dipstick-Ancillary (obtain specimen); Complete Time: 15:21 rn 06/01 15:10 Order name: Diet Finger Food; Complete Time: 15:11 eb 06/01 17:22 Order name: Heart Healthy [facility] 06/01 17:23 Order name: Delirium Tremens Prophylaxis-IV Meds [facility] 06/01 17:23 Order name: Social Service Consult [facility] 06/01 17:23 Order name: Echo with Doppler [facility] 06/01 17:24 Order name: Magnesium [facility] 06/01 17:34 Order name: [place] Consultation [facility] 06/01 18:07 Order name: Diet Heart Healthy; Complete Time: 18:07 [facility] 06/02 10:20 Order name: Alcohol Serum/Plasma EDHI Administered Medications: 15:20 Drug: NS 0.9% 1000 ml Route: IV; Rate: 1000 ml; Site: left antecubital; bp 16:57 Follow up: IV Status: Completed infusion; IV Intake: 1000ml bp 15:20 Drug: Valium (diazepam) 10 mg Route: IVP; Site: left antecubital; bp 16:57 Follow up: Response: No adverse reaction bp 15:37 CANCELLED (Duplicate Order): Ativan (LORazepam) 1 mg IVP once bp 15:38 Drug: Ativan (LORazepam) 1 mg Route: IVP; Site: left antecubital; bp 16:57 Follow up: Response: No adverse reaction bp 16:45 Drug: Ativan (LORazepam) 1 mg Route: IVP; Site: left antecubital; bp 16:58 Follow up: Response: No adverse reaction bp 16:45 Drug: NS 0.9% 1000 ml Route: IV; Rate: 1000 ml; Site: left antecubital; bp 18:41 Follow up: IV Status: Completed infusion; IV Intake: 1000ml bp 18:45 Drug: Ativan (LORazepam) 1 mg Route: IVP; Site: left antecubital; bp 18:59 Follow up: Response: No adverse reaction bp Disposition Summary: 06/01/21 16:39 Hospitalization Ordered Hospitalization Status: Inpatient Admission rn Provider: Raul Contreras rn Condition: Stable rn Problem: new rn Symptoms: have improved rn Bed/Room Type: Standard rn Location: Telemetry/MedSurg (Inpatient)(06/02/21 14:38) Room Assignment: [facility](06/02/21 14:38) Diagnosis - Sedative, hypnotic or anxiolytic use, unspecified with withdrawal, unspecified rn - Suicidal ideations rn Forms: - Medication Reconciliation Form rn - SBAR form rn Signatures: Dispatcher [employer] EDYusuf Pham MD MD rn Smirch, Shelby, RN RN Minh Cannon FNP-C BOILER INSTALLER-Cla1 Bernadette Lopez, RN RN Igor Mariscal, RN RN bp Corrections: (The following items were deleted from the chart) 15:37 15:37 Ativan (LORazepam) 1 mg IVP once ordered. bp bp 18:44 16:39 Telemetry/MedSurg (Inpatient) rn cg 18:44 16:39 rn cg 06/02 14:38 06/01 18:44 BR ER HOLD cg ss 06/02 14:38 06/01 18:44 ERHOLD- cg ss
[2021-06-01] MEDS ORDERED: HYDRALAZINE HCL 20 MG/ML VIAL IV PRN (17:14)
[2021-06-01] MEDS ORDERED: ONDANSETRON 4 MG/2 ML VIAL IV PRN (17:14)
[2021-06-01] MEDS ORDERED: FUROSEMIDE 40 MG/4 ML VIAL IV ONE (17:14)
[2021-06-01] MEDS ORDERED: LORAZEPAM 1 MG TABLET PO PRN (17:16)
[2021-06-01] MEDS: METOPROLOL TAR 50 MG TAB PO SCH ×2 (17:17→21:00)
[2021-06-01] MEDS ORDERED: FLUMAZENIL 0.1 MG/ML (5 mL VIAL) IV PRN (17:18)
[2021-06-01] MEDS: LORazepam 2 MG/ML VIAL IV PRN ×2 (17:30→21:23)
--- NOTE | 2021-06-01 17:33 | P.HP ---
Certification for Inpatient With expected LOS: >2 Midnights Patient will require the following post-hospital care: None Practitioner: I am a practitioner with admitting privileges, knowledge of patient current condition, hospital course, and medical plan of care. Services: Services provided to patient in accordance with Admission requirements found in Title 42 Section 412.3 of the Code of Federal Regulations Patient History Date of Service: 06/01/21 Reason for admission: Increased anxiety and tremors History of Present Illness: 36-year-old male with past medical history of hypertension chronic tobacco and alcohol abuse, depression with anxiety disorder states he takes Klonopin for pain twice daily dose follows with Dr. Muse. Presented to the ED today because of worsening anxiety, tremors and feeling of impending doom. Patient states he also felt suicidal although he has no specific plans for it. He states he has run out of 2 of his medications since the last 1 week including his blood pressure medications due to inability to afford them. He states he is homeless and currently sleeps in his car. He states he thinks symptoms are due to his inability to get his regular Klonopin since the last 3 days. He states he was given a 3-month prescription by Dr Luke which ran out 3 days ago. He admits on questioning that he was recently hospitalized 1 week ago. He admits to still drinking alcohol, his last drink was earlier this morning. On presentation in the ED he was noted to be tachycardic with blood heart rate in the 120s to 140s. His alcohol level was elevated at 350. His electrolytes were within normal range. Serum magnesium pending. Patient admits to increasing finger and lower extremity swelling. He states he has been told that [facility] before that he has a large ventricle but has never been on any diuretics. Has been admitted for benzodiazepine withdrawal as well as persistent anxiety symptoms with suicidal ideation Allergies No Known Drug Allergies Allergy (Verified 12/24/19 23:49) Unknown Home Medications: Metoprolol Tartrate [Lopressor*] 50 mg PO BID 12/25/19 Venlafaxine HCl [Venlafaxine HCl ER] 225 mg PO DAILY 12/25/19 clonazePAM [Clonazepam] 1 mg PO BID PRN 12/25/19 Folic Acid 1 mg PO DAILY #30 tablet 02/10/20 Thiamine HCl 100 mg PO DAILY #30 tablet 02/10/20 chlordiazePOXIDE HCl [Librium*] 25 mg PO SEECOM #6 cap 02/10/20 - Past Medical/Surgical History Diabetic: No -: Alcohol abuse -: Hypertension -: Anxiety/depression -: Unknown Psychosocial/ Personal History: States he is homeless - Family History Father -: Heart disease Mother -: Stroke - Social History Smoking Status: Heavy Tobacco smoker (>10 cigarettes/day) Counseled patient to stop smoking for: more than 10 minutes Smoking therapy provided: Yes Patient receptive to therapy: Yes Alcohol use: Yes CD- Drugs: No Caffeine use: Yes Place of Residence: Homeless Review of Systems General: Unremarkable Eyes: Unremarkable ENT: Unremarkable Respiratory: Shortness of Breath Cardiovascular: Palpitations, Light Headedness Gastrointestinal: Nausea, Distention Genitourinary: Unremarkable Musculoskeletal: Unremarkable Integumentary: Unremarkable Neurological: Unremarkable Physical Examination - Physical Exam General: Obese - Studies Laboratory Data (last 24 hrs) 06/01/21 14:50: PT 10.7, INR 0.93, APTT 28.7 06/01/21 14:50: Sodium 139, Potassium 3.8, BUN 3 L, Creatinine 0.77, Glucose 111 H, Total Bilirubin 0.2, AST 24, ALT 31, Alkaline Phosphatase 90 06/01/21 14:50: WBC 5.20 D, Hgb 14.5, Hct 44.2, Plt Count 224 D Assessment and Plan - Plan Physical examination Vitals reviewed heart rate ranging in the 130s Generalobese young male, calm, not in any distress, on room air HEENTpupils equal reactive to light, extraocular motor movement intact Neckno JVD no carotid bruit Respiratorygood air entry, no overt crepitations CardiovascularS1-S2 rate and rhythm are regular but tachycardic, 1-2+ bilateral pedal edema GIabdomen slightly distended but no shifting dullness demonstrated ascites, bowel sounds positive with no quadrant, nontender GUnormal external genitalia no penile swelling Musculoskeletal2+ pedal edema, no calf tenderness Neuropatient is alert oriented cranial 2-12 grossly intact, no demonstrable tremors of the hands elicited Suicidal ideation Benzodiazepine withdrawal/persistent anxiety symptoms Hypertensive urgency Medication nonadherence Alcohol intoxication with impending withdrawal Chronic tobacco use Presumed diastolic CHFwith lower extremity edema Plan We'll obtain chest x-ray to rule out pulmonary congestive changes We'll obtain echocardiogram while inpatient Will admit patient to inpatient status Will place on one-to-one close monitoring Lasix dose 40 mg x 1 now Initiate fluid restriction to less than 1.5 L/day Start Ativan 2 mg every 6 as needed for anxiety symptoms Will consult case management since patient is homeless as well as [facility] when patient is medically stable for evaluation of suicidal ideation Resume patient dose of Effexor lovenox prn follow magnesium level Advance Full code Dispositionpossible hospital stay for 48 hours - Advance Directives Does patient have a Living Will: No Does patient have a Durable POA for Healthcare: No Time Spent Managing Pts Care (In Minutes): 65
[2021-06-01] MEDS ORDERED: HYDRALAZINE HCL 20 MG/ML VIAL ONE (17:34)
[2021-06-01 18:05] VITALS: BMI 34.4
[2021-06-01 18:49] LABS: Magnesium 2.1 mg/dL (1.8-2.4)
[2021-06-01] MEDS: FAMOTIDINE 20 MG TAB PO SCH (21:00)
[2021-06-01] MEDS ORDERED: METOPROLOL TAR 50 MG TAB ONE (21:15)
[2021-06-01] MEDS ORDERED: FAMOTIDINE 20 MG TAB ONE (21:15)
[2021-06-02] MEDS ORDERED: LORazepam 2 MG/ML VIAL ONE ×3 (03:34→09:07)
[2021-06-02] MEDS: LORazepam 2 MG/ML VIAL IV PRN ×4 (03:36→17:48)
[2021-06-02] MEDS: FOLIC ACID 1 MG TABLET PO SCH (09:00)
[2021-06-02] MEDS: THIAMINE HCL 100 MG TABLET PO SCH (09:00)
[2021-06-02] MEDS: METOPROLOL TAR 50 MG TAB PO SCH ×2 (09:00→20:07)
[2021-06-02] MEDS: FUROSEMIDE 40 MG TABLET PO SCH (09:00)
[2021-06-02] MEDS: NICOTINE 21 MG/PAT TD SCH (09:00)
[2021-06-02] MEDS: ENOXAPARIN 40 MG/0.4 ML SQ SCH (09:00)
[2021-06-02] MEDS: ASPIRIN EC 81 MG TAB PO SCH (09:00)
[2021-06-02] MEDS: FAMOTIDINE 20 MG TAB PO SCH ×2 (09:00→20:07)
[2021-06-02] MEDS: VENLAFAXINE HCL XR 75 MG CAP PO SCH (09:00)
[2021-06-02] MEDS ORDERED: NICOTINE 21 MG/PAT TD ONE (09:03)
[2021-06-02] MEDS ORDERED: THIAMINE HCL 100 MG TABLET ONE (09:04)
[2021-06-02] MEDS ORDERED: ASPIRIN EC 81 MG TAB PO ONE (09:04)
[2021-06-02] MEDS ORDERED: FOLIC ACID 1 MG TABLET ONE (09:04)
[2021-06-02] MEDS ORDERED: FUROSEMIDE 40 MG TABLET ONE (09:04)
[2021-06-02] MEDS ORDERED: METOPROLOL TAR 50 MG TAB ONE (09:04)
[2021-06-02] MEDS ORDERED: FAMOTIDINE 20 MG TAB ONE (09:05)
[2021-06-02] MEDS ORDERED: ENOXAPARIN 40 MG/0.4 ML SQ ONE (09:05)
[2021-06-02] MEDS ORDERED: LORAZEPAM 1 MG TABLET ONE (09:06)
[2021-06-02 09:51] LABS: Absolute Lymphocytes (CBC) 1.5 K/uL (0.7-4.9); Hematocrit 42.4 % (39.6-49.0); Lymphocytes % 21.1 % (15.3-44.8); MPV 8.1 fL (7.6-11.3); RBC Red Blood Cell Count 4.76 M/uL (4.33-5.43)
[2021-06-02 10:07] LABS: Albumin 3.3 g/dL (3.4-5.0); Bilirubin Total 0.6 mg/dL (0.2-1.0); Potassium 3.8 mmol/L (3.5-5.1); Protein, Total 7.2 g/dL (6.4-8.2)
--- NOTE | 2021-06-02 10:42 | P.PN ---
Subjective Date of Service: 06/02/21 Chief Complaint: Increased anxiety and tremors Subjective: No new changes, No C/O voiced Physical Examination - Vital Signs Blood Pressure: 157/103 Pulse: 79 Respirations: 18 Pulse Ox (%): 95 - Studies Laboratory Data (last 24 hrs) 06/01/21 14:50: Magnesium 2.1 06/01/21 14:50: PT 10.7, INR 0.93, APTT 28.7 06/01/21 14:50: Sodium 139, Potassium 3.8, BUN 3 L, Creatinine 0.77, Glucose 111 H, Total Bilirubin 0.2, AST 24, ALT 31, Alkaline Phosphatase 90 06/01/21 14:50: WBC 5.20 D, Hgb 14.5, Hct 44.2, Plt Count 224 D Assessment And Plan - Plan Physical examination Vitals reviewed Generalobese young male, calm, not in any distress, on room air HEENTpupils equal reactive to light, extraocular motor movement intact Neckno JVD no carotid bruit Respiratorygood air entry, no overt crepitations CardiovascularS1-S2 rate and rhythm REGULAR, Resolved tachycardic, improving to trace+ bilateral pedal edema GIabdomen slightly distended , no shifting dullness , bowel sounds positive with no quadrant, nontender GUnormal external genitalia no penile swelling MusculoskeletalImproving 1+ pedal edema, no calf tenderness Neuropatient is alert oriented cranial 2-12 grossly intact, no demonstrable tremors of the hands elicited IMPRESSION Suicidal ideation Benzodiazepine withdrawal/persistent anxiety symptoms Hypertensive urgency Medication nonadherence Alcohol intoxication with impending withdrawal Chronic tobacco use Presumed diastolic CHFwith lower extremity edema Plan Volume status controlled continue inpatient status continue one-to-one close monitoring Fluid restriction to less than 1.5 L/day Ativan 2 mg every 6 as needed for anxiety symptoms Consult case management since patient is homeless as well as [facility] when patient is medically stable for evaluation of suicidal ideation Resume patient dose of Effexor Lovenox prn follow magnesium level AdvanceFull code Dispositionpossible hospital stay for 48 hours
[2021-06-02] MEDS: LOSARTAN POTASSIUM 50 MG TABLET PO SCH (16:17)
[2021-06-03] MEDS: LABETALOL 20 MG/4ML SYRINGE IV PRN ×2 (00:23→09:50)
[2021-06-03] MEDS: LORazepam 2 MG/ML VIAL IV PRN ×4 (00:23→12:05)
[2021-06-03 00:47] VITALS: O2SAT 95
[2021-06-03 06:01] LABS: Absolute Lymphocytes (CBC) 1.4 K/uL (0.7-4.9); Hematocrit 44.5 % (39.6-49.0); Lymphocytes % 18.9 % (15.3-44.8); MPV 8.3 fL (7.6-11.3); RBC Red Blood Cell Count 4.98 M/uL (4.33-5.43)
[2021-06-03 06:08] LABS: ALT/SGPT 41 U/L (12-78); AST/SGOT 42 U/L (15-37); Albumin 3.4 g/dL (3.4-5.0); Alkaline Phosphatase 94 U/L (45-117); BUN Blood Urea Nitrogen 12 mg/dL (7-18); Bicarbonate 24 mmol/L (21-32); Bilirubin Total 0.7 mg/dL (0.2-1.0); Glucose Level 105 mg/dL (74-106); Potassium 3.8 mmol/L (3.5-5.1); Protein, Total 7.8 g/dL (6.4-8.2); Sodium Level 133 mmol/L (136-145)
[2021-06-03] MEDS: FOLIC ACID 1 MG TABLET PO SCH (08:11)
[2021-06-03] MEDS: ENOXAPARIN 40 MG/0.4 ML SQ SCH (08:11)
[2021-06-03] MEDS: LOSARTAN POTASSIUM 50 MG TABLET PO SCH (08:11)
[2021-06-03] MEDS: ASPIRIN EC 81 MG TAB PO SCH (08:11)
[2021-06-03] MEDS: THIAMINE HCL 100 MG TABLET PO SCH (08:11)
[2021-06-03] MEDS: FUROSEMIDE 40 MG TABLET PO SCH (08:11)
[2021-06-03] MEDS: FAMOTIDINE 20 MG TAB PO SCH (08:11)
[2021-06-03] MEDS: METOPROLOL TAR 50 MG TAB PO SCH (08:11)
[2021-06-03] MEDS: VENLAFAXINE HCL XR 75 MG CAP PO SCH (08:11)
[2021-06-03] MEDS: NICOTINE 21 MG/PAT TD SCH (08:12)
[2021-06-03 13:25] VITALS: BP 139/63; TEMP 97
--- NOTE | 2021-06-03 14:48 | ECHO ---
HEIGHT: 5 ft 7 in WEIGHT: 220 lb 0 oz DATE OF STUDY: 06/03/[address]: Raul Contreras MD 2-DIMENSIONAL: YES M.MODE: YES DOPPLER: YES COLOR FLOW: YES TDS: NO PORTABLE: NO DEFINITY: NO BUBBLE STUDY: NO DIAGNOSIS: CVA, RULE OUT VEGETATION CARDIAC HISTORY: CATHERIZATION: NO SURGERY: NO PROSTHETIC VALVE: NO PACEMAKER: NO MEASUREMENTS (cm) DIASTOLIC (NORMALS) SYSTOLIC (NORMALS) IVSd 1.2 (0.6-1.2) LA Diam 2.8 (1.9-4.0) LVEF 60-65% LVIDd 4.1 (3.5-5.7) LVIDs 2.2 (2.0-3.5) %FS 47% LVPWd 1.3 (0.6-1.2) Ao Diam 2.5 (2.0-3.7) 2 DIMENSIONAL ASSESSMENT: RIGHT ATRIUM: NORMAL LEFT ATRIUM: NORMAL RIGHT VENTRICLE: NORMAL LEFT VENTRICLE: NORMAL TRICUSPID VALVE: NORMAL MITRAL VALVE: NORMAL PULMONIC VALVE: NORMAL AORTIC VALVE: NORMAL PERICARDIAL EFFUSION: NONE AORTIC ROOT: NORMAL LEFT VENTRICULAR WALL MOTION: NORMAL DOPPLER/COLOR FLOW: TRACE MITRAL REGURGITATION. COMMENTS: NORMAL LEFT VENTRICULAR EJECTION FRACTION 60-65%. NORMAL WALL MOTION. TRACE MITRAL REGURGITATION. TECHNOLOGIST: Deborah JANSEN
== END 2021-06-03 13:00 | disposition home or self-care (01) | DRG 880 ==
LOC: ER 14:30 → ERHOLD 17:18 → 2ND 06-02 15:27
PROVIDERS: ADMIT Internal Medicine; ATTEND Internal Medicine
DX: R45.851 Suicidal ideations (principal); F13.239 Sedative, hypnotic or anxiolytic dependence with withdrawal, unspecified; I50.30 Unspecified diastolic (congestive) heart failure; E66.9 Obesity, unspecified; Z68.34 Body mass index [BMI] 34.0-34.9, adult; I16.0 Hypertensive urgency; Z91.19 Patient's noncompliance with other medical treatment and regimen; F10.129 Alcohol abuse with intoxication, unspecified; F17.210 Nicotine dependence, cigarettes, uncomplicated; I11.0 Hypertensive heart disease with heart failure; F41.9 Anxiety disorder, unspecified; Z59.02 Unsheltered homelessness; Z20.822 Contact with and (suspected) exposure to COVID-19
CPT/HCPCS: 36415; 80048; 80053; 80076; 80307; 80320; 80329; 81003; 82550; 83735; 85025; 85610; 85730; 93005; 93306; 96361; 96374; 96375; 99285; J0360; J1650; J1940; J3360; J7030; U0003

== ENCOUNTER 2021-10-04 17:26 | Emergency (ER) | payer SELFPAY ==
--- OUTSIDE RECORDS SUMMARY | 2021-10-04 17:42 | XMS REPORT | Continuity of Care Document ---
:1985 Author Organization [facility] t Address [address] [place] [address] Care Team Providers Name Role Phone PRADEEP BOWERS Primary Care Physician Unavailable BELGICA Attending Clinician Unavailable Belgica NOYOLA Attending Clinician KRISTINA Attending Clinician Unavailable Singer LAW Attending Clinician Kristina BELTRÁN Attending Clinician PHUONG Attending Clinician Unavailable Vivi SAMAYOA, G Attending Clinician Phuong LAW Attending Clinician Ray Zarate Attending Clinician LOWELL Attending Clinician Unavailable KERON ZALDIVAR Attending Clinician Unavailable Deborah ALVAREZ Attending Clinician Unavailable SHABBIR Attending Clinician Unavailable Shabbir BELTRÁN Attending Clinician Doctor Unassigned, Name Attending Clinician Unavailable Margarita Marroquin Attending Clinician John BELTRÁN Attending Clinician Deion SEYMOUR Attending Clinician Unavailable Deion Seymour DO Attending Clinician Jeff Attending Clinician Joseph Fontanez MD Attending Clinician Lexy Thomas MD Attending Clinician Fatimah BELTRÁN S Attending Clinician Ray JENKINS Attending Clinician Unavailable Clinic, Neurology Continuity Attending Clinician UnavailLindsey DAVENPORT Attending Clinician Unknown Attending Clinician Unavailable JEREMIAH Attending Clinician Unavailable Kem Herrera Attending Clinician Jeremiah [place] Attending Clinician Joseph GARCIA Attending Clinician Unavailable KRISTINA Admitting Clinician Unavailable Kristina BELTRÁN Admitting Clinician PHUONG Admitting Clinician Unavailable Phuong LAW Admitting Clinician SHAN PUENTE Admitting Clinician Unavailable SHABBIR Admitting Clinician Unavailable JOHN Admitting Clinician Unavailable John BELTRÁN Admitting Clinician Deion SEYMOUR Admitting Clinician Unavailable ASHLIE Admitting Clinician Unavailable JEREMIAH Admitting Clinician Unavailable Joseph GARCIA Admitting Clinician Unavailable Payers Payer Name Policy Type Policy Number Effective Date Expiration Date [employer] edge [facility] [id number] [facility] 00:00:00 Problems Condition Condition Condition Status Onset Resolution Last Treating Co mments Source Name Details Category Date Date Treatment Clinician Date CULLEN CULLEN Disease Active Univers (dyspnea (dyspnea 4-28 ity of on on 00:00: [place] exertion) exertion) [facility] Dyslipidem Dyslipidem Disease Active U nivers ia ia 3-29 ity of 00:00: [address] [place] [address] Anxiety Anxiety Disease Active 2020-05 Univers 2-26 ity of 00:00: [address] Cigarette Cigarette Disease Active 2020-05 Uni vers smoker smoker 2-26 ity of 00:00: [place] [facility] Elevated Elevated Disease Active 2021-1 Unive rs brain brain 2-26 ity of natriureti natriureti [place] c peptide c peptide 00 Medi kofi (BNP) (BNP) Branch level level Withdrawal Withdrawal Disease Active U nivers symptoms, symptoms, 6-16 ity of alcohol, alcohol, 00:00: [place] uncomplica uncomplica 00 Me dical luis luis Branch Obesity Obesity Disease Active Univers (BMI (BMI 6-16 ity of 30-39.9) 30-39.9) 00:00: [place] [id number] Medical Branch Alcohol Alcohol Disease Active Methodi [...] 7-02 it y of on on 00:00: [address] Branch Family Family Disease Active Univers history of history of 7- it [place] of early CAD [place] CAD [place] [facility] Family Family Disease Active 2019- Univers history of history of 7- [place] of early CAD [place] CAD [place] [facility] [place] Chest pain Chest pain Disease Active U damon 7- ity of 00:00: [address] Chest pain Chest pain Disease Active 2016-[address] [facility]: [place] [address] Center Chest Chest Disease Active 2015-[address] [facility] pain, pain, 2-21 [facility] unspecifie unspecifie 00:00: Me dical d type d type 00 Center Allergies, Adverse Reactions, Alerts Allergy Allergy Status Severity Reaction(s) Onset Inactive Treating Comm ents Source Name Type Date Date Clinician NO KNOWN Allergy Active [facility] ALLERGIE S NO KNOWN Drug Active Univers ALLERGIE Class ity of S [facility] Family History Family Member Diagnosis Comments Start Date Stop Date Source [facility] Maternal [facility] Maternal uncle Alcohol abuse [facility] Maternal uncle Depression [facility] Maternal [facility]s [facility] Paternal grandfather Heart attack [facility] Social History Social Habit Start Date Stop Date Quantity Comments Source History of tobacco 1995-01-27 Cigarette smoker Nondenominational use 00:00:00 (finding) Hospital History SDOH University [facility] SDGA University o f Alcohol Std Drinks [place] [facility] [place] History [facility] University o f Alcohol Comment [facility] ical Branch Exposure to 2021-09-19 2021-09-29 Not sure University of SARS-CoV-2 (event) 00:00:00 20:34:00 [facility] Alcohol intake 2021-09-29 2021-09-29 Current drinker Unive rsity of 00:00:00 00:00:00 of alcohol [facility] (finding) [place] Tobacco Comment 2021-09-05 2021-09-05 vapes Universit y of 00:00:00 00:00:00 [facility] Education 2021-05-05 2021-05-05 13 University of 00:00:00 00:00:00 [facility] Cigarette 2020-01-28 2020-01-28 Nondenominational pack-years 00:00:00 00:00:00 Hospital History SDOH 2018-11-09 2018-11-09 5 University o f Alcohol Binge 00:00:00 00:00:00 [facility] [place] [facility] Branch Cigarettes smoked 2018-11-08 2018-11-08 Univers ity of current (pack per 00:00:00 00:00:00 [facility]) - Reported Branch Tobacco use and 2018-11-08 2018-11-08 Current user Univers ity of exposure 00:00:00 00:00:00 [facility] Sex [birth year] At [birth year] Universit y of 00:00:00 00:00:00 [facility] Smoking Status Start Date Stop Date Source Current every day smoker 2018-11-08 00:00:00 Uni versity of [facility] Medications Ordered Filled Start Stop Current Ordering Indication Dosage Frequency Signature Comments Components Source Medication Medication Date Date Medication? Clinician (SIG) Name Name ketorolac 2022-0 2022- No 15mg 15 mg, Unive rs (TORADOL) 09-30 Slow IV ity of injection 03:45: 02:46 Push, [place] 15 mg 00 :00 ONCE, 1 Medical dose, On Branch [place] 09/29/21 at 2245, Routine ondansetron No 4mg 4 mg, Slow Univers (ZOFRAN 09-30 IV Push, ity of (PF)) 02:30: 01:55 ONCE, 1 [place] injection 4 00 :00 dose, On Medi kofi mg [facility] 09/29/21 at 2130, TITA acetaminoph No 650mg 650 mg, U nivers en 09-30 Oral, ity of (TYLENOL) 02:30: 01:55 ONCE, 1 [place] tablet 650 00 :00 dose, On Medic al mg [facility] 09/29/21 at 2130, TITA NaCl 0.9% No 1000mL at 999 Uni vers (NS) bolus 09-30 mL/hr, ity of infusion 02:30: 03:12 1,000 mL, [place] as 1,000 mL 00 :00 IV Medical Infusion, Branch ONCE, 1 dose, On [place] 09/29/21 at 2130, TITA metoprolol Yes 50mg Take 50 mg U nivers tartrate 50 06 by mouth 2 it y of mg tablet 19:45: (two) [place] 15 times Medical daily. Branch metoprolol Yes 50mg Take 50 mg U nivers tartrate 50 -06 by mouth 2 it y of mg tablet 19:45: (two) [place] 15 times Medical daily. Branch nitroglycer No .8mg 0.8 mg, Un jaqueline in 09-13 05-06 Sublingual ity of (NITROSTAT) 17:45: 16:55 , ONCE, 1 [place] sublingual 00 :00 dose, On Medic al tablet 0.8 Thu09/13/21 Bra nch mg at 1245, Routine metoprolol Yes 5mg 5 mg, Univer s (LOPRESSOR) 09-13 Intravenou it y of injection 5 16:35: s, Q5MIN [place] mg 01 PRN, Medical Starting Branch on Thu09/13/21 at 1135, Until Discontinu ed, Routine, for target HR < 65 metoprolol 2021- No 50mg 50 mg, Univ ers succinate 09-13 Oral, ity of XL (TOPROL 15:45: 14:58 ONCE, 1 [place] XL) tablet 00 :00 dose, On Medic al 50 mg Thu09/13/21 Branch at 1045, TITA metoprolol 2021- No 75mg 75 mg, Univ ers tartrate 09-13 Oral, ity of (LOPRESSOR) 14:00: 12:56 ONCE, 1 [place] tablet 75 00 :00 dose, On Medica l mg Thu09/13/21 Branch at 0900, Routine metoprolol 2021- No 75mg 75 mg, Univ ers tartrate 09-12 Oral, Q6H, ity of (LOPRESSOR) 23:00: 11:16 3 doses, [place] tablet 75 00 :00 First dose Medi kofi mg on [place] Branch 09/12/21 at 1800, Last dose on Thu09/13/21 at 0600, Routine iopamidol 2021- No [id number] 81mL 81 mL, U nivers (ISOVUE 09-12 Intravenou ity o f 370-500 mL) 22:00: 17:41 s, ONCE, 1 [place] injection 00 :00 dose, On Medica l 81 mL [facility] 09/12/21 Branch at 1700, Routine metoprolol No 5mg 5 mg, Unive rs (LOPRESSOR) 09-12- Intravenou i ty of injection 5 18:30: 17:26 s, ONCE, 1 [place] mg 00 :00 dose, On Medical [facility] 09/12/21 Branch at 1330, Routine metoprolol 2021- No 5mg 5 mg, Unive rs (LOPRESSOR) 09-12- Intravenou i ty of injection 5 17:00: 16:09 s, ONCE, 1 [place] mg 00 :00 dose, On Medical [facility] 09/12/21 Branch at 1200, Routine acetaminoph Yes 650mg 650 mg, Un jaqueline en 5-05 Oral, ity of (TYLENOL) 16:06: Q6HPRN, [place] tablet 650 52 Starting Medic al mg on [place] Branch 09/12/21 at 1106, Until Discontinu ed, Routine, Pain (scale 1-3) morpHINE 2021- No 4mg 4 mg, Slow Un jaqueline injection 4 5-05 05-05 IV Push, ity of mg 14:04: 14:04 ONCE, 1 [place] 00 :00 dose, On Medical [place] 09/12/21 Branch at 0915, STAT ondansetron 2021- No 4mg 4 mg, Slow Univers (ZOFRAN 5-05 05-05 IV Push, ity of (PF)) 14:03: 14:04 ONCE, 1 [place] injection 4 00 :00 dose, On Medi kofi mg [facility] 09/12/21 Branch at 0915, TITA aspirin 81 2021- Yes [id number] 81mg Take 1 Univers mg chewable 4-30 05-31 tablet by it y of tablet 00:00: 04:59 mouth [place] 00 :00 daily for Medical 30 days. Branch aspirin 81 2021- Yes [id number] 81mg Take 1 Univers mg chewable 4-30 05-31 tablet by it y of tablet 00:00: 04:59 mouth [place] 00 :00 daily for Medical 30 days. Branch aspirin 81 2021- Yes [id number] 81mg Take 1 Univers mg chewable 4-30 05-31 tablet by it y of tablet 00:00: 04:59 mouth [place] 00 :00 daily for Medical 30 days. Branch metoprolol Yes 50mg Take 50 mg U nivers tartrate 50 09-06 by mouth 2 it y of mg tablet 16:01: (two) [place] 23 times Medical daily. Branch aspirin Yes 81mg 81 mg, Univers chewable - Oral, ity of tablet 81 14:00: DAILY, [place] mg 00 First dose Medical on Thu [place] 09/06/21 at 0900, Until Discontinu ed, Routine lisinopriL 2021- No 5mg Take 5 mg U nivers 5 mg tablet 09-06 by mouth 2 i ty of 09:21: 00:00 (two) [place] 02 :00 times Medical daily. Branch atorvastati Yes 40mg 40 mg, Univ ers n (LIPITOR) 4-29 Oral, QHS, it y of tablet 40 02:00: First dose [place] mg 00 on [place] Medical 09/05/21 at [place] 2100, Until Discontinu ed, Routine metoprolol Yes 50mg 50 mg, Unive rs tartrate 4-29 Oral, BID, ity o f (LOPRESSOR) 01:00: First dose [place] tablet 50 00 on [place] Medical mg 09/05/21 at [place] 2000, Until Discontinu ed, Routine lisinopriL Yes 5mg 5 mg, Univer s (PRINIVIL,Z 4- Oral, BID, it y of ESTRIL) 01:00: First [place] tablet 5 mg 00 on [place] Medica l 09/05/21 at [place] 2000, Until Discontinu ed, Routine furosemide 2021- Yes [id number] 20mg Take 1 Univers 20 mg 09-06 05-30 tablet by ity of tablet 00:00: 04:59 mouth [place] 00 :00 daily for Medical 30 days. [place] furosemide 2021- Yes [id number] 20mg Take 1 Univers 20 mg - 05-30 tablet by ity of tablet 00:00: 04:59 mouth [place] 00 :00 daily for Medical 30 days. [place] furosemide 2021- Yes [id number] 20mg Take 1 Univers 20 mg 4-29 05-30 tablet by ity of tablet 00:00: 04:59 mouth [place] 00 :00 daily for Medical 30 days. [place] furosemide Yes 20mg 20 mg, Unive rs (LASIX) 09-05 Slow IV ity of injection 22:00: Push, [place] 20 mg 00 Q12H, Medical First dose Branch on [place] 09/05/21 at 1700, Until Discontinu ed, Routine enoxaparin Yes 40mg 40 mg, Unive rs (LOVENOX) 09-05 Subcutaneo ity of injection 22:00: us, DAILY, [place] 40 mg 00 First dose Medical on [place] 09/05/21 at 1700, Until Discontinu ed, Routine clonazePAM Yes 2mg 2 mg, Univer s (KLONOPIN) 09-05 Oral, ity of tablet 2 mg 21:47: BIDPRN, [place] 20 Starting Medical on [place] Branch 09/05/21 at 1647, Until Discontinu ed, Routine, anxiety sulfur 2021- No [id number] 5mL 5 mL, Unive rs hexafluorid 09-05 Intravenou i ty of e microsphr 20:15: 20:15 s, ONCE, 1 [place] (LUMASON) 00 :00 dose, On Medica l injection 5 [place] Branch mL 09/05/21 at 1515, Routine
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 member approving Restricted medication : MALCOLMALDENGABRIELLE nitroglycer Yes .4mg 0.4 mg, Uni vers in 09-05 Sublingual ity of (NITROSTAT) 17:35: , Q5MIN [place] sublingual 52 PRN, Medical tablet 0.4 Starting Branc h mg on [place] 09/05/21 at 1235, Until Discontinu ed, Routine, Chest pain morpHINE 2021- No 2mg 2 mg, Slow Un jaqueline injection 2 09-05 IV Push, ity of mg 17:35: 17:34 Q4HPRN, [place] 26 :26 Starting Medical on [place] Branch 09/05/21 at 1235, Until 09/06/21 at 1234, Routine, Pain (scale 7-10), Chest pain acetaminoph Yes 650mg 650 mg, Un jaqueline en 09-05 Oral, ity of (TYLENOL) 17:35: Q6HPRN, [place] tablet 650 22 Starting Medic al mg on [place] Branch 09/05/21 at 1235, Until Discontinu ed, Routine, Pain (scale 1-3) nitroglycer 2021- No .4mg 0.4 mg, Un jaqueline in 09-05 Sublingual ity of (NITROSTAT) 16:30: 15:42 , ONCE, 1 [place] sublingual 00 :00 dose, On Medic al tablet 0.4 [place] Branch mg 09/05/21 at 1130, TITA aspirin 2021- No 324mg 324 mg, Unive rs chewable 09-05 Oral, ity of tablet 324 16:30: 15:42 ONCE, 1 [place] mg 00 :00 dose, On Medical [place] Branch 09/05/21 at 1130, Routine atorvastati Yes 40mg 40 mg, Univ ers n (LIPITOR) 3-31 Oral, QHS, it y of tablet 40 02:00: First dose [place] mg 00 on Thu Medical 08/07/21 at Branch 2100, Until Discontinu ed, Routine lisinopriL Yes 5mg Take 5 mg Un jaqueline 5 mg tablet 3-30 by mouth 2 it y of 12:53: (two) [place] 52 times Medical daily. Branch metoprolol Yes 50mg Take 50 mg U nivers tartrate 50 3-30 by mouth 2 it y of mg tablet 12:53: (two) [place] 52 times Medical daily. Branch magnesium 2021- Yes 400mg 400 mg, Uni vers oxide 08-07 04-03 Oral, BID, ity of (MAG-OX 01:00: 00:59 8 doses, [place] 400) tablet 00 :00 First dose Me dical 400 mg on Thu Branch 08/06/21 at 2000, Last dose on [facility] 08/10/21 at 0800, Routine atorvastati 2021- Yes [id number] 40mg Take 1 Univers n 40 mg -30 -30 tablet by ity of tablet 00:00: 04:59 mouth at [place] 00 :00 bedtime Medical for 30 Branch days. atorvastati 2021- Yes [id number] 40mg Take 1 Univers n 40 mg 3-30 -30 tablet by ity of tablet 00:00: 04:59 mouth at [place] 00 :00 bedtime Medical for 30 Branch days. butalbital- Yes 1{tbl} 1 tablet, Univers acetaminoph 08-06 Oral, ity of en-caff 21:36: Q6HPRN, [place] (ESGIC) 42 Starting Medical 50-325-40 on [place] mg tablet 1 08/06/21 at tablet 1636, Until Discontinu ed, Routine, Headache sulfur 2021- No [id number] 5mL 5 mL, Unive rs hexafluorid 08-06- Intravenou i ty of e microsphr 21:00: 21:00 s, ONCE, 1 [place] (LUMASON) 00 :00 dose, On Medica l injection 5 Thu Branch mL 08/06/21 at 1600, Routine
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 member approving Restricted medication : SHERLY FOWLER magnesium No 2g 2 g, IV Univ ers sulfate in 08-06 Piggyback, it y of water 2 15:15: 17:03 Administer [place] gram/50 mL 00 :00 over 60 Medica l (4 %) Minutes, Branch infusion 2 ONCE, 1 g dose, On Thu08/06/21 at 1015, Routine iopamidol 2021- No [id number] 100mL 100 mL, Univers (ISOVUE 08-06 Intravenou ity o f 370-500 mL) 14:20: 14:45 s, ONCE, 1 [place] injection 00 :00 dose, On Medica l 100 mL [facility] Branch 08/06/21 at 0945, Routine furosemide No 40mg 40 mg, IV U nivers (LASIX) 08-06 Push, ity of injection 14:00: 22:02 DAILY, [place] 40 mg 00 :41 First dose Medical (after Branch last modificati on) on Thu08/06/21 at 0900, Until Discontinu ed, Routine ondansetron Yes 4mg 4 mg, Slow Univers (ZOFRAN 08-06 IV Push, ity of (PF)) 11:56: Q6HPRN, [place] injection 4 15 Nausea and Me dical mg Vomiting Branch (N/V), Starting on Thu08/06/21 at 0656
Do ses of ondansetro n 16 mg and above need to be administer ed via IV piggyback. For Dose >=24mg ECG monitoring is advisable.
melatonin Yes 6mg 6 mg, Univers (MELATIN) 08-06 Oral, ity of tablet 6 mg 02:21: QHSPRN, [place] 40 Starting Medical on Thu Branch 08/05/21 at 2121, Until Discontinu ed, Routine, Insomnia clonazePAM Yes 1mg 1 mg, Univer s (KLONOPIN) 08-06 Oral, BID, ity of tablet 1 mg 01:00: First dose [place] 00 (after Medical last Branch modificati on) on Thu08/05/21 at 2000, Until Discontinu ed metoprolol Yes 50mg 50 mg, Unive rs tartrate 08-05 Oral, BID, ity o f (LOPRESSOR) 23:00: First dose [place] tablet 50 00 (after Medical mg last Branch modificati on) on Thu08/05/21 at 1800, Until Discontinu ed, Routine lisinopriL 0 Yes 5mg 5 mg, Univer s (PRINIVIL,Z 08-05 Oral, BID, it y of ESTRIL) 23:00: First dose [place] tablet 5 mg 00 (after Medica l last Branch modificati on) on Thu08/05/21 at 1800, Until Discontinu ed, Routine enoxaparin Yes 40mg 40 mg, Unive rs (LOVENOX) 08-05 Subcutaneo ity of injection 22:00: us, DAILY, [place] 40 mg 00 First dose Medical on Thu Branch 08/05/21 at 1700, Until Discontinu ed, Routine LORazepam 2021- No .5mg 0.5 mg, Univ ers (ATIVAN) 08-05 Oral, ity of tablet 0.5 20:45: 19:54 ONCE, 1 [place] mg 00 :00 dose, On Medical [facility] Branch 08/05/21 at 1545, TITA nicotine 0 Yes 1{patch 1 Patch, Un jaqueline (NICODERM) 08-05 } Topical, ity o f 7 mg/24 hr 20:15: Administer [place] patch 1 00 over 24 Medical Patch Hours, Branch Q24H, First dose on Thu08/05/21 at 1515, Until Discontinu ed, Routine furosemide 2021-0 202- No 40mg 40 mg, IV U nivers (LASIX) 08-05 Push, ity of injection 19:30: 18:59 ONCE, 1 [place] 40 mg 00 :00 dose, On Medical [facility] Branch 08/05/21 at 1430, TITA HYDROcodone 2021-0 2021- Yes 1{tbl} 1 tablet, Univers -acetaminop 08-05 Oral, ity of hen (NORCO 18:59: 18:58 Q6HPRN, [place] 5) 5-325 mg 00 :00 Starting Medi kofi tablet 1 on Thu Branch tablet 08/05/21 at 1359, Until 08/07/21 at 1358, Routine, Pain (scale 4-6) acetaminoph 2021-0 Yes 650mg 650 mg, Un jaqueline en 08-05 Oral, ity of (TYLENOL) 18:58: Q6HPRN, [place] tablet 650 56 Starting Medic al mg on Thu Branch 08/05/21 at 1358, Until Discontinu ed, Routine, Pain (scale 1-3) lisinopriL 2021- No 5mg Take 5 mg U nivers 5 mg tablet 08-05 by mouth 2 i ty of 17:32: 00:00 (two) [place] 25 :00 times Medical daily. [place] Last dose given in ED aspirin 2021-0 202- No 325mg 325 mg, Unive rs tablet 325 08-05 Oral, ity of mg 17:00: 18:01 ONCE, 1 [place] 00 :00 dose, On Medical Thu Branch 08/05/21 at 1200, STAT LORazepam 2021-0 2021- No 2mg 2 mg, Univer s (ATIVAN) 06-05 Oral, ity of tablet 2 mg 16:30: 15:22 ONCE, 1 [place] 00 :00 dose, On Medical Thu Branch 06/05/21 at 1030, TITA lisinopriL 2021-0 Yes 5mg Take 5 mg Un jaqueline 5 mg tablet 06-05 by mouth 2 it y of 09:13: (two) [place] 22 times Medical daily. [place] Last dose given in ED hydroCHLORO 2021-0 Yes [id number] 25mg Take 1 Univers thiazide 25 1-17 tablet by ity of mg tablet 00:00: mouth [place] 00 every Medical morning. [place] hydroCHLORO 2021-0 Yes [id number] 25mg Take 1 Univers thiazide 25 1-17 tablet by ity of mg tablet 00:00: mouth [place] 00 every Medical morning. [place] hydroCHLORO 2021-0 2022- No [id number] 25mg Take 1 Univers thiazide 25 -28 tablet by it y of mg tablet 00:00: 00:00 mouth [place] 00 :00 every Medical morning. [place] lisinopriL 2020-05 Yes 5mg Take 5 mg Un jaqueline 5 mg tablet 2-28 by mouth 2 it y of 00:45: (two) [place] 01 times Medical daily. Branch Last dose given in ED lisinopriL 2020-05 Yes 5mg Take 5 mg Un jaqueline 5 mg tablet 2-28 by mouth 2 it y of 00:45: (two) [place] 01 times Medical daily. Branch Last dose given in ED atorvastati 2020-05 Yes 20mg 20 mg, Univ ers n (LIPITOR) 2- Oral, QHS, it y of tablet 20 03:00: First dose [place] mg 00 on [facility] 05/05/21 Branch at 2100, Until Discontinu ed, Routine aspirin 81 2020-05- No [id number] 81mg Take 1 Univers mg chewable 07-07 tablet by it y of tablet 00:00: 05:59 mouth [place] 00 :00 daily with Medical breakfast Branch for 30 days. aspirin 81 2020-05- No [id number] 81mg Take 1 Univers mg chewable 2-06-06 tablet by it y of tablet 00:00: 05:59 mouth [place] 00 :00 daily with Medical breakfast Branch for 30 days. aspirin 81 2020-05- No [id number] 81mg Take 1 Univers mg chewable 2-06-06 tablet by it y of tablet 00:00: 05:59 mouth [place] 00 :00 daily with Medical breakfast Branch for 30 days. aspirin 81 2020-05- No [id number] 81mg Take 1 Univers mg chewable 2-06-06 tablet by it y of tablet 00:00: 05:59 mouth [place] 00 :00 daily with Medical breakfast Branch for 30 days. enoxaparin 2020-05 Yes 30mg 30 mg, Unive rs (LOVENOX) 07-06 Subcutaneo ity of injection 23:00: us, DAILY, [place] 30 mg 00 First dose Medical on [place] Branch 05/05/21 at 1700, Until Discontinu ed, Routine magnesium 2020-05- No 4g 4 g, IV Univ ers sulfate in 07-06 Piggyback, it y of water 4 16:00: 15:35 ONCE, 1 [place] gram/50 mL 00 :00 dose, On Medic al (8 %) IV [place] Branch Piggyback 4 05/05/21 g at 1000, [...] 00 BREAKFAST, Medical First dose Branch on [place] 05/05/21 at 0800, Until Discontinu ed, Routine lisinopriL 2020-05 Yes 10mg 10 mg, Unive rs (PRINIVIL,Z 2- Oral, BID, it y of ESTRIL) 14:00: First dose [place] tablet 10 00 (after Medical mg last Branch modificati on) on [place] 05/05/21 at 0800, Until Discontinu ed, Routine metoprolol 2020-05 Yes 50mg 50 mg, Unive rs tartrate 2- Oral, BID, ity o f (LOPRESSOR) 14:00: First dose [place] tablet 50 00 on [place] Medical mg 05/05/21 Branch at 0800, Until Discontinu ed, Routine docusate 2020-05 Yes 100mg 100 mg, Unive rs (COLACE) 2- Oral, BID, ity o f capsule 100 14:00: First dose [place] mg 00 on [place] Medical 05/05/21 Branch at 0800, Until Discontinu ed, Routine lisinopriL 2020-05 Yes 5mg Take 5 mg Un jaqueline 5 mg tablet 07-06 by mouth 2 it y of 12:45: (two) [place] 29 times Medical daily. Branch Last dose given in ED clonazePAM 2020-05 Yes 2mg 2 mg, Univer s (KLONOPIN) 2-26 Oral, ity of tablet 2 mg 12:28: BIDPRN, [place] 22 Starting Medical on [place] Branch 05/05/21 at 0628, Until Discontinu ed, anxiety, insomnia ondansetron 2020-05 Yes 4mg 4 mg, Slow Univers (ZOFRAN 2-26 IV Push, ity of (PF)) 08:29: Q6HPRN, [place] injection 4 21 Starting Medi kofi mg on [place] Branch 05/05/21 at 0229, Until Discontinu ed, Routine, Nausea and Vomiting (N/V) lisinopriL 2020-05- No 10mg 10 mg, Univ ers (PRINIVIL,Z 07-06 Oral, ity of ESTRIL) 07:00: 05:55 ONCE, 1 [place] tablet 10 00 :00 dose, On Medica l mg [place] Branch 05/05/21 at 0100, Routine ketorolac 2020-05- [...] Branch 05/04/21 at 2045, STAT atorvastati 2020-05- No [id number] 20mg Take 1 Univers n 20 mg 07-06-16 tablet by ity of tablet 00:00: 05:59 mouth at [place] 00 :00 bedtime Medical for 20 Branch days. FENTanyl PF 2020-05- No 50ug 50 mcg, Un jaqueline (SUBLIMAZE 05-31 Intramuscu it y of (PF)) 15:45: 14:44 lar, ONCE, [place] injection 00 :00 1 dose, On Medi kofi 50 mcg [facility] 03/31/21 at 0945, Routine moxifloxaci 2020-05- No [id number] 400mg Take 1 Univers n 400 mg 0-11 10-22 tablet by ity o f tablet 00:00: 04:59 mouth [place] 00 :00 daily for Medical 10 days. Branch chlorphenir Yes [id number] 4mg Take 1 Univers amine 4 mg 9-16 tablet by ity of tablet 00:00: mouth [place] 00 every 6 Medical (six) Branch hours as needed for Allergies or Runny nose. calcium/mag Yes [id number] 1{each} Take 1 Univers nesium/zinc 9-16 Each by ity o f (CALCIUM-MA 00:00: mouth [place] GNESUIUM-ZI 00 daily. Medica l NC) Branch 333-133-5 mg Tab benzonatate 2020-0 Yes [id number] 100mg Take 1 Univers 100 mg 9-16 capsule by ity of capsule 00:00: mouth 3 [place] 00 (three) Medical times Branch daily as needed for Cough. ondansetron 2020-0 Yes [id number] 4mg Take 1 Univers 4 mg 9-16 tablet by ity of disintegrat 00:00: mouth [place] ing tablet 00 every 8 Medica l (eight) Branch hours as needed for Nausea and Vomiting (N/V). chlorphenir 2020-0 Yes [id number] 4mg Take 1 [facility] amine 4 mg 9-16 tablet by ity of tablet 00:00: mouth [place] 00 every 6 Medical (six) Branch hours as needed for Allergies or Runny nose. calcium/mag 2020-0 Yes [id number] 1{each} Take 1 [facility] nesium/zinc 9-16 Each by ity o f (CALCIUM-MA 00:00: mouth [place] GNESUIUM-ZI 00 daily. Medica l [place]) Branch 333-133-5 mg Tab benzonatate 2020-0 Yes [id number] 100mg Take 1 [facility] 100 mg 9-16 capsule by ity of capsule 00:00: mouth 3 [place] 00 (three) Medical times Branch daily as needed for Cough. ondansetron 2020-0 Yes [id number] 4mg Take 1 [facility] 4 mg 9-16 tablet by ity of disintegrat 00:00: mouth [place] ing tablet 00 every 8 Medica l (eight) Branch hours as needed for Nausea and Vomiting (N/V). chlorphenir 2021-0 Yes [id number] 4mg Take 1 [facility] amine 4 mg 9-16 tablet by ity of tablet 00:00: mouth [place] 00 every 6 Medical (six) Branch hours as needed for Allergies or Runny nose. calcium/mag 2021-0 Yes [id number] 1{each} Take 1 [facility] nesium/zinc 9-16 Each by ity o f (CALCIUM-MA 00:00: mouth [place] GNESUIUM-ZI 00 daily. Medica l [place]) Branch 333-133-5 mg Tab benzonatate 2021-0 Yes [id number] 100mg Take 1 [facility] 100 mg 9-16 capsule by ity of capsule 00:00: mouth 3 [place] 00 (three) Medical times Branch daily as needed for Cough. ondansetron 2020-0 Yes [id number] 4mg Take 1 [facility] 4 mg 9-16 tablet by ity of disintegrat 00:00: mouth [place] ing tablet 00 every 8 Medica l (eight) Branch hours as needed for Nausea and Vomiting (N/V). chlorphenir 2020-0 Yes [id number] 4mg Take 1 [facility] amine 4 mg 9-16 tablet by ity of tablet 00:00: mouth [place] 00 every 6 Medical (six) Branch hours as needed for Allergies or Runny nose. calcium/mag 2020-0 Yes [id number] 1{each} Take 1 [facility] nesium/zinc 9-16 Each by ity o f (CALCIUM-MA 00:00: mouth [place] GNESUIUM-ZI 00 daily. Medica l [place]) Branch 333-133-5 mg Tab benzonatate 2020-0 Yes [id number] 100mg Take 1 [facility] 100 mg 9-16 capsule by ity of capsule 00:00: mouth 3 [place] 00 (three) Medical times Branch daily as needed for Cough. ondansetron 2020-0 Yes [id number] 4mg Take 1 [facility] 4 mg 9-16 tablet by ity of disintegrat 00:00: mouth [place] ing tablet 00 every 8 Medica l (eight) Branch hours as needed for Nausea and Vomiting (N/V). azithromyci 2020-0 Yes [id number] 250mg Take 1 [facility] n 9-16 tablet by ity of (ZITHROMAX 00:00: mouth [place] Z-REFUGIO) 250 00 SEE-INSTRU Med ical mg tablet CTIONS. Branch Take 500 mg day 1, then 250 mg days 2 to 5. chlorphenir 2020-0 Yes [id number] 4mg Take 1 [facility] amine 4 mg 9-16 tablet by ity of tablet 00:00: mouth [place] 00 every 6 Medical (six) Branch hours as needed for Allergies or Runny nose. calcium/mag 2020-0 Yes [id number] 1{each} Take 1 [facility] nesium/zinc 9-16 Each by ity o f (CALCIUM-MA 00:00: mouth [place] GNESUIUM-ZI 00 daily. Medica l [place]) Branch 333-133-5 mg Tab benzonatate 2020-0 Yes [id number] 100mg Take 1 [facility] 100 mg 9-16 capsule by ity of capsule 00:00: mouth 3 [place] 00 (three) Medical times Branch daily as needed for Cough. ondansetron 2020-0 Yes [id number] 4mg Take 1 [facility] 4 mg 9-16 tablet by ity of disintegrat 00:00: mouth [place] ing tablet 00 every 8 Medica l (eight) Branch hours as needed for Nausea and Vomiting (N/V). azithromyci 2020-0 Yes [id number] 250mg Take 1 [facility] n 9-16 tablet by ity of (ZITHROMAX 00:00: mouth [place] Z-REFUGIO) 250 00 SEE-INSTRU Med ical mg tablet CTIONS. Branch Take 500 mg day 1, then 250 mg days 2 to 5. chlorphenir 2020-0 Yes [id number] 4mg Take 1 [facility] amine 4 mg 9-16 tablet by ity of tablet 00:00: mouth [place] 00 every 6 Medical (six) Branch hours as needed for Allergies or Runny nose. calcium/mag 2020-0 Yes [id number] 1{each} Take 1 [facility] nesium/zinc 9-16 Each by ity o f (CALCIUM-MA 00:00: mouth [place] GNESUIUM-ZI 00 daily. Medica l [place]) Branch 333-133-5 mg Tab benzonatate 2020-0 Yes [id number] 100mg Take 1 [facility] 100 mg 9-16 capsule by ity of capsule 00:00: mouth 3 [place] 00 (three) Medical times Branch daily as needed for Cough. ondansetron 2020-0 Yes [id number] 4mg Take 1 [facility] 4 mg 9-16 tablet by ity of disintegrat 00:00: mouth [place] ing tablet 00 every 8 Medica l (eight) Branch hours as needed for Nausea and Vomiting (N/V). chlorphenir 2020-0 Yes [id number] 4mg Take 1 [facility] amine 4 mg 9-16 tablet by ity of tablet 00:00: mouth [place] 00 every 6 Medical (six) Branch hours as needed for Allergies or Runny nose. calcium/mag 2020-0 Yes [id number] 1{each} Take 1 [facility] nesium/zinc 9-16 Each by ity o f (CALCIUM-MA 00:00: mouth [place] GNESUIUM-ZI 00 daily. Medica l [place]) Branch 333-133-5 mg Tab benzonatate 2020-0 Yes [id number] 100mg Take 1 [facility] 100 mg 9-16 capsule by ity of capsule 00:00: mouth 3 [place] 00 (three) Medical times Branch daily as needed for Cough. ondansetron 2020-0 Yes [id number] 4mg Take 1 [facility] 4 mg 9-16 tablet by ity of disintegrat 00:00: mouth [place] ing tablet 00 every 8 Medica l (eight) Branch hours as needed for Nausea and Vomiting (N/V). chlorphenir 2020-0 Yes [id number] 4mg Take 1 [facility] amine 4 mg 9-16 tablet by ity of tablet 00:00: mouth [place] 00 every 6 Medical (six) Branch hours as needed for Allergies or Runny nose. calcium/mag 0 Yes [id number] 1{each} Take 1 [facility] nesium/zinc 9-16 Each by ity o f (CALCIUM-MA 00:00: mouth [place] GNESUIUM-ZI 00 daily. Medica l NC) Branch 333-133-5 mg Tab benzonatate 0 Yes [id number] 100mg Take 1 [facility] 100 mg 9-16 capsule by ity of capsule 00:00: mouth 3 [place] 00 (three) Medical times Branch daily as needed for Cough. ondansetron 0 Yes [id number] 4mg Take 1 [facility] 4 mg 9-16 tablet by ity of disintegrat 00:00: mouth [place] ing tablet 00 every 8 Medica l (eight) Branch hours as needed for Nausea and Vomiting (N/V). chlorphenir 2020-0 2021- No [id number] 4mg Take 1 [facility] amine 4 mg 9-16 03-28 tablet by ity of tablet 00:00: 00:00 mouth [place] 00 :00 every 6 Medical (six) Branch hours as needed for Allergies or Runny nose. calcium/mag 2020-0 2021- No [id number] 1{each} Take 1 [facility] nesium/zinc 9-16 03-28 Each by ity of (CALCIUM-MA 00:00: 00:00 mouth [place] GNESUIUM-ZI 00 :00 daily. Medica l [place]) Branch 333-133-5 mg Tab benzonatate 20202021- No [id number] 100mg Take 1 [facility] 100 mg 9-16 - capsule by ity of capsule 00:00: 00:00 mouth 3 [place] 00 :00 (three) Medical times Branch daily as needed for Cough. ondansetron 2021- No [id number] 4mg Take 1 [facility] 4 mg 9-16 - tablet by ity of disintegrat 00:00: 00:00 mouth [place] ing tablet 00 :00 every 8 Medica l (eight) Branch hours as needed for Nausea and Vomiting (N/V). vitamin 2020- No [id number] 1{tbl} Take 1 [facility] D3-folic 9-16 10-17 tablet by ity o f acid 125 00:00: 04:59 mouth [place] mcg (5,000 00 :00 daily for Medi kofi unit)-1 mg 30 days. Branc h Tab vitamin 2020- No [id number] 1{tbl} Take 1 [facility] D3-folic 9-16 10-17 tablet by ity o f acid 125 00:00: 04:59 mouth [place] mcg (5,000 00 :00 daily for Medi kofi unit)-1 mg 30 days. Branc h Tab vitamin 2020- No [id number] 1{tbl} Take 1 [facility] D3-folic 9-16 10-17 tablet by ity o f acid 125 00:00: 04:59 mouth [place] mcg (5,000 00 :00 daily for Medi kofi unit)-1 mg 30 days. Branc h Tab azithromyci 2020- No [id number] 250mg Take 1 [facility] n 9-16 10-11 [...] ity of XL (TOPROL 14:52: 00:00 (two) [place] XL) 25 mg 24 :00 times Medical 24 hr daily. [place] tablet diazePAM 2020- No 10mg Take 10 mg Un jaqueline (VALIUM) 10 10-2820 by mouth 2 i ty of mg tablet 14:52: 00:00 (two) [place] 24 :00 times Medical daily. [place] cyanocobala Yes 1000ug 1,000 mcg, Univers min 10-26 Subcutaneo ity of (VITAMIN 22:00: [place], Q24H, [place] B12) 00 First dose Medical injection on Thu [place] 1,000 mcg 10/26/20 at 1700, Until Discontinu ed, Routine chlordiazeP Yes 25mg 25 mg, Univ ers OXIDE 10-26 Oral, TID, ity of (LIBRIUM) 21:00: First dose [place] capsule 25 00 on Thu Medical mg 10/26/20 at [place] 1600, Until Discontinu ed, Routine cholecalcif Yes 2000U 2,000 Univ ers becka 18 Units, ity of (vitamin 21:00: Oral, [place] D3) tablet 00 DAILY, Medical 2,000 Units First dose Br anch on Thu10/26/20 at 1600, Until Discontinu ed, Routine melatonin Yes 3mg 3 mg, Univers (MELATIN) 10-26 Oral, QHS, ity of tablet 3 mg 02:00: First dose [place] 00 on [facility] 10/25/20 at [place] 2100, Until Discontinu ed, Routine magnesium 2020- No 2g 2 g, IV Univ ers sulfate in 10-26 Piggyback, it y of water 2 00:45: 00:42 ONCE, 1 [place] gram/50 mL 00 :00 dose, [facility] Medi kofi (4 %) 10/25/20 at [place] infusion 2 1945, g Routine potassium 2020- No 10meq 10 mEq, IV [facility] chloride in 10-26 Piggyback, i ty of water 10 00:00: 05:40 Q1H, 5 [place] mEq/100 mL 00 :00 doses, Medical RTU 10 mEq First dose Bra nch on [facility] 10/25/20 at 1900, Last dose on [facility] 10/25/20 at 2300, 100 mL diazePAM No 10mg 10 mg, Univer s (VALIUM) 10-25 Intravenou ity of injection 22:45: 21:59 s, ONCE, 1 [place] 10 mg 00 :00 dose, [facility] Medical 10/25/20 at Branch 1745, TITA carvediloL Yes 12.5mg 12.5 mg, U nivers (COREG) 10-25 Oral, BID ity of tablet 12.5 22:00: MEALS, [place] mg 00 First dose Medical on [facility] 10/25/20 at 1700, Until Discontinu ed, Routine LORazepam 2020- No 2mg 2 mg, Slow U nivers (ATIVAN) 10-25 IV Push, ity of injection 2 18:00: 17:21 ONCE, 1 [place] mg 00 :00 dose, [facility] 10/25/20 at Branch 1300, Routine HYDROcodone Yes 1{tbl} 1 tablet, Univers -acetaminop 10-25 Oral, ity of hen (NORCO 16:49: Q6HPRN, [place] 5) 5-325 mg 43 Starting Medi kofi tablet 1 [facility] tablet 10/25/20 at 1149, Until Discontinu ed, Routine, Pain (scale 7-10) hydralAZINE Yes 10mg 10 mg, Univ ers (APRESOLINE 10-25 Slow IV ity o f ) injection 16:48: Push, [place] 10 mg 34 Q6HPRN, Medical Starting Branch [facility] 10/25/20 at 1148, Until Discontinu ed, Routine, DBP=>100; SBP=>160, For SBP > 160
Ind ication: Hypertensi ve Emergency labetaloL Yes 20mg 20 mg, Univer s (NORMODYNE) 10-25 Slow IV ity o f injection 14:58: Push, [place] 20 mg 25 Q6HPRN, Medical Starting Branch [facility] 10/25/20 at 0958, Until Discontinu ed, TITA, For SBP > 170 or DBP > 105 diazePAM 2020- No 10mg 10 mg, Univer s (VALIUM) 10-25 Intravenou ity of injection 14:30: 13:45 s, ONCE, 1 [place] 10 mg 00 :00 dose, [facility] 10/25/20 at Branch 0930, STAT escitalopra Yes 10mg 10 mg, Univ ers m oxalate 10-25 Oral, ity of (LEXAPRO) 14:00: DAILY, [place] tablet 10 00 First dose Medi kofi mg on [facility] 10/25/20 at 0900, Until Discontinu ed, Routine pantoprazol Yes 40mg 40 mg, Univ ers e 10-25 Oral, ity of (PROTONIX) 14:00: DAILY, [place] EC tablet 00 First dose Medi kofi 40 mg on [facility] 10/25/20 at 0900, Until Discontinu ed, Routine acetaminoph Yes 650mg 650 mg, Un jaqueline en 10-25 Oral, ity of (TYLENOL) 13:42: Q6HPRN, [place] tablet 650 14 Starting Medic al mg [facility] 10/25/20 at 0842, Until Discontinu ed, Routine, Pain (scale 1-3), Temp > 38.5 C magnesium 2020- No 400mg 400 mg, Uni vers oxide 10-25 Oral, BID, ity of (MAG-OX 13:30: 12:59 8 doses, [place] 400) tablet 00 :00 First dose Me dical 400 mg on [facility] 10/25/20 at 0830, Last dose on 10/28/20 at 2000, Routine LORazepam 2020- No 1mg 1 mg, Slow U nivers (ATIVAN) 10-25 IV Push, ity of injection 1 05:30: 04:30 ONCE, 1 [place] mg 00 :00 dose, [facility] 10/25/20 at Branch 0030, Routine HYDROcodone 0 2020- No 1{tbl} 1 tablet, Univers -acetaminop 10-24 Oral, ity of hen (NORCO 22:45: 22:14 ONCE, 1 [place] 5) 5-325 mg 00 :00 dose, Wed Med ical tablet 1 10/24/20 at [facility] h tablet 1745, Routine enoxaparin Yes 40mg 40 mg, Unive rs (LOVENOX) 10-24 Subcutaneo ity of injection 22:00: us, DAILY, [place] 40 mg 00 First dose Medical on Thu Branch 10/24/20 at 1700, Until Discontinu ed, Routine sulfur 2020-2020- No [id number] 5mL 5 mL, Unive rs hexafluorid 10-24 Intravenou i ty of e microsphr 21:15: 21:15 s, ONCE, 1 [place] (LUMASON) 00 :00 dose, Thu Medic al injection 5 10/24/20 at Br anch mL 1615, Routine
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 member approving Restricted medication : JASPREET GOFF proMETHazin Yes 25mg 25 mg, Univ [...] Medical 10/24/20 at Branch 1315, STAT diazePAM 2020- No 10mg 10 mg, Univer s (VALIUM) 10-24 Intravenou ity of injection 17:45: 17:10 s, ONCE, 1 [place] 10 mg 00 :00 dose, Thu10/24/20 at Branch 1245, TITA metoprolol 2020- No 50mg 50 mg, [facility] ers tartrate 10-2417 Oral, BID, ity of (LOPRESSOR) 17:15: 16:49 First dose [place] tablet 50 00 :21 on Thu Medical mg 10/24/20 at Branch 1215, Until Discontinu ed, Routine ondansetron Yes 4mg 4 mg, Unive rs (ZOFRAN-ODT 10-24 Oral, ity of ) 17:02: Q8HPRN, [place] disintegrat 20 Starting Medi kofi ing tablet Wed Branch 4 mg 10/24/20 at 1202, Until Discontinu ed, Routine, Nausea and Vomiting (N/V) LORazepam No 2mg 2 mg, Slow U nivers (ATIVAN) 10-24 IV Push, ity of injection 2 17:00: 16:01 ONCE, 1 [place] mg 00 :00 dose, [facility] Medical 10/24/20 at Branch 1200, STAT labetaloL 2020- No 20mg 20 mg, Unive rs (NORMODYNE) 10-24 Slow IV ity of injection 17:00: 16:01 Push, [place] 20 mg 00 :00 ONCE, 1 Medical dose, [facility] Branch 10/24/20 at 1200, TITA lactated 2020- No 30mL/kg at 999 Uni vers ringers IV 10-24 mL/hr, ity of infusion 16:45: 18:17 2,925 mL [place] 2,925 mL 00 :00 (30 mL/kg Medica l ?97.5 kg), [place] IV Infusion, ONCE, 1 dose, 10/24/20 at 1145, STAT glucagon Yes 1mg [...] injection 42 Starting Medica l 25 mL [facility] Branch 10/24/20 at 1143, Until Discontinu ed, TITA, Blood Glucose < or = 70 mg/dL and patient is unable to swallow or has mental status changes. LORazepam 2020- No 2mg 2 mg, Slow U nivers (ATIVAN) 10-24 IV Push, ity of injection 2 16:00: 15:04 ONCE, 1 [place] mg 00 :00 dose, Thu Medical 10/24/20 at Branch 1100, Routine diazePAM 2020- No 10mg 10 mg, Univer s (VALIUM) 10-24 Intravenou ity of injection 16:00: 15:21 s, ONCE, 1 [place] 10 mg 00 :00 dose, Thu10/24/20 at Branch 1100, Routine LORazepam 2020- No [...] dose, Thu10/24/20 at Branch 1015, STAT ondansetron Yes 4mg 4 mg, Slow Univers (ZOFRAN 16 IV Push, ity of (PF)) 14:58: Q6HPRN, [place] injection 4 39 Starting Medi kofi mg Thu [place] 10/24/20 at 0958, Until Discontinu ed, Routine, Nausea and Vomiting (N/V) ondansetron 2020- No 4mg 4 mg, Slow Univers (ZOFRAN 16 10-24 IV Push, ity of (PF)) 14:15: 13:16 ONCE, 1 [place] injection 4 00 :00 dose, Thu Med ical mg 10/24/20 at Branch 0915, TITA foLIC acid Yes 1mg 1 mg, Univer s (FOLATE) 6-16 Oral, ity of tablet 1 mg 14:00: DAILY, [place] 00 First dose Medical on Thu10/24/20 at 0900, Until Discontinu ed, Routine thiamine Yes 100mg 100 mg, Unive rs (VITAMIN 6-16 Oral, ity of B1) tablet 14:00: DAILY, [place] 100 mg 00 First dose Medical on Thu [place] 10/24/20 at 0900, Until Discontinu ed, Routine thiamine 2020- No IV Univers (VITAMIN 6-16 -17 Infusion, ity o f B1) 100 mg, [...] 1 [place] mg 00 :00 dose, [facility] Medical 10/24/20 at Branch 0845, STAT ondansetron [...] mg 00 :00 ONCE, 1 Medical dose, [facility] 10/24/20 at 0845, TITA oxazepam 2020- No 15mg 15 mg, Univer s (SERAX) 10-24 Oral, ity of capsule 15 13:40: 20:57 Q4HPRN, [place] mg 38 :53 Starting Medical [facility] Branch 10/24/20 at 0840, Until Thu10/26/20 at 1557, Routine, Only while awake for DBP equal to or greater than 100, HR equal to or greater than 100. iopamidol 2020- No [id number] 100mL 100 mL, Univers (ISOVUE 10-24 Intravenou ity o f 370-500 mL) 13:00: 11:40 s, ONCE, 1 [place] injection 00 :00 dose, Wed Medic al 100 mL 10/24/20 at Branch 0800, Routine LORazepam 2020- No 1mg 1 mg, Slow U nivers (ATIVAN) 10-24 IV Push, ity of injection 1 13:00: 11:54 ONCE, 1 [place] mg 00 :00 dose, [facility] Medical 10/24/20 at Branch 0800, STAT NaCl 0.9% 2020-2020- No 1000mL at 999 Uni vers (NS) bolus 10-24 mL/hr, ity of infusion 11:30: 11:27 1,000 mL, [place] 1,000 mL 00 :00 IV Medical Infusion, [place] ONCE, 1 dose, 10/24/20 at 0630, STAT metoprolol 2020-0 2020- No 5mg 5 mg, Slow Univers (LOPRESSOR) 07-29 IV Push, ity of injection 5 00:30: 23:26 ONCE, 1 [place] mg 00 :00 dose, [facility] 07/28/20 at Branch 1930, TITA NaCl 0.9% 2020- No 1000mL at 999 Uni vers (NS) bolus 07-28 mL/hr, ity of infusion 22:15: 00:55 1,000 mL, [place] 1,000 mL 00 :00 IV Medical Infusion, [place] ONCE, 1 dose, 07/28/20 at 1715, STAT LORazepam 2020-2020- No 1mg 1 mg, Slow U nivers (ATIVAN) 07-28 IV Push, ity of injection 1 22:15: 21:18 ONCE, 1 [place] mg 00 :00 dose, [facility] 07/28/20 at Branch 1715, STAT LORazepam 2020-0 2020- No 1mg 1 mg, Slow U nivers (ATIVAN) 07-28 IV Push, ity of injection 1 19:31: 19:31 ONCE, 1 [place] mg 00 :00 dose, [facility] Medical 07/28/20 at Branch 1445, STAT LORazepam 2020-0 2020- No 1mg 1 mg, Slow U nivers (ATIVAN) 07-28 IV Push, ity of injection 1 19:30: 18:28 ONCE, 1 [place] mg 00 :00 dose, [facility] 07/28/20 at Branch 1430, STAT metoprolol 2020-0 2020- No 50mg 50 mg, Univ ers [...] dose, 06/30/20 at 0600, TITA metoprolol Yes [id number] 50mg Take 2 U nivers tartrate 25 2-20 tablets by it y of mg tablet 00:00: mouth [place] [facility] Medical times Branch daily. metoprolol Yes [id number] 50mg Take 2 U nivers tartrate 25 2-20 tablets by it y of mg tablet 00:00: mouth [place] [facility] Medical times Branch daily. metoprolol Yes [id number] 50mg Take 2 U nivers tartrate 25 2-20 tablets by it y of mg tablet 00:00: mouth [place] [facility] Medical times Branch daily. metoprolol 0 Yes [id number] 50mg Take 2 U nivers tartrate 25 2-20 tablets by it y of mg tablet 00:00: mouth [place] (two) Medical times Branch daily. metoprolol Yes [id number] 50mg Take 2 U nivers tartrate 25 2-20 tablets by it y of mg tablet 00:00: mouth [place] (two) Medical times Branch daily. metoprolol Yes [id number] 50mg Take 2 U nivers tartrate 25 2-20 tablets by it y of mg tablet 00:00: mouth [place] [facility] Medical times Branch daily. metoprolol 0 Yes [id number] 50mg Take 2 U nivers tartrate 25 2-20 tablets by it y of mg tablet 00:00: mouth [place] (two) Medical times Branch daily. metoprolol Yes [id number] 50mg Take 2 U nivers tartrate 25 2-20 tablets by it y of mg tablet 00:00: mouth (two) Medical times Branch daily. metoprolol 2020-0 Yes [id number] 50mg Take 2 U nivers tartrate 25 2-20 tablets by it y of mg tablet 00:00: mouth (two) Medical times Branch daily. metoprolol 2020-0 Yes [id number] 50mg Take 2 U nivers tartrate 25 2-20 tablets by it y of mg tablet 00:00: mouth (two) Medical times Branch daily. metoprolol 2020-0 Yes [id number] 50mg Take 2 U nivers tartrate 25 2-20 tablets by it y of mg tablet 00:00: mouth (two) Medical times Branch daily. metoprolol 2020-0 Yes [id number] 50mg Take 2 U nivers tartrate 25 2-20 tablets by it y of mg tablet 00:00: mouth (two) Medical times Branch daily. metoprolol 2020-0 Yes [id number] 50mg Take 2 U nivers tartrate 25 2-20 tablets by it y of mg tablet 00:00: mouth (two) Medical times Branch daily. metoprolol 2020-0 2021- No [id number] 50mg Take 2 [facility] tartrate 25 2-20 03-30 tablets by i ty of mg tablet 00:00: 00:00 mouth 2 [place] 00 :00 (two) Medical times Branch daily. ibuprofen 2020-2020- No 600mg 600 mg, Uni vers (IBU) 06-23 Oral, ity of tablet 600 21:15: 20:35 ONCE, 1 [place] mg 00 :00 dose, Sat Medical 06/23/20 at Branch 1515, TITA ibuprofen 2020-0 Yes [id number] 600mg Take 1 [facility] 600 mg - [id number] tablet by ity of tablet 00:00: mouth 00 every 6 Medical (six) Branch hours as needed for Pain (scale 4-6). ibuprofen 2020-0 Yes [id number] 600mg Take 1 [facility] 600 mg - [id number] tablet by ity of tablet 00:00: mouth 00 every 6 Medical (six) Branch hours as needed for Pain (scale 4-6). ibuprofen 2020-0 Yes [id number] 600mg Take 1 [facility] 600 mg 06-23 [id number] tablet by ity of tablet 00:00: mouth [place] 00 every 6 Medical (six) Branch hours as needed for Pain (scale 4-6). ibuprofen 2020- No [id number] 600mg Take 1 [facility] 600 mg 06-23- [id number] tablet by ity o f tablet 00:00: 00:00 mouth [place] 00 :00 every 6 Medical (six) Branch hours as needed for Pain (scale 4-6). venlafaxine 2019- No [id number] 225mg QD Take 3 M ethodi XR 02-[address] (EFFEXOR-XR 00:00: 04:59 (225 mg Ho spita ) 75 MG 24 00 :00 total) by l hr capsule mouth every morning for 7 days .major depressive disorder. nicotine 2019- No [id number] 2mg Q2H Chew 1 Metho di polacrilex 01-31 each ([address] (NICORETTE) 00:00: 04:59 total) Hos [facility] 2 mg gum 00 :00 every 2 l (two) hours as needed for smoking cessation for up to 30 days .stop smoking. metoprolol 2019- No [id number] 50mg Q.5D Take 1 Met hodi tartrate 01-31 tablet (50 st (LOPRESSOR) 00:00: 04:59 mg total) Hospita 50 mg 00 :00 by mouth l tablet BID at 0700, 1900 for 30 days .high blood pressure. busPIRone 2019- No [id number] 7.5mg Q.5D Take 1 Met hodi (BUSPAR) 01-[address] 7.5 MG 00:00: 04:59 (7.5 mg Hospita tablet 00 :00 total) by l mouth 2 (two) times a day for 7 days .repeated episodes of anxiety. sodium 2019-0 Yes 5mL 5 mL, Univers chloride 11-09 Intravenou ity o f (NS) 04:17: s, PRN, [place] injection 5 55 Starting Medi kofi mL 11/09/19 Branch at 2317, Until Discontinu ed, Routine, IV line flushing dicyclomine 2019- No 20mg 20 mg, Uni vers (BENTYL) 09-28-21 Oral, ity of capsule 20 16:00: 15:16 ONCE, 1 [place] mg 00 :00 dose, [facility] 09/29/19 at Branch 1100, Routine ondansetron 2019-0 2020- No 4mg 4 mg, Slow Univers (ZOFRAN -28 09- IV Push, ity of (PF)) 16:00: 15:23 ONCE, 1 [place] injection 4 00 :00 dose, [facility] ical mg 09/29/19 at Branch 1100, TITA NaCl 0.9% 2019-0 2020- No 1000mL at 999 Uni vers (NS) bolus 09-28- mL/hr, ity of infusion 16:00: 16:30 1,000 mL, [place] 1,000 mL 00 :00 IV Medical Piggyback, [place] ONCE, 1 dose, [facility] 09/29/19 at 1100, STAT loperamide 2020-0 Yes 2mg 2 mg, Univer s (IMODIUM - Oral, ity of A-D) 14:53: Q4HPRN, [place] capsule 2 46 Starting Medica l mg [facility] 09/29/19 at 0953, Until Discontinu ed, Routine, Diarrhea ondansetron 2020-0 Yes [id number] 4mg Take 1 U nivers 4 mg 5-21 tablet by ity of disintegrat 00:00: mouth [place] ing tablet 00 every 8 Medica l (eight) Branch hours as needed for Nausea and Vomiting (N/V). loperamide 2020-0 Yes [id number] 2mg Take 1 Un jaqueline 2 mg 5-21 capsule by ity of capsule 00:00: mouth [place] 00 every 4 Medical (four) Branch hours as needed for Diarrhea. Not to exceed 16mg daily. ondansetron 2020-0 Yes [id number] 4mg Take 1 U nivers 4 mg 5-21 tablet by ity of disintegrat 00:00: mouth [place] ing tablet 00 every 8 Medica l (eight) Branch hours as needed for Nausea and Vomiting (N/V). loperamide 2020-0 Yes [id number] 2mg Take 1 Un jaqueline 2 mg 5-21 capsule by ity of capsule 00:00: mouth [place] 00 every 4 Medical (four) Branch hours as needed for Diarrhea. Not to exceed 16mg daily. ondansetron 2020-0 Yes [id number] 4mg Take 1 U nivers 4 mg 5-21 tablet by ity of disintegrat 00:00: mouth [place] ing tablet 00 every 8 Medica l (eight) Branch hours as needed for Nausea and Vomiting (N/V). loperamide 2020-0 Yes [id number] 2mg Take 1 Un jaqu[place] 2 mg 5-21 capsule by ity of capsule 00:00: mouth [place] 00 every 4 Medical (four) Branch hours as needed for Diarrhea. Not to exceed 16mg daily. ondansetron 2020-0 Yes [id number] 4mg Take 1 U nivers 4 mg 5-21 tablet by ity of disintegrat 00:00: mouth [place] ing tablet 00 every 8 Medica l (eight) Branch hours as needed for Nausea and Vomiting (N/V). loperamide 2020-0 Yes [id number] 2mg Take 1 Un jaqueline 2 mg 5-21 capsule by ity of capsule 00:00: mouth [place] 00 every 4 Medical (four) Branch hours as needed for Diarrhea. Not to exceed 16mg daily. ondansetron 2020-0 Yes [id number] 4mg Take 1 U nivers 4 mg 5-21 tablet by ity of disintegrat 00:00: mouth [place] ing tablet 00 every 8 Medica l (eight) Branch hours as needed for Nausea and Vomiting (N/V). loperamide 2020-0 Yes [id number] 2mg Take 1 Un jaqueline 2 mg 5-21 capsule by ity of capsule 00:00: mouth [place] 00 every 4 Medical (four) Branch hours as needed for Diarrhea. Not to exceed 16mg daily. ondansetron 2020-0 Yes [id number] 4mg Take 1 U nivers 4 mg 5-21 tablet by ity of disintegrat 00:00: mouth [place] ing tablet 00 every 8 Medica l (eight) Branch hours as needed for Nausea and Vomiting (N/V). ondansetron 2020-0 Yes [id number] 4mg Take 1 U nivers 4 mg 5-21 tablet by ity of disintegrat 00:00: mouth [place] ing tablet 00 every 8 Medica l (eight) Branch hours as needed for Nausea and Vomiting (N/V). ondansetron 2020-0 Yes [id number] 4mg Take 1 U nivers 4 mg 5-21 tablet by ity of disintegrat 00:00: mouth [place] ing tablet 00 every 8 Medica l (eight) Branch hours as needed for Nausea and Vomiting (N/V). ondansetron 2019-2020- No [id number] 4mg Take 1 [facility] 4 mg 5-21 -16 tablet by ity of disintegrat 00:00: 00:[place] :00 every 8 Medica l (eight) Branch hours as needed for Nausea and Vomiting (N/V). ondansetron 2019-2020- No [id number] 4mg Take 1 [facility] 4 mg 5-21 -16 tablet by ity of disintegrat 00:00: 00:[place] tablet 00 :00 every 8 Medica l (eight) Branch hours as needed for Nausea and Vomiting (N/V). loperamide [id number] 2mg Take 1 U nivers 2 mg -29 10-20 capsule by ity of capsule 00:00: 00:00 mouth [place] 00 :00 every 4 Medical (four) Branch hours as needed for Diarrhea. Not to exceed 16mg daily. dicyclomine No [id number] 10mg Take 1 Univers (BENTYL) 10 - 05-27 capsule by i ty of mg capsule 00:00: 04:59 mouth [place] 00 :00 every 8 Medical (eight) Branch hours as needed for Abdominal pain for up to 5 days. diazePAM 2019- No 5mg 5 mg, Slow Un jaqueline (VALIUM) 2 02-06 IV Push, ity of injection 5 15:45: 14:45 ONCE, 1 [place] :[place] dose, [facility] 06/16/19 at Branch 0945, STAT diazePAM 2019- No 2.5mg 2.5 mg, Univ ers (VALIUM) 2 02-06 Oral, ity of tablet 2.5 14:15: 14:08 ONCE, 1 [place] mg 00 :00 dose, [facility] 06/16/19 at Branch 0815, ITTA LORazepam 2019- No 1mg 1 mg, Slow U nivers (ATIVAN) 06-15 02-05 IV Push, ity of injection 1 20:00: 18:59 ONCE, 1 [place] 00 :[place] dose, [facility] 06/15/19 at Branch 1400, STAT metoprolol 2020-0 Yes 50mg Take [...] 2 ity of XL (TOPROL 16:21: (two) [place] XL) 25 mg 12 times Medical 24 hr daily. Branch tablet diazePAM 2020-0 Yes 10mg Take 10 mg Uni vers (VALIUM) 10 1-19 by mouth 2 it y of mg tablet 16:21: (two) [place] 12 times Medical daily. Branch metoprolol 2020-0 Yes 50mg Take 50 mg U nivers succinate 1-19 by mouth 2 ity of XL (TOPROL 16:21: (two) [place] XL) 25 mg 12 times Medical 24 hr daily. Branch tablet diazePAM 2020-0 Yes 10mg Take 10 mg Uni vers (VALIUM) 10 1-19 by mouth 2 it y of mg tablet 16:21: ([facility] [place] 12 times Medical daily. Branch metoprolol 2020-0 Yes 50mg Take 50 mg U nivers succinate 1-19 by mouth 2 ity of XL (TOPROL 16:21: (two) [place] XL) 25 mg 12 times Medical 24 hr daily. Branch tablet diazePAM 2020-0 Yes 10mg Take 10 mg Uni vers (VALIUM) 10 1-19 by mouth 2 it y of mg tablet 16:21: (two) [place] 12 times Medical daily. Branch metoprolol 2020-0 Yes 50mg Take 50 mg U nivers succinate 1-19 by mouth 2 ity of XL (TOPROL 16:21: (two) [place] XL) 25 mg 12 times Medical 24 hr daily. Branch tablet diazePAM 2020-0 Yes 10mg Take 10 mg Uni vers (VALIUM) 10 1-19 by mouth 2 it y of mg tablet 16:21: (two) [place] 12 times Medical daily. Branch amoxicillin 2020-0 2020- No [id number] 500mg Take 1 Univers 500 mg 05-29 capsule by ity of capsule 00:00: 05:59 mouth 2 [place] 00 :00 (two) Medical times Branch daily for 10 days. amoxicillin 2020-0 2020- No [id number] 500mg Take 1 Univers 500 mg 1-19 01-30 capsule by ity of capsule 00:00: 05:59 mouth 2 [place] 00 :00 (two) Medical times Branch daily for 10 days. metoprolol 2018-05 Yes 50mg Take 50 mg U nivers succinate 0-12 by mouth 2 ity of XL (TOPROL 08:43: (two) [place] XL) 25 mg 57 times Medical 24 hr daily. Branch tablet diazePAM 2018-05 Yes 10mg Take 10 mg Uni vers (VALIUM) 10 0-12 by mouth 2 it y of mg tablet 08:43: (two) [place] 57 times Medical daily. Branch pantoprazol 2018-05 Yes [id number] 40mg Take 1 Univers e 0-12 tablet by ity of (PROTONIX) 00:00: mouth [place] 40 mg EC 00 daily. Medical tablet Branch pantoprazol 2018-05 Yes [id number] 40mg Take 1 Univers e 0-12 tablet by ity of (PROTONIX) 00:00: mouth [place] 40 mg EC 00 daily. Medical tablet Branch pantoprazol 2018-05 Yes [id number] 40mg Take 1 Univers e 0-12 tablet by ity of (PROTONIX) 00:00: mouth [place] 40 mg EC 00 daily. Medical tablet Branch pantoprazol 2018-05 Yes [id number] 40mg Take 1 Univers e 0-12 tablet by ity of (PROTONIX) 00:00: mouth [place] 40 mg EC 00 daily. Medical tablet Branch pantoprazol 2018-05 Yes [id number] 40mg Take 1 Univers e 0-12 tablet by ity of (PROTONIX) 00:00: mouth [place] 40 mg EC 00 daily. Medical tablet Branch pantoprazol 2018-05 Yes [id number] 40mg Take 1 Univers e 0-12 tablet by ity of (PROTONIX) 00:00: mouth [place] 40 mg EC 00 daily. Medical tablet Branch pantoprazol 2018-05 Yes [id number] 40mg Take 1 Univers e 0-12 tablet by ity of (PROTONIX) 00:00: mouth [place] 40 mg EC 00 daily. Medical tablet Branch pantoprazol 2018-05 Yes [id number] 40mg Take 1 Univers e 0-12 tablet by ity of (PROTONIX) 00:00: mouth [place] 40 mg EC 00 daily. Medical tablet Branch pantoprazol 2018-05 Yes [id number] 40mg Take 1 Univers e 0-12 tablet by ity of (PROTONIX) 00:00: mouth [place] 40 mg EC 00 daily. Medical tablet Branch pantoprazol 2018-05 Yes [id number] 40mg Take 1 Univers e 0-12 tablet by ity of (PROTONIX) 00:00: mouth [place] 40 mg EC 00 daily. Medical tablet Branch pantoprazol 2018-05 Yes [id number] 40mg Take 1 Univers e 0-12 tablet by ity of (PROTONIX) 00:00: mouth [place] 40 mg EC 00 daily. Medical tablet Branch pantoprazol 2018-05 Yes [id number] 40mg Take 1 Univers e 0-12 tablet by ity of (PROTONIX) 00:00: mouth [place] 40 mg EC 00 daily. Medical tablet Branch pantoprazol 2018-05 Yes [id number] 40mg Take 1 Univers e 0-12 tablet by ity of (PROTONIX) 00:00: mouth [place] 40 mg EC 00 daily. Medical tablet Branch pantoprazol 2018-05 Yes [id number] 40mg Take 1 Univers e 0-12 tablet by ity of (PROTONIX) 00:00: mouth [place] 40 mg EC 00 daily. Medical tablet Branch pantoprazol 2018-05 Yes [id number] 40mg Take 1 Univers e 0-12 tablet by ity of (PROTONIX) 00:00: mouth [place] 40 mg EC 00 daily. Medical tablet Branch pantoprazol 2018-05 Yes [id number] 40mg Take 1 Univers e 0-12 tablet by ity of (PROTONIX) 00:00: mouth [place] 40 mg EC 00 daily. Medical tablet Branch pantoprazol 2018-05 Yes [id number] 40mg Take 1 Univers e 0-12 tablet by ity of (PROTONIX) 00:00: mouth [place] 40 mg EC 00 daily. Medical tablet Branch pantoprazol 2018-05 Yes [id number] 40mg Take 1 Univers e 0-12 tablet by ity of (PROTONIX) 00:00: mouth [place] 40 mg EC 00 daily. Medical tablet Branch pantoprazol 2018-05 Yes [id number] 40mg Take 1 Univers e 0-12 tablet by ity of (PROTONIX) 00:00: mouth [place] 40 mg EC 00 daily. Medical tablet Branch pantoprazol 2018-05 Yes [id number] 40mg Take 1 Univers e 0-12 tablet by ity of (PROTONIX) 00:00: mouth [place] 40 mg EC 00 daily. Medical tablet Branch pantoprazol 2018-05 Yes [id number] 40mg Take 1 Univers e 0-12 tablet by ity of (PROTONIX) 00:00: mouth [place] 40 mg EC 00 daily. Medical tablet Branch pantoprazol 2018-05 Yes [id number] 40mg Take 1 Univers e 0-12 tablet by ity of (PROTONIX) 00:00: mouth [place] 40 mg EC 00 daily. Medical tablet Branch pantoprazol 2018-05- No [id number] 40mg Take 1 Univers e 0-12 03-28 tablet by ity of (PROTONIX) 00:00: 00:00 mouth [place] 40 mg EC 00 :00 daily. Medical tablet Branch ketorolac 2018- No 15mg 15 mg, Unive rs (TORADOL) 01-25 Slow IV ity of injection 01:00: 23:57 Push, [place] 15 mg 00 :00 ONCE, 1 Medical dose, [facility] Branch 01/24/19 at 2000, Routine
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 01/24/19 at 1615, TITA methocarbam Yes [id number] 500mg Take 1 Univers ol 500 mg 9-16 tablet by ity o f tablet 00:00: mouth (four) Medical times Branch daily. methocarbam Yes [id number] 500mg Take 1 Univers ol 500 mg 9-16 tablet by ity o f tablet 00:00: mouth (four) Medical times Branch daily. methocarbam Yes [id number] 500mg Take 1 Univers ol 500 mg 9-16 tablet by ity o f tablet 00:00: mouth (four) Medical times Branch daily. methocarbam Yes [id number] 500mg Take 1 Univers ol 500 mg 9-16 tablet by ity o f tablet 00:00: mouth (four) Medical times Branch daily. methocarbam Yes [id number] 500mg Take 1 Univers ol 500 mg 9-16 tablet by ity o f tablet 00:00: mouth 4 [place] ([facility]) Medical times Branch daily. methocarbam 2018- Yes [id number] 500mg Take 1 Univers ol 500 mg 9-16 tablet by ity o f tablet 00:00: mouth 4 [place] (four) Medical times Branch daily. methocarbam 2018- Yes [id number] 500mg Take 1 Univers ol 500 mg 9-16 tablet by ity o f tablet 00:00: mouth 4 [place] 00 (four) Medical times Branch daily. methocarbam 2018- Yes [id number] 500mg Take 1 Univers ol 500 mg 9-16 tablet by ity o f tablet 00:00: mouth 4 [place] 00 ([facility]) Medical times Branch daily. methocarbam 2018- Yes [id number] 500mg Take 1 Univers ol 500 mg 9-16 tablet by ity o f tablet 00:00: mouth 4 [place] ([facility]) Medical times Branch daily. methocarbam Yes [id number] 500mg Take 1 Univers ol 500 mg 9-16 tablet by ity o f tablet 00:00: mouth [address] [place] [address] ([facility]) Medical times Branch daily. methocarbam Yes [id number] 500mg Take 1 Univers ol 500 mg 9-16 tablet by ity o f tablet 00:00: mouth [address] [place] [address] ([facility]) Medical times Branch daily. methocarbam Yes [id number] 500mg Take 1 Univers ol 500 mg 9-16 tablet by ity o f tablet 00:00: mouth 4 [place] ([facility]) Medical times Branch daily. methocarbam 2020- No [id number] 500mg Take 1 Univers ol 500 mg 9-16 06-20 tablet by ity of tablet 00:00: 00:00 mouth 4 [place] 00 :00 ([facility]) Medical times Branch daily. ketorolac 2018- No 30mg 30 mg, Unive rs (TORADOL) 12-21 Slow IV ity of injection 23:45: 23:22 Push, [place] 30 mg 00 :00 ONCE, 1 Medical dose, e Branch 12/21/18 at 1845, [facility] : DEMOND PERSON dicyclomine 2018- No 20mg 20 mg, Uni vers (BENTYL) 12-21 Oral, ONCE ity of capsule 20 23:45: 23:22 NOW, 1 [place] mg [place] :[place] dose, [facility] 12/21/18 at Branch 1845, Routine ondansetron [...] [facility] 12/21/18 at 1730, STAT ondansetron 2018-0 Yes [id number] 4mg Take 1 Univers (ZOFRAN 8-13 tablet by ity of ODT) 4 mg 00:00: mouth [place] disintegrat 00 every 8 Medic al ing tablet (eight) Branch hours as needed for Nausea and Vomiting (N/V). dicyclomine 2019-0 Yes [id number] 20mg Take 1 Univers (BENTYL) 20 8-13 tablet by ity of mg tablet 00:00: mouth 3 [place] 00 (three) Medical times Branch daily as needed for Abdominal pain. ondansetron 2019-0 Yes [id number] 4mg Take 1 Univers (ZOFRAN 8-13 tablet by ity of ODT) 4 mg 00:00: mouth [place] disintegrat 00 every 8 Medic al ing tablet (eight) Branch hours as needed for Nausea and Vomiting (N/V). dicyclomine 2019-0 Yes [id number] 20mg Take 1 Univers (BENTYL) 20 8-13 tablet by ity of mg tablet 00:00: mouth 3 [place] 00 (three) Medical times Branch daily as needed for Abdominal pain. ondansetron 2019-0 Yes [id number] 4mg Take 1 Univers (ZOFRAN 8-13 tablet by ity of ODT) 4 mg 00:00: mouth [place] disintegrat 00 every 8 Medic al ing tablet (eight) Branch hours as needed for Nausea and Vomiting (N/V). dicyclomine 2019-0 Yes [id number] 20mg Take 1 Univers (BENTYL) 20 8-13 tablet by ity of mg tablet 00:00: mouth 3 [place] 00 (three) Medical times Branch daily as needed for Abdominal pain. ondansetron 2019-0 Yes [id number] 4mg Take 1 Univers (ZOFRAN 8-13 tablet by ity of ODT) 4 mg 00:00: mouth [place] disintegrat 00 every 8 Medic al ing tablet (eight) Branch hours as needed for Nausea and Vomiting (N/V). dicyclomine 2019-0 Yes [id number] 20mg Take 1 Univers (BENTYL) 20 8-13 tablet by ity of mg tablet 00:00: mouth 3 [place] 00 (three) Medical times Branch daily as needed for Abdominal pain. ondansetron 2019-0 Yes [id number] 4mg Take 1 Univers (ZOFRAN 8-13 tablet by ity of ODT) 4 mg 00:00: mouth [place] disintegrat 00 every 8 Medic al ing tablet (eight) Branch hours as needed for Nausea and Vomiting (N/V). dicyclomine 2019-0 Yes [id number] 20mg Take 1 Univers (BENTYL) 20 8-13 tablet by ity of mg tablet 00:00: mouth 3 [place] 00 (three) Medical times Branch daily as needed for Abdominal pain. ondansetron 2019-0 Yes [id number] 4mg Take 1 Univers (ZOFRAN 8-13 tablet by ity of ODT) 4 mg 00:00: mouth [place] disintegrat 00 every 8 Medic al ing tablet (eight) Branch hours as needed for Nausea and Vomiting (N/V). dicyclomine 2019-0 Yes [id number] 20mg Take 1 Univers (BENTYL) 20 8-13 tablet by ity of mg tablet 00:00: mouth 3 [place] 00 (three) Medical times Branch daily as needed for Abdominal pain. ondansetron 2019-0 Yes [id number] 4mg Take 1 Univers (ZOFRAN 8-13 tablet by ity of ODT) 4 mg 00:00: mouth [place] disintegrat 00 every 8 Medic al ing tablet (eight) Branch hours as needed for Nausea and Vomiting (N/V). dicyclomine 2019-0 Yes [id number] 20mg Take 1 Univers (BENTYL) 20 8-13 tablet by ity of mg tablet 00:00: mouth 3 [place] 00 (three) Medical times Branch daily as needed for Abdominal pain. ondansetron 2018-0 Yes [id number] 4mg Take 1 Univers (ZOFRAN 8-13 tablet by ity of ODT) 4 mg 00:00: mouth [place] disintegrat 00 every 8 Medic al ing tablet (eight) Branch hours as needed for Nausea and Vomiting (N/V). dicyclomine 2018- Yes [id number] 20mg Take 1 Univers (BENTYL) 20 8-13 tablet by ity of mg tablet 00:00: mouth 3 [place] 00 (three) Medical times Branch daily as needed for Abdominal pain. ondansetron Yes [id number] 4mg Take 1 Univers (ZOFRAN 8-13 tablet by ity of ODT) 4 mg 00:00: mouth [place] disintegrat 00 every 8 Medic al ing tablet (eight) Branch hours as needed for Nausea and Vomiting (N/V). dicyclomine Yes [id number] 20mg Take 1 Univers (BENTYL) 20 8-13 tablet by ity of mg tablet 00:00: mouth 3 [place] 00 (three) Medical times Branch daily as needed for Abdominal pain. ondansetron 2020- No [id number] 4mg Take 1 Univers (ZOFRAN 8-13 05-21 tablet by ity of ODT) 4 mg 00:00: 00:00 mouth [place] disintegrat 00 :00 every 8 Medic al ing tablet (eight) Branch hours as needed for Nausea and Vomiting (N/V). dicyclomine 2020- No [id number] 20mg Take 1 Univers (BENTYL) 20 8-13 05-21 tablet by it y of mg tablet 00:00: 00:00 mouth 3 [place] :[place] (three) Medical times Branch daily as needed for Abdominal pain. metoprolol Yes 50mg Take 50 mg U nivers succinate 702 by mouth 2 ity of XL (TOPROL 22:02: (two) [place] XL) 25 mg 32 times Medical 24 hr daily. Branch tablet diazePAM Yes 10mg Take 10 mg Uni vers (VALIUM) 10 02 by mouth 2 it y of mg tablet 22:02: (two) [place] 32 times Medical daily. Branch metoprolol Yes [...] it y of mg tablet 00:00: (two) [place] 00 times Medical daily. Branch busPIRone 2014-05 Yes 10mg Take 1 Tab Un jaqueline (BUSPAR) 10 2-14 by mouth 2 it y of mg tablet 00:00: (two) [place] 00 times Medical daily. Branch busPIRone 2014-05- No 10mg Take 1 Tab U nivers (BUSPAR) 10 2-14 06-20 by mouth 2 i ty of mg tablet 00:00: 00:00 (two) [place] 00 :00 times Medical daily. Branch clonazePAM [...] Time Observation Value Comments Source Systolic blood 2021-09-30 02:00:00 131 mm[Hg] Univer sity [facility] [place] [facility] Diastolic blood 2021-09-30 02:00:00 80 mm[Hg] [facility] Heart rate 2021-09-30 02:00:00 89 /min [facility] Respiratory rate 2021-09-30 02:00:00 15 /min [facility] Oxygen saturation in 2021-09-30 02:00:00 94 /min [facility] Arterial blood by [facility] Pulse oximetry Branch Body temperature 2021-09-30 01:22:00 36.72 Siobhan [facility] Body height 2021-09-30 01:22:00 170.2 cm [facility] [place] [facility] Body weight 2021-09-30 01:22:00 104.327 kg [facility] [place] [facility] BMI 2021-09-30 01:22:00 36.02 kg/m2 [facility] [place] [facility] Body temperature 2021-09-14 00:00:00 37.17 Siobhan [facility] [place] [facility] Systolic blood 2021-09-13 21:00:00 145 mm[Hg] Univer sity of pressure [place] [facility] Diastolic blood 2021-09-13 21:00:00 98 mm[Hg] Unive rsity of pressure [place] [facility] Heart rate 2021-09-13 21:00:00 75 /min [facility] [place] [facility] Respiratory rate 2021-09-13 21:00:00 15 /min [facility] [place] [facility] Oxygen saturation in 2021-09-13 21:00:00 96 /min University of Arterial blood by [employer] Pulse oximetry Branch Body weight 2021-09-13 11:00:00 104.463 kg [facility] [place] [facility] BMI 2021-09-13 11:00:00 36.07 kg/m2 [facility] [place] [facility] Body height 2021-09-12 16:00:00 170.2 cm [facility] [place] [facility] Systolic blood 2021-09-06 12:14:00 133 mm[Hg] Univer sity of pressure [place] [facility] Diastolic blood 2021-09-06 12:14:00 84 mm[Hg] Unive rsity of pressure [place] [facility] Heart rate 2021-09-06 12:14:00 78 /min [facility] [place] [facility] Body temperature 2021-09-06 12:14:00 36.11 Si[place]han [facility] [place] [facility] Respiratory rate 2021-09-06 12:14:00 17 /min [facility] [place] [facility] Oxygen saturation in 2021-09-06 12:14:00 96 /min University of Arterial blood by [employer] Pulse oximetry Branch Body height 2021-09-05 20:10:00 170.2 cm [facility] [place] [facility] Body weight 2021-09-05 20:10:00 99.791 kg [facility] [place] [facility] BMI 2021-09-05 20:10:00 34.46 kg/m2 [facility] [place] [facility] Systolic blood 2021-08-07 16:16:00 132 mm[Hg] Univer sity of [facility] [place] [facility] Diastolic blood 2021-08-07 16:16:00 86 mm[Hg] Unive rsity of pressure [place] [facility] Heart rate 2021-08-07 16:16:00 71 /min [facility] [place] [facility] Body temperature 2021-08-07 16:16:00 36.22 Siobhan [facility] [place] [facility] Respiratory rate 2021-08-07 16:16:00 18 /min [facility] [place] [facility] Oxygen saturation in 2021-08-07 16:16:00 94 /min University of Arterial blood by [facility]INGO Pulse oximetry Branch Body height 2021-08-06 20:45:00 170.2 cm [facility] [place] [facility] Body weight 2021-08-06 20:45:00 104.327 kg [facility] [place] [facility] BMI 2021-08-06 20:45:00 36.02 kg/m2 [facility] [place] [facility] WEIGHT 2021-07-15 23:46:00 100 kg WEIGHT 2021-07-15 23:46:00 100 kg Systolic blood 2021-06-05 18:40:00 149 mm[Hg] Univer sity of [facility] [place] [facility] Diastolic blood 2021-06-05 18:40:00 74 mm[Hg] Unive rsity of [facility] [place] [facility] Heart rate 2021-06-05 18:40:00 80 /min [facility] [place] [facility] Respiratory rate 2021-06-05 18:40:00 17 /min [facility] [place] [facility] Oxygen saturation in 2021-06-05 18:40:00 100 /min University of Arterial blood by [employer] Pulse oximetry Branch Body temperature 2021-06-05 15:05:00 36.11 Siobhan [facility] [place] [facility] Body height 2021-06-05 15:05:00 170.2 cm [facility] [place] [facility] Body weight 2021-06-05 15:05:00 99.338 kg [facility] [place] [facility] BMI 2021-06-05 15:05:00 34.30 kg/m2 [facility] [place] [facility] Systolic blood 2021-05-27 18:00:00 146 mm[Hg] Univer sity of pressure [place] [facility] Diastolic blood 2021-05-27 18:00:00 130 mm[Hg] Unive rsity of pressure [place] [facility] Heart rate 2021-05-27 18:00:00 85 /min [facility] [place] [facility] Oxygen saturation in 2021-05-27 18:00:00 97 /min [facility] Arterial blood by [place] [facility] Pulse oximetry Branch Respiratory rate 2021-05-27 17:52:00 18 /min [facility] [place] [facility] Body temperature 2021-05-27 15:53:00 35.78 [place]han [facility] [place] [facility] Body weight 2021-05-27 15:53:00 102.967 kg [facility] [place] [facility] BMI 2021-05-27 15:53:00 34.52 kg/m2 [facility] [place] [facility] Respiratory rate 2021-05-05 13:33:00 18 /min [facility] [place] [facility] Oxygen saturation in 2021-05-05 13:33:00 97 /min University of Arterial blood by [place] [employer] Pulse oximetry Branch Systolic blood 2021-05-05 12:44:00 155 mm[Hg] Univer sity of pressure [place] [facility] Diastolic blood 2021-05-05 12:44:00 75 mm[Hg] Unive rsity of [facility] [place] [facility] Heart rate 2021-05-05 12:44:00 59 /min [facility] [place] [facility] Body temperature 2021-05-05 12:44:00 36.5 Siobhan [facility] [place] [facility] Body height 2021-05-05 06:46:00 172.7 cm [facility] [place] [facility] Body weight 2021-05-05 06:46:00 102.967 kg [facility] [place] [facility] BMI 2021-05-05 06:46:00 34.52 kg/m2 [facility] [place] [facility] Systolic blood 2021-03-31 14:51:24 151 mm[Hg] Univer sity of pressure [place] [facility] Diastolic blood 2021-03-31 14:51:24 98 mm[Hg] Unive rsity of pressure [place] [facility] Heart rate 2021-03-31 14:51:24 92 /min [facility] [place] [facility] Body temperature 2021-03-31 14:51:24 36.67 Siobhan [facility] [place] [facility] Respiratory rate 2021-03-31 14:51:24 18 /min [facility] [place] [facility] Body height 2021-03-31 14:35:00 170.2 cm [facility] [place] [facility] Body weight 2021-03-31 14:35:00 99.791 kg [facility] [place] [facility] BMI 2021-03-31 14:35:00 34.46 kg/m2 [facility] [place] [facility] Oxygen saturation in 2021-03-31 14:35:00 99 /min [facility] Arterial blood by [facility] Pulse oximetry Branch Systolic blood 2021-02-18 16:00:00 110 mm[Hg] Univer sity of pressure [place] [facility] Diastolic blood 2021-02-18 16:00:00 77 mm[Hg] Unive rsity of pressure [place] [facility] Heart rate 2021-02-18 16:00:00 61 /min [facility] [place] [facility] Respiratory rate 2021-02-18 16:00:00 15 /min [facility] [place] [facility] Oxygen saturation in 2021-02-18 16:00:00 98 /min [facility] Arterial blood by [facility] Pulse oximetry Branch Body temperature 2021-02-18 13:14:00 36.33 [place]han [facility] [place] [facility] Body weight 2021-02-18 13:14:00 99.791 kg [facility] [place] [facility] BMI 2021-02-18 13:14:00 34.45 kg/m2 [facility] [place] [facility] Systolic blood 2021-01-24 13:26:00 137 mm[Hg] Univer sity of [facility] [place] [facility] Diastolic blood 2021-01-24 13:26:00 83 mm[Hg] Unive rsity of [facility] [place] [facility] Heart rate 2021-01-24 13:26:00 96 /min [facility] [place] [facility] Body temperature 2021-01-24 13:26:00 37.39 Siobhan [facility] [place] [facility] Respiratory rate 2021-01-24 13:26:00 20 /min [facility] [place] [facility] Body weight 2021-01-24 13:26:00 99.791 kg [facility] [place] [facility] BMI 2021-01-24 13:26:00 34.45 kg/m2 [facility] [place] [facility] Oxygen saturation in 2021-01-24 13:26:00 95 /min [facility] Arterial blood by [facility] Pulse oximetry Branch Systolic blood 2020-12-07 15:00:00 121 mm[Hg] Univer sity of [facility] [place] [facility] Diastolic blood 2020-12-07 15:00:00 86 mm[Hg] Unive rsity of [facility] [place] [facility] Heart rate 2020-12-07 15:00:00 79 /min [facility] [place] [facility] Body temperature 2020-12-07 15:00:00 36.22 Siobhan [facility] [place] [facility] Respiratory rate 2020-12-07 15:00:00 17 /min [facility] [place] [facility] Oxygen saturation in 2020-12-07 15:00:00 94 /min [facility] Arterial blood by [facility] Pulse oximetry Branch Body weight 2020-12-07 13:31:00 94.348 kg [facility] [place] [facility] BMI 2020-12-07 13:31:00 32.57 kg/m2 [facility] [place] [facility] Systolic blood 2020-10-28 12:21:00 150 mm[Hg] Univer sity of [facility] [place] [facility] Diastolic blood 2020-10-28 12:21:00 78 mm[Hg] Unive rsity of [facility] [place] [facility] Heart rate 2020-10-28 12:21:00 73 /min [facility] [place] [facility] Body temperature 2020-10-28 12:21:00 36.56 Siobhan [facility] [place] [facility] Respiratory rate 2020-10-28 12:21:00 11 /min [facility] Oxygen saturation in 2020-10-28 12:21:00 98 /min [facility] by [facility] Pulse oximetry Branch Body weight 2020-10-28 09:00:00 94.666 kg [facility] BMI 2020-10-28 09:00:00 32.68 kg/m2 [facility] Body height 2020-10-25 13:00:00 170.2 cm [facility] Systolic blood 2020-07-29 00:50:00 165 mm[Hg] [facility] Diastolic blood 2020-07-29 00:50:00 103 mm[Hg] [facility] Heart rate 2020-07-29 00:50:00 100 /min [facility] Respiratory rate 2020-07-29 00:50:00 20 /min [facility] Oxygen saturation in 2020-07-29 00:50:00 99 /min [facility] [employer] kofi Pulse oximetry Branch Body temperature 2020-07-28 18:16:26 36.5 Siobhan [facility] Body height 2020-07-28 18:14:00 170.2 cm [facility] Body weight 2020-07-28 18:14:00 83.915 kg [facility] BMI 2020-07-28 18:14:00 28.98 kg/m2 [facility] Systolic blood 2020-07-29 00:50:00 165 mm[Hg] [facility] Diastolic blood 2020-07-29 00:50:00 103 mm[Hg] [facility] Heart rate 2020-07-29 00:50:00 100 /min [facility] Respiratory rate 2020-07-29 00:50:00 20 /min [facility] Oxygen saturation in 2020-07-29 00:50:00 99 /min [facility] by [employer] kofi Pulse oximetry Branch Body temperature 2020-07-28 18:16:26 36.5 Siobhan [facility] Body height 2020-07-28 18:14:00 170.2 cm [facility] Body weight 2020-07-28 18:14:00 83.915 kg [facility] BMI 2020-07-28 18:14:00 28.98 kg/m2 [facility] Systolic blood 2020-06-30 15:00:00 145 mm[Hg] [facility] Diastolic blood 2020-06-30 15:00:00 82 mm[Hg] [facility] Heart rate 2020-06-30 15:00:00 88 /min [facility] Respiratory rate 2020-06-30 15:00:00 15 /min [facility] Oxygen saturation in 2020-06-30 15:00:00 97 /min [facility] Pulse oximetry Branch Body temperature 2020-06-30 11:30:00 36.17 Siobhan [facility] Body height 2020-06-30 11:30:00 170.2 cm [facility] Body weight 2020-06-30 11:30:00 83.915 kg [facility] BMI 2020-06-30 11:30:00 28.98 kg/m2 [facility] Systolic blood 2020-06-30 15:00:00 145 mm[Hg] [facility] Diastolic blood 2020-06-30 15:00:00 82 mm[Hg] [facility] Heart rate 2020-06-30 15:00:00 88 /min [facility] Respiratory rate 2020-06-30 15:00:00 15 /min [facility] Oxygen saturation in 2020-06-30 15:00:00 97 /min [facility] Pulse oximetry Branch Body temperature 2020-06-30 11:30:00 36.17 Siobhan [facility] Body height 2020-06-30 11:30:00 170.2 cm [facility] Body weight 2020-06-30 11:30:00 83.915 kg [facility] BMI 2020-06-30 11:30:00 28.98 kg/m2 [facility] Systolic blood 2020-06-23 21:33:48 151 mm[Hg] [facility] Diastolic blood 2020-06-23 21:33:48 98 mm[Hg] [facility] Heart rate 2020-06-23 21:33:48 98 /min [facility] Respiratory rate 2020-06-23 21:33:48 16 /min [facility] Oxygen saturation in 2020-06-23 21:33:48 97 /min [facility] [employer] kofi Pulse oximetry Branch Body temperature 2020-06-23 19:45:00 37 Siobhan [facility] Body height 2020-06-23 19:45:00 170.2 cm [facility] Body weight 2020-06-23 19:45:00 83.915 kg [facility] BMI 2020-06-23 19:45:00 28.98 kg/m2 [facility] Systolic blood 2020-06-23 21:33:48 151 mm[Hg] [facility] Diastolic blood 2020-06-23 21:33:48 98 mm[Hg] [facility] Heart rate 2020-06-23 21:33:48 98 /min [facility] Respiratory rate 2020-06-23 21:33:48 16 /min [facility] Oxygen saturation in 2020-06-23 21:33:48 97 /min [facility] by [place] [employer] kofi Pulse oximetry Branch Body temperature 2020-06-23 19:45:00 37 Siobhan [facility] Body height 2020-06-23 19:45:00 170.2 cm [facility] Body weight 2020-06-23 19:45:00 83.915 kg [facility] BMI 2020-06-23 19:45:00 28.98 kg/m2 [facility] Systolic blood 2019-11-10 05:41:00 145 mm[Hg] [facility] Diastolic blood 2019-11-10 05:41:00 88 mm[Hg] [facility] Heart rate 2019-11-10 05:41:00 68 /min [facility] Respiratory rate 2019-11-10 05:41:00 18 /min [facility] Oxygen saturation in 2019-11-10 05:41:00 100 /min [facility] [employer] [facility] Pulse oximetry Branch Body temperature 2019-11-10 04:15:00 36.61 Siobhan [facility] Body height 2019-11-10 04:15:00 170.2 cm [facility] Body weight 2019-11-10 04:15:00 86.183 kg [facility] BMI 2019-11-10 04:15:00 29.76 kg/m2 [facility] Systolic blood 2019-11-10 05:41:00 145 mm[Hg] [facility] Diastolic blood 2019-11-10 05:41:00 88 mm[Hg] [facility] Heart rate 2019-11-10 05:41:00 68 /min [facility] Respiratory rate 2019-11-10 05:41:00 18 /min [facility] Oxygen saturation in 2019-11-10 05:41:00 100 /min [facility] by [place] [employer] [facility] Pulse oximetry Branch Body temperature 2019-11-10 04:15:00 36.61 Siobhan [facility] Body height 2019-11-10 04:15:00 170.2 cm [facility] Body weight 2019-11-10 04:15:00 86.183 kg [facility] BMI 2019-11-10 04:15:00 29.76 kg/m2 [facility] Systolic blood 2019-09-29 16:30:00 117 mm[Hg] [facility] Diastolic blood 2019-09-29 16:30:00 78 mm[Hg] [facility] Heart rate 2019-09-29 16:30:00 56 /min [facility] Respiratory rate 2019-09-29 16:30:00 18 /min [facility] Oxygen saturation in 2019-09-29 16:30:00 98 /min [facility] [place] [facility] P[facility] Body temperature 2019-09-29 14:39:00 36.56 Siobhan [facility] Body height 2019-09-29 14:39:00 170.2 cm [facility] Body weight 2019-09-29 14:39:00 86.183 kg [facility] BMI 2019-09-29 14:39:00 29.76 kg/m2 [facility] Systolic blood 2019-09-29 16:30:00 117 mm[Hg] [facility] Diastolic blood 2019-09-29 16:30:00 78 mm[Hg] [facility] Heart rate 2019-09-29 16:30:00 56 /min [facility] Respiratory rate 2019-09-29 16:30:00 18 /min [facility] Oxygen saturation in 2019-09-29 16:30:00 98 /min [facility] by [facility] kofi Pulse oximetry Branch Body temperature 2019-09-29 14:39:00 36.56 Siobhan [facility] Body height 2019-09-29 14:39:00 170.2 cm [facility] Body weight 2019-09-29 14:39:00 86.183 kg [facility] BMI 2019-09-29 14:39:00 29.76 kg/m2 [facility] Systolic blood 2019-06-16 13:09:00 153 mm[Hg] [facility] Diastolic blood 2019-06-16 13:09:00 82 mm[Hg] [facility] Respiratory rate 2019-06-16 13:09:00 18 /min [facility] Body height 2019-06-16 13:09:00 170.2 cm [facility] Body weight 2019-06-16 13:09:00 88.451 kg [facility] BMI 2019-06-16 13:09:00 30.54 kg/m2 [facility] Oxygen saturation in 2019-06-16 13:09:00 98 /min [facility] by [facility] kofi Pulse oximetry Branch Systolic blood 2019-06-16 13:09:00 153 mm[Hg] [facility] Diastolic blood 2019-06-16 13:09:00 82 mm[Hg] [facility] Respiratory rate 2019-06-16 13:09:00 18 /min [facility] Body height 2019-06-16 13:09:00 170.2 cm [facility] Body weight 2019-06-16 13:09:00 88.451 kg [facility] BMI 2019-06-16 13:09:00 30.54 kg/m2 [facility] Oxygen saturation in 2019-06-16 13:09:00 98 /min [facility] kofi Pulse oxim[facility] Branch Systolic blood 2019-06-15 17:26:00 190 mm[Hg] [facility] Diastolic blood 2019-06-15 17:26:00 122 mm[Hg] [facility] Heart rate 2019-06-15 17:26:00 97 /min [facility] Body temperature 2019-06-15 17:26:00 36.56 Siobhan [facility] Respiratory rate 2019-06-15 17:26:00 16 /min [facility] Body weight 2019-06-15 17:26:00 90.266 kg [facility] BMI 2019-06-15 17:26:00 31.17 kg/m2 [facility] Oxygen saturation in 2019-06-15 17:26:00 97 /min [facility] by [facility] Pulse oximetry Branch Systolic blood 2019-06-15 17:26:00 190 mm[Hg] [facility] Diastolic blood 2019-06-15 17:26:00 122 mm[Hg] [facility] Heart rate 2019-06-15 17:26:00 97 /min [facility] Body temperature 2019-06-15 17:26:00 36.56 Siobhan [facility] Respiratory rate 2019-06-15 17:26:00 16 /min [facility] Body weight 2019-06-15 17:26:00 90.266 kg [facility] BMI 2019-06-15 17:26:00 31.17 kg/m2 [facility] Oxygen saturation in 2019-06-15 17:26:00 97 /min [facility] by [facility] kofi Pulse oximetry Branch Systolic blood 2019 16:22:00 116 mm[Hg] [facility] Diastolic blood 2019 16:22:00 78 mm[Hg] [facility] Heart rate 2019 16:22:00 84 /min [facility] Body temperature 2019 16:22:00 37 Siobhan [facility] Respiratory rate 2019 16:22:00 17 /min [facility] Body height 2019 16:22:00 170.2 cm [facility] Body weight 2019 16:22:00 90.357 kg [facility] BMI 2019 16:22:00 31.20 kg/m2 [facility] Oxygen saturation in 2019 16:22:00 96 /min [facility] by [employer] Pulse oxim[facility] Branch Systolic blood 2019 16:22:00 116 mm[Hg] [facility] Diastolic blood 2019 16:22:00 78 mm[Hg] [facility] Heart rate 2019 16:22:00 84 /min [facility] Body temperature 2019 16:22:00 37 Siobhan [facility] Respiratory rate 2019 16:22:00 17 /min [facility] Body height 2019 16:22:00 170.2 cm [facility] Body weight 2019 16:22:00 90.357 kg [facility] BMI 2019 16:22:00 31.20 kg/m2 [facility] Oxygen saturation in 2019 16:22:00 96 /min [facility] by [employer] [facility] Pulse oximetry Branch Heart rate 2019-01-25 00:00:00 79 /min [facility] Respiratory rate 2019-01-25 00:00:00 15 /min [facility] Systolic blood 2019-01-24 23:00:00 122 mm[Hg] [facility] Diastolic blood 2019-01-24 23:00:00 68 mm[Hg] [facility] Oxygen saturation in 2019-01-24 23:00:00 93 /min [facility] Pulse oximetry Branch Body temperature 2019-01-24 20:15:00 36.94 Siobhan [facility] Body weight 2019-01-24 20:15:00 86.183 kg [facility] BMI 2019-01-24 20:15:00 28.89 kg/m2 [facility] Heart rate 2019-01-25 00:00:00 79 /min [facility] Respiratory rate 2019-01-25 00:00:00 15 /min [facility] Systolic blood 2019-01-24 23:00:00 122 mm[Hg] [facility] Diastolic blood 2019-01-24 23:00:00 68 mm[Hg] [facility] Oxygen saturation in 2019-01-24 23:00:00 93 /min [facility] by [facility] Pulse oximetry Branch Body temperature 2019-01-24 20:15:00 36.94 Siobhan [facility] Body weight 2019-01-24 20:15:00 86.183 kg [facility] BMI 2019-01-24 20:15:00 28.89 kg/m2 [facility] Systolic blood 2018-12-22 00:30:00 142 mm[Hg] [facility] Diastolic blood 2018-12-22 00:30:00 90 mm[Hg] [facility] Heart rate 2018-12-22 00:30:00 86 /min [facility] Respiratory rate 2018-12-22 00:30:00 18 /min [facility] Oxygen saturation in 2018-12-22 00:30:00 97 /min [facility] Pulse oximetry Branch Body temperature 2018-12-21 21:07:00 37.11 Siobhan [facility] Body weight 2018-12-21 21:07:00 86.183 kg [facility] BMI 2018-12-21 21:07:00 28.89 kg/m2 [facility] Systolic blood 2018-12-22 00:30:00 142 mm[Hg] [facility] Diastolic blood 2018-12-22 00:30:00 90 mm[Hg] [facility] of pressure [facility] Heart rate 2018-12-22 00:30:00 86 /min [facility] Respiratory rate 2018-12-22 00:30:00 18 /min [facility] in 2018-12-22 00:30:00 97 /min [facility] Arterial blood by [facility] Pulse oximetry [place] Body temperature 2018-12-21 21:07:00 37.11 Siobhan [facility] weight 2018-12-21 21:07:00 86.183 kg [facility] BMI 2018-12-21 21:07:00 28.89 kg/m2 [facility] Body weight 2020-02-01 12:04:00 85.548 kg [facility] BMI 2020-02-01 12:04:00 29.54 kg/m2 [facility] Systolic blood 2020-02-01 11:09:39 138 mm[Hg] [facility] pressure Diastolic blood 2020-02-01 11:09:39 78 mm[Hg] [facility] pressure Heart rate 2020-02-01 11:09:39 62 /min [facility] Body temperature 2020-02-01 11:09:39 36.5 Siobhan [facility] Respiratory rate 2020-02-01 11:09:39 18 /min [facility] Oxygen saturation in 2020-02-01 11:09:39 98 /min [facility] Arterial blood by Pulse oximetry Body height 2020-01-28 19:00:00 170.2 cm [facility] Procedures Procedure Date / Time Performing Clinician Source Performed EKG-12 LEAD 2021-09-30 02:44:04 Liliana Morris [facility] CREATINE KINASE 2021-09-30 01:37:00 [facility] MAGNESIUM 2021-09-30 01:37:00 [facility] TROPONIN I 2021-09-30 01:37:00 Bel[place]ica [facility] COMP. METABOLIC PANEL 2021-09-30 01:37:00 Liliana Morris [facility] ([id number]) Medical Branch ETHANOL 2021-09-30 01:37:00 Liliana Morris [facility] CBC WITH DIFF 2021-09-30 01:37:00 [place] [facility]iliam [facility] CONSENT/REFUSAL FOR 2021-09-30 01:16:32 [facility] CT ANGIOGRAPHY CORONARIES 2021-09-13 18:33:48 Johan Porras [facility] WITHOUT CARDIAC CALCIUM [facility] SCORING TROPONIN I 2021-09-13 01:01:00 Jon Acevedo [facility] XR CHEST 1 VW 2021-09-12 13:33:24 Singer [facility] HB ECG ROUTINE & RHYTHM 2021-09-12 13:25:38 Johan Porras [facility] STRIP [facility] LIPASE 2021-09-12 13:24:00 Singer [facility] MAGNESIUM 2021-09-12 13:24:00 Singer [facility] TROPONIN I 2021-09-12 13:24:00 Singer [facility] COMP. METABOLIC PANEL 2021-09-12 13:24:00 Johan Porras [facility] ([id number]) [facility] CBC WITH DIFF 2021-09-12 13:24:00 Singer [facility] N-TERMINAL PRO-BNP 2021-09-12 13:24:00 Johan Porras [facility] CONSENT/REFUSAL FOR 2021-09-12 13:14:34 Doctor [facility]igned, [facility] Name [facility] MAGNESIUM 2021-09-06 09:16:00 [facility] TROPONIN I 2021-09-06 09:16:00 [facility] BASIC METABOLIC PANEL 2021-09-06 09:16:00 Alvin Baca [facility] (NA, K, CL, CO2, GLUCOSE, Medica l Branch BUN, CREATININE, CA) TROPONIN I 2021-09-05 23:16:00 Alvin Baca [facility] TRANSTHORACIC ECHO (TTE) 2021-09-05 20:10:39 Alvin Baca [facility] COMPLETE W/ CONTRAST Medical [facility] URINE DRUG (IMMUNOASSAY) 2021-09-05 18:40:00 Alvin Baca [facility] - COMPREHENSIVE DRUG Medical [facility] SCREEN DUPLEX VENOUS LEGS 2021-09-05 17:06:[address] [facility] BILATERAL - BY VASCULAR [facility] LAB XR CHEST 2 VW 2021-09-05 15:53:16 Lynn Trinidad [facility] URINALYSIS 2021-09-05 15:41:00 Lynn Trinidad [facility] LIPASE 2021-09-05 15:31:00 Lynn Trinidad [facility] TROPONIN I 2021-09-05 15:31:00 Lynn Trinidad [facility] COMP. METABOLIC PANEL 2021-09-05 15:31:00 Lynn Trinidad [facility] ([id number]) [facility] LIPID PANEL ([id number])(TOTAL 2021-09-05 15:31:00 Jaspreet Goff K.H Julia [facility] CHOLESTEROL, [facility] TRIGLYCERIDES, HDL) CBC WITH DIFF 2021-09-05 15:31:00 Lynn Trinidad [facility] GLYCOSYLATED HEMOGLOBIN 2021-09-05 15:31:00 Jaspreet Goff K.HJulia [facility] (A1C) [facility] D-DIMER 2021-09-05 15:31:00 Lynn Trinidad [facility] N-TERMINAL PRO-BNP 2021-09-05 15:31:00 Lynn Trinidad [facility] HB ECG ROUTINE & RHYTHM 2021-09-05 15:04:46 yLnn Trinidad [facility] STRIP [facility] CONSENT/REFUSAL FOR 2021-09-05 14:57:31 Doctor Unassigned, [facility]REATMENT Name [facility] TRANSTHORACIC ECHO (TTE) 2021-08-06 20:45:28 Jaspreet Goff.HJulia [facility] COMPLETE W/ CONTRAST Medical [facility] CT CHEST PULMONARY 2021-08-06 14:34:41 Raya Jean [facility] ANGIOGRAM Medical Branch MAGNESIUM 2021-08-06 09:38:00 [facility] 2021-08-06 09:38:00 Jaspreet Goff [facility] BASIC METABOLIC PANEL 2021-08-06 09:38:00 Jon Acevedo [facility] (NA, K, CL, CO2, GLUCOSE, Medica l Branch BUN, CREATININE, CA) LIPID PANEL ([id number])(TOTAL 2021-08-06 09:38:00 Jaspreet Goff [facility] CHOLESTEROL, [facility] TRIGLYCERIDES, HDL) CBC WITH DIFF 2021-08-06 09:38:00 Kristina [facility] D-DIMER 2021-08-06 00:53:00 Kristina [facility] TROPONIN I 2021-08-06 00:52:00 Kristina [facility] DUPLEX VENOUS LEGS 2021-08-05 20:15:00 Jon Acevedo [facility] BILATERAL - BY VASCULAR Medical Branch LAB PHOSPHORUS 2021-08-05 17:35:00 Kristina Jon [facility] MAGNESIUM 2021-08-05 17:35:00 Raya Sue [facility] TROPONIN I 2021-08-05 17:35:00 Raya Sue [facility] COMP. METABOLIC PANEL 2021-08-05 17:35:00 Raya Sue [facility] ([id number]) Medical Branch CBC WITH DIFF 2021-08-05 17:35:00 Raya Sue [facility] N-TERMINAL PRO-BNP 2021-08-05 17:35:00 Raya Sue [facility] Medical [place] COVID-19 (ID NOW RAPID 2021-08-05 17:35:00 Raya Sue [facility] TESTING) Medical Branch LAB ONLY COVID 2021-08-05 17:35:00 Raya Sue [facility] INTERPRETATION [facility] XR CHEST 1 VW 2021-08-05 17:03:55 Raya Sue [facility] HB ECG ROUTINE & RHYTHM 2021-08-05 15:57:49 Raya Sue [facility] STRIP [facility] CONSENT/REFUSAL FOR 2021-08-05 15:06:08 Doctor Unassigned, No Un [facility] DIAGNOSIS AND TREATMENT Name Medical Branch TROPONIN I 2021-06-05 17:30:00 Jennifer Shea [facility] XR CHEST 1 VW 2021-06-05 15:27:49 Jennifer Shea [facility] LIPASE 2021-06-05 15:11:00 Jennifer Shea [facility] TROPONIN I 2021-06-05 15:11:00 Jennifer Shea [facility] COMP. METABOLIC PANEL 2021-06-05 15:11:00 Jennifer Shea [facility] ([id number]) [facility] CBC WITH DIFF 2021-06-05 15:11:00 Shabbir [facility] PROTHROMBIN TIME / INR 2021-06-05 15:11:00 Jennifer [facility] ACTIVATED PARTIAL 2021-06-05 15:11:00 Shabbir [facility] COVID-19 (ID NOW RAPID 2021-06-05 15:11:00 Jennifer Shea [facility] TESTING) Medical Branch XR CHEST 1 VW 2021-05-27 16:27:27 Jennifer Shea [facility] LIPASE 2021-05-27 15:59:00 Jennifer Shea [facility] TROPONIN I 2021-05-27 15:59:00 Jennifer Shea [facility] COMP. METABOLIC PANEL 2021-05-27 15:59:00 Jennifer Shea [facility] ([id number]) [facility] CBC WITH DIFF 2021-05-27 15:59:00 Shabbir Jennifer [facility] PROTHROMBIN TIME / INR 2021-05-27 15:59:00 Jennifer [facility] ACTIVATED PARTIAL 2021-05-27 15:59:00 Shabbir [facility] URINALYSIS 2021-05-27 15:59:00 Shabbir [facility] COVID-19 (ID NOW RAPID 2021-05-27 15:59:00 Jennifer Shea [facility] TESTING) Medical Branch URINE DRUG (IMMUNOASSAY) 2021-05-27 15:59:00 Jennifer Shea [facility] - COMPREHENSIVE DRUG Medical Bra nch SCREEN W/O REFLEX NOTICE OF PRIVACY 2021-05-27 15:50:40 Doctor Unassigned, No Univ [facility] PRACTICES Name Medical Branch CONSENT/REFUSAL FOR 2021-05-27 15:50:22 Doctor Unassigned, No Un [facility] DIAGNOSIS AND TREATMENT Name [facility] Branch TROPONIN I 2021-05-05 12:18:00 Laura Pedraza [facility] CREATINE KINASE 2021-05-05 09:25:00 John paco [facility] TROPONIN I 2021-05-05 09:25:00 [facility] PROCALCITONIN 2021-05-05 09:25:00 Laura Pedraza [facility] PHOSPHORUS 2021-05-05 02:50:00 John paco [facility] URIC ACID 2021-05-05 02:50:00 John paco [facility] MAGNESIUM 2021-05-05 02:50:00 John paco [facility] TROPONIN I 2021-05-05 02:50:00 Shelley Shahid [facility] THYROID STIMULATING 2021-05-05 02:50:[address] [facility] HORMONE [facility] LIPID PANEL (47517)(TOTAL 2021-05-05 02:50:00 Laura Pedraza [facility] TRIGLY[facility]ER[facility], HDL) ETHANOL 2021-05-05 02:50:00 Laura Pedraza [facility] N-TERMINAL PRO-BNP 2021-05-05 02:50:00 Laura Pedraza [facility] XR CHEST 1 VW 2021-05-05 00:46:11 Ciera Seymour [facility] LIPASE 2021-05-05 00:37:00 Ciera Seymour [facility] TROPONIN I 2021-05-05 00:37:00 Ciera Seymour [facility] COMP. METABOLIC PANEL 2021-05-05 00:37:00 Ciera Seymour [facility] ([id number]) Medical Branch CBC WITH DIFF 2021-05-05 00:37:00 Ciera Seymour [facility] GLYCOSYLATED HEMOGLOBIN 2021-05-05 00:37:00 Laura Pedraza [facility] (A1C) Medical Branch PROTHROMBIN TIME / INR 2021-05-05 00:37:00 Ciera Seymour [facility] D-DIMER 2021-05-05 00:37:00 Shelley Shahid [facility] ACTIVATED PARTIAL 2021-05-05 00:37:00 Ciera Seymour [facility] COVID-19 (ID NOW RAPID 2021-05-05 00:37:00 Ciera Seymour [facility] TESTING) Medical Branch XR HAND 3+ VW RIGHT 2021-03-31 14:51:57 Ciera [facility] CONSENT/REFUSAL FOR 2021-03-31 14:35:47 Doctor Unassigned, No [facility] DIAGNOSIS AND TREATMENT Name Medical Branch XR CHEST 1 VW 2021-02-18 13:49:48 Singer [facility] MAGNESIUM 2021-02-18 13:35:00 Singer [facility] TROPONIN I 2021-02-18 13:35:00 Singer [facility] COMP. METABOLIC PANEL 2021-02-18 13:35:00 Johan Porras [facility] ([id number]) [facility] Branch LIPID PANEL ([id number])(TOTAL 2021-02-18 13:35:00 Johan Porras [facility] CHOLESTEROL, [facility] Branch TRIGLYCERIDES, HDL) CBC WITH DIFF 2021-02-18 13:35:00 Singer [facility] D-DIMER 2021-02-18 13:35:00 Singer [facility] ADC,CLC OR LCC ONLY - 2021-02-18 13:35:00 Johan Porras [facility] INFLUENZA A & B DIRECT Medical B ranch ANTIGEN N-TERMINAL PRO-BNP 2021-02-18 13:35:00 Johan Porras [facility] Medical Branch COVID-19 (ID NOW RAPID 2021-02-18 13:35:00 Johan Porras [facility] TESTING) Medical Branch CONSENT/REFUSAL FOR 2021-02-18 13:07:47 Doctor Unassigned, No [facility]RE[facility] Name Medical Branch XR CHEST 1 VW 2021-01-24 14:27:39 Singer [facility] COMP. METABOLIC PANEL 2021-01-24 14:22:00 Singer [facility] ([id number]) Medical Branch CBC WITH DIFF 2021-01-24 14:22:00 Singer [facility] URINALYSIS 2021-01-24 14:22:00 Singer [facility] COVID-19 (ID NOW RAPID 2021-01-24 13:30:00 Singer [facility] TESTING) Medical Branch NOTICE OF PRIVACY 2021-01-24 13:21:27 Doctor Unassigned, No Univ [facility] PRACTICES Name Medical Branch CONSENT/REFUSAL FOR 2021-01-24 13:20:24 Doctor Unassigned, No [facility] [place] [facility] Name Medical Branch LIPASE 2020-12-07 13:44:00 Jennifer Shea [facility] COMP. METABOLIC PANEL 2020-12-07 13:44:00 Jennifer Shea [facility] ([id number]) Medical Branch CBC WITH DIFF 2020-12-07 13:44:00 Jennifer Shea [facility] URINALYSIS 2020-12-07 13:44:00 Jennifer Shea [facility] ADC, CLC OR LCC ONLY - 2020-12-07 13:44:00 Jennifer Shea [facility] RSV Medical Branch COVID-19 (ID NOW RAPID 2020-12-07 13:44:00 Jennifer Shea [facility] TESTING) Medical Branch URINE DRUG (IMMUNOASSAY) 2020-12-07 13:44:00 Jennifer Shea [facility] DRUG Medical [facility] SCREEN W/O REFLEX CONSENT/REFUSAL FOR 2020-12-07 13:20:39 Doctor Unassigned, No Un [facility] DIAGNOSIS AND TREATMENT Name Medical Branch COMP. METABOLIC PANEL 2020-10-26 09:48:00 JohnLaura [facility] ([id number]) Medical Branch MAGNESIUM 2020-10-25 14:14:00 [facility] BASIC METABOLIC PANEL 2020-10-25 14:14:00 Alvin aBca [facility] (NA, K, CL, CO2, GLUCOSE, Medica l Branch BUN, CREATININE, CA) US ABDOMEN COMPLETE 2020-10-24 23:47:12 Alvin Baca [facility] TRANSTHORACIC ECHO (TTE) 2020-10-24 20:59:43 Alvin Baca [facility] COMPLETE W/ CONTRAST Medical [facility] TROPONIN I 2020-10-24 16:13:00 Alvin Baca [facility] HB ECG ROUTINE & RHYTHM 2020-10-24 16:02:52 Alvin Baca [facility] STRIP [facility] Branch CRITICAL CARE 2020-10-24 13:45:35 Jennifer Shea [facility] FREE T4 2020-10-24 12:50:00 Jennifer Shea [facility] COVID-19 (ID NOW RAPID 2020-10-24 12:43:00 Jennifer Shea [facility] TESTING) Medical Branch LAB ONLY COVID 2020-10-24 12:43:00 Jennifer Shea [facility] INTERPRETATION [facility] URINE DRUG (IMMUNOASSAY) 2020-10-24 11:52:00 Johan Porras [facility] DRUG Medical [facility] SCREEN URINALYSIS 2020-10-24 11:52:00 Singer Johan [facility] CT CHEST PULMONARY 2020-10-24 11:46:10 Johan Porras [facility] ANGIOGRAM Medical Branch POCT GLUCOSE (AUTOMATED) 2020-10-24 11:19:00 Johan Porras [facility] CREATINE KINASE 2020-10-24 11:18:00 Jennifer Shea [facility] LIPASE 2020-10-24 11:18:00 Jennifer Shea [facility] MAGNESIUM 2020-10-24 11:18:00 Alvin Baca [facility] TROPONIN I 2020-10-24 11:18:00 Singer [facility] THYROID STIMULATING 2020-10-24 11:18:00 Jennifer Shea [facility] COMP. METABOLIC PANEL 2020-10-24 11:18:00 [facility] ([id number]) Medical Branch ETHANOL 2020-10-24 11:18:00 Shabbir [facility] CBC WITH DIFF 2020-10-24 11:18:00 Singer [facility] PROTHROMBIN TIME / INR 2020-10-24 11:18:00 Singer [facility] D-DIMER 2020-10-24 11:18:00 Singer [facility] ACTIVATED PARTIAL 2020-10-24 11:18:00 Singer [facility] N-TERMINAL PRO-BNP 2020-10-24 11:18:00 Johan Porras [facility] HB ECG ROUTINE & RHYTHM 2020-10-24 11:12:38 Singer [facility] EMERGENCY DEPARTMENT 2020-10-24 05:01:00 Doctor Unassigned, No U [facility] DOCUMENTS Name Medical Branch URINALYSIS 2020-07-28 18:29:00 Jennifer Shea [facility] ADC / LCC - DRUG SCREEN 2020-07-28 18:29:00 Jennifer Shea [facility] TRIAGE [facility] TROPONIN I 2020-07-28 18:23:00 Jennifer Shea [facility] FREE T4 2020-07-28 18:23:00 Shabbir [facility] THYROID STIMULATING 2020-07-28 18:23:00 Jennifer Shea [facility] HEPATIC FUNCTION PANEL 2020-07-28 18:23:00 [facility] ([id number]) (ALB,T.PRO,BIL Medical Branch T,BU/BC,ALT,AST,ALK PHOS) BASIC METABOLIC PANEL 2020-07-28 18:23:00 Jennifer Shea [facility] (NA, K, CL, CO2, GLUCOSE, Medica l Branch BUN, CREATININE, CA) CBC WITH DIFF 2020-07-28 18:23:00 Shabbir [facility] PROTHROMBIN TIME / INR 2020-07-28 18:23:00 Jennifer [facility] ACTIVATED PARTIAL 2020-07-28 18:23:00 Shabbir [facility] THRMPLAS [place] [facility] N-TERMINAL PRO-BNP 2020-07-28 18:23:00 Jennifer Shea [facility] COVID-19 (ID NOW RAPID 2020-07-28 18:23:00 Jennifer Shea [facility] TESTING) Medical Branch HB ECG ROUTINE & RHYTHM 2020-07-28 18:15:15 Jennifer Shea [facility] CONSENT/REFUSAL FOR 2020-07-28 18:07:43 [facility]igned, [facility] Name Medical [place] TROPONIN I 2020-06-30 15:28:00 Shabbir [facility] TROPONIN I 2020-06-30 13:36:00 Shabbir [facility] BASIC METABOLIC PANEL 2020-06-30 12:02:00 Ciera Seymour [facility] (NA, K, CL, CO2, GLUCOSE, Medica l Branch BUN, CREATININE, CA) CBC WITH DIFF 2020-06-30 12:02:00 Ciera Seymour [facility] XR ANKLE <3 VW LEFT 2020-06-23 20:29:12 Shelley Shahid [facility] XR FOOT <3 VW LEFT 2020-06-23 20:29:12 Shelley Shahid Margarita [facility] NOTICE OF PRIVACY 2020-06-23 19:41:37 Doctor Unassigned, No [facility] PRACTICES Name Medical Branch CONSENT/REFUSAL FOR 2020-06-23 19:41:09 Doctor Unassigned, No [facility]REATMENT Name Medical Branch HEMOGLOBIN A1C 2020-01-29 11:10:00 [facility] LIPID PANEL 2020-01-29 11:10:00 [facility] HEPATITIS ACUTE PANEL 2020-01-29 11:10:00 [facility] GGT 2020-01-29 11:10:00 [facility] MAGNESIUM LEVEL 2020-01-29 11:10:00 [facility] HIV AG/AB COMBINATION 2020-01-29 11:10:00 [facility] XR CHEST 1 VW 2019-11-10 04:30:10 Clovis Thomas [facility] TROPONIN I 2019-11-10 04:20:00 Clovis Thomas [facility] COMP. METABOLIC PANEL 2019-11-10 04:20:00 Clovis Thomas [facility] ([id number]) [facility] CBC WITH DIFFERENTIAL 2019-11-10 04:20:00 Clovis Thomas [facility] PROTHROMBIN TIME / INR 2019-11-10 04:20:00 Clovis [facility] ACTIVATED PARTIAL 2019-11-10 04:20:00 Clovis Thomas [facility] E[facility]-12 LEAD 2019-11-10 04:19:36 Clovis Thomas [facility] COMP. METABOLIC PANEL 2019-09-29 15:23:00 Johan Porras [facility] ([id number]) [facility] CBC WITH DIFFERENTIAL 2019-09-29 15:23:00 Singer Johan [facility] URINALYSIS 2019-09-29 15:23:00 Singer [facility] CONSENT/REFUSAL FOR 2019-09-29 14:19:48 Doctor Unassigned, No [facility]AGNOSIS AND TREATMENT Name Medical Branch NOTICE OF PRIVACY 2019-09-29 14:19:33 Doctor Unassigned, No Univ [facility] PRACTICES Name [facility] EKG-12 LEAD 2019-06-16 13:22:02 Jennifer Shea [facility] LIPASE 2019-06-16 13:22:00 [facility] TROPONIN I 2019-06-16 13:22:00 Shabbir [facility] COMP. METABOLIC PANEL 2019-06-16 13:22:00 Shabbir [facility] ([id number]) [facility] CBC WITH DIFFERENTIAL 2019-06-16 13:22:00 Shabbir [facility] PROTHROMBIN TIME / INR 2019-06-16 13:22:00 Jennifer [facility] ACTIVATED PARTIAL 2019-06-16 13:22:00 Shabbir [facility] THRMPLAS [facility] XR CHEST 1 VW 2019-06-15 18:27:52 Zehra [facility] MAGNESIUM 2019-06-15 18:22:00 Zehra [facility] TROPONIN I 2019-06-15 18:22:00 Zehra [facility] COMP. METABOLIC PANEL 2019-06-15 18:22:00 Shelley Shahid [facility] ([id number]) [facility] CBC WITH DIFFERENTIAL 2019-06-15 18:22:00 Shelley Shahid [facility] EKG-12 LEAD 2019-06-15 18:10:41 Zehra [facility] NOTICE OF PRIVACY 2019-06-15 17:21:46 Doctor Unassigned, No [facility] PRACTICES Name [facility] CONSENT/REFUSAL FOR 2019-06-15 17:16:40 Doctor Unassigned, [facility] TREATMENT Name [facility] POCT GRP A STREP 2019 16:24:00 [facility] (MOLECULAR) [facility] POCT FLU A AND B 2019 16:23:00 [facility] (MOLECULAR) [facility] NO SHOW OR MISSED 2019 16:08:34 Doctor Unassigned, No [facility] APPOINTMENT POLICY Name [facility] ACKNOWLEDGEMENT LIPASE 2019-01-24 21:38:00 Jerry Martin [facility] TROPONIN I 2019-01-24 21:38:00 Jerry Martin [facility] COMP. METABOLIC PANEL 2019-01-24 21:38:00 Jerry Martin [facility] ([id number]) Medical Branch URINALYSIS 2019-01-24 21:38:00 Jerry Martin [facility] ADC / LCC - DRUG SCREEN 2019-01-24 21:38:00 Jerry Martin [facility] TRIAGE [facility] CBC WITH DIFFERENTIAL 2019-01-24 21:38:00 Jerry Martin [facility] EKG-12 LEAD 2019-01-24 21:01:42 Jerry Martin [facility] CONSENT/REFUSAL FOR 2019-01-24 19:55:39 Doctor Unassigned, No [facility]NOSIS AND TREATMENT Name Medical Branch XR ABDOMEN ACUTE SERIES 2018-12-21 23:23:19 Jeremiah Demond [facility] LIPASE 2018-12-21 22:19:00 Jeremiah Demond [facility] MAGNESIUM 2018-12-21 22:19:00 Jeremiah [facility] COMP. METABOLIC PANEL 2018-12-21 22:19:00 Jeremiah Demond [facility] ([id number]) [facility] CBC WITH DIFFERENTIAL 2018-12-21 22:19:00 Jeremiah [facility] URINALYSIS 2018-12-21 22:19:00 Jeremiah Demond [facility] CONSENT/REFUSAL FOR 2018-12-21 20:57:44 Doctor Unassigned, No [facility] Name [facility] Branch Encounters Start End Encounter Admission Attending Care Care Encounter Source Date/Time Date/Time Type Type Clinicians Facility Department ID 2021-03-12 Emergency [facility] [id number] Univers 05:38:42 ity [facility] 2021-03-11 Emergency [facility] [id number] Univers 23:00:35 ity [facility] 2021-03-11 Emergency [facility] [id number] Univers 11:56:05 ity [facility] 2021-03-11 Emergency [facility] [id number] Univers 01:30:29 ity of [facility] 2021-03-10 Emergency [facility] [id number] Univers 07:20:38 ity of [facility] 2021-03-10 Emergency [facility] [id number] Univers 00:13:36 ity of [facility] 2021-03-09 Emergency [facility] [id number] Univers 23:32:17 ity of [facility] 2021-03-08 Emergency [facility] [id number] Univers 04:08:07 ity of [facility] 2021-03-08 Emergency [facility] [id number] Univers 00:53:49 ity of [facility] 2021-03-07 Emergency [facility] [id number] Univers 21:49:21 ity of [facility] 2021-09-29 2021-09-29 Emergency X BELGICA, [facility] ERT [id number] Univers 20:24:00 22:17:00 LILIANA it y of [facility] 2021-09-29 2021-09-29 Emergency [facility] [id number] Univers 20:24:00 22:17:00 Liliana PATTON [id number] ity of [facility] [id number] [facility] [id number] [address] 2021-09-12 2021-09-13 Outpatient X DARYNNICOLE [facility] ERIC [id number] Univers 08:19:00 19:45:00 JON ity [facility] 2021-09-12 2021-09-13 Emergency Johan Porras [facility] 1.2.840. [id number] Univers 08:19:00 19:45:00 DarynncioleJon [id number] ity of [place] [id number] [facility] [id number] [address] 2021-09-05 2021-09-06 Outpatient X PHUONG [facility] ERIC [id number] Univers 10:03:00 15:55:00 ALVIN ity of [facility] 2021-09-05 2021-09-06 Emergency Lynn Trinidad [facility] 1.2.840 .114 [id number] Univers 10:03:00 15:55:00 Alvin Baca [id number] itShae [id number] [facility] [id number] [address] 2021-08-05 2021-08-07 Outpatient X PHUONG [facility] ERIC [id number] Univers 10:16:00 12:38:00 ALVIN farley [facility] 2021-08-05 2021-08-07 Emergency Raya Sue S [facility] 1.2.840.1 [id number] Univers 10:16:00 12:38:00 Jon Acevedo [id number] ity of Alvin Baca [id number] [facility] [id number] [address] 2021-07-17 2021-07-18 Emergency [facility] [id number] [place] [address] 00:00:00 00:00:[address] 2021-07-15 2021-07-17 Emergency ER [facility] Emergency [id number] [facility] 23:45:00 12:57:00 LEONIDAS 2021-07-16 2021-07-16 Outpatient BCM [facility] [id number] [facility] 00:00:00 23:59:00 Colleg kalli of Medicin e 2021-06-05 2021-06-05 Emergency [facility] E[facility] [id number] Univers 09:04:00 13:12:00 JENNIFER farley [facility] 2021-06-05 2021-06-05 Emergency [facility] [id number] Univers 09:04:00 13:12:00 Jennifer PATTON [id number] i [place] [id number] [facility] [id number] [address] 2021-05-27 2021-05-27 Emergency [facility] ERT [id number] Univers 09:58:00 12:18:00 JENNIFER farley [facility] 2021-05-27 2021-05-27 Emergency Shabbir [facility] [id number] Univers 09:58:00 12:18:00 Jennifer PATTON [id number] i ty of [facility] [id number] [facility] [id number] [facility] 084 [place] 2021-05-27 2021-05-27 Orders Doctor RAS [id number] Univers 00:00:00 00:00:00 Only Unassigned, KAY [id number] ity of [facility] 4.2.7.2.686 Manfred [id number] [place] [address] Branch 2021-05-04 2021-05-05 Outpatient X KRISTINA [facility] [id number] Univers 18:35:00 12:45:00 JON ity [facility] 2021-05-04 2021-05-05 Emergency Shelley Shahid [facility] 1.2.840. 114 [id number] Univers 18:35:00 12:45:00 Laura Pedraza [id number] ity of DarynnicoleJon MAYMARIA G 4.2.7.2.686 [facility] [id number] [address] 2021-03-31 2021-03-31 Emergency X [facility] ERT [id number] Univers 08:36:00 10:17:00 CIERA itregine [facility] 2021-03-31 2021-03-31 Emergency [facility] 1.2.840.114 [id number] Univers 08:36:00 10:17:00 Ciera PATTON [id number] ity of [facility] [id number] [facility] [id number] [address] 2021-02-18 2021-02-18 Emergency [facility] [id number] Univers 08:21:00 11:20:00 Johan Patton [id number] i ty of [place] 4.2.7.2.686 [facility] [id number] [address] 2021-01-24 2021-01-24 Emergency [facility] [id number] Univers 08:32:00 10:23:00 Johan Sal [id number] i ty of [place] 4.2.7.2.686 [facility] [id number] [facility] 084 Branch 2020-12-07 2020-12-07 Emergency Shea, [facility] [id number] Univers 08:25:00 10:28:00 Jenniferjorge [place]ton [id number] i ty of [place] 4.2.7.2.686 [facility] [id number] [facility] 084 Branch 2020-10-30 2020-10-30 Transition Nisha Aguilar 1.2.840.114 [id number] Univers 00:00:00 00:00:00 of Care Michelle Reid [id number] ity of [place] 4.[address] [place] [address] [id number] [facility] 403 Branch 2020-10-24 2020-10-28 [facility] Johan Porras [facility] 1.2.840.1 [id number] Univers 06:11:00 10:50:00 Encounter Alvin Baca [id number] ity of [place] 4.2.7.2.686 [facility] [id number] [place] [id number] Branch 2020-07-28 2020-07-28 Emergency Shea, [facility] [id number] 13:17:00 20:00:00 Jennifer Patton [id number] [place] 4.2.7.2.686 [place] [id number] [facility] 2020-07-28 2020-07-28 Emergency Shabbir, [facility] [id number] Univers 13:17:00 20:00:00 Jennifer Patton [id number] i ty of [place] 4.2.7.2.686 [facility] [id number] [place] 769894 Branch 2020-06-30 2020-06-30 Emergency Lion, [facility] 1.2.840.114 [id number] 05:26:00 10:11:00 Ciera Patton [id number] [place] 4.2.7.2.686 [place] [id number] [facility] 2020-06-30 2020-06-30 [facility] 1.2.840.114 [id number] [facility] 05:26:00 10:11:00 Ciera Patton [id number] ity of [place] 4.2.7.2.686 [facility] [id number] [address] 2020-06-23 2020-06-23 Emergency Zehra [facility] 1.2.840.114 [id number] 13:46:00 15:46:00 Margarita Patton [id number] [place] 4.2.7.2.686 [place] [id number] [facility] 2020-06-23 2020-06-23 [facility] 1.2.840.114 [id number] [facility] 13:46:00 15:46:00 Margarita Patton [id number] i ty of [place] 4.2.7.2.686 [facility] [id number] [address] 2020-01-28 2020-02-01 [facility] 1.2.840.1 [id number] Methodi 14:08:19 14:20:00 [facility] Nelly AlasJulia [id number] 3.430.2.7 Hospit a .[id number] l .8 2019-11-09 2019-11-10 [facility] 1.2.524.102 [id number] 23:06:12 01:26:00 Clovis Patton [id number] [place] 4.2.7.2.686 [place] [id number] [facility] 2019-11-09 2019-11-10 [facility] [id number] [facility] 23:06:12 01:26:00 Clovis Patton [id number] i ty of [place] 4.2.7.2.686 [facility] [id number] [address] 2019-09-29 2019-09-29 Emergency [facility] [id number] 09:39:50 11:47:00 Johan [place]earney [id number] [place] 4.2.7.2.686 [place] [id number] [facility] 2019-09-29 2019-09-29 Emergency [facility] [id number] Univers 09:39:50 11:47:00 Johan Kearney [id number] i ty of [place] 4.2.7.2.686 [facility] [id number] [address] 2019-06-16 2019-06-16 Emergency Critical access hospital [id number] 07:08:27 08:57:00 Joesph S Kearney [id number] [place] 4.2.7.2.686 [place] [id number] [facility] 2019-06-16 2019-06-16 Emergency Critical access hospital [id number] [facility] 07:08:27 08:57:00 Joesph S [place] [id number] ity of [place] [place] [address] [place] [phone] 2019-06-16 2019-06-16 Emergency X [facility] ERT [id number] Univers 07:08:27 08:57:00 JOESPH ity of [facility] 2019-06-15 2019-06-15 Emergency Zehra [facility] 1.2.840.114 [id number] 11:30:00 13:30:00 Margarita [place] 350.1.13.10 [place] 4.2.7.2.686 [place] [phone] [facility] 2019-06-15 2019-06-15 Emergency Zehra, K [facility] 1.2.840.114 [id number] Univers 11:30:00 13:30:00 Margarita [place] 350.1.13.10 i ty of [place] 4.2.7.2.686 [facility] [phone] [address] 2019-06-15 2019-06-15 Orders Doctor RAS 1.2.840.114 [id number] 00:00:00 00:00:00 Only Unassigned, KAY 350.1.13.10 [place] [facility] 4.2.7.2.686 [id number] 009 2019-06-15 2019-06-15 Orders Doctor RAS 1.2.840.114 [id number] Univers 00:00:00 00:00:00 Only Unassigned, KAY 350.1.13.10 ity of [place] [facility] 4.2.7.2.686 Manfred as [id number] [facility] [address] 2019-06-06 2019-06-06 Letter Clinic, [facility] UNIVERSIT 1.2.840.114 [id number] 00:00:00 00:00:00 (Out) Neurology [facility] 350.1.13.10 [facility] 4.2.7.2.686 [id number] [facility] 2019-06-06 2019-06-06 Letter Clinic, [facility] UNIVERSIT 1.2.840.114 [id number] Univers 00:00:00 00:00:00 (Out) Neurology Y HEALTH 350.1.13.10 ity of [facility] 4.2.7.2.686 [place] [id number] [facility] [address] [place] 2019 2019 [place], [facility] 1.2.840.114 [id number] 10:16:26 10:55:54 Care [facility] 350.1.13.10 Surgical 4.2.7.2.686 Specialti [id number] [address] [place] 2019 2019 [place], July [facility] 1.2.840.114 [id number] [facility] 10:16:26 10:55:54 Care Unknown, Attending Health 350.1.13.10 ity of Surgical 4.2.7.2.686 Manfred as Specialti [phone] Wi dical 370 [facility] 2019 2019 Orders Doctor MCGINNIS 1.2.840.114 [id number] 00:00:00 00:00:00 Only Unassigned, KAY 350.1.13.10 [place] [facility] 4.2.7.2.686 [id number] 009 2019 2019 Orders Doctor RAS 1.2.840.114 [id number] Univers 00:00:00 00:00:00 Only Unassigned, KAY 350.1.13.10 ity of [place] [facility] 4.2.7.2.686 Manfred as [id number] [address] 2019-05-15 2019-05-15 Emergency [facility] ERT [id number] [facility] 20:18:44 22:11:00 DEMOND farley [facility] 2019-01-24 2019-01-24 [facility] 1.2.520.394 [id number] 15:49:15 22:27:00 Jerry Patton 350.1.13.10 [place] 4.2.7.2.686 [place] [id number] [facility] 2019-01-24 2019-01-24 [facility] 1.2.587.583 [id number] [facility] 15:49:15 22:27:00 Jerry Patton 350.1.13.10 i ty of [place] 4.2.7.2.686 [facility] [phone] [address] 2019-01-24 2019-01-24 Orders Doctor MCGINNIS 1.2.840.114 [id number] 00:00:00 00:00:00 Only Unassigned, KAY 350.1.13.10 [place] [facility] 4.2.7.2.686 [id number] [facility] 2019-01-24 2019-01-24 Orders Doctor MCGINNIS 1.2.840.114 [id number] Univers 00:00:00 00:00:00 Only Unassigned, KAY 350.1.13.10 ity of [place] [facility] 4.2.7.2.686 Manfred as [phone] [address] 2018-12-21 2018-12-21 [facility] [id number] 17:07:20 19:42:00 Demond Patton 350.1.13.10 [place] 4.2.7.2.686 [place] [id number] [facility] 2018-12-21 2018-12-21 Emergency Jeremiah, [facility] [id number] [id number] [facility] 17:07:20 19:42:00 Demond Patton 350.1.13.10 i ty of [place] 4.2.7.2.686 [facility] [id number] [place] 769[address] [place] 2018-12-21 2018-12-21 Orders Doctor RAS 1.2.840.114 [id number] 00:00:00 00:00:00 Only Unassigned, KAY 350.1.13.10 [place] [facility] 4.2.7.2.686 [id number] 009 2018-12-21 2018-12-21 Orders Doctor RAS 1.2.840.114 [id number] Univers 00:00:00 00:00:00 Only Unassigned, KAY 350.1.13.10 ity of [place] [facility] 4.2.7.2.686 [facility] [id number] [address] Results Test Description Test Time Test Comments Results Result Comments Source TROPONIN I 2021-09-30 02:08:36 Test Item Value Reference Range Interpretation Comme nts TROPONIN I (test code = <0.012 See_Comment [Au tomated message] The 2825000887) system which ge nerated this result tra nsmitted reference range : <=0.034 ng/mL. The refe rence range was not u sed to interpret this result as normal/abnormal . [...] biotin. Lab Interpretation Normal (test code = 84974-9) [facility]2022-05-23 01:58:14 Test Item Value Reference Range Interpretation Comments ALCOHOL (test code = 81 mg/dL 1852653143) TAMIKO (test code = TAMIKO) <10 Bfsrkykv58-665 Toxic>100 Depression of [employer] MANAGER>400 [facility]orted [facility] 01:57:54 Test Item Value Reference Range Interpretation Comments MAGNESIUM (test code = 2195887042) 1.7 mg/dL 1.7-2.4 Lab Interpretation (test code = Normal 41049-2) [facility] (99539)2021-09-30 01:57:34 Test Item Value Reference Range Interpretation Comments NA (test code = 141 mmol/L 135-145 1292867506) K (test code = 4.2 mmol/L 3.5-5.0 7158414623) CL (test code = 106 mmol/L 98-108 7513180272) CO2 TOTAL (test code = 22 mmol/L 23-31 L 7742963755) AGAP (test code = 2-16 6030241090) BUN (test code = 14 mg/dL 7-23 2654754224) GLUCOSE (test code = 117 mg/dL 70-110 H 0771608801) CREATININE (test code = 1.12 mg/dL 0.60-1.25 6645381769) TOTAL BILI (test code = 0.2 mg/dL 0.1-1.0 7503055799) CALCIUM (test code = 9.0 mg/dL 8.6-10.6 7118845018) T PROTEIN (test code = 7.4 g/dL 6.3-8.2 3445114224) ALBUMIN (test code = 4.5 g/dL 3.5-5.0 6516962004) ALK PHOS (test code = 65 U/L 34-122 9377427273) ALTv (test code = 17 U/L 5-50 1742-6) AST(SGOT) (test code = 21 U/L 13-40 5856123058) eGFR (test code = mL/min/1.73m2 2793532791) TAMIKO (test code = TAMIKO) Association of [...] tests). Lab Interpretation Abnormal (test code = 29706-9) [facility] [id number] 01:57:14 Test Item Value Reference Range Interpretation Comments CK (test code = 9767660140) 57 U/L 33-194 Lab Interpretation (test code = Normal 34963-8) [facility] WITH [id number] 01:46:12 Test Item Value Reference Range Interpretation Comments WBC (test code = See_Comment [Automated 8633-2) message] The sy stem which generated this result transmitted reference range : 4.20 - 10.70 10*3/?L. The reference range was not used to interpret this result as normal/abnormal . RBC (test code = See_Comment [Automated 566-5) message] The sy stem which generated this result transmitted reference range : 4.26 - 5.52 10*6/?L. The reference range was not used to interpret this result as normal/abnormal . HGB (test code = 14.1 g/dL 12.2-16.4 718-7) HCT (test code = 43.4 % 38.4-49.3 4544-3) MCV (test code = 91.0 fL 81.7-95.6 787-2) MCH (test code = 29.6 pg 26.1-32.7 785-6) MCHC (test code = 32.5 g/dL 31.2-35.0 786-4) RDW-SD (test code = 45.1 fL 38.5-51.6 46229-6) RDW-CV (test code = 13.4 % 12.1-15.4 788-0) PLT (test code = See_Comment [Automated 777-3) message] The sy stem which generated this result transmitted reference range : 150 - 328 10*3/ ?L. The reference r javier was not used to interpret this result as normal/abnormal . MPV (test code = 9.7 fL 9.8-13.0 L 14885-1) NRBC/100 WBC (test See_Comment [Automat ed code = 6345398049) message] The system which generated this result transmitted reference range : 0.0 - 10.0 /100 WBCs. The refer ence range was not u sed to interpret th is result as normal/abnormal . NRBC x10^3 (test code <0.01 See_Comment [Auto mated = 0682355074) message] The s ystem which generated this result transmitted reference range : 10*3/?L. The reference range was not used to interpret this result as normal/abnormal . GRAN MAT (NEUT) % 45.6 % (test code = 770-8) IMM GRAN % (test code 0.40 % = 0285990047) LYMPH % (test code = 39.4 % 736-9) MONO % (test code = 8.4 % 5905-5) EOS % (test code = 5.4 % 713-8) BASO % (test code = 0.8 % 706-2) GRAN MAT x10^3(ANC) 3.51 10*3/uL 1.99-6.95 (test code = 3568458285) IMM GRAN x10^3 (test 0.03 10*3/uL 0.00-0.06 code = 8609484447) LYMPH x10^3 (test code 3.04 10*3/uL 1.09-3.23 = 731-0) MONO x10^3 (test code 0.65 10*3/uL 0.36-1.02 = 742-7) EOS x10^3 (test code = 0.42 10*3/uL 0.06-0.53 711-2) BASO x10^3 (test code 0.06 10*3/uL 0.01-0.09 = 704-7) Lab Interpretation Abnormal (test code = 90928-1) [facility] [id number] 02:03:45 Test Item Value Reference Interpretation Comments Range TROPONIN I (test 0.003 ng/mL See_Comment [Automated code = 3265465177) message] The system which generated this result [...] biotin. Lab Interpretation Normal (test code = 68818-4) [facility] [id number] 14:14:18 Test Item Value Reference Interpretation Comments Range TROPONIN I (test 0.003 ng/mL See_Comment [Automated code = 9704687613) message] The system which generated this result [...] biotin. Lab Interpretation Normal (test code = 81685-7) [facility] [id number] 14:11:01 Test Item Value Reference Range Interpretation Comments NT-proBNP (test code 14 pg/mL See_Comment [Autom ated = 8062625803) message] The system which generated this result transmitted reference range : <=125. The reference range was not used to interpret this result as normal/abnormal . TAMIKO (test code = TAMIKO) Biotin has been reported to cause a negative bias, interpret results relative to patient's use of biotin. Lab Interpretation Normal (test code = 72390-9) [facility]20[facility]-05 14:03:57 Test Item Value Reference Range Interpretation Comments MAGNESIUM (test code = 6593782248) 1.8 mg/dL 1.7-2.4 Lab Interpretation (test code = Normal 53307-9) [facility] (68507)2021-09-12 14:03:37 Test Item Value Reference Range Interpretation Comments NA (test code = 140 mmol/L 135-145 0021435525) K (test code = 4.6 mmol/L 3.5-5.0 2093774979) CL (test code = 105 mmol/L 98-108 4117371644) CO2 TOTAL (test code = 25 mmol/L 23-31 1018292738) AGAP (test code = 2-16 5341637723) BUN (test code = 11 mg/dL 7-23 4975163799) GLUCOSE (test code = 111 mg/dL 70-110 H 4651456503) CREATININE (test code = 0.65 mg/dL 0.60-1.25 2389847081) TOTAL BILI (test code = 0.4 mg/dL 0.1-1.4 7987220850) CALCIUM (test code = 8.8 mg/dL 8.6-10.6 1024296862) T PROTEIN (test code = 7.7 g/dL 6.3-8.2 7581888393) ALBUMIN (test code = 4.6 g/dL 3.5-5.0 3625903935) ALK PHOS (test code = 73 U/L 34-122 2460388712) ALTv (test code = 35 U/L 5-50 1742-6) AST(SGOT) (test code = 30 U/L 13-40 3884219302) eGFR (test code = mL/min/1.73m2 5120245753) TAMIKO (test code = TAMIKO) Association of [...] tests). Lab Interpretation Abnormal (test code = 79769-6) [facility] 14:03:37 Test Item Value Reference Range Interpretation Comments LIPASE (test code = 7867904121) 110 U/L 0-220 Lab Interpretation (test code = Normal 91681-3) [facility] [id number] 13:31:54 Test Item Value Reference Range Interpretation Comments [...] as normal/abnormal . HGB (test code = 14.1 g/dL 12.2-16.4 718-7) HCT (test code = 42.8 % 38.4-49.3 4544-3) MCV (test code = 91.1 fL 81.7-95.6 787-2) MCH (test code = 30.0 pg 26.1-32.7 785-6) MCHC (test code = 32.9 g/dL 31.2-35.0 786-4) RDW-SD (test code = 44.7 fL 38.5-51.6 44426-9) RDW-CV (test code = 13.3 % 12.1-15.4 788-0) PLT (test code = See_Comment [Automated 777-3) message] The sy stem which generated this result transmitted reference range : 150 - 328 10*3/ ?L. The reference r javier was not used to interpret this result as normal/abnormal . MPV (test code = 10.0 fL 9.8-13.0 99630-4) NRBC/100 WBC (test See_Comment [Automat ed code = 8750955818) message] The system which generated this result transmitted reference range : 0.0 - 10.0 /100 WBCs. The refer ence range was not u sed to interpret th is result as normal/abnormal . NRBC x10^3 (test code <0.01 See_Comment [Auto mated = 3340881482) message] The s ystem which generated this result transmitted reference range : 10*3/?L. The reference range was not used to interpret this result as normal/abnormal . GRAN MAT (NEUT) % 54.1 % (test code = 770-8) IMM GRAN % (test code 0.70 % = 5744455668) LYMPH % (test code = 26.6 % 736-9) MONO % (test code = 12.7 % 5905-5) EOS % (test code = 5.0 % 713-8) BASO % (test code = 0.9 % 706-2) GRAN MAT x10^3(ANC) 4.97 10*3/uL 1.99-6.95 (test code = 1071140230) IMM GRAN x10^3 (test 0.06 10*3/uL 0.00-0.06 code = 4190079662) LYMPH x10^3 (test code 2.44 10*3/uL 1.09-3.23 = 731-0) MONO x10^3 (test code 1.17 10*3/uL 0.36-1.02 H = 742-7) EOS x10^3 (test code = 0.46 10*3/uL 0.06-0.53 711-2) BASO x10^3 (test code 0.08 10*3/uL 0.01-0.09 = 704-7) Lab Interpretation Abnormal (test code = 47610-3) [facility] [place] [id number] 10:22:16 Test Item Value Reference Interpretation Comments Range TROPONIN I (test 0.003 ng/mL See_Comment [Automated code = 7641943615) message] The system which generated this result [...] biotin. Lab Interpretation Normal (test code = 21301-5) [facility] [id number] 10:12:18 Test Item Value Reference Range Interpretation Comments MAGNESIUM (test code = 6953946219) 1.7 mg/dL 1.7-2.4 Lab Interpretation (test code = Normal 72755-8) [facility] Metabolic Panel (NA, K, CL, CO2, GLUCOSE, BUN, CREATININE, CA)2021-09-06 10:11:58 Test Item Value Reference Range Interpretation Comments NA (test code = 136 mmol/L 135-145 6082273129) K (test code = 3.9 mmol/L 3.5-5.0 5904407813) CL (test code = 101 mmol/L 98-108 9411968223) CO2 TOTAL (test code 27 mmol/L 23-31 = 0947056495) AGAP (test code = 2-16 9468266349) BUN (test code = 14 mg/dL 7-23 7675946184) GLUCOSE (test code = 95 mg/dL 70-110 2642789397) CREATININE (test code 0.81 mg/dL 0.60-1.25 = 5097281487) CALCIUM (test code = 8.7 mg/dL 8.6-10.6 0019844777) eGFR (test code = mL/min/1.73m2 3615645780) TAMIKO (test code = TAMIKO) Association of [...] or urine or abnormalities in imaging tests). [facility]YCOSYLATED HEMOGLOBIN (A1C)2021-09-05 23:56:19 Test Item Value Reference Range Interpretation Comments HGB A1C (test code = 5.6 % 4.0-5.7 4548-4) TAMIKO (test code = TAMIKO) Reference RangesNormal: <5.7%Prediabetes: 5.7 - 6.4%Diabetes: > 6.5% Lab Interpretation (test Normal code = 37825-1) [facility]rop[facility] [id number] 23:52:47 Test Item Value Reference Interpretation Comments Range TROPONIN I (test 0.003 ng/mL See_Comment [Automated code = 1516316603) message] The system which generated this result [...] biotin. Lab Interpretation Normal (test code = 46300-3) [facility] AllenLIPID PANEL (58704)(TOTAL CHOLESTEROL, TRIGLYCERIDES, HDL)2021-09-05 23:08:35 Test Item Value Reference Range Interpretation Comments CHOL (test code = 148 mg/dL 120-200 6884149016) HDL (test code = 39 mg/dL >40 L 9113782958) HDLC RATIO (test code = See_Comment [Au tomated message] 4304761376) The system [employer] generated this result transmit luis reference range : <=5.0. The refe rence range was not u sed to interpret th is result as normal/abnormal . TRIG (test code = 150 mg/dL 30-170 7276345357) LDL CHOL (test code = 79 mg/dL See_Comment [Auto mated message] 33133-3) The system [employer] generated this result transmit luis reference range : <=160. The refe rence range was not u sed to interpret th is result as normal/abnormal . VLDL (test code = 30 mg/dL 5-60 2713180145) Lab Interpretation (test Abnormal code = 64502-4) [facility]an[facility] (TTE)2021-09-05 21:38:59 Test Item Value Reference Range Interpretation Comments LVIDD (test code = 4.60 cm 4581878297) IVS (test code = 1.48 cm 0206342746) Interventricular Septum 1.48 cm Diastolic Thickness by 2D (test code = 7720874) LVPWD (test code = 1.25 cm 0889167560) PW (test code = 1.25 cm 0.6-1.6 6249365153) EF(Teich) (test code = 59.40 % 8937374379) LVIDS (test code = 3.20 cm 6277455337) FS (test code = 31 % 0915594859) EF - 2D (test code = 59.40 % 73978304) LVOT diameter (test code 2.06 cm = 8022795467) ACS (test code = 1.98 cm 9993756039) Ao root annulus (test 2.9 cm code = 7019701064) Ao root diam (test code = 2.90 cm 5743202763) Aortic root (test code = 2.9 cm 4914749037) LA size (test code = 3.9 cm 0388384646) Radiology Study observation (narrative) (test code = 07892-7) TAMIKO (test code = TAMIKO) ?Left?Ventricle: Left ventricle size is normal. Mild basal septal thickening. Normal wall motion. Normal systolic function with a visually estimated EF of 60 - 65%. ?Tricuspid?Valve: Tricuspid valve structure is normal. Insufficient regurgant jet to estimate RVSP. VitalsHeight Weight BSA (Calculated - sq m) BP Pulse 5' 7" (1.702 m) 220 lb (99.8 kg) 2.17 sq meters 120/59 88 [facility] Lead ROUTINE [id number] 17:41:17 Test Item Value Reference Range Interpretation Comments Lab Interpretation (test code = Abnormal 84698-7) [facility] [id number] 16:19:01 Test Item Value Reference Interpretation Comments Range TROPONIN I (test 0.002 ng/mL See_Comment [Automated code = 9404129164) message] The system which generated this result [...] biotin. Lab Interpretation Normal (test code = 01563-8) [facility] [id number] 16:15:43 Test Item Value Reference Range Interpretation Comments NT-proBNP (test code 17 pg/mL See_Comment [Autom ated = 6983583179) message] The system which generated this result transmitted reference range : <=125. The reference range was not used to interpret this result as normal/abnormal . TAMIKO (test code = TAMIKO) Biotin has been reported to cause a negative bias, interpret results relative to patient's use of biotin. Lab Interpretation Normal (test code = 17639-2) [facility]OLIC PAN[facility] (15917)2021-09-05 16:07:19 Test Item Value Reference Range Interpretation Comments NA (test code = 141 mmol/L 135-145 5336009041) K (test code = 4.5 mmol/L 3.5-5.0 5200675045) CL (test code = 104 mmol/L 98-108 5667913103) CO2 TOTAL (test code = 23 mmol/L 23-31 5627119583) AGAP (test code = 2-16 8391036203) BUN (test code = 8 mg/dL 7-23 1317891395) GLUCOSE (test code = 127 mg/dL 70-110 H 4118110535) CREATININE (test code = 0.66 mg/dL 0.60-1.25 9831410121) TOTAL BILI (test code = 0.3 mg/dL 0.1-1.7 2365288204) CALCIUM (test code = 8.9 mg/dL 8.6-10.6 8435391667) T PROTEIN (test code = 7.7 g/dL 6.3-8.2 0087766353) ALBUMIN (test code = 4.6 g/dL 3.5-5.0 7543326590) ALK PHOS (test code = 66 U/L 34-122 8937965148) ALTv (test code = 89 U/L 5-50 H 1742-6) AST(SGOT) (test code = 72 U/L 13-40 H 9868024427) eGFR (test code = mL/min/1.73m2 8855315221) TAMIKO (test code = TAMIKO) Association of [...] tests). Lab Interpretation Abnormal (test code = 66187-0) [facility]2022-04-28 16:06:59 Test Item Value Reference Range Interpretation Comments LIPASE (test code = 3122084196) 83 U/L 0-220 Lab Interpretation (test code = Normal 56169-3) [facility] AllenD-[id number] 16:05:17 Test Item Value Reference Interpretation Comments Range D-DIMER (test code = <0.27 See_Comment [Autom ated 4097730763) message] The system which generated this result [...] diagnosis. Lab Interpretation Normal (test code = 03408-7) [facility] WITH [id number] 15:45:55 Test Item Value Reference Range Interpretation Comments WBC (test code = See_Comment [Automated message] 6690-2) The system [employer] generated this result transmitted ref erence range: 4.20 - 1 0.70 10*3/?L. The re ference range was not u sed to interpret this result as normal/abnor mal. RBC (test code = See_Comment [Automated message] 789-8) The system [employer] generated this result transmitted ref erence range: 4.26 - 5 .52 10*6/?L. The re ference range was not u sed to interpret this result as normal/abnor mal. HGB (test code = 14.1 g/dL 12.2-16.4 718-7) HCT (test code = 42.8 % 38.4-49.3 4544-3) MCV (test code = 90.9 fL 81.7-95.6 787-2) MCH (test code = 29.9 pg 26.1-32.7 785-6) MCHC (test code = 32.9 g/dL 31.2-35.0 786-4) RDW-SD (test code 46.4 fL 38.5-51.6 = 28796-6) RDW-CV (test code 13.7 % 12.1-15.4 = 788-0) PLT (test code = See_Comment [Automated message] 777-3) The system [employer] generated this result transmitted ref erence range: 150 - 32 8 10*3/?L. The re ference range was not u sed to interpret this result as normal/abnor mal. MPV (test code = 10.3 fL 9.8-13.0 62844-1) NRBC/100 WBC (test See_Comment [Automat ed message] code = 7462642320) The [employer] which generated this result transmitted ref erence range: 0.0 - 10 .0 /100 WBCs. The refer ence range was not u sed to interpret this result as normal/abnor mal. NRBC x10^3 (test <0.01 See_Comment [Automated message] code = 4430157650) The syste m which generated this result transmitted ref erence range: 10*3/?L. The reference range was not used to interpr et this result as normal/abnormal . GRAN MAT (NEUT) % 49.4 % (test code = 704-8) IMM GRAN % (test 0.20 % code = 6120103506) LYMPH % (test code 34.1 % = 736-9) MONO % (test code 10.4 % = 5905-5) EOS % (test code = 4.7 % 713-8) BASO % (test code 1.2 % = 706-2) GRAN MAT 2.97 10*3/uL 1.99-6.95 x10^3(ANC) (test code = 6666684413) IMM GRAN x10^3 <0.03 0.00-0.06 (test code = 2379449185) LYMPH x10^3 (test 2.04 10*3/uL 1.09-3.23 code = 731-0) MONO x10^3 (test 0.62 10*3/uL 0.36-1.02 code = 742-7) EOS x10^3 (test 0.28 10*3/uL 0.06-0.53 code = 711-2) BASO x10^3 (test 0.07 10*3/uL 0.01-0.09 code = 704-7) [facility]2021-08-06 21:59:45 Test Item Value Reference Range Interpretation Comments LVIDD (test code = 4.40 cm 2513085345) IVS (test code = 1.50 cm 6012548552) Interventricular Septum 1.50 cm Diastolic Thickness by 2D (test code = 6506222) LVPWD (test code = 1.46 cm 3838508283) PW (test code = 1.46 cm 0.6-1.8 5153687563) EF(Teich) (test code = 56.70 % 5722256448) LVIDS (test code = 3.10 cm 7875778321) FS (test code = 30 % 7196448948) EF - 2D (test code = 56.70 % 89303923) LVOT diameter (test code 2.19 cm = 6527205281) ACS (test code = 2.16 cm 0752461751) Ao root annulus (test 3.5 cm code = 3480081557) Ao root diam (test code = 3.50 cm 4849473322) Aortic root (test code = 3.5 cm 4481326300) LA size (test code = 3.4 cm 7420064089) E wave decelartion time 0.14 s (test code = 5868346227) MV Peak E Scott (test code 83.6 cm/s = 8509874387) MV Peak A Scott (test code 59.0 cm/s = 8479000528) E/A ratio (test code = ratio 3851726707) MR max PG (test code = 90.10 mm[Hg] 8553853261) MR max scott (test code = 474.50 cm/s 9398532823) Mr max scott (test code = 474.5 m/s 4379044077) MV Prop V (test code = 70.20 cm/s 2759403542) Tapse (test code = 2.44 cm 5716030947) TR Peak Scott (test code = 238.4 cm/s 3817782252) Triscuspid Valve mmHg Regurgitation Peak Gradient (test code = 9450576983) LVOT stroke volume (test 78.90 cm3 code = 8020890256) LVOT peak scott (test code 99.0 cm/s = 7211482746) LVOT mn grad (test code = mmHg 5481753668) AV LVOT peak gradient mmHg (test code = 1562484569) LVOT peak VTI (test code 21.0 cm = 2915168300) LV V1 mean (test code = 62.40 cm/s 1718296742) Aortic valve mean 78.6 cm/s velocity (test code = 3905128346) Ao peak scott (test code = 127.2 cm/s 0132977401) Ao VTI (test code = 23.2 cm 3773148554) AV area by cont VTI (test 3.4 cm2 code = 1603727648) AV area peak scott (test 2.9 cm2 code = 4421646449) Ao max PG (test code = 6.50 mm[Hg] 9630446666) AV peak gradient (test mmHg code = 8944205527) AV valve area (test code 3.40 cm2 = 3489103366) AV mean gradient (test mmHg code = 8129336133) Radiology Study observation (narrative) (test code = 64953-1) TAMIKO (test code = TAMIKO) ?Left?Ventricle: Left ventricle size is normal. Mildly increased wall thickness. Normal wall motion. Normal systolic function with a visually estimated EF of 55 - 60%. Normal diastolic function. ?Tricuspid?Valve: Right ventricular systolic pressure is normal. ?RA pressure is 0-5 mmHg. VitalsHeight Weight BSA (Calculated - sq m) BP Pulse 5' 7" (1.702 m) 230 lb (104.3 kg) 2.22 sq meters 150/92 71 [facility] [id number] 15:14:07 Test Item Value Reference Interpretation Comments Range TROPONIN I (test 0.004 ng/mL See_Comment [Automated code = 6869661448) message] The system which generated this result [...] biotin. Lab Interpretation Normal (test code = 09081-3) [facility] (49043)(TOTAL CHOLESTEROL, TRIGLYCERIDES, HDL)2021-08-06 14:47:02 Test Item Value Reference Range Interpretation Comments CHOL (test code = 211 mg/dL 120-200 H 6129744933) HDL (test code = 31 mg/dL >40 L 2349856922) HDLC RATIO (test code = See_Comment H [Au tomated message] 0616238844) The system [employer] generated this result transmit luis reference range : <=5.0. The refe rence range was not u sed to interpret th is result as normal/abnormal . TRIG (test code = 186 mg/dL 30-170 H 5956416336) LDL CHOL (test code = 143 mg/dL See_Comment [Auto mated message] 23953-3) The system [employer] generated this result transmit luis reference range : <=160. The refe rence range was not u sed to interpret th is result as normal/abnormal . VLDL (test code = 37 mg/dL 5-60 6137887185) Lab Interpretation (test Abnormal code = 85140-1) [facility] with [id number] 11:04:14 Test Item Value Reference Range Interpretation Comments WBC (test code = See_Comment [Automated message] 6690-2) The system [employer] generated this result transmitted ref erence range: 4.20 - 1 0.70 10*3/?L. The re ference range was not u sed to interpret this result as normal/abnor mal. RBC (test code = See_Comment [Automated message] 769-8) The system [employer] generated this result transmitted ref erence range: 4.26 - 5 .52 10*6/?L. The re ference range was not u sed to interpret this result as normal/abnor mal. HGB (test code = 13.3 g/dL 12.2-16.4 718-7) HCT (test code = 41.9 % 38.4-49.3 4544-3) MCV (test code = 92.3 fL 81.7-95.6 787-2) MCH (test code = 29.3 pg 26.1-32.7 785-6) MCHC (test code = 31.7 g/dL 31.2-35.0 786-4) RDW-SD (test code 46.8 fL 38.5-51.6 = 73449-4) RDW-CV (test code 13.7 % 12.1-15.4 = 788-0) PLT (test code = See_Comment [Automated message] 937-3) The system [employer] generated this result transmitted ref erence range: 150 - 32 8 10*3/?L. The re ference range was not u sed to interpret this result as normal/abnor mal. MPV (test code = 11.1 fL 9.8-13.0 03377-9) NRBC/100 WBC (test See_Comment [Automat ed message] code = 9559561488) The [employer] m which generated this result transmitted ref erence range: 0.0 - 10 .0 /100 WBCs. The refer ence range was not u sed to interpret this result as normal/abnor mal. NRBC x10^3 (test <0.01 See_Comment [Automated message] code = 8868634419) The syste m which generated this result transmitted ref erence range: 10*3/?L. The reference range was not used to interpr et this result as normal/abnormal . GRAN MAT (NEUT) % 51.5 % (test code = 770-8) IMM GRAN % (test 0.30 % code = 8572215986) LYMPH % (test code 29.7 % = 736-9) MONO % (test code 12.9 % = 5905-5) EOS % (test code = 4.6 % 713-8) BASO % (test code 1.0 % = 706-2) GRAN MAT 3.66 10*3/uL 1.99-6.95 x10^3(ANC) (test code = 3336464096) IMM GRAN x10^3 <0.03 0.00-0.06 (test code = 5324676895) LYMPH x10^3 (test 2.11 10*3/uL 1.09-3.23 code = 731-0) MONO x10^3 (test 0.92 10*3/uL 0.36-1.02 code = 742-7) EOS x10^3 (test 0.33 10*3/uL 0.06-0.53 code = 711-2) BASO x10^3 (test 0.07 10*3/uL 0.01-0.09 code = 704-7) [facility] Metabolic Panel (NA, K, CL, CO2, GLUCOSE, BUN, CREATININE, CA)2021-08-06 11:02:13 Test Item Value Reference Range Interpretation Comments NA (test code = 138 mmol/L 135-145 7750859528) K (test code = 3.7 mmol/L 3.5-5.0 7709252341) CL (test code = 102 mmol/L 98-108 8191567967) CO2 TOTAL (test code = 30 mmol/L 23-31 1529248182) AGAP (test code = 2-16 8224914374) BUN (test code = 12 mg/dL 7-23 5151022432) GLUCOSE (test code = 91 mg/dL 70-110 3099943787) CREATININE (test code = 0.74 mg/dL 0.60-1.25 9279962602) CALCIUM (test code = 8.4 mg/dL 8.6-10.6 L 9384658067) eGFR (test code = mL/min/1.73m2 8426112714) TAMIKO (test code = TAMIKO) Association of [...] tests). Lab Interpretation Abnormal (test code = 40747-3) [facility]Magnesium [id number] 11:02:13 Test Item Value Reference Range Interpretation Comments MAGNESIUM (test code = 9863291821) 1.6 mg/dL 1.7-2.4 L Lab Interpretation (test code = Abnormal 07303-7) [facility] AllenPhosphorus [id number] 05:25:31 Test Item Value Reference Range Interpretation Comments PHOSPHORUS (test code = 1164886769) 3.6 mg/dL 2.5-5.0 Lab Interpretation (test code = Normal 97742-4) [facility]TROP[facility]IN [id number] 01:47:25 Test Item Value Reference Interpretation Comments Range TROPONIN I (test 0.004 ng/mL See_Comment [Automated code = 6038621654) message] The system which generated this result [...] biotin. Lab Interpretation Normal (test code = 88995-0) [facility] AllenD-[id number] 01:13:57 Test Item Value Reference Interpretation Comments Range D-DIMER (test code = See_Comment H [Autom ated 2321850842) message] The system which generated this result [...] diagnosis. Lab Interpretation Abnormal (test code = 14666-6) [facility]TR[facility] [id number] 18:20:26 Test Item Value Reference Interpretation Comments Range TROPONIN I (test 0.003 ng/mL See_Comment [Automated code = 8607075516) message] The system which generated this result [...] biotin. Lab Interpretation Normal (test code = 02051-5) [facility] AllenN-TERMINAL [id number] 18:17:04 Test Item Value Reference Range Interpretation Comments NT-proBNP (test code 16 pg/mL See_Comment [Autom ated = 5973575250) message] The system which generated this result transmitted reference range : <=125. The reference range was not used to interpret this result as normal/abnormal . TAMIKO (test code = TAMIKO) Biotin has been reported to cause a negative bias, interpret results relative to patient's use of biotin. Lab Interpretation Normal (test code = 54016-6) [facility] AllenMAGNESIUM2022-03-28 18:09:02 Test Item Value Reference Range Interpretation Comments MAGNESIUM (test code = 2927936850) 1.9 mg/dL 1.7-2.4 Lab Interpretation (test code = Normal 26593-1) [facility]COMP[facility] METABOLIC PANEL (94392)2021-08-05 18:08:42 Test Item Value Reference Range Interpretation Comments NA (test code = 149 mmol/L 135-145 H 6058160667) K (test code = 4.3 mmol/L 3.5-5.0 2977175411) CL (test code = 110 mmol/L 98-108 H 6342252369) CO2 TOTAL (test code = 27 mmol/L 23-31 3987574669) AGAP (test code = 2-16 5096986873) BUN (test code = 4 mg/dL 7-23 L 8519471852) GLUCOSE (test code = 121 mg/dL 70-110 H 2848702298) CREATININE (test code = 0.74 mg/dL 0.60-1.25 1644512216) TOTAL BILI (test code = 0.4 mg/dL 0.1-1.1 2801174433) CALCIUM (test code = 8.9 mg/dL 8.6-10.6 9445137485) T PROTEIN (test code = 7.5 g/dL 6.3-8.2 2957607128) ALBUMIN (test code = 4.4 g/dL 3.5-5.0 6308485834) ALK PHOS (test code = 68 U/L 34-122 4333993764) ALTv (test code = 20 U/L 5-50 1742-6) AST(SGOT) (test code = 31 U/L 13-40 3627841604) eGFR (test code = mL/min/1.73m2 2055725761) TAMIKO (test code = TAMIKO) Association of [...] tests). Lab Interpretation Abnormal (test code = 54862-3) [facility] WITH [id number] 17:49:58 Test Item Value Reference Range Interpretation Comments WBC (test code = See_Comment [Automated 5190-2) message] The sy stem which generated this [...] g/dL 12.2-16.4 718-7) HCT (test code = 44.9 % 38.4-49.3 4544-3) MCV (test code = 92.0 fL 81.7-95.6 787-2) MCH (test code = 29.5 pg 26.1-32.7 785-6) MCHC (test code = 32.1 g/dL 31.2-35.0 786-4) RDW-SD (test code = 46.6 fL 38.5-51.6 26931-4) RDW-CV (test code = 13.7 % 12.1-15.4 788-0) PLT (test code = See_Comment H [Automated 537-3) message] The sy stem which generated this result transmitted reference range : 150 - 328 10*3/ ?L. The reference r javier was not used to interpret this result as normal/abnormal . MPV (test code = 10.0 fL 9.8-13.0 43463-4) NRBC/100 WBC (test See_Comment [Automat ed code = 0321750841) message] The system which generated this result transmitted reference range : 0.0 - 10.0 /100 WBCs. The refer ence range was not u sed to interpret th is result as normal/abnormal . NRBC x10^3 (test code <0.01 See_Comment [Auto mated = 9605665670) message] The s ystem which generated this result transmitted reference range : 10*3/?L. The reference range was not used to interpret this result as normal/abnormal . GRAN MAT (NEUT) % 45.8 % (test code = 770-8) IMM GRAN % (test code 0.40 % = 1974332314) LYMPH % (test code = 41.7 % 736-9) MONO % (test code = 6.6 % 5905-5) EOS % (test code = 4.8 % 713-8) BASO % (test code = 0.7 % 706-2) GRAN MAT x10^3(ANC) 3.68 10*3/uL 1.99-6.95 (test code = 7346513171) IMM GRAN x10^3 (test 0.03 10*3/uL 0.00-0.06 code = 4248973635) LYMPH x10^3 (test code 3.36 10*3/uL 1.09-3.23 H = 731-0) MONO x10^3 (test code 0.53 10*3/uL 0.36-1.02 = 742-7) EOS x10^3 (test code = 0.39 10*3/uL 0.06-0.53 711-2) BASO x10^3 (test code 0.06 10*3/uL 0.01-0.09 = 704-7) Lab Interpretation Abnormal (test code = 21635-1) [facility] RNA [Presence] in Respiratory specimen by PHILIP with probe [id number] 22:29:39 Test Item Value Reference Range Interpretation Comments SARS-CoV-2 (COVID-19) RNA Not detected [Presence] in Respiratory specimen by PHILIP with probe detection (test code = 88617-0) Whether patient is employed in a Unknown healthcare setting (test code = 78886-7) Whether the patient has symptoms Unknown related to condition of interest (test code = 24507-6) Whether the patient was Unknown hospitalized for condition of interest (test code = 35605-5) Whether the patient was admitted Unknown to intensive care unit (ICU) for condition of interest (test code = 90701-4) Whether patient resides in a Unknown congregate care setting (test code = 21766-5) status (test code = Unknown 75575-6) Date and time of symptom onset Unknown (test code = 35340-2) [id number] 04:33:29 Test Item Value Reference Range Interpretation Comments ETHANOL (BEAKER) 170 mg/dL See_Comment H [Automated message] The (test code = 400) system [employer] generated this result tra nsmitted reference range : <=10. The reference r javier was not used to int erpret this result as normal/abnormal . 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 Negative result s do not preclude SARS-C oV-2 infection and s hould not be used as the janae e basis for patient managem ent decisions. Nega tive results must be combine d with clinical observ ations, patient history , and epidemiological information. A false negativ e result may occur if a spec imen is improperly stephenie ected, transported or handled. This SARS CoV-2 test is a rapid, real-brooklyn e RT-PCR test intended for th e qualitative detection of nu cleic acid from SARS-CoV-2 in a nasopharyngeal swab specimen collected from individuals suspected of CO VID-19 by their healthcar e provider. This test has been authorized by FDA under an EUA for use by authorized laboratories. This test is only authorized for the duration of the declaration that circumstances exist justifying the authorization of emergency use of in vitro diagnostic tests for detection and/or diagnosis of COVID-19 under Section 564(b)(1) of the Federal Food, Drug and Cosmetic Act, 21 U.S.C. 360bbb- 3(b)(1), unless the authorization is terminated or revoked sooner. Fact Sheet for Healthcare Providers: https://www.Mpax/Documents/Xpert%20Xpress%20SARS%20CoV-2/Fact%20Sheets/302-3802%20SARS-COV -2%20HEALTHCARE%20PROVIDERS%20FACT%20SHEET.pdf Fact Sheet for Healthcare Patients: https://www.iVengo/Documents/Xpert %20Xpress%20SARS%20CoV-2/Fact%20Sheets/302-3801%73GJKA-QXG-2%20PATIENT%20FACT%20 SHEET.pdfCT, BRAIN, WITHOUT IV [id number] 01:07:00Unlisted Reason for Exam - Click Yes and Enter Reason Below->No [facility] 1985 Sex: MFINAL REPORT EXAM/TECHNIQUE: Noncontrast CT of the head. Dose modu lation, iterative reconstruction, and/or weight based adjustment of the mA/kV was utilized to reducethe radiation dose to as low as reasonably achievable. INDICATION: Trauma. COMPARISON: None. FINDINGS: Noble-white differentiation is preserved. No acute intracranial hemorrhage. No extra-axial fluid collection. Ventricles are normal in appearance. Basal cisterns are patent. No midline shift. Cerebellar tonsils are normal in appearance. Orbits are normal. Scattered sinus mucosal disease. Mastoid air cells are clear. No acute osseous processes or suspicious osseous lesion. Midline structures are normal. Visualized face and neck are unremarkable. Impression: No acute intracranial process. Signed: David Cobian MDReport Verified Date/Time: 07/16/2021 01:07:39 RAPID DRUG SCREEN, [id number] 00:50:29 Test Item Value Reference Range Interpretation Comments BARBITURATE URINE (BEAKER) (test Negative Negative code = 725) BENZODIAZEPINE SCREEN URINE (BEAKER) Negative Negative (test code = 726) COCAINE (METAB.) SCREEN (BEAKER) Negative Negative (test code = 1164) METHADONE SCREEN (BEAKER) (test code Negative Negative = 1436) OPIATE SCREEN URINE (BEAKER) (test Negative Negative code = 734) CANNABINOID SCREEN URINE (BEAKER) Positive Negative A (test code = 727) AMPH/METHAMPH SCREEN (BEAKER) (test Negative Negative code = 1438) PHENCYCLIDINE SCREEN URINE (BEAKER) Negative Negative (test code = 608) OXYCODONE SCREEN URINE (BEAKER) Negative Negative (test code = 2761) PH UA (BEAKER) (test code = 467) 6.5 5.0-8.0 DRUG CUTOFF CONC.Methamphetamine 1000 ng/mLCocaine 300 ng/mLCannabinoid 50 ng/mLBenzodiazepine 300 ng/mLTricyclic 1000 ng/wGJneawulwbcb744 ng/mLPhencyclidine 25 ng/mLAmphetamine 1000 ng/mLOpiate 300 ng/mLMethadone 300 ng/mLThis assay provides an unconfirmed qualitative test result for the clinical management of patients in emergency situations. Chain of custody not maintained. Some dwfv-pky-mwtlauj medications, as well as adulterants, may cause inaccurate results. Clinical correlation should be applied. A more comprehensive drug screen or confirmation of a detected drug may be performed uponrequest.RAD, CHEST, 1 VIEW, NON [id number] 00:40:00Reason for exam:->SUICIDALShould this be performed at the bedside?->Yes [facility] : 1985 Sex: MFINAL REPORT EXAM/TECHNIQUE: Single view frontal radiograph of the chest. INDICATION: Suicidal. COMPARISON: None. FINDINGS: Devices/Objects: None. Lungs: No focal consolidation. No pleural effusion. No pneumothorax. Heart/Mediastinum: No cardiomegaly. No interstitial thickening. Osseous: No acute osseous process. No suspicious osseous lesion. Upper abdomen: Unremark able. Impression: No acute cardiopulmonary process. Signed: David Cobian MDReport Verified Date/Time: 07/16/2021 00:40:57 HIGH SENSITIVITY TROPONIN I 2021-07-16 00:39:15 Test Item Value Reference Range Interpretation Comments HIGH SENSITIVITY < pg/ml See_Comment [Automated message] TROPONIN I (test code = The system which 6548032) generated this result transmitted ref erence range: <=53. Th e reference range was not used to interpr et this result as normal/abnormal . The High-Sensitivity Troponin I assay is performed on Siemens [employer] Systems[employer] IM Analyzer. Results of this assay should always be interpreted in conjunction with the patient's medical history, clinical presentation, and other findings.B-TYPE NATRIURETIC FACTOR (BNP)2021-07-16 00:39:09 Test Item Value Reference Range Interpretation Comments B-TYPE NATRIURETIC PEPTIDE (BEAKER) 15 pg/mL 0-100 (test code = 700) BASIC METABOLIC [id number] 00:38:59 Test Item Value Reference Range Interpretation Comments SODIUM (BEAKER) (test 141 meq/L 136-145 code = 381) POTASSIUM (BEAKER) 3.7 meq/L 3.5-5.1 Specimen slightly (test code = 379) hemolyzed CHLORIDE (BEAKER) 106 meq/L 98-107 (test code = 382) CO2 (BEAKER) (test 26 meq/L 22-29 code = 355) BLOOD UREA NITROGEN 8 mg/dL 7-21 (BEAKER) (test code = 354) CREATININE (BEAKER) 0.80 mg/dL 0.57-1.25 Specimen slightly (test code = 358) hemolyzed GLUCOSE RANDOM 105 mg/dL 70-105 (BEAKER) (test code = 652) CALCIUM (BEAKER) 8.4 mg/dL 8.4-10.2 (test code = 697) EGFR (BEAKER) (test INSUFFIC IENT CLINICAL code = 1092) DATA TO CALCULA TE ESTIMATED GFR. CBC W/PLT COUNT & AUTO [id number] 00:19:15 Test Item Value Reference Range Interpretation Comments WHITE BLOOD CELL COUNT (BEAKER) 8.5 K/ L 3.5-10.5 (test code = 775) RED BLOOD CELL COUNT (BEAKER) 4.78 M/ L 4.63-6.08 (test code = 761) HEMOGLOBIN (BEAKER) (test code = 14.1 GM/DL 13.7-17.5 410) HEMATOCRIT (BEAKER) (test code = 43.5 % 40.1-51.0 411) MEAN CORPUSCULAR VOLUME (BEAKER) 91.0 fL 79.0-92.2 (test code = 753) MEAN CORPUSCULAR HEMOGLOBIN 29.5 pg 25.7-32.2 (BEAKER) (test code = 751) MEAN CORPUSCULAR HEMOGLOBIN CONC 32.4 GM/DL 32.3-36.5 (BEAKER) (test code = 752) RED CELL DISTRIBUTION WIDTH 12.6 % 11.6-14.4 (BEAKER) (test code = 412) PLATELET COUNT (BEAKER) (test 332 K/CU MM 150-450 code = 756) MEAN PLATELET VOLUME (BEAKER) 9.4 fL 9.4-12.4 (test code = 754) NEUTROPHILS RELATIVE PERCENT 46 % (BEAKER) (test code = 429) LYMPHOCYTES RELATIVE PERCENT 39 % (BEAKER) (test code = 430) MONOCYTES RELATIVE PERCENT 9 % (BEAKER) (test code = 431) EOSINOPHILS RELATIVE PERCENT 4 % (BEAKER) (test code = 432) BASOPHILS RELATIVE PERCENT 1 % (BEAKER) (test code = 437) NEUTROPHILS ABSOLUTE COUNT 3.90 K/ L 1.78-5.38 (BEAKER) (test code = 670) LYMPHOCYTES ABSOLUTE COUNT 3.28 K/ L 1.32-3.57 (BEAKER) (test code = 414) MONOCYTES ABSOLUTE COUNT (BEAKER) 0.78 K/ L 0.30-0.82 (test code = 415) EOSINOPHILS ABSOLUTE COUNT 0.37 K/ L 0.04-0.54 (BEAKER) (test code = 416) BASOPHILS ABSOLUTE COUNT (BEAKER) 0.08 K/ L 0.01-0.08 (test code = 417) IMMATURE GRANULOCYTES-RELATIVE 1 % 0-1 PERCENT (BEAKER) (test code = 2801) TROPONIN [id number] 18:15:07 Test Item Value Reference Interpretation Comments Range TROPONIN I (test 0.007 ng/mL See_Comment [Automated code = 5375344698) message] The system which generated this result [...] biotin. Lab Interpretation Normal (test code = 94774-2) [facility] (08095)2021-06-05 15:49:57 Test Item Value Reference Range Interpretation Comments NA (test code = 132 mmol/L 135-145 L 2165071365) K (test code = 4.3 mmol/L 3.5-5.0 0367077906) CL (test code = 95 mmol/L 98-108 L 0791473595) CO2 TOTAL (test code = 16 mmol/L 23-31 L 8032230934) AGAP (test code = 2-16 H 0342819324) BUN (test code = 34 mg/dL 7-23 H 4691539314) GLUCOSE (test code = 80 mg/dL 70-110 2670303883) CREATININE (test code = 1.66 mg/dL 0.60-1.25 H 0124017393) TOTAL BILI (test code = 1.1 mg/dL 0.1-1.0 6986336355) CALCIUM (test code = 9.0 mg/dL 8.6-10.6 3600901692) T PROTEIN (test code = 8.1 g/dL 6.3-8.2 0297163708) ALBUMIN (test code = 5.0 g/dL 3.5-5.0 2572969552) ALK PHOS (test code = 92 U/L 34-122 3061405071) ALTv (test code = 50 U/L 5-50 1741-6) AST(SGOT) (test code = 68 U/L 13-40 H 0389805726) eGFR (test code = mL/min/1.73m2 5025974003) TAMIKO (test code = TAMIKO) Association of [...] tests). Lab Interpretation Abnormal (test code = 69756-2) [facility] [id number] 15:49:11 Test Item Value Reference Interpretation Comments Range TROPONIN I (test 0.010 ng/mL See_Comment [Automated code = 7145008311) message] The system which generated this result [...] biotin. Lab Interpretation Normal (test code = 68706-5) [facility] AllenLIP[facility], [id number] 15:37:50 Test Item Value Reference Range Interpretation Comments LIPASE (test code = 1014393816) 233 U/L 0-220 H Lab Interpretation (test code = Abnormal 20374-0) [facility]enaPTT[facility] 15:31:46 Test Item Value Reference Range Interpretation Comments APTT Patient (test See_Comment [Automat ed code = 3173-2) message] The system which generated this result transmitted reference range : 23 - 38 Seconds . The reference range was not used to interpr et this result as normal/abnormal . TAMIKO (test code = TAMIKO) The [facility] patient population mean normal value for aPTT is 30 seconds. Lab Interpretation Normal (test code = 94408-4) [facility] AllenPROTHROMBIN TIME / [id number] 15:29:45 Test Item Value Reference Range Interpretation Comments [...] tions. Lab Interpretation (test Normal code = 39289-6) [facility] WITH [id number] 15:28:44 Test Item Value Reference Range Interpretation Comments WBC (test code = See_Comment H [Automated 1146-2) message] The sy stem which generated this [...] g/dL 12.2-16.4 718-7) HCT (test code = 43.7 % 38.4-49.3 4544-3) MCV (test code = 90.7 fL 81.7-95.6 787-2) MCH (test code = 29.9 pg 26.1-32.7 785-6) MCHC (test code = 33.0 g/dL 31.2-35.0 786-4) RDW-SD (test code = 42.5 fL 38.5-51.6 13295-2) RDW-CV (test code = 13.0 % 12.1-15.4 788-0) PLT (test code = See_Comment [Automated 777-3) message] The sy stem which generated this result transmitted reference range : 150 - 328 10*3/ ?L. The reference r javier was not used to interpret this result as normal/abnormal . MPV (test code = 10.2 fL 9.8-13.0 54233-2) NRBC/100 WBC (test See_Comment [Automat ed code = 2316789400) message] The system which generated this result transmitted reference range : 0.0 - 10.0 /100 WBCs. The refer ence range was not u sed to interpret th is result as normal/abnormal . NRBC x10^3 (test code <0.01 See_Comment [Auto mated = 8945857261) message] The s Rossolinitem which generated this result transmitted reference range : 10*3/?L. The reference range was not used to interpret this result as normal/abnormal . GRAN MAT (NEUT) % 77.1 % (test code = 770-8) IMM GRAN % (test code 0.90 % = 8868622830) LYMPH % (test code = 10.4 % 736-9) MONO % (test code = 10.5 % 5905-5) EOS % (test code = 0.6 % 713-8) BASO % (test code = 0.5 % 706-2) GRAN MAT x10^3(ANC) 9.01 10*3/uL 1.99-6.95 H (test code = 2781991677) IMM GRAN x10^3 (test 0.10 10*3/uL 0.00-0.06 H code = 4999291841) LYMPH x10^3 (test code 1.22 10*3/uL 1.09-3.23 = 731-0) MONO x10^3 (test code 1.23 10*3/uL 0.36-1.02 H = 742-7) EOS x10^3 (test code = 0.07 10*3/uL 0.06-0.53 711-2) BASO x10^3 (test code 0.06 10*3/uL 0.01-0.09 = 704-7) Lab Interpretation Abnormal (test code = 70596-9) [id number] 16:51:13 Test Item Value Reference Interpretation Comments Range TROPONIN I (test 0.005 ng/mL See_Comment [Automated code = 7042057343) message] The system which generated this result [...] biotin. Lab Interpretation Normal (test code = 00917-9) [facility]. METABOLIC PANEL (39033)2021-05-27 16:39:35 Test Item Value Reference Range Interpretation Comments NA (test code = 137 mmol/L 135-145 8251430992) K (test code = 3.7 mmol/L 3.5-5.0 5022340988) CL (test code = 101 mmol/L 98-108 8671640316) CO2 TOTAL (test code = 27 mmol/L 23-31 6218362204) AGAP (test code = 2-16 6079588426) BUN (test code = 9 mg/dL 7-23 1092961786) GLUCOSE (test code = 108 mg/dL 70-110 4183466809) CREATININE (test code = 0.75 mg/dL 0.60-1.25 1205906165) TOTAL BILI (test code = 0.3 mg/dL 0.1-1.9 3552329321) CALCIUM (test code = 8.2 mg/dL 8.6-10.6 L 3146610560) T PROTEIN (test code = 7.0 g/dL 6.3-8.2 0091927516) ALBUMIN (test code = 4.1 g/dL 3.5-5.0 2509841517) ALK PHOS (test code = 74 U/L 34-122 3193653367) ALTv (test code = 27 U/L 5-50 1742-6) AST(SGOT) (test code = 34 U/L 13-40 4875322140) eGFR (test code = mL/min/1.73m2 5492338206) TAMIKO (test code = TAMIKO) Association of [...] tests). Lab Interpretation Abnormal (test code = 86840-5) [id number] 16:39:14 Test Item Value Reference Range Interpretation Comments LIPASE (test code = [id number]) 72 U/L 0-220 Lab Interpretation (test code = Normal 96608-2) [facility]:13 Test Item Value Reference Range Interpretation Comments APTT Patient (test See_Comment [Automat ed code = 3173-2) message] The system which generated this result transmitted reference range : 23 - 38 Seconds . The reference range was not used to interpr et this result as normal/abnormal . TAMIKO (test code = TAMIKO) The [facility] patient population mean normal value for aPTT is 30 seconds. Lab Interpretation Normal (test code = 70638-8) [facility] [id number] 16:32:13 Test Item Value Reference Range Interpretation Comments PROTIME PATIENT (test See_Comment [Auto mated message] code = 5964-2) The system [employer] generated this result transmitted ref erence range: 12.0 - 1 4.7 Seconds. The re ference range was not u sed to interpret this result as normal/abnor mal. INR (test code = 6301-6) Nor mal INR <1.1; Warfarin Therap eutic range 2.0 to 3. 0 or 2.5 to 3.5, dep ending upon the indica tions. Lab Interpretation (test Normal code = 92496-9) [facility] WITH [id number] 16:21:51 Test Item Value Reference Range Interpretation Comments WBC (test code = See_Comment [Automated message] 8290-2) The system [employer] generated this result transmitted ref erence range: 4.20 - 1 0.70 10*3/?L. The re ference range was not u sed to interpret this result as normal/abnor mal. RBC (test code = See_Comment [Automated message] 029-8) The system [employer] generated this result transmitted ref erence range: [...] RDW-SD (test code 42.2 fL 38.5-51.6 = 17214-6) RDW-CV (test code 12.7 % 12.1-15.4 = 788-0) PLT (test code = See_Comment [Automated message] 217-3) The system [employer] generated this result transmitted ref erence range: 150 - 32 8 10*3/?L. The re ference range was not u sed to interpret this result as normal/abnor mal. MPV (test code = 9.9 fL 9.8-13.0 88689-0) NRBC/100 WBC (test See_Comment [Automat ed message] code = 0312484444) The syste m which generated this result transmitted ref erence range: 0.0 - 10 .0 /100 WBCs. The refer ence range was not u sed to interpret this result as normal/abnor mal. NRBC x10^3 (test <0.01 See_Comment [Automated message] code = 3983227640) The syste m which generated this result transmitted ref erence range: 10*3/?L. The reference range was not used to interpr et this result as normal/abnormal . GRAN MAT (NEUT) % 53.0 % (test code = 770-8) IMM GRAN % (test 0.30 % code = 5211069155) LYMPH % (test code 29.5 % = 736-9) MONO % (test code 12.3 % = 5905-5) EOS % (test code = 4.1 % 713-8) BASO % (test code 0.8 % = 706-2) GRAN MAT 3.23 10*3/uL 1.99-6.95 x10^3(ANC) (test code = 3498851366) IMM GRAN x10^3 <0.03 0.00-0.06 (test code = 7623508522) LYMPH x10^3 (test 1.80 10*3/uL 1.09-3.23 code = 731-0) MONO x10^3 (test 0.75 10*3/uL 0.36-1.02 code = 742-7) EOS x10^3 (test 0.25 10*3/uL 0.06-0.53 code = 711-2) BASO x10^3 (test 0.05 10*3/uL 0.01-0.09 code = 704-7) [facility] 18:33:47 Test Item Value Reference Range Interpretation Comments Procalcitonin (test 0.02 ng/mL <0.07 code = 6533838388) TAMIKO (test code = TAMIKO) INTERPRETATION OF [...] lung abscess/empyema. For further information please refer to:[email or web address] Lab Interpretation Normal (test code = 88146-7) [facility] [id number] 13:20:01 Test Item Value Reference Interpretation Comments Range TROPONIN I (test 0.008 ng/mL See_Comment [Automated code = 3384410763) message] The system which generated this result [...] biotin. Lab Interpretation Normal (test code = 41602-8) [facility] [id number] 11:41:12 Test Item Value Reference Interpretation Comments Range TROPONIN I (test 0.007 ng/mL See_Comment [Automated code = 1968937295) message] The system which generated this result [...] biotin. Lab Interpretation Normal (test code = 45853-3) [facility] AllenCREATINE [id number] 11:31:13 Test Item Value Reference Range Interpretation Comments CK (test code = 7161065146) 93 U/L 33-194 Lab Interpretation (test code = Normal 48766-6) [facility] AllenTHYROID STIMULATING [id number] 10:15:06 Test Item Value Reference Range Interpretation Comments TSH (test code = See_Comment [Automated message] 1524330285) The system [employer] generated this result transmitted ref erence range: 0.45 - 4 .70 mIU/L. The refe rence range was not u sed to interpret this result as normal/abnor mal. Lab Interpretation (test Normal code = 80741-0) [facility]-TERMINAL [id number] 09:53:45 Test Item Value Reference Range Interpretation Comments NT-proBNP (test code 175 pg/mL See_Comment H [Autom ated = 8398964516) message] The system which generated this result transmitted reference range : <=125. The reference range was not used to interpret this result as normal/abnormal . TAMIKO (test code = TAMIKO) Biotin has been reported to cause a negative bias, interpret results relative to patient's use of biotin. Lab Interpretation Abnormal (test code = 05222-2) [facility]ETHANOL2021-[facility]-26 09:52:20 Test Item Value Reference Range Interpretation Comments ALCOHOL (test code = <10 mg/dL 5573985479) TAMIKO (test code = TAMIKO) <10 Ugiftikx32-600 Toxic>100 Depression of [employer] MANAGER>400 Fatalities Reported [facility]MAGNESIUM2021-12-26 09:45:24 Test Item Value Reference Range Interpretation Comments MAGNESIUM (test code = 6753630530) 1.3 mg/dL 1.7-2.4 L Lab Interpretation (test code = Abnormal 37035-5) [facility] AllenLIPID PANEL (25410)(TOTAL CHOLESTEROL, TRIGLYCERIDES, HDL)2021-05-05 09:45:24 Test Item Value Reference Range Interpretation Comments CHOL (test code = 206 mg/dL 120-200 H 7280309203) HDL (test code = 29 mg/dL >40 L 4361699523) HDLC RATIO (test code = See_Comment H [Au tomated message] 5139623185) The system [employer] generated this result transmit luis reference range : <=5.0. The refe rence range was not u sed to interpret th is result as normal/abnormal . TRIG (test code = 255 mg/dL 30-170 H 0590095419) LDL CHOL (test code = 126 mg/dL See_Comment [Auto mated message] 25643-1) The system [employer] generated this result transmit luis reference range : <=160. The refe rence range was not u sed to interpret th is result as normal/abnormal . VLDL (test code = 51 mg/dL 5-60 7249798461) Lab Interpretation (test Abnormal code = 63808-4) [facility] AllenPHOSPHORUS2021-12-26 09:45:04 Test Item Value Reference Range Interpretation Comments PHOSPHORUS (test code = 4823634160) 3.6 mg/dL 2.5-5.0 Lab Interpretation (test code = Normal 99832-0) [facility] AllenURIC [id number] 09:44:43 Test Item Value Reference Range Interpretation Comments URIC ACID (test code = 8836798264) 7.8 mg/dL 3.6-8.0 Lab Interpretation (test code = Normal 64556-1) [facility] AllenGLYCOSYLATED HEMOGLOBIN (A1C)2021-05-05 09:09:32 Test Item Value Reference Range Interpretation Comments HGB A1C (test code = 5.7 % 4.0-5.7 4548-4) TAMIKO (test code = TAMIKO) Reference RangesNormal: <5.7%Prediabetes: 5.7 - 6.4%Diabetes: > 6.5% Lab Interpretation (test Normal code = 16497-0) [facility] AllenD-[id number] 04:48:27 Test Item Value Reference Interpretation Comments Range D-DIMER (test code = <0.27 See_Comment [Autom ated 0045043964) message] The system which generated this result [...] diagnosis. Lab Interpretation Normal (test code = 21667-9) [facility] [id number] 03:29:25 Test Item Value Reference Interpretation Comments Range TROPONIN I (test 0.018 ng/mL See_Comment [Automated code = 4266142683) message] The system which generated this result [...] biotin. Lab Interpretation Normal (test code = 07097-6) [facility] [id number] 01:09:37 Test Item Value Reference Interpretation Comments Range TROPONIN I (test 0.005 ng/mL See_Comment [Automated code = 7100776255) message] The system which generated this result [...] biotin. Lab Interpretation Normal (test code = 67854-6) [facility]. METABOLIC PANEL (78622)2021-05-05 00:57:59 Test Item Value Reference Range Interpretation Comments NA (test code = 135 mmol/L 135-145 2501366432) K (test code = 3.8 mmol/L 3.5-5.0 9820879070) CL (test code = 102 mmol/L 98-108 6268900950) CO2 TOTAL (test code 23 mmol/L 23-31 = 6150193852) AGAP (test code = 2-16 2844531880) BUN (test code = 12 mg/dL 7-23 2555915389) GLUCOSE (test code = 92 mg/dL 70-110 7016217153) CREATININE (test code 0.71 mg/dL 0.60-1.25 = 6332412206) TOTAL BILI (test code 0.5 mg/dL 0.1-1.1 = 3955774812) CALCIUM (test code = 9.0 mg/dL 8.6-10.6 8738372549) T PROTEIN (test code 7.4 g/dL 6.3-8.2 = 8343966823) ALBUMIN (test code = 4.4 g/dL 3.5-5.0 8085009407) ALK PHOS (test code = 67 U/L 34-122 7141193149) ALTv (test code = 28 U/L 5-50 1742-6) AST(SGOT) (test code 32 U/L 13-40 = 8877856832) eGFR (test code = mL/min/1.73m2 9281264327) TAMIKO (test code = TAMIKO) Association of [...] or urine or abnormalities in imaging tests). [facility] AllenLIPASE, [id number] 00:57:39 Test Item Value Reference Range Interpretation Comments LIPASE (test code = 1653321451) 65 U/L 0-220 Lab Interpretation (test code = Normal 66118-0) [facility] AllenaPTT2021-[facility] 00:54:59 Test Item Value Reference Range Interpretation Comments APTT Patient (test See_Comment [Automat ed code = 3173-2) message] The system which generated this result transmitted reference range : 23 - 38 Seconds . The reference range was not used to interpr et this result as normal/abnormal . TAMIKO (test code = TAMIKO) The [facility] patient population mean normal value for aPTT is 30 seconds. Lab Interpretation Normal (test code = 34804-7) [facility] AllenPROTHROMBIN TIME / [id number] 00:52:58 Test Item Value Reference Range Interpretation [...] tions. Lab Interpretation (test Normal code = 66359-9) [facility] WITH [id number] 00:46:38 Test Item Value Reference Range Interpretation Comments WBC (test code = See_Comment [Automated 4890-2) message] The sy stem which generated this result transmitted reference range : 4.20 - 10.70 10*3/?L. The reference range was not used to interpret this result as normal/abnormal . RBC (test code = See_Comment [Automated 719-8) message] The sy stem which generated this [...] RDW-SD (test code = 41.9 fL 38.5-51.6 17855-9) RDW-CV (test code = 12.7 % 12.1-15.4 788-0) PLT (test code = See_Comment H [Automated 577-3) message] The sy stem which generated this result transmitted reference range : 150 - 328 10*3/ ?L. The reference r javier was not used to interpret this result as normal/abnormal . MPV (test code = 9.9 fL 9.8-13.0 11093-2) NRBC/100 WBC (test See_Comment [Automat ed code = 5449181540) message] The system which generated this result transmitted reference range : 0.0 - 10.0 /100 WBCs. The refer ence range was not u sed to interpret th is result as normal/abnormal . NRBC x10^3 (test code <0.01 See_Comment [Auto mated = 4707109615) message] The s ystem which generated this result transmitted reference range : 10*3/?L. The reference range was not used to interpret this result as normal/abnormal . GRAN MAT (NEUT) % 62.3 % (test code = 770-8) IMM GRAN % (test code 0.30 % = 6412576090) LYMPH % (test code = 24.9 % 736-9) MONO % (test code = 9.9 % 5905-5) EOS % (test code = 1.6 % 713-8) BASO % (test code = 1.0 % 706-2) GRAN MAT x10^3(ANC) 5.68 10*3/uL 1.99-6.95 (test code = 8170917497) IMM GRAN x10^3 (test 0.03 10*3/uL 0.00-0.06 code = 8106843139) LYMPH x10^3 (test code 2.27 10*3/uL 1.09-3.23 = 731-0) MONO x10^3 (test code 0.90 10*3/uL 0.36-1.02 = 742-7) EOS x10^3 (test code = 0.15 10*3/uL 0.06-0.53 711-2) BASO x10^3 (test code 0.09 10*3/uL 0.01-0.09 = 704-7) Lab Interpretation Abnormal (test code = 64843-4) [facility]KUSHALFORMERLY [facility] [id number] 14:27:27 Test Item Value Reference Interpretation Comments Range TROPONIN I (test 0.002 ng/mL See_Comment [Automated code = 7401520046) message] The system which generated this result [...] biotin. Lab Interpretation Normal (test code = 21173-5) [facility] AllenD-[id number] 14:25:35 Test Item Value Reference Interpretation Comments Range D-DIMER (test code = See_Comment [Autom ated 1658963199) message] The system which generated this result [...] diagnosis. Lab Interpretation Normal (test code = 78407-0) [facility]N-TERMINAL [id number] 14:22:27 Test Item Value Reference Range Interpretation Comments NT-proBNP (test code 29 pg/mL See_Comment [Autom ated = 9616490894) message] The system which generated this result transmitted reference range : <=125. The reference range was not used to interpret this result as normal/abnormal . TAMIKO (test code = TAMIKO) Biotin has been reported to cause a negative bias, interpret results relative to patient's use of biotin. Lab Interpretation Normal (test code = 59806-7) [facility] AllenLIPID PANEL (27314)(TOTAL CHOLESTEROL, TRIGLYCERIDES, HDL)2021-02-18 14:14:32 Test Item Value Reference Range Interpretation Comments CHOL (test code = 209 mg/dL 120-200 H 5922387484) HDL (test code = 30 mg/dL >40 L 6548074905) HDLC RATIO (test code = See_Comment H [Au tomated message] 9671957533) The system [employer] generated this result transmit luis reference range : <=5.0. The refe rence range was not u sed to interpret th is result as normal/abnormal . TRIG (test code = 143 mg/dL 30-170 0181416317) LDL CHOL (test code = 150 mg/dL See_Comment [Auto mated message] 52866-1) The system [employer] generated this result transmit luis reference range : <=160. The refe rence range was not u sed to interpret th is result as normal/abnormal . VLDL (test code = 29 mg/dL 5-60 9306617426) Lab Interpretation (test Abnormal code = 49813-6) [facility]COMP. METABOLIC PANEL (36744)2021-02-18 14:14:11 Test Item Value Reference Range Interpretation Comments NA (test code = 139 mmol/L 135-145 9902602403) K (test code = 4.7 mmol/L 3.5-5.0 6382742075) CL (test code = 104 mmol/L 98-108 9843857813) CO2 TOTAL (test code 30 mmol/L 23-31 = 6675648542) AGAP (test code = 2-16 8896730578) BUN (test code = 12 mg/dL 7-23 1583451751) GLUCOSE (test code = 102 mg/dL 70-110 4780999914) CREATININE (test code 0.78 mg/dL 0.60-1.25 = 7366279863) TOTAL BILI (test code 0.3 mg/dL 0.1-1.1 = 4686908155) CALCIUM (test code = 9.5 mg/dL 8.6-10.6 5850112337) T PROTEIN (test code 7.4 g/dL 6.3-8.2 = 8778684495) ALBUMIN (test code = 4.3 g/dL 3.5-5.0 0503192829) ALK PHOS (test code = 61 U/L 34-122 5283782126) ALTv (test code = 27 U/L 5-50 1742-6) AST(SGOT) (test code 26 U/L 13-40 = 3345080905) eGFR (test code = mL/min/1.73m2 7532164544) TAMIKO (test code = TAMIKO) Association of [...] or urine or abnormalities in imaging tests). [facility]UM2021-10-11 14:14:11 Test Item Value Reference Range Interpretation Comments MAGNESIUM (test code = 7320516788) 1.8 mg/dL 1.7-2.4 Lab Interpretation (test code = Normal 49090-9) [facility] WITH [id number] 13:51:29 Test Item Value Reference Range Interpretation Comments WBC (test code = See_Comment [Automated message] 6690-2) The system [employer] generated this result transmitted ref erence range: 4.20 - 1 0.70 10*3/?L. The re ference range was not u sed to interpret this result as normal/abnor mal. RBC (test code = See_Comment [Automated message] 789-8) The system [employer] generated this result transmitted ref erence range: [...] RDW-SD (test code 43.3 fL 38.5-51.6 = 11421-2) RDW-CV (test code 13.0 % 12.1-15.4 = 788-0) PLT (test code = See_Comment [Automated message] 777-3) The system [employer] generated this result transmitted ref erence range: 150 - 32 8 10*3/?L. The re ference range was not u sed to interpret this result as normal/abnor mal. MPV (test code = 10.2 fL 9.8-13.0 57290-3) NRBC/100 WBC (test See_Comment [Automat ed message] code = 7794705904) The syste [employer] which generated this result transmitted ref erence range: 0.0 - 10 .0 /100 WBCs. The refer ence range was not u sed to interpret this result as normal/abnor mal. NRBC x10^3 (test <0.01 See_Comment [Automated message] code = 6442427571) The syste m which generated this result transmitted ref erence range: 10*3/?L. The reference range was not used to interpr et this result as normal/abnormal . GRAN MAT (NEUT) % 50.8 % (test code = 770-8) IMM GRAN % (test 0.70 % code = 3711603817) LYMPH % (test code 29.1 % = 736-9) MONO % (test code 12.4 % = 5905-5) EOS % (test code = 6.2 % 713-8) BASO % (test code 0.8 % = 706-2) GRAN MAT 3.71 10*3/uL 1.99-6.95 x10^3(ANC) (test code = 7991671677) IMM GRAN x10^3 0.05 10*3/uL 0.00-0.06 (test code = 0732796657) LYMPH x10^3 (test 2.13 10*3/uL 1.09-3.23 code = 731-0) MONO x10^3 (test 0.91 10*3/uL 0.36-1.02 code = 742-7) EOS x10^3 (test 0.45 10*3/uL 0.06-0.53 code = 711-2) BASO x10^3 (test 0.06 10*3/uL 0.01-0.09 code = 704-7) [facility]. METABOLIC PANEL (59412)2021-01-24 14:53:54 Test Item Value Reference Range Interpretation Comments NA (test code = 137 mmol/L 135-145 4919638355) K (test code = 4.5 mmol/L 3.5-5.0 0329010838) CL (test code = 100 mmol/L 98-108 9255829235) CO2 TOTAL (test code 29 mmol/L 23-31 = 7237720247) AGAP (test code = 2-16 8217580735) BUN (test code = 16 mg/dL 7-23 8930118616) GLUCOSE (test code = 94 mg/dL 70-110 8335171718) CREATININE (test code 0.86 mg/dL 0.60-1.25 = 5692494603) TOTAL BILI (test code 0.5 mg/dL 0.1-1.1 = 9621937249) CALCIUM (test code = 9.7 mg/dL 8.6-10.6 8713477451) T PROTEIN (test code 8.0 g/dL 6.3-8.2 = 8895845393) ALBUMIN (test code = 4.5 g/dL 3.5-5.0 1759516921) ALK PHOS (test code = 64 U/L 34-122 6098513537) ALTv (test code = 21 U/L 5-50 1742-6) AST(SGOT) (test code 37 U/L 13-40 = 5531375157) eGFR (test code = mL/min/1.73m2 8605853427) TAMIKO (test code = TAMIKO) Association of [...] or urine or abnormalities in imaging tests). [facility]. METABOLIC PANEL (40092)2021-01-24 14:53:54 Test Item Value Reference Range Interpretation Comments NA (test code = 137 mmol/L 135-145 2116267092) K (test code = 4.5 mmol/L 3.5-5.0 1271579174) CL (test code = 100 mmol/L 98-108 2207616382) CO2 TOTAL (test code 29 mmol/L 23-31 = 6839787037) AGAP (test code = 2-16 5745999541) BUN (test code = 16 mg/dL 7-23 9116419247) GLUCOSE (test code = 94 mg/dL 70-110 7815747221) CREATININE (test code 0.86 mg/dL 0.60-1.25 = 7344076861) TOTAL BILI (test code 0.5 mg/dL 0.1-1.1 = 8955244206) CALCIUM (test code = 9.7 mg/dL 8.6-10.6 8532520436) T PROTEIN (test code 8.0 g/dL 6.3-8.2 = 4895520828) ALBUMIN (test code = 4.5 g/dL 3.5-5.0 7158181051) ALK PHOS (test code = 64 U/L 34-122 8756352599) ALTv (test code = 21 U/L 5-50 1742-6) AST(SGOT) (test code 37 U/L 13-40 = 4318862457) eGFR (test code = mL/min/1.73m2 6171346668) TAMIKO (test code = TAMIKO) Association of [...] or urine or abnormalities in imaging tests). [facility] WITH [id number] 14:39:54 Test Item Value Reference Range Interpretation Comments WBC (test code = See_Comment [Automated 2390-2) message] The sy stem which generated this result transmitted reference range : 4.20 - 10.70 10*3/?L. The reference range was not used to interpret this result as normal/abnormal . RBC (test code = See_Comment [Automated 739-8) message] The sy stem which generated this [...] RDW-SD (test code = 44.4 fL 38.5-51.6 38869-1) RDW-CV (test code = 13.2 % 12.1-15.4 788-0) PLT (test code = See_Comment [Automated 777-3) message] The sy stem which generated this result transmitted reference range : 150 - 328 10*3/ ?L. The reference r javier was not used to interpret this result as normal/abnormal . MPV (test code = 10.7 fL 9.8-13.0 03972-3) NRBC/100 WBC (test See_Comment [Automat ed code = 3709727582) message] The system which generated this result transmitted reference range : 0.0 - 10.0 /100 WBCs. The refer ence range was not u sed to interpret th is result as normal/abnormal . NRBC x10^3 (test code <0.01 See_Comment [Auto mated = 3688874341) message] The s ystem which generated this result transmitted reference range : 10*3/?L. The reference range was not used to interpret this result as normal/abnormal . GRAN MAT (NEUT) % 54.9 % (test code = 770-8) IMM GRAN % (test code 0.50 % = 9769651555) LYMPH % (test code = 24.0 % 736-9) MONO % (test code = 16.5 % 5905-5) EOS % (test code = 3.5 % 713-8) BASO % (test code = 0.6 % 706-2) GRAN MAT x10^3(ANC) 3.58 10*3/uL 1.99-6.95 (test code = 9643572577) IMM GRAN x10^3 (test 0.03 10*3/uL 0.00-0.06 code = 5585729073) LYMPH x10^3 (test code 1.57 10*3/uL 1.09-3.23 = 731-0) MONO x10^3 (test code 1.08 10*3/uL 0.36-1.02 H = 742-7) EOS x10^3 (test code = 0.23 10*3/uL 0.06-0.53 711-2) BASO x10^3 (test code 0.04 10*3/uL 0.01-0.09 = 704-7) Lab Interpretation Abnormal (test code = 62232-1) [facility] WITH [id number] 14:39:54 Test Item Value Reference Range Interpretation Comments WBC (test code = See_Comment [Automated 5490-2) message] The sy stem which generated this [...] RDW-SD (test code = 44.4 fL 38.5-51.6 79627-9) RDW-CV (test code = 13.2 % 12.1-15.4 788-0) PLT (test code = See_Comment [Automated 777-3) message] The sy stem which generated this result transmitted reference range : 150 - 328 10*3/ ?L. The reference r javier was not used to interpret this result as normal/abnormal . MPV (test code = 10.7 fL 9.8-13.0 54271-6) NRBC/100 WBC (test See_Comment [Automat ed code = 7866133023) message] The system which generated this result transmitted reference range : 0.0 - 10.0 /100 WBCs. The refer ence range was not u sed to interpret th is result as normal/abnormal . NRBC x10^3 (test code <0.01 See_Comment [Auto mated = 7166953137) message] The s ystem which generated this result transmitted reference range : 10*3/?L. The reference range was not used to interpret this result as normal/abnormal . GRAN MAT (NEUT) % 54.9 % (test code = 770-8) IMM GRAN % (test code 0.50 % = 8924594375) LYMPH % (test code = 24.0 % 736-9) MONO % (test code = 16.5 % 5905-5) EOS % (test code = 3.5 % 713-8) BASO % (test code = 0.6 % 706-2) GRAN MAT x10^3(ANC) 3.58 10*3/uL 1.99-6.95 (test code = 9025408067) IMM GRAN x10^3 (test 0.03 10*3/uL 0.00-0.06 code = 7879324976) LYMPH x10^3 (test code 1.57 10*3/uL 1.09-3.23 = 731-0) MONO x10^3 (test code 1.08 10*3/uL 0.36-1.02 H = 742-7) EOS x10^3 (test code = 0.23 10*3/uL 0.06-0.53 711-2) BASO x10^3 (test code 0.04 10*3/uL 0.01-0.09 = 704-7) Lab Interpretation Abnormal (test code = 33778-1) [facility] - COMPREHENSIVE DRUG SCREEN W/O [id number] 14:38:57 Test Item Value Reference Range Interpretation Comments AMPHET (test code = Negative Negative 3200600985) CLAUDIA U (test code = Negative Negative 0056161185) BENZO U (test code = Negative Negative 8157157591) Cocaine Metabolite (test Negative Negative code = 6543770128) METHADONE (test code = Negative Negative 3613098903) OPIATES (test code = Negative Negative 2400992817) PCP (test code = Negative Negative 9743076661) THC (test code = Negative Negative 0248587882) TAMIKO (test code = TAMIKO) Urine Drug [...] testing). Lab Interpretation (test Normal code = 03208-2) [facility] ([facility] NOW RAPID TESTING)2020-12-07 14:31:11 Test Item Value Reference Range Interpretation Comments SARS-CoV-2 Rapid ID NOW Not Detected Not Detected (test code = 23284-2) TAMIKO (test code = TAMIKO) ID NOW COVID-19 Assay is an isothermal nucleic acid amplification test intended for the qualitative detection of nucleic acid from SARS-CoV-2 viral RNA in nasopharyngeal (SUPERINTENDENT AMMUNITION STORAGE) specimens. It is used under Emergency Use [...] indicated. Lab Interpretation Normal (test code = 83578-7) [facility] AllenAD OR C [id number] 14:23:50 Test Item Value Reference Range Interpretation Comments RSV Antigen (test code = 1163697135) Negative Negative Lab Interpretation (test code = Normal 61732-8) [facility]IN[facility]IS2021-07-30 14:10:55 Test Item Value Reference Range Interpretation Comments APPEARANCE (test code = Clear Clear 1203203350) COLOR (test code = Yellow Yellow 7828723582) PH (test code = 4.8-8.0 6311397630) SP GRAVITY (test code = 1.003-1.030 2415560148) GLU U QUAL (test code = Normal Normal 1862950903) BLOOD (test code = Negative Negative 7574878625) KETONES (test code = Negative Negative 0023538539) PROTEIN (test code = Negative Negative 2887-8) UROBILIN (test code = Normal Normal 0661782127) BILIRUBIN (test code = Negative Negative 3470017358) NITRITE (test code = Negative Negative 0625151828) LEUK GINO (test code = Negative Negative 4371542931) RBC/HPF (test code = See_Comment [Autom ated message] 3937141181) The system [employer] generated this result transmitted ref erence range: 0 - 3 HP F. The reference range was not used to int erpret this result as normal/abnormal . WBC/HPF (test code = See_Comment [Autom ated message] 3752873035) The system [employer] generated this result transmitted ref erence range: 0 - 5 HP F. The reference range was not used to int erpret this result as normal/abnormal . BACTERIA (test code = Negative Negative 5833306264) Lab Interpretation (test Normal code = 95228-7) [facility]. METABOLIC PANEL (84534)2020-12-07 14:10:04 Test Item Value Reference Range Interpretation Comments NA (test code = 142 mmol/L 135-145 8617402707) K (test code = 4.3 mmol/L 3.5-5.0 9304598407) CL (test code = 106 mmol/L 98-108 4717666876) CO2 TOTAL (test code = 23 mmol/L 23-31 2496577362) AGAP (test code = 2-16 1075987802) BUN (test code = 15 mg/dL 7-23 7067808141) GLUCOSE (test code = 94 mg/dL 70-110 4818631987) CREATININE (test code = 0.70 mg/dL 0.60-1.25 7795492687) TOTAL BILI (test code = 0.5 mg/dL 0.1-1.0 6319874508) CALCIUM (test code = 9.7 mg/dL 8.6-10.6 4608838045) T PROTEIN (test code = 8.3 g/dL 6.3-8.2 H 9680136470) ALBUMIN (test code = 4.8 g/dL 3.5-5.0 6737973716) ALK PHOS (test code = 62 U/L 34-122 1214517759) ALTv (test code = 31 U/L 5-50 1742-6) AST(SGOT) (test code = 84 U/L 13-40 H 2381232661) eGFR (test code = mL/min/1.73m2 0071511581) TAMIKO (test code = TAMIKO) Association of [...] tests). Lab Interpretation Abnormal (test code = 81367-2) [facility] Test Item Value Reference Range Interpretation Comments LIPASE (test code = 2713074404) 171 U/L 0-220 Lab Interpretation (test code = Normal 19453-1) [facility] [id number] 13:59:24 Test Item Value Reference Range Interpretation Comments WBC (test code = See_Comment [Automated message] 6690-2) The system [employer] generated this result transmitted ref erence range: 4.20 - 1 0.70 10*3/?L. The re ference range was not u sed to interpret this result as normal/abnor mal. RBC (test code = See_Comment [Automated message] 789-8) The system [employer] generated this result transmitted ref erence range: [...] RDW-SD (test code 45.8 fL 38.5-51.6 = 70234-3) RDW-CV (test code 13.5 % 12.1-15.4 = 788-0) PLT (test code = See_Comment [Automated message] 777-3) The system [employer] h generated this result transmitted ref erence range: 150 - 32 8 10*3/?L. The re ference range was not u sed to interpret this result as normal/abnor mal. MPV (test code = 11.0 fL 9.8-13.0 50138-6) NRBC/100 WBC (test See_Comment [Automat ed message] code = 4143147534) The syste m which generated this result transmitted ref erence range: 0.0 - 10 .0 /100 WBCs. The refer ence range was not u sed to interpret this result as normal/abnor mal. NRBC x10^3 (test <0.01 See_Comment [Automated message] code = 6609843232) The syste m which generated this result transmitted ref erence range: 10*3/?L. The reference range was not used to interpr et this result as normal/abnormal . GRAN MAT (NEUT) % 47.3 % (test code = 770-8) IMM GRAN % (test 0.20 % code = 2112752818) LYMPH % (test code 33.4 % = 736-9) MONO % (test code 13.0 % = 5905-5) EOS % (test code = 5.2 % 713-8) BASO % (test code 0.9 % = 706-2) GRAN MAT 3.08 10*3/uL 1.99-6.95 x10^3(ANC) (test code = 7550481519) IMM GRAN x10^3 <0.03 0.00-0.06 (test code = 8793747981) LYMPH x10^3 (test 2.18 10*3/uL 1.09-3.23 code = 731-0) MONO x10^3 (test 0.85 10*3/uL 0.36-1.02 code = 742-7) EOS x10^3 (test 0.34 10*3/uL 0.06-0.53 code = 711-2) BASO x10^3 (test 0.06 10*3/uL 0.01-0.09 code = 704-7) [facility] [id number] 15:23:58COVID DMT InterpretationInterpretation/Recommendations: Molecular NAAT Tests for [...] testing the patient has had at [facility], including molecular NAAT testing (more commonly known as PCR testing and Rapid ID Now testing) and antibody testing. It does not take into account any testing that a patient has had outside of the [facility] medical record. [facility] LABORATORY SERVICESCOVID Resul [id number] Rapid ID NOW (no units) ? ? Date ? Value ? 10/24/2020 ? Not Detected ? ? ? 07/28/2020 ? Not Detected ? [facility] COMP. METABOLIC PANEL (77618)2020-10-26 12:44:29 Test Item Value Reference Range Interpretation Comments NA (test code = 135 mmol/L 135-145 3592893559) K (test code = 4.2 mmol/L 3.5-5.0 8576466815) CL (test code = 101 mmol/L 98-108 0906582256) CO2 TOTAL (test code = 25 mmol/L 23-31 5980625056) AGAP (test code = 2-16 5874510479) BUN (test code = 7 mg/dL 7-23 6556379592) GLUCOSE (test code = 84 mg/dL 70-110 1118671452) CREATININE (test code = 0.69 mg/dL 0.60-1.25 3906333348) TOTAL BILI (test code = 0.8 mg/dL 0.1-1.2 9125095637) CALCIUM (test code = 9.0 mg/dL 8.6-10.6 0035651755) T PROTEIN (test code = 6.3 g/dL 6.3-8.2 9446606049) ALBUMIN (test code = 3.5 g/dL 3.5-5.0 6176647982) ALK PHOS (test code = 83 U/L 34-122 6620443316) ALTv (test code = 37 U/L 5-50 1742-6) AST(SGOT) (test code = 45 U/L 13-40 H 5599886673) eGFR (test code = mL/min/1.73m2 6235908670) TAMIKO (test code = TAMIKO) Association of [...] tests). Lab Interpretation Abnormal (test code = 29605-7) [facility] 15:46:06 Test Item Value Reference Range Interpretation Comments MAGNESIUM (test code = 0633470592) 1.4 mg/dL 1.7-2.4 L Lab Interpretation (test code = Abnormal 62950-5) [facility] METABOLIC PANEL (NA, K, CL, CO2, GLUCOSE, BUN, CREATININE, CA)2020-10-25 15:45:46 Test Item Value Reference Range Interpretation Comments NA (test code = 135 mmol/L 135-145 5248849640) K (test code = 3.1 mmol/L 3.5-5.0 L 6764239536) CL (test code = 106 mmol/L 98-108 8963818176) CO2 TOTAL (test code = 24 mmol/L 23-31 9343780583) AGAP (test code = 2-16 9771018004) BUN (test code = 4 mg/dL 7-23 L 3141253605) GLUCOSE (test code = 99 mg/dL 70-110 8566954320) CREATININE (test code = 0.61 mg/dL 0.60-1.25 1886690539) CALCIUM (test code = 7.4 mg/dL 8.6-10.6 L 4018474360) eGFR (test code = mL/min/1.73m2 1784364650) TAMIKO (test code = TAMIKO) Association of [...] tests). Lab Interpretation Abnormal (test code = 11223-0) [facility] ABDOMEN [id number] 23:59:57No evidence of acute sonographic abnormalities in [...] portalvenous waveform in the main portal vein. [facility], Radiant Results Inft User - 10/24/2020 7:01 [...] acute sonographic abnormalities in the abdomen.RL: 135 [facility] [id number] 17:24:18 Test Item Value Reference Range Interpretation Comments TROPONIN I (test 0.007 ng/mL See_Comment [Automated code = 2864427195) message] The system which generated this result [...] ? Lab Interpretation Normal (test code = 43401-1) [facility]-16 14:02:13 Test Item Value Reference Range Interpretation Comments MAGNESIUM (test code = 7052082703) 1.9 mg/dL 1.7-2.4 Lab Interpretation (test code = Normal 37818-9) [facility] AllenCritical [id number] 13:45:35Jennifer Shea MD ? ? 10/24/2020 ?8:45 [...] patient's response to treatment and examination of patientUnStephens Memorial HospitalFR [id number] 13:37:55 Test Item Value Reference Range Interpretation Comments FREE T4 (test code = See_Comment [Autom ated message] 7287336218) The system [employer] generated this result transmitted ref erence range: 0.78 - 2 .20 ng/dL:. The ref erence range was not u sed to interpret this result as normal/abnor mal. Lab Interpretation (test Normal code = 29279-2) [facility] AllenTHYROID STIMULATING [id number] 13:21:08 Test Item Value Reference Range Interpretation Comments TSH (test code = See_Comment [Automated message] 9871694730) The system [employer] generated this result transmitted ref erence range: 0.45 - 4 .70 mIU/L. The refe rence range was not u sed to interpret this result as normal/abnor mal. Lab Interpretation (test Normal code = 75161-5) [facility] AllenCOVID-[facility] (ID NOW RAPID TESTING)2020-10-24 13:06:12 Test Item Value Reference Range Interpretation Comments SARS-CoV-2 Rapid ID NOW Not Detected Not Detected (test code = 88774-5) TAMIKO (test code = TAMIKO) ID NOW COVID-19 Assay is an isothermal nucleic acid amplification test intended for the qualitative detection of nucleic acid from SARS-CoV-2 viral RNA in nasopharyngeal (SUPERINTENDENT AMMUNITION STORAGE) specimens. It is used under Emergency Use [...] indicated. Lab Interpretation Normal (test code = 84965-0) [facility] AllenTROPONIN [id number] 13:00:47 Test Item Value Reference Range Interpretation Comments TROPONIN I (test 0.017 ng/mL See_Comment [Automated code = 1582073217) message] The system which generated this result [...] ? Lab Interpretation Normal (test code = 89850-7) [facility] AllenN-TERMINAL [id number] 12:54:30 Test Item Value Reference Range Interpretation Comments NT-proBNP (test code 22 pg/mL See_Comment [Autom ated = 7951504424) message] The system which generated this result transmitted reference range : <=125. The reference range was not used to interpret this result as normal/abnormal . TAMIKO (test code = TAMIKO) Biotin has been reported to cause a negative bias, interpret results relative to patient's use of biotin. Lab Interpretation Normal (test code = 72579-5) [facility] AllenETHANOL2021-06-16 12:51:47 Test Item Value Reference Range Interpretation Comments ALCOHOL (test code = 284 mg/dL 2523445538) TAMIKO (test code = TAMIKO) <10 Hbdzqbut14-721 Toxic>100 Depression of [employer]>400 Fatalities Reported [facility] AllenCREATINE [id number] 12:51:07 Test Item Value Reference Range Interpretation Comments CK (test code = 3021291618) 744 U/L 33-194 H Lab Interpretation (test code = Abnormal 77660-5) [facility] AllenLIPASE2021-[facility]-16 12:51:07 Test Item Value Reference Range Interpretation Comments LIPASE (test code = 9061770768) 92 U/L 0-220 Lab Interpretation (test code = Normal 27891-2) [facility] AllenCOMP. METABOLIC PANEL (35989)2020-10-24 12:49:29 Test Item Value Reference Range Interpretation Comments NA (test code = 144 mmol/L 135-145 4331963972) K (test code = 3.5 mmol/L 3.5-5.0 8215474076) CL (test code = 98 mmol/L 98-108 6019302953) CO2 TOTAL (test code = 29 mmol/L 23-31 3449602760) AGAP (test code = 2-16 H 8605180968) BUN (test code = 7 mg/dL 7-23 8634543049) GLUCOSE (test code = 148 mg/dL 70-110 H 0072608644) CREATININE (test code = 0.84 mg/dL 0.60-1.25 8527950780) TOTAL BILI (test code = 0.4 mg/dL 0.1-1.5 4515621170) CALCIUM (test code = 9.1 mg/dL 8.6-10.6 5467959813) T PROTEIN (test code = 7.6 g/dL 6.3-8.2 1520029663) ALBUMIN (test code = 4.5 g/dL 3.5-5.0 2500140153) ALK PHOS (test code = 89 U/L 34-122 9526403972) ALTv (test code = 49 U/L 5-50 1742-6) AST(SGOT) (test code = 75 U/L 13-40 H 1063172424) eGFR (test code = mL/min/1.73m2 3928945887) TAMIKO (test code = TAMIKO) Association of [...] tests). Lab Interpretation Abnormal (test code = 21043-8) [facility]CT [facility] [id number] 12:44:11 No pulmonary embolism to the level of the subsegmental branches. Mild congestion/atelectatic changes are seen in the anterior right upperlobe, nonspecific but could be a sign of viral infection/bronchitis. Pleasecorrelate. Preliminary Report Dictated by Resident: Mary Campuzano ?MD. Chloé, have reviewed this study and agree with [...] reviewed this study and agree with theabove report.[facility]INE DRUG (IMMUNOASSAY) - COMPREHENSIVE DRUG [id number] 12:36:45 Test Item Value Reference Range Interpretation Comments AMPHET (test code = Negative Negative 6046352721) CLAUDIA U (test code = Negative Negative 1343487123) BENZO U (test code = Presumptive Positive Negative A 4179018810) Cocaine Metabolite (test Negative Negative code = 7156155793) METHADONE (test code = Negative Negative 2043166811) OPIATES (test code = Negative Negative 5538821651) PCP (test code = Negative Negative 2725486210) THC (test code = Negative Negative 1008683001) TAMIKO (test code = TAMIKO) Urine Drug [...] testing). Lab Interpretation (test Abnormal code = 52260-6) [facility]URINALYSIS2021-06-16 12:18:19 Test Item Value Reference Range Interpretation Comments APPEARANCE (test code = Clear Clear 1927163035) COLOR (test code = Yellow Yellow 0135158808) PH (test code = 4.8-8.0 8532681743) SP GRAVITY (test code = 1.003-1.030 H 4813034200) GLU U QUAL (test code = Normal Normal 8453450987) BLOOD (test code = 1+ Negative A 9357505171) KETONES (test code = Negative Negative 7030918540) PROTEIN (test code = 100 mg/dL Negative A 2887-8) UROBILIN (test code = Normal Normal 1517516578) BILIRUBIN (test code = Negative Negative 9372186261) NITRITE (test code = Negative Negative 9534400745) LEUK GINO (test code = Negative Negative 0685465772) RBC/HPF (test code = See_Comment [Autom ated message] 7989192566) The system [employer] generated this result transmit luis reference range : 0 - 3 HPF. The refe rence range was not u sed to interpret th is result as normal/abnormal . WBC/HPF (test code = See_Comment [Autom ated message] 5328914486) The system [employer] generated this result transmit luis reference range : 0 - 5 HPF. The refe rence range was not u sed to interpret th is result as normal/abnormal . BACTERIA (test code = Few Negative A 3897968707) MUCOUS (test code = Slight Negative LPF A 1223063841) SQ EPITH (test code = <1 HPF 3791309357) HYAL CAST (test code = See_Comment H [Aut omated message] 2231850715) The system [employer] generated this result transmit luis reference range : <=2 LPF. The refere nce range was not u sed to interpret th is result as normal/abnormal . GRAN CASTS (test code = See_Comment H [Au tomated message] 3213696576) The system [employer] generated this result transmit luis reference range : <=1 LPF. The refere nce range was not u sed to interpret th is result as normal/abnormal . Lab Interpretation (test Abnormal code = 13986-3) [facility] AllenD-[id number] 12:16:48 Test Item Value Reference Interpretation Comments Range D-DIMER (test code = See_Comment H [Autom ated 0723162234) message] The system which generated this result [...] diagnosis. Lab Interpretation Abnormal (test code = 83060-8) [facility] AllenACTIVATED PARTIAL THRMPLAS [id number] 12:10:05 Test Item Value Reference Range Interpretation Comments APTT Patient (test See_Comment [Automat ed code = 3173-2) message] The system which generated this result transmitted reference range : 23 - 38 Seconds . The reference range was not used to interpr et this result as normal/abnormal . TAMIKO (test code = TAMIKO) The [facility] patient population mean normal value for aPTT is 30 seconds. Lab Interpretation Normal (test code = 16525-9) [facility] AllenPROTHROMBIN TIME / [id number] 12:08:09 Test Item Value Reference Range Interpretation [...] tions. Lab Interpretation (test Normal code = 77305-6) [facility] WITH [id number] 11:46:38 Test Item Value Reference Range Interpretation [...] RDW-SD (test code = 43.2 fL 38.5-51.6 41036-8) RDW-CV (test code = 13.8 % 12.1-15.4 788-0) PLT (test code = See_Comment [Automated 777-3) message] The sy stem which generated this result transmitted reference range : 150 - 328 10*3/ ?L. The reference r javier was not used to interpret this result as normal/abnormal . MPV (test code = 9.1 fL 9.8-13.0 L 30496-2) NRBC/100 WBC (test See_Comment [Automat ed code = 4718297937) message] The system which generated this result transmitted reference range : 0.0 - 10.0 /100 WBCs. The refer ence range was not u sed to interpret th is result as normal/abnormal . NRBC x10^3 (test code <0.01 See_Comment [Auto mated = 5072915491) message] The s ystem which generated this result transmitted reference range : 10*3/?L. The reference range was not used to interpret this result as normal/abnormal . GRAN MAT (NEUT) % 58.2 % (test code = 770-8) IMM GRAN % (test code 0.40 % = 7119857877) LYMPH % (test code = 29.0 % 736-9) MONO % (test code = 10.1 % 5905-5) EOS % (test code = 1.2 % 713-8) BASO % (test code = 1.1 % 706-2) GRAN MAT x10^3(ANC) 4.82 10*3/uL 1.99-6.95 (test code = 7849830087) IMM GRAN x10^3 (test 0.03 10*3/uL 0.00-0.06 code = 9277373047) LYMPH x10^3 (test code 2.40 10*3/uL 1.09-3.23 = 731-0) MONO x10^3 (test code 0.84 10*3/uL 0.36-1.02 = 742-7) EOS x10^3 (test code = 0.10 10*3/uL 0.06-0.53 711-2) BASO x10^3 (test code 0.09 10*3/uL 0.01-0.09 = 704-7) Lab Interpretation Abnormal (test code = 17839-5) [facility] AllenPOCT GLUCOSE (AUTOMATED)2020-10-24 11:21:11 Test Item Value Reference Range Interpretation Comments POCT GLU (test code = 4758922762) 147 mg/dL 70-110 H Lab Interpretation (test code = Abnormal 34625-6) [facility] AllenTHYROID STIMULATING [id number] 19:43:06 Test Item Value Reference Range Interpretation Comments TSH (test code = See_Comment [Automated message] 0905657540) The system [employer] h generated this result transmitted ref erence range: 0.45 - 4 .70 mIU/L. The refe rence range was not u sed to interpret this result as normal/abnor mal. Lab Interpretation (test Normal code = 24928-2) [facility] AllenaPTT2021-03-[facility] 19:41:21 Test Item Value Reference Range Interpretation Comments APTT Patient (test See_Comment [Automat ed code = 3173-2) message] The system which generated this result transmitted reference range : 23 - 38 Seconds . The reference range was not used to interpr et this result as normal/abnormal . TAMIKO (test code = TAMIKO) The [facility] patient population mean normal value for aPTT is 30 seconds. Lab Interpretation Normal (test code = 31649-7) [facility] AllenFREE [id number] 19:29:44 Test Item Value Reference Range Interpretation Comments FREE T4 (test code = See_Comment [Autom ated message] 9830481082) The system [employer] generated this result transmitted ref erence range: 0.78 - 2 .20 ng/dL:. The ref erence range was not u sed to interpret this result as normal/abnor mal. Lab Interpretation (test Normal code = 39002-9) [facility] AllenTroponin [id number] 19:24:48 Test Item Value Reference Range Interpretation Comments TROPONIN I (test <0.012 See_Comment [Automated code = 1689991405) message] The system which generated this result [...] ? Lab Interpretation Normal (test code = 54348-7) [facility] AllenN-TERMINAL [id number] 19:21:28 Test Item Value Reference Range Interpretation Comments NT-proBNP (test code 47 pg/mL See_Comment [Autom ated = 3514329420) message] The system which generated this result transmitted reference range : <=125. The reference range was not used to interpret this result as normal/abnormal . TAMIKO (test code = TAMIKO) Biotin has been reported to cause a negative bias, interpret results relative to patient's use of biotin. Lab Interpretation Normal (test code = 84923-4) [facility] Metabolic Panel (NA, K, CL, CO2, GLUCOSE, BUN, CREATININE, CA)2020-07-28 19:12:46 Test Item Value Reference Range Interpretation Comments NA (test code = 137 mmol/L 135-145 6272007943) K (test code = 3.5 mmol/L 3.5-5.0 5510079017) CL (test code = 99 mmol/L 98-108 0061726573) CO2 TOTAL (test code = 26 mmol/L 23-31 3389948228) AGAP (test code = 2-16 4737141315) BUN (test code = 3 mg/dL 7-23 L 6829570540) GLUCOSE (test code = 96 mg/dL 70-110 0006446760) CREATININE (test code = 0.69 mg/dL 0.60-1.25 8295447385) CALCIUM (test code = 9.1 mg/dL 8.6-10.6 4167830297) eGFR Calculation mL/min/1.73m2 (Non-) (test code = 6931385378) eGFR Calculation mL/min/1.73m2 () (test code = 2056437694) TAMIKO (test code = TAMIKO) Association of [...] tests). Lab Interpretation Abnormal (test code = 97923-3) [facility] AllenHepatic Function Panel (ALB, T.PRO, BILI T, BU/BC, ALT, AST, ALK PHOS)2020-07-28 19:12:26 Test Item Value Reference Range Interpretation Comments TOTAL BILI (test code = 1994250776) 0.5 mg/dL 0.1-1.1 BILI UNCON (test code = 7415868657) 0.3 mg/dL 0.1-1.1 BILI CONJ (test code = 2982306364) 0.0 mg/dL 0.0-0.3 T PROTEIN (test code = 4397783974) 7.7 g/dL 6.3-8.2 ALBUMIN (test code = 7978939822) 4.7 g/dL 3.5-5.0 ALK PHOS (test code = 0481888662) 115 U/L 34-122 ALTv (test code = 1742-6) 29 U/L 5-50 AST(SGOT) (test code = 6891705914) 27 U/L 13-40 Lab Interpretation (test code = Normal 36762-0) [facility] AllenCOVID-19 (ID NOW RAPID TESTING)2020-07-28 19:00:24 Test Item Value Reference Range Interpretation Comments SARS-CoV-2 Rapid ID NOW Not Detected Not Detected (test code = 23063-2) TAMIKO (test code = TAMIKO) ID NOW COVID-19 Assay is an isothermal nucleic acid amplification test intended for the qualitative detection of nucleic acid from SARS-CoV-2 viral RNA in nasopharyngeal (SUPERINTENDENT AMMUNITION STORAGE) specimens. It is used under Emergency Use [...] indicated. Lab Interpretation Normal (test code = 29243-7) [facility] / [facility] - DRUG SCREEN [id number] 18:56:58 Test Item Value Reference Range Interpretation Comments BENZO U (test code = Presumptive Positive Negative A 7071431141) CLAUDIA U (test code = Negative Negative 7546867278) AMPHET (test code = Presumptive Positive Negative A 6795930910) THC (test code = Negative Negative 5628824888) METHADONE (test code = Negative Negative 9208735466) Meth U (test code = Presumptive Positive Negative A 1807005210) OPIATES (test code = Presumptive Positive Negative A 8844544739) Cocaine Metabolite (test Negative Negative code = 1309952847) PROPOXY (test code = Negative Negative 7735664092) Tric U (test code = Negative Negative 3423767885) PCP (test code = Negative Negative 2203138669) OXYCOD (test code = Negative Negative 3585988041) TAMIKO (test code = TAMIKO) Urine Drug [...] testing). Lab Interpretation (test Abnormal code = 69194-4) [facility] AllenUrinalysis2021-03-20 18:54:32 Test Item Value Reference Range Interpretation Comments APPEARANCE (test code = Clear Clear 1696354255) COLOR (test code = Yellow Yellow 1704738479) PH (test code = 4.8-8.0 3592781324) SP GRAVITY (test code = 1.003-1.030 4302337865) GLU U QUAL (test code = Normal Normal 0191440452) BLOOD (test code = Negative Negative 1812032712) KETONES (test code = Negative Negative 4875127817) PROTEIN (test code = Negative Negative 2887-8) UROBILIN (test code = Normal Normal 8566468263) BILIRUBIN (test code = Negative Negative 5996211703) NITRITE (test code = Negative Negative 8221783287) LEUK GINO (test code = Negative Negative 1940427381) RBC/HPF (test code = See_Comment [Autom ated message] 6457990453) The system [employer] generated this result transmitted ref erence range: 0 - 3 HP F. The reference range was not used to int erpret this result as normal/abnormal . WBC/HPF (test code = <1 See_Comment [Autom ated message] 7458349185) The system [employer] generated this result transmitted ref erence range: 0 - 5 HP F. The reference range was not used to int erpret this result as normal/abnormal . BACTERIA (test code = Negative Negative 6055845602) Lab Interpretation (test Normal code = 83816-9) [facility] AllenProthrombin Time (PT) / [id number] 18:54:27 Test Item Value Reference Range Interpretation Comments PROTIME PATIENT (test See_Comment [Auto mated message] code = 5964-2) The system [employer] generated this result transmitted ref erence range: 12.0 - 1 4.7 Seconds. The re ference range was not u sed to interpret this result as normal/abnor mal. INR (test code = 6301-6) Nor mal INR <1.1; Warfarin Therap eutic range 2.0 to 3. 0 or 2.5 to 3.5, dep ending upon the indica tions. Lab Interpretation (test Normal code = 35758-3) [facility] with [id number] 18:41:23 Test Item Value Reference Range Interpretation Comments WBC (test code = See_Comment [Automated message] 6690-2) The system [employer] generated this result transmitted ref erence range: 4.20 - 1 0.70 10*3/?L. The re ference range was not u sed to interpret this result as normal/abnor mal. RBC (test code = See_Comment [Automated message] 789-8) The system [employer] generated this result transmitted ref erence range: [...] RDW-SD (test code 43.4 fL 38.5-51.6 = 05782-1) RDW-CV (test code 13.2 % 12.1-15.4 = 788-0) PLT (test code = See_Comment [Automated message] 487-3) The system [employer] generated this result transmitted ref erence range: 150 - 32 8 10*3/?L. The re ference range was not u sed to interpret this result as normal/abnor mal. MPV (test code = 9.9 fL 9.8-13.0 46690-2) NRBC/100 WBC (test See_Comment [Automat ed message] code = 9927664041) The [employer] which generated this result transmitted ref erence range: 0.0 - 10 .0 /100 WBCs. The refer ence range was not u sed to interpret this result as normal/abnor mal. NRBC x10^3 (test <0.01 See_Comment [Automated message] code = 6583479033) The [employer] which generated this result transmitted ref erence range: 10*3/?L. The reference range was not used to interpr et this result as normal/abnormal . GRAN MAT (NEUT) % 68.0 % (test code = 770-8) IMM GRAN % (test 0.50 % code = 0246188567) LYMPH % (test code 18.2 % = 736-9) MONO % (test code 11.6 % = 5905-5) EOS % (test code = 1.1 % 713-8) BASO % (test code 0.6 % = 706-2) GRAN MAT 5.40 10*3/uL 1.99-6.95 x10^3(ANC) (test code = 8057303268) IMM GRAN x10^3 0.04 10*3/uL 0.00-0.06 (test code = 4328336801) LYMPH x10^3 (test 1.45 10*3/uL 1.09-3.23 code = 731-0) MONO x10^3 (test 0.92 10*3/uL 0.36-1.02 code = 742-7) EOS x10^3 (test 0.09 10*3/uL 0.06-0.53 code = 711-2) BASO x10^3 (test 0.05 10*3/uL 0.01-0.09 code = 704-7) [facility] [id number] 15:56:00 Test Item Value Reference Range Interpretation Comments TROPONIN I (test 0.006 ng/mL See_Comment [Automated code = 2190498250) message] The system which generated this result [...] ? Lab Interpretation Normal (test code = 87546-5) [facility] [id number] 14:08:00 Test Item Value Reference Range Interpretation Comments TROPONIN I (test 0.021 ng/mL See_Comment Hemolyzed code = 5517094693) specimen [Automated message] The system which generated [...] ? Lab Interpretation Normal (test code = 47760-3) [facility] (NA, K, CL, CO2, GLUCOSE, BUN, CREATININE, CA)2020-06-30 13:25:00 Test Item Value Reference Range Interpretation Comments NA (test code = 138 mmol/L 135-145 6292734527) K (test code = 3.5 mmol/L 3.5-5 9765723925) CL (test code = 107 mmol/L 98-108 0243486226) CO2 TOTAL (test code = 20 mmol/L 23-31 L 5679379313) AGAP (test code = 2-16 6857758477) BUN (test code = 12 mg/dL 7-23 0683112729) GLUCOSE (test code = 93 mg/dL 70-110 4494192031) CREATININE (test code = 0.83 mg/dL 0.6-1.25 5006743289) CALCIUM (test code = 8.9 mg/dL 8.6-10.6 4013188273) eGFR Calculation mL/min/1.73m2 (Non-) (test code = 3091160094) eGFR Calculation mL/min/1.73m2 () (test code = 0335999309) TAMIKO (test code = TAMIKO) Association of [...] tests). Lab Interpretation Abnormal (test code = 22349-2) [facility] with [id number] 13:04:00 Test Item Value Reference Range Interpretation Comments WBC (test code = See_Comment [Automated 2290-2) message] The sy stem which generated this [...] RDW-SD (test code = 47.3 fL 38.5-51.6 66733-1) RDW-CV (test code = 14.1 % 12.1-15.4 788-0) PLT (test code = See_Comment [Automated 777-3) message] The sy stem which generated this result transmitted reference range : 150 - 328 10*3/ ?L. The reference r javier was not used to interpret this result as normal/abnormal . MPV (test code = 10.1 fL 9.8-13 21454-4) NRBC/100 WBC (test See_Comment [Automat ed code = 2241480605) message] The system which generated this result transmitted reference range : 0.0 - 10.0 /100 WBCs. The refer ence range was not u sed to interpret th is result as normal/abnormal . NRBC x10^3 (test code <0.01 See_Comment [Auto mated = 1057528816) message] The s ystem which generated this result transmitted reference range : 10*3/?L. The reference range was not used to interpret this result as normal/abnormal . GRAN MAT (NEUT) % 45.2 % (test code = 770-8) IMM GRAN % (test code 0.50 % = 8757416112) LYMPH % (test code = 39.0 % 736-9) MONO % (test code = 11.9 % 5905-5) EOS % (test code = 2.6 % 713-8) BASO % (test code = 0.8 % 706-2) GRAN MAT x10^3(ANC) 3.00 10*3/uL 1.99-6.95 (test code = 7779117862) IMM GRAN x10^3 (test 0.03 10*3/uL 0-0.06 code = 9789268150) LYMPH x10^3 (test code 2.58 10*3/uL 1.09-3.23 = 731-0) MONO x10^3 (test code 0.79 10*3/uL 0.36-1.02 = 742-7) EOS x10^3 (test code = 0.17 10*3/uL 0.06-0.53 711-2) BASO x10^3 (test code 0.05 10*3/uL 0.01-0.09 = 704-7) Lab Interpretation Abnormal (test code = 84046-3) [facility] 1 [id number] 05:44:12 No acute cardiopulmonary abnormality. Preliminary Report [...] reviewed this study and agree with the abovereport.[facility] TROPONIN [id number] 05:05:00 Test Item Value Reference Range Interpretation Comments TROPONIN I (test <0.012 See_Comment [Automated code = 8737426627) message] The system which generated this result [...] ? Lab Interpretation Normal (test code = 59506-4) [facility] (17324)2019-11-10 05:05:00 Test Item Value Reference Range Interpretation Comments NA (test code = 135 mmol/L 135-145 7648741170) K (test code = 3.6 mmol/L 3.5-5 8694046436) CL (test code = 102 mmol/L 98-108 1557378346) CO2 TOTAL (test code = 23 mmol/L 23-31 2665771188) AGAP (test code = 2-16 1633232004) BUN (test code = 15 mg/dL 7-23 7567702683) GLUCOSE (test code = 93 mg/dL 70-110 1926461207) CREATININE (test code 0.79 mg/dL 0.6-1.25 = 2891129652) TOTAL BILI (test code 0.4 mg/dL 0.1-1.1 = 0827092962) CALCIUM (test code = 9.4 mg/dL 8.6-10.6 8969515359) T PROTEIN (test code = 7.9 g/dL 6.3-8.2 1124256540) ALBUMIN (test code = 4.5 g/dL 3.5-5 8293667997) ALK PHOS (test code = 61 U/L 34-122 5694065589) ALTv (test code = 22 U/L 5-50 1742-6) AST(SGOT) (test code = 26 U/L 13-40 6182456823) eGFR Calculation mL/min/1.73m2 (Non-) (test code = 4559841589) eGFR Calculation mL/min/1.73m2 () (test code = 4754711713) TAMIKO (test code = TAMIKO) Association of [...] or urine or abnormalities in imaging tests). [facility] 04:45:00 Test Item Value Reference Range Interpretation Comments APTT Patient (test See_Comment [Automat ed code = 3173-2) message] The system which generated this result transmitted reference range : 23 - 38 Seconds . The reference range was not used to interpr et this result as normal/abnormal . TAMIKO (test code = TAMIKO) The [facility] patient population mean normal value for aPTT is 30 seconds. Lab Interpretation Normal (test code = 38640-5) [facility] AllenPROTHROMBIN TIME / [id number] 04:45:00 Test Item Value Reference Range Interpretation [...] tions. Lab Interpretation (test Normal code = 82660-6) [facility] WITH [id number] 04:37:00 Test Item Value Reference Range Interpretation Comments WBC (test code = See_Comment [Automated 8390-2) message] The sy stem which generated this result transmitted reference range : 4.20 - 10.70 10*3/?L. The reference range was not used to interpret this result as normal/abnormal . RBC (test code = See_Comment [Automated 229-8) message] The sy stem which generated this [...] RDW-SD (test code = 39.7 fL 38.5-51.6 79819-2) RDW-CV (test code = 12.7 % 12.1-15.4 788-0) PLT (test code = See_Comment [Automated 777-3) message] The sy stem which generated this result transmitted reference range : 150 - 328 10*3/ ?L. The reference r javier was not used to interpret this result as normal/abnormal . MPV (test code = 10.3 fL 9.8-13 83567-5) NRBC/100 WBC (test See_Comment [Automat ed code = 0923251187) message] The system which generated this result transmitted reference range : 0.0 - 10.0 /100 WBCs. The refer ence range was not u sed to interpret th is result as normal/abnormal . NRBC x10^3 (test code <0.01 See_Comment [Auto mated = 5707383490) message] The s ystem which generated this result transmitted reference range : 10*3/?L. The reference range was not used to interpret this result as normal/abnormal . GRAN MAT (NEUT) % 47.9 % (test code = 770-8) IMM GRAN % (test code 0.20 % = 6326866273) LYMPH % (test code = 33.3 % 736-9) MONO % (test code = 12.1 % 5905-5) EOS % (test code = 5.7 % 713-8) BASO % (test code = 0.8 % 706-2) GRAN MAT x10^3(ANC) 5.08 10*3/uL 1.99-6.95 (test code = 3423271507) IMM GRAN x10^3 (test <0.03 0-0.06 code = 5237006298) LYMPH x10^3 (test code 3.53 10*3/uL 1.09-3.23 H = 731-0) MONO x10^3 (test code 1.28 10*3/uL 0.36-1.02 H = 742-7) EOS x10^3 (test code = 0.61 10*3/uL 0.06-0.53 H 711-2) BASO x10^3 (test code 0.09 10*3/uL 0.01-0.09 = 704-7) Lab Interpretation Abnormal (test code = 53860-9) [facility]IS2020-[facility]-21 16:01:00 Test Item Value Reference Range Interpretation Comments APPEARANCE (test code = Clear Clear 7370425053) COLOR (test code = Other Yellow A 9243113302) PH (test code = 4.8-8.0 9371266224) SP GRAVITY (test code = <=1.005 1.003-1.030 3403076649) GLU U QUAL (test code = Negative Negative 6423866683) BLOOD (test code = Negative Negative 5376892316) KETONES (test code = Negative Negative 1340096174) PROTEIN (test code = Negative Negative 2887-8) UROBILIN (test code = 0.2 mg/dL See_Comment [Auto mated message] 1106221081) The system [employer] generated this result transmit luis reference range : 0-1.0 mg/dL. Th e reference range was not used to interpret this result as normal/abnormal . BILIRUBIN (test code = Negative Negative 2672877752) NITRITE (test code = Negative Negative 3893413425) LEUK GINO (test code = Negative Negative 7798353907) RBC/HPF (test code = See_Comment [Autom ated message] 3350510928) The system [employer] generated this result transmit luis reference range : 0 - 3 HPF. The refe rence range was not u sed to interpret th is result as normal/abnormal . WBC/HPF (test code = See_Comment [Autom ated message] 9218922615) The system [employer] generated this result transmit luis reference range : 0 - 5 HPF. The refe rence range was not u sed to interpret th is result as normal/abnormal . BACTERIA (test code = Negative Negative 3516791349) MUCOUS (test code = Slight Negative LPF A 5747557526) SQ EPITH (test code = HPF 3522656959) Lab Interpretation (test Abnormal code = 12822-3) [facility]. METABOLIC PANEL (31049)2019-09-29 15:57:00 Test Item Value Reference Range Interpretation Comments NA (test code = 140 mmol/L 135-145 0336988321) K (test code = 4.8 mmol/L 3.5-5 2725098560) CL (test code = 106 mmol/L 98-108 0728309597) CO2 TOTAL (test code = 24 mmol/L 23-31 6301197003) AGAP (test code = 2-16 6692260752) BUN (test code = 14 mg/dL 7-23 5537393995) GLUCOSE (test code = 94 mg/dL 70-110 9702401412) CREATININE (test code 0.66 mg/dL 0.6-1.25 = 1615411910) TOTAL BILI (test code 0.5 mg/dL 0.1-1.1 = 8631731167) CALCIUM (test code = 9.5 mg/dL 8.6-10.6 1352723405) T PROTEIN (test code = 8.1 g/dL 6.3-8.2 5782971180) ALBUMIN (test code = 4.6 g/dL 3.5-5 9803329827) ALK PHOS (test code = 41 U/L 34-122 9008082031) ALTv (test code = 17 U/L 5-50 1742-6) AST(SGOT) (test code = 29 U/L 13-40 9910535150) eGFR Calculation mL/min/1.73m2 (Non-) (test code = 5584932508) eGFR Calculation mL/min/1.73m2 () (test code = 7550789507) TAMIKO (test code = TAMIKO) Association of [...] or urine or abnormalities in imaging tests). [facility] WITH [id number] 15:34:00 Test Item Value Reference Range Interpretation Comments WBC (test code = See_Comment [Automated 3662-2) message] The sy stem which generated this [...] RDW-SD (test code = 41.0 fL 38.5-51.6 45101-8) RDW-CV (test code = 12.5 % 12.1-15.4 788-0) PLT (test code = See_Comment [Automated 777-3) message] The sy stem which generated this result transmitted reference range : 150 - 328 10*3/ ?L. The reference r javier was not used to interpret this result as normal/abnormal . MPV (test code = 10.3 fL 9.8-13 65528-4) NRBC/100 WBC (test See_Comment [Automat ed code = 8616546915) message] The system which generated this result transmitted reference range : 0.0 - 10.0 /100 WBCs. The refer ence range was not u sed to interpret th is result as normal/abnormal . NRBC x10^3 (test code <0.01 See_Comment [Auto mated = 5544396537) message] The s ystem which generated this result transmitted reference range : 10*3/?L. The reference range was not used to interpret this result as normal/abnormal . GRAN MAT (NEUT) % 54.5 % (test code = 770-8) IMM GRAN % (test code 0.20 % = 0826486872) LYMPH % (test code = 28.0 % 736-9) MONO % (test code = 10.0 % 5905-5) EOS % (test code = 6.6 % 713-8) BASO % (test code = 0.7 % 706-2) GRAN MAT x10^3(ANC) 4.68 10*3/uL 1.99-6.95 (test code = 6466762420) IMM GRAN x10^3 (test <0.03 0-0.06 code = 2588603888) LYMPH x10^3 (test code 2.41 10*3/uL 1.09-3.23 = 731-0) MONO x10^3 (test code 0.86 10*3/uL 0.36-1.02 = 742-7) EOS x10^3 (test code = 0.57 10*3/uL 0.06-0.53 H 711-2) BASO x10^3 (test code 0.06 10*3/uL 0.01-0.09 = 704-7) Lab Interpretation Abnormal (test code = 82522-5) [facility] [id number] 13:56:00 Test Item Value Reference Range Interpretation Comments TROPONIN I (test <0.012 See_Comment [Automated code = 7273832497) message] The system which generated this result [...] ? Lab Interpretation Normal (test code = 34564-5) [facility] AllenPROTHROMBIN TIME / [id number] 13:44:00 Test Item Value Reference Range Interpretation Comments PROTIME PATIENT (test See_Comment [Auto mated message] code = 5964-2) The system AMEC ich generated this result transmitted ref erence range: 12.0 - 1 4.7 Seconds. The re ference range was not u sed to interpret this result as normal/abnor mal. INR (test code = 6301-6) Nor mal INR <1.1; Warfarin Therap eutic range 2.0 to 3. 0 or 2.5 to 3.5, dep ending upon the indica tions. Lab Interpretation (test Normal code = 04930-5) [facility]OL[facility] PAN[facility] (90256)2019-06-16 13:44:00 Test Item Value Reference Range Interpretation Comments NA (test code = 138 mmol/L 135-145 5130993865) K (test code = 3.9 mmol/L 3.5-5 5993158837) CL (test code = 100 mmol/L 98-108 9742407708) CO2 TOTAL (test code = 28 mmol/L 23-31 1512599924) AGAP (test code = 2-16 8488217487) BUN (test code = 14 mg/dL 7-23 1627173097) GLUCOSE (test code = 108 mg/dL 70-110 3931695840) CREATININE (test code = 0.75 mg/dL 0.6-1.25 8169073476) TOTAL BILI (test code = 0.5 mg/dL 0.1-1.4 6946027675) CALCIUM (test code = 8.8 mg/dL 8.6-10.6 7050603202) T PROTEIN (test code = 7.3 g/dL 6.3-8.2 4378094894) ALBUMIN (test code = 4.4 g/dL 3.5-5 4051557150) ALK PHOS (test code = 63 U/L 34-122 4721930890) ALTv (test code = 48 U/L 5-50 1742-6) AST(SGOT) (test code = 47 U/L 13-40 H 7788321965) eGFR Calculation mL/min/1.73m2 (Non-) (test code = 9338405144) eGFR Calculation mL/min/1.73m2 () (test code = 1764158615) TAMIKO (test code = TAMIKO) Association of [...] tests). Lab Interpretation Abnormal (test code = 44225-8) [facility] AllenLIPASE, [id number] 13:44:00 Test Item Value Reference Range Interpretation Comments LIPASE (test code = 7628589674) 61 U/L 0-220 Lab Interpretation (test code = Normal 21435-0) [facility]enaPTT[facility] 13:43:00 Test Item Value Reference Range Interpretation Comments APTT Patient (test See_Comment [Automat ed code = 3173-2) message] The system which generated this result transmitted reference range : 23 - 38 Seconds . The reference range was not used to interpr et this result as normal/abnormal . TAMIKO (test code = TAMIKO) The [facility] patient population mean normal value for aPTT is 30 seconds. Lab Interpretation Normal (test code = 65348-2) [facility] WITH [id number] 13:30:00 Test Item Value Reference Range Interpretation Comments WBC (test code = See_Comment [Automated 2990-2) message] The sy stem which generated this [...] RDW-SD (test code = 40.6 fL 38.5-51.6 02946-3) RDW-CV (test code = 12.6 % 12.1-15.4 788-0) PLT (test code = See_Comment [Automated 777-3) message] The sy stem which generated this result transmitted reference range : 150 - 328 10*3/ ?L. The reference r javier was not used to interpret this result as normal/abnormal . MPV (test code = 9.7 fL 9.8-13 L 04757-9) NRBC/100 WBC (test See_Comment [Automat ed code = 0631019755) message] The system which generated this result transmitted reference range : 0.0 - 10.0 /100 WBCs. The refer ence range was not u sed to interpret th is result as normal/abnormal . NRBC x10^3 (test code <0.01 See_Comment [Auto mated = 2352249902) message] The s ystem which generated this result transmitted reference range : 10*3/?L. The reference range was not used to interpret this result as normal/abnormal . GRAN MAT (NEUT) % 52.5 % (test code = 770-8) IMM GRAN % (test code 0.30 % = 2256097302) LYMPH % (test code = 29.9 % 736-9) MONO % (test code = 11.5 % 5905-5) EOS % (test code = 4.5 % 713-8) BASO % (test code = 1.3 % 706-2) GRAN MAT x10^3(ANC) 3.14 10*3/uL 1.99-6.95 (test code = 3414184763) IMM GRAN x10^3 (test <0.03 0-0.06 code = 1230856552) LYMPH x10^3 (test code 1.79 10*3/uL 1.09-3.23 = 731-0) MONO x10^3 (test code 0.69 10*3/uL 0.36-1.02 = 742-7) EOS x10^3 (test code = 0.27 10*3/uL 0.06-0.53 711-2) BASO x10^3 (test code 0.08 10*3/uL 0.01-0.09 = 704-7) Lab Interpretation Abnormal (test code = 03190-4) [id number] Test Item Value Reference Range Interpretation Comments TROPONIN I (test <0.012 See_Comment [Automated code = 7026481682) message] The system which generated this result [...] ? Lab Interpretation Normal (test code = 59743-0) [facility]OL[facility] (29550)2019-06-15 18:50:00 Test Item Value Reference Range Interpretation Comments NA (test code = 145 mmol/L 135-145 5331649970) K (test code = 4.1 mmol/L 3.5-5 3938404526) CL (test code = 103 mmol/L 98-108 5899660966) CO2 TOTAL (test code = 32 mmol/L 23-31 H 0684346464) AGAP (test code = 2-16 4120242406) BUN (test code = 11 mg/dL 7-23 6105183075) GLUCOSE (test code = 108 mg/dL 70-110 8175892700) CREATININE (test code = 0.73 mg/dL 0.6-1.25 2486965505) TOTAL BILI (test code = 0.5 mg/dL 0.1-1.1 9722437276) CALCIUM (test code = 9.3 mg/dL 8.6-10.6 7218836362) T PROTEIN (test code = 8.1 g/dL 6.3-8.2 3601491569) ALBUMIN (test code = 4.9 g/dL 3.5-5 7835751669) ALK PHOS (test code = 65 U/L 34-122 5970307967) ALTv (test code = 61 U/L 5-50 H 1742-6) AST(SGOT) (test code = 45 U/L 13-40 H 9757248396) eGFR Calculation mL/min/1.73m2 (Non-) (test code = 9814277766) eGFR Calculation mL/min/1.73m2 () (test code = 5229854161) TAMIKO (test code = TAMIKO) Association of [...] tests). Lab Interpretation Abnormal (test code = 90373-7) [facility]MAGN[facility]IUM2020-[facility]-05 18:50:00 Test Item Value Reference Range Interpretation Comments MAGNESIUM (test code = 1846926791) 2.2 mg/dL 1.7-2.4 Lab Interpretation (test code = Normal 48118-7) [facility] WITH [id number] 18:39:00 Test Item Value Reference Range Interpretation Comments WBC (test code = See_Comment [Automated message] 3490-2) The system [employer] generated this result transmitted ref erence range: 4.20 - 1 0.70 10*3/?L. The re ference range was not u sed to interpret this result as normal/abnor mal. RBC (test code = See_Comment [Automated message] 789-8) The system [employer] generated this result transmitted ref erence range: [...] RDW-SD (test code 41.5 fL 38.5-51.6 = 33703-9) RDW-CV (test code 12.9 % 12.1-15.4 = 788-0) PLT (test code = See_Comment [Automated message] 777-3) The system whic h generated this result transmitted ref erence range: 150 - 32 8 10*3/?L. The re ference range was not u sed to interpret this result as normal/abnor mal. MPV (test code = 10.0 fL 9.8-13 46255-1) NRBC/100 WBC (test See_Comment [Automat ed message] code = 1405060160) The syste m which generated this result transmitted ref erence range: 0.0 - 10 .0 /100 WBCs. The refer ence range was not u sed to interpret this result as normal/abnor mal. NRBC x10^3 (test <0.01 See_Comment [Automated message] code = 6630271318) The syste m which generated this result transmitted ref erence range: 10*3/?L. The reference range was not used to interpr et this result as normal/abnormal . GRAN MAT (NEUT) % 45.9 % (test code = 770-8) IMM GRAN % (test 0.10 % code = 0696233304) LYMPH % (test code 39.6 % = 736-9) MONO % (test code 8.6 % = 5905-5) EOS % (test code = 4.6 % 713-8) BASO % (test code 1.2 % = 706-2) GRAN MAT 3.36 10*3/uL 1.99-6.95 x10^3(ANC) (test code = 0468486721) IMM GRAN x10^3 <0.03 0-0.06 (test code = 6192091786) LYMPH x10^3 (test 2.91 10*3/uL 1.09-3.23 code = 731-0) MONO x10^3 (test 0.63 10*3/uL 0.36-1.02 code = 742-7) EOS x10^3 (test 0.34 10*3/uL 0.06-0.53 code = 711-2) BASO x10^3 (test 0.09 10*3/uL 0.01-0.09 code = 704-7) [facility] [id number] 18:31:36HISTORY: SOB. TECHNIQUE: Portable AP erect view [...] limits. CONCLUSIONS: No signs of acute cardiopulmonary disease.[facility] FLU A AND B (MOLECULAR)2019 16:36:00 Test Item Value Reference Range Interpretation Comments POCT INFLUENZA A (test code = negative Negative - Negative 3840) POCT INFLUENZA B (test code = negative Negative - Negative 3841) Lab Interpretation (test code = Normal 95630-0) [facility] GRP A STREP (MOLECULAR)2019 16:34:00 Test Item Value Reference Range Interpretation Comments POCT GP A STREP (test code = negative Negative - Negative 46147-5) Lab Interpretation (test code = Normal 70891-5) [facility]2019-[facility] 23:07:00 Test Item Value Reference Range Interpretation Comments APPEARANCE (test code = Clear Clear 4309198501) COLOR (test code = Yellow Yellow 9373156899) PH (test code = 4.8-8.0 5705650294) SP GRAVITY (test code = 1.003-1.030 4696343183) GLU U QUAL (test code = Normal Normal 8220762630) BLOOD (test code = Negative Negative 8954546518) KETONES (test code = 5 mg/dL Negative A 9874549553) PROTEIN (test code = Negative Negative 2887-8) UROBILIN (test code = Normal Normal 5673615219) BILIRUBIN (test code = Negative Negative 8850351335) NITRITE (test code = Negative Negative 8430411374) LEUK GINO (test code = Negative Negative 9044730144) RBC/HPF (test code = See_Comment [Autom ated message] 6085736467) The system [employer] generated this result transmitted ref erence range: 0 - 3 HP F. The reference range was not used to int erpret this result as normal/abnormal . WBC/HPF (test code = See_Comment [Autom ated message] 7153627251) The system [employer] generated this result transmitted ref erence range: 0 - 5 HP F. The reference range was not used to int erpret this result as normal/abnormal . BACTERIA (test code = Negative Negative 0024606873) MUCOUS (test code = Slight Negative LPF A 1153123390) HYAL CAST (test code = See_Comment H [Aut omated message] 7607194604) The system [employer] generated this result transmitted ref erence range: <=2 LPF. The reference range was not used to int erpret this result as normal/abnormal . Lab Interpretation (test Abnormal code = 37033-5) [facility] [id number] 22:42:00 Test Item Value Reference Range Interpretation Comments TROPONIN I (test 0.002 ng/mL See_Comment [Automated code = 6703803930) message] The system which generated this result [...] ? Lab Interpretation Normal (test code = 19516-5) [facility] - DRUG SCREEN [id number] 22:36:00 Test Item Value Reference Range Interpretation Comments BENZO U (test code = Presumptive Positive Negative A [id number]) CLAUDIA U (test code = Negative Negative 1501845112) AMPHET (test code = Negative Negative 9269459210) THC (test code = Negative Negative 7937320973) METHADONE (test code = Negative Negative 7847844460) Meth U (test code = Negative Negative 0140947383) OPIATES (test code = Negative Negative 6506898995) Cocaine Metabolite (test Negative Negative code = 2008859094) PROPOXY (test code = Negative Negative 5579541599) Tric U (test code = Negative Negative 6707107587) PCP (test code = Negative Negative 3497542700) OXYCOD (test code = Negative Negative 5947297521) TAMIKO (test code = TAMIKO) Urine Drug [...] testing). Lab Interpretation (test Abnormal code = 23749-3) [facility]OL[facility] ([id number])2019-01-24 22:30:00 Test Item Value Reference Range Interpretation Comments NA (test code = 148 mmol/L 135-145 H 4712637967) K (test code = 4.0 mmol/L 3.5-5 1596121107) CL (test code = 110 mmol/L 98-108 H 5757742593) CO2 TOTAL (test code = 24 mmol/L 23-31 6615436907) AGAP (test code = 2-16 6449625129) BUN (test code = 9 mg/dL 7-23 5729722988) GLUCOSE (test code = 85 mg/dL 70-110 4074965534) CREATININE (test code = 0.67 mg/dL 0.6-1.25 9301684597) TOTAL BILI (test code = 0.2 mg/dL 0.1-1.0 9331295664) CALCIUM (test code = 8.7 mg/dL 8.6-10.6 4242572223) T PROTEIN (test code = 7.8 g/dL 6.3-8.2 8645634843) ALBUMIN (test code = 4.7 g/dL 3.5-5 1560661819) ALK PHOS (test code = 47 U/L 34-122 8389190166) ALT(SGPT) (test code = 19 U/L 9-51 6465233610) AST(SGOT) (test code = 25 U/L 13-40 1802326723) eGFR Calculation mL/min/1.73m2 (Non-) (test code = 0498758355) eGFR Calculation mL/min/1.73m2 () (test code = 8623502859) TAMIKO (test code = TAMIKO) Association of [...] tests). Lab Interpretation Abnormal (test code = 05167-9) [facility] 22[facility]30:00 Test Item Value Reference Range Interpretation Comments LIPASE (test code = 7158161127) 112 U/L 0-220 Lab Interpretation (test code = Normal 68979-3) [facility] WITH [id number] 22:07:00 Test Item Value Reference Range Interpretation Comments WBC (test code = See_Comment [Automated message] 1390-2) The system [employer] generated this result transmitted ref erence range: 4.20 - 1 0.70 10*3/?L. The re ference range was not u sed to interpret this result as normal/abnor mal. RBC (test code = See_Comment [Automated message] 139-8) The system [employer] generated this result transmitted ref erence range: [...] RDW-SD (test code 42.0 fL 38.5-51.6 = 46574-7) RDW-CV (test code 12.8 % 12.1-15.4 = 788-0) PLT (test code = See_Comment [Automated message] 837-3) The system [employer] generated this result transmitted ref erence range: 150 - 32 8 10*3/?L. The re ference range was not u sed to interpret this result as normal/abnor mal. MPV (test code = 10.7 fL 9.8-13 07159-3) NRBC/100 WBC (test See_Comment [Automat ed message] code = 3590189574) The syste m which generated this result transmitted ref erence range: 0.0 - 10 .0 /100 WBCs. The refer ence range was not u sed to interpret this result as normal/abnor mal. NRBC x10^3 (test <0.01 See_Comment [Automated message] code = 2797346947) The syste m which generated this result transmitted ref erence range: 10*3/?L. The reference range was not used to interpr et this result as normal/abnormal . GRAN MAT (NEUT) % 55.2 % (test code = 770-8) IMM GRAN % (test 0.20 % code = 8098093404) LYMPH % (test code 29.8 % = 736-9) MONO % (test code 9.8 % = 5905-5) EOS % (test code = 4.4 % 713-8) BASO % (test code 0.6 % = 706-2) GRAN MAT 4.72 10*3/uL 1.99-6.95 x10^3(ANC) (test code = 1017176573) IMM GRAN x10^3 <0.03 0-0.06 (test code = 4489209531) LYMPH x10^3 (test 2.55 10*3/uL 1.09-3.23 code = 731-0) MONO x10^3 (test 0.84 10*3/uL 0.36-1.02 code = 742-7) EOS x10^3 (test 0.38 10*3/uL 0.06-0.53 code = 711-2) BASO x10^3 (test 0.05 10*3/uL 0.01-0.09 code = 704-7) [facility]2019-[facility] 23:03:00 Test Item Value Reference Range Interpretation Comments APPEARANCE (test code = Clear Clear 7828937140) COLOR (test code = Yellow Yellow 8303107301) PH (test code = 4.8-8.0 7700837654) SP GRAVITY (test code = >=1.030 1.003-1.030 1428397491) GLU U QUAL (test code = Negative Negative 5369514426) BLOOD (test code = Negative Negative 1887677923) KETONES (test code = Negative Negative 2462045587) PROTEIN (test code = Negative Negative 2887-8) UROBILIN (test code = 0.2 mg/dL See_Comment [Auto mated message] 8353518017) The system [employer] generated this result transmit luis reference range : 0-1.0 mg/dL. Th e reference range was not used to interpret this result as normal/abnormal . BILIRUBIN (test code = Negative Negative 8374141628) NITRITE (test code = Negative Negative 5567862133) LEUK GINO (test code = Negative Negative 6624593406) RBC/HPF (test code = See_Comment [Autom ated message] 5664880179) The system [employer] generated this result transmit luis reference range : 0 - 3 HPF. The refe rence range was not u sed to interpret th is result as normal/abnormal . WBC/HPF (test code = See_Comment [Autom ated message] 5667170136) The system [employer] generated this result transmit luis reference range : 0 - 5 HPF. The refe rence range was not u sed to interpret th is result as normal/abnormal . BACTERIA (test code = Few Negative A 0802711810) Lab Interpretation (test Abnormal code = 29601-4) [facility]. METABOLIC PANEL ([id number])2018-12-21 22:57:00 Test Item Value Reference Range Interpretation Comments NA (test code = 145 mmol/L 135-145 7792616667) K (test code = 3.7 mmol/L 3.5-5 4519292693) CL (test code = 106 mmol/L 98-108 5075727336) CO2 TOTAL (test code = 24 mmol/L 23-31 3406079036) AGAP (test code = 2-16 9024368105) BUN (test code = 9 mg/dL 7-23 4406431087) GLUCOSE (test code = 129 mg/dL 70-110 H 9757547078) CREATININE (test code = 0.75 mg/dL 0.6-1.25 4927576343) TOTAL BILI (test code = 0.3 mg/dL 0.1-1.0 8796072874) CALCIUM (test code = 9.1 mg/dL 8.6-10.6 9022725178) T PROTEIN (test code = 7.9 g/dL 6.3-8.2 4118315724) ALBUMIN (test code = 4.5 g/dL 3.5-5 7812862112) ALK PHOS (test code = 66 U/L 34-122 3997934884) ALT(SGPT) (test code = 62 U/L 9-51 H 4322273821) AST(SGOT) (test code = 42 U/L 13-40 H 9129596300) eGFR Calculation mL/min/1.73m2 (Non-) (test code = 4716524677) eGFR Calculation mL/min/1.73m2 () (test code = 6692497544) TAMIKO (test code = TAMIKO) Association of [...] tests). Lab Interpretation Abnormal (test code = 82537-2) [facility] 22[facility]57[facility]00 Test Item Value Reference Range Interpretation Comments LIPASE (test code = 0859345417) 296 U/L 0-220 H Lab Interpretation (test code = Abnormal 70799-3) [facility]2019-08-13 22:57:00 Test Item Value Reference Range Interpretation Comments MAGNESIUM (test code = 1284287366) 1.9 mg/dL 1.7-2.4 Lab Interpretation (test code = Normal 02004-0) [facility] WITH [id number] 22:38:00 Test Item Value Reference Range Interpretation Comments WBC (test code = See_Comment [Automated 2490-2) message] The sy stem which generated this [...] RDW-SD (test code = 44.4 fL 38.5-51.6 41032-9) RDW-CV (test code = 13.3 % 12.1-15.4 788-0) PLT (test code = See_Comment [Automated 777-3) message] The sy stem which generated this result transmitted reference range : 150 - 328 10*3/ ?L. The reference r javier was not used to interpret this result as normal/abnormal . MPV (test code = 10.0 fL 9.8-13 46148-2) NRBC/100 WBC (test See_Comment [Automat ed code = 6321304554) message] The system which generated this result transmitted reference range : 0.0 - 10.0 /100 WBCs. The refer ence range was not u sed to interpret th is result as normal/abnormal . NRBC x10^3 (test code <0.01 See_Comment [Auto mated = 9672347523) message] The s ystem which generated this result transmitted reference range : 10*3/?L. The reference range was not used to interpret this result as normal/abnormal . GRAN MAT (NEUT) % 53.1 % (test code = 770-8) IMM GRAN % (test code 0.50 % = 7694489470) LYMPH % (test code = 27.1 % 736-9) MONO % (test code = 10.7 % 5905-5) EOS % (test code = 7.7 % 713-8) BASO % (test code = 0.9 % 706-2) GRAN MAT x10^3(ANC) 5.47 10*3/uL 1.99-6.95 (test code = 9041149765) IMM GRAN x10^3 (test 0.05 10*3/uL 0-0.06 code = 2153534255) LYMPH x10^3 (test code 2.79 10*3/uL 1.09-3.23 = 731-0) MONO x10^3 (test code 1.10 10*3/uL 0.36-1.02 H = 742-7) EOS x10^3 (test code = 0.79 10*3/uL 0.06-0.53 H 711-2) BASO x10^3 (test code 0.09 10*3/uL 0.01-0.09 = 704-7) Lab Interpretation Abnormal (test code = 52066-1) [facility], [facility], [id number] 14:45:00FINAL REPORT PROCEDURE: Rest/Stress MYOCARDIAL PERFUSION SPECT with treadmill\\XA9\\ CPT CODE: 33137 INDICATION: Chest pain HISTORY: Cardiac risk factors: [...] Normal extracardiac tracer distribution. 6. No previous [facility] study for comparison. NONINVASIVE RISK STRATIFICATION: The above findings are considered low risk (<1% annual mortality rate) based on the following criterion:- Normal or small myocardial perfusion defect at rest or with stress(JACC. 2012;59(9):857-81.) Signed: Ignacio Ruvalcaba [facility] Verified Date/Time: 03/17/2017 14:45:11 Reading Location: [address] Reading Room HEMOGLOBIN [id number] 08:29:00 Test Item Value Reference Range Interpretation Comments HEMOGLOBIN A1C (YING) (test code = 5.5 % 4.3-6.1 368) TROPONIN [id number] 02:45:00 Test Item Value Reference Range Interpretation Comments TROPONIN I (CHRISTINAAKER) (test code = 397) < ng/mL 0.00-0.03 [...] persistent tachyarrhythmia.CREATINE KINASE (CK), TOTAL AND MB 2017-03-17 02:45:00 Test Item Value Reference Range Interpretation Comments CREATINE KINASE TOTAL (BEAKER) 34 U/L 29-200 (test code = 380) CREATINE KINASE-MB (BEAKER) (test 0.4 ng/mL 0.0-6.6 code = 750) CREATINE KINASE-MB INDEX (BEAKER) 1.2 % (test code = 395) CK-MB Reference Range:<6.7 Normal6.7-10.0 Borderline>10.0 AbnormalRAD, CHEST, 1 VIEW, NON [id number] 20:40:00Reason for exam:- >chest painShould this be performed at the bedside?->YesFINAL REPORT EXAMINATION: AP PORTABLE CHEST RADIOGRAPH CLINICAL INDICATION:Chest pain IMPRESSION: Compared with 04/30/2016. No evidence of focal lung consolidation, pulmonary edema or pleural effusion. The heart size is normal. Mediastinal contours are sharp. No evidence of an acute osseous abnormality or pneumothorax. Signed: [facility] Verified Date/Time: 03/16/2017 20:40:21 Reading Location: [address] Reading Room B-TYPE NATRIURETIC FACTOR (BNP)2017-03-16 20:30:00 Test Item Value Reference Range Interpretation Comments B-TYPE NATRIURETIC PEPTIDE (BEAKER) < pg/mL 0-100 (test code = 700) COMPREHENSIVE METABOLIC [id number] 20:30:00 Test Item Value Reference Range Interpretation [...] ATED GFR. CREATINE KINASE (CK), TOTAL AND [id number] 20:28:00 Test Item Value Reference Range Interpretation Comments CREATINE KINASE TOTAL (BEAKER) 50 U/L 29-200 (test code = 380) CREATINE KINASE-MB (BEAKER) (test 0.5 ng/mL 0.0-6.6 code = 750) CREATINE KINASE-MB INDEX (BEAKER) 1.0 % (test code = 395) CK-MB Reference Range:<6.7 Normal6.7-10.0 Borderline>10.0 AbnormalTROPONIN [id number] 20:28:00 Test Item Value Reference Range Interpretation [...] failure, acidosis, acute neurological disease, and persistent tachyarrhythmia.[id number] 20:21:00 Test Item Value Reference Range Interpretation Comments MAGNESIUM (BEAKER) 2.2 mg/dL 1.6-2.6 Specimen slightly (test code = 627) hemolyzed [id number] 20:21:00 Test Item Value Reference Range Interpretation Comments PHOSPHORUS (BEAKER) 3.9 mg/dL 2.3-4.7 Specimen slightly (test code = 604) hemolyzed LIPID [id number] 20:21:00 Test Item Value Reference Range Interpretation [...] Borderline 130-159 High 160-189 Very High >=190PROTHROMBIN TIME/[id number] 20:07:00 Test Item Value Reference Range Interpretation Comments PROTIME (BEAKER) (test code = 13.0 seconds 11.7-14.7 759) INR (BEAKER) (test code = 370) 1.0 <=5.9 RECOMMENDED COUMADIN/WARFARIN INR THERAPY RANGESSTANDARD DOSE: 2.0 - 3.0 Includes: PROPHYLAXIS forvenous thrombosis, systemic embolization; TREATMENT for venous thrombosis and/or pulmonary embolus.HIGH RISK: Target INR is 2.5-3.5 for patients with mechanical heart valves.[id number] 20:07:00 Test Item Value Reference Range Interpretation Comments PARTIAL THROMBOPLASTIN TIME 26.9 seconds 22.5-36.0 (BEAKER) (test code = 760) CBC W/PLT COUNT & AUTO [id number] 19:57:00 Test Item Value Reference Range Interpretation [...]
[2021-10-04] MEDS ORDERED: NA CHLORIDE 0.9% 1,000 ML ONE ×2 (20:07→23:29)
[2021-10-04] MEDS ORDERED: MORPHINE 4 MG/ML SYR ONE (20:07)
[2021-10-04] MEDS ORDERED: ONDANSETRON 4 MG/2 ML VIAL ONE ×2 (20:07→22:35)
[2021-10-04 20:08] LABS: Lymphocytes % 38.8 % (15.3-44.8); MPV 8.4 fL (7.6-11.3); RBC Red Blood Cell Count 5.09 M/uL (4.33-5.43)
[2021-10-04 20:24] LABS: Albumin 4.1 g/dL (3.4-5.0); Bilirubin Total 0.1 mg/dL (0.2-1.0); Potassium 3.8 mmol/L (3.5-5.1); Protein, Total 8.3 g/dL (6.4-8.2)
--- NOTE | 2021-10-04 21:01 | RAD REPORT ---
EXAM DESCRIPTION: CTAbdomen Pelvis W Contrast - 10/04/2021 8:51 pm CLINICAL HISTORY: RLQ abdominal pain COMPARISON: Abdomen Pelvis W Contrast dated 01/30/2016; CT ABD PELVIS W CONTRAST dated 12/26/2013; C T ABD PELVIS W CONTRAST dated 08/01/2013 TECHNIQUE: CT of the abdomen and pelvis was performed. All CT scans are performed using dose optimization technique as appropriate and may include automated exposure control or mA/KV adjustment according to patient size. FINDINGS: Lower chest: No acute abnormality. Liver: No acute abnormality or suspicious lesions. Biliary: No biliary ductal dilatation. Stomach: No significant focal abnormality. Duodenum: No significant focal abnormality. Pancreas: No significant abnormality. Spleen: No significant abnormality. Adrenal: No suspicious lesions. Kidney/ureter: No hydronephrosis. No renal calculi. Retroperitoneum: No retroperitoneal adenopathy. Vascular: No aneurysm. Atherosclerosis Bowel: No significant focal abnormality. Normal appendix. Peritoneum: No ascites or free air. Bladder: Grossly unremarkable. Reproductive: No adnexal masses. Bones: No acute fracture. Other: n/a IMPRESSION: No acute intra-abdominal or pelvic finding. Normal appendix.
--- NOTE | 2021-10-04 22:03 | ER ---
Nurse's Notes [facility] Name: Srini Simpson Age: 36 yrs Sex: Male : 1985 Arrival Date: 10/04/2021 Time: 17:48 Bed 24 Private MD: Jovanni Luke H Diagnosis: Lower abdominal pain, unspecified;Nausea with vomiting, unspecified Presentation: 10/04 18:52 Chief complaint: Patient states: RLQ pain and vomiting X 2 days. Coronavirus screen: At iw this time, the client does not indicate any symptoms associated with coronavirus-19. Ebola Screen: Patient negative for fever greater than or equal to 101.5 degrees Fahrenheit, and additional compatible Ebola Virus Disease symptoms Patient denies exposure to infectious person. Patient denies travel to an Ebola-affected area in the 21 days before illness onset. No symptoms or risks identified at this time. Initial Sepsis Screen: Does the patient meet any 2 criteria? No. Patient's initial sepsis screen is negative. Does the patient have a suspected source of infection? No. Patient's initial sepsis screen is negative. Risk Assessment: Do you want to hurt yourself or someone else? Patient reports no desire to harm self or others. Onset of symptoms was October 04, 2021. 18:52 Method Of Arrival: Ambulatory iw 18:52 Acuity: CHRISTINE 3 iw Historical: - Allergies: 19:46 No Known Allergies; iw - PMHx: 19:46 Anxiety; Depression; ETOH/drug abuse; Hypertension; Pyloric Stenosis; iw Screenin:07 Abuse screen: Denies threats or abuse. Nutritional screening: No deficits noted. bb Tuberculosis screening: No symptoms or risk factors identified. Fall Risk None identified. Assessment: 20:07 General: Appears in no apparent distress. uncomfortable, Behavior is calm, cooperative. bb Pain: Complains of pain in abdomen. Neuro: Level of Consciousness is awake, alert, obeys commands, Oriented to person, place, time, situation. Cardiovascular: Capillary refill < 3 seconds Patient's skin is warm and dry. Respiratory: Respiratory effort is even, unlabored, Respiratory pattern is regular. GI: Abdomen is round Bowel sounds present X 4 quads. Abd is soft X 4 quads Abdomen is tender to palpation in right lower quadrant. Derm: Skin is pink, warm \T\ dry. Musculoskeletal: Circulation, motion, and sensation intact. 21:04 Reassessment: Patient is alert, oriented x 3, equal unlabored respirations, skin bb warm/dry/pink. 22:26 Reassessment: pt given javi keaton for PO challenge unable to tolerate pt vomited and bb Jeevan TORREZ notified new orders received pt medicated see JUL. 23:56 Reassessment: pt sleeping, eyes closed, resp unlabored, IV site intact, patent with bb fluids infusing no erythema or edema noted. 10/05 00:37 Reassessment: pt sleeping, eyes closed, resp unlabored, IV site intact patent with bb fluids infusing. 01:10 Reassessment: Patient is alert, oriented x 3, equal unlabored respirations, skin bb warm/dry/pink. pt verbalized understanding of and agrees to plan of care discharge instructions given pt ambulated with steady gait to exit Patient states feeling better. Vital Signs: 10/04 19:37 BP 139 / 92; Pulse 102; Resp 16; Temp 98.6; Pulse Ox 98% on R/A; iw 21:05 BP 129 / 84; Pulse 97; Resp 16; Pulse Ox 95% on R/A; bb 22:38 BP 131 / 87; Pulse 99; Resp 16 S; Pulse Ox 97% on R/A; bb 23:57 BP 150 / 82; Pulse 91; Resp 16 S; Pulse Ox 94% on R/A; bb 10/05 00:38 BP 140 / 84; Pulse 87; Resp 16 S; Pulse Ox 96% on R/A; bb ED Course: 10/04 17:48 Patient arrived in ED. am2 17:48 Jovanni Luke DO is Private Physician. am2 18:08 Jeevan Diaz PA is PHCP. cp 18:08 Yusuf Kirk MD is Attending Physician. cp 18:53 Triage completed. iw 18:53 Arm band placed on. iw 19:23 Roque Husain MD is Attending Physician. cp 19:46 Inserted saline lock: 20 gauge in right antecubital area, using aseptic technique. iw 19:58 Addie Mendez, ALTON is Primary Nurse. bb 20:07 Patient has correct armband on for positive identification. Bed in low position. Call bb light in reach. 20:53 CT Abd/Pelvis - IV Contrast Only In Process Unspecified. EDMS 10/05 01:12 No provider procedures requiring assistance completed. IV discontinued, intact, bb bleeding controlled, No redness/swelling at site. Pressure dressing applied. Administered Medications: 10/04 20:06 Drug: NS 0.9% 1000 ml Route: IV; Rate: 1 bolus; Site: right antecubital; bb 21:05 Follow up: IV Status: Completed infusion; IV Intake: 1000ml bb 20:06 Drug: morphine 4 mg Route: IVP; Infused Over: 4 mins; Site: right antecubital; bb 21:05 Follow up: Response: Pain is decreased bb 20:07 Drug: Zofran (Ondansetron) 4 mg Route: IVP; Site: right antecubital; bb 21:05 Follow up: Response: No adverse reaction bb 20:10 Not Given (Duplicate Order): Zofran (Ondansetron) 4 mg IVP once; over 2 minutes iw 22:33 Drug: Zofran (Ondansetron) 4 mg Route: IVP; Site: right antecubital; bb 23:59 Follow up: Response: No adverse reaction; No change in condition bb 23:27 Drug: NS 0.9% 1000 ml Route: IV; Rate: 1 bolus; Site: right antecubital; bb 10/05 01:12 Follow up: IV Status: Order to discontinue infusion; IV Intake: 600ml bb 10/04 23:27 Drug: Phenergan (promethazine) 12.5 mg Route: IVP; Site: right antecubital; bb 23:58 Follow up: Response: Marked relief of symptoms bb Intake: 21:05 IV: 1000ml; Total: 1000ml. bb 10/05 01:12 IV: 600ml; Total: 1600ml. bb Outcome: 10/04 22:02 Discharge ordered by . stanislaw 10/05 01:12 Discharged to home ambulatory. bb Condition: stable Discharge instructions given to patient, Instructed on discharge instructions, follow up and referral plans. medication usage, Demonstrated understanding of instructions, follow-up care, medications, Prescriptions given X 2. 01:13 Patient left the ED. bb Signatures: Dispatcher [facility] Addie Mendez RN RN bb Snow Rincon RN RN iw Page, Jeevan, PA PA cp Lopez, Kriss am2
--- NOTE | 2021-10-04 22:03 | EDPHYS ---
Physician Documentation [facility] Name: Srini Simpson Age: 36 yrs Sex: Male : 1985 Arrival Date: 10/04/2021 Time: 17:48 Bed 24 Private MD: Jovanni Luke H ED Physician Roque Husain HPI: 10/04 18:00 This 36 yrs old Male presents to ER via Ambulatory with complaints of Abdominal Pain - cp rlq, Nausea/Vomiting. 18:00 The patient presents with abdominal pain right lower quadrant. Onset: The cp symptoms/episode began/occurred 2 day(s) ago. The symptoms do not radiate. Associated signs and symptoms: Pertinent positives: nausea and vomiting, Pertinent negatives: blood in stools, chest pain, constipation, diarrhea, dysuria, fever, testicular pain, vomiting blood. The symptoms are described as constant. Severity of pain: in the emergency department the pain is unchanged despite home interventions. Historical: - Allergies: 19:46 No Known Allergies; iw - PMHx: 19:46 Anxiety; Depression; ETOH/drug abuse; Hypertension; Pyloric Stenosis; iw ROS: 18:05 Constitutional: Negative for body aches, chills, fever, poor PO intake. cp 18:05 Eyes: Negative for injury, pain, redness, and discharge. cp 18:05 ENT: Negative for drainage from ear(s), ear pain, sore throat, difficulty swallowing, difficulty handling secretions. 18:05 Cardiovascular: Negative for chest pain, palpitations. 18:05 Respiratory: Negative for cough, shortness of breath, wheezing. 18:05 Abdomen/GI: Positive for abdominal pain, nausea and vomiting, Negative for diarrhea, constipation, hematemesis, black/tarry stool, rectal bleeding. 18:05 Back: Negative for injury or acute deformity, decreased range of motion. 18:05 : Negative for urinary symptoms, testicular pain 18:05 Neuro: Negative for altered mental status, headache, weakness. 18:05 All other systems are negative. Exam: 18:10 Constitutional: The patient appears in no acute distress, alert, awake, cp non-diaphoretic, non-toxic, well developed, well nourished. 18:10 Head/Face: Normocephalic, atraumatic. cp 18:10 Eyes: Periorbital structures: appear normal, Conjunctiva: normal, no exudate, no injection, Sclera: no appreciated abnormality, Lids and lashes: appear normal, bilaterally. 18:10 ENT: External ear(s): are unremarkable, Nose: is normal, Mouth: Lips: moist, Oral mucosa: moist, Posterior pharynx: Airway: no evidence of obstruction, patent. 18:10 Chest/axilla: Inspection: normal. 18:10 Cardiovascular: Edema: is not appreciated, JVD: is not appreciated. 18:10 Respiratory: the patient does not display signs of respiratory distress, Respirations: normal, no use of accessory muscles, no retractions, labored breathing, is not present, Breath sounds: are clear throughout, no decreased breath sounds, no stridor, no wheezing. 18:10 Abdomen/GI: Inspection: obese Bowel sounds: active, all quadrants, Palpation: soft, in all quadrants, moderate abdominal tenderness, in the right lower quadrant, rebound tenderness, is not appreciated, involuntary guarding, is not appreciated. 18:10 Back: CVA tenderness, is absent. 18:10 Skin: no rash present. Vital Signs: 19:37 BP 139 / 92; Pulse 102; Resp 16; Temp 98.6; Pulse Ox 98% on R/A; iw 21:05 BP 129 / 84; Pulse 97; Resp 16; Pulse Ox 95% on R/A; bb 22:38 BP 131 / 87; Pulse 99; Resp 16 S; Pulse Ox 97% on R/A; bb 23:57 BP 150 / 82; Pulse 91; Resp 16 S; Pulse Ox 94% on R/A; bb 10/05 00:38 BP 140 / 84; Pulse 87; Resp 16 S; Pulse Ox 96% on R/A; bb MDM: 10/04 19:28 Patient medically screened. cp 22:00 Data reviewed: vital signs, nurses notes, lab test result(s), radiologic studies, CT cp scan. 22:00 Differential diagnosis: appendicitis, bowel obstruction, diverticulitis, cp Pyelonephritis, Testicular Torsion, Ureterolithiasis, urinary tract infection. Counseling: I had a detailed discussion with the patient and/or guardian regarding: the historical points, exam findings, and any diagnostic results supporting the discharge/admit diagnosis, lab results, radiology results, to return to the emergency department if symptoms worsen or persist or if there are any questions or concerns that arise at home. Special discussion: Based on the patient's Hx, exam, and Dx evaluation, there is no indication for emergent surgery or inpatient Tx. It is understood by the patient/guardian that if the Sx's persist or worsen they need to return immediately for re-evaluation. ED course: VSS. Nausea and pain markedly improved. CT abdomen/pelvis report reviewed and no acute findings. Will discharge to home for continued monitoring. 10/04 17:54 Order name: CBC with Diff; Complete Time: 21:32 rn 10/04 17:54 Order name: CMP; Complete Time: 21:32 rn 10/04 17:54 Order name: Lipase; Complete Time: 21: rn 10/04 17:54 Order name: CT Abd/Pelvis - IV Contrast Only; Complete Time: 21: rn 10/04 22:01 Interpretation: Report reviewed. cp 10/04 17:54 Order name: ETOH Level; Complete Time: 21:32 rn 10/04 23:29 Order name: UDS cp 10/04 17:54 Order name: IV Saline Lock; Complete Time: 20: rn 10/04 17:54 Order name: Labs collected and sent; Complete Time: 20: rn 10/04 22:01 Order name: PO challenge; Complete Time: 22:13 cp Administered Medications: 20:06 Drug: NS 0.9% 1000 ml Route: IV; Rate: 1 bolus; Site: right antecubital; bb 21:05 Follow up: IV Status: Completed infusion; IV Intake: 1000ml bb 20:06 Drug: morphine 4 mg Route: IVP; Infused Over: 4 mins; Site: right antecubital; bb 21:05 Follow up: Response: Pain is decreased bb 20:07 Drug: Zofran (Ondansetron) 4 mg Route: IVP; Site: right antecubital; bb 21:05 Follow up: Response: No adverse reaction bb 20:10 Not Given (Duplicate Order): Zofran (Ondansetron) 4 mg IVP once; over 2 minutes iw 22:33 Drug: Zofran (Ondansetron) 4 mg Route: IVP; Site: right antecubital; bb 23:59 Follow up: Response: No adverse reaction; No change in condition bb 23:27 Drug: NS 0.9% 1000 ml Route: IV; Rate: 1 bolus; Site: right antecubital; bb 10/05 01:12 Follow up: IV Status: Order to discontinue infusion; IV Intake: 600ml 10/04 23:27 Drug: Phenergan (promethazine) 12.5 mg Route: IVP; Site: right antecubital; bb 23:58 Follow up: Response: Marked relief of symptoms bb Disposition Summary: 10/04/21 22:02 Discharge Ordered Location: Home cp Problem: new cp Symptoms: have improved cp Condition: Stable cp Diagnosis - Lower abdominal pain, unspecified cp - Nausea with vomiting, unspecified cp Followup: cp - With: Private Physician - When: 1 - 2 days - Reason: Recheck today's complaints Discharge Instructions: - Discharge Summary Sheet cp - Abdominal Pain, Adult cp - Nausea and Vomiting, Adult cp Forms: - Medication Reconciliation Form cp - Thank You Letter cp - Antibiotic Education cp - Prescription Opioid Use cp Prescriptions: - Ibuprofen 800 mg Oral Tablet - take 1 tablet by ORAL route every 8 hours As needed take with food; 30 tablet; cp Refills: 0, Product Selection Permitted - Zofran 4 mg Oral Tablet - take 1 tablet by ORAL route every 12 hours As needed; 20 tablet; Refills: 0, cp Product Selection Permitted Signatures: Dispatcher [employer] Addie Muñoz RN RN bb Williams, Irene, RN RN iw Nieto, Roman, MD MD rn Page, Corey, PA PA cp
[2021-10-04] MEDS ORDERED: PROMETHAZINE INJ 25 MG/ML AMP ONE (23:29)
[2021-10-05 00:39] LABS: Barbiturates NEGATIVE (NEGATIVE); Benzodiazepines NEGATIVE (NEGATIVE); METHAMPHETAM NEGATIVE (NEGATIVE); Methadone NEGATIVE (NEGATIVE); Opiates POSITIVE (NEGATIVE); Phencyclidine NEGATIVE (NEGATIVE); THC Cannibis NEGATIVE (NEGATIVE)
[2021-10-05 00:40] LABS: Cocaine ND (NEGATIVE)
[2021-10-05 01:20] VITALS: TEMP 98.6
[2021-10-05 01:30] VITALS: BP 140/84; O2SAT 96
== END 2021-10-05 01:13 | disposition home or self-care (01) ==
LOC: ER 17:26
DX: R10.31 Right lower quadrant pain (principal); R11.2 Nausea with vomiting, unspecified; I10 Essential (primary) hypertension
CPT/HCPCS: 36415; 74177; 80053; 80307; 80320; 83690; 85025; 96361; 96374; 96375; 99284; J2405; J2550; J7030; Q9967

== ENCOUNTER 2021-10-07 08:29 | Emergency (ER) | payer SELFPAY ==
--- OUTSIDE RECORDS SUMMARY | 2021-10-07 08:42 | XMS REPORT | Continuity of Care Document ---
:[address] [facility] t Address [address] [place] [address] Care Team Providers Name Role Phone PRADEEP BOWERS Primary Care Physician Unavailable BELGICA Attending Clinician Unavailable Belgiac NOYOLA Attending Clinician KRISTINA Attending Clinician Unavailable [...] Number Effective Date Expiration Date Ray edge [facility] [id number] [facility] 00:00:00 Problems Condition Condition Condition Status Onset Resolution Last Treating Co mments Source Name Details Category Date Date Treatment Clinician Date CULLEN CULLEN Disease Active Univers (dyspnea (dyspnea 4-28 ity of on on 00:00: [place] exertion) exertion) [facility] Dyslipidem Dyslipidem Disease Active U nivers ia ia 3-29 ity of 00:00: [address] [place] [address] Anxiety Anxiety Disease Active 2020-05 Univers 2-26 ity of 00:00: [address] Cigarette Cigarette Disease Active 2020-05 Uni vers smoker smoker 2-26 ity of 00:00: [place] [facility] Elevated Elevated Disease Active 2021-1 Unive rs brain brain 2-26 ity of natriureti natriureti 00:00[place] c peptide c peptide 00 Medi kofi (BNP) (BNP) Branch level level Withdrawal Withdrawal Disease Active U nivers symptoms, symptoms, 6-16 ity of alcohol, alcohol, 00:00: [place] uncomplica uncomplica 00 Me dical luis luis Branch Obesity Obesity Disease Active Univers (BMI (BMI 6-16 ity of 30-39.9) 30-39.9) 00:00: [place] [address] Medical Branch Alcohol Alcohol Disease Active Methodi [...] it y of on on 00:00: [address] Branch Family Family Disease Active Univers history of history of 7- it y of early CAD early CAD [place] [facility] Family Family Disease Active 2019- Univers history of history of 7- it y of early CAD early CAD [place] [facility] Chest pain Chest pain Disease Active U damon 7- ity of 00:00: [address] Chest pain Chest pain Disease Active 2016-[address] [facility]: [place] [address] Center Chest Chest Disease Active 2015-[address] [facility] pain, pain, 2-21 [facility] unspecifie unspecifie 00:00: Me dical d type d type 00 Center Allergies, Adverse Reactions, Alerts Allergy Allergy Status Severity Reaction(s) Onset Inactive Treating Comm ents Source Name Type Date Date Clinician NO KNOWN Allergy Active [facility] ALLERGIE S NO KNOWN Drug Active Univers ALLERGIE Class ity of S [facility] Family History Family Member Diagnosis Comments Start Date Stop Date Source [facility]aternal aunt [facility] Maternal uncle Alcohol abuse [facility] Maternal uncle Depression [facility] Maternal [facility]s [facility] Natural mother Alcohol abuse [facility] Paternal grandfather Heart attack [facility] Social History Social Habit Start Date Stop Date Quantity Comments Source History of tobacco 1995-01-27 Cigarette smoker [facility] use 00:00:00 (finding) Hospital History SDOH University o [facility] SDKS University o f Alcohol Std Drinks [place] [facility] [place] History [facility] University o f Alcohol Comment [facility] ical Branch Exposure to 2021-09-19 2021-09-29 Not sure University of SARS-CoV-2 (event) 00:00:00 20:34:[address] [facility] Alcohol intake 2021-09-29 2021-09-29 Current drinker Unive rsity of 00:00:00 00:00:00 of alcohol [facility] (finding) [place] Tobacco Comment 2021-09-05 2021-09-05 vapes Universit y of 00:00:00 00:00:[address] [facility] Education 2021-05-05 2021-05-05 13 University of 00:00:00 00:00:[address] [facility] Cigarette 2020-01-28 2020-01-28 [facility] pack-years 00:00:00 00:00:00 Hospital History SDOH 2018-11-09 2018-11-09 5 University o f Alcohol Binge 00:00:00 00:00:00 [facility] Branch Cigarettes smoked 2018-11-08 2018-11-08 Univers ity of current (pack per 00:00:00 00:00:00 [facility]) - Reported Branch Tobacco use and 2018-11-08 2018-11-08 Current user Univers ity of exposure 00:00:00 00:00:[address] [facility] Sex [birth year] Universit y of 00:00:00 00:00:[address] [facility] Smoking Status Start Date Stop Date Source Current every day smoker 2018-11-08 00:00:[address] [facility] Medications Ordered Filled Start Stop Current Ordering Indication Dosage Frequency Signature Comments Components Source Medication Medication Date Date Medication? Clinician (SIG) Name Name ketorolac 2022-0 2022- No 15mg 15 mg, Unive rs (TORADOL) 09-30 Slow IV ity of injection 03:45: 02:46 Push, [place] 15 mg 00 :00 ONCE, 1 Medical dose, On Branch [place] 09/29/21 at 2245, Routine ondansetron No 4mg 4 mg, Slow Univers (ZOFRAN 09-30 IV Push, ity of (PF)) 02:30: 01:55 ONCE, 1 [place] injection 4 00 :00 dose, On Medi kofi mg [facility] 09/29/21 at 2130, TITA acetaminoph No 650mg 650 mg, U nivers en 09-30 Oral, ity of (TYLENOL) 02:30: 01:55 ONCE, 1 [place] tablet 650 00 :00 dose, On Medic al mg [facility] 09/29/21 at 2130, TITA NaCl 0.9% No 1000mL at 999 Uni vers (NS) bolus 09-30 mL/hr, ity of infusion 02:30: 03:12 1,000 mL, [place] as 1,000 mL 00 :00 IV Medical Infusion, Branch ONCE, 1 dose, On [place] 09/29/21 at 2130, TITA metoprolol Yes 50mg Take 50 mg U nivers tartrate 50 06 by mouth 2 it y of mg tablet 19:45: (two) [place] 15 times Medical daily. Branch metoprolol Yes 50mg Take 50 mg U nivers tartrate 50 -06 by mouth 2 it y of mg tablet 19:45: (two) [place] 15 times Medical daily. Branch nitroglycer No .8mg 0.8 mg, Un jaqueline in 09-13 05-06 Sublingual ity of (NITROSTAT) 17:45: 16:55 , ONCE, 1 [place] sublingual 00 :00 dose, On Medic al [...] Thu09/13/21 at 0600, Routine iopamidol 2021- No [id number] 81mL 81 mL, U nivers (ISOVUE 09-12 Intravenou ity o f 370-500 mL) 22:00: 17:41 s, ONCE, 1 [place] injection 00 :00 dose, On Medica l 81 mL [facility] 09/12/21 Branch at 1700, Routine metoprolol No 5mg 5 mg, Unive rs (LOPRESSOR) 09-12- Intravenou i ty of injection 5 18:30: 17:26 s, ONCE, 1 [place] mg 00 :00 dose, On Medical [facility] 09/12/21 Branch at 1330, Routine metoprolol 2021- No 5mg 5 mg, Unive rs (LOPRESSOR) 09-12- Intravenou i ty of injection 5 17:00: 16:09 s, ONCE, 1 [place] mg 00 :00 dose, On Medical [facility] 09/12/21 Branch at 1200, Routine acetaminoph Yes [...] ity of (PF)) 14:03: 14:04 ONCE, 1 [place] injection 4 00 :00 dose, On Medi kofi mg [facility] 09/12/21 Branch at 0915, TITA aspirin 81 2021- Yes [id number] 81mg Take 1 Univers mg chewable 4-30 05-31 tablet by it y of tablet 00:00: 04:59 mouth [place] 00 :00 daily for Medical 30 days. Branch aspirin 81 2021- Yes [id number] 81mg Take 1 Univers mg chewable 4-30 05-31 tablet by it y of tablet 00:00: 04:59 mouth [place] 00 :00 daily for Medical 30 days. Branch aspirin 81 2021- Yes [id number] 81mg Take 1 Univers mg chewable 4-30 05-31 tablet by it y of tablet 00:00: 04:59 mouth [place] 00 :00 daily for Medical 30 days. Branch metoprolol Yes 50mg Take 50 mg U nivers tartrate 50 09-06 by mouth 2 it y of mg tablet 16:01: (two) [place] 23 times Medical daily. Branch aspirin Yes 81mg 81 mg, Univers chewable - Oral, ity of tablet 81 14:00: DAILY, [place] mg 00 First dose Medical on Thu [place] 09/06/21 at 0900, Until Discontinu ed, Routine [...] mg 00 on [facility] 09/05/21 at [place] 2100, Until Discontinu ed, Routine metoprolol Yes 50mg 50 mg, Unive rs tartrate 4-29 Oral, BID, ity o f (LOPRESSOR) 01:00: First dose [place] tablet 50 00 on [facility] mg 09/05/21 at [place] 2000, Until Discontinu ed, Routine lisinopriL Yes 5mg 5 mg, Univer s (PRINIVIL,Z 4- Oral, BID, it y of ESTRIL) 01:00: First [place] tablet 5 mg 00 on [facility] l 09/05/21 at [place] 2000, Until Discontinu ed, Routine furosemide 2021- Yes [id number] 20mg Take 1 Univers 20 mg 09-06 05-30 tablet by ity of tablet 00:00: 04:59 mouth [place] 00 :00 daily for Medical 30 days. [place] furosemide 2021- Yes [id number] 20mg Take 1 Univers 20 mg - 05-30 tablet by ity of tablet 00:00: 04:59 mouth [place] 00 :00 daily for Medical 30 days. [place] furosemide 2021- Yes [id number] 20mg Take 1 Univers 20 mg 4-29 05-30 tablet by ity of tablet 00:00: 04:59 mouth [place] 00 :00 daily for Medical 30 days. [place] furosemide Yes 20mg 20 mg, Unive rs (LASIX) 09-05 Slow IV ity of injection 22:00: Push, [place] 20 mg 00 Q12H, Medical First dose Branch on [facility] 09/05/21 at 1700, Until Discontinu ed, Routine enoxaparin Yes 40mg 40 mg, Unive rs (LOVENOX) 09-05 Subcutaneo ity of injection 22:00: [place], DAILY, [place] 40 mg 00 First dose Medical on [facility] [place] 09/05/21 at 1700, Until Discontinu ed, Routine clonazePAM Yes 2mg 2 mg, Univer s (KLONOPIN) 09-05 Oral, ity of tablet 2 mg 21:47: BIDPRN, [place] 20 Starting Medical on [facility] 09/05/21 at 1647, Until Discontinu ed, Routine, anxiety sulfur 2021- No [id number] 5mL 5 mL, Unive rs hexafluorid 09-05 Intravenou i ty of e microsphr 20:15: 20:15 s, ONCE, 1 [place] (LUMASON) 00 :00 dose, On Medica l injection 5 [facility] Branch mL 09/05/21 at 1515, Routine
member certification manager approving Restricted medication : MALCOLMALDENGABRIELLE nitroglycer Yes [...] 09-05 Oral, ity of (TYLENOL) 17:35: Q6HPRN, [place] tablet 650 22 Starting Medic al mg on [facility] 09/05/21 at 1235, Until Discontinu ed, Routine, Pain (scale 1-3) nitroglycer 2021- No .4mg 0.4 mg, Un jaqueline in 09-05 Sublingual ity of (NITROSTAT) 16:30: 15:42 , ONCE, 1 [place] sublingual 00 :00 dose, On Medic al [...] mouth 2 it y of 12:53: (two) [place] 52 times Medical daily. Branch metoprolol Yes 50mg Take 50 mg U nivers tartrate 50 3-30 by mouth 2 it y of mg tablet 12:53: (two) [place] 52 times Medical daily. Branch magnesium 2021- Yes 400mg 400 mg, Uni vers oxide 08-07 04-03 Oral, BID, ity of (MAG-OX 01:00: 00:59 8 doses, [place] 400) tablet 00 :00 First dose Me dical 400 mg on Thu Branch 08/06/21 at 2000, Last dose [facility] 08/10/21 at 0800, Routine atorvastati 2021- Yes [id number] 40mg Take 1 Univers n 40 mg -30 -30 tablet by ity of tablet 00:00: 04:59 mouth at [place] 00 :00 bedtime Medical for 30 Branch days. atorvastati 2021- Yes [id number] 40mg Take 1 Univers n 40 mg 3-30 -30 tablet by ity of tablet 00:00: 04:59 mouth at [place] 00 :00 bedtime Medical for 30 Branch days. butalbital- Yes 1{tbl} 1 tablet, Univers acetaminoph 08-06 Oral, ity of en-caff 21:36: Q6HPRN, [place] (ESGIC) 42 Starting Medical 50-325-40 on [place] mg tablet 1 08/06/21 at tablet 1636, Until Discontinu ed, Routine, Headache sulfur 2021- No [id number] 5mL 5 mL, Unive rs hexafluorid 08-06- Intravenou i ty of e microsphr 21:00: 21:00 s, ONCE, 1 [place] (LUMASON) 00 :00 dose, On Medica l injection 5 Thu Branch mL 08/06/21 at 1600, Routine
member certification manager approving Restricted medication : SHERLY FOWLER magnesium No 2g 2 g, IV Univ ers sulfate in 08-06 Piggyback, it y of water 2 15:15: 17:03 Administer [place] as gram/50 mL 00 :00 over 60 Medica l (4 %) Minutes, Branch infusion 2 ONCE, 1 g dose, On Thu08/06/21 at 1015, Routine iopamidol 2021- No [id number] 100mL 100 mL, Univers (ISOVUE 08-06 Intravenou ity o f 370-500 mL) 14:20: 14:45 s, ONCE, 1 [place] injection 00 :00 dose, On Medica l 100 mL [facility] Branch 08/06/21 at 0945, Routine furosemide No [...] as mg 00 :00 dose, On Medical [facility] Branch 08/05/21 at 1545, TITA nicotine 0 [...] 40 mg 00 :00 dose, On Medical [facility] Branch 08/05/21 at 1430, TITA HYDROcodone 2021-0 [...] 2 i ty of 17:32: 00:00 (two) [place] 25 :00 times Medical daily. [place] Last dose given in ED aspirin 2021-0 [...] mouth 2 it y of 09:13: (two) [place] 22 times Medical daily. [place] Last dose given in ED hydroCHLORO 2021-0 Yes [id number] 25mg Take 1 Univers thiazide 25 1-17 tablet by ity of mg tablet 00:00: mouth [place] 00 every Medical morning. [place] hydroCHLORO 2021-0 Yes [id number] 25mg Take 1 Univers thiazide 25 1-17 tablet by ity of mg tablet 00:00: mouth [place] 00 every Medical morning. [place] hydroCHLORO 2021-0 2022- No [id number] 25mg Take 1 Univers thiazide 25 -28 tablet by it y of mg tablet 00:00: 00:00 mouth [place] 00 :00 every Medical morning. [place] lisinopriL 2020-05 Yes 5mg Take 5 mg [...] First dose [place] mg 00 on [facility] 05/05/21 Branch at 2100, Until Discontinu ed, Routine aspirin 81 2020-05- No [id number] 81mg Take 1 Univers mg chewable 07-07 tablet by it y of tablet 00:00: 05:59 mouth [place] 00 :00 daily with Medical breakfast Branch for 30 days. aspirin 81 2020-05- No [id number] 81mg Take 1 Univers mg chewable 2-06-06 tablet by it y of tablet 00:00: 05:59 mouth [place] 00 :00 daily with Medical breakfast Branch for 30 days. aspirin 81 2020-05- No [id number] 81mg Take 1 Univers mg chewable 2-06-06 tablet by it y of tablet 00:00: 05:59 mouth [place] 00 :00 daily with Medical breakfast Branch for 30 days. aspirin 81 2020-05- No [id number] 81mg Take 1 Univers mg chewable 2-06-06 tablet by it y of tablet 00:00: 05:59 mouth [place] 00 :00 daily with Medical breakfast Branch for 30 days. enoxaparin 2020-05 Yes 30mg 30 mg, Unive rs (LOVENOX) 07-06 Subcutaneo ity of injection 23:00: [place], DAILY, [place] 30 mg 00 First dose Medical on [place] Branch 05/05/21 at 1700, Until Discontinu ed, Routine magnesium 2020-05- No 4g 4 g, IV Univ ers sulfate in 07-06 Piggyback, it y of water 4 16:00: 15:35 ONCE, 1 [place] gram/50 mL 00 :00 dose, On Medic al (8 %) IV [place] Branch Piggyback 4 05/05/21 g at 1000, [...] 00 BREAKFAST, Medical First dose Branch on [place] 05/05/21 at 0800, Until Discontinu ed, Routine lisinopriL 2020-05 Yes 10mg 10 mg, Unive rs (PRINIVIL,Z 2- Oral, BID, it y of ESTRIL) 14:00: First dose [place] tablet 10 00 (after Medical mg last Branch modificati on) on [place] 05/05/21 at 0800, Until Discontinu ed, Routine metoprolol 2020-05 Yes 50mg 50 mg, Unive rs tartrate 2- Oral, BID, ity o f (LOPRESSOR) 14:00: First dose [place] tablet 50 00 on [place] Medical mg 05/05/21 Branch at 0800, Until Discontinu ed, Routine docusate 2020-05 Yes 100mg 100 mg, Unive rs (COLACE) 2- Oral, BID, ity o f capsule 100 14:00: First dose [place] mg 00 on [place] Medical 05/05/21 Branch at 0800, Until Discontinu [...] 4 21 Starting Medi kofi mg on [place] Branch 05/05/21 at 0229, Until Discontinu ed, Routine, Nausea and Vomiting (N/V) lisinopriL 2020-05- No 10mg 10 mg, Univ ers (PRINIVIL,Z 07-06 Oral, ity of ESTRIL) 07:00: 05:55 ONCE, 1 [place] tablet 10 00 :00 dose, On Medica l mg [place] Branch 05/05/21 at 0100, Routine ketorolac 2020-05- [...] 05/04/21 at 2045, STAT atorvastati 2020-05- No [id number] 20mg Take 1 Univers n 20 mg 07-06-16 tablet by ity of tablet 00:00: 05:59 mouth at [place] 00 :00 bedtime Medical for 20 Branch days. FENTanyl PF 2020-05- No 50ug 50 mcg, Un jaqueline (SUBLIMAZE 05-31 Intramuscu it y of (PF)) 15:45: 14:44 lar, ONCE, [place] injection 00 :00 1 dose, On Medi kofi 50 mcg [facility] 03/31/21 at 0945, Routine moxifloxaci 2020-05- No [id number] 400mg Take 1 Univers n 400 mg 0-11 10-22 tablet by ity o f tablet 00:00: 04:59 mouth [place] 00 :00 daily for Medical 10 days. Branch chlorphenir Yes [id number] 4mg Take 1 Univers amine 4 mg 9-16 tablet by ity of tablet 00:00: mouth [place] 00 every 6 Medical (six) Branch hours as needed for Allergies or Runny nose. calcium/mag Yes [id number] 1{each} Take 1 Univers nesium/zinc 9-16 Each by ity o f (CALCIUM-MA 00:00: mouth [place] GNESUIUM-ZI 00 daily. Medica l [place]) Branch 333-133-5 mg Tab benzonatate 2020-0 Yes [id number] 100mg Take 1 Univers 100 mg 9-16 capsule by ity of capsule 00:00: mouth 3 [place] 00 (three) Medical times Branch daily as needed for Cough. ondansetron 2020-0 Yes [id number] 4mg Take 1 Univers 4 mg 9-16 tablet by ity of disintegrat 00:00: mouth [place] ing tablet 00 every 8 Medica l (eight) Branch hours as needed for Nausea and Vomiting (N/V). chlorphenir 2020-0 Yes [id number] 4mg Take 1 Univers amine 4 mg 9-16 tablet by ity of tablet 00:00: mouth [place] 00 every 6 Medical (six) Branch hours as needed for Allergies or Runny nose. calcium/mag 2020-0 Yes [id number] 1{each} Take 1 Univers nesium/zinc 9-16 Each by ity o f (CALCIUM-MA 00:00: mouth [place] GNESUIUM-ZI 00 daily. Medica l [place]) Branch 333-133-5 mg Tab benzonatate 2020-0 Yes [id number] 100mg Take 1 Univers 100 mg 9-16 capsule by ity of capsule 00:00: mouth 3 [place] 00 (three) Medical times Branch daily as needed for Cough. ondansetron 2020-0 Yes [id number] 4mg Take 1 Univers 4 mg 9-16 tablet by ity of disintegrat 00:00: mouth [place] ing tablet 00 every 8 Medica l (eight) Branch hours as needed for Nausea and Vomiting (N/V). chlorphenir 2021-0 Yes [id number] 4mg Take 1 Univers amine 4 mg 9-16 tablet by ity of tablet 00:00: mouth [place] 00 every 6 Medical (six) Branch hours as needed for Allergies or Runny nose. calcium/mag 2021-0 Yes [id number] 1{each} Take 1 Univers nesium/zinc 9-16 Each by ity o f (CALCIUM-MA 00:00: mouth [place] GNESUIUM-ZI 00 daily. Medica l [place]) Branch 333-133-5 mg Tab benzonatate 2021-0 Yes [id number] 100mg Take 1 Univers 100 mg 9-16 capsule by ity of capsule 00:00: mouth 3 [place] 00 (three) Medical times Branch daily as needed for Cough. ondansetron 2020-0 Yes [id number] 4mg Take 1 Univers 4 mg 9-16 tablet by ity of disintegrat 00:00: mouth [place] ing tablet 00 every 8 Medica l (eight) Branch hours as needed for Nausea and Vomiting (N/V). chlorphenir 2020-0 Yes [id number] 4mg Take 1 Univers amine 4 mg 9-16 tablet by ity of tablet 00:00: mouth [place] 00 every 6 Medical (six) Branch hours as needed for Allergies or Runny nose. calcium/mag 2020-0 Yes [id number] 1{each} Take 1 Univers nesium/zinc 9-16 Each by ity o f (CALCIUM-MA 00:00: mouth [place] GNESUIUM-ZI 00 daily. Medica l [place]) Branch 333-133-5 mg Tab benzonatate 2020-0 Yes [id number] 100mg Take 1 Univers 100 mg 9-16 capsule by ity of capsule 00:00: mouth 3 [place] 00 (three) Medical times Branch daily as needed for Cough. ondansetron 2020-0 Yes [id number] 4mg Take 1 Univers 4 mg 9-16 tablet by ity of disintegrat 00:00: mouth [place] ing tablet 00 every 8 Medica l (eight) Branch hours as needed for Nausea and Vomiting (N/V). azithromyci 2020-0 Yes [id number] 250mg Take 1 Univers n 9-16 tablet by ity of (ZITHROMAX 00:00: mouth [place] Z-REFUGIO) 250 00 SEE-INSTRU Med ical mg tablet CTIONS. Branch Take 500 mg day 1, then 250 mg days 2 to 5. chlorphenir 2020-0 Yes [id number] 4mg Take 1 Univers amine 4 mg 9-16 tablet by ity of tablet 00:00: mouth [place] 00 every 6 Medical (six) Branch hours as needed for Allergies or Runny nose. calcium/mag 2020-0 Yes [id number] 1{each} Take 1 Univers nesium/zinc 9-16 Each by ity o f (CALCIUM-MA 00:00: mouth [place] GNESUIUM-ZI 00 daily. Medica l [place]) Branch 333-133-5 mg Tab benzonatate 2020-0 Yes [id number] 100mg Take 1 Univers 100 mg 9-16 capsule by ity of capsule 00:00: mouth 3 [place] 00 (three) Medical times Branch daily as needed for Cough. ondansetron 2020-0 Yes [id number] 4mg Take 1 Univers 4 mg 9-16 tablet by ity of disintegrat 00:00: mouth [place] ing tablet 00 every 8 Medica l (eight) Branch hours as needed for Nausea and Vomiting (N/V). azithromyci 2020-0 Yes [id number] 250mg Take 1 Univers n 9-16 tablet by ity of (ZITHROMAX 00:00: mouth [place] Z-REFUGIO) 250 00 SEE-INSTRU Med ical mg tablet CTIONS. Branch Take 500 mg day 1, then 250 mg days 2 to 5. chlorphenir 2020-0 Yes [id number] 4mg Take 1 Univers amine 4 mg 9-16 tablet by ity of tablet 00:00: mouth [place] 00 every 6 Medical (six) Branch hours as needed for Allergies or Runny nose. calcium/mag 2020-0 Yes [id number] 1{each} Take 1 Univers nesium/zinc 9-16 Each by ity o f (CALCIUM-MA 00:00: mouth [place] GNESUIUM-ZI 00 daily. Medica l [place]) Branch 333-133-5 mg Tab benzonatate 2020-0 Yes [id number] 100mg Take 1 Univers 100 mg 9-16 capsule by ity of capsule 00:00: mouth 3 [place] 00 (three) Medical times Branch daily as needed for Cough. ondansetron 2020-0 Yes [id number] 4mg Take 1 Univers 4 mg 9-16 tablet by ity of disintegrat 00:00: mouth [place] ing tablet 00 every 8 Medica l (eight) Branch hours as needed for Nausea and Vomiting (N/V). chlorphenir 2020-0 Yes [id number] 4mg Take 1 Univers amine 4 mg 9-16 tablet by ity of tablet 00:00: mouth [place] 00 every 6 Medical (six) Branch hours as needed for Allergies or Runny nose. calcium/mag 2020-0 Yes [id number] 1{each} Take 1 Univers nesium/zinc 9-16 Each by ity o f (CALCIUM-MA 00:00: mouth [place] GNESUIUM-ZI 00 daily. Medica l [place]) Branch 333-133-5 mg Tab benzonatate 2020-0 Yes [id number] 100mg Take 1 Univers 100 mg 9-16 capsule by ity of capsule 00:00: mouth 3 [place] 00 (three) Medical times Branch daily as needed for Cough. ondansetron 2020-0 Yes [id number] 4mg Take 1 Univers 4 mg 9-16 tablet by ity of disintegrat 00:00: mouth [place] ing tablet 00 every 8 Medica l (eight) Branch hours as needed for Nausea and Vomiting (N/V). chlorphenir 2020-0 Yes [id number] 4mg Take 1 Univers amine 4 mg 9-16 tablet by ity of tablet 00:00: mouth [place] 00 every 6 Medical (six) Branch hours as needed for Allergies or Runny nose. calcium/mag 0 Yes [id number] 1{each} Take 1 Univers nesium/zinc 9-16 Each by ity o f (CALCIUM-MA 00:00: mouth [place] GNESUIUM-ZI 00 daily. Medica l [place]) Branch 333-133-5 mg Tab benzonatate 0 Yes [id number] 100mg Take 1 Univers 100 mg 9-16 capsule by ity of capsule 00:00: mouth 3 [place] 00 (three) Medical times Branch daily as needed for Cough. ondansetron 0 Yes [id number] 4mg Take 1 Univers 4 mg 9-16 tablet by ity of disintegrat 00:00: mouth [place] ing tablet 00 every 8 Medica l (eight) Branch hours as needed for Nausea and Vomiting (N/V). chlorphenir 2020-0 2021- No [id number] 4mg Take 1 Univers amine 4 mg 9-16 03-28 tablet by ity of tablet 00:00: 00:00 mouth [place] 00 :00 every 6 Medical (six) Branch hours as needed for Allergies or Runny nose. calcium/mag 2020-0 2021- No [id number] 1{each} Take 1 Univers nesium/zinc 9-16 03-28 Each by ity of (CALCIUM-MA 00:00: 00:00 mouth [place] GNESUIUM-ZI 00 :00 daily. Medica l [place]) Branch 333-133-5 mg Tab benzonatate 20202021- No [id number] 100mg Take 1 Univers 100 mg 9-16 - capsule by ity of capsule 00:00: 00:00 mouth 3 [place] 00 :00 (three) Medical times Branch daily as needed for Cough. ondansetron 2021- No [id number] 4mg Take 1 Univers 4 mg 9-16 - tablet by ity of disintegrat 00:00: 00:00 mouth [place] ing tablet 00 :00 every 8 Medica l (eight) Branch hours as needed for Nausea and Vomiting (N/V). vitamin 2020- No [id number] 1{tbl} Take 1 Univers D3-folic 9-16 10-17 tablet by ity o f acid 125 00:00: 04:59 mouth [place] mcg (5,000 00 :00 daily for Medi kofi unit)-1 mg 30 days. Branc h Tab vitamin 2020- No [id number] 1{tbl} Take 1 Univers D3-folic 9-16 10-17 tablet by ity o f acid 125 00:00: 04:59 mouth [place] mcg (5,000 00 :00 daily for Medi kofi unit)-1 mg 30 days. Branc h Tab vitamin 2020- No [id number] 1{tbl} Take 1 Univers D3-folic 9-16 10-17 tablet by ity o f acid 125 00:00: 04:59 mouth [place] mcg (5,000 00 :00 daily for Medi kofi unit)-1 mg 30 days. Branc h Tab azithromyci 2020- No [id number] 250mg Take 1 Univers n 9-16 10-11 [...] ity of XL (TOPROL 14:52: 00:00 (two) [place] XL) 25 mg 24 :00 times Medical 24 hr daily. [place] tablet diazePAM 2020- No 10mg Take 10 mg Un jaqueline (VALIUM) 10 10-2820 by mouth 2 i ty of mg tablet 14:52: 00:00 (two) [place] 24 :00 times Medical daily. [place] cyanocobala Yes 1000ug 1,000 mcg, Univers min 10-26 Subcutaneo ity of (VITAMIN 22:00: us, Q24H, [place] B12) 00 First dose Medical injection on Thu [place] 1,000 mcg 10/26/20 at 1700, Until Discontinu ed, Routine chlordiazeP Yes 25mg 25 mg, Univ ers OXIDE 10-26 Oral, TID, ity of (LIBRIUM) 21:00: [place] capsule 25 00 on Thu Medical mg 10/26/20 at [place] 1600, Until Discontinu ed, Routine cholecalcif Yes 2000U 2,000 Univ ers becka 18 Units, ity of (vitamin 21:00: Oral, [place] D3) tablet 00 DAILY, Medical 2,000 Units First dose Br anch on Thu10/26/20 at 1600, Until Discontinu ed, Routine melatonin Yes 3mg 3 mg, Univers (MELATIN) 10-26 Oral, QHS, ity of tablet 3 mg 02:00: First dose [place] 00 on [facility] Medical 10/25/20 at [place] 2100, Until Discontinu ed, Routine magnesium 2020- No 2g 2 g, IV Univ ers sulfate in 10-26 Piggyback, it y of water 2 00:45: 00:42 ONCE, 1 [place] gram/50 mL 00 :00 dose, [facility] Medi kofi (4 %) 10/25/20 at [place] infusion 2 1945, g Routine potassium 2020- No 10meq 10 mEq, IV Univers chloride in 10-26 Piggyback, i ty of water 10 00:00: 05:40 Q1H, 5 [place] mEq/100 mL 00 :00 doses, Medical RTU 10 mEq First dose Bra n[place] on [facility] 10/25/20 at 1900, Last dose on [facility] 10/25/20 at 2300, 100 mL diazePAM No 10mg 10 mg, Univer s (VALIUM) 10-25 Intravenou ity of injection 22:45: 21:59 s, ONCE, 1 [place] 10 mg 00 :00 dose, [facility] Medical 10/25/20 at Branch 1745, TITA carvediloL Yes 12.5mg 12.5 mg, U nivers (COREG) 10-25 Oral, BID ity of tablet 12.5 22:00: MEALS, [place] mg 00 First dose Medical on [facility] 10/25/20 at 1700, Until Discontinu ed, Routine LORazepam 2020- No 2mg 2 mg, Slow U nivers (ATIVAN) 10-25 IV Push, ity of injection 2 18:00: 17:21 ONCE, 1 [place] mg 00 :00 dose, [facility] 10/25/20 at Branch 1300, Routine HYDROcodone Yes 1{tbl} 1 tablet, Univers -acetaminop 10-25 Oral, ity of hen (NORCO 16:49: Q6HPRN, [place] 5) 5-325 mg 43 Starting Medi kofi tablet 1 [facility] tablet 10/25/20 at 1149, Until Discontinu ed, Routine, Pain (scale 7-10) hydralAZINE Yes 10mg 10 mg, Univ ers (APRESOLINE 10-25 Slow IV ity o f ) injection 16:48: Push, [place] 10 mg 34 Q6HPRN, Medical Starting Branch [facility] 10/25/20 at 1148, Until Discontinu ed, Routine, DBP=>100; SBP=>160, For SBP > 160
Ind ication: Hypertensi ve Emergency labetaloL Yes 20mg 20 mg, Univer s (NORMODYNE) 10-25 Slow IV ity o f injection 14:58: Push, [place] 20 mg 25 Q6HPRN, Medical Starting Branch [facility] 10/25/20 at 0958, Until Discontinu ed, TITA, For SBP > 170 or DBP > 105 diazePAM 2020- No 10mg 10 mg, Univer s (VALIUM) 10-25 Intravenou ity of injection 14:30: 13:45 s, ONCE, 1 [place] 10 mg 00 :00 dose, [facility] 10/25/20 at Branch 0930, STAT escitalopra Yes 10mg 10 mg, Univ ers m oxalate 10-25 Oral, ity of (LEXAPRO) 14:00: DAILY, [place] tablet 10 00 First dose Medi kofi mg on [facility] 10/25/20 at 0900, Until Discontinu ed, Routine pantoprazol Yes 40mg 40 mg, Univ ers e 10-25 Oral, ity of (PROTONIX) 14:00: DAILY, [place] EC tablet 00 First dose Medi kofi 40 mg on [facility] 10/25/20 at 0900, Until Discontinu ed, Routine acetaminoph Yes 650mg 650 mg, Un jaqueline en 10-25 Oral, ity of (TYLENOL) 13:42: Q6HPRN, [place] tablet 650 14 Starting Medic al mg [facility] 10/25/20 at 0842, Until Discontinu ed, Routine, Pain (scale 1-3), Temp > 38.5 C magnesium 2020- No 400mg 400 mg, Uni vers oxide 10-25 Oral, BID, ity of (MAG-OX 13:30: 12:59 8 doses, [place] 400) tablet 00 :00 First dose Me dical 400 mg on [facility] 10/25/20 at 0830, Last dose on 10/28/20 at 2000, Routine LORazepam 2020- No 1mg 1 mg, Slow U nivers (ATIVAN) 10-25 IV Push, ity of injection 1 05:30: 04:30 ONCE, 1 [place] mg 00 :00 dose, [facility] 10/25/20 at Branch 0030, Routine HYDROcodone 0 2020- No 1{tbl} 1 tablet, Univers -acetaminop 10-24 Oral, ity of hen (NORCO 22:45: 22:14 ONCE, 1 [place] 5) 5-325 mg 00 :00 dose, Wed Med ical tablet 1 10/24/20 at [facility] h tablet 1745, Routine enoxaparin Yes 40mg 40 mg, Unive rs (LOVENOX) 10-24 Subcutaneo ity of injection 22:00: us, DAILY, [place] 40 mg 00 First dose Medical on Thu Branch 10/24/20 at 1700, Until Discontinu ed, Routine sulfur 2020-2020- No [id number] 5mL 5 mL, Unive rs hexafluorid 10-24 Intravenou i ty of e microsphr 21:15: 21:15 s, ONCE, 1 [place] (LUMASON) 00 :00 dose, Thu Medic al injection 5 10/24/20 at Br [place] mL 1615, Routine
member certification manager approving Restricted medication : JASPREET GOFF proMETHazin [...] TITA metoprolol 2020- No 50mg 50 mg, [facility] ers tartrate 10-2417 Oral, BID, ity of (LOPRESSOR) 17:15: 16:49 First dose [place] tablet 50 00 :21 on Thu Medical mg 10/24/20 at Branch 1215, Until Discontinu ed, Routine ondansetron Yes 4mg 4 mg, Unive rs (ZOFRAN-ODT 10-24 Oral, ity of ) 17:02: Q8HPRN, [place] disintegrat 20 Starting Medi kofi ing tablet Wed Branch 4 mg 10/24/20 at 1202, Until Discontinu ed, Routine, Nausea and Vomiting (N/V) LORazepam No 2mg 2 mg, Slow U nivers (ATIVAN) 10-24 IV Push, ity of injection 2 17:00: 16:01 ONCE, 1 [place] mg 00 :00 dose, [facility] Medical 10/24/20 at Branch 1200, STAT labetaloL 2020- No 20mg 20 mg, Unive rs (NORMODYNE) 10-24 Slow IV ity of injection 17:00: 16:01 Push, [place] 20 mg 00 :00 ONCE, 1 Medical dose, [facility] Branch 10/24/20 at 1200, TITA lactated 2020- No 30mL/kg at 999 Uni vers ringers IV 10-24 mL/hr, ity of infusion 16:45: 18:17 2,925 mL [place] 2,925 mL 00 :00 (30 mL/kg Medica l ?97.5 kg), [place] IV Infusion, ONCE, 1 dose, 10/24/20 at [...] injection 42 Starting Medica l 25 mL [facility] Branch 10/24/20 at 1143, Until Discontinu ed, [...] IV Push, ity of (PF)) 14:58: Q6HPRN, [place] injection 4 39 Starting Medi kofi mg Thu [place] 10/24/20 at 0958, Until Discontinu ed, Routine, [...] mg 00 First dose Medical on Thu [place] 10/24/20 at 0900, Until Discontinu ed, Routine [...] 1 [place] mg 00 :00 dose, [facility] Medical 10/24/20 at Branch 0845, STAT ondansetron [...] mg 00 :00 ONCE, 1 Medical dose, [facility] 10/24/20 at 0845, TITA oxazepam 2020- No 15mg 15 mg, Univer s (SERAX) 10-24 Oral, ity of capsule 15 13:40: 20:57 Q4HPRN, [place] mg 38 :53 Starting Medical [facility] Branch 10/24/20 at 0840, Until Thu10/26/20 at 1557, Routine, Only while awake for DBP equal to or greater than 100, HR equal to or greater than 100. iopamidol 2020- No [id number] 100mL 100 mL, Univers (ISOVUE 10-24 Intravenou ity o f 370-500 mL) 13:00: 11:40 s, ONCE, 1 [place] injection 00 :00 dose, Wed Medic al 100 mL 10/24/20 at Branch 0800, Routine LORazepam 2020- No 1mg 1 mg, Slow U nivers (ATIVAN) 10-24 IV Push, ity of injection 1 13:00: 11:54 ONCE, 1 [place] mg 00 :00 dose, [facility] Medical 10/24/20 at Branch 0800, STAT NaCl 0.9% 2020-2020- No 1000mL at 999 Uni vers (NS) bolus 10-24 mL/hr, ity of infusion 11:30: 11:27 1,000 mL, [place] 1,000 mL 00 :00 IV Medical Infusion, [place] ONCE, 1 dose, 10/24/20 at 0630, STAT metoprolol 2020-0 2020- No 5mg 5 mg, Slow Univers (LOPRESSOR) 07-29 IV Push, ity of injection 5 00:30: 23:26 ONCE, 1 [place] mg 00 :00 dose, [facility] 07/28/20 at Branch 1930, TITA NaCl 0.9% 2020- No 1000mL at 999 Uni vers (NS) bolus 07-28 mL/hr, ity of infusion 22:15: 00:55 1,000 mL, [place] 1,000 mL 00 :00 IV Medical Infusion, [place] ONCE, 1 dose, 07/28/20 at 1715, STAT LORazepam 2020-2020- No 1mg 1 mg, Slow U nivers (ATIVAN) 07-28 IV Push, ity of injection 1 22:15: 21:18 ONCE, 1 [place] mg 00 :00 dose, [facility] 07/28/20 at Branch 1715, STAT LORazepam 2020-0 2020- No 1mg 1 mg, Slow U nivers (ATIVAN) 07-28 IV Push, ity of injection 1 19:31: 19:31 ONCE, 1 [place] mg 00 :00 dose, [facility] Medical 07/28/20 at Branch 1445, STAT LORazepam 2020-0 2020- No 1mg 1 mg, Slow U nivers (ATIVAN) 07-28 IV Push, ity of injection 1 19:30: 18:28 ONCE, 1 [place] mg 00 :00 dose, [facility] 07/28/20 at [place] 1430, STAT [...] dose, 06/30/20 at 0600, TITA metoprolol Yes [id number] 50mg Take 2 U nivers tartrate 25 2-20 tablets by it y of mg tablet 00:00: mouth [place] ([facility]) Medical times Branch daily. metoprolol Yes [id number] 50mg Take 2 U nivers tartrate 25 2-20 tablets by it y of mg tablet 00:00: mouth [place] ([facility]) Medical times Branch daily. metoprolol Yes [id number] 50mg Take 2 U nivers tartrate 25 2-20 tablets by it y of mg tablet 00:00: mouth [place] ([facility]) Medical times Branch daily. metoprolol 0 Yes [id number] 50mg Take 2 U nivers tartrate 25 2-20 tablets by it y of mg tablet 00:00: mouth [place] (two) Medical times Branch daily. metoprolol Yes [id number] 50mg Take 2 U nivers tartrate 25 2-20 tablets by it y of mg tablet 00:00: mouth [place] (two) Medical times Branch daily. metoprolol Yes [id number] 50mg Take 2 U nivers tartrate 25 2-20 tablets by it y of mg tablet 00:00: mouth [place] ([facility]) Medical times Branch daily. metoprolol 0 Yes [id number] 50mg Take 2 U nivers tartrate 25 2-20 tablets by it y of mg tablet 00:00: mouth [place] (two) Medical times Branch daily. metoprolol Yes [id number] 50mg Take 2 U nivers tartrate 25 2-20 tablets by it y of mg tablet 00:00: mouth (two) Medical times Branch daily. metoprolol 2020-0 Yes [id number] 50mg Take 2 U nivers tartrate 25 2-20 tablets by it y of mg tablet 00:00: mouth (two) Medical times Branch daily. metoprolol 2020-0 Yes [id number] 50mg Take 2 U nivers tartrate 25 2-20 tablets by it y of mg tablet 00:00: mouth (two) Medical times Branch daily. metoprolol 2020-0 Yes [id number] 50mg Take 2 U nivers tartrate 25 2-20 tablets by it y of mg tablet 00:00: mouth (two) Medical times Branch daily. metoprolol 2020-0 Yes [id number] 50mg Take 2 U nivers tartrate 25 2-20 tablets by it y of mg tablet 00:00: mouth (two) Medical times Branch daily. metoprolol 2020-0 Yes [id number] 50mg Take 2 U nivers tartrate 25 2-20 tablets by it y of mg tablet 00:00: mouth (two) Medical times Branch daily. metoprolol 2020-0 2021- No [id number] 50mg Take 2 Univers tartrate 25 2-20 03-30 tablets by i ty of mg tablet 00:00: 00:00 mouth 2 [place] 00 :00 (two) Medical times Branch daily. ibuprofen 2020-2020- No 600mg 600 mg, Uni vers (IBU) 06-23 Oral, ity of tablet 600 21:15: 20:35 ONCE, 1 [place] mg 00 :00 dose, Sat Medical 06/23/20 at Branch 1515, TITA ibuprofen 2020-0 Yes [id number] 600mg Take 1 Univers 600 mg - [id number] tablet by ity of tablet 00:00: mouth 00 every 6 Medical (six) Branch hours as needed for Pain (scale 4-6). ibuprofen 2020-0 Yes [id number] 600mg Take 1 Univers 600 mg - [id number] tablet by ity of tablet 00:00: mouth 00 every 6 Medical (six) Branch hours as needed for Pain (scale 4-6). ibuprofen 2020-0 Yes [id number] 600mg Take 1 Univers 600 mg 06-23 [id number] tablet by ity of tablet 00:00: mouth [place] 00 every 6 Medical (six) Branch hours as needed for Pain (scale 4-6). ibuprofen 2020- No [id number] 600mg Take 1 Univers 600 mg 06-23- [id number] tablet by ity o f tablet 00:00: 00:00 mouth [place] 00 :00 every 6 Medical (six) Branch hours as needed for Pain (scale 4-6). venlafaxine 2019- No [id number] 225mg QD Take 3 M ethodi XR 02-[address] (EFFEXOR-XR 00:00: 04:59 (225 mg Ho [facility] ) 75 MG 24 00 :00 total) by l hr capsule mouth every morning for 7 days .major depressive disorder. nicotine 2019- No [id number] 2mg Q2H Chew 1 Metho di polacrilex 01-31 each ([address] (NICORETTE) 00:00: 04:59 total) Hos sugey 2 mg gum 00 :00 every 2 l (two) hours as needed for smoking cessation for up to 30 days .stop smoking. metoprolol 2019- No [id number] 50mg Q.5D Take 1 Met hodi tartrate 01-31 tablet (50 st (LOPRESSOR) 00:00: 04:59 mg total) Hospita 50 mg 00 :00 by mouth l tablet BID at 0700, 1900 for 30 days .high blood pressure. busPIRone 2019- No [id number] 7.5mg Q.5D Take 1 Met hodi (BUSPAR) [...] 1,000 mL 00 :00 IV Medical Piggyback, [place] ONCE, 1 dose, [facility] 09/29/19 at 1100, STAT loperamide 2020-0 Yes 2mg 2 mg, Univer s (IMODIUM - Oral, ity of A-D) 14:53: Q4HPRN, [place] capsule 2 46 Starting Medica l mg [facility] Branch 09/29/19 at 0953, Until Discontinu ed, Routine, Diarrhea ondansetron 2020-0 Yes [id number] 4mg Take 1 U nivers 4 mg 5-21 tablet by ity of disintegrat 00:00: mouth [place] ing tablet 00 every 8 Medica l (eight) Branch hours as needed for Nausea and Vomiting (N/V). loperamide 2020-0 Yes [id number] 2mg Take 1 Un jaqueline 2 mg 5-21 capsule by ity of capsule 00:00: mouth [place] 00 every 4 Medical (four) Branch hours as needed for Diarrhea. Not to exceed 16mg daily. ondansetron 2020-0 Yes [id number] 4mg Take 1 U nivers 4 mg 5-21 tablet by ity of disintegrat 00:00: mouth [place] ing tablet 00 every 8 Medica l (eight) Branch hours as needed for Nausea and Vomiting (N/V). loperamide 2020-0 Yes [id number] 2mg Take 1 Un jaqueline 2 mg 5-21 capsule by ity of capsule 00:00: mouth [place] 00 every 4 Medical (four) Branch hours as needed for Diarrhea. Not to exceed 16mg daily. ondansetron 2020-0 Yes [id number] 4mg Take 1 U nivers 4 mg 5-21 tablet by ity of disintegrat 00:00: mouth [place] ing tablet 00 every 8 Medica l (eight) Branch hours as needed for Nausea and Vomiting (N/V). loperamide 2020-0 Yes [id number] 2mg Take 1 Un jaqueline 2 mg 5-21 capsule by ity of capsule 00:00: mouth [place] 00 every 4 Medical (four) Branch hours as needed for Diarrhea. Not to exceed 16mg daily. ondansetron 2020-0 Yes [id number] 4mg Take 1 U nivers 4 mg 5-21 tablet by ity of disintegrat 00:00: mouth [place] ing tablet 00 every 8 Medica l (eight) Branch hours as needed for Nausea and Vomiting (N/V). loperamide 2020-0 Yes [id number] 2mg Take 1 Un jaqueline 2 mg 5-21 capsule by ity of capsule 00:00: mouth [place] 00 every 4 Medical (four) Branch hours as needed for Diarrhea. Not to exceed 16mg daily. ondansetron 2020-0 Yes [id number] 4mg Take 1 U nivers 4 mg 5-21 tablet by ity of disintegrat 00:00: mouth [place] ing tablet 00 every 8 Medica l (eight) Branch hours as needed for Nausea and Vomiting (N/V). loperamide 2020-0 Yes [id number] 2mg Take 1 Un jaqueline 2 mg 5-21 capsule by ity of capsule 00:00: mouth [place] 00 every 4 Medical (four) Branch hours as needed for Diarrhea. Not to exceed 16mg daily. ondansetron 2020-0 Yes [id number] 4mg Take 1 U nivers 4 mg 5-21 tablet by ity of disintegrat 00:00: mouth [place] ing tablet 00 every 8 Medica l (eight) Branch hours as needed for Nausea and Vomiting (N/V). ondansetron 2020-0 Yes [id number] 4mg Take 1 U nivers 4 mg 5-21 tablet by ity of disintegrat 00:00: mouth [place] ing tablet 00 every 8 Medica l (eight) Branch hours as needed for Nausea and Vomiting (N/V). ondansetron 2020-0 Yes [id number] 4mg Take 1 U nivers 4 mg 5-21 tablet by ity of disintegrat 00:00: mouth [place] ing tablet 00 every 8 Medica l (eight) Branch hours as needed for Nausea and Vomiting (N/V). ondansetron 2019-2020- No [id number] 4mg Take 1 Univers 4 mg 5-21 -16 tablet by ity of disintegrat 00:00: 00:00 mouth [place] ing tablet 00 :00 every 8 Medica l (eight) Branch hours as needed for Nausea and Vomiting (N/V). ondansetron 2019-2020- No [id number] 4mg Take 1 Univers 4 mg 5-21 -16 tablet by ity of disintegrat 00:00: 00:00 mouth [place] ing tablet 00 :00 every 8 Medica l (eight) Branch hours as needed for Nausea and Vomiting (N/V). loperamide [id number] 2mg Take 1 U nivers 2 mg -29 10-20 capsule by ity of capsule 00:00: 00:00 mouth [place] 00 :00 every 4 Medical (four) Branch hours as needed for Diarrhea. Not to exceed 16mg daily. dicyclomine No [id number] 10mg Take 1 Univers (BENTYL) 10 - [...] 1 [place] mg 00 :00 dose, [facility] 06/16/19 at Branch 0945, STAT diazePAM 2019- No 2.5mg 2.5 mg, Univ ers (VALIUM) 2 02-06 Oral, ity of tablet 2.5 14:15: 14:08 ONCE, 1 [place] mg 00 :00 dose, [facility] 06/16/19 at Branch 0815, TITA LORazepam 2019- No 1mg 1 mg, Slow U nivers (ATIVAN) 06-15 02-05 IV Push, ity of injection 1 20:00: 18:59 ONCE, 1 [place] mg 00 :00 dose, [facility] 06/15/19 at Branch 1400, STAT metoprolol 2020-0 [...] 2 ity of XL (TOPROL 16:21: (two) [place] XL) 25 mg 12 times Medical 24 hr daily. Branch tablet diazePAM 2020-0 Yes 10mg Take 10 mg Uni vers (VALIUM) 10 1-19 by mouth 2 it y of mg tablet 16:21: (two) [place] 12 times Medical daily. Branch metoprolol 2020-0 Yes 50mg Take 50 mg U nivers succinate 1-19 by mouth 2 ity of XL (TOPROL 16:21: (two) [place] XL) 25 mg 12 times Medical 24 hr daily. Branch tablet diazePAM 2020-0 Yes 10mg Take 10 mg Uni vers (VALIUM) 10 1-19 by mouth 2 it y of mg tablet 16:21: ([facility]) [place] 12 times Medical daily. Branch metoprolol 2020-0 Yes 50mg Take 50 mg U nivers succinate 1-19 by mouth 2 ity of XL (TOPROL 16:21: (two) [place] XL) 25 mg 12 times Medical 24 hr daily. Branch tablet diazePAM 2020-0 Yes 10mg Take 10 mg Uni vers (VALIUM) 10 1-19 by mouth 2 it y of mg tablet 16:21: (two) [place] 12 times Medical daily. Branch metoprolol 2020-0 Yes 50mg Take 50 mg U nivers succinate 1-19 by mouth 2 ity of XL (TOPROL 16:21: (two) [place] XL) 25 mg 12 times Medical 24 hr daily. Branch tablet diazePAM 2020-0 Yes 10mg Take 10 mg Uni vers (VALIUM) 10 1-19 by mouth 2 it y of mg tablet 16:21: (two) [place] 12 times Medical daily. Branch amoxicillin 2020-0 2020- No [id number] 500mg Take 1 Univers 500 mg 05-29 capsule by ity of capsule 00:00: 05:59 mouth 2 [place] 00 :00 (two) Medical times Branch daily for 10 days. amoxicillin 2020-0 2020- No [id number] 500mg Take 1 Univers 500 mg 1-19 [...] times Medical daily. Branch pantoprazol 2018-05 Yes [id number] 40mg Take 1 Univers e 0-12 tablet by ity of (PROTONIX) 00:00: mouth [place] 40 mg EC 00 daily. Medical tablet Branch pantoprazol 2018-05 Yes [id number] 40mg Take 1 Univers e 0-12 tablet by ity of (PROTONIX) 00:00: mouth [place] 40 mg EC 00 daily. Medical tablet Branch pantoprazol 2018-05 Yes [id number] 40mg Take 1 Univers e 0-12 tablet by ity of (PROTONIX) 00:00: mouth [place] 40 mg EC 00 daily. Medical tablet Branch pantoprazol 2018-05 Yes [id number] 40mg Take 1 Univers e 0-12 tablet by ity of (PROTONIX) 00:00: mouth [place] 40 mg EC 00 daily. Medical tablet Branch pantoprazol 2018-05 Yes [id number] 40mg Take 1 Univers e 0-12 tablet by ity of (PROTONIX) 00:00: mouth [place] 40 mg EC 00 daily. Medical tablet Branch pantoprazol 2018-05 Yes [id number] 40mg Take 1 Univers e 0-12 tablet by ity of (PROTONIX) 00:00: mouth [place] 40 mg EC 00 daily. Medical tablet Branch pantoprazol 2018-05 Yes [id number] 40mg Take 1 Univers e 0-12 tablet by ity of (PROTONIX) 00:00: mouth [place] 40 mg EC 00 daily. Medical tablet Branch pantoprazol 2018-05 Yes [id number] 40mg Take 1 Univers e 0-12 tablet by ity of (PROTONIX) 00:00: mouth [place] 40 mg EC 00 daily. Medical tablet Branch pantoprazol 2018-05 Yes [id number] 40mg Take 1 Univers e 0-12 tablet by ity of (PROTONIX) 00:00: mouth [place] 40 mg EC 00 daily. Medical tablet Branch pantoprazol 2018-05 Yes [id number] 40mg Take 1 Univers e 0-12 tablet by ity of (PROTONIX) 00:00: mouth [place] 40 mg EC 00 daily. Medical tablet Branch pantoprazol 2018-05 Yes [id number] 40mg Take 1 Univers e 0-12 tablet by ity of (PROTONIX) 00:00: mouth [place] 40 mg EC 00 daily. Medical tablet Branch pantoprazol 2018-05 Yes [id number] 40mg Take 1 Univers e 0-12 tablet by ity of (PROTONIX) 00:00: mouth [place] 40 mg EC 00 daily. Medical tablet Branch pantoprazol 2018-05 Yes [id number] 40mg Take 1 Univers e 0-12 tablet by ity of (PROTONIX) 00:00: mouth [place] 40 mg EC 00 daily. Medical tablet Branch pantoprazol 2018-05 Yes [id number] 40mg Take 1 Univers e 0-12 tablet by ity of (PROTONIX) 00:00: mouth [place] 40 mg EC 00 daily. Medical tablet Branch pantoprazol 2018-05 Yes [id number] 40mg Take 1 Univers e 0-12 tablet by ity of (PROTONIX) 00:00: mouth [place] 40 mg EC 00 daily. Medical tablet Branch pantoprazol 2018-05 Yes [id number] 40mg Take 1 Univers e 0-12 tablet by ity of (PROTONIX) 00:00: mouth [place] 40 mg EC 00 daily. Medical tablet Branch pantoprazol 2018-05 Yes [id number] 40mg Take 1 Univers e 0-12 tablet by ity of (PROTONIX) 00:00: mouth [place] 40 mg EC 00 daily. Medical tablet Branch pantoprazol 2018-05 Yes [id number] 40mg Take 1 Univers e 0-12 tablet by ity of (PROTONIX) 00:00: mouth [place] 40 mg EC 00 daily. Medical tablet Branch pantoprazol 2018-05 Yes [id number] 40mg Take 1 Univers e 0-12 tablet by ity of (PROTONIX) 00:00: mouth [place] 40 mg EC 00 daily. Medical tablet Branch pantoprazol 2018-05 Yes [id number] 40mg Take 1 Univers e 0-12 tablet by ity of (PROTONIX) 00:00: mouth [place] 40 mg EC 00 daily. Medical tablet Branch pantoprazol 2018-05 Yes [id number] 40mg Take 1 Univers e 0-12 tablet by ity of (PROTONIX) 00:00: mouth [place] 40 mg EC 00 daily. Medical tablet Branch pantoprazol 2018-05 Yes [id number] 40mg Take 1 Univers e 0-12 tablet by ity of (PROTONIX) 00:00: mouth [place] 40 mg EC 00 daily. Medical tablet Branch pantoprazol 2018-05- No [id number] 40mg Take 1 Univers e 0-12 03-28 tablet by ity of (PROTONIX) 00:00: 00:00 mouth [place] 40 mg EC 00 :00 daily. Medical tablet Branch ketorolac 2018- No 15mg 15 mg, Unive rs (TORADOL) 01-25 Slow IV ity of injection 01:00: 23:57 Push, [place] 15 mg 00 :00 ONCE, 1 Medical dose, [facility] Branch 01/24/19 at 2000, Routine
member certification manager approving Restricted medication : JERRY MARTIN NaCl 0.9% 2018- No 1000mL at 999 Uni vers (NS) bolus 01-24 mL/hr, ity of infusion 21:15: 23:58 1,000 mL, [place] 1,000 mL 00 :00 IV Medical Infusion, Branch ONCE, 1 dose, [facility] 01/24/19 at 1615, TITA methocarbam Yes [id number] 500mg Take 1 Univers ol 500 mg 9-16 tablet by ity o f tablet 00:00: mouth (four) Medical times Branch daily. methocarbam Yes [id number] 500mg Take 1 Univers ol 500 mg 9-16 tablet by ity o f tablet 00:00: mouth (four) Medical times Branch daily. methocarbam Yes [id number] 500mg Take 1 Univers ol 500 mg 9-16 tablet by ity o f tablet 00:00: mouth (four) Medical times Branch daily. methocarbam Yes [id number] 500mg Take 1 Univers ol 500 mg 9-16 tablet by ity o f tablet 00:00: mouth (four) Medical times Branch daily. methocarbam Yes [id number] 500mg Take 1 Univers ol 500 mg 9-16 tablet by ity o f tablet 00:00: mouth 4 [place] ([facility]) Medical times Branch daily. methocarbam 2018- Yes [id number] 500mg Take 1 Univers ol 500 mg 9-16 tablet by ity o f tablet 00:00: mouth 4 [place] (four) Medical times Branch daily. methocarbam 2018- Yes [id number] 500mg Take 1 Univers ol 500 mg 9-16 tablet by ity o f tablet 00:00: mouth 4 [place] 00 (four) Medical times Branch daily. methocarbam 2018- Yes [id number] 500mg Take 1 Univers ol 500 mg 9-16 tablet by ity o f tablet 00:00: mouth 4 [place] 00 ([facility]) Medical times Branch daily. methocarbam 2018- Yes [id number] 500mg Take 1 Univers ol 500 mg 9-16 tablet by ity o f tablet 00:00: mouth 4 [place] ([facility]) Medical times Branch daily. methocarbam Yes [id number] 500mg Take 1 Univers ol 500 mg 9-16 tablet by ity o f tablet 00:00: mouth [address] [place] [address] ([facility]) Medical times Branch daily. methocarbam Yes [id number] 500mg Take 1 Univers ol 500 mg 9-16 tablet by ity o f tablet 00:00: mouth [address] [place] [address] ([facility]) Medical times Branch daily. methocarbam Yes [id number] 500mg Take 1 Univers ol 500 mg 9-16 tablet by ity o f tablet 00:00: mouth 4 [place] ([facility]) Medical times Branch daily. methocarbam 2020- No [id number] 500mg Take 1 Univers ol 500 mg 9-16 06-20 tablet by ity of tablet 00:00: 00:00 mouth 4 [place] 00 :00 ([facility]) Medical times Branch daily. ketorolac 2018- No 30mg 30 mg, Unive rs (TORADOL) 12-21 Slow IV ity of injection 23:45: 23:22 Push, [place] 30 mg 00 :00 ONCE, 1 Medical dose, e Branch 12/21/18 at 1845, TITA
[facility] Rest[facility] medication : DEMOND PERSON dicyclomine 2018- No 20mg 20 mg, Uni vers (BENTYL) 12-21 Oral, ONCE ity of capsule 20 23:45: 23:22 NOW, 1 [place] mg 00 :00 dose, [facility] Medical 12/21/18 at Branch 1845, Routine ondansetron 2019- No 4mg 4 mg, Slow Univers (ZOFRAN 12-21 IV Push, ity of (PF)) 22:30: 22:25 ONCE, 1 [place] injection 4 00 :00 dose, [facility] Med ical mg 12/21/18 at Branch 1730, TITA NaCl 0.9% 2019- No 1000mL at 999 Uni vers (NS) bolus 12-21 mL/hr, ity of infusion 22:30: 23:34 1,000 mL, Manfred as 1,000 mL 00 :00 IV Medical Infusion, Branch ONCE, 1 dose, [facility] 12/21/18 at 1730, STAT ondansetron 2018-0 Yes [id number] 4mg Take 1 Univers (ZOFRAN 8-13 tablet by ity of ODT) 4 mg 00:00: mouth [place] disintegrat 00 every 8 Medic al ing tablet (eight) Branch hours as needed for Nausea and Vomiting (N/V). dicyclomine 2019-0 Yes [id number] 20mg Take 1 Univers (BENTYL) 20 8-13 tablet by ity of mg tablet 00:00: mouth 3 [place] 00 (three) Medical times Branch daily as needed for Abdominal pain. ondansetron 2019-0 Yes [id number] 4mg Take 1 Univers (ZOFRAN 8-13 tablet by ity of ODT) 4 mg 00:00: mouth [place] disintegrat 00 every 8 Medic al ing tablet (eight) Branch hours as needed for Nausea and Vomiting (N/V). dicyclomine 2019-0 Yes [id number] 20mg Take 1 Univers (BENTYL) 20 8-13 tablet by ity of mg tablet 00:00: mouth 3 [place] 00 (three) Medical times Branch daily as needed for Abdominal pain. ondansetron 2019-0 Yes [id number] 4mg Take 1 Univers (ZOFRAN 8-13 tablet by ity of ODT) 4 mg 00:00: mouth [place] disintegrat 00 every 8 Medic al ing tablet (eight) Branch hours as needed for Nausea and Vomiting (N/V). dicyclomine 2019-0 Yes [id number] 20mg Take 1 Univers (BENTYL) 20 8-13 tablet by ity of mg tablet 00:00: mouth 3 [place] 00 (three) Medical times Branch daily as needed for Abdominal pain. ondansetron 2019-0 Yes [id number] 4mg Take 1 Univers (ZOFRAN 8-13 tablet by ity of ODT) 4 mg 00:00: mouth [place] disintegrat 00 every 8 Medic al ing tablet (eight) Branch hours as needed for Nausea and Vomiting (N/V). dicyclomine 2019-0 Yes [id number] 20mg Take 1 Univers (BENTYL) 20 8-13 tablet by ity of mg tablet 00:00: mouth 3 [place] 00 (three) Medical times Branch daily as needed for Abdominal pain. ondansetron 2019-0 Yes [id number] 4mg Take 1 Univers (ZOFRAN 8-13 tablet by ity of ODT) 4 mg 00:00: mouth [place] disintegrat 00 every 8 Medic al ing tablet (eight) Branch hours as needed for Nausea and Vomiting (N/V). dicyclomine 2019-0 Yes [id number] 20mg Take 1 Univers (BENTYL) 20 8-13 tablet by ity of mg tablet 00:00: mouth 3 [place] 00 (three) Medical times Branch daily as needed for Abdominal pain. ondansetron 2019-0 Yes [id number] 4mg Take 1 Univers (ZOFRAN 8-13 tablet by ity of ODT) 4 mg 00:00: mouth [place] disintegrat 00 every 8 Medic al ing tablet (eight) Branch hours as needed for Nausea and Vomiting (N/V). dicyclomine 2019-0 Yes [id number] 20mg Take 1 Univers (BENTYL) 20 8-13 tablet by ity of mg tablet 00:00: mouth 3 [place] 00 (three) Medical times Branch daily as needed for Abdominal pain. ondansetron 2019-0 Yes [id number] 4mg Take 1 Univers (ZOFRAN 8-13 tablet by ity of ODT) 4 mg 00:00: mouth [place] disintegrat 00 every 8 Medic al ing tablet (eight) Branch hours as needed for Nausea and Vomiting (N/V). dicyclomine 2019-0 Yes [id number] 20mg Take 1 Univers (BENTYL) 20 8-13 tablet by ity of mg tablet 00:00: mouth 3 [place] 00 (three) Medical times Branch daily as needed for Abdominal pain. ondansetron 2018-0 Yes [id number] 4mg Take 1 Univers (ZOFRAN 8-13 tablet by ity of ODT) 4 mg 00:00: mouth [place] disintegrat 00 every 8 Medic al ing tablet (eight) Branch hours as needed for Nausea and Vomiting (N/V). dicyclomine 2018- Yes [id number] 20mg Take 1 Univers (BENTYL) 20 8-13 tablet by ity of mg tablet 00:00: mouth 3 [place] 00 (three) Medical times Branch daily as needed for Abdominal pain. ondansetron Yes [id number] 4mg Take 1 Univers (ZOFRAN 8-13 tablet by ity of ODT) 4 mg 00:00: mouth [place] disintegrat 00 every 8 Medic al ing tablet (eight) Branch hours as needed for Nausea and Vomiting (N/V). dicyclomine Yes [id number] 20mg Take 1 Univers (BENTYL) 20 8-13 tablet by ity of mg tablet 00:00: mouth 3 [place] 00 (three) Medical times Branch daily as needed for Abdominal pain. ondansetron 2020- No [id number] 4mg Take 1 Univers (ZOFRAN 8-13 05-21 tablet by ity of ODT) 4 mg 00:00: 00:00 mouth [place] disintegrat 00 :00 every 8 Medic al ing tablet (eight) Branch hours as needed for Nausea and Vomiting (N/V). dicyclomine 2020- No [id number] 20mg Take 1 Univers (BENTYL) 20 8-13 [...] it y of mg tablet 22:02: (two) [place] 32 times Medical daily. Branch metoprolol [...] 2014-05 Yes 10mg Take 1 Tab Un jaqueilne (BUSPAR) 10 2-14 by mouth 2 it [...] it y of mg tablet 00:00: (two) [place] 00 times Medical daily. Branch busPIRone 2014-05 Yes 10mg Take 1 Tab Un jaqueline (BUSPAR) 10 2-14 by mouth 2 it y of mg tablet 00:00: (two) [place] 00 times Medical daily. Branch busPIRone 2014-05- No 10mg Take 1 Tab U nivers (BUSPAR) 10 2-14 06-20 by mouth 2 i ty of mg tablet 00:00: 00:00 (two) [place] 00 :00 times Medical daily. Branch [...] blood 2021-09-30 02:00:00 131 mm[Hg] Univer sity [facility] Diastolic blood 2021-09-30 02:00:00 80 mm[Hg] [facility] [place] Heart rate 2021-09-30 02:00:00 89 /min [facility] Respiratory rate 2021-09-30 02:00:00 15 /min [facility] Oxygen saturation in 2021-09-30 02:00:00 94 /min [facility] Arterial blood by [facility] Pulse oximetry Branch Body temperature 2021-09-30 01:22:00 36.72 Siobhan [facility] Body height 2021-09-30 01:22:00 170.2 cm [facility] [place] [facility] Body weight 2021-09-30 01:22:00 104.327 kg [facility] [place] [facility] BMI 2021-09-30 01:22:00 36.02 kg/m2 [facility] [place] [facility] Body temperature 2021-09-14 00:00:00 37.17 Siobhan [facility] [place] [facility] Systolic blood 2021-09-13 21:00:00 145 mm[Hg] Univer sity of [facility] [place] [facility] Diastolic blood 2021-09-13 21:00:00 98 mm[Hg] Unive rsity of [facility] [place] [facility] Heart rate 2021-09-13 21:00:00 75 /min [facility] [place] [facility] Respiratory rate 2021-09-13 21:00:00 15 /min [facility] [place] [facility] Oxygen saturation in 2021-09-13 21:00:00 96 /min University of Arterial blood by [employer] Pulse oximetry Branch Body weight 2021-09-13 11:00:00 104.463 kg [facility] [place] [facility] BMI 2021-09-13 11:00:00 36.07 kg/m2 [facility] [place] [facility] Body height 2021-09-12 16:00:00 170.2 cm [facility] [place] [facility] Systolic blood 2021-09-06 12:14:00 133 mm[Hg] Univer sity [facility] [place] [facility] Diastolic blood 2021-09-06 12:14:00 84 mm[Hg] Unive rsity [facility] [place] [facility] Heart rate 2021-09-06 12:14:00 78 /min [facility] [place] [facility] Body temperature 2021-09-06 12:14:00 36.11 Siobhan [facility] [place] [facility] Respiratory rate 2021-09-06 12:14:00 17 /min [facility] [place] [facility] Oxygen saturation in 2021-09-06 12:14:00 96 /min University of Arterial blood by [employer] kofi Pulse oximetry Branch Body height 2021-09-05 20:10:00 170.2 cm [facility] [place] [facility] Body weight 2021-09-05 20:10:00 99.791 kg [facility] [place] [facility] BMI 2021-09-05 20:10:00 34.46 kg/m2 [facility] [place] [facility] Systolic blood 2021-08-07 16:16:00 132 mm[Hg] Univer sity [facility] [place] [facility] Diastolic blood 2021-08-07 16:16:00 86 mm[Hg] Unive rsity [facility] [place] [facility] Heart rate 2021-08-07 16:16:00 71 /min [facility] [place] [facility] Body temperature 2021-08-07 16:16:00 36.22 Siobhan [facility] [place] [facility] Respiratory rate 2021-08-07 16:16:00 18 /min [facility] [place] [facility] Oxygen saturation in 2021-08-07 16:16:00 94 /min [facility] Arterial blood by [employer] Pulse oximetry Branch Body height 2021-08-06 20:45:00 170.2 cm [facility] [place] [facility] Body weight 2021-08-06 20:45:00 104.327 kg [facility] [place] [facility] BMI 2021-08-06 20:45:00 36.02 kg/m2 [facility] [place] [facility] WEIGHT 2021-07-15 23:46:00 100 kg WEIGHT 2021-07-15 23:46:00 100 kg Systolic blood 2021-06-05 18:40:00 149 mm[Hg] Univer sity [facility] [place] [facility] Diastolic blood 2021-06-05 18:40:00 74 mm[Hg] Unive rsity [facility] [place] [facility] Heart rate 2021-06-05 18:40:00 80 /min [facility] [place] [facility] Respiratory rate 2021-06-05 18:40:00 17 /min [facility] [place] [facility] Oxygen saturation in 2021-06-05 18:40:00 100 /min [facility] of Arterial blood by [employer] kofi Pulse oximetry Branch Body temperature 2021-06-05 15:05:00 36.11 Siobhan [facility] [place] [facility] Body height 2021-06-05 15:05:00 170.2 cm [facility] [place] [facility] Body weight 2021-06-05 15:05:00 99.338 kg [facility] [place] [facility] BMI 2021-06-05 15:05:00 34.30 kg/m2 [facility] [place] [facility] Systolic blood 2021-05-27 18:00:00 146 mm[Hg] Univer sity [facility] [place] [facility] Diastolic blood 2021-05-27 18:00:00 130 mm[Hg] Unive rsity [facility] [place] [facility] Heart rate 2021-05-27 18:00:00 85 /min [facility] [place] [facility] Oxygen saturation in 2021-05-27 18:00:00 97 /min [facility] Arterial blood by [place] [facility] Pulse oximetry Branch Respiratory rate 2021-05-27 17:52:00 18 /min [facility] [place] [facility] Body temperature 2021-05-27 15:53:00 35.78 Siobhan [facility] [place] [facility] Body weight 2021-05-27 15:53:00 102.967 kg [facility] [place] [facility] BMI 2021-05-27 15:53:00 34.52 kg/m2 [facility] [place] [facility] Respiratory rate 2021-05-05 13:33:00 18 /min [facility] [place] [facility] Oxygen saturation in 2021-05-05 13:33:00 97 /min [facility] of Arterial blood by [place] [employer] kofi Pulse oximetry Branch Systolic blood 2021-05-05 12:44:00 155 mm[Hg] Univer sity of [facility] [place] [facility] Diastolic blood 2021-05-05 12:44:00 75 mm[Hg] Unive rsity [facility] [place] [facility] Heart rate 2021-05-05 12:44:00 59 /min [facility] [place] [facility] Body temperature 2021-05-05 12:44:00 36.5 Siobhan [facility] [place] [facility] Body height 2021-05-05 06:46:00 172.7 cm [facility] [place] [facility] Body weight 2021-05-05 06:46:00 102.967 kg [facility] [place] [facility] BMI 2021-05-05 06:46:00 34.52 kg/m2 [facility] [place] [facility] Systolic blood 2021-03-31 14:51:24 151 mm[Hg] Univer sity of [facility] [place] [facility] Diastolic blood 2021-03-31 14:51:24 98 mm[Hg] Unive rsity [facility] [place] [facility] Heart rate 2021-03-31 14:51:24 92 /min [facility] [place] [facility] Body temperature 2021-03-31 14:51:24 36.67 Siobhan [facility] [place] [facility] Respiratory rate 2021-03-31 14:51:24 18 /min [facility] [place] [facility] Body height 2021-03-31 14:35:00 170.2 cm [facility] [place] [facility] Body weight 2021-03-31 14:35:00 99.791 kg [facility] [place] [facility] BMI 2021-03-31 14:35:00 34.46 kg/m2 [facility] [place] [facility] Oxygen saturation in 2021-03-31 14:35:00 99 /min [facility] of Arterial blood by [facility] Pulse oximetry Branch Systolic blood 2021-02-18 16:00:00 110 mm[Hg] Univer sity of [facility] [place] [facility] Diastolic blood 2021-02-18 16:00:00 77 mm[Hg] Unive rsity [facility] [place] [facility] Heart rate 2021-02-18 16:00:00 61 /min [facility] [place] [facility] Respiratory rate 2021-02-18 16:00:00 15 /min [facility] [place] [facility] Oxygen saturation in 2021-02-18 16:00:00 98 /min [facility] of Arterial blood by [facility] Pulse oximetry Branch Body temperature 2021-02-18 13:14:00 36.33 Siobhan [facility] [place] [facility] Body weight 2021-02-18 13:14:00 99.791 kg [facility] [place] [facility] BMI 2021-02-18 13:14:00 34.45 kg/m2 [facility] [place] [facility] Systolic blood 2021-01-24 13:26:00 137 mm[Hg] Univer sity [facility] [place] [facility] Diastolic blood 2021-01-24 13:26:00 83 mm[Hg] Unive rsity [facility] [place] [facility] Heart rate 2021-01-24 13:26:00 96 /min [facility] [place] [facility] Body temperature 2021-01-24 13:26:00 37.39 Siobhan [facility] [place] [facility] Respiratory rate 2021-01-24 13:26:00 20 /min [facility] [place] [facility] Body weight 2021-01-24 13:26:00 99.791 kg [facility] [place] [facility] BMI 2021-01-24 13:26:00 34.45 kg/m2 [facility] [place] [facility] Oxygen saturation in 2021-01-24 13:26:00 95 /min [facility] Arterial blood by [facility] Pulse oximetry Branch Systolic blood 2020-12-07 15:00:00 121 mm[Hg] Univer sity of [facility] [place] [facility] Diastolic blood 2020-12-07 15:00:00 86 mm[Hg] Unive rsity [facility] [place] [facility] Heart rate 2020-12-07 15:00:00 79 /min [facility] [place] [facility] Body temperature 2020-12-07 15:00:00 36.22 Siobhan [facility] [place] [facility] Respiratory rate 2020-12-07 15:00:00 17 /min [facility] [place] [facility] Oxygen saturation in 2020-12-07 15:00:00 94 /min [facility] Arterial blood by [facility] Pulse oximetry Branch Body weight 2020-12-07 13:31:00 94.348 kg [facility] [place] [facility] BMI 2020-12-07 13:31:00 32.57 kg/m2 [facility] [place] [facility] Systolic blood 2020-10-28 12:21:00 150 mm[Hg] Univer sity of [facility] [place] [facility] Diastolic blood 2020-10-28 12:21:00 78 mm[Hg] Unive rsity of [facility] [place] [facility] Heart rate 2020-10-28 12:21:00 73 /min [facility] [place] [facility] Body temperature 2020-10-28 12:21:00 36.56 Siobhan [facility] [place] [facility] Respiratory rate 2020-10-28 12:21:00 11 /min [facility] [place] [facility] Oxygen saturation in 2020-10-28 12:21:00 98 /min [facility] Arterial blood by [facility] Pulse oximetry Branch Body weight 2020-10-28 09:00:00 94.666 kg [facility] [place] [facility] BMI 2020-10-28 09:00:00 32.68 kg/m2 [facility] [place] [facility] Body height 2020-10-25 13:00:00 170.2 cm [facility] [place] [facility] Systolic blood 2020-07-29 00:50:00 165 mm[Hg] Univer sity of [facility] [place] [facility] Diastolic blood 2020-07-29 00:50:00 103 mm[Hg] Unive rsity [facility] [place] [facility] Heart rate 2020-07-29 00:50:00 100 /min [facility] [place] [facility] Respiratory rate 2020-07-29 00:50:00 20 /min [facility] [place] [facility] Oxygen saturation in 2020-07-29 00:50:00 99 /min [facility] Arterial blood by [place] [employer] k[employer]i Pulse oximetry Branch Body temperature 2020-07-28 18:16:26 36.5 Siobhan [facility] [place] [facility] Body height 2020-07-28 18:14:00 170.2 cm [facility] [place] [facility] Body weight 2020-07-28 18:14:00 83.915 kg [facility] [place] [facility] BMI 2020-07-28 18:14:00 28.98 kg/m2 [facility] [place] [facility] Systolic blood 2020-07-29 00:50:00 165 mm[Hg] Univer sity [facility] [place] [facility] Diastolic blood 2020-07-29 00:50:00 103 mm[Hg] Unive rsity [facility] [place] [facility] Heart rate 2020-07-29 00:50:00 100 /min [facility] [place] [facility] Respiratory rate 2020-07-29 00:50:00 20 /min [facility] [place] [facility] Oxygen saturation in 2020-07-29 00:50:00 99 /min [facility] Arterial blood by [place] [employer] Pulse oximetry Branch Body temperature 2020-07-28 18:16:26 36.5 Siobhan [facility] [place] [facility] Body height 2020-07-28 18:14:00 170.2 cm [facility] [place] [facility] Body weight 2020-07-28 18:14:00 83.915 kg [facility] [place] [facility] BMI 2020-07-28 18:14:00 28.98 kg/m2 [facility] [place] [facility] Systolic blood 2020-06-30 15:00:00 145 mm[Hg] Univer sity [facility] [place] [facility] Diastolic blood 2020-06-30 15:00:00 82 mm[Hg] Unive rsity [facility] [place] [facility] Heart rate 2020-06-30 15:00:00 88 /min [facility] [place] [facility] Respiratory rate 2020-06-30 15:00:00 15 /min [facility] [place] [facility] Oxygen saturation in 2020-06-30 15:00:00 97 /min [facility] Arterial blood by [facility] Pulse oximetry Branch Body temperature 2020-06-30 11:30:00 36.17 Siobhan [facility] [place] [facility] Body height 2020-06-30 11:30:00 170.2 cm [facility] [place] [facility] Body weight 2020-06-30 11:30:00 83.915 kg [facility] [place] [facility] BMI 2020-06-30 11:30:00 28.98 kg/m2 [facility] [place] [facility] Systolic blood 2020-06-30 15:00:00 145 mm[Hg] Univer sity [facility] [place] [facility] Diastolic blood 2020-06-30 15:00:00 82 mm[Hg] Unive rsity [facility] [place] [facility] Heart rate 2020-06-30 15:00:00 88 /min [facility] [place] [facility] Respiratory rate 2020-06-30 15:00:00 15 /min [facility] [place] [facility] Oxygen saturation in 2020-06-30 15:00:00 97 /min [facility] Arterial blood by [facility] Pulse oximetry Branch Body temperature 2020-06-30 11:30:00 36.17 Siobhan [facility] [place] [facility] Body height 2020-06-30 11:30:00 170.2 cm [facility] [place] [facility] Body weight 2020-06-30 11:30:00 83.915 kg [facility] [place] [facility] BMI 2020-06-30 11:30:00 28.98 kg/m2 [facility] [place] [facility] Systolic blood 2020-06-23 21:33:48 151 mm[Hg] Univer sity of [facility] [place] [facility] Diastolic blood 2020-06-23 21:33:48 98 mm[Hg] Unive rsity [facility] [place] [facility] Heart rate 2020-06-23 21:33:48 98 /min [facility] [place] [facility] Respiratory rate 2020-06-23 21:33:48 16 /min [facility] [place] [facility] Oxygen saturation in 2020-06-23 21:33:48 97 /min [facility] Arterial blood by [place] [employer] kofi Pulse oximetry Branch Body temperature 2020-06-23 19:45:00 37 Siobhan [facility] [place] [facility] Body height 2020-06-23 19:45:00 170.2 cm [facility] [place] [facility] Body weight 2020-06-23 19:45:00 83.915 kg [facility] [place] [facility] BMI 2020-06-23 19:45:00 28.98 kg/m2 [facility] [place] [facility] Systolic blood 2020-06-23 21:33:48 151 mm[Hg] Univer sity [facility] [place] [facility] Diastolic blood 2020-06-23 21:33:48 98 mm[Hg] Unive rsity [facility] [place] [facility] Heart rate 2020-06-23 21:33:48 98 /min [facility] [place] [facility] Respiratory rate 2020-06-23 21:33:48 16 /min [facility] [place] [facility] Oxygen saturation in 2020-06-23 21:33:48 97 /min [facility] Arterial blood by [place] [employer]i Pulse oximetry Branch Body temperature 2020-06-23 19:45:00 37 Siobhan [facility] [place] [facility] Body height 2020-06-23 19:45:00 170.2 cm [facility] [place] [facility] Body weight 2020-06-23 19:45:00 83.915 kg [facility] [place] [facility] BMI 2020-06-23 19:45:00 28.98 kg/m2 [facility] [place] [facility] Systolic blood 2019-11-10 05:41:00 145 mm[Hg] Univer sity [facility] [place] [facility] Diastolic blood 2019-11-10 05:41:00 88 mm[Hg] Unive rsity [facility] [place] [facility] Heart rate 2019-11-10 05:41:00 68 /min [facility] [place] [facility] Respiratory rate 2019-11-10 05:41:00 18 /min [facility] [place] [facility] Oxygen saturation in 2019-11-10 05:41:00 100 /min [facility] Arterial blood by [place] [employer] Pulse oximetry Branch Body temperature 2019-11-10 04:15:00 36.61 Siobhan [facility] [place] [facility] Body height 2019-11-10 04:15:00 170.2 cm [facility] [place] [facility] Body weight 2019-11-10 04:15:00 86.183 kg [facility] [place] [facility] BMI 2019-11-10 04:15:00 29.76 kg/m2 [facility] [place] [facility] Systolic blood 2019-11-10 05:41:00 145 mm[Hg] Univer sity [facility] [place] [facility] Diastolic blood 2019-11-10 05:41:00 88 mm[Hg] Unive rsity [facility] [place] [facility] Heart rate 2019-11-10 05:41:00 68 /min [facility] [place] [facility] Respiratory rate 2019-11-10 05:41:00 18 /min [facility] [place] [facility] Oxygen saturation in 2019-11-10 05:41:00 100 /min [facility] Arterial blood by [place] [employer]ofi Pulse oximetry Branch Body temperature 2019-11-10 04:15:00 36.61 Siobhan [facility] [place] [facility] Body height 2019-11-10 04:15:00 170.2 cm [facility] [place] [facility] Body weight 2019-11-10 04:15:00 86.183 kg [facility] [place] [facility] BMI 2019-11-10 04:15:00 29.76 kg/m2 [facility] [place] [facility] Systolic blood 2019-09-29 16:30:00 117 mm[Hg] Univer sity [facility] [place] [facility] Diastolic blood 2019-09-29 16:30:00 78 mm[Hg] Unive rsity [facility] [place] [facility] Heart rate 2019-09-29 16:30:00 56 /min [facility] [place] [facility] Respiratory rate 2019-09-29 16:30:00 18 /min [facility] [place] [facility] Oxygen saturation in 2019-09-29 16:30:00 98 /min [facility] Arterial blood by [place] [facility] Pulse oximetry [facility] Body temperature 2019-09-29 14:39:00 36.56 Siobhan [facility] [place] [facility] Body height 2019-09-29 14:39:00 170.2 cm [facility] [place] [facility] Body weight 2019-09-29 14:39:00 86.183 kg [facility] [place] [facility] BMI 2019-09-29 14:39:00 29.76 kg/m2 [facility] [place] [facility] Systolic blood 2019-09-29 16:30:00 117 mm[Hg] Univer sity [facility] [place] [facility] Diastolic blood 2019-09-29 16:30:00 78 mm[Hg] Unive rsity [facility] [place] [facility] Heart rate 2019-09-29 16:30:00 56 /min [facility] [place] [facility] Respiratory rate 2019-09-29 16:30:00 18 /min [facility] [place] [facility] Oxygen saturation in 2019-09-29 16:30:00 98 /min [facility] Arterial blood by [facility] kofi Pulse oximetry Branch Body temperature 2019-09-29 14:39:00 36.56 Siobhan [facility] [place] [facility] Body height 2019-09-29 14:39:00 170.2 cm [facility] [place] [facility] Body weight 2019-09-29 14:39:00 86.183 kg [facility] [place] [facility] BMI 2019-09-29 14:39:00 29.76 kg/m2 [facility] [place] [facility] Systolic blood 2019-06-16 13:09:00 153 mm[Hg] Univer sity of [facility] [place] [facility] Diastolic blood 2019-06-16 13:09:00 82 mm[Hg] Unive rsity of [facility] [place] [facility] Respiratory rate 2019-06-16 13:09:00 18 /min [facility] [place] [facility] Body height 2019-06-16 13:09:00 170.2 cm [facility] [place] [facility] Body weight 2019-06-16 13:09:00 88.451 kg [facility] [place] [facility] BMI 2019-06-16 13:09:00 30.54 kg/m2 [facility] [place] [facility] Oxygen saturation in 2019-06-16 13:09:00 98 /min [facility] Arterial blood by [facility] kofi Pulse oximetry Branch Systolic blood 2019-06-16 13:09:00 153 mm[Hg] Univer sity of [facility] [place] [facility] Diastolic blood 2019-06-16 13:09:00 82 mm[Hg] Unive rsity of [facility] [place] [facility] Respiratory rate 2019-06-16 13:09:00 18 /min [facility] [place] [facility] Body height 2019-06-16 13:09:00 170.2 cm [facility] [place] [facility] Body weight 2019-06-16 13:09:00 88.451 kg [facility] [place] [facility] BMI 2019-06-16 13:09:00 30.54 kg/m2 [facility] [place] [facility] Oxygen saturation in 2019-06-16 13:09:00 98 /min [facility] Arterial blood by [facility] kofi Pulse oximetry Branch Systolic blood 2019-06-15 17:26:00 190 mm[Hg] Univer sity of [facility] [place] [facility] Diastolic blood 2019-06-15 17:26:00 122 mm[Hg] Unive rsity of [facility] [place] [facility] Heart rate 2019-06-15 17:26:00 97 /min [facility] [place] [facility] Body temperature 2019-06-15 17:26:00 36.56 Siobhan [facility] [place] [facility] Respiratory rate 2019-06-15 17:26:00 16 /min [facility] [place] [facility] Body weight 2019-06-15 17:26:00 90.266 kg [facility] BMI 2019-06-15 17:26:00 31.17 kg/m2 [facility] Oxygen saturation in 2019-06-15 17:26:00 97 /min [facility] Arterial blood by [facility] Pulse oximetry Branch Systolic blood 2019-06-15 17:26:00 190 mm[Hg] [facility] Diastolic blood 2019-06-15 17:26:00 122 mm[Hg] [facility] Heart rate 2019-06-15 17:26:00 97 /min [facility] Body temperature 2019-06-15 17:26:00 36.56 Siobhan [facility] Respiratory rate 2019-06-15 17:26:00 16 /min [facility] Body weight 2019-06-15 17:26:00 90.266 kg [facility] BMI 2019-06-15 17:26:00 31.17 kg/m2 [facility] Oxygen saturation in 2019-06-15 17:26:00 97 /min [facility] Arterial blood by [facility] kofi Pulse oximetry Branch Systolic blood 2019 16:22:00 116 mm[Hg] [facility] Diastolic blood 2019 16:22:00 [...] 96 /min [facility] Arterial blood by [employer] Pulse oximetry Branch Systolic blood 2019 16:22:00 116 mm[Hg] [facility] Diastolic blood 2019 16:22:00 78 mm[Hg] [facility] Heart rate 2019 16:22:00 84 /min [facility] Body temperature 2019 16:22:00 37 Siobhan [facility] Respiratory rate 2019 16:22:00 17 /min [facility] Body height 2019 16:22:00 170.2 cm [facility] Body weight 2019 16:22:00 90.357 kg [facility] BMI 2019 16:22:00 31.20 kg/m2 [facility] Oxygen saturation in 2019 16:22:00 96 /min [facility] Arterial blood by [employer] kofi Pulse oximetry Branch Heart rate 2019-01-25 00:00:00 79 /min [facility] Respiratory rate 2019-01-25 00:00:00 15 /min [facility] Systolic blood 2019-01-24 23:00:00 122 mm[Hg] [facility] Diastolic blood 2019-01-24 23:00:00 68 mm[Hg] [facility] Oxygen saturation in 2019-01-24 23:00:00 93 /min [facility] Arterial blood by [facility] Pulse oximetry Branch Body temperature 2019-01-24 20:15:00 36.94 Siobhan [facility] Body weight 2019-01-24 20:15:00 86.183 kg [facility] BMI 2019-01-24 20:15:00 28.89 kg/m2 [facility] Heart rate 2019-01-25 00:00:00 79 /min [facility] Respiratory rate 2019-01-25 00:00:00 15 /min [facility] Systolic blood 2019-01-24 23:00:00 122 mm[Hg] [facility] Diastolic blood 2019-01-24 23:00:00 68 mm[Hg] [facility] Oxygen saturation in 2019-01-24 23:00:00 93 /min [facility] Arterial blood by [facility] Pulse oximetry Branch Body temperature 2019-01-24 20:15:00 36.94 Siobhan [facility] Body weight 2019-01-24 20:15:00 86.183 kg [facility] BMI 2019-01-24 20:15:00 28.89 kg/m2 [facility] Systolic blood 2018-12-22 00:30:00 142 mm[Hg] [facility] Diastolic blood 2018-12-22 00:30:00 90 mm[Hg] [facility] Heart rate 2018-12-22 00:30:00 86 /min [facility] Respiratory rate 2018-12-22 00:30:00 18 /min [facility] Oxygen saturation in 2018-12-22 00:30:00 97 /min [facility]ial blood by [facility] Pulse oximetry Branch Body temperature 2018-12-21 21:07:00 37.11 Siobhan [facility] Body weight 2018-12-21 21:07:00 86.183 kg [facility] BMI 2018-12-21 21:07:00 28.89 kg/m2 [facility] Systolic blood 2018-12-22 00:30:00 142 mm[Hg] [facility] Diastolic blood 2018-12-22 00:30:00 90 mm[Hg] Unive rsity of pressure [facility] Heart rate 2018-12-22 00:30:00 86 /min [facility] Respiratory rate 2018-12-22 00:30:00 18 /min [facility] O[facility] in 2018-12-22 00:30:00 97 /min [facility] Arterial blood by [facility] Pulse oximetry [place] Body temperature 2018-12-21 21:07:00 37.11 Siobhan [facility] Body weight 2018-12-21 21:07:00 86.183 kg [facility] BMI 2018-12-21 21:07:00 28.89 kg/m2 [facility] Body weight 2020-02-01 12:04:00 85.548 kg [facility] BMI 2020-02-01 12:04:00 29.54 kg/m2 [facility] Systolic blood 2020-02-01 11:09:39 138 mm[Hg] [facility] pressure Diastolic blood 2020-02-01 11:09:39 78 mm[Hg] [facility] pressure Heart rate 2020-02-01 11:09:39 62 /min [facility] Body temperature 2020-02-01 11:09:39 36.5 Siobhan [facility] Respiratory rate 2020-02-01 11:09:39 18 /min [facility] Oxygen saturation in 2020-02-01 11:09:39 98 /min [facility] Arterial blood by Pulse oximetry Body height 2020-01-28 19:00:00 170.2 cm [facility] Procedures Procedure Date / Time Performing Clinician Source Performed EKG-12 LEAD 2021-09-30 02:44:04 Liliana Morris [facility] CREATINE KINASE 2021-09-30 01:37:00 [facility] MAGNESIUM 2021-09-30 01:37:00 [facility] TROPONIN I 2021-09-30 01:37:00 Belgica [facility] COMP. METABOLIC PANEL 2021-09-30 01:37:00 Liliana Morris [facility] ([id number]) Medical Branch ETHANOL 2021-09-30 01:37:00 Liliana Morris [facility] CBC WITH DIFF 2021-09-30 01:37:00 [facility] CONSENT/REFUSAL FOR 2021-09-30 01:16:32 [facility]igned, [facility] CT ANGIOGRAPHY CORONARIES 2021-09-13 18:33:48 Johan Porras [facility] WITHOUT CARDIAC CALCIUM [facility] SCORING TROPONIN I 2021-09-13 01:01:00 Jon Acevedo [facility] XR CHEST 1 VW 2021-09-12 13:33:24 Singer [facility] HB ECG ROUTINE & RHYTHM 2021-09-12 13:25:38 Johan Porras [facility] STRIP [facility] LIPASE 2021-09-12 13:24:00 Singer [facility] MAGNESIUM 2021-09-12 13:24:00 Singer [facility] TROPONIN I 2021-09-12 13:24:00 Singer [facility] COMP. METABOLIC PANEL 2021-09-12 13:24:00 Johan Porras [facility] ([id number]) [facility] CBC WITH DIFF 2021-09-12 13:24:00 Singer [facility] N-TERMINAL PRO-BNP 2021-09-12 13:24:00 Johan Porras [facility] CONSENT/REFUSAL FOR 2021-09-12 13:14:34 Doctor Unassigned, No [facility]REATMENT Name [facility] MAGNESIUM 2021-09-06 09:16:00 Phuong [facility] TROPONIN I 2021-09-06 09:16:00 Phuong [facility] BASIC METABOLIC PANEL 2021-09-06 09:16:00 Alvin Baca [facility] (NA, K, CL, CO2, GLUCOSE, Medica l Branch BUN, CREATININE, CA) TROPONIN I 2021-09-05 23:16:00 Alvin Baca [facility] TRANSTHORACIC ECHO (TTE) 2021-09-05 20:10:39 Alvin aBca [facility] COMPLETE W/ CONTRAST [facility] URINE DRUG (IMMUNOASSAY) 2021-09-05 18:40:00 Alvin Baca [facility] - COMPREHENSIVE DRUG Medical [facility] SCREEN DUPLEX VENOUS LEGS 2021-09-05 17:06:18 Lynn Trinidad [facility] BILATERAL - BY VASCULAR [facility] LAB XR CHEST 2 VW 2021-09-05 15:53:16 Lynn Trinidad [facility] URINALYSIS 2021-09-05 15:41:00 Lynn Trinidad [facility] LIPASE 2021-09-05 15:31:00 Lynn Trinidad [facility] TROPONIN I 2021-09-05 15:31:00 Lynn Trinidad [facility] COMP. METABOLIC PANEL 2021-09-05 15:31:[address] [facility] ([id number]) [facility] LIPID PANEL ([id number])(TOTAL 2021-09-05 15:31:00 Jaspreet Goff [facility] CHOLESTEROL, [facility] TRIGLYCERIDES, HDL) CBC WITH DIFF 2021-09-05 15:31:00 Lynn Trinidad [facility] GLYCOSYLATED HEMOGLOBIN 2021-09-05 15:31:00 Jaspreet Goff [facility] (A1C) [facility] D-DIMER 2021-09-05 15:31:00 Lynn Trinidad [facility] N-TERMINAL PRO-BNP 2021-09-05 15:31:00 Lynn Trinidad [facility] HB ECG ROUTINE & RHYTHM 2021-09-05 15:04:46 Lynn Trinidad [facility] STRIP [facility] CONSENT/REFUSAL FOR 2021-09-05 14:57:31 Doctor Unassigned, No [facility]AT[facility] Name [facility] TRANSTHORACIC ECHO (TTE) 2021-08-06 20:45:28 Jaspreet Goff.[facility]Jul[facility] COMPLETE W/ CONTRAST Medical [facility] CT CHEST PULMONARY 2021-08-06 14:34:[address] [facility] ANGIOGRAM Medical Branch MAGNESIUM 2021-08-06 09:38:00 [facility] 2021-08-06 09:38:00 Jaspreet Goff [facility] BASIC METABOLIC PANEL 2021-08-06 09:38:00 Jon Acevedo [facility] (NA, K, CL, CO2, GLUCOSE, Medica l Branch BUN, CREATININE, CA) LIPID PANEL ([id number])(TOTAL 2021-08-06 09:38:00 Jaspreet Goff [facility] CHOLESTEROL, [facility] TRIGLYCERIDES, HDL) CBC WITH DIFF 2021-08-06 09:38:00 Kristina [facility] D-DIMER 2021-08-06 00:53:00 Kristina [facility] TROPONIN I 2021-08-06 00:52:00 Kristina [facility] DUPLEX VENOUS LEGS 2021-08-05 20:15:00 Jon Acevedo [facility] BILATERAL - BY VASCULAR Medical Branch LAB PHOSPHORUS 2021-08-05 17:35:00 Kristina Jon [facility] MAGNESIUM 2021-08-05 17:35:00 Raya Sue [facility] TROPONIN I 2021-08-05 17:35:00 Raya Sue [facility] COMP. METABOLIC PANEL 2021-08-05 17:35:00 Raya Sue [facility] ([id number]) Medical Branch CBC WITH DIFF 2021-08-05 17:35:00 Raya Sue [facility] N-TERMINAL PRO-BNP 2021-08-05 17:35:00 Raya Sue [facility] Medical [place] COVID-19 (ID NOW RAPID 2021-08-05 17:35:[address] [facility] TESTING) Medical Branch LAB ONLY COVID 2021-08-05 17:35:00 Raya Sue [facility] INTERPRETATION [facility] XR CHEST 1 VW 2021-08-05 17:03:55 Raya Sue [facility] HB ECG ROUTINE & RHYTHM 2021-08-05 15:57:49 Raya Sue [facility] STRIP [facility] CONSENT/REFUSAL FOR 2021-08-05 15:06:08 Doctor Unassigned, No Un [facility] DIAGNOSIS AND TREATMENT Name Medical Branch TROPONIN I 2021-06-05 17:30:00 Jennfier Shea [facility] XR CHEST 1 VW 2021-06-05 15:27:49 Jennifer Shea [facility] LIPASE 2021-06-05 15:11:00 Jennifer Shea [facility] TROPONIN I 2021-06-05 15:11:00 Jennifer Shea [facility] COMP. METABOLIC PANEL 2021-06-05 15:11:00 Jennifer Shea [facility] ([id number]) [facility] CBC WITH DIFF 2021-06-05 15:11:00 Shabbir [facility] PROTHROMBIN TIME / INR 2021-06-05 15:11:00 Jennifer [facility] ACTIVATED PARTIAL 2021-06-05 15:11:00 Shabbir [facility] COVID-19 (ID NOW RAPID 2021-06-05 15:11:[address] [facility] TESTING) Medical Branch XR CHEST 1 VW 2021-05-27 16:27:27 Jennifer Shea [facility] LIPASE 2021-05-27 15:59:00 Jennifer Shea [facility] TROPONIN I 2021-05-27 15:59:00 Jennifer Shea [facility] COMP. METABOLIC PANEL 2021-05-27 15:59:00 Jennifer Shea [facility] ([id number]) [facility] CBC WITH DIFF 2021-05-27 15:59:00 Shabbir Jennifer [facility] PROTHROMBIN TIME / INR 2021-05-27 15:59:00 Jennifer [facility] ACTIVATED PARTIAL 2021-05-27 15:59:00 Shabbir [facility] URINALYSIS 2021-05-27 15:59:00 Shabbir [facility] COVID-19 (ID NOW RAPID 2021-05-27 15:59:[address] [facility] TESTING) Medical Branch URINE DRUG (IMMUNOASSAY) 2021-05-27 15:59:00 Jennifer Shea [facility] - COMPREHENSIVE DRUG Medical Bra [facility] SCREEN W/O REFLEX NOTICE OF PRIVACY 2021-05-27 15:50:40 Doctor Unassigned, No Univ [facility] PRACTICES Name Medical Branch CONSENT/REFUSAL FOR 2021-05-27 15:50:22 Doctor Unassigned, No Un [facility] DIAGNOSIS AND TREATMENT Name [facility] TROPONIN I 2021-05-05 12:18:00 Laura Pedraza [facility] CREATINE KINASE 2021-05-05 09:25:00 John paco [facility] TROPONIN I 2021-05-05 09:25:00 John [facility] PROCALCITONIN 2021-05-05 09:25:00 Laura Pedraza [facility] PHOSPHORUS 2021-05-05 02:50:00 John paco [facility] URIC ACID 2021-05-05 02:50:00 John paco [facility] MAGNESIUM 2021-05-05 02:50:00 John paco [facility] TROPONIN I 2021-05-05 02:50:00 Shelley Shahid [facility] THYROID STIMULATING 2021-05-05 02:50:00 Laura Pedraza [facility] HORMONE [facility] LIPID PANEL ([id number])(TOTAL 2021-05-05 02:50:00 Laura [facility]raza [facility] HDL) ETHANOL 2021-05-05 02:50:00 Laura Pedraza [facility] N-TERMINAL PRO-BNP 2021-05-05 02:50:00 Laura Pedraza [facility] XR CHEST 1 VW 2021-05-05 00:46:11 Ciera Seymour [facility] LIPASE 2021-05-05 00:37:00 Ciera Seymour [facility] TROPONIN I 2021-05-05 00:37:00 Ciera Seymour [facility] COMP. METABOLIC PANEL 2021-05-05 00:37:00 Ciera Seymuor [facility] ([id number]) Medical Branch CBC WITH DIFF 2021-05-05 00:37:00 Ciera Seymour [facility] GLYCOSYLATED HEMOGLOBIN 2021-05-05 00:37:00 Laura Pedraza [facility] (A1C) Medical Branch PROTHROMBIN TIME / INR 2021-05-05 00:37:00 Ciera Seymour [facility] D-DIMER 2021-05-05 00:37:00 Shelley Shahid [facility] ACTIVATED PARTIAL 2021-05-05 00:37:[address] [facility] COVID-19 (ID NOW RAPID 2021-05-05 00:37:00 Ciera Seymour [facility] TESTING) Medical Branch XR HAND 3+ VW RIGHT 2021-03-31 14:51:57 C[facility] CONSENT/REFUSAL FOR 2021-03-31 14:35:47 Doctor Unassigned, No [facility] DIAGNOSIS AND TREATMENT Name Medical Branch XR CHEST 1 VW 2021-02-18 13:49:48 Singer [facility] MAGNESIUM 2021-02-18 13:35:00 Singer [facility] TROPONIN I 2021-02-18 13:35:00 Singer [facility] COMP. METABOLIC PANEL 2021-02-18 13:35:00 Johan Porras [facility] ([id number]) [facility] LIPID PANEL ([id number])(TOTAL 2021-02-18 13:35:00 Johan Porras [facility] CHOLESTEROL, [facility] TRIGLYCERIDES, HDL) CBC WITH DIFF 2021-02-18 13:35:00 Singer [facility] D-DIMER 2021-02-18 13:35:00 Singer [facility] ADC,CLC OR LCC ONLY - 2021-02-18 13:35:00 Johan Porras [facility] INFLUENZA A & B DIRECT Medical [place] ANTIGEN N-TERMINAL PRO-BNP 2021-02-18 13:35:00 Johan Porras [facility] Medical Branch COVID-19 (ID NOW RAPID 2021-02-18 13:35:[address] [facility] TESTING) Medical Branch CONSENT/REFUSAL FOR 2021-02-18 13:07:47 Doctor [facility]assigned, No [facility] Name Medical Branch XR CHEST 1 VW 2021-01-24 14:27:39 Singer [facility] COMP. METABOLIC PANEL 2021-01-24 14:22:00 Singer [facility] ([id number]) Medical Branch CBC WITH DIFF 2021-01-24 14:22:00 Singer [facility] URINALYSIS 2021-01-24 14:22:00 Singer [facility] COVID-19 (ID NOW RAPID 2021-01-24 13:30:00 Singer [facility] TESTING) Medical Branch NOTICE OF PRIVACY 2021-01-24 13:21:27 Doctor Unassigned, No Univ [facility] PRACTICES Name Medical Branch CONSENT/REFUSAL FOR 2021-01-24 13:20:24 Doctor Unassigned, No [facility] [place] [facility] Name Medical Branch LIPASE 2020-12-07 13:44:00 Jennifer Shea [facility] COMP. METABOLIC PANEL 2020-12-07 13:44:00 Jennifer Shea [facility] ([id number]) Medical Branch CBC WITH DIFF 2020-12-07 13:44:00 Jennifer Shea [facility] URINALYSIS 2020-12-07 13:44:00 Jennifer Shea [facility] ADC, CLC OR LCC ONLY - 2020-12-07 13:44:[address] [facility] RSV Medical Branch COVID-19 (ID NOW RAPID 2020-12-07 13:44:[address] [facility] TESTING) Medical Branch URINE DRUG (IMMUNOASSAY) 2020-12-07 13:44:[address] [facility] DRUG Medical [facility] SCREEN W/O REFLEX CONSENT/REFUSAL FOR 2020-12-07 13:20:39 Doctor Unassigned, No Un [facility] DIAGNOSIS AND TREATMENT Name Medical Branch COMP. METABOLIC PANEL 2020-10-26 09:48:00 JohnLaura [facility] ([id number]) Medical Branch MAGNESIUM 2020-10-25 14:14:00 Phuong [facility] BASIC METABOLIC PANEL 2020-10-25 14:14:00 Alvin Baca [facility] (NA, K, CL, CO2, GLUCOSE, Medica l Branch BUN, CREATININE, CA) US ABDOMEN COMPLETE 2020-10-24 23:47:12 Alvin Baca [facility] TRANSTHORACIC ECHO (TTE) 2020-10-24 20:59:43 Alvin Baca [facility] COMPLETE W/ CONTRAST [facility] TROPONIN I 2020-10-24 16:13:00 Alvin Baca [facility] HB ECG ROUTINE & RHYTHM 2020-10-24 16:02:52 Alvin Baca [facility] STRIP [facility] CRITICAL CARE 2020-10-24 13:45:35 Jennifer Shea [facility] FREE T4 2020-10-24 12:50:00 Jennifer Shea [facility] COVID-19 (ID NOW RAPID 2020-10-24 12:43:[address] [facility] TESTING) Medical Branch LAB ONLY COVID 2020-10-24 12:43:00 Jennifer Shea [facility] INTERPRETATION [facility] URINE DRUG (IMMUNOASSAY) 2020-10-24 11:52:[address] [facility] DRUG Medical [facility] SCREEN URINALYSIS 2020-10-24 11:52:00 Singer Johan [facility] CT CHEST PULMONARY 2020-10-24 11:46:10 Johan Porras [facility] ANGIOGRAM Medical Branch POCT GLUCOSE (AUTOMATED) 2020-10-24 11:19:00 Johan Porras [facility] CREATINE KINASE 2020-10-24 11:18:00 Jennifer Shea [facility] LIPASE 2020-10-24 11:18:00 Jennifer Shae [facility] MAGNESIUM 2020-10-24 11:18:00 Alvin Baca [facility] TROPONIN I 2020-10-24 11:18:00 Singer [facility] THYROID STIMULATING 2020-10-24 11:18:00 Jennifer Shea [facility] COMP. METABOLIC PANEL 2020-10-24 11:18:00 [facility] [place] ([id number]) Medical Branch ETHANOL 2020-10-24 11:18:00 Shabbir [facility] CBC WITH DIFF 2020-10-24 11:18:00 Singer [facility] PROTHROMBIN TIME / INR 2020-10-24 11:18:00 Singer [facility] D-DIMER 2020-10-24 11:18:00 Singer [facility] ACTIVATED PARTIAL 2020-10-24 11:18:00 Singer [facility] N-TERMINAL PRO-BNP 2020-10-24 11:18:00 Johan Porras [facility] HB ECG ROUTINE & RHYTHM 2020-10-24 11:12:38 Singer [facility] EMERGENCY DEPARTMENT 2020-10-24 05:01:00 Doctor Unassigned, No U [facility] DOCUMENTS Name Medical Branch URINALYSIS 2020-07-28 18:29:00 Jennifer Shea [facility] ADC / LCC - DRUG SCREEN 2020-07-28 18:29:00 Jennifer Shea [facility] TRIAGE [facility] TROPONIN I 2020-07-28 18:23:00 Jennifer Shea [facility] FREE T4 2020-07-28 18:23:00 Shabbir [facility] THYROID STIMULATING 2020-07-28 18:23:00 Jennifer Shea [facility] HEPATIC FUNCTION PANEL 2020-07-28 18:23:00 [facility] ([id number]) (ALB,T.PRO,BIL Medical Branch T,BU/BC,ALT,AST,ALK PHOS) BASIC METABOLIC PANEL 2020-07-28 18:23:00 Jennifer Shea [facility] (NA, K, CL, CO2, GLUCOSE, Medica l Branch BUN, CREATININE, CA) CBC WITH DIFF 2020-07-28 18:23:00 Shabbir [facility] PROTHROMBIN TIME / INR 2020-07-28 18:23:00 [facility] ACTIVATED PARTIAL 2020-07-28 18:23:00 Shabbir [facility] THRMPLAS [place] [facility] N-TERMINAL PRO-BNP 2020-07-28 18:23:00 Jennifer Shea [facility] COVID-19 (ID NOW RAPID 2020-07-28 18:23:[address] [facility] TESTING) Medical Branch HB ECG ROUTINE & RHYTHM 2020-07-28 18:15:15 Jennifer Shea [facility] CONSENT/REFUSAL FOR 2020-07-28 18:07:43 Doctor [facility]assigned, [facility]REATMENT Name Medical [place] TROPONIN I 2020-06-30 15:28:00 Shabbir [facility] TROPONIN I 2020-06-30 13:36:00 Shabbir [facility] BASIC METABOLIC PANEL 2020-06-30 12:02:00 iCera Seymour [facility] (NA, K, CL, CO2, GLUCOSE, Medica l Branch BUN, CREATININE, CA) CBC WITH DIFF 2020-06-30 12:02:00 Ciera Seymour [facility] XR ANKLE <3 VW LEFT 2020-06-23 20:29:12 Shelley Shahid [facility] XR FOOT <3 VW LEFT 2020-06-23 20:29:12 Shelley Shahid [facility] NOTICE OF PRIVACY 2020-06-23 19:41:37 Doctor Unassigned, No [facility] PRACTICES Name Medical Branch CONSENT/REFUSAL FOR 2020-06-23 19:41:09 [facility] TREATMENT Name Medical Branch HEMOGLOBIN A1C 2020-01-29 11:10:00 [facility] LIPID PANEL 2020-01-29 11:10:00 [facility] HEPATITIS ACUTE PANEL 2020-01-29 11:10:00 [facility] GGT 2020-01-29 11:10:00 [facility] MAGNESIUM LEVEL 2020-01-29 11:10:00 [facility] HIV AG/AB COMBINATION 2020-01-29 11:10:00 [facility] XR CHEST 1 VW 2019-11-10 04:30:10 Clovis Thomas [facility] TROPONIN I 2019-11-10 04:20:00 Clovis Thomas [facility] COMP. METABOLIC PANEL 2019-11-10 04:20:00 Clovis Thomas [facility] ([id number]) [facility] CBC WITH DIFFERENTIAL 2019-11-10 04:20:00 Clovis Thomas [facility] PROTHROMBIN TIME / INR 2019-11-10 04:20:00 [facility] ACTIVATED PARTIAL 2019-11-10 04:20:00 Clovis Thomas [facility] E[facility]-12 LEAD 2019-11-10 04:19:36 Clovis Thomas [facility] COMP. METABOLIC PANEL 2019-09-29 15:23:00 Johan Porras [facility] ([id number]) [facility] CBC WITH DIFFERENTIAL 2019-09-29 15:23:00 Singer Johan [facility] URINALYSIS 2019-09-29 15:23:00 Singer [facility] CONSENT/REFUSAL FOR 2019-09-29 14:19:48 Doctor Unassigned, No [facility] Name Medical [facility] NOTICE OF PRIVACY 2019-09-29 14:19:33 Doctor Unassigned, No Univ [facility] PRACTICES Name [facility] EKG-12 LEAD 2019-06-16 13:22:02 Jennifer Shea [facility] LIPASE 2019-06-16 13:22:00 Shabbir [facility] TROPONIN I 2019-06-16 13:22:00 Shabbir [facility] COMP. METABOLIC PANEL 2019-06-16 13:22:00 Shabbir [facility] ([id number]) [facility] CBC WITH DIFFERENTIAL 2019-06-16 13:22:00 Shabbir [facility] PROTHROMBIN TIME / INR 2019-06-16 13:22:00 [facility] ACTIVATED PARTIAL 2019-06-16 13:22:00 Shabbir [facility] THRMPLAS [facility] XR CHEST 1 VW 2019-06-15 18:27:52 Zehra [facility] MAGNESIUM 2019-06-15 18:22:00 Zehra [facility] TROPONIN I 2019-06-15 18:22:00 Zehra [facility] COMP. METABOLIC PANEL 2019-06-15 18:22:00 Shelley Shahid [facility] ([id number]) [facility] CBC WITH DIFFERENTIAL 2019-06-15 18:22:00 Shelley Shahid [facility] EKG-12 LEAD 2019-06-15 18:10:41 Zehra [facility] NOTICE OF PRIVACY 2019-06-15 17:21:46 Doctor Unassigned, No [facility] PRACTICES Name [facility] CONSENT/REFUSAL FOR 2019-06-15 17:16:40 Doctor [facility]assigned, [facility] TREATMENT Name [facility] POCT GRP A STREP 2019 16:24:00 [facility] (MOLECULAR) [facility] POCT FLU A AND B 2019 16:23:00 [facility] (MOLECULAR) [facility] NO SHOW OR MISSED 2019 16:08:34 Doctor Unassigned, No [facility] APPOINTMENT POLICY Name [facility] ACKNOWLEDGEMENT LIPASE 2019-01-24 21:38:00 Jerry Martin [facility] TROPONIN I 2019-01-24 21:38:00 Jerry Martin [facility] COMP. METABOLIC PANEL 2019-01-24 21:38:00 Jerry Martin [facility] ([id number]) Medical Branch URINALYSIS 2019-01-24 21:38:00 Jerry Martin [facility] ADC / LCC - DRUG SCREEN 2019-01-24 21:38:00 Jerry Martin [facility] TRIAGE [facility] CBC WITH DIFFERENTIAL 2019-01-24 21:38:00 Jerry Martin [facility] EKG-12 LEAD 2019-01-24 21:01:42 Jerry Martin [facility] CONSENT/REFUSAL FOR 2019-01-24 19:55:39 Doctor Unassigned, No [facility] TREATMENT Name Medical Branch XR ABDOMEN ACUTE SERIES 2018-12-21 23:23:19 Jeremiah Demond [facility] LIPASE 2018-12-21 22:19:00 Jeremiah Demond [facility] MAGNESIUM 2018-12-21 22:19:00 Jeremiah [facility] COMP. METABOLIC PANEL 2018-12-21 22:19:00 Jeremiah Demond [facility] ([id number]) [facility] CBC WITH DIFFERENTIAL 2018-12-21 22:19:00 Jeremiah [facility] URINALYSIS 2018-12-21 22:19:00 Jeremiah Demond [facility] CONSENT/REFUSAL FOR 2018-12-21 20:57:44 Doctor Unassigned, No [facility] Name [facility] Branch Encounters Start End Encounter Admission Attending Care Care Encounter Source Date/Time Date/Time Type Type Clinicians Facility Department ID 2021-03-12 Emergency [facility] [id number] Univers 05:38:42 ity [facility] 2021-03-11 Emergency [facility] [id number] Univers 23:00:35 ity [facility] 2021-03-11 Emergency [facility] [id number] Univers 11:56:05 ity [facility] 2021-03-11 Emergency [facility] [id number] Univers 01:30:[address] [facility] 2021-03-10 Emergency [facility] [id number] Univers 07:20:[address] [facility] 2021-03-10 Emergency [facility] [id number] Univers 00:13:[address] [facility] 2021-03-09 Emergency [facility] [id number] Univers 23:32:[address] [facility] 2021-03-08 Emergency [facility] [id number] Univers 04:08:[address] [facility] 2021-03-08 Emergency [facility] [id number] Univers 00:53:[address] [facility] 2021-03-07 Emergency [facility] [id number] Univers 21:49:[address] [facility] 2021-09-29 2021-09-29 Emergency X BELGICA, [facility] ERT [id number] Univers 20:24:00 22:17:00 LILIANA it y of [facility] 2021-09-29 2021-09-29 [facility] [id number] Univers 20:24:00 22:17:00 Liliana PATTON [id number] ity of [facility] 4.2.7.2.686 [facility] [id number] [address] 2021-09-12 2021-09-13 Outpatient X DARYNNICOLE [facility] ERIC [id number] Univers 08:19:00 19:45:00 JON ity [facility] 2021-09-12 2021-09-13 Emergency Johan Porras [facility] 1.2.840. 114 [id number] Univers 08:19:00 19:45:00 DarynnicoleJon 350.1.13.10 ity of [place] 4.2.7.2.686 [facility] [id number] [address] 2021-09-05 2021-09-06 Outpatient X PHUONG [facility] ERIC [id number] Univers 10:03:00 15:55:00 ALVIN ity of [facility] 2021-09-05 2021-09-06 Emergency Lynn Trinidad [facility] 1.2.840 .114 [id number] Univers 10:03:00 15:55:00 Alvin Baca 350.1.13.10 itShae 4.2.7.2.686 [facility] [id number] [address] 2021-08-05 2021-08-07 Outpatient X PHUONG [facility] ERIC [id number] Univers 10:16:00 12:38:00 ALVIN farley [facility] 2021-08-05 2021-08-07 Emergency Raya Sue S [facility] 1.2.840.1 [id number] Univers 10:16:00 12:38:00 Jon Acevedo 350.1.13.10 ity of [place] 4.2.7.2.686 [facility] [id number] [address] 2021-07-17 2021-07-18 Emergency [facility] [id number] [place] [address] 00:00:00 00:00:[address] 2021-07-15 2021-07-17 Emergency ER [facility] Emergency [id number] [facility] 23:45:00 12:57:00 LEONIDAS 2021-07-16 2021-07-16 Outpatient [facility] [id number] 00:00:00 23:59:00 [facility] 2021-06-05 2021-06-05 [facility] [id number] Univers 09:04:00 13:12:00 JENNIFER farley [facility] 2021-06-05 2021-06-05 [facility] [id number] Univers 09:04:00 13:12:00 Jennifer PATTON 350.1.13.10 i [place] 4.2.7.2.686 [facility] [id number] [address] 2021-05-27 2021-05-27 Emergency [facility] [id number] Univers 09:58:00 12:18:00 JENNIFER farley [facility] 2021-05-27 2021-05-27 Emergency Shabbir [facility] 1.2.947.772 [id number] Univers 09:58:00 12:18:00 Jennifer PATTON 350.1.13.10 i ty of [facility] 4.2.7.2.686 [facility] [id number] [facility] [address] [place] 2021-05-27 2021-05-27 Orders Doctor RAS 1.2.840.114 [id number] Univers 00:00:00 00:00:00 Only Unassigned, KAY 350.1.13.10 ity of [facility] 4.2.7.2.686 Manfred [id number] [place] [address] Branch 2021-05-04 2021-05-05 Outpatient X KRISTINA [facility] [id number] Univers 18:35:00 12:45:00 JON ity [facility] 2021-05-04 2021-05-05 Emergency Shelley Shahid [facility] 1.2.840. 114 [id number] Univers 18:35:00 12:45:00 Laura Pedraza 350.1.13.10 ity of DarynnicoleJon MAYMARIA G 4.2.7.2.686 [facility] [id number] [address] 2021-03-31 2021-03-31 Emergency [facility] [id number] Univers 08:36:00 10:17:00 CIERA itregine [facility] 2021-03-31 2021-03-31 [facility] 1.2.840.114 [id number] Univers 08:36:00 10:17:00 Ciera PATTON 350.1.13.10 ity of [facility] 4.2.7.2.686 [facility] [id number] [address] 2021-02-18 2021-02-18 Emergency [facility] 1.2.519.182 [id number] Univers 08:21:00 11:20:00 Johan Patton 350.1.13.10 i ty of [place] 4.2.7.2.686 [facility] [id number] [address] 2021-01-24 2021-01-24 Emergency [facility] 1.2.773.944 [id number] Univers 08:32:00 10:23:00 Johan Sal 350.1.13.10 i ty of [place] 4.2.7.2.686 [facility] [id number] [facility] 084 Branch 2020-12-07 2020-12-07 Emergency Shea, [facility] 1.2.597.968 [id number] Univers 08:25:00 10:28:00 Jenniferjorge Patton 350.1.13.10 i ty of [place] 4.2.7.2.686 [facility] [id number] [facility] 084 Branch 2020-10-30 2020-10-30 Transition Nisha Aguilar 1.2.840.114 [id number] Univers 00:00:00 00:00:00 of Care Michelle Reid 350.1.13.10 ity of [place] 4.2.7.[address] [place] [address] [id number] [facility] 403 Branch 2020-10-24 2020-10-28 [facility] Johan Porras [facility] 1.2.840.1 [id number] Univers 06:11:00 10:50:00 Encounter Alvin Baca 350.1.13.10 ity of [place] 4.2.7.2.686 [facility] [id number] [place] 535090 Branch 2020-07-28 2020-07-28 Emergency Shea, [facility] 1.2.533.415 [id number] 13:17:00 20:00:00 Jennifer Patton 350.1.13.10 [place] 4.2.7.2.686 [place] [id number] [facility] 2020-07-28 2020-07-28 Emergency Shabbir, [facility] 1.2.739.375 [id number] Univers 13:17:00 20:00:00 Jennifer Patton 350.1.13.10 i ty of [place] 4.2.7.2.686 [facility] [id number] [place] 535094 Branch 2020-06-30 2020-06-30 Emergency Lion, [facility] 1.2.840.114 [id number] 05:26:00 10:11:00 Ciera Patton 350.1.13.10 [place] 4.2.7.2.686 [place] [id number] [facility] 2020-06-30 2020-06-30 [facility] 1.2.840.114 [id number] [facility] 05:26:00 10:11:00 Ciera Patton 350.1.13.10 ity of [place] 4.2.7.2.686 [facility] [id number] [address] 2020-06-23 2020-06-23 Emergency Zehra [facility] 1.2.840.114 [id number] 13:46:00 15:46:00 Margarita Patton 350.1.13.10 [place] 4.2.7.2.686 [place] [id number] [facility] 2020-06-23 2020-06-23 [facility] 1.2.840.114 [id number] [facility] 13:46:00 15:46:00 Margarita Patton 350.1.13.10 i ty of [place] 4.2.7.2.686 [facility] [id number] [address] 2020-01-28 2020-02-01 [facility] 1.2.840.1 [id number] Methodi 14:08:19 14:20:00 [facility] Nelly AlasJulia 25785.1.[address] 3.430.2.7 Hospit a .3.648138 l .8 2019-11-09 2019-11-10 [facility] 1.2.588.852 [id number] 23:06:12 01:26:00 Clovis Patton 350.1.13.10 [place] 4.2.7.2.686 [place] [id number] [facility] 2019-11-09 2019-11-10 [facility] 1.2.087.816 [id number] [facility] 23:06:12 01:26:00 Clovis Patton 350.1.13.10 i ty of [place] 4.2.7.2.686 [facility] [id number] [address] 2019-09-29 2019-09-29 Emergency [facility] 1.2.676.223 [id number] 09:39:50 11:47:00 Johan [place] 350.1.13.10 [place] 4.2.7.2.686 [place] [id number] [facility] 2019-09-29 2019-09-29 Emergency [facility] 1.2.532.422 [id number] Univers 09:39:50 11:47:00 Johan [place] 350.1.13.10 i ty of [place] 4.2.7.2.686 [facility] [id number] [address] 2019-06-16 2019-06-16 Emergency [facility] 1.2.812.266 [id number] 07:08:27 08:57:00 Joesph S [place] 350.1.13.10 [place] 4.2.7.2.686 [place] [id number] [facility] 2019-06-16 2019-06-16 Emergency [facility] 1.2.386.029 [id number] [facility] 07:08:27 08:57:00 Joesph S [place] 350.1.13.10 ity of [place] 4.2.7.2.[address] [place] [id number] 2019-06-16 2019-06-16 Emergency X [facility] E[facility] [id number] Univers 07:08:27 08:57:00 JOESPH ity of [facility] 2019-06-15 2019-06-15 Emergency Zehra [facility] 1.2.840.114 [id number] 11:30:00 13:30:00 Margarita [place] 350.1.13.10 [place] 4.2.7.2.686 [place] [id number] [facility] 2019-06-15 2019-06-15 Emergency Zehra, K [facility] 1.2.840.114 [id number] Univers 11:30:00 13:30:00 Margarita [place] 350.1.13.10 i ty of [place] 4.2.7.2.686 [facility] [id number] [address] 2019-06-15 2019-06-15 Orders Doctor RAS 1.2.840.114 [id number] 00:00:00 00:00:00 Only Unassigned, KAY 350.1.13.10 [facility] 4.2.7.2.686 [id number] 009 2019-06-15 2019-06-15 Orders Doctor RAS 1.2.840.114 [id number] Univers 00:00:00 00:00:00 Only Unassigned, KAY 350.1.13.10 ity of [facility] 4.2.7.2.686 Manfred as [id number] [facility] [address] [place] 2019-06-06 2019-06-06 Letter Clinic, [facility] UNIVERSIT 1.2.840.114 [id number] 00:00:00 00:00:00 (Out) Neurology [facility] 350.1.13.10 [facility] 4.2.7.2.686 [id number] [facility] 2019-06-06 2019-06-06 Letter Clinic, [facility]ERS[facility] 1.2.840.114 [id number] Univers 00:00:00 00:00:00 (Out) Neurology Y HEALTH 350.1.13.10 ity of [facility] 4.2.7.2.686 [place] [id number] [facility] 0[address] [place] 2019 2019 [place], [facility] 1.2.840.114 [id number] 10:16:26 10:55:54 Care [facility] 350.1.13.10 Surgical 4.2.7.2.686 Specialti [id number] [address] [place] 2019 2019 [place], July [facility] 1.2.840.114 [id number] [facility] 10:16:26 10:55:54 Care Unknown, Attending Health 350.1.13.10 ity of Surgical 4.2.7.2.686 Man[place] as Specialti [id number] Tn dical 370 [facility] 2019 2019 Orders Doctor MCGINNIS 1.2.840.114 [id number] 00:00:00 00:00:00 Only Unassigned, KAY 350.1.13.10 [facility] 4.2.7.2.686 [id number] 009 2019 2019 Orders Doctor RAS 1.2.840.114 [id number] Univers 00:00:00 00:00:00 Only Unassigned, KAY 350.1.13.10 ity of [facility] 4.2.7.2.686 Manfred as [id number] [address] 2019-05-15 2019-05-15 Emergency [facility] ERT [id number] [facility] 20:18:44 22:11:00 DEMOND farley [facility] 2019-01-24 2019-01-24 [facility] 1.2.467.407 [id number] 15:49:15 22:27:00 Jerry Patton 350.1.13.10 [place] 4.2.7.2.686 [place] [id number] [facility] 2019-01-24 2019-01-24 [facility] 1.2.972.697 [id number] [facility] 15:49:15 22:27:00 Jerry Patton 350.1.13.10 i ty of [place] 4.2.7.2.686 [facility] [id number] [address] 2019-01-24 2019-01-24 Orders Doctor MCGINNIS 1.2.840.114 [id number] 00:00:00 00:00:00 Only Unassigned, KAY 350.1.13.10 [facility] 4.2.7.2.[id number] [facility] 2019-01-24 2019-01-24 Orders Doctor MCGINNIS 1.2.840.114 [id number] Univers 00:00:00 00:00:00 Only Unassigned, KAY 350.1.13.10 ity of [facility] 4.2.7.2.686 Manfred as [id number] [address] 2018-12-21 2018-12-21 [facility] 1.2.857.053 [id number] 17:07:20 19:42:00 Demond Patton 350.1.13.10 [place] 4.2.7.2.686 [place] [id number] [facility] 2018-12-21 2018-12-21 Emergency Jeremiah, [facility] 1.2.774.521 [id number] [facility] 17:07:20 19:42:00 Demond Patton 350.1.13.10 i ty of [place] 4.2.7.2.686 [facility] [id number] [place] 535094 Branch 2018-12-21 2018-12-21 Orders Doctor RAS 1.2.840.114 [id number] 00:00:00 00:00:00 Only Unassigned, KAY 350.1.13.10 [place] [facility] 4.2.7.2.686 [id number] 009 2018-12-21 2018-12-21 Orders Doctor RAS 1.2.840.114 [id number] Univers 00:00:00 00:00:00 Only Unassigned, KAY 350.1.13.10 ity of [place] [facility] 4.2.7.2.686 [facility] [id number] [address] Results Test Description Test Time Test Comments Results Result Comments Source TROPONIN I 2021-09-30 02:08:36 Test Item Value Reference Range Interpretation Comme nts TROPONIN I (test code = <0.012 See_Comment [Au tomated message] The 2958294854) system which ge nerated this result tra [...] biotin. Lab Interpretation Normal (test code = 31535-9) [facility]2022-05-23 01:58:14 Test Item Value Reference Range Interpretation Comments ALCOHOL (test code = 81 mg/dL 7370583152) TAMIKO (test code = TAMIKO) <10 Phfvzsux85-683 Toxic>100 Depression of PSYCHIATRIC THERAPIST>400 Fatalities [facility]orted [facility] 01:57:54 Test Item Value Reference Range Interpretation Comments MAGNESIUM (test code = 2924445530) 1.7 mg/dL 1.7-2.4 Lab Interpretation (test code = Normal 51358-7) [facility] (34136)2021-09-30 01:57:34 Test Item Value Reference Range Interpretation Comments NA (test code = 141 mmol/L 135-145 9711469812) K (test code = 4.2 mmol/L 3.5-5.0 4533196379) CL (test code = 106 mmol/L 98-108 9190474445) CO2 TOTAL (test code = 22 mmol/L 23-31 L 1085332764) AGAP (test code = 2-16 8820890581) BUN (test code = 14 mg/dL 7-23 8269553768) GLUCOSE (test code = 117 mg/dL 70-110 H 5276926671) CREATININE (test code = 1.12 mg/dL 0.60-1.25 1632592259) TOTAL BILI (test code = 0.2 mg/dL 0.1-1.1 1153145269) CALCIUM (test code = 9.0 mg/dL 8.6-10.6 2677618070) T PROTEIN (test code = 7.4 g/dL 6.3-8.2 1433141010) ALBUMIN (test code = 4.5 g/dL 3.5-5.0 3761511319) ALK PHOS (test code = 65 U/L 34-122 2038754868) ALTv (test code = 17 U/L 5-50 1742-6) AST(SGOT) (test code = 21 U/L 13-40 6508447518) eGFR (test code = mL/min/1.73m2 8597927582) TAMIKO (test code = TAMIKO) Association of [...] tests). Lab Interpretation Abnormal (test code = 47615-1) [facility] [id number] 01:57:14 Test Item Value Reference Range Interpretation Comments CK (test code = 1765912944) 57 U/L 33-194 Lab Interpretation (test code = Normal 27646-0) [facility] WITH [id number] 01:46:12 Test Item Value Reference Range Interpretation Comments WBC (test code = See_Comment [Automated 9157-2) message] The sy stem which generated this result transmitted reference range : 4.20 - 10.70 10*3/?L. The reference range was not used to interpret this result as normal/abnormal . RBC (test code = See_Comment [Automated 532-0) message] The sy stem which generated this [...] RDW-SD (test code = 45.1 fL 38.5-51.6 72267-8) RDW-CV (test code = 13.4 % 12.1-15.4 788-0) PLT (test code = See_Comment [Automated 777-3) message] The sy stem which generated this result transmitted reference range : 150 - 328 10*3/ ?L. The reference r javier was not used to interpret this result as normal/abnormal . MPV (test code = 9.7 fL 9.8-13.0 L 50950-5) NRBC/100 WBC (test See_Comment [Automat ed code = 4490786029) message] The system which generated this result transmitted reference range : 0.0 - 10.0 /100 WBCs. The refer ence range was not u sed to interpret th is result as normal/abnormal . NRBC x10^3 (test code <0.01 See_Comment [Auto mated = 5546910476) message] The s ystem which generated this result transmitted reference range : 10*3/?L. The reference range was not used to interpret this result as normal/abnormal . GRAN MAT (NEUT) % 45.6 % (test code = 770-8) IMM GRAN % (test code 0.40 % = 4672127633) LYMPH % (test code = 39.4 % 736-9) MONO % (test code = 8.4 % 5905-5) EOS % (test code = 5.4 % 713-8) BASO % (test code = 0.8 % 706-2) GRAN MAT x10^3(ANC) 3.51 10*3/uL 1.99-6.95 (test code = 7757639288) IMM GRAN x10^3 (test 0.03 10*3/uL 0.00-0.06 code = 9791809182) LYMPH x10^3 (test code 3.04 10*3/uL 1.09-3.23 = 731-0) MONO x10^3 (test code 0.65 10*3/uL 0.36-1.02 = 742-7) EOS x10^3 (test code = 0.42 10*3/uL 0.06-0.53 711-2) BASO x10^3 (test code 0.06 10*3/uL 0.01-0.09 = 704-7) Lab Interpretation Abnormal (test code = 40042-3) [facility] [id number] 02:03:45 Test Item Value Reference Interpretation Comments Range TROPONIN I (test 0.003 ng/mL See_Comment [Automated code = 2660663293) message] The system which generated this result [...] biotin. Lab Interpretation Normal (test code = 98542-9) [facility] [id number] 14:14:18 Test Item Value Reference Interpretation Comments Range TROPONIN I (test 0.003 ng/mL See_Comment [Automated code = 6953183008) message] The system which generated this result [...] biotin. Lab Interpretation Normal (test code = 81563-9) [facility] [id number] 14:11:01 Test Item Value Reference Range Interpretation Comments NT-proBNP (test code 14 pg/mL See_Comment [Autom ated = 0430058950) message] The system which generated this result transmitted reference range : <=125. The reference range was not used to interpret this result as normal/abnormal . TAMIKO (test code = TAMIKO) Biotin has been reported to cause a negative bias, interpret results relative to patient's use of biotin. Lab Interpretation Normal (test code = 02928-8) [facility]22-[facility]-05 14:03:57 Test Item Value Reference Range Interpretation Comments MAGNESIUM (test code = 2429870810) 1.8 mg/dL 1.7-2.4 Lab Interpretation (test code = Normal 99983-8) [facility] (37909)2021-09-12 14:03:37 Test Item Value Reference Range Interpretation Comments NA (test code = 140 mmol/L 135-145 [id number]) K (test code = 4.6 mmol/L 3.5-5.0 [id number]) CL (test code = 105 mmol/L 98-108 0849754620) CO2 TOTAL (test code = 25 mmol/L 23-31 4463977085) AGAP (test code = 2-16 7353332387) BUN (test code = 11 mg/dL 7-23 8618958554) GLUCOSE (test code = 111 mg/dL 70-110 H [id number]) CREATININE (test code = 0.65 mg/dL 0.60-1.25 1691961183) TOTAL BILI (test code = 0.4 mg/dL 0.1-1.6 0207828342) CALCIUM (test code = 8.8 mg/dL 8.6-10.6 2350208190) T PROTEIN (test code = 7.7 g/dL 6.3-8.2 1700538107) ALBUMIN (test code = 4.6 g/dL 3.5-5.0 3808216931) ALK PHOS (test code = 73 U/L 34-122 6332351016) ALTv (test code = 35 U/L 5-50 1742-6) AST(SGOT) (test code = 30 U/L 13-40 3040008361) eGFR (test code = mL/min/1.73m2 6992343221) TAMIKO (test code = TAMIKO) Association of [...] tests). Lab Interpretation Abnormal (test code = 28730-0) [facility] 14:03:37 Test Item Value Reference Range Interpretation Comments LIPASE (test code = 7408425157) 110 U/L 0-220 Lab Interpretation (test code = Normal 79524-6) [facility]CB WITH [id number] 13:31:54 Test Item Value Reference Range Interpretation [...] RDW-SD (test code = 44.7 fL 38.5-51.6 52101-6) RDW-CV (test code = 13.3 % 12.1-15.4 788-0) PLT (test code = See_Comment [Automated 777-3) message] The sy stem which generated this result transmitted reference range : 150 - 328 10*3/ ?L. The reference r javier was not used to interpret this result as normal/abnormal . MPV (test code = 10.0 fL 9.8-13.0 08916-4) NRBC/100 WBC (test See_Comment [Automat ed code = 4191087101) message] The system which generated this result transmitted reference range : 0.0 - 10.0 /100 WBCs. The refer ence range was not u sed to interpret th is result as normal/abnormal . NRBC x10^3 (test code <0.01 See_Comment [Auto mated = 9571436245) message] The s ystem which generated this result transmitted reference range : 10*3/?L. The reference range was not used to interpret this result as normal/abnormal . GRAN MAT (NEUT) % 54.1 % (test code = 770-8) IMM GRAN % (test code 0.70 % = 8189082308) LYMPH % (test code = 26.6 % 736-9) MONO % (test code = 12.7 % 5905-5) EOS % (test code = 5.0 % 713-8) BASO % (test code = 0.9 % 706-2) GRAN MAT x10^3(ANC) 4.97 10*3/uL 1.99-6.95 (test code = 1982610326) IMM GRAN x10^3 (test 0.06 10*3/uL 0.00-0.06 code = 3838243354) LYMPH x10^3 (test code 2.44 10*3/uL 1.09-3.23 = 731-0) MONO x10^3 (test code 1.17 10*3/uL 0.36-1.02 H = 742-7) EOS x10^3 (test code = 0.46 10*3/uL 0.06-0.53 711-2) BASO x10^3 (test code 0.08 10*3/uL 0.01-0.09 = 704-7) Lab Interpretation Abnormal (test code = 98553-4) [facility]stKushalgibson [facility] hospitalalejandro [id number] 10:22:16 Test Item Value Reference Interpretation Comments Range TROPONIN I (test 0.003 ng/mL See_Comment [Automated code = 9543523807) message] The system which generated this result [...] biotin. Lab Interpretation Normal (test code = 91439-8) [facility]stMagnesium [id number] 10:12:18 Test Item Value Reference Range Interpretation Comments MAGNESIUM (test code = 0808787150) 1.7 mg/dL 1.7-2.4 Lab Interpretation (test code = Normal 14169-6) [facility] Metabolic Panel (NA, K, CL, CO2, GLUCOSE, BUN, CREATININE, CA)2021-09-06 10:11:58 Test Item Value Reference Range Interpretation Comments NA (test code = 136 mmol/L 135-145 1645789144) K (test code = 3.9 mmol/L 3.5-5.0 5748499972) CL (test code = 101 mmol/L 98-108 9185334271) CO2 TOTAL (test code 27 mmol/L 23-31 = 1985539636) AGAP (test code = 2-16 6651170568) BUN (test code = 14 mg/dL 7-23 7226557333) GLUCOSE (test code = 95 mg/dL 70-110 5200449943) CREATININE (test code 0.81 mg/dL 0.60-1.25 = 7007327168) CALCIUM (test code = 8.7 mg/dL 8.6-10.6 1784315404) eGFR (test code = mL/min/1.73m2 7919330608) TAMIKO (test code = TAMIKO) Association of [...] or urine or abnormalities in imaging tests). [facility]stGLYCOSYLATED HEMOGLOBIN (A1C)2021-09-05 23:56:19 Test Item Value Reference Range Interpretation Comments HGB A1C (test code = 5.6 % 4.0-5.7 4548-4) TAMIKO (test code = TAMIKO) Reference RangesNormal: <5.7%Prediabetes: 5.7 - 6.4%Diabetes: > 6.5% Lab Interpretation (test Normal code = 66378-6) [facility]stTroponin [id number] 23:52:47 Test Item Value Reference Interpretation Comments Range TROPONIN I (test 0.003 ng/mL See_Comment [Automated code = 5411360192) message] The system which generated this result [...] biotin. Lab Interpretation Normal (test code = 47793-2) [facility]stLIPID PANEL (74483)(TOTAL CHOLESTEROL, TRIGLYCERIDES, HDL)2021-09-05 23:08:35 Test Item Value Reference Range Interpretation Comments CHOL (test code = 148 mg/dL 120-200 6586706576) HDL (test code = 39 mg/dL >40 L 1373189529) HDLC RATIO (test code = See_Comment [Au tomated message] 7357988288) The system [employer] ([employer]) generated this result transmit luis reference range : <=5.0. The refe rence range was not u sed to interpret th is result as normal/abnormal . TRIG (test code = 150 mg/dL 30-170 0103203909) LDL CHOL (test code = 79 mg/dL See_Comment [Auto mated message] 78678-2) The system [employer] ([employer]) generated this result transmit luis reference range : <=160. The refe rence range was not u sed to interpret th is result as normal/abnormal . VLDL (test code = 30 mg/dL 5-60 5669582596) Lab Interpretation (test Abnormal code = 43498-4) [facility]stTransthoracic echo (TTE)2021-09-05 21:38:59 Test Item Value Reference Range Interpretation Comments LVIDD (test code = 4.60 cm 3308675297) IVS (test code = 1.48 cm 3715983650) Interventricular Septum 1.48 cm Diastolic Thickness by 2D (test code = 1377500) LVPWD (test code = 1.25 cm 8805122288) PW (test code = 1.25 cm 0.6-1.9 2272187275) EF(Teich) (test code = 59.40 % 8435250227) LVIDS (test code = 3.20 cm 5476181702) FS (test code = 31 % 9451138665) EF - 2D (test code = 59.40 % 88542796) LVOT diameter (test code 2.06 cm = 0834537471) ACS (test code = 1.98 cm 8285985221) Ao root annulus (test 2.9 cm code = 5990521498) Ao root diam (test code = 2.90 cm 7578377180) Aortic root (test code = 2.9 cm 6999731623) LA size (test code = 3.9 cm 6598947841) Radiology Study observation (narrative) (test code = 67645-1) TAMIKO (test code = TAMIKO) ?Left?Ventricle: Left [...] (99.8 kg) 2.17 sq meters 120/59 88 [facility]stEKG-12 Lead ROUTINE [id number] 17:41:17 Test Item Value Reference Range Interpretation Comments Lab Interpretation (test code = Abnormal 09727-1) [facility]stTROPONIN [id number] 16:19:01 Test Item Value Reference Interpretation Comments Range TROPONIN I (test 0.002 ng/mL See_Comment [Automated code = 2214728849) message] The system which generated this result [...] biotin. Lab Interpretation Normal (test code = 25447-4) [facility]stN-TERMINAL [id number] 16:15:43 Test Item Value Reference Range Interpretation Comments NT-proBNP (test code 17 pg/mL See_Comment [Autom ated = 1909152951) message] The system which generated this result transmitted reference range : <=125. The reference range was not used to interpret this result as normal/abnormal . TAMIKO (test code = TAMIKO) Biotin has been reported to cause a negative bias, interpret results relative to patient's use of biotin. Lab Interpretation Normal (test code = 76330-5) [facility]stCOMP. METABOLIC PANEL (29683)2021-09-05 16:07:19 Test Item Value Reference Range Interpretation Comments NA (test code = 141 mmol/L 135-145 8252016787) K (test code = 4.5 mmol/L 3.5-5.0 0626761213) CL (test code = 104 mmol/L 98-108 0572644882) CO2 TOTAL (test code = 23 mmol/L 23-31 5460168507) AGAP (test code = 2-16 2326736367) BUN (test code = 8 mg/dL 7-23 9552903706) GLUCOSE (test code = 127 mg/dL 70-110 H 8196704083) CREATININE (test code = 0.66 mg/dL 0.60-1.25 2703135903) TOTAL BILI (test code = 0.3 mg/dL 0.1-1.4 9324294500) CALCIUM (test code = 8.9 mg/dL 8.6-10.6 8356969840) T PROTEIN (test code = 7.7 g/dL 6.3-8.2 9159925247) ALBUMIN (test code = 4.6 g/dL 3.5-5.0 5961333885) ALK PHOS (test code = 66 U/L 34-122 6944106617) ALTv (test code = 89 U/L 5-50 H 1742-6) AST(SGOT) (test code = 72 U/L 13-40 H 9287780459) eGFR (test code = mL/min/1.73m2 3163349352) TAMIKO (test code = TAMIKO) Association of [...] tests). Lab Interpretation Abnormal (test code = 23043-4) [facility]ASE2022-04-28 16:06:59 Test Item Value Reference Range Interpretation Comments LIPASE (test code = 8074832810) 83 U/L 0-220 Lab Interpretation (test code = Normal 00326-9) [facility]stD-[id number] 16:05:17 Test Item Value Reference Interpretation Comments Range D-DIMER (test code = <0.27 See_Comment [Autom ated 3376665749) message] The system which generated this result [...] diagnosis. Lab Interpretation Normal (test code = 36848-3) [facility] WITH [id number] 15:45:55 Test Item Value Reference Range Interpretation Comments WBC (test code = See_Comment [Automated message] 6690-2) The system [employer] ([employer]) generated this result transmitted ref erence range: 4.20 - 1 0.70 10*3/?L. The re ference range was not u sed to interpret this result as normal/abnor mal. RBC (test code = See_Comment [Automated message] 789-8) The system [employer] ([employer]) generated this result transmitted ref erence range: [...] RDW-SD (test code 46.4 fL 38.5-51.6 = 92123-8) RDW-CV (test code 13.7 % 12.1-15.4 = 788-0) PLT (test code = See_Comment [Automated message] 777-3) The system [employer] ([employer]) generated this result transmitted ref erence range: 150 - 32 8 10*3/?L. The re ference range was not u sed to interpret this result as normal/abnor mal. MPV (test code = 10.3 fL 9.8-13.0 11232-0) NRBC/100 WBC (test See_Comment [Automat ed message] code = 4573145710) The [employer] which generated this result transmitted ref erence range: 0.0 - 10 .0 /100 WBCs. The refer ence range was not u sed to interpret this result as normal/abnor mal. NRBC x10^3 (test <0.01 See_Comment [Automated message] code = 0170034299) The syste m which generated this result transmitted ref erence range: 10*3/?L. The reference range was not used to interpr et this result as normal/abnormal . GRAN MAT (NEUT) % 49.4 % (test code = 441-8) IMM GRAN % (test 0.20 % code = 4173427987) LYMPH % (test code 34.1 % = 736-9) MONO % (test code 10.4 % = 5905-5) EOS % (test code = 4.7 % 713-8) BASO % (test code 1.2 % = 706-2) GRAN MAT 2.97 10*3/uL 1.99-6.95 x10^3(ANC) (test code = 7814215745) IMM GRAN x10^3 <0.03 0.00-0.06 (test code = 4033721767) LYMPH x10^3 (test 2.04 10*3/uL 1.09-3.23 code = 731-0) MONO x10^3 (test 0.62 10*3/uL 0.36-1.02 code = 742-7) EOS x10^3 (test 0.28 10*3/uL 0.06-0.53 code = 711-2) BASO x10^3 (test 0.07 10*3/uL 0.01-0.09 code = 704-7) [facility]ansthor[facility] echo (TTE)2021-08-06 21:59:45 Test Item Value Reference Range Interpretation Comments LVIDD (test code = 4.40 cm 5769380707) IVS (test code = 1.50 cm 6978437244) Interventricular Septum 1.50 cm Diastolic Thickness by 2D (test code = 2025444) LVPWD (test code = 1.46 cm 9839189161) PW (test code = 1.46 cm 0.6-1.8 7728511919) EF(Teich) (test code = 56.70 % 1543559720) LVIDS (test code = 3.10 cm 6439890932) FS (test code = 30 % 7971017088) EF - 2D (test code = 56.70 % 66673629) LVOT diameter (test code 2.19 cm = 9266140698) ACS (test code = 2.16 cm 4562976080) Ao root annulus (test 3.5 cm code = 4441384028) Ao root diam (test code = 3.50 cm 6803338648) Aortic root (test code = 3.5 cm 6601987087) LA size (test code = 3.4 cm 3974827985) E wave decelartion time 0.14 s (test code = 1472782145) MV Peak E Scott (test code 83.6 cm/s = 6726545325) MV Peak A Scott (test code 59.0 cm/s = 3882741966) E/A ratio (test code = ratio 6219008362) MR max PG (test code = 90.10 mm[Hg] 9283862362) MR max scott (test code = 474.50 cm/s 0635539916) Mr max scott (test code = 474.5 m/s 7645692495) MV Prop V (test code = 70.20 cm/s 8941055575) Tapse (test code = 2.44 cm 0098008185) TR Peak Scott (test code = 238.4 cm/s 2728290528) Triscuspid Valve mmHg Regurgitation Peak Gradient (test code = 0190317718) LVOT stroke volume (test 78.90 cm3 code = 5176651588) LVOT peak scott (test code 99.0 cm/s = 1765244430) LVOT mn grad (test code = mmHg 5645756486) AV LVOT peak gradient mmHg (test code = 0423830983) LVOT peak VTI (test code 21.0 cm = 8592780374) LV V1 mean (test code = 62.40 cm/s 2901023601) Aortic valve mean 78.6 cm/s velocity (test code = 3077284019) Ao peak scott (test code = 127.2 cm/s 1539073609) Ao VTI (test code = 23.2 cm 5948277345) AV area by cont VTI (test 3.4 cm2 code = 1447151121) AV area peak scott (test 2.9 cm2 code = 1147616247) Ao max PG (test code = 6.50 mm[Hg] 0079301582) AV peak gradient (test mmHg code = 9020230209) AV valve area (test code 3.40 cm2 = 7095568691) AV mean gradient (test mmHg code = 0512381409) Radiology Study observation (narrative) (test code = 90290-7) TAMIKO (test code = TAMIKO) ?Left?Ventricle: Left [...] (104.3 kg) 2.22 sq meters 150/92 71 [facility]stTROPONIN [id number] 15:14:07 Test Item Value Reference Interpretation Comments Range TROPONIN I (test 0.004 ng/mL See_Comment [Automated code = 6839396393) message] The system which generated this result [...] biotin. Lab Interpretation Normal (test code = 28394-6) [facility]stLIPID PANEL (15773)(TOTAL CHOLESTEROL, TRIGLYCERIDES, HDL)2021-08-06 14:47:02 Test Item Value Reference Range Interpretation Comments CHOL (test code = 211 mg/dL 120-200 H 8687971218) HDL (test code = 31 mg/dL >40 L 8062313036) HDLC RATIO (test code = See_Comment H [Au tomated message] 8098819940) The system [employer] ([employer]) generated this result transmit luis reference range : <=5.0. The refe rence range was not u sed to interpret th is result as normal/abnormal . TRIG (test code = 186 mg/dL 30-170 H 0940116783) LDL CHOL (test code = 143 mg/dL See_Comment [Auto mated message] 66430-2) The system [employer] ([employer]) generated this result transmit luis reference range : <=160. The refe rence range was not u sed to interpret th is result as normal/abnormal . VLDL (test code = 37 mg/dL 5-60 3713885383) Lab Interpretation (test Abnormal code = 29922-9) [facility] with Lneeovoypnzd1322-26-59 11:04:14 Test Item Value Reference Range Interpretation Comments WBC (test code = See_Comment [Automated message] 6690-2) The system [employer] ([employer]) generated this result transmitted ref erence range: 4.20 - 1 0.70 10*3/?L. The re ference range was not u sed to interpret this result as normal/abnor mal. RBC (test code = See_Comment [Automated message] 669-8) The system [employer] ([employer]) generated this result transmitted ref erence range: [...] RDW-SD (test code 46.8 fL 38.5-51.6 = 69570-6) RDW-CV (test code 13.7 % 12.1-15.4 = 788-0) PLT (test code = See_Comment [Automated message] 217-3) The system [employer] ([employer]) generated this result transmitted ref erence range: 150 - 32 8 10*3/?L. The re ference range was not u sed to interpret this result as normal/abnor mal. MPV (test code = 11.1 fL 9.8-13.0 94895-5) NRBC/100 WBC (test See_Comment [Automat ed message] code = 2385896552) The [employer] m which generated this result transmitted ref erence range: 0.0 - 10 .0 /100 WBCs. The refer ence range was not u sed to interpret this result as normal/abnor mal. NRBC x10^3 (test <0.01 See_Comment [Automated message] code = 4891855017) The syste m which generated this result transmitted ref erence range: 10*3/?L. The reference range was not used to interpr et this result as normal/abnormal . GRAN MAT (NEUT) % 51.5 % (test code = 770-8) IMM GRAN % (test 0.30 % code = 2434677842) LYMPH % (test code 29.7 % = 736-9) MONO % (test code 12.9 % = 5905-5) EOS % (test code = 4.6 % 713-8) BASO % (test code 1.0 % = 706-2) GRAN MAT 3.66 10*3/uL 1.99-6.95 x10^3(ANC) (test code = 4808246315) IMM GRAN x10^3 <0.03 0.00-0.06 (test code = 1126679788) LYMPH x10^3 (test 2.11 10*3/uL 1.09-3.23 code = 731-0) MONO x10^3 (test 0.92 10*3/uL 0.36-1.02 code = 742-7) EOS x10^3 (test 0.33 10*3/uL 0.06-0.53 code = 711-2) BASO x10^3 (test 0.07 10*3/uL 0.01-0.09 code = 704-7) [facility] Metabolic Panel (NA, K, CL, CO2, GLUCOSE, BUN, CREATININE, CA)2021-08-06 11:02:13 Test Item Value Reference Range Interpretation Comments NA (test code = 138 mmol/L 135-145 9576089267) K (test code = 3.7 mmol/L 3.5-5.0 0536899296) CL (test code = 102 mmol/L 98-108 5078187538) CO2 TOTAL (test code = 30 mmol/L 23-31 2980207131) AGAP (test code = 2-16 2025349784) BUN (test code = 12 mg/dL 7-23 3808635540) GLUCOSE (test code = 91 mg/dL 70-110 6624817597) CREATININE (test code = 0.74 mg/dL 0.60-1.25 5946658268) CALCIUM (test code = 8.4 mg/dL 8.6-10.6 L 7349822490) eGFR (test code = mL/min/1.73m2 3275778866) TAMIKO (test code = TAMIKO) Association of [...] tests). Lab Interpretation Abnormal (test code = 70309-1) [facility]stMagnesium [id number] 11:02:13 Test Item Value Reference Range Interpretation Comments MAGNESIUM (test code = 7334720896) 1.6 mg/dL 1.7-2.4 L Lab Interpretation (test code = Abnormal 65088-1) [facility]stPhosphorus [id number] 05:25:31 Test Item Value Reference Range Interpretation Comments PHOSPHORUS (test code = 6938059284) 3.6 mg/dL 2.5-5.0 Lab Interpretation (test code = Normal 98446-0) [facility]stTROPONIN [id number] 01:47:25 Test Item Value Reference Interpretation Comments Range TROPONIN I (test 0.004 ng/mL See_Comment [Automated code = 7303659115) message] The system which generated this result [...] biotin. Lab Interpretation Normal (test code = 05401-6) [facility]stD-[id number] 01:13:57 Test Item Value Reference Interpretation Comments Range D-DIMER (test code = See_Comment H [Autom ated 7045355815) message] The system which generated this result [...] diagnosis. Lab Interpretation Abnormal (test code = 50325-3) [facility]stTROPONIN [id number] 18:20:26 Test Item Value Reference Interpretation Comments Range TROPONIN I (test 0.003 ng/mL See_Comment [Automated code = 3342585617) message] The system which generated this result [...] biotin. Lab Interpretation Normal (test code = 83270-7) [facility]stN-TERMINAL [id number] 18:17:04 Test Item Value Reference Range Interpretation Comments NT-proBNP (test code 16 pg/mL See_Comment [Autom ated = 8987050910) message] The system which generated this result transmitted reference range : <=125. The reference range was not used to interpret this result as normal/abnormal . TAMIKO (test code = TAMIKO) Biotin has been reported to cause a negative bias, interpret results relative to patient's use of biotin. Lab Interpretation Normal (test code = 56683-3) [facility]stMAGNESIUM2022-03-28 18:09:02 Test Item Value Reference Range Interpretation Comments MAGNESIUM (test code = 0051939971) 1.9 mg/dL 1.7-2.4 Lab Interpretation (test code = Normal 37774-4) [facility]stCOMP. METABOLIC PANEL (32045)2021-08-05 18:08:42 Test Item Value Reference Range Interpretation Comments NA (test code = 149 mmol/L 135-145 H 3736776003) K (test code = 4.3 mmol/L 3.5-5.0 8941350428) CL (test code = 110 mmol/L 98-108 H 4014281024) CO2 TOTAL (test code = 27 mmol/L 23-31 7364729650) AGAP (test code = 2-16 2882059315) BUN (test code = 4 mg/dL 7-23 L 1018867936) GLUCOSE (test code = 121 mg/dL 70-110 H 9375769276) CREATININE (test code = 0.74 mg/dL 0.60-1.25 1288607911) TOTAL BILI (test code = 0.4 mg/dL 0.1-1.3 4576200674) CALCIUM (test code = 8.9 mg/dL 8.6-10.6 7617940614) T PROTEIN (test code = 7.5 g/dL 6.3-8.2 4137108203) ALBUMIN (test code = 4.4 g/dL 3.5-5.0 5721390266) ALK PHOS (test code = 68 U/L 34-122 4660005624) ALTv (test code = 20 U/L 5-50 1742-6) AST(SGOT) (test code = 31 U/L 13-40 2616173600) eGFR (test code = mL/min/1.73m2 0689907759) TAMIKO (test code = TAMIKO) Association of [...] tests). Lab Interpretation Abnormal (test code = 38583-2) [facility] WITH [id number] 17:49:58 Test Item Value Reference Range Interpretation Comments WBC (test code = See_Comment [Automated 0990-2) message] The sy stem which generated this result transmitted reference range : 4.20 - 10.70 10*3/?L. The reference range was not used to interpret this result as normal/abnormal . RBC (test code = See_Comment [Automated 419-8) message] The sy stem which generated this [...] RDW-SD (test code = 46.6 fL 38.5-51.6 05175-8) RDW-CV (test code = 13.7 % 12.1-15.4 788-0) PLT (test code = See_Comment H [Automated 367-3) message] The sy stem which generated this result transmitted reference range : 150 - 328 10*3/ ?L. The reference r javier was not used to interpret this result as normal/abnormal . MPV (test code = 10.0 fL 9.8-13.0 05215-2) NRBC/100 WBC (test See_Comment [Automat ed code = 0861299719) message] The system which generated this result transmitted reference range : 0.0 - 10.0 /100 WBCs. The refer ence range was not u sed to interpret th is result as normal/abnormal . NRBC x10^3 (test code <0.01 See_Comment [Auto mated = 2774553539) message] The s ystem which generated this result transmitted reference range : 10*3/?L. The reference range was not used to interpret this result as normal/abnormal . GRAN MAT (NEUT) % 45.8 % (test code = 770-8) IMM GRAN % (test code 0.40 % = 8462272484) LYMPH % (test code = 41.7 % 736-9) MONO % (test code = 6.6 % 5905-5) EOS % (test code = 4.8 % 713-8) BASO % (test code = 0.7 % 706-2) GRAN MAT x10^3(ANC) 3.68 10*3/uL 1.99-6.95 (test code = 7113246119) IMM GRAN x10^3 (test 0.03 10*3/uL 0.00-0.06 code = 8518167715) LYMPH x10^3 (test code 3.36 10*3/uL 1.09-3.23 H = 731-0) MONO x10^3 (test code 0.53 10*3/uL 0.36-1.02 = 742-7) EOS x10^3 (test code = 0.39 10*3/uL 0.06-0.53 711-2) BASO x10^3 (test code 0.06 10*3/uL 0.01-0.09 = 704-7) Lab Interpretation Abnormal (test code = 18966-4) [facility]stS[facility] (COVID-19) RNA [Presence] in Respiratory specimen by PHILIP with probe [id number] 22:29:39 Test Item Value Reference Range Interpretation Comments SARS-CoV-2 (COVID-19) RNA Not detected [Presence] in Respiratory specimen by PHILIP with probe detection (test code = 32696-1) Whether patient is employed in a Unknown healthcare setting (test code = 64380-3) Whether the patient has symptoms Unknown related to condition of interest (test code = 80523-8) Whether the patient was Unknown hospitalized for condition of interest (test code = 50878-2) Whether the patient was admitted Unknown to intensive care unit (ICU) for condition of interest (test code = 80182-7) Whether patient resides in a Unknown congregate care setting (test code = 26346-2) status (test code = Unknown 70393-7) Date and time of symptom onset Unknown (test code = 91871-6) [id number] 04:33:29 Test Item Value Reference Range Interpretation Comments ETHANOL (BEAKER) 170 mg/dL See_Comment H [Automated message] The (test code = 400) system [employer] generated this result tra nsmitted reference range : <=10. The reference r javier was not used to int erpret this result as normal/abnormal . 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)2021-07-16 01:11:14 Test Item Value Reference Range Interpretation Comments SARS-COV2/RT-PCR Negative Negative The SARS-Co V-2 target (test code = nucleic acids a re not 3392376) detected in thi s specimen. Negative result [...] revoked sooner. Fact Sheet for Healthcare Providers: https://www.[employer]/Documents/Xpert%20Xpress%20SARS%20CoV-2/Fact%20Sheets/302-3802%20SARS-COV -2%20HEALTHCARE%20PROVIDERS%20FACT%20SHEET.pdf Fact Sheet for Healthcare Patients: https://www.[employer]/Documents/Xpert %20Xpress%20SARS%20CoV-2/Fact%20Sheets/302-3801%34VNVS-JWI-7%20PATIENT%20FACT%20 SHEET.pdfCT, BRAIN, WITHOUT IV [id number] 01:07:00Unlisted Reason for Exam - Click Yes and Enter Reason Below->No [id number] LENTZ : 1985 Sex: [...] Verified Date/Time: 07/16/2021 01:07:39 RAPID DRUG SCREEN, [id number] 00:50:29 Test Item Value Reference Range Interpretation [...] 300 ng/mLCannabinoid 50 ng/mLBenzodiazepine 300 ng/mLTricyclic 1000 ng/eCHdkvazhwoey348 ng/mLPhencyclidine 25 ng/mLAmphetamine 1000 ng/mLOpiate 300 ng/mLMethadone 300 ng/mLThis assay provides an unconfirmed qualitative test result for the clinical management of patients in emergency situations. Chain of custody not maintained. Some uirx-fmt-efpbtne medications, as well as adulterants, may cause inaccurate results. Clinical correlation should be applied. A more comprehensive drug screen or confirmation of a detected drug may be performed uponrequest.RAD, CHEST, 1 VIEW, NON [id number] 00:40:00Reason for exam:->SUICIDALShould this be performed at the bedside?->Yes [facility] : 1985 Sex: MFINAL REPORT [...] I (test code = The system which [id number]) generated this result transmitted ref erence range: <=53. Th e reference range was not used to interpr et this result as normal/abnormal . The High-Sensitivity Troponin I assay is performed on Siemens LitherallAppArchitect IM Analyzer. Results of this assay should always be interpreted in conjunction with the patient's medical history, clinical presentation, and other findings.B-TYPE NATRIURETIC FACTOR (BNP)2021-07-16 00:39:09 Test Item Value Reference Range Interpretation Comments B-TYPE NATRIURETIC PEPTIDE (BEAKER) 15 pg/mL 0-100 (test code = 700) BASIC METABOLIC [id number] 00:38:59 Test Item Value Reference Range Interpretation [...] ESTIMATED GFR. CBC W/PLT COUNT & AUTO [id number] 00:19:15 Test Item Value Reference Range Interpretation [...] PERCENT (BEAKER) (test code = 2801) TROPONIN [id number] 18:15:07 Test Item Value Reference Interpretation Comments Range TROPONIN I (test 0.007 ng/mL See_Comment [Automated code = 7969697458) message] The system which generated this result [...] biotin. Lab Interpretation Normal (test code = 76837-2) [facility] MET[facility]OLIC PAN[facility] (35106)2021-06-05 15:49:57 Test Item Value Reference Range Interpretation Comments NA (test code = 132 mmol/L 135-145 L 4565151686) K (test code = 4.3 mmol/L 3.5-5.0 1569898049) CL (test code = 95 mmol/L 98-108 L 1116137533) CO2 TOTAL (test code = 16 mmol/L 23-31 L 0331986880) AGAP (test code = 2-16 H 8732753982) BUN (test code = 34 mg/dL 7-23 H 0537145553) GLUCOSE (test code = 80 mg/dL 70-110 9987753304) CREATININE (test code = 1.66 mg/dL 0.60-1.25 H 3837951084) TOTAL BILI (test code = 1.1 mg/dL 0.1-1.2 1565298661) CALCIUM (test code = 9.0 mg/dL 8.6-10.6 6986723761) T PROTEIN (test code = 8.1 g/dL 6.3-8.2 5228660498) ALBUMIN (test code = 5.0 g/dL 3.5-5.0 5847341762) ALK PHOS (test code = 92 U/L 34-122 1504022029) ALTv (test code = 50 U/L 5-50 1741-6) AST(SGOT) (test code = 68 U/L 13-40 H 8723509636) eGFR (test code = mL/min/1.73m2 4683743313) TAMIKO (test code = TAMIKO) Association of [...] tests). Lab Interpretation Abnormal (test code = 43730-8) [facility]OP[facility] [id number] 15:49:11 Test Item Value Reference Interpretation Comments Range TROPONIN I (test 0.010 ng/mL See_Comment [Automated code = 3212336000) message] The system which generated this result [...] biotin. Lab Interpretation Normal (test code = 94141-2) [facility]stLIP[facility], [id number] 15:37:50 Test Item Value Reference Range Interpretation Comments LIPASE (test code = 8520893260) 233 U/L 0-220 H Lab Interpretation (test code = Abnormal 05419-3) [facility]staPTT2022-01-26 15:31:46 Test Item Value Reference Range Interpretation Comments APTT Patient (test See_Comment [Automat ed code = 3173-2) message] The system which generated this result transmitted reference range : 23 - 38 Seconds . The reference range was not used to interpr et this result as normal/abnormal . TAMIKO (test code = TAMIKO) The [facility] patient population mean normal value for aPTT is 30 seconds. Lab Interpretation Normal (test code = 86200-7) [facility]stPROTHROMBIN TIME / [id number] 15:29:45 Test Item Value Reference Range Interpretation [...] tions. Lab Interpretation (test Normal code = 18961-9) [facility] WITH [id number] 15:28:44 Test Item Value Reference Range Interpretation Comments WBC (test code = See_Comment H [Automated 0624-2) message] The sy stem which generated this [...] RDW-SD (test code = 42.5 fL 38.5-51.6 34000-9) RDW-CV (test code = 13.0 % 12.1-15.4 788-0) PLT (test code = See_Comment [Automated 777-3) message] The sy stem which generated this result transmitted reference range : 150 - 328 10*3/ ?L. The reference r javier was not used to interpret this result as normal/abnormal . MPV (test code = 10.2 fL 9.8-13.0 28940-4) NRBC/100 WBC (test See_Comment [Automat ed code = 3644851720) message] The system which generated this result transmitted reference range : 0.0 - 10.0 /100 WBCs. The refer ence range was not u sed to interpret th is result as normal/abnormal . NRBC x10^3 (test code <0.01 See_Comment [Auto mated = 6080672368) message] The s [employer] which generated this result transmitted reference range : 10*3/?L. The reference range was not used to interpret this result as normal/abnormal . GRAN MAT (NEUT) % 77.1 % (test code = 770-8) IMM GRAN % (test code 0.90 % = 1459327901) LYMPH % (test code = 10.4 % 736-9) MONO % (test code = 10.5 % 5905-5) EOS % (test code = 0.6 % 713-8) BASO % (test code = 0.5 % 706-2) GRAN MAT x10^3(ANC) 9.01 10*3/uL 1.99-6.95 H (test code = 5739464950) IMM GRAN x10^3 (test 0.10 10*3/uL 0.00-0.06 H code = 9466855556) LYMPH x10^3 (test code 1.22 10*3/uL 1.09-3.23 = 731-0) MONO x10^3 (test code 1.23 10*3/uL 0.36-1.02 H = 742-7) EOS x10^3 (test code = 0.07 10*3/uL 0.06-0.53 711-2) BASO x10^3 (test code 0.06 10*3/uL 0.01-0.09 = 704-7) Lab Interpretation Abnormal (test code = 70778-0) [facility] [id number] 16:51:13 Test Item Value Reference Interpretation Comments Range TROPONIN I (test 0.005 ng/mL See_Comment [Automated code = 8859334228) message] The system which generated this result [...] biotin. Lab Interpretation Normal (test code = 80961-3) [facility]. METABOLIC PANEL (39070)2021-05-27 16:39:35 Test Item Value Reference Range Interpretation Comments NA (test code = 137 mmol/L 135-145 4048838561) K (test code = 3.7 mmol/L 3.5-5.0 3188502741) CL (test code = 101 mmol/L 98-108 9000884059) CO2 TOTAL (test code = 27 mmol/L 23-31 6048094813) AGAP (test code = 2-16 5756704918) BUN (test code = 9 mg/dL 7-23 0613624172) GLUCOSE (test code = 108 mg/dL 70-110 5497257603) CREATININE (test code = 0.75 mg/dL 0.60-1.25 5348296140) TOTAL BILI (test code = 0.3 mg/dL 0.1-1.1 1705784179) CALCIUM (test code = 8.2 mg/dL 8.6-10.6 L 8614107155) T PROTEIN (test code = 7.0 g/dL 6.3-8.2 8117954428) ALBUMIN (test code = 4.1 g/dL 3.5-5.0 9747769516) ALK PHOS (test code = 74 U/L 34-122 9161556999) ALTv (test code = 27 U/L 5-50 1742-6) AST(SGOT) (test code = 34 U/L 13-40 8122328472) eGFR (test code = mL/min/1.73m2 4361573914) TAMIKO (test code = TAMIKO) Association of [...] tests). Lab Interpretation Abnormal (test code = 40438-3) [facility]stLIP[facility], [id number] 16:39:14 Test Item Value Reference Range Interpretation Comments LIPASE (test code = 9526618694) 72 U/L 0-220 Lab Interpretation (test code = Normal 63914-6) [facility]staPTT2022-01-17 16:34:13 Test Item Value Reference Range Interpretation Comments APTT Patient (test See_Comment [Automat ed code = 3173-2) message] The system which generated this result transmitted reference range : 23 - 38 Seconds . The reference range was not used to interpr et this result as normal/abnormal . TAMIKO (test code = TAMIKO) The [facility] patient population mean normal value for aPTT is 30 seconds. Lab Interpretation Normal (test code = 18215-6) [facility]stPROTHROMBIN TIME / [id number] 16:32:13 Test Item Value Reference Range Interpretation Comments PROTIME PATIENT (test See_Comment [Auto mated message] code = 5964-2) The system [employer] generated this result transmitted ref erence range: 12.0 - 1 4.7 Seconds. The re ference range was not u sed to interpret this result as normal/abnor mal. INR (test code = 6301-6) Nor mal INR <1.1; Warfarin Therap eutic range 2.0 to 3. 0 or 2.5 to 3.5, dep ending upon the indica tions. Lab Interpretation (test Normal code = 12174-0) [facility] WITH [id number] 16:21:51 Test Item Value Reference Range Interpretation Comments WBC (test code = See_Comment [Automated message] 8390-2) The system [employer] ([employer]) generated this result transmitted ref erence range: 4.20 - 1 0.70 10*3/?L. The re ference range was not u sed to interpret this result as normal/abnor mal. RBC (test code = See_Comment [Automated message] 079-8) The system [employer] ([employer]) generated this result transmitted ref erence range: [...] RDW-SD (test code 42.2 fL 38.5-51.6 = 44138-4) RDW-CV (test code 12.7 % 12.1-15.4 = 788-0) PLT (test code = See_Comment [Automated message] 657-3) The system [employer] ([employer]) generated this result transmitted ref erence range: 150 - 32 8 10*3/?L. The re ference range was not u sed to interpret this result as normal/abnor mal. MPV (test code = 9.9 fL 9.8-13.0 42859-9) NRBC/100 WBC (test See_Comment [Automat ed message] code = 1255331337) The syste m which generated this result transmitted ref erence range: 0.0 - 10 .0 /100 WBCs. The refer ence range was not u sed to interpret this result as normal/abnor mal. NRBC x10^3 (test <0.01 See_Comment [Automated message] code = 2861020493) The syste m which generated this result transmitted ref erence range: 10*3/?L. The reference range was not used to interpr et this result as normal/abnormal . GRAN MAT (NEUT) % 53.0 % (test code = 770-8) IMM GRAN % (test 0.30 % code = 8785858582) LYMPH % (test code 29.5 % = 736-9) MONO % (test code 12.3 % = 5905-5) EOS % (test code = 4.1 % 713-8) BASO % (test code 0.8 % = 706-2) GRAN MAT 3.23 10*3/uL 1.99-6.95 x10^3(ANC) (test code = 2646192065) IMM GRAN x10^3 <0.03 0.00-0.06 (test code = 6467802190) LYMPH x10^3 (test 1.80 10*3/uL 1.09-3.23 code = 731-0) MONO x10^3 (test 0.75 10*3/uL 0.36-1.02 code = 742-7) EOS x10^3 (test 0.25 10*3/uL 0.06-0.53 code = 711-2) BASO x10^3 (test 0.05 10*3/uL 0.01-0.09 code = 704-7) [facility]stPROCALCITONIN2021-12-26 18:33:47 Test Item Value Reference Range Interpretation Comments Procalcitonin (test 0.02 ng/mL <0.07 code = 9294318730) TAMIKO (test code = TAMIKO) INTERPRETATION OF [...] lung abscess/empyema. For further information please refer to:[email or web address] Lab Interpretation Normal (test code = 32911-1) [facility] [id number] 13:20:01 Test Item Value Reference Interpretation Comments Range TROPONIN I (test 0.008 ng/mL See_Comment [Automated code = 2726463768) message] The system which generated this result [...] biotin. Lab Interpretation Normal (test code = 84558-7) [facility] [id number] 11:41:12 Test Item Value Reference Interpretation Comments Range TROPONIN I (test 0.007 ng/mL See_Comment [Automated code = 7508902521) message] The system which generated this result [...] biotin. Lab Interpretation Normal (test code = 58606-2) [facility]stCREATINE [id number] 11:31:13 Test Item Value Reference Range Interpretation Comments CK (test code = 1637836055) 93 U/L 33-194 Lab Interpretation (test code = Normal 48259-1) [facility]stTHYROID STIMULATING [id number] 10:15:06 Test Item Value Reference Range Interpretation Comments TSH (test code = See_Comment [Automated message] 5237631958) The system [employer] ([employer]) generated this result transmitted ref erence range: 0.45 - 4 .70 mIU/L. The refe rence range was not u sed to interpret this result as normal/abnor mal. Lab Interpretation (test Normal code = 67088-4) [facility]stN-TERMINAL [id number] 09:53:45 Test Item Value Reference Range Interpretation Comments NT-proBNP (test code 175 pg/mL See_Comment H [Autom ated = 8289924328) message] The system which generated this result transmitted reference range : <=125. The reference range was not used to interpret this result as normal/abnormal . TAMIKO (test code = TAMIKO) Biotin has been reported to cause a negative bias, interpret results relative to patient's use of biotin. Lab Interpretation Abnormal (test code = 85429-4) [facility]stETHANOL2021-12-26 09:52:20 Test Item Value Reference Range Interpretation Comments ALCOHOL (test code = <10 mg/dL 4747801990) TAMIKO (test code = TAMIKO) <10 Afldhjwd42-610 Toxic>100 Depression of PSYCHIATRIC THERAPIST>400 Fatalities Reported [facility]stMAGNESIUM2021-12-26 09:45:24 Test Item Value Reference Range Interpretation Comments MAGNESIUM (test code = 5847663597) 1.3 mg/dL 1.7-2.4 L Lab Interpretation (test code = Abnormal 50473-7) [facility]stLIPID PANEL (21790)(TOTAL CHOLESTEROL, TRIGLYCERIDES, HDL)2021-05-05 09:45:24 Test Item Value Reference Range Interpretation Comments CHOL (test code = 206 mg/dL 120-200 H 4907056202) HDL (test code = 29 mg/dL >40 L 1332240586) HDLC RATIO (test code = See_Comment H [Au tomated message] 7122529780) The system [employer] ([employer]) generated this result transmit luis reference range : <=5.0. The refe rence range was not u sed to interpret th is result as normal/abnormal . TRIG (test code = 255 mg/dL 30-170 H 9078697798) LDL CHOL (test code = 126 mg/dL See_Comment [Auto mated message] 51075-4) The system [employer] ([employer]) generated this result transmit luis reference range : <=160. The refe rence range was not u sed to interpret th is result as normal/abnormal . VLDL (test code = 51 mg/dL 5-60 9112140683) Lab Interpretation (test Abnormal code = 73569-2) [facility]stPHOSPHORUS2021-12-26 09:45:04 Test Item Value Reference Range Interpretation Comments PHOSPHORUS (test code = 8109384681) 3.6 mg/dL 2.5-5.0 Lab Interpretation (test code = Normal 31988-1) [facility]stURIC [id number] 09:44:43 Test Item Value Reference Range Interpretation Comments URIC ACID (test code = 9989939921) 7.8 mg/dL 3.6-8.0 Lab Interpretation (test code = Normal 70838-7) [facility]stGLYCOSYLATED HEMOGLOBIN (A1C)2021-05-05 09:09:32 Test Item Value Reference Range Interpretation Comments HGB A1C (test code = 5.7 % 4.0-5.7 4548-4) TAMIKO (test code = TAMIKO) Reference RangesNormal: <5.7%Prediabetes: 5.7 - 6.4%Diabetes: > 6.5% Lab Interpretation (test Normal code = 23804-1) [facility]stD-[id number] 04:48:27 Test Item Value Reference Interpretation Comments Range D-DIMER (test code = <0.27 See_Comment [Autom ated 0782468681) message] The system which generated this result [...] diagnosis. Lab Interpretation Normal (test code = 97171-6) [facility] [id number] 03:29:25 Test Item Value Reference Interpretation Comments Range TROPONIN I (test 0.018 ng/mL See_Comment [Automated code = 6877907454) message] The system which generated this result [...] biotin. Lab Interpretation Normal (test code = 10713-8) [facility] [id number] 01:09:37 Test Item Value Reference Interpretation Comments Range TROPONIN I (test 0.005 ng/mL See_Comment [Automated code = 5069374712) message] The system which generated this result [...] biotin. Lab Interpretation Normal (test code = 44670-4) [facility]. METABOLIC PANEL (25905)2021-05-05 00:57:59 Test Item Value Reference Range Interpretation Comments NA (test code = 135 mmol/L 135-145 4627895619) K (test code = 3.8 mmol/L 3.5-5.0 9830270130) CL (test code = 102 mmol/L 98-108 9090956232) CO2 TOTAL (test code 23 mmol/L 23-31 = 6514383211) AGAP (test code = 2-16 4354733352) BUN (test code = 12 mg/dL 7-23 0150762288) GLUCOSE (test code = 92 mg/dL 70-110 0500935332) CREATININE (test code 0.71 mg/dL 0.60-1.25 = 7989457769) TOTAL BILI (test code 0.5 mg/dL 0.1-1.1 = 5636523000) CALCIUM (test code = 9.0 mg/dL 8.6-10.6 4384250296) T PROTEIN (test code 7.4 g/dL 6.3-8.2 = 8991579411) ALBUMIN (test code = 4.4 g/dL 3.5-5.0 9589960093) ALK PHOS (test code = 67 U/L 34-122 9722189034) ALTv (test code = 28 U/L 5-50 1742-6) AST(SGOT) (test code 32 U/L 13-40 = 3786025203) eGFR (test code = mL/min/1.73m2 9207306043) TAMIKO (test code = TAMIKO) Association of [...] or urine or abnormalities in imaging tests). [facility]stLIPASE, [id number] 00:57:39 Test Item Value Reference Range Interpretation Comments LIPASE (test code = 2253011453) 65 U/L 0-220 Lab Interpretation (test code = Normal 82281-2) [facility]staPTT2021-12-26 00:54:59 Test Item Value Reference Range Interpretation Comments APTT Patient (test See_Comment [Automat ed code = 3173-2) message] The system which generated this result transmitted reference range : 23 - 38 Seconds . The reference range was not used to interpr et this result as normal/abnormal . TAMIKO (test code = TAMIKO) The [facility] patient population mean normal value for aPTT is 30 seconds. Lab Interpretation Normal (test code = 28781-0) [facility]stPROTHROMBIN TIME / [id number] 00:52:58 Test Item Value Reference Range Interpretation [...] tions. Lab Interpretation (test Normal code = 39933-7) [facility] WITH [id number] 00:46:38 Test Item Value Reference Range Interpretation Comments WBC (test code = See_Comment [Automated 1690-2) message] The sy stem which generated this result transmitted reference range : 4.20 - 10.70 10*3/?L. The reference range was not used to interpret this result as normal/abnormal . RBC (test code = See_Comment [Automated 919-8) message] The sy stem which generated this [...] RDW-SD (test code = 41.9 fL 38.5-51.6 52166-3) RDW-CV (test code = 12.7 % 12.1-15.4 788-0) PLT (test code = See_Comment H [Automated 077-3) message] The sy stem which generated this result transmitted reference range : 150 - 328 10*3/ ?L. The reference r javier was not used to interpret this result as normal/abnormal . MPV (test code = 9.9 fL 9.8-13.0 70020-8) NRBC/100 WBC (test See_Comment [Automat ed code = 5153906890) message] The system which generated this result transmitted reference range : 0.0 - 10.0 /100 WBCs. The refer ence range was not u sed to interpret th is result as normal/abnormal . NRBC x10^3 (test code <0.01 See_Comment [Auto mated = 1540398057) message] The s ystem which generated this result transmitted reference range : 10*3/?L. The reference range was not used to interpret this result as normal/abnormal . GRAN MAT (NEUT) % 62.3 % (test code = 770-8) IMM GRAN % (test code 0.30 % = 0514405425) LYMPH % (test code = 24.9 % 736-9) MONO % (test code = 9.9 % 5905-5) EOS % (test code = 1.6 % 713-8) BASO % (test code = 1.0 % 706-2) GRAN MAT x10^3(ANC) 5.68 10*3/uL 1.99-6.95 (test code = 9109986848) IMM GRAN x10^3 (test 0.03 10*3/uL 0.00-0.06 code = 4736184250) LYMPH x10^3 (test code 2.27 10*3/uL 1.09-3.23 = 731-0) MONO x10^3 (test code 0.90 10*3/uL 0.36-1.02 = 742-7) EOS x10^3 (test code = 0.15 10*3/uL 0.06-0.53 711-2) BASO x10^3 (test code 0.09 10*3/uL 0.01-0.09 = 704-7) Lab Interpretation Abnormal (test code = 32780-8) [facility]stKUSHALMUSC [facility] NORTHEASTALEJANDRO [id number] 14:27:27 Test Item Value Reference Interpretation Comments Range TROPONIN I (test 0.002 ng/mL See_Comment [Automated code = 2284582875) message] The system which generated this result [...] biotin. Lab Interpretation Normal (test code = 51971-2) [facility]stD-[id number] 14:25:35 Test Item Value Reference Interpretation Comments Range D-DIMER (test code = See_Comment [Autom ated 3910338729) message] The system which generated this result [...] diagnosis. Lab Interpretation Normal (test code = 20400-5) [facility]stN-TERMINAL [id number] 14:22:27 Test Item Value Reference Range Interpretation Comments NT-proBNP (test code 29 pg/mL See_Comment [Autom ated = 1852723108) message] The system which generated this result transmitted reference range : <=125. The reference range was not used to interpret this result as normal/abnormal . TAMIKO (test code = TAMIKO) Biotin has been reported to cause a negative bias, interpret results relative to patient's use of biotin. Lab Interpretation Normal (test code = 62002-9) [facility]stLIPID PANEL (25352)(TOTAL CHOLESTEROL, TRIGLYCERIDES, HDL)2021-02-18 14:14:32 Test Item Value Reference Range Interpretation Comments CHOL (test code = 209 mg/dL 120-200 H 6042749850) HDL (test code = 30 mg/dL >40 L 4208761401) HDLC RATIO (test code = See_Comment H [Au tomated message] 9266810360) The system [employer] ([employer]) generated this result transmit luis reference range : <=5.0. The refe rence range was not u sed to interpret th is result as normal/abnormal . TRIG (test code = 143 mg/dL 30-170 6289824189) LDL CHOL (test code = 150 mg/dL See_Comment [Auto mated message] 50637-7) The system [employer] ([employer]) generated this result transmit luis reference range : <=160. The refe rence range was not u sed to interpret th is result as normal/abnormal . VLDL (test code = 29 mg/dL 5-60 3680181161) Lab Interpretation (test Abnormal code = 75568-4) [facility]stCOMP. METABOLIC PANEL (17795)2021-02-18 14:14:11 Test Item Value Reference Range Interpretation Comments NA (test code = 139 mmol/L 135-145 2197036451) K (test code = 4.7 mmol/L 3.5-5.0 8118747999) CL (test code = 104 mmol/L 98-108 9074122685) CO2 TOTAL (test code 30 mmol/L 23-31 = 1649193861) AGAP (test code = 2-16 5862230041) BUN (test code = 12 mg/dL 7-23 1790011716) GLUCOSE (test code = 102 mg/dL 70-110 1191888929) CREATININE (test code 0.78 mg/dL 0.60-1.25 = 8323047447) TOTAL BILI (test code 0.3 mg/dL 0.1-1.1 = 2857646634) CALCIUM (test code = 9.5 mg/dL 8.6-10.6 6961924955) T PROTEIN (test code 7.4 g/dL 6.3-8.2 = 7289748018) ALBUMIN (test code = 4.3 g/dL 3.5-5.0 6837427574) ALK PHOS (test code = 61 U/L 34-122 4102114577) ALTv (test code = 27 U/L 5-50 1742-6) AST(SGOT) (test code 26 U/L 13-40 = 5210678870) eGFR (test code = mL/min/1.73m2 6324308434) TAMIKO (test code = TAMIKO) Association of [...] or urine or abnormalities in imaging tests). [facility]stMAGNESIUM2021-10-11 14:14:11 Test Item Value Reference Range Interpretation Comments MAGNESIUM (test code = 9144819507) 1.8 mg/dL 1.7-2.4 Lab Interpretation (test code = Normal 37015-8) [facility] WITH [id number] 13:51:29 Test Item Value Reference Range Interpretation Comments WBC (test code = See_Comment [Automated message] 6690-2) The system [employer]) generated this result transmitted ref erence range: 4.20 - 1 0.70 10*3/?L. The re ference range was not u sed to interpret this result as normal/abnor mal. RBC (test code = See_Comment [Automated message] 789-8) The system [employer] ([employer]) generated this result transmitted ref erence range: [...] RDW-SD (test code 43.3 fL 38.5-51.6 = 05974-8) RDW-CV (test code 13.0 % 12.1-15.4 = 788-0) PLT (test code = See_Comment [Automated message] 777-3) The system [employer] ([employer]) generated this result transmitted ref erence range: 150 - 32 8 10*3/?L. The re ference range was not u sed to interpret this result as normal/abnor mal. MPV (test code = 10.2 fL 9.8-13.0 70303-3) NRBC/100 WBC (test See_Comment [Automat ed message] code = 8395115630) The syste [employer] which generated this result transmitted ref erence range: 0.0 - 10 .0 /100 WBCs. The refer ence range was not u sed to interpret this result as normal/abnor mal. NRBC x10^3 (test <0.01 See_Comment [Automated message] code = 8067713161) The syste m which generated this result transmitted ref erence range: 10*3/?L. The reference range was not used to interpr et this result as normal/abnormal . GRAN MAT (NEUT) % 50.8 % (test code = 770-8) IMM GRAN % (test 0.70 % code = 7433172837) LYMPH % (test code 29.1 % = 736-9) MONO % (test code 12.4 % = 5905-5) EOS % (test code = 6.2 % 713-8) BASO % (test code 0.8 % = 706-2) GRAN MAT 3.71 10*3/uL 1.99-6.95 x10^3(ANC) (test code = 4140211799) IMM GRAN x10^3 0.05 10*3/uL 0.00-0.06 (test code = 8102876424) LYMPH x10^3 (test 2.13 10*3/uL 1.09-3.23 code = 731-0) MONO x10^3 (test 0.91 10*3/uL 0.36-1.02 code = 742-7) EOS x10^3 (test 0.45 10*3/uL 0.06-0.53 code = 711-2) BASO x10^3 (test 0.06 10*3/uL 0.01-0.09 code = 704-7) [facility]. METABOLIC PANEL (66230)2021-01-24 14:53:54 Test Item Value Reference Range Interpretation Comments NA (test code = 137 mmol/L 135-145 0821538813) K (test code = 4.5 mmol/L 3.5-5.0 1447765816) CL (test code = 100 mmol/L 98-108 2969691238) CO2 TOTAL (test code 29 mmol/L 23-31 = 7870632447) AGAP (test code = 2-16 2905433681) BUN (test code = 16 mg/dL 7-23 8273216598) GLUCOSE (test code = 94 mg/dL 70-110 2359618544) CREATININE (test code 0.86 mg/dL 0.60-1.25 = 7257895824) TOTAL BILI (test code 0.5 mg/dL 0.1-1.1 = 9205664759) CALCIUM (test code = 9.7 mg/dL 8.6-10.6 2478860222) T PROTEIN (test code 8.0 g/dL 6.3-8.2 = 0414735114) ALBUMIN (test code = 4.5 g/dL 3.5-5.0 6183567675) ALK PHOS (test code = 64 U/L 34-122 1507318143) ALTv (test code = 21 U/L 5-50 1742-6) AST(SGOT) (test code 37 U/L 13-40 = 2648079420) eGFR (test code = mL/min/1.73m2 0534921952) TAMIKO (test code = TAMIKO) Association of [...] or urine or abnormalities in imaging tests). [facility]. METABOLIC PANEL (23325)2021-01-24 14:53:54 Test Item Value Reference Range Interpretation Comments NA (test code = 137 mmol/L 135-145 0999634264) K (test code = 4.5 mmol/L 3.5-5.0 2136470686) CL (test code = 100 mmol/L 98-108 6194619657) CO2 TOTAL (test code 29 mmol/L 23-31 = 5927652653) AGAP (test code = 2-16 2416550096) BUN (test code = 16 mg/dL 7-23 9831474319) GLUCOSE (test code = 94 mg/dL 70-110 7420132498) CREATININE (test code 0.86 mg/dL 0.60-1.25 = 2985129590) TOTAL BILI (test code 0.5 mg/dL 0.1-1.1 = 6505588713) CALCIUM (test code = 9.7 mg/dL 8.6-10.6 6529289159) T PROTEIN (test code 8.0 g/dL 6.3-8.2 = 6392079339) ALBUMIN (test code = 4.5 g/dL 3.5-5.0 0993358990) ALK PHOS (test code = 64 U/L 34-122 6977953272) ALTv (test code = 21 U/L 5-50 1742-6) AST(SGOT) (test code 37 U/L 13-40 = 8558131235) eGFR (test code = mL/min/1.73m2 5979844859) TAMIKO (test code = TAMIKO) Association of [...] or urine or abnormalities in imaging tests). [facility] WITH [id number] 14:39:54 Test Item Value Reference Range Interpretation Comments WBC (test code = See_Comment [Automated 3790-2) message] The sy stem which generated this result transmitted reference range : 4.20 - 10.70 10*3/?L. The reference range was not used to interpret this result as normal/abnormal . RBC (test code = See_Comment [Automated 109-8) message] The sy stem which generated this [...] RDW-SD (test code = 44.4 fL 38.5-51.6 75403-2) RDW-CV (test code = 13.2 % 12.1-15.4 788-0) PLT (test code = See_Comment [Automated 777-3) message] The sy stem which generated this result transmitted reference range : 150 - 328 10*3/ ?L. The reference r javier was not used to interpret this result as normal/abnormal . MPV (test code = 10.7 fL 9.8-13.0 24366-0) NRBC/100 WBC (test See_Comment [Automat ed code = 1512602000) message] The system which generated this result transmitted reference range : 0.0 - 10.0 /100 WBCs. The refer ence range was not u sed to interpret th is result as normal/abnormal . NRBC x10^3 (test code <0.01 See_Comment [Auto mated = 8835967069) message] The s ystem which generated this result transmitted reference range : 10*3/?L. The reference range was not used to interpret this result as normal/abnormal . GRAN MAT (NEUT) % 54.9 % (test code = 770-8) IMM GRAN % (test code 0.50 % = 3428786711) LYMPH % (test code = 24.0 % 736-9) MONO % (test code = 16.5 % 5905-5) EOS % (test code = 3.5 % 713-8) BASO % (test code = 0.6 % 706-2) GRAN MAT x10^3(ANC) 3.58 10*3/uL 1.99-6.95 (test code = 3385798317) IMM GRAN x10^3 (test 0.03 10*3/uL 0.00-0.06 code = 4828684481) LYMPH x10^3 (test code 1.57 10*3/uL 1.09-3.23 = 731-0) MONO x10^3 (test code 1.08 10*3/uL 0.36-1.02 H = 742-7) EOS x10^3 (test code = 0.23 10*3/uL 0.06-0.53 711-2) BASO x10^3 (test code 0.04 10*3/uL 0.01-0.09 = 704-7) Lab Interpretation Abnormal (test code = 54051-1) [facility] WITH [id number] 14:39:54 Test Item Value Reference Range Interpretation Comments WBC (test code = See_Comment [Automated 2090-2) message] The sy stem which generated this [...] RDW-SD (test code = 44.4 fL 38.5-51.6 57339-2) RDW-CV (test code = 13.2 % 12.1-15.4 788-0) PLT (test code = See_Comment [Automated 777-3) message] The sy stem which generated this result transmitted reference range : 150 - 328 10*3/ ?L. The reference r javier was not used to interpret this result as normal/abnormal . MPV (test code = 10.7 fL 9.8-13.0 39024-5) NRBC/100 WBC (test See_Comment [Automat ed code = 9866790459) message] The system which generated this result transmitted reference range : 0.0 - 10.0 /100 WBCs. The refer ence range was not u sed to interpret th is result as normal/abnormal . NRBC x10^3 (test code <0.01 See_Comment [Auto mated = 1277083721) message] The s ystem which generated this result transmitted reference range : 10*3/?L. The reference range was not used to interpret this result as normal/abnormal . GRAN MAT (NEUT) % 54.9 % (test code = 770-8) IMM GRAN % (test code 0.50 % = 9908621219) LYMPH % (test code = 24.0 % 736-9) MONO % (test code = 16.5 % 5905-5) EOS % (test code = 3.5 % 713-8) BASO % (test code = 0.6 % 706-2) GRAN MAT x10^3(ANC) 3.58 10*3/uL 1.99-6.95 (test code = 2962403329) IMM GRAN x10^3 (test 0.03 10*3/uL 0.00-0.06 code = 0422031291) LYMPH x10^3 (test code 1.57 10*3/uL 1.09-3.23 = 731-0) MONO x10^3 (test code 1.08 10*3/uL 0.36-1.02 H = 742-7) EOS x10^3 (test code = 0.23 10*3/uL 0.06-0.53 711-2) BASO x10^3 (test code 0.04 10*3/uL 0.01-0.09 = 704-7) Lab Interpretation Abnormal (test code = 18185-1) [facility] - COMPREHENSIVE DRUG SCREEN W/O [id number] 14:38:57 Test Item Value Reference Range Interpretation Comments AMPHET (test code = Negative Negative 9595558079) CLAUDIA U (test code = Negative Negative 9350333757) BENZO U (test code = Negative Negative 8052202601) Cocaine Metabolite (test Negative Negative code = 0388961762) METHADONE (test code = Negative Negative 2705693889) OPIATES (test code = Negative Negative 8801861349) PCP (test code = Negative Negative 2286784925) THC (test code = Negative Negative 5202010551) TAMIKO (test code = TAMIKO) Urine Drug [...] testing). Lab Interpretation (test Normal code = 66951-5) [facility] (ID NOW RAPID TESTING)2020-12-07 14:31:11 Test Item Value Reference Range Interpretation Comments SARS-CoV-2 Rapid ID NOW Not Detected Not Detected (test code = 13170-8) TAMIKO (test code = TAMIKO) ID NOW COVID-19 Assay is an isothermal nucleic acid amplification test intended for the qualitative detection of nucleic acid from SARS-CoV-2 viral RNA in nasopharyngeal (AUTOMOTIVE MACHINIST APPRENTICE) specimens. It is used under Emergency Use [...] indicated. Lab Interpretation Normal (test code = 40169-3) [facility]AD OR C [id number] 14:23:50 Test Item Value Reference Range Interpretation Comments RSV Antigen (test code = 1854494834) Negative Negative Lab Interpretation (test code = Normal 86582-0) [facility]IS2021-07-30 14:10:55 Test Item Value Reference Range Interpretation Comments APPEARANCE (test code = Clear Clear 8871002978) COLOR (test code = Yellow Yellow 9084495076) PH (test code = 4.8-8.0 0351179116) SP GRAVITY (test code = 1.003-1.030 1795840056) GLU U QUAL (test code = Normal Normal 6446660799) BLOOD (test code = Negative Negative 3926733582) KETONES (test code = Negative Negative 4419765336) PROTEIN (test code = Negative Negative 2887-8) UROBILIN (test code = Normal Normal 5299936409) BILIRUBIN (test code = Negative Negative 5078247343) NITRITE (test code = Negative Negative 0739046240) LEUK GINO (test code = Negative Negative 7845948228) RBC/HPF (test code = See_Comment [Autom ated message] 3027785632) The system [employer] ([employer] generated this result transmitted ref erence range: 0 - 3 HP F. The reference range was not used to int erpret this result as normal/abnormal . WBC/HPF (test code = See_Comment [Autom ated message] 6052372501) The system [employer] ([employer]) generated this result transmitted ref erence range: 0 - 5 HP F. The reference range was not used to int erpret this result as normal/abnormal . BACTERIA (test code = Negative Negative 6741459375) Lab Interpretation (test Normal code = 33569-8) [facility]. METABOLIC PANEL (83852)2020-12-07 14:10:04 Test Item Value Reference Range Interpretation Comments NA (test code = 142 mmol/L 135-145 8370658126) K (test code = 4.3 mmol/L 3.5-5.0 3624076499) CL (test code = 106 mmol/L 98-108 2509503483) CO2 TOTAL (test code = 23 mmol/L 23-31 7730947523) AGAP (test code = 2-16 8479220965) BUN (test code = 15 mg/dL 7-23 9193911817) GLUCOSE (test code = 94 mg/dL 70-110 7240755633) CREATININE (test code = 0.70 mg/dL 0.60-1.25 0535496366) TOTAL BILI (test code = 0.5 mg/dL 0.1-1.2 1273481534) CALCIUM (test code = 9.7 mg/dL 8.6-10.6 5543355563) T PROTEIN (test code = 8.3 g/dL 6.3-8.2 H 7096496818) ALBUMIN (test code = 4.8 g/dL 3.5-5.0 2238734823) ALK PHOS (test code = 62 U/L 34-122 6495098146) ALTv (test code = 31 U/L 5-50 1742-6) AST(SGOT) (test code = 84 U/L 13-40 H 4959157860) eGFR (test code = mL/min/1.73m2 8352426286) TAMIKO (test code = TAMIKO) Association of [...] tests). Lab Interpretation Abnormal (test code = 36844-3) [facility]2021-07-30 14:09:48 Test Item Value Reference Range Interpretation Comments LIPASE (test code = 1402489773) 171 U/L 0-220 Lab Interpretation (test code = Normal 51684-3) [facility]CB WITH [id number] 13:59:24 Test Item Value Reference Range Interpretation Comments WBC (test code = See_Comment [Automated message] 6690-2) The system [employer] ([employer] generated this result transmitted ref erence range: 4.20 - 1 0.70 10*3/?L. The re ference range was not u sed to interpret this result as normal/abnor mal. RBC (test code = See_Comment [Automated message] 789-8) The system [employer] ([employer] generated this result transmitted ref erence range: [...] RDW-SD (test code 45.8 fL 38.5-51.6 = 70275-4) RDW-CV (test code 13.5 % 12.1-15.4 = 788-0) PLT (test code = See_Comment [Automated message] 777-3) The system [employer] generated this result transmitted ref erence range: 150 - 32 8 10*3/?L. The re ference range was not u sed to interpret this result as normal/abnor mal. MPV (test code = 11.0 fL 9.8-13.0 87947-2) NRBC/100 WBC (test See_Comment [Automat ed message] code = 2343501935) The syste m which generated this result transmitted ref erence range: 0.0 - 10 .0 /100 WBCs. The refer ence range was not u sed to interpret this result as normal/abnor mal. NRBC x10^3 (test <0.01 See_Comment [Automated message] code = 3528459059) The syste m which generated this result transmitted ref erence range: 10*3/?L. The reference range was not used to interpr et this result as normal/abnormal . GRAN MAT (NEUT) % 47.3 % (test code = 770-8) IMM GRAN % (test 0.20 % code = 2453666257) LYMPH % (test code 33.4 % = 736-9) MONO % (test code 13.0 % = 5905-5) EOS % (test code = 5.2 % 713-8) BASO % (test code 0.9 % = 706-2) GRAN MAT 3.08 10*3/uL 1.99-6.95 x10^3(ANC) (test code = 1587834133) IMM GRAN x10^3 <0.03 0.00-0.06 (test code = 2278737561) LYMPH x10^3 (test 2.18 10*3/uL 1.09-3.23 code = 731-0) MONO x10^3 (test 0.85 10*3/uL 0.36-1.02 code = 742-7) EOS x10^3 (test 0.34 10*3/uL 0.06-0.53 code = 711-2) BASO x10^3 (test 0.06 10*3/uL 0.01-0.09 code = 704-7) [facility]LAB ONLY COVID [id number] 15:23:58COVID DMT InterpretationInterpretation/Recommendations: Molecular NAAT Tests for [...] COVID-19 testing the patient has had at [facility], including molecular NAAT testing (more commonly known as PCR testing and Rapid ID Now testing) and antibody testing. It does not take into account any testing that a patient has had outside of the [facility] medical record. [facility] LABORATORY SERVICESCOVID Resul [id number] Rapid ID NOW (no units) ? ? Date ? Value ? 10/24/2020 ? Not Detected ? ? ? 07/28/2020 ? Not Detected ? [facility]Un[facility] COMP. METABOLIC PANEL (40622)2020-10-26 12:44:29 Test Item Value Reference Range Interpretation Comments NA (test code = 135 mmol/L 135-145 3880344807) K (test code = 4.2 mmol/L 3.5-5.0 2834166501) CL (test code = 101 mmol/L 98-108 5799812345) CO2 TOTAL (test code = 25 mmol/L 23-31 8839486569) AGAP (test code = 2-16 1822181933) BUN (test code = 7 mg/dL 7-23 2670386598) GLUCOSE (test code = 84 mg/dL 70-110 1698640563) CREATININE (test code = 0.69 mg/dL 0.60-1.25 7649086256) TOTAL BILI (test code = 0.8 mg/dL 0.1-1.1 9118290955) CALCIUM (test code = 9.0 mg/dL 8.6-10.6 2440274577) T PROTEIN (test code = 6.3 g/dL 6.3-8.2 0630621143) ALBUMIN (test code = 3.5 g/dL 3.5-5.0 6350094699) ALK PHOS (test code = 83 U/L 34-122 5142499430) ALTv (test code = 37 U/L 5-50 1742-6) AST(SGOT) (test code = 45 U/L 13-40 H 8658619939) eGFR (test code = mL/min/1.73m2 1967406377) TAMIKO (test code = TAMIKO) Association of [...] tests). Lab Interpretation Abnormal (test code = 31904-8) [facility]stMAGNESIUM2021-06-17 15:46:06 Test Item Value Reference Range Interpretation Comments MAGNESIUM (test code = 0930568016) 1.4 mg/dL 1.7-2.4 L Lab Interpretation (test code = Abnormal 38390-1) [facility]stBAS[facility] METABOLIC PANEL (NA, K, CL, CO2, GLUCOSE, BUN, CREATININE, CA)2020-10-25 15:45:46 Test Item Value Reference Range Interpretation Comments NA (test code = 135 mmol/L 135-145 9137199845) K (test code = 3.1 mmol/L 3.5-5.0 L 1408227875) CL (test code = 106 mmol/L 98-108 2130396973) CO2 TOTAL (test code = 24 mmol/L 23-31 0089873751) AGAP (test code = 2-16 5538790162) BUN (test code = 4 mg/dL 7-23 L 2277861393) GLUCOSE (test code = 99 mg/dL 70-110 9751038159) CREATININE (test code = 0.61 mg/dL 0.60-1.25 7897985480) CALCIUM (test code = 7.4 mg/dL 8.6-10.6 L 5063806331) eGFR (test code = mL/min/1.73m2 0613620912) TAMIKO (test code = TAMIKO) Association of [...] tests). Lab Interpretation Abnormal (test code = 97662-2) [facility]stUS ABDOMEN [id number] 23:59:57No evidence of acute sonographic abnormalities in [...] portalvenous waveform in the main portal vein. [facility], Radiant Results Inft User - 10/24/2020 7:01 [...] acute sonographic abnormalities in the abdomen.RL: [address] [facility] [id number] 17:24:18 Test Item Value Reference Range Interpretation Comments TROPONIN I (test 0.007 ng/mL See_Comment [Automated code = 0750908491) message] The system which generated this result [...] ? Lab Interpretation Normal (test code = 55034-5) [facility]stMAGNESIUM2021-06-16 14:02:13 Test Item Value Reference Range Interpretation Comments MAGNESIUM (test code = 4875206888) 1.9 mg/dL 1.7-2.4 Lab Interpretation (test code = Normal 18666-5) [facility] Hill[facility]stCritical [id number] 13:45:35Jennifer Shea MD ? ? 10/24/2020 ?8:45 [...] patient's response to treatment and examination of patientUnDallas Regional Medical CenterFR [id number] 13:37:55 Test Item Value Reference Range Interpretation Comments FREE T4 (test code = See_Comment [Autom ated message] 0766701705) The system [employer] generated this result transmitted ref erence range: 0.78 - 2 .20 ng/dL:. The ref erence range was not u sed to interpret this result as normal/abnor mal. Lab Interpretation (test Normal code = 23196-9) [facility]crestTHYROID STIMULATING [id number] 13:21:08 Test Item Value Reference Range Interpretation Comments TSH (test code = See_Comment [Automated message] 0770074981) The system [employer] generated this result transmitted ref erence range: 0.45 - 4 .70 mIU/L. The refe rence range was not u sed to interpret this result as normal/abnor mal. Lab Interpretation (test Normal code = 34189-3) [facility]COVID-[facility] (ID NOW RAPID TESTING)2020-10-24 13:06:12 Test Item Value Reference Range Interpretation Comments SARS-CoV-2 Rapid ID NOW Not Detected Not Detected (test code = 11947-4) TAMIKO (test code = TAMIKO) ID NOW COVID-19 Assay is an isothermal nucleic acid amplification test intended for the qualitative detection of nucleic acid from SARS-CoV-2 viral RNA in nasopharyngeal (AUTOMOTIVE MACHINIST APPRENTICE) specimens. It is used under Emergency Use [...] indicated. Lab Interpretation Normal (test code = 64755-8) [facility]stTROPONIN [id number] 13:00:47 Test Item Value Reference Range Interpretation Comments TROPONIN I (test 0.017 ng/mL See_Comment [Automated code = 8760435314) message] The system which generated this result [...] ? Lab Interpretation Normal (test code = 02092-5) [facility]stN-TERMINAL [id number] 12:54:30 Test Item Value Reference Range Interpretation Comments NT-proBNP (test code 22 pg/mL See_Comment [Autom ated = 7730080215) message] The system which generated this result transmitted reference range : <=125. The reference range was not used to interpret this result as normal/abnormal . TAMIKO (test code = TAMIKO) Biotin has been reported to cause a negative bias, interpret results relative to patient's use of biotin. Lab Interpretation Normal (test code = 32494-9) [facility]stETHANOL2021-06-16 12:51:47 Test Item Value Reference Range Interpretation Comments ALCOHOL (test code = 284 mg/dL 6749050478) TAMIKO (test code = TAMIKO) <10 Aezdrokq57-564 Toxic>100 Depression of PSYCHIATRIC THERAPIST>400 Fatalities Reported [facility]stCREATINE [id number] 12:51:07 Test Item Value Reference Range Interpretation Comments CK (test code = 7826710320) 744 U/L 33-194 H Lab Interpretation (test code = Abnormal 75075-4) [facility]stLIPASE2021-06-16 12:51:07 Test Item Value Reference Range Interpretation Comments LIPASE (test code = 3907289823) 92 U/L 0-220 Lab Interpretation (test code = Normal 22530-8) [facility]stCOMP. METABOLIC PANEL (08711)2020-10-24 12:49:29 Test Item Value Reference Range Interpretation Comments NA (test code = 144 mmol/L 135-145 5687937110) K (test code = 3.5 mmol/L 3.5-5.0 4399264319) CL (test code = 98 mmol/L 98-108 0519109270) CO2 TOTAL (test code = 29 mmol/L 23-31 4467180497) AGAP (test code = 2-16 H 7372938714) BUN (test code = 7 mg/dL 7-23 6084457501) GLUCOSE (test code = 148 mg/dL 70-110 H 9032731224) CREATININE (test code = 0.84 mg/dL 0.60-1.25 0495326234) TOTAL BILI (test code = 0.4 mg/dL 0.1-1.5 5813985768) CALCIUM (test code = 9.1 mg/dL 8.6-10.6 0509765989) T PROTEIN (test code = 7.6 g/dL 6.3-8.2 2886941219) ALBUMIN (test code = 4.5 g/dL 3.5-5.0 6456813166) ALK PHOS (test code = 89 U/L 34-122 9081848809) ALTv (test code = 49 U/L 5-50 1742-6) AST(SGOT) (test code = 75 U/L 13-40 H 0431564637) eGFR (test code = mL/min/1.73m2 0172406054) TAMIKO (test code = TAMIKO) Association of [...] tests). Lab Interpretation Abnormal (test code = 10476-7) [facility]stCT CHEST PULMONARY [id number] 12:44:11 No pulmonary embolism to the level [...] reviewed this study and agree with theabove report.[facility]stURINE DRUG (IMMUNOASSAY) - COMPREHENSIVE DRUG [id number] 12:36:45 Test Item Value Reference Range Interpretation Comments AMPHET (test code = Negative Negative 6094127174) CLAUDIA U (test code = Negative Negative 0287786953) BENZO U (test code = Presumptive Positive Negative A 1522522940) Cocaine Metabolite (test Negative Negative code = 8402593566) METHADONE (test code = Negative Negative 0506571780) OPIATES (test code = Negative Negative 4372047912) PCP (test code = Negative Negative 7655107728) THC (test code = Negative Negative 7301160146) TAMIKO (test code = TAMIKO) Urine Drug [...] testing). Lab Interpretation (test Abnormal code = 24957-3) [facility]stURINALYSIS2021-06-16 12:18:19 Test Item Value Reference Range Interpretation Comments APPEARANCE (test code = Clear Clear 9513588662) COLOR (test code = Yellow Yellow 9451044677) PH (test code = 4.8-8.0 9814129960) SP GRAVITY (test code = 1.003-1.030 H 9587731541) GLU U QUAL (test code = Normal Normal 0005101335) BLOOD (test code = 1+ Negative A 4126501613) KETONES (test code = Negative Negative 0969558964) PROTEIN (test code = 100 mg/dL Negative A 2887-8) UROBILIN (test code = Normal Normal 7234892855) BILIRUBIN (test code = Negative Negative 3404468236) NITRITE (test code = Negative Negative 4068471000) LEUK GINO (test code = Negative Negative 2821503420) RBC/HPF (test code = See_Comment [Autom ated message] 2039625674) The system [employer] generated this result transmit luis reference range : 0 - 3 HPF. The refe rence range was not u sed to interpret th is result as normal/abnormal . WBC/HPF (test code = See_Comment [Autom ated message] 2946136789) The system [employer] generated this result transmit luis reference range : 0 - 5 HPF. The refe rence range was not u sed to interpret th is result as normal/abnormal . BACTERIA (test code = Few Negative A 2900692752) MUCOUS (test code = Slight Negative LPF A 2232028857) SQ EPITH (test code = <1 HPF 7172502951) HYAL CAST (test code = See_Comment H [Aut omated message] 7226958424) The system [employer] generated this result transmit luis reference range : <=2 LPF. The refere nce range was not u sed to interpret th is result as normal/abnormal . GRAN CASTS (test code = See_Comment H [Au tomated message] 8805864051) The system [employer] generated this result transmit luis reference range : <=1 LPF. The refere nce range was not u sed to interpret th is result as normal/abnormal . Lab Interpretation (test Abnormal code = 71374-6) [facility]stD-[id number] 12:16:48 Test Item Value Reference Interpretation Comments Range D-DIMER (test code = See_Comment H [Autom ated 6395114942) message] The system which generated this result [...] diagnosis. Lab Interpretation Abnormal (test code = 00939-1) [facility]stACTIVATED PARTIAL THRMPLAS [id number] 12:10:05 Test Item Value Reference Range Interpretation Comments APTT Patient (test See_Comment [Automat ed code = 3173-2) message] The system which generated this result transmitted reference range : 23 - 38 Seconds . The reference range was not used to interpr et this result as normal/abnormal . TAMIKO (test code = TAMIKO) The [facility] patient population mean normal value for aPTT is 30 seconds. Lab Interpretation Normal (test code = 85935-4) [facility]stPROTHROMBIN TIME / [id number] 12:08:09 Test Item Value Reference Range Interpretation [...] tions. Lab Interpretation (test Normal code = 94079-7) [facility]CB WITH [id number] 11:46:38 Test Item Value Reference Range Interpretation [...] RDW-SD (test code = 43.2 fL 38.5-51.6 63131-5) RDW-CV (test code = 13.8 % 12.1-15.4 788-0) PLT (test code = See_Comment [Automated 777-3) message] The sy stem which generated this result transmitted reference range : 150 - 328 10*3/ ?L. The reference r javier was not used to interpret this result as normal/abnormal . MPV (test code = 9.1 fL 9.8-13.0 L 91162-0) NRBC/100 WBC (test See_Comment [Automat ed code = 3046808489) message] The system which generated this result transmitted reference range : 0.0 - 10.0 /100 WBCs. The refer ence range was not u sed to interpret th is result as normal/abnormal . NRBC x10^3 (test code <0.01 See_Comment [Auto mated = 3118357112) message] The s ystem which generated this result transmitted reference range : 10*3/?L. The reference range was not used to interpret this result as normal/abnormal . GRAN MAT (NEUT) % 58.2 % (test code = 770-8) IMM GRAN % (test code 0.40 % = 1944267405) LYMPH % (test code = 29.0 % 736-9) MONO % (test code = 10.1 % 5905-5) EOS % (test code = 1.2 % 713-8) BASO % (test code = 1.1 % 706-2) GRAN MAT x10^3(ANC) 4.82 10*3/uL 1.99-6.95 (test code = 1422576367) IMM GRAN x10^3 (test 0.03 10*3/uL 0.00-0.06 code = 2290497239) LYMPH x10^3 (test code 2.40 10*3/uL 1.09-3.23 = 731-0) MONO x10^3 (test code 0.84 10*3/uL 0.36-1.02 = 742-7) EOS x10^3 (test code = 0.10 10*3/uL 0.06-0.53 711-2) BASO x10^3 (test code 0.09 10*3/uL 0.01-0.09 = 704-7) Lab Interpretation Abnormal (test code = 01798-2) [facility]PO[facility] GLUCOSE (AUTOMATED)2020-10-24 11:21:11 Test Item Value Reference Range Interpretation Comments POCT GLU (test code = 9848086399) 147 mg/dL 70-110 H Lab Interpretation (test code = Abnormal 95626-8) [facility]stTHYROID STIMULATING [id number] 19:43:06 Test Item Value Reference Range Interpretation Comments TSH (test code = See_Comment [Automated message] 1396745647) The system [employer] h generated this result transmitted ref erence range: 0.45 - 4 .70 mIU/L. The refe rence range was not u sed to interpret this result as normal/abnor mal. Lab Interpretation (test Normal code = 01006-1) [facility]staPTT2021-03-20 19:41:21 Test Item Value Reference Range Interpretation Comments APTT Patient (test See_Comment [Automat ed code = 3173-2) message] The system which generated this result transmitted reference range : 23 - 38 Seconds . The reference range was not used to interpr et this result as normal/abnormal . TAMIKO (test code = TAMIKO) The [facility] patient population mean normal value for aPTT is 30 seconds. Lab Interpretation Normal (test code = 87025-0) [facility]stFREE [id number] 19:29:44 Test Item Value Reference Range Interpretation Comments FREE T4 (test code = See_Comment [Autom ated message] 9049348524) The system [employer] ([employer]) generated this result transmitted ref erence range: 0.78 - 2 .20 ng/dL:. The ref erence range was not u sed to interpret this result as normal/abnor mal. Lab Interpretation (test Normal code = 16417-1) [facility]stTroponin [id number] 19:24:48 Test Item Value Reference Range Interpretation Comments TROPONIN I (test <0.012 See_Comment [Automated code = 3415347904) message] The system which generated this result [...] ? Lab Interpretation Normal (test code = 48879-0) [facility]stN-TERMINAL [id number] 19:21:28 Test Item Value Reference Range Interpretation Comments NT-proBNP (test code 47 pg/mL See_Comment [Autom ated = 0066495260) message] The system which generated this result transmitted reference range : <=125. The reference range was not used to interpret this result as normal/abnormal . TAMIKO (test code = TAMIKO) Biotin has been reported to cause a negative bias, interpret results relative to patient's use of biotin. Lab Interpretation Normal (test code = 85746-1) [facility] Metabolic Panel (NA, K, CL, CO2, GLUCOSE, BUN, CREATININE, CA)2020-07-28 19:12:46 Test Item Value Reference Range Interpretation Comments NA (test code = 137 mmol/L 135-145 3764770599) K (test code = 3.5 mmol/L 3.5-5.0 9691630034) CL (test code = 99 mmol/L 98-108 4191898612) CO2 TOTAL (test code = 26 mmol/L 23-31 7162681226) AGAP (test code = 2-16 6356695898) BUN (test code = 3 mg/dL 7-23 L 4185607321) GLUCOSE (test code = 96 mg/dL 70-110 5548912879) CREATININE (test code = 0.69 mg/dL 0.60-1.25 9427099778) CALCIUM (test code = 9.1 mg/dL 8.6-10.6 9460563165) eGFR Calculation mL/min/1.73m2 (Non-) (test code = 1089862692) eGFR Calculation mL/min/1.73m2 () (test code = 1284480148) TAMIKO (test code = TAMIKO) Association of [...] tests). Lab Interpretation Abnormal (test code = 05547-7) [facility]stHepatic Function Panel (ALB, T.PRO, BILI T, BU/BC, ALT, AST, ALK PHOS)2020-07-28 19:12:26 Test Item Value Reference Range Interpretation Comments TOTAL BILI (test code = 6483451071) 0.5 mg/dL 0.1-1.1 BILI UNCON (test code = 1169327487) 0.3 mg/dL 0.1-1.1 BILI CONJ (test code = 4158032711) 0.0 mg/dL 0.0-0.3 T PROTEIN (test code = 6470091998) 7.7 g/dL 6.3-8.2 ALBUMIN (test code = 4153780299) 4.7 g/dL 3.5-5.0 ALK PHOS (test code = 1118309993) 115 U/L 34-122 ALTv (test code = 1742-6) 29 U/L 5-50 AST(SGOT) (test code = 4540390175) 27 U/L 13-40 Lab Interpretation (test code = Normal 85753-1) [facility]stCOVID-19 (ID NOW RAPID TESTING)2020-07-28 19:00:24 Test Item Value Reference Range Interpretation Comments SARS-CoV-2 Rapid ID NOW Not Detected Not Detected (test code = 89596-0) TAMIKO (test code = TAMIKO) ID NOW COVID-19 Assay is an isothermal nucleic acid amplification test intended for the qualitative detection of nucleic acid from SARS-CoV-2 viral RNA in nasopharyngeal (AUTOMOTIVE MACHINIST APPRENTICE) specimens. It is used under Emergency Use [...] indicated. Lab Interpretation Normal (test code = 77167-3) [facility] / [facility] - DRUG SCREEN [id number] 18:56:58 Test Item Value Reference Range Interpretation Comments BENZO U (test code = Presumptive Positive Negative A 9198887638) CLAUDIA U (test code = Negative Negative 1352653204) AMPHET (test code = Presumptive Positive Negative A 1513954888) THC (test code = Negative Negative 8488801307) METHADONE (test code = Negative Negative 5824751811) Meth U (test code = Presumptive Positive Negative A 6663707940) OPIATES (test code = Presumptive Positive Negative A 8666963455) Cocaine Metabolite (test Negative Negative code = 5678657731) PROPOXY (test code = Negative Negative 1578484725) Tric U (test code = Negative Negative 4790657550) PCP (test code = Negative Negative 0880799941) OXYCOD (test code = Negative Negative 4751999074) TAMIKO (test code = TAMIKO) Urine Drug [...] testing). Lab Interpretation (test Abnormal code = 53754-7) [facility]stUrinalysis2021-03-20 18:54:32 Test Item Value Reference Range Interpretation Comments APPEARANCE (test code = Clear Clear 2979957350) COLOR (test code = Yellow Yellow 7848735908) PH (test code = 4.8-8.0 6053141312) SP GRAVITY (test code = 1.003-1.030 3462305964) GLU U QUAL (test code = Normal Normal 0321214738) BLOOD (test code = Negative Negative 9590662868) KETONES (test code = Negative Negative 8906867202) PROTEIN (test code = Negative Negative 2887-8) UROBILIN (test code = Normal Normal 7841125384) BILIRUBIN (test code = Negative Negative 9249094248) NITRITE (test code = Negative Negative 0298848805) LEUK GINO (test code = Negative Negative 1711407747) RBC/HPF (test code = See_Comment [Autom ated message] 4226974664) The system [employer] ([employer]) generated this result transmitted ref erence range: 0 - 3 HP F. The reference range was not used to int erpret this result as normal/abnormal . WBC/HPF (test code = <1 See_Comment [Autom ated message] 0755925814) The system [employer] ([employer]) generated this result transmitted ref erence range: 0 - 5 HP F. The reference range was not used to int erpret this result as normal/abnormal . BACTERIA (test code = Negative Negative 6361560814) Lab Interpretation (test Normal code = 52296-9) [facility]stProthrombin Time (PT) / [id number] 18:54:27 Test Item Value Reference Range Interpretation Comments PROTIME PATIENT (test See_Comment [Auto mated message] code = 5964-2) The system [employer] generated this result transmitted ref erence range: 12.0 - 1 4.7 Seconds. The re ference range was not u sed to interpret this result as normal/abnor mal. INR (test code = 6301-6) Nor mal INR <1.1; Warfarin Therap eutic range 2.0 to 3. 0 or 2.5 to 3.5, dep ending upon the indica tions. Lab Interpretation (test Normal code = 15044-3) [facility] with [id number] 18:41:23 Test Item Value Reference Range Interpretation Comments WBC (test code = See_Comment [Automated message] 6690-2) The system [employer] ([employer]) generated this result transmitted ref erence range: 4.20 - 1 0.70 10*3/?L. The re ference range was not u sed to interpret this result as normal/abnor mal. RBC (test code = See_Comment [Automated message] 789-8) The system [employer] ([employer] generated this result transmitted ref erence range: [...] RDW-SD (test code 43.4 fL 38.5-51.6 = 59534-4) RDW-CV (test code 13.2 % 12.1-15.4 = 788-0) PLT (test code = See_Comment [Automated message] 087-3) The system [employer] ([employer] generated this result transmitted ref erence range: 150 - 32 8 10*3/?L. The re ference range was not u sed to interpret this result as normal/abnor mal. MPV (test code = 9.9 fL 9.8-13.0 43307-0) NRBC/100 WBC (test See_Comment [Automat ed message] code = 4549522577) The [employer] which generated this result transmitted ref erence range: 0.0 - 10 .0 /100 WBCs. The refer ence range was not u sed to interpret this result as normal/abnor mal. NRBC x10^3 (test <0.01 See_Comment [Automated message] code = 8778449034) The [employer] which generated this result transmitted ref erence range: 10*3/?L. The reference range was not used to interpr et this result as normal/abnormal . GRAN MAT (NEUT) % 68.0 % (test code = 770-8) IMM GRAN % (test 0.50 % code = 0900353345) LYMPH % (test code 18.2 % = 736-9) MONO % (test code 11.6 % = 5905-5) EOS % (test code = 1.1 % 713-8) BASO % (test code 0.6 % = 706-2) GRAN MAT 5.40 10*3/uL 1.99-6.95 x10^3(ANC) (test code = 9063085227) IMM GRAN x10^3 0.04 10*3/uL 0.00-0.06 (test code = 2077249496) LYMPH x10^3 (test 1.45 10*3/uL 1.09-3.23 code = 731-0) MONO x10^3 (test 0.92 10*3/uL 0.36-1.02 code = 742-7) EOS x10^3 (test 0.09 10*3/uL 0.06-0.53 code = 711-2) BASO x10^3 (test 0.05 10*3/uL 0.01-0.09 code = 704-7) [facility]stKUSHALMUSC [facility] NORTHEASTALEJANDRO [id number] 15:56:00 Test Item Value Reference Range Interpretation Comments TROPONIN I (test 0.006 ng/mL See_Comment [Automated code = 7896401795) message] The system which generated this result [...] ? Lab Interpretation Normal (test code = 45414-3) [facility]stLOGAN [id number] 14:08:00 Test Item Value Reference Range Interpretation Comments TROPONIN I (test 0.021 ng/mL See_Comment Hemolyzed code = 1244977691) specimen [Automated message] The system which generated [...] ? Lab Interpretation Normal (test code = 33383-9) [facility]stBasic Metabolic Panel (NA, K, CL, CO2, GLUCOSE, BUN, CREATININE, CA)2020-06-30 13:25:00 Test Item Value Reference Range Interpretation Comments NA (test code = 138 mmol/L 135-145 1105678687) K (test code = 3.5 mmol/L 3.5-5 1479142338) CL (test code = 107 mmol/L 98-108 8111899212) CO2 TOTAL (test code = 20 mmol/L 23-31 L 7582348662) AGAP (test code = 2-16 3284526491) BUN (test code = 12 mg/dL 7-23 1641760511) GLUCOSE (test code = 93 mg/dL 70-110 1453818376) CREATININE (test code = 0.83 mg/dL 0.6-1.25 7984223673) CALCIUM (test code = 8.9 mg/dL 8.6-10.6 5662731356) eGFR Calculation mL/min/1.73m2 (Non-) (test code = 0731447009) eGFR Calculation mL/min/1.73m2 () (test code = 1755940852) TAMIKO (test code = TAMIKO) Association of [...] tests). Lab Interpretation Abnormal (test code = 95661-3) [facility] with [id number] 13:04:00 Test Item Value Reference Range Interpretation Comments WBC (test code = See_Comment [Automated 9390-2) message] The sy stem which generated this [...] RDW-SD (test code = 47.3 fL 38.5-51.6 54030-9) RDW-CV (test code = 14.1 % 12.1-15.4 788-0) PLT (test code = See_Comment [Automated 777-3) message] The sy stem which generated this result transmitted reference range : 150 - 328 10*3/ ?L. The reference r javier was not used to interpret this result as normal/abnormal . MPV (test code = 10.1 fL 9.8-13 70911-0) NRBC/100 WBC (test See_Comment [Automat ed code = 5651730631) message] The system which generated this result transmitted reference range : 0.0 - 10.0 /100 WBCs. The refer ence range was not u sed to interpret th is result as normal/abnormal . NRBC x10^3 (test code <0.01 See_Comment [Auto mated = 9586570280) message] The s ystem which generated this result transmitted reference range : 10*3/?L. The reference range was not used to interpret this result as normal/abnormal . GRAN MAT (NEUT) % 45.2 % (test code = 770-8) IMM GRAN % (test code 0.50 % = 9681900868) LYMPH % (test code = 39.0 % 736-9) MONO % (test code = 11.9 % 5905-5) EOS % (test code = 2.6 % 713-8) BASO % (test code = 0.8 % 706-2) GRAN MAT x10^3(ANC) 3.00 10*3/uL 1.99-6.95 (test code = 3077306516) IMM GRAN x10^3 (test 0.03 10*3/uL 0-0.06 code = 6985740773) LYMPH x10^3 (test code 2.58 10*3/uL 1.09-3.23 = 731-0) MONO x10^3 (test code 0.79 10*3/uL 0.36-1.02 = 742-7) EOS x10^3 (test code = 0.17 10*3/uL 0.06-0.53 711-2) BASO x10^3 (test code 0.05 10*3/uL 0.01-0.09 = 704-7) Lab Interpretation Abnormal (test code = 28188-6) [facility]stXR CHEST 1 [id number] 05:44:12 No acute cardiopulmonary abnormality. Preliminary Report [...] reviewed this study and agree with the abovereport.[facility] TROPONIN [id number] 05:05:00 Test Item Value Reference Range Interpretation Comments TROPONIN I (test <0.012 See_Comment [Automated code = 1468175242) message] The system which generated this result [...] ? Lab Interpretation Normal (test code = 63567-9) [facility]stCOMP. METABOLIC PANEL (67277)2019-11-10 05:05:00 Test Item Value Reference Range Interpretation Comments NA (test code = 135 mmol/L 135-145 1801977698) K (test code = 3.6 mmol/L 3.5-5 2335794047) CL (test code = 102 mmol/L 98-108 2585078711) CO2 TOTAL (test code = 23 mmol/L 23-31 3389250939) AGAP (test code = 2-16 4788762174) BUN (test code = 15 mg/dL 7-23 5205725092) GLUCOSE (test code = 93 mg/dL 70-110 1471176581) CREATININE (test code 0.79 mg/dL 0.6-1.25 = 5487829827) TOTAL BILI (test code 0.4 mg/dL 0.1-1.1 = 5738309268) CALCIUM (test code = 9.4 mg/dL 8.6-10.6 6357322997) T PROTEIN (test code = 7.9 g/dL 6.3-8.2 2965825857) ALBUMIN (test code = 4.5 g/dL 3.5-5 1128873852) ALK PHOS (test code = 61 U/L 34-122 6330597387) ALTv (test code = 22 U/L 5-50 1742-6) AST(SGOT) (test code = 26 U/L 13-40 0516940311) eGFR Calculation mL/min/1.73m2 (Non-) (test code = 8987146644) eGFR Calculation mL/min/1.73m2 () (test code = 3425882560) TAMIKO (test code = TAMIKO) Association of [...] or urine or abnormalities in imaging tests). [facility]staPTT2020-07-02 04:45:00 Test Item Value Reference Range Interpretation Comments APTT Patient (test See_Comment [Automat ed code = 3173-2) message] The system which generated this result transmitted reference range : 23 - 38 Seconds . The reference range was not used to interpr et this result as normal/abnormal . TAMIKO (test code = TAMIKO) The [facility] patient population mean normal value for aPTT is 30 seconds. Lab Interpretation Normal (test code = 96602-0) [facility]stPROTHROMBIN TIME / [id number] 04:45:00 Test Item Value Reference Range Interpretation [...] tions. Lab Interpretation (test Normal code = 98392-5) [facility]stCBC WITH [id number] 04:37:00 Test Item Value Reference Range Interpretation Comments WBC (test code = See_Comment [Automated 7590-2) message] The sy stem which generated this result transmitted reference range : 4.20 - 10.70 10*3/?L. The reference range was not used to interpret this result as normal/abnormal . RBC (test code = See_Comment [Automated 839-8) message] The sy stem which generated this [...] RDW-SD (test code = 39.7 fL 38.5-51.6 75883-5) RDW-CV (test code = 12.7 % 12.1-15.4 788-0) PLT (test code = See_Comment [Automated 777-3) message] The sy stem which generated this result transmitted reference range : 150 - 328 10*3/ ?L. The reference r javier was not used to interpret this result as normal/abnormal . MPV (test code = 10.3 fL 9.8-13 45889-1) NRBC/100 WBC (test See_Comment [Automat ed code = 4513524980) message] The system which generated this result transmitted reference range : 0.0 - 10.0 /100 WBCs. The refer ence range was not u sed to interpret th is result as normal/abnormal . NRBC x10^3 (test code <0.01 See_Comment [Auto mated = 0431067845) message] The s ystem which generated this result transmitted reference range : 10*3/?L. The reference range was not used to interpret this result as normal/abnormal . GRAN MAT (NEUT) % 47.9 % (test code = 770-8) IMM GRAN % (test code 0.20 % = 1554233982) LYMPH % (test code = 33.3 % 736-9) MONO % (test code = 12.1 % 5905-5) EOS % (test code = 5.7 % 713-8) BASO % (test code = 0.8 % 706-2) GRAN MAT x10^3(ANC) 5.08 10*3/uL 1.99-6.95 (test code = 6038180810) IMM GRAN x10^3 (test <0.03 0-0.06 code = 4679531465) LYMPH x10^3 (test code 3.53 10*3/uL 1.09-3.23 H = 731-0) MONO x10^3 (test code 1.28 10*3/uL 0.36-1.02 H = 742-7) EOS x10^3 (test code = 0.61 10*3/uL 0.06-0.53 H 711-2) BASO x10^3 (test code 0.09 10*3/uL 0.01-0.09 = 704-7) Lab Interpretation Abnormal (test code = 76625-7) [facility]stURINALYSIS2020-05-21 16:01:00 Test Item Value Reference Range Interpretation Comments APPEARANCE (test code = Clear Clear 9721657508) COLOR (test code = Other Yellow A 8230120815) PH (test code = 4.8-8.0 3799325039) SP GRAVITY (test code = <=1.005 1.003-1.030 4863809361) GLU U QUAL (test code = Negative Negative 5179858492) BLOOD (test code = Negative Negative 3084225556) KETONES (test code = Negative Negative 0731271312) PROTEIN (test code = Negative Negative 2887-8) UROBILIN (test code = 0.2 mg/dL See_Comment [Auto mated message] 7130562969) The system [employer] generated this result transmit luis reference range : 0-1.0 mg/dL. Th e reference range was not used to interpret this result as normal/abnormal . BILIRUBIN (test code = Negative Negative 5621614167) NITRITE (test code = Negative Negative 3650449379) LEUK GINO (test code = Negative Negative 6732381405) RBC/HPF (test code = See_Comment [Autom ated message] 0430716510) The system [employer] generated this result transmit luis reference range : 0 - 3 HPF. The refe rence range was not u sed to interpret th is result as normal/abnormal . WBC/HPF (test code = See_Comment [Autom ated message] 2504695151) The system [employer] generated this result transmit luis reference range : 0 - 5 HPF. The refe rence range was not u sed to interpret th is result as normal/abnormal . BACTERIA (test code = Negative Negative 9676573794) MUCOUS (test code = Slight Negative LPF A 3390396269) SQ EPITH (test code = HPF 4744449475) Lab Interpretation (test Abnormal code = 11380-6) [facility]. METABOLIC PANEL (45657)2019-09-29 15:57:00 Test Item Value Reference Range Interpretation Comments NA (test code = 140 mmol/L 135-145 2669931320) K (test code = 4.8 mmol/L 3.5-5 6653204838) CL (test code = 106 mmol/L 98-108 7191166106) CO2 TOTAL (test code = 24 mmol/L 23-31 3151944441) AGAP (test code = 2-16 3749083173) BUN (test code = 14 mg/dL 7-23 4001451926) GLUCOSE (test code = 94 mg/dL 70-110 9361092025) CREATININE (test code 0.66 mg/dL 0.6-1.25 = 5849994548) TOTAL BILI (test code 0.5 mg/dL 0.1-1.1 = 3347357156) CALCIUM (test code = 9.5 mg/dL 8.6-10.6 5063845840) T PROTEIN (test code = 8.1 g/dL 6.3-8.2 6234924041) ALBUMIN (test code = 4.6 g/dL 3.5-5 3372866544) ALK PHOS (test code = 41 U/L 34-122 5732401123) ALTv (test code = 17 U/L 5-50 1742-6) AST(SGOT) (test code = 29 U/L 13-40 6418316347) eGFR Calculation mL/min/1.73m2 (Non-) (test code = 1604639587) eGFR Calculation mL/min/1.73m2 () (test code = 6524125750) TAMIKO (test code = TAMIKO) Association of [...] or urine or abnormalities in imaging tests). [facility] WITH [id number] 15:34:00 Test Item Value Reference Range Interpretation Comments WBC (test code = See_Comment [Automated 7195-2) message] The sy stem which generated this result transmitted reference range : 4.20 - 10.70 10*3/?L. The reference range was not used to interpret this result as normal/abnormal . RBC (test code = See_Comment [Automated 119-8) message] The sy stem which generated this [...] RDW-SD (test code = 41.0 fL 38.5-51.6 98194-9) RDW-CV (test code = 12.5 % 12.1-15.4 788-0) PLT (test code = See_Comment [Automated 777-3) message] The sy stem which generated this result transmitted reference range : 150 - 328 10*3/ ?L. The reference r javier was not used to interpret this result as normal/abnormal . MPV (test code = 10.3 fL 9.8-13 89546-8) NRBC/100 WBC (test See_Comment [Automat ed code = 5764271839) message] The system which generated this result transmitted reference range : 0.0 - 10.0 /100 WBCs. The refer ence range was not u sed to interpret th is result as normal/abnormal . NRBC x10^3 (test code <0.01 See_Comment [Auto mated = 2162821721) message] The s ystem which generated this result transmitted reference range : 10*3/?L. The reference range was not used to interpret this result as normal/abnormal . GRAN MAT (NEUT) % 54.5 % (test code = 770-8) IMM GRAN % (test code 0.20 % = 2903368819) LYMPH % (test code = 28.0 % 736-9) MONO % (test code = 10.0 % 5905-5) EOS % (test code = 6.6 % 713-8) BASO % (test code = 0.7 % 706-2) GRAN MAT x10^3(ANC) 4.68 10*3/uL 1.99-6.95 (test code = 9494846892) IMM GRAN x10^3 (test <0.03 0-0.06 code = 5329339887) LYMPH x10^3 (test code 2.41 10*3/uL 1.09-3.23 = 731-0) MONO x10^3 (test code 0.86 10*3/uL 0.36-1.02 = 742-7) EOS x10^3 (test code = 0.57 10*3/uL 0.06-0.53 H 711-2) BASO x10^3 (test code 0.06 10*3/uL 0.01-0.09 = 704-7) Lab Interpretation Abnormal (test code = 55016-4) [facility]TR[facility] [id number] 13:56:00 Test Item Value Reference Range Interpretation Comments TROPONIN I (test <0.012 See_Comment [Automated code = 8318979393) message] The system which generated this result [...] ? Lab Interpretation Normal (test code = 65983-8) [facility] [facility]PROT[facility]OM[facility] / [id number] 13:44:00 Test Item Value Reference Range Interpretation Comments PROTIME PATIENT (test See_Comment [Auto mated message] code = 5964-2) The system Zelgor ich generated this result transmitted ref erence range: 12.0 - 1 4.7 Seconds. The re ference range was not u sed to interpret this result as normal/abnor mal. INR (test code = 6301-6) Nor mal INR <1.1; Warfarin Therap eutic range 2.0 to 3. 0 or 2.5 to 3.5, dep ending upon the indica tions. Lab Interpretation (test Normal code = 10597-4) [facility]stCOMP. METABOLIC PANEL (41581)2019-06-16 13:44:00 Test Item Value Reference Range Interpretation Comments NA (test code = 138 mmol/L 135-145 1123546778) K (test code = 3.9 mmol/L 3.5-5 7070052833) CL (test code = 100 mmol/L 98-108 7301770791) CO2 TOTAL (test code = 28 mmol/L 23-31 1923169270) AGAP (test code = 2-16 7313874109) BUN (test code = 14 mg/dL 7-23 2525268769) GLUCOSE (test code = 108 mg/dL 70-110 6575002892) CREATININE (test code = 0.75 mg/dL 0.6-1.25 0248664590) TOTAL BILI (test code = 0.5 mg/dL 0.1-1.9 2756416882) CALCIUM (test code = 8.8 mg/dL 8.6-10.6 5580587119) T PROTEIN (test code = 7.3 g/dL 6.3-8.2 0913274581) ALBUMIN (test code = 4.4 g/dL 3.5-5 5832773094) ALK PHOS (test code = 63 U/L 34-122 2438905536) ALTv (test code = 48 U/L 5-50 1742-6) AST(SGOT) (test code = 47 U/L 13-40 H 8270707782) eGFR Calculation mL/min/1.73m2 (Non-) (test code = 5065011346) eGFR Calculation mL/min/1.73m2 () (test code = 3806848566) TAMIKO (test code = TAMIKO) Association of [...] tests). Lab Interpretation Abnormal (test code = 21639-0) [facility]stLIPASE, [id number] 13:44:00 Test Item Value Reference Range Interpretation Comments LIPASE (test code = 5332334617) 61 U/L 0-220 Lab Interpretation (test code = Normal 67793-4) [facility]staPTT2020-02-06 13:43:00 Test Item Value Reference Range Interpretation Comments APTT Patient (test See_Comment [Automat ed code = 3173-2) message] The system which generated this result transmitted reference range : 23 - 38 Seconds . The reference range was not used to interpr et this result as normal/abnormal . TAMIKO (test code = TAMIKO) The [facility] patient population mean normal value for aPTT is 30 seconds. Lab Interpretation Normal (test code = 40184-2) [facility]stCBC WITH [id number] 13:30:00 Test Item Value Reference Range Interpretation Comments WBC (test code = See_Comment [Automated 2790-2) message] The sy stem which generated this [...] RDW-SD (test code = 40.6 fL 38.5-51.6 16266-2) RDW-CV (test code = 12.6 % 12.1-15.4 788-0) PLT (test code = See_Comment [Automated 777-3) message] The sy stem which generated this result transmitted reference range : 150 - 328 10*3/ ?L. The reference r javier was not used to interpret this result as normal/abnormal . MPV (test code = 9.7 fL 9.8-13 L 17400-5) NRBC/100 WBC (test See_Comment [Automat ed code = 8823537086) message] The system which generated this result transmitted reference range : 0.0 - 10.0 /100 WBCs. The refer ence range was not u sed to interpret th is result as normal/abnormal . NRBC x10^3 (test code <0.01 See_Comment [Auto mated = 2799692572) message] The s ystem which generated this result transmitted reference range : 10*3/?L. The reference range was not used to interpret this result as normal/abnormal . GRAN MAT (NEUT) % 52.5 % (test code = 770-8) IMM GRAN % (test code 0.30 % = 4791212961) LYMPH % (test code = 29.9 % 736-9) MONO % (test code = 11.5 % 5905-5) EOS % (test code = 4.5 % 713-8) BASO % (test code = 1.3 % 706-2) GRAN MAT x10^3(ANC) 3.14 10*3/uL 1.99-6.95 (test code = 6878140687) IMM GRAN x10^3 (test <0.03 0-0.06 code = 7854078990) LYMPH x10^3 (test code 1.79 10*3/uL 1.09-3.23 = 731-0) MONO x10^3 (test code 0.69 10*3/uL 0.36-1.02 = 742-7) EOS x10^3 (test code = 0.27 10*3/uL 0.06-0.53 711-2) BASO x10^3 (test code 0.08 10*3/uL 0.01-0.09 = 704-7) Lab Interpretation Abnormal (test code = 42749-6) [id number] 19:02:00 Test Item Value Reference Range Interpretation Comments TROPONIN I (test <0.012 See_Comment [Automated code = 8170834803) message] The system which generated this result [...] ? Lab Interpretation Normal (test code = 02366-2) [facility]stCOM. METABOLIC PANEL (46451)2019-06-15 18:50:00 Test Item Value Reference Range Interpretation Comments NA (test code = 145 mmol/L 135-145 9733613384) K (test code = 4.1 mmol/L 3.5-5 3683773686) CL (test code = 103 mmol/L 98-108 3953093448) CO2 TOTAL (test code = 32 mmol/L 23-31 H 0665861380) AGAP (test code = 2-16 6543198984) BUN (test code = 11 mg/dL 7-23 2336195083) GLUCOSE (test code = 108 mg/dL 70-110 7205273482) CREATININE (test code = 0.73 mg/dL 0.6-1.25 6621361049) TOTAL BILI (test code = 0.5 mg/dL 0.1-1.4 9650004258) CALCIUM (test code = 9.3 mg/dL 8.6-10.6 5669947469) T PROTEIN (test code = 8.1 g/dL 6.3-8.2 7493425019) ALBUMIN (test code = 4.9 g/dL 3.5-5 7472574896) ALK PHOS (test code = 65 U/L 34-122 0632939748) ALTv (test code = 61 U/L 5-50 H 1742-6) AST(SGOT) (test code = 45 U/L 13-40 H 8630598825) eGFR Calculation mL/min/1.73m2 (Non-) (test code = 3706993394) eGFR Calculation mL/min/1.73m2 () (test code = 9788311648) TAMIKO (test code = TAMIKO) Association of [...] tests). Lab Interpretation Abnormal (test code = 46410-0) [facility]stMAGNESIUM2020-02-05 18:50:00 Test Item Value Reference Range Interpretation Comments MAGNESIUM (test code = 0872241723) 2.2 mg/dL 1.7-2.4 Lab Interpretation (test code = Normal 50831-9) [facility] WITH [id number] 18:39:00 Test Item Value Reference Range Interpretation Comments WBC (test code = See_Comment [Automated message] 5990-2) The system [employer] ([employer]) generated this result transmitted ref erence range: 4.20 - 1 0.70 10*3/?L. The re ference range was not u sed to interpret this result as normal/abnor mal. RBC (test code = See_Comment [Automated message] 789-8) The system [employer] ([employer]) generated this result transmitted ref erence range: [...] RDW-SD (test code 41.5 fL 38.5-51.6 = 86886-6) RDW-CV (test code 12.9 % 12.1-15.4 = 788-0) PLT (test code = See_Comment [Automated message] 777-3) The system whic h generated this result transmitted ref erence range: 150 - 32 8 10*3/?L. The re ference range was not u sed to interpret this result as normal/abnor mal. MPV (test code = 10.0 fL 9.8-13 53170-0) NRBC/100 WBC (test See_Comment [Automat ed message] code = 0683914131) The syste m which generated this result transmitted ref erence range: 0.0 - 10 .0 /100 WBCs. The refer ence range was not u sed to interpret this result as normal/abnor mal. NRBC x10^3 (test <0.01 See_Comment [Automated message] code = 3282373820) The syste m which generated this result transmitted ref erence range: 10*3/?L. The reference range was not used to interpr et this result as normal/abnormal . GRAN MAT (NEUT) % 45.9 % (test code = 770-8) IMM GRAN % (test 0.10 % code = 3944371795) LYMPH % (test code 39.6 % = 736-9) MONO % (test code 8.6 % = 5905-5) EOS % (test code = 4.6 % 713-8) BASO % (test code 1.2 % = 706-2) GRAN MAT 3.36 10*3/uL 1.99-6.95 x10^3(ANC) (test code = 2602606078) IMM GRAN x10^3 <0.03 0-0.06 (test code = 7785669709) LYMPH x10^3 (test 2.91 10*3/uL 1.09-3.23 code = 731-0) MONO x10^3 (test 0.63 10*3/uL 0.36-1.02 code = 742-7) EOS x10^3 (test 0.34 10*3/uL 0.06-0.53 code = 711-2) BASO x10^3 (test 0.09 10*3/uL 0.01-0.09 code = 704-7) [facility]stXR CHEST 1 [id number] 18:31:36HISTORY: SOB. TECHNIQUE: Portable AP erect view [...] limits. CONCLUSIONS: No signs of acute cardiopulmonary disease.[facility] FLU A AND B (MOLECULAR)2019 16:36:00 Test Item Value Reference Range Interpretation Comments POCT INFLUENZA A (test code = negative Negative - Negative 3840) POCT INFLUENZA B (test code = negative Negative - Negative 3841) Lab Interpretation (test code = Normal 51413-3) [facility] GRP A STREP (MOLECULAR)2019 16:34:00 Test Item Value Reference Range Interpretation Comments POCT GP A STREP (test code = negative Negative - Negative 34104-7) Lab Interpretation (test code = Normal 77802-3) [facility]stURINALYSIS2019-09-16 23:07:00 Test Item Value Reference Range Interpretation Comments APPEARANCE (test code = Clear Clear 3053251678) COLOR (test code = Yellow Yellow 5972568562) PH (test code = 4.8-8.0 9989654996) SP GRAVITY (test code = 1.003-1.030 4234645449) GLU U QUAL (test code = Normal Normal 4523871399) BLOOD (test code = Negative Negative 8481439008) KETONES (test code = 5 mg/dL Negative A 9565331830) PROTEIN (test code = Negative Negative 2887-8) UROBILIN (test code = Normal Normal 9143076145) BILIRUBIN (test code = Negative Negative 6895792542) NITRITE (test code = Negative Negative 3080326957) LEUK GINO (test code = Negative Negative 3486872742) RBC/HPF (test code = See_Comment [Autom ated message] 0310390005) The system [employer] ([employer]) generated this result transmitted ref erence range: 0 - 3 HP F. The reference range was not used to int erpret this result as normal/abnormal . WBC/HPF (test code = See_Comment [Autom ated message] 3888887228) The system [employer] ([employer]) generated this result transmitted ref erence range: 0 - 5 HP F. The reference range was not used to int erpret this result as normal/abnormal . BACTERIA (test code = Negative Negative 1255840141) MUCOUS (test code = Slight Negative LPF A 5714865727) HYAL CAST (test code = See_Comment H [Aut omated message] 0108689350) The system [employer] ([employer] generated this result transmitted ref erence range: <=2 LPF. The reference range was not used to int erpret this result as normal/abnormal . Lab Interpretation (test Abnormal code = 28632-3) [facility] [id number] 22:42:00 Test Item Value Reference Range Interpretation Comments TROPONIN I (test 0.002 ng/mL See_Comment [Automated code = 6873733644) message] The system which generated this result [...] ? Lab Interpretation Normal (test code = 36373-4) [facility]AD [facility] [id number] 22:36:00 Test Item Value Reference Range Interpretation Comments BENZO U (test code = Presumptive Positive Negative A 2554943406) CLAUDIA U (test code = Negative Negative 1051556880) AMPHET (test code = Negative Negative 7830044059) THC (test code = Negative Negative 0734069068) METHADONE (test code = Negative Negative 3211114384) Meth U (test code = Negative Negative 7464191729) OPIATES (test code = Negative Negative 3610697269) Cocaine Metabolite (test Negative Negative code = 3482825419) PROPOXY (test code = Negative Negative 4090352517) Tric U (test code = Negative Negative 3562664151) PCP (test code = Negative Negative 0870144192) OXYCOD (test code = Negative Negative 5942586669) TAMIKO (test code = TAMIKO) Urine Drug [...] testing). Lab Interpretation (test Abnormal code = 05757-1) [facility]COMP. METABOLIC PANEL (71893)2019-01-24 22:30:00 Test Item Value Reference Range Interpretation Comments NA (test code = 148 mmol/L 135-145 H 5051391460) K (test code = 4.0 mmol/L 3.5-5 9846977845) CL (test code = 110 mmol/L 98-108 H 9636237488) CO2 TOTAL (test code = 24 mmol/L 23-31 8445848591) AGAP (test code = 2-16 8384700537) BUN (test code = 9 mg/dL 7-23 8207497636) GLUCOSE (test code = 85 mg/dL 70-110 7278646203) CREATININE (test code = 0.67 mg/dL 0.6-1.25 1829166412) TOTAL BILI (test code = 0.2 mg/dL 0.1-1.9 0586160309) CALCIUM (test code = 8.7 mg/dL 8.6-10.6 3272443853) T PROTEIN (test code = 7.8 g/dL 6.3-8.2 2164542141) ALBUMIN (test code = 4.7 g/dL 3.5-5 5938780417) ALK PHOS (test code = 47 U/L 34-122 0972453481) ALT(SGPT) (test code = 19 U/L 9-51 4676640131) AST(SGOT) (test code = 25 U/L 13-40 4328549055) eGFR Calculation mL/min/1.73m2 (Non-) (test code = 1993534409) eGFR Calculation mL/min/1.73m2 () (test code = 4517457339) TAMIKO (test code = TAMIKO) Association of [...] tests). Lab Interpretation Abnormal (test code = 37136-2) [facility]stLIPASE2019-09-16 22:30:00 Test Item Value Reference Range Interpretation Comments LIPASE (test code = 3032807944) 112 U/L 0-220 Lab Interpretation (test code = Normal 03846-3) [facility]CBC WITH [id number] 22:07:00 Test Item Value Reference Range Interpretation Comments WBC (test code = See_Comment [Automated message] 7290-2) The system [employer] ([employer] generated this result transmitted ref erence range: 4.20 - 1 0.70 10*3/?L. The re ference range was not u sed to interpret this result as normal/abnor mal. RBC (test code = See_Comment [Automated message] 799-8) The system [employer] ([employer]) generated this result transmitted ref erence range: [...] RDW-SD (test code 42.0 fL 38.5-51.6 = 85166-6) RDW-CV (test code 12.8 % 12.1-15.4 = 788-0) PLT (test code = See_Comment [Automated message] 277-3) The system [employer] ([employer] generated this result transmitted ref erence range: 150 - 32 8 10*3/?L. The re ference range was not u sed to interpret this result as normal/abnor mal. MPV (test code = 10.7 fL 9.8-13 42137-4) NRBC/100 WBC (test See_Comment [Automat ed message] code = 6596053879) The syste m which generated this result transmitted ref erence range: 0.0 - 10 .0 /100 WBCs. The refer ence range was not u sed to interpret this result as normal/abnor mal. NRBC x10^3 (test <0.01 See_Comment [Automated message] code = 3148742915) The syste m which generated this result transmitted ref erence range: 10*3/?L. The reference range was not used to interpr et this result as normal/abnormal . GRAN MAT (NEUT) % 55.2 % (test code = 770-8) IMM GRAN % (test 0.20 % code = 2172881690) LYMPH % (test code 29.8 % = 736-9) MONO % (test code 9.8 % = 5905-5) EOS % (test code = 4.4 % 713-8) BASO % (test code 0.6 % = 706-2) GRAN MAT 4.72 10*3/uL 1.99-6.95 x10^3(ANC) (test code = 0403435791) IMM GRAN x10^3 <0.03 0-0.06 (test code = 8059898784) LYMPH x10^3 (test 2.55 10*3/uL 1.09-3.23 code = 731-0) MONO x10^3 (test 0.84 10*3/uL 0.36-1.02 code = 742-7) EOS x10^3 (test 0.38 10*3/uL 0.06-0.53 code = 711-2) BASO x10^3 (test 0.05 10*3/uL 0.01-0.09 code = 704-7) [facility]stURINALYSIS2019-08-13 23:03:00 Test Item Value Reference Range Interpretation Comments APPEARANCE (test code = Clear Clear 3770048878) COLOR (test code = Yellow Yellow 4311484298) PH (test code = 4.8-8.0 7891487798) SP GRAVITY (test code = >=1.030 1.003-1.030 4872348137) GLU U QUAL (test code = Negative Negative 9813384527) BLOOD (test code = Negative Negative 4881488338) KETONES (test code = Negative Negative 2287961400) PROTEIN (test code = Negative Negative 2887-8) UROBILIN (test code = 0.2 mg/dL See_Comment [Auto mated message] 8085619856) The system [employer] ([employer] generated this result transmit luis reference range : 0-1.0 mg/dL. Th e reference range was not used to interpret this result as normal/abnormal . BILIRUBIN (test code = Negative Negative 1648080512) NITRITE (test code = Negative Negative 8390980440) LEUK GINO (test code = Negative Negative 7760770347) RBC/HPF (test code = See_Comment [Autom ated message] 8417413144) The system [employer] ([employer] generated this result transmit luis reference range : 0 - 3 HPF. The refe rence range was not u sed to interpret th is result as normal/abnormal . WBC/HPF (test code = See_Comment [Autom ated message] 0679738940) The system [employer] ([employer] generated this result transmit luis reference range : 0 - 5 HPF. The refe rence range was not u sed to interpret th is result as normal/abnormal . BACTERIA (test code = Few Negative A 8269297837) Lab Interpretation (test Abnormal code = 73361-9) [facility]. METABOLIC PANEL (71782)2018-12-21 22:57:00 Test Item Value Reference Range Interpretation Comments NA (test code = 145 mmol/L 135-145 9373985606) K (test code = 3.7 mmol/L 3.5-5 2956466785) CL (test code = 106 mmol/L 98-108 8657787103) CO2 TOTAL (test code = 24 mmol/L 23-31 7887362821) AGAP (test code = 2-16 1229370803) BUN (test code = 9 mg/dL 7-23 1295282928) GLUCOSE (test code = 129 mg/dL 70-110 H 7432664677) CREATININE (test code = 0.75 mg/dL 0.6-1.25 9530522125) TOTAL BILI (test code = 0.3 mg/dL 0.1-1.1 4201667457) CALCIUM (test code = 9.1 mg/dL 8.6-10.6 8286203481) T PROTEIN (test code = 7.9 g/dL 6.3-8.2 4954854994) ALBUMIN (test code = 4.5 g/dL 3.5-5 9263704736) ALK PHOS (test code = 66 U/L 34-122 2789354363) ALT(SGPT) (test code = 62 U/L 9-51 H 6294714134) AST(SGOT) (test code = 42 U/L 13-40 H 8463226084) eGFR Calculation mL/min/1.73m2 (Non-) (test code = 8742626535) eGFR Calculation mL/min/1.73m2 () (test code = 2401918433) TAMIKO (test code = TAMIKO) Association of [...] tests). Lab Interpretation Abnormal (test code = 47337-8) [facility]2019-08-13 22:57:00 Test Item Value Reference Range Interpretation Comments LIPASE (test code = 5786040374) 296 U/L 0-220 H Lab Interpretation (test code = Abnormal 65275-7) [facility]MAG[facility]2019-08-13 22:57:00 Test Item Value Reference Range Interpretation Comments MAGNESIUM (test code = 8146482352) 1.9 mg/dL 1.7-2.4 Lab Interpretation (test code = Normal 26380-3) [facility] WITH [id number] 22:38:00 Test Item Value Reference Range Interpretation [...] RDW-SD (test code = 44.4 fL 38.5-51.6 81086-4) RDW-CV (test code = 13.3 % 12.1-15.4 788-0) PLT (test code = See_Comment [Automated 777-3) message] The sy stem which generated this result transmitted reference range : 150 - 328 10*3/ ?L. The reference r javier was not used to interpret this result as normal/abnormal . MPV (test code = 10.0 fL 9.8-13 10941-3) NRBC/100 WBC (test See_Comment [Automat ed code = 6444431358) message] The system which generated this result transmitted reference range : 0.0 - 10.0 /100 WBCs. The refer ence range was not u sed to interpret th is result as normal/abnormal . NRBC x10^3 (test code <0.01 See_Comment [Auto mated = 1986890120) message] The s ystem which generated this result transmitted reference range : 10*3/?L. The reference range was not used to interpret this result as normal/abnormal . GRAN MAT (NEUT) % 53.1 % (test code = 770-8) IMM GRAN % (test code 0.50 % = 3358240149) LYMPH % (test code = 27.1 % 736-9) MONO % (test code = 10.7 % 5905-5) EOS % (test code = 7.7 % 713-8) BASO % (test code = 0.9 % 706-2) GRAN MAT x10^3(ANC) 5.47 10*3/uL 1.99-6.95 (test code = 0581493611) IMM GRAN x10^3 (test 0.05 10*3/uL 0-0.06 code = 1722020262) LYMPH x10^3 (test code 2.79 10*3/uL 1.09-3.23 = 731-0) MONO x10^3 (test code 1.10 10*3/uL 0.36-1.02 H = 742-7) EOS x10^3 (test code = 0.79 10*3/uL 0.06-0.53 H 711-2) BASO x10^3 (test code 0.09 10*3/uL 0.01-0.09 = 704-7) Lab Interpretation Abnormal (test code = 15672-6) [facility]stMYOCARD IMAGING, MULTI, [id number] 14:45:00FINAL REPORT PROCEDURE: Rest/Stress MYOCARDIAL PERFUSION SPECT with treadmill\\XA9\\ CPT CODE: 60201 INDICATION: Chest pain HISTORY: Cardiac risk factors: [...] tracer distribution. 6. No previous [facility] study for comparison. NONINVASIVE RISK STRATIFICATION: The above findings are considered low risk (<1% annual mortality rate) based on the following criterion:- Normal or small myocardial perfusion defect at rest or with stress(JACC. 2012;59(9):857-81.) Signed: Ignacio Ruvalcaba [facility] Verified Date/Time: 03/17/2017 14:45:11 Reading Location: [address] Reading Room HEMOGLOBIN [id number] 08:29:00 Test Item Value Reference Range Interpretation Comments HEMOGLOBIN A1C (YING) (test code = 5.5 % 4.3-6.1 368) TROPONIN [id number] 02:45:00 Test Item Value Reference Range Interpretation [...] Normal6.7-10.0 Borderline>10.0 AbnormalRAD, CHEST, 1 VIEW, NON [id number] 20:40:00Reason for exam:- >chest painShould this be performed at the bedside?->YesFINAL REPORT EXAMINATION: AP PORTABLE CHEST RADIOGRAPH CLINICAL INDICATION:Chest pain IMPRESSION: Compared with 04/30/2016. No evidence of focal lung consolidation, pulmonary edema or pleural effusion. The heart size is normal. Mediastinal contours are sharp. No evidence of an acute osseous abnormality or pneumothorax. Signed: [facility] Verified Date/Time: 03/16/2017 20:40:21 Reading Location: [address] Reading Room B-TYPE NATRIURETIC FACTOR (BNP)2017-03-16 20:30:00 Test Item Value Reference Range Interpretation Comments B-TYPE NATRIURETIC PEPTIDE (BEAKER) < pg/mL 0-100 (test code = 700) COMPREHENSIVE METABOLIC [id number] 20:30:00 Test Item Value Reference Range Interpretation [...] ATED GFR. CREATINE KINASE (CK), TOTAL AND [id number] 20:28:00 Test Item Value Reference Range Interpretation Comments CREATINE KINASE TOTAL (BEAKER) 50 U/L 29-200 (test code = 380) CREATINE KINASE-MB (BEAKER) (test 0.5 ng/mL 0.0-6.6 code = 750) CREATINE KINASE-MB INDEX (BEAKER) 1.0 % (test code = 395) CK-MB Reference Range:<6.7 Normal6.7-10.0 Borderline>10.0 AbnormalTROPONIN [id number] 20:28:00 Test Item Value Reference Range Interpretation [...] failure, acidosis, acute neurological disease, and persistent tachyarrhythmia.[id number] 20:21:00 Test Item Value Reference Range Interpretation Comments MAGNESIUM (BEAKER) 2.2 mg/dL 1.6-2.6 Specimen slightly (test code = 627) hemolyzed [id number] 20:21:00 Test Item Value Reference Range Interpretation Comments PHOSPHORUS (BEAKER) 3.9 mg/dL 2.3-4.7 Specimen slightly (test code = 604) hemolyzed LIPID [id number] 20:21:00 Test Item Value Reference Range Interpretation [...] Borderline 130-159 High 160-189 Very High >=190PROTHROMBIN TIME/[id number] 20:07:00 Test Item Value Reference Range Interpretation Comments PROTIME (BEAKER) (test code = 13.0 seconds 11.7-14.7 759) INR (BEAKER) (test code = 370) 1.0 <=5.9 RECOMMENDED COUMADIN/WARFARIN INR THERAPY RANGESSTANDARD DOSE: 2.0 - 3.0 Includes: PROPHYLAXIS forvenous thrombosis, systemic embolization; TREATMENT for venous thrombosis and/or pulmonary embolus.HIGH RISK: Target INR is 2.5-3.5 for patients with mechanical heart valves.[id number] 20:07:00 Test Item Value Reference Range Interpretation Comments PARTIAL THROMBOPLASTIN TIME 26.9 seconds 22.5-36.0 (BEAKER) (test code = 760) CBC W/PLT COUNT & AUTO [id number] 19:57:00 Test Item Value Reference Range Interpretation [...]
[2021-10-07] MEDS ORDERED: lisinopriL 10 MG TAB ONE (09:17)
[2021-10-07] MEDS ORDERED: MECLIZINE HCL 12.5 MG TAB ONE (09:17)
[2021-10-07] MEDS ORDERED: NA CHLORIDE 0.9% 1,000 ML ONE (09:17)
[2021-10-07 09:19] LABS: Urine Blood Negative (Negative); Urine Glucose Negative (Negative); Urine Protein Negative (Negative); Urine Specific Gravity 1.025 (1.005-1.030); Urine pH 5.5 (5.0-7.0)
[2021-10-07 09:20] LABS: Absolute Lymphocytes (CBC) 1.6 K/uL (0.7-4.9); Hematocrit 42.2 % (39.6-49.0); Lymphocytes % 28.7 % (15.3-44.8); MPV 8.3 fL (7.6-11.3)
--- NOTE | 2021-10-07 09:25 | RAD REPORT ---
EXAM DESCRIPTION: CT - Head Brain Wo Cont - 10/07/2021 9:16 am CLINICAL HISTORY: Dizziness COMPARISON: 2019 TECHNIQUE: Computed axial tomography of the head was obtained. IV contrast was not requested. All CT scans are performed using dose optimization technique as appropriate and may include automated exposure control or mA/KV adjustment according to patient size. FINDINGS: An intracranial bleed is not seen . The ventricles are normal in caliber. No significant hypodense areas within the brain visualized No extra-axial fluid collection is noted. Mild to moderate left maxillary and moderate ethmoid chronic sinusitis IMPRESSION: No acute intracranial abnormality is seen. If patient's symptoms persist MRI of the bra in would be recommended. Chronic sinusitis
--- NOTE | 2021-10-07 09:26 | RAD REPORT ---
EXAM DESCRIPTION: Lindsay Single View10/07/2021 9:21 am CLINICAL HISTORY: Dizziness COMPARISON: May 2021 FINDINGS: The lungs appear clear of acute infiltrate. The heart is normal size IMPRESSION: No acute abnormalities displayed
[2021-10-07 09:49] LABS: ALT/SGPT 39 U/L (12-78); AST/SGOT 17 U/L (15-37); Albumin 3.8 g/dL (3.4-5.0); Alkaline Phosphatase 71 U/L (45-117); BUN Blood Urea Nitrogen 13 mg/dL (7-18); Bicarbonate 25 mmol/L (21-32); Bilirubin Total 0.3 mg/dL (0.2-1.0); Glomerular Filtration Rate 118 ml/min (=/>90); Glucose Level 108 mg/dL (74-106); Potassium 3.9 mmol/L (3.5-5.1); Protein, Total 7.3 g/dL (6.4-8.2); Sodium Level 138 mmol/L (136-145); Troponin High Sensitivity 3.1 pg/mL (<58.9)
[2021-10-07 09:49] LABS: Barbiturates NEGATIVE (NEGATIVE); Benzodiazepines NEGATIVE (NEGATIVE); Cocaine NEGATIVE (NEGATIVE); METHAMPHETAM NEGATIVE (NEGATIVE); Methadone NEGATIVE (NEGATIVE); Opiates NEGATIVE (NEGATIVE); Phencyclidine NEGATIVE (NEGATIVE); THC Cannibis NEGATIVE (NEGATIVE)
[2021-10-07 10:01] LABS: Bilirubin Direct < 0.1 mg/dL (0-0.2)
--- NOTE | 2021-10-07 11:06 | ER ---
Nurse's Notes [facility] Name: Srini Simpson Age: 36 yrs Sex: Male : 1985 Arrival Date: 10/07/2021 Time: 08:31 Bed 7 Private MD: Jovanni Luke H Diagnosis: Dizziness and giddiness;Nausea with vomiting, unspecified;Hypertensive heart disease without heart failure Presentation: 10/07 08:35 Chief complaint: Patient states: he was evaluated here a few days ago for abdominal ap3 pain, nausea and vomiting. patient reports that now the pain has subsided, however now he is nauseous and dizzy. Patient also reports feeling like he is "in a fog" and has a mild headache. Coronavirus screen: At this time, the client does not indicate any symptoms associated with coronavirus-19. Ebola Screen: No symptoms or risks identified at this time. Initial Sepsis Screen: Does the patient meet any 2 criteria? No. Patient's initial sepsis screen is negative. Does the patient have a suspected source of infection? No. Patient's initial sepsis screen is negative. Risk Assessment: Do you want to hurt yourself or someone else? Patient reports no desire to harm self or others. Onset of symptoms was October 04, 2021. 08:35 Method Of Arrival: Ambulatory ap3 08:35 Acuity: CHRISTINE 3 ap3 Triage Assessment: 08:38 General: Appears in no apparent distress. Behavior is calm, cooperative, appropriate ap3 for age, Reports chills for fatigue for. Pain: Denies pain. Neuro: Level of Consciousness is awake, alert, obeys commands, Oriented to person, place, time, situation, Appropriate for age Gait is steady, Speech is normal. Neuro: Reports dizziness, headache. Cardiovascular: Patient's skin is warm and dry. Respiratory: Airway is patent Respiratory effort is even, unlabored. GI: Reports nausea, vomiting. Historical: - Allergies: 08:37 No Known Allergies; ap3 - Home Meds: 09:31 Klonopin 1 mg Oral tab every 6 hours [Active]; lisinopril 10 mg Oral tab 1 tab once ph daily [Active]; metoprolol tartrate 50 mg Oral tab 1 tab 2 times per day [Active]; - PMHx: 08:37 Anxiety; Depression; ETOH/drug abuse; Hypertension; Pyloric Stenosis; ap3 - Immunization history:: Client reports receiving the 2nd dose of the Covid vaccine. - Social history:: Smoking status: Patient reports the use of cigarette tobacco products, smokes one-half pack cigarettes per day, Patient uses alcohol, occasionally. Screenin:39 Abuse screen: Denies threats or abuse. Nutritional screening: No deficits noted. ap3 Tuberculosis screening: No symptoms or risk factors identified. 08:49 Fall Risk None identified. ph Assessment: 09:30 General: Appears in no apparent distress. Behavior is cooperative, appropriate for age, ph Reports "feeling anxious" states that he has been out of his anxiety medicine. Pain: Denies pain. Neuro: Level of Consciousness is awake, alert, obeys commands, Oriented to person, place, time, situation, Reports dizziness. Cardiovascular: Reports lightheadedness, palpitations, Rhythm is sinus rhythm. Respiratory: Airway is patent Respiratory effort is even, unlabored. GI: Reports nausea, Patient currently denies abdominal pain. Derm: Skin is intact, Skin is pink, warm \\T\\ dry. 10:25 Reassessment: Patient appears in no apparent distress at this time. Patient and/or jl7 family updated on plan of care and expected duration. Pain level reassessed. Patient is alert, oriented x 3, equal unlabored respirations, skin warm/dry/pink. Pt ambulated with steady gate approximately 25 ft Patient denies pain at this time. Patient states feeling better. 10:25 GI: Abdomen is non-distended. jl7 Vital Signs: 08:35 BP 151 / 104; Pulse 79; Resp 17; Temp 98.4; Pulse Ox 98% ; Weight 102.06 kg; Height 5 ap3 ft. 7 in. (170.18 cm); 09:29 BP 120 / 74; Pulse 84; Resp 18; Pulse Ox 98% on R/A; ph 10:25 BP 126 / 84; Pulse 65; Resp 15; Pulse Ox 97% ; Pain 0/10; jl7 08:35 Body Mass Index 35.24 (102.06 kg, 170.18 cm) ap3 Vitals: 09:29 Cardiac Rhythm Assessment Sinus rhythm. ph ED Course: 08:31 Patient arrived in ED. mr 08:31 Jovanni Luke DO is Private Physician. mr 08:32 Jeevan Diaz PA is PHCP. cp 08:32 Alexx Soliman DO is Attending Physician. cp 08:37 Triage completed. ap3 08:39 Arm band placed on right wrist. ap3 08:40 Mahesh Ng RN is Primary Nurse. jl7 08:49 Patient has correct armband on for positive identification. Placed in gown. Bed in low ph position. Call light in reach. 09:00 Client placed on continuous cardiac and pulse oximetry monitoring. NIBP monitoring jl7 applied. 09:04 EKG done, by ED staff. tp1 09:10 Inserted saline lock: 20 gauge in right forearm, using aseptic technique. ph 09:10 Initial lab(s) drawn, by me, sent to lab. jl7 09:18 CT Head Brain wo Cont In Process Unspecified. EDMS 09:23 XRAY Chest (1 view) In Process Unspecified. EDMS 11:04 Jovanni Luke DO is Referral Physician. cp 11:15 No provider procedures requiring assistance completed. IV discontinued, intact, iw bleeding controlled, No redness/swelling at site. Pressure dressing applied. Administered Medications: 09:27 Drug: Meclizine 25 mg Route: PO; ph 10:52 Follow up: Response: No adverse reaction; Marked relief of symptoms jl7 09:28 Drug: Lisinopril 10 mg Route: PO; ph 10:52 Follow up: Response: No adverse reaction; Blood pressure is lowered jl7 09:28 Drug: NS 0.9% 1000 ml Route: IV; Rate: 1 bolus; Site: left forearm; ph 10:52 Follow up: Response: No adverse reaction; IV Status: Completed infusion; IV Intake: jl7 1000ml Medication: 08:39 VIS not applicable for this client. ap3 Intake: 10:52 IV: 1000ml; Total: 1000ml. jl7 Outcome: 11:05 Discharge ordered by MD. cp 11:15 Discharged to home ambulatory. iw 11:15 Condition: good 11:15 Discharge instructions given to patient, Instructed on discharge instructions, follow up and referral plans. medication usage, Demonstrated understanding of instructions, follow-up care, medications, Prescriptions given X 4. 11:15 Patient left the ED. iw Signatures: Dispatcher [employer] [facility] Gloria Ryan Irene, RN RN Rosie Bradshaw RN RN Emily, SHAN Chew cp, Jahala, RN RN jl7 Kriss Lee RN RN ap3 Claudine Abarca
--- NOTE | 2021-10-07 11:06 | EDPHYS ---
Physician Documentation [facility] Name: Srini Simpson Age: 36 yrs Sex: Male : 1985 Arrival Date: 10/07/2021 Time: 08:31 Bed 7 Private MD: Jovanni Luke H ED Physician Alexx Soliman HPI: 10/07 08:53 This 36 yrs old Male presents to ER via Ambulatory with complaints of Dizziness, cp Vomiting, Nausea. 08:53 The patient presents with dizziness, lightheadedness, a sense of confusion. cp 08:53 Onset: The symptoms/episode began/occurred yesterday. cp 08:53 Associated signs and symptoms: Pertinent positives: nausea, vomiting, Pertinent cp negatives: abdominal pain, chest pain, focal weakness. Patient's baseline: Neuro: alert and fully oriented, Motor: no deficits, Ambulation: walks without assistance, Speech: normal. 08:55 Patient reports recently running out of prescribed medications for hypertension and cp anxiety. Historical: - Allergies: 08:37 No Known Allergies; ap3 - Home Meds: 09:31 Klonopin 1 mg Oral tab every 6 hours [Active]; lisinopril 10 mg Oral tab 1 tab once ph daily [Active]; metoprolol tartrate 50 mg Oral tab 1 tab 2 times per day [Active]; - PMHx: 08:37 Anxiety; Depression; ETOH/drug abuse; Hypertension; Pyloric Stenosis; ap3 - Immunization history:: Client reports receiving the 2nd dose of the Covid vaccine. - Social history:: Smoking status: Patient reports the use of cigarette tobacco products, smokes one-half pack cigarettes per day, Patient uses alcohol, occasionally. ROS: 08:55 Constitutional: Negative for body aches, chills, fever, poor PO intake. cp 08:55 Eyes: Negative for injury, pain, redness, and discharge. cp 08:55 Cardiovascular: Negative for chest pain, edema, palpitations. 08:55 Respiratory: Negative for cough, shortness of breath, wheezing. 08:55 Abdomen/GI: Positive for nausea and vomiting, Negative for diarrhea, constipation, black/tarry stool, rectal bleeding. Exam: 09:04 ECG was reviewed by the Attending Physician. cp 09:05 Constitutional: The patient appears in no acute distress, alert, awake, cp non-diaphoretic, non-toxic, well developed, well nourished. 09:05 Head/Face: Normocephalic, atraumatic. cp 09:05 Eyes: Periorbital structures: appear normal, Pupils: equal, round, and reactive to light and accomodation, Extraocular movements: intact throughout, Conjunctiva: normal, no exudate, no injection, Sclera: no appreciated abnormality, Lids and lashes: appear normal, bilaterally. 09:05 ENT: External ear(s): are unremarkable, Ear canal(s): are normal, TM's: dullness, bilaterally, Nose: is normal, Mouth: Lips: moist, Oral mucosa: moist, Posterior pharynx: Airway: no evidence of obstruction, patent. 09:05 Neck: ROM/movement: is normal, is supple, without pain, no range of motions limitations. 09:05 Chest/axilla: Inspection: normal, Palpation: is normal, no crepitus, no tenderness. 09:05 Cardiovascular: Rate: normal, Rhythm: regular, Edema: is not appreciated, JVD: is not appreciated. 09:05 Respiratory: the patient does not display signs of respiratory distress, Respirations: cp normal, no use of accessory muscles, no retractions, labored breathing, is not present, Breath sounds: are clear throughout, no decreased breath sounds, no stridor, no wheezing. 09:05 Abdomen/GI: Inspection: abdomen appears normal, Bowel sounds: active, all quadrants, cp Palpation: abdomen is soft and non-tender, in all quadrants. 09:05 Neuro: Orientation: to person, place \T\ time. Mentation: is normal, Cerebellar function: Romberg testing is negative, normal finger to nose testing, heel to cast testing is normal, Motor: moves all fours, strength is normal, Sensation: is normal, Gait: is steady, at a normal pace, without difficulty. Vital Signs: 08:35 BP 151 / 104; Pulse 79; Resp 17; Temp 98.4; Pulse Ox 98% ; Weight 102.06 kg; Height 5 ap3 ft. 7 in. (170.18 cm); 09:29 BP 120 / 74; Pulse 84; Resp 18; Pulse Ox 98% on R/A; ph 10:25 BP 126 / 84; Pulse 65; Resp 15; Pulse Ox 97% ; Pain 0/10; jl7 08:35 Body Mass Index 35.24 (102.06 kg, 170.18 cm) ap3 MDM: 08:49 Patient medically screened. cp 08:49 ED course: 36-year-old male with past medical history of anxiety, depression, ms3 alcohol/drug abuse, hypertension, pyloric stenosis presents for dizziness and head fog that began yesterday. On exam patient is alert and oriented x4, in no apparent distress, nontoxic appearing. Heart rate and rhythm are regular without murmurs rubs or gallops. Lungs clear to auscultation bilaterally. Abdomen nontender to palpation with bowel sounds present in all 4 quadrants. Neurologic exam cranial nerves II through XII grossly intact, steady gait, finger-nose intact. Discussed case with SHAN Moseley, and agree with plan.. 09:00 Differential diagnosis: cardiac arrhythmia, hypovolemia, idiopathic dizziness, TIA, cp vertigo. 11:00 Data reviewed: vital signs, nurses notes, lab test result(s), EKG, radiologic studies, cp CT scan, plain films. 11:00 Test interpretation: by ED physician or midlevel provider: ECG, plain radiologic cp studies. 11:05 Counseling: I had a detailed discussion with the patient and/or guardian regarding: the cp historical points, exam findings, and any diagnostic results supporting the discharge/admit diagnosis, the presence of at least one elevated blood pressure reading (>120/80) during this emergency department visit, lab results, the need for outpatient follow up, a family practitioner, to return to the emergency department if symptoms worsen or persist or if there are any questions or concerns that arise at home. 11:05 Response to treatment: the patient's symptoms have markedly improved after treatment, cp patient is well hydrated. VSS. Patient observed to be resting comfortably in exam room. Will discharge to home for continued monitoring. 10/07 08:51 Order name: Basic Metabolic Panel; Complete Time: 10:03 cp 10/07 10:03 Interpretation: Normal except: GLUC 108. 10/07 08:51 Order name: CBC with Diff; Complete Time: 09:34 cp 10/07 09:34 Interpretation: Normal except: MN% 12.7; EOSINOPHIL % 6.9. 10/07 08:51 Order name: LFT's; Complete Time: 10:03 10/07 08:51 Order name: Magnesium; Complete Time: 10:03 cp 10/07 08:51 Order name: Troponin HS; Complete Time: 10:03 cp 10/07 08:59 Order name: UDS; Complete Time: 10:03 cp 10/07 08:51 Order name: XRAY Chest (1 view); Complete Time: 09:34 cp 10/07 09:34 Interpretation: Report review. cp 10/07 08:59 Order name: ETOH Level; Complete Time: 09:35 cp 10/07 09:35 Interpretation: Reviewed. cp 10/07 08:59 Order name: Lipase; Complete Time: 09:34 cp 10/07 08:59 Order name: CT Head Brain wo Cont; Complete Time: 09:34 cp 10/07 09:19 Order name: Urine Dipstick-Ancillary; Complete Time: 09:34 EDMS 10/07 08:51 Order name: EKG; Complete Time: 08:52 cp 10/07 08:51 Order name: Cardiac monitoring; Complete Time: 09:07 cp 10/07 08:51 Order name: EKG - Nurse/Tech; Complete Time: 09:04 cp 10/07 08:51 Order name: IV Saline Lock; Complete Time: 09:07 cp 10/07 08:51 Order name: Labs collected and sent; Complete Time: 09:07 cp 10/07 08:51 Order name: O2 Per Protocol; Complete Time: 09:07 cp 10/07 08:51 Order name: O2 Sat Monitoring; Complete Time: 09:07 cp 30 10:50 Order name: PO challenge; Complete Time: 10:59 cp EC:04 Rate is 72 beats/min. Rhythm is regular. PA interval is normal. QRS interval is normal. cp QT interval is normal. T waves are Inverted in lead aVR. Interpreted by me. Reviewed by me. Administered Medications: 09:27 Drug: Meclizine 25 mg Route: PO; ph 10:52 Follow up: Response: No adverse reaction; Marked relief of symptoms jl7 :28 Drug: Lisinopril 10 mg Route: PO; ph 10:52 Follow up: Response: No adverse reaction; Blood pressure is lowered jl7 : Drug: NS 0.9% 1000 ml Route: IV; Rate: 1 bolus; Site: left forearm; ph 10:52 Follow up: Response: No adverse reaction; IV Status: Completed infusion; IV Intake: jl7 1000ml Disposition: 17:34 Co-signature as Attending Physician, Alexx Soliman DO I reviewed the patient's care ms3 provided by the Advanced Practice Provider and agree with the diagnosis and care plan. I personally saw the patient and performed a substantive portion of the visit, including all aspects of the History/Exam/Medical Decision making. Please see my note within the JEANNE note for my [id number] evaluation.. Disposition Summary: 10/07/21 11:05 Discharge Ordered Location: Home cp Problem: new cp Symptoms: have improved cp Condition: Stable cp Diagnosis - Dizziness and giddiness cp - Nausea with vomiting, unspecified cp - Hypertensive heart disease without heart failure cp Followup: cp - With: Jovanni Luke DO - When: 1 - 2 days - Reason: Recheck today's complaints Discharge Instructions: - Discharge Summary Sheet cp - Dizziness cp - Hypertension, Adult cp - Nausea and Vomiting, Adult cp - Form - Blood Pressure Record Sheet cp Forms: - Medication Reconciliation Form cp - Thank You Letter cp - Antibiotic Education cp - Prescription Opioid Use cp Prescriptions: - Meclizine 25 mg Oral Tablet - take 1 tablet by ORAL route every 8 hours As needed; 30 tablet; Refills: 0, cp Product Selection Permitted - Zofran 4 mg Oral Tablet - take 1 tablet by ORAL route every 12 hours As needed; 20 tablet; Refills: 0, cp Product Selection Permitted - Lisinopril 10 mg Oral Tablet - take 1 tablet by ORAL route once daily; 20 tablet; Refills: 0, Product cp Selection Permitted - Metoprolol Tartrate 50 mg Oral Tablet - take 1 tablet by ORAL route 2 times per day take with meal; 30 tablet; Refills: cp 0, Product Selection Permitted Signatures: Dispatcher [employer] Rosie Rodriguez RN RN ph Page, Corey, PA PA cp Prokisch, Amanda, RN RN ap3 Sims, Marcus, DO DO ms3 Mahesh Ng RN jl7
[2021-10-07 11:23] VITALS: TEMP 98.4
[2021-10-07 11:30] VITALS: BP 126/84; O2SAT 97
--- NOTE | 2021-10-08 12:19 | EKG ---
Test Date: 2021-10-07 Test Time: 08:55:32 Cloth Tearer: [place] MEASUREMENT RESULTS: Intervals: Rate: 72 CT: 130 QRSD: 88 QT: 386 QTc: 422 [place]: P: 56 CT: 130 QRS: 82 T: 40 INTERPRETIVE STATEMENTS: Normal sinus rhythm Normal ECG Compared to ECG 06/01/2021 15:40:26 Sinus tachycardia no longer present Electronically Signed On 10-08-21 12:16:45 CDT by Austin Martinez
== END 2021-10-07 11:15 | disposition home or self-care (01) ==
LOC: ER 08:29
DX: I11.9 Hypertensive heart disease without heart failure (principal); R11.2 Nausea with vomiting, unspecified; F17.210 Nicotine dependence, cigarettes, uncomplicated; I10 Essential (primary) hypertension; F32.A Depression, unspecified; F41.9 Anxiety disorder, unspecified
CPT/HCPCS: 36415; 70450; 71045; 80048; 80076; 80307; 80320; 81003; 83690; 83735; 84484; 85025; 93005; 96360; 99284; J7030; J8597

== ENCOUNTER 2021-11-27 06:43 | Emergency (ER) | payer SELFPAY ==
[2021-11-27] MEDS ORDERED: ONDANSETRON 4 MG/2 ML VIAL ONE (07:29)
[2021-11-27] MEDS ORDERED: NA CHLORIDE 0.9% 1,000 ML ONE (07:29)
[2021-11-27 07:37] LABS: Absolute Lymphocytes (CBC) 1.7 K/uL (0.7-4.9); Hematocrit 42.4 % (39.6-49.0); Lymphocytes % 19.2 % (15.3-44.8); MCV 88.5 fL (80-100); MPV 7.8 fL (7.6-11.3)
[2021-11-27 07:57] LABS: Albumin 3.7 g/dL (3.4-5.0); Bilirubin Total 0.2 mg/dL (0.2-1.0); Potassium 3.7 mmol/L (3.5-5.1); Protein, Total 7.7 g/dL (6.4-8.2)
[2021-11-27] MEDS ORDERED: LORazepam 2 MG/ML VIAL ONE (08:21)
--- NOTE | 2021-11-27 08:37 | EDPHYS ---
Physician Documentation [facility] Name: Srini Simpson Age: 36 yrs Sex: Male : 1985 Arrival Date: 11/27/2021 Time: 06:47 Bed 15 Private MD: ED Physician Alexx Soliman HPI: 11/27 08:41 This 36 yrs old Male presents to ER via Ambulatory with complaints of Dizziness, ms3 Headache, Nausea/Vomiting/Diarrhea. 08:42 The patient presents to the emergency department with nausea, vomiting, diarrhea. ms3 Onset: The symptoms/episode began/occurred yesterday. Possible causes: Heat exposure. The symptoms are aggravated by nothing. The symptoms are alleviated by nothing. Associated signs and symptoms: Pertinent positives: Dizziness. Severity of symptoms: At their worst the symptoms were Pain is currently a 5 / 10. Historical: - Allergies: 07:07 No Known Allergies; vg1 - Home Meds: 07:07 Klonopin 1 mg Oral tab every 6 hours [Active]; lisinopril 10 mg Oral tab 1 tab once vg1 daily [Active]; metoprolol tartrate 50 mg Oral tab 1 tab 2 times per day [Active]; - PMHx: 07:07 Anxiety; Depression; ETOH/drug abuse; Hypertension; Pyloric Stenosis; vg1 - PSHx: 07:07 None; vg1 - Immunization history:: Client reports receiving the 2nd dose of the Covid vaccine. - Social history:: Smoking status: Reported history of juuling and/or vaping. ROS: 08:42 Neck: Negative for injury, pain, and swelling, Cardiovascular: Negative for chest pain, ms3 and palpitations. Respiratory: Negative for shortness of breath, cough, wheezing, and pleuritic chest pain, MS/Extremity: Negative for injury and deformity, Skin: Negative for injury, rash, and discoloration. 08:42 Constitutional: Positive for body aches. 08:42 Abdomen/GI: Positive for nausea, vomiting, and diarrhea. 08:42 All other systems are negative. ms3 Exam: 08:42 Constitutional: This is a well developed, well nourished patient who is awake, alert, ms3 and in no acute distress. Head/Face: Normocephalic, atraumatic. Neck: Trachea midline, no cervical lymphadenopathy. Supple, full range of motion without nuchal rigidity, or vertebral point tenderness. No Meningismus. Chest/axilla: Normal chest wall appearance and motion. Nontender with no deformity. Cardiovascular: Regular rate and rhythm with a normal S1 and S2. No gallops, murmurs, or rubs. Normal PMI, no JVD. No pulse deficits. Respiratory: Lungs have equal breath sounds bilaterally, clear to auscultation and percussion. No rales, rhonchi or wheezes noted. No increased work of breathing, no retractions or nasal flaring. Abdomen/GI: Soft, non-tender, with normal bowel sounds. No distension or tympany. No guarding or rebound. No evidence of tenderness throughout. Skin: Warm, dry with normal turgor. Normal color with no rashes, no lesions, and no evidence of cellulitis. Psych: Awake, alert, with orientation to person, place and time. Behavior, mood, and affect are within normal limits. Vital Signs: 07:06 BP 141 / 100; Pulse 95; Resp 16; Temp 99.4(O); Pulse Ox 97% on R/A; Weight 104.33 kg; vg1 Height 5 ft. 7 in. (170.18 cm); Pain 0/10; 08:07 BP 128 / 83; Pulse 103; Resp 19; Pulse Ox 99% on R/A; vg1 07:06 Body Mass Index 36.02 (104.33 kg, 170.18 cm) vg1 MDM: 07:20 Patient medically screened. ms3 08:42 Differential diagnosis: Nonspecific abd pain, pancreatitis, viral gastroenteritis, ms3 gastroenteritis, COVID. Data reviewed: vital signs, nurses notes, lab test result(s), and as a result, I will discharge patient. ED course: While in the ED patient learned that his 17 year old son in his sleep. Discussed labs with patient. Patient stating that he needs to go home at this time. Patient is a/o x4, nad, non-toxic, ambulatory in ED, speaking full sentences.. 11/27 07:10 Order name: CBC with Diff; Complete Time: 08:34 vg1 11/27 07:10 Order name: CMP; Complete Time: 08:34 1 11/27 07:10 Order name: Lipase; Complete Time: 08:34 1 11/27 07:19 Order name: SARS-COV-2 RT PCR (Document "Date of Onset" if Symptomatic) vg1 11/27 07:45 Order name: Creatine Phosphokinase; Complete Time: 08:34 EDMS 11/27 07:10 Order name: IV Saline Lock; Complete Time: 07:27 vg1 11/27 07:10 Order name: Labs collected and sent; Complete Time: : vg1 Administered Medications: 07:21 Drug: NS 0.9% 1000 ml Route: IV; Rate: 1 bolus; Site: right wrist; vg1 08:45 Follow up: IV Status: Completed infusion; IV Intake: 1000ml vg1 07:22 Drug: Zofran (Ondansetron) 4 mg Route: IVP; Site: right wrist; vg1 08:45 Follow up: Response: No adverse reaction; Marked relief of symptoms vg1 08:18 Drug: Ativan (LORazepam) 0.5 mg Route: IVP; Site: right wrist; tp1 08:45 Follow up: Response: No adverse reaction; Marked relief of symptoms vg1 Disposition Summary: 11/27/21 08:37 Discharge Ordered Location: Home ms3 Condition: Stable ms3 Diagnosis - Nausea with vomiting, unspecified ms3 - Headache ms3 Followup: ms3 - With: Michel Linton DO - When: 2 - 3 days - Reason: Re-evaluation by your physician Discharge Instructions: - Discharge Summary Sheet ms3 - General Headache Without Cause ms3 - Nausea and Vomiting, Adult, [id number] ms3 Forms: - Medication Reconciliation Form ms3 - Thank You Letter ms3 - Antibiotic Education ms3 - Prescription Opioid Use ms3 Signatures: Dispatcher [employer] EDMS Serenity Lopez, RN RN vg1 Alexx Soliman DO DO ms3 Claudine Abarca, RN RN tp1 Corrections: (The following items were deleted from the chart) 07:45 07:31 CREATINE PHOSPHOKINASE+[id number].BRZ ordered. [facility] EDDC
--- NOTE | 2021-11-27 08:37 | ER ---
Nurse's Notes [facility] Name: Srini Simpson Age: 36 yrs Sex: Male : 1985 Arrival Date: 11/27/2021 Time: 06:47 Bed 15 Private MD: Diagnosis: Nausea with vomiting, unspecified;Headache Presentation: 11/27 07:06 Chief complaint: Patient states: NVD and dizziness since last night; denies ABD pain. vg1 Coronavirus screen: Vaccine status: Patient reports receiving the 2nd dose of the covid vaccine. Client denies travel out of the [place] in the last 14 days. Ebola Screen: Patient denies exposure to infectious person. Patient denies travel to an Ebola-affected area in the 21 days before illness onset. Initial Sepsis Screen: Does the patient meet any 2 criteria? No. Patient's initial sepsis screen is negative. Does the patient have a suspected source of infection? No. Patient's initial sepsis screen is negative. Risk Assessment: Do you want to hurt yourself or someone else? Patient reports no desire to harm self or others. Onset of symptoms was November 26, 2021. 07:06 Method Of Arrival: Ambulatory [facility] 07:06 Acuity: CHRISTINE 3 vg1 Triage Assessment: 07:07 Headache History: The patient has had previous headaches and this one is similar to vg1 previous episodes. General: Appears in no apparent distress. uncomfortable, Behavior is calm, cooperative. Pain: Denies pain. EENT: No signs and/or symptoms were reported regarding the EENT system. Neuro: Level of Consciousness is awake, alert, obeys commands, Oriented to person, place, time, situation. Cardiovascular: Patient's skin is warm and dry. Respiratory: Airway is patent Respiratory effort is even, unlabored. GI: Abdomen is round non-distended, Abd is soft and non tender X 4 quads. Reports diarrhea, nausea, vomiting, since last night. : No signs and/or symptoms were reported regarding the genitourinary system. Derm: Skin is intact, is healthy with good turgor. Musculoskeletal: Circulation, motion, and sensation intact. Historical: - Allergies: 07:07 No Known Allergies; vg1 - Home Meds: 07:07 Klonopin 1 mg Oral tab every 6 hours [Active]; lisinopril 10 mg Oral tab 1 tab once vg1 daily [Active]; metoprolol tartrate 50 mg Oral tab 1 tab 2 times per day [Active]; - PMHx: 07:07 Anxiety; Depression; ETOH/drug abuse; Hypertension; Pyloric Stenosis; vg1 - PSHx: 07:07 None; vg1 - Immunization history:: Client reports receiving the 2nd dose of the Covid vaccine. - Social history:: Smoking status: Reported history of juuling and/or vaping. Screenin:09 Abuse screen: Denies threats or abuse. Nutritional screening: No deficits noted. vg1 Tuberculosis screening: No symptoms or risk factors identified. Fall Risk No fall in past 12 months (0 pts). No secondary diagnosis (0 pts). IV access (20 points). Ambulatory Aid- None/Bed Rest/Nurse Assist (0 pts). Gait- Normal/Bed Rest/Wheelchair (0 pts) Mental Status- Oriented to own ability (0 pts). Total Martinez Fall Scale indicates No Risk (0-24 pts). Assessment: 07:09 Reassessment: SEE TRIAGE. vg1 07:10 Pain: Denies pain. vg1 08:00 Reassessment: Pt stated was just notified that child has ; appears to be vg1 crying and upset; provider notified. 08:07 Reassessment: received VO from DR Soliman to administer 0.5 mg of Ativan IV x1. vg1 08:21 Reassessment: No changes from previously documented assessment. Patient and/or family tp1 updated on plan of care and expected duration. Pain level reassessed. Patient is alert, oriented x 3, equal unlabored respirations, skin warm/dry/pink. 08:44 Reassessment: pt left before signing d/c paper. vg1 Vital Signs: 07:06 BP 141 / 100; Pulse 95; Resp 16; Temp 99.4(O); Pulse Ox 97% on R/A; Weight 104.33 kg; vg1 Height 5 ft. 7 in. (170.18 cm); Pain 0/10; 08:07 BP 128 / 83; Pulse 103; Resp 19; Pulse Ox 99% on R/A; vg1 07:06 Body Mass Index 36.02 (104.33 kg, 170.18 cm) vg1 ED Course: 06:47 Patient arrived in ED. ja2 06:59 Serenity Lopez, RN is Primary Nurse. vg1 07:04 Alexx Soliman DO is Attending Physician. ms3 07:07 Triage completed. vg1 07:07 Arm band placed on. vg1 07:09 Patient has correct armband on for positive identification. Bed in low position. Call vg1 light in reach. Side rails up X 1. 07:09 No provider procedures requiring assistance completed. vg1 07:20 Inserted saline lock: 20 gauge in right wrist, using aseptic technique. Blood collected.tp1 07:29 Initial lab(s) drawn, Repeat lab(s) drawn. sent to lab. COVID swab sent to lab. tp1 08:35 Michel Linton DO is Referral Physician. ms3 08:44 IV discontinued, intact, bleeding controlled, No redness/swelling at site. Pressure vg1 dressing applied. Administered Medications: 07:21 Drug: NS 0.9% 1000 ml Route: IV; Rate: 1 bolus; Site: right wrist; vg1 08:45 Follow up: IV Status: Completed infusion; IV Intake: 1000ml vg1 07:22 Drug: Zofran (Ondansetron) 4 mg Route: IVP; Site: right wrist; vg1 08:45 Follow up: Response: No adverse reaction; Marked relief of symptoms vg1 08:18 Drug: Ativan (LORazepam) 0.5 mg Route: IVP; Site: right wrist; tp1 08:45 Follow up: Response: No adverse reaction; Marked relief of symptoms vg1 Medication: 07:10 VIS not applicable for this client. vg1 Intake: 08:45 IV: 1000ml; Total: 1000ml. vg1 Outcome: 08:37 Discharge ordered by . ms3 08:44 Discharged to home ambulatory. vg1 08:44 Condition: good 08:44 Discharge instructions given to patient, Instructed on discharge instructions, follow up and referral plans. Demonstrated understanding of instructions, follow-up care. 08:45 Patient left the ED. vg1 Signatures: Serenity Lopez, ALTON RN vg1 Alexx Soliman DO DO ms3 Bennett Janine ja2 Claudine Abarca RN RN tp1
[2021-11-27 08:53] VITALS: TEMP 99.4
[2021-11-27 08:55] VITALS: BP 128/83; O2SAT 99
--- OUTSIDE RECORDS SUMMARY | 2021-11-28 15:17 | XMS REPORT | Continuity of Care Document ---
:1985 Author Organization Formerly [facility] t Address [address] [place] [address] Care Team Providers Name Role Phone PRADEEP BOWERS Primary Care Physician Unavailable Deion SEYMOUR Attending Clinician Unavailable Deion Seymour DO Attending Clinician LIBRA Attending Clinician Unavailable Kem Herrera Attending Clinician Libra BELTRÁN Attending Clinician Ray SHERIDAN Attending Clinician Unavailable Ray Sheridan MD Attending Clinician BELGICA Attending Clinician Unavailable Belgica NOYOLA Attending Clinician KRISTINA Attending Clinician Unavailable Singer LAW Attending Clinician Kristina BELTRÁN Attending Clinician PHUONG Attending Clinician Unavailable Ezio Trinidad NP Attending Clinician Phuong LAW Attending Clinician Vikram COBOS S Attending Clinician LOWELL Attending Clinician Unavailable KERON ZALDIVAR Attending Clinician Unavailable Deborah ALVAREZ Attending Clinician Unavailable SHABBIR Attending Clinician Unavailable Shabbir BELTRÁN Attending Clinician Doctor Unassigned, Name Attending Clinician Unavailable Margarita Marroquin Attending Clinician John BELTRÁN Attending Clinician Jeff Attending Clinician Joseph Fontanez MD Attending Clinician Lexy Thomas MD Attending Clinician Clinic, Neurology Continuity Attending Clinician UnavailLindsey DAVENPORT Attending Clinician Alejandro Attending Clinician Unavailable JEREMIAH Attending Clinician Unavailable Jeremiah DAVENPORT Attending Clinician Joseph GARCIA Attending Clinician Unavailable LIBRA Admitting Clinician Unavailable Libra BELTRÁN Admitting Clinician KRISTINA Admitting Clinician Unavailable Kristina BELTRÁN Admitting Clinician PHUONG Admitting Clinician Unavailable Phuong LAW Admitting Clinician SHAN PUENTE Admitting Clinician Unavailable SHABBIR Admitting Clinician Unavailable JOHN Admitting Clinician Unavailable John BELTRÁN Admitting Clinician Deion SEYMOUR Admitting Clinician Unavailable ASHLIE Admitting Clinician Unavailable JEREMIAH Admitting Clinician Unavailable Joseph GARCIA Admitting Clinician Unavailable Payers Payer Name Policy Type Policy Number Effective Date Expiration Date S [facility] [id number] 1600-06-13 NURSING HOME 00:00:00 Problems Condition Condition Condition Status Onset Resolution Last Treating Co mments Source Name Details Category Date Date Treatment Clinician Date GEREMIAS (acute GEREMIAS (acute Disease Active U nivers kidney kidney 7-12 ity of injury) injury) 00:00: [place] [address] [place] [address] Branch CULLEN CULLEN Disease Active Univers (dyspnea (dyspnea 4-28 ity of on on 00:00: [place] exertion) exertion) 00 Medi kofi Branch Dyslipidem Dyslipidem Disease Active U nivers ia ia 3-29 ity of 00:00: [place] [facility] Branch Anxiety Anxiety Disease Active 2020-05 Univers 2-26 ity of 00:00: [address] Branch Cigarette Cigarette Disease Active 2020-05 Uni vers smoker smoker 2-26 ity of 00:00: [address] Branch Elevated Elevated Disease Active 2020-05 Unive rs brain brain 2-26 ity of natriureti natriureti [place] c peptide c peptide 00 [facility] (BNP) (BNP) Branch level level Withdrawal Withdrawal Disease Active U nivers symptoms, symptoms, 6-16 ity of alcohol, alcohol, 00:00: [place] uncomplica uncomplica 00 Me dical luis luis Branch Obesity Obesity Disease Active Univers (BMI (BMI 6-16 ity of 30-39.9) 30-39.9) 00:00: [address] Alcohol Alcohol Disease Active Methodi dependence dependence [address] [facility] with with 00:00: [facility] uncomplica uncomplica 00 l luis luis withdrawal withdrawal Suicide Suicide Disease Active Methodi attempt by attempt by -20 st alcohol alcohol 00:00: Hospita poisoning poisoning [...] 7- it y of on on 00:00: [place] [facility] Branch Family Family Disease Active Univers history of history of 7 it [place] of early CAD early CAD [place] [facility] Family Family Disease Active Univers history of history of 7- it [place] of early CAD early CAD [place] [facility] Chest pain Chest pain Disease Active U nivers 7- ity of 00:00: [place] [facility] Chest pain Chest pain Disease Active 2016-[address] [facility] [address] Chest Chest Disease Active 2015-[address] [facility] pain, pain, 2-21 [facility] unspecifie unspecifie 00:00: Me dical d type d type 00 Center Allergies, Adverse Reactions, Alerts Allergy Allergy Status Severity Reaction(s) Onset Inactive Treating Comm ents Source Name Type Date Date Clinician NO KNOWN Allergy Active [facility] ALLERGIE S NO KNOWN Drug Active Univers ALLERGIE Class ity of S [facility] Family History Family Member Diagnosis Comments Start Date Stop Date Source Natural father [facility] Maternal aunt [facility]aternal uncle Alcohol abuse Methodi [facility] [place] Maternal uncle Depression [facility] Maternal [facility]s [facility] [place] Paternal grandfather Heart attack [facility] Social History Social Habit Start Date Stop Date Quantity Comments Source History of tobacco Cigarette Smoker University of use [facility] Branch History SDOH University o f Alcohol Frequency [facility] History SDOH University o f Alcohol Std Drinks [facility] Branch History [facility] University o f Alcohol Comment [facility] ical Branch Exposure to 2021-11-11 2021-11-21 Not sure University of SARS-CoV-2 (event) 00:00:00 06:51:00 [facility] Alcohol intake 2021-11-21 2021-11-21 Current drinker Unive rsity of 00:00:00 00:00:00 of alcohol [facility] (finding) Branch Cigarettes smoked 2021-09-05 2021-09-05 Univers ity of current (pack per 00:00:00 00:00:00 [facility]) - Reported Branch Tobacco use and 2021-09-05 2021-09-05 User of Universit y of exposure 00:00:00 00:00:00 smokeless [facility] tobacco Branch Tobacco Comment 2021-09-05 2021-09-05 vapes Universit y of 00:00:00 00:00:00 [facility] Branch Education 2021-05-05 2021-05-05 13 University of 00:00:00 00:00:00 [facility] Cigarette 2020-01-28 2020-01-28 [facility] pack-years 00:00:00 00:00:00 Hospital History SDOH 2018-11-09 2018-11-09 5 University o f Alcohol Binge 00:00:00 00:00:00 [facility] Branch Sex [birth year] Universit y of 00:00:00 00:00:00 [facility] Smoking Status Start Date Stop Date Source Smokes tobacco daily 2021-09-05 00:00:00 Univers ity of [facility] Medications Ordered Filled Start Stop Current Ordering Indication Dosage Frequency Signature Comments Components Source Medication Medication Date Date Medication? Clinician (SIG) Name Name ketorolac No 30mg 30 mg, Unive rs tromethamin 11-21 Slow IV ity of e (TORADOL) 14:15: 14:15 [place] injection 00 :00 ONCE, 1 Medical 30 mg dose, On Branch [facility] 11/21/21 at 0915, TITA metoclopram No 10mg 10 mg, Uni vers lenora HCl 11-21 Slow IV ity of (REGLAN) 13:15: 13:19 Push, [place] injection 00 :00 ONCE, 1 Medical 10 mg dose, On Branch [facility] 11/21/21 at 0815, TITA NaCl 0.9% No 2000mL at 999 Uni vers (NS) bolus 11-21 mL/hr, ity of infusion 13:15: 14:59 2,000 mL, [place] as 2,000 mL 00 :00 IV Medical Infusion, Branch ONCE, 1 dose, On [place] 11/21/21 at 0815, TITA ondansetron 2021- No 4mg 4 mg, Slow Univers (ZOFRAN 11-21 IV Push, ity of (PF)) 12:15: 12:28 ONCE, 1 [place] injection 4 00 :00 dose, On Medi kofi mg [facility] 11/21/21 at 0715, TITA ondansetron 0 Yes [id number] 4mg Take 1 Univers 4 mg -14 tablet by ity of disintegrat 00:00: mouth [place] ing tablet 00 every 8 Medica l (eight) Branch hours as needed for Nausea and Vomiting (N/V). magnesium 2021- No 2g 2 g, IV Univ ers sulfate in 11-19 Piggyback, it y of water 2 23:30: 23:32 Administer [place] as gram/50 mL 00 :00 over 60 Medica l (4 %) Minutes, Branch infusion 2 ONCE, 1 g dose, On [facility] 11/19/21 at 1830, Routine metoprolol 2021- No 50mg 50 mg, Univ ers tartrate 11-19 Oral, ONCE ity of (LOPRESSOR) 23:30: 22:40 NOW, 1 [place] as tablet 50 00 :00 dose, On Medica l mg [facility] 11/19/21 at 1830, Routine LORazepam 2021- No 1mg 1 mg, Univer s (ATIVAN) 11-19 Oral, ity of tablet 1 mg 22:30: 22:40 ONCE, 1 [place] 00 :[place] dose, On Medical [facility] 11/19/21 at 1730, TITA NaCl 0.9% 2021- No 2000mL at 999 Uni vers (NS) bolus 11-19 mL/hr, ity of infusion 22:15: 23:05 2,000 mL, [place] as 2,000 mL 00 :00 IV Medical Infusion, Branch ONCE, 1 dose, On [facility] 11/19/21 at 1715, TITA ondansetron 2021- No 4mg 4 mg, Slow Univers (ZOFRAN 11-19 IV Push, ity of (PF)) 21:15: 21:22 ONCE, 1 [place] injection 4 00 :00 dose, On Medi kofi mg [facility] 11/19/21 at 1615, TITA LORazepam 0 2021- Yes 1mg 1 mg, Univer s (ATIVAN) 10-0831 Oral, ity of tablet 1 mg 04:30: 16:29 ONCE, 1 [place] 00 :[place] dose, On Medical [facility] Branch 10/07/21 at 2330, TITA clonazePAM 2021-0 Yes [id number] 2mg Take 1 Univers (KLONOPIN) 5-30 tablet by ity of 2 mg tablet 00:00: mouth 2 [place] as 00 (two) Medical times Branch daily. clonazePAM 2-0 Yes [id number] 2mg Take 1 Univers (KLONOPIN) 5-30 tablet by ity of 2 mg tablet 00:00: mouth 2 [place] as 00 (two) Medical times Branch daily. clonazePAM 2022-0 Yes [id number] 2mg Take 1 Univers (KLONOPIN) 5-30 tablet by ity of 2 mg tablet 00:00: mouth 2 [place] as 00 (two) Medical times [place] daily. ketorolac 2021- No 15mg 15 mg, Unive rs (TORADOL) 09-30 Slow IV ity of injection 03:45: 02:46 Push, [place] 15 mg 00 :00 ONCE, 1 Medical dose, On Branch [place] 09/29/21 at 2245, Routine ondansetron 2021- No 4mg 4 mg, Slow Univers (ZOFRAN 09-30 IV Push, ity of (PF)) 02:30: 01:55 ONCE, 1 [place] injection 4 00 :00 dose, On Medi kofi mg [facility] 09/29/21 at 2130, TITA acetaminoph No 650mg 650 mg, U nivers en 09-30 Oral, ity of (TYLENOL) 02:30: 01:55 ONCE, 1 [place] tablet 650 00 :00 dose, On Medic al mg [facility] 09/29/21 at 2130, TITA NaCl 0.9% No 1000mL at 999 Uni vers (NS) bolus 09-30 mL/hr, ity of infusion 02:30: 03:12 1,000 mL, [place] as 1,000 mL 00 :00 IV Medical Infusion, Branch ONCE, 1 dose, On [place] 09/29/21 at 2130, TITA metoprolol Yes 50mg Take 50 mg U nivers tartrate 50 5-06 by mouth 2 it y of mg tablet 19:45: (two) [place] 15 times Medical daily. Branch metoprolol 0 Yes 50mg Take 50 mg U nivers tartrate 50 5-06 by mouth 2 it y of mg tablet 19:45: (two) [place] 15 times Medical daily. Branch metoprolol 0 Yes 50mg Take 50 mg U nivers tartrate 50 5-06 by mouth 2 it y of mg tablet 19:45: (two) [place] 15 times Medical daily. Branch metoprolol 0 Yes 50mg Take 50 mg U nivers tartrate 50 5-06 by mouth 2 it y of mg tablet 19:45: (two) [place] 15 times Medical daily. Branch metoprolol Yes 50mg Take 50 mg U nivers tartrate 50 09-13 by mouth 2 it y of mg tablet 19:45: (two) [place] 15 times Medical daily. Branch nitroglycer 2021- No .8mg 0.8 mg, Un jaqueline in 09-13 Sublingual ity of (NITROSTAT) 17:45: 16:55 , ONCE, 1 [place] sublingual 00 :00 dose, On Medic al [...] No 75mg 75 mg, Univ ers tartrate 09-13- Oral, ity of (LOPRESSOR) 14:00: 12:56 ONCE, 1 [place] tablet 75 00 :00 dose, On Medica l mg Thu09/13/21 Branch at 0900, Routine metoprolol 2021- No 75mg 75 mg, Univ ers tartrate 09-12- Oral, Q6H, ity of (LOPRESSOR) 23:00: 11:16 3 doses, [place] tablet 75 00 :00 First dose Medi kofi mg on [place] Branch 09/12/21 at 1800, Last dose on Thu09/13/21 at 0600, Routine iopamidol 2021- No [id number] 81mL 81 mL, U nivers (ISOVUE 09-12- Intravenou ity o f 370-500 mL) 22:00: 17:41 s, ONCE, 1 [place] injection 00 :00 dose, On Medica l 81 mL [facility] 09/12/21 Branch at 1700, Routine metoprolol 2021- No 5mg 5 mg, Unive rs (LOPRESSOR) 09-12-05 Intravenou i ty of injection 5 18:30: 17:26 s, ONCE, 1 [place] mg 00 :00 dose, On [facility] 09/12/21 Branch at 1330, Routine metoprolol 2021- No 5mg 5 mg, Unive rs (LOPRESSOR) 09-12-05 Intravenou i ty of injection 5 17:00: 16:09 s, ONCE, 1 [place] mg 00 :00 dose, On [facility] 09/12/21 Branch at 1200, Routine acetaminoph Yes 650mg 650 mg, Un jaqueline en 05 Oral, ity of (TYLENOL) 16:06: Q6HPRN, [place] tablet 650 52 Starting Medic al mg on [place] Branch 09/12/21 at 1106, Until Discontinu ed, Routine, Pain (scale 1-3) morpHINE 2021- No 4mg 4 mg, Slow Un jaqueline injection 4 09-12-05 IV Push, ity of mg 14:04: 14:04 ONCE, 1 [place] 00 :00 dose, On Medical [facility] 09/12/21 Branch at 0915, STAT ondansetron 2021- No 4mg 4 mg, Slow Univers (ZOFRAN 09-12-05 IV Push, ity of (PF)) 14:03: 14:04 ONCE, 1 [place] injection 4 00 :00 dose, On Medi kofi mg [facility] 09/12/21 Branch at 0915, TITA aspirin 81 2021- Yes [id number] 81mg Take 1 Univers mg chewable 4-30 05-31 tablet by it y of tablet 00:00: 04:59 mouth [place] 00 :00 daily for Medical 30 days. Branch aspirin 81 2021- Yes [id number] 81mg Take 1 Univers mg chewable 4-30 05-31 tablet by it y of tablet 00:00: 04:59 mouth [place] 00 :00 daily for Medical 30 days. Branch aspirin 81 2021- Yes [id number] 81mg Take 1 Univers mg chewable 09-07-31 tablet by it y of tablet 00:00: 04:59 mouth [place] 00 :00 daily for Medical 30 days. [place] aspirin 81 2021- Yes [id number] 81mg Take 1 Univers mg chewable -07 10-31 tablet by it y of tablet 00:00: 04:59 mouth [place] 00 :00 daily for Medical 30 days. [place] metoprolol Yes 50mg Take 50 mg U nivers tartrate 50 -29 by mouth 2 it y of mg tablet 16:01: (two) [place] 23 times Medical daily. [place] aspirin Yes 81mg 81 mg, Univers chewable - Oral, ity of tablet 81 14:00: DAILY, [place] mg 00 First dose Medical on Thu [place] 09/06/21 at 0900, Until Discontinu ed, Routine lisinopriL 2021- No 5mg Take 5 mg U nivers 5 mg tablet 09-06 by mouth 2 i ty of 09:21: 00:00 (two) [place] 02 :00 times Medical daily. [place] atorvastati Yes 40mg 40 mg, Univ ers n (LIPITOR) 4-29 Oral, QHS, it y of tablet 40 02:00: First dose [place] mg 00 on [facility] Medical 09/05/21 at [place] 2099, Until Discontinu ed, Routine metoprolol Yes 50mg 50 mg, Unive rs tartrate 4-29 Oral, BID, ity o f (LOPRESSOR) 01:00: First dose [place] tablet 50 00 on [facility] Medical mg 09/05/21 at [place] 1999, Until Discontinu ed, Routine lisinopriL Yes 5mg 5 mg, Univer s (PRINIVIL,Z 4-29 Oral, BID, it y of ESTRIL) 01:00: First [place] tablet 5 mg 00 on [place] Medica l 09/05/21 at [place] 1999, Until Discontinu ed, Routine furosemide 2021- Yes [id number] 20mg Take 1 Univers 20 mg - 05-30 tablet by ity of tablet 00:00: 04:59 mouth [place] 00 :00 daily for Medical 30 days. [place] furosemide 2021- Yes [id number] 20mg Take 1 Univers 20 mg 09-06-30 tablet by ity of tablet 00:00: 04:59 mouth [place] 00 :00 daily for Medical 30 days. Branch furosemide 2021- Yes [id number] 20mg Take 1 Univers 20 mg 09-06 05-30 tablet by ity of tablet 00:00: 04:59 mouth [place] 00 :00 daily for Medical 30 days. Branch furosemide Yes 20mg 20 mg, Unive rs (LASIX) 09-05 Slow IV ity of injection 22:00: Push, [place] 20 mg 00 Q12H, Medical First dose Branch on [place] 09/05/21 at 1700, Until Discontinu ed, Routine enoxaparin Yes 40mg 40 mg, Unive rs (LOVENOX) 09-05 Subcutaneo ity of injection 22:00: us, DAILY, [place] 40 mg 00 First dose Medical on [facility] Branch 09/05/21 at 1700, Until Discontinu ed, Routine clonazePAM Yes 2mg 2 mg, Univer s (KLONOPIN) 09-05 Oral, ity of tablet 2 mg 21:47: BIDPRN, [place] as 20 Starting Medical on [place] Branch 09/05/21 at 1647, Until Discontinu ed, Routine, anxiety sulfur 2021- No [id number] 5mL 5 mL, Unive rs hexafluorid 09-05 Intravenou i ty of e microsphr 20:15: 20:15 s, ONCE, 1 [place] (LUMASON) 00 :00 dose, On Medica l injection 5 [place] Branch mL 09/05/21 at 1515, Routine
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 Restricted medication : SHERLY FOWLER nitroglycer Yes .4mg 0.4 mg, Uni vers [...] 09-05 Oral, ity of (TYLENOL) 17:35: Q6HPRN, [place] tablet 650 22 Starting Medic al mg on [facility] Branch 09/05/21 at 1235, Until Discontinu ed, Routine, Pain (scale 1-3) nitroglycer 2021- No .4mg 0.4 mg, Un jaqueline in 09-05 Sublingual ity of (NITROSTAT) 16:30: 15:42 , ONCE, 1 [place] sublingual 00 :00 dose, On Medic al tablet 0.4 [facility] mg 09/05/21 at 1130, TITA aspirin 2021- No 324mg 324 mg, Unive rs chewable 09-05 Oral, ity of tablet 324 16:30: 15:42 ONCE, 1 [place] mg 00 :00 dose, On Medical [facility] 09/05/21 at 1130, Routine atorvastati Yes 40mg 40 mg, Univ ers n (LIPITOR) 3- Oral, QHS, it y of tablet 40 02:00: First dose [place] mg 00 on Thu Medical 08/07/21 at Branch 2100, Until Discontinu ed, Routine lisinopriL Yes 5mg Take 5 mg Un jaqueline 5 mg tablet 3-30 by mouth 2 it y of 12:53: (two) [place] 52 times Medical daily. Branch metoprolol Yes 50mg Take 50 mg U nivers tartrate 50 3-30 by mouth 2 it y of mg tablet 12:53: (two) [place] 52 times Medical daily. Branch magnesium 2021- No 400mg 400 mg, Uni vers oxide 08-07-03 Oral, BID, ity of (MAG-OX 01:00: 00:59 8 doses, [place] 400) tablet 00 :00 First dose Me dical 400 mg on Thu Branch 08/06/21 at 2000, Last dose on Thu08/10/21 at 0800, Routine atorvastati 2021- No [id number] 40mg Take 1 Univers n 40 mg 30 -30 tablet by ity of tablet 00:00: 04:59 mouth at [place] 00 :00 bedtime Medical for 30 Branch days. atorvastati 2021- No [id number] 40mg Take 1 Univers n 40 mg 3-30 -30 tablet by ity of tablet 00:00: 04:59 mouth at [place] 00 :00 bedtime Medical for 30 Branch days. butalbital- Yes 1{tbl} 1 tablet, Univers acetaminoph 08-06 Oral, ity of en-caff 21:36: Q6HPRN, [place] (ESGIC) 42 Starting Medical 50-325-40 on Thu Branch mg tablet 1 08/06/21 at tablet 1636, Until Discontinu ed, Routine, Headache sulfur 2021- No [id number] 5mL 5 mL, Unive rs hexafluorid 08-06 Intravenou i ty of e microsphr 21:00: 21:00 s, ONCE, 1 [place] (LUMASON) 00 :00 dose, On Medica l injection 5 e Branch mL 08/06/21 at 1600, Routine
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 Restricted medication : MALCOLMALDENGABRIELLE magnesium 2021- No 2g 2 g, IV Univ ers sulfate in 08-06 Piggyback, it y of water 2 15:15: 17:03 Administer [place] as gram/50 mL 00 :00 over 60 Medica l (4 %) Minutes, Branch infusion 2 ONCE, 1 g dose, On 08/06/21 at 1015, Routine iopamidol 2021- No [id number] 100mL 100 mL, Univers (ISOVUE 08-06 Intravenou ity o f 370-500 mL) 14:20: 14:45 s, ONCE, 1 [place] injection 00 :00 dose, On Medica l 100 mL Tue Branch 08/06/21 at 0945, Routine furosemide 2021- No 40mg 40 mg, IV U nivers (LASIX) 08-06 Push, ity of injection 14:00: 22:02 DAILY, [place] 40 mg 00 :41 First dose Medical (after Branch last modificati on) on Thu08/06/21 at 0900, Until Discontinu ed, Routine ondansetron 2021-0 Yes 4mg 4 mg, Slow Univers (ZOFRAN 08-06 IV Push, ity of (PF)) 11:56: Q6HPRN, [place] injection 4 15 Nausea and Me dical mg Vomiting Branch (N/V), Starting on Thu08/06/21 at 0656
Do ses of ondansetro n 16 mg and above need to be administer ed via IV piggyback. For Dose >=24mg ECG monitoring is advisable.
melatonin 2021-0 Yes 6mg 6 mg, Univers (MELATIN) 08-06 Oral, ity of tablet 6 mg 02:21: QHSPRN, [place] 40 Starting Medical on Thu08/05/21 at 2121, Until Discontinu ed, Routine, Insomnia clonazePAM 2021-0 Yes 1mg 1 mg, Univer s (KLONOPIN) 08-06 Oral, BID, ity of tablet 1 mg 01:00: First dose [place] 00 (after Medical last Branch modificati on) on Thu08/05/21 at 2000, Until Discontinu ed metoprolol 2021-0 Yes 50mg 50 mg, Unive rs tartrate 08-05 Oral, BID, ity o f (LOPRESSOR) 23:00: First dose [place] tablet 50 00 (after Medical mg last Branch modificati on) on Thu08/05/21 at 1800, Until Discontinu ed, Routine lisinopriL 2021-0 Yes 5mg 5 mg, Univer s (PRINIVIL,Z 08-05 Oral, BID, it y of ESTRIL) 23:00: First dose [place] tablet 5 mg 00 (after Medica l last Branch modificati on) on Thu08/05/21 at 1800, Until Discontinu ed, Routine enoxaparin 2021-0 Yes 40mg 40 mg, Unive rs (LOVENOX) 08-05 Subcutaneo ity of injection 22:00: [place], DAILY, [place] 40 mg 00 First dose Medical on Thu08/05/21 at 1700, Until Discontinu ed, Routine LORazepam 2021-0 2022- No .5mg 0.5 mg, Univ ers (ATIVAN) 08-05 Oral, ity of tablet 0.5 20:45: 19:54 ONCE, 1 [place] mg 00 :00 dose, On Medical [facility] Branch 08/05/21 at 1545, TITA nicotine Yes 1{patch 1 Patch, Un jaqueline (NICODERM) 08-05 } Topical, ity o f 7 mg/24 hr 20:15: Administer [place] patch 1 00 over 24 Medical Patch Hours, Branch Q24H, First dose on [facility] 08/05/21 at 1515, Until Discontinu ed, Routine furosemide 2021- No 40mg 40 mg, IV U nivers (LASIX) 08-05 Push, ity of injection 19:30: 18:59 ONCE, 1 [place] 40 mg 00 :00 dose, On Medical [facility] Branch 08/05/21 at 1430, TITA HYDROcodone 2021- No 1{tbl} 1 tablet, Univers -acetaminop 08-05 Oral, ity of hen (NORCO 18:59: 18:58 Q6HPRN, [place] 5) 5-325 mg 00 :00 Starting Medi kofi tablet 1 on [facility] Branch tablet 08/05/21 at 1359, Until 08/07/21 at 1358, Routine, Pain (scale 4-6) acetaminoph Yes 650mg 650 mg, Un jaqueline en 08-05 Oral, ity of (TYLENOL) 18:58: Q6HPRN, [place] tablet 650 56 Starting Medic al mg on [facility] Branch 08/05/21 at 1358, Until Discontinu ed, Routine, Pain (scale 1-3) lisinopriL 2021- No 5mg Take 5 mg U nivers 5 mg tablet 08-05 by mouth 2 i ty of 17:32: 00:00 (two) [place] 25 :00 times Medical daily. Branch Last dose given in ED aspirin 2021- No 325mg 325 mg, Unive rs tablet 325 08-05 Oral, ity of mg 17:00: 18:01 ONCE, 1 [place] 00 :00 dose, On [facility] Branch 08/05/21 at 1200, STAT LORazepam 2021- No 2mg 2 mg, Univer s (ATIVAN) -06-05 Oral, ity of tablet 2 mg 16:30: 15:22 ONCE, 1 [place] 00 :00 dose, On Medical Wed Branch 06/05/21 at 1030, TITA lisinopriL Yes 5mg Take 5 mg Un jaqueline 5 mg tablet 26 by mouth 2 it y of 09:13: (two) [place] 22 times Medical daily. Branch Last dose given in ED hydroCHLORO Yes [id number] 25mg Take 1 Univers thiazide 25 1-17 tablet by ity of mg tablet 00:00: mouth [place] 00 every Medical morning. Branch hydroCHLORO Yes [id number] 25mg Take 1 Univers thiazide 25 1-17 tablet by ity of mg tablet 00:00: mouth [place] 00 every Medical morning. Branch hydroCHLORO 2021- No [id number] 25mg Take 1 Univers thiazide 25 1-17 03-28 tablet by it y of mg tablet 00:00: 00:00 mouth [place] 00 :00 every Medical morning. Branch lisinopriL 2020-05 Yes [...] First dose [place] mg 00 on [facility] 05/05/21 Branch at 2100, Until Discontinu ed, Routine aspirin 81 2020-05- No [id number] 81mg Take 1 Univers mg chewable 2-27 - tablet by it y of tablet 00:00: 05:59 mouth [place] 00 :00 daily with Medical breakfast Branch for 30 days. aspirin 81 2020-05- No [id number] 81mg Take 1 Univers mg chewable 2-27 - tablet by it y of tablet 00:00: 05:59 mouth [place] 00 :00 daily with Medical breakfast Branch for 30 days. aspirin 81 2020-05- No [id number] 81mg Take 1 Univers mg chewable 07-07 tablet by it y of tablet 00:00: 05:59 mouth [place] 00 :00 daily with Medical breakfast Branch for 30 days. aspirin 81 2020-05- No [id number] 81mg Take 1 Univers mg chewable 07-07 tablet by it y of tablet 00:00: 05:59 mouth [place] 00 :00 daily with Medical breakfast Branch for 30 days. enoxaparin 2020-05 Yes 30mg 30 mg, Unive rs (LOVENOX) 07-06 Subcutaneo ity of injection 23:00: [place], DAILY, [place] 30 mg 00 First dose Medical on [facility] 05/05/21 at 1700, Until Discontinu ed, Routine magnesium 2020-05 No 4g 4 g, IV Univ ers sulfate in 07-06 Piggyback, it y of water 4 16:00: 15:35 ONCE, 1 [place] gram/50 mL 00 :00 dose, On Medic al (8 %) IV [facility] Piggyback 4 05/05/21 g at 1000, Routine pantoprazol 2020-05 Yes 40mg 40 mg, Univ ers e 07-06 Oral, ity of (PROTONIX) 15:00: DAILY, [place] EC tablet 00 First dose Medi kofi 40 mg on [facility] 05/05/21 at 0900, Until Discontinu ed, Routine aspirin 2020-05 Yes 81mg 81 mg, Univers chewable 07-06 Oral, QAM ity of tablet 81 14:00: WITH [place] mg 00 BREAKFAST, Medical First dose Branch on [place] 05/05/21 at 0800, Until Discontinu ed, Routine lisinopriL 2020-05 Yes 10mg 10 mg, Unive rs (PRINIVIL,Z 07-06 Oral, BID, it y of ESTRIL) 14:00: First dose [place] tablet 10 00 (after Medical mg last Branch modificati on) on [place] 05/05/21 at 0800, Until Discontinu ed, Routine metoprolol 2020-05 Yes 50mg 50 mg, Unive rs tartrate 07-06 Oral, BID, ity o f (LOPRESSOR) 14:00: First dose [place] tablet 50 00 on [place] [facility] mg 05/05/21 Branch at 0800, Until Discontinu ed, Routine docusate 2020-05 Yes 100mg 100 mg, Unive rs (COLACE) 07-06 Oral, BID, ity o f capsule 100 14:00: First dose [place] mg 00 on [place] [facility] 05/05/21 Branch at 0800, Until Discontinu [...] BIDPRN, [place] as 22 Starting Medical on [facility] 05/05/21 at 0628, Until Discontinu ed, anxiety, insomnia ondansetron 2020-05 Yes 4mg 4 mg, Slow Univers (ZOFRAN 07-06 IV Push, ity of (PF)) 08:29: Q6HPRN, [place] injection 4 21 Starting Medi kofi mg on [facility] 05/05/21 at 0229, Until Discontinu ed, Routine, Nausea and Vomiting (N/V) lisinopriL 2020-05- No 10mg 10 mg, Univ ers (PRINIVIL,Z 07-06 Oral, ity of ESTRIL) 07:00: 05:55 ONCE, 1 [place] tablet 10 00 :00 dose, On Medica l mg [facility] 05/05/21 at 0100, Routine ketorolac 2020-05- No [...] mg 00 :00 dose, On Medical Sat [place] 05/04/21 at 2045, STAT atorvastati 2020-05- No [id number] 20mg Take 1 Univers n 20 mg 2-26 -16 tablet by ity of tablet 00:00: 05:59 mouth at [place] 00 :00 bedtime Medical for 20 Branch days. FENTanyl PF 2020-05- No 50ug 50 mcg, Un jaqueline (SUBLIMAZE 05-31 Intramuscu it y of (PF)) 15:45: 14:44 lar, ONCE, [place] injection 00 :00 1 dose, On Medi kofi 50 mcg Sun Branch 03/31/21 at 0945, Routine moxifloxaci 2020-05- No [id number] 400mg Take 1 Univers n 400 mg 0-11 -22 tablet by ity o f tablet 00:00: 04:59 mouth [place] 00 :00 daily for Medical 10 days. Branch chlorphenir Yes [id number] 4mg Take 1 [facility] amine 4 mg 9-16 tablet by ity of tablet 00:00: mouth [place] 00 every 6 Medical (six) Branch hours as needed for Allergies or Runny nose. calcium/mag Yes [id number] 1{each} Take 1 [facility] nesium/zinc 9-16 Each by ity o f (CALCIUM-MA 00:00: mouth [place] GNESUIUM-ZI 00 daily. Medica l [place]) Branch 333-133-5 mg Tab benzonatate Yes [id number] 100mg Take 1 [facility] 100 mg 9-16 capsule by ity of capsule 00:00: mouth 3 [place] 00 (three) Medical times Branch daily as needed for Cough. ondansetron Yes [id number] 4mg Take 1 [facility] 4 mg 9-16 tablet by ity of disintegrat 00:00: mouth [place] ing tablet 00 every 8 Medica l (eight) Branch hours as needed for Nausea and Vomiting (N/V). chlorphenir Yes [id number] 4mg Take 1 [facility] amine 4 mg 9-16 tablet by ity of tablet 00:00: mouth [place] 00 every 6 Medical (six) Branch hours as needed for Allergies or Runny nose. calcium/mag Yes [id number] 1{each} Take 1 [facility] nesium/zinc 9-16 Each by ity o f (CALCIUM-MA 00:00: mouth [place] GNESUIUM-ZI 00 daily. Medica l [place]) Branch 333-133-5 mg Tab benzonatate 1-0 Yes [id number] 100mg Take 1 [facility] 100 mg 9-16 capsule by ity of capsule 00:00: mouth 3 [place] 00 (three) Medical times Branch daily as needed for Cough. ondansetron 2020-0 Yes [id number] 4mg Take 1 [facility] 4 mg 9-16 tablet by ity of disintegrat 00:00: mouth [place] ing tablet 00 every 8 Medica l (eight) Branch hours as needed for Nausea and Vomiting (N/V). chlorphenir 1-0 Yes [id number] 4mg Take 1 [facility] amine 4 mg 9-16 tablet by ity of tablet 00:00: mouth [place] 00 every 6 Medical (six) Branch hours as needed for Allergies or Runny nose. calcium/mag 1-0 Yes [id number] 1{each} Take 1 [facility] nesium/zinc 9-16 Each by ity o f (CALCIUM-MA 00:00: mouth [place] GNESUIUM-ZI 00 daily. Medica [facility]) Branch 333-133-5 mg Tab benzonatate 2020-0 Yes [id number] 100mg Take 1 Univers 100 mg 9-16 capsule by ity of capsule 00:00: mouth 3 [place] 00 (three) Medical times Branch daily as needed for Cough. ondansetron 2020-0 Yes [id number] 4mg Take 1 [facility] 4 mg 9-16 tablet by ity of disintegrat 00:00: mouth [place] ing tablet 00 every 8 Medica l (eight) Branch hours as needed for Nausea and Vomiting (N/V). chlorphenir 1-0 Yes [id number] 4mg Take 1 [facility] amine 4 mg 9-16 tablet by ity of tablet 00:00: mouth [place] 00 every 6 Medical (six) Branch hours as needed for Allergies or Runny nose. calcium/mag 2021-0 Yes [id number] 1{each} Take 1 [facility] nesium/zinc 9-16 Each by ity o f (CALCIUM-MA 00:00: mouth [place] GNESUIUM-ZI 00 daily. Medica l [place]) Branch 333-133-5 mg Tab benzonatate 2021-0 Yes [id number] 100mg Take 1 [facility] 100 mg 9-16 capsule by ity of capsule 00:00: mouth 3 [place] 00 (three) Medical times Branch daily as needed for Cough. ondansetron 0 Yes [id number] 4mg Take 1 [facility] 4 mg 9-16 tablet by ity of disintegrat 00:00: mouth [place] ing tablet 00 every 8 Medica l (eight) Branch hours as needed for Nausea and Vomiting (N/V). azithromyci 2020-0 Yes [id number] 250mg Take 1 Univers n 9-16 tablet by ity of (ZITHROMAX 00:00: mouth [place] Z-REFUGIO) 250 00 SEE-INSTRU Med ical mg tablet CTIONS. Branch Take 500 mg day 1, then 250 mg days 2 to 5. chlorphenir 2020-0 Yes [id number] 4mg Take 1 [facility] amine 4 mg 9-16 tablet by ity of tablet 00:00: mouth [place] 00 every 6 Medical (six) Branch hours as needed for Allergies or Runny nose. calcium/mag 2020-0 Yes [id number] 1{each} Take 1 [facility] nesium/zinc 9-16 Each by ity o f (CALCIUM-MA 00:00: mouth [place] GNESUIUM-ZI 00 daily. Medica l [place]) Branch 333-133-5 mg Tab benzonatate 0 Yes [id number] 100mg Take 1 [facility] 100 mg 9-16 capsule by ity of capsule 00:00: mouth 3 [place] 00 (three) Medical times Branch daily as needed for Cough. ondansetron 0 Yes [id number] 4mg Take 1 [facility] 4 mg 9-16 tablet by ity of disintegrat 00:00: mouth [place] ing tablet 00 every 8 Medica l (eight) Branch hours as needed for Nausea and Vomiting (N/V). azithromyci 2020-0 Yes [id number] 250mg Take 1 Univers n 9-16 tablet by ity of (ZITHROMAX 00:00: mouth [place] Z-REFUGIO) 250 00 SEE-INSTRU Med ical mg tablet CTIONS. Branch Take 500 mg day 1, then 250 mg days 2 to 5. chlorphenir 2020-0 Yes [id number] 4mg Take 1 [facility] amine 4 mg 9-16 tablet by ity of tablet 00:00: mouth [place] 00 every 6 Medical (six) Branch hours as needed for Allergies or Runny nose. calcium/mag 2020-0 Yes [id number] 1{each} Take 1 [facility] nesium/zinc 9-16 Each by ity o f (CALCIUM-MA 00:00: mouth [place] GNESUIUM-ZI 00 daily. Medica l [place]) Branch 333-133-5 mg Tab benzonatate 2020-0 Yes [id number] 100mg Take 1 [facility] 100 mg 9-16 capsule by ity of capsule 00:00: mouth 3 [place] 00 (three) Medical times Branch daily as needed for Cough. ondansetron 2020-0 Yes [id number] 4mg Take 1 [facility] 4 mg 9-16 tablet by ity of disintegrat 00:00: mouth [place] ing tablet 00 every 8 Medica l (eight) Branch hours as needed for Nausea and Vomiting (N/V). chlorphenir 2020-0 Yes [id number] 4mg Take 1 [facility] amine 4 mg 9-16 tablet by ity of tablet 00:00: mouth [place] 00 every 6 Medical (six) Branch hours as needed for Allergies or Runny nose. calcium/mag 2020-0 Yes [id number] 1{each} Take 1 [facility] nesium/zinc 9-16 Each by ity o f (CALCIUM-MA 00:00: mouth [place] GNESUIUM-ZI 00 daily. Medica l [place]) Branch 333-133-5 mg Tab benzonatate 2020-0 Yes [id number] 100mg Take 1 [facility] 100 mg 9-16 capsule by ity of capsule 00:00: mouth 3 [place] 00 (three) Medical times Branch daily as needed for Cough. ondansetron 2020-0 Yes [id number] 4mg Take 1 [facility] 4 mg 9-16 tablet by ity of disintegrat 00:00: mouth [place] ing tablet 00 every 8 Medica l (eight) Branch hours as needed for Nausea and Vomiting (N/V). chlorphenir 1-0 Yes [id number] 4mg Take 1 [facility] amine 4 mg 9-16 tablet by ity of tablet 00:00: mouth [place] 00 every 6 Medical (six) Branch hours as needed for Allergies or Runny nose. calcium/mag 2021-0 Yes [id number] 1{each} Take 1 [facility] nesium/zinc 9-16 Each by ity o f (CALCIUM-MA 00:00: mouth [place] GNESUIUM-ZI 00 daily. Medica l [place]) Branch 333-133-5 mg Tab benzonatate 2021-0 Yes [id number] 100mg Take 1 [facility] 100 mg 9-16 capsule by ity of capsule 00:00: mouth 3 [place] 00 (three) Medical times Branch daily as needed for Cough. ondansetron Yes [id number] 4mg Take 1 [facility] 4 mg 9-16 tablet by ity of disintegrat 00:00: mouth [place] ing tablet 00 every 8 Medica l (eight) Branch hours as needed for Nausea and Vomiting (N/V). chlorphenir 2021- No [id number] 4mg Take 1 [facility] amine 4 mg 9-16 -28 tablet by ity of tablet 00:00: 00:00 mouth [place] 00 :00 every 6 Medical (six) Branch hours as needed for Allergies or Runny nose. calcium/mag 2021- No [id number] 1{each} Take 1 [facility] nesium/zinc 9-16 -28 Each by ity of (CALCIUM-MA 00:00: 00:00 mouth [place] GNESUIUM-ZI 00 :00 daily. Medica l [place]) Branch 333-133-5 mg Tab benzonatate 2021- No [id number] 100mg Take 1 [facility] 100 mg 9-16 -28 capsule by ity of capsule 00:00: 00:00 mouth 3 [place] 00 :00 (three) Medical times Branch daily as needed for Cough. ondansetron 2021- No [id number] 4mg Take 1 [facility] 4 mg 9-16 -28 tablet by ity of disintegrat 00:00: 00:00 mouth [place] ing tablet 00 :00 every 8 Medica l (eight) Branch hours as needed for Nausea and Vomiting (N/V). vitamin 2020- No [id number] 1{tbl} Take 1 Univers D3-folic 9-16 10-17 tablet by ity o f acid 125 00:00: 04:59 mouth [place] mcg (5,000 00 :00 daily for Medi kofi unit)-1 mg 30 days. Branc h Tab vitamin 2020- No [id number] 1{tbl} Take 1 [facility] D3-folic 9-16 10-17 tablet by ity o f acid 125 00:00: 04:59 mouth [place] mcg (5,000 00 :00 daily for Medi kofi unit)-1 mg 30 days. Branc h Tab vitamin 2020- No [id number] 1{tbl} Take 1 [facility] D3-folic 9-16 10-17 tablet by ity o f acid 125 00:00: 04:59 mouth [place] mcg (5,000 00 :00 daily for Medi kofi unit)-1 mg 30 days. Bran h Tab azithromyci 2020- No [id number] 250mg Take 1 Univers n 9-16 10-11 [...] No 50mg Take 50 mg Univers succinate -20 06-20 by mouth 2 ity of XL (TOPROL 14:52: 00:00 (two) [place] XL) 25 mg 24 :00 times Medical 24 hr daily. Branch tablet diazePAM 2020- No 10mg Take 10 mg Un jaqueline (VALIUM) 10 20 06-20 by mouth 2 i ty of mg tablet 14:52: 00:00 ([facility]) [place] 24 :00 times Medical daily. [place] cyanocobala Yes 1000ug 1,000 mcg, Univers min [...] 6-18 Units, ity of (vitamin 21:00: Oral, [place] D3) tablet 00 DAILY, Medical 2,000 Units [...] [facility] Medi kofi (4 %) 10/25/20 at [place] infusion 2 1945, g Routine potassium 2020- No 10meq 10 mEq, IV Univers chloride in 10-26 Piggyback, i ty of water 10 00:00: 05:40 Q1H, 5 [place] mEq/100 mL 00 :00 doses, Medical RTU 10 mEq First dose Bra nch on [place] 10/25/20 at 1900, Last dose on [place] 10/25/20 at 2300, 100 mL diazePAM 2020- No 10mg 10 mg, Univer s (VALIUM) 10-25 Intravenou ity of injection 22:45: 21:59 s, ONCE, 1 [place] 10 mg 00 :00 dose, [facility] 10/25/20 at Branch 1745, TITA carvediloL Yes 12.5mg 12.5 mg, U nivers (COREG) 10-25 Oral, BID ity of tablet 12.5 22:00: MEALS, [place] mg 00 First dose Medical on [place] Branch 10/25/20 at 1700, Until Discontinu ed, Routine LORazepam 2020- No 2mg 2 mg, Slow U nivers (ATIVAN) 10-25 IV Push, ity of injection 2 18:00: 17:21 ONCE, 1 [place] mg 00 :00 dose, [facility] 10/25/20 at Branch 1300, Routine HYDROcodone Yes 1{tbl} 1 tablet, Univers -acetaminop 6-17 Oral, ity of hen (NORCO 16:49: Q6HPRN, [place] 5) 5-325 mg 43 Starting Medi kofi tablet 1 [facility] tablet 10/25/20 at 1149, Until Discontinu ed, Routine, Pain (scale 7-10) hydralAZINE 0 Yes 10mg 10 mg, Univ ers (APRESOLINE 10-25 Slow IV ity o f ) injection 16:48: Push, [place] 10 mg 34 Q6HPRN, Medical Starting Branch [facility] 10/25/20 at 1148, Until Discontinu ed, Routine, DBP=>100; SBP=>160, For SBP > 160
Ind ication: Hypertensi ve Emergency labetaloL 0 Yes 20mg 20 mg, Univer s (NORMODYNE) 10-25 Slow IV ity o f injection 14:58: Push, [place] 20 mg 25 Q6HPRN, Medical Starting Branch [facility] 10/25/20 at 0958, Until Discontinu ed, TITA, For SBP > 170 or DBP > 105 diazePAM 2020-0 2020- No 10mg 10 mg, Univer s (VALIUM) 10-2517 Intravenou ity of injection 14:30: 13:45 s, ONCE, 1 [place] 10 mg 00 :00 dose, [facility] Medical 10/25/20 at Branch 0930, STAT escitalopra 0 Yes 10mg 10 mg, Univ ers m oxalate 10-25 Oral, ity of (LEXAPRO) 14:00: DAILY, [place] tablet 10 00 First dose Medi kofi mg on [facility] Branch 10/25/20 at 0900, Until Discontinu ed, Routine pantoprazol 0 Yes 40mg 40 mg, Univ ers e 17 Oral, ity of (PROTONIX) 14:00: DAILY, [place] EC tablet 00 First dose Medi kofi 40 mg on [facility] Branch 10/25/20 at 0900, Until Discontinu ed, Routine acetaminoph 0 Yes 650mg 650 mg, Un jaqueline en 10-25 Oral, ity of (TYLENOL) 13:42: Q6HPRN, [place] tablet 650 14 Starting Medic al mg [facility] Branch 10/25/20 at 0842, Until Discontinu ed, Routine, Pain (scale 1-3), Temp > 38.5 C magnesium 2020- No 400mg 400 mg, Uni vers oxide 10-25 Oral, BID, ity of (MAG-OX 13:30: 12:59 8 doses, [place] 400) tablet 00 :00 First dose Me dical 400 mg on [facility] 10/25/20 at 0830, Last dose on Thu10/28/20 at 2000, Routine LORazepam 2020- No 1mg 1 mg, Slow U nivers (ATIVAN) 10-25 IV Push, ity of injection 1 05:30: 04:30 ONCE, 1 [place] mg 00 :00 dose, [facility] Medical 10/25/20 at Branch 0030, Routine HYDROcodone 2020- No 1{tbl} 1 tablet, Univers -acetaminop 10-24 Oral, ity of hen (NORCO 22:45: 22:14 ONCE, 1 [place] 5) 5-325 mg 00 :00 dose, Thu Med ical tablet 1 10/24/20 at [facility] h tablet 1745, Routine enoxaparin Yes 40mg 40 mg, Unive rs (LOVENOX) 10-24 Subcutaneo ity of injection 22:00: us, DAILY, [place] 40 mg 00 First dose Medical on Thu Branch 10/24/20 at 1700, Until Discontinu ed, Routine sulfur 2020- No [id number] 5mL 5 mL, Unive rs hexafluorid 10-24 Intravenou i ty of e microsphr 21:15: 21:15 s, ONCE, 1 [place] (LUMASON) 00 :00 dose, Thu Medic al injection 5 10/24/20 at Br anch mL 1615, Routine
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 Restricted medication : JASPREET [...] [place] 10 mg 00 :00 dose, [facility] 10/24/20 at Branch 1315, STAT diazePAM 2020- No 10mg 10 mg, Univer s (VALIUM) 10-24 Intravenou ity of injection 17:45: 17:10 s, ONCE, 1 [place] 10 mg 00 :00 dose, [facility] Medical 10/24/20 at Branch 1245, TITA metoprolol 2020- No 50mg 50 mg, Univ ers tartrate 10-24 Oral, BID, ity of (LOPRESSOR) 17:15: 16:49 First dose [place] tablet 50 00 :21 on [facility] Medical mg 10/24/20 at Branch 1215, Until Discontinu ed, Routine ondansetron Yes 4mg 4 mg, Unive rs (ZOFRAN-ODT 10-24 Oral, ity of ) 17:02: Q8HPRN, [place] disintegrat 20 Starting Medi kofi ing tablet [facility] 4 mg 10/24/20 at 1202, Until Discontinu ed, Routine, Nausea and Vomiting (N/V) LORazepam 2020- No 2mg 2 mg, Slow U nivers (ATIVAN) 10-24 IV Push, ity of injection 2 17:00: 16:01 ONCE, 1 [place] mg 00 :00 dose, [facility] 10/24/20 at Branch 1200, STAT labetaloL 2020- No 20mg 20 mg, Unive rs (NORMODYNE) 10-24 Slow IV ity of injection 17:00: 16:01 Push, [place] 20 mg 00 :00 ONCE, 1 Medical dose, [facility] 10/24/20 at 1200, TITA lactated 2020- No 30mL/kg at 999 Uni vers ringers IV 10-24 mL/hr, ity of infusion 16:45: 18:17 2,925 mL [place] 2,925 mL 00 :00 (30 mL/kg Medica l ?97.5 kg), Branch IV Infusion, ONCE, 1 dose, [facility] 10/24/20 at 1145, STAT glucagon 2020-0 Yes 1mg 1 mg, Univers (GLUCAGEN 10-24 Intramuscu ity of DIAGNOSTIC 16:43: lar, PRN, [place] KIT) 42 Starting Medical injection 1 [facility] 10/24/20 at 1143, Until Discontinu ed, TITA, Blood Glucose < or = 70 mg/dL and patient is unable to swallow or has mental changes. dextrose 50 2020-0 Yes 25mL 25 mL, Univ ers % in water 10-24 Slow IV ity of (D50W) 16:43: Push, PRN, [place] injection 42 Starting Medica l [address] [facility] 10/24/20 at 1143, Until Discontinu ed, TITA, Blood Glucose < or = 70 mg/dL and patient is unable to swallow or has mental status changes. LORazepam 2020- No 2mg 2 mg, Slow U nivers (ATIVAN) 10-24 IV Push, ity of injection 2 16:00: 15:04 ONCE, 1 [place] mg 00 :00 dose, [facility] 10/24/20 at Branch 1100, Routine diazePAM 2020-0 2020- No 10mg 10 mg, Univer s (VALIUM) 10-24 Intravenou ity of injection 16:00: 15:21 s, ONCE, 1 [place] 10 mg 00 :00 dose, [facility] 10/24/20 at Branch 1100, Routine LORazepam 2020-0 202- No 2mg 2 mg, Slow U nivers (ATIVAN) 10-24 IV Push, ity of injection 2 15:45: 14:34 ONCE, 1 [place] mg 00 :00 dose, [facility] 10/24/20 at Branch 1045, Routine LORazepam 0 2020- No 1mg 1 mg, Slow U nivers (ATIVAN) 10-24 IV Push, ity of injection 1 15:15: 14:11 ONCE, 1 [place] mg 00 :00 dose, [facility] 10/24/20 at Branch 1015, STAT ondansetron 2020-0 Yes 4mg 4 mg, Slow Univers (ZOFRAN 10-24 IV Push, ity of (PF)) 14:58: Q6HPRN, [place] injection 4 39 Starting Medi kofi mg Thu Branch 10/24/20 at 0958, Until Discontinu ed, Routine, Nausea and Vomiting (N/V) ondansetron 2020- No 4mg 4 mg, Slow Univers (ZOFRAN 10-24 IV Push, ity of (PF)) 14:15: 13:16 ONCE, 1 [place] injection 4 00 :00 dose, Thu Med ical mg 10/24/20 at Branch 0915, TITA foLIC acid Yes 1mg 1 mg, Univer s (FOLATE) 10-24 Oral, ity of tablet 1 mg 14:00: [...] mg 00 :00 ONCE, 1 Medical dose, [facility] 10/24/20 at 0845, TITA oxazepam No 15mg 15 mg, Univer s (SERAX) 10-24 Oral, ity of capsule 15 13:40: 20:57 Q4HPRN, [place] mg 38 :[address] [facility] 10/24/20 at 0840, Until Thu10/26/20 at 1557, Routine, Only while awake for DBP equal to or greater than 100, HR equal to or greater than 100. iopamidol 2020- No [id number] 100mL 100 mL, Univers (ISOVUE 10-24 Intravenou ity o f 370-500 mL) 13:00: 11:40 s, ONCE, 1 [place] injection 00 :00 dose, Thu Medic al 100 mL 10/24/20 at Branch 0800, Routine LORazepam No 1mg 1 mg, Slow U nivers (ATIVAN) 10-24 IV Push, ity of injection 1 13:00: 11:54 ONCE, 1 [place] mg 00 :00 dose, [facility] Medical 10/24/20 at Branch 0800, STAT NaCl 0.9% No 1000mL at 999 Uni vers (NS) bolus 10-24 mL/hr, ity of infusion 11:30: 11:27 1,000 mL, [place] 1,000 mL 00 :00 IV Medical Infusion, [place] ONCE, 1 dose, [facility] 10/24/20 at 0630, STAT metoprolol 2020- No 5mg 5 mg, Slow Univers (LOPRESSOR) 07-29 03-20 IV Push, ity of injection 5 00:30: 23:26 ONCE, 1 [place] mg 00 :00 dose, [facility] 07/28/20 at Branch 1930, TITA NaCl 0.9% 2020- No 1000mL at 999 Uni vers (NS) bolus 07-28 03-21 mL/hr, ity of infusion 22:15: 00:55 1,000 mL, [place] 1,000 mL 00 :00 IV Medical Infusion, [place] ONCE, 1 dose, 07/28/20 at 1715, STAT LORazepam 2020- No 1mg 1 mg, Slow U nivers (ATIVAN) 3 03-20 IV Push, ity of injection 1 [...] dose, 06/30/20 at 0600, TITA metoprolol Yes [id number] 50mg Take 2 U nivers tartrate 25 2-20 tablets by it y of mg tablet 00:00: mouth 2 [place] (two) Medical times [place] daily. metoprolol Yes [id number] 50mg Take 2 U nivers tartrate 25 2-20 tablets by it y of mg tablet 00:00: mouth 2 [place] 00 (two) Medical times [place] daily. metoprolol Yes [id number] 50mg Take 2 U nivers tartrate 25 2-20 tablets by it y of mg tablet 00:00: mouth 2 [place] 00 (two) Medical times Branch daily. metoprolol 2020-0 Yes [id number] 50mg Take 2 U nivers tartrate 25 2-20 tablets by it y of mg tablet 00:00: mouth (two) Medical times Branch daily. metoprolol 2020-0 Yes [id number] 50mg Take 2 U nivers tartrate 25 2-20 tablets by it y of mg tablet 00:00: mouth (two) Medical times Branch daily. metoprolol 2020-0 Yes [id number] 50mg Take 2 U nivers tartrate 25 2-20 tablets by it y of mg tablet 00:00: mouth (two) Medical times Branch daily. metoprolol 2020-0 Yes [id number] 50mg Take 2 U nivers tartrate 25 2-20 tablets by it y of mg tablet 00:00: mouth (two) Medical times Branch daily. metoprolol 2020-0 Yes [id number] 50mg Take 2 U nivers tartrate 25 2-20 tablets by it y of mg tablet 00:00: mouth (two) Medical times Branch daily. metoprolol 2020-0 Yes [id number] 50mg Take 2 U nivers tartrate 25 2-20 tablets by it y of mg tablet 00:00: mouth (two) Medical times Branch daily. metoprolol 2020-0 Yes [id number] 50mg Take 2 U nivers tartrate 25 2-20 tablets by it y of mg tablet 00:00: mouth (two) Medical times Branch daily. metoprolol 2020-0 Yes [id number] 50mg Take 2 U nivers tartrate 25 2-20 tablets by it y of mg tablet 00:00: mouth (two) Medical times Branch daily. metoprolol 2020-0 Yes [id number] 50mg Take 2 U nivers tartrate 25 2-20 tablets by it y of mg tablet 00:00: mouth (two) Medical times Branch daily. metoprolol 2020-0 Yes [id number] 50mg Take 2 U nivers tartrate 25 2-20 tablets by it y of mg tablet 00:00: mouth (two) Medical times Branch daily. metoprolol 2021- No [id number] 50mg Take 2 Univers tartrate 25 -20 03-30 tablets by i ty of mg tablet 00:00: 00:00 mouth 2 [place] 00 :00 (two) Medical times Branch daily. ibuprofen 2020- No 600mg 600 mg, Uni vers (IBU) 06-23- Oral, ity of tablet 600 21:15: 20:35 ONCE, 1 [place] mg 00 :00 dose, Sat Medical 06/23/20 at Branch 1515, TITA ibuprofen Yes [id number] 600mg Take 1 [facility] 600 mg 06-23 [id number] tablet by ity of tablet 00:00: mouth [place] 00 every 6 Medical (six) Branch hours as needed for Pain (scale 4-6). ibuprofen Yes [id number] 600mg Take 1 Univers 600 mg - [id number] tablet by ity of tablet 00:00: mouth [place] 00 every 6 Medical (six) Branch hours as needed for Pain (scale 4-6). ibuprofen Yes [id number] 600mg Take 1 [facility] 600 mg 06-23 [id number] tablet by ity of tablet 00:00: mouth [place] 00 every 6 Medical (six) Branch hours as needed for Pain (scale 4-6). ibuprofen 2020- No [id number] 600mg Take 1 Univers 600 mg 06-23-20 [id number] tablet by ity o f tablet 00:00: 00:00 mouth [place] 00 :00 every 6 Medical (six) Branch hours as needed for Pain (scale 4-6). venlafaxine 2019- No [id number] 225mg QD Take 3 M ethodi XR 02-[address] (EFFEXOR-XR 00:00: 04:59 (225 mg Ho spita ) 75 MG 24 00 :00 total) by l hr capsule mouth every morning for 7 days .major depressive disorder. nicotine 2019- No [id number] 2mg Q2H Chew 1 Metho di polacrilex 01-31 each ([address] (NICORETTE) 00:00: 04:59 total) Hos su[facility] 2 mg gum 00 :00 every 2 l (two) hours as needed for smoking cessation for up to 30 days .stop smoking. metoprolol 2020-0 2020- [place] [id number] 50mg Q.5D Take 1 Met hodi tartrate 01-31- tablet (50 st (LOPRESSOR) 00:00: 04:59 mg total) Hospita 50 mg 00 :00 by mouth l tablet BID at 0700, 1900 for 30 days .high blood pressure. busPIRone 2019-0 2020- No [id number] 7.5mg Q.5D Take 1 Met hodi (BUSPAR) 01-[address] 7.5 MG 00:00: 04:59 (7.5 mg Hospita tablet 00 :00 total) by l mouth 2 (two) times a day for 7 days .repeated episodes of anxiety. sodium 2020-0 Yes 5mL 5 mL, Univers chloride 7 Intravenou ity o f (NS) 04:17: s, PRN, [place] injection 5 55 Starting Medi kofi mL 11/09/19 Branch at 2317, Until Discontinu ed, Routine, IV line flushing dicyclomine 2019-0 2019- No 20mg 20 mg, Uni vers (BENTYL) 09-28- Oral, ity of capsule 20 16:00: 15:16 ONCE, 1 [place] mg 00 :00 dose, [facility] 09/29/19 at Branch 1100, Routine ondansetron 2019-0 2019- No 4mg 4 mg, Slow Univers (ZOFRAN 09-28- IV Push, ity of (PF)) 16:00: 15:23 ONCE, 1 [place] injection 4 00 :00 dose, [facility] Med ical mg 09/29/19 at Branch 1100, TITA NaCl 0.9% 2019-0 2020- No 1000mL at 999 Uni vers (NS) bolus 09-28- mL/hr, ity of infusion 16:00: 16:30 1,000 mL, [place] 1,000 mL 00 :00 IV Medical Piggyback, [place] ONCE, 1 dose, [facility] 09/29/19 at 1100, STAT loperamide 2019-0 Yes 2mg 2 mg, Univer s (IMODIUM 09-28 Oral, ity of A-D) 14:53: Q4HPRN, [place] capsule 2 46 Starting Medica l mg [facility] Branch 09/29/19 at 0953, Until Discontinu ed, Routine, Diarrhea ondansetron 2020-0 Yes [id number] 4mg Take 1 U nivers 4 mg 5-21 tablet by ity of disintegrat 00:00: mouth [place] ing tablet 00 every 8 Medica l (eight) Branch hours as needed for Nausea and Vomiting (N/V). loperamide 2020-0 Yes [id number] 2mg Take 1 Un jaqueline 2 mg 5-21 capsule by ity of capsule 00:00: mouth [place] 00 every 4 Medical (four) Branch hours as needed for Diarrhea. Not to exceed 16mg daily. ondansetron 2020-0 Yes [id number] 4mg Take 1 U nivers 4 mg 5-21 tablet by ity of disintegrat 00:00: mouth [place] ing tablet 00 every 8 Medica l (eight) Branch hours as needed for Nausea and Vomiting (N/V). loperamide 2020-0 Yes [id number] 2mg Take 1 Un jaqueline 2 mg 5-21 capsule by ity of capsule 00:00: mouth [place] 00 every 4 Medical (four) Branch hours as needed for Diarrhea. Not to exceed 16mg daily. ondansetron 2020-0 Yes [id number] 4mg Take 1 U nivers 4 mg 5-21 tablet by ity of disintegrat 00:00: mouth [place] ing tablet 00 every 8 Medica l (eight) Branch hours as needed for Nausea and Vomiting (N/V). loperamide 2020-0 Yes [id number] 2mg Take 1 Un [place] 2 mg 5-21 capsule by ity of capsule 00:00: mouth [place] 00 every 4 Medical (four) Branch hours as needed for Diarrhea. Not to exceed 16mg daily. ondansetron 2020-0 Yes [id number] 4mg Take 1 U nivers 4 mg 5-21 tablet by ity of disintegrat 00:00: mouth [place] ing tablet 00 every 8 Medica l (eight) Branch hours as needed for Nausea and Vomiting (N/V). loperamide 2020-0 Yes [id number] 2mg Take 1 Un ja[place] 2 mg 5-21 capsule by ity of capsule 00:00: mouth [place] 00 every 4 Medical (four) Branch hours as needed for Diarrhea. Not to exceed 16mg daily. ondansetron 2020-0 Yes [id number] 4mg Take 1 U nivers 4 mg 5-21 tablet by ity of disintegrat 00:00: mouth [place] ing tablet 00 every 8 Medica l (eight) Branch hours as needed for Nausea and Vomiting (N/V). loperamide 2019-0 Yes [id number] 2mg Take 1 Un ja[place] 2 mg 5-21 capsule by ity of capsule 00:00: mouth [place] 00 every 4 Medical (four) Branch hours as needed for Diarrhea. Not to exceed 16mg daily. ondansetron 2020-0 Yes [id number] 4mg Take 1 U nivers 4 mg 5-21 tablet by ity of disintegrat 00:00: mouth [place] ing tablet 00 every 8 Medica l (eight) Branch hours as needed for Nausea and Vomiting (N/V). ondansetron 2019-0 Yes [id number] 4mg Take 1 U nivers 4 mg 5-21 tablet by ity of disintegrat 00:00: mouth [place] ing tablet 00 every 8 Medica l (eight) Branch hours as needed for Nausea and Vomiting (N/V). ondansetron 2019-0 Yes [id number] 4mg Take 1 U nivers 4 mg 5-21 tablet by ity of disintegrat 00:00: mouth [place] ing tablet 00 every 8 Medica l (eight) Branch hours as needed for Nausea and Vomiting (N/V). ondansetron 2019-2020- No [id number] 4mg Take 1 [facility] 4 mg 5-21 09-16 tablet by ity of disintegrat 00:00: 00:00 [place] tablet 00 :00 every 8 Medica l (eight) Branch hours as needed for Nausea and Vomiting (N/V). ondansetron 2019-2020- No [id number] 4mg Take 1 Univers 4 mg 5-21 09-16 tablet by ity of disintegrat 00:00: 00:00 [place] tablet 00 :00 every 8 Medica l (eight) Branch hours as needed for Nausea and Vomiting (N/V). loperamide 2019-2020- No [id number] 2mg Take 1 U nivers 2 mg 5-21 06-20 capsule by ity of capsule 00:00: 00:00 mouth [place] 00 :00 every 4 Medical (four) Branch hours as needed for Diarrhea. Not to exceed 16mg daily. dicyclomine 2019-0 2019- No [id number] 10mg Take 1 Univers (BENTYL) 10 5-21 [...] 1 [place] :[place] dose, [facility] Medical 06/16/19 at Branch 0945, STAT diazePAM 2020-0 2020- No 2.5mg 2.5 mg, Univ ers (VALIUM) 06-16 Oral, ity of tablet 2.5 14:15: 14:08 ONCE, 1 [place] mg 00 :00 dose, [facility] Medical 06/16/19 at [place] 0815, TITA LORazepam 2020-0 2020- No 1mg 1 mg, Slow U nivers (ATIVAN) 06-15 IV Push, ity of injection 1 20:00: 18:59 ONCE, 1 [place] mg 00 :[place] dose, [facility] Medical 06/15/19 at [place] 1400, STAT metoprolol 2020-0 Yes 50mg Take 50 mg U nivers succinate 1-19 by mouth 2 ity of XL (TOPROL 16:21: ([facility]) [place] XL) 25 mg 12 times Medical 24 [...] [place] 12 times Medical daily. Branch metoprolol Yes 50mg Take 50 mg U nivers succinate 1-19 by mouth 2 ity of XL (TOPROL 16:21: (two) [place] XL) 25 mg 12 times Medical 24 hr daily. Branch tablet diazePAM Yes 10mg Take 10 mg Uni vers (VALIUM) 10 1-19 by mouth 2 it y of mg tablet 16:21: (two) [place] 12 times Medical daily. Branch amoxicillin 2020- No [id number] 500mg Take 1 Univers 500 mg 05-29 capsule by ity of capsule 00:00: 05:59 mouth 2 [place] 00 :00 (two) Medical times [place] daily for 10 days. amoxicillin 2019- No [id number] 500mg Take 1 Univers 500 mg 05-29 capsule by ity of capsule 00:00: 05:59 mouth 2 [place] 00 :00 (two) Medical times [place] daily for 10 days. metoprolol 2018-05 Yes [...] times Medical daily. Branch pantoprazol 2018-05 Yes [id number] 40mg Take 1 Univers e 0-12 tablet by ity of (PROTONIX) 00:00: mouth [place] 40 mg EC 00 daily. Medical tablet Branch pantoprazol 2018-05 Yes [id number] 40mg Take 1 Univers e 0-12 tablet by ity of (PROTONIX) 00:00: mouth [place] 40 mg EC 00 daily. Medical tablet Branch pantoprazol 2018-05 Yes [id number] 40mg Take 1 Univers e 0-12 tablet by ity of (PROTONIX) 00:00: mouth [place] 40 mg EC 00 daily. Medical tablet Branch pantoprazol 2018-05 Yes [id number] 40mg Take 1 Univers e 0-12 tablet by ity of (PROTONIX) 00:00: mouth [place] 40 mg EC 00 daily. Medical tablet Branch pantoprazol 2018-05 Yes [id number] 40mg Take 1 Univers e 0-12 tablet by ity of (PROTONIX) 00:00: mouth [place] 40 mg EC 00 daily. Medical tablet Branch pantoprazol 2018-05 Yes [id number] 40mg Take 1 Univers e 0-12 tablet by ity of (PROTONIX) 00:00: mouth [place] 40 mg EC 00 daily. Medical tablet Branch pantoprazol 2018-05 Yes [id number] 40mg Take 1 Univers e 0-12 tablet by ity of (PROTONIX) 00:00: mouth [place] 40 mg EC 00 daily. Medical tablet Branch pantoprazol 2018-05 Yes [id number] 40mg Take 1 Univers e 0-12 tablet by ity of (PROTONIX) 00:00: mouth [place] 40 mg EC 00 daily. Medical tablet Branch pantoprazol 2018-05 Yes [id number] 40mg Take 1 Univers e 0-12 tablet by ity of (PROTONIX) 00:00: mouth [place] 40 mg EC 00 daily. Medical tablet Branch pantoprazol 2018-05 Yes [id number] 40mg Take 1 Univers e 0-12 tablet by ity of (PROTONIX) 00:00: mouth [place] 40 mg EC 00 daily. Medical tablet Branch pantoprazol 2018-05 Yes [id number] 40mg Take 1 Univers e 0-12 tablet by ity of (PROTONIX) 00:00: mouth [place] 40 mg EC 00 daily. Medical tablet Branch pantoprazol 2018-05 Yes [id number] 40mg Take 1 Univers e 0-12 tablet by ity of (PROTONIX) 00:00: mouth [place] 40 mg EC 00 daily. Medical tablet Branch pantoprazol 2018-05 Yes [id number] 40mg Take 1 Univers e 0-12 tablet by ity of (PROTONIX) 00:00: mouth [place] 40 mg EC 00 daily. Medical tablet Branch pantoprazol 2018-05 Yes [id number] 40mg Take 1 Univers e 0-12 tablet by ity of (PROTONIX) 00:00: mouth [place] 40 mg EC 00 daily. Medical tablet Branch pantoprazol 2018-05 Yes [id number] 40mg Take 1 Univers e 0-12 tablet by ity of (PROTONIX) 00:00: mouth [place] 40 mg EC 00 daily. Medical tablet Branch pantoprazol 2018-05 Yes [id number] 40mg Take 1 Univers e 0-12 tablet by ity of (PROTONIX) 00:00: mouth [place] 40 mg EC 00 daily. Medical tablet Branch pantoprazol 2018-05 Yes [id number] 40mg Take 1 Univers e 0-12 tablet by ity of (PROTONIX) 00:00: mouth [place] 40 mg EC 00 daily. Medical tablet Branch pantoprazol 2018-05 Yes [id number] 40mg Take 1 Univers e 0-12 tablet by ity of (PROTONIX) 00:00: mouth [place] 40 mg EC 00 daily. Medical tablet Branch pantoprazol 2018-05 Yes [id number] 40mg Take 1 Univers e 0-12 tablet by ity of (PROTONIX) 00:00: mouth [place] 40 mg EC 00 daily. Medical tablet Branch pantoprazol 2018-05 Yes [id number] 40mg Take 1 Univers e 0-12 tablet by ity of (PROTONIX) 00:00: mouth [place] 40 mg EC 00 daily. Medical tablet Branch pantoprazol 2018-05 Yes [id number] 40mg Take 1 Univers e 0-12 tablet by ity of (PROTONIX) 00:00: mouth [place] 40 mg EC 00 daily. Medical tablet Branch pantoprazol 2018-05 Yes [id number] 40mg Take 1 Univers e 0-12 tablet by ity of (PROTONIX) 00:00: mouth [place] 40 mg EC 00 daily. Medical tablet Branch pantoprazol 2018-05- No [id number] 40mg Take 1 Univers e 0-12 03-28 tablet by ity of (PROTONIX) 00:00: 00:00 mouth [place] 40 mg EC 00 :00 daily. Medical tablet Branch ketorolac 2019- No 15mg 15 mg, Unive rs (TORADOL) 01-25 Slow IV ity of injection 01:00: 23:57 Push, [place] 15 mg 00 :00 ONCE, 1 Medical dose, Mon Branch 01/24/19 at 2000, Routine
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 methocarbam 2019-0 Yes [id number] 500mg Take 1 Univers ol 500 mg 9-16 tablet by ity o f tablet 00:00: mouth (four) Medical times Branch daily. methocarbam 2019-0 Yes [id number] 500mg Take 1 Univers ol 500 mg 9-16 tablet by ity o f tablet 00:00: mouth (four) Medical times Branch daily. methocarbam 2018-0 Yes [id number] 500mg Take 1 Univers ol 500 mg 9-16 tablet by ity o f tablet 00:00: mouth (four) Medical times Branch daily. methocarbam 2018-0 Yes [id number] 500mg Take 1 Univers ol 500 mg 9-16 tablet by ity o f tablet 00:00: mouth (four) Medical times Branch daily. methocarbam 2018-0 Yes [id number] 500mg Take 1 Univers ol 500 mg 9-16 tablet by ity o f tablet 00:00: mouth (four) Medical times Branch daily. methocarbam 2018-0 Yes [id number] 500mg Take 1 Univers ol 500 mg 9-16 tablet by ity o f tablet 00:00: mouth (four) Medical times Branch daily. methocarbam 2018-0 Yes [id number] 500mg Take 1 Univers ol 500 mg 9-16 tablet by ity o f tablet 00:00: mouth (four) Medical times Branch daily. methocarbam 2019-0 Yes [id number] 500mg Take 1 Univers ol 500 mg 9-16 tablet by ity o f tablet 00:00: mouth (four) Medical times Branch daily. methocarbam 2019-0 Yes [id number] 500mg Take 1 Univers ol 500 mg 9-16 tablet by ity o f tablet 00:00: mouth 4 (four) Medical times Branch daily. methocarbam 2019-0 Yes [id number] 500mg Take 1 Univers ol 500 mg 9-16 tablet by ity o f tablet 00:00: mouth 4 [place] 00 (four) Medical times Branch daily. methocarbam Yes [id number] 500mg Take 1 Univers ol 500 mg 9-16 tablet by ity o f tablet 00:00: mouth 4 [place] 00 (four) Medical times Branch daily. methocarbam 2020- No [id number] 500mg Take 1 Univers ol 500 mg 9-16 06-20 tablet by ity of tablet 00:00: 00:00 mouth 4 [place] 00 :00 (four) Medical times Branch daily. ketorolac 2019- No 30mg 30 mg, Unive rs (TORADOL) 12-21 Slow IV ity of injection 23:45: 23:22 Push, [place] 30 mg 00 :00 ONCE, 1 Medical dose, [facility] 12/21/18 at 1845, TITA
[facility] Restricted medication : DEMOND PERSON dicyclomine 2019- No 20mg 20 mg, Uni vers (BENTYL) 12-21 Oral, ONCE ity of capsule 20 23:45: 23:22 NOW, 1 [place] mg 00 :[place] dose, [facility] 12/21/18 at Branch 1845, Routine ondansetron 2019- No 4mg 4 mg, Slow Univers (ZOFRAN 12-21 IV Push, ity of (PF)) 22:30: 22:25 ONCE, 1 [place] injection 4 00 :00 dose, [facility] Med ical mg 12/21/18 at Branch 1730, TITA NaCl 0.9% 2019- No 1000mL at 999 Uni vers (NS) bolus 12-21 mL/hr, ity of infusion 22:30: 23:34 1,000 mL, [place] 1,000 mL 00 :00 IV Medical Infusion, Branch ONCE, 1 dose, [facility] 12/21/18 at 1730, STAT ondansetron 2018- Yes [id number] 4mg Take 1 Univers (ZOFRAN 8-13 tablet by ity of ODT) 4 mg 00:00: mouth [place] disintegrat 00 every 8 Medic al ing tablet (eight) Branch hours as needed for Nausea and Vomiting (N/V). dicyclomine 2019-0 Yes [id number] 20mg Take 1 Univers (BENTYL) 20 8-13 tablet by ity of mg tablet 00:00: mouth 3 [place] 00 (three) Medical times Branch daily as needed for Abdominal pain. ondansetron 2019-0 Yes [id number] 4mg Take 1 Univers (ZOFRAN 8-13 tablet by ity of ODT) 4 mg 00:00: mouth [place] disintegrat 00 every 8 Medic al ing tablet (eight) Branch hours as needed for Nausea and Vomiting (N/V). dicyclomine 2019-0 Yes [id number] 20mg Take 1 Univers (BENTYL) 20 8-13 tablet by ity of mg tablet 00:00: mouth 3 [place] 00 (three) Medical times Branch daily as needed for Abdominal pain. ondansetron 2018-0 Yes [id number] 4mg Take 1 Univers (ZOFRAN 8-13 tablet by ity of ODT) 4 mg 00:00: mouth [place] disintegrat 00 every 8 Medic al ing tablet (eight) Branch hours as needed for Nausea and Vomiting (N/V). dicyclomine 2018-0 Yes [id number] 20mg Take 1 Univers (BENTYL) 20 8-13 tablet by ity of mg tablet 00:00: mouth 3 [place] 00 (three) Medical times Branch daily as needed for Abdominal pain. ondansetron 2019-0 Yes [id number] 4mg Take 1 Univers (ZOFRAN 8-13 tablet by ity of ODT) 4 mg 00:00: mouth [place] disintegrat 00 every 8 Medic al ing tablet (eight) Branch hours as needed for Nausea and Vomiting (N/V). dicyclomine 2019-0 Yes [id number] 20mg Take 1 Univers (BENTYL) 20 8-13 tablet by ity of mg tablet 00:00: mouth 3 [place] 00 (three) Medical times Branch daily as needed for Abdominal pain. ondansetron 2019-0 Yes [id number] 4mg Take 1 Univers (ZOFRAN 8-13 tablet by ity of ODT) 4 mg 00:00: mouth [place] disintegrat 00 every 8 Medic al ing tablet (eight) Branch hours as needed for Nausea and Vomiting (N/V). dicyclomine 2019-0 Yes [id number] 20mg Take 1 Univers (BENTYL) 20 8-13 tablet by ity of mg tablet 00:00: mouth 3 [place] 00 (three) Medical times Branch daily as needed for Abdominal pain. ondansetron 2019-0 Yes [id number] 4mg Take 1 Univers (ZOFRAN 8-13 tablet by ity of ODT) 4 mg 00:00: mouth [place] disintegrat 00 every 8 Medic al ing tablet (eight) Branch hours as needed for Nausea and Vomiting (N/V). dicyclomine 2019- Yes [id number] 20mg Take 1 Univers (BENTYL) 20 8-13 tablet by ity of mg tablet 00:00: mouth 3 [place] 00 (three) Medical times Branch daily as needed for Abdominal pain. ondansetron 2018-0 Yes [id number] 4mg Take 1 Univers (ZOFRAN 8-13 tablet by ity of ODT) 4 mg 00:00: mouth [place] disintegrat 00 every 8 Medic al ing tablet (eight) Branch hours as needed for Nausea and Vomiting (N/V). dicyclomine 2018- Yes [id number] 20mg Take 1 Univers (BENTYL) 20 8-13 tablet by ity of mg tablet 00:00: mouth 3 [place] 00 (three) Medical times Branch daily as needed for Abdominal pain. ondansetron 2018- Yes [id number] 4mg Take 1 Univers (ZOFRAN 8-13 tablet by ity of ODT) 4 mg 00:00: mouth [place] disintegrat 00 every 8 Medic al ing tablet (eight) Branch hours as needed for Nausea and Vomiting (N/V). dicyclomine 2018- Yes [id number] 20mg Take 1 Univers (BENTYL) 20 8-13 tablet by ity of mg tablet 00:00: mouth 3 [place] 00 (three) Medical times Branch daily as needed for Abdominal pain. ondansetron 2018-0 Yes [id number] 4mg Take 1 Univers (ZOFRAN 8-13 tablet by ity of ODT) 4 mg 00:00: mouth [place] disintegrat 00 every 8 Medic al ing tablet (eight) Branch hours as needed for Nausea and Vomiting (N/V). dicyclomine 2019-0 Yes [id number] 20mg Take 1 Univers (BENTYL) 20 8-13 tablet by ity of mg tablet 00:00: mouth 3 [place] 00 (three) Medical times Branch daily as needed for Abdominal pain. ondansetron 2020- No [id number] 4mg Take 1 Univers (ZOFRAN 8-13 05-21 tablet by ity of ODT) 4 mg 00:00: 00:00 mouth [place] disintegrat 00 :00 every 8 Medic al ing tablet (eight) Branch hours as needed for Nausea and Vomiting (N/V). dicyclomine 2020- No [id number] 20mg Take 1 Univers (BENTYL) 20 12-21 tablet by it y of mg tablet 00:00: 00:00 mouth 3 [place] 00 :00 (three) Medical times Branch daily as needed for Abdominal pain. metoprolol 2019- Yes 50mg Take 50 mg U nivers succinate 7-02 by mouth 2 ity of XL (TOPROL 22:02: (two) [place] XL) 25 mg 32 times Medical 24 hr daily. Branch tablet diazePAM Yes 10mg Take 10 mg Uni vers (VALIUM) 10 7-02 by mouth 2 it y of mg tablet 22:02: (two) [place] 32 times Medical daily. Branch metoprolol Yes 50mg Take 50 mg U nivers succinate -02 by mouth 2 ity of XL (TOPROL 22:02: (two) [place] XL) 25 mg 32 times Medical 24 hr daily. Branch tablet diazePAM Yes 10mg Take 10 mg Uni vers (VALIUM) 10 7-02 by mouth 2 it y of mg tablet 22:02: (two) [place] 32 times Medical daily. Branch metoprolol Yes 50mg Take 50 mg U nivers succinate 7-02 by mouth 2 ity of XL (TOPROL 22:02: (two) [place] XL) 25 mg 32 times Medical 24 hr daily. Branch tablet diazePAM 2019 Yes 10mg Take 10 mg Uni vers (VALIUM) 10 7-02 by mouth 2 it y of mg tablet 22:02: (two) [place] 32 times Medical daily. Branch metoprolol 2019 Yes 50mg Take 50 mg U nivers succinate 7-02 by mouth 2 ity of XL (TOPROL 22:02: (two) [place] XL) 25 mg 32 times Medical 24 hr daily. Branch tablet diazePAM Yes 10mg Take 10 mg Uni vers (VALIUM) 10 7-02 by mouth 2 it y of mg tablet 22:02: (two) [place] 32 times Medical daily. Branch traMADOL 2014-05 [...] it y of mg tablet 00:00: (two) [place] 00 times Medical daily. Branch busPIRone 2014-05 Yes 10mg Take 1 Tab Un jaqueline (BUSPAR) 10 2-14 by mouth 2 it y of mg tablet 00:00: (two) [place] 00 times Medical daily. Branch busPIRone 2014-05 Yes 10mg Take 1 Tab Un [place] (BUSPAR) 10 2-14 by mouth 2 it y of mg tablet 00:00: (two) [place] 00 times Medical daily. Branch busPIRone 2014-05 Yes 10mg Take 1 Tab Un ja[place]eline (BUSPAR) 10 2-14 by mouth 2 it y of mg tablet 00:00: (two) [place] 00 times Medical daily. Branch busPIRone 2014-05 Yes 10mg Take 1 Tab Un ja[place]eline (BUSPAR) 10 2-14 by mouth 2 it y of mg tablet 00:00: (two) [place] 00 times Medical daily. Branch busPIRone 2014-05 Yes 10mg Take 1 Tab Un ja[place]eline (BUSPAR) 10 2-14 by mouth 2 it y of mg tablet 00:00: (two) [place] 00 times Medical daily. Branch busPIRone 2014-05 Yes 10mg Take 1 Tab Un jaqueline (BUSPAR) 10 2-14 by mouth 2 it y of mg tablet 00:00: (two) [place] 00 times Medical daily. Branch busPIRone 2014-05- No 10mg Take 1 Tab U nivers (BUSPAR) 10 2-14 06-20 by mouth 2 i ty of mg tablet 00:00: 00:00 (two) [place] 00 :00 times Medical daily. Branch clonazePAM [...] Time Observation Value Comments Source Systolic blood 2021-11-21 15:02:00 121 [facility]Hg[facility] [place] Diastolic blood 2021-11-21 15:02:00 64 mm[Hg] [facility] Heart rate 2021-11-21 15:02:00 75 /min [facility] Respiratory rate 2021-11-21 15:02:00 18 /min [facility] Oxygen saturation in 2021-11-21 15:02:00 95 /min [facility] Arterial blood by [facility] Pulse oximetry [place] Body temperature 2021-11-21 11:47:00 37.5 [facility] Body height 2021-11-21 11:47:00 170.2 cm [facility] Body weight 2021-11-21 11:47:00 102.059 kg [facility] BMI 2021-11-21 11:47:00 35.24 kg/m2 [facility] Systolic blood 2021-11-19 22:31:18 146 mm[Hg] Univer [facility] [place] Diastolic blood 2021-11-19 22:31:18 85 mm[Hg] Unive rsity of pressure [place] [facility] Heart rate 2021-11-19 22:31:18 92 /min [facility] [place] [facility] Respiratory rate 2021-11-19 22:31:18 16 /min Univ ersity [facility] [place] [facility] Oxygen saturation in 2021-11-19 22:31:18 97 /min University of Arterial blood by [facility] kofi Pulse oximetry Branch Body temperature 2021-11-19 20:59:00 37.67 [place] [facility] ers[facility] [place] [facility] Body height 2021-11-19 20:59:00 170.2 cm [facility] [place] [facility] Body weight 2021-11-19 20:59:00 104.327 kg [facility] [place] [facility] BMI 2021-11-19 20:59:00 36.02 kg/m2 [facility] [place] [facility] Systolic blood 2021-10-08 02:08:00 152 mm[Hg] Univer sity of pressure [place] [facility] Diastolic blood 2021-10-08 02:08:00 102 mm[Hg] Unive rsity of pressure [place] [facility] Heart rate 2021-10-08 02:08:00 83 /min [facility] [place] [facility] Body temperature 2021-10-08 02:08:00 37.28 [place] [facility] [place] [facility] Respiratory rate 2021-10-08 02:08:00 22 /min Univ ersity [facility] [place] [facility] Body height 2021-10-08 02:08:00 170.2 cm [facility] [place] [facility] Body weight 2021-10-08 02:08:00 102.785 kg [facility] [place] [facility] BMI 2021-10-08 02:08:00 35.49 kg/m2 [facility] [place] [facility] Oxygen saturation in 2021-10-08 02:08:00 97 /min University of Arterial blood by [facility] Pulse oximetry Branch Systolic blood 2021-09-30 02:00:00 131 mm[Hg] Univer sity of pressure [place] [facility] Diastolic blood 2021-09-30 02:00:00 80 mm[Hg] Unive rsity of pressure [place] [facility] Heart rate 2021-09-30 02:00:00 89 /min [facility] [place] [facility] Respiratory rate 2021-09-30 02:00:00 15 /min [facility] ers[facility] [place] [facility] Oxygen saturation in 2021-09-30 02:00:00 94 /min University of Arterial blood by [facility] Pulse oximetry Branch Body temperature 2021-09-30 01:22:00 36.72 [place] [facility] [place] [facility] Body height 2021-09-30 01:22:00 170.2 cm [facility] [place] [facility] Body weight 2021-09-30 01:22:00 104.327 kg [facility] [place] [facility] BMI 2021-09-30 01:22:00 36.02 kg/m2 [facility] [place] [facility] Body temperature 2021-09-14 00:00:00 37.17 [place] [facility] [place] [facility] Systolic blood 2021-09-13 21:00:00 145 mm[Hg] Univer sity of pressure [place] [facility] Diastolic blood 2021-09-13 21:00:00 98 mm[Hg] Unive rsity of pressure [place] [facility] Heart rate 2021-09-13 21:00:00 75 /min [facility] [place] [facility] Respiratory rate 2021-09-13 21:00:00 15 /min Univ ers[facility] [place] [facility] Oxygen saturation in 2021-09-13 21:00:00 96 /min University of Arterial blood by [facility] Pulse oximetry Branch Body weight 2021-09-13 11:00:00 104.463 kg [facility] [place] [facility] BMI 2021-09-13 11:00:00 36.07 kg/m2 [facility] [place] [facility] Body height 2021-09-12 16:00:00 170.2 cm [facility] [place] [facility] Systolic blood 2021-09-06 12:14:00 133 mm[Hg] Univer sity of pressure [place] [facility] Diastolic blood 2021-09-06 12:14:00 84 mm[Hg] Unive rsity of pressure [place] [facility] Heart rate 2021-09-06 12:14:00 78 /min [facility] [place] [facility] Body temperature 2021-09-06 12:14:00 36.11 [place] [facility] [place] [facility] Respiratory rate 2021-09-06 12:14:00 17 /min [facility] ers[facility] [place] [facility] Oxygen saturation in 2021-09-06 12:14:00 96 /min University of Arterial blood by [place] [employer] [facility]i Pulse oximetry Branch Body height 2021-09-05 20:10:00 170.2 cm [facility] [place] [facility] Body weight 2021-09-05 20:10:00 99.791 kg [facility] [place] [facility] BMI 2021-09-05 20:10:00 34.46 kg/m2 [facility] [place] [facility] Systolic blood 2021-08-07 16:16:00 132 mm[Hg] Univer sity of pressure [place] [facility] Diastolic blood 2021-08-07 16:16:00 86 mm[Hg] Unive rsity of pressure [place] [facility] Heart rate 2021-08-07 16:16:00 71 /min [facility] [place] [facility] Body temperature 2021-08-07 16:16:00 36.22 [place] [facility] [place] [facility] Respiratory rate 2021-08-07 16:16:00 18 /min [facility] ers[facility] [place] [facility] Oxygen saturation in 2021-08-07 16:16:00 94 /min University of Arterial blood by [place] [employer] [facility]i Pulse oximetry Branch Body height 2021-08-06 20:45:00 170.2 cm [facility] [place] [facility] Body weight 2021-08-06 20:45:00 104.327 kg [facility] [place] [facility] BMI 2021-08-06 20:45:00 36.02 kg/m2 [facility] [place] [facility] WEIGHT 2021-07-15 23:46:00 100 kg WEIGHT 2021-07-15 23:46:00 100 kg Systolic blood 2021-06-05 18:40:00 149 mm[Hg] Univer sity of pressure [place] [facility] Diastolic blood 2021-06-05 18:40:00 74 mm[Hg] Unive rsity of pressure [place] [facility] Heart rate 2021-06-05 18:40:00 80 /min [facility] [place] [facility] Respiratory rate 2021-06-05 18:40:00 17 /min [facility] ersity [facility] [place] [facility] Oxygen saturation in 2021-06-05 18:40:00 100 /min University of Arterial blood by [place] [employer] [facility]i Pulse oximetry Branch Body temperature 2021-06-05 15:05:00 36.11 [place] [facility] [place] [facility] Body height 2021-06-05 15:05:00 170.2 cm [facility] [place] [facility] Body weight 2021-06-05 15:05:00 99.338 kg [facility] [place] [facility] BMI 2021-06-05 15:05:00 34.30 kg/m2 [facility] [place] [facility] Systolic blood 2021-05-27 18:00:00 146 mm[Hg] Univer sity of pressure [place] [facility] Diastolic blood 2021-05-27 18:00:00 130 mm[Hg] Unive rsity of pressure [place] [facility] Heart rate 2021-05-27 18:00:00 85 /min [facility] [place] [facility] Oxygen saturation in 2021-05-27 18:00:00 97 /min University of Arterial blood by [facility] kofi Pulse oximetry Branch Respiratory rate 2021-05-27 17:52:00 18 /min [facility] Body temperature 2021-05-27 15:53:00 35.78 Siobhan [facility] Body weight 2021-05-27 15:53:00 102.967 kg [facility] BMI 2021-05-27 15:53:00 34.52 kg/m2 [facility] Respiratory rate 2021-05-05 13:33:00 18 /min [facility] Oxygen saturation in 2021-05-05 13:33:00 97 /min [facility] blood by [facility] Pulse oximetry Branch Systolic blood 2021-05-05 12:44:00 155 mm[Hg] [facility] Diastolic blood 2021-05-05 12:44:00 75 mm[Hg] [facility] Heart rate 2021-05-05 12:44:00 59 /min [facility] Body temperature 2021-05-05 12:44:00 36.5 Siobhan [facility] Body height 2021-05-05 06:46:00 172.7 cm [facility] Body weight 2021-05-05 06:46:00 102.967 kg [facility] BMI 2021-05-05 06:46:00 34.52 kg/m2 [facility] Systolic blood 2021-03-31 14:51:24 151 mm[Hg] [facility] Diastolic blood 2021-03-31 14:51:24 98 mm[Hg] [facility] Heart rate 2021-03-31 14:51:24 92 /min [facility] Body temperature 2021-03-31 14:51:24 36.67 Siobhan [facility] Respiratory rate 2021-03-31 14:51:24 18 /min [facility] Body height 2021-03-31 14:35:00 170.2 cm [facility] Body weight 2021-03-31 14:35:00 99.791 kg [facility] BMI 2021-03-31 14:35:00 34.46 kg/m2 [facility] Oxygen saturation in 2021-03-31 14:35:00 99 /min [facility] Pulse oximetry Branch Systolic blood 2021-02-18 16:00:00 110 mm[Hg] [facility] Diastolic blood 2021-02-18 16:00:00 77 mm[Hg] [facility] Heart rate 2021-02-18 16:00:00 61 /min [facility] Respiratory rate 2021-02-18 16:00:00 15 /min [facility] Oxygen saturation in 2021-02-18 16:00:00 98 /min [facility] by [facility] Pulse oximetry Branch Body temperature 2021-02-18 13:14:00 36.33 Siobhan [facility] Body weight 2021-02-18 13:14:00 99.791 kg [facility] BMI 2021-02-18 13:14:00 34.45 kg/m2 [facility] Systolic blood 2021-01-24 13:26:00 137 mm[Hg] [facility] Diastolic blood 2021-01-24 13:26:00 83 [...] 2021-01-24 13:26:00 34.45 kg/m2 [facility] Oxygen saturation in 2021-01-24 13:26:00 95 /min [facility] by [place] [employer] [facility] Pulse oximetry [facility] Systolic blood 2020-12-07 15:00:00 121 mm[Hg] [facility] Diastolic blood 2020-12-07 15:00:00 86 mm[Hg] [facility] Heart rate 2020-12-07 15:00:00 79 /min [facility] Body temperature 2020-12-07 15:00:00 36.22 Siobhan [facility] Respiratory rate 2020-12-07 15:00:00 17 /min [facility] Oxygen saturation in 2020-12-07 15:00:00 94 /min [facility] blood by [employer] [facility] Pulse oximetry [facility] Body weight 2020-12-07 13:31:00 94.348 kg [facility] BMI 2020-12-07 13:31:00 32.57 kg/m2 [facility] Systolic blood 2020-10-28 12:21:00 150 mm[Hg] [facility] Diastolic blood 2020-10-28 12:21:00 78 mm[Hg] [facility] Heart rate 2020-10-28 12:21:00 73 /min [facility] Body temperature 2020-10-28 12:21:00 36.56 Siobhan [facility] Respiratory rate 2020-10-28 12:21:00 11 /min [facility] Oxygen saturation in 2020-10-28 12:21:00 98 /min [facility] blood by [employer] [facility] Pulse oxim[facility] Body weight 2020-10-28 09:00:00 94.666 kg [facility] BMI 2020-10-28 09:00:00 32.68 kg/m2 [facility] Body height 2020-10-25 13:00:00 170.2 cm [facility] Systolic blood 2020-07-29 00:50:00 165 mm[Hg] [facility] Diastolic blood 2020-07-29 00:50:00 103 mm[Hg] [facility] Heart rate 2020-07-29 00:50:00 100 /min [facility] Respiratory rate 2020-07-29 00:50:00 20 /min [facility] Oxygen saturation in 2020-07-29 00:50:00 99 /min [facility] by [facility] Pulse oximetry Branch Body temperature 2020-07-28 18:16:26 36.5 Siobhan [facility] Body height 2020-07-28 18:14:00 170.2 cm [facility] Body weight 2020-07-28 18:14:00 83.915 kg [facility] BMI 2020-07-28 18:14:00 28.98 kg/m2 [facility] Systolic blood 2020-07-29 00:50:00 165 mm[Hg] [facility] Diastolic blood 2020-07-29 00:50:00 103 mm[Hg] [facility] Heart rate 2020-07-29 00:50:00 100 /min [facility] Respiratory rate 2020-07-29 00:50:00 20 /min [facility] Oxygen saturation in 2020-07-29 00:50:00 99 /min [facility] Pulse oximetry Branch Body temperature 2020-07-28 18:16:26 36.5 Siobhan [facility] Body height 2020-07-28 18:14:00 170.2 cm [facility] Body weight 2020-07-28 18:14:00 83.915 kg [facility] BMI 2020-07-28 18:14:00 28.98 kg/m2 [facility] Systolic blood 2020-06-30 15:00:00 145 mm[Hg] [facility] Diastolic blood 2020-06-30 15:00:00 82 mm[Hg] [facility] Heart rate 2020-06-30 15:00:00 88 /min [facility] Respiratory rate 2020-06-30 15:00:00 15 /min [facility] Oxygen saturation in 2020-06-30 15:00:00 97 /min [facility] by [place] [employer] [facility] Pulse oxim[facility] Body temperature 2020-06-30 11:30:00 36.17 Siobhan [facility] Body height 2020-06-30 11:30:00 170.2 cm [facility] Body weight 2020-06-30 11:30:00 83.915 kg [facility] BMI 2020-06-30 11:30:00 28.98 kg/m2 [facility] Systolic blood 2020-06-30 15:00:00 145 mm[Hg] [facility] Diastolic blood 2020-06-30 15:00:00 82 mm[Hg] [facility] Heart rate 2020-06-30 15:00:00 88 /min [facility] Respiratory rate 2020-06-30 15:00:00 15 /min [facility] Oxygen saturation in 2020-06-30 15:00:00 97 /min [facility] by [place] [employer] [facility] Pulse oxim[facility] Body temperature 2020-06-30 11:30:00 36.17 Siobhan [facility] Body height 2020-06-30 11:30:00 170.2 cm [facility] Body weight 2020-06-30 11:30:00 83.915 kg [facility] BMI 2020-06-30 11:30:00 28.98 kg/m2 [facility] Systolic blood 2020-06-23 21:33:48 151 mm[Hg] [facility] [place] [facility] Diastolic blood 2020-06-23 21:33:48 98 mm[Hg] [facility] Heart rate 2020-06-23 21:33:48 98 /min [facility] Respiratory rate 2020-06-23 21:33:48 16 /min [facility] Oxygen saturation in 2020-06-23 21:33:48 97 /min [facility] [place] [employer] [facility] Pulse o[facility] Body temperature 2020-06-23 19:45:00 37 Siobhan [facility] Body height 2020-06-23 19:45:00 170.2 cm [facility] Body weight 2020-06-23 19:45:00 83.915 kg [facility] BMI 2020-06-23 19:45:00 28.98 kg/m2 [facility] Systolic blood 2020-06-23 21:33:48 151 mm[Hg] [facility] Diastolic blood 2020-06-23 21:33:48 98 mm[Hg] [facility] Heart rate 2020-06-23 21:33:48 98 /min [facility] Respiratory rate 2020-06-23 21:33:48 16 /min [facility] Oxygen saturation in 2020-06-23 21:33:48 97 /min [facility] by [place] [employer] [facility] Pulse oxim[facility] Body temperature 2020-06-23 19:45:00 37 Siobhan [facility] Body height 2020-06-23 19:45:00 170.2 cm [facility] Body weight 2020-06-23 19:45:00 83.915 kg [facility] BMI 2020-06-23 19:45:00 28.98 kg/m2 [facility] Systolic blood 2019-11-10 05:41:00 145 mm[Hg] [facility] Diastolic blood 2019-11-10 05:41:00 88 mm[Hg] [facility] Heart rate 2019-11-10 05:41:00 68 /min [facility] Respiratory rate 2019-11-10 05:41:00 18 /min [facility] Oxygen saturation in 2019-11-10 05:41:00 100 /min [facility] blood by [facility] Pulse oximetry Branch Body temperature 2019-11-10 04:15:00 36.61 Siobhan [facility] Body height 2019-11-10 04:15:00 170.2 cm [facility] Body weight 2019-11-10 04:15:00 86.183 kg [facility] BMI 2019-11-10 04:15:00 29.76 kg/m2 [facility] Systolic blood 2019-11-10 05:41:00 145 mm[Hg] [facility] Diastolic blood 2019-11-10 05:41:00 88 mm[Hg] [facility] Heart rate 2019-11-10 05:41:00 68 /min [facility] Respiratory rate 2019-11-10 05:41:00 18 /min [facility] Oxygen saturation in 2019-11-10 05:41:00 100 /min [facility] blood by [facility] Pulse oximetry Branch Body temperature 2019-11-10 04:15:00 36.61 Siobhan [facility] Body height 2019-11-10 04:15:00 170.2 cm [facility] Body weight 2019-11-10 04:15:00 86.183 kg [facility] BMI 2019-11-10 04:15:00 29.76 kg/m2 [facility] Systolic blood 2019-09-29 16:30:00 117 mm[Hg] [facility] Diastolic blood 2019-09-29 16:30:00 78 mm[Hg] [facility] Heart rate 2019-09-29 16:30:00 56 /min [facility] Respiratory rate 2019-09-29 16:30:00 18 /min [facility] Oxygen saturation in 2019-09-29 16:30:00 98 /min [facility] by [facility] Pulse oximetry Branch Body temperature 2019-09-29 14:39:00 36.56 Siobhan [facility] Body height 2019-09-29 14:39:00 170.2 cm [facility] Body weight 2019-09-29 14:39:00 86.183 kg [facility] BMI 2019-09-29 14:39:00 29.76 kg/m2 [facility] Systolic blood 2019-09-29 16:30:00 117 mm[Hg] [facility] Diastolic blood 2019-09-29 16:30:00 78 mm[Hg] [facility] Heart rate 2019-09-29 16:30:00 56 /min [facility] Respiratory rate 2019-09-29 16:30:00 18 /min [facility] Oxygen saturation in 2019-09-29 16:30:00 98 /min [facility] blood by [employer] [facility] Pulse oxim[facility] Body temperature 2019-09-29 14:39:00 36.56 Siobhan [facility] Body height 2019-09-29 14:39:00 170.2 cm [facility] Body weight 2019-09-29 14:39:00 86.183 kg [facility] BMI 2019-09-29 14:39:00 29.76 kg/m2 [facility] Systolic blood 2019-06-16 13:09:00 153 mm[Hg] [facility]iver [facility]ity of pressure [facility] Diastolic blood 2019-06-16 13:09:00 82 mm[Hg] [facility] Respiratory rate 2019-06-16 13:09:00 18 /min [facility] Body height 2019-06-16 13:09:00 170.2 cm [facility] Body weight 2019-06-16 13:09:00 88.451 kg [facility] BMI 2019-06-16 13:09:00 30.54 kg/m2 [facility] Oxygen saturation in 2019-06-16 13:09:00 98 /min [facility] by [employer] [facility] Pulse oxim[facility] Branch Systolic blood 2019-06-16 13:09:00 153 mm[Hg] [facility] Diastolic blood 2019-06-16 13:09:00 82 mm[Hg] [facility] Respiratory rate 2019-06-16 13:09:00 18 /min [facility] Body height 2019-06-16 13:09:00 170.2 cm [facility] Body weight 2019-06-16 13:09:00 88.451 kg [facility] BMI 2019-06-16 13:09:00 30.54 kg/m2 [facility] Oxygen saturation in 2019-06-16 13:09:00 98 /min [facility] by [facility] Pulse oximetry Branch Systolic blood 2019-06-15 17:26:00 190 mm[Hg] [facility] Diastolic blood 2019-06-15 17:26:00 122 mm[Hg] [facility] Heart rate 2019-06-15 17:26:00 97 /min [facility] Body temperature 2019-06-15 17:26:00 36.56 Siobhan [facility] Respiratory rate 2019-06-15 17:26:00 16 /min [facility] Body weight 2019-06-15 17:26:00 90.266 kg [facility] BMI 2019-06-15 17:26:00 31.17 kg/m2 [facility] Oxygen saturation in 2019-06-15 17:26:00 97 /min [facility] blood by [facility] Pulse oximetry Branch Systolic blood 2019-06-15 17:26:00 190 mm[Hg] [facility] Diastolic blood 2019-06-15 17:26:00 122 mm[Hg] [facility] Heart rate 2019-06-15 17:26:00 97 /min [facility] Body temperature 2019-06-15 17:26:00 36.56 Siobhan [facility] Respiratory rate 2019-06-15 17:26:00 16 /min [facility] Body weight 2019-06-15 17:26:00 90.266 kg [facility] BMI 2019-06-15 17:26:00 31.17 kg/m2 [facility] Oxygen saturation in 2019-06-15 17:26:00 97 /min [facility] [place] [facility] Pulse o[facility] Systolic blood 2019 16:22:00 116 mm[Hg] [facility] Diastolic blood 2019 16:22:00 78 mm[Hg] [facility] Heart rate 2019 16:22:00 84 /min [facility] Body temperature 2019 16:22:00 37 Siobhan [facility] Respiratory rate 2019 16:22:00 17 /min [facility] Body height 2019 16:22:00 170.2 cm [facility] Body weight 2019 16:22:00 90.357 kg [facility] BMI 2019 16:22:00 31.20 kg/m2 [facility] Oxygen saturation in 2019 16:22:00 96 /min [facility] blood by [facility] Pulse oximetry Branch Systolic blood 2019 16:22:00 116 mm[Hg] [facility] Diastolic blood 2019 16:22:00 78 mm[Hg] [facility] Heart rate 2019 16:22:00 84 /min [facility] Body temperature 2019 16:22:00 37 Siobhan [facility] Respiratory rate 2019 16:22:00 17 /min [facility] Body height 2019 16:22:00 170.2 cm [facility] Body weight 2019 16:22:00 90.357 kg [facility] BMI 2019 16:22:00 31.20 kg/m2 [facility] Oxygen saturation in 2019 16:22:00 96 /min [facility] by [facility] Pulse oximetry Branch Heart rate 2019-01-25 00:00:00 79 /min [facility] Respiratory rate 2019-01-25 00:00:00 15 /min [facility] Systolic blood 2019-01-24 23:00:00 122 mm[Hg] [facility] Diastolic blood 2019-01-24 23:00:00 68 mm[Hg] [facility] Oxygen saturation in 2019-01-24 23:00:00 93 /min [facility] by [place] [employer] [facility] Pulse oxim[facility] Body temperature 2019-01-24 20:15:00 36.94 Siobhan [facility] Body weight 2019-01-24 20:15:00 86.183 kg [facility] BMI 2019-01-24 20:15:00 28.89 kg/m2 [facility] Heart rate 2019-01-25 00:00:00 79 /min [facility] Respiratory rate 2019-01-25 00:00:00 15 /min [facility] Systolic blood 2019-01-24 23:00:00 122 mm[Hg] [facility] Diastolic blood 2019-01-24 23:00:00 68 mm[Hg] [facility] Oxygen saturation in 2019-01-24 23:00:00 93 /min [facility] by [place] [employer] [facility] Pulse oxim[facility] Body temperature 2019-01-24 20:15:00 36.94 Siobhan [facility] Body weight 2019-01-24 20:15:00 86.183 kg [facility] BMI 2019-01-24 20:15:00 28.89 kg/m2 [facility] Systolic blood 2018-12-22 00:30:00 142 mm[Hg] [facility] Diastolic blood 2018-12-22 00:30:00 90 mm[Hg] [facility] Heart rate 2018-12-22 00:30:00 86 /min [facility] Respiratory rate 2018-12-22 00:30:00 18 /min [facility] Oxygen saturation in 2018-12-22 00:30:00 97 /min [facility] by [place] [employer] [facility] Pulse o[facility] Body temperature 2018-12-21 21:07:00 37.11 Siobhan [facility] Body weight 2018-12-21 21:07:00 86.183 kg [facility] BMI 2018-12-21 21:07:00 28.89 kg/m2 [facility] Systolic blood 2018-12-22 00:30:00 142 mm[Hg] Univer sity of pressure [facility] Diastolic blood 2018-12-22 00:30:00 90 mm[Hg] [facility]ity of [facility] Heart rate 2018-12-22 00:30:00 86 /min [facility] Respiratory rate 2018-12-22 00:30:00 18 /min [facility] Oxygen saturation in 2018-12-22 00:30:00 97 /min [facility] Arterial blood by [facility] Pulse oximetry [place] Body temperature 2018-12-21 21:07:00 37.11 [facility] Body weight 2018-12-21 21:07:00 86.183 kg [facility] BMI 2018-12-21 21:07:00 28.89 kg/m2 [facility] Body weight 2020-02-01 12:04:00 85.548 kg [facility] BMI 2020-02-01 12:04:00 29.54 kg/m2 [facility] Systolic blood 2020-02-01 11:09:39 138 mm[Hg] [facility] pressure Diastolic blood 2020-02-01 11:09:39 78 mm[Hg] [facility] pressure Heart rate 2020-02-01 11:09:39 62 /min [facility] Body temperature 2020-02-01 11:09:39 36.5 Siobhan [facility] Respiratory rate 2020-02-01 11:09:39 18 /min [facility] Oxygen saturation in 2020-02-01 11:09:39 98 /min [facility] Arterial blood by Pulse oximetry Body height 2020-01-28 19:00:00 170.2 cm [facility] Procedures Procedure Date / Time Performing Clinician Source Performed URINALYSIS 2021-11-21 14:04:00 Ciera Seymour [facility] MAGNESIUM 2021-11-21 12:31:00 Ciera Seymour [facility] COMP. METABOLIC PANEL 2021-11-21 12:31:00 Ciera Seymour [facility] ([id number]) Medical Branch CBC WITH DIFF 2021-11-21 12:31:00 Ciera Seymour [facility] CONSENT/REFUSAL FOR 2021-11-21 11:40:05 Doctor Unassigned, No [facility] [place] [facility] CREATINE KINASE 2021-11-19 21:21:00 Jerry Martin [facility] Branch MAGNESIUM 2021-11-19 21:21:00 Jerry Martin [facility] COMP. METABOLIC PANEL 2021-11-19 21:21:00 Jrery Martin [facility] ([id number]) Medical Branch CBC WITH DIFF 2021-11-19 21:21:00 Jerry Martin [facility] URINALYSIS 2021-11-19 21:21:00 Jerry Martin [facility] COVID-19 (ID NOW RAPID 2021-11-19 21:21:00 Jerry Martin [facility] TESTING) Medical Branch CONSENT/REFUSAL FOR 2021-11-19 20:51:07 Doctor Unassigned, No [facility] [place] [facility] Name [facility] CONSENT/REFUSAL FOR 2021-10-08 01:44:28 Doctor Unassigned, No [facility] [place] [facility] Name [facility] Branch EKG-12 LEAD 2021-09-30 02:44:04 Liliana Morris [facility] CREATINE KINASE 2021-09-30 01:37:00 Liliana Morris [facility] MAGNESIUM 2021-09-30 01:37:00 Liliana Morris [facility] TROPONIN I 2021-09-30 01:37:00 [facility] COMP. METABOLIC PANEL 2021-09-30 01:37:00 [id number] ETHANOL 2021-09-30 01:37:00 Liliana Morris [facility] CBC WITH DIFF 2021-09-30 01:37:00 Liliana Morris [facility] CONSENT/REFUSAL FOR 2021-09-30 01:16:32 [facility] Name [facility] CT ANGIOGRAPHY CORONARIES 2021-09-13 18:33:48 Johan Porras [facility] WITHOUT CARDIAC CALCIUM [facility] SCORING TROPONIN I 2021-09-13 01:01:00 Jon Acevedo [facility] XR CHEST 1 VW 2021-09-12 13:33:24 Singer [facility] HB ECG ROUTINE & RHYTHM 2021-09-12 13:25:38 Singer [facility] [address] STRIP [facility] Branch LIPASE 2021-09-12 13:24:00 Singer [facility] MAGNESIUM 2021-09-12 13:24:00 Singer [facility] TROPONIN I 2021-09-12 13:24:00 Singer [facility] COMP. METABOLIC PANEL 2021-09-12 13:24:00 Singer [facility] ([id number]) [facility] CBC WITH DIFF 2021-09-12 13:24:00 Singer [facility] N-TERMINAL PRO-BNP 2021-09-12 13:24:00 Singer Johan [facility] CONSENT/REFUSAL FOR 2021-09-12 13:14:34 [facility] [place] MAGNESIUM 2021-09-06 09:16:00 Alvin Baca [facility] TROPONIN I 2021-09-06 09:16:00 Alvin Baca [facility] BASIC METABOLIC PANEL 2021-09-06 09:16:00 Alvin Baca [facility] (NA, K, CL, CO2, GLUCOSE, Medica l Branch BUN, CREATININE, CA) TROPONIN I 2021-09-05 23:16:00 Alvin Baca [facility] TRANSTHORACIC ECHO (TTE) 2021-09-05 20:10:39 Alvin Baca [facility] COMPLETE W/ CONTRAST Medical [facility] URINE DRUG (IMMUNOASSAY) 2021-09-05 18:40:00 Alvin Baca [facility] - COMPREHENSIVE DRUG Medical [facility] SCREEN DUPLEX VENOUS LEGS 2021-09-05 17:06:18 Lynn Trinidad [facility] BILATERAL - BY VASCULAR [facility] Branch LAB XR CHEST 2 VW 2021-09-05 15:53:16 Lynn Trinidad [facility] URINALYSIS 2021-09-05 15:41:00 Lynn Trinidad [facility] LIPASE 2021-09-05 15:31:00 [facility] TROPONIN I 2021-09-05 15:31:00 [facility] COMP. METABOLIC PANEL 2021-09-05 15:31:00 Lynn Trinidad [facility] ([id number]) [facility] LIPID PANEL ([id number])(TOTAL 2021-09-05 15:31:00 Jaspreet GoffH Julia [facility] CHOLESTEROL, [facility] TRIGLYCERIDES, HDL) CBC WITH DIFF 2021-09-05 15:31:00 [facility] GLYCOSYLATED HEMOGLOBIN 2021-09-05 15:31:00 Jaspreet GoffHJulia [facility] (A1C) [facility] D-DIMER 2021-09-05 15:31:00 [facility] N-TERMINAL PRO-BNP 2021-09-05 15:31:00 Lynn Trinidad [facility] HB ECG ROUTINE & RHYTHM 2021-09-05 15:04:46 Lynn Trinidad [facility] CONSENT/REFUSAL FOR 2021-09-05 14:57:31 Doctor Unassigned, No Un [facility] DIAGNOSIS AND TREATMENT Name [facility] TRANSTHORACIC ECHO (TTE) 2021-08-06 20:45:28 Jaspreet Goff [facility] COMPLETE W/ CONTRAST Medical [facility] CT CHEST PULMONARY 2021-08-06 14:34:41 Raya Jean [facility] ANGIOGRAM Medical Branch MAGNESIUM 2021-08-06 09:38:00 [facility] [place] [facility] TROPONIN I 2021-08-06 09:38:00 Jaspreet Goff [facility] [place] BASIC METABOLIC PANEL 2021-08-06 09:38:00 Jon Acevedo [facility] (NA, K, CL, CO2, GLUCOSE, Medica l Branch BUN, CREATININE, CA) LIPID PANEL ([id number])(TOTAL 2021-08-06 09:38:00 Jaspreet Goff [facility] CHOLESTEROL, Medical Branch TRIGLYCERIDES, HDL) CBC WITH DIFF 2021-08-06 09:38:00 Kristina [facility] D-DIMER 2021-08-06 00:53:00 Kristina [facility] TROPONIN I 2021-08-06 00:52:00 Kristina [facility] DUPLEX VENOUS LEGS 2021-08-05 20:15:00 [facility] - BY VASCULAR Medical Branch LAB PHOSPHORUS 2021-08-05 17:35:00 Jon Acevedo [facility] MAGNESIUM 2021-08-05 17:35:00 Raya Sue [facility] TROPONIN I 2021-08-05 17:35:00 Raya Sue [facility] COMP. METABOLIC PANEL 2021-08-05 17:35:00 Raya Sue [facility] ([id number]) Medical Branch CBC WITH DIFF 2021-08-05 17:35:00 Raya Sue [facility] N-TERMINAL PRO-BNP 2021-08-05 17:35:00 Raya Sue [facility] Medical [place] COVID-19 (ID NOW RAPID 2021-08-05 17:35:00 Raya Sue [facility] TESTING) Medical Branch LAB ONLY COVID 2021-08-05 17:35:00 Raya Sue [facility] XR CHEST 1 VW 2021-08-05 17:03:55 Raya Sue [facility] HB ECG ROUTINE & RHYTHM 2021-08-05 15:57:49 Raya Sue [facility] STRIP Medical Branch CONSENT/REFUSAL FOR 2021-08-05 15:06:08 Doctor Unassigned, No Un [facility] DIAGNOSIS AND TREATMENT Name Medical Branch TROPONIN I 2021-06-05 17:30:00 Jennifer Shea [facility] XR CHEST 1 VW 2021-06-05 15:27:49 Shabbir Jennifer [facility] LIPASE 2021-06-05 15:11:00 Jennifer Shea [facility] TROPONIN I 2021-06-05 15:11:00 Jennifer Shea [facility] COMP. METABOLIC PANEL 2021-06-05 15:11:00 Jennifer Shea [facility] ([id number]) Medical Branch CBC WITH DIFF 2021-06-05 15:11:00 Shabbir [facility] PROTHROMBIN TIME / INR 2021-06-05 15:11:00 Jennifer Shea [facility] ACTIVATED PARTIAL 2021-06-05 15:11:[address] [facility] COVID-19 (ID NOW RAPID 2021-06-05 15:11:00 Jennifer hSea [facility] TESTING) [facility] XR CHEST 1 VW 2021-05-27 16:27:27 Jennifer Shea [facility] LIPASE 2021-05-27 15:59:00 Jennifer Shea [facility] TROPONIN I 2021-05-27 15:59:00 Jennifer Shea [facility] COMP. METABOLIC PANEL 2021-05-27 15:59:00 Jennifer Shea [facility] ([id number]) [facility] Branch CBC WITH DIFF 2021-05-27 15:59:00 Shabbir [facility] PROTHROMBIN TIME / INR 2021-05-27 15:59:00 Jennifer Shea [facility] ACTIVATED PARTIAL 2021-05-27 15:59:[address] [facility] URINALYSIS 2021-05-27 15:59:00 Shabbir Jennifer [facility] COVID-19 (ID NOW RAPID 2021-05-27 15:59:00 Jennifer Shea [facility] TESTING) [facility] [place] URINE DRUG (IMMUNOASSAY) 2021-05-27 15:59:00 Jennifer Shea [facility] SCREEN W/O REFLEX NOTICE OF PRIVACY 2021-05-27 15:50:40 Doctor Unassigned, No [facility] Name Medical Branch CONSENT/REFUSAL FOR 2021-05-27 15:50:22 [facility] Name Medical Branch TROPONIN I 2021-05-05 12:18:00 [facility] CREATINE KINASE 2021-05-05 09:25:00 [facility] TROPONIN I 2021-05-05 09:25:00 [facility] PROCALCITONIN 2021-05-05 09:25:00 [facility] PHOSPHORUS 2021-05-05 02:50:00 [facility] URIC ACID 2021-05-05 02:50:00 [facility] MAGNESIUM 2021-05-05 02:50:00 [facility] TROPONIN I 2021-05-05 02:50:00 Shelley Shahid [facility] THYROID STIMULATING 2021-05-05 02:50:00 Laura Pedraza [facility] HORMONE [facility] LIPID PANEL ([id number])(TOTAL 2021-05-05 02:50:00 Laura [facility]raza [facility] TRIGLYCERIDES, HDL) ETHANOL 2021-05-05 02:50:00 John paco [facility] N-TERMINAL PRO-BNP 2021-05-05 02:50:00 John paco [facility] XR CHEST 1 VW 2021-05-05 00:46:11 Ciera Seymour [facility] LIPASE 2021-05-05 00:37:00 Ciera Seymour [facility] TROPONIN I 2021-05-05 00:37:00 Ciera Seymour [facility] COMP. METABOLIC PANEL 2021-05-05 00:37:00 Ciera Seymour [facility] ([id number]) Medical Branch CBC WITH DIFF 2021-05-05 00:37:00 Ciera Seymour [facility] GLYCOSYLATED HEMOGLOBIN 2021-05-05 00:37:00 Laura Pedraza [facility] (A1C) Medical Branch PROTHROMBIN TIME / INR 2021-05-05 00:37:[address] [facility] D-DIMER 2021-05-05 00:37:00 Shelley Shahid [facility] ACTIVATED PARTIAL 2021-05-05 00:37:00 Ciera Seymour [facility] COVID-19 (ID NOW RAPID 2021-05-05 00:37:00 Ciera Seymour [facility] TESTING) Medical Branch XR HAND 3+ VW RIGHT 2021-03-31 14:51:57 Ciera Seymour [facility] CONSENT/REFUSAL FOR 2021-03-31 14:35:47 Doctor Unassigned, No [facility] DIAGNOSIS AND TREATMENT Name Medical Branch XR CHEST 1 VW 2021-02-18 13:49:48 Singer [facility] MAGNESIUM 2021-02-18 13:35:00 Singer [facility] TROPONIN I 2021-02-18 13:35:00 Singer [facility] COMP. METABOLIC PANEL 2021-02-18 13:35:00 Johan Porras [facility] ([id number]) [facility] Branch LIPID PANEL ([id number])(TOTAL 2021-02-18 13:35:00 Johan Porras [facility] CHOLESTEROL, [facility] Branch TRIGLYCERIDES, HDL) CBC WITH DIFF 2021-02-18 13:35:00 Singer [facility] D-DIMER 2021-02-18 13:35:00 Singer [facility] ADC,CLC OR LCC ONLY - 2021-02-18 13:35:00 Singer [facility] INFLUENZA A & B DIRECT Medical [place] ANTIGEN N-TERMINAL PRO-BNP 2021-02-18 13:35:00 Johan Porras [facility] Medical Branch COVID-19 (ID NOW RAPID 2021-02-18 13:35:00 Johan Porras [facility] TESTING) Medical Branch CONSENT/REFUSAL FOR 2021-02-18 13:07:47 Doctor Unassigned, No [facility] Name Medical Branch XR CHEST 1 VW 2021-01-24 14:27:39 Singer [facility] COMP. METABOLIC PANEL 2021-01-24 14:22:00 Johan Porras [facility] ([id number]) Medical Branch CBC WITH DIFF 2021-01-24 14:22:00 Singer [facility] URINALYSIS 2021-01-24 14:22:00 Singer [facility] COVID-19 (ID NOW RAPID 2021-01-24 13:30:00 [facility] Medical Branch NOTICE OF PRIVACY 2021-01-24 13:21:27 Doctor Unassigned, No [facility] Name Medical Branch CONSENT/REFUSAL FOR 2021-01-24 13:20:24 Doctor Unassigned, No Un [facility] DIAGNOSIS AND TREATMENT Name Medical Branch LIPASE 2020-12-07 13:44:00 Jennifer Shea [facility] COMP. METABOLIC PANEL 2020-12-07 13:44:00 Jennifer Shea [facility] ([id number]) Medical Branch CBC WITH DIFF 2020-12-07 13:44:00 Jennifer Shea [facility] URINALYSIS 2020-12-07 13:44:00 Jennifer Shea [facility] ADC, CLC OR LCC ONLY - 2020-12-07 13:44:00 Jennifer Shea [facility] RSV Medical Branch COVID-19 (ID NOW RAPID 2020-12-07 13:44:00 Jennifer Shea [facility] TESTING) Medical Branch URINE DRUG (IMMUNOASSAY) 2020-12-07 13:44:00 Jennifer Shea [facility] - COMPREHENSIVE DRUG Medical Bra nch SCREEN W/O REFLEX CONSENT/REFUSAL FOR 2020-12-07 13:20:39 Doctor Unassigned, No Un [facility] DIAGNOSIS AND TREATMENT Name Medical Branch COMP. METABOLIC PANEL 2020-10-26 09:48:00 Laura Pedraza [facility] ([id number]) Medical Branch MAGNESIUM 2020-10-25 14:14:00 Alvin Baca [facility] BASIC METABOLIC PANEL 2020-10-25 14:14:00 Alvin Baca [facility] (NA, K, CL, CO2, GLUCOSE, Medica l Branch BUN, CREATININE, CA) US ABDOMEN COMPLETE 2020-10-24 23:47:12 Alvin Baca [facility] TRANSTHORACIC ECHO (TTE) 2020-10-24 20:59:43 Alvin Baca [facility] COMPLETE W/ CONTRAST Medical [facility] TROPONIN I 2020-10-24 16:13:00 Alvin Baca [facility] HB ECG ROUTINE & RHYTHM 2020-10-24 16:02:52 Alvin Baca [facility] STRIP [facility] Branch CRITICAL CARE 2020-10-24 13:45:35 Jennifer Shea [facility] FREE T4 2020-10-24 12:50:00 Shabbir [facility] COVID-19 (ID NOW RAPID 2020-10-24 12:43:00 Jennifer Shea [facility] TESTING) Medical Branch LAB ONLY COVID 2020-10-24 12:43:00 Jennifer Shea [facility] INTERPRETATION [facility] URINE DRUG (IMMUNOASSAY) 2020-10-24 11:52:00 Johan Porras [facility] - COMPREHENSIVE DRUG Medical Bra [facility] SCREEN URINALYSIS 2020-10-24 11:52:00 Johan Porras [facility] CT CHEST PULMONARY 2020-10-24 11:46:10 Johan Porras [facility] ANGIOGRAM Medical Branch POCT GLUCOSE (AUTOMATED) 2020-10-24 11:19:00 Johan Porras [facility] CREATINE KINASE 2020-10-24 11:18:00 Jennifer Shea [facility] LIPASE 2020-10-24 11:18:00 Shabbir Jennifer [facility] MAGNESIUM 2020-10-24 11:18:00 Phuong [facility] TROPONIN I 2020-10-24 11:18:00 Singer [facility] THYROID STIMULATING 2020-10-24 11:18:00 Jennifer Shea [facility] COMP. METABOLIC PANEL 2020-10-24 11:18:00 Singer [facility] ([id number]) Medical Branch ETHANOL 2020-10-24 11:18:00 Shabbir [facility] CBC WITH DIFF 2020-10-24 11:18:00 Singer [facility] PROTHROMBIN TIME / INR 2020-10-24 11:18:00 Singer [facility] D-DIMER 2020-10-24 11:18:00 Singer [facility] ACTIVATED PARTIAL 2020-10-24 11:18:00 [facility] N-TERMINAL PRO-BNP 2020-10-24 11:18:00 Singer Johan [facility] HB ECG ROUTINE & RHYTHM 2020-10-24 11:12:38 Singer [facility] EMERGENCY DEPARTMENT 2020-10-24 05:01:00 Doctor Unassigned, No U [facility] DOCUMENTS Name Medical Branch URINALYSIS 2020-07-28 18:29:00 Shabbir [facility] ADC / LCC - DRUG SCREEN 2020-07-28 18:29:00 Shabbir [facility] Branch TROPONIN I 2020-07-28 18:23:00 Shabbir Jennifer [facility] FREE T4 2020-07-28 18:23:00 Shabbir Jennifer [facility] THYROID STIMULATING 2020-07-28 18:23:00 Jennifer Shea [facility] HEPATIC FUNCTION PANEL 2020-07-28 18:23:[address] [facility] ([id number]) (ALB,T.PRO,BILI Medical Branch T,BU/BC,ALT,AST,ALK PHOS) BASIC METABOLIC PANEL 2020-07-28 18:23:00 Jennifer Shea [facility] (NA, K, CL, CO2, GLUCOSE, Medica l Branch BUN, CREATININE, CA) CBC WITH DIFF 2020-07-28 18:23:00 Shabbir Jennifer [facility] PROTHROMBIN TIME / INR 2020-07-28 18:23:00 Jennifer Shea [facility] ACTIVATED PARTIAL 2020-07-28 18:23:00 [facility]abbir [facility] THRMPLAS [place] [facility] N-TERMINAL PRO-BNP 2020-07-28 18:23:00 Jennifer Shea [facility] COVID-19 (ID NOW RAPID 2020-07-28 18:23:00 Jennifer Shea [facility] TESTING) Medical Branch HB ECG ROUTINE & RHYTHM 2020-07-28 18:15:15 Jennifer Shea [facility] CONSENT/REFUSAL FOR 2020-07-28 18:07:43 [facility] Name [facility] TROPONIN I 2020-06-30 15:28:00 Shabbir [facility] TROPONIN I 2020-06-30 13:36:00 [facility] METABOLIC PANEL 2020-06-30 12:02:00 Ciera Seymour [facility] (NA, K, CL, CO2, GLUCOSE, Medica l Branch BUN, CREATININE, CA) CBC WITH DIFF 2020-06-30 12:02:00 Ciera Seymour [facility] XR ANKLE <3 VW LEFT 2020-06-23 20:29:12 Shelley Shahid [facility] XR FOOT <3 VW LEFT 2020-06-23 20:29:12 Shelley Shahid [facility] NOTICE OF PRIVACY 2020-06-23 19:41:37 Doctor Unassigned, No [facility] PRACTICES Name Medical Branch CONSENT/REFUSAL FOR 2020-06-23 19:41:09 Doctor Unassigned, No [facility]REATMENT Name Medical Branch HEMOGLOBIN A1C 2020-01-29 11:10:00 Lelo Pelaez [facility] LIPID PANEL 2020-01-29 11:10:00 [facility] HEPATITIS ACUTE PANEL 2020-01-29 11:10:00 [facility] GGT 2020-01-29 11:10:00 [facility] MAGNESIUM LEVEL 2020-01-29 11:10:00 [facility] HIV AG/AB COMBINATION 2020-01-29 11:10:00 [facility] XR CHEST 1 VW 2019-11-10 04:30:10 Clovis Thomas [facility] TROPONIN I 2019-11-10 04:20:00 Clovis Thomas [facility] COMP. METABOLIC PANEL 2019-11-10 04:20:00 Clovis Thomas [facility] ([id number]) [facility] CBC WITH DIFFERENTIAL 2019-11-10 04:20:00 Clovis Thomas [facility] PROTHROMBIN TIME / INR 2019-11-10 04:20:00 Clovis Thomas [facility] ACTIVATED PARTIAL 2019-11-10 04:20:00 Clovis Thomas [facility]12 LEAD 2019-11-10 04:19:36 Clovis Thomas [facility] COMP. METABOLIC PANEL 2019-09-29 15:23:00 Singer [facility] ([id number]) [facility] CBC WITH DIFFERENTIAL 2019-09-29 15:23:00 Singer Johan [facility] URINALYSIS 2019-09-29 15:23:00 Singer [facility] CONSENT/REFUSAL FOR 2019-09-29 14:19:48 Doctor Unassigned, No [facility] DIAGNOSIS AND TREATMENT Name [facility] [place] NOTICE OF PRIVACY 2019-09-29 14:19:33 Doctor Unassigned, No Univ [facility] PRACTICES Name [facility] Branch EKG-12 LEAD 2019-06-16 13:22:02 Shabbir [facility] LIPASE 2019-06-16 13:22:00 Shabbir [facility] TROPONIN I 2019-06-16 13:22:00 Shabbir Jennifer [facility] COMP. METABOLIC PANEL 2019-06-16 13:22:00 Jennifer Shea [facility] ([id number]) [facility] CBC WITH DIFFERENTIAL 2019-06-16 13:22:00 Jennifer Shea [facility] PROTHROMBIN TIME / INR 2019-06-16 13:22:00 Jennifer Shea [facility] ACTIVATED PARTIAL 2019-06-16 13:22:00 [facility] XR CHEST 1 VW 2019-06-15 18:27:52 Zehra [facility] MAGNESIUM 2019-06-15 18:22:00 Zehra [facility] TROPONIN I 2019-06-15 18:22:00 Zehra [facility] COMP. METABOLIC PANEL 2019-06-15 18:22:[address] [facility] ([id number]) [facility] CBC WITH DIFFERENTIAL 2019-06-15 18:22:00 Zehra [facility] EKG-12 LEAD 2019-06-15 18:10:41 Zehra, [facility] NOTICE OF PRIVACY 2019-06-15 17:21:46 Doctor Unassigned, No [facility] PRACTICES Name [facility] CONSENT/REFUSAL FOR 2019-06-15 17:16:40 Doctor [facility]igned, [facility] DI[facility] TREATMENT Name [facility] POCT GRP A STREP 2019 16:24:00 [facility] (MOLECULAR) [facility] POCT FLU A AND B 2019 16:23:00 [facility] (MOLECULAR) [facility] NO SHOW OR MISSED 2019 16:08:34 Doctor Unassigned, No [facility] APPOINTMENT POLICY Name [facility] ACKNOWLEDGEMENT LIPASE 2019-01-24 21:38:00 Jerry Martin [facility] TROPONIN I 2019-01-24 21:38:00 Jerry Martin [facility] COMP. METABOLIC PANEL 2019-01-24 21:38:00 Jerry Martin [facility] ([id number]) Medical Branch URINALYSIS 2019-01-24 21:38:00 Jerry Martin [facility] ADC / LCC - DRUG SCREEN 2019-01-24 21:38:00 Jerry Martin [facility] TRIAGE Medical Branch CBC WITH DIFFERENTIAL 2019-01-24 21:38:00 Jerry Martin [facility] EKG-12 LEAD 2019-01-24 21:01:42 Jerry Martin [facility] CONSENT/REFUSAL FOR 2019-01-24 19:55:39 Doctor Unassigned, No [facility] DIAGNOS[facility] TREATMENT Name Medical Branch XR ABDOMEN ACUTE SERIES 2018-12-21 23:23:19 [facility] LIPASE 2018-12-21 22:19:00 [facility] MAGNESIUM 2018-12-21 22:19:00 Jerem[facility] COMP. METABOLIC PANEL 2018-12-21 22:19:00 [facility] ([id number]) [facility] CBC WITH DIFFERENTIAL 2018-12-21 22:19:00 [facility] URINALYSIS 2018-12-21 22:19:00 [facility] CONSENT/REFUSAL FOR 2018-12-21 20:57:44 Doctor Unassigned, No [facility] DI[facility]NOSIS [facility] TREATMENT Name [facility] Encounters Start End Encounter Admission Attending Care Care Encounter Source Date/Time Date/Time Type Type Clinicians Facility Department ID 2021-03-12 Emergency [facility] [id number] Univers 05:38:42 [facility] of [facility] 2021-03-11 Emergency [facility] [id number] Univers 23:00:35 ity of [facility] 2021-03-11 Emergency [facility] [id number] Univers 11:56:05 ity of [facility] 2021-03-11 Emergency [facility] [id number] Univers 01:30:29 ity of [facility] 2021-03-10 Emergency [facility] [id number] Univers 07:20:38 ity of [facility] 2021-03-10 Emergency [facility] [id number] Univers 00:13:36 ity of [facility] 2021-03-09 Emergency [facility] [id number] Univers 23:32:17 ity of [facility] 2021-03-08 Emergency [facility] [id number] Univers 04:08:07 ity of [facility] 2021-03-08 Emergency [facility] [id number] Univers 00:53:49 ity of [facility] 2021-03-07 Emergency [facility] [id number] Univers 21:49:21 ity of [facility] 2021-11-21 2021-11-21 Emergency X LION [facility] ERT [id number] Univers 07:02:00 10:22:00 CIERA ity of [facility] 2021-11-21 2021-11-21 Emergency [facility] [id number] Univers 07:02:00 10:22:00 Ciera PATTON [id number] ity of [place] [id number] [facility] [id number] [address] 2021-11-19 2021-11-19 Outpatient X LIBRA [facility] ERIC [id number] Univers 16:02:00 18:33:00 VIC ity [facility] 2021-11-19 2021-11-19 Emergency MartinMichaelbrittany Brownlee [facility] [id number] Univers 16:02:00 18:33:00 Vic Smyth [id number] ity of [place] [id number] [facility] [id number] [address] 2021-10-07 2021-10-07 Emergency X FATIMAH [facility] ERT [id number] Univers 21:19:00 22:45:00 JOESPH ity [facility] 2021-10-07 2021-10-07 [facility] [id number] Univers 21:19:00 22:45:00 Joesph PATTON [id number] [facility] [id number] [facility] [id number] [place] [id number] Branch 2021-09-29 2021-09-29 Emergency X BELGICA, [facility] ERT [id number] Univers 20:24:00 22:17:00 LILIANA it y [facility] 2021-09-29 2021-09-29 Emergency Belgica, [facility] [id number] Univers 20:24:00 22:17:00 Liliana PATTON [id number] ity [facility] [id number] [facility] [id number] [address] 2021-09-12 2021-09-13 Outpatient X KRISTINA [facility] ERIC [id number] Univers 08:19:00 19:45:00 JON itregine [facility] 2021-09-12 2021-09-13 Emergency Johan Porras [facility] [id number] Univers 08:19:00 19:45:00 Jon Acevedo [id number] ity [facility] [id number] [facility] [id number] [address] 2021-09-05 2021-09-06 Outpatient X PHUONG [facility] ERIC [id number] Univers 10:03:00 15:55:00 ALVIN regine [facility] 2021-09-05 2021-09-06 Emergency Lynn Trinidad [facility] [id number] [id number] Univers 10:03:00 15:55:00 Alvin Baca [id number] ity [facility] [id number] [facility] [id number] [address] 2021-08-05 2021-08-07 Outpatient X PHUONG [facility] ERIC [id number] Univers 10:16:00 12:38:00 ALVIN regine [facility] 2021-08-05 2021-08-07 Emergency Raya Sue [facility] [id number] Univers 10:16:00 12:38:00 Jon Acevedo [id number] ity of [place] Alvin OLVERAMARIA G [id number] [facility] [id number] [facility] 081 Branch 2021-07-17 2021-07-18 Emergency LOWELL, [facility] [id number] [place] 00:00:00 00:00:00 [address] 2021-07-15 2021-07-17 Emergency ER ZALDIVAR, [facility] Emergency [id number] SLE 23:45:00 12:57:00 LEONIDAS 2021-07-16 2021-07-16 Outpatient BCM [facility] [id number] [facility] 00:00:00 23:59:00 Colleezio e of Medicin e 2021-06-05 2021-06-05 [facility] [id number] Univers 09:04:00 13:12:00 JENNIFER itregine [facility] 2021-06-05 2021-06-05 [facility] 1.2.756.605 [id number] Univers 09:04:00 13:12:00 Jennifer PATTON 350.1.13.10 i ty of [place] 4.2.7.2.686 [facility] [phone] [address] 2021-05-27 2021-05-27 Emergency [facility] ERT [id number] Univers 09:58:00 12:18:00 JENNIFER itregine of [facility] 2021-05-27 2021-05-27 Emergency [facility] 1.2.125.023 [id number] Univers 09:58:00 12:18:00 Jennifer PATTON 350.1.13.10 i ty of [facility] 4.2.7.2.686 [facility] [phone] [facility] 084 [place] 2021-05-27 2021-05-27 Orders Doctor MCGINNIS 1.2.840.114 [id number] Univers 00:00:00 00:00:00 Only Unassigned, KAY 350.1.13.10 ity of [place] [facility] 4.2.7.2.686 Manfred [phone] [facility] 009 Branch 2021-05-04 2021-05-05 Outpatient X KRISTINA [facility] [id number] Univers 18:35:00 12:45:00 JON farley [facility] 2021-05-04 2021-05-05 Emergency Shelley Shahid [facility] 1.2.840. 114 [id number] Univers 18:35:00 12:45:00 Laura Pedraza 350.1.13.10 ity of Jon AcevedoMARIA G 4.2.7.2.686 [facility] [id number] [place] [address] Branch 2021-03-31 2021-03-31 Emergency [facility] ERT [id number] Univers 08:36:00 10:17:00 CIERA miguelito [facility] 2021-03-31 2021-03-31 Emergency [facility] 1.2.840.114 [id number] Univers 08:36:00 10:17:00 Ciera PATTON 350.1.13.10 ity of [facility] 4.2.7.2.686 [facility] [phone] [place] [address] Branch 2021-02-18 2021-02-18 Emergency [facility] 1.2.943.007 0126 0873 Univers 08:21:00 11:20:00 Johan Patton 350.1.13.10 i ty of [place] 4.2.7.2.686 [facility] [phone] [place] [address] Branch 2021-01-24 2021-01-24 Emergency [facility] 1.2.850.713 [id number] [id number] Univers 08:32:00 10:23:00 Johan Patton 350.1.13.10 i ty of [place] 4.2.7.2.686 [facility] [phone] [place] [address] Branch 2020-12-07 2020-12-07 Emergency [facility] 1.2.788.712 [id number] 8809 Univers 08:25:00 10:28:00 Jennifer Patton 350.1.13.10 i ty of [place] 4.2.7.2.686 [facility] [phone] [place] [address] Branch 2020-10-30 2020-10-30 Transition Nisha Aguilar 1.2.840.114 [id number] Univers 00:00:00 00:00:00 of Karley Crystaly 350.1.13.10 ity of [place] 4.2.7.2.686 [facility] [phone] [facility] 403 Branch 2020-10-24 2020-10-28 [facility] Jhoan Porras [facility] 1.2.840.1 14 [id number] [facility] 06:11:00 10:50:00 Encounter Alvin Baca 350.1.13.10 ity of [place] 4.2.7.2.686 [facility] [id number] [facility] 080 Branch 2020-07-28 2020-07-28 Emergency [facility] 1.2.276.310 [id number] 9881 13:17:00 20:00:00 Jennifer Patton 350.1.13.10 [place] 4.2.7.2.686 [place] [id number] [facility] 2020-07-28 2020-07-28 [facility] 1.2.968.839 [id number] 9881 [facility] 13:17:00 20:00:00 Jennifer Patton 350.1.13.10 i ty of [place] 4.2.7.2.686 [facility] [id number] [place] [address] [place] 2020-06-30 2020-06-30 Emergency [facility] 1.2.840.114 [id number] 05:26:00 10:11:00 Ciera Patton 350.1.13.10 [place] 4.2.7.2.686 [place] [phone] [facility] 2020-06-30 2020-06-30 Emergency [facility] 1.2.840.114 [id number] [facility] 05:26:00 10:11:00 Ciera Patton 350.1.13.10 ity of [place] 4.2.7.2.686 [facility] [id number] [place] [address] Branch 2020-06-23 2020-06-23 Emergency Shelley Shahid [facility] 1.2.840.114 81 [id number] 13:46:00 15:46:00 Margarita Dumas 350.1.13.10 [place] 4.2.7.2.686 [place] [id number] 084 2020-06-23 2020-06-23 Emergency Shelley Shahid [facility] 1.2.840.114 [id number] Univers 13:46:00 15:46:00 Margarita Dumas 350.1.13.10 i ty of [place] 4.2.7.2.686 [facility] [phone] [address] 2020-01-28 2020-02-01 [facility] 1.2.840.1 [id number] Methodi 14:08:19 14:20:00 Encounter Nelly AlasJulia 96888.1.[address] 3.430.2.7 Hospit a .3.006587 l .8 2019-11-09 2019-11-10 [facility] 1.2.847.998 [id number] 4804 23:06:12 01:26:00 Clovis Pugh Dumas 350.1.13.10 [place] 4.2.7.2.686 [place] [id number] [facility] 2019-11-09 2019-11-10 [facility] 1.2.375.748 5190 4804 [facility] 23:06:12 01:26:00 Clovis Knightton 350.1.13.10 i ty of [place] 4.2.7.2.686 [facility] [id number] [address] 2019-09-29 2019-09-29 Emergency [facility] 1.2.786.359 [id number] 6326 09:39:50 11:47:00 Johan Patton 350.1.13.10 [place] 4.2.7.2.686 [place] [id number] [facility] 2019-09-29 2019-09-29 Emergency [facility] 1.2.021.241 [id number] 6326 [facility] 09:39:50 11:47:00 Johan Knightton 350.1.13.10 i ty of [place] 4.2.7.2.686 [facility] [phone] [address] 2019-06-16 2019-06-16 Emergency Mary BethFormerly [facility] 1.2.890.181 [id number] 4624 07:08:27 08:57:00 Joesph Patton 350.1.13.10 [place] 4.2.7.2.686 [place] [id number] [facility] 2019-06-16 2019-06-16 Emergency Mary BethFormerly [facility] 1.2.098.940 2171 4624 Univers 07:08:27 08:57:00 Joesph Patton 350.1.13.10 ity of [place] 4.2.7.2.686 [facility] [id number] [place] [address] Branch 2019-06-16 2019-06-16 Emergency X [facility] ERT [id number] Univers 07:08:27 08:57:00 JOESPH ity [facility] 2019-06-15 2019-06-15 Emergency Zehra K [facility] 1.2.840.114 [id number] 11:30:00 13:30:00 Margarita Sal 350.1.13.10 [place] 4.2.7.2.686 [place] [id number] [facility] 2019-06-15 2019-06-15 Emergency Shelley Shahid [facility] 1.2.840.114 [id number] Univers 11:30:00 13:30:00 Margarita Knightton 350.1.13.10 i ty of [place] 4.2.7.2.686 [facility] [id number] [place] [address] Branch 2019-06-15 2019-06-15 Orders Doctor MCGINNIS 1.2.840.114 [id number] 00:00:00 00:00:00 Only Unassigned, KAY 350.1.13.10 [facility] 4.2.7.2.686 [id number] 009 2019-06-15 2019-06-15 Orders Doctor RAS 1.2.840.114 [id number] Univers 00:00:00 00:00:00 Only Unassigned, KAY 350.1.13.10 ity of [place] [facility] 4.2.7.2.686 [facility] [phone] [place] [address] Branch 2019-06-06 2019-06-06 Letter [facility], [facility] 1.2.840.114 [id number] 00:00:00 00:00:00 (Out) Neurology [facility] 350.1.13.10 [facility] 4.2.7.2.686 [id number] 092 2019-06-06 2019-06-06 Letter Clinic, [facility] 1.2.840.114 [id number] Univers 00:00:00 00:00:00 (Out) Neurology [facility] 350.1.13.10 ity of [facility] 4.2.7.2.686 [place] [id number] [place] 784582 [place] 2019 2019 Urgent Levon [facility] 1.2.840.114 [id number] 10:16:26 10:55:54 Care July [facility] 350.1.13.10 Surgical 4.2.7.2.686 Specialti [phone] [address] 2019 2019 Urgent Levon [facility] 1.2.840.114 [id number] Univers 10:16:26 10:55:54 Care Unknown, [facility] Health 350.1.13.10 ity of Surgical 4.2.7.2.686 Manfred as Specialti [phone] Ut dical [address] 2019 2019 Orders Doctor RAS 1.2.840.114 [id number] 00:00:00 00:00:00 Only Unassigned, KAY 350.1.13.10 [facility] 4.2.7.2.686 [id number] 009 2019 2019 Orders Doctor RAS 1.2.840.114 [id number] Univers 00:00:00 00:00:00 Only Unassigned, KAY 350.1.13.10 ity of [place] [facility] 4.2.7.2.686 Manfred as [id number] [facility] 009 [place] 2019-05-15 2019-05-15 Emergency Ray PERSON [facility] ERT [id number] Univers 20:18:44 22:11:00 DEMOND farley of [facility] 2019-01-24 2019-01-24 Emergency Chantel [facility] 1.2.677.306 [id number] 9342 15:49:15 22:27:00 Jerry Patton 350.1.13.10 [place] 4.2.7.2.686 [place] [phone] [facility] 2019-01-24 2019-01-24 Emergency [facility] 1.2.736.014 [id number] 9342 [facility] 15:49:15 22:27:00 Jerry Patton 350.1.13.10 i ty of [place] [address]7.[address] [place] [address] [phone] [place] [address] Branch 2019-01-24 2019-01-24 Orders Doctor MCGINNIS 1.2.840.114 [id number] 00:00:00 00:00:00 Only Unassigned, KAY 350.1.13.10 [facility] .2.7.2.68 [id number] 009 2019-01-24 2019-01-24 Orders Doctor MCGINNIS 1.2.840.114 [id number] Univers 00:00:00 00:00:00 Only Unassigned, KAY 350.1.13.10 ity of [place] [facility] 4.2.7.2.686 [facility] [id number] [place] [address] Branch 2018-12-21 2018-12-21 [facility] 1.2.650.846 [id number] 17:07:20 19:42:00 Demond Patton 350.1.13.10 [place] 4.2.7.2.686 [place] [id number] [facility] 2018-12-21 2018-12-21 [facility] 1.2.717.851 [id number] 4577 [facility] 17:07:20 19:42:00 Demond Patton 350.1.13.10 i ty of [place] [address] [place] [address] [id number] [place] [address] Branch 2018-12-21 2018-12-21 Orders Doctor MCGINNIS 1.2.840.114 [id number] 00:00:00 00:00:00 Only Unassigned, KAY 350.1.13.10 [facility] 4.2.7.2.686 [id number] 009 2018-12-21 2018-12-21 Orders Doctor RAS 1.2.840.114 [id number] Univers 00:00:00 00:00:00 Only Unassigned, KAY 350.1.13.10 ity of [place] [facility] 4.2.7.2.686 Manfred as [phone] [place] [address] Branch Results Test Description Test Time Test Comments Results Result Comments Source CBC WITH DIFF 2021-11-19 22:16:38 Test Item Value Reference Range Interpretation Comme nts WBC (test code = 6690-2) See_Comment H [A utomated message] The system which ge nerated this result transmit luis reference range: 4.20 - 1 0.70 10*3/?L. The reference r javier was not used to interpr et this result as normal/abnor mal. RBC (test code = 789-8) See_Comment [Au tomated message] The system which ge nerated this result transmit luis reference range: 4.26 - 5 .52 10*6/?L. The reference r javier was not used to interpr et this result as normal/abnor mal. HGB (test code = 718-7) 15.3 g/dL 12.2-16.4 HCT (test code = 4544-3) 44.6 % 38.4-49.3 MCV (test code = 787-2) 86.4 fL 81.7-95.6 MCH (test code = 785-6) 29.7 pg 26.1-32.7 MCHC (test code = 786-4) 34.3 g/dL 31.2-35 RDW-SD (test code = 93390-2) 41.1 fL 38.5-51.6 RDW-CV (test code = 788-0) 13.1 % 12.1-15.4 PLT (test code = 777-3) See_Comment [Au tomated message] The system which ge nerated this result transmit luis reference range: 150 - 32 8 10*3/?L. The reference range was not used to interpret th is result as normal/abnormal . MPV (test code = 91281-8) 9.9 fL 9.8-13 NRBC/100 WBC (test code = See_Comment [ Automated message] The 7039130778) system which ge nerated this result transmit luis reference range: 0.0 - 10 .0 /100 WBCs. The reference r javier was not used to interpr et this result as normal/abnor mal. NRBC x10^3 (test code = See_Comment [Au tomated message] The 2372531667) system which ge nerated this result transmit luis reference range: 10*3/?L. The reference range was not u sed to interpret this result as normal/abnormal . GRAN MAT (NEUT) % (test code 61.2 % = 770-8) IMM GRAN % (test code = 0.70 % 5010965453) LYMPH % (test code = 736-9) 20.2 % MONO % (test code = 5905-5) 14.0 % EOS % (test code = 713-8) 3.3 % BASO % (test code = 706-2) 0.6 % GRAN MAT x10^3(ANC) (test 8.05 10*3/uL 1.99-6.95 H code = 1782923694) IMM GRAN x10^3 (test code = 0.09 10*3/uL 0-0.06 H 6748273047) LYMPH x10^3 (test code = 2.65 10*3/uL 1.09-3.23 731-0) MONO x10^3 (test code = 1.84 10*3/uL 0.36-1.02 H 742-7) EOS x10^3 (test code = 0.43 10*3/uL 0.06-0.53 711-2) BASO x10^3 (test code = 0.08 10*3/uL 0.01-0.09 704-7) Lab Interpretation (test Abnormal code = 80016-3) [facility] 21:53:54 Test Item Value Reference Range Interpretation Comments MAGNESIUM (test code = 2498399884) 1.4 mg/dL 1.7-2.4 L Lab Interpretation (test code = Abnormal 52504-7) [facility] METABOLIC PANEL (46539)2021-11-19 21:53:34 Test Item Value Reference Range Interpretation Comments NA (test code = 131 mmol/L 135-145 L 6186942739) K (test code = 4.3 mmol/L 3.5-5 0343602591) CL (test code = 87 mmol/L 98-108 L 3892601248) CO2 TOTAL (test code = 25 mmol/L 23-31 2118479749) AGAP (test code = 2-16 H 7462754227) BUN (test code = 25 mg/dL 7-23 H 4727329361) GLUCOSE (test code = 94 mg/dL 70-110 3433364980) CREATININE (test code = 2.10 mg/dL 0.6-1.25 H 8189512179) TOTAL BILI (test code = 1.2 mg/dL 0.1-1.1 H 2401167788) CALCIUM (test code = 10.4 mg/dL 8.6-10.6 1777324565) T PROTEIN (test code = 8.7 g/dL 6.3-8.2 H 5398956154) ALBUMIN (test code = 5.2 g/dL 3.5-5 H 3551520611) ALK PHOS (test code = 92 U/L 34-122 2043885121) ALTv (test code = 33 U/L 5-50 1742-6) AST(SGOT) (test code = 40 U/L 13-40 7327541840) eGFR (test code = mL/min/1.73m2 9560191576) TAMIKO (test code = TAMIKO) Association of [...] tests). Lab Interpretation Abnormal (test code = 32112-9) [facility] [id number] 21:53:33 Test Item Value Reference Range Interpretation Comments CK (test code = 5872164661) 267 U/L 33-194 H Lab Interpretation (test code = Abnormal 60810-9) [facility] [id number] 02:08:36 Test Item Value Reference Interpretation Comments Range TROPONIN I (test <0.012 See_Comment [Automated code = 0527244685) message] The system which generated this result [...] biotin. Lab Interpretation Normal (test code = 51425-5) [facility]2022-05-23 01:58:14 Test Item Value Reference Range Interpretation Comments ALCOHOL (test code = 81 mg/dL 8625961321) TAMIKO (test code = TAMIKO) <10 Hvukizvj78-302 Toxic>100 Depression of OR FIRST ASSIST REGISTERED NURSE>400 Fatalities Reported [facility]2022-05-23 01:57:54 Test Item Value Reference Range Interpretation Comments MAGNESIUM (test code = 0278234504) 1.7 mg/dL 1.7-2.4 Lab Interpretation (test code = Normal 23364-1) [facility]. METABOLIC PANEL (95786)2021-09-30 01:57:34 Test Item Value Reference Range Interpretation Comments NA (test code = 141 mmol/L 135-145 4794784166) K (test code = 4.2 mmol/L 3.5-5.0 4386058425) CL (test code = 106 mmol/L 98-108 4041975984) CO2 TOTAL (test code = 22 mmol/L 23-31 L 1589409771) AGAP (test code = 2-16 5657257758) BUN (test code = 14 mg/dL 7-23 0786449701) GLUCOSE (test code = 117 mg/dL 70-110 H 7770204707) CREATININE (test code = 1.12 mg/dL 0.60-1.25 8647628159) TOTAL BILI (test code = 0.2 mg/dL 0.1-1.3 9573251726) CALCIUM (test code = 9.0 mg/dL 8.6-10.6 5370555172) T PROTEIN (test code = 7.4 g/dL 6.3-8.2 5406081181) ALBUMIN (test code = 4.5 g/dL 3.5-5.0 2721717077) ALK PHOS (test code = 65 U/L 34-122 2015580666) ALTv (test code = 17 U/L 5-50 1742-6) AST(SGOT) (test code = 21 U/L 13-40 0848033253) eGFR (test code = mL/min/1.73m2 6187370237) TAMIKO (test code = TAMIKO) Association of [...] tests). Lab Interpretation Abnormal (test code = 60228-0) [facility] [id number] 01:57:14 Test Item Value Reference Range Interpretation Comments CK (test code = 0111600059) 57 U/L 33-194 Lab Interpretation (test code = Normal 63087-1) [facility] WITH [id number] 01:46:12 Test Item Value Reference Range Interpretation Comments WBC (test code = See_Comment [Automated 7912-2) message] The sy stem which generated this result transmitted reference range : 4.20 - 10.70 10*3/?L. The reference range was not used to interpret this result as normal/abnormal . RBC (test code = See_Comment [Automated 549-8) message] The sy stem which generated this [...] RDW-SD (test code = 45.1 fL 38.5-51.6 35081-4) RDW-CV (test code = 13.4 % 12.1-15.4 788-0) PLT (test code = See_Comment [Automated 777-3) message] The sy stem which generated this result transmitted reference range : 150 - 328 10*3/ ?L. The reference r javier was not used to interpret this result as normal/abnormal . MPV (test code = 9.7 fL 9.8-13.0 L 34794-5) NRBC/100 WBC (test See_Comment [Automat ed code = 7257297769) message] The system which generated this result transmitted reference range : 0.0 - 10.0 /100 WBCs. The refer ence range was not u sed to interpret th is result as normal/abnormal . NRBC x10^3 (test code <0.01 See_Comment [Auto mated = 6883738676) message] The s ystem which generated this result transmitted reference range : 10*3/?L. The reference range was not used to interpret this result as normal/abnormal . GRAN MAT (NEUT) % 45.6 % (test code = 770-8) IMM GRAN % (test code 0.40 % = 1085527223) LYMPH % (test code = 39.4 % 736-9) MONO % (test code = 8.4 % 5905-5) EOS % (test code = 5.4 % 713-8) BASO % (test code = 0.8 % 706-2) GRAN MAT x10^3(ANC) 3.51 10*3/uL 1.99-6.95 (test code = 0838237190) IMM GRAN x10^3 (test 0.03 10*3/uL 0.00-0.06 code = 3834331630) LYMPH x10^3 (test code 3.04 10*3/uL 1.09-3.23 = 731-0) MONO x10^3 (test code 0.65 10*3/uL 0.36-1.02 = 742-7) EOS x10^3 (test code = 0.42 10*3/uL 0.06-0.53 711-2) BASO x10^3 (test code 0.06 10*3/uL 0.01-0.09 = 704-7) Lab Interpretation Abnormal (test code = 97380-2) [facility] [id number] 02:03:45 Test Item Value Reference Interpretation Comments Range TROPONIN I (test 0.003 ng/mL See_Comment [Automated code = 0583447541) message] The system which generated this result [...] biotin. Lab Interpretation Normal (test code = 13795-1) [facility] [id number] 14:14:18 Test Item Value Reference Interpretation Comments Range TROPONIN I (test 0.003 ng/mL See_Comment [Automated code = 5070907849) message] The system which generated this result [...] biotin. Lab Interpretation Normal (test code = 20731-8) [facility] [id number] 14:11:01 Test Item Value Reference Range Interpretation Comments NT-proBNP (test code 14 pg/mL See_Comment [Autom ated = 0681492899) message] The system which generated this result transmitted reference range : <=125. The reference range was not used to interpret this result as normal/abnormal . TAMIKO (test code = TAMIKO) Biotin has been reported to cause a negative bias, interpret results relative to patient's use of biotin. Lab Interpretation Normal (test code = 70263-1) [facility]2022-05-05 14:03:57 Test Item Value Reference Range Interpretation Comments MAGNESIUM (test code = 5807964336) 1.8 mg/dL 1.7-2.4 Lab Interpretation (test code = Normal 48070-8) [facility] METABOLIC PANEL (60801)2021-09-12 14:03:37 Test Item Value Reference Range Interpretation Comments NA (test code = 140 mmol/L 135-145 6426708764) K (test code = 4.6 mmol/L 3.5-5.0 4850774177) CL (test code = 105 mmol/L 98-108 9031744962) CO2 TOTAL (test code = 25 mmol/L 23-31 1839608917) AGAP (test code = 2-16 1732922038) BUN (test code = 11 mg/dL 7-23 6053552037) GLUCOSE (test code = 111 mg/dL 70-110 H 4470105512) CREATININE (test code = 0.65 mg/dL 0.60-1.25 8306525918) TOTAL BILI (test code = 0.4 mg/dL 0.1-1.9 6053051400) CALCIUM (test code = 8.8 mg/dL 8.6-10.6 6645078221) T PROTEIN (test code = 7.7 g/dL 6.3-8.2 4111199708) ALBUMIN (test code = 4.6 g/dL 3.5-5.0 3317099925) ALK PHOS (test code = 73 U/L 34-122 0396763620) ALTv (test code = 35 U/L 5-50 1742-6) AST(SGOT) (test code = 30 U/L 13-40 3846617440) eGFR (test code = mL/min/1.73m2 0309648736) TAMIKO (test code = TAMIKO) Association of [...] tests). Lab Interpretation Abnormal (test code = 44216-0) [facility] PasoLIPASE2022-05-05 14:03:37 Test Item Value Reference Range Interpretation Comments LIPASE (test code = 1433952511) 110 U/L 0-220 Lab Interpretation (test code = Normal 07619-3) [facility] WITH [id number] 13:31:54 Test Item Value Reference Range Interpretation [...] RDW-SD (test code = 44.7 fL 38.5-51.6 59873-9) RDW-CV (test code = 13.3 % 12.1-15.4 788-0) PLT (test code = See_Comment [Automated 777-3) message] The sy stem which generated this result transmitted reference range : 150 - 328 10*3/ ?L. The reference r javier was not used to interpret this result as normal/abnormal . MPV (test code = 10.0 fL 9.8-13.0 21243-9) NRBC/100 WBC (test See_Comment [Automat ed code = 7700850308) message] The system which generated this result transmitted reference range : 0.0 - 10.0 /100 WBCs. The refer ence range was not u sed to interpret th is result as normal/abnormal . NRBC x10^3 (test code <0.01 See_Comment [Auto mated = 6950374691) message] The s ystem which generated this result transmitted reference range : 10*3/?L. The reference range was not used to interpret this result as normal/abnormal . GRAN MAT (NEUT) % 54.1 % (test code = 770-8) IMM GRAN % (test code 0.70 % = 5818937061) LYMPH % (test code = 26.6 % 736-9) MONO % (test code = 12.7 % 5905-5) EOS % (test code = 5.0 % 713-8) BASO % (test code = 0.9 % 706-2) GRAN MAT x10^3(ANC) 4.97 10*3/uL 1.99-6.95 (test code = 2441889507) IMM GRAN x10^3 (test 0.06 10*3/uL 0.00-0.06 code = 2646278782) LYMPH x10^3 (test code 2.44 10*3/uL 1.09-3.23 = 731-0) MONO x10^3 (test code 1.17 10*3/uL 0.36-1.02 H = 742-7) EOS x10^3 (test code = 0.46 10*3/uL 0.06-0.53 711-2) BASO x10^3 (test code 0.08 10*3/uL 0.01-0.09 = 704-7) Lab Interpretation Abnormal (test code = 77474-4) [facility] Paso[facility]rop[facility] [id number] 10:22:16 Test Item Value Reference Interpretation Comments Range TROPONIN I (test 0.003 ng/mL See_Comment [Automated code = 1673000847) message] The system which generated this result [...] biotin. Lab Interpretation Normal (test code = 18049-2) [facility] PasoMagn[facility] [id number] 10:12:18 Test Item Value Reference Range Interpretation Comments MAGNESIUM (test code = 4743359954) 1.7 mg/dL 1.7-2.4 Lab Interpretation (test code = Normal 69447-7) [facility] (NA, K, CL, CO2, GLUCOSE, BUN, CREATININE, CA)2021-09-06 10:11:58 Test Item Value Reference Range Interpretation Comments NA (test code = 136 mmol/L 135-145 [id number]) K (test code = 3.9 mmol/L 3.5-5.0 9569507772) CL (test code = 101 mmol/L 98-108 9184274957) CO2 TOTAL (test code 27 mmol/L 23-31 = 7776255146) AGAP (test code = 2-16 8956368913) BUN (test code = 14 mg/dL 7-23 1014710372) GLUCOSE (test code = 95 mg/dL 70-110 1948577946) CREATININE (test code 0.81 mg/dL 0.60-1.25 = 0623211086) CALCIUM (test code = 8.7 mg/dL 8.6-10.6 8735431360) eGFR (test code = mL/min/1.73m2 3382358247) TAMIKO (test code = TAMIKO) Association of [...] or urine or abnormalities in imaging tests). [facility] (A1C)2021-09-05 23:56:19 Test Item Value Reference Range Interpretation Comments HGB A1C (test code = 5.6 % 4.0-5.7 4548-4) TAMIKO (test code = TAMIKO) Reference RangesNormal: <5.7%Prediabetes: 5.7 - 6.4%Diabetes: > 6.5% Lab Interpretation (test Normal code = 55717-6) [facility] [id number] 23:52:47 Test Item Value Reference Interpretation Comments Range TROPONIN I (test 0.003 ng/mL See_Comment [Automated code = [id number]) message] The system which generated this result [...] biotin. Lab Interpretation Normal (test code = 00542-3) [facility] [place] [facility] (12894)(TOTAL CHOLESTEROL, TRIGLYCERIDES, HDL)2021-09-05 23:08:35 Test Item Value Reference Range Interpretation Comments CHOL (test code = 148 mg/dL 120-200 8224573760) HDL (test code = 39 mg/dL >40 L 5802355117) HDLC RATIO (test code = See_Comment [Au tomated message] 4345854908) The system [employer] generated this result transmit luis reference range : <=5.0. The refe rence range was not u sed to interpret th is result as normal/abnormal . TRIG (test code = 150 mg/dL 30-170 0209473632) LDL CHOL (test code = 79 mg/dL See_Comment [Auto mated message] 68580-7) The system [employer] generated this result transmit luis reference range : <=160. The refe rence range was not u sed to interpret th is result as normal/abnormal . VLDL (test code = 30 mg/dL 5-60 7277858218) Lab Interpretation (test Abnormal code = 91878-4) [facility] 21:38:59 Test Item Value Reference Range Interpretation Comments LVIDD (test code = 4.60 cm 3142270900) IVS (test code = 1.48 cm 2853130680) Interventricular Septum 1.48 cm Diastolic Thickness by 2D (test code = 6110547) LVPWD (test code = 1.25 cm 4171889613) PW (test code = 1.25 cm 0.6-1.9 5714548230) EF(Teich) (test code = 59.40 % 2142087487) LVIDS (test code = 3.20 cm 1785938905) FS (test code = 31 % 9431726412) EF - 2D (test code = 59.40 % 34057022) LVOT diameter (test code 2.06 cm = 0969781304) ACS (test code = 1.98 cm 6139353925) Ao root annulus (test 2.9 cm code = 8619686582) Ao root diam (test code = 2.90 cm 5335665049) Aortic root (test code = 2.9 cm 9680862643) LA size (test code = 3.9 cm 7767631784) Radiology Study observation (narrative) (test code = 17299-0) TAMIKO (test code = TAMIKO) ?Left?Ventricle: Left [...] (99.8 kg) 2.17 sq meters 120/59 88 [facility] Lead ROUTINE [id number] 17:41:17 Test Item Value Reference Range Interpretation Comments Lab Interpretation (test code = Abnormal 37109-4) [facility] Paso[facility] [id number] 16:19:01 Test Item Value Reference Interpretation Comments Range TROPONIN I (test 0.002 ng/mL See_Comment [Automated code = 0259045396) message] The system which generated this result [...] biotin. Lab Interpretation Normal (test code = 93241-4) [facility] [id number] 16:15:43 Test Item Value Reference Range Interpretation Comments NT-proBNP (test code 17 pg/mL See_Comment [Autom ated = 5023284327) message] The system which generated this result transmitted reference range : <=125. The reference range was not used to interpret this result as normal/abnormal . TAMIKO (test code = TAMIKO) Biotin has been reported to cause a negative bias, interpret results relative to patient's use of biotin. Lab Interpretation Normal (test code = 10295-7) [facility] PasoCOMP[facility] METABOLIC PANEL (41172)2021-09-05 16:07:19 Test Item Value Reference Range Interpretation Comments NA (test code = 141 mmol/L 135-145 4221219697) K (test code = 4.5 mmol/L 3.5-5.0 7436433570) CL (test code = 104 mmol/L 98-108 7629655382) CO2 TOTAL (test code = 23 mmol/L 23-31 1404783397) AGAP (test code = 2-16 6251534486) BUN (test code = 8 mg/dL 7-23 9066544720) GLUCOSE (test code = 127 mg/dL 70-110 H 7447543884) CREATININE (test code = 0.66 mg/dL 0.60-1.25 7751509537) TOTAL BILI (test code = 0.3 mg/dL 0.1-1.8 6367804872) CALCIUM (test code = 8.9 mg/dL 8.6-10.6 3883273436) T PROTEIN (test code = 7.7 g/dL 6.3-8.2 6198627058) ALBUMIN (test code = 4.6 g/dL 3.5-5.0 2979492237) ALK PHOS (test code = 66 U/L 34-122 8109138367) ALTv (test code = 89 U/L 5-50 H 1742-6) AST(SGOT) (test code = 72 U/L 13-40 H 7953835937) eGFR (test code = mL/min/1.73m2 3128096101) TAMIKO (test code = TAMIKO) Association of [...] tests). Lab Interpretation Abnormal (test code = 71864-0) [facility] PasoLIPASE2022-04-28 16:06:59 Test Item Value Reference Range Interpretation Comments LIPASE (test code = 0418143663) 83 U/L 0-220 Lab Interpretation (test code = Normal 54048-5) [facility] PasoD-[id number] 16:05:17 Test Item Value Reference Interpretation Comments Range D-DIMER (test code = <0.27 See_Comment [Autom ated 9679435307) message] The system which generated this result [...] diagnosis. Lab Interpretation Normal (test code = 55359-8) [facility] WITH [id number] 15:45:55 Test Item Value Reference Range Interpretation Comments WBC (test code = See_Comment [Automated message] 6690-2) The system [employer] generated this result transmitted ref erence range: 4.20 - 1 0.70 10*3/?L. The re ference range was not u sed to interpret this result as normal/abnor mal. RBC (test code = See_Comment [Automated message] 789-8) The system [employer] generated this result transmitted ref erence range: [...] RDW-SD (test code 46.4 fL 38.5-51.6 = 36606-4) RDW-CV (test code 13.7 % 12.1-15.4 = 788-0) PLT (test code = See_Comment [Automated message] 777-3) The system [employer] generated this result transmitted ref erence range: 150 - 32 8 10*3/?L. The re ference range was not u sed to interpret this result as normal/abnor mal. MPV (test code = 10.3 fL 9.8-13.0 41023-1) NRBC/100 WBC (test See_Comment [Automat ed message] code = 7883570730) The syste m which generated this result transmitted ref erence range: 0.0 - 10 .0 /100 WBCs. The refer ence range was not u sed to interpret this result as normal/abnor mal. NRBC x10^3 (test <0.01 See_Comment [Automated message] code = 3315478346) The syste m which generated this result transmitted ref erence range: 10*3/?L. The reference range was not used to interpr et this result as normal/abnormal . GRAN MAT (NEUT) % 49.4 % (test code = 770-8) IMM GRAN % (test 0.20 % code = 6585576917) LYMPH % (test code 34.1 % = 736-9) MONO % (test code 10.4 % = 5905-5) EOS % (test code = 4.7 % 713-8) BASO % (test code 1.2 % = 706-2) GRAN MAT 2.97 10*3/uL 1.99-6.95 x10^3(ANC) (test code = 2896225242) IMM GRAN x10^3 <0.03 0.00-0.06 (test code = 2654852388) LYMPH x10^3 (test 2.04 10*3/uL 1.09-3.23 code = 731-0) MONO x10^3 (test 0.62 10*3/uL 0.36-1.02 code = 742-7) EOS x10^3 (test 0.28 10*3/uL 0.06-0.53 code = 711-2) BASO x10^3 (test 0.07 10*3/uL 0.01-0.09 code = 704-7) [facility]an[facility]hor[facility] echo (TTE)2021-08-06 21:59:45 Test Item Value Reference Range Interpretation Comments LVIDD (test code = 4.40 cm 0838068866) IVS (test code = 1.50 cm 1218169834) Interventricular Septum 1.50 cm Diastolic Thickness by 2D (test code = 9660643) LVPWD (test code = 1.46 cm 4380234853) PW (test code = 1.46 cm 0.6-1.9 7443241313) EF(Teich) (test code = 56.70 % 1514208283) LVIDS (test code = 3.10 cm 4441459053) FS (test code = 30 % 0147004296) EF - 2D (test code = 56.70 % 84397042) LVOT diameter (test code 2.19 cm = 0446992279) ACS (test code = 2.16 cm 5230704438) Ao root annulus (test 3.5 cm code = 8364552507) Ao root diam (test code = 3.50 cm 9835258752) Aortic root (test code = 3.5 cm 2650496381) LA size (test code = 3.4 cm 2139470690) E wave decelartion time 0.14 s (test code = 1358096302) MV Peak E Scott (test code 83.6 cm/s = 0333725632) MV Peak A Scott (test code 59.0 cm/s = 2617896569) E/A ratio (test code = ratio 7932754116) MR max PG (test code = 90.10 mm[Hg] 0236371870) MR max scott (test code = 474.50 cm/s 3550941109) Mr max scott (test code = 474.5 m/s 2533929872) MV Prop V (test code = 70.20 cm/s 7559272801) Tapse (test code = 2.44 cm 6113638602) TR Peak Scott (test code = 238.4 cm/s 6019935954) Triscuspid Valve mmHg Regurgitation Peak Gradient (test code = 9312058933) LVOT stroke volume (test 78.90 cm3 code = 1582582941) LVOT peak scott (test code 99.0 cm/s = 7462231528) LVOT mn grad (test code = mmHg 2741597310) AV LVOT peak gradient mmHg (test code = 0327177789) LVOT peak VTI (test code 21.0 cm = 9977774609) LV V1 mean (test code = 62.40 cm/s 5647445764) Aortic valve mean 78.6 cm/s velocity (test code = 9340543791) Ao peak sctot (test code = 127.2 cm/s 5152181006) Ao VTI (test code = 23.2 cm 8040375475) AV area by cont VTI (test 3.4 cm2 code = 7630300421) AV area peak scott (test 2.9 cm2 code = 3811217363) Ao max PG (test code = 6.50 mm[Hg] 3079623389) AV peak gradient (test mmHg code = 1607407259) AV valve area (test code 3.40 cm2 = 2600536485) AV mean gradient (test mmHg code = 5559081585) Radiology Study observation (narrative) (test code = 09532-2) TAMIKO (test code = TAMIKO) ?Left?Ventricle: Left [...] (104.3 kg) 2.22 sq meters 150/92 71 [facility] PasoTROPONIN [id number] 15:14:07 Test Item Value Reference Interpretation Comments Range TROPONIN I (test 0.004 ng/mL See_Comment [Automated code = 3661140874) message] The system which generated this result [...] biotin. Lab Interpretation Normal (test code = 08997-0) [facility] PasoLIPID PANEL (60754)(TOTAL CHOLESTEROL, TRIGLYCERIDES, HDL)2021-08-06 14:47:02 Test Item Value Reference Range Interpretation Comments CHOL (test code = 211 mg/dL 120-200 H 3675224280) HDL (test code = 31 mg/dL >40 L 9786057115) HDLC RATIO (test code = See_Comment H [Au tomated message] 9519387506) The system [employer] generated this result transmit luis reference range : <=5.0. The refe rence range was not u sed to interpret th is result as normal/abnormal . TRIG (test code = 186 mg/dL 30-170 H 1911667134) LDL CHOL (test code = 143 mg/dL See_Comment [Auto mated message] 67768-4) The system [employer] generated this result transmit luis reference range : <=160. The refe rence range was not u sed to interpret th is result as normal/abnormal . VLDL (test code = 37 mg/dL 5-60 1793906770) Lab Interpretation (test Abnormal code = 23996-7) [facility] with Gesysfrujork7747-82-00 11:04:14 Test Item Value Reference Range Interpretation Comments WBC (test code = See_Comment [Automated message] 6690-2) The system [employer] generated this result transmitted ref erence range: 4.20 - 1 0.70 10*3/?L. The re ference range was not u sed to interpret this result as normal/abnor mal. RBC (test code = See_Comment [Automated message] 789-8) The system [employer] generated this result transmitted ref erence range: [...] RDW-SD (test code 46.8 fL 38.5-51.6 = 68288-2) RDW-CV (test code 13.7 % 12.1-15.4 = 788-0) PLT (test code = See_Comment [Automated message] 777-3) The system [employer] generated this result transmitted ref erence range: 150 - 32 8 10*3/?L. The re ference range was not u sed to interpret this result as normal/abnor mal. MPV (test code = 11.1 fL 9.8-13.0 64776-1) NRBC/100 WBC (test See_Comment [Automat ed message] code = 3998858161) The [employer] which generated this result transmitted ref erence range: 0.0 - 10 .0 /100 WBCs. The refer ence range was not u sed to interpret this result as normal/abnor mal. NRBC x10^3 (test <0.01 See_Comment [Automated message] code = 6255271572) The syste m which generated this result transmitted ref erence range: 10*3/?L. The reference range was not used to interpr et this result as normal/abnormal . GRAN MAT (NEUT) % 51.5 % (test code = 770-8) IMM GRAN % (test 0.30 % code = 7370680699) LYMPH % (test code 29.7 % = 736-9) MONO % (test code 12.9 % = 5905-5) EOS % (test code = 4.6 % 713-8) BASO % (test code 1.0 % = 706-2) GRAN MAT 3.66 10*3/uL 1.99-6.95 x10^3(ANC) (test code = 5595311435) IMM GRAN x10^3 <0.03 0.00-0.06 (test code = 7420807636) LYMPH x10^3 (test 2.11 10*3/uL 1.09-3.23 code = 731-0) MONO x10^3 (test 0.92 10*3/uL 0.36-1.02 code = 742-7) EOS x10^3 (test 0.33 10*3/uL 0.06-0.53 code = 711-2) BASO x10^3 (test 0.07 10*3/uL 0.01-0.09 code = 704-7) [facility] (NA, K, CL, CO2, GLUCOSE, BUN, CREATININE, CA)2021-08-06 11:02:13 Test Item Value Reference Range Interpretation Comments NA (test code = 138 mmol/L 135-145 7746420103) K (test code = 3.7 mmol/L 3.5-5.0 8947007786) CL (test code = 102 mmol/L 98-108 1141604004) CO2 TOTAL (test code = 30 mmol/L 23-31 1141203315) AGAP (test code = 2-16 2178929679) BUN (test code = 12 mg/dL 7-23 2641646517) GLUCOSE (test code = 91 mg/dL 70-110 8531687881) CREATININE (test code = 0.74 mg/dL 0.60-1.25 4119139325) CALCIUM (test code = 8.4 mg/dL 8.6-10.6 L 2793767158) eGFR (test code = mL/min/1.73m2 9459514542) TAMIKO (test code = TAMIKO) Association of [...] tests). Lab Interpretation Abnormal (test code = 45214-6) [facility] PasoMagnesium Smamt8208-71-72 11:02:13 Test Item Value Reference Range Interpretation Comments MAGNESIUM (test code = 0906482797) 1.6 mg/dL 1.7-2.4 L Lab Interpretation (test code = Abnormal 20346-0) [facility] PasoPhosphorus Mmghr3116-42-27 05:25:31 Test Item Value Reference Range Interpretation Comments PHOSPHORUS (test code = 4571758775) 3.6 mg/dL 2.5-5.0 Lab Interpretation (test code = Normal 93364-3) [facility] [id number] 01:47:25 Test Item Value Reference Interpretation Comments Range TROPONIN I (test 0.004 ng/mL See_Comment [Automated code = 8988212227) message] The system which generated this result [...] biotin. Lab Interpretation Normal (test code = 21716-9) [facility] PasoD-[id number] 01:13:57 Test Item Value Reference Interpretation Comments Range D-DIMER (test code = See_Comment H [Autom ated 7860482824) message] The system which generated this result [...] diagnosis. Lab Interpretation Abnormal (test code = 41498-9) [facility] [id number] 18:20:26 Test Item Value Reference Interpretation Comments Range TROPONIN I (test 0.003 ng/mL See_Comment [Automated code = 3717481165) message] The system which generated this result [...] biotin. Lab Interpretation Normal (test code = 33730-7) [facility] Paso[facility]-TERMINAL [id number] 18:17:04 Test Item Value Reference Range Interpretation Comments NT-proBNP (test code 16 pg/mL See_Comment [Autom ated = 2525742893) message] The system which generated this result transmitted reference range : <=125. The reference range was not used to interpret this result as normal/abnormal . TAMIKO (test code = TAMIKO) Biotin has been reported to cause a negative bias, interpret results relative to patient's use of biotin. Lab Interpretation Normal (test code = 03420-4) [facility] PasoMAGNESIUM2022-03-28 18:09:02 Test Item Value Reference Range Interpretation Comments MAGNESIUM (test code = 4538102268) 1.9 mg/dL 1.7-2.4 Lab Interpretation (test code = Normal 08403-3) [facility] PasoCOMP. METABOLIC PANEL (57858)2021-08-05 18:08:42 Test Item Value Reference Range Interpretation Comments NA (test code = 149 mmol/L 135-145 H 1840101378) K (test code = 4.3 mmol/L 3.5-5.0 2463575588) CL (test code = 110 mmol/L 98-108 H 7350886661) CO2 TOTAL (test code = 27 mmol/L 23-31 6637977975) AGAP (test code = 2-16 5504230863) BUN (test code = 4 mg/dL 7-23 L 3642247048) GLUCOSE (test code = 121 mg/dL 70-110 H 8594645068) CREATININE (test code = 0.74 mg/dL 0.60-1.25 0076919236) TOTAL BILI (test code = 0.4 mg/dL 0.1-1.4 2026620294) CALCIUM (test code = 8.9 mg/dL 8.6-10.6 0588858150) T PROTEIN (test code = 7.5 g/dL 6.3-8.2 0217124535) ALBUMIN (test code = 4.4 g/dL 3.5-5.0 9909946468) ALK PHOS (test code = 68 U/L 34-122 9799512412) ALTv (test code = 20 U/L 5-50 1742-6) AST(SGOT) (test code = 31 U/L 13-40 3690083763) eGFR (test code = mL/min/1.73m2 0587065360) TAMIKO (test code = TAMIKO) Association of [...] tests). Lab Interpretation Abnormal (test code = 19767-8) [facility] WITH [id number] 17:49:58 Test Item Value Reference Range Interpretation [...] RDW-SD (test code = 46.6 fL 38.5-51.6 07616-8) RDW-CV (test code = 13.7 % 12.1-15.4 788-0) PLT (test code = See_Comment H [Automated 777-3) message] The sy stem which generated this result transmitted reference range : 150 - 328 10*3/ ?L. The reference r javier was not used to interpret this result as normal/abnormal . MPV (test code = 10.0 fL 9.8-13.0 23372-3) NRBC/100 WBC (test See_Comment [Automat ed code = 6729804560) message] The system which generated this result transmitted reference range : 0.0 - 10.0 /100 WBCs. The refer ence range was not u sed to interpret th is result as normal/abnormal . NRBC x10^3 (test code <0.01 See_Comment [Auto mated = 4451846198) message] The s [employer]stem which generated this result transmitted reference range : 10*3/?L. The reference range was not used to interpret this result as normal/abnormal . GRAN MAT (NEUT) % 45.8 % (test code = 770-8) IMM GRAN % (test code 0.40 % = 4632350461) LYMPH % (test code = 41.7 % 736-9) MONO % (test code = 6.6 % 5905-5) EOS % (test code = 4.8 % 713-8) BASO % (test code = 0.7 % 706-2) GRAN MAT x10^3(ANC) 3.68 10*3/uL 1.99-6.95 (test code = 6841552976) IMM GRAN x10^3 (test 0.03 10*3/uL 0.00-0.06 code = 8077358956) LYMPH x10^3 (test code 3.36 10*3/uL 1.09-3.23 H = 731-0) MONO x10^3 (test code 0.53 10*3/uL 0.36-1.02 = 742-7) EOS x10^3 (test code = 0.39 10*3/uL 0.06-0.53 711-2) BASO x10^3 (test code 0.06 10*3/uL 0.01-0.09 = 704-7) Lab Interpretation Abnormal (test code = 19888-6) [facility] PasoSARS-CoV-2 (COVID-19) RNA [Presence] in Respiratory specimen by PHILIP with probe uvjlndche7408-14-92 22:29:39 Test Item Value Reference Range Interpretation Comments SARS-CoV-2 (COVID-19) RNA Not detected [Presence] in Respiratory specimen by PHILIP with probe detection (test code = 71448-0) Whether patient is employed in a Unknown healthcare setting (test code = 88023-8) Whether the patient has symptoms Unknown related to condition of interest (test code = 27267-0) Whether the patient was Unknown hospitalized for condition of interest (test code = 74914-0) Whether the patient was admitted Unknown to intensive care unit (ICU) for condition of interest (test code = 12909-3) Whether patient resides in a Unknown congregate care setting (test code = 40745-3) status (test code = Unknown 64531-2) Date and time of symptom onset Unknown (test code = 35130-6) [id number] 04:33:29 Test Item Value Reference Range Interpretation Comments ETHANOL (BEAKER) 170 mg/dL See_Comment H [Automated message] The (test code = 400) system [facility] generated this result tra nsmitted reference range : <=10. The reference r javier was not used to int erpret this result as normal/abnormal . Radiation Officer ID - CHARITO WSARS-COV2/RT-PCR ([facility])2021-07-16 01:11:14 Test Item Value Reference Range Interpretation Comments SARS-COV2/RT-PCR Negative Negative The SARS-Co V-2 target (test code = nucleic acids a re not 7161758) detected in thi s specimen. Negative result [...] revoked sooner. Fact Sheet for Healthcare Providers: https://www.[employer].com/Documents/Xpert%20Xpress%20SARS%20CoV-2/Fact%20Sheets/302-3802%20SARS-COV -2%20HEALTHCARE%20PROVIDERS%20FACT%20SHEET.pdf Fact Sheet for Healthcare Patients: https://www.[employer]/Documents/Xpert %20Xpress%20SARS%20CoV-2/Fact%20Sheets/302-3801%96WWLD-GQS-5%20PATIENT%20FACT%20 SHEET.pdfCT, BRAIN, WITHOUT IV [id number] 01:07:00Unlisted Reason for Exam - Click Yes and Enter Reason Below->No [facility] : 1985 Sex: MFINAL [...] Verified Date/Time: 07/16/2021 01:07:39 RAPID DRUG SCREEN, [id number] 00:50:29 Test Item Value Reference Range Interpretation [...] 300 ng/mLCannabinoid 50 ng/mLBenzodiazepine 300 ng/mLTricyclic 1000 ng/aPXxypykwwyhs701 ng/mLPhencyclidine 25 ng/mLAmphetamine 1000 ng/mLOpiate 300 ng/mLMethadone 300 ng/mLThis assay provides an unconfirmed qualitative test result for the clinical management of patients in emergency situations. Chain of custody not maintained. Some qzvn-dih-ucmkqxl medications, as well as adulterants, may cause inaccurate results. Clinical correlation should be applied. A more comprehensive drug screen or confirmation of a detected drug may be performed uponrequest.RAD, CHEST, 1 VIEW, NON [id number] 00:40:00Reason for exam:->SUICIDALShould this be performed at the bedside?->Yes [facility] : 1985 Sex: MFINAL REPORT EXAM/TECHNIQUE: Single [...] I (test code = The system which 4943955) generated this result transmitted ref erence range: <=53. Th e reference range was not used to interpr et this result as normal/abnormal . The High-Sensitivity Troponin I assay is performed on Siemens [employer] IM Analyzer. Results of this assay should always be interpreted in conjunction with the patient's medical history, clinical presentation, and other findings.B-TYPE NATRIURETIC FACTOR (BNP)2021-07-16 00:39:09 Test Item Value Reference Range Interpretation Comments B-TYPE NATRIURETIC PEPTIDE (BEAKER) 15 pg/mL 0-100 (test code = 700) BASIC METABOLIC [id number] 00:38:59 Test Item Value Reference Range Interpretation [...] ESTIMATED GFR. CBC W/PLT COUNT & AUTO [id number] 00:19:15 Test Item Value Reference Range Interpretation [...] PERCENT (BEAKER) (test code = 2801) TROPONIN [id number] 18:15:07 Test Item Value Reference Interpretation Comments Range TROPONIN I (test 0.007 ng/mL See_Comment [Automated code = 5788756436) message] The system which generated this result [...] biotin. Lab Interpretation Normal (test code = 98416-2) [facility]. METABOLIC PANEL (25302)2021-06-05 15:49:57 Test Item Value Reference Range Interpretation Comments NA (test code = 132 mmol/L 135-145 L 9819937457) K (test code = 4.3 mmol/L 3.5-5.0 5243866002) CL (test code = 95 mmol/L 98-108 L 1221554788) CO2 TOTAL (test code = 16 mmol/L 23-31 L 8002504943) AGAP (test code = 2-16 H 8273082145) BUN (test code = 34 mg/dL 7-23 H 1907270485) GLUCOSE (test code = 80 mg/dL 70-110 8304396962) CREATININE (test code = 1.66 mg/dL 0.60-1.25 H 1807725418) TOTAL BILI (test code = 1.1 mg/dL 0.1-1.5 5445487375) CALCIUM (test code = 9.0 mg/dL 8.6-10.6 0829605361) T PROTEIN (test code = 8.1 g/dL 6.3-8.2 0364373888) ALBUMIN (test code = 5.0 g/dL 3.5-5.0 9750860229) ALK PHOS (test code = 92 U/L 34-122 3046336131) ALTv (test code = 50 U/L 5-50 1742-6) AST(SGOT) (test code = 68 U/L 13-40 H 6528012692) eGFR (test code = mL/min/1.73m2 6354443392) TAMIKO (test code = TAMIKO) Association of [...] tests). Lab Interpretation Abnormal (test code = 85808-3) [facility] Paso[facility] [id number] 15:49:11 Test Item Value Reference Interpretation Comments Range TROPONIN I (test 0.010 ng/mL See_Comment [Automated code = 3731680383) message] The system which generated this result [...] biotin. Lab Interpretation Normal (test code = 64757-7) [facility] PasoLIPASE, [id number] 15:37:50 Test Item Value Reference Range Interpretation Comments LIPASE (test code = 9406732527) 233 U/L 0-220 H Lab Interpretation (test code = Abnormal 01867-7) [facility] PasoaPTT2022-01-26 15:31:46 Test Item Value Reference Range Interpretation Comments APTT Patient (test See_Comment [Automat ed code = 3173-2) message] The system which generated this result transmitted reference range : 23 - 38 Seconds . The reference range was not used to interpr et this result as normal/abnormal . TAMIKO (test code = TAMIKO) The [facility] patient population mean normal value for aPTT is 30 seconds. Lab Interpretation Normal (test code = 50748-9) [facility] PasoPROTHROMBIN TIME / [id number] 15:29:45 Test Item Value Reference Range Interpretation [...] tions. Lab Interpretation (test Normal code = 08016-3) [facility] WITH [id number] 15:28:44 Test Item Value Reference Range Interpretation Comments WBC (test code = See_Comment H [Automated 8190-2) message] The sy stem which generated this [...] RDW-SD (test code = 42.5 fL 38.5-51.6 43969-0) RDW-CV (test code = 13.0 % 12.1-15.4 788-0) PLT (test code = See_Comment [Automated 777-3) message] The sy stem which generated this result transmitted reference range : 150 - 328 10*3/ ?L. The reference r javier was not used to interpret this result as normal/abnormal . MPV (test code = 10.2 fL 9.8-13.0 55220-4) NRBC/100 WBC (test See_Comment [Automat ed code = 6113428668) message] The system which generated this result transmitted reference range : 0.0 - 10.0 /100 WBCs. The refer ence range was not u sed to interpret th is result as normal/abnormal . NRBC x10^3 (test code <0.01 See_Comment [Auto mated = 1112763671) message] The s [employer] which generated this result transmitted reference range : 10*3/?L. The reference range was not used to interpret this result as normal/abnormal . GRAN MAT (NEUT) % 77.1 % (test code = 770-8) IMM GRAN % (test code 0.90 % = 1987769707) LYMPH % (test code = 10.4 % 736-9) MONO % (test code = 10.5 % 5905-5) EOS % (test code = 0.6 % 713-8) BASO % (test code = 0.5 % 706-2) GRAN MAT x10^3(ANC) 9.01 10*3/uL 1.99-6.95 H (test code = 8179876324) IMM GRAN x10^3 (test 0.10 10*3/uL 0.00-0.06 H code = 4299961794) LYMPH x10^3 (test code 1.22 10*3/uL 1.09-3.23 = 731-0) MONO x10^3 (test code 1.23 10*3/uL 0.36-1.02 H = 742-7) EOS x10^3 (test code = 0.07 10*3/uL 0.06-0.53 711-2) BASO x10^3 (test code 0.06 10*3/uL 0.01-0.09 = 704-7) Lab Interpretation Abnormal (test code = 17989-3) [facility] [id number] 16:51:13 Test Item Value Reference Interpretation Comments Range TROPONIN I (test 0.005 ng/mL See_Comment [Automated code = 8257018388) message] The system which generated this result [...] biotin. Lab Interpretation Normal (test code = 45192-0) [facility]. METABOLIC PANEL (23519)2021-05-27 16:39:35 Test Item Value Reference Range Interpretation Comments NA (test code = 137 mmol/L 135-145 2449386432) K (test code = 3.7 mmol/L 3.5-5.0 1467789221) CL (test code = 101 mmol/L 98-108 5532418338) CO2 TOTAL (test code = 27 mmol/L 23-31 9507818892) AGAP (test code = 2-16 5189867468) BUN (test code = 9 mg/dL 7-23 4635982816) GLUCOSE (test code = 108 mg/dL 70-110 6783021453) CREATININE (test code = 0.75 mg/dL 0.60-1.25 6725918001) TOTAL BILI (test code = 0.3 mg/dL 0.1-1.3 7884675729) CALCIUM (test code = 8.2 mg/dL 8.6-10.6 L 9123395008) T PROTEIN (test code = 7.0 g/dL 6.3-8.2 1246020100) ALBUMIN (test code = 4.1 g/dL 3.5-5.0 4557545972) ALK PHOS (test code = 74 U/L 34-122 3373764153) ALTv (test code = 27 U/L 5-50 1742-6) AST(SGOT) (test code = 34 U/L 13-40 4903218418) eGFR (test code = mL/min/1.73m2 9343681606) TAMIKO (test code = TAMIKO) Association of [...] tests). Lab Interpretation Abnormal (test code = 67898-4) [facility]oLIP[facility], [id number] 16:39:14 Test Item Value Reference Range Interpretation Comments LIPASE (test code = 0025137550) 72 U/L 0-220 Lab Interpretation (test code = Normal 92016-7) [facility]oaPTT2022-[facility]-17 16:34:13 Test Item Value Reference Range Interpretation Comments APTT Patient (test See_Comment [Automat ed code = 3173-2) message] The system which generated this result transmitted reference range : 23 - 38 Seconds . The reference range was not used to interpr et this result as normal/abnormal . TAMIKO (test code = TAMIKO) The [facility] patient population mean normal value for aPTT is 30 seconds. Lab Interpretation Normal (test code = 16658-4) [facility] PasoPROTHROMBIN TIME / [id number] 16:32:13 Test Item Value Reference Range Interpretation [...] tions. Lab Interpretation (test Normal code = 82891-6) [facility] WITH [id number] 16:21:51 Test Item Value Reference Range Interpretation Comments WBC (test code = See_Comment [Automated message] 6690-2) The system [employer] generated this result transmitted ref erence range: 4.20 - 1 0.70 10*3/?L. The re ference range was not u sed to interpret this result as normal/abnor mal. RBC (test code = See_Comment [Automated message] 659-8) The system [employer] generated this result transmitted ref erence range: [...] RDW-SD (test code 42.2 fL 38.5-51.6 = 78377-7) RDW-CV (test code 12.7 % 12.1-15.4 = 788-0) PLT (test code = See_Comment [Automated message] 497-3) The system [employer] generated this result transmitted ref erence range: 150 - 32 8 10*3/?L. The re ference range was not u sed to interpret this result as normal/abnor mal. MPV (test code = 9.9 fL 9.8-13.0 68005-9) NRBC/100 WBC (test See_Comment [Automat ed message] code = 8970338543) The [employer] which generated this result transmitted ref erence range: 0.0 - 10 .0 /100 WBCs. The refer ence range was not u sed to interpret this result as normal/abnor mal. NRBC x10^3 (test <0.01 See_Comment [Automated message] code = 0927062078) The syste m which generated this result transmitted ref erence range: 10*3/?L. The reference range was not used to interpr et this result as normal/abnormal . GRAN MAT (NEUT) % 53.0 % (test code = 770-8) IMM GRAN % (test 0.30 % code = 4579992221) LYMPH % (test code 29.5 % = 736-9) MONO % (test code 12.3 % = 5905-5) EOS % (test code = 4.1 % 713-8) BASO % (test code 0.8 % = 706-2) GRAN MAT 3.23 10*3/uL 1.99-6.95 x10^3(ANC) (test code = 2555221175) IMM GRAN x10^3 <0.03 0.00-0.06 (test code = 3365659411) LYMPH x10^3 (test 1.80 10*3/uL 1.09-3.23 code = 731-0) MONO x10^3 (test 0.75 10*3/uL 0.36-1.02 code = 742-7) EOS x10^3 (test 0.25 10*3/uL 0.06-0.53 code = 711-2) BASO x10^3 (test 0.05 10*3/uL 0.01-0.09 code = 704-7) [facility] PasoPROCALCITONIN2021-12-26 18:33:47 Test Item Value Reference Range Interpretation Comments Procalcitonin (test 0.02 ng/mL <0.07 code = 1637711459) TAMIKO (test code = TAMIKO) INTERPRETATION OF [...] lung abscess/empyema. For further information please refer to:[email or web address] Lab Interpretation Normal (test code = 29343-8) [facility] [id number] 13:20:01 Test Item Value Reference Interpretation Comments Range TROPONIN I (test 0.008 ng/mL See_Comment [Automated code = 2283109618) message] The system which generated this result [...] biotin. Lab Interpretation Normal (test code = 34764-5) [facility] [id number] 11:41:12 Test Item Value Reference Interpretation Comments Range TROPONIN I (test 0.007 ng/mL See_Comment [Automated code = 7540728825) message] The system which generated this result [...] biotin. Lab Interpretation Normal (test code = 35138-2) [facility] [id number] 11:31:13 Test Item Value Reference Range Interpretation Comments CK (test code = 0261878437) 93 U/L 33-194 Lab Interpretation (test code = Normal 25500-1) [facility] PasoTHYROID STIMULATING [id number] 10:15:06 Test Item Value Reference Range Interpretation Comments TSH (test code = See_Comment [Automated message] 3193298209) The system [employer] generated this result transmitted ref erence range: 0.45 - 4 .70 mIU/L. The refe rence range was not u sed to interpret this result as normal/abnor mal. Lab Interpretation (test Normal code = 15092-3) [facility] PasoN-TERMINAL [id number] 09:53:45 Test Item Value Reference Range Interpretation Comments NT-proBNP (test code 175 pg/mL See_Comment H [Autom ated = 7024742871) message] The system which generated this result transmitted reference range : <=125. The reference range was not used to interpret this result as normal/abnormal . TAMIKO (test code = TAMIKO) Biotin has been reported to cause a negative bias, interpret results relative to patient's use of biotin. Lab Interpretation Abnormal (test code = 43150-4) [facility] PasoETHANOL2021-12-26 09:52:20 Test Item Value Reference Range Interpretation Comments ALCOHOL (test code = <10 mg/dL 9625381208) TAMIKO (test code = TAMIKO) <10 Ceaatcrn42-938 Toxic>100 Depression of OR FIRST ASSIST REGISTERED NURSE>400 Fatalities Reported [facility] PasoMAGNESIUM2021-12-26 09:45:24 Test Item Value Reference Range Interpretation Comments MAGNESIUM (test code = 3693902977) 1.3 mg/dL 1.7-2.4 L Lab Interpretation (test code = Abnormal 91687-7) [facility] PasoLIPID PANEL (65876)(TOTAL CHOLESTEROL, TRIGLYCERIDES, HDL)2021-05-05 09:45:24 Test Item Value Reference Range Interpretation Comments CHOL (test code = 206 mg/dL 120-200 H 3128747578) HDL (test code = 29 mg/dL >40 L 1520871017) HDLC RATIO (test code = See_Comment H [Au tomated message] 6050873400) The system [employer] generated this result transmit luis reference range : <=5.0. The refe rence range was not u sed to interpret th is result as normal/abnormal . TRIG (test code = 255 mg/dL 30-170 H 9350684775) LDL CHOL (test code = 126 mg/dL See_Comment [Auto mated message] 04614-5) The system [employer] generated this result transmit luis reference range : <=160. The refe rence range was not u sed to interpret th is result as normal/abnormal . VLDL (test code = 51 mg/dL 5-60 1191546031) Lab Interpretation (test Abnormal code = 38863-5) [facility] PasoPHOSPHORUS2021-12-26 09:45:04 Test Item Value Reference Range Interpretation Comments PHOSPHORUS (test code = 8702785026) 3.6 mg/dL 2.5-5.0 Lab Interpretation (test code = Normal 70910-1) [facility] PasoURIC [id number] 09:44:43 Test Item Value Reference Range Interpretation Comments URIC ACID (test code = 8307415184) 7.8 mg/dL 3.6-8.0 Lab Interpretation (test code = Normal 25028-8) [facility] PasoGLYCOSYLATED HEMOGLOBIN (A1C)2021-05-05 09:09:32 Test Item Value Reference Range Interpretation Comments HGB A1C (test code = 5.7 % 4.0-5.7 4548-4) TAMIKO (test code = TAMIKO) Reference RangesNormal: <5.7%Prediabetes: 5.7 - 6.4%Diabetes: > 6.5% Lab Interpretation (test Normal code = 37805-6) [facility] PasoD-[id number] 04:48:27 Test Item Value Reference Interpretation Comments Range D-DIMER (test code = <0.27 See_Comment [Autom ated 4336096825) message] The system which generated this result [...] diagnosis. Lab Interpretation Normal (test code = 65849-9) [facility] [id number] 03:29:25 Test Item Value Reference Interpretation Comments Range TROPONIN I (test 0.018 ng/mL See_Comment [Automated code = 7285720842) message] The system which generated this result [...] biotin. Lab Interpretation Normal (test code = 42329-1) [facility] [id number] 01:09:37 Test Item Value Reference Interpretation Comments Range TROPONIN I (test 0.005 ng/mL See_Comment [Automated code = 3748283257) message] The system which generated this result [...] biotin. Lab Interpretation Normal (test code = 77176-5) [facility]. METABOLIC PANEL (40788)2021-05-05 00:57:59 Test Item Value Reference Range Interpretation Comments NA (test code = 135 mmol/L 135-145 9314227367) K (test code = 3.8 mmol/L 3.5-5.0 2733628037) CL (test code = 102 mmol/L 98-108 1678858422) CO2 TOTAL (test code 23 mmol/L 23-31 = 7862223334) AGAP (test code = 2-16 8019878031) BUN (test code = 12 mg/dL 7-23 6888227214) GLUCOSE (test code = 92 mg/dL 70-110 2125809962) CREATININE (test code 0.71 mg/dL 0.60-1.25 = 7534463112) TOTAL BILI (test code 0.5 mg/dL 0.1-1.1 = 2026044008) CALCIUM (test code = 9.0 mg/dL 8.6-10.6 9723639636) T PROTEIN (test code 7.4 g/dL 6.3-8.2 = 5669488479) ALBUMIN (test code = 4.4 g/dL 3.5-5.0 9246500256) ALK PHOS (test code = 67 U/L 34-122 3708619195) ALTv (test code = 28 U/L 5-50 1742-6) AST(SGOT) (test code 32 U/L 13-40 = 4157031874) eGFR (test code = mL/min/1.73m2 2251547914) TAMIKO (test code = TAMIKO) Association of [...] or urine or abnormalities in imaging tests). [facility]oLIPASE, [id number] 00:57:39 Test Item Value Reference Range Interpretation Comments LIPASE (test code = 6113258665) 65 U/L 0-220 Lab Interpretation (test code = Normal 70371-0) [facility] PasoaPTT2021-12-26 00:54:59 Test Item Value Reference Range Interpretation Comments APTT Patient (test See_Comment [Automat ed code = 3173-2) message] The system which generated this result transmitted reference range : 23 - 38 Seconds . The reference range was not used to interpr et this result as normal/abnormal . TAMIKO (test code = TAMIKO) The [facility] patient population mean normal value for aPTT is 30 seconds. Lab Interpretation Normal (test code = 99911-7) [facility] PasoPROTHROMBIN TIME / [id number] 00:52:58 Test Item Value Reference Range Interpretation [...] tions. Lab Interpretation (test Normal code = 57020-8) [facility] WITH [id number] 00:46:38 Test Item Value Reference Range Interpretation Comments WBC (test code = See_Comment [Automated 8690-2) message] The sy stem which generated this result transmitted reference range : 4.20 - 10.70 10*3/?L. The reference range was not used to interpret this result as normal/abnormal . RBC (test code = See_Comment [Automated 459-8) message] The sy stem which generated this [...] RDW-SD (test code = 41.9 fL 38.5-51.6 43846-5) RDW-CV (test code = 12.7 % 12.1-15.4 788-0) PLT (test code = See_Comment H [Automated 777-3) message] The sy stem which generated this result transmitted reference range : 150 - 328 10*3/ ?L. The reference r javier was not used to interpret this result as normal/abnormal . MPV (test code = 9.9 fL 9.8-13.0 32491-4) NRBC/100 WBC (test See_Comment [Automat ed code = 2951187938) message] The system which generated this result transmitted reference range : 0.0 - 10.0 /100 WBCs. The refer ence range was not u sed to interpret th is result as normal/abnormal . NRBC x10^3 (test code <0.01 See_Comment [Auto mated = 9636445088) message] The s [employer] which generated this result transmitted reference range : 10*3/?L. The reference range was not used to interpret this result as normal/abnormal . GRAN MAT (NEUT) % 62.3 % (test code = 770-8) IMM GRAN % (test code 0.30 % = 6624580571) LYMPH % (test code = 24.9 % 736-9) MONO % (test code = 9.9 % 5905-5) EOS % (test code = 1.6 % 713-8) BASO % (test code = 1.0 % 706-2) GRAN MAT x10^3(ANC) 5.68 10*3/uL 1.99-6.95 (test code = 6608885937) IMM GRAN x10^3 (test 0.03 10*3/uL 0.00-0.06 code = 8644289203) LYMPH x10^3 (test code 2.27 10*3/uL 1.09-3.23 = 731-0) MONO x10^3 (test code 0.90 10*3/uL 0.36-1.02 = 742-7) EOS x10^3 (test code = 0.15 10*3/uL 0.06-0.53 711-2) BASO x10^3 (test code 0.09 10*3/uL 0.01-0.09 = 704-7) Lab Interpretation Abnormal (test code = 65924-0) [facility] [id number] 14:27:27 Test Item Value Reference Interpretation Comments Range TROPONIN I (test 0.002 ng/mL See_Comment [Automated code = 2519578481) message] The system which generated this result [...] biotin. Lab Interpretation Normal (test code = 53910-8) [facility] PasoD-KEIFY7706-01-39 14:25:35 Test Item Value Reference Interpretation Comments Range D-DIMER (test code = See_Comment [Autom ated 4242385137) message] The system which generated this result [...] diagnosis. Lab Interpretation Normal (test code = 76535-2) [facility] PasoN-TERMINAL [id number] 14:22:27 Test Item Value Reference Range Interpretation Comments NT-proBNP (test code 29 pg/mL See_Comment [Autom ated = 8523919674) message] The system which generated this result transmitted reference range : <=125. The reference range was not used to interpret this result as normal/abnormal . TAMIKO (test code = TAMIKO) Biotin has been reported to cause a negative bias, interpret results relative to patient's use of biotin. Lab Interpretation Normal (test code = 37566-7) [facility] PasoLIPID PANEL (19775)(TOTAL CHOLESTEROL, TRIGLYCERIDES, HDL)2021-02-18 14:14:32 Test Item Value Reference Range Interpretation Comments CHOL (test code = 209 mg/dL 120-200 H 4700287872) HDL (test code = 30 mg/dL >40 L 4235099278) HDLC RATIO (test code = See_Comment H [Au tomated message] 2758580050) The system [employer] generated this result transmit luis reference range : <=5.0. The refe rence range was not u sed to interpret th is result as normal/abnormal . TRIG (test code = 143 mg/dL 30-170 0361322945) LDL CHOL (test code = 150 mg/dL See_Comment [Auto mated message] 92854-9) The system [employer] generated this result transmit luis reference range : <=160. The refe rence range was not u sed to interpret th is result as normal/abnormal . VLDL (test code = 29 mg/dL 5-60 0369126354) Lab Interpretation (test Abnormal code = 94555-7) [facility]. METABOLIC PANEL (95786)2021-02-18 14:14:11 Test Item Value Reference Range Interpretation Comments NA (test code = 139 mmol/L 135-145 0249184493) K (test code = 4.7 mmol/L 3.5-5.0 9100248371) CL (test code = 104 mmol/L 98-108 9962437358) CO2 TOTAL (test code 30 mmol/L 23-31 = 5598247670) AGAP (test code = 2-16 1331533229) BUN (test code = 12 mg/dL 7-23 1231375363) GLUCOSE (test code = 102 mg/dL 70-110 8386821046) CREATININE (test code 0.78 mg/dL 0.60-1.25 = 6622450664) TOTAL BILI (test code 0.3 mg/dL 0.1-1.1 = 8731749769) CALCIUM (test code = 9.5 mg/dL 8.6-10.6 9205202173) T PROTEIN (test code 7.4 g/dL 6.3-8.2 = 5759528861) ALBUMIN (test code = 4.3 g/dL 3.5-5.0 7075467490) ALK PHOS (test code = 61 U/L 34-122 7553879941) ALTv (test code = 27 U/L 50 1742-6) AST(SGOT) (test code 26 U/L -40 = 0632668649) eGFR (test code = mL/min/1.73m2 7275714295) TAMIKO (test code = TAMIKO) Association of [...] or urine or abnormalities in imaging tests). [facility] PasoMAGNESIUM2021-10-11 14:14:11 Test Item Value Reference Range Interpretation Comments MAGNESIUM (test code = 5456324020) 1.8 mg/dL 1.7-2.4 Lab Interpretation (test code = Normal 38431-6) [facility] WITH [id number] 13:51:29 Test Item Value Reference Range Interpretation Comments WBC (test code = See_Comment [Automated message] 6690-2) The system [employer] generated this result transmitted ref erence range: 4.20 - 1 0.70 10*3/?L. The re ference range was not u sed to interpret this result as normal/abnor mal. RBC (test code = See_Comment [Automated message] 789-8) The system [employer] generated this result transmitted ref erence range: [...] RDW-SD (test code 43.3 fL 38.5-51.6 = 59649-4) RDW-CV (test code 13.0 % 12.1-15.4 = 788-0) PLT (test code = See_Comment [Automated message] 777-3) The system [employer] generated this result transmitted ref erence range: 150 - 32 8 10*3/?L. The re ference range was not u sed to interpret this result as normal/abnor mal. MPV (test code = 10.2 fL 9.8-13.0 74668-1) NRBC/100 WBC (test See_Comment [Automat ed message] code = 5483707460) The [employer] which generated this result transmitted ref erence range: 0.0 - 10 .0 /100 WBCs. The refer ence range was not u sed to interpret this result as normal/abnor mal. NRBC x10^3 (test <0.01 See_Comment [Automated message] code = 1616426180) The [employer] which generated this result transmitted ref erence range: 10*3/?L. The reference range was not used to interpr et this result as normal/abnormal . GRAN MAT (NEUT) % 50.8 % (test code = 770-8) IMM GRAN % (test 0.70 % code = 1309770362) LYMPH % (test code 29.1 % = 736-9) MONO % (test code 12.4 % = 5905-5) EOS % (test code = 6.2 % 713-8) BASO % (test code 0.8 % = 706-2) GRAN MAT 3.71 10*3/uL 1.99-6.95 x10^3(ANC) (test code = 9078373659) IMM GRAN x10^3 0.05 10*3/uL 0.00-0.06 (test code = 2498668717) LYMPH x10^3 (test 2.13 10*3/uL 1.09-3.23 code = 731-0) MONO x10^3 (test 0.91 10*3/uL 0.36-1.02 code = 742-7) EOS x10^3 (test 0.45 10*3/uL 0.06-0.53 code = 711-2) BASO x10^3 (test 0.06 10*3/uL 0.01-0.09 code = 704-7) [facility] PasoCOMP. METABOLIC PANEL (85577)2021-01-24 14:53:54 Test Item Value Reference Range Interpretation Comments NA (test code = 137 mmol/L 135-145 1530746410) K (test code = 4.5 mmol/L 3.5-5.0 5603216204) CL (test code = 100 mmol/L 98-108 2674198843) CO2 TOTAL (test code 29 mmol/L 23-31 = 2987113450) AGAP (test code = 2-16 9979422263) BUN (test code = 16 mg/dL 7-23 6352176466) GLUCOSE (test code = 94 mg/dL 70-110 2490252204) CREATININE (test code 0.86 mg/dL 0.60-1.25 = 8397322376) TOTAL BILI (test code 0.5 mg/dL 0.1-1.1 = 0377535394) CALCIUM (test code = 9.7 mg/dL 8.6-10.6 0284828385) T PROTEIN (test code 8.0 g/dL 6.3-8.2 = 5465283475) ALBUMIN (test code = 4.5 g/dL 3.5-5.0 4357187756) ALK PHOS (test code = 64 U/L 34-122 7368934222) ALTv (test code = 21 U/L 5-50 1742-6) AST(SGOT) (test code 37 U/L 13-40 = 1940674093) eGFR (test code = mL/min/1.73m2 8179155948) TAMIKO (test code = TAMIKO) Association of [...] or abnormalities in imaging tests). [facility]. METABOLIC PANEL (31137)2021-01-24 14:53:54 Test Item Value Reference Range Interpretation Comments NA (test code = 137 mmol/L 135-145 2772654156) K (test code = 4.5 mmol/L 3.5-5.0 9714631100) CL (test code = 100 mmol/L 98-108 5245421452) CO2 TOTAL (test code 29 mmol/L 23-31 = 3686143123) AGAP (test code = 2-16 7931078436) BUN (test code = 16 mg/dL 7-23 2837869547) GLUCOSE (test code = 94 mg/dL 70-110 5983484073) CREATININE (test code 0.86 mg/dL 0.60-1.25 = 1749266764) TOTAL BILI (test code 0.5 mg/dL 0.1-1.1 = 7846062074) CALCIUM (test code = 9.7 mg/dL 8.6-10.6 7036056279) T PROTEIN (test code 8.0 g/dL 6.3-8.2 = 0880210457) ALBUMIN (test code = 4.5 g/dL 3.5-5.0 6812371668) ALK PHOS (test code = 64 U/L 34-122 4398958348) ALTv (test code = 21 U/L 5-50 1742-6) AST(SGOT) (test code 37 U/L 13-40 = 9068077967) eGFR (test code = mL/min/1.73m2 1570349947) TAMIKO (test code = TAMIKO) Association of [...] or urine or abnormalities in imaging tests). [facility] WITH [id number] 14:39:54 Test Item Value Reference Range Interpretation Comments WBC (test code = See_Comment [Automated 6190-2) message] The sy stem which generated this [...] RDW-SD (test code = 44.4 fL 38.5-51.6 79902-4) RDW-CV (test code = 13.2 % 12.1-15.4 788-0) PLT (test code = See_Comment [Automated 777-3) message] The sy stem which generated this result transmitted reference range : 150 - 328 10*3/ ?L. The reference r javier was not used to interpret this result as normal/abnormal . MPV (test code = 10.7 fL 9.8-13.0 66230-1) NRBC/100 WBC (test See_Comment [Automat ed code = 1804491331) message] The system which generated this result transmitted reference range : 0.0 - 10.0 /100 WBCs. The refer ence range was not u sed to interpret th is result as normal/abnormal . NRBC x10^3 (test code <0.01 See_Comment [Auto mated = 5928841761) message] The s ystem which generated this result transmitted reference range : 10*3/?L. The reference range was not used to interpret this result as normal/abnormal . GRAN MAT (NEUT) % 54.9 % (test code = 770-8) IMM GRAN % (test code 0.50 % = 7266288546) LYMPH % (test code = 24.0 % 736-9) MONO % (test code = 16.5 % 5905-5) EOS % (test code = 3.5 % 713-8) BASO % (test code = 0.6 % 706-2) GRAN MAT x10^3(ANC) 3.58 10*3/uL 1.99-6.95 (test code = 3578991950) IMM GRAN x10^3 (test 0.03 10*3/uL 0.00-0.06 code = 3731123719) LYMPH x10^3 (test code 1.57 10*3/uL 1.09-3.23 = 731-0) MONO x10^3 (test code 1.08 10*3/uL 0.36-1.02 H = 742-7) EOS x10^3 (test code = 0.23 10*3/uL 0.06-0.53 711-2) BASO x10^3 (test code 0.04 10*3/uL 0.01-0.09 = 704-7) Lab Interpretation Abnormal (test code = 35088-2) [facility] WITH [id number] 14:39:54 Test Item Value Reference Range Interpretation Comments WBC (test code = See_Comment [Automated 7548-2) message] The sy stem which generated this result transmitted reference range : 4.20 - 10.70 10*3/?L. The reference range was not used to interpret this result as normal/abnormal . RBC (test code = See_Comment [Automated 929-8) message] The sy stem which generated this [...] RDW-SD (test code = 44.4 fL 38.5-51.6 32106-9) RDW-CV (test code = 13.2 % 12.1-15.4 788-0) PLT (test code = See_Comment [Automated 777-3) message] The sy stem which generated this result transmitted reference range : 150 - 328 10*3/ ?L. The reference r javier was not used to interpret this result as normal/abnormal . MPV (test code = 10.7 fL 9.8-13.0 04005-5) NRBC/100 WBC (test See_Comment [Automat ed code = 0425591120) message] The system which generated this result transmitted reference range : 0.0 - 10.0 /100 WBCs. The refer ence range was not u sed to interpret th is result as normal/abnormal . NRBC x10^3 (test code <0.01 See_Comment [Auto mated = 1291215825) message] The s ystem which generated this result transmitted reference range : 10*3/?L. The reference range was not used to interpret this result as normal/abnormal . GRAN MAT (NEUT) % 54.9 % (test code = 770-8) IMM GRAN % (test code 0.50 % = 2217877818) LYMPH % (test code = 24.0 % 736-9) MONO % (test code = 16.5 % 5905-5) EOS % (test code = 3.5 % 713-8) BASO % (test code = 0.6 % 706-2) GRAN MAT x10^3(ANC) 3.58 10*3/uL 1.99-6.95 (test code = 7539219704) IMM GRAN x10^3 (test 0.03 10*3/uL 0.00-0.06 code = 5988179530) LYMPH x10^3 (test code 1.57 10*3/uL 1.09-3.23 = 731-0) MONO x10^3 (test code 1.08 10*3/uL 0.36-1.02 H = 742-7) EOS x10^3 (test code = 0.23 10*3/uL 0.06-0.53 711-2) BASO x10^3 (test code 0.04 10*3/uL 0.01-0.09 = 704-7) Lab Interpretation Abnormal (test code = 47370-2) [facility] - COMPREHENSIVE DRUG SCREEN W/O [id number] 14:38:57 Test Item Value Reference Range Interpretation Comments AMPHET (test code = Negative Negative 9194050643) CLAUDIA U (test code = Negative Negative 2495842582) BENZO U (test code = Negative Negative 0827726920) Cocaine Metabolite (test Negative Negative code = 7967996661) METHADONE (test code = Negative Negative 4983951978) OPIATES (test code = Negative Negative 2707362032) PCP (test code = Negative Negative 4109698391) THC (test code = Negative Negative 3942185482) TAMIKO (test code = TAMIKO) Urine Drug [...] testing). Lab Interpretation (test Normal code = 79729-3) [facility] (ID NOW RAPID TESTING)2020-12-07 14:31:11 Test Item Value Reference Range Interpretation Comments SARS-CoV-2 Rapid ID NOW Not Detected Not Detected (test code = 48974-0) TAMIKO (test code = TAMIKO) ID NOW COVID-19 Assay is an isothermal nucleic acid amplification test intended for the qualitative detection of nucleic acid from SARS-CoV-2 viral RNA in nasopharyngeal (POSTAL TRANSPORTATION CLERK) specimens. It is used under Emergency Use [...] indicated. Lab Interpretation Normal (test code = 70355-0) [facility] C [id number] 14:23:50 Test Item Value Reference Range Interpretation Comments RSV Antigen (test code = 5298195367) Negative Negative Lab Interpretation (test code = Normal 53857-9) [facility]IS2021-07-30 14:10:55 Test Item Value Reference Range Interpretation Comments APPEARANCE (test code = Clear Clear 7756484263) COLOR (test code = Yellow Yellow 3720604990) PH (test code = 4.8-8.0 8110901633) SP GRAVITY (test code = 1.003-1.030 9501531916) GLU U QUAL (test code = Normal Normal 3709546152) BLOOD (test code = Negative Negative 6781158432) KETONES (test code = Negative Negative 9607536835) PROTEIN (test code = Negative Negative 2887-8) UROBILIN (test code = Normal Normal 5909531955) BILIRUBIN (test code = Negative Negative 6440143923) NITRITE (test code = Negative Negative 9623120776) LEUK GINO (test code = Negative Negative 1927984215) RBC/HPF (test code = See_Comment [Autom ated message] 8587059464) The system [employer] generated this result transmitted ref erence range: 0 - 3 HP F. The reference range was not used to int erpret this result as normal/abnormal . WBC/HPF (test code = See_Comment [Autom ated message] 1955515098) The system [employer] generated this result transmitted ref erence range: 0 - 5 HP F. The reference range was not used to int erpret this result as normal/abnormal . BACTERIA (test code = Negative Negative 3397300118) Lab Interpretation (test Normal code = 06085-2) [facility]. METABOLIC PANEL (60692)2020-12-07 14:10:04 Test Item Value Reference Range Interpretation Comments NA (test code = 142 mmol/L 135-145 9812745874) K (test code = 4.3 mmol/L 3.5-5.0 2946093310) CL (test code = 106 mmol/L 98-108 8145153431) CO2 TOTAL (test code = 23 mmol/L 23-31 0907647391) AGAP (test code = 2-16 9660131800) BUN (test code = 15 mg/dL 7-23 6462192401) GLUCOSE (test code = 94 mg/dL 70-110 7703795889) CREATININE (test code = 0.70 mg/dL 0.60-1.25 6871152964) TOTAL BILI (test code = 0.5 mg/dL 0.1-1.4 6103572255) CALCIUM (test code = 9.7 mg/dL 8.6-10.6 0887877600) T PROTEIN (test code = 8.3 g/dL 6.3-8.2 H 0938969771) ALBUMIN (test code = 4.8 g/dL 3.5-5.0 5362254193) ALK PHOS (test code = 62 U/L 34-122 7337353777) ALTv (test code = 31 U/L 5-50 1742-6) AST(SGOT) (test code = 84 U/L 13-40 H 0693258914) eGFR (test code = mL/min/1.73m2 4411205342) TAMIKO (test code = TAMIKO) Association of [...] tests). Lab Interpretation Abnormal (test code = 16703-2) [facility] PasoLIPASE2021-07-30 14:09:48 Test Item Value Reference Range Interpretation Comments LIPASE (test code = 6349592555) 171 U/L 0-220 Lab Interpretation (test code = Normal 29019-5) [facility] WITH [id number] 13:59:24 Test Item Value Reference Range Interpretation Comments WBC (test code = See_Comment [Automated message] 6690-2) The system [employer] generated this result transmitted ref erence range: 4.20 - 1 0.70 10*3/?L. The re ference range was not u sed to interpret this result as normal/abnor mal. RBC (test code = See_Comment [Automated message] 789-8) The system [employer] generated this result transmitted ref erence range: [...] RDW-SD (test code 45.8 fL 38.5-51.6 = 98171-1) RDW-CV (test code 13.5 % 12.1-15.4 = 788-0) PLT (test code = See_Comment [Automated message] 777-3) The system [employer] generated this result transmitted ref erence range: 150 - 32 8 10*3/?L. The re ference range was not u sed to interpret this result as normal/abnor mal. MPV (test code = 11.0 fL 9.8-13.0 99153-7) NRBC/100 WBC (test See_Comment [Automat ed message] code = 9184021373) The syste m which generated this result transmitted ref erence range: 0.0 - 10 .0 /100 WBCs. The refer ence range was not u sed to interpret this result as normal/abnor mal. NRBC x10^3 (test <0.01 See_Comment [Automated message] code = 9399924514) The syste m which generated this result transmitted ref erence range: 10*3/?L. The reference range was not used to interpr et this result as normal/abnormal . GRAN MAT (NEUT) % 47.3 % (test code = 770-8) IMM GRAN % (test 0.20 % code = 6446369954) LYMPH % (test code 33.4 % = 736-9) MONO % (test code 13.0 % = 5905-5) EOS % (test code = 5.2 % 713-8) BASO % (test code 0.9 % = 706-2) GRAN MAT 3.08 10*3/uL 1.99-6.95 x10^3(ANC) (test code = 7820208928) IMM GRAN x10^3 <0.03 0.00-0.06 (test code = 9642794735) LYMPH x10^3 (test 2.18 10*3/uL 1.09-3.23 code = 731-0) MONO x10^3 (test 0.85 10*3/uL 0.36-1.02 code = 742-7) EOS x10^3 (test 0.34 10*3/uL 0.06-0.53 code = 711-2) BASO x10^3 (test 0.06 10*3/uL 0.01-0.09 code = 704-7) [facility] PasoLAB ONLY COVID [id number] 15:23:58COVID DMT InterpretationInterpretation/Recommendations: Molecular NAAT Tests for [...] COVID-19 testing the patient has had at [facility], including molecular NAAT testing (more commonly known as PCR testing and Rapid ID Now testing) and antibody testing. It does not take into account any testing that a patient has had outside of the [facility] medical record. [facility] LABORATORY SERVICESCOVID Resul [id number] Rapid ID NOW (no units) ? ? Date ? Value ? 10/24/2020 ? Not Detected ? ? ? 07/28/2020 ? Not Detected ? [facility]Un[facility] [place] COMP. METABOLIC PANEL (20154)2020-10-26 12:44:29 Test Item Value Reference Range Interpretation Comments NA (test code = 135 mmol/L 135-145 4817655990) K (test code = 4.2 mmol/L 3.5-5.0 3853931323) CL (test code = 101 mmol/L 98-108 1649247003) CO2 TOTAL (test code = 25 mmol/L 23-31 7556962715) AGAP (test code = 2-16 2428271271) BUN (test code = 7 mg/dL 7-23 4907510607) GLUCOSE (test code = 84 mg/dL 70-110 9463146606) CREATININE (test code = 0.69 mg/dL 0.60-1.25 7329625745) TOTAL BILI (test code = 0.8 mg/dL 0.1-1.1 3530142676) CALCIUM (test code = 9.0 mg/dL 8.6-10.6 2821850325) T PROTEIN (test code = 6.3 g/dL 6.3-8.2 3888323565) ALBUMIN (test code = 3.5 g/dL 3.5-5.0 2544960660) ALK PHOS (test code = 83 U/L 34-122 2396223246) ALTv (test code = 37 U/L 5-50 1742-6) AST(SGOT) (test code = 45 U/L 13-40 H 9935101636) eGFR (test code = mL/min/1.73m2 0256066848) TAMIKO (test code = TAMIKO) Association of [...] tests). Lab Interpretation Abnormal (test code = 17576-0) [facility] PasoMAGNESIUM2021-06-17 15:46:06 Test Item Value Reference Range Interpretation Comments MAGNESIUM (test code = 6010288461) 1.4 mg/dL 1.7-2.4 L Lab Interpretation (test code = Abnormal 40590-5) [facility] METABOLIC PANEL (NA, K, CL, CO2, GLUCOSE, BUN, CREATININE, CA)2020-10-25 15:45:46 Test Item Value Reference Range Interpretation Comments NA (test code = 135 mmol/L 135-145 0210076063) K (test code = 3.1 mmol/L 3.5-5.0 L 3732314614) CL (test code = 106 mmol/L 98-108 4637403678) CO2 TOTAL (test code = 24 mmol/L 23-31 8347454717) AGAP (test code = 2-16 5662227027) BUN (test code = 4 mg/dL 7-23 L 8963346954) GLUCOSE (test code = 99 mg/dL 70-110 8137861000) CREATININE (test code = 0.61 mg/dL 0.60-1.25 7780696792) CALCIUM (test code = 7.4 mg/dL 8.6-10.6 L 7083462890) eGFR (test code = mL/min/1.73m2 6874158795) TAMIKO (test code = TAMIKO) Association of [...] tests). Lab Interpretation Abnormal (test code = 94363-0) [facility] ABDOMEN [id number] 23:59:57No evidence of acute sonographic abnormalities in [...] the main portal vein. [facility] IslandStreamcore System Results Inft User - 10/24/2020 7:01 PM [...] acute sonographic abnormalities in the abdomen.RL: [address] [id number] 17:24:18 Test Item Value Reference Range Interpretation Comments TROPONIN I (test 0.007 ng/mL See_Comment [Automated code = 3378968041) message] The system which generated this result [...] ? Lab Interpretation Normal (test code = 62497-0) [facility] Paso[facility]NESIUM2021-06-16 14:02:13 Test Item Value Reference Range Interpretation Comments MAGNESIUM (test code = 8305819600) 1.9 mg/dL 1.7-2.4 Lab Interpretation (test code = Normal 79992-6) [facility] PasoCritical Ecvy6264-98-03 13:45:35Jennifer Shea MD ? ? 10/24/2020 ?8:45 [...] patient's response to treatment and examination of patientUnBaptist Hospitals of [facility] TexasFREE [id number] 13:37:55 Test Item Value Reference Range Interpretation Comments FREE T4 (test code = See_Comment [Autom ated message] 3189097780) The system [employer] generated this result transmitted ref erence range: 0.78 - 2 .20 ng/dL:. The ref erence range was not u sed to interpret this result as normal/abnor mal. Lab Interpretation (test Normal code = 86015-1) [facility] PasoTHYROID STIMULATING [id number] 13:21:08 Test Item Value Reference Range Interpretation Comments TSH (test code = See_Comment [Automated message] 4580738389) The system [employer] generated this result transmitted ref erence range: 0.45 - 4 .70 mIU/L. The refe rence range was not u sed to interpret this result as normal/abnor mal. Lab Interpretation (test Normal code = 77565-7) [facility]COVID[facility] (ID NOW RAPID TESTING)2020-10-24 13:06:12 Test Item Value Reference Range Interpretation Comments SARS-CoV-2 Rapid ID NOW Not Detected Not Detected (test code = 11775-0) TAMIKO (test code = TAMIKO) ID NOW COVID-19 Assay is an isothermal nucleic acid amplification test intended for the qualitative detection of nucleic acid from SARS-CoV-2 viral RNA in nasopharyngeal (POSTAL TRANSPORTATION CLERK) specimens. It is used under Emergency Use [...] indicated. Lab Interpretation Normal (test code = 36272-9) [facility] PasoTROPONIN [id number] 13:00:47 Test Item Value Reference Range Interpretation Comments TROPONIN I (test 0.017 ng/mL See_Comment [Automated code = 7547382897) message] The system which generated this result [...] ? Lab Interpretation Normal (test code = 07663-2) [facility] PasoN-TERMINAL [id number] 12:54:30 Test Item Value Reference Range Interpretation Comments NT-proBNP (test code 22 pg/mL See_Comment [Autom ated = 0686418486) message] The system which generated this result transmitted reference range : <=125. The reference range was not used to interpret this result as normal/abnormal . TAMIKO (test code = TAMIKO) Biotin has been reported to cause a negative bias, interpret results relative to patient's use of biotin. Lab Interpretation Normal (test code = 14697-9) [facility] PasoETHANOL2021-06-16 12:51:47 Test Item Value Reference Range Interpretation Comments ALCOHOL (test code = 284 mg/dL 7792668884) TAMIKO (test code = TAMIKO) <10 Pevfmnem94-591 Toxic>100 Depression of OR FIRST ASSIST REGISTERED NURSE>400 Fatalities Reported [facility] PasoCREATINE [id number] 12:51:07 Test Item Value Reference Range Interpretation Comments CK (test code = 5981157972) 744 U/L 33-194 H Lab Interpretation (test code = Abnormal 82173-7) [facility] PasoLIPASE2021-06-16 12:51:07 Test Item Value Reference Range Interpretation Comments LIPASE (test code = 5979936681) 92 U/L 0-220 Lab Interpretation (test code = Normal 00637-1) [facility] PasoCOMP. METABOLIC PANEL (45607)2020-10-24 12:49:29 Test Item Value Reference Range Interpretation Comments NA (test code = 144 mmol/L 135-145 7095615327) K (test code = 3.5 mmol/L 3.5-5.0 4393895906) CL (test code = 98 mmol/L 98-108 8793583026) CO2 TOTAL (test code = 29 mmol/L 23-31 3820795208) AGAP (test code = 2-16 H 9196535374) BUN (test code = 7 mg/dL 7-23 4062096491) GLUCOSE (test code = 148 mg/dL 70-110 H 8790578128) CREATININE (test code = 0.84 mg/dL 0.60-1.25 4057556843) TOTAL BILI (test code = 0.4 mg/dL 0.1-1.8 5158604364) CALCIUM (test code = 9.1 mg/dL 8.6-10.6 2250498502) T PROTEIN (test code = 7.6 g/dL 6.3-8.2 8319710925) ALBUMIN (test code = 4.5 g/dL 3.5-5.0 9179226016) ALK PHOS (test code = 89 U/L 34-122 6686304449) ALTv (test code = 49 U/L 5-50 1742-6) AST(SGOT) (test code = 75 U/L 13-40 H 7614838057) eGFR (test code = mL/min/1.73m2 5167071209) TAMIKO (test code = TAMIKO) Association of [...] tests). Lab Interpretation Abnormal (test code = 91049-3) [facility] PasoCT CHEST PULMONARY [id number] 12:44:11 No pulmonary embolism to the level [...] reviewed this study and agree with theabove report.[facility] PasoURINE DRUG (IMMUNOASSAY) - COMPREHENSIVE DRUG [id number] 12:36:45 Test Item Value Reference Range Interpretation Comments AMPHET (test code = Negative Negative 1728147377) CLAUDIA U (test code = Negative Negative 2652162662) BENZO U (test code = Presumptive Positive Negative A 1884686850) Cocaine Metabolite (test Negative Negative code = 6587348880) METHADONE (test code = Negative Negative 9239675168) OPIATES (test code = Negative Negative 4639573628) PCP (test code = Negative Negative 1497974983) THC (test code = Negative Negative 3522368899) TAMIKO (test code = TAMIKO) Urine Drug [...] testing). Lab Interpretation (test Abnormal code = 97949-9) [facility] PasoURINALYSIS2021-06-16 12:18:19 Test Item Value Reference Range Interpretation Comments APPEARANCE (test code = Clear Clear 2523515347) COLOR (test code = Yellow Yellow 7873961207) PH (test code = 4.8-8.0 3059052595) SP GRAVITY (test code = 1.003-1.030 H 3769410080) GLU U QUAL (test code = Normal Normal 7654911299) BLOOD (test code = 1+ Negative A 5363133015) KETONES (test code = Negative Negative 7209183910) PROTEIN (test code = 100 mg/dL Negative A 2887-8) UROBILIN (test code = Normal Normal 2039587797) BILIRUBIN (test code = Negative Negative 0230815696) NITRITE (test code = Negative Negative 8379704840) LEUK GINO (test code = Negative Negative 5113755602) RBC/HPF (test code = See_Comment [Autom ated message] 4828133142) The system [employer] generated this result transmit luis reference range : 0 - 3 HPF. The refe rence range was not u sed to interpret th is result as normal/abnormal . WBC/HPF (test code = See_Comment [Autom ated message] 7036305997) The system [employer] generated this result transmit luis reference range : 0 - 5 HPF. The refe rence range was not u sed to interpret th is result as normal/abnormal . BACTERIA (test code = Few Negative A 4707524976) MUCOUS (test code = Slight Negative LPF A 1795299355) SQ EPITH (test code = <1 HPF 5146070236) HYAL CAST (test code = See_Comment H [Aut omated message] 2524192109) The system [employer] generated this result transmit luis reference range : <=2 LPF. The refere nce range was not u sed to interpret th is result as normal/abnormal . GRAN CASTS (test code = See_Comment H [Au tomated message] 1708438172) The system [employer] generated this result transmit luis reference range : <=1 LPF. The refere nce range was not u sed to interpret th is result as normal/abnormal . Lab Interpretation (test Abnormal code = 67926-4) [facility] PasoD-[id number] 12:16:48 Test Item Value Reference Interpretation Comments Range D-DIMER (test code = See_Comment H [Autom ated 5285731721) message] The system which generated this result [...] diagnosis. Lab Interpretation Abnormal (test code = 79775-3) [facility] PasoACTIVATED PARTIAL THRMPLAS [id number] 12:10:05 Test Item Value Reference Range Interpretation Comments APTT Patient (test See_Comment [Automat ed code = 3173-2) message] The system which generated this result transmitted reference range : 23 - 38 Seconds . The reference range was not used to interpr et this result as normal/abnormal . TAMIKO (test code = TAMIKO) The [facility] patient population mean normal value for aPTT is 30 seconds. Lab Interpretation Normal (test code = 72112-3) [facility] PasoPROTHROMBIN TIME / [id number] 12:08:09 Test Item Value Reference Range Interpretation [...] tions. Lab Interpretation (test Normal code = 86893-6) [facility] PasoCBC WITH [id number] 11:46:38 Test Item Value Reference Range Interpretation Comments WBC (test code = See_Comment [Automated 5290-2) message] The sy stem which generated this result transmitted reference range : 4.20 - 10.70 10*3/?L. The reference range was not used to interpret this result as normal/abnormal . RBC (test code = See_Comment [Automated 989-8) message] The sy stem which generated this [...] RDW-SD (test code = 43.2 fL 38.5-51.6 85143-3) RDW-CV (test code = 13.8 % 12.1-15.4 788-0) PLT (test code = See_Comment [Automated 777-3) message] The sy stem which generated this result transmitted reference range : 150 - 328 10*3/ ?L. The reference r javier was not used to interpret this result as normal/abnormal . MPV (test code = 9.1 fL 9.8-13.0 L 69189-4) NRBC/100 WBC (test See_Comment [Automat ed code = 2961785555) message] The system which generated this result transmitted reference range : 0.0 - 10.0 /100 WBCs. The refer ence range was not u sed to interpret th is result as normal/abnormal . NRBC x10^3 (test code <0.01 See_Comment [Auto mated = 6129738461) message] The s ystem which generated this result transmitted reference range : 10*3/?L. The reference range was not used to interpret this result as normal/abnormal . GRAN MAT (NEUT) % 58.2 % (test code = 770-8) IMM GRAN % (test code 0.40 % = 4957253972) LYMPH % (test code = 29.0 % 736-9) MONO % (test code = 10.1 % 5905-5) EOS % (test code = 1.2 % 713-8) BASO % (test code = 1.1 % 706-2) GRAN MAT x10^3(ANC) 4.82 10*3/uL 1.99-6.95 (test code = 3302325020) IMM GRAN x10^3 (test 0.03 10*3/uL 0.00-0.06 code = 8295272606) LYMPH x10^3 (test code 2.40 10*3/uL 1.09-3.23 = 731-0) MONO x10^3 (test code 0.84 10*3/uL 0.36-1.02 = 742-7) EOS x10^3 (test code = 0.10 10*3/uL 0.06-0.53 711-2) BASO x10^3 (test code 0.09 10*3/uL 0.01-0.09 = 704-7) Lab Interpretation Abnormal (test code = 10415-2) [facility] PasoPOCT GLUCOSE (AUTOMATED)2020-10-24 11:21:11 Test Item Value Reference Range Interpretation Comments POCT GLU (test code = 8475687802) 147 mg/dL 70-110 H Lab Interpretation (test code = Abnormal 07729-4) [facility] PasoTHYROID STIMULATING [id number] 19:43:06 Test Item Value Reference Range Interpretation Comments TSH (test code = See_Comment [Automated message] 5606883427) The system [employer] generated this result transmitted ref erence range: 0.45 - 4 .70 mIU/L. The refe rence range was not u sed to interpret this result as normal/abnor mal. Lab Interpretation (test Normal code = 14601-8) [facility] PasoaPTT2021-03-20 19:41:21 Test Item Value Reference Range Interpretation Comments APTT Patient (test See_Comment [Automat ed code = 3173-2) message] The system which generated this result transmitted reference range : 23 - 38 Seconds . The reference range was not used to interpr et this result as normal/abnormal . TAMIKO (test code = TAMIKO) The [facility] patient population mean normal value for aPTT is 30 seconds. Lab Interpretation Normal (test code = 12381-1) [facility] PasoFREE [id number] 19:29:44 Test Item Value Reference Range Interpretation Comments FREE T4 (test code = See_Comment [Autom ated message] 8651747194) The system [employer] generated this result transmitted ref erence range: 0.78 - 2 .20 ng/dL:. The ref erence range was not u sed to interpret this result as normal/abnor mal. Lab Interpretation (test Normal code = 86945-4) [facility] PasoTroponin [id number] 19:24:48 Test Item Value Reference Range Interpretation Comments TROPONIN I (test <0.012 See_Comment [Automated code = 6867882976) message] The system which generated this result [...] ? Lab Interpretation Normal (test code = 75834-0) [facility] PasoN-TERMINAL [id number] 19:21:28 Test Item Value Reference Range Interpretation Comments NT-proBNP (test code 47 pg/mL See_Comment [Autom ated = 6541464557) message] The system which generated this result transmitted reference range : <=125. The reference range was not used to interpret this result as normal/abnormal . TAMIKO (test code = TAMIKO) Biotin has been reported to cause a negative bias, interpret results relative to patient's use of biotin. Lab Interpretation Normal (test code = 23405-5) [facility] PasoBasi Metabolic Panel (NA, K, CL, CO2, GLUCOSE, BUN, CREATININE, CA)2020-07-28 19:12:46 Test Item Value Reference Range Interpretation Comments NA (test code = 137 mmol/L 135-145 4218638820) K (test code = 3.5 mmol/L 3.5-5.0 4979363081) CL (test code = 99 mmol/L 98-108 7672984460) CO2 TOTAL (test code = 26 mmol/L 23-31 2625425744) AGAP (test code = 2-16 9903920784) BUN (test code = 3 mg/dL 7-23 L 5445804403) GLUCOSE (test code = 96 mg/dL 70-110 7362543798) CREATININE (test code = 0.69 mg/dL 0.60-1.25 4818076185) CALCIUM (test code = 9.1 mg/dL 8.6-10.6 0150812632) eGFR Calculation mL/min/1.73m2 (Non-) (test code = 2836440148) eGFR Calculation mL/min/1.73m2 () (test code = 6109527089) TAMIKO (test code = TAMIKO) Association of [...] tests). Lab Interpretation Abnormal (test code = 74451-6) [facility] PasoHepatic Function Panel (ALB, T.PRO, BILI T, BU/BC, ALT, AST, ALK PHOS)2020-07-28 19:12:26 Test Item Value Reference Range Interpretation Comments TOTAL BILI (test code = 9911524236) 0.5 mg/dL 0.1-1.1 BILI UNCON (test code = 2034004980) 0.3 mg/dL 0.1-1.1 BILI CONJ (test code = 8497871188) 0.0 mg/dL 0.0-0.3 T PROTEIN (test code = 6407358442) 7.7 g/dL 6.3-8.2 ALBUMIN (test code = 7721363508) 4.7 g/dL 3.5-5.0 ALK PHOS (test code = 3939124333) 115 U/L 34-122 ALTv (test code = 1742-6) 29 U/L 5-50 AST(SGOT) (test code = 4992147756) 27 U/L 13-40 Lab Interpretation (test code = Normal 66263-8) [facility]APID TESTING)2020-07-28 19:00:24 Test Item Value Reference Range Interpretation Comments SARS-CoV-2 Rapid ID NOW Not Detected Not Detected (test code = 12399-7) TAMIKO (test code = TAMIKO) ID NOW COVID-19 Assay is an isothermal nucleic acid amplification test intended for the qualitative detection of nucleic acid from SARS-CoV-2 viral RNA in nasopharyngeal (POSTAL TRANSPORTATION CLERK) specimens. It is used under Emergency Use [...] indicated. Lab Interpretation Normal (test code = 09179-9) [facility] - DRUG SCREEN [id number] 18:56:58 Test Item Value Reference Range Interpretation Comments BENZO U (test code = Presumptive Positive Negative A 3444872679) CLAUDIA U (test code = Negative Negative 6413805968) AMPHET (test code = Presumptive Positive Negative A 1831443263) THC (test code = Negative Negative 1069820920) METHADONE (test code = Negative Negative 4237833766) Meth U (test code = Presumptive Positive Negative A 8656404560) OPIATES (test code = Presumptive Positive Negative A 7018910530) Cocaine Metabolite (test Negative Negative code = 1050022872) PROPOXY (test code = Negative Negative 0777263887) Tric U (test code = Negative Negative 9753362898) PCP (test code = Negative Negative 0289926393) OXYCOD (test code = Negative Negative 9747485519) TAMIKO (test code = TAMIKO) Urine Drug [...] testing). Lab Interpretation (test Abnormal code = 52261-1) [facility]inalysis2021-[facility] 18:54:32 Test Item Value Reference Range Interpretation Comments APPEARANCE (test code = Clear Clear 2804687974) COLOR (test code = Yellow Yellow 2666225226) PH (test code = 4.8-8.0 2723756966) SP GRAVITY (test code = 1.003-1.030 7869382118) GLU U QUAL (test code = Normal Normal 6849981451) BLOOD (test code = Negative Negative 1233158395) KETONES (test code = Negative Negative 3587138402) PROTEIN (test code = Negative Negative 2887-8) UROBILIN (test code = Normal Normal 3946459735) BILIRUBIN (test code = Negative Negative 6549725203) NITRITE (test code = Negative Negative 6078758376) LEUK GINO (test code = Negative Negative 2326361384) RBC/HPF (test code = See_Comment [Autom ated message] 2214199101) The system [employer] generated this result transmitted ref erence range: 0 - 3 HP F. The reference range was not used to int erpret this result as normal/abnormal . WBC/HPF (test code = <1 See_Comment [Autom ated message] 5757201040) The system [employer] generated this result transmitted ref erence range: 0 - 5 HP F. The reference range was not used to int erpret this result as normal/abnormal . BACTERIA (test code = Negative Negative 7658258306) Lab Interpretation (test Normal code = 72288-3) [facility] PasoProthrombin Time (PT) / [id number] 18:54:27 Test Item Value Reference Range Interpretation Comments PROTIME PATIENT (test See_Comment [Auto mated message] code = 5964-2) The system [employer] generated this result transmitted ref erence range: 12.0 - 1 4.7 Seconds. The re ference range was not u sed to interpret this result as normal/abnor mal. INR (test code = 6301-6) Nor mal INR <1.1; Warfarin Therap eutic range 2.0 to 3. 0 or 2.5 to 3.5, dep ending upon the indica tions. Lab Interpretation (test Normal code = 54257-6) [facility] with [id number] 18:41:23 Test Item Value Reference Range Interpretation Comments WBC (test code = See_Comment [Automated message] 6646-2) The system [employer] generated this result transmitted ref erence range: 4.20 - 1 0.70 10*3/?L. The re ference range was not u sed to interpret this result as normal/abnor mal. RBC (test code = See_Comment [Automated message] 299-8) The system [employer] generated this result transmitted ref erence range: [...] RDW-SD (test code 43.4 fL 38.5-51.6 = 14251-0) RDW-CV (test code 13.2 % 12.1-15.4 = 788-0) PLT (test code = See_Comment [Automated message] 187-3) The system [employer] generated this result transmitted ref erence range: 150 - 32 8 10*3/?L. The re ference range was not u sed to interpret this result as normal/abnor mal. MPV (test code = 9.9 fL 9.8-13.0 73815-8) NRBC/100 WBC (test See_Comment [Automat ed message] code = 8698160435) The syste [employer] which generated this result transmitted ref erence range: 0.0 - 10 .0 /100 WBCs. The refer ence range was not u sed to interpret this result as normal/abnor mal. NRBC x10^3 (test <0.01 See_Comment [Automated message] code = 0485670829) The syste m which generated this result transmitted ref erence range: 10*3/?L. The reference range was not used to interpr et this result as normal/abnormal . GRAN MAT (NEUT) % 68.0 % (test code = 770-8) IMM GRAN % (test 0.50 % code = 0482878581) LYMPH % (test code 18.2 % = 736-9) MONO % (test code 11.6 % = 5905-5) EOS % (test code = 1.1 % 713-8) BASO % (test code 0.6 % = 706-2) GRAN MAT 5.40 10*3/uL 1.99-6.95 x10^3(ANC) (test code = 9923093408) IMM GRAN x10^3 0.04 10*3/uL 0.00-0.06 (test code = 1291070788) LYMPH x10^3 (test 1.45 10*3/uL 1.09-3.23 code = 731-0) MONO x10^3 (test 0.92 10*3/uL 0.36-1.02 code = 742-7) EOS x10^3 (test 0.09 10*3/uL 0.06-0.53 code = 711-2) BASO x10^3 (test 0.05 10*3/uL 0.01-0.09 code = 704-7) [facility] [id number] 15:56:00 Test Item Value Reference Range Interpretation Comments TROPONIN I (test 0.006 ng/mL See_Comment [Automated code = 1667516993) message] The system which generated this result [...] ? Lab Interpretation Normal (test code = 66501-7) [facility] Paso[facility] [id number] 14:08:00 Test Item Value Reference Range Interpretation Comments TROPONIN I (test 0.021 ng/mL See_Comment Hemolyzed code = 2512819091) specimen [Automated message] The system which generated [...] ? Lab Interpretation Normal (test code = 39378-6) [facility] (NA, K, CL, CO2, GLUCOSE, BUN, CREATININE, CA)2020-06-30 13:25:00 Test Item Value Reference Range Interpretation Comments NA (test code = 138 mmol/L 135-145 0169201752) K (test code = 3.5 mmol/L 3.5-5 7565680784) CL (test code = 107 mmol/L 98-108 8130933852) CO2 TOTAL (test code = 20 mmol/L 23-31 L 6287039208) AGAP (test code = 2-16 7292418410) BUN (test code = 12 mg/dL 7-23 2849224881) GLUCOSE (test code = 93 mg/dL 70-110 9747729537) CREATININE (test code = 0.83 mg/dL 0.6-1.25 0769502746) CALCIUM (test code = 8.9 mg/dL 8.6-10.6 1542042901) eGFR Calculation mL/min/1.73m2 (Non-) (test code = 4528614824) eGFR Calculation mL/min/1.73m2 () (test code = 3519406820) TAMIKO (test code = TAMIKO) Association of [...] tests). Lab Interpretation Abnormal (test code = 47397-2) [facility] with [id number] 13:04:00 Test Item Value Reference Range Interpretation [...] RDW-SD (test code = 47.3 fL 38.5-51.6 28653-1) RDW-CV (test code = 14.1 % 12.1-15.4 788-0) PLT (test code = See_Comment [Automated 777-3) message] The sy stem which generated this result transmitted reference range : 150 - 328 10*3/ ?L. The reference r javier was not used to interpret this result as normal/abnormal . MPV (test code = 10.1 fL 9.8-13 90054-7) NRBC/100 WBC (test See_Comment [Automat ed code = 6148635278) message] The system which generated this result transmitted reference range : 0.0 - 10.0 /100 WBCs. The refer ence range was not u sed to interpret th is result as normal/abnormal . NRBC x10^3 (test code <0.01 See_Comment [Auto mated = 7294693053) message] The s ystem which generated this result transmitted reference range : 10*3/?L. The reference range was not used to interpret this result as normal/abnormal . GRAN MAT (NEUT) % 45.2 % (test code = 770-8) IMM GRAN % (test code 0.50 % = 8250095162) LYMPH % (test code = 39.0 % 736-9) MONO % (test code = 11.9 % 5905-5) EOS % (test code = 2.6 % 713-8) BASO % (test code = 0.8 % 706-2) GRAN MAT x10^3(ANC) 3.00 10*3/uL 1.99-6.95 (test code = 0457013403) IMM GRAN x10^3 (test 0.03 10*3/uL 0-0.06 code = 3575958210) LYMPH x10^3 (test code 2.58 10*3/uL 1.09-3.23 = 731-0) MONO x10^3 (test code 0.79 10*3/uL 0.36-1.02 = 742-7) EOS x10^3 (test code = 0.17 10*3/uL 0.06-0.53 711-2) BASO x10^3 (test code 0.05 10*3/uL 0.01-0.09 = 704-7) Lab Interpretation Abnormal (test code = 17019-0) [facility] Paso[facility] CHEST 1 [id number] 05:44:12 No acute cardiopulmonary abnormality. Preliminary Report [...] reviewed this study and agree with the abovereport.[facility] TROPONIN [id number] 05:05:00 Test Item Value Reference Range Interpretation Comments TROPONIN I (test <0.012 See_Comment [Automated code = 8979639783) message] The system which generated this result [...] ? Lab Interpretation Normal (test code = 16321-5) [facility] Paso[facility]. METABOLIC PANEL ([id number])2019-11-10 05:05:00 Test Item Value Reference Range Interpretation Comments NA (test code = 135 mmol/L 135-145 5973981856) K (test code = 3.6 mmol/L 3.5-5 5331936054) CL (test code = 102 mmol/L 98-108 5324483923) CO2 TOTAL (test code = 23 mmol/L 23-31 7963083243) AGAP (test code = 2-16 3767569927) BUN (test code = 15 mg/dL 7-23 0339608872) GLUCOSE (test code = 93 mg/dL 70-110 2728023142) CREATININE (test code 0.79 mg/dL 0.6-1.25 = 5201441104) TOTAL BILI (test code 0.4 mg/dL 0.1-1.1 = 0163827135) CALCIUM (test code = 9.4 mg/dL 8.6-10.6 9048478096) T PROTEIN (test code = 7.9 g/dL 6.3-8.2 9451109698) ALBUMIN (test code = 4.5 g/dL 3.5-5 2520602997) ALK PHOS (test code = 61 U/L 34-122 1954641441) ALTv (test code = 22 U/L 5-50 1742-6) AST(SGOT) (test code = 26 U/L 13-40 0123847120) eGFR Calculation mL/min/1.73m2 (Non-) (test code = 5019658567) eGFR Calculation mL/min/1.73m2 () (test code = 3515250133) TAMIKO (test code = TAMIKO) Association of [...] or urine or abnormalities in imaging tests). [facility] PasoaPTT2020-07-02 04:45:00 Test Item Value Reference Range Interpretation Comments APTT Patient (test See_Comment [Automat ed code = 3173-2) message] The system which generated this result transmitted reference range : 23 - 38 Seconds . The reference range was not used to interpr et this result as normal/abnormal . TAMIKO (test code = TAMIKO) The [facility] patient population mean normal value for aPTT is 30 seconds. Lab Interpretation Normal (test code = 90202-4) [facility] PasoPROTHROMBIN TIME / [id number] 04:45:00 Test Item Value Reference Range Interpretation [...] tions. Lab Interpretation (test Normal code = 49746-3) [facility] PasoCBC WITH [id number] 04:37:00 Test Item Value Reference Range Interpretation Comments WBC (test code = See_Comment [Automated 3390-2) message] The sy stem which generated this result transmitted reference range : 4.20 - 10.70 10*3/?L. The reference range was not used to interpret this result as normal/abnormal . RBC (test code = See_Comment [Automated 379-8) message] The sy stem which generated this [...] RDW-SD (test code = 39.7 fL 38.5-51.6 81768-5) RDW-CV (test code = 12.7 % 12.1-15.4 788-0) PLT (test code = See_Comment [Automated 777-3) message] The sy stem which generated this result transmitted reference range : 150 - 328 10*3/ ?L. The reference r javier was not used to interpret this result as normal/abnormal . MPV (test code = 10.3 fL 9.8-13 13074-2) NRBC/100 WBC (test See_Comment [Automat ed code = 9562399360) message] The system which generated this result transmitted reference range : 0.0 - 10.0 /100 WBCs. The refer ence range was not u sed to interpret th is result as normal/abnormal . NRBC x10^3 (test code <0.01 See_Comment [Auto mated = 4982961156) message] The s ystem which generated this result transmitted reference range : 10*3/?L. The reference range was not used to interpret this result as normal/abnormal . GRAN MAT (NEUT) % 47.9 % (test code = 770-8) IMM GRAN % (test code 0.20 % = 6923380208) LYMPH % (test code = 33.3 % 736-9) MONO % (test code = 12.1 % 5905-5) EOS % (test code = 5.7 % 713-8) BASO % (test code = 0.8 % 706-2) GRAN MAT x10^3(ANC) 5.08 10*3/uL 1.99-6.95 (test code = 9048650674) IMM GRAN x10^3 (test <0.03 0-0.06 code = 0454467597) LYMPH x10^3 (test code 3.53 10*3/uL 1.09-3.23 H = 731-0) MONO x10^3 (test code 1.28 10*3/uL 0.36-1.02 H = 742-7) EOS x10^3 (test code = 0.61 10*3/uL 0.06-0.53 H 711-2) BASO x10^3 (test code 0.09 10*3/uL 0.01-0.09 = 704-7) Lab Interpretation Abnormal (test code = 13225-9) [facility] PasoURINALYSIS2020-05-21 16:01:00 Test Item Value Reference Range Interpretation Comments APPEARANCE (test code = Clear Clear 1489035100) COLOR (test code = Other Yellow A 4740559504) PH (test code = 4.8-8.0 4385640976) SP GRAVITY (test code = <=1.005 1.003-1.030 2340761378) GLU U QUAL (test code = Negative Negative 0061558850) BLOOD (test code = Negative Negative 2197759292) KETONES (test code = Negative Negative 1518062675) PROTEIN (test code = Negative Negative 2887-8) UROBILIN (test code = 0.2 mg/dL See_Comment [Auto mated message] 4639626134) The system [employer] generated this result transmit luis reference range : 0-1.0 mg/dL. Th e reference range was not used to interpret this result as normal/abnormal . BILIRUBIN (test code = Negative Negative 5449684333) NITRITE (test code = Negative Negative 2580441375) LEUK GINO (test code = Negative Negative 2147453292) RBC/HPF (test code = See_Comment [Autom ated message] 4132437793) The system [employer] generated this result transmit luis reference range : 0 - 3 HPF. The refe rence range was not u sed to interpret th is result as normal/abnormal . WBC/HPF (test code = See_Comment [Autom ated message] 7956910607) The system [employer] generated this result transmit luis reference range : 0 - 5 HPF. The refe rence range was not u sed to interpret th is result as normal/abnormal . BACTERIA (test code = Negative Negative 2591759967) MUCOUS (test code = Slight Negative LPF A 9854055343) SQ EPITH (test code = HPF 9920315636) Lab Interpretation (test Abnormal code = 20113-5) [facility] PasoCOMP. METABOLIC PANEL ([id number])2019-09-29 15:57:00 Test Item Value Reference Range Interpretation Comments NA (test code = 140 mmol/L 135-145 8964472444) K (test code = 4.8 mmol/L 3.5-5 2335517750) CL (test code = 106 mmol/L 98-108 5622094518) CO2 TOTAL (test code = 24 mmol/L 23-31 6270981614) AGAP (test code = 2-16 3839363504) BUN (test code = 14 mg/dL 7-23 0489142199) GLUCOSE (test code = 94 mg/dL 70-110 2056014104) CREATININE (test code 0.66 mg/dL 0.6-1.25 = 3312073120) TOTAL BILI (test code 0.5 mg/dL 0.1-1.1 = 8428878765) CALCIUM (test code = 9.5 mg/dL 8.6-10.6 5743298832) T PROTEIN (test code = 8.1 g/dL 6.3-8.2 8989174281) ALBUMIN (test code = 4.6 g/dL 3.5-5 2790636702) ALK PHOS (test code = 41 U/L 34-122 5885194024) ALTv (test code = 17 U/L 5-50 1742-6) AST(SGOT) (test code = 29 U/L 13-40 8991724612) eGFR Calculation mL/min/1.73m2 (Non-) (test code = 7624341490) eGFR Calculation mL/min/1.73m2 () (test code = 4434905345) TAMIKO (test code = TAMIKO) Association of [...] or urine or abnormalities in imaging tests). [facility] WITH [id number] 15:34:00 Test Item Value Reference Range Interpretation Comments WBC (test code = See_Comment [Automated 1809-2) message] The sy stem which generated this result transmitted reference range : 4.20 - 10.70 10*3/?L. The reference range was not used to interpret this result as normal/abnormal . RBC (test code = See_Comment [Automated 047-8) message] The sy stem which generated this [...] RDW-SD (test code = 41.0 fL 38.5-51.6 73208-0) RDW-CV (test code = 12.5 % 12.1-15.4 788-0) PLT (test code = See_Comment [Automated 876-3) message] The sy stem which generated this result transmitted reference range : 150 - 328 10*3/ ?L. The reference r javier was not used to interpret this result as normal/abnormal . MPV (test code = 10.3 fL 9.8-13 78554-7) NRBC/100 WBC (test See_Comment [Automat ed code = 9632678818) message] The system which generated this result transmitted reference range : 0.0 - 10.0 /100 WBCs. The refer ence range was not u sed to interpret th is result as normal/abnormal . NRBC x10^3 (test code <0.01 See_Comment [Auto mated = 7519538930) message] The s ystem which generated this result transmitted reference range : 10*3/?L. The reference range was not used to interpret this result as normal/abnormal . GRAN MAT (NEUT) % 54.5 % (test code = 770-8) IMM GRAN % (test code 0.20 % = 5376959910) LYMPH % (test code = 28.0 % 736-9) MONO % (test code = 10.0 % 5905-5) EOS % (test code = 6.6 % 713-8) BASO % (test code = 0.7 % 706-2) GRAN MAT x10^3(ANC) 4.68 10*3/uL 1.99-6.95 (test code = 2797897364) IMM GRAN x10^3 (test <0.03 0-0.06 code = 6176188502) LYMPH x10^3 (test code 2.41 10*3/uL 1.09-3.23 = 731-0) MONO x10^3 (test code 0.86 10*3/uL 0.36-1.02 = 742-7) EOS x10^3 (test code = 0.57 10*3/uL 0.06-0.53 H 711-2) BASO x10^3 (test code 0.06 10*3/uL 0.01-0.09 = 704-7) Lab Interpretation Abnormal (test code = 83211-1) [facility] PasoLOGAN [id number] 13:56:00 Test Item Value Reference Range Interpretation Comments TROPONIN I (test <0.012 See_Comment [Automated code = 7082275564) message] The system which generated this result [...] ? Lab Interpretation Normal (test code = 72407-3) [facility] PasoPROTHROMBIN TIME / [id number] 13:44:00 Test Item Value Reference Range Interpretation Comments PROTIME PATIENT (test See_Comment [Auto mated message] code = 5964-2) The system [employer] generated this result transmitted ref erence range: 12.0 - 1 4.7 Seconds. The re ference range was not u sed to interpret this result as normal/abnor mal. INR (test code = 6301-6) Nor mal INR <1.1; Warfarin Therap eutic range 2.0 to 3. 0 or 2.5 to 3.5, dep ending upon the indica tions. Lab Interpretation (test Normal code = 10265-2) [facility] PasoCOMP. METABOLIC PANEL ([id number])2019-06-16 13:44:00 Test Item Value Reference Range Interpretation Comments NA (test code = 138 mmol/L 135-145 8336415972) K (test code = 3.9 mmol/L 3.5-5 6537750838) CL (test code = 100 mmol/L 98-108 2930764090) CO2 TOTAL (test code = 28 mmol/L 23-31 8080974284) AGAP (test code = 2-16 4569451746) BUN (test code = 14 mg/dL 7-23 6357800232) GLUCOSE (test code = 108 mg/dL 70-110 7643510964) CREATININE (test code = 0.75 mg/dL 0.6-1.25 1862760785) TOTAL BILI (test code = 0.5 mg/dL 0.1-1.0 3704115779) CALCIUM (test code = 8.8 mg/dL 8.6-10.6 1429285333) T PROTEIN (test code = 7.3 g/dL 6.3-8.2 2482384487) ALBUMIN (test code = 4.4 g/dL 3.5-5 7602662481) ALK PHOS (test code = 63 U/L 34-122 0913767123) ALTv (test code = 48 U/L 5-50 1742-6) AST(SGOT) (test code = 47 U/L 13-40 H 3669175083) eGFR Calculation mL/min/1.73m2 (Non-) (test code = 6298515100) eGFR Calculation mL/min/1.73m2 () (test code = 4585933206) TAMIKO (test code = TAMIKO) Association of [...] tests). Lab Interpretation Abnormal (test code = 06375-4) [facility] PasoLIPASE, [id number] 13:44:00 Test Item Value Reference Range Interpretation Comments LIPASE (test code = 9748946782) 61 U/L 0-220 Lab Interpretation (test code = Normal 15598-7) [facility] PasoaPTT2020-02-06 13:43:00 Test Item Value Reference Range Interpretation Comments APTT Patient (test See_Comment [Automat ed code = 3173-2) message] The system which generated this result transmitted reference range : 23 - 38 Seconds . The reference range was not used to interpr et this result as normal/abnormal . TAMIKO (test code = TAMIKO) The [facility] patient population mean normal value for aPTT is 30 seconds. Lab Interpretation Normal (test code = 96220-2) [facility] PasoCBC WITH [id number] 13:30:00 Test Item Value Reference Range Interpretation Comments WBC (test code = See_Comment [Automated 1890-2) message] The sy stem which generated this result transmitted reference range : 4.20 - 10.70 10*3/?L. The reference range was not used to interpret this result as normal/abnormal . RBC (test code = See_Comment [Automated 859-8) message] The sy stem which generated this [...] RDW-SD (test code = 40.6 fL 38.5-51.6 61434-9) RDW-CV (test code = 12.6 % 12.1-15.4 788-0) PLT (test code = See_Comment [Automated 777-3) message] The sy stem which generated this result transmitted reference range : 150 - 328 10*3/ ?L. The reference r javier was not used to interpret this result as normal/abnormal . MPV (test code = 9.7 fL 9.8-13 L 72722-4) NRBC/100 WBC (test See_Comment [Automat ed code = 6863810864) message] The system which generated this result transmitted reference range : 0.0 - 10.0 /100 WBCs. The refer ence range was not u sed to interpret th is result as normal/abnormal . NRBC x10^3 (test code <0.01 See_Comment [Auto mated = 6635259894) message] The s ystem which generated this result transmitted reference range : 10*3/?L. The reference range was not used to interpret this result as normal/abnormal . GRAN MAT (NEUT) % 52.5 % (test code = 770-8) IMM GRAN % (test code 0.30 % = 1643329589) LYMPH % (test code = 29.9 % 736-9) MONO % (test code = 11.5 % 5905-5) EOS % (test code = 4.5 % 713-8) BASO % (test code = 1.3 % 706-2) GRAN MAT x10^3(ANC) 3.14 10*3/uL 1.99-6.95 (test code = 4410333432) IMM GRAN x10^3 (test <0.03 0-0.06 code = 0108327746) LYMPH x10^3 (test code 1.79 10*3/uL 1.09-3.23 = 731-0) MONO x10^3 (test code 0.69 10*3/uL 0.36-1.02 = 742-7) EOS x10^3 (test code = 0.27 10*3/uL 0.06-0.53 711-2) BASO x10^3 (test code 0.08 10*3/uL 0.01-0.09 = 704-7) Lab Interpretation Abnormal (test code = 20307-4) [facility] PasoTROPONIN [id number] 19:02:00 Test Item Value Reference Range Interpretation Comments TROPONIN I (test <0.012 See_Comment [Automated code = 2260193628) message] The system which generated this result [...] ? Lab Interpretation Normal (test code = 54785-7) [facility] PasoCOM. METABOLIC PANEL ([id number])2019-06-15 18:50:00 Test Item Value Reference Range Interpretation Comments NA (test code = 145 mmol/L 135-145 9570928321) K (test code = 4.1 mmol/L 3.5-5 2409685279) CL (test code = 103 mmol/L 98-108 8672650006) CO2 TOTAL (test code = 32 mmol/L 23-31 H 5604153566) AGAP (test code = 2-16 9374129715) BUN (test code = 11 mg/dL 7-23 0362474891) GLUCOSE (test code = 108 mg/dL 70-110 1166492912) CREATININE (test code = 0.73 mg/dL 0.6-1.25 5054375287) TOTAL BILI (test code = 0.5 mg/dL 0.1-1.8 3497446236) CALCIUM (test code = 9.3 mg/dL 8.6-10.6 3374616162) T PROTEIN (test code = 8.1 g/dL 6.3-8.2 1190810953) ALBUMIN (test code = 4.9 g/dL 3.5-5 2119728466) ALK PHOS (test code = 65 U/L 34-122 9880015013) ALTv (test code = 61 U/L 5-50 H 1742-6) AST(SGOT) (test code = 45 U/L 13-40 H 5703973934) eGFR Calculation mL/min/1.73m2 (Non-) (test code = 4244011860) eGFR Calculation mL/min/1.73m2 () (test code = 5054690749) TAMIKO (test code = TAMIKO) Association of [...] tests). Lab Interpretation Abnormal (test code = 76297-2) [facility] PasoMAGNESIUM2020-02-05 18:50:00 Test Item Value Reference Range Interpretation Comments MAGNESIUM (test code = 0328937499) 2.2 mg/dL 1.7-2.4 Lab Interpretation (test code = Normal 99477-6) [facility] PasoCB WITH [id number] 18:39:00 Test Item Value Reference Range Interpretation Comments WBC (test code = See_Comment [Automated message] 5990-2) The system [employer] generated this result transmitted ref erence range: 4.20 - 1 0.70 10*3/?L. The re ference range was not u sed to interpret this result as normal/abnor mal. RBC (test code = See_Comment [Automated message] 969-8) The system [employer] generated this result transmitted ref erence range: [...] RDW-SD (test code 41.5 fL 38.5-51.6 = 94468-0) RDW-CV (test code 12.9 % 12.1-15.4 = 788-0) PLT (test code = See_Comment [Automated message] 777-3) The system whic h generated this result transmitted ref erence range: 150 - 32 8 10*3/?L. The re ference range was not u sed to interpret this result as normal/abnor mal. MPV (test code = 10.0 fL 9.8-13 68832-3) NRBC/100 WBC (test See_Comment [Automat ed message] code = 6927558109) The syste m which generated this result transmitted ref erence range: 0.0 - 10 .0 /100 WBCs. The refer ence range was not u sed to interpret this result as normal/abnor mal. NRBC x10^3 (test <0.01 See_Comment [Automated message] code = 7638462851) The syste m which generated this result transmitted ref erence range: 10*3/?L. The reference range was not used to interpr et this result as normal/abnormal . GRAN MAT (NEUT) % 45.9 % (test code = 770-8) IMM GRAN % (test 0.10 % code = 2689374997) LYMPH % (test code 39.6 % = 736-9) MONO % (test code 8.6 % = 5905-5) EOS % (test code = 4.6 % 713-8) BASO % (test code 1.2 % = 706-2) GRAN MAT 3.36 10*3/uL 1.99-6.95 x10^3(ANC) (test code = 7650789154) IMM GRAN x10^3 <0.03 0-0.06 (test code = 6465712704) LYMPH x10^3 (test 2.91 10*3/uL 1.09-3.23 code = 731-0) MONO x10^3 (test 0.63 10*3/uL 0.36-1.02 code = 742-7) EOS x10^3 (test 0.34 10*3/uL 0.06-0.53 code = 711-2) BASO x10^3 (test 0.09 10*3/uL 0.01-0.09 code = 704-7) [facility] [id number] 18:31:36HISTORY: SOB. TECHNIQUE: Portable AP erect view [...] limits. CONCLUSIONS: No signs of acute cardiopulmonary disease.[facility] FLU A AND B (MOLECULAR)2019 16:36:00 Test Item Value Reference Range Interpretation Comments POCT INFLUENZA A (test code = negative Negative - Negative 3840) POCT INFLUENZA B (test code = negative Negative - Negative 3841) Lab Interpretation (test code = Normal 09345-6) [facility] GRP A STREP (MOLECULAR)2019 16:34:00 Test Item Value Reference Range Interpretation Comments POCT GP A STREP (test code = negative Negative - Negative 31527-4) Lab Interpretation (test code = Normal 24120-4) [facility] 23:07:00 Test Item Value Reference Range Interpretation Comments APPEARANCE (test code = Clear Clear 8426525266) COLOR (test code = Yellow Yellow 6972823836) PH (test code = 4.8-8.0 5640561994) SP GRAVITY (test code = 1.003-1.030 8492931305) GLU U QUAL (test code = Normal Normal 2830653697) BLOOD (test code = Negative Negative 0020057068) KETONES (test code = 5 mg/dL Negative A 9859417322) PROTEIN (test code = Negative Negative 2887-8) UROBILIN (test code = Normal Normal 2728856563) BILIRUBIN (test code = Negative Negative 9006093362) NITRITE (test code = Negative Negative 6380891806) LEUK GINO (test code = Negative Negative 4335052726) RBC/HPF (test code = See_Comment [Autom ated message] 5187212593) The system [employer] generated this result transmitted ref erence range: 0 - 3 HP F. The reference range was not used to int erpret this result as normal/abnormal . WBC/HPF (test code = See_Comment [Autom ated message] 9243514494) The system [employer] generated this result transmitted ref erence range: 0 - 5 HP F. The reference range was not used to int erpret this result as normal/abnormal . BACTERIA (test code = Negative Negative 9448598511) MUCOUS (test code = Slight Negative LPF A 0808783851) HYAL CAST (test code = See_Comment H [Aut omated message] 2411874039) The system [employer] generated this result transmitted ref erence range: <=2 LPF. The reference range was not used to int erpret this result as normal/abnormal . Lab Interpretation (test Abnormal code = 53371-2) [facility] [id number] 22:42:00 Test Item Value Reference Range Interpretation Comments TROPONIN I (test 0.002 ng/mL See_Comment [Automated code = 8327292593) message] The system which generated this result [...] ? Lab Interpretation Normal (test code = 59922-6) [facility] - DRUG SCREEN [id number] 22:36:00 Test Item Value Reference Range Interpretation Comments BENZO U (test code = Presumptive Positive Negative A 4550666174) CLAUDIA U (test code = Negative Negative 8228757968) AMPHET (test code = Negative Negative 6593049142) THC (test code = Negative Negative 0463367321) METHADONE (test code = Negative Negative 2970612212) Meth U (test code = Negative Negative 3910830609) OPIATES (test code = Negative Negative 6679953853) Cocaine Metabolite (test Negative Negative code = 9689055870) PROPOXY (test code = Negative Negative 3162885648) Tric U (test code = Negative Negative 0426914169) PCP (test code = Negative Negative 8817223624) OXYCOD (test code = Negative Negative 7472051922) TAMIKO (test code = TAMIKO) Urine Drug [...] testing). Lab Interpretation (test Abnormal code = 13283-1) [facility]OLIC PAN[facility] (88669)2019-01-24 22:30:00 Test Item Value Reference Range Interpretation Comments NA (test code = 148 mmol/L 135-145 H 6156845371) K (test code = 4.0 mmol/L 3.5-5 6898282285) CL (test code = 110 mmol/L 98-108 H 1965270433) CO2 TOTAL (test code = 24 mmol/L 23-31 1633960919) AGAP (test code = 2-16 1487637633) BUN (test code = 9 mg/dL 7-23 2172912728) GLUCOSE (test code = 85 mg/dL 70-110 9074921679) CREATININE (test code = 0.67 mg/dL 0.6-1.25 1983919621) TOTAL BILI (test code = 0.2 mg/dL 0.1-1.3 4699358698) CALCIUM (test code = 8.7 mg/dL 8.6-10.6 3089972874) T PROTEIN (test code = 7.8 g/dL 6.3-8.2 1852795501) ALBUMIN (test code = 4.7 g/dL 3.5-5 2051878334) ALK PHOS (test code = 47 U/L 34-122 8914279263) ALT(SGPT) (test code = 19 U/L 9-51 4428201937) AST(SGOT) (test code = 25 U/L 13-40 2657210566) eGFR Calculation mL/min/1.73m2 (Non-) (test code = 1062300847) eGFR Calculation mL/min/1.73m2 () (test code = 5799603788) TAMIKO (test code = TAMIKO) Association of Glomerular Filtration Rate (GFR) and Staging of Kidney Disease*+ + + +| GFR (mL/min/1.73 m2)?| With Kidney Damage?|?Without Kidney Damage+ --------+ --------+ +|?>90?|?S jonathan one?|? Normal?+ ---------+ ---------+ +|?60-89? |?Stage two?|? [...] tests). Lab Interpretation Abnormal (test code = 47584-5) [facility] 22:30:00 Test Item Value Reference Range Interpretation Comments LIPASE (test code = 8698726347) 112 U/L 0-220 Lab Interpretation (test code = Normal 08060-8) [facility] WITH [id number] 22:07:00 Test Item Value Reference Range Interpretation Comments WBC (test code = See_Comment [Automated message] 6690-2) The system [employer] generated this result transmitted ref erence range: 4.20 - 1 0.70 10*3/?L. The re ference range was not u sed to interpret this result as normal/abnor mal. RBC (test code = See_Comment [Automated message] 979-8) The system [employer] generated this result transmitted ref erence range: [...] RDW-SD (test code 42.0 fL 38.5-51.6 = 44613-4) RDW-CV (test code 12.8 % 12.1-15.4 = 788-0) PLT (test code = See_Comment [Automated message] 127-3) The system [employer] generated this result transmitted ref erence range: 150 - 32 8 10*3/?L. The re ference range was not u sed to interpret this result as normal/abnor mal. MPV (test code = 10.7 fL 9.8-13 52384-1) NRBC/100 WBC (test See_Comment [Automat ed message] code = 4390577939) The [employer] which generated this result transmitted ref erence range: 0.0 - 10 .0 /100 WBCs. The refer ence range was not u sed to interpret this result as normal/abnor mal. NRBC x10^3 (test <0.01 See_Comment [Automated message] code = 6746332277) The syste m which generated this result transmitted ref erence range: 10*3/?L. The reference range was not used to interpr et this result as normal/abnormal . GRAN MAT (NEUT) % 55.2 % (test code = 770-8) IMM GRAN % (test 0.20 % code = 5618082541) LYMPH % (test code 29.8 % = 736-9) MONO % (test code 9.8 % = 5905-5) EOS % (test code = 4.4 % 713-8) BASO % (test code 0.6 % = 706-2) GRAN MAT 4.72 10*3/uL 1.99-6.95 x10^3(ANC) (test code = 3502822224) IMM GRAN x10^3 <0.03 0-0.06 (test code = 4201571879) LYMPH x10^3 (test 2.55 10*3/uL 1.09-3.23 code = 731-0) MONO x10^3 (test 0.84 10*3/uL 0.36-1.02 code = 742-7) EOS x10^3 (test 0.38 10*3/uL 0.06-0.53 code = 711-2) BASO x10^3 (test 0.05 10*3/uL 0.01-0.09 code = 704-7) [facility] 23:03:00 Test Item Value Reference Range Interpretation Comments APPEARANCE (test code = Clear Clear 3522004982) COLOR (test code = Yellow Yellow 8711678445) PH (test code = 4.8-8.0 3876931709) SP GRAVITY (test code = >=1.030 1.003-1.030 4335061542) GLU U QUAL (test code = Negative Negative 3870528080) BLOOD (test code = Negative Negative 9671610174) KETONES (test code = Negative Negative 3614217685) PROTEIN (test code = Negative Negative 2887-8) UROBILIN (test code = 0.2 mg/dL See_Comment [Auto mated message] 8373450627) The system [employer] generated this result transmit luis reference range : 0-1.0 mg/dL. Th e reference range was not used to interpret this result as normal/abnormal . BILIRUBIN (test code = Negative Negative 7804018935) NITRITE (test code = Negative Negative 9153103382) LEUK GINO (test code = Negative Negative 5306206990) RBC/HPF (test code = See_Comment [Autom ated message] 2739265779) The system [employer] generated this result transmit luis reference range : 0 - 3 HPF. The refe rence range was not u sed to interpret th is result as normal/abnormal . WBC/HPF (test code = See_Comment [Autom ated message] 1186934043) The system [employer] generated this result transmit luis reference range : 0 - 5 HPF. The refe rence range was not u sed to interpret th is result as normal/abnormal . BACTERIA (test code = Few Negative A 9560400902) Lab Interpretation (test Abnormal code = 26160-7) [facility]. METABOLIC PANEL (07347)2018-12-21 22:57:00 Test Item Value Reference Range Interpretation Comments NA (test code = 145 mmol/L 135-145 8208714170) K (test code = 3.7 mmol/L 3.5-5 5252385866) CL (test code = 106 mmol/L 98-108 2322412863) CO2 TOTAL (test code = 24 mmol/L 23-31 8820579977) AGAP (test code = 2-16 4726584499) BUN (test code = 9 mg/dL 7-23 4991877004) GLUCOSE (test code = 129 mg/dL 70-110 H 3121725352) CREATININE (test code = 0.75 mg/dL 0.6-1.25 8077770373) TOTAL BILI (test code = 0.3 mg/dL 0.1-1.3 9313753793) CALCIUM (test code = 9.1 mg/dL 8.6-10.6 8197205429) T PROTEIN (test code = 7.9 g/dL 6.3-8.2 1681812683) ALBUMIN (test code = 4.5 g/dL 3.5-5 3139292156) ALK PHOS (test code = 66 U/L 34-122 6425485841) ALT(SGPT) (test code = 62 U/L 9-51 H 6609193099) AST(SGOT) (test code = 42 U/L 13-40 H 1525551908) eGFR Calculation mL/min/1.73m2 (Non-) (test code = 2518874511) eGFR Calculation mL/min/1.73m2 () (test code = 4468145538) TAMIKO (test code = TAMIKO) Association of [...] tests). Lab Interpretation Abnormal (test code = 83184-3) [facility]2019-[facility] 22:57:00 Test Item Value Reference Range Interpretation Comments LIPASE (test code = 0000853143) 296 U/L 0-220 H Lab Interpretation (test code = Abnormal 73999-8) [facility]2019-[facility]13 22:57:00 Test Item Value Reference Range Interpretation Comments MAGNESIUM (test code = 9587828511) 1.9 mg/dL 1.7-2.4 Lab Interpretation (test code = Normal 71077-9) [facility] WITH [id number] 22:38:00 Test Item Value Reference Range Interpretation [...] RDW-SD (test code = 44.4 fL 38.5-51.6 54145-5) RDW-CV (test code = 13.3 % 12.1-15.4 788-0) PLT (test code = See_Comment [Automated 777-3) message] The sy stem which generated this result transmitted reference range : 150 - 328 10*3/ ?L. The reference r javier was not used to interpret this result as normal/abnormal . MPV (test code = 10.0 fL 9.8-13 40439-7) NRBC/100 WBC (test See_Comment [Automat ed code = 7296439680) message] The system which generated this result transmitted reference range : 0.0 - 10.0 /100 WBCs. The refer ence range was not u sed to interpret th is result as normal/abnormal . NRBC x10^3 (test code <0.01 See_Comment [Auto mated = 7270085262) message] The s [employer] which generated this result transmitted reference range : 10*3/?L. The reference range was not used to interpret this result as normal/abnormal . GRAN MAT (NEUT) % 53.1 % (test code = 770-8) IMM GRAN % (test code 0.50 % = 1998948549) LYMPH % (test code = 27.1 % 736-9) MONO % (test code = 10.7 % 5905-5) EOS % (test code = 7.7 % 713-8) BASO % (test code = 0.9 % 706-2) GRAN MAT x10^3(ANC) 5.47 10*3/uL 1.99-6.95 (test code = 5037677489) IMM GRAN x10^3 (test 0.05 10*3/uL 0-0.06 code = 4362274901) LYMPH x10^3 (test code 2.79 10*3/uL 1.09-3.23 = 731-0) MONO x10^3 (test code 1.10 10*3/uL 0.36-1.02 H = 742-7) EOS x10^3 (test code = 0.79 10*3/uL 0.06-0.53 H 711-2) BASO x10^3 (test code 0.09 10*3/uL 0.01-0.09 = 704-7) Lab Interpretation Abnormal (test code = 09880-2) [facility]MY[facility], MULTI, [id number] 14:45:00FINAL REPORT PROCEDURE: Rest/Stress MYOCARDIAL PERFUSION SPECT with treadmill\\XA9\\ CPT CODE: 27567 INDICATION: Chest pain HISTORY: Cardiac risk factors: [...] rest or with stress(JACC. 2012;59(9):857-81.) Signed: Ignacio Ruvalcabaeport Verified Date/Time: 03/17/2017 14:45:11 Reading Location: [address] Reading Room HEMOGLOBIN [id number] 08:29:00 Test Item Value Reference Range Interpretation Comments HEMOGLOBIN A1C (BEAKER) (test code = 5.5 % 4.3-6.1 368) TROPONIN [id number] 02:45:00 Test Item Value Reference Range Interpretation [...] Normal6.7-10.0 Borderline>10.0 AbnormalRAD, CHEST, 1 VIEW, NON [id number] 20:40:00Reason for exam:- >chest painShould this be performed at the bedside?->YesFINAL REPORT EXAMINATION: AP PORTABLE CHEST RADIOGRAPH CLINICAL INDICATION:Chest pain IMPRESSION: Compared with 04/30/2016. No evidence of focal lung consolidation, pulmonary edema or pleural effusion. The heart size is normal. Mediastinal contours are sharp. No evidence of an acute osseous abnormality or pneumothorax. Signed: Igor Castleeport Verified Date/Time: 03/16/2017 20:40:21 Reading Location: [address] Reading Room B-TYPE NATRIURETIC FACTOR (BNP)2017-03-16 20:30:00 Test Item Value Reference Range Interpretation Comments B-TYPE NATRIURETIC PEPTIDE (BEAKER) < pg/mL 0-100 (test code = 700) COMPREHENSIVE METABOLIC [id number] 20:30:00 Test Item Value Reference Range Interpretation [...] ATED GFR. CREATINE KINASE (CK), TOTAL AND [id number] 20:28:00 Test Item Value Reference Range Interpretation Comments CREATINE KINASE TOTAL (BEAKER) 50 U/L 29-200 (test code = 380) CREATINE KINASE-MB (BEAKER) (test 0.5 ng/mL 0.0-6.6 code = 750) CREATINE KINASE-MB INDEX (BEAKER) 1.0 % (test code = 395) CK-MB Reference Range:<6.7 Normal6.7-10.0 Borderline>10.0 AbnormalTROPONIN [id number] 20:28:00 Test Item Value Reference Range Interpretation [...] failure, acidosis, acute neurological disease, and persistent tachyarrhythmia.[id number] 20:21:00 Test Item Value Reference Range Interpretation Comments MAGNESIUM (BEAKER) 2.2 mg/dL 1.6-2.6 Specimen slightly (test code = 627) hemolyzed [id number] 20:21:00 Test Item Value Reference Range Interpretation Comments PHOSPHORUS (BEAKER) 3.9 mg/dL 2.3-4.7 Specimen slightly (test code = 604) hemolyzed LIPID [id number] 20:21:00 Test Item Value Reference Range Interpretation [...] Borderline 130-159 High 160-189 Very High >=190PROTHROMBIN TIME/[id number] 20:07:00 Test Item Value Reference Range Interpretation Comments PROTIME (BEAKER) (test code = 13.0 seconds 11.7-14.7 759) INR (BEAKER) (test code = 370) 1.0 <=5.9 RECOMMENDED COUMADIN/WARFARIN INR THERAPY RANGESSTANDARD DOSE: 2.0 - 3.0 Includes: PROPHYLAXIS forvenous thrombosis, systemic embolization; TREATMENT for venous thrombosis and/or pulmonary embolus.HIGH RISK: Target INR is 2.5-3.5 for patients with mechanical heart valves.[id number] 20:07:00 Test Item Value Reference Range Interpretation Comments PARTIAL THROMBOPLASTIN TIME 26.9 seconds 22.5-36.0 (BEAKER) (test code = 760) CBC W/PLT COUNT & AUTO [id number] 19:57:00 Test Item Value Reference Range Interpretation [...]
== END 2021-11-27 08:45 | disposition home or self-care (01) ==
LOC: ER 06:43
DX: R51.9 Headache, unspecified (principal); I10 Essential (primary) hypertension; F32.A Depression, unspecified; Z20.822 Contact with and (suspected) exposure to COVID-19
CPT/HCPCS: 36415; 80053; 82550; 83690; 85025; J2405; J7030; U0003

== ENCOUNTER 2021-12-02 03:17 | Emergency (ER) | payer SELFPAY ==
--- OUTSIDE RECORDS SUMMARY | 2021-12-02 03:31 | XMS REPORT | Continuity of Care Document ---
:1985 Author Organization [facility] t Address [address] [place] [address] Care Team Providers Name Role Phone PRADEEP [...] Policy Number Effective Date Expiration Date S [facility] [id number] FPC 00:00:00 Problems Condition Condition Condition Status Onset Resolution Last Treating Co mments Source Name Details Category Date Date Treatment Clinician Date GEREMIAS (acute GEREMIAS (acute Disease Active U nivers kidney kidney 7-12 ity of injury) injury) 00:00: [place] [address] [place] [address] Branch CULLEN CULLEN Disease Active Univers (dyspnea (dyspnea 4-28 ity of on on 00:00: [place] exertion) exertion) 00 Medi kofi Branch Dyslipidem Dyslipidem Disease Active U nivers ia ia 3-29 ity of 00:00: [place] [facility] Branch Anxiety Anxiety Disease Active 2020-05 Univers 2-26 ity of 00:00: [address] Branch Cigarette Cigarette Disease Active 2020-05 Uni vers smoker smoker 2-26 ity of 00:00: [address] Branch Elevated Elevated Disease Active 2020-05 Unive rs brain brain 2-26 ity of natriureti natriureti [place] c peptide c peptide 00 [facility] (BNP) (BNP) Branch level level Withdrawal Withdrawal Disease Active U nivers symptoms, symptoms, 6-16 ity of alcohol, alcohol, 00:00: [place] uncomplica uncomplica 00 Me dical luis luis Branch Obesity Obesity Disease Active Univers (BMI (BMI 6-16 ity of 30-39.9) 30-39.9) 00:00: [address] Alcohol Alcohol Disease Active Methodi dependence [...] 7- it y of on on 00:00: [place] [facility] Branch Family Family Disease Active Univers history of history of 7 it y of early CAD early CAD [place] [facility] Family Family Disease Active Univers history of history of 7- it [place] of early CAD early CAD [place] [facility] Chest pain Chest pain Disease Active U nivers 7- ity of 00:00: [place] [facility] Chest pain Chest pain Disease Active 2016-[address] [facility] [address] Chest Chest Disease Active 2015-[address] [facility] pain, pain, 2-21 [facility] unspecifie unspecifie 00:00: Me dical d type d type 00 Center Allergies, Adverse Reactions, Alerts Allergy Allergy Status Severity Reaction(s) Onset Inactive Treating Comm ents Source Name Type Date Date Clinician NO KNOWN Allergy Active [facility] ALLERGIE S NO KNOWN Drug Active Univers ALLERGIE Class ity of S [facility] Family History Family Member Diagnosis Comments Start Date Stop Date Source Natural father [facility] Maternal aunt Depression [facility] Maternal uncle Alcohol abuse [facility] Maternal uncle Depression [facility] Maternal [facility]s [facility] Paternal grandfather Heart attack [facility] Social History Social Habit Start Date Stop Date Quantity Comments Source History of tobacco Cigarette Smoker University of use [facility] Branch History SDOH University o f [facility] SD[facility] University o f Alcohol Std Drinks [facility] Branch History [facility] University o f Alcohol Comment [facility] ical Branch Exposure to 2021-11-11 2021-11-21 Not sure University of SARS-CoV-2 (event) 00:00:00 06:51:00 [facility] Alcohol intake 2021-11-21 2021-11-21 Current drinker Unive rsity of 00:00:00 00:00:00 of alcohol [facility] (finding) Branch Cigarettes smoked 2021-09-05 2021-09-05 Univers ity of current (pack per 00:00:00 00:00:00 [facility]) - Reported Branch Tobacco use and 2021-09-05 2021-09-05 User of Universit y of exposure 00:00:00 00:00:00 smokeless [facility] tobacco Branch Tobacco Comment 2021-09-05 2021-09-05 vapes Universit y of 00:00:00 00:00:00 [facility] Branch Education 2021-05-05 2021-05-05 13 University of 00:00:00 00:00:00 [facility] Cigarette 2020-01-28 2020-01-28 Yazidism pack-years 00:00:00 00:00:00 Hospital History SDOH 2018-11-09 2018-11-09 5 University o f Alcohol Binge 00:00:00 00:00:00 [facility] Branch Sex [birth year] Universit y of 00:00:00 00:00:00 [facility] Smoking Status Start Date Stop Date Source Smokes tobacco daily 2021-09-05 00:00:00 Univers ity of [facility] Medications Ordered Filled Start Stop Current Ordering Indication Dosage Frequency Signature Comments Components Source Medication Medication Date Date Medication? Clinician (SIG) Name Name ketorolac No 30mg 30 mg, Unive rs tromethamin 11-21 Slow IV ity of e (TORADOL) 14:15: 14:15 [place] injection 00 :00 ONCE, 1 Medical 30 mg dose, On Branch [facility] 11/21/21 at 0915, TITA metoclopram No 10mg 10 mg, Uni vers lenora HCl 11-21 Slow IV ity of (REGLAN) 13:15: 13:19 Push, [place] injection 00 :00 ONCE, 1 Medical 10 mg dose, On Branch [facility] 11/21/21 at 0815, TITA NaCl 0.9% No [...] 00 :00 dose, On Medi kofi mg [facility] 11/21/21 at 0715, ITTA ondansetron 0 Yes [id number] 4mg Take 1 Univers 4 mg -14 [...] infusion 2 ONCE, 1 g dose, On [facility] 11/19/21 at 1830, Routine metoprolol 2021- No 50mg 50 mg, Univ ers tartrate 11-19 Oral, ONCE ity of (LOPRESSOR) 23:30: 22:40 NOW, 1 [place] tablet 50 00 :00 dose, On Medica l mg [facility] 11/19/21 at 1830, Routine LORazepam 2021- No 1mg 1 mg, Univer s (ATIVAN) 11-19 Oral, ity of tablet 1 mg 22:30: 22:40 ONCE, 1 [place] 00 :[place] dose, On Medical [facility] 11/19/21 at 1730, TITA NaCl 0.9% 2021- No 2000mL at 999 Uni vers (NS) bolus 11-19 mL/hr, ity of infusion 22:15: 23:05 2,000 mL, [place] 2,000 mL 00 :00 IV Medical Infusion, Branch ONCE, 1 dose, On [facility] 11/19/21 at 1715, TITA ondansetron 2021- No 4mg 4 mg, Slow Univers (ZOFRAN 11-19 IV Push, ity of (PF)) 21:15: 21:22 ONCE, 1 [place] injection 4 00 :00 dose, On Medi kofi mg [facility] 11/19/21 at 1615, TITA LORazepam 0 2021- Yes 1mg 1 mg, Univer s (ATIVAN) 10-0831 Oral, ity of tablet 1 mg 04:30: 16:29 ONCE, 1 [place] 00 :[place] dose, On Medical [facility] Branch 10/07/21 at 2330, TITA clonazePAM 2021-0 Yes [id number] 2mg Take 1 Univers (KLONOPIN) 5-30 tablet by ity of 2 mg tablet 00:00: mouth 2 [place] 00 (two) Medical times Branch daily. clonazePAM 2-0 Yes [id number] 2mg Take 1 Univers (KLONOPIN) 5-30 tablet by ity of 2 mg tablet 00:00: mouth 2 [place] 00 (two) Medical times Branch daily. clonazePAM 2022-0 Yes [id number] 2mg Take 1 Univers (KLONOPIN) 5-30 tablet by ity of 2 mg tablet 00:00: mouth 2 [place] as 00 (two) Medical times [place] daily. ketorolac 2021- No 15mg 15 mg, Unive rs (TORADOL) 09-30 Slow IV ity of injection 03:45: 02:46 Push, [place] 15 mg 00 :00 ONCE, 1 Medical dose, On Branch [facility] 09/29/21 at 2245, Routine ondansetron 2021- No 4mg 4 mg, Slow Univers (ZOFRAN 09-30 IV Push, ity of (PF)) 02:30: 01:55 ONCE, 1 [place] injection 4 00 :00 dose, On Medi kofi mg [facility] 09/29/21 at 2130, TITA acetaminoph No 650mg 650 mg, U nivers en 09-30 Oral, ity of (TYLENOL) 02:30: 01:55 ONCE, 1 [place] tablet 650 00 :00 dose, On Medic al mg [facility] 09/29/21 at 2130, TITA NaCl 0.9% No 1000mL at 999 Uni vers (NS) bolus 09-30 mL/hr, ity of infusion 02:30: 03:12 1,000 mL, [place] as 1,000 mL 00 :00 IV Medical Infusion, Branch ONCE, 1 dose, On [place] 09/29/21 at 2130, TITA metoprolol Yes 50mg Take 50 mg U nivers tartrate 50 5-06 by mouth 2 it y of mg tablet 19:45: (two) [place] 15 times Medical daily. Branch metoprolol 0 Yes 50mg Take 50 mg U nivers tartrate 50 5-06 by mouth 2 it y of mg tablet 19:45: (two) [place] 15 times Medical daily. Branch metoprolol 0 Yes 50mg Take 50 mg U nivers tartrate 50 5-06 by mouth 2 it y of mg tablet 19:45: (two) [place] 15 times Medical daily. Branch metoprolol 0 Yes 50mg Take 50 mg U nivers tartrate 50 5-06 by mouth 2 it y of mg tablet 19:45: (two) [place] 15 times Medical daily. Branch metoprolol Yes 50mg Take 50 mg U nivers tartrate 50 09-13 by mouth 2 it y of mg tablet 19:45: (two) [place] 15 times Medical daily. Branch nitroglycer 2021- [...] Thu09/13/21 at 0600, Routine iopamidol 2021- No [id number] 81mL 81 mL, U nivers (ISOVUE 09-12- Intravenou ity o f 370-500 mL) 22:00: 17:41 s, ONCE, 1 [place] injection 00 :00 dose, On Medica l 81 mL [facility] 09/12/21 Branch at 1700, Routine metoprolol 2021- No 5mg 5 mg, Unive rs (LOPRESSOR) 09-12-05 Intravenou i ty of injection 5 18:30: 17:26 s, ONCE, 1 [place] mg 00 :00 dose, On [facility] 09/12/21 Branch at 1330, Routine metoprolol 2021- No 5mg 5 mg, Unive rs (LOPRESSOR) 09-12-05 Intravenou i ty of injection 5 17:00: 16:09 s, ONCE, 1 [place] mg 00 :00 dose, On [facility] 09/12/21 Branch at 1200, Routine acetaminoph Yes 650mg 650 mg, Un jaqueline en 05 Oral, ity of (TYLENOL) 16:06: Q6HPRN, [place] tablet 650 52 Starting Medic al mg on [place] Branch 09/12/21 at 1106, Until Discontinu ed, Routine, Pain (scale 1-3) morpHINE 2021- No 4mg 4 mg, Slow Un jaqueline injection 4 09-12-05 IV Push, ity of mg 14:04: 14:04 ONCE, 1 [place] 00 :00 dose, On Medical [facility] 09/12/21 Branch at 0915, STAT ondansetron 2021- No 4mg 4 mg, Slow Univers (ZOFRAN 09-12-05 IV Push, ity of (PF)) 14:03: 14:04 ONCE, 1 [place] injection 4 00 :00 dose, On Medi kofi mg [facility] 09/12/21 Branch at 0915, TITA aspirin 81 2021- Yes [id number] 81mg Take 1 Univers mg chewable 4-30 05-31 tablet by it y of tablet 00:00: 04:59 mouth [place] 00 :00 daily for Medical 30 days. Branch aspirin 81 2021- Yes [id number] 81mg Take 1 Univers mg chewable 4-30 05-31 tablet by it y of tablet 00:00: 04:59 mouth [place] 00 :00 daily for Medical 30 days. Branch aspirin 81 2021- Yes [id number] 81mg Take 1 Univers mg chewable 09-07-31 tablet by it y of tablet 00:00: 04:59 mouth [place] 00 :00 daily for Medical 30 days. [place] aspirin 81 2021- Yes [id number] 81mg Take 1 Univers mg chewable -07 10-31 tablet by it y of tablet 00:00: 04:59 mouth [place] 00 :00 daily for Medical 30 days. [place] metoprolol Yes 50mg Take 50 mg U nivers tartrate 50 -29 by mouth 2 it y of mg tablet 16:01: (two) [place] 23 times Medical daily. [place] aspirin Yes 81mg 81 mg, Univers chewable - Oral, ity of tablet 81 14:00: DAILY, [place] mg 00 First dose Medical on Thu [place] 09/06/21 at 0900, Until Discontinu ed, Routine lisinopriL 2021- No 5mg Take 5 mg U nivers 5 mg tablet 09-06 by mouth 2 i ty of 09:21: 00:00 (two) [place] 02 :00 times Medical daily. [place] atorvastati Yes 40mg 40 mg, Univ ers n (LIPITOR) 4-29 Oral, QHS, it y of tablet 40 02:00: First dose [place] mg 00 on [facility] Medical 09/05/21 at [place] 2099, Until Discontinu ed, Routine metoprolol Yes 50mg 50 mg, Unive rs tartrate 4-29 Oral, BID, ity o f (LOPRESSOR) 01:00: First dose [place] tablet 50 00 on [facility] Medical mg 09/05/21 at [place] 1999, Until Discontinu ed, Routine lisinopriL Yes 5mg 5 mg, Univer s (PRINIVIL,Z 4-29 Oral, BID, it y of ESTRIL) 01:00: First [place] tablet 5 mg 00 on [place] Medica l 09/05/21 at [place] 1999, Until Discontinu ed, Routine furosemide 2021- Yes [id number] 20mg Take 1 Univers 20 mg - 05-30 tablet by ity of tablet 00:00: 04:59 mouth [place] 00 :00 daily for Medical 30 days. [place] furosemide 2021- Yes [id number] 20mg Take 1 Univers 20 mg 09-06-30 tablet by ity of tablet 00:00: 04:59 mouth [place] 00 :00 daily for Medical 30 days. Branch furosemide 2021- Yes [id number] 20mg Take 1 Univers 20 mg 09-06 [...] 40 mg 00 First dose Medical on [facility] Branch 09/05/21 at 1700, Until Discontinu ed, Routine clonazePAM Yes 2mg 2 mg, Univer s (KLONOPIN) 09-05 Oral, ity of tablet 2 mg 21:47: BIDPRN, [place] 20 Starting Medical on [place] [facility] 09/05/21 at 1647, Until Discontinu ed, Routine, anxiety sulfur 2021- No [id number] 5mL 5 mL, Unive rs hexafluorid 09-05 Intravenou i ty of e microsphr 20:15: 20:15 s, ONCE, 1 [place] (LUMASON) 00 :00 dose, On Medica l injection 5 [place] Branch mL 09/05/21 at 1515, Routine
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 member approving Restricted medication : SHERLY FOWLER [...] 09-05 Oral, ity of (TYLENOL) 17:35: Q6HPRN, [place] tablet 650 22 Starting Medic al mg on [facility] Branch 09/05/21 at 1235, Until Discontinu ed, Routine, Pain (scale 1-3) nitroglycer 2021- No .4mg 0.4 mg, Un jaqueline in 09-05 Sublingual ity of (NITROSTAT) 16:30: 15:42 , ONCE, 1 [place] sublingual 00 :00 dose, On Medic al tablet 0.4 [facility] mg 09/05/21 at 1130, TITA aspirin 2021- No 324mg 324 mg, Unive rs chewable 09-05 Oral, ity of tablet 324 16:30: 15:42 ONCE, 1 [place] mg 00 :00 dose, On Medical [facility] 09/05/21 at 1130, Routine atorvastati Yes 40mg 40 mg, Univ ers n (LIPITOR) 3- Oral, QHS, it y of tablet 40 02:00: First dose [place] mg 00 on Thu Medical 08/07/21 at Branch 2100, Until Discontinu ed, Routine lisinopriL Yes 5mg Take 5 mg Un jaqueline 5 mg tablet 3-30 by mouth 2 it y of 12:53: (two) [place] 52 times Medical daily. Branch metoprolol Yes 50mg Take 50 mg U nivers tartrate 50 3-30 by mouth 2 it y of mg tablet 12:53: (two) [place] 52 times Medical daily. Branch magnesium 2021- No 400mg 400 mg, Uni vers oxide 08-07-03 Oral, BID, ity of (MAG-OX 01:00: 00:59 8 doses, [place] 400) tablet 00 :00 First dose Me dical 400 mg on Thu Branch 08/06/21 at 2000, Last dose on Thu08/10/21 at 0800, Routine atorvastati 2021- No [id number] 40mg Take 1 Univers n 40 mg 30 -30 tablet by ity of tablet 00:00: 04:59 mouth at [place] 00 :00 bedtime Medical for 30 Branch days. atorvastati 2021- No [id number] 40mg Take 1 Univers n 40 mg 3-30 -30 tablet by ity of tablet 00:00: 04:59 mouth at [place] 00 :00 bedtime Medical for 30 Branch days. butalbital- Yes 1{tbl} 1 tablet, Univers acetaminoph 08-06 Oral, ity of en-caff 21:36: Q6HPRN, [place] (ESGIC) 42 Starting Medical 50-325-40 on Thu Branch mg tablet 1 08/06/21 at tablet 1636, Until Discontinu ed, Routine, Headache sulfur 2021- No [id number] 5mL 5 mL, Unive rs hexafluorid 08-06 Intravenou i ty of e microsphr 21:00: 21:00 s, ONCE, 1 [place] (LUMASON) 00 :00 dose, On Medica l injection 5 e Branch mL 08/06/21 at 1600, Routine
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 member approving Restricted medication : MALCOLMALDENGABRIELLE magnesium 2021- No 2g 2 g, IV Univ ers sulfate in 08-06 Piggyback, it y of water 2 15:15: 17:03 Administer [place] gram/50 mL 00 :00 over 60 Medica l (4 %) Minutes, Branch infusion 2 ONCE, 1 g dose, On 08/06/21 at 1015, Routine iopamidol 2021- No [id number] 100mL 100 mL, Univers (ISOVUE 08-06 Intravenou [...] as mg 00 :00 dose, On Medical [facility] Branch 08/05/21 at 1545, TITA nicotine Yes 1{patch 1 Patch, Un jaqueline (NICODERM) 08-05 } Topical, ity o f 7 mg/24 hr 20:15: Administer [place] patch 1 00 over 24 Medical Patch Hours, Branch Q24H, First dose on [facility] 08/05/21 at 1515, Until Discontinu ed, Routine furosemide 2021- No 40mg 40 mg, IV U nivers (LASIX) 08-05 Push, ity of injection 19:30: 18:59 ONCE, 1 [place] 40 mg 00 :00 dose, On Medical [facility] Branch 08/05/21 at 1430, TITA HYDROcodone 2021- No 1{tbl} 1 tablet, Univers -acetaminop 08-05 Oral, ity of hen (NORCO 18:59: 18:58 Q6HPRN, [place] 5) 5-325 mg 00 :00 Starting Medi kofi tablet 1 on [facility] Branch tablet 08/05/21 at 1359, Until 08/07/21 at 1358, Routine, Pain (scale 4-6) acetaminoph Yes 650mg 650 mg, Un jaqueline en 08-05 Oral, ity of (TYLENOL) 18:58: Q6HPRN, [place] tablet 650 56 Starting Medic al mg on [facility] Branch 08/05/21 at 1358, Until Discontinu ed, Routine, Pain (scale 1-3) lisinopriL 2021- No 5mg Take 5 mg U nivers 5 mg tablet 08-05 by mouth 2 i ty of 17:32: 00:00 (two) [place] 25 :00 times Medical daily. Branch Last dose given in ED aspirin 2021- No 325mg 325 mg, Unive rs tablet 325 08-05 Oral, ity of mg 17:00: 18:01 ONCE, 1 [place] 00 :00 dose, On [facility] Branch 08/05/21 at 1200, STAT LORazepam 2021- No 2mg 2 mg, Univer s (ATIVAN) -06-05 Oral, ity of tablet 2 mg 16:30: 15:22 ONCE, 1 [place] 00 :00 dose, On Medical Wed Branch 06/05/21 at 1030, TITA lisinopriL Yes 5mg Take 5 mg Un jaqueline 5 mg tablet 26 by mouth 2 it y of 09:13: (two) [place] 22 times Medical daily. Branch Last dose given in ED hydroCHLORO Yes [id number] 25mg Take 1 Univers thiazide 25 1-17 tablet by ity of mg tablet 00:00: mouth [place] 00 every Medical morning. Branch hydroCHLORO Yes [id number] 25mg Take 1 Univers thiazide 25 1-17 tablet by ity of mg tablet 00:00: mouth [place] 00 every Medical morning. Branch hydroCHLORO 2021- No [id number] 25mg Take 1 Univers thiazide 25 1-17 [...] [place] mg 00 on [facility] 05/05/21 Branch at 2100, Until Discontinu ed, Routine aspirin 81 2020-05- No [id number] 81mg Take 1 Univers mg chewable 2-27 - tablet by it y of tablet 00:00: 05:59 mouth [place] 00 :00 daily with Medical breakfast Branch for 30 days. aspirin 81 2020-05- No [id number] 81mg Take 1 Univers mg chewable 2-27 - tablet by it y of tablet 00:00: 05:59 mouth [place] 00 :00 daily with Medical breakfast Branch for 30 days. aspirin 81 2020-05- No [id number] 81mg Take 1 Univers mg chewable 07-07 tablet by it y of tablet 00:00: 05:59 mouth [place] 00 :00 daily with Medical breakfast Branch for 30 days. aspirin 81 2020-05- No [id number] 81mg Take 1 Univers mg chewable 07-07 tablet by it y of tablet 00:00: 05:59 mouth [place] 00 :00 daily with Medical breakfast Branch for 30 days. enoxaparin 2020-05 Yes 30mg 30 mg, Unive rs (LOVENOX) 07-06 Subcutaneo ity of injection 23:00: [place], DAILY, [place] 30 mg 00 First dose Medical on [facility] 05/05/21 at 1700, Until Discontinu ed, Routine magnesium 2020-05 No 4g 4 g, IV Univ ers sulfate in 07-06 Piggyback, it y of water 4 16:00: 15:35 ONCE, 1 [place] gram/50 mL 00 :00 dose, On Medic al (8 %) IV [facility] Piggyback 4 05/05/21 g at 1000, Routine pantoprazol 2020-05 Yes 40mg 40 mg, Univ ers e 07-06 Oral, ity of (PROTONIX) 15:00: DAILY, [place] EC tablet 00 First dose Medi kofi 40 mg on [facility] 05/05/21 at 0900, Until Discontinu ed, Routine aspirin 2020-05 Yes 81mg 81 mg, Univers chewable 07-06 Oral, QAM ity of tablet 81 14:00: WITH [place] mg 00 BREAKFAST, Medical First dose Branch on [place] 05/05/21 at 0800, Until Discontinu ed, Routine lisinopriL 2020-05 Yes 10mg 10 mg, Unive rs (PRINIVIL,Z 07-06 Oral, BID, it y of ESTRIL) 14:00: First dose [place] tablet 10 00 (after Medical mg last Branch modificati on) on [place] 05/05/21 at 0800, Until Discontinu ed, Routine metoprolol 2020-05 Yes 50mg 50 mg, Unive rs tartrate 07-06 Oral, BID, ity o f (LOPRESSOR) 14:00: First dose [place] tablet 50 00 on [facility] Medical mg 05/05/21 Branch at 0800, Until Discontinu ed, Routine docusate 2020-05 Yes 100mg 100 mg, Unive rs (COLACE) 07-06 Oral, BID, ity o f capsule 100 14:00: First dose [place] mg 00 on [facility] Medical 05/05/21 Branch at 0800, Until Discontinu [...] as 22 Starting Medical on [facility] 05/05/21 at 0628, Until Discontinu ed, anxiety, insomnia ondansetron 2020-05 Yes 4mg 4 mg, Slow Univers (ZOFRAN 07-06 IV Push, ity of (PF)) 08:29: Q6HPRN, [place] injection 4 21 Starting Medi kofi mg on [facility] 05/05/21 at 0229, Until Discontinu ed, Routine, Nausea and Vomiting (N/V) lisinopriL 2020-05- No 10mg 10 mg, Univ ers (PRINIVIL,Z 07-06 Oral, ity of ESTRIL) 07:00: 05:55 ONCE, 1 [place] tablet 10 00 :00 dose, On Medica l mg [facility] 05/05/21 at 0100, Routine ketorolac 2020-05- No [...] mg 00 :00 dose, On Medical Sat [place] 05/04/21 at 2045, STAT atorvastati 2020-05- No [id number] 20mg Take 1 Univers n 20 mg [...] 03/31/21 at 0945, Routine moxifloxaci 2020-05- No [id number] 400mg Take 1 Univers n 400 mg 0-11 -22 tablet by ity o f tablet 00:00: 04:59 mouth [place] 00 :00 daily for Medical 10 days. Branch chlorphenir Yes [id number] 4mg Take 1 Univers amine 4 mg 9-16 tablet by ity of tablet 00:00: mouth [place] 00 every 6 Medical (six) Branch hours as needed for Allergies or Runny nose. calcium/mag Yes [id number] 1{each} Take 1 Univers nesium/zinc 9-16 Each by ity o f (CALCIUM-MA 00:00: mouth [place] GNESUIUM-ZI 00 daily. Medica l [place]) Branch 333-133-5 mg Tab benzonatate Yes [id number] 100mg Take 1 Univers 100 mg 9-16 capsule by ity of capsule 00:00: mouth 3 [place] 00 (three) Medical times Branch daily as needed for Cough. ondansetron Yes [id number] 4mg Take 1 Univers 4 mg 9-16 tablet by ity of disintegrat 00:00: mouth [place] ing tablet 00 every 8 Medica l (eight) Branch hours as needed for Nausea and Vomiting (N/V). chlorphenir Yes [id number] 4mg Take 1 Univers amine 4 mg 9-16 tablet by ity of tablet 00:00: mouth [place] 00 every 6 Medical (six) Branch hours as needed for Allergies or Runny nose. calcium/mag Yes [id number] 1{each} Take 1 Univers nesium/zinc 9-16 Each by ity o f (CALCIUM-MA 00:00: mouth [place] GNESUIUM-ZI 00 daily. Medica l [place]) Branch 333-133-5 mg Tab benzonatate 1-0 Yes [id number] 100mg Take 1 Univers 100 mg 9-16 capsule by ity of capsule 00:00: mouth 3 [place] 00 (three) Medical times Branch daily as needed for Cough. ondansetron 2020-0 Yes [id number] 4mg Take 1 Univers 4 mg 9-16 tablet by ity of disintegrat 00:00: mouth [place] ing tablet 00 every 8 Medica l (eight) Branch hours as needed for Nausea and Vomiting (N/V). chlorphenir 1-0 Yes [id number] 4mg Take 1 Univers amine 4 mg 9-16 tablet by ity of tablet 00:00: mouth [place] 00 every 6 Medical (six) Branch hours as needed for Allergies or Runny nose. calcium/mag 1-0 Yes [id number] 1{each} Take 1 Univers nesium/zinc 9-16 Each by ity o f (CALCIUM-MA 00:00: mouth [place] GNESUIUM-ZI 00 daily. [facility]) Branch 333-133-5 mg Tab benzonatate 2020-0 Yes [id number] 100mg Take 1 Univers 100 mg 9-16 capsule by ity of capsule 00:00: mouth 3 [place] 00 (three) Medical times Branch daily as needed for Cough. ondansetron 2020-0 Yes [id number] 4mg Take 1 Univers 4 mg 9-16 tablet by ity of disintegrat 00:00: mouth [place] ing tablet 00 every 8 Medica l (eight) Branch hours as needed for Nausea and Vomiting (N/V). chlorphenir 1-0 Yes [id number] 4mg Take 1 Univers amine 4 mg 9-16 tablet by ity of tablet 00:00: mouth [place] 00 every 6 Medical (six) Branch hours as needed for Allergies or Runny nose. calcium/mag 2021-0 Yes [id number] 1{each} Take 1 Univers nesium/zinc 9-16 Each by ity o f (CALCIUM-MA 00:00: mouth [place] GNESUIUM-ZI 00 daily. Medica l [place]) Branch 333-133-5 mg Tab benzonatate 2021-0 Yes [id number] 100mg Take 1 Univers 100 mg 9-16 capsule by ity of capsule 00:00: mouth 3 [place] 00 (three) Medical times Branch daily as needed for Cough. ondansetron 0 Yes [id number] 4mg Take 1 Univers 4 mg 9-16 tablet by ity of disintegrat 00:00: mouth [place] ing tablet 00 every 8 Medica l (eight) Branch hours as needed for Nausea and Vomiting (N/V). azithromyci 2020-0 Yes [id number] 250mg Take 1 Univers n 9-16 tablet by ity of (ZITHROMAX 00:00: mouth [place] Z-REFUGIO) 250 00 SEE-INSTRU Med ical mg tablet CTIONS. Branch Take 500 mg day 1, then 250 mg days 2 to 5. chlorphenir 2020-0 Yes [id number] 4mg Take 1 Univers amine 4 mg 9-16 tablet by ity of tablet 00:00: mouth [place] 00 every 6 Medical (six) Branch hours as needed for Allergies or Runny nose. calcium/mag 2020-0 Yes [id number] 1{each} Take 1 Univers nesium/zinc 9-16 Each by ity o f (CALCIUM-MA 00:00: mouth [place] GNESUIUM-ZI 00 daily. Medica l [place]) Branch 333-133-5 mg Tab benzonatate 0 Yes [id number] 100mg Take 1 Univers 100 mg 9-16 capsule by ity of capsule 00:00: mouth 3 [place] 00 (three) Medical times Branch daily as needed for Cough. ondansetron 0 Yes [id number] 4mg Take 1 [facility] 4 mg 9-16 tablet by ity of disintegrat 00:00: mouth [place] ing tablet 00 every 8 Medica l (eight) Branch hours as needed for Nausea and Vomiting (N/V). azithromyci 2020-0 Yes [id number] 250mg Take 1 [facility] n 9-16 tablet by ity of (ZITHROMAX 00:00: mouth [place] Z-REFUGIO) 250 00 SEE-INSTRU Med ical mg tablet CTIONS. Branch Take 500 mg day 1, then 250 mg days 2 to 5. chlorphenir 2020-0 Yes [id number] 4mg Take 1 [facility] amine 4 mg 9-16 tablet by ity of tablet 00:00: mouth [place] 00 every 6 Medical (six) Branch hours as needed for Allergies or Runny nose. calcium/mag 2020-0 Yes [id number] 1{each} Take 1 [facility] nesium/zinc 9-16 Each by ity o f (CALCIUM-MA 00:00: mouth [place] GNESUIUM-ZI 00 daily. Medica l NC) Branch 333-133-5 mg Tab benzonatate 2020-0 Yes [id number] 100mg Take 1 [facility] 100 mg 9-16 capsule by ity of capsule 00:00: mouth 3 [place] 00 (three) Medical times Branch daily as needed for Cough. ondansetron 2020-0 Yes [id number] 4mg Take 1 [facility] 4 mg 9-16 tablet by ity of disintegrat 00:00: mouth [place] ing tablet 00 every 8 Medica l (eight) Branch hours as needed for Nausea and Vomiting (N/V). chlorphenir 2020-0 Yes [id number] 4mg Take 1 [facility] amine 4 mg 9-16 tablet by ity of tablet 00:00: mouth [place] 00 every 6 Medical (six) Branch hours as needed for Allergies or Runny nose. calcium/mag 2020-0 Yes [id number] 1{each} Take 1 [facility] nesium/zinc 9-16 Each by ity o f (CALCIUM-MA 00:00: mouth [place] GNESUIUM-ZI 00 daily. Medica l NC) Branch 333-133-5 mg Tab benzonatate 2020-0 Yes [id number] 100mg Take 1 [facility] 100 mg 9-16 capsule by ity of capsule 00:00: mouth 3 [place] 00 (three) Medical times Branch daily as needed for Cough. ondansetron 2020-0 Yes [id number] 4mg Take 1 [facility] 4 mg 9-16 tablet by ity of disintegrat 00:00: mouth [place] ing tablet 00 every 8 Medica l (eight) Branch hours as needed for Nausea and Vomiting (N/V). chlorphenir 1-0 Yes [id number] 4mg Take 1 [facility] amine 4 mg 9-16 tablet by ity of tablet 00:00: mouth [place] 00 every 6 Medical (six) Branch hours as needed for Allergies or Runny nose. calcium/mag 2021-0 Yes [id number] 1{each} Take 1 [facility] nesium/zinc 9-16 Each by ity o f (CALCIUM-MA 00:00: mouth [place] GNESUIUM-ZI 00 daily. Medica l NC) Branch 333-133-5 mg Tab benzonatate 2021-0 Yes [id number] 100mg Take 1 [facility] 100 mg 9-16 capsule by ity of capsule 00:00: mouth 3 [place] 00 (three) Medical times Branch daily as needed for Cough. ondansetron Yes [id number] 4mg Take 1 [facility] 4 mg 9-16 tablet by ity of disintegrat 00:00: mouth [place] ing tablet 00 every 8 Medica l (eight) Branch hours as needed for Nausea and Vomiting (N/V). chlorphenir 2021- No [id number] 4mg Take 1 [facility] amine 4 mg 9-16 -28 tablet by ity of tablet 00:00: 00:00 mouth [place] 00 :00 every 6 Medical (six) Branch hours as needed for Allergies or Runny nose. calcium/mag 2021- No [id number] 1{each} Take 1 [facility] nesium/zinc 9-16 -28 Each by ity of (CALCIUM-MA 00:00: 00:00 mouth [place] GNESUIUM-ZI 00 :00 daily. Medica l NC) Branch 333-133-5 mg Tab benzonatate 2021- No [id number] 100mg Take 1 [facility] 100 mg 9-16 -28 capsule by ity of capsule 00:00: 00:00 mouth 3 [place] 00 :00 (three) Medical times Branch daily as needed for Cough. ondansetron 2021- No [id number] 4mg Take 1 [facility] 4 mg 9-16 -28 tablet by ity of disintegrat 00:00: 00:00 mouth [place] tablet 00 :00 every 8 Medica l (eight) Branch hours as needed for Nausea and Vomiting (N/V). vitamin 2020- No [id number] 1{tbl} Take 1 [facility] D3-folic 9-16 10-17 tablet by ity o f acid 125 00:00: 04:59 mouth [place] mcg (5,000 00 :00 daily for Medi kofi unit)-1 mg 30 days. Branc h Tab vitamin 2020- No [id number] 1{tbl} Take 1 [facility] D3-folic 9-16 10-17 tablet by ity o f acid 125 00:00: 04:59 mouth [place] mcg (5,000 00 :00 daily for Medi kofi unit)-1 mg 30 days. Branc h Tab vitamin 2020- No [id number] 1{tbl} Take 1 [facility] D3-folic 9-16 10-17 tablet by ity o f acid 125 00:00: 04:59 mouth [place] mcg (5,000 00 :00 daily for Medi kofi unit)-1 mg 30 days. Bran h Tab azithromyci 2020- No [id number] 250mg Take 1 Univers n 9-16 10-11 [...] ity of XL (TOPROL 14:52: 00:00 (two) [place] XL) 25 mg 24 :00 times Medical 24 hr daily. Branch tablet diazePAM 2020- No 10mg Take 10 mg Un jaqueline (VALIUM) 10 20 06-20 by mouth 2 i ty of mg tablet 14:52: 00:00 ([facility]) [place] 24 :00 times Medical daily. [place] cyanocobala Yes 1000ug 1,000 mcg, Univers min [...] Pura Medi kofi (4 %) 10/25/20 at [place] infusion 2 1945, g Routine potassium 2020- [...] mg 43 Starting Medi kofi tablet 1 [facility] tablet 10/25/20 at 1149, Until Discontinu ed, Routine, Pain (scale 7-10) hydralAZINE 0 Yes 10mg 10 mg, Univ ers (APRESOLINE 10-25 Slow IV ity o f ) injection 16:48: Push, [place] 10 mg 34 Q6HPRN, Medical Starting Branch [facility] 10/25/20 at 1148, Until Discontinu ed, Routine, DBP=>100; SBP=>160, For SBP > 160
Ind ication: Hypertensi ve Emergency labetaloL 0 Yes 20mg 20 mg, Univer s (NORMODYNE) 10-25 Slow IV ity o f injection 14:58: Push, [place] 20 mg 25 Q6HPRN, Medical Starting Branch [facility] 10/25/20 at 0958, Until Discontinu ed, TITA, For SBP > 170 or DBP > 105 diazePAM 2020-0 2020- No 10mg 10 mg, Univer s (VALIUM) 10-2517 Intravenou ity of injection 14:30: 13:45 s, ONCE, 1 [place] 10 mg 00 :00 dose, [facility] Medical 10/25/20 at Branch 0930, STAT escitalopra 0 Yes 10mg 10 mg, Univ ers m oxalate 10-25 Oral, ity of (LEXAPRO) 14:00: DAILY, [place] tablet 10 00 First dose Medi kofi mg on [facility] Branch 10/25/20 at 0900, Until Discontinu ed, Routine pantoprazol 0 Yes 40mg 40 mg, Univ ers e 17 Oral, ity of (PROTONIX) 14:00: DAILY, [place] EC tablet 00 First dose Medi kofi 40 mg on [facility] Branch 10/25/20 at 0900, Until Discontinu ed, Routine acetaminoph 0 Yes 650mg 650 mg, Un jaqueline en 10-25 Oral, ity of (TYLENOL) 13:42: Q6HPRN, [place] tablet 650 14 Starting Medic al mg [facility] Branch 10/25/20 at 0842, Until Discontinu [...] [place] mg 00 :00 dose, [facility] Medical 10/25/20 at Branch 0030, Routine HYDROcodone 2020- No 1{tbl} 1 tablet, Univers -acetaminop 10-24 Oral, ity of hen (NORCO 22:45: 22:14 ONCE, 1 [place] 5) 5-325 mg 00 :00 dose, Thu Med ical tablet 1 10/24/20 at [facility] h tablet 1745, Routine enoxaparin Yes 40mg 40 mg, Unive rs (LOVENOX) 10-24 Subcutaneo ity of injection 22:00: us, DAILY, [place] 40 mg 00 First dose Medical on Thu Branch 10/24/20 at 1700, Until Discontinu ed, Routine sulfur 2020- No [id number] 5mL 5 mL, Unive rs hexafluorid 10-24 Intravenou i ty of e microsphr 21:15: 21:15 s, ONCE, 1 [place] (LUMASON) 00 :00 dose, Thu Medic al injection 5 10/24/20 at Br anch mL 1615, Routine
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 member approving Restricted medication : JASPREET GOFF [...] [place] 10 mg 00 :00 dose, [facility] 10/24/20 at Branch 1315, STAT diazePAM 2020- No 10mg 10 mg, Univer s (VALIUM) 10-24 Intravenou ity of injection 17:45: 17:10 s, ONCE, 1 [place] 10 mg 00 :00 dose, [facility] Medical 10/24/20 at Branch 1245, TITA metoprolol 2020- No 50mg 50 mg, Univ ers tartrate 10-24 Oral, BID, ity of (LOPRESSOR) 17:15: 16:49 First dose [place] tablet 50 00 :21 on [facility] Medical mg 10/24/20 at Branch 1215, Until Discontinu ed, Routine ondansetron Yes 4mg 4 mg, Unive rs (ZOFRAN-ODT 10-24 Oral, ity of ) 17:02: Q8HPRN, [place] disintegrat 20 Starting Medi kofi ing tablet [facility] 4 mg 10/24/20 at 1202, Until Discontinu ed, Routine, Nausea and Vomiting (N/V) LORazepam 2020- No 2mg 2 mg, Slow U nivers (ATIVAN) 10-24 IV Push, ity of injection 2 17:00: 16:01 ONCE, 1 [place] mg 00 :00 dose, [facility] 10/24/20 at Branch 1200, STAT labetaloL 2020- No 20mg 20 mg, Unive rs (NORMODYNE) 10-24 Slow IV ity of injection 17:00: 16:01 Push, [place] 20 mg 00 :00 ONCE, 1 Medical dose, [facility] 10/24/20 at 1200, TITA lactated 2020- No 30mL/kg at 999 Uni vers ringers IV 10-24 mL/hr, ity of infusion 16:45: 18:17 2,925 mL [place] 2,925 mL 00 :00 (30 mL/kg Medica l ?97.5 kg), Branch IV Infusion, ONCE, 1 dose, [facility] 10/24/20 at 1145, STAT glucagon 2020-0 Yes 1mg 1 mg, Univers (GLUCAGEN 10-24 Intramuscu ity of DIAGNOSTIC 16:43: lar, PRN, [place] KIT) 42 Starting Medical injection 1 [facility] 10/24/20 at 1143, Until Discontinu ed, TITA, Blood Glucose < or = 70 mg/dL and patient is unable to swallow or has mental changes. dextrose 50 2020-0 Yes 25mL 25 mL, Univ ers % in water 10-24 Slow IV ity of (D50W) 16:43: Push, PRN, [place] injection 42 Starting Medica l 25 mL [facility] 10/24/20 at 1143, Until Discontinu ed, TITA, Blood Glucose < or = 70 mg/dL and patient is unable to swallow or has mental status changes. LORazepam 2020- No 2mg 2 mg, Slow U nivers (ATIVAN) 10-24 IV Push, ity of injection 2 16:00: 15:04 ONCE, 1 [place] mg 00 :00 dose, [facility] 10/24/20 at Branch 1100, Routine diazePAM 2020-0 2020- No 10mg 10 mg, Univer s (VALIUM) 10-24 Intravenou ity of injection 16:00: 15:21 s, ONCE, 1 [place] 10 mg 00 :00 dose, [facility] 10/24/20 at Branch 1100, Routine LORazepam 2020-0 202- No 2mg 2 mg, Slow U nivers (ATIVAN) 10-24 IV Push, ity of injection 2 15:45: 14:34 ONCE, 1 [place] mg 00 :00 dose, [facility] 10/24/20 at Branch 1045, Routine LORazepam 0 2020- No 1mg 1 mg, Slow U nivers (ATIVAN) 10-24 IV Push, ity of injection 1 15:15: 14:11 ONCE, 1 [place] mg 00 :00 dose, [facility] 10/24/20 at Branch 1015, STAT ondansetron 2020-0 [...] mg 00 :00 ONCE, 1 Medical dose, [facility] 10/24/20 at 0845, TITA oxazepam No 15mg 15 mg, Univer s (SERAX) 10-24 Oral, ity of capsule 15 13:40: 20:57 Q4HPRN, [place] mg 38 :53 Starting Medical [facility] 10/24/20 at 0840, Until Thu10/26/20 at 1557, Routine, Only while awake for DBP equal to or greater than 100, HR equal to or greater than 100. iopamidol 2020- No [id number] 100mL 100 mL, Univers (ISOVUE 10-24 Intravenou ity o f 370-500 mL) 13:00: 11:40 s, ONCE, 1 [place] injection 00 :00 dose, Thu Medic al 100 mL 10/24/20 at Branch 0800, Routine LORazepam No 1mg 1 mg, Slow U nivers (ATIVAN) 10-24 IV Push, ity of injection 1 13:00: 11:54 ONCE, 1 [place] mg 00 :00 dose, [facility] Medical 10/24/20 at Branch 0800, STAT NaCl 0.9% No 1000mL at 999 Uni vers (NS) bolus 10-24 mL/hr, ity of infusion 11:30: 11:27 1,000 mL, [place] 1,000 mL 00 :00 IV Medical Infusion, [place] ONCE, 1 dose, [facility] 10/24/20 at 0630, STAT metoprolol 2020- No 5mg 5 mg, Slow Univers (LOPRESSOR) 07-29 03-20 IV Push, ity of injection 5 00:30: 23:26 ONCE, 1 [place] mg 00 :00 dose, [facility] 07/28/20 at Branch 1930, TITA NaCl 0.9% 2020- No 1000mL at 999 Uni vers (NS) bolus 07-28 03-21 mL/hr, ity of infusion 22:15: 00:55 1,000 mL, [place] 1,000 mL 00 :00 IV Medical Infusion, [place] ONCE, 1 dose, 07/28/20 at 1715, STAT [...] dose, 06/30/20 at 0600, TITA metoprolol Yes [id number] 50mg Take 2 U nivers tartrate 25 2-20 tablets by it y of mg tablet 00:00: mouth 2 [place] (two) Medical times [place] daily. metoprolol Yes [id number] 50mg Take 2 U nivers tartrate 25 2-20 tablets by it y of mg tablet 00:00: mouth 2 [place] 00 (two) Medical times [place] daily. metoprolol Yes [id number] 50mg Take 2 U nivers tartrate 25 2-20 tablets by it y of mg tablet 00:00: mouth 2 [place] 00 (two) Medical times Branch daily. metoprolol 2020-0 Yes [id number] 50mg Take 2 U nivers tartrate 25 2-20 tablets by it y of mg tablet 00:00: mouth (two) Medical times Branch daily. metoprolol 2020-0 Yes [id number] 50mg Take 2 U nivers tartrate 25 2-20 tablets by it y of mg tablet 00:00: mouth (two) Medical times Branch daily. metoprolol 2020-0 Yes [id number] 50mg Take 2 U nivers tartrate 25 2-20 tablets by it y of mg tablet 00:00: mouth (two) Medical times Branch daily. metoprolol 2020-0 Yes [id number] 50mg Take 2 U nivers tartrate 25 2-20 tablets by it y of mg tablet 00:00: mouth (two) Medical times Branch daily. metoprolol 2020-0 Yes [id number] 50mg Take 2 U nivers tartrate 25 2-20 tablets by it y of mg tablet 00:00: mouth (two) Medical times Branch daily. metoprolol 2020-0 Yes [id number] 50mg Take 2 U nivers tartrate 25 2-20 tablets by it y of mg tablet 00:00: mouth (two) Medical times Branch daily. metoprolol 2020-0 Yes [id number] 50mg Take 2 U nivers tartrate 25 2-20 tablets by it y of mg tablet 00:00: mouth (two) Medical times Branch daily. metoprolol 2020-0 Yes [id number] 50mg Take 2 U nivers tartrate 25 2-20 tablets by it y of mg tablet 00:00: mouth (two) Medical times Branch daily. metoprolol 2020-0 Yes [id number] 50mg Take 2 U nivers tartrate 25 2-20 tablets by it y of mg tablet 00:00: mouth (two) Medical times Branch daily. metoprolol 2020-0 Yes [id number] 50mg Take 2 U nivers tartrate 25 2-20 tablets by it y of mg tablet 00:00: mouth (two) Medical times Branch daily. metoprolol 2021- No [id number] 50mg Take 2 Univers tartrate 25 -20 03-30 tablets by i ty of mg tablet 00:00: 00:00 mouth 2 [place] 00 :[place] (two) Medical times Branch daily. ibuprofen 2020- No 600mg 600 mg, Uni vers (IBU) 06-23- Oral, ity of tablet 600 21:15: 20:35 ONCE, 1 [place] mg 00 :00 dose, Sat Medical 06/23/20 at Branch 1515, TITA ibuprofen Yes [id number] 600mg Take 1 [facility] 600 mg 06-23 [id number] tablet by ity of tablet 00:00: mouth [place] 00 every 6 Medical (six) Branch hours as needed for Pain (scale 4-6). ibuprofen Yes [id number] 600mg Take 1 [facility] 600 mg - [id number] tablet by ity of tablet 00:00: mouth [place] 00 every 6 Medical (six) Branch hours as needed for Pain (scale 4-6). ibuprofen Yes [id number] 600mg Take 1 [facility] 600 mg 06-23 [id number] tablet by ity of tablet 00:00: mouth [place] 00 every 6 Medical (six) Branch hours as needed for Pain (scale 4-6). ibuprofen 2020- No [id number] 600mg Take 1 [facility] 600 mg 06-23-20 [id number] tablet by ity o f tablet 00:00: 00:00 mouth [place] 00 :00 every 6 Medical (six) Branch hours as needed for Pain (scale 4-6). venlafaxine 2019- No [id number] 225mg QD Take 3 M ethodi XR 02-[address] (EFFEXOR-XR 00:00: 04:59 (225 mg Ho spita ) 75 MG 24 00 :00 total) by l hr capsule mouth every morning for 7 days .major depressive disorder. nicotine 2019- No [id number] 2mg Q2H Chew 1 Metho di polacrilex 01-31 each ([address] (NICORETTE) 00:00: 04:59 total) Hos sugey 2 mg gum 00 :00 every 2 l (two) hours as needed for smoking cessation for up to 30 days .stop smoking. metoprolol 2020-0 2020- No [id number] 50mg Q.5D Take 1 Met hodi tartrate 01-31- tablet (50 st (LOPRESSOR) 00:00: 04:59 mg total) Hospita 50 mg 00 :00 by mouth l tablet BID at 0700, 1900 for 30 days .high blood pressure. busPIRone 2019-0 2020- No [id number] 7.5mg Q.5D Take 1 Met hodi (BUSPAR) 01-[address] 7.5 MG 00:00: 04:59 (7.5 mg Hospita tablet 00 :00 total) by l mouth 2 (two) times a day for 7 days .repeated episodes of anxiety. sodium 2020-0 Yes 5mL 5 mL, Univers chloride 7 Intravenou ity o f (NS) 04:17: s, PRN, [place] injection 5 55 Starting Medi kofi mL [...] 1,000 mL 00 :00 IV Medical Piggyback, [place] ONCE, 1 dose, [place] 09/29/19 at 1100, STAT loperamide 2019-0 Yes 2mg 2 mg, Univer s (IMODIUM 09-28 Oral, ity of A-D) 14:53: Q4HPRN, [place] capsule 2 46 Starting Medica l mg [facility] Branch 09/29/19 at 0953, Until Discontinu ed, Routine, Diarrhea ondansetron 2020-0 Yes [id number] 4mg Take 1 U nivers 4 mg 5-21 tablet by ity of disintegrat 00:00: mouth [place] ing tablet 00 every 8 Medica l (eight) Branch hours as needed for Nausea and Vomiting (N/V). loperamide 2020-0 Yes [id number] 2mg Take 1 Un jaqueline 2 mg 5-21 capsule by ity of capsule 00:00: mouth [place] 00 every 4 Medical (four) Branch hours as needed for Diarrhea. Not to exceed 16mg daily. ondansetron 2020-0 Yes [id number] 4mg Take 1 U nivers 4 mg 5-21 tablet by ity of disintegrat 00:00: mouth [place] ing tablet 00 every 8 Medica l (eight) Branch hours as needed for Nausea and Vomiting (N/V). loperamide 2020-0 Yes [id number] 2mg Take 1 Un jaqueline 2 mg 5-21 capsule by ity of capsule 00:00: mouth [place] 00 every 4 Medical (four) Branch hours as needed for Diarrhea. Not to exceed 16mg daily. ondansetron 2020-0 Yes [id number] 4mg Take 1 U nivers 4 mg 5-21 tablet by ity of disintegrat 00:00: mouth [place] ing tablet 00 every 8 Medica l (eight) Branch hours as needed for Nausea and Vomiting (N/V). loperamide 2020-0 Yes [id number] 2mg Take 1 Un jaqueline 2 mg 5-21 capsule by ity of capsule 00:00: mouth [place] 00 every 4 Medical (four) Branch hours as needed for Diarrhea. Not to exceed 16mg daily. ondansetron 2020-0 Yes [id number] 4mg Take 1 U nivers 4 mg 5-21 tablet by ity of disintegrat 00:00: mouth [place] ing tablet 00 every 8 Medica l (eight) Branch hours as needed for Nausea and Vomiting (N/V). loperamide 2020-0 Yes [id number] 2mg Take 1 Un jaqueline 2 mg 5-21 capsule by ity of capsule 00:00: mouth [place] 00 every 4 Medical (four) Branch hours as needed for Diarrhea. Not to exceed 16mg daily. ondansetron 2020-0 Yes [id number] 4mg Take 1 U nivers 4 mg 5-21 tablet by ity of disintegrat 00:00: mouth [place] ing tablet 00 every 8 Medica l (eight) Branch hours as needed for Nausea and Vomiting (N/V). loperamide 2019-0 Yes [id number] 2mg Take 1 Un jaqueline 2 mg 5-21 capsule by ity of capsule 00:00: mouth [place] 00 every 4 Medical (four) Branch hours as needed for Diarrhea. Not to exceed 16mg daily. ondansetron 2020-0 Yes [id number] 4mg Take 1 U nivers 4 mg 5-21 tablet by ity of disintegrat 00:00: mouth [place] ing tablet 00 every 8 Medica l (eight) Branch hours as needed for Nausea and Vomiting (N/V). ondansetron 2019-0 Yes [id number] 4mg Take 1 U nivers 4 mg 5-21 tablet by ity of disintegrat 00:00: mouth [place] ing tablet 00 every 8 Medica l (eight) Branch hours as needed for Nausea and Vomiting (N/V). ondansetron 2019-0 Yes [id number] 4mg Take 1 U nivers 4 mg 5-21 tablet by ity of disintegrat 00:00: mouth [place] ing tablet 00 every 8 Medica l (eight) Branch hours as needed for Nausea and Vomiting (N/V). ondansetron 2019-2020- No [id number] 4mg Take 1 Univers 4 mg 5-21 09-16 tablet by ity of disintegrat 00:00: 00:00 mouth [place] ing tablet 00 :00 every 8 Medica l (eight) Branch hours as needed for Nausea and Vomiting (N/V). ondansetron 2019-2020- No [id number] 4mg Take 1 Univers 4 mg 5-21 09-16 tablet by ity of disintegrat 00:00: 00:00 mouth [place] ing tablet 00 :00 every 8 Medica l (eight) Branch hours as needed for Nausea and Vomiting (N/V). loperamide 2019-2020- No [id number] 2mg Take 1 U nivers 2 mg 5-21 06-20 capsule by ity of capsule 00:00: 00:00 mouth [place] 00 :00 every 4 Medical (four) Branch hours as needed for Diarrhea. Not to exceed 16mg daily. dicyclomine 2019-0 2019- No [id number] 10mg Take 1 Univers (BENTYL) 10 5-21 [...] [place] mg 00 :00 dose, [facility] Medical 06/16/19 at Branch 0945, STAT diazePAM 2020-0 2020- No 2.5mg 2.5 mg, Univ ers (VALIUM) 06-16 Oral, ity of tablet 2.5 14:15: 14:08 ONCE, 1 [place] mg 00 :00 dose, [facility] Medical 06/16/19 at [place] 0815, TITA LORazepam 2020-0 2020- No 1mg 1 mg, Slow U nivers (ATIVAN) 06-15 IV Push, ity of injection 1 20:00: 18:59 ONCE, 1 [place] mg 00 :00 dose, [facility] Medical 06/15/19 at [place] 1400, STAT metoprolol 2020-0 Yes 50mg Take 50 mg U nivers succinate 1-19 by mouth 2 ity of XL (TOPROL 16:21: ([facility]) [place] XL) 25 mg 12 times Medical 24 [...] times Medical daily. Branch amoxicillin 2020- No [id number] 500mg Take 1 Univers 500 mg 05-29 capsule by ity of capsule 00:00: 05:59 mouth 2 [place] 00 :00 (two) Medical times [place] daily for 10 days. amoxicillin 2019- No [id number] 500mg Take 1 Univers 500 mg 05-29 capsule by ity of capsule 00:00: 05:59 mouth 2 [place] 00 :00 (two) Medical times [place] daily for 10 days. metoprolol 2018-05 Yes [...] times Medical daily. Branch pantoprazol 2018-05 Yes [id number] 40mg Take 1 Univers e 0-12 tablet by ity of (PROTONIX) 00:00: mouth [place] 40 mg EC 00 daily. Medical tablet Branch pantoprazol 2018-05 Yes [id number] 40mg Take 1 Univers e 0-12 tablet by ity of (PROTONIX) 00:00: mouth [place] 40 mg EC 00 daily. Medical tablet Branch pantoprazol 2018-05 Yes [id number] 40mg Take 1 Univers e 0-12 tablet by ity of (PROTONIX) 00:00: mouth [place] 40 mg EC 00 daily. Medical tablet Branch pantoprazol 2018-05 Yes [id number] 40mg Take 1 Univers e 0-12 tablet by ity of (PROTONIX) 00:00: mouth [place] 40 mg EC 00 daily. Medical tablet Branch pantoprazol 2018-05 Yes [id number] 40mg Take 1 Univers e 0-12 tablet by ity of (PROTONIX) 00:00: mouth [place] 40 mg EC 00 daily. Medical tablet Branch pantoprazol 2018-05 Yes [id number] 40mg Take 1 Univers e 0-12 tablet by ity of (PROTONIX) 00:00: mouth [place] 40 mg EC 00 daily. Medical tablet Branch pantoprazol 2018-05 Yes [id number] 40mg Take 1 Univers e 0-12 tablet by ity of (PROTONIX) 00:00: mouth [place] 40 mg EC 00 daily. Medical tablet Branch pantoprazol 2018-05 Yes [id number] 40mg Take 1 Univers e 0-12 tablet by ity of (PROTONIX) 00:00: mouth [place] 40 mg EC 00 daily. Medical tablet Branch pantoprazol 2018-05 Yes [id number] 40mg Take 1 Univers e 0-12 tablet by ity of (PROTONIX) 00:00: mouth [place] 40 mg EC 00 daily. Medical tablet Branch pantoprazol 2018-05 Yes [id number] 40mg Take 1 Univers e 0-12 tablet by ity of (PROTONIX) 00:00: mouth [place] 40 mg EC 00 daily. Medical tablet Branch pantoprazol 2018-05 Yes [id number] 40mg Take 1 Univers e 0-12 tablet by ity of (PROTONIX) 00:00: mouth [place] 40 mg EC 00 daily. Medical tablet Branch pantoprazol 2018-05 Yes [id number] 40mg Take 1 Univers e 0-12 tablet by ity of (PROTONIX) 00:00: mouth [place] 40 mg EC 00 daily. Medical tablet Branch pantoprazol 2018-05 Yes [id number] 40mg Take 1 Univers e 0-12 tablet by ity of (PROTONIX) 00:00: mouth [place] 40 mg EC 00 daily. Medical tablet Branch pantoprazol 2018-05 Yes [id number] 40mg Take 1 Univers e 0-12 tablet by ity of (PROTONIX) 00:00: mouth [place] 40 mg EC 00 daily. Medical tablet Branch pantoprazol 2018-05 Yes [id number] 40mg Take 1 Univers e 0-12 tablet by ity of (PROTONIX) 00:00: mouth [place] 40 mg EC 00 daily. Medical tablet Branch pantoprazol 2018-05 Yes [id number] 40mg Take 1 Univers e 0-12 tablet by ity of (PROTONIX) 00:00: mouth [place] 40 mg EC 00 daily. Medical tablet Branch pantoprazol 2018-05 Yes [id number] 40mg Take 1 Univers e 0-12 tablet by ity of (PROTONIX) 00:00: mouth [place] 40 mg EC 00 daily. Medical tablet Branch pantoprazol 2018-05 Yes [id number] 40mg Take 1 Univers e 0-12 tablet by ity of (PROTONIX) 00:00: mouth [place] 40 mg EC 00 daily. Medical tablet Branch pantoprazol 2018-05 Yes [id number] 40mg Take 1 Univers e 0-12 tablet by ity of (PROTONIX) 00:00: mouth [place] 40 mg EC 00 daily. Medical tablet Branch pantoprazol 2018-05 Yes [id number] 40mg Take 1 Univers e 0-12 tablet by ity of (PROTONIX) 00:00: mouth [place] 40 mg EC 00 daily. Medical tablet Branch pantoprazol 2018-05 Yes [id number] 40mg Take 1 Univers e 0-12 tablet by ity of (PROTONIX) 00:00: mouth [place] 40 mg EC 00 daily. Medical tablet Branch pantoprazol 2018-05 Yes [id number] 40mg Take 1 Univers e 0-12 tablet by ity of (PROTONIX) 00:00: mouth [place] 40 mg EC 00 daily. Medical tablet Branch pantoprazol 2018-05- No [id number] 40mg Take 1 Univers e 0-12 03-28 tablet by ity of (PROTONIX) 00:00: 00:00 mouth [place] 40 mg EC 00 :00 daily. Medical tablet Branch ketorolac 2019- No 15mg 15 mg, Unive rs (TORADOL) 01-25 Slow IV ity of injection 01:00: 23:57 Push, [place] 15 mg 00 :00 ONCE, 1 Medical dose, Mon Branch 01/24/19 at 2000, Routine
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 member approving Restricted medication : JERRY MARTIN NaCl 0.9% 2019- No 1000mL at 999 Uni vers (NS) bolus 01-24 mL/hr, ity of infusion 21:15: 23:58 1,000 mL, [place] 1,000 mL 00 :00 IV Medical Infusion, Branch ONCE, 1 dose, 01/24/19 at 1615, TITA methocarbam 2019-0 Yes [id number] 500mg Take 1 Univers ol 500 mg 9-16 tablet by ity o f tablet 00:00: mouth (four) Medical times Branch daily. methocarbam 2019-0 Yes [id number] 500mg Take 1 [facility] ol 500 mg 9-16 tablet by ity o f tablet 00:00: mouth (four) Medical times Branch daily. methocarbam 2019-0 Yes [id number] 500mg Take 1 [facility] ol 500 mg 9-16 tablet by ity o f tablet 00:00: mouth (four) Medical times Branch daily. methocarbam 2018-0 Yes [id number] 500mg Take 1 [facility] ol 500 mg 9-16 tablet by ity o f tablet 00:00: mouth (four) Medical times Branch daily. methocarbam 2018-0 Yes [id number] 500mg Take 1 [facility] ol 500 mg 9-16 tablet by ity o f tablet 00:00: mouth (four) Medical times Branch daily. methocarbam 2018-0 Yes [id number] 500mg Take 1 [facility] ol 500 mg 9-16 tablet by ity o f tablet 00:00: mouth (four) Medical times Branch daily. methocarbam 2018-0 Yes [id number] 500mg Take 1 [facility] ol 500 mg 9-16 tablet by ity o f tablet 00:00: mouth (four) Medical times Branch daily. methocarbam 2018-0 Yes [id number] 500mg Take 1 [facility] ol 500 mg 9-16 tablet by ity o f tablet 00:00: mouth (four) Medical times Branch daily. methocarbam 2019-0 Yes [id number] 500mg Take 1 [facility] ol 500 mg 9-16 tablet by ity o f tablet 00:00: mouth (four) Medical times Branch daily. methocarbam 2019-0 Yes [id number] 500mg Take 1 [facility] ol 500 mg 9-16 tablet by ity o f tablet 00:00: mouth 4 (four) Medical times Branch daily. methocarbam 2019-0 Yes [id number] 500mg Take 1 [facility] ol 500 mg 9-16 tablet by ity o f tablet 00:00: mouth 4 [place] 00 (four) Medical times Branch daily. methocarbam Yes [id number] 500mg Take 1 [facility] ol 500 mg 9-16 tablet by ity o f tablet 00:00: mouth 4 [place] 00 (four) Medical times Branch daily. methocarbam 2020- No [id number] 500mg Take 1 [facility] ol 500 mg 9-16 06-20 tablet by ity of tablet 00:00: 00:00 mouth 4 [place] 00 :00 (four) Medical times Branch daily. ketorolac 2019- No 30mg 30 mg, Unive rs (TORADOL) 12-21 Slow IV ity of injection 23:45: 23:22 Push, [place] 30 mg 00 :00 ONCE, 1 Medical dose, [facility] 12/21/18 at 1845, TITA
[facility] : DEMOND PERSON dicyclomine 2019- No 20mg 20 mg, Uni vers (BENTYL) 12-21 Oral, ONCE ity of capsule 20 23:45: 23:22 NOW, 1 [place] mg [place] :[place] dose, [facility] 12/21/18 at Branch 1845, Routine ondansetron 2019- No 4mg 4 mg, Slow Univers (ZOFRAN 12-21 IV Push, ity of (PF)) 22:30: 22:25 ONCE, 1 [place] injection 4 00 :00 dose, [facility] Med ical mg 12/21/18 at Branch 1730, TITA NaCl 0.9% 2019- No 1000mL at 999 Uni vers (NS) bolus 12-21 mL/hr, ity of infusion 22:30: 23:34 1,000 mL, [place] as 1,000 mL 00 :00 IV Medical Infusion, Branch ONCE, 1 dose, [facility] 12/21/18 at 1730, STAT ondansetron 2018- Yes [id number] 4mg Take 1 Univers (ZOFRAN 8-13 tablet by ity of ODT) 4 mg 00:00: mouth [place] disintegrat 00 every 8 Medic al ing tablet (eight) Branch hours as needed for Nausea and Vomiting (N/V). dicyclomine 2019-0 Yes [id number] 20mg Take 1 Univers (BENTYL) 20 8-13 tablet by ity of mg tablet 00:00: mouth 3 [place] 00 (three) Medical times Branch daily as needed for Abdominal pain. ondansetron 2019-0 Yes [id number] 4mg Take 1 Univers (ZOFRAN 8-13 tablet by ity of ODT) 4 mg 00:00: mouth [place] disintegrat 00 every 8 Medic al ing tablet (eight) Branch hours as needed for Nausea and Vomiting (N/V). dicyclomine 2019-0 Yes [id number] 20mg Take 1 Univers (BENTYL) 20 8-13 tablet by ity of mg tablet 00:00: mouth 3 [place] 00 (three) Medical times Branch daily as needed for Abdominal pain. ondansetron 2018-0 Yes [id number] 4mg Take 1 Univers (ZOFRAN 8-13 tablet by ity of ODT) 4 mg 00:00: mouth [place] disintegrat 00 every 8 Medic al ing tablet (eight) Branch hours as needed for Nausea and Vomiting (N/V). dicyclomine 2018-0 Yes [id number] 20mg Take 1 Univers (BENTYL) 20 8-13 tablet by ity of mg tablet 00:00: mouth 3 [place] 00 (three) Medical times Branch daily as needed for Abdominal pain. ondansetron 2019-0 Yes [id number] 4mg Take 1 Univers (ZOFRAN 8-13 tablet by ity of ODT) 4 mg 00:00: mouth [place] disintegrat 00 every 8 Medic al ing tablet (eight) Branch hours as needed for Nausea and Vomiting (N/V). dicyclomine 2019-0 Yes [id number] 20mg Take 1 Univers (BENTYL) 20 8-13 tablet by ity of mg tablet 00:00: mouth 3 [place] 00 (three) Medical times Branch daily as needed for Abdominal pain. ondansetron 2019-0 Yes [id number] 4mg Take 1 Univers (ZOFRAN 8-13 tablet by ity of ODT) 4 mg 00:00: mouth [place] disintegrat 00 every 8 Medic al ing tablet (eight) Branch hours as needed for Nausea and Vomiting (N/V). dicyclomine 2019-0 Yes [id number] 20mg Take 1 Univers (BENTYL) 20 8-13 tablet by ity of mg tablet 00:00: mouth 3 [place] 00 (three) Medical times Branch daily as needed for Abdominal pain. ondansetron 2019-0 Yes [id number] 4mg Take 1 Univers (ZOFRAN 8-13 tablet by ity of ODT) 4 mg 00:00: mouth [place] disintegrat 00 every 8 Medic al ing tablet (eight) Branch hours as needed for Nausea and Vomiting (N/V). dicyclomine 2019- Yes [id number] 20mg Take 1 Univers (BENTYL) 20 8-13 tablet by ity of mg tablet 00:00: mouth 3 [place] 00 (three) Medical times Branch daily as needed for Abdominal pain. ondansetron 2018-0 Yes [id number] 4mg Take 1 Univers (ZOFRAN 8-13 tablet by ity of ODT) 4 mg 00:00: mouth [place] disintegrat 00 every 8 Medic al ing tablet (eight) Branch hours as needed for Nausea and Vomiting (N/V). dicyclomine 2018- Yes [id number] 20mg Take 1 Univers (BENTYL) 20 8-13 tablet by ity of mg tablet 00:00: mouth 3 [place] 00 (three) Medical times Branch daily as needed for Abdominal pain. ondansetron 2018- Yes [id number] 4mg Take 1 Univers (ZOFRAN 8-13 tablet by ity of ODT) 4 mg 00:00: mouth [place] disintegrat 00 every 8 Medic al ing tablet (eight) Branch hours as needed for Nausea and Vomiting (N/V). dicyclomine 2018- Yes [id number] 20mg Take 1 Univers (BENTYL) 20 8-13 tablet by ity of mg tablet 00:00: mouth 3 [place] 00 (three) Medical times Branch daily as needed for Abdominal pain. ondansetron 2018-0 Yes [id number] 4mg Take 1 Univers (ZOFRAN 8-13 tablet by ity of ODT) 4 mg 00:00: mouth [place] disintegrat 00 every 8 Medic al ing tablet (eight) Branch hours as needed for Nausea and Vomiting (N/V). dicyclomine 2019-0 Yes [id number] 20mg Take 1 Univers (BENTYL) 20 8-13 tablet by ity of mg tablet 00:00: mouth 3 [place] 00 (three) Medical times Branch daily as needed for Abdominal pain. ondansetron 2020- No [id number] 4mg Take 1 Univers (ZOFRAN 8-13 05-21 tablet by ity of ODT) 4 mg 00:00: 00:00 mouth [place] disintegrat 00 :00 every 8 Medic al ing tablet (eight) Branch hours as needed for Nausea and Vomiting (N/V). dicyclomine 2020- No [id number] 20mg Take 1 Univers (BENTYL) 20 12-21 tablet by it y of mg tablet 00:00: 00:00 mouth 3 [place] 00 :00 (three) Medical times Branch daily as needed for Abdominal pain. metoprolol 2019- Yes 50mg Take 50 mg U nivers succinate 7-02 by mouth 2 ity of XL (TOPROL 22:02: (two) [place] XL) 25 mg 32 times Medical 24 hr daily. Branch tablet diazePAM Yes 10mg Take 10 mg Uni vers (VALIUM) 10 7-02 by mouth 2 it y of mg tablet 22:02: (two) [place] 32 times Medical daily. Branch metoprolol Yes 50mg Take 50 mg U nivers succinate -02 by mouth 2 ity of XL (TOPROL 22:02: (two) [place] XL) 25 mg 32 times Medical 24 hr daily. Branch tablet diazePAM Yes 10mg Take 10 mg Uni vers (VALIUM) 10 7-02 by mouth 2 it y of mg tablet 22:02: (two) [place] 32 times Medical daily. Branch metoprolol Yes 50mg Take 50 mg U nivers succinate 7-02 by mouth 2 ity of XL (TOPROL 22:02: (two) [place] XL) 25 mg 32 times Medical 24 hr daily. Branch tablet diazePAM 2019 Yes 10mg Take 10 mg Uni vers (VALIUM) 10 7-02 by mouth 2 it y of mg tablet 22:02: (two) [place] 32 times Medical daily. Branch metoprolol 2019 Yes 50mg Take 50 mg U nivers succinate 7-02 by mouth 2 ity of XL (TOPROL 22:02: (two) [place] XL) 25 mg 32 times Medical 24 hr daily. Branch tablet diazePAM Yes 10mg Take 10 mg Uni vers (VALIUM) 10 7-02 by mouth 2 it y of mg tablet 22:02: (two) [place] 32 times Medical daily. Branch traMADOL 2014-05 [...] 4 ity of (ROBAXIN-75 00:00: 00:00 (four) [place] 0) 750 mg 00 :00 times [...] it y of mg tablet 00:00: (two) [place] 00 times Medical daily. Branch busPIRone 2014-05 Yes 10mg Take 1 Tab Un jaqueline (BUSPAR) 10 2-14 by mouth 2 it y of mg tablet 00:00: (two) [place] 00 times Medical daily. Branch busPIRone 2014-05 Yes 10mg Take 1 Tab Un jaqueline (BUSPAR) 10 2-14 by mouth 2 it y of mg tablet 00:00: (two) [place] 00 times Medical daily. Branch busPIRone 2014-05 Yes 10mg Take 1 Tab Un jaqueline (BUSPAR) 10 2-14 by mouth 2 it y of mg tablet 00:00: (two) [place] 00 times Medical daily. Branch busPIRone 2014-05 Yes 10mg Take 1 Tab Un jaqueline (BUSPAR) 10 2-14 by mouth 2 it y of mg tablet 00:00: (two) [place] 00 times Medical daily. Branch busPIRone 2014-05 Yes 10mg Take 1 Tab Un jaqueline (BUSPAR) 10 2-14 by mouth 2 it y of mg tablet 00:00: (two) [place] 00 times Medical daily. Branch busPIRone 2014-05 Yes 10mg Take 1 Tab Un jaqueline (BUSPAR) 10 2-14 by mouth 2 it y of mg tablet 00:00: (two) [place] 00 times Medical daily. Branch busPIRone 2014-05- No 10mg Take 1 Tab U nivers (BUSPAR) 10 2-14 06-20 by mouth 2 i ty of mg tablet 00:00: 00:00 (two) [place] 00 :00 times Medical daily. Branch clonazePAM [...] Source Systolic blood 2021-11-21 15:02:00 121 [facility] Diastolic blood 2021-11-21 15:02:00 64 mm[Hg] [facility] Heart rate 2021-11-21 15:02:00 75 /min [facility] Respiratory rate 2021-11-21 15:02:00 18 /min [facility] Oxygen saturation in 2021-11-21 15:02:00 95 /min [facility] Arterial blood by [facility] Pulse oximetry [place] Body temperature 2021-11-21 11:47:00 37.5 Siobhan [facility] Body height 2021-11-21 11:47:00 170.2 cm [facility] Body weight 2021-11-21 11:47:00 102.059 kg [facility] BMI 2021-11-21 11:47:00 35.24 kg/m2 [facility] Systolic blood 2021-11-19 22:31:18 146 mm[Hg] Univer [facility] Diastolic blood 2021-11-19 22:31:18 85 mm[Hg] Unive rsity of pressure [place] [facility] Heart rate 2021-11-19 22:31:18 92 /min [facility] [place] [facility] Respiratory rate 2021-11-19 22:31:18 16 /min [facility] ersity [facility] [place] [facility] Oxygen saturation in 2021-11-19 22:31:18 97 /min University of Arterial blood by [facility] kofi Pulse oximetry Branch Body temperature 2021-11-19 20:59:00 37.67 Siobhan [facility] [place] [facility] Body height 2021-11-19 20:59:00 170.2 cm [facility] [place] [facility] Body weight 2021-11-19 20:59:00 104.327 kg [facility] [place] [facility] BMI 2021-11-19 20:59:00 36.02 kg/m2 [facility] [place] [facility] Systolic blood 2021-10-08 02:08:00 152 mm[Hg] Univer sity of pressure [place] [facility] Diastolic blood 2021-10-08 02:08:00 102 mm[Hg] Unive rsity of pressure [place] [facility] Heart rate 2021-10-08 02:08:00 83 /min [facility] [place] [facility] Body temperature 2021-10-08 02:08:00 37.28 Siobhan [facility] [place] [facility] Respiratory rate 2021-10-08 02:08:00 22 /min [facility] ers[facility] [place] [facility] Body height 2021-10-08 02:08:00 170.2 cm [facility] [place] [facility] Body weight 2021-10-08 02:08:00 102.785 kg [facility] [place] [facility] BMI 2021-10-08 02:08:00 35.49 kg/m2 [facility] [place] [facility] Oxygen saturation in 2021-10-08 02:08:00 97 /min University of Arterial blood by [facility] Pulse oximetry Branch Systolic blood 2021-09-30 02:00:00 131 mm[Hg] Univer sity of pressure [place] [facility] Diastolic blood 2021-09-30 02:00:00 80 mm[Hg] Unive rsity of pressure [place] [facility] Heart rate 2021-09-30 02:00:00 89 /min [facility] [place] [facility] Respiratory rate 2021-09-30 02:00:00 15 /min [facility] [place] [facility] Oxygen saturation in 2021-09-30 02:00:00 94 /min [facility] of Arterial blood by [facility] Pulse oximetry Branch Body temperature 2021-09-30 01:22:00 36.72 Siobhan [facility] [place] [facility] Body height 2021-09-30 01:22:00 170.2 cm [facility] [place] [facility] Body weight 2021-09-30 01:22:00 104.327 kg [facility] [place] [facility] BMI 2021-09-30 01:22:00 36.02 kg/m2 [facility] [place] [facility] Body temperature 2021-09-14 00:00:00 37.17 Siobhan [facility] [place] [facility] Systolic blood 2021-09-13 21:00:00 145 mm[Hg] Univer sity of pressure [place] [facility] Diastolic blood 2021-09-13 21:00:00 98 mm[Hg] Unive rsity of pressure [place] [facility] Heart rate 2021-09-13 21:00:00 75 /min [facility] [place] [facility] Respiratory rate 2021-09-13 21:00:00 15 /min [facility] ers[facility] [place] [facility] Oxygen saturation in 2021-09-13 21:00:00 96 /min University of Arterial blood by [facility] Pulse oximetry Branch Body weight 2021-09-13 11:00:00 104.463 kg [facility] [place] [facility] BMI 2021-09-13 11:00:00 36.07 kg/m2 [facility] [place] [facility] Body height 2021-09-12 16:00:00 170.2 cm [facility] [place] [facility] Systolic blood 2021-09-06 12:14:00 133 mm[Hg] Univer sity of pressure [place] [facility] Diastolic blood 2021-09-06 12:14:00 84 mm[Hg] Unive rsity of pressure [place] [facility] Heart rate 2021-09-06 12:14:00 78 /min [facility] [place] [facility] Body temperature 2021-09-06 12:14:00 36.11 Siobhan [facility] [place] [facility] Respiratory rate 2021-09-06 12:14:00 17 /min [facility] [place] [facility] Oxygen saturation in 2021-09-06 12:14:00 96 /min [facility] of Arterial blood by [place] [facility] kofi Pulse oximetry Branch Body height 2021-09-05 20:10:00 170.2 cm [facility] [place] [facility] Body weight 2021-09-05 20:10:00 99.791 kg [facility] [place] [facility] BMI 2021-09-05 20:10:00 34.46 kg/m2 [facility] [place] [facility] Systolic blood 2021-08-07 16:16:00 132 mm[Hg] Univer sity of pressure [place] [facility] Diastolic blood 2021-08-07 16:16:00 86 mm[Hg] Unive rsity of pressure [place] [facility] Heart rate 2021-08-07 16:16:00 71 /min [facility] [place] [facility] Body temperature 2021-08-07 16:16:00 36.22 Siobhan [facility] [place] [facility] Respiratory rate 2021-08-07 16:16:00 18 /min [facility] [place] [facility] Oxygen saturation in 2021-08-07 16:16:00 94 /min [facility] Arterial blood by [place] [facility] kofi Pulse oximetry Branch Body height 2021-08-06 20:45:00 170.2 cm [facility] [place] [facility] Body weight 2021-08-06 20:45:00 104.327 kg [facility] [place] [facility] BMI 2021-08-06 20:45:00 36.02 kg/m2 [facility] [place] [facility] WEIGHT 2021-07-15 23:46:00 100 kg WEIGHT 2021-07-15 23:46:00 100 kg Systolic blood 2021-06-05 18:40:00 149 mm[Hg] Univer sity of pressure [place] [facility] Diastolic blood 2021-06-05 18:40:00 74 mm[Hg] Unive rsity of pressure [place] [facility] Heart rate 2021-06-05 18:40:00 80 /min [facility] [place] [facility] Respiratory rate 2021-06-05 18:40:00 17 /min [facility] ers[facility] [place] [facility] Oxygen saturation in 2021-06-05 18:40:00 100 /min [facility] of Arterial blood by [place] [facility]ofi Pulse oximetry Branch Body temperature 2021-06-05 15:05:00 36.11 Siobhan [facility] [place] [facility] Body height 2021-06-05 15:05:00 170.2 cm [facility] [place] [facility] Body weight 2021-06-05 15:05:00 99.338 kg [facility] [place] [facility] BMI 2021-06-05 15:05:00 34.30 kg/m2 [facility] [place] [facility] Systolic blood 2021-05-27 18:00:00 146 mm[Hg] Univer sity of pressure [place] [facility] Diastolic blood 2021-05-27 18:00:00 130 mm[Hg] Unive rsity of pressure [place] [facility] Heart rate 2021-05-27 18:00:00 85 /min [facility] [place] [facility] Oxygen saturation in 2021-05-27 18:00:00 97 /min [facility] of Arterial blood by [facility] kofi Pulse oximetry Branch Respiratory rate 2021-05-27 17:52:00 18 /min [facility] ersity [facility] [place] [facility] Body temperature 2021-05-27 15:53:00 35.78 Siobhan [facility] [place] [facility] Body weight 2021-05-27 15:53:00 102.967 kg [facility] [place] [facility] BMI 2021-05-27 15:53:00 34.52 kg/m2 [facility] [place] [facility] Respiratory rate 2021-05-05 13:33:00 18 /min [facility] [place] [facility] Oxygen saturation in 2021-05-05 13:33:00 97 /min [facility] of Arterial blood by [facility] Pulse oximetry Branch Systolic blood 2021-05-05 12:44:00 155 mm[Hg] Univer sity of pressure [place] [facility] Diastolic blood 2021-05-05 12:44:00 75 mm[Hg] Unive rsity of pressure [place] [facility] Heart rate 2021-05-05 12:44:00 59 /min [facility] [place] [facility] Body temperature 2021-05-05 12:44:00 36.5 Siobhan [facility] [place] [facility] Body height 2021-05-05 06:46:00 172.7 cm [facility] [place] [facility] Body weight 2021-05-05 06:46:00 102.967 kg [facility] [place] [facility] BMI 2021-05-05 06:46:00 34.52 kg/m2 [facility] [place] [facility] Systolic blood 2021-03-31 14:51:24 151 mm[Hg] Univer sity of pressure [place] [facility] Diastolic blood 2021-03-31 14:51:24 98 mm[Hg] Unive rsity of pressure [place] [facility] Heart rate 2021-03-31 14:51:24 92 /min [facility] [place] [facility] Body temperature 2021-03-31 14:51:24 36.67 Siobhan [facility] [place] [facility] Respiratory rate 2021-03-31 14:51:24 18 /min [facility] [place] [facility] Body height 2021-03-31 14:35:00 170.2 cm [facility] [place] [facility] Body weight 2021-03-31 14:35:00 99.791 kg [facility] [place] [facility] BMI 2021-03-31 14:35:00 34.46 kg/m2 [facility] [place] [facility] Oxygen saturation in 2021-03-31 14:35:00 99 /min [facility] of Arterial blood by [facility] Pulse oximetry Branch Systolic blood 2021-02-18 16:00:00 110 mm[Hg] Univer sity of pressure [place] [facility] Diastolic blood 2021-02-18 16:00:00 77 mm[Hg] Unive rsity of pressure [place] [facility] Heart rate 2021-02-18 16:00:00 61 /min [facility] [place] [facility] Respiratory rate 2021-02-18 16:00:00 15 /min [facility] [place] [facility] Oxygen saturation in 2021-02-18 16:00:00 98 /min [facility] of Arterial blood by [facility] Pulse oximetry Branch Body temperature 2021-02-18 13:14:00 36.33 Siobhan [facility] [place] [facility] Body weight 2021-02-18 13:14:00 99.791 kg [facility] [place] [facility] BMI 2021-02-18 13:14:00 34.45 kg/m2 [facility] [place] [facility] Systolic blood 2021-01-24 13:26:00 137 mm[Hg] Univer sity of pressure [place] [facility] Diastolic blood 2021-01-24 13:26:00 83 [...] 2021-01-24 13:26:00 34.45 kg/m2 [facility] [place] [facility] Oxygen saturation in 2021-01-24 13:26:00 95 /min [facility] of Arterial blood by [place] [facility]i Pulse oximetry Branch Systolic blood 2020-12-07 15:00:00 121 mm[Hg] Univer sity of pressure [place] [facility] Diastolic blood 2020-12-07 15:00:00 86 mm[Hg] Unive rsity of pressure [place] [facility] Heart rate 2020-12-07 15:00:00 79 /min [facility] [place] [facility] Body temperature 2020-12-07 15:00:00 36.22 Siobhan [facility] [place] [facility] Respiratory rate 2020-12-07 15:00:00 17 /min [facility] [place] [facility] Oxygen saturation in 2020-12-07 15:00:00 94 /min University of Arterial blood by [employer] kofi Pulse oximetry Branch Body weight 2020-12-07 13:31:00 94.348 kg [facility] [place] [facility] BMI 2020-12-07 13:31:00 32.57 kg/m2 [facility] [place] [facility] Systolic blood 2020-10-28 12:21:00 150 mm[Hg] Univer sity of pressure [place] [facility] Diastolic blood 2020-10-28 12:21:00 78 mm[Hg] Unive rsity of pressure [place] [facility] Heart rate 2020-10-28 12:21:00 73 /min [facility] [place] [facility] Body temperature 2020-10-28 12:21:00 36.56 Siobhan [facility] [place] [facility] Respiratory rate 2020-10-28 12:21:00 11 /min Univ [facility]ity [facility] [place] [facility] Oxygen saturation in 2020-10-28 12:21:00 98 /min [facility] Arterial blood by [employer] kofi Pulse oximetry Branch Body weight 2020-10-28 09:00:00 94.666 kg [facility] [place] [facility] BMI 2020-10-28 09:00:00 32.68 kg/m2 [facility] [place] [facility] Body height 2020-10-25 13:00:00 170.2 cm [facility] [place] [facility] Systolic blood 2020-07-29 00:50:00 165 mm[Hg] Univer sity of pressure [place] [facility] Diastolic blood 2020-07-29 00:50:00 103 mm[Hg] Unive rsity of pressure [place] [facility] Heart rate 2020-07-29 00:50:00 100 /min [facility] [place] [facility] Respiratory rate 2020-07-29 00:50:00 20 /min [facility] [place] [facility] Oxygen saturation in 2020-07-29 00:50:00 99 /min [facility] Arterial blood by [facility] Pulse oximetry Branch Body temperature 2020-07-28 18:16:26 36.5 Siobhan [facility] [place] [facility] Body height 2020-07-28 18:14:00 170.2 cm [facility] [place] [facility] Body weight 2020-07-28 18:14:00 83.915 kg [facility] [place] [facility] BMI 2020-07-28 18:14:00 28.98 kg/m2 [facility] [place] [facility] Systolic blood 2020-07-29 00:50:00 165 mm[Hg] Univer sity of pressure [place] [facility] Diastolic blood 2020-07-29 00:50:00 103 mm[Hg] Unive rsity of pressure [place] [facility] Heart rate 2020-07-29 00:50:00 100 /min [facility] [place] [facility] Respiratory rate 2020-07-29 00:50:00 20 /min Univ [facility] [place] [facility] Oxygen saturation in 2020-07-29 00:50:00 99 /min [facility] of Arterial blood by [facility] Pulse oximetry Branch Body temperature 2020-07-28 18:16:26 36.5 Siobhan [facility] [place] [facility] Body height 2020-07-28 18:14:00 170.2 cm [facility] [place] [facility] Body weight 2020-07-28 18:14:00 83.915 kg [facility] [place] [facility] BMI 2020-07-28 18:14:00 28.98 kg/m2 [facility] [place] [facility] Systolic blood 2020-06-30 15:00:00 145 mm[Hg] Univer sity of pressure [place] [facility] Diastolic blood 2020-06-30 15:00:00 82 mm[Hg] Unive rsity of pressure [place] [facility] Heart rate 2020-06-30 15:00:00 88 /min [facility] [place] [facility] Respiratory rate 2020-06-30 15:00:00 15 /min [facility] [place] [facility] Oxygen saturation in 2020-06-30 15:00:00 97 /min [facility] Arterial blood by [place] [facility] Pulse oximetry Branch Body temperature 2020-06-30 11:30:00 36.17 Siobhan [facility] [place] [facility] Body height 2020-06-30 11:30:00 170.2 cm [facility] [place] [facility] Body weight 2020-06-30 11:30:00 83.915 kg [facility] [place] [facility] BMI 2020-06-30 11:30:00 28.98 kg/m2 [facility] [place] [facility] Systolic blood 2020-06-30 15:00:00 145 mm[Hg] Univer sity of pressure [place] [facility] Diastolic blood 2020-06-30 15:00:00 82 mm[Hg] Unive rsity of pressure [place] [facility] Heart rate 2020-06-30 15:00:00 88 /min [facility] [place] [facility] Respiratory rate 2020-06-30 15:00:00 15 /min [facility] [place] [facility] Oxygen saturation in 2020-06-30 15:00:00 97 /min [facility] Arterial blood by [place] [facility] Pulse oximetry Branch Body temperature 2020-06-30 11:30:00 36.17 Siobhan Univ ersity of [facility] Body height 2020-06-30 11:30:00 170.2 cm [facility] Body weight 2020-06-30 11:30:00 83.915 kg [facility] [place] [facility] BMI 2020-06-30 11:30:00 28.98 kg/m2 [facility] [place] [facility] Systolic blood 2020-06-23 21:33:48 151 mm[Hg] Univer [facility]ity of pressure [facility] Diastolic blood 2020-06-23 21:33:48 98 mm[Hg] Unive rsity of pressure [facility] Heart rate 2020-06-23 21:33:48 98 /min [facility] Respiratory rate 2020-06-23 21:33:48 16 /min [facility] [place] [facility] Oxygen saturation in 2020-06-23 21:33:48 97 /min [facility] Arterial blood by [place] [facility] Body temperature 2020-06-23 19:45:00 37 Siobhan [facility] [place] [facility] Body height 2020-06-23 19:45:00 170.2 cm [facility] Body weight 2020-06-23 19:45:00 83.915 kg [facility] BMI 2020-06-23 19:45:00 28.98 kg/m2 [facility] Systolic blood 2020-06-23 21:33:48 151 mm[Hg] Univer [facility]ity of pressure [facility] Diastolic blood 2020-06-23 21:33:48 98 mm[Hg] Unive rsity of pressure [facility] Heart rate 2020-06-23 21:33:48 98 /min [facility] Respiratory rate 2020-06-23 21:33:48 16 /min [facility] Oxygen saturation in 2020-06-23 21:33:48 97 /min [facility] Arterial blood by [place] [facility] Body temperature 2020-06-23 19:45:00 37 Siobhan [facility] [place] [facility] Body height 2020-06-23 19:45:00 170.2 cm [facility] Body weight 2020-06-23 19:45:00 83.915 kg [facility] BMI 2020-06-23 19:45:00 28.98 kg/m2 [facility] Systolic blood 2019-11-10 05:41:00 145 mm[Hg] [facility] Diastolic blood 2019-11-10 05:41:00 88 mm[Hg] [facility] pressure [facility] Heart rate 2019-11-10 05:41:00 68 /min [facility] [place] [facility] Respiratory rate 2019-11-10 05:41:00 18 /min [facility] [place] [facility] Oxygen saturation in 2019-11-10 05:41:00 100 /min [facility] Arterial blood by [facility] kofi [facility] Branch Body temperature 2019-11-10 04:15:00 36.61 Siobhan [facility] [place] [facility] Body height 2019-11-10 04:15:00 170.2 cm [facility] Body weight 2019-11-10 04:15:00 86.183 kg [facility] [place] [facility] BMI 2019-11-10 04:15:00 29.76 kg/m2 [facility] [place] [facility] Systolic blood 2019-11-10 05:41:00 145 mm[Hg] [facility] Diastolic blood 2019-11-10 05:41:00 88 mm[Hg] Unive rsity of pressure [facility] Heart rate 2019-11-10 05:41:00 68 /min [facility] [place] [facility] Respiratory rate 2019-11-10 05:41:00 18 /min [facility] Oxygen saturation in 2019-11-10 05:41:00 100 /min [facility] Arterial blood by [facility] kofi [facility] Branch Body temperature 2019-11-10 04:15:00 36.61 Siobhan [facility] [place] [facility] Body height 2019-11-10 04:15:00 170.2 cm [facility] Body weight 2019-11-10 04:15:00 86.183 kg [facility] BMI 2019-11-10 04:15:00 29.76 kg/m2 [facility] Systolic blood 2019-09-29 16:30:00 117 mm[Hg] [facility] Diastolic blood 2019-09-29 16:30:00 78 mm[Hg] Unive rsity of pressure [facility] Heart rate 2019-09-29 16:30:00 56 /min [facility] Respiratory rate 2019-09-29 16:30:00 18 /min [facility] Oxygen saturation in 2019-09-29 16:30:00 98 /min [facility]terial blood by [facility] kofi [facility] Branch Body temperature 2019-09-29 14:39:00 36.56 Siobhan [facility] [place] [facility] Body height 2019-09-29 14:39:00 170.2 cm [facility] [place] [facility] Body weight 2019-09-29 14:39:00 86.183 kg [facility] BMI 2019-09-29 14:39:00 29.76 kg/m2 [facility] Systolic blood 2019-09-29 16:30:00 117 mm[Hg] [facility] pressure [facility] Diastolic blood 2019-09-29 16:30:00 78 mm[Hg] [facility] pressure [facility] Heart rate 2019-09-29 16:30:00 56 /min [facility] Respiratory rate 2019-09-29 16:30:00 18 /min [facility] Oxygen saturation in 2019-09-29 16:30:00 98 /min [facility] Arterial blood by [employer] kofi [facility] Branch Body temperature 2019-09-29 14:39:00 36.56 Siobhan [facility] [place] [facility] Body height 2019-09-29 14:39:00 170.2 cm [facility] [place] [facility] Body weight 2019-09-29 14:39:00 86.183 kg [facility] [place] [facility] BMI 2019-09-29 14:39:00 29.76 kg/m2 [facility] [place] [facility] Systolic blood 2019-06-16 13:09:00 153 mm[Hg] Univer sity of pressure [facility] Diastolic blood 2019-06-16 13:09:00 82 mm[Hg] Unive rsity of pressure [facility] Respiratory rate 2019-06-16 13:09:00 18 /min [facility] [place] [facility] Body height 2019-06-16 13:09:00 170.2 cm [facility] [place] [facility] Body weight 2019-06-16 13:09:00 88.451 kg [facility] [place] [facility] BMI 2019-06-16 13:09:00 30.54 kg/m2 [facility] Oxygen saturation in 2019-06-16 13:09:00 98 /min [facility]ial blood by [employer] [facility] Systolic blood 2019-06-16 13:09:00 153 mm[Hg] [facility] Diastolic blood 2019-06-16 13:09:00 82 mm[Hg] [facility]ive rsity of pressure [facility] Respiratory rate 2019-06-16 13:09:00 18 /min [facility] [place] [facility] Body height 2019-06-16 13:09:00 170.2 cm [facility] [place] [facility] Body weight 2019-06-16 13:09:00 88.451 kg [facility] [place] [facility] BMI 2019-06-16 13:09:00 30.54 kg/m2 [facility] [place] [facility] Oxygen saturation in 2019-06-16 13:09:00 98 /min [facility]terial blood by [facility] kofi [facility] Branch Systolic blood 2019-06-15 17:26:00 190 mm[Hg] [facility] of pressure [facility] Diastolic blood 2019-06-15 17:26:00 122 mm[Hg] [facility]ive rsity of pressure [facility] Heart rate 2019-06-15 17:26:00 97 /min [facility] [place] [facility] Body temperature 2019-06-15 17:26:00 36.56 Siobhan [facility] [place] [facility] Respiratory rate 2019-06-15 17:26:00 16 /min [facility] [place] [facility] Body weight 2019-06-15 17:26:00 90.266 kg [facility] [place] [facility] BMI 2019-06-15 17:26:00 31.17 kg/m2 [facility] Oxygen saturation in 2019-06-15 17:26:00 97 /min [facility] Arterial blood by [facility] Pulse oximetry Branch Systolic blood 2019-06-15 17:26:00 190 mm[Hg] Univer [facility]ity of pressure [facility] Diastolic blood 2019-06-15 17:26:00 122 mm[Hg] Unive rsity of pressure [facility] Heart rate 2019-06-15 17:26:00 97 /min [facility] [place] [facility] Body temperature 2019-06-15 17:26:00 36.56 Siobhan [facility] [place] [facility] Respiratory rate 2019-06-15 17:26:00 16 /min [facility] [place] [facility] Body weight 2019-06-15 17:26:00 90.266 kg [facility] [place] [facility] BMI 2019-06-15 17:26:00 31.17 kg/m2 [facility] [place] [facility] Oxygen saturation in 2019-06-15 17:26:00 97 /min [facility] [place] [facility] Systolic blood 2019 16:22:00 116 mm[Hg] Univer [facility]ity of pressure [facility] Diastolic blood 2019 16:22:00 78 mm[Hg] Unive rsity of pressure [facility] Heart rate 2019 16:22:00 84 /min [facility] Body temperature 2019 16:22:00 37 Siobhan [facility] Respiratory rate 2019 16:22:00 17 /min [facility] Body height 2019 16:22:00 170.2 cm [facility] Body weight 2019 16:22:00 90.357 kg [facility] [place] [facility] BMI 2019 16:22:00 31.20 kg/m2 [facility] Oxygen saturation in 2019 16:22:00 96 /min [facility] Arterial blood by [facility] Pulse oximetry Branch Systolic blood 2019 16:22:00 116 mm[Hg] Univer sity of pressure [facility] Diastolic blood 2019 16:22:00 78 mm[Hg] Unive rsity of pressure [facility] Heart rate 2019 16:22:00 84 /min [facility] Body temperature 2019 16:22:00 37 Siobhan [facility] Respiratory rate 2019 16:22:00 17 /min [facility] Body height 2019 16:22:00 170.2 cm [facility] Body weight 2019 16:22:00 90.357 kg [facility] [place] [facility] BMI 2019 16:22:00 31.20 kg/m2 [facility] Oxygen saturation in 2019 16:22:00 96 /min [facility] Arterial blood by [facility] kofi [facility] Branch Heart rate 2019-01-25 00:00:00 79 /min [facility] Respiratory rate 2019-01-25 00:00:00 15 /min [facility] [place] [facility] Systolic blood 2019-01-24 23:00:00 122 mm[Hg] Univer [facility]ity of [facility] Diastolic blood 2019-01-24 23:00:00 68 mm[Hg] Unive rsity of pressure [facility] Oxygen saturation in 2019-01-24 23:00:00 93 /min [facility] by [place] [facility] Body temperature 2019-01-24 20:15:00 36.94 Siobhan [facility] [place] [facility] Body weight 2019-01-24 20:15:00 86.183 kg [facility] BMI 2019-01-24 20:15:00 28.89 kg/m2 [facility] Heart rate 2019-01-25 00:00:00 79 /min [facility] Respiratory rate 2019-01-25 00:00:00 15 /min [facility] Systolic blood 2019-01-24 23:00:00 122 mm[Hg] [facility]iver [facility] pressure [facility] Diastolic blood 2019-01-24 23:00:00 68 mm[Hg] Unive rsity of pressure [facility] Oxygen saturation in 2019-01-24 23:00:00 93 /min [facility] blood by [place] [facility] Body temperature 2019-01-24 20:15:00 36.94 Siobhan [facility] [place] [facility] Body weight 2019-01-24 20:15:00 86.183 kg [facility] [place] [facility] BMI 2019-01-24 20:15:00 28.89 kg/m2 [facility] Systolic blood 2018-12-22 00:30:00 142 mm[Hg] [facility]iver [facility]ity [facility] Diastolic blood 2018-12-22 00:30:00 90 mm[Hg] Unive rsity of pressure [facility] Heart rate 2018-12-22 00:30:00 86 /min [facility] Respiratory rate 2018-12-22 00:30:00 18 /min [facility] [place] [facility] Oxygen saturation in 2018-12-22 00:30:00 97 /min [facility] by [place] [facility] Body temperature 2018-12-21 21:07:00 37.11 Siobhan [facility] [place] [facility] Body weight 2018-12-21 21:07:00 86.183 kg [facility] BMI 2018-12-21 21:07:00 28.89 kg/m2 [facility] Systolic blood 2018-12-22 00:30:00 142 mm[Hg] Univer sity of pressure [facility] Diastolic blood 2018-12-22 00:30:00 90 mm[Hg] Unive [facility]ity of [facility] Heart rate 2018-12-22 00:30:00 86 /min Universi [facility] Respiratory rate 2018-12-22 00:30:00 18 /min [facility] Oxygen saturation in 2018-12-22 00:30:00 97 /min [facility] Arterial blood by [facility] Pulse oximetry [place] Body temperature 2018-12-21 21:07:00 37.11 [facility] Body weight 2018-12-21 21:07:00 86.183 kg [facility] BMI 2018-12-21 21:07:00 28.89 kg/m2 [facility] Body weight 2020-02-01 12:04:00 85.548 kg [facility] BMI 2020-02-01 12:04:00 29.54 kg/m2 [facility] Systolic blood 2020-02-01 11:09:39 138 mm[Hg] Method [facility] pressure Diastolic blood 2020-02-01 11:09:39 78 mm[Hg] [facility] pressure Heart rate 2020-02-01 11:09:39 62 /min [facility] Body temperature 2020-02-01 11:09:39 36.5 Siobhan [facility] Respiratory rate 2020-02-01 11:09:39 18 /min [facility] Oxygen saturation in 2020-02-01 11:09:39 98 /min [facility] Arterial blood by Pulse oximetry Body height 2020-01-28 19:00:00 170.2 cm [facility] Procedures Procedure Date / Time Performing Clinician Source Performed URINALYSIS 2021-11-21 14:04:00 Ciera Seymour [facility] MAGNESIUM 2021-11-21 12:31:00 Ciera Seymour [facility] COMP. METABOLIC PANEL 2021-11-21 12:31:00 Ciera Seymour [facility] ([id number]) Medical Branch CBC WITH DIFF 2021-11-21 12:31:00 Ciera Seymour [facility] CONSENT/REFUSAL FOR 2021-11-21 11:40:05 Doctor Unassigned, No Un [facility] [place] [facility] Name Medical Branch CREATINE KINASE 2021-11-19 21:21:[address] [facility] MAGNESIUM 2021-11-19 21:21:00 Jerry Martin [facility] COMP. METABOLIC PANEL 2021-11-19 21:21:00 Jerry Martin [facility] ([id number]) Medical Branch CBC WITH DIFF 2021-11-19 21:21:00 Jerry Martin [facility] URINALYSIS 2021-11-19 21:21:00 Jerry Martin [facility] COVID-19 (ID NOW RAPID 2021-11-19 21:21:00 Jerry Martin [facility] TESTING) Medical Branch CONSENT/REFUSAL FOR 2021-11-19 20:51:07 Doctor Unassigned, No [facility] [place] [facility] Name Medical [facility] CONSENT/REFUSAL FOR 2021-10-08 01:44:28 Doctor Unassigned, No Un [facility] [place] [facility]REAT[facility] Name [facility] EKG-12 LEAD 2021-09-30 02:44:04 [facility]iana [facility] CREATINE KINASE 2021-09-30 01:37:00 Liliana [facility] MAGNESIUM 2021-09-30 01:37:00 Liliana [facility] TROPONIN I 2021-09-30 01:37:00 [facility] COMP. METABOLIC PANEL 2021-09-30 01:37:00 [facility] [place] [id number] ETHANOL 2021-09-30 01:37:00 [facility] CBC WITH DIFF 2021-09-30 01:37:00 Liliana [facility] CONSENT/REFUSAL FOR 2021-09-30 01:16:32 [facility] Name [facility] CT ANGIOGRAPHY CORONARIES 2021-09-13 18:33:48 Johan Porras [facility] WITHOUT CARDIAC CALCIUM [facility] SCORING TROPONIN I 2021-09-13 01:01:00 Jon Acevedo [facility] XR CHEST 1 VW 2021-09-12 13:33:24 Singer [facility] HB ECG ROUTINE & RHYTHM 2021-09-12 13:25:38 Singer [facility] [address] STRIP [facility] LIPASE 2021-09-12 13:24:00 Singer [facility] MAGNESIUM 2021-09-12 13:24:00 Singer [facility] TROPONIN I 2021-09-12 13:24:00 Singer [facility] COMP. METABOLIC PANEL 2021-09-12 13:24:00 Singer [facility] ([id number]) [facility] CBC WITH DIFF 2021-09-12 13:24:00 Singer [facility] N-TERMINAL PRO-BNP 2021-09-12 13:24:00 Singer Johan [facility] CONSENT/REFUSAL FOR 2021-09-12 13:14:34 [facility], [facility] Name Medical [place] MAGNESIUM 2021-09-06 09:16:00 Alvin Baca [facility] TROPONIN I 2021-09-06 09:16:00 Alvin Baca [facility] BASIC METABOLIC PANEL 2021-09-06 09:16:00 Alvin Baca [facility] (NA, K, CL, CO2, GLUCOSE, Medica l Branch BUN, CREATININE, CA) TROPONIN I 2021-09-05 23:16:00 Alvin Baca [facility] TRANSTHORACIC ECHO (TTE) 2021-09-05 20:10:39 Alvin Baca [facility] COMPLETE W/ CONTRAST Medical [facility] URINE DRUG (IMMUNOASSAY) 2021-09-05 18:40:00 Alvin Baca [facility] - COMPREHENSIVE DRUG Medical [facility] SCREEN DUPLEX VENOUS LEGS 2021-09-05 17:06:18 Lynn Tirnidad [facility] BILATERAL - BY VASCULAR [facility] LAB XR CHEST 2 VW 2021-09-05 15:53:16 Lynn Trinidad [facility] URINALYSIS 2021-09-05 15:41:00 Lynn Trinidad [facility] LIPASE 2021-09-05 15:31:00 Lynn Trinidad [facility] TROPONIN I 2021-09-05 15:31:00 Lynn Trinidad [facility] COMP. METABOLIC PANEL 2021-09-05 15:31:00 Lynn Trinidad [facility] ([id number]) [facility] LIPID PANEL ([id number])(TOTAL 2021-09-05 15:31:00 Jaspreet GoffH Julia [facility] CHOLESTEROL, [facility] TRIGLYCERIDES, HDL) CBC WITH DIFF 2021-09-05 15:31:00 Lynn Trinidad [facility] GLYCOSYLATED HEMOGLOBIN 2021-09-05 15:31:00 Jaspreet GoffHJulia [facility] (A1C) [facility] D-DIMER 2021-09-05 15:31:00 Lynn Trinidad [facility] N-TERMINAL PRO-BNP 2021-09-05 15:31:00 Lynn Trinidad [facility] ECG ROUTINE & RHYTHM 2021-09-05 15:04:46 Lynn Trinidad [facility] CONSENT/REFUSAL FOR 2021-09-05 14:57:31 Doctor Unassigned, No Un [facility] DIAGNOSIS AND TREATMENT Name [facility] TRANSTHORACIC ECHO (TTE) 2021-08-06 20:45:28 Jaspreet Goff [facility] COMPLETE W/ CONTRAST Medical [facility] CT CHEST PULMONARY 2021-08-06 14:34:41 Raya Jean [facility] ANGIOGRAM Medical Branch MAGNESIUM 2021-08-06 09:38:00 [facility] [place] [facility] TROPONIN I 2021-08-06 09:38:00 Jaspreet Goff [facility] Medical [place] BASIC METABOLIC PANEL 2021-08-06 09:38:00 Jon Acevedo [facility] (NA, K, CL, CO2, GLUCOSE, Medica l Branch BUN, CREATININE, CA) LIPID PANEL ([id number])(TOTAL 2021-08-06 09:38:00 Jaspreet Goff [facility] CHOLESTEROL, Medical Branch TRIGLYCERIDES, HDL) CBC WITH DIFF 2021-08-06 09:38:00 Kristina [facility] D-DIMER 2021-08-06 00:53:00 Kristina [facility] TROPONIN I 2021-08-06 00:52:00 Kristina [facility] DUPLEX VENOUS LEGS 2021-08-05 20:15:00 [facility] - [facility]ASCULAR Medical Branch LAB PHOSPHORUS 2021-08-05 17:35:00 Jon Acevedo [facility] MAGNESIUM 2021-08-05 17:35:00 Raya Sue [facility] TROPONIN I 2021-08-05 17:35:00 Raya Sue [facility] COMP. METABOLIC PANEL 2021-08-05 17:35:00 Raya Sue [facility] ([id number]) Medical Branch CBC WITH DIFF 2021-08-05 17:35:00 Raya Sue [facility] N-TERMINAL PRO-BNP 2021-08-05 17:35:00 Raya Sue [facility] Medical [place] COVID-19 (ID NOW RAPID 2021-08-05 17:35:00 Raya Sue [facility] TESTING) Medical Branch LAB ONLY COVID 2021-08-05 17:35:[address] [facility] XR CHEST 1 VW 2021-08-05 17:03:55 Raya Sue [facility] HB ECG ROUTINE & RHYTHM 2021-08-05 15:57:49 Raya Sue [facility] STRIP Medical Branch CONSENT/REFUSAL FOR 2021-08-05 15:06:08 Doctor Unassigned, No Un [facility] DIAGNOSIS AND TREATMENT Name Medical Branch TROPONIN I 2021-06-05 17:30:00 Jennifer Shea [facility] XR CHEST 1 VW 2021-06-05 15:27:49 Shabbir Jennifer [facility] LIPASE 2021-06-05 15:11:00 Jennifer Shea [facility] TROPONIN I 2021-06-05 15:11:00 Jennifer Shea [facility] COMP. METABOLIC PANEL 2021-06-05 15:11:00 Jennifer Shea [facility] ([id number]) Medical Branch CBC WITH DIFF 2021-06-05 15:11:00 Shabbir [facility] PROTHROMBIN TIME / INR 2021-06-05 15:11:00 Jennifer Shea [facility] ACTIVATED PARTIAL 2021-06-05 15:11:00 Shabbir [facility] COVID-19 (ID NOW RAPID 2021-06-05 15:11:00 Jennifer Shea [facility] TESTING) [facility] XR CHEST 1 VW 2021-05-27 16:27:27 Jennifer Shea [facility] LIPASE 2021-05-27 15:59:00 Jennifer Shea [facility] TROPONIN I 2021-05-27 15:59:00 Jennifer Shea [facility] COMP. METABOLIC PANEL 2021-05-27 15:59:00 Jennifer Shea [facility] ([id number]) [facility] CBC WITH DIFF 2021-05-27 15:59:00 Shabbir [facility] PROTHROMBIN TIME / INR 2021-05-27 15:59:00 Jennifer Shea [facility] ACTIVATED PARTIAL 2021-05-27 15:59:00 Shabbir [facility] URINALYSIS 2021-05-27 15:59:00 Shabbir Jennifer [facility] COVID-19 (ID NOW RAPID 2021-05-27 15:59:00 Jennifer Shea [facility] TESTING) Medical [place] URINE DRUG (IMMUNOASSAY) 2021-05-27 15:59:00 Jennifer Shea [facility] SCREEN W/O REFLEX NOTICE OF PRIVACY 2021-05-27 15:50:40 Doctor Unassigned, No [facility] Name [facility] Branch CONSENT/REFUSAL FOR 2021-05-27 15:50:22 [facility], [facility] Name Medical Branch TROPONIN I 2021-05-05 12:18:00 John [facility] CREATINE KINASE 2021-05-05 09:25:00 John [facility] TROPONIN I 2021-05-05 09:25:00 John [facility] PROCALCITONIN 2021-05-05 09:25:00 John [facility] PHOSPHORUS 2021-05-05 02:50:00 John [facility] URIC ACID 2021-05-05 02:50:00 John [facility] MAGNESIUM 2021-05-05 02:50:00 John [facility] TROPONIN I 2021-05-05 02:50:00 Shelley Shahid [facility] THYROID STIMULATING 2021-05-05 02:50:00 Laura Pedraza [facility] HORMONE [facility] LIPID PANEL ([id number])(TOTAL 2021-05-05 02:50:00 Laura [facility]raza [facility], HDL) ETHANOL 2021-05-05 02:50:00 John paco [facility] N-TERMINAL PRO-BNP 2021-05-05 02:50:00 John paco [facility] XR CHEST 1 VW 2021-05-05 00:46:11 Ciera Seymour [facility] LIPASE 2021-05-05 00:37:00 Ciera Seymour [facility] TROPONIN I 2021-05-05 00:37:00 Ciera Seymour [facility] COMP. METABOLIC PANEL 2021-05-05 00:37:00 Ciera Seymour [facility] ([id number]) Medical Branch CBC WITH DIFF 2021-05-05 00:37:00 Ciera Seymour [facility] GLYCOSYLATED HEMOGLOBIN 2021-05-05 00:37:00 Laura Pedraza [facility] (A1C) Medical Branch PROTHROMBIN TIME / INR 2021-05-05 00:37:00 Ciera Seymour [facility] D-DIMER 2021-05-05 00:37:00 Shelley Shahid [facility] ACTIVATED PARTIAL 2021-05-05 00:37:00 Ciera Seymour [facility] COVID-19 (ID NOW RAPID 2021-05-05 00:37:00 Ciera Seymour [facility] TESTING) Medical Branch XR HAND 3+ VW RIGHT 2021-03-31 14:51:57 Ciera Seymour [facility] CONSENT/REFUSAL FOR 2021-03-31 14:35:47 Doctor Unassigned, No [facility] DIAGNOSIS AND TREATMENT Name Medical Branch XR CHEST 1 VW 2021-02-18 13:49:48 Singer [facility] MAGNESIUM 2021-02-18 13:35:00 Singer [facility] TROPONIN I 2021-02-18 13:35:00 Singer [facility] COMP. METABOLIC PANEL 2021-02-18 13:35:00 Johan Porras [facility] ([id number]) [facility] LIPID PANEL ([id number])(TOTAL 2021-02-18 13:35:00 Johan Porras [facility] CHOLESTEROL, [facility] TRIGLYCERIDES, HDL) CBC WITH DIFF 2021-02-18 13:35:00 Singer [facility] D-DIMER 2021-02-18 13:35:00 Singer [facility] ADC,CLC OR LCC ONLY - 2021-02-18 13:35:00 Singer [facility] INFLUENZA A & B DIRECT Medical B ranch ANTIGEN N-TERMINAL PRO-BNP 2021-02-18 13:35:00 Johan Porras [facility] Medical Branch COVID-19 (ID NOW RAPID 2021-02-18 13:35:00 Johan Porras [facility] TESTING) Medical Branch CONSENT/REFUSAL FOR 2021-02-18 13:07:47 Doctor Unassigned, No [facility]REAT[facility] Name Medical Branch XR CHEST 1 VW 2021-01-24 14:27:39 Singer [facility] COMP. METABOLIC PANEL 2021-01-24 14:22:00 Johan Porras [facility] ([id number]) Medical Branch CBC WITH DIFF 2021-01-24 14:22:00 Singer [facility] URINALYSIS 2021-01-24 14:22:00 Singer [facility] COVID-19 (ID NOW RAPID 2021-01-24 13:30:00 [facility] Medical Branch NOTICE OF PRIVACY 2021-01-24 13:21:27 Doctor Unassigned, No [facility] Branch CONSENT/REFUSAL FOR 2021-01-24 13:20:24 Doctor Unassigned, No [facility] [place] DIAGNOSIS AND TREATMENT Name Medical Branch LIPASE 2020-12-07 13:44:00 Jennifer Shea [facility] COMP. METABOLIC PANEL 2020-12-07 13:44:00 Jennifer Shea [facility] ([id number]) Medical Branch CBC WITH DIFF 2020-12-07 13:44:00 Jennifer Shea [facility] URINALYSIS 2020-12-07 13:44:00 Jennifer Shea [facility] ADC, CLC OR LCC ONLY - 2020-12-07 13:44:00 Jennifer Shea [facility] RSV Medical Branch COVID-19 (ID NOW RAPID 2020-12-07 13:44:00 Jennifer Shea [facility] TESTING) Medical Branch URINE DRUG (IMMUNOASSAY) 2020-12-07 13:44:00 Jennifer Shea [facility] - COMPREHENSIVE DRUG Medical Bra nch SCREEN W/O REFLEX CONSENT/REFUSAL FOR 2020-12-07 13:20:39 Doctor Unassigned, No Un [facility] DIAGNOSIS AND TREATMENT Name Medical Branch COMP. METABOLIC PANEL 2020-10-26 09:48:00 Laura Pedraza [facility] ([id number]) Medical Branch MAGNESIUM 2020-10-25 14:14:00 Alvin Baca [facility] BASIC METABOLIC PANEL 2020-10-25 14:14:00 Alvin Baca [facility] (NA, K, CL, CO2, GLUCOSE, Medica l Branch BUN, CREATININE, CA) US ABDOMEN COMPLETE 2020-10-24 23:47:12 Alvin Baca [facility] TRANSTHORACIC ECHO (TTE) 2020-10-24 20:59:43 Alvin Baca [facility] COMPLETE W/ CONTRAST Medical [facility] TROPONIN I 2020-10-24 16:13:00 Alvin Baca [facility] HB ECG ROUTINE & RHYTHM 2020-10-24 16:02:52 Alvin Baca [facility] STRIP [facility] CRITICAL CARE 2020-10-24 13:45:35 Jennifer Shea [facility] FREE T4 2020-10-24 12:50:00 Shabbir [facility] COVID-19 (ID NOW RAPID 2020-10-24 12:43:00 Jennifer Shea [facility] TESTING) Medical Branch LAB ONLY COVID 2020-10-24 12:43:00 Jennifer Shea [facility] INTERPRETATION [facility] URINE DRUG (IMMUNOASSAY) 2020-10-24 11:52:00 Johan Porras [facility] - COMPREHENSIVE DRUG Medical Bra [facility] SCREEN URINALYSIS 2020-10-24 11:52:00 Johan Porras [facility] CT CHEST PULMONARY 2020-10-24 11:46:10 Johan Porras [facility] ANGIOGRAM Medical Branch POCT GLUCOSE (AUTOMATED) 2020-10-24 11:19:[address] [facility] CREATINE KINASE 2020-10-24 11:18:00 Jennifer Shea [facility] LIPASE 2020-10-24 11:18:00 Shabbir Jennifer [facility] MAGNESIUM 2020-10-24 11:18:00 Phuong [facility] TROPONIN I 2020-10-24 11:18:00 Singer [facility] THYROID STIMULATING 2020-10-24 11:18:00 Jennifer Shea [facility] COMP. METABOLIC PANEL 2020-10-24 11:18:00 Singer [facility] ([id number]) Medical Branch ETHANOL 2020-10-24 11:18:00 Shabbir [facility] CBC WITH DIFF 2020-10-24 11:18:00 Singer [facility] PROTHROMBIN TIME / INR 2020-10-24 11:18:00 Singer [facility] D-DIMER 2020-10-24 11:18:00 Singer [facility] ACTIVATED PARTIAL 2020-10-24 11:18:00 [facility] THRFormerly [facility] N-TERMINAL PRO-BNP 2020-10-24 11:18:00 Singer Johan [facility] HB ECG ROUTINE & RHYTHM 2020-10-24 11:12:38 Singer [facility] EMERGENCY DEPARTMENT 2020-10-24 05:01:00 Doctor Unassigned, No U [facility] DOCUMENTS Name Medical Branch URINALYSIS 2020-07-28 18:29:00 Shabbir [facility] ADC / LCC - DRUG SCREEN 2020-07-28 18:29:[address] [facility] Branch TROPONIN I 2020-07-28 18:23:00 Shabbir Jennifer [facility] FREE T4 2020-07-28 18:23:00 Shabbir Jennifer [facility] THYROID STIMULATING 2020-07-28 18:23:00 Jennifer Shea [facility] HEPATIC FUNCTION PANEL 2020-07-28 18:23:00 Jennifer Shea [facility] ([id number]) (ALB,T.PRO,BILI Medical Branch T,BU/BC,ALT,AST,ALK PHOS) BASIC METABOLIC PANEL 2020-07-28 18:23:00 Jennifer Shea [facility] (NA, K, CL, CO2, GLUCOSE, Medica l Branch BUN, CREATININE, CA) CBC WITH DIFF 2020-07-28 18:23:00 Shabbir Jennifer [facility] PROTHROMBIN TIME / INR 2020-07-28 18:23:00 Jennifer Shea [facility] ACTIVATED PARTIAL 2020-07-28 18:23:00 Shabbir [facility] THRMPLAS [place] [facility] N-TERMINAL PRO-BNP 2020-07-28 18:23:00 Jennifer Shea [facility] COVID-19 (ID NOW RAPID 2020-07-28 18:23:00 Jennifer Shea [facility] TESTING) Medical Branch HB ECG ROUTINE & RHYTHM 2020-07-28 18:15:15 Jennifer Shea [facility] CONSENT/REFUSAL FOR 2020-07-28 18:07:43 [facility]igned, [facility] Name [facility] TROPONIN I 2020-06-30 15:28:00 Shabbir [facility] TROPONIN I 2020-06-30 13:36:00 [facility] BASIC METABOLIC PANEL 2020-06-30 12:02:00 Ciera Seymour [facility] (NA, K, CL, CO2, GLUCOSE, Medica l Branch BUN, CREATININE, CA) CBC WITH DIFF 2020-06-30 12:02:00 Ciera Seymour [facility] XR ANKLE <3 VW LEFT 2020-06-23 20:29:12 Shelley [facility] XR FOOT <3 VW LEFT 2020-06-23 20:29:12 Shelley Shahid [facility] NOTICE OF PRIVACY 2020-06-23 19:41:37 Doctor Unassigned, No [facility] PRACTICES Name Medical Branch CONSENT/REFUSAL FOR 2020-06-23 19:41:09 Doctor Unassigned, No [facility] Name Medical Branch HEMOGLOBIN A1C 2020-01-29 11:10:00 Lelo Pelaez [facility] LIPID PANEL 2020-01-29 11:10:00 [facility] HEPATITIS ACUTE PANEL 2020-01-29 11:10:00 [facility] GGT 2020-01-29 11:10:00 [facility] MAGNESIUM LEVEL 2020-01-29 11:10:00 [facility] HIV AG/AB COMBINATION 2020-01-29 11:10:00 [facility] XR CHEST 1 VW 2019-11-10 04:30:10 Clovis Thomas [facility] TROPONIN I 2019-11-10 04:20:00 Clovis Thomas [facility] COMP. METABOLIC PANEL 2019-11-10 04:20:00 Clovis Thomas [facility] ([id number]) [facility] CBC WITH DIFFERENTIAL 2019-11-10 04:20:00 Clovis Thomas [facility] PROTHROMBIN TIME / INR 2019-11-10 04:20:00 Clovis Thomas [facility] ACTIVATED PARTIAL 2019-11-10 04:20:00 Clovis Thomas [facility] THRFormerly [facility] EKG-12 LEAD 2019-11-10 04:19:36 Clovis Thomas [facility] COMP. METABOLIC PANEL 2019-09-29 15:23:00 Singer [facility] ([id number]) [facility] CBC WITH DIFFERENTIAL 2019-09-29 15:23:00 Singer Johan [facility] URINALYSIS 2019-09-29 15:23:00 Singer [facility] CONSENT/REFUSAL FOR 2019-09-29 14:19:48 Doctor Unassigned, No [facility] DIAGNOSIS AND TREATMENT Name Medical [place] NOTICE OF PRIVACY 2019-09-29 14:19:33 Doctor Unassigned, No Univ [facility] PRACTICES Name [facility] EKG-12 LEAD 2019-06-16 13:22:02 Shabbir [facility] LIPASE 2019-06-16 13:22:00 Shabbir [facility] TROPONIN I 2019-06-16 13:22:00 Shabbir Jennifer [facility] COMP. METABOLIC PANEL 2019-06-16 13:22:00 Jennifer Shea [facility] ([id number]) [facility] CBC WITH DIFFERENTIAL 2019-06-16 13:22:00 Jennifer Shea [facility] PROTHROMBIN TIME / INR 2019-06-16 13:22:00 Jennifer Shea [facility] ACTIVATED PARTIAL 2019-06-16 13:22:00 [facility] XR CHEST 1 VW 2019-06-15 18:27:52 Zehra [facility] MAGNESIUM 2019-06-15 18:22:00 Zehra [facility] TROPONIN I 2019-06-15 18:22:00 Zehra [facility] COMP. METABOLIC PANEL 2019-06-15 18:22:00 Shelley Shahid [facility] ([id number]) [facility] CBC WITH DIFFERENTIAL 2019-06-15 18:22:00 Zehra [facility] EKG-12 LEAD 2019-06-15 18:10:41 Zehra, [facility] NOTICE OF PRIVACY 2019-06-15 17:21:46 Doctor Unassigned, No [facility] PRACTICES Name [facility] CONSENT/REFUSAL FOR 2019-06-15 17:16:40 Doctor Unassigned, No [facility] TREATMENT Name [facility] POCT GRP A STREP 2019 16:24:00 [facility] (MOLECULAR) [facility] POCT FLU A AND B 2019 16:23:00 [facility] (MOLECULAR) [facility] NO SHOW OR MISSED 2019 16:08:34 Doctor Unassigned, No [facility] APPOINTMENT POLICY Name [facility] ACKNOWLEDGEMENT LIPASE 2019-01-24 21:38:00 Jerry Martin [facility] TROPONIN I 2019-01-24 21:38:00 Jerry Martin [facility] COMP. METABOLIC PANEL 2019-01-24 21:38:00 Jerry Martin [facility] ([id number]) Medical Branch URINALYSIS 2019-01-24 21:38:00 Jerry Martin [facility] ADC / LCC - DRUG SCREEN 2019-01-24 21:38:00 Jerry Martin [facility] TRIAGE Medical Branch CBC WITH DIFFERENTIAL 2019-01-24 21:38:00 Jerry Martin [facility] EKG-12 LEAD 2019-01-24 21:01:42 Jerry Martin [facility] CONSENT/REFUSAL FOR 2019-01-24 19:55:39 Doctor Unassigned, No [facility] TREATMENT Name Medical Branch XR ABDOMEN ACUTE SERIES 2018-12-21 23:23:19 Jeremiah Demond [facility] LIPASE 2018-12-21 22:19:00 [facility] MAGNESIUM 2018-12-21 22:19:00 Jeremiah [facility] COMP. METABOLIC PANEL 2018-12-21 22:19:00 [facility] ([id number]) [facility] CBC WITH DIFFERENTIAL 2018-12-21 22:19:00 [facility] URINALYSIS 2018-12-21 22:19:00 [facility] CONSENT/REFUSAL FOR 2018-12-21 20:57:44 Doctor Unassigned, No [facility] AND TREATMENT Name [facility] Encounters Start End Encounter Admission Attending Care Care Encounter Source Date/Time Date/Time Type Type Clinicians Facility Department ID 2021-03-12 Emergency [facility] [id number] Univers 05:38:42 ity of [facility] 2021-03-11 Emergency [facility] [id number] Univers 23:00:35 ity of [facility] 2021-03-11 Emergency [facility] [id number] Univers 11:56:05 ity of [facility] 2021-03-11 Emergency [facility] [id number] Univers 01:30:29 ity of [facility] 2021-03-10 Emergency [facility] [id number] Univers 07:20:38 ity of [facility] 2021-03-10 Emergency [facility] [id number] Univers 00:13:36 ity of [facility] 2021-03-09 Emergency [facility] [id number] Univers 23:32:17 ity of [facility] 2021-03-08 Emergency [facility] [id number] Univers 04:08:07 ity of [facility] 2021-03-08 Emergency [facility] [id number] Univers 00:53:49 ity of [facility] 2021-03-07 Emergency [facility] [id number] Univers 21:49:21 ity of [facility] 2021-11-21 2021-11-21 Emergency X LION [facility] ERT [id number] Univers 07:02:00 10:22:00 CIERA ity of [facility] 2021-11-21 2021-11-21 Emergency [facility] [id number] Univers 07:02:00 10:22:00 Ciera PATTON [id number] ity of [place] [id number] [facility] [id number] [address] 2021-11-19 2021-11-19 Outpatient X LIBRA [facility] ERIC [id number] Univers 16:02:00 18:33:00 VIC ity [facility] 2021-11-19 2021-11-19 Emergency MartinMichaelbrittany Brownlee [facility] 1.2.840. 114 [id number] Univers 16:02:00 18:33:00 Vic Smyth [id number] ity of [place] 4.2.7.2.686 [facility] [id number] [address] 2021-10-07 2021-10-07 Emergency X FATIMAH [facility] ERT [id number] Univers 21:19:00 22:45:00 JOESPH ity [facility] 2021-10-07 2021-10-07 [facility] [id number] Univers 21:19:00 22:45:00 Joesph PATTON [id number] [facility] [id number] [facility] [id number] [place] [id number] Branch 2021-09-29 2021-09-29 Emergency X BELGICA, [facility] ERT [id number] Univers 20:24:00 22:17:00 LILIANA it y [facility] 2021-09-29 2021-09-29 Emergency Belgica, [facility] [id number] Univers 20:24:00 22:17:00 Liliana PATTON [id number] ity [facility] [id number] [facility] [id number] [address] 2021-09-12 2021-09-13 Outpatient X KRISTINA [facility] ERIC [id number] Univers 08:19:00 19:45:00 JON itregine [facility] 2021-09-12 2021-09-13 Emergency Johan Porras [facility] 1.2.840. 114 [id number] Univers 08:19:00 19:45:00 Jon Acevedo [id number] ity [facility] [id number] [facility] [id number] [address] 2021-09-05 2021-09-06 Outpatient X PHUONG [facility] ERIC [id number] Univers 10:03:00 15:55:00 ALVIN regine [facility] 2021-09-05 2021-09-06 Emergency Lynn Trinidad [facility] 1.2.840 .114 [id number] Univers 10:03:00 15:55:00 Alvin Baca [id number] ity [facility] 4.2.7.2.686 [facility] [id number] [address] 2021-08-05 2021-08-07 Outpatient X PHUONG [facility] ERIC [id number] Univers 10:16:00 12:38:00 ALVIN regine [facility] 2021-08-05 2021-08-07 Emergency Raya Sue [facility] 1.2.840.1 [id number] Univers 10:16:00 12:38:00 Jon Acevedo [id number] ity of [place] Alvin OLVERAMARIA G 4.2.[address] [facility] [id number] [facility] 081 Branch 2021-07-17 2021-07-18 Emergency LOWELL, [facility] [id number] [place] 00:00:00 00:00:00 [address] 2021-07-15 2021-07-17 Emergency ER ZALDIVAR, [facility] Emergency [id number] SLE 23:45:00 12:57:00 LEONIDAS 2021-07-16 2021-07-16 Outpatient BCM [facility] [id number] [facility] 00:00:00 23:59:00 Colleezio e of Medicin e 2021-06-05 2021-06-05 Emergency [facility] [id number] Univers 09:04:00 13:12:00 JENNIFER itregine [facility] 2021-06-05 2021-06-05 Emergency [facility] [id number] Univers 09:04:00 13:12:00 Jennifer PATTON [id number] i ty of [place] 4.2.7.2.686 [facility] [id number] [address] 2021-05-27 2021-05-27 Emergency [facility]RT [id number] Univers 09:58:00 12:18:00 JENNIFER itregine of [facility] 2021-05-27 2021-05-27 Emergency [facility] [id number] Univers 09:58:00 12:18:00 Jennifer PATTON [id number] i ty [facility] 4.2.7.2.686 [facility] [id number] [facility] 084 [place] 2021-05-27 2021-05-27 Orders Doctor MCGINNIS 1.2.840.114 [id number] Univers 00:00:00 00:00:00 Only Unassigned, KAY [id number] [place] [facility] 4.2.7.2.686 Manfred [id number] [facility] 009 Branch 2021-05-04 2021-05-05 Outpatient X KRISTINA [facility] [id number] Univers 18:35:00 12:45:00 JON farley [facility] 2021-05-04 2021-05-05 Emergency Shelley Shahid [facility] 1.2.840. 114 [id number] Univers 18:35:00 12:45:00 Laura Pedraza [id number] ity of Jon AcevedoMARIA G 4.2.7.[address] [facility] [id number] [place] [address] Branch 2021-03-31 2021-03-31 Emergency [facility] [id number] Univers 08:36:00 10:17:00 CIERA miguelito [facility] 2021-03-31 2021-03-31 Emergency [facility] 1.2.840.114 [id number] Univers 08:36:00 10:17:00 Ciera PATTON [id number] ity [facility] 4.2.7.2.686 [facility] [id number] [place] [address] Branch 2021-02-18 2021-02-18 Emergency [facility] [id number] Univers 08:21:00 11:20:00 Johan Patton [id number] i ty of [place] 4.2.7.2.686 [facility] [place] [id number] [place] [address] Branch 2021-01-24 2021-01-24 Emergency [facility] [id number] Univers 08:32:00 10:23:00 Johan Patton [id number] i ty of [place] 4.2.7.2.686 [facility] [place] [id number] [place] [address] Branch 2020-12-07 2020-12-07 Emergency [facility] [id number] Univers 08:25:00 10:28:00 Jennifer Patton [id number] i ty of [place] 4.2.7.2.686 [facility] [place] [id number] [place] [address] Branch 2020-10-30 2020-10-30 Transition Nisha Aguilar 1.2.840.114 [id number] Univers 00:00:00 00:00:00 of Karley Crystaly [id number] ity of [place] 4.2.7.2.686 [facility] [id number] [facility] 403 Branch 2020-10-24 2020-10-28 [facility] Johan Porras [facility] 1.2.840.1 [id number] [facility] 06:11:00 10:50:00 Encounter Alvin Baca [id number] ity of [place] 4.2.7.2.686 [facility] [place] [id number] [facility] 080 Branch 2020-07-28 2020-07-28 Emergency [facility] [id number] 13:17:00 20:00:00 Jennifer Patton [id number] [place] 4.2.7.2.686 [place] [id number] [facility] 2020-07-28 2020-07-28 [facility] [id number] [facility] 13:17:00 20:00:00 Jennifer Patton [id number] i ty of [place] 4.2.7.2.686 [facility] [place] [facility] [id number] [place] [id number] [place] 2020-06-30 2020-06-30 Emergency [facility] 1.2.840.114 [id number] 05:26:00 10:11:00 Ciera Patton [id number] [place] 4.2.7.2.686 [place] [id number] [facility] 2020-06-30 2020-06-30 [facility] 1.2.840.114 [id number] [facility] 05:26:00 10:11:00 Ciera Patton [id number] ity of [place] 4.2.7.2.686 [facility] [place] [id number] [place] 599984 Branch 2020-06-23 2020-06-23 Emergency Shelley Shahid [facility] 1.2.840.114 [id number] 13:46:00 15:46:00 Margarita [place] [id number] [place] 4.2.7.2.686 [place] [id number] 2020-06-23 2020-06-23 Emergency Shelley Shahid [facility] 1.2.840.114 [id number] Univers 13:46:00 15:46:00 Margarita [place] [id number] i ty of [place] 4.2.7.2.686 [facility] [place] [id number] [address] 2020-01-28 2020-02-01 [facility] 1.2.840.1 [id number] Methodi 14:08:19 14:20:00 Encounter Nelly AlasJulia [id number] 3.430.2.7 Hospit a [id number] l .8 2019-11-09 2019-11-10 [facility] [id number] 23:06:12 01:26:00 Clovis Pugh [place] 350.1.13.10 [place] 4.2.7.2.686 [place] [id number] [facility] 2019-11-09 2019-11-10 [facility] [id number] [facility] 23:06:12 01:26:00 Clovis [place] 350.1.13.10 i ty of [place] 4.2.7.2.686 [facility] [place] [id number] [address] 2019-09-29 2019-09-29 [facility] [id number] 09:39:50 11:47:00 Johan Patton 350.1.13.10 [place] 4.2.7.2.686 [place] [id number] [facility] 2019-09-29 2019-09-29 Emergency [facility] [id number] [facility] 09:39:50 11:47:00 Johan [place] [id number] i ty of [place] 4.2.7.2.686 [facility] [place] [id number] [address] 2019-06-16 2019-06-16 Emergency [facility] [id number] 07:08:27 08:57:00 Joesph Patton 350.1.13.10 [place] 4.2.7.2.686 [place] [id number] [facility] 2019-06-16 2019-06-16 Emergency [facility] [id number] Univers 07:08:27 08:57:00 Joesph Patton [id number] ity of [place] 4.2.7.2.686 [facility] [place] [id number] [place] [address] Branch 2019-06-16 2019-06-16 Emergency [facility]RT [id number] Univers 07:08:27 08:57:00 JOESPH ity [facility] 2019-06-15 2019-06-15 Emergency Zehra K [facility] 1.2.840.114 [id number] 11:30:00 13:30:00 Margarita Sal 350.1.13.10 [place] 4.2.7.2.686 [place] [phone] [facility] 2019-06-15 2019-06-15 Emergency Shelley Shahid [facility] 1.2.840.114 [id number] Univers 11:30:00 13:30:00 Margarita Knightton 350.1.13.10 i ty of [place] 4.2.7.2.686 [facility] [place] [phone] [place] [address] [place] 2019-06-15 2019-06-15 Orders Doctor MCGINNIS 1.2.840.114 [id number] 00:00:00 00:00:00 Only Unassigned, KAY 350.1.13.10 [facility] 4.2.7.2.686 [id number] 009 2019-06-15 2019-06-15 Orders Doctor RAS 1.2.840.114 [id number] Univers 00:00:00 00:00:00 Only Unassigned, KAY 350.1.13.10 ity of [facility] 4.2.7.2.686 [facility] [phone] [place] [address] [place] 2019-06-06 2019-06-06 Letter Clinic, [facility] 1.2.840.114 [id number] 00:00:00 00:00:00 (Out) Neurology [facility] 350.1.13.10 [facility] 4.2.7.2.686 [id number] 092 2019-06-06 2019-06-06 Letter Clinic, [facility] UNIVERSIT 1.2.840.114 [id number] Univers 00:00:00 00:00:00 (Out) Neurology Y HEALTH 350.1.13.10 ity of [facility] 4.2.7.2.686 [place] [phone] [place] [address] [place] 2019 2019 Urgent Levon [facility] 1.2.840.114 [id number] 75 10:16:26 10:55:54 Care July [facility] 350.1.13.10 Surgical 4.2.7.2.686 Specialti [id number] [address] 2019 2019 Urgent Levon [facility] 1.2.840.114 [id number] Univers 10:16:26 10:55:54 Care Unknown, [facility] 350.1.13.10 ity of Surgical 4.2.7.2.686 Manfred as Specialti [phone] Ia dical [address] 2019 2019 Orders Doctor RAS 1.2.840.114 [id number] 00:00:00 00:00:00 Only Unassigned, KAY 350.1.13.10 [facility] 4.2.7.2.686 [id number] 009 2019 2019 Orders Doctor RAS 1.2.840.114 [id number] Univers 00:00:00 00:00:00 Only Unassigned, KAY 350.1.13.10 ity of [facility] 4.2.7.2.686 Manfred as [id number] [facility] 009 [place] 2019-05-15 2019-05-15 Emergency Ray PERSON [facility] ERT [id number] Univers 20:18:44 22:11:00 DEMOND farley of [facility] 2019-01-24 2019-01-24 Emergency Chantel [facility] 1.2.919.857 [id number] 15:49:15 22:27:00 Jerry Patton 350.1.13.10 [place] 4.2.7.2.686 [place] [phone] [facility] 2019-01-24 2019-01-24 Emergency [facility] 1.2.067.441 [id number] [facility] 15:49:15 22:27:00 Jerry Patton 350.1.13.10 i ty of [place] [address] [place] [address] [phone] [place] [address] [place] 2019-01-24 2019-01-24 Orders Doctor MCGINNIS 1.2.840.114 [id number] 00:00:00 00:00:00 Only Unassigned, KAY 350.1.13.10 [facility] .2.7.2.68 [id number] 009 2019-01-24 2019-01-24 Orders Doctor MCGINNIS 1.2.840.114 [id number] Univers 00:00:00 00:00:00 Only Unassigned, KAY 350.1.13.10 ity of [facility] 4.2.7.2.686 [facility] [id number] [place] [address] Branch 2018-12-21 2018-12-21 [facility] 1.2.778.798 [id number] 17:07:20 19:42:00 Demond Patton 350.1.13.10 [place] 4.2.7.2.686 [place] [id number] [facility] 2018-12-21 2018-12-21 [facility] 1.2.078.743 [id number] 4577 [facility] 17:07:20 19:42:00 Demond Patton 350.1.13.10 i ty of [place] [address] [place] [address] [phone] [place] [address] Branch 2018-12-21 2018-12-21 Orders Doctor MCGINNIS 1.2.840.114 [id number] 00:00:00 00:00:00 Only Unassigned, KAY 350.1.13.10 [facility] 4.2.7.2.686 [id number] 009 2018-12-21 2018-12-21 Orders Doctor RAS 1.2.840.114 [id number] Univers 00:00:00 00:00:00 Only Unassigned, KAY 350.1.13.10 ity of [place] [facility] 4.2.7.2.686 Manfred as [phone] [place] [address] Branch Results Test Description Test Time Test [...] 34.3 g/dL 31.2-35 RDW-SD (test code = 97579-0) 41.1 fL 38.5-51.6 RDW-CV (test code = 788-0) 13.1 % 12.1-15.4 PLT (test code = 777-3) See_Comment [Au tomated message] The system which ge nerated this result transmit luis reference range: 150 - 32 8 10*3/?L. The reference range was not used to interpret th is result as normal/abnormal . MPV (test code = 52379-6) 9.9 fL 9.8-13 NRBC/100 WBC (test code = See_Comment [ Automated message] The 5530919358) system which ge nerated this result transmit luis reference range: 0.0 - 10 .0 /100 WBCs. The reference r javier was not used to interpr et this result as normal/abnor mal. NRBC x10^3 (test code = See_Comment [Au tomated message] The 3795470454) system which ge nerated this result transmit luis reference range: 10*3/?L. The reference range was not u sed to interpret this result as normal/abnormal . GRAN MAT (NEUT) % (test code 61.2 % = 770-8) IMM GRAN % (test code = 0.70 % 0340163604) LYMPH % (test code = 736-9) 20.2 % MONO % (test code = 5905-5) 14.0 % EOS % (test code = 713-8) 3.3 % BASO % (test code = 706-2) 0.6 % GRAN MAT x10^3(ANC) (test 8.05 10*3/uL 1.99-6.95 H code = 9837095339) IMM GRAN x10^3 (test code = 0.09 10*3/uL 0-0.06 H 7626922516) LYMPH x10^3 (test code = 2.65 10*3/uL 1.09-3.23 731-0) MONO x10^3 (test code = 1.84 10*3/uL 0.36-1.02 H 742-7) EOS x10^3 (test code = 0.43 10*3/uL 0.06-0.53 711-2) BASO x10^3 (test code = 0.08 10*3/uL 0.01-0.09 704-7) Lab Interpretation (test Abnormal code = 10658-1) [facility] 21:53:54 Test Item Value Reference Range Interpretation Comments MAGNESIUM (test code = 4720814451) 1.4 mg/dL 1.7-2.4 L Lab Interpretation (test code = Abnormal 28064-0) [facility] METABOLIC PANEL (91815)2021-11-19 21:53:34 Test Item Value Reference Range Interpretation Comments NA (test code = 131 mmol/L 135-145 L 9011202353) K (test code = 4.3 mmol/L 3.5-5 2879855232) CL (test code = 87 mmol/L 98-108 L 0381666477) CO2 TOTAL (test code = 25 mmol/L 23-31 7908818551) AGAP (test code = 2-16 H 0227349564) BUN (test code = 25 mg/dL 7-23 H 1335820009) GLUCOSE (test code = 94 mg/dL 70-110 1346305085) CREATININE (test code = 2.10 mg/dL 0.6-1.25 H 7294181370) TOTAL BILI (test code = 1.2 mg/dL 0.1-1.1 H 5635920719) CALCIUM (test code = 10.4 mg/dL 8.6-10.6 6230681944) T PROTEIN (test code = 8.7 g/dL 6.3-8.2 H 2266750633) ALBUMIN (test code = 5.2 g/dL 3.5-5 H 6916690512) ALK PHOS (test code = 92 U/L 34-122 0240388425) ALTv (test code = 33 U/L 5-50 1742-6) AST(SGOT) (test code = 40 U/L 13-40 1354145806) eGFR (test code = mL/min/1.73m2 8514997677) TAMIKO (test code = TAMIKO) Association of [...] tests). Lab Interpretation Abnormal (test code = 18848-8) [facility]CREAT[facility] [id number] 21:53:33 Test Item Value Reference Range Interpretation Comments CK (test code = 6819030039) 267 U/L 33-194 H Lab Interpretation (test code = Abnormal 99934-1) [facility] CenterTROPONIN [id number] 02:08:36 Test Item Value Reference Interpretation Comments Range TROPONIN I (test <0.012 See_Comment [Automated code = 1054172187) message] The system which generated this result [...] biotin. Lab Interpretation Normal (test code = 60747-3) [facility] CenterETHANOL2022-05-23 01:58:14 Test Item Value Reference Range Interpretation Comments ALCOHOL (test code = 81 mg/dL 8472904687) TAMIKO (test code = TAMIKO) <10 Kjbkjwrz63-148 Toxic>100 Depression of DOOR TENDER>400 Fatalities Reported [facility]2022-05-23 01:57:54 Test Item Value Reference Range Interpretation Comments MAGNESIUM (test code = 5025131744) 1.7 mg/dL 1.7-2.4 Lab Interpretation (test code = Normal 53102-1) [facility]. METABOLIC PANEL (42735)2021-09-30 01:57:34 Test Item Value Reference Range Interpretation Comments NA (test code = 141 mmol/L 135-145 1936489598) K (test code = 4.2 mmol/L 3.5-5.0 8988977662) CL (test code = 106 mmol/L 98-108 4364066433) CO2 TOTAL (test code = 22 mmol/L 23-31 L 0727833823) AGAP (test code = 2-16 6189761859) BUN (test code = 14 mg/dL 7-23 6084442553) GLUCOSE (test code = 117 mg/dL 70-110 H 9088985380) CREATININE (test code = 1.12 mg/dL 0.60-1.25 7941237236) TOTAL BILI (test code = 0.2 mg/dL 0.1-1.7 7174641942) CALCIUM (test code = 9.0 mg/dL 8.6-10.6 5640533546) T PROTEIN (test code = 7.4 g/dL 6.3-8.2 2150548299) ALBUMIN (test code = 4.5 g/dL 3.5-5.0 8099728282) ALK PHOS (test code = 65 U/L 34-122 7288116880) ALTv (test code = 17 U/L 5-50 1742-6) AST(SGOT) (test code = 21 U/L 13-40 1833494305) eGFR (test code = mL/min/1.73m2 5710931626) TAMIKO (test code = TAMIKO) Association of [...] tests). Lab Interpretation Abnormal (test code = 54025-6) [facility] CenterCREATINE [id number] 01:57:14 Test Item Value Reference Range Interpretation Comments CK (test code = 7422890118) 57 U/L 33-194 Lab Interpretation (test code = Normal 37895-2) [facility] WITH [id number] 01:46:12 Test Item Value Reference Range Interpretation Comments WBC (test code = See_Comment [Automated 2010-2) message] The sy stem which generated this [...] RDW-SD (test code = 45.1 fL 38.5-51.6 25481-9) RDW-CV (test code = 13.4 % 12.1-15.4 788-0) PLT (test code = See_Comment [Automated 777-3) message] The sy stem which generated this result transmitted reference range : 150 - 328 10*3/ ?L. The reference r javier was not used to interpret this result as normal/abnormal . MPV (test code = 9.7 fL 9.8-13.0 L 24043-2) NRBC/100 WBC (test See_Comment [Automat ed code = 1964875234) message] The system which generated this result transmitted reference range : 0.0 - 10.0 /100 WBCs. The refer ence range was not u sed to interpret th is result as normal/abnormal . NRBC x10^3 (test code <0.01 See_Comment [Auto mated = 9612415172) message] The s ystem which generated this result transmitted reference range : 10*3/?L. The reference range was not used to interpret this result as normal/abnormal . GRAN MAT (NEUT) % 45.6 % (test code = 770-8) IMM GRAN % (test code 0.40 % = 5700172271) LYMPH % (test code = 39.4 % 736-9) MONO % (test code = 8.4 % 5905-5) EOS % (test code = 5.4 % 713-8) BASO % (test code = 0.8 % 706-2) GRAN MAT x10^3(ANC) 3.51 10*3/uL 1.99-6.95 (test code = 2949225851) IMM GRAN x10^3 (test 0.03 10*3/uL 0.00-0.06 code = 5650941899) LYMPH x10^3 (test code 3.04 10*3/uL 1.09-3.23 = 731-0) MONO x10^3 (test code 0.65 10*3/uL 0.36-1.02 = 742-7) EOS x10^3 (test code = 0.42 10*3/uL 0.06-0.53 711-2) BASO x10^3 (test code 0.06 10*3/uL 0.01-0.09 = 704-7) Lab Interpretation Abnormal (test code = 19020-9) [facility] [id number] 02:03:45 Test Item Value Reference Interpretation Comments Range TROPONIN I (test 0.003 ng/mL See_Comment [Automated code = 2717434299) message] The system which generated this result [...] biotin. Lab Interpretation Normal (test code = 03004-8) [facility] [id number] 14:14:18 Test Item Value Reference Interpretation Comments Range TROPONIN I (test 0.003 ng/mL See_Comment [Automated code = 0748519879) message] The system which generated this result [...] biotin. Lab Interpretation Normal (test code = 32134-3) [facility] CenterN-TERMINAL [id number] 14:11:01 Test Item Value Reference Range Interpretation Comments NT-proBNP (test code 14 pg/mL See_Comment [Autom ated = 8857433812) message] The system which generated this result transmitted reference range : <=125. The reference range was not used to interpret this result as normal/abnormal . TAMIKO (test code = TAMIKO) Biotin has been reported to cause a negative bias, interpret results relative to patient's use of biotin. Lab Interpretation Normal (test code = 16576-6) [facility]MAG[facility]2022-05-05 14:03:57 Test Item Value Reference Range Interpretation Comments MAGNESIUM (test code = 1048879911) 1.8 mg/dL 1.7-2.4 Lab Interpretation (test code = Normal 30524-2) [facility] CenterCOMP. METABOLIC PANEL (47461)2021-09-12 14:03:37 Test Item Value Reference Range Interpretation Comments NA (test code = 140 mmol/L 135-145 1416123110) K (test code = 4.6 mmol/L 3.5-5.0 3616683372) CL (test code = 105 mmol/L 98-108 1940721354) CO2 TOTAL (test code = 25 mmol/L 23-31 2685582131) AGAP (test code = 2-16 8613179024) BUN (test code = 11 mg/dL 7-23 9785066430) GLUCOSE (test code = 111 mg/dL 70-110 H 9702659213) CREATININE (test code = 0.65 mg/dL 0.60-1.25 4588824857) TOTAL BILI (test code = 0.4 mg/dL 0.1-1.9 0908204922) CALCIUM (test code = 8.8 mg/dL 8.6-10.6 1525570478) T PROTEIN (test code = 7.7 g/dL 6.3-8.2 7132772662) ALBUMIN (test code = 4.6 g/dL 3.5-5.0 3065100509) ALK PHOS (test code = 73 U/L 34-122 6235115182) ALTv (test code = 35 U/L 5-50 1742-6) AST(SGOT) (test code = 30 U/L 13-40 9456297583) eGFR (test code = mL/min/1.73m2 5676817062) TAIMKO (test code = TAMIKO) Association of Glomerular [...] tests). Lab Interpretation Abnormal (test code = 21445-5) [facility] CenterLIPASE2022-05-05 14:03:37 Test Item Value Reference Range Interpretation Comments LIPASE (test code = 3881450238) 110 U/L 0-220 Lab Interpretation (test code = Normal 31887-0) [facility] CenterCB WITH [id number] 13:31:54 Test Item Value Reference Range Interpretation [...] RDW-SD (test code = 44.7 fL 38.5-51.6 78236-8) RDW-CV (test code = 13.3 % 12.1-15.4 788-0) PLT (test code = See_Comment [Automated 777-3) message] The sy stem which generated this result transmitted reference range : 150 - 328 10*3/ ?L. The reference r javier was not used to interpret this result as normal/abnormal . MPV (test code = 10.0 fL 9.8-13.0 91371-5) NRBC/100 WBC (test See_Comment [Automat ed code = 4014319078) message] The system which generated this result transmitted reference range : 0.0 - 10.0 /100 WBCs. The refer ence range was not u sed to interpret th is result as normal/abnormal . NRBC x10^3 (test code <0.01 See_Comment [Auto mated = 0795490324) message] The s ystem which generated this result transmitted reference range : 10*3/?L. The reference range was not used to interpret this result as normal/abnormal . GRAN MAT (NEUT) % 54.1 % (test code = 770-8) IMM GRAN % (test code 0.70 % = 3112767982) LYMPH % (test code = 26.6 % 736-9) MONO % (test code = 12.7 % 5905-5) EOS % (test code = 5.0 % 713-8) BASO % (test code = 0.9 % 706-2) GRAN MAT x10^3(ANC) 4.97 10*3/uL 1.99-6.95 (test code = 5429360944) IMM GRAN x10^3 (test 0.06 10*3/uL 0.00-0.06 code = 1910120214) LYMPH x10^3 (test code 2.44 10*3/uL 1.09-3.23 = 731-0) MONO x10^3 (test code 1.17 10*3/uL 0.36-1.02 H = 742-7) EOS x10^3 (test code = 0.46 10*3/uL 0.06-0.53 711-2) BASO x10^3 (test code 0.08 10*3/uL 0.01-0.09 = 704-7) Lab Interpretation Abnormal (test code = 60351-9) [facility] CenterTroponin [id number] 10:22:16 Test Item Value Reference Interpretation Comments Range TROPONIN I (test 0.003 ng/mL See_Comment [Automated code = 1052417769) message] The system which generated this result [...] biotin. Lab Interpretation Normal (test code = 46963-2) [facility] CenterMagnesium [id number] 10:12:18 Test Item Value Reference Range Interpretation Comments MAGNESIUM (test code = 5630193592) 1.7 mg/dL 1.7-2.4 Lab Interpretation (test code = Normal 58534-8) [facility] CenterBas[facility] Metabolic Panel (NA, K, CL, CO2, GLUCOSE, BUN, CREATININE, CA)2021-09-06 10:11:58 Test Item Value Reference Range Interpretation Comments NA (test code = 136 mmol/L 135-145 8181762693) K (test code = 3.9 mmol/L 3.5-5.0 9590232139) CL (test code = 101 mmol/L 98-108 0415704004) CO2 TOTAL (test code 27 mmol/L 23-31 = 4183636458) AGAP (test code = 2-16 6171540756) BUN (test code = 14 mg/dL 7-23 6259154058) GLUCOSE (test code = 95 mg/dL 70-110 5309530442) CREATININE (test code 0.81 mg/dL 0.60-1.25 = 5248172122) CALCIUM (test code = 8.7 mg/dL 8.6-10.6 9634368647) eGFR (test code = mL/min/1.73m2 3426066840) TAMIKO (test code = TAMIKO) Association of [...] or abnormalities in imaging tests). [facility] CenterGLYCOSYLATED HEMOGLOBIN (A1C)2021-09-05 23:56:19 Test Item Value Reference Range Interpretation Comments HGB A1C (test code = 5.6 % 4.0-5.7 4548-4) TAMIKO (test code = TAMIKO) Reference RangesNormal: <5.7%Prediabetes: 5.7 - 6.4%Diabetes: > 6.5% Lab Interpretation (test Normal code = 78775-7) [facility] CenterTroponin [id number] 23:52:47 Test Item Value Reference Interpretation Comments Range TROPONIN I (test 0.003 ng/mL See_Comment [Automated code = 3365682487) message] The system which generated this result [...] biotin. Lab Interpretation Normal (test code = 08970-3) [facility] CenterLIPID PANEL (11054)(TOTAL CHOLESTEROL, TRIGLYCERIDES, HDL)2021-09-05 23:08:35 Test Item Value Reference Range Interpretation Comments CHOL (test code = 148 mg/dL 120-200 5864761054) HDL (test code = 39 mg/dL >40 L 7617397916) HDLC RATIO (test code = See_Comment [Au tomated message] 6288620068) The system YouTube generated this result transmit luis reference range : <=5.0. The refe rence range was not u sed to interpret th is result as normal/abnormal . TRIG (test code = 150 mg/dL 30-170 2550265534) LDL CHOL (test code = 79 mg/dL See_Comment [Auto mated message] 17045-8) The system YouTube generated this result transmit luis reference range : <=160. The refe rence range was not u sed to interpret th is result as normal/abnormal . VLDL (test code = 30 mg/dL 5-60 1019318713) Lab Interpretation (test Abnormal code = 39748-5) [facility] CenterTransthoracic echo (TTE)2021-09-05 21:38:59 Test Item Value Reference Range Interpretation Comments LVIDD (test code = 4.60 cm 7268432046) IVS (test code = 1.48 cm 3128492535) Interventricular Septum 1.48 cm Diastolic Thickness by 2D (test code = 3623567) LVPWD (test code = 1.25 cm 5826154925) PW (test code = 1.25 cm 0.6-1.0 7799265606) EF(Teich) (test code = 59.40 % 6214139148) LVIDS (test code = 3.20 cm 4162623312) FS (test code = 31 % 9757957235) EF - 2D (test code = 59.40 % 01598117) LVOT diameter (test code 2.06 cm = 9720290657) ACS (test code = 1.98 cm 9786369848) Ao root annulus (test 2.9 cm code = 6734308415) Ao root diam (test code = 2.90 cm 6863674986) Aortic root (test code = 2.9 cm 6985217042) LA size (test code = 3.9 cm 8961533018) Radiology Study observation (narrative) (test code = 71196-7) TAMIKO (test code = TAMIKO) ?Left?Ventricle: Left [...] (99.8 kg) 2.17 sq meters 120/59 88 [facility] CenterEKG-12 Lead ROUTINE [id number] 17:41:17 Test Item Value Reference Range Interpretation Comments Lab Interpretation (test code = Abnormal 61404-2) [facility] CenterTROPONIN [id number] 16:19:01 Test Item Value Reference Interpretation Comments Range TROPONIN I (test 0.002 ng/mL See_Comment [Automated code = 0750816518) message] The system which generated this result [...] biotin. Lab Interpretation Normal (test code = 77851-1) [facility] CenterN-TERMINAL [id number] 16:15:43 Test Item Value Reference Range Interpretation Comments NT-proBNP (test code 17 pg/mL See_Comment [Autom ated = 8345532447) message] The system which generated this result transmitted reference range : <=125. The reference range was not used to interpret this result as normal/abnormal . TAMIKO (test code = TAMIKO) Biotin has been reported to cause a negative bias, interpret results relative to patient's use of biotin. Lab Interpretation Normal (test code = 89172-0) [facility] CenterCOMP. METABOLIC PANEL (60076)2021-09-05 16:07:19 Test Item Value Reference Range Interpretation Comments NA (test code = 141 mmol/L 135-145 5360123276) K (test code = 4.5 mmol/L 3.5-5.0 9366228002) CL (test code = 104 mmol/L 98-108 3810661117) CO2 TOTAL (test code = 23 mmol/L 23-31 0241084461) AGAP (test code = 2-16 2299105065) BUN (test code = 8 mg/dL 7-23 0279514584) GLUCOSE (test code = 127 mg/dL 70-110 H 3830825054) CREATININE (test code = 0.66 mg/dL 0.60-1.25 5161381922) TOTAL BILI (test code = 0.3 mg/dL 0.1-1.1 6351240217) CALCIUM (test code = 8.9 mg/dL 8.6-10.6 9307116584) T PROTEIN (test code = 7.7 g/dL 6.3-8.2 0539043105) ALBUMIN (test code = 4.6 g/dL 3.5-5.0 4286862625) ALK PHOS (test code = 66 U/L 34-122 4526131338) ALTv (test code = 89 U/L 5-50 H 1742-6) AST(SGOT) (test code = 72 U/L 13-40 H 4008634765) eGFR (test code = mL/min/1.73m2 7879497516) TAMIKO (test code = TAMIKO) Association of [...] tests). Lab Interpretation Abnormal (test code = 23266-8) [facility] CenterLIPASE2022-04-28 16:06:59 Test Item Value Reference Range Interpretation Comments LIPASE (test code = 9490653312) 83 U/L 0-220 Lab Interpretation (test code = Normal 27321-7) [facility] CenterD-[id number] 16:05:17 Test Item Value Reference Interpretation Comments Range D-DIMER (test code = <0.27 See_Comment [Autom ated 7331392346) message] The system which generated this result [...] diagnosis. Lab Interpretation Normal (test code = 11912-0) [facility] WITH [id number] 15:45:55 Test Item Value Reference Range Interpretation Comments WBC (test code = See_Comment [Automated message] 6690-2) The system YouTube generated this result transmitted ref erence range: 4.20 - 1 0.70 10*3/?L. The re ference range was not u sed to interpret this result as normal/abnor mal. RBC (test code = See_Comment [Automated message] 789-8) The system YouTube generated this result transmitted ref erence range: [...] RDW-SD (test code 46.4 fL 38.5-51.6 = 10045-6) RDW-CV (test code 13.7 % 12.1-15.4 = 788-0) PLT (test code = See_Comment [Automated message] 777-3) The system YouTube generated this result transmitted ref erence range: 150 - 32 8 10*3/?L. The re ference range was not u sed to interpret this result as normal/abnor mal. MPV (test code = 10.3 fL 9.8-13.0 41902-0) NRBC/100 WBC (test See_Comment [Automat ed message] code = 4513797693) The syste m which generated this result transmitted ref erence range: 0.0 - 10 .0 /100 WBCs. The refer ence range was not u sed to interpret this result as normal/abnor mal. NRBC x10^3 (test <0.01 See_Comment [Automated message] code = 8401567772) The syste m which generated this result transmitted ref erence range: 10*3/?L. The reference range was not used to interpr et this result as normal/abnormal . GRAN MAT (NEUT) % 49.4 % (test code = 770-8) IMM GRAN % (test 0.20 % code = 9787106893) LYMPH % (test code 34.1 % = 736-9) MONO % (test code 10.4 % = 5905-5) EOS % (test code = 4.7 % 713-8) BASO % (test code 1.2 % = 706-2) GRAN MAT 2.97 10*3/uL 1.99-6.95 x10^3(ANC) (test code = 6901728398) IMM GRAN x10^3 <0.03 0.00-0.06 (test code = 4669204773) LYMPH x10^3 (test 2.04 10*3/uL 1.09-3.23 code = 731-0) MONO x10^3 (test 0.62 10*3/uL 0.36-1.02 code = 742-7) EOS x10^3 (test 0.28 10*3/uL 0.06-0.53 code = 711-2) BASO x10^3 (test 0.07 10*3/uL 0.01-0.09 code = 704-7) [facility] 21:59:45 Test Item Value Reference Range Interpretation Comments LVIDD (test code = 4.40 cm [id number]) IVS (test code = 1.50 cm 2292588642) Interventricular Septum 1.50 cm Diastolic Thickness by 2D (test code = 2402120) LVPWD (test code = 1.46 cm 0648878794) PW (test code = 1.46 cm 0.6-1.7 0165192399) EF(Teich) (test code = 56.70 % 5405843548) LVIDS (test code = 3.10 cm 7719378680) FS (test code = 30 % 2306620585) EF - 2D (test code = 56.70 % 46887982) LVOT diameter (test code 2.19 cm = 2194441752) ACS (test code = 2.16 cm 9528277549) Ao root annulus (test 3.5 cm code = 5989460488) Ao root diam (test code = 3.50 cm 9649324393) Aortic root (test code = 3.5 cm 0840435135) LA size (test code = 3.4 cm 6467522941) E wave decelartion time 0.14 s (test code = 1993827556) MV Peak E Scott (test code 83.6 cm/s = 8818296461) MV Peak A Scott (test code 59.0 cm/s = 7373702595) E/A ratio (test code = ratio 1944076706) MR max PG (test code = 90.10 mm[Hg] 5350016370) MR max scott (test code = 474.50 cm/s 0772177409) Mr max scott (test code = 474.5 m/s 9615248233) MV Prop V (test code = 70.20 cm/s 5483937654) Tapse (test code = 2.44 cm 4117541789) TR Peak Scott (test code = 238.4 cm/s 1789553975) Triscuspid Valve mmHg Regurgitation Peak Gradient (test code = 4138506821) LVOT stroke volume (test 78.90 cm3 code = 6561331661) LVOT peak scott (test code 99.0 cm/s = 2365970415) LVOT mn grad (test code = mmHg 0579529364) AV LVOT peak gradient mmHg (test code = 9454916292) LVOT peak VTI (test code 21.0 cm = 1802907032) LV V1 mean (test code = 62.40 cm/s 0049499431) Aortic valve mean 78.6 cm/s velocity (test code = 4899056810) Ao peak scott (test code = 127.2 cm/s 3615999427) Ao VTI (test code = 23.2 cm 9370324795) AV area by cont VTI (test 3.4 cm2 code = 9956403782) AV area peak scott (test 2.9 cm2 code = 8104811415) Ao max PG (test code = 6.50 mm[Hg] 6878226307) AV peak gradient (test mmHg code = 3658717503) AV valve area (test code 3.40 cm2 = 3087248330) AV mean gradient (test mmHg code = 8104130329) Radiology Study observation (narrative) (test code = 94568-2) TAMIKO (test code = TAMIKO) ?Left?Ventricle: Left [...] (104.3 kg) 2.22 sq meters 150/92 71 [facility]TR[facility] [id number] 15:14:07 Test Item Value Reference Interpretation Comments Range TROPONIN I (test 0.004 ng/mL See_Comment [Automated code = 2084010046) message] The system which generated this result [...] biotin. Lab Interpretation Normal (test code = 31359-9) [facility] CenterLIPID PANEL (98335)(TOTAL CHOLESTEROL, TRIGLYCERIDES, HDL)2021-08-06 14:47:02 Test Item Value Reference Range Interpretation Comments CHOL (test code = 211 mg/dL 120-200 H 7628209918) HDL (test code = 31 mg/dL >40 L 6196616800) HDLC RATIO (test code = See_Comment H [Au tomated message] 1715233391) The system YouTube generated this result transmit luis reference range : <=5.0. The refe rence range was not u sed to interpret th is result as normal/abnormal . TRIG (test code = 186 mg/dL 30-170 H 9788478033) LDL CHOL (test code = 143 mg/dL See_Comment [Auto mated message] 33789-5) The system [employer] generated this result transmit luis reference range : <=160. The refe rence range was not u sed to interpret th is result as normal/abnormal . VLDL (test code = 37 mg/dL 5-60 7496724582) Lab Interpretation (test Abnormal code = 12950-2) [facility] with [id number] 11:04:14 Test Item Value Reference Range Interpretation Comments WBC (test code = See_Comment [Automated message] 6690-2) The system YouTube generated this result transmitted ref erence range: 4.20 - 1 0.70 10*3/?L. The re ference range was not u sed to interpret this result as normal/abnor mal. RBC (test code = See_Comment [Automated message] 789-8) The system YouTube generated this result transmitted ref erence range: [...] RDW-SD (test code 46.8 fL 38.5-51.6 = 36093-1) RDW-CV (test code 13.7 % 12.1-15.4 = 788-0) PLT (test code = See_Comment [Automated message] 777-3) The system [employer] generated this result transmitted ref erence range: 150 - 32 8 10*3/?L. The re ference range was not u sed to interpret this result as normal/abnor mal. MPV (test code = 11.1 fL 9.8-13.0 77015-0) NRBC/100 WBC (test See_Comment [Automat ed message] code = 1534370347) The [employer] which generated this result transmitted ref erence range: 0.0 - 10 .0 /100 WBCs. The refer ence range was not u sed to interpret this result as normal/abnor mal. NRBC x10^3 (test <0.01 See_Comment [Automated message] code = 5987452032) The syste m which generated this result transmitted ref erence range: 10*3/?L. The reference range was not used to interpr et this result as normal/abnormal . GRAN MAT (NEUT) % 51.5 % (test code = 770-8) IMM GRAN % (test 0.30 % code = 3476105066) LYMPH % (test code 29.7 % = 736-9) MONO % (test code 12.9 % = 5905-5) EOS % (test code = 4.6 % 713-8) BASO % (test code 1.0 % = 706-2) GRAN MAT 3.66 10*3/uL 1.99-6.95 x10^3(ANC) (test code = 7555912040) IMM GRAN x10^3 <0.03 0.00-0.06 (test code = 3570358118) LYMPH x10^3 (test 2.11 10*3/uL 1.09-3.23 code = 731-0) MONO x10^3 (test 0.92 10*3/uL 0.36-1.02 code = 742-7) EOS x10^3 (test 0.33 10*3/uL 0.06-0.53 code = 711-2) BASO x10^3 (test 0.07 10*3/uL 0.01-0.09 code = 704-7) [facility] CenterBas[facility] Met[facility] (NA, K, CL, CO2, GLUCOSE, BUN, CREATININE, CA)2021-08-06 11:02:13 Test Item Value Reference Range Interpretation Comments NA (test code = 138 mmol/L 135-145 6396589555) K (test code = 3.7 mmol/L 3.5-5.0 5166055127) CL (test code = 102 mmol/L 98-108 6401329964) CO2 TOTAL (test code = 30 mmol/L 23-31 8834550386) AGAP (test code = 2-16 1364505998) BUN (test code = 12 mg/dL 7-23 7381084284) GLUCOSE (test code = 91 mg/dL 70-110 5913394286) CREATININE (test code = 0.74 mg/dL 0.60-1.25 0864562030) CALCIUM (test code = 8.4 mg/dL 8.6-10.6 L 2025735940) eGFR (test code = mL/min/1.73m2 1345591317) TAMIKO (test code = TAMIKO) Association of [...] tests). Lab Interpretation Abnormal (test code = 36610-2) [facility] CenterMagnesium [id number] 11:02:13 Test Item Value Reference Range Interpretation Comments MAGNESIUM (test code = 8450863417) 1.6 mg/dL 1.7-2.4 L Lab Interpretation (test code = Abnormal 59138-2) [facility] CenterPhosphorus Ukkyg6338-98-07 05:25:31 Test Item Value Reference Range Interpretation Comments PHOSPHORUS (test code = 0834197975) 3.6 mg/dL 2.5-5.0 Lab Interpretation (test code = Normal 52363-4) [facility] [id number] 01:47:25 Test Item Value Reference Interpretation Comments Range TROPONIN I (test 0.004 ng/mL See_Comment [Automated code = 7556635435) message] The system which generated this result [...] biotin. Lab Interpretation Normal (test code = 86970-3) [facility] CenterD-TVFMS9625-60-17 01:13:57 Test Item Value Reference Interpretation Comments Range D-DIMER (test code = See_Comment H [Autom ated 6166996212) message] The system which generated this result [...] diagnosis. Lab Interpretation Abnormal (test code = 51453-5) [facility] [id number] 18:20:26 Test Item Value Reference Interpretation Comments Range TROPONIN I (test 0.003 ng/mL See_Comment [Automated code = 4338149448) message] The system which generated this result [...] biotin. Lab Interpretation Normal (test code = 32926-5) [facility] CenterN-TERMINAL TFM-[id number] 18:17:04 Test Item Value Reference Range Interpretation Comments NT-proBNP (test code 16 pg/mL See_Comment [Autom ated = 4600000215) message] The system which generated this result transmitted reference range : <=125. The reference range was not used to interpret this result as normal/abnormal . TAMIKO (test code = TAMIKO) Biotin has been reported to cause a negative bias, interpret results relative to patient's use of biotin. Lab Interpretation Normal (test code = 45149-4) [facility] CenterMAGNESIUM2022-03-28 18:09:02 Test Item Value Reference Range Interpretation Comments MAGNESIUM (test code = 1685996643) 1.9 mg/dL 1.7-2.4 Lab Interpretation (test code = Normal 39942-7) [facility] CenterCOMP. METABOLIC PANEL (15264)2021-08-05 18:08:42 Test Item Value Reference Range Interpretation Comments NA (test code = 149 mmol/L 135-145 H 9909981104) K (test code = 4.3 mmol/L 3.5-5.0 4659240612) CL (test code = 110 mmol/L 98-108 H 9536134076) CO2 TOTAL (test code = 27 mmol/L 23-31 8965465242) AGAP (test code = 2-16 2468471618) BUN (test code = 4 mg/dL 7-23 L 8406799017) GLUCOSE (test code = 121 mg/dL 70-110 H 2380050993) CREATININE (test code = 0.74 mg/dL 0.60-1.25 8728053613) TOTAL BILI (test code = 0.4 mg/dL 0.1-1.8 9606498384) CALCIUM (test code = 8.9 mg/dL 8.6-10.6 8417462749) T PROTEIN (test code = 7.5 g/dL 6.3-8.2 5451124113) ALBUMIN (test code = 4.4 g/dL 3.5-5.0 6999668640) ALK PHOS (test code = 68 U/L 34-122 4642337155) ALTv (test code = 20 U/L 5-50 1742-6) AST(SGOT) (test code = 31 U/L 13-40 3848807791) eGFR (test code = mL/min/1.73m2 8248847165) TAMIKO (test code = TAMIKO) Association of [...] tests). Lab Interpretation Abnormal (test code = 76498-0) [facility] WITH [id number] 17:49:58 Test Item Value Reference Range Interpretation Comments WBC (test code = See_Comment [Automated 0790-2) message] The sy stem which generated this [...] RDW-SD (test code = 46.6 fL 38.5-51.6 39931-5) RDW-CV (test code = 13.7 % 12.1-15.4 788-0) PLT (test code = See_Comment H [Automated 777-3) message] The sy stem which generated this result transmitted reference range : 150 - 328 10*3/ ?L. The reference r javier was not used to interpret this result as normal/abnormal . MPV (test code = 10.0 fL 9.8-13.0 14728-1) NRBC/100 WBC (test See_Comment [Automat ed code = 8015627745) message] The system which generated this result transmitted reference range : 0.0 - 10.0 /100 WBCs. The refer ence range was not u sed to interpret th is result as normal/abnormal . NRBC x10^3 (test code <0.01 See_Comment [Auto mated = 5517688583) message] The s ystem which generated this result transmitted reference range : 10*3/?L. The reference range was not used to interpret this result as normal/abnormal . GRAN MAT (NEUT) % 45.8 % (test code = 770-8) IMM GRAN % (test code 0.40 % = 4191523838) LYMPH % (test code = 41.7 % 736-9) MONO % (test code = 6.6 % 5905-5) EOS % (test code = 4.8 % 713-8) BASO % (test code = 0.7 % 706-2) GRAN MAT x10^3(ANC) 3.68 10*3/uL 1.99-6.95 (test code = 5846583637) IMM GRAN x10^3 (test 0.03 10*3/uL 0.00-0.06 code = 1646893951) LYMPH x10^3 (test code 3.36 10*3/uL 1.09-3.23 H = 731-0) MONO x10^3 (test code 0.53 10*3/uL 0.36-1.02 = 742-7) EOS x10^3 (test code = 0.39 10*3/uL 0.06-0.53 711-2) BASO x10^3 (test code 0.06 10*3/uL 0.01-0.09 = 704-7) Lab Interpretation Abnormal (test code = 63903-7) [facility] CenterSARS-CoV-2 (COVID-19) RNA [Presence] in Respiratory specimen by PHILIP with probe [id number] 22:29:39 Test Item Value Reference Range Interpretation Comments SARS-CoV-2 (COVID-19) RNA Not detected [Presence] in Respiratory specimen by PHILIP with probe detection (test code = 79485-1) Whether patient is employed in a Unknown healthcare setting (test code = 42789-2) Whether the patient has symptoms Unknown related to condition of interest (test code = 76129-4) Whether the patient was Unknown hospitalized for condition of interest (test code = 96884-0) Whether the patient was admitted Unknown to intensive care unit (ICU) for condition of interest (test code = 03205-6) Whether patient resides in a Unknown congregate care setting (test code = 20099-2) status (test code = Unknown 81212-4) Date and time of symptom onset Unknown (test code = 01986-1) [id number] 04:33:29 Test Item Value Reference Range Interpretation Comments ETHANOL (BEAKER) 170 mg/dL See_Comment H [Automated message] The (test code = 400) system [employer] generated this result tra nsmitted reference range : <=10. The reference r javier was not used to int erpret this result as normal/abnormal . [employer] ID - CHARITO WSARS-COV2/RT-PCR ([facility])2021-07-16 01:11:14 Test Item Value Reference Range Interpretation Comments SARS-COV2/RT-PCR Negative Negative The SARS-Co V-2 target (test code = nucleic acids a re not 4614703) detected in thi s specimen. Negative result [...] revoked sooner. Fact Sheet for Healthcare Providers: https://www.[employer]/Documents/Xpert%20Xpress%20SARS%20CoV-2/Fact%20Sheets/302-3802%20SARS-COV -2%20HEALTHCARE%20PROVIDERS%20FACT%20SHEET.pdf Fact Sheet for Healthcare Patients: https://www.[employer]/Documents/Xpert %20Xpress%20SARS%20CoV-2/Fact%20Sheets/302-3801%18LCHX-KFX-4%20PATIENT%20FACT%20 SHEET.pdfCT, BRAIN, WITHOUT IV [id number] 01:07:00Unlisted Reason for Exam - Click Yes and Enter Reason Below->No [facility] 1985 Sex: MFINAL [...] Verified Date/Time: 07/16/2021 01:07:39 RAPID DRUG SCREEN, [id number] 00:50:29 Test Item Value Reference Range Interpretation [...] 300 ng/mLCannabinoid 50 ng/mLBenzodiazepine 300 ng/mLTricyclic 1000 ng/hVEyvrcajdddo794 ng/mLPhencyclidine 25 ng/mLAmphetamine 1000 ng/mLOpiate 300 ng/mLMethadone 300 ng/mLThis assay provides an unconfirmed qualitative test result for the clinical management of patients in emergency situations. Chain of custody not maintained. Some ykig-xff-vsevsmk medications, as well as adulterants, may cause inaccurate results. Clinical correlation should be applied. A more comprehensive drug screen or confirmation of a detected drug may be performed uponrequest.RAD, CHEST, 1 VIEW, NON [id number] 00:40:00Reason for exam:->SUICIDALShould this be performed at the bedside?->Yes [facility] : 1985 Sex: MFINAL REPORT [...] I (test code = The system which 7762217) generated this result transmitted ref erence range: <=53. Th e reference range was not used to interpr et this result as normal/abnormal . The High-Sensitivity Troponin I assay is performed on Siemens triptapllMaestro IM Analyzer. Results of this assay should always be interpreted in conjunction with the patient's medical history, clinical presentation, and other findings.B-TYPE NATRIURETIC FACTOR (BNP)2021-07-16 00:39:09 Test Item Value Reference Range Interpretation Comments B-TYPE NATRIURETIC PEPTIDE (BEAKER) 15 pg/mL 0-100 (test code = 700) BASIC METABOLIC [id number] 00:38:59 Test Item Value Reference Range Interpretation [...] ESTIMATED GFR. CBC W/PLT COUNT & AUTO [id number] 00:19:15 Test Item Value Reference Range Interpretation [...] PERCENT (BEAKER) (test code = 2801) TROPONIN [id number] 18:15:07 Test Item Value Reference Interpretation Comments Range TROPONIN I (test 0.007 ng/mL See_Comment [Automated code = 0554687833) message] The system which generated this result [...] biotin. Lab Interpretation Normal (test code = 10387-9) [facility]. METABOLIC PANEL (59143)2021-06-05 15:49:57 Test Item Value Reference Range Interpretation Comments NA (test code = 132 mmol/L 135-145 L 6218214526) K (test code = 4.3 mmol/L 3.5-5.0 2082636492) CL (test code = 95 mmol/L 98-108 L 5172186721) CO2 TOTAL (test code = 16 mmol/L 23-31 L 8966042448) AGAP (test code = 2-16 H 7913424383) BUN (test code = 34 mg/dL 7-23 H 1565669465) GLUCOSE (test code = 80 mg/dL 70-110 6661338958) CREATININE (test code = 1.66 mg/dL 0.60-1.25 H 4303585950) TOTAL BILI (test code = 1.1 mg/dL 0.1-1.1 1509730816) CALCIUM (test code = 9.0 mg/dL 8.6-10.6 4537984841) T PROTEIN (test code = 8.1 g/dL 6.3-8.2 5546165301) ALBUMIN (test code = 5.0 g/dL 3.5-5.0 7282418694) ALK PHOS (test code = 92 U/L 34-122 6102361226) ALTv (test code = 50 U/L 5-50 1742-6) AST(SGOT) (test code = 68 U/L 13-40 H 3265306244) eGFR (test code = mL/min/1.73m2 5249982528) TAMIKO (test code = TAMIKO) Association of [...] tests). Lab Interpretation Abnormal (test code = 06399-7) [facility] CenterLOGAN [id number] 15:49:11 Test Item Value Reference Interpretation Comments Range TROPONIN I (test 0.010 ng/mL See_Comment [Automated code = 1717037275) message] The system which generated this result [...] biotin. Lab Interpretation Normal (test code = 77672-3) [facility] CenterLIPASE, [id number] 15:37:50 Test Item Value Reference Range Interpretation Comments LIPASE (test code = 8421999461) 233 U/L 0-220 H Lab Interpretation (test code = Abnormal 59172-9) [facility] CenteraPTT2022-01-26 15:31:46 Test Item Value Reference Range Interpretation Comments APTT Patient (test See_Comment [Automat ed code = 3173-2) message] The system which generated this result transmitted reference range : 23 - 38 Seconds . The reference range was not used to interpr et this result as normal/abnormal . TAMIKO (test code = TAMIKO) The [facility] patient population mean normal value for aPTT is 30 seconds. Lab Interpretation Normal (test code = 27997-3) [facility] CenterPROTHROMBIN TIME / [id number] 15:29:45 Test Item Value Reference Range Interpretation [...] tions. Lab Interpretation (test Normal code = 44820-2) [facility] WITH [id number] 15:28:44 Test Item Value Reference Range Interpretation Comments WBC (test code = See_Comment H [Automated 1190-2) message] The sy stem which generated this [...] RDW-SD (test code = 42.5 fL 38.5-51.6 13464-5) RDW-CV (test code = 13.0 % 12.1-15.4 788-0) PLT (test code = See_Comment [Automated 777-3) message] The sy stem which generated this result transmitted reference range : 150 - 328 10*3/ ?L. The reference r javier was not used to interpret this result as normal/abnormal . MPV (test code = 10.2 fL 9.8-13.0 93517-1) NRBC/100 WBC (test See_Comment [Automat ed code = 7428169182) message] The system which generated this result transmitted reference range : 0.0 - 10.0 /100 WBCs. The refer ence range was not u sed to interpret th is result as normal/abnormal . NRBC x10^3 (test code <0.01 See_Comment [Auto mated = 7192789819) message] The s [employer] which generated this result transmitted reference range : 10*3/?L. The reference range was not used to interpret this result as normal/abnormal . GRAN MAT (NEUT) % 77.1 % (test code = 770-8) IMM GRAN % (test code 0.90 % = 7990919663) LYMPH % (test code = 10.4 % 736-9) MONO % (test code = 10.5 % 5905-5) EOS % (test code = 0.6 % 713-8) BASO % (test code = 0.5 % 706-2) GRAN MAT x10^3(ANC) 9.01 10*3/uL 1.99-6.95 H (test code = 9365944986) IMM GRAN x10^3 (test 0.10 10*3/uL 0.00-0.06 H code = 0897953411) LYMPH x10^3 (test code 1.22 10*3/uL 1.09-3.23 = 731-0) MONO x10^3 (test code 1.23 10*3/uL 0.36-1.02 H = 742-7) EOS x10^3 (test code = 0.07 10*3/uL 0.06-0.53 711-2) BASO x10^3 (test code 0.06 10*3/uL 0.01-0.09 = 704-7) Lab Interpretation Abnormal (test code = 13444-7) [facility] CenterKUSHALANMED HEALTH CANNONALEJANDRO [id number] 16:51:13 Test Item Value Reference Interpretation Comments Range TROPONIN I (test 0.005 ng/mL See_Comment [Automated code = 3222320340) message] The system which generated this result [...] biotin. Lab Interpretation Normal (test code = 89838-4) [facility]. METABOLIC PANEL (93096)2021-05-27 16:39:35 Test Item Value Reference Range Interpretation Comments NA (test code = 137 mmol/L 135-145 6094913292) K (test code = 3.7 mmol/L 3.5-5.0 0388714411) CL (test code = 101 mmol/L 98-108 5784580075) CO2 TOTAL (test code = 27 mmol/L 23-31 1112397875) AGAP (test code = 2-16 5892512614) BUN (test code = 9 mg/dL 7-23 8283161530) GLUCOSE (test code = 108 mg/dL 70-110 1249999892) CREATININE (test code = 0.75 mg/dL 0.60-1.25 5154231990) TOTAL BILI (test code = 0.3 mg/dL 0.1-1.1 1429281245) CALCIUM (test code = 8.2 mg/dL 8.6-10.6 L 0077558471) T PROTEIN (test code = 7.0 g/dL 6.3-8.2 2948057233) ALBUMIN (test code = 4.1 g/dL 3.5-5.0 4992366805) ALK PHOS (test code = 74 U/L 34-122 7763064581) ALTv (test code = 27 U/L 5-50 1742-6) AST(SGOT) (test code = 34 U/L 13-40 6378624823) eGFR (test code = mL/min/1.73m2 2026082819) TAMIKO (test code = TAMIKO) Association of [...] tests). Lab Interpretation Abnormal (test code = 07077-5) [facility] CenterLIPASE, [id number] 16:39:14 Test Item Value Reference Range Interpretation Comments LIPASE (test code = 9250896198) 72 U/L 0-220 Lab Interpretation (test code = Normal 92030-7) [facility] CenteraPTT2022-01-17 16:34:13 Test Item Value Reference Range Interpretation Comments APTT Patient (test See_Comment [Automat ed code = 3173-2) message] The system which generated this result transmitted reference range : 23 - 38 Seconds . The reference range was not used to interpr et this result as normal/abnormal . TAMIKO (test code = TAMIKO) The [facility] patient population mean normal value for aPTT is 30 seconds. Lab Interpretation Normal (test code = 17198-6) [facility] CenterPROTHROMBIN TIME / [id number] 16:32:13 Test Item Value Reference Range Interpretation [...] tions. Lab Interpretation (test Normal code = 25388-0) [facility] WITH [id number] 16:21:51 Test Item Value Reference Range Interpretation Comments WBC (test code = See_Comment [Automated message] 6690-2) The system [employer] generated this result transmitted ref erence range: 4.20 - 1 0.70 10*3/?L. The re ference range was not u sed to interpret this result as normal/abnor mal. RBC (test code = See_Comment [Automated message] 459-8) The system [employer] generated this result transmitted ref erence range: [...] RDW-SD (test code 42.2 fL 38.5-51.6 = 36174-4) RDW-CV (test code 12.7 % 12.1-15.4 = 788-0) PLT (test code = See_Comment [Automated message] 677-3) The system [employer] generated this result transmitted ref erence range: 150 - 32 8 10*3/?L. The re ference range was not u sed to interpret this result as normal/abnor mal. MPV (test code = 9.9 fL 9.8-13.0 01159-9) NRBC/100 WBC (test See_Comment [Automat ed message] code = 0757379396) The [employer] which generated this result transmitted ref erence range: 0.0 - 10 .0 /100 WBCs. The refer ence range was not u sed to interpret this result as normal/abnor mal. NRBC x10^3 (test <0.01 See_Comment [Automated message] code = 0319376071) The syste m which generated this result transmitted ref erence range: 10*3/?L. The reference range was not used to interpr et this result as normal/abnormal . GRAN MAT (NEUT) % 53.0 % (test code = 770-8) IMM GRAN % (test 0.30 % code = 2026835070) LYMPH % (test code 29.5 % = 736-9) MONO % (test code 12.3 % = 5905-5) EOS % (test code = 4.1 % 713-8) BASO % (test code 0.8 % = 706-2) GRAN MAT 3.23 10*3/uL 1.99-6.95 x10^3(ANC) (test code = 5879530817) IMM GRAN x10^3 <0.03 0.00-0.06 (test code = 1191104277) LYMPH x10^3 (test 1.80 10*3/uL 1.09-3.23 code = 731-0) MONO x10^3 (test 0.75 10*3/uL 0.36-1.02 code = 742-7) EOS x10^3 (test 0.25 10*3/uL 0.06-0.53 code = 711-2) BASO x10^3 (test 0.05 10*3/uL 0.01-0.09 code = 704-7) [facility] CenterPROCALCITONIN2021-12-26 18:33:47 Test Item Value Reference Range Interpretation Comments Procalcitonin (test 0.02 ng/mL <0.07 code = 2459307583) TAMIKO (test code = TAMIKO) INTERPRETATION OF [...] lung abscess/empyema. For further information please refer to:[email or web address] Lab Interpretation Normal (test code = 82487-4) [facility] [id number] 13:20:01 Test Item Value Reference Interpretation Comments Range TROPONIN I (test 0.008 ng/mL See_Comment [Automated code = 7373926639) message] The system which generated this result [...] biotin. Lab Interpretation Normal (test code = 91709-2) [facility] [id number] 11:41:12 Test Item Value Reference Interpretation Comments Range TROPONIN I (test 0.007 ng/mL See_Comment [Automated code = 4419407389) message] The system which generated this result [...] biotin. Lab Interpretation Normal (test code = 86339-8) [facility] [id number] 11:31:13 Test Item Value Reference Range Interpretation Comments CK (test code = 3746744585) 93 U/L 33-194 Lab Interpretation (test code = Normal 76366-7) [facility] CenterTHYROID STIMULATING [id number] 10:15:06 Test Item Value Reference Range Interpretation Comments TSH (test code = See_Comment [Automated message] 5136189622) The system [employer] generated this result transmitted ref erence range: 0.45 - 4 .70 mIU/L. The refe rence range was not u sed to interpret this result as normal/abnor mal. Lab Interpretation (test Normal code = 13143-2) [facility] [id number] 09:53:45 Test Item Value Reference Range Interpretation Comments NT-proBNP (test code 175 pg/mL See_Comment H [Autom ated = 1434589790) message] The system which generated this result transmitted reference range : <=125. The reference range was not used to interpret this result as normal/abnormal . TAMIKO (test code = TAMIKO) Biotin has been reported to cause a negative bias, interpret results relative to patient's use of biotin. Lab Interpretation Abnormal (test code = 55622-7) [facility]ETHANOL2021-[facility] 09:52:20 Test Item Value Reference Range Interpretation Comments ALCOHOL (test code = <10 mg/dL 5406403779) TAMIKO (test code = TAMIKO) <10 Llvewxod10-259 Toxic>100 Depression of DOOR TENDER>400 Fatalities Reported [facility]MAGN[facility]IUM2021-12-26 09:45:24 Test Item Value Reference Range Interpretation Comments MAGNESIUM (test code = 7229293827) 1.3 mg/dL 1.7-2.4 L Lab Interpretation (test code = Abnormal 67813-9) [facility] CenterLIPID PANEL (81649)(TOTAL CHOLESTEROL, TRIGLYCERIDES, HDL)2021-05-05 09:45:24 Test Item Value Reference Range Interpretation Comments CHOL (test code = 206 mg/dL 120-200 H 0864069791) HDL (test code = 29 mg/dL >40 L 1628657892) HDLC RATIO (test code = See_Comment H [Au tomated message] 6334519338) The system YouTube generated this result transmit luis reference range : <=5.0. The refe rence range was not u sed to interpret th is result as normal/abnormal . TRIG (test code = 255 mg/dL 30-170 H 7600595765) LDL CHOL (test code = 126 mg/dL See_Comment [Auto mated message] 08328-0) The system YouTube generated this result transmit luis reference range : <=160. The refe rence range was not u sed to interpret th is result as normal/abnormal . VLDL (test code = 51 mg/dL 5-60 3475685292) Lab Interpretation (test Abnormal code = 40197-6) [facility] CenterPHOSPHORUS2021-12-26 09:45:04 Test Item Value Reference Range Interpretation Comments PHOSPHORUS (test code = 4848836625) 3.6 mg/dL 2.5-5.0 Lab Interpretation (test code = Normal 60272-1) [facility] CenterURIC [id number] 09:44:43 Test Item Value Reference Range Interpretation Comments URIC ACID (test code = 0100152510) 7.8 mg/dL 3.6-8.0 Lab Interpretation (test code = Normal 65486-0) [facility] CenterGLYCOSYLATED HEMOGLOBIN (A1C)2021-05-05 09:09:32 Test Item Value Reference Range Interpretation Comments HGB A1C (test code = 5.7 % 4.0-5.7 4548-4) TAMIKO (test code = TAMIKO) Reference RangesNormal: <5.7%Prediabetes: 5.7 - 6.4%Diabetes: > 6.5% Lab Interpretation (test Normal code = 13849-5) [facility] CenterD-[id number] 04:48:27 Test Item Value Reference Interpretation Comments Range D-DIMER (test code = <0.27 See_Comment [Autom ated 0451589711) message] The system which generated this result [...] diagnosis. Lab Interpretation Normal (test code = 01570-9) [facility] [id number] 03:29:25 Test Item Value Reference Interpretation Comments Range TROPONIN I (test 0.018 ng/mL See_Comment [Automated code = 2356502496) message] The system which generated this result [...] biotin. Lab Interpretation Normal (test code = 84891-6) [facility] [id number] 01:09:37 Test Item Value Reference Interpretation Comments Range TROPONIN I (test 0.005 ng/mL See_Comment [Automated code = 8593599332) message] The system which generated this result [...] biotin. Lab Interpretation Normal (test code = 79127-0) [facility]. METABOLIC PANEL (64535)2021-05-05 00:57:59 Test Item Value Reference Range Interpretation Comments NA (test code = 135 mmol/L 135-145 6162983661) K (test code = 3.8 mmol/L 3.5-5.0 7035140106) CL (test code = 102 mmol/L 98-108 3279782795) CO2 TOTAL (test code 23 mmol/L 23-31 = 8973988772) AGAP (test code = 2-16 3030747311) BUN (test code = 12 mg/dL 7-23 9807914083) GLUCOSE (test code = 92 mg/dL 70-110 6877005267) CREATININE (test code 0.71 mg/dL 0.60-1.25 = 9116213596) TOTAL BILI (test code 0.5 mg/dL 0.1-1.1 = 1626165070) CALCIUM (test code = 9.0 mg/dL 8.6-10.6 9645615407) T PROTEIN (test code 7.4 g/dL 6.3-8.2 = 6073442459) ALBUMIN (test code = 4.4 g/dL 3.5-5.0 7635712436) ALK PHOS (test code = 67 U/L 34-122 5831451578) ALTv (test code = 28 U/L 5-50 1742-6) AST(SGOT) (test code 32 U/L 13-40 = 7503271691) eGFR (test code = mL/min/1.73m2 1997112739) TAMIKO (test code = TAMIKO) Association of [...] or abnormalities in imaging tests). [facility] CenterLIPASE, [id number] 00:57:39 Test Item Value Reference Range Interpretation Comments LIPASE (test code = 1852509412) 65 U/L 0-220 Lab Interpretation (test code = Normal 40187-5) [facility] CenteraPTT2021-12-26 00:54:59 Test Item Value Reference Range Interpretation Comments APTT Patient (test See_Comment [Automat ed code = 3173-2) message] The system which generated this result transmitted reference range : 23 - 38 Seconds . The reference range was not used to interpr et this result as normal/abnormal . TAMIKO (test code = TAMIKO) The [facility] patient population mean normal value for aPTT is 30 seconds. Lab Interpretation Normal (test code = 05752-2) [facility] CenterPROTHROMBIN TIME / [id number] 00:52:58 Test Item Value Reference Range Interpretation [...] tions. Lab Interpretation (test Normal code = 84787-6) [facility] WITH [id number] 00:46:38 Test Item Value Reference Range Interpretation Comments WBC (test code = See_Comment [Automated 0090-2) message] The sy stem which generated this result transmitted reference range : 4.20 - 10.70 10*3/?L. The reference range was not used to interpret this result as normal/abnormal . RBC (test code = See_Comment [Automated 759-8) message] The sy stem which generated this [...] RDW-SD (test code = 41.9 fL 38.5-51.6 19964-6) RDW-CV (test code = 12.7 % 12.1-15.4 788-0) PLT (test code = See_Comment H [Automated 777-3) message] The sy stem which generated this result transmitted reference range : 150 - 328 10*3/ ?L. The reference r javier was not used to interpret this result as normal/abnormal . MPV (test code = 9.9 fL 9.8-13.0 90709-8) NRBC/100 WBC (test See_Comment [Automat ed code = 6753181157) message] The system which generated this result transmitted reference range : 0.0 - 10.0 /100 WBCs. The refer ence range was not u sed to interpret th is result as normal/abnormal . NRBC x10^3 (test code <0.01 See_Comment [Auto mated = 7577100949) message] The s [employer] which generated this result transmitted reference range : 10*3/?L. The reference range was not used to interpret this result as normal/abnormal . GRAN MAT (NEUT) % 62.3 % (test code = 770-8) IMM GRAN % (test code 0.30 % = 0210116513) LYMPH % (test code = 24.9 % 736-9) MONO % (test code = 9.9 % 5905-5) EOS % (test code = 1.6 % 713-8) BASO % (test code = 1.0 % 706-2) GRAN MAT x10^3(ANC) 5.68 10*3/uL 1.99-6.95 (test code = 6977958765) IMM GRAN x10^3 (test 0.03 10*3/uL 0.00-0.06 code = 6324164435) LYMPH x10^3 (test code 2.27 10*3/uL 1.09-3.23 = 731-0) MONO x10^3 (test code 0.90 10*3/uL 0.36-1.02 = 742-7) EOS x10^3 (test code = 0.15 10*3/uL 0.06-0.53 711-2) BASO x10^3 (test code 0.09 10*3/uL 0.01-0.09 = 704-7) Lab Interpretation Abnormal (test code = 66980-2) [id number] 14:27:27 Test Item Value Reference Interpretation Comments Range TROPONIN I (test 0.002 ng/mL See_Comment [Automated code = 0241428103) message] The system which generated this result [...] biotin. Lab Interpretation Normal (test code = 98035-9) [facility] CenterD-[id number] 14:25:35 Test Item Value Reference Interpretation Comments Range D-DIMER (test code = See_Comment [Autom ated 8730753057) message] The system which generated this result [...] diagnosis. Lab Interpretation Normal (test code = 80969-6) [facility]N-[facility]AL [id number] 14:22:27 Test Item Value Reference Range Interpretation Comments NT-proBNP (test code 29 pg/mL See_Comment [Autom ated = 1732326901) message] The system which generated this result transmitted reference range : <=125. The reference range was not used to interpret this result as normal/abnormal . TAMIKO (test code = TAMIKO) Biotin has been reported to cause a negative bias, interpret results relative to patient's use of biotin. Lab Interpretation Normal (test code = 52683-6) [facility] CenterLIPID PANEL (05858)(TOTAL CHOLESTEROL, TRIGLYCERIDES, HDL)2021-02-18 14:14:32 Test Item Value Reference Range Interpretation Comments CHOL (test code = 209 mg/dL 120-200 H 6331716436) HDL (test code = 30 mg/dL >40 L 8189829701) HDLC RATIO (test code = See_Comment H [Au tomated message] 3577781952) The system YouTube generated this result transmit luis reference range : <=5.0. The refe rence range was not u sed to interpret th is result as normal/abnormal . TRIG (test code = 143 mg/dL 30-170 6576346267) LDL CHOL (test code = 150 mg/dL See_Comment [Auto mated message] 75896-6) The system YouTube generated this result transmit luis reference range : <=160. The refe rence range was not u sed to interpret th is result as normal/abnormal . VLDL (test code = 29 mg/dL 5-60 9259333649) Lab Interpretation (test Abnormal code = 87856-5) [facility]. METABOLIC PANEL (03877)2021-02-18 14:14:11 Test Item Value Reference Range Interpretation Comments NA (test code = 139 mmol/L 135-145 4038344204) K (test code = 4.7 mmol/L 3.5-5.0 7693300803) CL (test code = 104 mmol/L 98-108 5383272414) CO2 TOTAL (test code 30 mmol/L 23-31 = 5091528529) AGAP (test code = 2-16 8483456992) BUN (test code = 12 mg/dL 7-23 1927916587) GLUCOSE (test code = 102 mg/dL 70-110 4375789133) CREATININE (test code 0.78 mg/dL 0.60-1.25 = 3964065243) TOTAL BILI (test code 0.3 mg/dL 0.1-1.1 = 2254344772) CALCIUM (test code = 9.5 mg/dL 8.6-10.6 5382774793) T PROTEIN (test code 7.4 g/dL 6.3-8.2 = 2641165919) ALBUMIN (test code = 4.3 g/dL 3.5-5.0 3804002674) ALK PHOS (test code = 61 U/L 34-122 7035671532) ALTv (test code = 27 U/L 50 1742-6) AST(SGOT) (test code 26 U/L -40 = 8322564866) eGFR (test code = mL/min/1.73m2 0491191151) TAMIKO (test code = TAMIKO) Association of [...] or abnormalities in imaging tests). [facility] CenterMAGNESIUM2021-10-11 14:14:11 Test Item Value Reference Range Interpretation Comments MAGNESIUM (test code = 8910742428) 1.8 mg/dL 1.7-2.4 Lab Interpretation (test code = Normal 67348-2) [facility] WITH [id number] 13:51:29 Test Item Value Reference Range Interpretation Comments WBC (test code = See_Comment [Automated message] 6690-2) The system [employer] generated this result transmitted ref erence range: 4.20 - 1 0.70 10*3/?L. The re ference range was not u sed to interpret this result as normal/abnor mal. RBC (test code = See_Comment [Automated message] 789-8) The system YouTube generated this result transmitted ref erence range: [...] RDW-SD (test code 43.3 fL 38.5-51.6 = 48208-6) RDW-CV (test code 13.0 % 12.1-15.4 = 788-0) PLT (test code = See_Comment [Automated message] 777-3) The system [employer] generated this result transmitted ref erence range: 150 - 32 8 10*3/?L. The re ference range was not u sed to interpret this result as normal/abnor mal. MPV (test code = 10.2 fL 9.8-13.0 24426-9) NRBC/100 WBC (test See_Comment [Automat ed message] code = 5320796598) The [employer] which generated this result transmitted ref erence range: 0.0 - 10 .0 /100 WBCs. The refer ence range was not u sed to interpret this result as normal/abnor mal. NRBC x10^3 (test <0.01 See_Comment [Automated message] code = 8355842531) The [employer] which generated this result transmitted ref erence range: 10*3/?L. The reference range was not used to interpr et this result as normal/abnormal . GRAN MAT (NEUT) % 50.8 % (test code = 770-8) IMM GRAN % (test 0.70 % code = 3410416631) LYMPH % (test code 29.1 % = 736-9) MONO % (test code 12.4 % = 5905-5) EOS % (test code = 6.2 % 713-8) BASO % (test code 0.8 % = 706-2) GRAN MAT 3.71 10*3/uL 1.99-6.95 x10^3(ANC) (test code = 6218953909) IMM GRAN x10^3 0.05 10*3/uL 0.00-0.06 (test code = 7763360315) LYMPH x10^3 (test 2.13 10*3/uL 1.09-3.23 code = 731-0) MONO x10^3 (test 0.91 10*3/uL 0.36-1.02 code = 742-7) EOS x10^3 (test 0.45 10*3/uL 0.06-0.53 code = 711-2) BASO x10^3 (test 0.06 10*3/uL 0.01-0.09 code = 704-7) [facility] CenterCOMP. METABOLIC PANEL (40338)2021-01-24 14:53:54 Test Item Value Reference Range Interpretation Comments NA (test code = 137 mmol/L 135-145 3207732628) K (test code = 4.5 mmol/L 3.5-5.0 7656357987) CL (test code = 100 mmol/L 98-108 5249964522) CO2 TOTAL (test code 29 mmol/L 23-31 = 2699425710) AGAP (test code = 2-16 9580177615) BUN (test code = 16 mg/dL 7-23 4516980383) GLUCOSE (test code = 94 mg/dL 70-110 7211494315) CREATININE (test code 0.86 mg/dL 0.60-1.25 = 0677029537) TOTAL BILI (test code 0.5 mg/dL 0.1-1.1 = 0071463837) CALCIUM (test code = 9.7 mg/dL 8.6-10.6 0113166035) T PROTEIN (test code 8.0 g/dL 6.3-8.2 = 4675446166) ALBUMIN (test code = 4.5 g/dL 3.5-5.0 9267145667) ALK PHOS (test code = 64 U/L 34-122 7526728961) ALTv (test code = 21 U/L 5-50 1742-6) AST(SGOT) (test code 37 U/L 13-40 = 5016315736) eGFR (test code = mL/min/1.73m2 8959805227) TAMIKO (test code = TAMIKO) Association of [...] or urine or abnormalities in imaging tests). [facility]. METABOLIC PANEL (19003)2021-01-24 14:53:54 Test Item Value Reference Range Interpretation Comments NA (test code = 137 mmol/L 135-145 6707957035) K (test code = 4.5 mmol/L 3.5-5.0 9494660241) CL (test code = 100 mmol/L 98-108 0658938582) CO2 TOTAL (test code 29 mmol/L 23-31 = 4453697964) AGAP (test code = 2-16 9338792232) BUN (test code = 16 mg/dL 7-23 6254915938) GLUCOSE (test code = 94 mg/dL 70-110 9794377823) CREATININE (test code 0.86 mg/dL 0.60-1.25 = 5532582145) TOTAL BILI (test code 0.5 mg/dL 0.1-1.1 = 8550924863) CALCIUM (test code = 9.7 mg/dL 8.6-10.6 4175801004) T PROTEIN (test code 8.0 g/dL 6.3-8.2 = 0663062359) ALBUMIN (test code = 4.5 g/dL 3.5-5.0 9285728661) ALK PHOS (test code = 64 U/L 34-122 5575959562) ALTv (test code = 21 U/L 5-50 1742-6) AST(SGOT) (test code 37 U/L 13-40 = 7276169906) eGFR (test code = mL/min/1.73m2 8150724774) TAMIKO (test code = TAMIKO) Association of [...] or urine or abnormalities in imaging tests). [facility] WITH [id number] 14:39:54 Test Item Value Reference Range Interpretation Comments WBC (test code = See_Comment [Automated 1990-2) message] The sy stem which generated this [...] RDW-SD (test code = 44.4 fL 38.5-51.6 20340-9) RDW-CV (test code = 13.2 % 12.1-15.4 788-0) PLT (test code = See_Comment [Automated 777-3) message] The sy stem which generated this result transmitted reference range : 150 - 328 10*3/ ?L. The reference r javier was not used to interpret this result as normal/abnormal . MPV (test code = 10.7 fL 9.8-13.0 80953-4) NRBC/100 WBC (test See_Comment [Automat ed code = 8486342115) message] The system which generated this result transmitted reference range : 0.0 - 10.0 /100 WBCs. The refer ence range was not u sed to interpret th is result as normal/abnormal . NRBC x10^3 (test code <0.01 See_Comment [Auto mated = 6059405023) message] The s ystem which generated this result transmitted reference range : 10*3/?L. The reference range was not used to interpret this result as normal/abnormal . GRAN MAT (NEUT) % 54.9 % (test code = 770-8) IMM GRAN % (test code 0.50 % = 8193837339) LYMPH % (test code = 24.0 % 736-9) MONO % (test code = 16.5 % 5905-5) EOS % (test code = 3.5 % 713-8) BASO % (test code = 0.6 % 706-2) GRAN MAT x10^3(ANC) 3.58 10*3/uL 1.99-6.95 (test code = 9445637957) IMM GRAN x10^3 (test 0.03 10*3/uL 0.00-0.06 code = 6962313577) LYMPH x10^3 (test code 1.57 10*3/uL 1.09-3.23 = 731-0) MONO x10^3 (test code 1.08 10*3/uL 0.36-1.02 H = 742-7) EOS x10^3 (test code = 0.23 10*3/uL 0.06-0.53 711-2) BASO x10^3 (test code 0.04 10*3/uL 0.01-0.09 = 704-7) Lab Interpretation Abnormal (test code = 28640-2) [facility] WITH [id number] 14:39:54 Test Item Value Reference Range Interpretation Comments WBC (test code = See_Comment [Automated 6990-2) message] The sy stem which generated this result transmitted reference range : 4.20 - 10.70 10*3/?L. The reference range was not used to interpret this result as normal/abnormal . RBC (test code = See_Comment [Automated 664-8) message] The sy stem which generated this [...] RDW-SD (test code = 44.4 fL 38.5-51.6 44811-8) RDW-CV (test code = 13.2 % 12.1-15.4 788-0) PLT (test code = See_Comment [Automated 777-3) message] The sy stem which generated this result transmitted reference range : 150 - 328 10*3/ ?L. The reference r javier was not used to interpret this result as normal/abnormal . MPV (test code = 10.7 fL 9.8-13.0 63157-2) NRBC/100 WBC (test See_Comment [Automat ed code = 9965254296) message] The system which generated this result transmitted reference range : 0.0 - 10.0 /100 WBCs. The refer ence range was not u sed to interpret th is result as normal/abnormal . NRBC x10^3 (test code <0.01 See_Comment [Auto mated = 5636513553) message] The s ystem which generated this result transmitted reference range : 10*3/?L. The reference range was not used to interpret this result as normal/abnormal . GRAN MAT (NEUT) % 54.9 % (test code = 770-8) IMM GRAN % (test code 0.50 % = 5868076104) LYMPH % (test code = 24.0 % 736-9) MONO % (test code = 16.5 % 5905-5) EOS % (test code = 3.5 % 713-8) BASO % (test code = 0.6 % 706-2) GRAN MAT x10^3(ANC) 3.58 10*3/uL 1.99-6.95 (test code = 3954649259) IMM GRAN x10^3 (test 0.03 10*3/uL 0.00-0.06 code = 8755551197) LYMPH x10^3 (test code 1.57 10*3/uL 1.09-3.23 = 731-0) MONO x10^3 (test code 1.08 10*3/uL 0.36-1.02 H = 742-7) EOS x10^3 (test code = 0.23 10*3/uL 0.06-0.53 711-2) BASO x10^3 (test code 0.04 10*3/uL 0.01-0.09 = 704-7) Lab Interpretation Abnormal (test code = 86853-9) [facility] (IMMUNOASSAY) - COMPREHENSIVE DRUG SCREEN W/O [id number] 14:38:57 Test Item Value Reference Range Interpretation Comments AMPHET (test code = Negative Negative 9180369063) CLAUDIA U (test code = Negative Negative 9402695683) BENZO U (test code = Negative Negative 6220550661) Cocaine Metabolite (test Negative Negative code = 1395498736) METHADONE (test code = Negative Negative 1773111374) OPIATES (test code = Negative Negative 0997842894) PCP (test code = Negative Negative 0113790096) THC (test code = Negative Negative 8869176951) TAMIKO (test code = TAMIKO) Urine Drug [...] testing). Lab Interpretation (test Normal code = 57777-2) [facility] CenterCOVID[facility] (ID NOW RAPID TESTING)2020-12-07 14:31:11 Test Item Value Reference Range Interpretation Comments SARS-CoV-2 Rapid ID NOW Not Detected Not Detected (test code = 04823-7) TAMIKO (test code = TAMIKO) ID NOW COVID-19 Assay is an isothermal nucleic acid amplification test intended for the qualitative detection of nucleic acid from SARS-CoV-2 viral RNA in nasopharyngeal (PAROLE AGENT) specimens. It is used under Emergency Use [...] indicated. Lab Interpretation Normal (test code = 23568-7) [facility] CenterAD OR C [id number] 14:23:50 Test Item Value Reference Range Interpretation Comments RSV Antigen (test code = 2732814075) Negative Negative Lab Interpretation (test code = Normal 25199-4) [facility] CenterURINALYSIS2021-07-30 14:10:55 Test Item Value Reference Range Interpretation Comments APPEARANCE (test code = Clear Clear 9489565171) COLOR (test code = Yellow Yellow 1213475908) PH (test code = 4.8-8.0 1128314547) SP GRAVITY (test code = 1.003-1.030 8284617985) GLU U QUAL (test code = Normal Normal 3215416367) BLOOD (test code = Negative Negative 2914858622) KETONES (test code = Negative Negative 8400444360) PROTEIN (test code = Negative Negative 2887-8) UROBILIN (test code = Normal Normal 4346971385) BILIRUBIN (test code = Negative Negative 8705096924) NITRITE (test code = Negative Negative 8076905432) LEUK GINO (test code = Negative Negative 9074808576) RBC/HPF (test code = See_Comment [Autom ated message] 5292707260) The system [employer] generated this result transmitted ref erence range: 0 - 3 HP F. The reference range was not used to int erpret this result as normal/abnormal . WBC/HPF (test code = See_Comment [Autom ated message] 1531436346) The system [employer] generated this result transmitted ref erence range: 0 - 5 HP F. The reference range was not used to int erpret this result as normal/abnormal . BACTERIA (test code = Negative Negative 2181054068) Lab Interpretation (test Normal code = 45555-7) [facility]. METABOLIC PANEL (63047)2020-12-07 14:10:04 Test Item Value Reference Range Interpretation Comments NA (test code = 142 mmol/L 135-145 2895773107) K (test code = 4.3 mmol/L 3.5-5.0 2323923251) CL (test code = 106 mmol/L 98-108 4653636340) CO2 TOTAL (test code = 23 mmol/L 23-31 0238332406) AGAP (test code = 2-16 3293804276) BUN (test code = 15 mg/dL 7-23 2262454058) GLUCOSE (test code = 94 mg/dL 70-110 1121050545) CREATININE (test code = 0.70 mg/dL 0.60-1.25 1041302133) TOTAL BILI (test code = 0.5 mg/dL 0.1-1.5 6882702756) CALCIUM (test code = 9.7 mg/dL 8.6-10.6 7309131947) T PROTEIN (test code = 8.3 g/dL 6.3-8.2 H 5996955151) ALBUMIN (test code = 4.8 g/dL 3.5-5.0 7715230818) ALK PHOS (test code = 62 U/L 34-122 4479451133) ALTv (test code = 31 U/L 5-50 1742-6) AST(SGOT) (test code = 84 U/L 13-40 H 0288572147) eGFR (test code = mL/min/1.73m2 9318426417) TAMIKO (test code = TAMIKO) Association of [...] tests). Lab Interpretation Abnormal (test code = 12355-7) [facility] CenterL[facility]2021-[facility]-30 14:09:48 Test Item Value Reference Range Interpretation Comments LIPASE (test code = 0031517819) 171 U/L 0-220 Lab Interpretation (test code = Normal 75305-2) [facility] WITH [id number] 13:59:24 Test Item Value Reference Range Interpretation Comments WBC (test code = See_Comment [Automated message] 6690-2) The system [employer] generated this result transmitted ref erence range: 4.20 - 1 0.70 10*3/?L. The re ference range was not u sed to interpret this result as normal/abnor mal. RBC (test code = See_Comment [Automated message] 789-8) The system [employer] generated this result transmitted ref erence range: [...] RDW-SD (test code 45.8 fL 38.5-51.6 = 99635-0) RDW-CV (test code 13.5 % 12.1-15.4 = 788-0) PLT (test code = See_Comment [Automated message] 777-3) The system [employer] generated this result transmitted ref erence range: 150 - 32 8 10*3/?L. The re ference range was not u sed to interpret this result as normal/abnor mal. MPV (test code = 11.0 fL 9.8-13.0 16795-4) NRBC/100 WBC (test See_Comment [Automat ed message] code = 0691985481) The syste m which generated this result transmitted ref erence range: 0.0 - 10 .0 /100 WBCs. The refer ence range was not u sed to interpret this result as normal/abnor mal. NRBC x10^3 (test <0.01 See_Comment [Automated message] code = 3857486601) The syste m which generated this result transmitted ref erence range: 10*3/?L. The reference range was not used to interpr et this result as normal/abnormal . GRAN MAT (NEUT) % 47.3 % (test code = 770-8) IMM GRAN % (test 0.20 % code = 2689523345) LYMPH % (test code 33.4 % = 736-9) MONO % (test code 13.0 % = 5905-5) EOS % (test code = 5.2 % 713-8) BASO % (test code 0.9 % = 706-2) GRAN MAT 3.08 10*3/uL 1.99-6.95 x10^3(ANC) (test code = 2807085948) IMM GRAN x10^3 <0.03 0.00-0.06 (test code = 8571004488) LYMPH x10^3 (test 2.18 10*3/uL 1.09-3.23 code = 731-0) MONO x10^3 (test 0.85 10*3/uL 0.36-1.02 code = 742-7) EOS x10^3 (test 0.34 10*3/uL 0.06-0.53 code = 711-2) BASO x10^3 (test 0.06 10*3/uL 0.01-0.09 code = 704-7) [facility] COVID [id number] 15:23:58COVID DMT InterpretationInterpretation/Recommendations: Molecular NAAT Tests for [...] COVID-19 testing the patient has had at [facility], including molecular NAAT testing (more commonly known as PCR testing and Rapid ID Now testing) and antibody testing. It does not take into account any testing that a patient has had outside of the [facility] medical record. [facility] LABORATORY SERVICESCOVID Resul [id number] Rapid ID NOW (no units) ? ? Date ? Value ? 10/24/2020 ? Not Detected ? ? ? 07/28/2020 ? Not Detected ? [facility]Un[facility] COMP. METABOLIC PANEL (73900)2020-10-26 12:44:29 Test Item Value Reference Range Interpretation Comments NA (test code = 135 mmol/L 135-145 2076639232) K (test code = 4.2 mmol/L 3.5-5.0 1122136625) CL (test code = 101 mmol/L 98-108 4231692332) CO2 TOTAL (test code = 25 mmol/L 23-31 6430043326) AGAP (test code = 2-16 3017911754) BUN (test code = 7 mg/dL 7-23 1786715148) GLUCOSE (test code = 84 mg/dL 70-110 2709061544) CREATININE (test code = 0.69 mg/dL 0.60-1.25 1969288868) TOTAL BILI (test code = 0.8 mg/dL 0.1-1.1 9524362929) CALCIUM (test code = 9.0 mg/dL 8.6-10.6 8526261738) T PROTEIN (test code = 6.3 g/dL 6.3-8.2 9416727817) ALBUMIN (test code = 3.5 g/dL 3.5-5.0 8689018474) ALK PHOS (test code = 83 U/L 34-122 8105266975) ALTv (test code = 37 U/L 5-50 1742-6) AST(SGOT) (test code = 45 U/L 13-40 H 9357752981) eGFR (test code = mL/min/1.73m2 0389003824) TAMIKO (test code = TAMIKO) Association of [...] tests). Lab Interpretation Abnormal (test code = 35502-9) [facility] CenterMAGNESIUM2021-06-17 15:46:06 Test Item Value Reference Range Interpretation Comments MAGNESIUM (test code = 4047483541) 1.4 mg/dL 1.7-2.4 L Lab Interpretation (test code = Abnormal 85020-3) [facility] CenterBASI METABOLIC PANEL (NA, K, CL, CO2, GLUCOSE, BUN, CREATININE, CA)2020-10-25 15:45:46 Test Item Value Reference Range Interpretation Comments NA (test code = 135 mmol/L 135-145 2245781829) K (test code = 3.1 mmol/L 3.5-5.0 L 8196603784) CL (test code = 106 mmol/L 98-108 6366148038) CO2 TOTAL (test code = 24 mmol/L 23-31 0923103576) AGAP (test code = 2-16 0857640697) BUN (test code = 4 mg/dL 7-23 L 3748023860) GLUCOSE (test code = 99 mg/dL 70-110 6300547593) CREATININE (test code = 0.61 mg/dL 0.60-1.25 5080436048) CALCIUM (test code = 7.4 mg/dL 8.6-10.6 L 2265767077) eGFR (test code = mL/min/1.73m2 3974330001) TAMIKO (test code = TAMIKO) Association of [...] tests). Lab Interpretation Abnormal (test code = 07520-6) [facility] ABDOMEN [id number] 23:59:57No evidence of acute sonographic abnormalities in [...] portalvenous waveform in the main portal vein. [facility] HospitalAut[facility] Now Results Inft User - 10/24/2020 7:01 PM [...] acute sonographic abnormalities in the abdomen.RL: [address] 72108021-06-16 17:24:18 Test Item Value Reference Range Interpretation Comments TROPONIN I (test 0.007 ng/mL See_Comment [Automated code = 0649149153) message] The system which generated this result [...] ? Lab Interpretation Normal (test code = 55607-4) [facility] CenterMAGNESIUM2021-06-16 14:02:13 Test Item Value Reference Range Interpretation Comments MAGNESIUM (test code = 8925507943) 1.9 mg/dL 1.7-2.4 Lab Interpretation (test code = Normal 69148-5) [facility] CenterCritical [id number] 13:45:35Jennifer Shea MD ? ? 10/24/2020 ?8:45 [...] patient's response to treatment and examination of patientUnB[facility] RockFREE [id number] 13:37:55 Test Item Value Reference Range Interpretation Comments FREE T4 (test code = See_Comment [Autom ated message] 0390588605) The system YouTube generated this result transmitted ref erence range: 0.78 - 2 .20 ng/dL:. The ref erence range was not u sed to interpret this result as normal/abnor mal. Lab Interpretation (test Normal code = 36042-8) [facility] CenterTHYROID STIMULATING [id number] 13:21:08 Test Item Value Reference Range Interpretation Comments TSH (test code = See_Comment [Automated message] 7783632534) The system YouTube generated this result transmitted ref erence range: 0.45 - 4 .70 mIU/L. The refe rence range was not u sed to interpret this result as normal/abnor mal. Lab Interpretation (test Normal code = 04172-4) [facility] CenterCOVID-19 (ID NOW RAPID TESTING)2020-10-24 13:06:12 Test Item Value Reference Range Interpretation Comments SARS-CoV-2 Rapid ID NOW Not Detected Not Detected (test code = 92802-0) TAMIKO (test code = TAMIKO) ID NOW COVID-19 Assay is an isothermal nucleic acid amplification test intended for the qualitative detection of nucleic acid from SARS-CoV-2 viral RNA in nasopharyngeal (PAROLE AGENT) specimens. It is used under Emergency Use [...] indicated. Lab Interpretation Normal (test code = 74413-3) [facility] CenterTROPONIN J2406-24-25 13:00:47 Test Item Value Reference Range Interpretation Comments TROPONIN I (test 0.017 ng/mL See_Comment [Automated code = 0297147132) message] The system which generated this result transmitted reference range : <=0.034. The reference range was not used to interpret this result as normal/abnormal . TAMIKO (test code = Equal or Less than TMAIKO) 0.034 ng/ml---Normal ?Note: Cardiac troponin begins to [...] ? Lab Interpretation Normal (test code = 94310-1) [facility] CenterN-[facility]MIN[address] A[address]-[id number] 12:54:30 Test Item Value Reference Range Interpretation Comments NT-proBNP (test code 22 pg/mL See_Comment [Autom ated = 4618657981) message] The system which generated this result transmitted reference range : <=125. The reference range was not used to interpret this result as normal/abnormal . TAMIKO (test code = TAMIKO) Biotin has been reported to cause a negative bias, interpret results relative to patient's use of biotin. Lab Interpretation Normal (test code = 22343-0) [facility] CenterETHANOL2021-06-16 12:51:47 Test Item Value Reference Range Interpretation Comments ALCOHOL (test code = 284 mg/dL 3953709922) TAMIKO (test code = TAMIKO) <10 Vsjrnekn18-289 Toxic>100 Depression of DOOR TENDER>400 Fatalities Reported [facility] CenterCREATINE [id number] 12:51:07 Test Item Value Reference Range Interpretation Comments CK (test code = 1764343781) 744 U/L 33-194 H Lab Interpretation (test code = Abnormal 22834-7) [facility] CenterLIPASE2021-06-16 12:51:07 Test Item Value Reference Range Interpretation Comments LIPASE (test code = 1353058902) 92 U/L 0-220 Lab Interpretation (test code = Normal 63983-0) [facility] CenterCOMP. METABOLIC PANEL (18448)2020-10-24 12:49:29 Test Item Value Reference Range Interpretation Comments NA (test code = 144 mmol/L 135-145 0974612492) K (test code = 3.5 mmol/L 3.5-5.0 5465514993) CL (test code = 98 mmol/L 98-108 8235882241) CO2 TOTAL (test code = 29 mmol/L 23-31 2283653088) AGAP (test code = 2-16 H 0929218940) BUN (test code = 7 mg/dL 7-23 3582049590) GLUCOSE (test code = 148 mg/dL 70-110 H 4579416280) CREATININE (test code = 0.84 mg/dL 0.60-1.25 5343492544) TOTAL BILI (test code = 0.4 mg/dL 0.1-1.5 6842662004) CALCIUM (test code = 9.1 mg/dL 8.6-10.6 2441890451) T PROTEIN (test code = 7.6 g/dL 6.3-8.2 3966074530) ALBUMIN (test code = 4.5 g/dL 3.5-5.0 6834694793) ALK PHOS (test code = 89 U/L 34-122 9007145205) ALTv (test code = 49 U/L 5-50 1742-6) AST(SGOT) (test code = 75 U/L 13-40 H 7027811947) eGFR (test code = mL/min/1.73m2 1810900471) TAMIKO (test code = TAMIKO) Association of [...] tests). Lab Interpretation Abnormal (test code = 30427-3) [facility] CenterCT CHEST PULMONARY FHDHHAMQQ9102-53-04 12:44:11 No pulmonary embolism to the level [...] reviewed this study and agree with theabove report.[facility] CenterURINE DRUG (IMMUNOASSAY) - COMPREHENSIVE DRUG [id number] 12:36:45 Test Item Value Reference Range Interpretation Comments AMPHET (test code = Negative Negative 6242729231) CLAUDIA U (test code = Negative Negative 9424791340) BENZO U (test code = Presumptive Positive Negative A 0233863345) Cocaine Metabolite (test Negative Negative code = 0463524644) METHADONE (test code = Negative Negative 8848095952) OPIATES (test code = Negative Negative 7315536168) PCP (test code = Negative Negative 5091329833) THC (test code = Negative Negative 9270270047) TAMIKO (test code = TAMIKO) Urine Drug [...] testing). Lab Interpretation (test Abnormal code = 77513-7) [facility] CenterURINALYSIS2021-06-16 12:18:19 Test Item Value Reference Range Interpretation Comments APPEARANCE (test code = Clear Clear 1440270984) COLOR (test code = Yellow Yellow 3141869321) PH (test code = 4.8-8.0 6040607016) SP GRAVITY (test code = 1.003-1.030 H 2417637532) GLU U QUAL (test code = Normal Normal 8992141102) BLOOD (test code = 1+ Negative A 5068541801) KETONES (test code = Negative Negative 4084520866) PROTEIN (test code = 100 mg/dL Negative A 2887-8) UROBILIN (test code = Normal Normal 0383097671) BILIRUBIN (test code = Negative Negative 5263505555) NITRITE (test code = Negative Negative 7833210991) LEUK GINO (test code = Negative Negative 5989317162) RBC/HPF (test code = See_Comment [Autom ated message] 3969975683) The system YouTube generated this result transmit luis reference range : 0 - 3 HPF. The refe rence range was not u sed to interpret th is result as normal/abnormal . WBC/HPF (test code = See_Comment [Autom ated message] 8278339483) The system YouTube generated this result transmit luis reference range : 0 - 5 HPF. The refe rence range was not u sed to interpret th is result as normal/abnormal . BACTERIA (test code = Few Negative A 3356529776) MUCOUS (test code = Slight Negative LPF A 1797387361) SQ EPITH (test code = <1 HPF 2432016107) HYAL CAST (test code = See_Comment H [Aut omated message] 5938368276) The system YouTube generated this result transmit luis reference range : <=2 LPF. The refere nce range was not u sed to interpret th is result as normal/abnormal . GRAN CASTS (test code = See_Comment H [Au tomated message] 6890119267) The system YouTube generated this result transmit luis reference range : <=1 LPF. The refere nce range was not u sed to interpret th is result as normal/abnormal . Lab Interpretation (test Abnormal code = 15553-7) [facility] CenterD-[id number] 12:16:48 Test Item Value Reference Interpretation Comments Range D-DIMER (test code = See_Comment H [Autom ated 8472115386) message] The system which generated this result [...] diagnosis. Lab Interpretation Abnormal (test code = 75972-8) [facility] CenterACTIVATED PARTIAL THRMPLAS [id number] 12:10:05 Test Item Value Reference Range Interpretation Comments APTT Patient (test See_Comment [Automat ed code = 3173-2) message] The system which generated this result transmitted reference range : 23 - 38 Seconds . The reference range was not used to interpr et this result as normal/abnormal . TAMIKO (test code = TAMIKO) The [facility] patient population mean normal value for aPTT is 30 seconds. Lab Interpretation Normal (test code = 02651-0) [facility] CenterPROTHROMBIN TIME / [id number] 12:08:09 Test Item Value Reference Range Interpretation [...] tions. Lab Interpretation (test Normal code = 25692-8) [facility] CenterCBC WITH [id number] 11:46:38 Test Item Value Reference Range Interpretation Comments WBC (test code = See_Comment [Automated 3290-2) message] The sy stem which generated this [...] RDW-SD (test code = 43.2 fL 38.5-51.6 33277-5) RDW-CV (test code = 13.8 % 12.1-15.4 788-0) PLT (test code = See_Comment [Automated 777-3) message] The sy stem which generated this result transmitted reference range : 150 - 328 10*3/ ?L. The reference r javier was not used to interpret this result as normal/abnormal . MPV (test code = 9.1 fL 9.8-13.0 L 76500-6) NRBC/100 WBC (test See_Comment [Automat ed code = 4140545175) message] The system which generated this result transmitted reference range : 0.0 - 10.0 /100 WBCs. The refer ence range was not u sed to interpret th is result as normal/abnormal . NRBC x10^3 (test code <0.01 See_Comment [Auto mated = 4180533275) message] The s ystem which generated this result transmitted reference range : 10*3/?L. The reference range was not used to interpret this result as normal/abnormal . GRAN MAT (NEUT) % 58.2 % (test code = 770-8) IMM GRAN % (test code 0.40 % = 5641667183) LYMPH % (test code = 29.0 % 736-9) MONO % (test code = 10.1 % 5905-5) EOS % (test code = 1.2 % 713-8) BASO % (test code = 1.1 % 706-2) GRAN MAT x10^3(ANC) 4.82 10*3/uL 1.99-6.95 (test code = 2579338812) IMM GRAN x10^3 (test 0.03 10*3/uL 0.00-0.06 code = 7972868077) LYMPH x10^3 (test code 2.40 10*3/uL 1.09-3.23 = 731-0) MONO x10^3 (test code 0.84 10*3/uL 0.36-1.02 = 742-7) EOS x10^3 (test code = 0.10 10*3/uL 0.06-0.53 711-2) BASO x10^3 (test code 0.09 10*3/uL 0.01-0.09 = 704-7) Lab Interpretation Abnormal (test code = 71589-5) [facility] CenterPOCT GLUCOSE (AUTOMATED)2020-10-24 11:21:11 Test Item Value Reference Range Interpretation Comments POCT GLU (test code = 3335648775) 147 mg/dL 70-110 H Lab Interpretation (test code = Abnormal 70321-0) [facility] CenterTHYROID STIMULATING [id number] 19:43:06 Test Item Value Reference Range Interpretation Comments TSH (test code = See_Comment [Automated message] 7024587196) The system YouTube generated this result transmitted ref erence range: 0.45 - 4 .70 mIU/L. The refe rence range was not u sed to interpret this result as normal/abnor mal. Lab Interpretation (test Normal code = 95268-2) [facility] CenteraPTT2021-03-20 19:41:21 Test Item Value Reference Range Interpretation Comments APTT Patient (test See_Comment [Automat ed code = 3173-2) message] The system which generated this result transmitted reference range : 23 - 38 Seconds . The reference range was not used to interpr et this result as normal/abnormal . TAMIKO (test code = TAMIKO) The [facility] patient population mean normal value for aPTT is 30 seconds. Lab Interpretation Normal (test code = 00357-6) [facility] CenterFREE [id number] 19:29:44 Test Item Value Reference Range Interpretation Comments FREE T4 (test code = See_Comment [Autom ated message] 8189754449) The system YouTube generated this result transmitted ref erence range: 0.78 - 2 .20 ng/dL:. The ref erence range was not u sed to interpret this result as normal/abnor mal. Lab Interpretation (test Normal code = 82179-7) [facility] CenterTroponin [id number] 19:24:48 Test Item Value Reference Range Interpretation Comments TROPONIN I (test <0.012 See_Comment [Automated code = 2035915626) message] The system which generated this result [...] ? Lab Interpretation Normal (test code = 35085-9) [facility] CenterN-TERMINAL HKS-[id number] 19:21:28 Test Item Value Reference Range Interpretation Comments NT-proBNP (test code 47 pg/mL See_Comment [Autom ated = 4746898634) message] The system which generated this result transmitted reference range : <=125. The reference range was not used to interpret this result as normal/abnormal . TAMIKO (test code = TAMIKO) Biotin has been reported to cause a negative bias, interpret results relative to patient's use of biotin. Lab Interpretation Normal (test code = 09629-1) [facility] CenterBasi Metabolic Panel (NA, K, CL, CO2, GLUCOSE, BUN, CREATININE, CA)2020-07-28 19:12:46 Test Item Value Reference Range Interpretation Comments NA (test code = 137 mmol/L 135-145 2352278230) K (test code = 3.5 mmol/L 3.5-5.0 6648723501) CL (test code = 99 mmol/L 98-108 1635232723) CO2 TOTAL (test code = 26 mmol/L 23-31 2831507065) AGAP (test code = 2-16 0368504933) BUN (test code = 3 mg/dL 7-23 L 8602453070) GLUCOSE (test code = 96 mg/dL 70-110 3848218821) CREATININE (test code = 0.69 mg/dL 0.60-1.25 9131107739) CALCIUM (test code = 9.1 mg/dL 8.6-10.6 0812827454) eGFR Calculation mL/min/1.73m2 (Non-) (test code = 4197652438) eGFR Calculation mL/min/1.73m2 () (test code = 4828872302) TAMIKO (test code = TAMIKO) Association of [...] tests). Lab Interpretation Abnormal (test code = 54534-7) [facility] CenterHepatic Function Panel (ALB, T.PRO, BILI T, BU/BC, ALT, AST, ALK PHOS)2020-07-28 19:12:26 Test Item Value Reference Range Interpretation Comments TOTAL BILI (test code = 7608830147) 0.5 mg/dL 0.1-1.1 BILI UNCON (test code = 3633452762) 0.3 mg/dL 0.1-1.1 BILI CONJ (test code = 7533828799) 0.0 mg/dL 0.0-0.3 T PROTEIN (test code = 0403165203) 7.7 g/dL 6.3-8.2 ALBUMIN (test code = 5853907002) 4.7 g/dL 3.5-5.0 ALK PHOS (test code = 8595773070) 115 U/L 34-122 ALTv (test code = 1742-6) 29 U/L 5-50 AST(SGOT) (test code = 3611077426) 27 U/L 13-40 Lab Interpretation (test code = Normal 05582-3) [facility] CenterCOVID-19 (ID NOW RAPID TESTING)2020-07-28 19:00:24 Test Item Value Reference Range Interpretation Comments SARS-CoV-2 Rapid ID NOW Not Detected Not Detected (test code = 99690-3) TAMIKO (test code = TAMIKO) ID NOW COVID-19 Assay is an isothermal nucleic acid amplification test intended for the qualitative detection of nucleic acid from SARS-CoV-2 viral RNA in nasopharyngeal (PAROLE AGENT) specimens. It is used under Emergency Use [...] indicated. Lab Interpretation Normal (test code = 40094-8) [facility] / [facility] - DRUG SCREEN [id number] 18:56:58 Test Item Value Reference Range Interpretation Comments BENZO U (test code = Presumptive Positive Negative A 5059720447) CLAUDIA U (test code = Negative Negative 0796320160) AMPHET (test code = Presumptive Positive Negative A 7719938140) THC (test code = Negative Negative 5560942720) METHADONE (test code = Negative Negative 1928227486) Meth U (test code = Presumptive Positive Negative A 8517507512) OPIATES (test code = Presumptive Positive Negative A 2018846540) Cocaine Metabolite (test Negative Negative code = 4877140818) PROPOXY (test code = Negative Negative 1343526216) Tric U (test code = Negative Negative 4669441936) PCP (test code = Negative Negative 5803577197) OXYCOD (test code = Negative Negative 1808643353) TAMIKO (test code = TAMIKO) Urine Drug [...] testing). Lab Interpretation (test Abnormal code = 18763-9) [facility] CenterUrinalysis2021-03-20 18:54:32 Test Item Value Reference Range Interpretation Comments APPEARANCE (test code = Clear Clear 7870682261) COLOR (test code = Yellow Yellow 2867275773) PH (test code = 4.8-8.0 3591732019) SP GRAVITY (test code = 1.003-1.030 8265820178) GLU U QUAL (test code = Normal Normal 9252292839) BLOOD (test code = Negative Negative 6653690592) KETONES (test code = Negative Negative 1056769751) PROTEIN (test code = Negative Negative 2887-8) UROBILIN (test code = Normal Normal 9583191849) BILIRUBIN (test code = Negative Negative 7432498879) NITRITE (test code = Negative Negative 8155526938) LEUK GINO (test code = Negative Negative 5447829187) RBC/HPF (test code = See_Comment [Autom ated message] 8140472270) The system YouTube generated this result transmitted ref erence range: 0 - 3 HP F. The reference range was not used to int erpret this result as normal/abnormal . WBC/HPF (test code = <1 See_Comment [Autom ated message] 5955064614) The system YouTube generated this result transmitted ref erence range: 0 - 5 HP F. The reference range was not used to int erpret this result as normal/abnormal . BACTERIA (test code = Negative Negative 7608657205) Lab Interpretation (test Normal code = 80373-0) [facility] CenterProthrombin Time (PT) / [id number] 18:54:27 Test Item Value Reference Range Interpretation Comments PROTIME PATIENT (test See_Comment [Auto mated message] code = 5964-2) The system [employer] generated this result transmitted ref erence range: 12.0 - 1 4.7 Seconds. The re ference range was not u sed to interpret this result as normal/abnor mal. INR (test code = 6301-6) Nor mal INR <1.1; Warfarin Therap eutic range 2.0 to 3. 0 or 2.5 to 3.5, dep ending upon the indica tions. Lab Interpretation (test Normal code = 58400-3) [facility] CenterCB with [id number] 18:41:23 Test Item Value Reference Range Interpretation Comments WBC (test code = See_Comment [Automated message] 6681-2) The system YouTube generated this result transmitted ref erence range: 4.20 - 1 0.70 10*3/?L. The re ference range was not u sed to interpret this result as normal/abnor mal. RBC (test code = See_Comment [Automated message] 619-8) The system YouTube generated this result transmitted ref erence range: [...] RDW-SD (test code 43.4 fL 38.5-51.6 = 04048-5) RDW-CV (test code 13.2 % 12.1-15.4 = 788-0) PLT (test code = See_Comment [Automated message] 647-3) The system YouTube generated this result transmitted ref erence range: 150 - 32 8 10*3/?L. The re ference range was not u sed to interpret this result as normal/abnor mal. MPV (test code = 9.9 fL 9.8-13.0 31596-4) NRBC/100 WBC (test See_Comment [Automat ed message] code = 5536781939) The syste [employer] which generated this result transmitted ref erence range: 0.0 - 10 .0 /100 WBCs. The refer ence range was not u sed to interpret this result as normal/abnor mal. NRBC x10^3 (test <0.01 See_Comment [Automated message] code = 5756883800) The syste m which generated this result transmitted ref erence range: 10*3/?L. The reference range was not used to interpr et this result as normal/abnormal . GRAN MAT (NEUT) % 68.0 % (test code = 770-8) IMM GRAN % (test 0.50 % code = 1309359822) LYMPH % (test code 18.2 % = 736-9) MONO % (test code 11.6 % = 5905-5) EOS % (test code = 1.1 % 713-8) BASO % (test code 0.6 % = 706-2) GRAN MAT 5.40 10*3/uL 1.99-6.95 x10^3(ANC) (test code = 9086541780) IMM GRAN x10^3 0.04 10*3/uL 0.00-0.06 (test code = 5441851766) LYMPH x10^3 (test 1.45 10*3/uL 1.09-3.23 code = 731-0) MONO x10^3 (test 0.92 10*3/uL 0.36-1.02 code = 742-7) EOS x10^3 (test 0.09 10*3/uL 0.06-0.53 code = 711-2) BASO x10^3 (test 0.05 10*3/uL 0.01-0.09 code = 704-7) [facility] [id number] 15:56:00 Test Item Value Reference Range Interpretation Comments TROPONIN I (test 0.006 ng/mL See_Comment [Automated code = 2079961471) message] The system which generated this result [...] ? Lab Interpretation Normal (test code = 09021-4) [facility] CenterTROPONIN [id number] 14:08:00 Test Item Value Reference Range Interpretation Comments TROPONIN I (test 0.021 ng/mL See_Comment Hemolyzed code = 0885646893) specimen [Automated message] The system which generated [...] ? Lab Interpretation Normal (test code = 53388-1) [facility] CenterBasaint [facility] east Metabolic Panel (NA, K, CL, CO2, GLUCOSE, BUN, CREATININE, CA)2020-06-30 13:25:00 Test Item Value Reference Range Interpretation Comments NA (test code = 138 mmol/L 135-145 4541901932) K (test code = 3.5 mmol/L 3.5-5 4988862905) CL (test code = 107 mmol/L 98-108 8188600369) CO2 TOTAL (test code = 20 mmol/L 23-31 L 8506674651) AGAP (test code = 2-16 2521297938) BUN (test code = 12 mg/dL 7-23 2810426103) GLUCOSE (test code = 93 mg/dL 70-110 1247220324) CREATININE (test code = 0.83 mg/dL 0.6-1.25 7065932470) CALCIUM (test code = 8.9 mg/dL 8.6-10.6 1830903565) eGFR Calculation mL/min/1.73m2 (Non-) (test code = 3551582468) eGFR Calculation mL/min/1.73m2 () (test code = 1255143823) TAMIKO (test code = TAMIKO) Association of [...] tests). Lab Interpretation Abnormal (test code = 28521-0) [facility] with [id number] 13:04:00 Test Item Value Reference Range Interpretation [...] RDW-SD (test code = 47.3 fL 38.5-51.6 80822-7) RDW-CV (test code = 14.1 % 12.1-15.4 788-0) PLT (test code = See_Comment [Automated 777-3) message] The sy stem which generated this result transmitted reference range : 150 - 328 10*3/ ?L. The reference r javier was not used to interpret this result as normal/abnormal . MPV (test code = 10.1 fL 9.8-13 21639-7) NRBC/100 WBC (test See_Comment [Automat ed code = 1888055438) message] The system which generated this result transmitted reference range : 0.0 - 10.0 /100 WBCs. The refer ence range was not u sed to interpret th is result as normal/abnormal . NRBC x10^3 (test code <0.01 See_Comment [Auto mated = 0625038741) message] The s ystem which generated this result transmitted reference range : 10*3/?L. The reference range was not used to interpret this result as normal/abnormal . GRAN MAT (NEUT) % 45.2 % (test code = 770-8) IMM GRAN % (test code 0.50 % = 8068309151) LYMPH % (test code = 39.0 % 736-9) MONO % (test code = 11.9 % 5905-5) EOS % (test code = 2.6 % 713-8) BASO % (test code = 0.8 % 706-2) GRAN MAT x10^3(ANC) 3.00 10*3/uL 1.99-6.95 (test code = 1651170454) IMM GRAN x10^3 (test 0.03 10*3/uL 0-0.06 code = 7436579461) LYMPH x10^3 (test code 2.58 10*3/uL 1.09-3.23 = 731-0) MONO x10^3 (test code 0.79 10*3/uL 0.36-1.02 = 742-7) EOS x10^3 (test code = 0.17 10*3/uL 0.06-0.53 711-2) BASO x10^3 (test code 0.05 10*3/uL 0.01-0.09 = 704-7) Lab Interpretation Abnormal (test code = 03140-3) [facility] [id number] 05:44:12 No acute cardiopulmonary abnormality. Preliminary Report [...] reviewed this study and agree with the abovereport.[facility] TROPONIN [id number] 05:05:00 Test Item Value Reference Range Interpretation Comments TROPONIN I (test <0.012 See_Comment [Automated code = 7809762993) message] The system which generated this result [...] ? Lab Interpretation Normal (test code = 32341-8) [facility] ([id number])2019-11-10 05:05:00 Test Item Value Reference Range Interpretation Comments NA (test code = 135 mmol/L 135-145 6457069793) K (test code = 3.6 mmol/L 3.5-5 0780258285) CL (test code = 102 mmol/L 98-108 8354295722) CO2 TOTAL (test code = 23 mmol/L 23-31 1455790173) AGAP (test code = 2-16 8433990332) BUN (test code = 15 mg/dL 7-23 9297102454) GLUCOSE (test code = 93 mg/dL 70-110 2461561100) CREATININE (test code 0.79 mg/dL 0.6-1.25 = 4130291902) TOTAL BILI (test code 0.4 mg/dL 0.1-1.1 = 3274130143) CALCIUM (test code = 9.4 mg/dL 8.6-10.6 5817815749) T PROTEIN (test code = 7.9 g/dL 6.3-8.2 9669383329) ALBUMIN (test code = 4.5 g/dL 3.5-5 7259925660) ALK PHOS (test code = 61 U/L 34-122 4099675679) ALTv (test code = 22 U/L 5-50 1742-6) AST(SGOT) (test code = 26 U/L 13-40 0129698973) eGFR Calculation mL/min/1.73m2 (Non-) (test code = 4007447574) eGFR Calculation mL/min/1.73m2 () (test code = 7950155827) TAMIKO (test code = TAMIKO) Association of [...] or abnormalities in imaging tests). [facility] 04:45:00 Test Item Value Reference Range Interpretation Comments APTT Patient (test See_Comment [Automat ed code = 3173-2) message] The system which generated this result transmitted reference range : 23 - 38 Seconds . The reference range was not used to interpr et this result as normal/abnormal . TAMIKO (test code = TAMIKO) The [facility] patient population mean normal value for aPTT is 30 seconds. Lab Interpretation Normal (test code = 94123-0) [facility] CenterPROTHR[facility] TIME / [id number] 04:45:00 Test Item Value Reference Range Interpretation [...] tions. Lab Interpretation (test Normal code = 04994-4) [facility] WITH [id number] 04:37:00 Test Item Value Reference Range Interpretation Comments WBC (test code = See_Comment [Automated 9990-2) message] The sy stem which generated this result transmitted reference range : 4.20 - 10.70 10*3/?L. The reference range was not used to interpret this result as normal/abnormal . RBC (test code = See_Comment [Automated 179-8) message] The sy stem which generated this [...] RDW-SD (test code = 39.7 fL 38.5-51.6 80827-7) RDW-CV (test code = 12.7 % 12.1-15.4 788-0) PLT (test code = See_Comment [Automated 777-3) message] The sy stem which generated this result transmitted reference range : 150 - 328 10*3/ ?L. The reference r javier was not used to interpret this result as normal/abnormal . MPV (test code = 10.3 fL 9.8-13 23060-3) NRBC/100 WBC (test See_Comment [Automat ed code = 4451799320) message] The system which generated this result transmitted reference range : 0.0 - 10.0 /100 WBCs. The refer ence range was not u sed to interpret th is result as normal/abnormal . NRBC x10^3 (test code <0.01 See_Comment [Auto mated = 5838308836) message] The s ystem which generated this result transmitted reference range : 10*3/?L. The reference range was not used to interpret this result as normal/abnormal . GRAN MAT (NEUT) % 47.9 % (test code = 770-8) IMM GRAN % (test code 0.20 % = 0293700615) LYMPH % (test code = 33.3 % 736-9) MONO % (test code = 12.1 % 5905-5) EOS % (test code = 5.7 % 713-8) BASO % (test code = 0.8 % 706-2) GRAN MAT x10^3(ANC) 5.08 10*3/uL 1.99-6.95 (test code = 6913334759) IMM GRAN x10^3 (test <0.03 0-0.06 code = 7588462194) LYMPH x10^3 (test code 3.53 10*3/uL 1.09-3.23 H = 731-0) MONO x10^3 (test code 1.28 10*3/uL 0.36-1.02 H = 742-7) EOS x10^3 (test code = 0.61 10*3/uL 0.06-0.53 H 711-2) BASO x10^3 (test code 0.09 10*3/uL 0.01-0.09 = 704-7) Lab Interpretation Abnormal (test code = 66053-4) [facility]2020-05-21 16:01:00 Test Item Value Reference Range Interpretation Comments APPEARANCE (test code = Clear Clear 3205208352) COLOR (test code = Other Yellow A 5463812293) PH (test code = 4.8-8.0 3908133124) SP GRAVITY (test code = <=1.005 1.003-1.030 4648228826) GLU U QUAL (test code = Negative Negative 3247263870) BLOOD (test code = Negative Negative 4700367849) KETONES (test code = Negative Negative 9055196424) PROTEIN (test code = Negative Negative 2887-8) UROBILIN (test code = 0.2 mg/dL See_Comment [Auto mated message] 9018563759) The system [employer] generated this result transmit luis reference range : 0-1.0 mg/dL. Th e reference range was not used to interpret this result as normal/abnormal . BILIRUBIN (test code = Negative Negative 2227268795) NITRITE (test code = Negative Negative 8081449376) LEUK GINO (test code = Negative Negative 6471483332) RBC/HPF (test code = See_Comment [Autom ated message] 9982104468) The system [employer] generated this result transmit luis reference range : 0 - 3 HPF. The refe rence range was not u sed to interpret th is result as normal/abnormal . WBC/HPF (test code = See_Comment [Autom ated message] 7922299533) The system [employer] generated this result transmit luis reference range : 0 - 5 HPF. The refe rence range was not u sed to interpret th is result as normal/abnormal . BACTERIA (test code = Negative Negative 5477862560) MUCOUS (test code = Slight Negative LPF A 1836273620) SQ EPITH (test code = HPF 1329835808) Lab Interpretation (test Abnormal code = 60965-9) [facility] ([id number])2019-09-29 15:57:00 Test Item Value Reference Range Interpretation Comments NA (test code = 140 mmol/L 135-145 0627701862) K (test code = 4.8 mmol/L 3.5-5 0710279322) CL (test code = 106 mmol/L 98-108 8221782072) CO2 TOTAL (test code = 24 mmol/L 23-31 5838869831) AGAP (test code = 2-16 4604221961) BUN (test code = 14 mg/dL 7-23 2498990684) GLUCOSE (test code = 94 mg/dL 70-110 9178732808) CREATININE (test code 0.66 mg/dL 0.6-1.25 = 5466125334) TOTAL BILI (test code 0.5 mg/dL 0.1-1.1 = 4500995222) CALCIUM (test code = 9.5 mg/dL 8.6-10.6 4210068710) T PROTEIN (test code = 8.1 g/dL 6.3-8.2 0172633604) ALBUMIN (test code = 4.6 g/dL 3.5-5 9652976281) ALK PHOS (test code = 41 U/L 34-122 1974133886) ALTv (test code = 17 U/L 5-50 1742-6) AST(SGOT) (test code = 29 U/L 13-40 8659497031) eGFR Calculation mL/min/1.73m2 (Non-) (test code = 1969607881) eGFR Calculation mL/min/1.73m2 () (test code = 6143625075) TAMIKO (test code = TAMIKO) Association of [...] or urine or abnormalities in imaging tests). [facility] WITH [id number] 15:34:00 Test Item Value Reference Range Interpretation Comments WBC (test code = See_Comment [Automated 6062-2) message] The sy stem which generated this result transmitted reference range : 4.20 - 10.70 10*3/?L. The reference range was not used to interpret this result as normal/abnormal . RBC (test code = See_Comment [Automated 087-8) message] The sy stem which generated this [...] RDW-SD (test code = 41.0 fL 38.5-51.6 26456-9) RDW-CV (test code = 12.5 % 12.1-15.4 788-0) PLT (test code = See_Comment [Automated 951-3) message] The sy stem which generated this result transmitted reference range : 150 - 328 10*3/ ?L. The reference r javier was not used to interpret this result as normal/abnormal . MPV (test code = 10.3 fL 9.8-13 23167-6) NRBC/100 WBC (test See_Comment [Automat ed code = 4960826444) message] The system which generated this result transmitted reference range : 0.0 - 10.0 /100 WBCs. The refer ence range was not u sed to interpret th is result as normal/abnormal . NRBC x10^3 (test code <0.01 See_Comment [Auto mated = 2297982376) message] The s ystem which generated this result transmitted reference range : 10*3/?L. The reference range was not used to interpret this result as normal/abnormal . GRAN MAT (NEUT) % 54.5 % (test code = 770-8) IMM GRAN % (test code 0.20 % = 2216065086) LYMPH % (test code = 28.0 % 736-9) MONO % (test code = 10.0 % 5905-5) EOS % (test code = 6.6 % 713-8) BASO % (test code = 0.7 % 706-2) GRAN MAT x10^3(ANC) 4.68 10*3/uL 1.99-6.95 (test code = 1108257989) IMM GRAN x10^3 (test <0.03 0-0.06 code = 4651952280) LYMPH x10^3 (test code 2.41 10*3/uL 1.09-3.23 = 731-0) MONO x10^3 (test code 0.86 10*3/uL 0.36-1.02 = 742-7) EOS x10^3 (test code = 0.57 10*3/uL 0.06-0.53 H 711-2) BASO x10^3 (test code 0.06 10*3/uL 0.01-0.09 = 704-7) Lab Interpretation Abnormal (test code = 31697-2) [facility] CenterLOGAN [id number] 13:56:00 Test Item Value Reference Range Interpretation Comments TROPONIN I (test <0.012 See_Comment [Automated code = 8289690987) message] The system which generated this result transmitted reference range : <=0.034 ng/mL. The reference range was not used to interpr et this result as normal/abnormal . TAMIKO (test code = Equal or Less than TAMKIO) 0.034 ng/ml---Normal ?Note: Cardiac troponin begins to [...] ? Lab Interpretation Normal (test code = 99145-7) [facility] CenterPROTHROMBIN TIME / [id number] 13:44:00 Test Item Value Reference Range Interpretation Comments PROTIME PATIENT (test See_Comment [Auto mated message] code = 5964-2) The system [employer] ich generated this result transmitted ref erence range: 12.0 - 1 4.7 Seconds. The re ference range was not u sed to interpret this result as normal/abnor mal. INR (test code = 6301-6) Nor mal INR <1.1; Warfarin Therap eutic range 2.0 to 3. 0 or 2.5 to 3.5, dep ending upon the indica tions. Lab Interpretation (test Normal code = 14955-9) [facility] Center[facility] MET[facility]OLIC PANEL (00780)2019-06-16 13:44:00 Test Item Value Reference Range Interpretation Comments NA (test code = 138 mmol/L 135-145 2240599938) K (test code = 3.9 mmol/L 3.5-5 0843148449) CL (test code = 100 mmol/L 98-108 7120494392) CO2 TOTAL (test code = 28 mmol/L 23-31 4990667290) AGAP (test code = 2-16 6360137620) BUN (test code = 14 mg/dL 7-23 0582703959) GLUCOSE (test code = 108 mg/dL 70-110 5068495900) CREATININE (test code = 0.75 mg/dL 0.6-1.25 8446713776) TOTAL BILI (test code = 0.5 mg/dL 0.1-1.4 5076012545) CALCIUM (test code = 8.8 mg/dL 8.6-10.6 3599534214) T PROTEIN (test code = 7.3 g/dL 6.3-8.2 7383720868) ALBUMIN (test code = 4.4 g/dL 3.5-5 3662546247) ALK PHOS (test code = 63 U/L 34-122 9456018463) ALTv (test code = 48 U/L 5-50 1742-6) AST(SGOT) (test code = 47 U/L 13-40 H 9897428592) eGFR Calculation mL/min/1.73m2 (Non-) (test code = 5966600709) eGFR Calculation mL/min/1.73m2 () (test code = 1751036273) TAMIKO (test code = TAMIKO) Association of [...] tests). Lab Interpretation Abnormal (test code = 57538-9) [facility] CenterLIPASE, [id number] 13:44:00 Test Item Value Reference Range Interpretation Comments LIPASE (test code = 1111272977) 61 U/L 0-220 Lab Interpretation (test code = Normal 43140-4) [facility]eraPTT2020-02-06 13:43:00 Test Item Value Reference Range Interpretation Comments APTT Patient (test See_Comment [Automat ed code = 3173-2) message] The system which generated this result transmitted reference range : 23 - 38 Seconds . The reference range was not used to interpr et this result as normal/abnormal . TAMIKO (test code = TAMIKO) The [facility] patient population mean normal value for aPTT is 30 seconds. Lab Interpretation Normal (test code = 71623-9) [facility] Center[facility] WITH [id number] 13:30:00 Test Item Value Reference Range Interpretation Comments WBC (test code = See_Comment [Automated 9590-2) message] The sy stem which generated this result transmitted reference range : 4.20 - 10.70 10*3/?L. The reference range was not used to interpret this result as normal/abnormal . RBC (test code = See_Comment [Automated 539-8) message] The sy stem which generated this [...] RDW-SD (test code = 40.6 fL 38.5-51.6 61612-6) RDW-CV (test code = 12.6 % 12.1-15.4 788-0) PLT (test code = See_Comment [Automated 777-3) message] The sy stem which generated this result transmitted reference range : 150 - 328 10*3/ ?L. The reference r javier was not used to interpret this result as normal/abnormal . MPV (test code = 9.7 fL 9.8-13 L 17216-9) NRBC/100 WBC (test See_Comment [Automat ed code = 2879089128) message] The system which generated this result transmitted reference range : 0.0 - 10.0 /100 WBCs. The refer ence range was not u sed to interpret th is result as normal/abnormal . NRBC x10^3 (test code <0.01 See_Comment [Auto mated = 2239654481) message] The s ystem which generated this result transmitted reference range : 10*3/?L. The reference range was not used to interpret this result as normal/abnormal . GRAN MAT (NEUT) % 52.5 % (test code = 770-8) IMM GRAN % (test code 0.30 % = 8913453655) LYMPH % (test code = 29.9 % 736-9) MONO % (test code = 11.5 % 5905-5) EOS % (test code = 4.5 % 713-8) BASO % (test code = 1.3 % 706-2) GRAN MAT x10^3(ANC) 3.14 10*3/uL 1.99-6.95 (test code = 3384111243) IMM GRAN x10^3 (test <0.03 0-0.06 code = 5882367935) LYMPH x10^3 (test code 1.79 10*3/uL 1.09-3.23 = 731-0) MONO x10^3 (test code 0.69 10*3/uL 0.36-1.02 = 742-7) EOS x10^3 (test code = 0.27 10*3/uL 0.06-0.53 711-2) BASO x10^3 (test code 0.08 10*3/uL 0.01-0.09 = 704-7) Lab Interpretation Abnormal (test code = 99630-6) [facility] CenterTROPONIN [id number] 19:02:00 Test Item Value Reference Range Interpretation Comments TROPONIN I (test <0.012 See_Comment [Automated code = 2055624455) message] The system which generated this result [...] ? Lab Interpretation Normal (test code = 68847-8) [facility] CenterCOM. MET[facility]OLIC PANEL (44534)2019-06-15 18:50:00 Test Item Value Reference Range Interpretation Comments NA (test code = 145 mmol/L 135-145 8549535958) K (test code = 4.1 mmol/L 3.5-5 7581943619) CL (test code = 103 mmol/L 98-108 4955985470) CO2 TOTAL (test code = 32 mmol/L 23-31 H 5763173671) AGAP (test code = 2-16 8670285209) BUN (test code = 11 mg/dL 7-23 9938862823) GLUCOSE (test code = 108 mg/dL 70-110 3493071231) CREATININE (test code = 0.73 mg/dL 0.6-1.25 9551900795) TOTAL BILI (test code = 0.5 mg/dL 0.1-1.0 8071841936) CALCIUM (test code = 9.3 mg/dL 8.6-10.6 9598549781) T PROTEIN (test code = 8.1 g/dL 6.3-8.2 9382338887) ALBUMIN (test code = 4.9 g/dL 3.5-5 7613455641) ALK PHOS (test code = 65 U/L 34-122 2139518414) ALTv (test code = 61 U/L 5-50 H 1742-6) AST(SGOT) (test code = 45 U/L 13-40 H 9449250846) eGFR Calculation mL/min/1.73m2 (Non-) (test code = 6519338252) eGFR Calculation mL/min/1.73m2 () (test code = 1152094998) TAMIKO (test code = TAMIKO) Association of [...] tests). Lab Interpretation Abnormal (test code = 28418-3) [facility] CenterMAGNESIUM2020-02-05 18:50:00 Test Item Value Reference Range Interpretation Comments MAGNESIUM (test code = 7631657031) 2.2 mg/dL 1.7-2.4 Lab Interpretation (test code = Normal 69643-2) [facility] CenterCB WITH [id number] 18:39:00 Test Item Value Reference Range Interpretation Comments WBC (test code = See_Comment [Automated message] 9690-2) The system [employer] generated this result transmitted ref erence range: 4.20 - 1 0.70 10*3/?L. The re ference range was not u sed to interpret this result as normal/abnor mal. RBC (test code = See_Comment [Automated message] 849-8) The system [employer] generated this result transmitted ref erence range: [...] RDW-SD (test code 41.5 fL 38.5-51.6 = 26879-1) RDW-CV (test code 12.9 % 12.1-15.4 = 788-0) PLT (test code = See_Comment [Automated message] 777-3) The system whic h generated this result transmitted ref erence range: 150 - 32 8 10*3/?L. The re ference range was not u sed to interpret this result as normal/abnor mal. MPV (test code = 10.0 fL 9.8-13 33648-0) NRBC/100 WBC (test See_Comment [Automat ed message] code = 1142111781) The syste m which generated this result transmitted ref erence range: 0.0 - 10 .0 /100 WBCs. The refer ence range was not u sed to interpret this result as normal/abnor mal. NRBC x10^3 (test <0.01 See_Comment [Automated message] code = 8070979015) The syste m which generated this result transmitted ref erence range: 10*3/?L. The reference range was not used to interpr et this result as normal/abnormal . GRAN MAT (NEUT) % 45.9 % (test code = 770-8) IMM GRAN % (test 0.10 % code = 7973841241) LYMPH % (test code 39.6 % = 736-9) MONO % (test code 8.6 % = 5905-5) EOS % (test code = 4.6 % 713-8) BASO % (test code 1.2 % = 706-2) GRAN MAT 3.36 10*3/uL 1.99-6.95 x10^3(ANC) (test code = 0514702756) IMM GRAN x10^3 <0.03 0-0.06 (test code = 3061743275) LYMPH x10^3 (test 2.91 10*3/uL 1.09-3.23 code = 731-0) MONO x10^3 (test 0.63 10*3/uL 0.36-1.02 code = 742-7) EOS x10^3 (test 0.34 10*3/uL 0.06-0.53 code = 711-2) BASO x10^3 (test 0.09 10*3/uL 0.01-0.09 code = 704-7) [facility] 1 [id number] 18:31:36HISTORY: SOB. TECHNIQUE: Portable AP erect view [...] limits. CONCLUSIONS: No signs of acute cardiopulmonary disease.[facility] FLU A AND B (MOLECULAR)2019 16:36:00 Test Item Value Reference Range Interpretation Comments POCT INFLUENZA A (test code = negative Negative - Negative 3840) POCT INFLUENZA B (test code = negative Negative - Negative 3841) Lab Interpretation (test code = Normal 28484-3) [facility] GRP A STREP (MOLECULAR)2019 16:34:00 Test Item Value Reference Range Interpretation Comments POCT GP A STREP (test code = negative Negative - Negative 23753-3) Lab Interpretation (test code = Normal 32978-8) [facility] CenterURIN[facility]YSIS2019-09-16 23:07:00 Test Item Value Reference Range Interpretation Comments APPEARANCE (test code = Clear Clear 2019975677) COLOR (test code = Yellow Yellow 8619623399) PH (test code = 4.8-8.0 1589695354) SP GRAVITY (test code = 1.003-1.030 3518321244) GLU U QUAL (test code = Normal Normal 6435960195) BLOOD (test code = Negative Negative 4556648907) KETONES (test code = 5 mg/dL Negative A 6691471404) PROTEIN (test code = Negative Negative 2887-8) UROBILIN (test code = Normal Normal 9470578102) BILIRUBIN (test code = Negative Negative 5726235891) NITRITE (test code = Negative Negative 3080868595) LEUK GINO (test code = Negative Negative 0299602915) RBC/HPF (test code = See_Comment [Autom ated message] 5060749936) The system [employer] generated this result transmitted ref erence range: 0 - 3 HP F. The reference range was not used to int erpret this result as normal/abnormal . WBC/HPF (test code = See_Comment [Autom ated message] 4101323336) The system [employer] generated this result transmitted ref erence range: 0 - 5 HP F. The reference range was not used to int erpret this result as normal/abnormal . BACTERIA (test code = Negative Negative 9577798653) MUCOUS (test code = Slight Negative LPF A 2896001442) HYAL CAST (test code = See_Comment H [Aut omated message] 4480861148) The system [employer] generated this result transmitted ref erence range: <=2 LPF. The reference range was not used to int erpret this result as normal/abnormal . Lab Interpretation (test Abnormal code = 90151-6) [facility] [id number] 22:42:00 Test Item Value Reference Range Interpretation Comments TROPONIN I (test 0.002 ng/mL See_Comment [Automated code = 5033736735) message] The system which generated this result [...] ? Lab Interpretation Normal (test code = 05615-5) [facility] / [facility] - DRUG SCREEN [id number] 22:36:00 Test Item Value Reference Range Interpretation Comments BENZO U (test code = Presumptive Positive Negative A 1137184852) CLAUDIA U (test code = Negative Negative 0287194324) AMPHET (test code = Negative Negative 0526883458) THC (test code = Negative Negative 7560232596) METHADONE (test code = Negative Negative 4215728457) Meth U (test code = Negative Negative 7514443129) OPIATES (test code = Negative Negative 0413265665) Cocaine Metabolite (test Negative Negative code = 1273365954) PROPOXY (test code = Negative Negative 6890857283) Tric U (test code = Negative Negative 0160382678) PCP (test code = Negative Negative 3496182217) OXYCOD (test code = Negative Negative 9787999136) TAMIKO (test code = TAMIKO) Urine Drug [...] testing). Lab Interpretation (test Abnormal code = 81150-7) [facility]OL[facility] PAN[facility] ([id number])2019-01-24 22:30:00 Test Item Value Reference Range Interpretation Comments NA (test code = 148 mmol/L 135-145 H 8818368333) K (test code = 4.0 mmol/L 3.5-5 5520033588) CL (test code = 110 mmol/L 98-108 H 7229844479) CO2 TOTAL (test code = 24 mmol/L 23-31 1738781702) AGAP (test code = 2-16 1082238937) BUN (test code = 9 mg/dL 7-23 7639809948) GLUCOSE (test code = 85 mg/dL 70-110 3660800963) CREATININE (test code = 0.67 mg/dL 0.6-1.25 1626705290) TOTAL BILI (test code = 0.2 mg/dL 0.1-1.0 1070102994) CALCIUM (test code = 8.7 mg/dL 8.6-10.6 5711448979) T PROTEIN (test code = 7.8 g/dL 6.3-8.2 5073119754) ALBUMIN (test code = 4.7 g/dL 3.5-5 1919041657) ALK PHOS (test code = 47 U/L 34-122 8677827052) ALT(SGPT) (test code = 19 U/L 9-51 4154035345) AST(SGOT) (test code = 25 U/L 13-40 0828532691) eGFR Calculation mL/min/1.73m2 (Non-) (test code = 4405210310) eGFR Calculation mL/min/1.73m2 () (test code = 3443879890) TAMIKO (test code = TAMIKO) Association of [...] tests). Lab Interpretation Abnormal (test code = 38189-6) [facility]2019-[facility] 22:30:00 Test Item Value Reference Range Interpretation Comments LIPASE (test code = 9718584327) 112 U/L 0-220 Lab Interpretation (test code = Normal 92742-6) [facility] WITH [id number] 22:07:00 Test Item Value Reference Range Interpretation Comments WBC (test code = See_Comment [Automated message] 6690-2) The system [employer] generated this result transmitted ref erence range: 4.20 - 1 0.70 10*3/?L. The re ference range was not u sed to interpret this result as normal/abnor mal. RBC (test code = See_Comment [Automated message] 829-8) The system [employer] generated this result transmitted ref erence range: [...] RDW-SD (test code 42.0 fL 38.5-51.6 = 99092-5) RDW-CV (test code 12.8 % 12.1-15.4 = 788-0) PLT (test code = See_Comment [Automated message] 397-3) The system [employer] generated this result transmitted ref erence range: 150 - 32 8 10*3/?L. The re ference range was not u sed to interpret this result as normal/abnor mal. MPV (test code = 10.7 fL 9.8-13 36156-1) NRBC/100 WBC (test See_Comment [Automat ed message] code = 8624471867) The [employer] which generated this result transmitted ref erence range: 0.0 - 10 .0 /100 WBCs. The refer ence range was not u sed to interpret this result as normal/abnor mal. NRBC x10^3 (test <0.01 See_Comment [Automated message] code = 3328459667) The syste m which generated this result transmitted ref erence range: 10*3/?L. The reference range was not used to interpr et this result as normal/abnormal . GRAN MAT (NEUT) % 55.2 % (test code = 770-8) IMM GRAN % (test 0.20 % code = 4970278867) LYMPH % (test code 29.8 % = 736-9) MONO % (test code 9.8 % = 5905-5) EOS % (test code = 4.4 % 713-8) BASO % (test code 0.6 % = 706-2) GRAN MAT 4.72 10*3/uL 1.99-6.95 x10^3(ANC) (test code = 6693988657) IMM GRAN x10^3 <0.03 0-0.06 (test code = 8333612428) LYMPH x10^3 (test 2.55 10*3/uL 1.09-3.23 code = 731-0) MONO x10^3 (test 0.84 10*3/uL 0.36-1.02 code = 742-7) EOS x10^3 (test 0.38 10*3/uL 0.06-0.53 code = 711-2) BASO x10^3 (test 0.05 10*3/uL 0.01-0.09 code = 704-7) [facility]:00 Test Item Value Reference Range Interpretation Comments APPEARANCE (test code = Clear Clear 9298333486) COLOR (test code = Yellow Yellow 0755493040) PH (test code = 4.8-8.0 5948733434) SP GRAVITY (test code = >=1.030 1.003-1.030 1056427880) GLU U QUAL (test code = Negative Negative 5121821115) BLOOD (test code = Negative Negative 7683181674) KETONES (test code = Negative Negative 9797071694) PROTEIN (test code = Negative Negative 2887-8) UROBILIN (test code = 0.2 mg/dL See_Comment [Auto mated message] 2729993829) The system [employer] generated this result transmit luis reference range : 0-1.0 mg/dL. Th e reference range was not used to interpret this result as normal/abnormal . BILIRUBIN (test code = Negative Negative 6303490188) NITRITE (test code = Negative Negative 4691005893) LEUK GINO (test code = Negative Negative 9656722795) RBC/HPF (test code = See_Comment [Autom ated message] 0838153498) The system [employer] generated this result transmit luis reference range : 0 - 3 HPF. The refe rence range was not u sed to interpret th is result as normal/abnormal . WBC/HPF (test code = See_Comment [Autom ated message] 4022196726) The system [employer] generated this result transmit luis reference range : 0 - 5 HPF. The refe rence range was not u sed to interpret th is result as normal/abnormal . BACTERIA (test code = Few Negative A 1017225236) Lab Interpretation (test Abnormal code = 32830-4) [facility]. METABOLIC PANEL (57347)2018-12-21 22:57:00 Test Item Value Reference Range Interpretation Comments NA (test code = 145 mmol/L 135-145 5080124158) K (test code = 3.7 mmol/L 3.5-5 8497433411) CL (test code = 106 mmol/L 98-108 8336679799) CO2 TOTAL (test code = 24 mmol/L 23-31 4108590390) AGAP (test code = 2-16 9982653733) BUN (test code = 9 mg/dL 7-23 2409836456) GLUCOSE (test code = 129 mg/dL 70-110 H 0776216432) CREATININE (test code = 0.75 mg/dL 0.6-1.25 5991800706) TOTAL BILI (test code = 0.3 mg/dL 0.1-1.7 5917366735) CALCIUM (test code = 9.1 mg/dL 8.6-10.6 3252511685) T PROTEIN (test code = 7.9 g/dL 6.3-8.2 8532789538) ALBUMIN (test code = 4.5 g/dL 3.5-5 2437511882) ALK PHOS (test code = 66 U/L 34-122 7616276527) ALT(SGPT) (test code = 62 U/L 9-51 H 7942734558) AST(SGOT) (test code = 42 U/L 13-40 H 4072616690) eGFR Calculation mL/min/1.73m2 (Non-) (test code = 4102504507) eGFR Calculation mL/min/1.73m2 () (test code = 1758548572) TAMIKO (test code = TAMIKO) Association of [...] tests). Lab Interpretation Abnormal (test code = 48997-7) [facility]:57:00 Test Item Value Reference Range Interpretation Comments LIPASE (test code = 6921297808) 296 U/L 0-220 H Lab Interpretation (test code = Abnormal 89288-9) [facility]2019-08-13 22:57:00 Test Item Value Reference Range Interpretation Comments MAGNESIUM (test code = 2547904987) 1.9 mg/dL 1.7-2.4 Lab Interpretation (test code = Normal 94661-4) [facility] CenterCBC WITH [id number] 22:38:00 Test Item Value Reference Range Interpretation [...] RDW-SD (test code = 44.4 fL 38.5-51.6 10807-2) RDW-CV (test code = 13.3 % 12.1-15.4 788-0) PLT (test code = See_Comment [Automated 777-3) message] The sy stem which generated this result transmitted reference range : 150 - 328 10*3/ ?L. The reference r javier was not used to interpret this result as normal/abnormal . MPV (test code = 10.0 fL 9.8-13 80695-9) NRBC/100 WBC (test See_Comment [Automat ed code = 5496064588) message] The system which generated this result transmitted reference range : 0.0 - 10.0 /100 WBCs. The refer ence range was not u sed to interpret th is result as normal/abnormal . NRBC x10^3 (test code <0.01 See_Comment [Auto mated = 1796003088) message] The s [employer] which generated this result transmitted reference range : 10*3/?L. The reference range was not used to interpret this result as normal/abnormal . GRAN MAT (NEUT) % 53.1 % (test code = 770-8) IMM GRAN % (test code 0.50 % = 5059653142) LYMPH % (test code = 27.1 % 736-9) MONO % (test code = 10.7 % 5905-5) EOS % (test code = 7.7 % 713-8) BASO % (test code = 0.9 % 706-2) GRAN MAT x10^3(ANC) 5.47 10*3/uL 1.99-6.95 (test code = 7584404603) IMM GRAN x10^3 (test 0.05 10*3/uL 0-0.06 code = 2847759702) LYMPH x10^3 (test code 2.79 10*3/uL 1.09-3.23 = 731-0) MONO x10^3 (test code 1.10 10*3/uL 0.36-1.02 H = 742-7) EOS x10^3 (test code = 0.79 10*3/uL 0.06-0.53 H 711-2) BASO x10^3 (test code 0.09 10*3/uL 0.01-0.09 = 704-7) Lab Interpretation Abnormal (test code = 51624-6) [facility] CenterMYOCARD IMAGING, MULTI, [id number] 14:45:00FINAL REPORT PROCEDURE: Rest/Stress MYOCARDIAL PERFUSION SPECT with treadmill\\XA9\\ CPT CODE: 85751 INDICATION: Chest pain HISTORY: Cardiac risk factors: [...] tracer distribution. 6. No previous [facility] study for comparison. NONINVASIVE RISK STRATIFICATION: The above findings are considered low risk (<1% annual mortality rate) based on the following criterion:- Normal or small myocardial perfusion defect at rest or with stress(JACC. 2012;59(9):857-81.) Signed: Ignacio Ruvalcabaeport Verified Date/Time: 03/17/2017 14:45:11 Reading Location: [address] Reading Room HEMOGLOBIN [id number] 08:29:00 Test Item Value Reference Range Interpretation Comments HEMOGLOBIN A1C (BEAKER) (test code = 5.5 % 4.3-6.1 368) TROPONIN [id number] 02:45:00 Test Item Value Reference Range Interpretation [...] Normal6.7-10.0 Borderline>10.0 AbnormalRAD, CHEST, 1 VIEW, NON [id number] 20:40:00Reason for exam:- >chest painShould this be performed at the bedside?->YesFINAL REPORT EXAMINATION: AP PORTABLE CHEST RADIOGRAPH CLINICAL INDICATION:Chest pain IMPRESSION: Compared with 04/30/2016. No evidence of focal lung consolidation, pulmonary edema or pleural effusion. The heart size is normal. Mediastinal contours are sharp. No evidence of an acute osseous abnormality or pneumothorax. Signed: Igor Castleeport Verified Date/Time: 03/16/2017 20:40:21 Reading Location: [address] Reading Room B-TYPE NATRIURETIC FACTOR (BNP)2017-03-16 20:30:00 Test Item Value Reference Range Interpretation Comments B-TYPE NATRIURETIC PEPTIDE (BEAKER) < pg/mL 0-100 (test code = 700) COMPREHENSIVE METABOLIC [id number] 20:30:00 Test Item Value Reference Range Interpretation [...] ATED GFR. CREATINE KINASE (CK), TOTAL AND [id number] 20:28:00 Test Item Value Reference Range Interpretation Comments CREATINE KINASE TOTAL (BEAKER) 50 U/L 29-200 (test code = 380) CREATINE KINASE-MB (BEAKER) (test 0.5 ng/mL 0.0-6.6 code = 750) CREATINE KINASE-MB INDEX (BEAKER) 1.0 % (test code = 395) CK-MB Reference Range:<6.7 Normal6.7-10.0 Borderline>10.0 AbnormalTROPONIN [id number] 20:28:00 Test Item Value Reference Range Interpretation [...] failure, acidosis, acute neurological disease, and persistent tachyarrhythmia.[id number] 20:21:00 Test Item Value Reference Range Interpretation Comments MAGNESIUM (BEAKER) 2.2 mg/dL 1.6-2.6 Specimen slightly (test code = 627) hemolyzed [id number] 20:21:00 Test Item Value Reference Range Interpretation Comments PHOSPHORUS (BEAKER) 3.9 mg/dL 2.3-4.7 Specimen slightly (test code = 604) hemolyzed LIPID [id number] 20:21:00 Test Item Value Reference Range Interpretation [...] Borderline 130-159 High 160-189 Very High >=190PROTHROMBIN TIME/[id number] 20:07:00 Test Item Value Reference Range Interpretation Comments PROTIME (BEAKER) (test code = 13.0 seconds 11.7-14.7 759) INR (BEAKER) (test code = 370) 1.0 <=5.9 RECOMMENDED COUMADIN/WARFARIN INR THERAPY RANGESSTANDARD DOSE: 2.0 - 3.0 Includes: PROPHYLAXIS forvenous thrombosis, systemic embolization; TREATMENT for venous thrombosis and/or pulmonary embolus.HIGH RISK: Target INR is 2.5-3.5 for patients with mechanical heart valves.[id number] 20:07:00 Test Item Value Reference Range Interpretation Comments PARTIAL THROMBOPLASTIN TIME 26.9 seconds 22.5-36.0 (BEAKER) (test code = 760) CBC W/PLT COUNT & AUTO [id number] 19:57:00 Test Item Value Reference Range Interpretation [...]
[2021-12-02] MEDS ORDERED: lisinopriL 5 MG TAB ONE (03:46)
[2021-12-02] MEDS ORDERED: METOPROLOL TAR 50 MG TAB ONE (03:46)
[2021-12-02] MEDS ORDERED: ONDANSETRON 4 MG/2 ML VIAL ONE (03:59)
[2021-12-02 05:01] LABS: Absolute Lymphocytes (CBC) 1.8 K/uL (0.7-4.9); Hematocrit 38.2 % (39.6-49.0); MCV 89.5 fL (80-100); MPV 7.7 fL (7.6-11.3); RBC Red Blood Cell Count 4.27 M/uL (4.33-5.43)
[2021-12-02 05:32] LABS: Albumin 3.1 g/dL (3.4-5.0); Bilirubin Total 0.3 mg/dL (0.2-1.0); Protein, Total 6.6 g/dL (6.4-8.2); Troponin High Sensitivity 6.7 pg/mL (<58.9)
[2021-12-02 05:33] LABS: Potassium 3.8 mmol/L (3.5-5.1)
--- NOTE | 2021-12-02 05:55 | ER ---
Nurse's Notes [facility] Name: Srini Simpson Age: 36 yrs Sex: Male : 1985 Arrival Date: 12/02/2021 Time: 03:19 Bed 15 Private MD: Diagnosis: Palpitations;Essential (primary) hypertension Presentation: 12/02 03:19 Chief complaint: Patient states: woke up around 0200 with flutters in my chest. im lg3 pretty sure i had a panic attack so i took 1MG of clonazepam. no relief with medication. i have also been on a drinking binge since the . complaints of epigastric pain that is discomforting. Coronavirus screen: Client denies travel out of the [place] in the last 14 days. At this time, the client does not indicate any symptoms associated with coronavirus-19. Ebola Screen: No symptoms or risks identified at this time. Initial Sepsis Screen: Does the patient meet any 2 criteria? No. Patient's initial sepsis screen is negative. Does the patient have a suspected source of infection? No. Patient's initial sepsis screen is negative. Risk Assessment: Do you want to hurt yourself or someone else? Patient reports no desire to harm self or others. Onset of symptoms was December 02, 2021. 03:19 Method Of Arrival: EMS: [facility] lg3 03:19 Acuity: CHRISTINE 3 lg3 Triage Assessment: 03:27 General: Appears in no apparent distress. uncomfortable, Behavior is cooperative, lg3 anxious. Pain: Complains of pain in diaphragm and xiphoid area. EENT: No deficits noted. No signs and/or symptoms were reported regarding the EENT system. Neuro: No deficits noted. Level of Consciousness is awake, alert, obeys commands, Oriented to person, place, time, situation. Cardiovascular: No deficits noted. Capillary refill < 3 seconds Clubbing of nail beds is absent JVD is absent Patient's skin is warm and dry. Cardiovascular: Reports heart flutters. Respiratory: No deficits noted. Airway is patent Trachea midline Respiratory effort is even, unlabored, Respiratory pattern is regular, symmetrical. GI: No deficits noted. Abdomen is round non-distended, Bowel sounds present X 4 quads. : No deficits noted. No signs and/or symptoms were reported regarding the genitourinary system. Derm: No deficits noted. No signs and/or symptoms reported regarding the dermatologic system. Skin is intact, is healthy with good turgor, Skin is dry, Skin temperature is warm. Musculoskeletal: No deficits noted. No signs and/or symptoms reported regarding the musculoskeletal system. Circulation, motion, and sensation intact. Range of motion: intact in all extremities. Historical: - Allergies: 03:27 No Known Allergies; lg3 - Home Meds: 03:27 Klonopin 1 mg Oral tab every 6 hours [Active]; metoprolol tartrate 50 mg Oral tab 1 tab lg3 2 times per day [Active]; lisinopril Oral 10 mg twice a day [Active]; - PMHx: 03:27 Anxiety; Depression; ETOH/drug abuse; Hypertension; Pyloric Stenosis; lg3 - PSHx: 03:27 None; lg3 - Immunization history:: Adult Immunizations up to date, Client reports receiving the 2nd dose of the Covid vaccine, moderna X3. - Social history:: Smoking status: Reported history of juuling and/or vaping. Patient uses alcohol, patient/guardian reports chronic longstanding heavy alcohol consumption. patient/guardian reports recent binge of alcohol consumption. Screenin:33 Abuse screen: Denies threats or abuse. Denies injuries from another. Nutritional lg3 screening: No deficits noted. Tuberculosis screening: No symptoms or risk factors identified. Fall Risk None identified. Assessment: 03:33 General: see triage assessment . lg3 04:42 Reassessment: Patient appears in no apparent distress at this time. No changes from lg3 previously documented assessment. Patient and/or family updated on plan of care and expected duration. Pain level reassessed. Patient is alert, oriented x 3, equal unlabored respirations, skin warm/dry/pink. Vital Signs: 03:19 BP 162 / 95; Pulse 101; Resp 17 S; Temp 98.6(O); Pulse Ox 98% on R/A; Weight 104.33 kg lg3 (R); Height 5 ft. 7 in. (170.18 cm) (R); 04:45 BP 153 / 90; Pulse 88; Resp 17; Pulse Ox 97% on R/A; lg3 05:12 BP 161 / 94; Pulse 95; Resp 18; Pulse Ox 98% on R/A; bh1 03:19 Body Mass Index 36.02 (104.33 kg, 170.18 cm) lg3 ED Course: 03:19 Patient arrived in ED. lg3 03:19 Belen Renteria, RN is Primary Nurse. lg3 03:24 Alexx Soliman DO is Attending Physician. ms3 03:27 Triage completed. lg3 03:27 Arm band placed on right wrist. lg3 03:29 Patient has correct armband on for positive identification. Bed in low position. Call mh5 light in reach. Side rails up X 1. Warm blanket given. quality assurance monitor body on. Pulse ox on. NIBP on. 03:38 CMP Sent. mh5 03:38 CBC with Diff Sent. mh5 03:38 Troponin HS Sent. mh5 03:38 Initial lab(s) drawn, by me, sent to lab. Maintain EMS IV. Dressing intact. Good blood mh5 return noted. Site clean \T\ dry. 03:38 EKG done, by ED staff, reviewed by Alexx Soliman DO. 5 04:11 XRAY Chest (1 view) In Process Unspecified. EDMS 05:12 Andreina Quiñonez, ALTON is Primary Nurse. 1 05:12 No apparent distress. Resting quietly. Awaiting lab results. 1 05:54 Austin Martinez MD is Referral Physician. ms3 06:07 No provider procedures requiring assistance completed. IV discontinued, intact, bh1 bleeding controlled, No redness/swelling at site. Administered Medications: 03:40 Drug: Metoprolol 50 mg Route: PO; lg3 05:11 Follow up: Response: No adverse reaction 1 03:40 Drug: Lisinopril 5 mg Route: PO; lg3 05:11 Follow up: Response: No adverse reaction 1 03:53 Drug: Zofran (Ondansetron) 4 mg Route: IVP; Site: left antecubital; lg3 05:11 Follow up: Response: No adverse reaction [facility] Medication: 06:07 VIS not applicable for this client. 1 Outcome: 05:54 Discharge ordered by . ms3 06:07 Discharged to home ambulatory. bh1 06:07 Discharged to home ambulatory. 06:07 Condition: good 06:07 Discharge instructions given to patient, Instructed on discharge instructions, follow up and referral plans. Demonstrated understanding of instructions, follow-up care. 06:07 Patient left the ED. [facility] Signatures: Dispatcher [employer] Jill Campos 5 Belen Renteria RN RN 3 Alexx Soliman DO DO ms3 Andreina Quiñonez RN RN 1
--- NOTE | 2021-12-02 05:56 | EDPHYS ---
Physician Documentation [facility] Name: Srini Simpson Age: 36 yrs Sex: Male : 1985 Arrival Date: 12/02/2021 Time: 03:19 Bed 15 Private MD: ED Physician Alexx Soliman HPI: 12/02 03:35 This 36 yrs old Male presents to ER via EMS with complaints of palpitations. ms3 03:35 36-year-old male with past medical history of anxiety, depression, hypertension ms3 presents via [facility] for palpitations that were described as fast heart rate that began 1 hour prior to arrival. Patient states he took his clonazepam as he thought he may be having a panic attack. EMS states patient's heart rate was 115 and regular, 100 mL of normal saline was administered in route. Patient states he has been on a drinking binge since November 28.. Historical: - Allergies: 03:27 No Known Allergies; lg3 - Home Meds: 03:27 Klonopin 1 mg Oral tab every 6 hours [Active]; metoprolol tartrate 50 mg Oral tab 1 tab lg3 2 times per day [Active]; lisinopril Oral 10 mg twice a day [Active]; - PMHx: 03:27 Anxiety; Depression; ETOH/drug abuse; Hypertension; Pyloric Stenosis; lg3 - PSHx: 03:27 None; lg3 - Immunization history:: Adult Immunizations up to date, Client reports receiving the 2nd dose of the Covid vaccine, moderna X3. - Social history:: Smoking status: Reported history of juuling and/or vaping. Patient uses alcohol, patient/guardian reports chronic longstanding heavy alcohol consumption. patient/guardian reports recent binge of alcohol consumption. ROS: 03:35 Constitutional: Negative for fever, and chills. Eyes: Negative for injury, pain, ms3 redness, and discharge, Neck: Negative for injury, pain, and swelling. 03:35 Abdomen/GI: Negative for abdominal pain, nausea, vomiting, diarrhea, and constipation, MS/Extremity: Negative for injury and deformity, Skin: Negative for injury, rash, and discoloration. 03:35 Cardiovascular: Positive for palpitations. 03:35 All other systems are negative. Exam: 03:35 Constitutional: This is a well developed, well nourished patient who is awake, alert, ms3 and in no acute distress. Head/Face: Normocephalic, atraumatic. Neck: Trachea midline, no cervical lymphadenopathy. Supple, full range of motion without nuchal rigidity, or vertebral point tenderness. No Meningismus. Chest/axilla: Normal chest wall appearance and motion. Nontender with no deformity. Cardiovascular: Regular rate and rhythm with a normal S1 and S2. No gallops, murmurs, or rubs. Normal PMI, no JVD. No pulse deficits. Respiratory: Lungs have equal breath sounds bilaterally, clear to auscultation and percussion. No rales, rhonchi or wheezes noted. No increased work of breathing, no retractions or nasal flaring. Abdomen/GI: Soft, non-tender, with normal bowel sounds. No distension or tympany. No guarding or rebound. No evidence of tenderness throughout. Skin: Warm, dry with normal turgor. Normal color with no rashes, no lesions, and no evidence of cellulitis. MS/ Extremity: Pulses equal, no cyanosis. Neurovascular intact. Full, normal range of motion. Psych: Awake, alert, with orientation to person, place and time. Behavior, mood, and affect are within normal limits. 03:44 ECG was reviewed by the Attending Physician. ms3 Vital Signs: 03:19 BP 162 / 95; Pulse 101; Resp 17 S; Temp 98.6(O); Pulse Ox 98% on R/A; Weight 104.33 kg lg3 (R); Height 5 ft. 7 in. (170.18 cm) (R); 04:45 BP 153 / 90; Pulse 88; Resp 17; Pulse Ox 97% on R/A; lg3 05:12 BP 161 / 94; Pulse 95; Resp 18; Pulse Ox 98% on R/A; bh1 03:19 Body Mass Index 36.02 (104.33 kg, 170.18 cm) lg3 MDM: 03:24 Patient medically screened. ms3 03:35 Differential diagnosis: arrythmia, dehydration, Alcohol withdrawal. ms3 05:55 Data reviewed: vital signs, nurses notes, lab test result(s), EKG, radiologic studies, ms3 and as a result, I will discharge patient. Data interpreted: alarm security or surveillance monitor: rate is 89 beats/min, rhythm is normal sinus rhythm, regular, with no ectopy, Interpretation: normal rate, normal rhythm. Test interpretation: by ED physician or midlevel provider: ECG. Counseling: I had a detailed discussion with the patient and/or guardian regarding: the historical points, exam findings, and any diagnostic results supporting the discharge/admit diagnosis, the presence of at least one elevated blood pressure reading (>120/80) during this emergency department visit, lab results, radiology results, the need for outpatient follow up, to return to the emergency department if symptoms worsen or persist or if there are any questions or concerns that arise at home. Special discussion: Based on the patient's history, exam, and Dx evaluation, there is no indication for emergent intervention or inpatient Tx. It is understood by the patient/guardian that if the Sx's persist or worsen they need to return immediately for re-evaluation. ED course: On reevaluation patient is alert and oriented x4, in no apparent distress, nontoxic-appearing, speaking full sentences, ambulatory in emergency department. . 12/02 03:25 Order name: CBC with Diff; Complete Time: 05:39 ms3 12/02 03:25 Order name: Troponin HS; Complete Time: 05:39 ms3 12/02 03:25 Order name: XRAY Chest (1 view) ms3 12/02 03:25 Order name: CMP; Complete Time: 05:39 ms3 12/02 03:25 Order name: EKG; Complete Time: 03:25 ms3 12/02 03:25 Order name: Cardiac monitoring; Complete Time: 03:38 ms3 12/02 03:25 Order name: EKG - Nurse/Tech; Complete Time: 03:38 ms3 12/02 03:25 Order name: IV Saline Lock; Complete Time: 03:33 ms3 12/02 03:25 Order name: Labs collected and sent; Complete Time: 03:38 ms3 12/02 03:25 Order name: O2 Per Protocol; Complete Time: 03:33 ms3 12/02 03:25 Order name: O2 Sat Monitoring; Complete Time: 03:33 ms3 EC:44 Rate is 100 beats/min. Rhythm is regular. QRS [place] is Normal. Clinical impression: ms3 Sinus tachycardia. Interpreted by me. Reviewed by me. Administered Medications: 03:40 Drug: Metoprolol 50 mg Route: PO; lg3 05:11 Follow up: Response: No adverse reaction 1 03:40 Drug: Lisinopril 5 mg Route: PO; lg3 05:11 Follow up: Response: No adverse reaction 1 03:53 Drug: Zofran (Ondansetron) 4 mg Route: IVP; Site: left antecubital; lg3 05:11 Follow up: Response: No adverse reaction bh1 Disposition Summary: 12/02/21 05:54 Discharge Ordered Location: Home ms3 Condition: Stable ms3 Diagnosis - Palpitations ms3 - Essential (primary) hypertension ms3 Followup: ms3 - With: Austin Martinez MD - When: 2 - 3 days - Reason: Recheck today's complaints Discharge Instructions: - Discharge Summary Sheet ms3 - Hypertension, Adult ms3 - Palpitations ms3 Forms: - Medication Reconciliation Form ms3 - Thank You Letter ms3 - Antibiotic Education ms3 - Prescription Opioid Use ms3 Signatures: Dispatcher [employer] Belen Mariano RN RN 3 Alexx Soliman DO DO ms3 Andreina Quiñonez RN 1
[2021-12-02 06:24] VITALS: TEMP 98.6
[2021-12-02 06:28] VITALS: BP 161/94; O2SAT 98
--- NOTE | 2021-12-02 09:25 | EKG ---
Test Date: 2021-12-02 Test Time: 03:44:07 Suggestion Clerk: LISA MEASUREMENT RESULTS: Intervals: Rate: 100 MA: 124 QRSD: 84 QT: 342 QTc: 441 [place]: P: 47 MA: 124 QRS: 65 T: 39 INTERPRETIVE STATEMENTS: Normal sinus rhythm Normal ECG Compared to ECG 10/07/2021 08:55:32 No significant changes Electronically Signed On 12-02-21 09:24:34 CDT by Austin Martinez
--- NOTE | 2021-12-02 13:11 | RAD REPORT ---
EXAM DESCRIPTION: RAD - Chest Single View - 12/02/2021 4:08 am CLINICAL HISTORY: 36 years Male, CHEST PAIN COMPARISON: CT chest performed on 05/27/2021 TECHNIQUE: Single portable x-ray view of the chest performed on 12/02/2021 at 4:05 AM FINDINGS: The lungs are well expanded and are clear. There is no evidence of a pneumothorax. The cardiac silhouette is normal in size and configuration. The mediastinal contours are normal. No acute osseous abnormality is identified. No acute soft tissue abnormalities are seen. Lines and tubes: None. Free air: None IMPRESSION: No evidence of acute intrathoracic disease. Electronically signed by: Dede Pleitez DO 12/02/2021 4:38 AM CDT Due to temporary technical issues with the PACS/Fluency reporting system, reports are being signed by the in house radiologists without review as a courtesy to insure prompt reporting. The interpreting radiologist is fully responsible for the content of the report.
== END 2021-12-02 06:07 | disposition home or self-care (01) ==
LOC: ER 03:17
DX: R00.2 Palpitations (principal); I10 Essential (primary) hypertension; F41.9 Anxiety disorder, unspecified; F32.A Depression, unspecified
CPT/HCPCS: 36415; 71045; 80053; 84484; 85025; 93005; 96374; 99284; J2405

== ENCOUNTER → 2022-06-21 | Emergency (ER) | payer SELFPAY ==
[~2022-06-21] MED LIST: ACETAMINOPHEN 500 MG TAB ONE; ALBUTEROL INHALER 60 PUFF/8 GM IH ONE; AZITHROMYCIN 250 MG TAB ONE; CEFTRIAXONE 1000 MG/VIAL ONE; DIPHENOX/ATROP SULF 1 TAB PO ONE; FAMOTIDINE 20 MG TAB ONE; LORAZEPAM 1 MG TABLET ONE; LORazepam 2 MG/ML VIAL ONE; METOPROLOL TAR 50 MG TAB ONE; NA CHLORIDE 0.9% 1,000 ML ONE; NA CHLORIDE 0.9% 50 ML ONE; NICOTINE 21 MG/PAT TD ONE; POTASSIUM 25 MEQ EFFERV TAB ONE
--- OUTSIDE RECORDS SUMMARY | 2022-06-21 10:41 | XMS REPORT | Continuity of Care Document ---
:1985 Author Organization [facility] t Address [address] [place] [address] Care Team Providers Name Role Phone DOROTHY BOWERS PRADEEP Primary Care Physician Unavailable SAVANNA SUE Attending Clinician Unavailable Savanna Zarate Attending Clinician Shelley SHAHID Attending Clinician Unavailable Shelley Marroquin Attending Clinician MOHINDER MICHAEL Attending Clinician Unavailable Mohinder Michael MD Attending Clinician CIERA SEYMOUR Attending Clinician Unavailable Ciera Seymour DO Attending Clinician VIC SMYTH Attending Clinician Unavailable Jerry Herrera Attending Clinician Vic Smyth MD Attending Clinician JOESPH SHERIDAN Attending Clinician Unavailable Joesph Sheridan MD Attending Clinician LILIANA LINDO Attending Clinician Unavailable Liliana Banda Attending Clinician JON ACEVEDO Attending Clinician Unavailable Johna Porras DO Attending Clinician Jon Acevedo MD Attending Clinician ALVIN BACA Attending Clinician Unavailable Lynn Trinidad NP Attending Clinician Alvin Baca DO Attending Clinician Robbie Ibarra MD Attending Clinician Luke Donald MD, Radha Attending Clinician [phone] Kervin Moseley MD Attending Clinician Prerna Lewis MD Attending Clinician KERVIN MOSELEY Attending Clinician Unavailable RADHA ALVAREZ Attending Clinician Unavailable JENNIFER SHEA Attending Clinician Unavailable Shabbir BELTRÁN, Jennifer Attending Clinician Doctor Unassigned, [place] Attending Clinician Unavailable Celio Lopez MD Attending Clinician Michelle Aguilar Attending Clinician Nelly Dailey MD Attending Clinician Clovis Thomas MD Attending Clinician Clinic, [facility] Continuity Attending Clinician Unavail able July Casey Attending Clinician Unknown, Attending Attending Clinician Unavailable DEMOND DANIELS Attending Clinician Unavailable Demond Lagunas Attending Clinician TESSA GARCIA Attending Clinician Unavailable Shelley SHAHID Admitting Clinician Unavailable VIC SMYTH Admitting Clinician Unavailable Vic Smyth MD Admitting Clinician JON ACEVEDO Admitting Clinician Unavailable Jon Acevedo MD Admitting Clinician ALVIN BACA Admitting Clinician Unavailable Alvin Baca DO Admitting Clinician SHAN PUENTE Admitting Clinician Unavailable JENNIFER SHEA Admitting Clinician Unavailable CELIO LOPEZ Admitting Clinician Unavailable Celio Lopez MD Admitting Clinician CIERA SEYMOUR Admitting Clinician Unavailable NELLY DAILEY Admitting Clinician Unavailable DEMOND DANIELS Admitting Clinician Unavailable TESSA GARCIA Admitting Clinician Unavailable Payers Payer Name Policy Type Policy Number Effective Date Expiration Date [facility] [id number] [facility] 00:00:00 Problems Condition Condition Condition Status Onset Resolution Last Treating Co mments Source Name Details Category Date Date Treatment Clinician Date GEREMIAS (acute GEREMIAS (acute Disease Active U [facility] kidney 7-12 ity of injury) injury) 00:00: [place] 00 [facility] CULLEN CULLEN Disease Active Univers (dyspnea (dyspnea 4-28 ity of on on 00:00: [place] exertion) exertion) 00 [facility] Branch Dyslipidem Dyslipidem Disease Active U nivers ia ia 3-29 ity of 00:00: [place] 00 [facility] Anxiety Anxiety Disease Active 2020-05 Univers 2-26 ity of 00:00: [place] 00 [facility] Cigarette Cigarette Disease Active 2020-05 Uni vers smoker smoker 2-26 ity of 00:00: [place] 00 [facility] Elevated Elevated Disease Active 2020-05 Unive rs brain brain 2-26 ity of natriureti natriureti [place] c peptide c peptide 00 [facility] (BNP) (BNP) Branch level level Withdrawal Withdrawal Disease Active U jennifferers symptoms, symptoms, 6-16 ity of alcohol, alcohol, 00:00: [place] uncomplica uncomplica 00 Me dical luis luis Branch Obesity Obesity Disease Active Univers (BMI (BMI 6-16 ity of 30-39.9) 30-39.9) 00:00: [address] Branch Alcohol Alcohol Disease Active [facility]i dependence dependence 20 st with with 00:00: Hospita uncomplica uncomplica 00 l luis luis withdrawal withdrawal Suicide Suicide Disease Active Methodi attempt by attempt by 01-28 st alcohol alcohol 00:00: Hospita poisoning poisoning 00 l 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 01-28 st pine use pine use 00:00: Hospit a disorder disorder 00 l ЕЛЕНА ЕЛЕНА Disease Recurre Methodi (generaliz (generaliz nce 01-28 st ed anxiety ed anxiety 00:00: Ho spita disorder) disorder) 00 l 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 01-28 st pine use pine use 00:00: Hospit a disorder disorder 00 l Essential Essential Disease Active Uni vers hypertensi hypertensi 7- it y of on on 00:00: [place] [address] Medical Branch Family Family Disease Active Univers history of history of 7- it y of early CAD early CAD [place] [facility] Family Family Disease Active Univers history of history of 7-02 it y of early CAD early CAD [place] [facility] Chest pain Chest pain Disease Active U nivers 7- ity of 00:00: [address] Chest pain Chest pain Disease Active 2016-[address] [facility] [address] Chest Chest Disease Active 2015-[address] pain, pain, 2-21 [facility] unspecifie unspecifie 00:00: Me dical d type d type 00 Center Allergies, Adverse Reactions, Alerts Allergy Allergy Status Severity Reaction(s) Onset Inactive Treating Comm ents Source Name Type Date Date Clinician NO KNOWN Allergy Active [facility] ALLERGIE S NO KNOWN Drug Active Univers ALLERGIE Class ity of S [facility] Family History Family Member Diagnosis Comments Start Date Stop Date Source Natural father Heart attack [facility] Paternal grandfather Heart attack [facility] Maternal aunt [facility] Maternal uncle Alcohol abuse [facility] Maternal uncle Depression [facility] Maternal uncle [facility]s [facility] Social History Social Habit Start Date Stop Date Quantity Comments Source History [facility] University o f Alcohol Frequency [facility] edical Branch History [facility] University o f Alcohol Std Drinks [facility] History [facility] o f Alcohol Comment [facility] ical [place] History of tobacco Cigarette Smoker [facility] use [facility] Exposure to 2022-06-06 2022-06-16 Not sure University of SARS-CoV-2 (event) 00:00:00 10:25:00 [facility] Tobacco Comment 2021-09-05 2021-09-05 vapes Universit y of 00:00:00 00:00:00 [facility] Alcohol intake 2021-07-16 2021-07-16 Current drinker [facility] 00:00:00 00:00:00 of [facility] (finding) Education 2021-05-05 2021-05-05 13 [facility] 00:00:00 00:00:00 [facility] Cigarettes smoked 2020-01-28 2020-01-28 [facility] current ([facility] per 00:00:00 00:00:00 Hospita l day) - Reported Cigarette 2020-01-28 2020-01-28 [facility] pack-years 00:00:00 00:00:00 Hospital Tobacco use and 2020-01-28 2020-01-28 Smokeless [facility] exposure 00:00:00 00:00:00 tobacco non-user Hospital History [facility] 2018-11-09 2018-11-09 5 University o f Alcohol Binge 00:00:00 00:00:00 [facility] Sex Assigned At [birth year] [facility] [address] Anjali kes 00:00:00 00:00:00 Medical Center Smoking Status Start Date Stop Date Source Smokes tobacco daily 2021-09-05 00:00:00 Univers ity of [facility] Medications Ordered Filled Start Stop Current Ordering Indication Dosage Frequency Signature Comments Components Source Medication Medication Date Date Medication? Clinician (SIG) Name Name metoprolol Yes 50mg 50 mg, Unive rs tartrate 2-07 Oral, ity of (LOPRESSOR) 15:00: [place] tablet 50 00 First dose Medi kofi mg on Tue Branch 06/17/22 at 0900, Until Discontinu ed, Routine LORazepam No 1mg 1 mg, Univer s (ATIVAN) 06-16 Oral, ity of tablet 1 mg 17:45: 18:08 [place]CE[place] 1 [place] dose, On [facility] 06/16/22 Branch at 1145, TITA lisinopriL 2022- No 5mg 5 mg, Unive rs (PRINIVIL,Z 06-16 Oral, ity of ESTRIL) 16:45: 16:28 ONCE, 1 [place] tablet 5 mg 00 :00 dose, On Medi kofi [facility] 06/16/22 Branch at 1045, Routine LORazepam No 1mg 1 mg, Slow U nivers (ATIVAN) 06-16 IV Push, ity of injection 1 16:00: 16:42 ONCE, 1 [place] mg 00 :00 dose, On [facility] 06/16/22 Branch at 1000, STAT naproxen 2021-05 No 500mg 500 mg, Univ ers (NAPROSYN) 06-16 Oral, ity of tablet 500 02:30: 01:26 ONCE, 1 [place] mg 00 :00 dose, On [facility] Branch 04/14/22 at 2030, Routine meclizine 2021-05- No 25mg 25 mg, Unive rs (TRAVEL-EAS 06-15 Oral, ity of E 23:45: 23:56 ONCE, 1 [place] (MECLIZINE) 00 :00 dose, On [facility] ) tablet 25 [facility] mg 04/14/22 at 1745, TITA acetaminoph 2021-05- No 1000mg 1,000 mg, Univers en 06-15 Oral, ity of (TYLENOL) 23:00: 22:49 ONCE, 1 [place] tablet 00 :00 dose, On [facility] 1,000 mg [facility] 04/14/22 at 1700, TITA naproxen 2021-05 Yes [id number] 500mg Take 1 U nivers (NAPROSYN) 06-15 tablet by ity of 500 mg 00:00: mouth in [place] tablet 00 the Medical morning Branch and 1 tablet in the evening. Take with meals. naproxen 2021-05 Yes [id number] 500mg Take 1 U nivers (NAPROSYN) 2-05 tablet by ity of 500 mg 00:00: mouth in [place] tablet 00 the Medical morning Branch and 1 tablet in the evening. Take with meals. dicyclomine 2021-05 No 20mg 20 mg, Uni vers (BENTYL) 0-12 10-12 Oral, ity of tablet 20 15:15: 15:08 ONCE, 1 [place] mg 00 :00 dose, On Medical Wed Branch 02/19/22 at 1015, TITA lactated 2021-05 No 1000mL at 999 Univ ers ringers IV 0-12 10-12 mL/hr, ity of infusion 14:30: 15:22 1,000 mL, [place] 1,000 mL 00 :00 IV Medical Infusion, Branch ONCE, 1 dose, On 02/19/22 at 0930, TITA dicyclomine 2021-05 Yes [id number] 20mg Take 1 Univers 20 mg 0-12 tablet by ity of tablet 00:00: mouth (four) Medical times Branch daily as needed for Abdominal pain. ondansetron 2021-05 Yes [id number] 4mg Take 1 Univers 4 mg 0-12 tablet by ity of disintegrat 00:00: mouth [place] ing tablet 00 every 8 Medica l (eight) Branch hours as needed for Nausea and Vomiting (N/V). dicyclomine 2021-05 Yes [id number] 20mg Take 1 Univers 20 mg 0-12 tablet by ity of tablet 00:00: mouth (four) Medical times Branch daily as needed for Abdominal pain. ondansetron 2021-05 Yes [id number] 4mg Take 1 Univers 4 mg 0-12 tablet by ity of disintegrat 00:00: mouth [place] ing tablet 00 every 8 Medica l (eight) Branch hours as needed for Nausea and Vomiting (N/V). dicyclomine 2021-05 Yes [id number] 20mg Take 1 Univers 20 mg 0-12 tablet by ity of tablet 00:00: mouth 4 (four) Medical times Branch daily as needed for Abdominal pain. ondansetron 2021-05 Yes [id number] 4mg Take 1 Univers 4 mg 0-12 tablet by ity of disintegrat 00:00: mouth [place] ing tablet 00 every 8 Medica l (eight) Branch hours as needed for Nausea and Vomiting (N/V). ketorolac No 30mg 30 mg, Unive rs tromethamin 11-21 Slow IV ity of e (TORADOL) 14:15: 14:15 [place], [place] injection 00 :00 ONCE, 1 Medical 30 mg dose, On Branch [facility] 11/21/21 at 0915, TITA metoclopram No 10mg 10 mg, Uni vers lenora HCl 11-21 Slow IV ity of (REGLAN) 13:15: 13:19 Push, [place] injection 00 :00 ONCE, 1 Medical 10 mg dose, On Branch [facility] 11/21/21 at 0815, TITA NaCl 0.9% No 2000mL at 999 Uni vers (NS) bolus 11-21 mL/hr, ity of infusion 13:15: 14:59 2,000 mL, [place] 2,000 mL 00 :00 IV Medical Infusion, Branch ONCE, 1 dose, On [facility] 11/21/21 at 0815, TITA ondansetron No 4mg 4 mg, Slow Univers (ZOFRAN 11-21 IV Push, ity of (PF)) 12:15: 12:28 ONCE, 1 [place] injection 4 00 :00 dose, On Medi kofi mg [facility] Branch 11/21/21 at 0715, TITA ondansetron Yes [id number] 4mg Take 1 Univers 4 mg 7-14 tablet by ity of disintegrat 00:00: mouth [place] ing tablet 00 every 8 Medica l (eight) Branch hours as needed for Nausea and Vomiting (N/V). ondansetron 2021- No [id number] 4mg Take 1 Univers 4 mg 7-14 10-12 tablet by ity of disintegrat 00:00: 00:00 [...] infusion 2 ONCE, 1 g dose, On 11/19/21 at 1830, Routine metoprolol 2021- No 50mg 50 mg, Univ ers tartrate 11-19 Oral, ONCE ity of (LOPRESSOR) 23:30: 22:40 NOW, 1 [place] tablet 50 00 :00 dose, On Medica l mg [facility] 11/19/21 at 1830, Routine LORazepam 2021- No 1mg 1 mg, Univer s (ATIVAN) 11-19 Oral, ity of tablet 1 mg 22:30: 22:40 ONCE, 1 [place] 00 :[place] dose, On [facility] 11/19/21 at 1730, TITA NaCl 0.9% 2021- No 2000mL at 999 Uni vers (NS) bolus 11-19 mL/hr, ity of infusion 22:15: 23:05 2,000 mL, [place] as 2,000 mL 00 :00 IV Medical Infusion, Branch ONCE, 1 dose, On [facility] 11/19/21 at 1715, TITA ondansetron 2021- No 4mg 4 mg, Slow Univers (ZOFRAN 11-19 IV Push, ity of (PF)) 21:15: 21:22 ONCE, 1 [place] injection 4 00 :00 dose, On Medi kofi mg [facility] 11/19/21 at 1615, TITA LORazepam 2021- No 1mg 1 mg, Univer s (ATIVAN) 10-08 05-31 Oral, ity of tablet 1 mg 04:30: 16:29 ONCE, 1 [place] 00 :[place] dose, On [facility] 10/07/21 at 2330, TITA clonazePAM 2021-0 Yes [id number] 2mg Take 1 Univers (KLONOPIN) 5-30 tablet by ity of 2 mg tablet 00:00: mouth 2 [place] 00 (two) Medical times Branch daily. clonazePAM 2021-0 Yes [id number] 2mg Take 1 Univers (KLONOPIN) 5-30 tablet by ity of 2 mg tablet 00:00: mouth 2 [place] 00 (two) Medical times Branch daily. clonazePAM 2021-0 Yes [id number] 2mg Take 1 Univers (KLONOPIN) 5-30 tablet by ity of 2 mg tablet 00:00: mouth 2 [place] 00 (two) Medical times Branch daily. clonazePAM 2021-0 Yes [id number] 2mg Take 1 Univers (KLONOPIN) 5-30 tablet by ity of 2 mg tablet 00:00: mouth 2 [place] 00 (two) Medical times Branch daily. clonazePAM 2021-0 Yes [id number] 2mg Take 1 Univers (KLONOPIN) 5-30 tablet by ity of 2 mg tablet 00:00: mouth 2 [place] 00 (two) Medical times Branch daily. clonazePAM 2021-0 Yes [id number] 2mg Take 1 Univers (KLONOPIN) 5-30 tablet by ity of 2 mg tablet 00:00: mouth 2 [place] 00 (two) Medical times Branch daily. ketorolac No 15mg 15 mg, Unive rs (TORADOL) 09-30 Slow IV ity of injection 03:45: 02:46 Push, [place] 15 mg 00 :00 ONCE, 1 Medical dose, On [facility] 09/29/21 at 2245, Routine ondansetron No 4mg 4 mg, Slow Univers (ZOFRAN 09-30 IV Push, ity of (PF)) 02:30: 01:55 ONCE, 1 [place] injection 4 00 :00 dose, On Medi kofi mg [facility] 09/29/21 at 2130, TITA acetaminoph 2021- No 650mg 650 mg, U nivers en 09-30 Oral, ity of (TYLENOL) 02:30: 01:55 ONCE, 1 [place] tablet 650 00 :00 dose, On Medic al mg [facility] 09/29/21 at 2130, TITA NaCl 0.9% No 1000mL at 999 Uni vers (NS) bolus 09-30 mL/hr, ity of infusion 02:30: 03:12 1,000 mL, [place] 1,000 mL 00 :00 IV Medical Infusion, Branch ONCE, 1 dose, On 09/29/21 at 2130, TITA metoprolol 2-0 Yes 50mg Take 50 mg U nivers tartrate 50 5-06 by mouth 2 it y of mg tablet 19:45: (two) [place] 15 times Medical daily. Branch metoprolol 2022-0 Yes 50mg Take 50 mg U nivers tartrate 50 5-06 by mouth 2 it y of mg tablet 19:45: (two) [place] 15 times Medical daily. Branch metoprolol 2022-0 Yes 50mg Take 50 mg U nivers tartrate 50 5-06 by mouth 2 it y of mg tablet 19:45: (two) [place] 15 times Medical daily. Branch metoprolol 2022-0 Yes 50mg Take 50 mg U nivers tartrate 50 5-06 by mouth 2 it y of mg tablet 19:45: (two) [place] 15 times Medical daily. Branch metoprolol 2022-0 Yes 50mg Take 50 mg U nivers tartrate 50 5-06 by mouth 2 it y of mg tablet 19:45: (two) [place] 15 times Medical daily. Branch metoprolol 2-0 Yes 50mg Take 50 mg U nivers tartrate 50 5-06 by mouth 2 it y of mg tablet 19:45: (two) [place] 15 times Medical daily. Branch metoprolol 2-0 Yes 50mg Take 50 mg U nivers tartrate 50 5-06 by mouth 2 it y of mg tablet 19:45: (two) [place] 15 times Medical daily. Branch metoprolol 2-0 Yes 50mg Take 50 mg U nivers tartrate 50 5-06 by mouth 2 it y of mg tablet 19:45: (two) [place] 15 times Medical daily. Branch nitroglycer 2021-0 2021- No .8mg 0.8 mg, Un jaqueline in 09-13 05-06 Sublingual ity of (NITROSTAT) 17:45: 16:55 , ONCE, 1 [place] sublingual 00 :00 dose, On Medic al tablet 0.8 Thu09/13/21 Bra nch mg at 1245, Routine metoprolol 2-0 Yes 5mg 5 mg, Univer s (LOPRESSOR) 5-06 Intravenou it y of injection 5 16:35: s, Q5MIN [place] mg 01 PRN, Medical Starting Branch on Thu09/13/21 at 1135, Until Discontinu ed, Routine, for target HR < 65 metoprolol No 50mg 50 mg, Univ ers succinate 09-13 Oral, ity of XL (TOPROL 15:45: 14:58 ONCE, 1 [place] XL) tablet 00 :00 dose, On Medic al 50 mg Thu09/13/21 Branch at 1045, TITA metoprolol No 75mg 75 mg, Univ ers tartrate 09-13 Oral, ity of (LOPRESSOR) 14:00: 12:56 ONCE, 1 [place] tablet 75 00 :00 dose, On Medica l mg Thu09/13/21 Branch at 0900, Routine metoprolol No 75mg 75 mg, Univ ers tartrate 09-12 Oral, Q6H, ity of (LOPRESSOR) 23:00: 11:16 3 doses, [place] tablet 75 00 :00 First dose Medi kofi mg on [facility] Branch 09/12/21 at 1800, Last dose on Thu09/13/21 at 0600, Routine iopamidol No [id number] 81mL 81 mL, U nivers (ISOVUE 09-12 Intravenou ity o f 370-500 mL) 22:00: 17:41 s, ONCE, 1 [place] injection 00 :00 dose, On Medica l 81 mL [facility] 09/12/21 Branch at 1700, Routine metoprolol No 5mg 5 mg, Unive rs (LOPRESSOR) 09-12 Intravenou i ty of injection 5 18:30: 17:26 s, ONCE, 1 [place] mg 00 :00 dose, On Medical [facility] 09/12/21 Branch at 1330, Routine metoprolol No 5mg 5 mg, Unive rs (LOPRESSOR) 09-12 Intravenou i ty of injection 5 17:00: 16:09 s, ONCE, 1 [place] mg 00 :00 dose, On Medical [facility] 09/12/21 Branch at 1200, Routine acetaminoph Yes 650mg 650 mg, Un jaqueline en 5-05 Oral, ity of (TYLENOL) 16:06: Q6HPRN, [place] [...] No 4mg 4 mg, Slow Univers (ZOFRAN 505 05-05 IV Push, ity of (PF)) 14:03: 14:04 ONCE, 1 [place] injection 4 00 :00 dose, On Medi kofi mg [facility] 09/12/21 Branch at 0915, TITA aspirin 81 2021- No [id number] 81mg Take 1 Univers mg chewable 4-30 05-31 tablet by it y of tablet 00:00: 04:59 mouth [place] 00 :00 daily for Medical 30 days. Branch aspirin 81 2021-0 2021- No [id number] 81mg Take 1 Univers mg chewable 4-30 05-31 tablet by it y of tablet 00:00: 04:59 mouth [place] 00 :00 daily for Medical 30 days. Branch aspirin 81 0 2021- No [id number] 81mg Take 1 Univers mg chewable 4-30 05-31 tablet by it y of tablet 00:00: 04:59 mouth [place] 00 :00 daily for Medical 30 days. Branch aspirin 81 0 2021- No [id number] 81mg Take 1 Univers mg chewable 4-30 05-31 tablet by it y of tablet 00:00: 04:59 mouth [place] 00 :00 daily for Medical 30 days. Branch metoprolol Yes 50mg Take 50 mg U nivers tartrate 50 4-29 by mouth 2 it y of mg tablet 16:01: (two) [place] 23 times Medical daily. Branch aspirin Yes 81mg 81 mg, Univers chewable 4-29 Oral, ity of tablet 81 14:00: DAILY, [place] mg 00 First dose Medical on Thu Branch 09/06/21 at 0900, Until Discontinu ed, Routine lisinopriL 2021- No 5mg Take 5 mg U nivers 5 mg tablet 09-06 by mouth 2 i ty of 09:21: 00:00 (two) [place] 02 :00 times Medical daily. [place] atorvastati Yes 40mg 40 mg, Univ ers n (LIPITOR) 4-29 Oral, QHS, it y of tablet 40 02:00: First dose [place] mg 00 on [facility] Medical 09/05/21 at [place] 2100, Until Discontinu ed, Routine metoprolol Yes 50mg 50 mg, Unive rs tartrate 4-29 Oral, BID, ity o f (LOPRESSOR) 01:00: First dose [place] tablet 50 00 on [facility] Medical mg 09/05/21 at [place] 2000, Until Discontinu ed, Routine lisinopriL Yes 5mg 5 mg, Univer s (PRINIVIL,Z - Oral, BID, it y of ESTRIL) 01:00: First dose [place] tablet 5 mg 00 on [facility] Medica l 09/05/21 at [place] 2000, Until Discontinu ed, Routine furosemide 2021- No [id number] 20mg Take 1 Univers 20 mg - 05-30 tablet by ity of tablet 00:00: 04:59 mouth [place] 00 :00 daily for Medical 30 days. [place] furosemide 2021- No [id number] 20mg Take 1 Univers 20 mg - 05-30 tablet by ity of tablet 00:00: 04:59 mouth [place] 00 :00 daily for Medical 30 days. Branch furosemide 0 2021- No [id number] 20mg Take 1 Univers 20 mg 4- 05-30 tablet by ity of tablet 00:00: 04:59 mouth [place] 00 :00 daily for Medical 30 days. [place] furosemide 0 Yes 20mg 20 mg, Unive rs (LASIX) 4- Slow IV ity of injection 22:00: Push, [place] 20 mg 00 Q12H, Medical First dose Branch on [facility] 09/05/21 at 1700, Until Discontinu ed, Routine enoxaparin Yes 40mg 40 mg, Unive rs (LOVENOX) 4-28 Subcutaneo ity of injection 22:00: us, DAILY, [place] 40 mg 00 First dose Medical on [facility] Branch 09/05/21 at 1700, Until Discontinu ed, Routine clonazePAM Yes 2mg 2 mg, Univer s (KLONOPIN) 09-05 Oral, ity of tablet 2 mg 21:47: BIDPRN, [place] 20 Starting Medical on [place] Branch 09/05/21 at 1647, Until Discontinu ed, Routine, anxiety sulfur 2021- No [id number] 5mL 5 mL, Unive rs hexafluorid 09-05 Intravenou i ty of e microsphr 20:15: 20:15 s, ONCE, 1 [place] (LUMASON) 00 :00 dose, On Medica l injection 5 [place] Branch mL 09/05/21 at 1515, Routine
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 Restricted medication : SHERLY FOWLER nitroglycer Yes .4mg 0.4 mg, Uni vers in 09-05 Sublingual ity of (NITROSTAT) 17:35: , Q5MIN [place] sublingual 52 PRN, Medical tablet 0.4 Starting Branc h mg on [facility] 09/05/21 at 1235, Until Discontinu ed, Routine, Chest pain morpHINE 2021- No 2mg 2 mg, Slow Un jaquelnie injection 2 09-05 IV Push, ity of mg 17:35: 17:34 Q4HPRN, [place] 26 :26 Starting Medical on [facility] Branch 09/05/21 at 1235, Until Thu09/06/21 at 1234, Routine, Pain (scale 7-10), Chest pain acetaminoph Yes 650mg 650 mg, Un jaqeuline en 09-05 Oral, ity of (TYLENOL) 17:35: Q6HPRN, [place] tablet 650 22 Starting Medic al mg on [facility] Branch 09/05/21 at 1235, Until Discontinu ed, Routine, Pain (scale 1-3) nitroglycer 2021- No .4mg 0.4 mg, Un jaqueline in 09-05 Sublingual ity of (NITROSTAT) 16:30: 15:42 , ONCE, 1 [place] sublingual 00 :00 dose, On Medic al tablet 0.4 [facility] Branch mg 09/05/21 at 1130, TITA aspirin 2021- No 324mg 324 mg, Unive rs chewable 09-05 Oral, ity of tablet 324 16:30: 15:42 ONCE, 1 [place] mg 00 :00 dose, On Medical Thu Branch 09/05/21 at 1130, Routine atorvastati Yes [...] Branch 08/06/21 at 2000, Last dose on 08/10/21 at 0800, Routine atorvastati 2021- No [id number] 40mg Take 1 Univers n 40 mg 08-07-30 tablet by ity of tablet 00:00: 04:59 mouth at [place] 00 :00 bedtime Medical for 30 Branch days. atorvastati 2021- No [id number] 40mg Take 1 Univers n 40 mg 3-30 04-30 tablet by ity of tablet 00:00: 04:59 mouth at [place] 00 :00 bedtime Medical for 30 Branch days. butalbital- Yes 1{tbl} 1 tablet, Univers acetaminoph 08-06 Oral, ity of en-caff 21:36: Q6HPRN, [place] (ESGIC) 42 Starting Medical 50-325-40 on Thu Branch mg tablet 1 08/06/21 at tablet 1636, Until Discontinu ed, Routine, Headache sulfur 2021- No [id number] 5mL 5 mL, Unive rs hexafluorid 08-06 Intravenou i ty of e microsphr 21:00: 21:00 s, ONCE, 1 [place] (LUMASON) 00 :00 dose, On Medica l injection 5 Tue Branch mL 08/06/21 at 1600, Routine
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 Restricted medication : MALCOLMSHERLY magnesium 2021- No 2g 2 g, IV Univ ers sulfate in 08-06 Piggyback, it y of water 2 15:15: 17:03 Administer [place] as gram/50 mL 00 :00 over 60 Medica l (4 %) Minutes, Branch infusion 2 ONCE, 1 g dose, On Thu08/06/21 at 1015, Routine iopamidol 2021- No [id number] 100mL 100 mL, Univers (ISOVUE 08-06 Intravenou [...] [place] 40 Starting Medical on Thu [place] 08/05/21 at 2121, Until Discontinu ed, Routine, [...] at 1800, Until Discontinu ed, Routine enoxaparin 0 Yes 40mg 40 mg, Unive rs (LOVENOX) 08-05 Subcutaneo ity of injection 22:00: [place], [place]ILY, [place] 40 mg 00 First dose Medical on Thu [place] 08/05/21 at 1700, Until Discontinu ed, Routine LORazepam 0 2021- No .5mg 0.5 mg, Univ ers (ATIVAN) 08-05 Oral, ity of tablet 0.5 20:45: 19:54 ONCE, 1 [place] mg 00 :00 dose, On Medical [facility] 08/05/21 at 1545, TITA nicotine 2021-0 Yes 1{patch 1 Patch, Un jaqueline (NICODERM) 08-05 } Topical, ity o f 7 mg/24 hr 20:15: Administer [place] patch 1 00 over 24 Medical Patch Hours, Branch Q24H, First dose on Thu08/05/21 at 1515, Until Discontinu ed, Routine furosemide 2021-0 2022- No 40mg 40 mg, IV U nivers (LASIX) 08-05 Push, ity of injection 19:30: 18:59 ONCE, 1 [place] 40 mg 00 :00 dose, On Medical Mon Branch 08/05/21 at 1430, TITA HYDROcodone 2021-2021- No 1{tbl} 1 tablet, Univers -acetaminop 08-05 Oral, ity of hen (NORCO 18:59: 18:58 Q6HPRN, [place] 5) 5-325 mg 00 :00 Starting Medi kofi tablet 1 on Thu Branch tablet 08/05/21 at 1359, Until 08/07/21 at 1358, Routine, Pain (scale 4-6) acetaminoph Yes 650mg 650 mg, Un jaqueline en 08-05 Oral, ity of (TYLENOL) 18:58: Q6HPRN, [place] tablet 650 56 Starting Medic al mg [...] 1 [place] 00 :00 dose, On Medical [facility] Branch 08/05/21 at 1200, STAT LORazepam 2021- No 2mg 2 mg, Univer s (ATIVAN) 06-05 Oral, ity of tablet 2 mg 16:30: 15:22 ONCE, 1 [place] 00 :00 dose, On Medical Thu Branch 06/05/21 at 1030, TITA lisinopriL Yes 5mg Take 5 mg Un jaqueline 5 mg tablet 06-05 by mouth 2 it y of 09:13: (two) [place] 22 times Medical daily. Branch Last dose given in ED hydroCHLORO Yes [id number] 25mg Take 1 Univers thiazide 25 1-17 tablet by ity of mg tablet 00:00: mouth [place] 00 every Medical morning. Branch hydroCHLORO Yes [id number] 25mg Take 1 Univers thiazide 25 1-17 tablet by ity of mg tablet 00:00: mouth [place] 00 every Medical morning. Branch hydroCHLORO 2021- No [id number] 25mg Take 1 Univers thiazide 25 17 -28 tablet by it y of mg [...] First dose [place] mg 00 on [facility] 05/05/21 Branch at 2100, Until Discontinu ed, Routine aspirin 81 2020-05- No [id number] 81mg Take 1 Univers mg chewable 2-06 06- tablet by it y of tablet 00:00: 05:59 mouth [place] 00 :00 daily with Medical breakfast Branch for 30 days. aspirin 81 2020-05- No [id number] 81mg Take 1 Univers mg chewable 2-06 06- tablet by it y of tablet 00:00: 05:59 mouth [place] 00 :00 daily with Medical breakfast Branch for 30 days. aspirin 81 2020-05- No [id number] 81mg Take 1 Univers mg chewable 2-27 - tablet by it y of tablet 00:00: 05:59 mouth [place] 00 :00 daily with Medical breakfast Branch for 30 days. aspirin 81 2020-05- No [id number] 81mg Take 1 Univers mg chewable 2-27 - tablet by it y of tablet 00:00: 05:59 mouth [place] 00 :00 daily with Medical breakfast Branch for 30 days. enoxaparin 2020-05 Yes 30mg 30 mg, Unive rs (LOVENOX) 2-26 Subcutaneo ity of injection 23:00: us, DAILY, [place] 30 mg 00 First dose Medical on [facility] 05/05/21 at 1700, Until Discontinu ed, Routine magnesium 2020-05 4g 4 g, IV Univ ers sulfate in 07-06 Piggyback, it y of water 4 16:00: 15:35 ONCE, 1 [place] gram/50 mL 00 :00 dose, On Medic al (8 %) IV [facility] Branch Piggyback 4 05/05/21 g at 1000, [...] 00 BREAKFAST, Medical First dose Branch on [facility] 05/05/21 at 0800, Until Discontinu ed, Routine lisinopriL 2020-05 Yes 10mg 10 mg, Unive rs (PRINIVIL,Z 07-06 Oral, BID, it y of ESTRIL) 14:00: First dose [place] tablet 10 00 (after Medical mg last Branch modificati on) on [facility] 05/05/21 at 0800, Until Discontinu ed, Routine metoprolol 2020-05 Yes 50mg 50 mg, Unive rs tartrate 07-06 Oral, BID, ity o f (LOPRESSOR) 14:00: First dose [place] tablet 50 00 on [facility] Medical mg 05/05/21 Branch at 0800, Until Discontinu ed, Routine docusate 2020-05 Yes 100mg 100 mg, Unive rs (COLACE) 07-06 Oral, BID, ity o f capsule 100 14:00: First dose [place] mg 00 on [facility] Medical 05/05/21 Branch at 0800, Until Discontinu [...] BIDPRN, [place] 22 Starting Medical on [facility] 05/05/21 at 0628, Until Discontinu ed, anxiety, insomnia ondansetron 2020-05 Yes 4mg 4 mg, Slow Univers (ZOFRAN 07-06 IV Push, ity of (PF)) 08:29: Q6HPRN, [place] injection 4 21 Starting Medi kofi mg on [facility] 05/05/21 at 0229, Until Discontinu ed, Routine, Nausea and Vomiting (N/V) lisinopriL 2020-05- No 10mg 10 mg, Univ ers (PRINIVIL,Z 07-06 Oral, ity of ESTRIL) 07:00: 05:55 ONCE, 1 [place] tablet 10 00 :00 dose, On Medica l mg [facility] 05/05/21 at 0100, Routine ketorolac 2020-05 No 15mg 15 mg, Unive rs (TORADOL) 07-06 Slow IV ity of injection 05:45: 04:44 Push, [place] 15 mg 00 :00 ONCE, 1 Medical dose, On Branch 05/04/21 at 2345, TITA LORazepam 2020-05- No 1mg 1 mg, Slow U nivers (ATIVAN) 07-06 IV Push, ity of injection 1 02:45: 02:01 ONCE, 1 [place] mg 00 :00 dose, On Medical Sat [place] 05/04/21 at 2045, STAT atorvastati 2020-05- No [id number] 20mg Take 1 Univers n 20 mg 07-06 tablet by ity of tablet 00:00: 05:59 mouth at [place] 00 :00 bedtime Medical for 20 Branch days. FENTanyl PF 2020-05 No 50ug 50 mcg, Un jaqueline (SUBLIMAZE 05-31 Intramuscu it y of (PF)) 15:45: 14:44 lar, ONCE, [place] injection 00 :00 1 dose, On Medi kofi 50 mcg [facility] 03/31/21 at 0945, Routine moxifloxaci 2020-05- No [id number] 400mg Take 1 Univers n 400 mg 0-11 03-01 tablet by ity o f tablet 00:00: 04:59 mouth [place] 00 :00 daily for Medical 10 days. [place] chlorphenir 2021-0 Yes [id number] 4mg Take 1 Univers amine 4 mg 9-16 tablet by ity of tablet 00:00: mouth [place] 00 every 6 Medical (six) Branch hours as needed for Allergies or Runny nose. calcium/mag 2020-0 Yes [id number] 1{each} Take 1 Univers nesium/zinc 9-16 Each by ity o f (CALCIUM-MA 00:00: mouth [place] GNESUIUM-ZI 00 daily. Medica l [place]) Branch 333-133-5 mg Tab benzonatate 2020-0 Yes [id number] 100mg Take 1 Univers 100 mg 9-16 capsule by ity of capsule 00:00: mouth 3 [place] 00 (three) Medical times Branch daily as needed for Cough. ondansetron 2020-0 Yes [id number] 4mg Take 1 Univers 4 mg 9-16 tablet by ity of disintegrat 00:00: mouth [place] ing tablet 00 every 8 Medica l (eight) Branch hours as needed for Nausea and Vomiting (N/V). chlorphenir 2020-0 Yes [id number] 4mg Take 1 Univers amine 4 mg 9-16 tablet by ity of tablet 00:00: mouth [place] 00 every 6 Medical (six) Branch hours as needed for Allergies or Runny nose. calcium/mag 2020-0 Yes [id number] 1{each} Take 1 Univers nesium/zinc 9-16 Each by ity o f (CALCIUM-MA 00:00: mouth [place] GNESUIUM-ZI 00 daily. Medica l [place]) Branch 333-133-5 mg Tab benzonatate 2020-0 Yes [id number] 100mg Take 1 Univers 100 mg 9-16 capsule by ity of capsule 00:00: mouth 3 [place] 00 (three) Medical times Branch daily as needed for Cough. ondansetron 2020-0 Yes [id number] 4mg Take 1 Univers 4 mg 9-16 tablet by ity of disintegrat 00:00: mouth [place] ing tablet 00 every 8 Medica l (eight) Branch hours as needed for Nausea and Vomiting (N/V). chlorphenir 2020-0 Yes [id number] 4mg Take 1 Univers amine 4 mg 9-16 tablet by ity of tablet 00:00: mouth [place] 00 every 6 Medical (six) Branch hours as needed for Allergies or Runny nose. calcium/mag 2020-0 Yes [id number] 1{each} Take 1 Univers nesium/zinc 9-16 Each by ity o f (CALCIUM-MA 00:00: mouth [place] GNESUIUM-ZI 00 daily. Medica l [place]) Branch 333-133-5 mg Tab benzonatate 2020-0 Yes [id number] 100mg Take 1 Univers 100 mg 9-16 capsule by ity of capsule 00:00: mouth 3 [place] 00 (three) Medical times Branch daily as needed for Cough. ondansetron 2020-0 Yes [id number] 4mg Take 1 Univers 4 mg 9-16 tablet by ity of disintegrat 00:00: mouth [place] ing tablet 00 every 8 Medica l (eight) Branch hours as needed for Nausea and Vomiting (N/V). chlorphenir 2020-0 Yes [id number] 4mg Take 1 Univers amine 4 mg 9-16 tablet by ity of tablet 00:00: mouth [place] 00 every 6 Medical (six) Branch hours as needed for Allergies or Runny nose. calcium/mag 2020-0 Yes [id number] 1{each} Take 1 Univers nesium/zinc 9-16 Each by ity o f (CALCIUM-MA 00:00: mouth [place] GNESUIUM-ZI 00 daily. Medica l [place]) Branch 333-133-5 mg Tab benzonatate 2020-0 Yes [id number] 100mg Take 1 Univers 100 mg 9-16 capsule by ity of capsule 00:00: mouth 3 [place] 00 (three) Medical times Branch daily as needed for Cough. ondansetron 2020-0 Yes [id number] 4mg Take 1 Univers 4 mg 9-16 tablet by ity of disintegrat 00:00: mouth [place] ing tablet 00 every 8 Medica l (eight) Branch hours as needed for Nausea and Vomiting (N/V). azithromyci 2020-0 Yes [id number] 250mg Take 1 Univers n 9-16 tablet by ity of (ZITHROMAX 00:00: mouth [place] Z-REFUGIO) 250 00 SEE-INSTRU Med ical mg tablet CTIONS. Branch Take 500 mg day 1, then 250 mg days 2 to 5. chlorphenir 2020-0 Yes [id number] 4mg Take 1 Univers amine 4 mg 9-16 tablet by ity of tablet 00:00: mouth [place] 00 every 6 Medical (six) Branch hours as needed for Allergies or Runny nose. calcium/mag 2020-0 Yes [id number] 1{each} Take 1 Univers nesium/zinc 9-16 Each by ity o f (CALCIUM-MA 00:00: mouth [place] GNESUIUM-ZI 00 daily. Medica l [place]) Branch 333-133-5 mg Tab benzonatate 2020-0 Yes [id number] 100mg Take 1 Univers 100 mg 9-16 capsule by ity of capsule 00:00: mouth 3 [place] 00 (three) Medical times Branch daily as needed for Cough. ondansetron 0 Yes [id number] 4mg Take 1 Univers 4 mg 9-16 tablet by ity of disintegrat 00:00: mouth [place] ing tablet 00 every 8 Medica l (eight) Branch hours as needed for Nausea and Vomiting (N/V). azithromyci Yes [id number] 250mg Take 1 Univers n 9-16 tablet by ity of (ZITHROMAX 00:00: mouth [place] Z-REFUGIO) 250 00 SEE-INSTRU Med ical mg tablet CTIONS. Branch Take 500 mg day 1, then 250 mg days 2 to 5. chlorphenir Yes [id number] 4mg Take 1 Univers amine 4 mg 9-16 tablet by ity of tablet 00:00: mouth [place] 00 every 6 Medical (six) Branch hours as needed for Allergies or Runny nose. calcium/mag 2020- Yes [id number] 1{each} Take 1 Univers nesium/zinc 9-16 Each by ity o f (CALCIUM-MA 00:00: mouth [place] GNESUIUM-ZI 00 daily. Medica l [place]) Branch 333-133-5 mg Tab benzonatate 2020-0 Yes [id number] 100mg Take 1 Univers 100 mg 9-16 capsule by ity of capsule 00:00: mouth 3 [place] 00 (three) Medical times Branch daily as needed for Cough. ondansetron 2020-0 Yes [id number] 4mg Take 1 Univers 4 mg 9-16 tablet by ity of disintegrat 00:00: mouth [place] ing tablet 00 every 8 Medica l (eight) Branch hours as needed for Nausea and Vomiting (N/V). chlorphenir 2020-0 Yes [id number] 4mg Take 1 Univers amine 4 mg 9-16 tablet by ity of tablet 00:00: mouth [place] 00 every 6 Medical (six) Branch hours as needed for Allergies or Runny nose. calcium/mag 2020-0 Yes [id number] 1{each} Take 1 Univers nesium/zinc 9-16 Each by ity o f (CALCIUM-MA 00:00: mouth [place] GNESUIUM-ZI 00 daily. Medica l [place]) Branch 333-133-5 mg Tab benzonatate 2020-0 Yes [id number] 100mg Take 1 Univers 100 mg 9-16 capsule by ity of capsule 00:00: mouth 3 [place] 00 (three) Medical times Branch daily as needed for Cough. ondansetron 2020-0 Yes [id number] 4mg Take 1 Univers 4 mg 9-16 tablet by ity of disintegrat 00:00: mouth [place] ing tablet 00 every 8 Medica l (eight) Branch hours as needed for Nausea and Vomiting (N/V). chlorphenir 2020-0 Yes [id number] 4mg Take 1 Univers amine 4 mg 9-16 tablet by ity of tablet 00:00: mouth [place] 00 every 6 Medical (six) Branch hours as needed for Allergies or Runny nose. calcium/mag 2020-0 Yes [id number] 1{each} Take 1 Univers nesium/zinc 9-16 Each by ity o f (CALCIUM-MA 00:00: mouth [place] GNESUIUM-ZI 00 daily. Medica l [place]) Branch 333-133-5 mg Tab benzonatate 2020-0 Yes [id number] 100mg Take 1 Univers 100 mg 9-16 capsule by ity of capsule 00:00: mouth 3 [place] 00 (three) Medical times Branch daily as needed for Cough. ondansetron 2020-0 Yes [id number] 4mg Take 1 Univers 4 mg 9-16 tablet by ity of disintegrat 00:00: mouth [place] ing tablet 00 every 8 Medica l (eight) Branch hours as needed for Nausea and Vomiting (N/V). chlorphenir 1-0 2021- No [id number] 4mg Take 1 Univers amine 4 mg 9-16 03-28 tablet by ity of tablet 00:00: 00:00 mouth [place] 00 :00 every 6 Medical (six) Branch hours as needed for Allergies or Runny nose. calcium/mag 2020-0 202- No [id number] 1{each} Take 1 Univers nesium/zinc 9-16 03-28 Each by ity of (CALCIUM-MA 00:00: 00:00 mouth [place] GNESUIUM-ZI 00 :00 daily. Medica l [place]) Branch 333-133-5 mg Tab benzonatate 2021- No [id number] 100mg Take 1 Univers 100 mg 01-24 capsule by ity of capsule 00:00: 00:00 mouth 3 [place] 00 :00 (three) Medical times Branch daily as needed for Cough. ondansetron 2021- No [id number] 4mg Take 1 Univers 4 mg 01-24 tablet by ity of disintegrat 00:00: 00:00 mouth [place] ing tablet 00 :00 every 8 Medica l (eight) Branch hours as needed for Nausea and Vomiting (N/V). vitamin 2020- No [id number] 1{tbl} Take 1 Univers D3-folic 9-16 10-17 tablet by ity o f acid 125 00:00: 04:59 mouth [place] mcg (5,000 00 :00 daily for Medi kofi unit)-1 mg 30 days. Branc h Tab vitamin 2020- No [id number] 1{tbl} Take 1 Univers D3-folic 9-16 10-17 tablet by ity o f acid 125 00:00: 04:59 mouth [place] mcg (5,000 00 :00 daily for Medi kofi unit)-1 mg 30 days. Branc h Tab vitamin 2020- No [id number] 1{tbl} Take 1 Univers D3-folic 9-16 10-17 tablet by ity o f acid 125 00:00: 04:59 mouth [place] mcg (5,000 00 :00 daily for Medi kofi unit)-1 mg 30 days. Branc h Tab azithromyci 2020- No [id number] 250mg Take 1 Univers n 9-16 10-11 [...] mL 00 :00 Piggyback, Medical ONCE, 1 [place] dose, Thu12/07/20 at 0945, STAT metoprolol 2020- No 50mg Take 50 mg Univers succinate 10-28 06-20 by mouth 2 ity of XL (TOPROL 14:52: 00:00 (two) [place] XL) 25 mg 24 :00 times Medical 24 hr daily. [place] tablet diazePAM 2020- No 10mg Take 10 mg Un jaqueline (VALIUM) 10 10-2820 by mouth 2 i ty of mg tablet 14:52: 00:00 (two) [place] 24 :00 times Medical daily. [place] cyanocobala Yes 1000ug 1,000 mcg, Univers min 18 Subcutaneo ity of (VITAMIN 22:00: us, Q24H, [place] B12) 00 First dose Medical injection on Thu [place] 1,000 mcg 10/26/20 at 1700, Until Discontinu ed, Routine chlordiazeP Yes 25mg 25 mg, Univ ers OXIDE 18 Oral, TID, ity of (LIBRIUM) 21:00: First dose [place] capsule 25 00 on Thu Medical mg 10/26/20 at Branch 1600, Until Discontinu ed, Routine cholecalcif Yes 2000U 2,000 Univ ers becka 6-18 Units, ity of (vitamin 21:00: Oral, [place] D3) tablet 00 DAILY, Medical 2,000 Units [...] Pura Medi kofi (4 %) 10/25/20 at [place] infusion 2 1945, g Routine potassium 2020- No 10meq 10 mEq, IV Univers chloride in 10-26 Piggyback, i ty of water 10 00:00: 05:40 Q1H, 5 [place] mEq/100 mL 00 :00 doses, Medical RTU 10 mEq First dose Bra nch on [facility] 10/25/20 at 1900, Last dose on [facility] 10/25/20 at 2300, 100 mL diazePAM 2020- No 10mg 10 mg, Univer s (VALIUM) 10-25 Intravenou ity of injection 22:45: 21:59 s, ONCE, 1 [place] 10 mg 00 :00 dose, [facility] Medical 10/25/20 at Branch 1745, TITA carvediloL Yes 12.5mg 12.5 mg, U nivers (COREG) 10-25 Oral, BID ity of tablet 12.5 22:00: MEALS, [place] mg 00 First dose Medical on [facility] 10/25/20 at 1700, Until Discontinu ed, Routine LORazepam 2020- No 2mg 2 mg, Slow U nivers (ATIVAN) 10-25 IV Push, ity of injection 2 18:00: 17:21 ONCE, 1 [place] mg 00 :00 dose, [facility] Medical 10/25/20 at Branch 1300, Routine HYDROcodone Yes 1{tbl} 1 tablet, Univers -acetaminop 10-25 Oral, ity of hen (NORCO 16:49: Q6HPRN, [place] 5) 5-325 mg [address] [facility] kofi tablet 1 [facility] tablet 10/25/20 at 1149, Until Discontinu ed, Routine, Pain (scale 7-10) hydralAZINE Yes 10mg 10 mg, Univ ers (APRESOLINE 10-25 Slow IV ity o f ) injection 16:48: Push, [place] 10 mg 34 Q6HPRN, Medical Starting Branch [facility] 10/25/20 at 1148, Until Discontinu ed, Routine, DBP=>100; SBP=>160, For SBP > 160
Ind ication: Hypertensi ve Emergency labetaloL Yes 20mg 20 mg, Univer s (NORMODYNE) 10-25 Slow IV ity o f injection 14:58: Push, [place] 20 mg 25 Q6HPRN, Medical Starting Branch [facility] 10/25/20 at 0958, Until Discontinu ed, TITA, For SBP > 170 or DBP > 105 diazePAM 2020-0 2020- No 10mg 10 mg, Univer s (VALIUM) 10-25 Intravenou ity of injection 14:30: 13:45 s, ONCE, 1 [place] 10 mg 00 :00 dose, [facility] 10/25/20 at Branch 0930, STAT escitalopra Yes 10mg 10 mg, Univ ers m oxalate 10-25 Oral, ity of (LEXAPRO) 14:00: DAILY, [place] tablet 10 00 First dose Medi kofi mg on [facility] Branch 10/25/20 at 0900, Until Discontinu ed, Routine pantoprazol Yes 40mg 40 mg, Univ ers e 10-25 Oral, ity of (PROTONIX) 14:00: DAILY, [place] EC tablet 00 First dose Medi kofi 40 mg on [facility] Branch 10/25/20 at 0900, Until Discontinu ed, Routine acetaminoph Yes 650mg 650 mg, Un jaqueline en 10-25 Oral, ity of (TYLENOL) 13:42: Q6HPRN, [place] tablet 650 14 Starting Medic al mg [facility] 10/25/20 at 0842, Until Discontinu ed, Routine, Pain (scale 1-3), Temp > 38.5 C magnesium 2020- No 400mg 400 mg, Uni vers oxide 10-25 Oral, BID, ity of (MAG-OX 13:30: 12:59 8 doses, [place] 400) tablet 00 :00 First dose Me dical 400 mg on [facility] Branch 10/25/20 at 0830, Last dose on [facility] 10/28/20 at 2000, Routine LORazepam 2020-0 2020- No 1mg 1 mg, Slow U nivers (ATIVAN) 10-25 IV Push, ity of injection 1 05:30: 04:30 ONCE, 1 [place] mg 00 :00 dose, [facility] 10/25/20 at Branch 0030, Routine [...] Until Discontinu ed, Routine sulfur 2020- No [id number] 5mL 5 mL, Unive rs hexafluorid 10-24 Intravenou i ty of e microsphr 21:15: 21:15 s, ONCE, 1 [place] (LUMASON) 00 :00 dose, Thu Medic al injection 5 10/24/20 at Br anch mL 1615, Routine
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 Restricted medication : JASPREET GOFF proMETHazin [...] 00 :00 ONCE, 1 Medical dose, [facility] 10/24/20 at 1200, TITA lactated 2020- No 30mL/kg at 999 Uni vers ringers IV 10-24 mL/hr, ity of infusion 16:45: 18:17 2,925 mL [place] 2,925 mL 00 :00 (30 mL/kg Medica l ?97.5 kg), [place] IV Infusion, ONCE, 1 dose, [facility] 10/24/20 at 1145, STAT glucagon [...] injection 42 Starting Medica l 25 mL [facility] Branch 10/24/20 at 1143, Until Discontinu [...] IV Push, ity of (PF)) 14:58: Q6HPRN, [place] injection 4 39 Starting Medi kofi mg Thu [place] 10/24/20 at 0958, Until Discontinu ed, Routine, [...] s 00 First dose Medical on Thu [place] 10/24/20 at 0900, Until Discontinu ed, Routine [...] mg 00 :00 ONCE, 1 Medical dose, [facility] Branch 10/24/20 at 0845, TITA oxazepam 2020- No 15mg 15 mg, Univer s (SERAX) 10-24 Oral, ity of capsule 15 13:40: 20:57 Q4HPRN, [place] mg 38 :53 Starting Medical [facility] Branch 10/24/20 at 0840, Until Thu10/26/20 at 1557, Routine, Only while awake for DBP equal to or greater than 100, HR equal to or greater than 100. iopamidol 2020- No [id number] 100mL 100 mL, Univers (ISOVUE 10-24 Intravenou ity o f 370-500 mL) 13:00: 11:40 s, ONCE, 1 [place] injection 00 :00 dose, Thu Medic al 100 mL 10/24/20 at Branch 0800, Routine LORazepam 2020-2020- No 1mg 1 mg, Slow U nivers (ATIVAN) 10-2416 IV Push, ity of injection 1 13:00: 11:54 ONCE, 1 [place] mg 00 :00 dose, [facility] Medical 10/24/20 at Branch 0800, STAT NaCl 0.9% 2020- No 1000mL at 999 Uni vers (NS) bolus 10-24 mL/hr, ity of infusion 11:30: 11:27 1,000 mL, [place] 1,000 mL 00 :00 IV Medical Infusion, [place] ONCE, 1 dose, [facility] 10/24/20 at 0630, STAT metoprolol 2020-2020- No 5mg 5 mg, Slow Univers (LOPRESSOR) 07-29 IV Push, ity of injection 5 00:30: 23:26 ONCE, 1 [place] mg 00 :00 dose, [facility] 07/28/20 at Branch 1930, TITA NaCl 0.9% 2020- No 1000mL at 999 Uni vers (NS) bolus 07-28-21 mL/hr, ity of infusion 22:15: 00:55 1,000 mL, [place] 1,000 mL 00 :00 IV Medical Infusion, Branch ONCE, 1 dose, [facility] 07/28/20 at 1715, STAT LORazepam 2020-0 2020- No 1mg 1 mg, Slow U nivers (ATIVAN) 07-28-20 IV Push, ity of injection 1 22:15: 21:18 ONCE, 1 [place] mg 00 :00 dose, [facility] Medical 07/28/20 at Branch 1715, STAT LORazepam 2020-0 2020- No 1mg 1 mg, Slow U nivers (ATIVAN) 07-28-20 IV Push, ity of injection 1 19:31: 19:31 ONCE, 1 [place] mg 00 :00 dose, [facility] Medical 07/28/20 at Branch 1445, STAT LORazepam [...] dose, 06/30/20 at 0600, TITA metoprolol Yes [id number] 50mg Take 2 U nivers tartrate 25 2-20 tablets by it y of mg tablet 00:00: mouth [place] (two) Medical times Branch daily. metoprolol Yes [id number] 50mg Take 2 U nivers tartrate 25 2-20 tablets by it y of mg tablet 00:00: mouth [place] (two) Medical times Branch daily. metoprolol 0 Yes [id number] 50mg Take 2 U nivers tartrate 25 2-20 tablets by it y of mg tablet 00:00: mouth [place] (two) Medical times Branch daily. metoprolol 2020-0 Yes [id number] 50mg Take 2 U nivers tartrate 25 2-20 tablets by it y of mg tablet 00:00: mouth [place] (two) Medical times Branch daily. metoprolol 2020-0 Yes [id number] 50mg Take 2 U nivers tartrate 25 2-20 tablets by it y of mg tablet 00:00: mouth [place] (two) Medical times Branch daily. metoprolol 2020-0 Yes [id number] 50mg Take 2 U nivers tartrate 25 2-20 tablets by it y of mg tablet 00:00: mouth [place] (two) Medical times Branch daily. metoprolol 2020-0 Yes [id number] 50mg Take 2 U nivers tartrate 25 2-20 tablets by it y of mg tablet 00:00: mouth (two) Medical times Branch daily. metoprolol 2020-0 Yes [id number] 50mg Take 2 U nivers tartrate 25 2-20 tablets by it y of mg tablet 00:00: mouth (two) Medical times Branch daily. metoprolol 2020-0 Yes [id number] 50mg Take 2 U nivers tartrate 25 2-20 tablets by it y of mg tablet 00:00: mouth (two) Medical times Branch daily. metoprolol 2020-0 Yes [id number] 50mg Take 2 U nivers tartrate 25 2-20 tablets by it y of mg tablet 00:00: mouth (two) Medical times Branch daily. metoprolol 2020-0 Yes [id number] 50mg Take 2 U nivers tartrate 25 2-20 tablets by it y of mg tablet 00:00: mouth (two) Medical times Branch daily. metoprolol 2020-0 Yes [id number] 50mg Take 2 U nivers tartrate 25 2-20 tablets by it y of mg tablet 00:00: mouth (two) Medical times Branch daily. metoprolol 2020- Yes [id number] 50mg Take 2 U nivers tartrate 25 2-20 tablets by it y of mg tablet 00:00: mouth (two) Medical times Branch daily. metoprolol 2021- No [id number] 50mg Take 2 Univers tartrate 25 2-20 03-30 tablets by i ty of mg tablet 00:00: 00:00 mouth 2 [place] 00 :00 (two) Medical times Branch daily. ibuprofen 2020-2020- No 600mg 600 mg, Uni vers (IBU) 06-23 Oral, ity of tablet 600 21:15: 20:35 ONCE, 1 [place] mg 00 :00 dose, Sat Medical 06/23/20 at Branch 1515, TITA ibuprofen 2020-0 Yes [id number] 600mg Take 1 Univers 600 mg 06-23 [id number] tablet by ity of tablet 00:00: mouth 00 every 6 Medical (six) Branch hours as needed for Pain (scale 4-6). ibuprofen 2020-0 Yes [id number] 600mg Take 1 Univers 600 mg 2-13 [id number] tablet by ity of tablet 00:00: mouth [place] 00 every 6 Medical (six) Branch hours as needed for Pain (scale 4-6). ibuprofen Yes [id number] 600mg Take 1 Univers 600 mg 2-13 [id number] tablet by ity of tablet 00:00: mouth [place] 00 every 6 Medical (six) Branch hours as needed for Pain (scale 4-6). ibuprofen 2020- No [id number] 600mg Take 1 Univers 600 mg 2-13 -20 [id number] tablet by ity o f tablet 00:00: 00:00 mouth [place] 00 :00 every 6 Medical (six) Branch hours as needed for Pain (scale 4-6). venlafaxine 2019- No [id number] 225mg QD Take 3 M ethodi XR 02-[address] (EFFEXOR-XR 00:00: 04:59 (225 mg Ho sp[facility] ) 75 MG 24 00 :00 total) by l hr capsule mouth every morning for 7 days .major depressive disorder. nicotine 2019- No [id number] 2mg Q2H Chew 1 Metho di polacrilex 01-31 each ([address] (NICORETTE) 00:00: 04:59 total) [facility] 2 mg gum 00 :00 every 2 l (two) hours as needed for smoking cessation for up to 30 days .stop smoking. metoprolol 2019- No [id number] 50mg Q.5D Take 1 Met hodi tartrate 01-31 tablet (50 st (LOPRESSOR) 00:00: 04:59 mg total) [facility]osp[facility] 50 mg 00 :00 by mouth l tablet BID at 0700, 1900 for 30 days .high blood pressure. busPIRone 2019- No [id number] 7.5mg Q.5D Take 1 Met hodi (BUSPAR) 01-[address] 7.5 MG 00:00: 04:59 (7.5 mg [facility] tablet 00 :00 total) by l mouth 2 (two) times a day for 7 days .repeated episodes of anxiety. sodium 2019- Yes 5mL 5 mL, Univers chloride 702 Intravenou ity o f (NS) 04:17: s, PRN, [place] injection 5 55 Starting Medi kofi mL 11/09/19 Branch at 2317, Until Discontinu ed, Routine, IV line flushing dicyclomine 2020-0 2020- No 20mg 20 mg, Uni vers (BENTYL) -28 09-21 Oral, ity of capsule 20 16:00: 15:16 [...] 1,000 mL 00 :00 IV Medical Piggyback, [place] ONCE, 1 dose, [facility] 09/29/19 at 1100, STAT loperamide 2020-0 Yes 2mg 2 mg, Univer s (IMODIUM 5-21 Oral, ity of A-D) 14:53: Q4HPRN, [place] capsule 2 46 Starting Medica l mg [facility] 09/29/19 at 0953, Until Discontinu ed, Routine, Diarrhea ondansetron 2020-0 Yes [id number] 4mg Take 1 U nivers 4 mg 5-21 tablet by ity of disintegrat 00:00: mouth [place] ing tablet 00 every 8 Medica l (eight) Branch hours as needed for Nausea and Vomiting (N/V). loperamide 2020-0 Yes [id number] 2mg Take 1 Un jaqueline 2 mg 5-21 capsule by ity of capsule 00:00: mouth [place] 00 every 4 Medical (four) Branch hours as needed for Diarrhea. Not to exceed 16mg daily. ondansetron 2020-0 Yes [id number] 4mg Take 1 U nivers 4 mg 5-21 tablet by ity of disintegrat 00:00: mouth [place] ing tablet 00 every 8 Medica l (eight) Branch hours as needed for Nausea and Vomiting (N/V). loperamide 2020-0 Yes [id number] 2mg Take 1 Un jaqueline 2 mg 5-21 capsule by ity of capsule 00:00: mouth [place] 00 every 4 Medical (four) Branch hours as needed for Diarrhea. Not to exceed 16mg daily. ondansetron 2020-0 Yes [id number] 4mg Take 1 U nivers 4 mg 5-21 tablet by ity of disintegrat 00:00: mouth [place] ing tablet 00 every 8 Medica l (eight) Branch hours as needed for Nausea and Vomiting (N/V). loperamide 2020-0 Yes [id number] 2mg Take 1 Un jaqueline 2 mg 5-21 capsule by ity of capsule 00:00: mouth [place] 00 every 4 Medical (four) Branch hours as needed for Diarrhea. Not to exceed 16mg daily. ondansetron 2020-0 Yes [id number] 4mg Take 1 U nivers 4 mg 5-21 tablet by ity of disintegrat 00:00: mouth [place] ing tablet 00 every 8 Medica l (eight) Branch hours as needed for Nausea and Vomiting (N/V). loperamide 2020-0 Yes [id number] 2mg Take 1 Un jaqueline 2 mg 5-21 capsule by ity of capsule 00:00: mouth [place] 00 every 4 Medical (four) Branch hours as needed for Diarrhea. Not to exceed 16mg daily. ondansetron 2020-0 Yes [id number] 4mg Take 1 U nivers 4 mg 5-21 tablet by ity of disintegrat 00:00: mouth [place] ing tablet 00 every 8 Medica l (eight) Branch hours as needed for Nausea and Vomiting (N/V). loperamide 2020-0 Yes [id number] 2mg Take 1 Un jaqueline 2 mg 5-21 capsule by ity of capsule 00:00: mouth [place] 00 every 4 Medical (four) Branch hours as needed for Diarrhea. Not to exceed 16mg daily. ondansetron 2020-0 Yes [id number] 4mg Take 1 U nivers 4 mg 5-21 tablet by ity of disintegrat 00:00: mouth [place] ing tablet 00 every 8 Medica l (eight) Branch hours as needed for Nausea and Vomiting (N/V). ondansetron 2020-0 Yes [id number] 4mg Take 1 U nivers 4 mg 5-21 tablet by ity of disintegrat 00:00: mouth [place] ing tablet 00 every 8 Medica l (eight) Branch hours as needed for Nausea and Vomiting (N/V). ondansetron 2019- Yes [id number] 4mg Take 1 U nivers 4 mg 5-21 tablet by ity of disintegrat 00:00: mouth [place] ing tablet 00 every 8 Medica l (eight) Branch hours as needed for Nausea and Vomiting (N/V). ondansetron 2020- No [id number] 4mg Take 1 Univers 4 mg 5-21 -16 tablet by ity of disintegrat 00:00: 00:00 [place] tablet 00 :00 every 8 Medica l (eight) Branch hours as needed for Nausea and Vomiting (N/V). ondansetron 2019-2020- No [id number] 4mg Take 1 Univers 4 mg 5-21 -16 tablet by ity of disintegrat 00:00: 00:00 [place] tablet 00 :00 every 8 Medica l (eight) Branch hours as needed for Nausea and Vomiting (N/V). loperamide [id number] 2mg Take 1 U nivers 2 mg 5-21 06-20 capsule by ity of capsule 00:00: 00:00 mouth [place] 00 :00 every 4 Medical (four) Branch hours as needed for Diarrhea. Not to exceed 16mg daily. dicyclomine 2019- No [id number] 10mg Take 1 Univers (BENTYL) 10 5-21 [...] 1 [place] mg 00 :00 dose, [facility] Medical 06/16/19 at Branch 0945, STAT diazePAM 2019-2019- No 2.5mg 2.5 mg, Univ ers (VALIUM) 06-16-06 Oral, ity of tablet 2.5 14:15: 14:08 ONCE, 1 [place] mg 00 :00 dose, [facility] Medical 06/16/19 at Branch 0815, TITA LORazepam 2020-0 2020- No 1mg 1 mg, Slow U nivers (ATIVAN) 2-05 02-05 IV Push, ity of injection 1 20:00: 18:59 ONCE, 1 [place] mg 00 :00 dose, Wed Medical 06/15/19 at [place] 1400, STAT metoprolol 2020-0 Yes 50mg Take 50 mg U nivers succinate 1-19 by mouth 2 ity of XL (TOPROL 16:21: [facility] [place] XL) 25 mg 12 times Medical 24 hr daily. Branch tablet diazePAM 2020-0 Yes 10mg Take 10 mg Uni vers (VALIUM) 10 1-19 by mouth 2 it y of mg tablet 16:21: ([facility] [place] 12 times Medical daily. Branch metoprolol 2020-0 Yes 50mg Take 50 mg U nivers succinate 1-19 by mouth 2 ity of XL (TOPROL 16:21: ([facility] [place] XL) 25 mg 12 times Medical 24 hr daily. [place] tablet diazePAM 2020-0 Yes 10mg Take 10 mg Uni vers (VALIUM) 10 1-19 by mouth 2 it y of mg tablet 16:21: ([facility] [place] 12 times Medical daily. [place] metoprolol 2020-0 Yes 50mg Take 50 mg U nivers succinate 1-19 by mouth 2 ity of XL (TOPROL 16:21: ([facility] [place] XL) 25 mg 12 times Medical 24 hr daily. [place] tablet diazePAM 2020-0 Yes 10mg Take 10 mg Uni vers (VALIUM) 10 1-19 by mouth 2 it y of mg tablet 16:21: ([facility] [place] 12 times Medical daily. [place] metoprolol 2020-0 Yes 50mg Take 50 mg U nivers succinate 1-19 by mouth 2 ity of XL (TOPROL 16:21: ([facility] [place] XL) 25 mg 12 times Medical 24 hr daily. [place] tablet diazePAM 2020-0 Yes 10mg Take 10 mg Uni vers (VALIUM) 10 1-19 by mouth 2 it y of mg tablet 16:21: ([facility] [place] 12 times Medical daily. Branch metoprolol 2020-0 Yes 50mg Take 50 mg U nivers succinate 1-19 by mouth 2 ity of XL (TOPROL 16:21: ([facility] [place] XL) 25 mg 12 times Medical 24 hr daily. [place] tablet diazePAM 2020-0 Yes 10mg Take 10 mg Uni vers (VALIUM) 10 1-19 by mouth 2 it y of mg tablet 16:21: ([facility] [place] 12 times Medical daily. Branch metoprolol 2020-0 Yes 50mg Take 50 mg U nivers succinate 1-19 by mouth 2 ity of XL (TOPROL 16:21: (two) [place] XL) 25 mg 12 times Medical 24 hr daily. Branch tablet diazePAM 2020-0 Yes 10mg Take 10 mg Uni vers (VALIUM) 10 1-19 by mouth 2 it y of mg tablet 16:21: ([facility] [place] 12 times Medical daily. Branch metoprolol 2020-0 Yes 50mg Take 50 mg U nivers succinate 1-19 by mouth 2 ity of XL (TOPROL 16:21: (two) [place] XL) 25 mg 12 times Medical 24 hr daily. Branch tablet diazePAM 2020-0 Yes 10mg Take 10 mg Uni vers (VALIUM) 10 1-19 by mouth 2 it y of mg tablet 16:21: (two) [place] 12 times Medical daily. Branch metoprolol 2020-0 Yes 50mg Take 50 mg U nivers succinate 1-19 by mouth 2 ity of XL (TOPROL 16:21: (two) [place] XL) 25 mg 12 times Medical 24 hr daily. Branch tablet diazePAM 2020-0 Yes 10mg Take 10 mg Uni vers (VALIUM) 10 1-19 by mouth 2 it y of mg tablet 16:21: [facility] [place] 12 times Medical daily. Branch metoprolol 2020-0 [...] 2 it y of mg tablet 16:21: [facility] [place] 12 times Medical daily. Branch amoxicillin 2020-0 2020- No [id number] 500mg Take 1 Univers 500 mg 1-19 06-09 capsule by ity of capsule 00:00: 05:59 mouth 2 [place] 00 :00 (two) Medical times [place] daily for 10 days. amoxicillin 2020- No [id number] 500mg Take 1 [facility] 500 mg 05-29 capsule by ity of capsule 00:00: 05:59 mouth 2 [place] 00 :00 (two) Medical times [place] daily for 10 days. metoprolol 2018-05 Yes [...] times Medical daily. Branch pantoprazol 2018-05 Yes [id number] 40mg Take 1 Univers e 0-12 tablet by ity of (PROTONIX) 00:00: mouth [place] 40 mg EC 00 daily. Medical tablet Branch pantoprazol 2018-05 Yes [id number] 40mg Take 1 Univers e 0-12 tablet by ity of (PROTONIX) 00:00: mouth [place] 40 mg EC 00 daily. Medical tablet Branch pantoprazol 2018-05 Yes [id number] 40mg Take 1 Univers e 0-12 tablet by ity of (PROTONIX) 00:00: mouth [place] 40 mg EC 00 daily. Medical tablet Branch pantoprazol 2018-05 Yes [id number] 40mg Take 1 Univers e 0-12 tablet by ity of (PROTONIX) 00:00: mouth [place] 40 mg EC 00 daily. Medical tablet Branch pantoprazol 2018-05 Yes [id number] 40mg Take 1 Univers e 0-12 tablet by ity of (PROTONIX) 00:00: mouth [place] 40 mg EC 00 daily. Medical tablet Branch pantoprazol 2018-05 Yes [id number] 40mg Take 1 Univers e 0-12 tablet by ity of (PROTONIX) 00:00: mouth [place] 40 mg EC 00 daily. Medical tablet Branch pantoprazol 2018-05 Yes [id number] 40mg Take 1 Univers e 0-12 tablet by ity of (PROTONIX) 00:00: mouth [place] 40 mg EC 00 daily. Medical tablet Branch pantoprazol 2018-05 Yes [id number] 40mg Take 1 Univers e 0-12 tablet by ity of (PROTONIX) 00:00: mouth [place] 40 mg EC 00 daily. Medical tablet Branch pantoprazol 2018-05 Yes [id number] 40mg Take 1 Univers e 0-12 tablet by ity of (PROTONIX) 00:00: mouth [place] 40 mg EC 00 daily. Medical tablet Branch pantoprazol 2018-05 Yes [id number] 40mg Take 1 Univers e 0-12 tablet by ity of (PROTONIX) 00:00: mouth [place] 40 mg EC 00 daily. Medical tablet Branch pantoprazol 2018-05 Yes [id number] 40mg Take 1 Univers e 0-12 tablet by ity of (PROTONIX) 00:00: mouth [place] 40 mg EC 00 daily. Medical tablet Branch pantoprazol 2018-05 Yes [id number] 40mg Take 1 Univers e 0-12 tablet by ity of (PROTONIX) 00:00: mouth [place] 40 mg EC 00 daily. Medical tablet Branch pantoprazol 2018-05 Yes [id number] 40mg Take 1 Univers e 0-12 tablet by ity of (PROTONIX) 00:00: mouth [place] 40 mg EC 00 daily. Medical tablet Branch pantoprazol 2018-05 Yes [id number] 40mg Take 1 Univers e 0-12 tablet by ity of (PROTONIX) 00:00: mouth [place] 40 mg EC 00 daily. Medical tablet Branch pantoprazol 2018-05 Yes [id number] 40mg Take 1 Univers e 0-12 tablet by ity of (PROTONIX) 00:00: mouth [place] 40 mg EC 00 daily. Medical tablet Branch pantoprazol 2018-05 Yes [id number] 40mg Take 1 Univers e 0-12 tablet by ity of (PROTONIX) 00:00: mouth [place] 40 mg EC 00 daily. Medical tablet Branch pantoprazol 2018-05 Yes [id number] 40mg Take 1 Univers e 0-12 tablet by ity of (PROTONIX) 00:00: mouth [place] 40 mg EC 00 daily. Medical tablet Branch pantoprazol 2018-05 Yes [id number] 40mg Take 1 Univers e 0-12 tablet by ity of (PROTONIX) 00:00: mouth [place] 40 mg EC 00 daily. Medical tablet Branch pantoprazol 2018-05 Yes [id number] 40mg Take 1 Univers e 0-12 tablet by ity of (PROTONIX) 00:00: mouth [place] 40 mg EC 00 daily. Medical tablet Branch pantoprazol 2018-05 Yes [id number] 40mg Take 1 Univers e 0-12 tablet by ity of (PROTONIX) 00:00: mouth [place] 40 mg EC 00 daily. Medical tablet Branch pantoprazol 2018-05 Yes [id number] 40mg Take 1 Univers e 0-12 tablet by ity of (PROTONIX) 00:00: mouth [place] 40 mg EC 00 daily. Medical tablet Branch pantoprazol 2018-05 Yes [id number] 40mg Take 1 Univers e 0-12 tablet by ity of (PROTONIX) 00:00: mouth [place] 40 mg EC 00 daily. Medical tablet Branch pantoprazol 2018-05- No [id number] 40mg Take 1 Univers e 0-12 03-28 tablet by ity of (PROTONIX) 00:00: 00:00 mouth [place] 40 mg EC 00 :00 daily. Medical tablet Branch ketorolac 2018- No 15mg 15 mg, Unive rs (TORADOL) 01-25 Slow IV ity of injection 01:00: 23:57 Push, [place] 15 mg 00 :00 ONCE, 1 Medical dose, [facility] Branch 01/24/19 at 2000, Routine
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 methocarbam Yes [id number] 500mg Take 1 Univers ol 500 mg 9-16 tablet by ity o f tablet 00:00: mouth 4 (four) Medical times Branch daily. methocarbam Yes [id number] 500mg Take 1 Univers ol 500 mg 9-16 tablet by ity o f tablet 00:00: mouth 4 00 (four) Medical times Branch daily. methocarbam 2019-0 Yes [id number] 500mg Take 1 Univers ol 500 mg 9-16 tablet by ity o f tablet 00:00: mouth [place] (four) Medical times Branch daily. methocarbam 2019-0 Yes [id number] 500mg Take 1 Univers ol 500 mg 9-16 tablet by ity o f tablet 00:00: mouth 4 (four) Medical times Branch daily. methocarbam 2018- Yes [id number] 500mg Take 1 Univers ol 500 mg 9-16 tablet by ity o f tablet 00:00: mouth [place] (four) Medical times Branch daily. methocarbam 2018- Yes [id number] 500mg Take 1 Univers ol 500 mg 9-16 tablet by ity o f tablet 00:00: mouth [place] (four) Medical times Branch daily. methocarbam 2018-0 Yes [id number] 500mg Take 1 Univers ol 500 mg 9-16 tablet by ity o f tablet 00:00: mouth [place] ([facility]) Medical times Branch daily. methocarbam 2018- Yes [id number] 500mg Take 1 Univers ol 500 mg 9-16 tablet by ity o f tablet 00:00: mouth [place] ([facility]) Medical times Branch daily. methocarbam 2018- Yes [id number] 500mg Take 1 Univers ol 500 mg 9-16 tablet by ity o f tablet 00:00: mouth [place] ([facility]) Medical times Branch daily. methocarbam 2018- Yes [id number] 500mg Take 1 Univers ol 500 mg 9-16 tablet by ity o f tablet 00:00: mouth [place] ([facility]) Medical times Branch daily. methocarbam 2018- Yes [id number] 500mg Take 1 Univers ol 500 mg 9-16 tablet by ity o f tablet 00:00: mouth [place] (four) Medical times Branch daily. methocarbam 2020- No [id number] 500mg Take 1 Univers ol 500 mg 9-16 06-20 tablet by ity of tablet 00:00: 00:[address] [place] [address] 00 :00 (four) Medical times Branch daily. ketorolac 2018- No 30mg 30 mg, Unive rs (TORADOL) 12-21 Slow IV ity of injection 23:45: 23:22 Push, [place] 30 mg 00 :00 ONCE, 1 Medical dose, Tue Branch 12/21/18 at 1845, TITA
Fa [facility] member approving Restricted medication : DEMOND DANIELS dicyclomine 2019- No 20mg 20 mg, Uni vers (BENTYL) 12-21 Oral, ONCE ity of capsule 20 23:45: 23:22 NOW, 1 [place] mg 00 :00 dose, [facility] Medical 12/21/18 at Branch 1845, Routine ondansetron 2019- No 4mg 4 mg, Slow Univers (ZOFRAN 12-21 IV Push, ity of (PF)) 22:30: 22:25 ONCE, 1 [place] injection 4 00 :00 dose, [facility] Med ical mg 12/21/18 at Branch 1730, TITA NaCl 0.9% 2019- No 1000mL at 999 Uni vers (NS) bolus 12-21 mL/hr, ity of infusion 22:30: 23:34 1,000 mL, [place] 1,000 mL 00 :00 IV Medical Infusion, Branch ONCE, 1 dose, [facility] 12/21/18 at 1730, STAT ondansetron 2018-0 Yes [id number] 4mg Take 1 Univers (ZOFRAN 8-13 tablet by ity of ODT) 4 mg 00:00: mouth [place] disintegrat 00 every 8 Medic al ing tablet (eight) Branch hours as needed for Nausea and Vomiting (N/V). dicyclomine 2019-0 Yes [id number] 20mg Take 1 Univers (BENTYL) 20 8-13 tablet by ity of mg tablet 00:00: mouth 3 [place] 00 (three) Medical times Branch daily as needed for Abdominal pain. ondansetron 2019-0 Yes [id number] 4mg Take 1 Univers (ZOFRAN 8-13 tablet by ity of ODT) 4 mg 00:00: mouth [place] disintegrat 00 every 8 Medic al ing tablet (eight) Branch hours as needed for Nausea and Vomiting (N/V). dicyclomine 2019-0 Yes [id number] 20mg Take 1 Univers (BENTYL) 20 8-13 tablet by ity of mg tablet 00:00: mouth 3 [place] 00 (three) Medical times Branch daily as needed for Abdominal pain. ondansetron 2019-0 Yes [id number] 4mg Take 1 Univers (ZOFRAN 8-13 tablet by ity of ODT) 4 mg 00:00: mouth [place] disintegrat 00 every 8 Medic al ing tablet (eight) Branch hours as needed for Nausea and Vomiting (N/V). dicyclomine 2019-0 Yes [id number] 20mg Take 1 Univers (BENTYL) 20 8-13 tablet by ity of mg tablet 00:00: mouth 3 [place] 00 (three) Medical times Branch daily as needed for Abdominal pain. ondansetron 2019-0 Yes [id number] 4mg Take 1 Univers (ZOFRAN 8-13 tablet by ity of ODT) 4 mg 00:00: mouth [place] disintegrat 00 every 8 Medic al ing tablet (eight) Branch hours as needed for Nausea and Vomiting (N/V). dicyclomine 2019-0 Yes [id number] 20mg Take 1 Univers (BENTYL) 20 8-13 tablet by ity of mg tablet 00:00: mouth 3 [place] 00 (three) Medical times Branch daily as needed for Abdominal pain. ondansetron 2019-0 Yes [id number] 4mg Take 1 Univers (ZOFRAN 8-13 tablet by ity of ODT) 4 mg 00:00: mouth [place] disintegrat 00 every 8 Medic al ing tablet (eight) Branch hours as needed for Nausea and Vomiting (N/V). dicyclomine 2019-0 Yes [id number] 20mg Take 1 Univers (BENTYL) 20 8-13 tablet by ity of mg tablet 00:00: mouth 3 [place] 00 (three) Medical times Branch daily as needed for Abdominal pain. ondansetron 2019-0 Yes [id number] 4mg Take 1 Univers (ZOFRAN 8-13 tablet by ity of ODT) 4 mg 00:00: mouth [place] disintegrat 00 every 8 Medic al ing tablet (eight) Branch hours as needed for Nausea and Vomiting (N/V). dicyclomine 2019-0 Yes [id number] 20mg Take 1 Univers (BENTYL) 20 8-13 tablet by ity of mg tablet 00:00: mouth 3 [place] 00 (three) Medical times Branch daily as needed for Abdominal pain. ondansetron 2019-0 Yes [id number] 4mg Take 1 Univers (ZOFRAN 8-13 tablet by ity of ODT) 4 mg 00:00: mouth [place] disintegrat 00 every 8 Medic al ing tablet (eight) Branch hours as needed for Nausea and Vomiting (N/V). dicyclomine 2018- Yes [id number] 20mg Take 1 Univers (BENTYL) 20 8-13 tablet by ity of mg tablet 00:00: mouth 3 [place] 00 (three) Medical times Branch daily as needed for Abdominal pain. ondansetron Yes [id number] 4mg Take 1 Univers (ZOFRAN 8-13 tablet by ity of ODT) 4 mg 00:00: mouth [place] disintegrat 00 every 8 Medic al ing tablet (eight) Branch hours as needed for Nausea and Vomiting (N/V). dicyclomine Yes [id number] 20mg Take 1 Univers (BENTYL) 20 8-13 tablet by ity of mg tablet 00:00: mouth 3 [place] 00 (three) Medical times Branch daily as needed for Abdominal pain. ondansetron Yes [id number] 4mg Take 1 Univers (ZOFRAN 8-13 tablet by ity of ODT) 4 mg 00:00: mouth [place] disintegrat 00 every 8 Medic al ing tablet (eight) Branch hours as needed for Nausea and Vomiting (N/V). dicyclomine Yes [id number] 20mg Take 1 Univers (BENTYL) 20 8-13 tablet by ity of mg tablet 00:00: mouth 3 [place] 00 (three) Medical times Branch daily as needed for Abdominal pain. ondansetron 2020- No [id number] 4mg Take 1 Univers (ZOFRAN 8-13 05-21 tablet by ity of ODT) 4 mg 00:00: 00:00 mouth [place] disintegrat 00 :00 every 8 Medic al ing tablet (eight) Branch hours as needed for Nausea and Vomiting (N/V). dicyclomine 2020- No [id number] 20mg Take 1 Univers (BENTYL) 20 8-13 [...] 50mg Take 50 mg U nivers succinate 7 by mouth 2 ity of XL (TOPROL [...] Commen ts Source Name Name MORALES ESTEBAN 2020-01-[address] [facility] FLUCMELANIEVAX QUAD 2020-01-[address] 00:00:00 Hospital Vital Signs Vital Name Observation Time Observation Value Comments Source Systolic blood 2022-06-16 18:50:00 165 [facility]Hg[facility] 2022-06-16 18:50:00 105 mm[Hg] Unive [facility] Heart rate 2022-06-16 18:50:00 88 /min [facility] Respiratory rate 2022-06-16 18:50:00 15 /min [facility] Oxygen saturation in 2022-06-16 18:50:00 98 /min [facility] Arterial blood by [facility] Pulse oximetry [place] Body temperature 2022-06-16 15:33:00 37 [place] [facility] Body height 2022-06-16 15:33:00 170.2 cm [facility] Body weight 2022-06-16 15:33:00 104.327 kg [facility] BMI 2022-06-16 15:33:00 36.02 kg/m2 [facility] Systolic blood 2022-04-15 01:26:00 121 mm[Hg] Univer [facility] Diastolic blood 2022-04-15 01:26:00 88 mm[Hg] Unive rsity of pressure [place] [facility] Heart rate 2022-04-15 01:26:00 68 /min [facility] [place] [facility] Respiratory rate 2022-04-15 01:26:00 16 /min [facility] [place] [facility] Oxygen saturation in 2022-04-15 01:26:00 97 /min University of Arterial blood by [place] [employer] Pulse oximetry Branch Body temperature 2022-04-14 22:17:00 36.61 [place] [facility] [place] [facility] Body height 2022-04-14 22:17:00 170.2 cm [facility] [place] [facility] Body weight 2022-04-14 22:17:00 106.595 kg [facility] [place] [facility] BMI 2022-04-14 22:17:00 36.81 kg/m2 [facility] [place] [facility] Systolic blood 2022-02-19 14:07:00 151 mm[Hg] Univer sity of pressure [place] [facility] Diastolic blood 2022-02-19 14:07:00 116 mm[Hg] Unive rsity of pressure [place] [facility] Heart rate 2022-02-19 14:07:00 91 /min [facility] [place] [facility] Body temperature 2022-02-19 14:07:00 36.78 [place] [facility] [place] [facility] Respiratory rate 2022-02-19 14:07:00 18 /min [facility] [place] [facility] Body weight 2022-02-19 14:07:00 102.059 kg [facility] [place] [facility] BMI 2022-02-19 14:07:00 35.24 kg/m2 [facility] [place] [facility] Oxygen saturation in 2022-02-19 14:07:00 99 /min University of Arterial blood by [facility] Pulse oximetry Branch Systolic blood 2021-11-21 15:02:00 121 mm[Hg] Univer sity of pressure [place] [facility] Diastolic blood 2021-11-21 15:02:00 64 mm[Hg] Unive rsity of pressure [place] [facility] Heart rate 2021-11-21 15:02:00 75 /min [facility] [place] [facility] Respiratory rate 2021-11-21 15:02:00 18 /min [facility] [place] [facility] Oxygen saturation in 2021-11-21 15:02:00 95 /min University of Arterial blood by [place] [employer] Pulse oximetry Branch Body temperature 2021-11-21 11:47:00 37.5 [place]han [facility] [place] [facility] Body height 2021-11-21 11:47:00 170.2 cm [facility] [place] [facility] Body weight 2021-11-21 11:47:00 102.059 kg [facility] [place] [facility] BMI 2021-11-21 11:47:00 35.24 kg/m2 [facility] [place] [facility] Systolic blood 2021-11-19 22:31:18 146 mm[Hg] Univer sity of pressure [place] [facility] Diastolic blood 2021-11-19 22:31:18 85 mm[Hg] Unive rsity of pressure [place] [facility] Heart rate 2021-11-19 22:31:18 92 /min [facility] [place] [facility] Respiratory rate 2021-11-19 22:31:18 16 /min [facility] [place] [facility] Oxygen saturation in 2021-11-19 22:31:18 97 /min University of Arterial blood by [place] [employer] Pulse oximetry Branch Body temperature 2021-11-19 [...] 2021-10-08 02:08:00 170.2 cm [facility] [place] [facility] Body weight 2021-10-08 02:08:00 102.785 kg [facility] [place] [facility] BMI 2021-10-08 02:08:00 35.49 kg/m2 [facility] [place] [facility] Oxygen saturation in 2021-10-08 02:08:00 97 /min University of Arterial blood by [place] [facility] Pulse oximetry Branch Systolic blood 2021-09-30 02:00:00 [...] 94 /min University of Arterial blood by [facility] Pulse oximetry Branch Body [...] 96 /min University of Arterial blood by [place] Medi [facility] Pulse oximetry Branch Body weight 2021-09-13 11:00:00 104.463 kg [facility] [place] [facility] BMI 2021-09-13 11:00:00 36.07 kg/m2 [facility] [place] [facility] Body height 2021-09-12 16:00:00 170.2 [...] 96 /min University of Arterial blood by [place] [employer] Pulse oximetry Branch Body height 2021-09-05 20:10:00 [...] 94 /min University of Arterial blood by [employer]ofi Pulse oximetry Branch Body height 2021-08-06 20:45:00 170.2 cm [facility] [place] [facility] Body weight 2021-08-06 20:45:00 104.327 kg [facility] [place] [facility] BMI 2021-08-06 20:45:00 36.02 kg/m2 [facility] [place] [facility] WEIGHT 2021-07-15 23:46:00 100 kg WEIGHT 2021-07-15 23:46:00 100 kg WEIGHT 2021-07-15 [...] 100 /min University of Arterial blood by [place] [employer] Pulse oximetry Branch Body temperature 2021-06-05 [...] /min University of Arterial blood by [place] [facility] [facility] Pulse oximetry [facility] Respiratory rate 2021-05-27 17:52:00 18 /min [facility] [place] [facility] Body temperature 2021-05-27 15:53:00 35.78 Siobhan [facility] [place] [facility] Body weight 2021-05-27 15:53:00 102.967 kg [facility] BMI 2021-05-27 15:53:00 34.52 kg/m2 [facility] [place] [facility] Respiratory rate 2021-05-05 13:33:00 18 /min [facility] [place] [facility] Oxygen saturation in 2021-05-05 13:33:00 97 /min [facility] Arterial blood by [facility] Pulse oximetry Branch Systolic blood 2021-05-05 12:44:00 155 mm[Hg] [facility] [place] [facility] Diastolic blood 2021-05-05 12:44:00 75 mm[Hg] [facility] Heart rate 2021-05-05 12:44:00 59 /min [facility] Body temperature 2021-05-05 12:44:00 36.5 Siobhan [facility] Body height 2021-05-05 06:46:00 172.7 cm [facility] Body weight 2021-05-05 06:46:00 102.967 kg [facility] BMI 2021-05-05 06:46:00 34.52 kg/m2 [facility] Systolic blood 2021-03-31 14:51:24 151 mm[Hg] [facility] [place] [facility] Diastolic blood 2021-03-31 14:51:24 98 mm[Hg] [facility] Heart rate 2021-03-31 14:51:24 92 /min [facility] Body temperature 2021-03-31 14:51:24 36.67 Siobhan [facility] Respiratory rate 2021-03-31 14:51:24 18 /min [facility] [place] [facility] Body height 2021-03-31 14:35:00 170.2 cm [facility] Body weight 2021-03-31 14:35:00 99.791 kg [facility] BMI 2021-03-31 14:35:00 34.46 kg/m2 [facility] Oxygen saturation in 2021-03-31 14:35:00 99 /min [facility] Arterial blood by [facility] Pulse oximetry Branch Systolic [...] 98 /min [facility] Arterial blood by [facility] Pulse oximetry Branch Body [...] 13:26:00 83 mm[Hg] [facility] [place] [facility] Heart rate 2021-01-24 13:26:00 96 /min [facility] [place] [facility] Body temperature 2021-01-24 13:26:00 37.39 Siobhan [facility] [place] [facility] Respiratory rate 2021-01-24 13:26:00 20 /min [facility] [place] [facility] Body weight 2021-01-24 13:26:00 99.791 kg [facility] BMI 2021-01-24 13:26:00 34.45 kg/m2 [facility] [place] [facility] Oxygen saturation in 2021-01-24 13:26:00 95 /min [facility] Arterial blood by [facility] Pulse oximetry Branch Systolic [...] 94 /min [facility] Arterial blood by [facility] o[facility] Body weight 2020-12-07 13:31:00 94.348 kg [facility] [place] [facility] BMI 2020-12-07 13:31:00 32.57 kg/m2 [facility] [place] [facility] Systolic blood 2020-10-28 12:21:00 150 mm[Hg] [facility] [place] [facility] Diastolic blood 2020-10-28 12:21:00 78 mm[Hg] [facility] [place] [facility] Heart rate 2020-10-28 12:21:00 73 /min [facility] [place] [facility] Body temperature 2020-10-28 12:21:00 36.56 Siobhan [facility] [place] [facility] Respiratory rate 2020-10-28 12:21:00 11 /min [facility] [place] [facility] Oxygen saturation in 2020-10-28 12:21:00 98 /min [facility]ial blood by [place] [facility] Body weight 2020-10-28 09:00:00 94.666 kg [facility] [place] [facility] BMI 2020-10-28 09:00:00 32.68 kg/m2 [facility] [place] [facility] Body height 2020-10-25 13:00:00 170.2 [...] 99 /min [facility] by [place] [facility] Body temperature 2020-07-28 [...] 99 /min [facility] Arterial blood by [facility] kofi Pulse oximetry [facility] Body temperature 2020-07-28 [...] 97 /min [facility]terial blood by [facility] Pulse oximetry Branch Body [...] 97 /min [facility] Arterial blood by [facility] Pulse oximetry Branch Body [...] 97 /min [facility] Arterial blood by [facility] o[facility] Body temperature 2020-06-23 19:45:00 [...] 97 /min [facility] Arterial blood by [facility] Body temperature 2020-06-23 19:45:00 [...] 100 /min [facility] Arterial blood by [facility] Body temperature 2019-11-10 04:15:00 [...] 100 /min [facility] Arterial blood by [facility] Pulse oximetry [facility] Body temperature 2019-11-10 04:15:00 [...] 98 /min [facility] blood by [place] [facility] Body temperature 2019-09-29 [...] 98 /min [facility] by [place] [facility] Body temperature 2019-09-29 14:39:00 36.56 Siobhan [facility] Body height 2019-09-29 14:39:00 170.2 cm [...] 2019-06-16 13:09:00 170.2 cm [facility] [place] [facility] Body weight 2019-06-16 13:09:00 88.451 kg [facility] [place] [facility] BMI 2019-06-16 13:09:00 30.54 kg/m2 [facility] [place] [facility] Oxygen saturation in 2019-06-16 13:09:00 98 /min [facility] by [place] [facility] Systolic blood 2019-06-16 13:09:00 153 mm[Hg] [facility] [place] [facility] Diastolic blood 2019-06-16 13:09:00 82 mm[Hg] [facility] [place] [facility] Respiratory rate 2019-06-16 13:09:00 18 /min [facility] [place] [facility] Body height 2019-06-16 13:09:00 170.2 cm [facility] Body weight 2019-06-16 13:09:00 88.451 kg [facility] [place] [facility] BMI 2019-06-16 13:09:00 30.54 kg/m2 [facility] [place] [facility] Oxygen saturation in 2019-06-16 13:09:00 98 /min [facility] Arterial blood by [facility]i P[facility] o[facility] Systolic blood 2019-06-15 [...] 97 /min [facility] Arterial blood by [facility]i P[facility] Systolic blood 2019-06-15 [...] 97 /min [facility] Arterial blood by [facility] Pulse oximetry Branch Systolic [...] 2019 16:22:00 90.357 kg [facility] [place] [facility] BMI 2019 16:22:00 31.20 kg/m2 [facility] [place] [facility] Oxygen saturation in 2019 16:22:00 96 /min [facility] Arterial blood by [facility] Pulse oximetry Branch Systolic [...] 2019 16:22:00 90.357 kg [facility] [place] [facility] BMI 2019 16:22:00 31.20 kg/m2 [facility] [place] [facility] Oxygen saturation in 2019 16:22:00 96 /min [facility] blood by [place] [facility] Heart rate 2019-01-25 00:00:00 79 /min [facility] [place] [facility] Respiratory rate 2019-01-25 00:00:00 15 /min [facility] [place] [facility] Systolic blood 2019-01-24 23:00:00 122 mm[Hg] [facility] [place] [facility] Diastolic blood 2019-01-24 23:00:00 68 mm[Hg] [facility] [place] [facility] Oxygen saturation in 2019-01-24 23:00:00 93 /min [facility] blood by [place] [facility] Body temperature 2019-01-24 20:15:00 36.94 Siobhan [facility] [place] [facility] Body weight 2019-01-24 20:15:00 86.183 [...] 23:00:00 68 mm[Hg] [facility] [place] [facility] Oxygen saturation in 2019-01-24 23:00:00 93 /min [facility] Arterial blood by [employer] [employer] [facility] Body temperature 2019-01-24 20:15:00 36.94 Siobhan [facility] [place] [facility] Body weight 2019-01-24 20:15:00 86.183 kg [facility] [place] [facility] BMI 2019-01-24 20:15:00 28.89 kg/m2 [facility] [place] [facility] Systolic blood 2018-12-22 00:30:00 142 mm[Hg] [facility] [place] [facility] Diastolic blood 2018-12-22 00:30:00 90 mm[Hg] [facility] [place] [facility] Heart rate 2018-12-22 00:30:00 86 /min [facility] [place] [facility] Respiratory rate 2018-12-22 00:30:00 18 /min [facility] [place] [facility] Oxygen saturation in 2018-12-22 00:30:00 97 /min [facility] Arterial blood by [facility] Body temperature 2018-12-21 21:07:00 37.11 Siobhan [facility] [place] [facility] [place] Body weight 2018-12-21 21:07:00 86.183 kg [facility] [place] [facility] BMI 2018-12-21 21:07:00 28.89 kg/m2 [facility] [place] [facility] Systolic blood 2018-12-22 00:30:00 142 mm[Hg] [facility] [place] [facility] Diastolic blood 2018-12-22 00:30:00 90 mm[Hg] [facility] [place] [facility] Heart rate 2018-12-22 00:30:00 86 /min [facility] [place] [facility] Respiratory rate 2018-12-22 00:30:00 18 /min [facility] [place] [facility] Oxygen saturation in 2018-12-22 00:30:00 97 /min [facility] Arterial blood by [facility] Pulse oximetry Branch Body temperature 2018-12-21 21:07:00 37.11 Siobhan [facility] [place] [facility] Body weight 2018-12-21 21:07:00 86.183 kg [facility] [place] [facility] BMI 2018-12-21 21:07:00 28.89 kg/m2 [facility] [place] [facility] Systolic blood 2021-07-18 06:14:45 133 mm[Hg] [facility] Diastolic blood 2021-07-18 06:14:45 70 mm[Hg] [facility] pressure Heart rate 2021-07-18 06:14:45 90 /min [facility] Respiratory rate 2021-07-18 06:14:45 18 /min [facility] Oxygen saturation in 2021-07-18 06:14:45 96 /min [facility] Arterial blood by Pulse oximetry Body temperature 2021-07-18 01:33:46 36.83 Siobhan [facility] Body height 2021-07-17 23:28:00 170.2 cm [facility] Body weight 2021-07-17 23:28:00 85.276 kg [facility] BMI 2021-07-17 23:28:00 29.44 kg/m2 [facility] Systolic blood 2021-07-17 12:09:00 142 mm[Hg] [facility] Diastolic blood 2021-07-17 12:09:00 84 mm[Hg] [facility] Heart rate 2021-07-17 12:09:00 62 /min [facility] Body temperature 2021-07-17 12:09:00 36.78 Siobhan [facility] Respiratory rate 2021-07-17 12:09:00 16 /min [facility] Oxygen saturation in 2021-07-16 21:00:00 96 /min [facility] Arterial blood by Medical Ce nter Pulse oximetry Body weight 2021-07-15 23:46:00 100 kg [facility] BMI 2021-07-15 23:46:00 33.52 kg/m2 [facility] Body weight 2020-02-01 12:04:00 85.548 kg [facility] BMI 2020-02-01 12:04:00 29.54 kg/m2 [facility] Systolic blood 2020-02-01 11:09:39 138 mm[Hg] Method [facility] pressure Diastolic blood 2020-02-01 11:09:39 78 mm[Hg] [facility] pressure Heart rate 2020-02-01 11:09:39 62 /min [facility] Body temperature 2020-02-01 11:09:39 36.5 Siobhan [facility] Respiratory rate 2020-02-01 11:09:39 18 /min [facility] Oxygen saturation in 2020-02-01 11:09:39 98 /min [facility] Arterial blood by Pulse oximetry Body height 2020-01-28 19:00:00 170.2 cm [facility] Procedures Procedure Date / Time Performing Clinician Source Performed CONSENT/REFUSAL FOR 2022-06-16 15:28:45 Doctor Unassigned, No Un [facility] [place] [facility] Name [facility] [place] CT CERVICAL SPINE WO 2022-04-15 00:49:01 Shelley Shahid [facility] ity [facility] CONTRAST [facility] CT HEAD WO CONTRAST 2022-04-15 00:49:[address] [facility] ty [facility] XR SHOULDER 2+ VW LEFT 2022-04-14 22:58:26 Shelley Shahid [facility] CONSENT/REFUSAL FOR 2022-04-14 22:07:43 Doctor Unassigned, No [facility] [place] [facility] Name Medical Branch LIPASE 2022-02-19 14:31:00 Mohinder Michael [facility] COMP. METABOLIC PANEL 2022-02-19 14:31:00 [facility] ([id number] CBC WITH DIFF 2022-02-19 14:31:00 Mohinder Michael [facility] URINALYSIS 2022-02-19 14:31:00 Mohinder Michael [facility] CONSENT/REFUSAL FOR 2022-02-19 14:06:34 Doctor Unassigned, No [facility] [place] [facility] Name [facility] URINALYSIS 2021-11-21 14:04:00 Ciera Seymour [facility] MAGNESIUM 2021-11-21 12:31:00 Ciera Seymour [facility] COMP. METABOLIC PANEL 2021-11-21 12:31:00 Ciera Seymour [facility] ([id number]) [facility] CBC WITH DIFF 2021-11-21 12:31:00 Ciera Seymour [facility] CONSENT/REFUSAL FOR 2021-11-21 11:40:05 Doctor Unassigned, No [facility] [place] [facility] Name [facility] CREATINE KINASE 2021-11-19 21:21:00 Jerry Martin [facility] MAGNESIUM 2021-11-19 21:21:00 Jerry Martin [facility] COMP. METABOLIC PANEL 2021-11-19 21:21:00 Jerry Martin [facility] ([id number]) Medical Branch CBC WITH DIFF 2021-11-19 21:21:00 Jerry Martin [facility] URINALYSIS 2021-11-19 21:21:00 Jerry Martin [facility] COVID-19 (ID NOW RAPID 2021-11-19 21:21:00 Jerry Martin [facility] TESTING) Medical Branch CONSENT/REFUSAL FOR 2021-11-19 20:51:07 Doctor Unassigned, No [facility] [place] [facility] Name Medical Branch CONSENT/REFUSAL FOR 2021-10-08 01:44:28 Doctor Unassigned, No Un iversity [facility] DIAGNOSIS AND TREATMENT Name [facility] EKG-12 LEAD 2021-09-30 02:44:04 Belgica [facility] CREATINE KINASE 2021-09-30 01:37:00 Belgica [facility] MAGNESIUM 2021-09-30 01:37:00 Belgica [facility] TROPONIN I 2021-09-30 01:37:00 Belgica [facility] COMP. METABOLIC PANEL 2021-09-30 01:37:00 [facility] [place] ([id number]) [facility] ETHANOL 2021-09-30 01:37:00 Belgica [facility] CBC WITH DIFF 2021-09-30 01:37:00 Belgica [facility] CONSENT/REFUSAL FOR 2021-09-30 01:16:32 Doctor Unassigned, No [facility] [place] [facility] Name [facility] CT ANGIOGRAPHY CORONARIES 2021-09-13 18:33:48 [facility] [place] WITHOUT CARDIAC CALCIUM [facility] SCORING TROPONIN I 2021-09-13 01:01:00 Jon Acevedo [facility] XR CHEST 1 VW 2021-09-12 13:33:24 Johan Porras [facility] HB ECG ROUTINE & RHYTHM 2021-09-12 13:25:38 Johan Porras [facility] STRIP Medical Branch LIPASE 2021-09-12 13:24:00 Singer [facility] MAGNESIUM 2021-09-12 13:24:00 Singer [facility] TROPONIN I 2021-09-12 13:24:00 Singer [facility] COMP. METABOLIC PANEL 2021-09-12 13:24:00 Singer [facility] ([id number]) [facility] CBC WITH DIFF 2021-09-12 13:24:00 Singer [facility] N-TERMINAL PRO-BNP 2021-09-12 13:24:00 Singer Johan [facility] CONSENT/REFUSAL FOR 2021-09-12 13:14:34 Doctor Unassigned, No Un [facility] DIAGNOSIS AND TREATMENT Name Medical Branch MAGNESIUM 2021-09-06 09:16:00 Alvin Baca [facility] TROPONIN I 2021-09-06 09:16:00 Alvin Baca [facility] BASIC METABOLIC PANEL 2021-09-06 09:16:00 Alvin Baca [facility] (NA, K, CL, CO2, GLUCOSE, Medica l Branch BUN, CREATININE, CA) TROPONIN I 2021-09-05 23:16:00 Avlin Baca [facility] TRANSTHORACIC ECHO (TTE) 2021-09-05 20:10:39 Alvin Baca [facility] COMPLETE W/ CONTRAST Medical [facility] URINE DRUG (IMMUNOASSAY) 2021-09-05 18:40:00 Alvin Baca [facility] - COMPREHENSIVE DRUG Medical [facility] SCREEN DUPLEX VENOUS LEGS 2021-09-05 17:06:18 Lynn Trinidad [facility] BILATERAL - BY VASCULAR [facility] LAB XR CHEST 2 VW 2021-09-05 15:53:16 Lynn Trinidad [facility] URINALYSIS 2021-09-05 15:41:00 Lynn Trinidad [facility] LIPASE 2021-09-05 15:31:00 Lynn Trinidad [facility] TROPONIN I 2021-09-05 15:31:00 Lynn Trinidad [facility] COMP. METABOLIC PANEL 2021-09-05 15:31:00 Lynn Trinidad [facility] ([id number]) [facility] LIPID PANEL ([id number])(TOTAL 2021-09-05 15:31:00 Jaspreet Goff [facility] CHOLESTEROL, [facility] TRIGLYCERIDES, HDL) CBC WITH DIFF 2021-09-05 15:31:00 Lynn Trinidad [facility] GLYCOSYLATED HEMOGLOBIN 2021-09-05 15:31:00 Jaspreet Goff [facility] (A1C) [facility] D-DIMER 2021-09-05 15:31:00 Lynn Trinidad [facility] N-TERMINAL PRO-BNP 2021-09-05 15:31:00 Lynn Trinidad [facility] HB ECG ROUTINE & RHYTHM 2021-09-05 15:04:46 Lynn Trinidad [facility] CONSENT/REFUSAL FOR 2021-09-05 14:57:31 Doctor Unassigned, No Un [facility] DIAGNOSIS AND TREATMENT Name [facility] TRANSTHORACIC ECHO (TTE) 2021-08-06 20:45:28 Jaspreet Goff [facility] COMPLETE W/ CONTRAST Medical [facility] CT CHEST PULMONARY 2021-08-06 14:34:41 Savanna Jean [facility] ANGIOGRAM Medical Branch MAGNESIUM 2021-08-06 09:38:00 Jon Acevedo [facility] TROPONIN I 2021-08-06 09:38:00 Jaspreet Goff [facility] BASIC METABOLIC PANEL 2021-08-06 09:38:00 Jon Acevedo [facility] (NA, K, CL, CO2, GLUCOSE, Medica l Branch BUN, CREATININE, CA) LIPID PANEL ([id number])(TOTAL 2021-08-06 09:38:00 Jaspreet Goff [facility] CHOLESTEROL, [facility] TRIGLYCERIDES, HDL) CBC WITH DIFF 2021-08-06 09:38:00 [facility] D-DIMER 2021-08-06 00:53:00 Jon Acevedo [facility] TROPONIN I 2021-08-06 00:52:00 Jon Acevedo [facility] DUPLEX VENOUS LEGS 2021-08-05 20:15:00 Jon Acevedo [facility] BILATERAL - BY VASCULAR Medical Branch LAB PHOSPHORUS 2021-08-05 17:35:00 Jon Acevedo [facility] Branch MAGNESIUM 2021-08-05 17:35:00 Savanna Sue [facility] TROPONIN I 2021-08-05 17:35:00 Savanna Sue [facility] COMP. METABOLIC PANEL 2021-08-05 17:35:00 Savanna Sue [facility] ([id number]) Medical Branch CBC WITH DIFF 2021-08-05 17:35:00 Savanna Sue [facility] N-TERMINAL PRO-BNP 2021-08-05 17:35:00 Savanna Sue [facility] Medical Branch COVID-19 (ID NOW RAPID 2021-08-05 17:35:00 Savanna Sue [facility] TESTING) Medical Branch LAB ONLY COVID 2021-08-05 17:35:00 Savanna Sue [facility] INTERPRETATION [facility] XR CHEST 1 VW 2021-08-05 17:03:55 Savanna Sue [facility] HB ECG ROUTINE & RHYTHM 2021-08-05 15:57:49 Savanna Sue [facility] STRIP Medical Branch CONSENT/REFUSAL FOR 2021-08-05 15:06:08 Doctor Unassigned, No Un [facility] DIAGNOSIS AND TREATMENT Name Medical Branch CT ANGIOGRAM PE CHEST 2021-07-18 03:10:47 Camila Puente [facility] CT HEAD WO CONTRAST 2021-07-18 00:43:16 [facility] 2021-07-18 00:19:00 Camila uPente [facility] COMPLETE BLD COUNT 2021-07-18 00:09:00 Camila Puente [facility] W/AUTO DIFF [place] PROTHROMBIN TIME WITH INR 2021-07-18 00:09:00 [facility] [place] PARTIAL THROMBOPLASTIN 2021-07-18 00:09:00 [facility] TIME (PTT) [place] COMPREHENSIVE METABOLIC 2021-07-18 00:09:00 [facility] PANEL [place] TROPONIN T 2021-07-18 00:09:00 [facility] Ho spital [place] B NATRIURETIC PEPTIDE 2021-07-18 00:09:00 [facility] [place] ESTIMATED GFR 2021-07-18 00:09[facility]00 [facility]ST 1 VW PORTABLE 2021-07-18 00:06:00 [facility] [place] COVID-19 QUALITATIVE 2021-07-18 00:04:00 [facility] RT-PCR [place] ECG ED PRELIMINARY 2021-07-18 00:03:49 [facility] INTERPRETATION [facility] URINALYSIS SCREEN AND 2021-07-18 00:01:00 [facility] MICROSCOPY, WITH REFLEX [place] TO CULTURE URINE DRUGS OF ABUSE 2021-07-18 00:01:00 [facility] SCREEN [place] ECG 12-LEAD 2021-07-17 23:22:47 Makenna Wilkinson [facility] ETHANOL 2021-07-16 02:33:00 Kervin Moseley [facility] CT BRAIN WITHOUT IV 2021-07-16 00:38:00 Luke Donald [facility] CONTRAST [facility] ED ECG INTERPRETATION 2021-07-16 00:20:14 Luke Donald [facility] XR CHEST 1 VIEW PORTABLE 2021-07-16 00:20:00 Luke Donald CH I [facility] / BEDSIDE [facility] SARS-COV2/RT-PCR ([facility] & 2021-07-16 00:16:00 Khozein Donald, [facility] REF LABS) [facility] RAPID DRUG SCREEN, URINE 2021-07-16 00:16:00 Luke Donald CH I [facility] CBC W/PLT COUNT & AUTO 2021-07-16 00:11:00 Luke Donald [facility] DIFFERENTIAL [facility] BASIC METABOLIC PANEL 2021-07-16 00:11:00 Luke Donald [facility] S [facility] HIGH SENSITIVITY TROPONIN 2021-07-16 00:11:00 Lexy Garcia [facility] B-TYPE NATRIURETIC FACTOR 2021-07-16 00:11:00 Lexy Garcia [facility] (BNP) [facility] CBC W/PLT COUNT & AUTO 2021-07-16 00:11:00 Luke Donald [facility] DIFFERENTIAL [facility] ECG 12-LEAD 2021-07-16 00:07:28 Unknown, Hl7 Doctor [facility] ECG 12-LEAD 2021-07-16 00:07:28 Unknown, Hl7 Doctor [facility] TROPONIN I 2021-06-05 17:30:00 Jennifer Shea [facility] XR CHEST 1 VW 2021-06-05 15:27:49 Jennifer Shea [facility] LIPASE 2021-06-05 15:11:00 Jennifer Shea [facility] TROPONIN I 2021-06-05 15:11:00 Jennifer Shea [facility] COMP. METABOLIC PANEL 2021-06-05 15:11:00 Jennifer Shea [facility] ([id number]) [facility] CBC WITH DIFF 2021-06-05 15:11:00 Jennifer Shea [facility] PROTHROMBIN TIME / INR 2021-06-05 15:11:00 [facility] ACTIVATED PARTIAL 2021-06-05 15:11:00 Jennifer She[facility] (ID NOW RAPID 2021-06-05 15:11:00 [facility] [place] XR CHEST 1 VW 2021-05-27 16:27:27 Jennifer Shea [facility] LIPASE 2021-05-27 15:59:00 Jennifer Shea [facility] TROPONIN I 2021-05-27 15:59:00 Jennifer Shea [facility] COMP. METABOLIC PANEL 2021-05-27 15:59:00 Jennifer Shea [facility] ([id number]) [facility] [place] CBC WITH DIFF 2021-05-27 15:59:00 Jennifer Shea [facility] PROTHROMBIN TIME / INR 2021-05-27 15:59:00 Jennifer Shea [facility] ACTIVATED PARTIAL 2021-05-27 15:59:00 Jennifer Shea [facility] THRMPLAS [place] [facility] URINALYSIS 2021-05-27 15:59:00 Jennifer Shea [facility] COVID-19 (ID NOW RAPID 2021-05-27 15:59:00 Jennifer Shea [facility] TESTING) [facility] [place] URINE DRUG (IMMUNOASSAY) 2021-05-27 15:59:00 Jennifer Shea [facility] DRUG Medical [facility] SCREEN W/O REFLEX NOTICE OF PRIVACY 2021-05-27 15:50:40 Doctor Unassigned, No [facility] PRACTICES Name Medical Branch CONSENT/REFUSAL FOR 2021-05-27 15:50:22 Doctor Unassigned, No [facility]REAT[facility] Name Medical [place] TROPONIN I 2021-05-05 12:18:00 Celio Lopez [facility] CREATINE KINASE 2021-05-05 09:25:00 Celio Lopez [facility] TROPONIN I 2021-05-05 09:25:00 Celio Lopez [facility] PROCALCITONIN 2021-05-05 09:25:00 Celio Lopez [facility] PHOSPHORUS 2021-05-05 02:50:00 Keila paco [facility] URIC ACID 2021-05-05 02:50:00 Celio Lopez [facility] MAGNESIUM 2021-05-05 02:50:00 Keila [facility] TROPONIN I 2021-05-05 02:50:00 Shelley Shahid Margarita [facility] THYROID STIMULATING 2021-05-05 02:50:00 Celio Lopez [facility] HORMONE [facility] LIPID PANEL ([id number])(TOTAL 2021-05-05 02:50:00 Celio Lopez [facility] CHOLESTEROL, Medical Branch TRIGLYCERIDES, HDL) ETHANOL 2021-05-05 02:50:00 Celio Lopez [facility] N-TERMINAL PRO-BNP 2021-05-05 02:50:00 Celio Lopez [facility] XR CHEST 1 VW 2021-05-05 00:46:11 Ciera Seymour [facility] LIPASE 2021-05-05 00:37:00 Ciera Seymour [facility] TROPONIN I 2021-05-05 00:37:00 Ciera Seymour [facility] COMP. METABOLIC PANEL 2021-05-05 00:37:00 Ciera Seymour [facility] ([id number]) Medical Branch CBC WITH DIFF 2021-05-05 00:37:00 Ciera Seymour [facility] GLYCOSYLATED HEMOGLOBIN 2021-05-05 00:37:00 Celio Lopez [facility] (A1C) [facility] PROTHROMBIN TIME / INR 2021-05-05 00:37:00 Ciera Seymour [facility] D-DIMER 2021-05-05 00:37:00 Shelley Shahid [facility] ACTIVATED PARTIAL 2021-05-05 00:37:00 Ciera Seymour [facility] THRMPLAS [place] [facility] Branch COVID-19 (ID NOW RAPID 2021-05-05 00:37:00 Ciera Seymour [facility] TESTING) Medical Branch XR HAND 3+ VW RIGHT 2021-03-31 14:51:57 Ciera Seymour [facility] CONSENT/REFUSAL FOR 2021-03-31 14:35:47 Doctor Unassigned, No [facility] DIAGNOSIS AND TREATMENT Name Medical Branch XR CHEST 1 VW 2021-02-18 13:49:48 Singer [facility] MAGNESIUM 2021-02-18 13:35:00 Singer [facility] TROPONIN I 2021-02-18 13:35:00 Singer [facility] COMP. METABOLIC PANEL 2021-02-18 13:35:00 Singer [facility] ([id number]) Medical Branch LIPID PANEL ([id number])(TOTAL 2021-02-18 13:35:00 Johan Porras [facility] CHOLESTEROL, Medical Branch TRIGLYCERIDES, HDL) CBC WITH DIFF 2021-02-18 13:35:00 Singer [facility] D-DIMER 2021-02-18 13:35:00 Singer [facility] ADC,CLC OR LCC ONLY - 2021-02-18 13:35:00 Singer [facility] INFLUENZA A & B DIRECT Medical [place] ANTIGEN N-TERMINAL PRO-BNP 2021-02-18 13:35:00 Johan Porras [facility] COVID-19 (ID NOW RAPID 2021-02-18 13:35:00 Singer [facility] TESTING) Medical Branch CONSENT/REFUSAL FOR 2021-02-18 13:07:47 Doctor Unassigned, No [facility]ATMENT Name Medical [place] XR CHEST 1 VW 2021-01-24 14:27:39 Singer [facility] COMP. METABOLIC PANEL 2021-01-24 14:22:00 Singer Johan [facility] ([id number]) Medical Branch CBC WITH DIFF 2021-01-24 14:22:00 Singer [facility] URINALYSIS 2021-01-24 14:22:00 Singer [facility] COVID-19 (ID NOW RAPID 2021-01-24 13:30:00 Singer [facility] TESTING) Medical Branch NOTICE OF PRIVACY 2021-01-24 13:21:27 Doctor Unassigned, No [facility] PRACTICES Name Medical Branch CONSENT/REFUSAL FOR 2021-01-24 13:20:24 Doctor Unassigned, No [facility] DIAGNOSIS [facility] TREATMENT Name Medical Branch LIPASE 2020-12-07 13:44:00 Jennifer Shea [facility] COMP. METABOLIC PANEL 2020-12-07 13:44:00 Jennifer Shea [facility] ([id number]) [facility] CBC WITH DIFF 2020-12-07 13:44:00 Jennifer Shea [facility] URINALYSIS 2020-12-07 13:44:00 Jennifer Shea [facility] ADC, CLC OR LCC ONLY - 2020-12-07 13:44:00 Jennifer Shea [facility] RSV [facility] Branch COVID-19 (ID NOW RAPID 2020-12-07 13:44:00 Jennifer Shea [facility] TESTING) Medical [place] URINE DRUG (IMMUNOASSAY) 2020-12-07 13:44:00 Jennifer Shea [facility] - COMPREHENSIVE DRUG Medical [facility] SCREEN W/O REFLEX CONSENT/REFUSAL FOR 2020-12-07 13:20:39 Doctor Unassigned, No [facility] TREATMENT Name Medical Branch COMP. METABOLIC PANEL 2020-10-26 09:48:00 Celio Lopez [facility] ([id number]) Medical Branch MAGNESIUM 2020-10-25 14:14:00 Alvin Baca [facility] BASIC METABOLIC PANEL 2020-10-25 14:14:00 Alvin Baca [facility] (NA, K, CL, CO2, GLUCOSE, Medica l Branch BUN, CREATININE, CA) US ABDOMEN COMPLETE 2020-10-24 23:47:12 Alvin Baca [facility] TRANSTHORACIC ECHO (TTE) 2020-10-24 20:59:43 Alvin Baca [facility] COMPLETE W/ CONTRAST Medical [facility] TROPONIN I 2020-10-24 16:13:00 Alvin Baca [facility] HB ECG ROUTINE & RHYTHM 2020-10-24 16:02:52 Alvin Baca [facility] STRIP [facility] CRITICAL CARE 2020-10-24 13:45:35 Jennifer Shea [facility] FREE T4 2020-10-24 12:50:00 [facility] (ID NOW RAPID 2020-10-24 12:43:00 Jennifer Shea [facility] TESTING) Medical Branch LAB ONLY COVID 2020-10-24 12:43:00 Jennifer Shea [facility] INTERPRETATION [facility] URINE DRUG (IMMUNOASSAY) 2020-10-24 11:52:00 Johan Porras [facility] - COMPREHENSIVE DRUG Medical [place] SCREEN URINALYSIS 2020-10-24 11:52:00 Singer [facility] [address] CHEST PULMONARY 2020-10-24 11:46:10 Singer [facility] ANGIOGRAM [facility] POCT GLUCOSE (AUTOMATED) 2020-10-24 11:19:[address] [facility] CREATINE KINASE 2020-10-24 11:18:00 Jennifer Shea [facility] LIPASE 2020-10-24 11:18:00 Jennifer Shea [facility] MAGNESIUM 2020-10-24 11:18:00 Alvin Baca [facility] TROPONIN I 2020-10-24 11:18:00 Singer [facility] THYROID STIMULATING 2020-10-24 11:18:00 Jennifer Shea [facility] HORMONE [facility] COMP. METABOLIC PANEL 2020-10-24 11:18:00 Johan Porras [facility] ([id number]) Medical Branch ETHANOL 2020-10-24 11:18:00 Jennifer Shea [facility] CBC WITH DIFF 2020-10-24 11:18:00 Singer [facility] PROTHROMBIN TIME / INR 2020-10-24 11:18:00 [facility] D-DIMER 2020-10-24 11:18:00 Singer [facility] ACTIVATED PARTIAL 2020-10-24 11:18:00 Singer [facility] THRMPLAS [place] [facility] N-TERMINAL PRO-BNP 2020-10-24 11:18:00 Singer Johan [facility] HB ECG ROUTINE & RHYTHM 2020-10-24 11:12:38 Johan Porras [facility] EMERGENCY DEPARTMENT 2020-10-24 05:01:00 Doctor Unassigned, No [facility] DOCUMENTS Name Medical Branch URINALYSIS 2020-07-28 18:29:00 Shabbir Jennifer [facility] ADC / LCC - DRUG SCREEN 2020-07-28 18:29:00 Shabbir [facility] TRIAGE Medical [place] TROPONIN I 2020-07-28 18:23:00 Jennifer Shea [facility] FREE T4 2020-07-28 18:23:00 Jennifer Shea [facility] THYROID STIMULATING 2020-07-28 18:23:00 Jennifer Shea [facility] HORMONE [facility] HEPATIC FUNCTION PANEL 2020-07-28 18:23:00 Jennifer Shea [facility] ([id number]) (ALB,T.PRO,BILI Medical Branch T,BU/BC,ALT,AST,ALK PHOS) BASIC METABOLIC PANEL 2020-07-28 18:23:00 Jennifer Shea [facility] (NA, K, CL, CO2, GLUCOSE, Medica l Branch BUN, CREATININE, CA) CBC WITH DIFF 2020-07-28 18:23:00 Shabbir [facility] PROTHROMBIN TIME / INR 2020-07-28 18:23:00 Jennifer Shea [facility] ACTIVATED PARTIAL 2020-07-28 18:23:00 Shabbir [facility] THRMPLAS [place]N [facility] N-TERMINAL PRO-BNP 2020-07-28 18:23:00 Jennifer Shea [facility] COVID-19 (ID NOW RAPID 2020-07-28 18:23:00 Jennifer Shea [facility] TESTING) Medical Branch HB ECG ROUTINE & RHYTHM 2020-07-28 18:15:15 Jennifer Shea [facility] CONSENT/REFUSAL FOR 2020-07-28 18:07:43 Doctor Unassigned, No [facility] Name Medical Branch TROPONIN I 2020-06-30 15:28:00 Shabbir Jennifer [facility] TROPONIN I 2020-06-30 13:36:00 Jennifer Shea o [facility] BASIC METABOLIC PANEL 2020-06-30 12:02:00 Ciera Seymour [facility] (NA, K, CL, CO2, GLUCOSE, Medica l Branch BUN, CREATININE, CA) CBC WITH DIFF 2020-06-30 12:02:00 Ciera Seymour [facility] XR ANKLE <3 VW LEFT 2020-06-23 20:29:12 Shelley Shahid [facility] XR FOOT <3 VW LEFT 2020-06-23 20:29:12 Shelley Shahid [facility] NOTICE OF PRIVACY 2020-06-23 19:41:37 Doctor Unassigned, No [facility] PRACTICES Name Medical Branch CONSENT/REFUSAL FOR 2020-06-23 19:41:09 Doctor Unassigned, No [facility] DIAGNOSIS AND TREATMENT Name Medical [place] HEMOGLOBIN A1C 2020-01-29 11:10:00 [facility] LIPID PANEL 2020-01-29 11:10:00 [facility] HEPATITIS ACUTE PANEL 2020-01-29 11:10:00 [facility] GGT 2020-01-29 11:10:00 [facility] MAGNESIUM LEVEL 2020-01-29 11:10:00 [facility] HIV AG/AB COMBINATION 2020-01-29 11:10:00 [facility] XR CHEST 1 VW 2019-11-10 04:30:10 Clovis Thomas [facility] TROPONIN I 2019-11-10 04:20:00 Clovis Thomas [facility] COMP. METABOLIC PANEL 2019-11-10 04:20:00 Clovis Thomas [facility] ([id number]) [facility] CBC WITH DIFFERENTIAL 2019-11-10 04:20:00 Clovis Thomas [facility] PROTHROMBIN TIME / INR 2019-11-10 04:20:00 Clovis Thomas [facility] ACTIVATED PARTIAL 2019-11-10 04:20:[address] [facility] EKG-12 LEAD 2019-11-10 04:19:36 Clovis Thomas [facility] COMP. METABOLIC PANEL 2019-09-29 15:23:00 Johan Porras [facility] ([id number]) [facility] CBC WITH DIFFERENTIAL 2019-09-29 15:23:00 Singer [facility] URINALYSIS 2019-09-29 15:23:00 Singer [facility] CONSENT/REFUSAL FOR 2019-09-29 14:19:48 Doctor Unassigned, No Un [facility] DIAGNOSIS AND TREATMENT Name [facility] NOTICE OF PRIVACY 2019-09-29 14:19:33 Doctor Unassigned, No [facility] PRACTICES Name [facility] EKG-12 LEAD 2019-06-16 13:22:02 Shabbir [facility] LIPASE 2019-06-16 13:22:00 Shabbir [facility] TROPONIN I 2019-06-16 13:22:00 Shabbir [facility] COMP. METABOLIC PANEL 2019-06-16 13:22:00 Shabbir Jennifer [facility] ([id number]) [facility] CBC WITH DIFFERENTIAL 2019-06-16 13:22:00 Shabbir Jennifer [facility] PROTHROMBIN TIME / INR 2019-06-16 13:22:00 Jennifer Shea [facility] ACTIVATED PARTIAL 2019-06-16 13:22:[address] [facility] XR CHEST 1 VW 2019-06-15 18:27:52 Shelley Shahid [facility] MAGNESIUM 2019-06-15 18:22:00 Shelley Shahid [facility] TROPONIN I 2019-06-15 18:22:00 Shelley Shahid [facility] COMP. METABOLIC PANEL 2019-06-15 18:22:00 Shelley Shahid [facility] ([id number]) [facility] CBC WITH DIFFERENTIAL 2019-06-15 18:22:00 Shelley Shahid [facility] EKG-12 LEAD 2019-06-15 18:10:41 Shelley Shahid [facility] NOTICE OF PRIVACY 2019-06-15 17:21:46 Doctor Unassigned, No [facility] PRACTICES Name Medical Branch CONSENT/REFUSAL FOR 2019-06-15 17:16:40 Doctor Unassigned, No [facility]AG[facility]IS [facility] TREATMENT Name Medical Branch POCT GRP A STREP 2019 16:24:00 [facility] (MOLECULAR) [facility] POCT FLU A AND B 2019 16:23:00 [facility] NO SHOW OR MISSED 2019 16:08:34 Doctor Unassigned, No [facility] APPOINTMENT POLICY Name [facility] ACKNOWLEDGEMENT LIPASE 2019-01-24 21:38:00 Jerry Martin [facility] TROPONIN I 2019-01-24 21:38:00 Jerry Martin [facility] COMP. METABOLIC PANEL 2019-01-24 21:38:00 Jerry Martin [facility] ([id number]) [facility] URINALYSIS 2019-01-24 21:38:00 Jerry Martin [facility] ADC / LCC - DRUG SCREEN 2019-01-24 21:38:00 Jerry Martin [facility] TRIAGE Medical Branch CBC WITH DIFFERENTIAL 2019-01-24 21:38:00 Jerry Martin [facility] EKG-12 LEAD 2019-01-24 21:01:42 Jerry Martin [facility] CONSENT/REFUSAL FOR 2019-01-24 19:55:39 Doctor Unassigned, No [facility] TREATMENT Name [facility] XR ABDOMEN ACUTE SERIES 2018-12-21 23:23:19 Jeremiah Demond [facility] LIPASE 2018-12-21 22:19:00 Jeremiah Demond [facility] MAGNESIUM 2018-12-21 22:19:00 Jeremiah Demond [facility] COMP. METABOLIC PANEL 2018-12-21 22:19:00 Demond Daniels [facility] ([id number]) Medical Branch CBC WITH DIFFERENTIAL 2018-12-21 22:19:00 [facility] URINALYSIS 2018-12-21 22:19:00 Demond Daniels [place] [facility] CONSENT/REFUSAL FOR 2018-12-21 20:57:44 Doctor Unassigned, No [facility] DI[facility]IS [facility] TREATMENT Name Medical Branch Plan of Care Planned Activity Planned Date Details Comments Source Future Scheduled 2024-05-[address] [facility] 00:00:00 (procedure) [code = Medical Center [id number]] Future Scheduled 2022-06-16 Pneumococcal Vaccine: [facility] Test 09:28:49 Pediatrics (0 to 5 Years) and At-Risk Patients (6 to 64 Years) (1 - PCV) [code = Pneumococcal Vaccine: Pediatrics (0 to 5 Years) and At-Risk Patients (6 to 64 Years) (1 - PCV)] Future Scheduled 2022-06-16 COVID-19 VACCINE (3 - [facility] Test 09:28:49 Booster for Moderna series) [code = COVID-19 VACCINE (3 - Booster for Moderna series)] Future Scheduled 2022-06-16 INFLUENZA VACCINE [facility] Test 09:28:49 [code = INFLUENZA VACCINE] Future Scheduled 2022-01-09 INFLUENZA VACCINE (#1) [facility] 00:[facility]00 [code = INFLUENZA Medical Ce nter VACCINE (#1)] Future Scheduled 2003 DTAP/TDAP/TD VACCINES [facility] 00:00:00 (1 - Tdap) [code = Medical C enter DTAP/TDAP/TD VACCINES (1 - Tdap)] Future Scheduled 2002 HEPATITIS C SCREENING [facility] 00:00:00 [code = HEPATITIS C Medical Center SCREENING] Future Scheduled [address] [facility] Test 00:00:00 Counseling and Medical Cente r Screening (12+) [code = Tobacco Cessation Counseling and Screening (12+)] Future Scheduled [address] [facility] Test 00:00:00 0-64 YRS (1 - PCV) Medical C enter [code = PNEUMOCOCCAL VACCINE 0-64 YRS (1 - PCV)] Future Scheduled 1984 COVID-19 VACCINE (#1) [facility] Test 00:00:00 [code = COVID-[address] VACCINE (#1)] Encounters Start End Encounter Admission Attending Care Care Encounter Source Date/Time Date/Time Type Type Clinicians Facility Department ID 2021-03-12 Emergency [facility] [id number] Univers 05:38:42 ity of [facility] 2021-03-11 Emergency [facility] [id number] Univers 23:00:35 ity of [facility] 2021-03-11 Emergency [facility] [id number] Univers 11:56:05 ity of [facility] 2021-03-11 Emergency [facility] [id number] Univers 01:30:29 ity of [facility] 2021-03-10 [facility] [id number] Univers 07:20:38 ity of [facility] 2021-03-10 [facility] [id number] Univers 00:13:36 ity of [facility] 2021-03-09 Emergency [facility] [id number] Univers 23:32:17 ity of [facility] 2021-03-08 [facility] [id number] Univers 04:08:07 ity of [facility] 2021-03-08 [facility] [id number] Univers 00:53:49 ity of [facility] 2021-03-07 [facility] [id number] Univers 21:49:21 ity of [facility] 2022-06-16 2022-06-16 Emergency [facility] [id number] Univers 09:35:00 12:53:00 SAVANNA ity of [facility] 2022-06-16 2022-06-16 Emergency [facility] [id number] Univers 09:35:00 12:53:00 Savanna Bell [place] [id number] i ty [facility] [id number] [facility] [id number] [facility] 084 Branch 2022-04-14 2022-04-14 Emergency X Shelley SHAHID [facility] ERT [id number] Univers 16:18:00 19:31:00 ity of [facility] 2022-04-14 2022-04-14 Emergency Shelley Shahid [facility] [id number] Univers 16:18:00 19:31:00 Margarita [place] [id number] i ty of [place] [id number] [facility] [id number] [address] 2022-02-19 2022-02-19 Emergency X FERNANDA, [facility] ERT [id number] Univers 09:05:00 11:12:00 MOHINDER ity [facility] 2022-02-19 2022-02-19 Emergency Fernanda, [facility] [id number] Univers 09:05:00 11:12:00 Mohinder [place] [id number] [facility] [id number] [facility] [id number] [address] 2021-11-21 2021-11-21 Emergency [facility] [id number] Univers 07:02:00 10:22:00 CIERA ity [facility] 2021-11-21 2021-11-21 Emergency [facility] [id number] Univers 07:02:00 10:22:00 Ciera [place] [id number] ity [facility] [id number] [facility] [id number] [address] 2021-11-19 2021-11-19 Emergency X JERAD [facility] ERT [id number] Univers 16:02:00 18:33:00 VIC ity [facility] 2021-11-19 2021-11-19 Emergency MartinJerry pelletier [facility] 1.2.840. [id number] Univers 16:02:00 18:33:00 Vic Smyth [id number] ity [facility] [id number] [facility] [id number] [address] 2021-10-07 2021-10-07 Emergency X FATIMAH [facility] ERT [id number] Univers 21:19:00 22:45:00 JOESPH ity [facility] 2021-10-07 2021-10-07 Emergency Fatimah, [facility] [id number] Univers 21:19:00 22:45:00 Joesph Bell ABDI [id number] ity of [place] [id number] [facility] [id number] [address] 2021-09-29 2021-09-29 Emergency X BELGICA, [facility] ERT [id number] Univers 20:24:00 22:17:00 LILIANA it y [facility] 2021-09-29 2021-09-29 Emergency [place], [facility] [id number] Univers 20:24:00 22:17:00 Liliana [place] [id number] ity [facility] [id number] [facility] [id number] [address] 2021-09-12 2021-09-13 Outpatient X CHUCKY [facility] ERIC [id number] Univers 08:19:00 19:45:00 JON miguelito [facility] 2021-09-12 2021-09-13 Emergency Johan Porras [facility] 1.2.840. [id number] Univers 08:19:00 19:45:00 Jon Acevedo [id number] ity [facility] 4.2.7.2.6 [facility] [id number] [address] 2021-09-05 2021-09-06 Outpatient X PHUONG [facility] ERIC [id number] Univers 10:03:00 15:55:00 ALVIN farley [facility] 2021-09-05 2021-09-06 Emergency Lynn Trinidad [facility] 1.2.840 .114 [id number] Univers 10:03:00 15:55:00 Alvin Baca [id number] ity [facility] 4.2.7.2.[address] [place] [id number] 2021-08-05 2021-08-07 Outpatient X PHUONG [facility] ERIC [id number] Univers 10:16:00 12:38:00 ALVIN farley [facility] Branch 2021-08-05 2021-08-07 Emergency Savanna Sue [facility] [id number] Univers 10:16:00 12:38:00 Jon Aceved[id number] [facility] Alvin Baca [id number] [facility] [id number] [place] [id number] Branch 2021-07-17 2021-07-18 Emergency Ibarra, 1.2.840.1 [id number] Methodi 17:35:00 00:55:00 Robbie [id number] [facility] [id number] Hospit a .[id number] l .8 2021-07-17 2021-07-18 Emergency IBARRA, [facility] [id number] [place] 00:00:00 00:00:[address] 2021-07-15 2021-07-17 Emergency Radha Garcia [facility] [id number] [facility] 23:45:00 12:57:[address] [facility] 2021-07-15 2021-07-17 Emergency ER MOSELEY [facility] Emergency [id number] [facility] 23:45:00 12:57:00 KERVIN 2021-07-16 2021-07-16 Outpatient [facility] [id number] [address] [place] [id number] 00:00:00 23:59:00 Francisco Medicin e 2021-07-16 2021-07-16 Orders [facility] [id number] 00:00:00 00:00:00 Only [facility] 2021-07-16 2021-07-16 Travel [facility] [id number] [facility] 00:[facility] 00:00:00 [facility] 2021-07-15 2021-07-15 Travel [facility] [id number] [facility] 00:[facility] 00:00:00 [facility] 2021-06-05 2021-06-05 Emergency X SHABBIR [facility] ERT [id number] Univers 09:04:00 13:12:00 JENNIFER itregine [facility] 2021-06-05 2021-06-05 Emergency [facility] [id number] Univers 09:04:00 13:12:00 Jennifer PATTON [id number] i ty of [place] [id number] [facility] [id number] [address] 2021-05-27 2021-05-27 Emergency [facility]RT [id number] Univers 09:58:00 12:18:00 JENNIFER farley [facility] 2021-05-27 2021-05-27 Emergency [facility] [id number] Univers 09:58:00 12:18:00 Jennifer ABDI [id number] i ty of [place] [id number] [facility] [id number] [address] 2021-05-27 2021-05-27 Orders Doctor RAS [id number] Univers 00:00:00 00:00:00 Only Unassigned, AKY [id number] ity of [place] [facility] [id number] [facility] [id number] [address] 2021-05-04 2021-05-05 Outpatient X CHUCKY SCELLIE ERCI [id number] Univers 18:35:00 12:45:00 JON miguelito [facility] 2021-05-04 2021-05-05 Emergency Shelley [facility] CENTER 1.2.840. 114 [id number] Univers 18:35:00 12:45:00 Celio Lopez 350.1.13.10 ity of Jon Acevedo 4.2.7.2.686 [facility] [phone] [address] 2021-03-31 2021-03-31 Emergency [facility] [id number] Univers 08:36:00 10:17:00 CIERA farley [facility] 2021-03-31 2021-03-31 Emergency [facility] 1.2.840.114 [id number] Univers 08:36:00 10:17:00 Ciera PATTON 350.1.13.10 [facility] 4.2.7.2.686 [facility] [id number] [facility] 084 Branch 2021-02-18 2021-02-18 Emergency , [facility] 1.2.908.601 [id number] Univers 08:21:00 11:20:00 Johan Patton 350.1.13.10 i ty of [place] 4.2.7.2.686 [facility] [phone] [facility] 084 Branch 2021-01-24 2021-01-24 Emergency , [facility] 1.2.232.068 [id number] Univers 08:32:00 10:23:00 Johan Patton 350.1.13.10 i ty of [place] 4.2.7.2.686 [facility] [id number] [facility] 084 Branch 2020-12-07 2020-12-07 Emergency [facility] 1.2.844.608 [id number] Univers 08:25:00 10:28:00 Jennifer Patton 350.1.13.10 i ty of [place] 4.2.7.2.686 [facility] [id number] [facility] 084 Branch 2020-10-30 2020-10-30 Transition Nisha Aguilar 1.2.840.114 [id number] Univers 00:00:00 00:00:00 of Karley Reid 350.1.13.10 ity of [place] 4.2.7.2.686 [facility] [id number] [facility] 403 Branch 2020-10-24 2020-10-28 [facility] Johan Porras [facility] 1.2.840.1 14 [id number] Univers 06:11:00 10:50:00 Encounter Alvin Baca 350.1.13.10 ity of [place] 4.2.7.2.686 [facility] [phone] [facility] 080 Branch 2020-07-28 2020-07-28 Emergency [facility] 1.2.263.599 [id number] 13:17:00 20:00:00 Jennifer Patton 350.1.13.10 [place] 4.2.7.2.686 [place] [id number] [facility] 2020-07-28 2020-07-28 Emergency [facility] 1.2.752.449 [id number] 9881 [facility] 13:17:00 20:00:00 Jennifer Patton 350.1.13.10 i ty of [place] 4.2.7.2.686 [facility] [id number] [place] [address] Branch 2020-06-30 2020-06-30 Emergency [facility] 1.2.840.114 [id number] 05:26:00 10:11:00 Ciera Patton 350.1.13.10 [place] 4.2.7.2.686 [place] [id number] [facility] 2020-06-30 2020-06-30 [facility] 1.2.840.114 [id number] [facility] 05:26:00 10:11:00 Ciera Patton 350.1.13.10 ity of [place] 4.2.7.2.686 [facility] [id number] [place] [address] Branch 2020-06-23 2020-06-23 Emergency Zehra [facility] 1.2.840.114 81 [id number] 13:46:00 15:46:00 Margarita Patton 350.1.13.10 [place] 4.2.7.2.686 [place] [id number] [facility] 2020-06-23 2020-06-23 Emergency Zehra, [facility] 1.2.840.114 [id number] [facility] 13:46:00 15:46:00 Margarita [place] 350.1.13.10 i ty of [place] 4.2.7.2.686 [facility] [phone] [place] [address] Branch 2020-01-28 2020-02-01 [facility] 1.2.840.1 [id number] Methodi 14:08:19 14:20:00 Kait Ruiz [address]38.[address] 3.430.2.7 Hospit a .3.514282 l .8 2019-11-09 2019-11-10 [facility] 1.2.899.756 [id number] 23:06:12 01:26:00 [place] 350.1.13.10 [place] 4.2.7.2.686 [place] [id number] [facility] 2019-11-09 2019-11-10 Emergency [facility] 1.2.932.952 [id number] 4804 Univers 23:06:12 01:26:00 [place] 350.1.13.10 i ty of [place] 4.2.7.2.686 [facility] [id number] [address] 2019-09-29 2019-09-29 Emergency Porras, [facility] 1.2.805.336 [id number] 09:39:50 11:47:00 Johan [place] 350.1.13.10 [place] [address] [place] [address] [phone] [facility] 2019-09-29 2019-09-29 Emergency Porras, [facility] 1.2.967.529 [id number] Univers 09:39:50 11:47:00 Johan [place] 350.1.13.10 i ty of [place] 4.2.7.2.[address] [place] [id number] 2019-06-16 2019-06-16 [facility] 1.2.574.604 [id number] [id number] 07:08:27 08:57:00 Joesph Bell [place] 350.1.13.10 [place] 4.2.7.2.686 [place] [phone] [facility] 2019-06-16 2019-06-16 Emergency [facility] 1.2.073.660 [id number] Univers 07:08:27 08:57:00 Adrieldarnell S [place] 350.1.13.10 ity of [place] 4.2.7.2.[address] [place] [id number] 2019-06-16 2019-06-16 Emergency X [facility] ERT [id number] Univers 07:08:27 08:57:00 WAKILI ity of [facility] 2019-06-15 2019-06-15 Emergency Shelley Shahid [place] 1.2.840.114 [id number] 11:30:00 13:30:00 Margarita Abdi 350.1.13.10 [place] 4.2.7.2.686 [place] [id number] 084 2019-06-15 2019-06-15 Emergency Shelley Shahid [place] 1.2.840.114 [id number] Univers 11:30:00 13:30:00 Margarita Patton 350.1.13.10 i ty of [place] 4.2.7.2.686 [place] [id number] [facility] 084 Branch 2019-06-15 2019-06-15 Orders Doctor RAS 1.2.840.114 [id number] 00:00:00 00:00:00 Only Unassigned, KAY 350.1.13.10 [place] [facility] 4.2.7.2.686 [id number] 009 2019-06-15 2019-06-15 Orders Doctor RAS 1.2.840.114 [id number] Univers 00:00:00 00:00:00 Only Unassigned, KAY 350.1.13.10 ity of [place] [facility] 4.2.7.2.686 Man[place] [id number] [facility] 009 Branch 2019-06-06 2019-06-06 Letter Clinic, [facility] 1.2.840.114 [id number] 00:00:00 00:00:00 (Out) Neurology [facility] 350.1.13.10 [facility] 4.2.7.2.686 [id number] [facility] 2019-06-06 2019-06-06 Letter Clinic, [facility] 1.2.840.114 [id number] Univers 00:00:00 00:00:00 (Out) Neurology Y HEALTH 350.1.13.10 ity of [facility] 4.2.7.2.686 [place] [id number] [facility] 092 Branch 2019 2019 [place], [facility] 1.2.840.114 [id number] 10:16:26 10:55:54 Care July Health 350.1.13.10 Surgical 4.2.7.2.686 Specialti [phone] es [address] [place] 2019 2019 Urgent July [place] [facility] 1.2.840.114 [id number] Univers 10:16:26 10:55:54 Care Unknown, Attending Health 350.1.13.10 ity of Surgical 4.2.7.2.686 [place] as Specialti [id number] Wi dical [address] 2019 2019 Orders Doctor RAS 1.2.840.114 [id number] 00:00:00 00:00:00 Only Unassigned, KAY 350.1.13.10 [place] [facility] 4.2.7.2.686 [id number] 009 2019 2019 Orders Doctor RAS 1.2.840.114 [id number] Univers 00:00:00 00:00:00 Only Unassigned, KAY 350.1.13.10 ity of [place] [facility] 4.2.7.2.686 Manfred as [phone] [address] 2019-05-15 2019-05-15 Emergency X [facility] ERT [id number] Univers 20:18:44 22:11:00 DEMOND dioneregine [facility] 2019-01-24 2019-01-24 Emergency [facility] 1.2.265.981 [id number] 15:49:15 22:27:00 Jerry Patton 350.1.13.10 [place] 4.2.7.2.686 [place] [id number] [facility] 2019-01-24 2019-01-24 Emergency [facility] 1.2.685.162 [id number] [facility] 15:49:15 22:27:00 Jerry Patton 350.1.13.10 i ty of [place] 4.2.7.2.686 [facility] [id number] [address] 2019-01-24 2019-01-24 Orders Doctor MCGINNIS 1.2.840.114 [id number] 00:00:00 00:00:00 Only Unassigned, KAY 350.1.13.10 [place] [facility] 4.2.7.2.686 [id number] 009 2019-01-24 2019-01-24 Orders Doctor RAS 1.2.840.114 [id number] Univers 00:00:00 00:00:00 Only Unassigned, KAY 350.1.13.10 ity of [place] [facility] 4.2.7.2.686 Manfred as [id number] [address] 2018-12-21 2018-12-21 [facility] 1.2.956.311 [id number] 17:07:20 19:42:00 Demond [place] 350.1.13.10 [place] 4.2.7.2.686 [place] [id number] [facility] 2018-12-21 2018-12-21 [facility] 1.2.959.322 [id number] [facility] 17:07:20 19:42:00 Demond [place] 350.1.13.10 i ty of [place] 4.2.7.2.686 [place] [facility] [id number] [address] 2018-12-21 2018-12-21 Orders Doctor RAS 1.2.840.114 [id number] 00:00:00 00:00:00 Only Unassigned, KAY 350.1.13.10 [place] [facility] 4.2.7.2.686 [id number] 009 2018-12-21 2018-12-21 Orders Doctor RAS 1.2.840.114 [id number] Univers 00:00:00 00:00:00 Only Unassigned, KAY 350.1.13.10 ity of [place] [facility] 4.2.7.2.686 Man[place] as [phone] [address] Results Test Description Test Time Test [...] See_Comment [Au tomated message] The system which [employer] nerated this result transmit luis reference range: [...] 34.3 g/dL 31.2-35 RDW-SD (test code = 86793-9) 41.1 fL 38.5-51.6 RDW-CV (test code = 788-0) 13.1 % 12.1-15.4 PLT (test code = 777-3) See_Comment [Au tomated message] The system which [employer] nerated this result transmit luis reference range: 150 - 32 8 10*3/?L. The reference range was not used to interpret th is result as normal/abnormal . MPV (test code = 11293-7) 9.9 fL 9.8-13 NRBC/100 WBC (test code = See_Comment [ Automated message] The 8578099240) system which [employer] nerated this result transmit luis reference range: 0.0 - 10 .0 /100 WBCs. The reference r javier was not used to interpr et this result as normal/abnor mal. NRBC x10^3 (test code = See_Comment [Au tomated message] The 9063586409) system which [employer] nerated this result transmit luis reference range: 10*3/?L. The reference range was not u sed to interpret this result as normal/abnormal . GRAN MAT (NEUT) % (test code 61.2 % = 770-8) IMM GRAN % (test code = 0.70 % 2394405755) LYMPH % (test code = 736-9) 20.2 % MONO % (test code = 5905-5) 14.0 % EOS % (test code = 713-8) 3.3 % BASO % (test code = 706-2) 0.6 % GRAN MAT x10^3(ANC) (test 8.05 10*3/uL 1.99-6.95 H code = 6311435650) IMM GRAN x10^3 (test code = 0.09 10*3/uL 0-0.06 H 7460062884) LYMPH x10^3 (test code = 2.65 10*3/uL 1.09-3.23 731-0) MONO x10^3 (test code = 1.84 10*3/uL 0.36-1.02 H 742-7) EOS x10^3 (test code = 0.43 10*3/uL 0.06-0.53 711-2) BASO x10^3 (test code = 0.08 10*3/uL 0.01-0.09 704-7) Lab Interpretation (test Abnormal code = 73416-7) [facility]12 21:53:54 Test Item Value Reference Range Interpretation Comments MAGNESIUM (test code = 9971246911) 1.4 mg/dL 1.7-2.4 L Lab Interpretation (test code = Abnormal 89066-4) [facility]OLIC PANEL (18595)2021-11-19 21:53:34 Test Item Value Reference Range Interpretation Comments NA (test code = 131 mmol/L 135-145 L 8324911682) K (test code = 4.3 mmol/L 3.5-5 4247322616) CL (test code = 87 mmol/L 98-108 L 1222877882) CO2 TOTAL (test code = 25 mmol/L 23-31 3413593129) AGAP (test code = 2-16 H 3465992045) BUN (test code = 25 mg/dL 7-23 H 4965378527) GLUCOSE (test code = 94 mg/dL 70-110 0893067908) CREATININE (test code = 2.10 mg/dL 0.6-1.25 H 5850679252) TOTAL BILI (test code = 1.2 mg/dL 0.1-1.1 H 6644227655) CALCIUM (test code = 10.4 mg/dL 8.6-10.6 2690647897) T PROTEIN (test code = 8.7 g/dL 6.3-8.2 H 4085988214) ALBUMIN (test code = 5.2 g/dL 3.5-5 H 5969856921) ALK PHOS (test code = 92 U/L 34-122 9007210770) ALTv (test code = 33 U/L 5-50 1742-6) AST(SGOT) (test code = 40 U/L 13-40 7496528653) eGFR (test code = mL/min/1.73m2 0658606542) TAMIKO (test code = TAMIKO) Association of [...] tests). Lab Interpretation Abnormal (test code = 00939-0) [facility] [id number] 21:53:33 Test Item Value Reference Range Interpretation Comments CK (test code = 9934108877) 267 U/L 33-194 H Lab Interpretation (test code = Abnormal 56365-7) [facility] CenterTROP[facility]IN [id number] 02:08:36 Test Item Value Reference Interpretation Comments Range TROPONIN I (test <0.012 See_Comment [Automated code = 3006537953) message] The system which generated this result [...] biotin. Lab Interpretation Normal (test code = 67345-8) [facility] CenterETHANOL2022-05-23 01:58:14 Test Item Value Reference Range Interpretation Comments ALCOHOL (test code = 81 mg/dL 9930853409) TAMIKO (test code = TAMIKO) <10 Dwaknajc67-208 Toxic>100 Depression of WATCH CRYSTAL MOLDER>400 Fatalities Reported [facility]2022-05-23 01:57:54 Test Item Value Reference Range Interpretation Comments MAGNESIUM (test code = 1748672102) 1.7 mg/dL 1.7-2.4 Lab Interpretation (test code = Normal 92580-4) [facility] MET[facility]OLIC PANEL (92377)2021-09-30 01:57:34 Test Item Value Reference Range Interpretation Comments NA (test code = 141 mmol/L 135-145 6448227874) K (test code = 4.2 mmol/L 3.5-5.0 4191893571) CL (test code = 106 mmol/L 98-108 3577472283) CO2 TOTAL (test code = 22 mmol/L 23-31 L 7172559397) AGAP (test code = 2-16 9674617929) BUN (test code = 14 mg/dL 7-23 8686885991) GLUCOSE (test code = 117 mg/dL 70-110 H 2352881210) CREATININE (test code = 1.12 mg/dL 0.60-1.25 0242353238) TOTAL BILI (test code = 0.2 mg/dL 0.1-1.1 2968405606) CALCIUM (test code = 9.0 mg/dL 8.6-10.6 2376026581) T PROTEIN (test code = 7.4 g/dL 6.3-8.2 8600664871) ALBUMIN (test code = 4.5 g/dL 3.5-5.0 0826525364) ALK PHOS (test code = 65 U/L 34-122 0471408257) ALTv (test code = 17 U/L 5-50 1742-6) AST(SGOT) (test code = 21 U/L 13-40 3495543042) eGFR (test code = mL/min/1.73m2 5565352304) TAMIKO (test code = TAMIKO) Association of [...] tests). Lab Interpretation Abnormal (test code = 88807-4) [facility]CREAT[facility] [id number] 01:57:14 Test Item Value Reference Range Interpretation Comments CK (test code = 7179649699) 57 U/L 33-194 Lab Interpretation (test code = Normal 93439-2) [facility] CenterCB WITH [id number] 01:46:12 Test Item Value Reference Range Interpretation [...] RDW-SD (test code = 45.1 fL 38.5-51.6 55349-2) RDW-CV (test code = 13.4 % 12.1-15.4 788-0) PLT (test code = See_Comment [Automated 777-3) message] The sy stem which generated this result transmitted reference range : 150 - 328 10*3/ ?L. The reference r javier was not used to interpret this result as normal/abnormal . MPV (test code = 9.7 fL 9.8-13.0 L 51694-1) NRBC/100 WBC (test See_Comment [Automat ed code = 5893934821) message] The system which generated this result transmitted reference range : 0.0 - 10.0 /100 WBCs. The refer ence range was not u sed to interpret th is result as normal/abnormal . NRBC x10^3 (test code <0.01 See_Comment [Auto mated = 3739672223) message] The s [employer] which generated this result transmitted reference range : 10*3/?L. The reference range was not used to interpret this result as normal/abnormal . GRAN MAT (NEUT) % 45.6 % (test code = 770-8) IMM GRAN % (test code 0.40 % = 3842339304) LYMPH % (test code = 39.4 % 736-9) MONO % (test code = 8.4 % 5905-5) EOS % (test code = 5.4 % 713-8) BASO % (test code = 0.8 % 706-2) GRAN MAT x10^3(ANC) 3.51 10*3/uL 1.99-6.95 (test code = 4460013527) IMM GRAN x10^3 (test 0.03 10*3/uL 0.00-0.06 code = 5032803719) LYMPH x10^3 (test code 3.04 10*3/uL 1.09-3.23 = 731-0) MONO x10^3 (test code 0.65 10*3/uL 0.36-1.02 = 742-7) EOS x10^3 (test code = 0.42 10*3/uL 0.06-0.53 711-2) BASO x10^3 (test code 0.06 10*3/uL 0.01-0.09 = 704-7) Lab Interpretation Abnormal (test code = 85562-2) [facility] [id number] 02:03:45 Test Item Value Reference Interpretation Comments Range TROPONIN I (test 0.003 ng/mL See_Comment [Automated code = 0159645041) message] The system which generated this result [...] biotin. Lab Interpretation Normal (test code = 04044-9) [facility] [id number] 14:14:18 Test Item Value Reference Interpretation Comments Range TROPONIN I (test 0.003 ng/mL See_Comment [Automated code = 5640256577) message] The system which generated this result [...] biotin. Lab Interpretation Normal (test code = 99772-3) [facility] CenterN-TERMINAL [id number] 14:11:01 Test Item Value Reference Range Interpretation Comments NT-proBNP (test code 14 pg/mL See_Comment [Autom ated = 8897883203) message] The system which generated this result transmitted reference range : <=125. The reference range was not used to interpret this result as normal/abnormal . TAMIKO (test code = TAMIKO) Biotin has been reported to cause a negative bias, interpret results relative to patient's use of biotin. Lab Interpretation Normal (test code = 93074-0) [facility]UM2022-05-05 14:03:57 Test Item Value Reference Range Interpretation Comments MAGNESIUM (test code = 6778836276) 1.8 mg/dL 1.7-2.4 Lab Interpretation (test code = Normal 66782-6) [facility] MET[facility]OLIC PANEL (23587)2021-09-12 14:03:37 Test Item Value Reference Range Interpretation Comments NA (test code = 140 mmol/L 135-145 5925829890) K (test code = 4.6 mmol/L 3.5-5.0 9519179565) CL (test code = 105 mmol/L 98-108 1761983793) CO2 TOTAL (test code = 25 mmol/L 23-31 0419945056) AGAP (test code = 2-16 7904287902) BUN (test code = 11 mg/dL 7-23 9907440024) GLUCOSE (test code = 111 mg/dL 70-110 H 5479738808) CREATININE (test code = 0.65 mg/dL 0.60-1.25 1756058940) TOTAL BILI (test code = 0.4 mg/dL 0.1-1.7 9962424945) CALCIUM (test code = 8.8 mg/dL 8.6-10.6 0968717742) T PROTEIN (test code = 7.7 g/dL 6.3-8.2 1407578476) ALBUMIN (test code = 4.6 g/dL 3.5-5.0 1618996787) ALK PHOS (test code = 73 U/L 34-122 1360206019) ALTv (test code = 35 U/L 5-50 1742-6) AST(SGOT) (test code = 30 U/L 13-40 9364828005) eGFR (test code = mL/min/1.73m2 0841596435) TAMIKO (test code = TAMIKO) Association of [...] tests). Lab Interpretation Abnormal (test code = 24092-0) [facility] CenterLIPASE2022-05-05 14:03:37 Test Item Value Reference Range Interpretation Comments LIPASE (test code = 8370556469) 110 U/L 0-220 Lab Interpretation (test code = Normal 28988-7) [facility] WITH [id number] 13:31:54 Test Item Value Reference Range Interpretation Comments WBC (test code = See_Comment [Automated 5818-2) message] The sy stem which generated this result transmitted reference range : 4.20 - 10.70 10*3/?L. The reference range was not used to interpret this result as normal/abnormal . RBC (test code = See_Comment [Automated 947-8) message] The sy stem which generated this [...] RDW-SD (test code = 44.7 fL 38.5-51.6 47378-9) RDW-CV (test code = 13.3 % 12.1-15.4 788-0) PLT (test code = See_Comment [Automated 777-3) message] The sy stem which generated this result transmitted reference range : 150 - 328 10*3/ ?L. The reference r javier was not used to interpret this result as normal/abnormal . MPV (test code = 10.0 fL 9.8-13.0 53650-4) NRBC/100 WBC (test See_Comment [Automat ed code = 0193835143) message] The system which generated this result transmitted reference range : 0.0 - 10.0 /100 WBCs. The refer ence range was not u sed to interpret th is result as normal/abnormal . NRBC x10^3 (test code <0.01 See_Comment [Auto mated = 5234170730) message] The s ystem which generated this result transmitted reference range : 10*3/?L. The reference range was not used to interpret this result as normal/abnormal . GRAN MAT (NEUT) % 54.1 % (test code = 770-8) IMM GRAN % (test code 0.70 % = 2979816266) LYMPH % (test code = 26.6 % 736-9) MONO % (test code = 12.7 % 5905-5) EOS % (test code = 5.0 % 713-8) BASO % (test code = 0.9 % 706-2) GRAN MAT x10^3(ANC) 4.97 10*3/uL 1.99-6.95 (test code = 1335781238) IMM GRAN x10^3 (test 0.06 10*3/uL 0.00-0.06 code = 1966383759) LYMPH x10^3 (test code 2.44 10*3/uL 1.09-3.23 = 731-0) MONO x10^3 (test code 1.17 10*3/uL 0.36-1.02 H = 742-7) EOS x10^3 (test code = 0.46 10*3/uL 0.06-0.53 711-2) BASO x10^3 (test code 0.08 10*3/uL 0.01-0.09 = 704-7) Lab Interpretation Abnormal (test code = 71775-6) [facility] CenterTroponin [id number] 10:22:16 Test Item Value Reference Interpretation Comments Range TROPONIN I (test 0.003 ng/mL See_Comment [Automated code = 9395697706) message] The system which generated this result [...] biotin. Lab Interpretation Normal (test code = 91411-3) [facility] CenterMagnesium [id number] 10:12:18 Test Item Value Reference Range Interpretation Comments MAGNESIUM (test code = 7898407796) 1.7 mg/dL 1.7-2.4 Lab Interpretation (test code = Normal 67563-4) [facility] CenterBasi Metabolic Panel (NA, K, CL, CO2, GLUCOSE, BUN, CREATININE, CA)2021-09-06 10:11:58 Test Item Value Reference Range Interpretation Comments NA (test code = 136 mmol/L 135-145 6874796151) K (test code = 3.9 mmol/L 3.5-5.0 0597215829) CL (test code = 101 mmol/L 98-108 4703931847) CO2 TOTAL (test code 27 mmol/L 23-31 = 4688600547) AGAP (test code = 2-16 3939666862) BUN (test code = 14 mg/dL 7-23 6187531531) GLUCOSE (test code = 95 mg/dL 70-110 1414435958) CREATININE (test code 0.81 mg/dL 0.60-1.25 = 2250032372) CALCIUM (test code = 8.7 mg/dL 8.6-10.6 0834740779) eGFR (test code = mL/min/1.73m2 9377521296) TAMIKO (test code = TAMIKO) Association of [...] urine or abnormalities in imaging tests). [facility] CenterGLYCOSYLATED HEMOGLOBIN (A1C)2021-09-05 23:56:19 Test Item Value Reference Range Interpretation Comments HGB A1C (test code = 5.6 % 4.0-5.7 4548-4) TAMIKO (test code = TAMIKO) Reference RangesNormal: <5.7%Prediabetes: 5.7 - 6.4%Diabetes: > 6.5% Lab Interpretation (test Normal code = 38247-3) [facility] CenterTroponin [id number] 23:52:47 Test Item Value Reference Interpretation Comments Range TROPONIN I (test 0.003 ng/mL See_Comment [Automated code = [id number]) message] The system which generated this result [...] biotin. Lab Interpretation Normal (test code = 49974-2) [facility] (07117)(TOTAL CHOLESTEROL, TRIGLYCERIDES, HDL)2021-09-05 23:08:35 Test Item Value Reference Range Interpretation Comments CHOL (test code = 148 mg/dL 120-200 [id number]) HDL (test code = 39 mg/dL >40 L 7992560072) HDLC RATIO (test code = See_Comment [Au tomated message] [id number]) The system [employer] generated this result transmit luis reference range : <=5.0. The refe rence range was not u sed to interpret th is result as normal/abnormal . TRIG (test code = 150 mg/dL 30-170 3136165260) LDL CHOL (test code = 79 mg/dL See_Comment [Auto mated message] 89524-8) The system [employer] generated this result transmit luis reference range : <=160. The refe rence range was not u sed to interpret th is result as normal/abnormal . VLDL (test code = 30 mg/dL 5-60 7859857697) Lab Interpretation (test Abnormal code = 53089-4) [facility]2021-09-05 21:38:59 Test Item Value Reference Range Interpretation Comments LVIDD (test code = 4.60 cm [id number]) IVS (test code = 1.48 cm 6734001488) Interventricular Septum 1.48 cm Diastolic Thickness by 2D (test code = 7949034) LVPWD (test code = 1.25 cm 8047677671) PW (test code = 1.25 cm 0.6-1.3 8386638468) EF(Teich) (test code = 59.40 % 1803527256) LVIDS (test code = 3.20 cm 8345248682) FS (test code = 31 % 9013387625) EF - 2D (test code = 59.40 % 40544516) LVOT diameter (test code 2.06 cm = 6672718521) ACS (test code = 1.98 cm 5445283471) Ao root annulus (test 2.9 cm code = 3693811734) Ao root diam (test code = 2.90 cm 0532748123) Aortic root (test code = 2.9 cm 1078935475) LA size (test code = 3.9 cm [id number]) Radiology Study observation (narrative) (test code = 63592-8) TAMIKO (test code = TAMIKO) ?Left?Ventricle: Left [...] (99.8 kg) 2.17 sq meters 120/59 88 [facility] Lead ROUTINE [id number] 17:41:17 Test Item Value Reference Range Interpretation Comments Lab Interpretation (test code = Abnormal 10490-2) [facility]TR[facility] [id number] 16:19:01 Test Item Value Reference Interpretation Comments Range TROPONIN I (test 0.002 ng/mL See_Comment [Automated code = 7618748222) message] The system which generated this result [...] biotin. Lab Interpretation Normal (test code = 40492-9) [facility]AL [id number]-[id number] 16:15:43 Test Item Value Reference Range Interpretation Comments NT-proBNP (test code 17 pg/mL See_Comment [Autom ated = 8969778225) message] The system which generated this result transmitted reference range : <=125. The reference range was not used to interpret this result as normal/abnormal . TAMIKO (test code = TAMIKO) Biotin has been reported to cause a negative bias, interpret results relative to patient's use of biotin. Lab Interpretation Normal (test code = 42629-4) [facility] CenterCOMP. METABOLIC PANEL (69731)2021-09-05 16:07:19 Test Item Value Reference Range Interpretation Comments NA (test code = 141 mmol/L 135-145 8032876553) K (test code = 4.5 mmol/L 3.5-5.0 4420707381) CL (test code = 104 mmol/L 98-108 5214958012) CO2 TOTAL (test code = 23 mmol/L 23-31 3046274998) AGAP (test code = 2-16 6489082205) BUN (test code = 8 mg/dL 7-23 0281519983) GLUCOSE (test code = 127 mg/dL 70-110 H 3075433623) CREATININE (test code = 0.66 mg/dL 0.60-1.25 2850141972) TOTAL BILI (test code = 0.3 mg/dL 0.1-1.1 0046664048) CALCIUM (test code = 8.9 mg/dL 8.6-10.6 4809522700) T PROTEIN (test code = 7.7 g/dL 6.3-8.2 4251865561) ALBUMIN (test code = 4.6 g/dL 3.5-5.0 1006435637) ALK PHOS (test code = 66 U/L 34-122 4999837485) ALTv (test code = 89 U/L 5-50 H 1742-6) AST(SGOT) (test code = 72 U/L 13-40 H 2840208204) eGFR (test code = mL/min/1.73m2 1415589612) TAMIKO (test code = TAMIKO) Association of [...] tests). Lab Interpretation Abnormal (test code = 85556-1) [facility] CenterLIPASE2022-04-28 16:06:59 Test Item Value Reference Range Interpretation Comments LIPASE (test code = 0749826696) 83 U/L 0-220 Lab Interpretation (test code = Normal 48833-7) [facility] CenterD-[id number] 16:05:17 Test Item Value Reference Interpretation Comments Range D-DIMER (test code = <0.27 See_Comment [Autom ated 2890027056) message] The system which generated this result [...] diagnosis. Lab Interpretation Normal (test code = 45941-6) [facility] WITH [id number] 15:45:55 Test Item Value Reference Range Interpretation Comments WBC (test code = See_Comment [Automated message] 6690-2) The system [employer] generated this result transmitted ref erence range: 4.20 - 1 0.70 10*3/?L. The re ference range was not u sed to interpret this result as normal/abnor mal. RBC (test code = See_Comment [Automated message] 789-8) The system [employer] generated this result transmitted ref erence range: [...] RDW-SD (test code 46.4 fL 38.5-51.6 = 52686-5) RDW-CV (test code 13.7 % 12.1-15.4 = 788-0) PLT (test code = See_Comment [Automated message] 777-3) The system whic h generated this result transmitted ref erence range: 150 - 32 8 10*3/?L. The re ference range was not u sed to interpret this result as normal/abnor mal. MPV (test code = 10.3 fL 9.8-13.0 56619-3) NRBC/100 WBC (test See_Comment [Automat ed message] code = 0543500640) The syste m which generated this result transmitted ref erence range: 0.0 - 10 .0 /100 WBCs. The refer ence range was not u sed to interpret this result as normal/abnor mal. NRBC x10^3 (test <0.01 See_Comment [Automated message] code = 7010800358) The syste m which generated this result transmitted ref erence range: 10*3/?L. The reference range was not used to interpr et this result as normal/abnormal . GRAN MAT (NEUT) % 49.4 % (test code = 770-8) IMM GRAN % (test 0.20 % code = 0146447399) LYMPH % (test code 34.1 % = 736-9) MONO % (test code 10.4 % = 5905-5) EOS % (test code = 4.7 % 713-8) BASO % (test code 1.2 % = 706-2) GRAN MAT 2.97 10*3/uL 1.99-6.95 x10^3(ANC) (test code = 3340242693) IMM GRAN x10^3 <0.03 0.00-0.06 (test code = 1195329698) LYMPH x10^3 (test 2.04 10*3/uL 1.09-3.23 code = 731-0) MONO x10^3 (test 0.62 10*3/uL 0.36-1.02 code = 742-7) EOS x10^3 (test 0.28 10*3/uL 0.06-0.53 code = 711-2) BASO x10^3 (test 0.07 10*3/uL 0.01-0.09 code = 704-7) [facility] CenterTransthoracic echo (TTE)2021-08-06 21:59:45 Test Item Value Reference Range Interpretation Comments LVIDD (test code = 4.40 cm 2920675928) IVS (test code = 1.50 cm 3347225587) Interventricular Septum 1.50 cm Diastolic Thickness by 2D (test code = 4166447) LVPWD (test code = 1.46 cm 7539220151) PW (test code = 1.46 cm 0.6-1.7 8019921999) EF(Teich) (test code = 56.70 % 7706459849) LVIDS (test code = 3.10 cm 1638587757) FS (test code = 30 % 7414808934) EF - 2D (test code = 56.70 % 84917109) LVOT diameter (test code 2.19 cm = 5093028347) ACS (test code = 2.16 cm 9039147924) Ao root annulus (test 3.5 cm code = 4494996187) Ao root diam (test code = 3.50 cm 9568612147) Aortic root (test code = 3.5 cm 8324960066) LA size (test code = 3.4 cm 9605592392) E wave decelartion time 0.14 s (test code = 4813191975) MV Peak E Scott (test code 83.6 cm/s = 0085845583) MV Peak A Scott (test code 59.0 cm/s = 7946773446) E/A ratio (test code = ratio 4802811833) MR max PG (test code = 90.10 mm[Hg] 1620534748) MR max scott (test code = 474.50 cm/s 0889919530) Mr max scott (test code = 474.5 m/s 4224517081) MV Prop V (test code = 70.20 cm/s 5352517918) Tapse (test code = 2.44 cm 5401358296) TR Peak Scott (test code = 238.4 cm/s 2391662560) Triscuspid Valve mmHg Regurgitation Peak Gradient (test code = 2444606647) LVOT stroke volume (test 78.90 cm3 code = 1743261860) LVOT peak scott (test code 99.0 cm/s = 9034613598) LVOT mn grad (test code = mmHg 0421748297) AV LVOT peak gradient mmHg (test code = 2368416142) LVOT peak VTI (test code 21.0 cm = 9104806528) LV V1 mean (test code = 62.40 cm/s 2176796989) Aortic valve mean 78.6 cm/s velocity (test code = 8388990322) Ao peak scott (test code = 127.2 cm/s 2359313796) Ao VTI (test code = 23.2 cm 5079553404) AV area by cont VTI (test 3.4 cm2 code = 5710438355) AV area peak scott (test 2.9 cm2 code = 1359539508) Ao max PG (test code = 6.50 mm[Hg] 1984379977) AV peak gradient (test mmHg code = 5126539698) AV valve area (test code 3.40 cm2 = 3835902906) AV mean gradient (test mmHg code = 4990673616) Radiology Study observation (narrative) (test code = 88011-4) TAMIKO (test code = TAMIKO) ?Left?Ventricle: Left [...] (104.3 kg) 2.22 sq meters 150/92 [facility] [id number] 15:14:07 Test Item Value Reference Interpretation Comments Range TROPONIN I (test 0.004 ng/mL See_Comment [Automated code = 6661678271) message] The system which generated this result [...] biotin. Lab Interpretation Normal (test code = 10187-6) [facility] CenterLIPID PANEL (53722)(TOTAL CHOLESTEROL, TRIGLYCERIDES, HDL)2021-08-06 14:47:02 Test Item Value Reference Range Interpretation Comments CHOL (test code = 211 mg/dL 120-200 H 1401135754) HDL (test code = 31 mg/dL >40 L 4024410339) HDLC RATIO (test code = See_Comment H [Au tomated message] 0294990213) The system [employer] generated this result transmit luis reference range : <=5.0. The refe rence range was not u sed to interpret th is result as normal/abnormal . TRIG (test code = 186 mg/dL 30-170 H 2993787488) LDL CHOL (test code = 143 mg/dL See_Comment [Auto mated message] 16180-9) The system [employer] generated this result transmit luis reference range : <=160. The refe rence range was not u sed to interpret th is result as normal/abnormal . VLDL (test code = 37 mg/dL 5-60 7901757556) Lab Interpretation (test Abnormal code = 53049-6) [facility] CenterCB with [id number] 11:04:14 Test Item Value Reference Range Interpretation Comments WBC (test code = See_Comment [Automated message] 6690-2) The system [employer] generated this result transmitted ref erence range: 4.20 - 1 0.70 10*3/?L. The re ference range was not u sed to interpret this result as normal/abnor mal. RBC (test code = See_Comment [Automated message] 789-8) The system [employer] generated this result transmitted ref erence range: [...] RDW-SD (test code 46.8 fL 38.5-51.6 = 81089-0) RDW-CV (test code 13.7 % 12.1-15.4 = 788-0) PLT (test code = See_Comment [Automated message] 777-3) The system whic h generated this result transmitted ref erence range: 150 - 32 8 10*3/?L. The re ference range was not u sed to interpret this result as normal/abnor mal. MPV (test code = 11.1 fL 9.8-13.0 40066-0) NRBC/100 WBC (test See_Comment [Automat ed message] code = 2525211678) The syste m which generated this result transmitted ref erence range: 0.0 - 10 .0 /100 WBCs. The refer ence range was not u sed to interpret this result as normal/abnor mal. NRBC x10^3 (test <0.01 See_Comment [Automated message] code = 1724867422) The syste m which generated this result transmitted ref erence range: 10*3/?L. The reference range was not used to interpr et this result as normal/abnormal . GRAN MAT (NEUT) % 51.5 % (test code = 770-8) IMM GRAN % (test 0.30 % code = 3909971585) LYMPH % (test code 29.7 % = 736-9) MONO % (test code 12.9 % = 5905-5) EOS % (test code = 4.6 % 713-8) BASO % (test code 1.0 % = 706-2) GRAN MAT 3.66 10*3/uL 1.99-6.95 x10^3(ANC) (test code = 1276139169) IMM GRAN x10^3 <0.03 0.00-0.06 (test code = 8334614886) LYMPH x10^3 (test 2.11 10*3/uL 1.09-3.23 code = 731-0) MONO x10^3 (test 0.92 10*3/uL 0.36-1.02 code = 742-7) EOS x10^3 (test 0.33 10*3/uL 0.06-0.53 code = 711-2) BASO x10^3 (test 0.07 10*3/uL 0.01-0.09 code = 704-7) [facility] Metabolic Panel (NA, K, CL, CO2, GLUCOSE, BUN, CREATININE, CA)2021-08-06 11:02:13 Test Item Value Reference Range Interpretation Comments NA (test code = 138 mmol/L 135-145 0473629338) K (test code = 3.7 mmol/L 3.5-5.0 0120857218) CL (test code = 102 mmol/L 98-108 9042525494) CO2 TOTAL (test code = 30 mmol/L 23-31 2208708236) AGAP (test code = 2-16 6509145631) BUN (test code = 12 mg/dL 7-23 5222925607) GLUCOSE (test code = 91 mg/dL 70-110 9755054964) CREATININE (test code = 0.74 mg/dL 0.60-1.25 2536465015) CALCIUM (test code = 8.4 mg/dL 8.6-10.6 L 4181576000) eGFR (test code = mL/min/1.73m2 6323849355) TAMIKO (test code = TAMIKO) Association of [...] tests). Lab Interpretation Abnormal (test code = 88771-2) [facility] CenterMagnesium Dfkor0830-40-00 11:02:13 Test Item Value Reference Range Interpretation Comments MAGNESIUM (test code = 7186705173) 1.6 mg/dL 1.7-2.4 L Lab Interpretation (test code = Abnormal 90918-8) [facility] CenterPhosphorus [id number] 05:25:31 Test Item Value Reference Range Interpretation Comments PHOSPHORUS (test code = 4483846429) 3.6 mg/dL 2.5-5.0 Lab Interpretation (test code = Normal 08798-5) [facility] CenterTROPONIN [id number] 01:47:25 Test Item Value Reference Interpretation Comments Range TROPONIN I (test 0.004 ng/mL See_Comment [Automated code = 9242435006) message] The system which generated this result [...] biotin. Lab Interpretation Normal (test code = 04112-3) [facility] CenterD-[id number] 01:13:57 Test Item Value Reference Interpretation Comments Range D-DIMER (test code = See_Comment H [Autom ated 5816168020) message] The system which generated this result [...] diagnosis. Lab Interpretation Abnormal (test code = 61969-4) [facility] CenterTROPONIN [id number] 18:20:26 Test Item Value Reference Interpretation Comments Range TROPONIN I (test 0.003 ng/mL See_Comment [Automated code = 2885624145) message] The system which generated this result [...] biotin. Lab Interpretation Normal (test code = 01842-4) [facility] CenterN-TERMINAL [id number] 18:17:04 Test Item Value Reference Range Interpretation Comments NT-proBNP (test code 16 pg/mL See_Comment [Autom ated = 5031269664) message] The system which generated this result transmitted reference range : <=125. The reference range was not used to interpret this result as normal/abnormal . TAMIKO (test code = TAMIKO) Biotin has been reported to cause a negative bias, interpret results relative to patient's use of biotin. Lab Interpretation Normal (test code = 40069-1) [facility] CenterMAGNESIUM2022-03-28 18:09:02 Test Item Value Reference Range Interpretation Comments MAGNESIUM (test code = 6616785398) 1.9 mg/dL 1.7-2.4 Lab Interpretation (test code = Normal 40491-8) [facility] CenterCOMP. METABOLIC PANEL (47943)2021-08-05 18:08:42 Test Item Value Reference Range Interpretation Comments NA (test code = 149 mmol/L 135-145 H 5990742918) K (test code = 4.3 mmol/L 3.5-5.0 4137668798) CL (test code = 110 mmol/L 98-108 H 9667962008) CO2 TOTAL (test code = 27 mmol/L 23-31 5663796052) AGAP (test code = 2-16 6143339023) BUN (test code = 4 mg/dL 7-23 L 0799161323) GLUCOSE (test code = 121 mg/dL 70-110 H 0875359434) CREATININE (test code = 0.74 mg/dL 0.60-1.25 0238109408) TOTAL BILI (test code = 0.4 mg/dL 0.1-1.7 1043229493) CALCIUM (test code = 8.9 mg/dL 8.6-10.6 0080202305) T PROTEIN (test code = 7.5 g/dL 6.3-8.2 6812305278) ALBUMIN (test code = 4.4 g/dL 3.5-5.0 8580605776) ALK PHOS (test code = 68 U/L 34-122 3510087555) ALTv (test code = 20 U/L 5-50 1742-6) AST(SGOT) (test code = 31 U/L 13-40 0331855368) eGFR (test code = mL/min/1.73m2 9651004555) TAMIKO (test code = TAMIKO) Association of [...] tests). Lab Interpretation Abnormal (test code = 21854-5) [facility] WITH [id number] 17:49:58 Test Item Value Reference Range Interpretation Comments WBC (test code = See_Comment [Automated 1282-2) message] The sy stem which generated this result transmitted reference range : 4.20 - 10.70 10*3/?L. The reference range was not used to interpret this result as normal/abnormal . RBC (test code = See_Comment [Automated 395-3) message] The sy stem which generated this [...] RDW-SD (test code = 46.6 fL 38.5-51.6 32226-2) RDW-CV (test code = 13.7 % 12.1-15.4 788-0) PLT (test code = See_Comment H [Automated 777-3) message] The sy stem which generated this result transmitted reference range : 150 - 328 10*3/ ?L. The reference r javier was not used to interpret this result as normal/abnormal . MPV (test code = 10.0 fL 9.8-13.0 70437-5) NRBC/100 WBC (test See_Comment [Automat ed code = 9334755000) message] The system which generated this result transmitted reference range : 0.0 - 10.0 /100 WBCs. The refer ence range was not u sed to interpret th is result as normal/abnormal . NRBC x10^3 (test code <0.01 See_Comment [Auto mated = 1911407271) message] The s ystem which generated this result transmitted reference range : 10*3/?L. The reference range was not used to interpret this result as normal/abnormal . GRAN MAT (NEUT) % 45.8 % (test code = 770-8) IMM GRAN % (test code 0.40 % = 5295806880) LYMPH % (test code = 41.7 % 736-9) MONO % (test code = 6.6 % 5905-5) EOS % (test code = 4.8 % 713-8) BASO % (test code = 0.7 % 706-2) GRAN MAT x10^3(ANC) 3.68 10*3/uL 1.99-6.95 (test code = 7227334197) IMM GRAN x10^3 (test 0.03 10*3/uL 0.00-0.06 code = 3452397129) LYMPH x10^3 (test code 3.36 10*3/uL 1.09-3.23 H = 731-0) MONO x10^3 (test code 0.53 10*3/uL 0.36-1.02 = 742-7) EOS x10^3 (test code = 0.39 10*3/uL 0.06-0.53 711-2) BASO x10^3 (test code 0.06 10*3/uL 0.01-0.09 = 704-7) Lab Interpretation Abnormal (test code = 64788-8) [facility] 12 upmt6476-13-74 01:01:48 Test Item Value Reference Range Interpretation Comments Ventricular rate (test 107 code = 253) Atrial rate (test code = 107 255) MS interval (test code = 126 266) QRSD interval (test code 82 = 260) QT interval (test code = 350 264) QTC interval (test code 467 = 265) P axis 1 (test code = 36 267) QRS axis 1 (test code = 50 268) T wave axis (test code = 26 270) EKG impression (test Sinus code = 273) tachycardia-Otherwise normal ECG-No previous ECGs available-Electronica lly Signed By Hang Kelly MD ([id number]) on 07/17/2021 7:01:47 PM [facility] fugbelu3087-73-26 00:40:00 Test Item Value Reference Range Interpretation Comments Urine culture (test SEE COMMENT Bacteriu wilfred screen code = 4651540) negative. [facility] [Presence] in Respiratory specimen by PHILIP with probe [id number] 22:29:39 Test Item Value Reference Range Interpretation Comments SARS-CoV-2 (COVID-19) RNA Not detected [Presence] in Respiratory specimen by PHILIP with probe detection (test code = 28279-3) Whether patient is employed in a Unknown healthcare setting (test code = 40473-2) Whether the patient has symptoms Unknown related to condition of interest (test code = 13032-4) Whether the patient was Unknown hospitalized for condition of interest (test code = 00931-1) Whether the patient was admitted Unknown to intensive care unit (ICU) for condition of interest (test code = 34248-5) Whether patient resides in a Unknown congregate care setting (test code = 11901-2) status (test code = Unknown 57199-5) Date and time of symptom onset Unknown (test code = 31009-7) MARTINEZ CONFUCIANIST OIJIDlwydjp0800-61-10 04:33:29 Test Item Value Reference Range Interpretation Comments Ethanol Lvl (test code = 170 mg/dL <=10 H 5643-2) TAMIKO (test code = TAMIKO) Larry Operator ID - CHARITO W Lab Interpretation (test Abnormal code = 26497-1) [facility] 04:33[facility]29 Test Item Value Reference Range Interpretation Comments ETHANOL (BEAKER) 170 mg/dL See_Comment H [Automated message] The (test code = 400) system [email or web address] generated this result tra nsmitted reference range : <=10. The reference r javier was not used to int erpret this result as normal/abnormal . Larry Operator ID - CHARITO WSARS-CoV2/RT-PCR (Asymptomatic ONLY)2021-07-16 01:11:14 Test Item Value Reference Interpretation Comments Range SARS-COV2/RT-PCR Negative Negative The SARS-Co V-2 (test code = target nucleic 12222-4) acids are not detected in thi s specimen. Negat evy results do not preclude SARS-C oV-2 infection and should not be u sed as the sole bas is for patient management decisions. Nega tive results must be combined with clinical observations, patient history , and epidemiolog ical information. A false negative result may occu r if a specimen is improperly collected, transported or handled. This S ARS CoV-2 test is a rapid, real-brooklyn e RT-PCR test intended for th e qualitative detection of nucleic acid fr om SARS-CoV-2 in a nasopharyngeal swab specimen colle luis from individual s suspected of COVID-19 by the ir healthcare provider. TAMIKO (test code = This test has been TAMIKO) authorized by FDA under an EUA for use by authorized laboratories. This test is only authorized for the duration of the declaration that circumstances exist justifying the authorization of emergency use of in vitro diagnostic tests for detection and/or diagnosis of COVID-19 under Section 564(b)(1) of the Federal Food, Drug and Cosmetic Act, 21 U.S.C. 360bbb-3(b)(1), unless the authorization is terminated or revoked sooner. Fact Sheet for Healthcare Providers: https://www.[employer]/Documents/Xp ert%20Xpress%20SAR S%20CoV-2/Fact%20S heets/302-3802%20S ARS-COV-2%20HEALTH CARE%20PROVIDERS%2 0FACT%20SHEET.pdf Fact Sheet for Healthcare Patients: https://www.[employer]/Documents/Xp ert%20Xpress%20SAR S%20CoV-2/Fact%20S heets/302-3801%20S ARS-COV-2%20PATIEN T%20FACT%20SHEET.p df Lab Interpretation Normal (test code = 70655-9) [facility]2021-07-16 01:11:14 Test Item Value Reference Range Interpretation Comments SARS-COV2/RT-PCR Negative Negative The SARS-Co V-2 target (test code = nucleic acids a re not 2769107) detected in thi s specimen. Negative result [...] This SARS CoV-2 test is a rapid, real-time RT-PC R test intended for th e qualitative detection [...] Food, Drug and Cosmetic Act, 21 U.S.C. 360bbb-3(b)(1), unless the authorization is terminated or revoked sooner. Fact Sheet for Healthcare Providers: https://www.[employer] m/Documents/Xpert%20Xpress%20SARS%20CoV-2/Fact%20Sheets/302-3802%34VGOL-PPD-3%20 HEALTHCARE%20PROVIDERS%20FACT%20SHEET.pdf Fact Sheet for Healthcare Patients: https://www.[employer]/Documents/Xpert%20Xp ress%20SARS%20CoV-2/Fact%20Sheets/302-3801%51BHTB-DCA-3%20PATIENT%20FACT%20SHEET .pdfCT, BRAIN, WITHOUT IV [id number] 01:07:00Unlisted Reason for Exam - Click Yes and Enter Reason Below->No [facility] : 1985 Sex: MFINAL REPORT EXAM/TECHNIQUE: Noncontrast CT of the head. Dose modulation, iterative reconstruction, and/or weight based adjustment of the mA/kV was utilized to reduce the radiation dose to as low as reasonably achievable. INDICATION: Trauma. COMPARISON: None. FINDINGS: Noble-white dif ferentiation is preserved. No acute intracranial hemorrhage. No [...] David Cobian MDReport Verified Date/Time: 07/16/2021 01:07:39 Rapid drug screen, [id number] 00:50:29 Test Item Value Reference Range Interpretation Comments Barbiturate Screen Negative Negative (test code = 22824-1) Benzodiazepine Screen Negative Negative (test code = 31132-2) Cocaine (Metab.) Screen Negative Negative (test code = 3397-7) Methadone Screen (test Negative Negative code = 02471-3) Opiate Screen (test Negative Negative code = 01781-6) Cannabinoid Screen Positive Negative A (test code = 20338-1) Amph/Methamph Screen Negative Negative (test code = 02199-6) Phencyclidine Screen Negative Negative (test code = 97700-3) Oxycodone Screen (test Negative Negative code = 05734-5) pH, UA (test code = 6.5 5.0-8.0 5803-2) TAMIKO (test code = TAMIKO) DRUG CUTOFF CONC.Methamphetamine 1000 ng/mLCocaine 300 ng/mLCannabinoid 50 ng/mLBenzodiazepine 300 ng/mLTricyclic 1000 ng/mLBarbiturate 300 ng/mLPhencyclidine 25 ng/mLAmphetamine 1000 ng/mLOpiate 300 ng/mLMethadone 300 ng/mL This assay provides an unconfirmed qualitative test result for the clinical management of patients in emergency situations. Chain of custody not maintained. Some bpci-zlv-bttdsod medications, as well as adulterants, may cause inaccurate results. Clinical correlation should be applied. A more comprehensive drug screen or confirmation of a detected drug may be performed upon request. Lab Interpretation Abnormal (test code = 87893-1) [facility], [id number] 00:50:29 Test Item Value Reference Range Interpretation [...] 300 ng/mLCannabinoid 50 ng/mLBenzodiazepine 300 ng/mLTricyclic 1000 ng/mLBarbiturate 300 ng/mLPhencyclidine 25 ng/mLAmphetamine 1000 ng/mLOpiate 300 ng/mLMethadone 300 ng/mLThis assay provides an unconfirmed qualitative test result for the clinical management of patients in emergency situations. Chain of custody not maintained. Some hgyx-fgf-mxpstmg medications, as well as adulterants, may cause inaccurate results. Clinical correlation should be applied. A more comprehensive drug screen or confirmation of a detected drug may be performed upon request.RAD, CHEST, 1 VIEW, NON [id number] 00:40:00Reason for exam:->SUICIDALShould this be performed at the bedside?->Yes [facility] BEN : 1985 Sex: MFINAL REPORT EXAM/TECHNIQUE: Single view frontal radiograph of the chest. INDICATION: Suicidal. COMPARISON: None. FINDINGS: Devices/Objects: None. Lungs: No focal consolidation. No pleural effusion. No pneumothorax. Heart/Mediastinum: No cardiomegaly. No interstitial thickening. Osseous: No acute osseous process. No suspicious osseous lesion. Upper abdomen: Unremarkable. Impression: No acute cardiopulmonary process. Signed: David Cobian MDReport Verified Date/Time: 07/16/2021 00:40:57 High Sensitivity Troponin I ([facility]/[place]ie Only)2021-07-16 00:39:15 Test Item Value Reference Range Interpretation Comments Troponin I HS (test <3 See_Comment [Automa luis code = 73993-8) message] The system which generated this result transmitted reference range : <=53 pg/ml. The reference range was not used to interpret this result as normal/abnormal . TAMIKO (test code = TAMIKO) The High-Sensitivity Troponin I assay is performed on Siemens Atellica IM Analyzer. Results of this assay should always be interpreted in conjunction with the patient's medical history, clinical presentation, and other findings. Lab Interpretation Normal (test code = 28888-8) [facility]OP[facility] [id number] 00:39:15 Test Item Value Reference Range Interpretation Comments HIGH SENSITIVITY < pg/ml See_Comment [Automated message] TROPONIN I (test code = The system which [id number]) generated this result transmitted ref erence range: <=53. Th e reference range was not used to interpr et this result as normal/abnormal . The High-Sensitivity Troponin I assay is performed on Siemens Atellica IM Analyzer. Results of this assay should always be interpreted in conjunction with the patient's medical history, clinical presentation, and other findings.B-type natriuretic [id number] 00:39:09 Test Item Value Reference Range Interpretation Comments BNP (test code = 85727-4) 15 pg/mL 0-100 Lab Interpretation (test code = Normal 86608-2) [facility] (BNP)2021-07-16 00:39:09 Test Item Value Reference Range Interpretation Comments B-TYPE NATRIURETIC PEPTIDE (BEAKER) 15 pg/mL 0-100 (test code = 700) Basic Metabolic [id number] 00:38:59 Test Item Value Reference Range Interpretation Comments Sodium (test code = 141 meq/L 267-941 9177-2) Potassium (test code 3.7 meq/L 3.5-5.1 Specime n slightly = 2823-3) hemolyzed Chloride (test code = 106 meq/L 98-107 5-0) CO2 (test code = 26 meq/L 22-29 8-9) BUN (test code = 8 mg/dL 7-21 3094-0) Creatinine (test code 0.80 mg/dL 0.57-1.25 Specim en slightly = 2160-0) hemolyzed Glucose (test code = 105 mg/dL 70-105 2345-7) Calcium (test code = 8.4 mg/dL 8.4-10.2 07159-9) EGFR (test code = INSUFFICIE NT CLINICAL 66290-0) DATA TO CALCULA TE ESTIMATED GFR. [facility]OL[facility] [id number] 00:38:59 Test Item Value Reference Range Interpretation [...] DATA TO CALCULA TE ESTIMATED GFR. CBC with platelet count + automated [id number] 00:19:15 Test Item Value Reference Range Interpretation Comments WBC (test code = 8.5 See_Comment [Automated message] 1190-2) The system [employer] generated this result transmitted ref erence range: 3.5 - 10 .5 K/L. The refe rence range was not u sed to interpret this result as normal/abnor mal. RBC (test code = 789-8) 4.78 See_Comment [Au tomated message] The system [employer] generated this result transmitted ref erence range: 4.63 - 6 .08 M/L. The refe rence range was not u sed to interpret this result as normal/abnor mal. MCHC (test code = 32.4 See_Comment [Automate d message] 786-4) The system [employer] generated this result transmitted ref erence range: 32.3 - 3 6.5 GM/DL. The refe rence range was not u sed to interpret this result as normal/abnor mal. Hematocrit (test code = 43.5 % 40.1-51.0 4544-3) MCV (test code = 787-2) 91.0 fL 79.0-92.2 MCH (test code = 785-6) 29.5 pg 25.7-32.2 RDW (test code = 788-0) 12.6 % 11.6-14.4 Platelets (test code = 332 See_Comment [Aut omated message] 777-3) The system [employer] generated this result transmitted ref erence range: 150 - 45 0 K/CU MM. The referen ce range was not used to interpret this result as normal/abnor mal. MPV (test code = 9.4 fL 9.4-12.4 40537-9) % Neutros (test code = 46 % 429) % Lymphs (test code = 39 % 430) % Monos (test code = 9 % 431) % Eos (test code = 432) 4 % % Baso (test code = 1 % 437) # Neutros (test code = 3.90 See_Comment [Aut omated message] 670) The system [employer] generated this result transmitted ref erence range: 1.78 - 5 .38 K/L. The refe rence range was not u sed to interpret this result as normal/abnor mal. # Lymphs (test code = 3.28 See_Comment [Auto mated message] 414) The system [employer] generated this result transmitted ref erence range: 1.32 - 3 .57 K/L. The refe rence range was not u sed to interpret this result as normal/abnor mal. # Monos (test code = 0.78 See_Comment [Autom ated message] 415) The system [employer] generated this result transmitted ref erence range: 0.30 - 0 .82 K/L. The refe rence range was not u sed to interpret this result as normal/abnor mal. # Eos (test code = 416) 0.37 See_Comment [Au tomated message] The system [employer] generated this result transmitted ref erence range: 0.04 - 0 .54 K/L. The refe rence range was not u sed to interpret this result as normal/abnor mal. # Baso (test code = 0.08 See_Comment [Automa luis message] 417) The system [employer] generated this result transmitted ref erence range: 0.01 - 0 .08 K/L. The refe rence range was not u sed to interpret this result as normal/abnor mal. Immature 1 % 0-1 Granulocytes-Relative (test code = 2801) [facility] W/PLT COUNT & AUTO [id number] 00:19:15 Test Item Value Reference Range Interpretation [...] PERCENT (BEAKER) (test code = 2801) TROPONIN [id number] 18:15:07 Test Item Value Reference Interpretation Comments Range TROPONIN I (test 0.007 ng/mL See_Comment [Automated code = 2595567268) message] The system which generated this result [...] biotin. Lab Interpretation Normal (test code = 27287-6) [facility]. METABOLIC PANEL (43914)2021-06-05 15:49:57 Test Item Value Reference Range Interpretation Comments NA (test code = 132 mmol/L 135-145 L 2833794782) K (test code = 4.3 mmol/L 3.5-5.0 4930006520) CL (test code = 95 mmol/L 98-108 L 5436693586) CO2 TOTAL (test code = 16 mmol/L 23-31 L 1389779224) AGAP (test code = 2-16 H 0277461446) BUN (test code = 34 mg/dL 7-23 H 2959208127) GLUCOSE (test code = 80 mg/dL 70-110 8906232681) CREATININE (test code = 1.66 mg/dL 0.60-1.25 H 9120127775) TOTAL BILI (test code = 1.1 mg/dL 0.1-1.9 8606266806) CALCIUM (test code = 9.0 mg/dL 8.6-10.6 7252175012) T PROTEIN (test code = 8.1 g/dL 6.3-8.2 6669760278) ALBUMIN (test code = 5.0 g/dL 3.5-5.0 6225322415) ALK PHOS (test code = 92 U/L 34-122 6808697434) ALTv (test code = 50 U/L 5-50 1742-6) AST(SGOT) (test code = 68 U/L 13-40 H 1008163404) eGFR (test code = mL/min/1.73m2 0579598496) TAMIKO (test code = TAMIKO) Association of [...] tests). Lab Interpretation Abnormal (test code = 49330-6) [facility] [id number] 15:49:11 Test Item Value Reference Interpretation Comments Range TROPONIN I (test 0.010 ng/mL See_Comment [Automated code = 1492168214) message] The system which generated this result [...] biotin. Lab Interpretation Normal (test code = 40526-5) [facility] CenterLIP[facility], [id number] 15:37:50 Test Item Value Reference Range Interpretation Comments LIPASE (test code = 2083060310) 233 U/L 0-220 H Lab Interpretation (test code = Abnormal 64778-0) [facility]eraPTT2022-01-26 15:31:46 Test Item Value Reference Range Interpretation Comments APTT Patient (test See_Comment [Automat ed code = 3173-2) message] The system which generated this result transmitted reference range : 23 - 38 Seconds . The reference range was not used to interpr et this result as normal/abnormal . TAMIKO (test code = TAMIKO) The [facility] patient population mean normal value for aPTT is 30 seconds. Lab Interpretation Normal (test code = 61078-1) [facility] CenterPROTHROMBIN TIME / [id number] 15:29:45 Test Item Value Reference Range Interpretation [...] tions. Lab Interpretation (test Normal code = 43325-5) [facility] CenterCB WITH [id number] 15:28:44 Test Item Value Reference Range Interpretation Comments WBC (test code = See_Comment H [Automated 7190-2) message] The sy stem which generated this result transmitted reference range : 4.20 - 10.70 10*3/?L. The reference range was not used to interpret this result as normal/abnormal . RBC (test code = See_Comment [Automated 149-8) message] The sy stem which generated this [...] RDW-SD (test code = 42.5 fL 38.5-51.6 81215-2) RDW-CV (test code = 13.0 % 12.1-15.4 788-0) PLT (test code = See_Comment [Automated 777-3) message] The sy stem which generated this result transmitted reference range : 150 - 328 10*3/ ?L. The reference r javier was not used to interpret this result as normal/abnormal . MPV (test code = 10.2 fL 9.8-13.0 30332-7) NRBC/100 WBC (test See_Comment [Automat ed code = 6303904438) message] The system which generated this result transmitted reference range : 0.0 - 10.0 /100 WBCs. The refer ence range was not u sed to interpret th is result as normal/abnormal . NRBC x10^3 (test code <0.01 See_Comment [Auto mated = 4596463271) message] The s ystem which generated this result transmitted reference range : 10*3/?L. The reference range was not used to interpret this result as normal/abnormal . GRAN MAT (NEUT) % 77.1 % (test code = 770-8) IMM GRAN % (test code 0.90 % = 5759114958) LYMPH % (test code = 10.4 % 736-9) MONO % (test code = 10.5 % 5905-5) EOS % (test code = 0.6 % 713-8) BASO % (test code = 0.5 % 706-2) GRAN MAT x10^3(ANC) 9.01 10*3/uL 1.99-6.95 H (test code = 9278556229) IMM GRAN x10^3 (test 0.10 10*3/uL 0.00-0.06 H code = 1533896958) LYMPH x10^3 (test code 1.22 10*3/uL 1.09-3.23 = 731-0) MONO x10^3 (test code 1.23 10*3/uL 0.36-1.02 H = 742-7) EOS x10^3 (test code = 0.07 10*3/uL 0.06-0.53 711-2) BASO x10^3 (test code 0.06 10*3/uL 0.01-0.09 = 704-7) Lab Interpretation Abnormal (test code = 74380-3) [facility] CenterLOGAN [id number] 16:51:13 Test Item Value Reference Interpretation Comments Range TROPONIN I (test 0.005 ng/mL See_Comment [Automated code = 0428791335) message] The system which generated this result [...] biotin. Lab Interpretation Normal (test code = 18589-0) [facility]. METABOLIC PANEL (27662)2021-05-27 16:39:35 Test Item Value Reference Range Interpretation Comments NA (test code = 137 mmol/L 135-145 9726381546) K (test code = 3.7 mmol/L 3.5-5.0 0737397109) CL (test code = 101 mmol/L 98-108 8028310545) CO2 TOTAL (test code = 27 mmol/L 23-31 3439764193) AGAP (test code = 2-16 2409341540) BUN (test code = 9 mg/dL 7-23 0170840042) GLUCOSE (test code = 108 mg/dL 70-110 8134585393) CREATININE (test code = 0.75 mg/dL 0.60-1.25 5650298662) TOTAL BILI (test code = 0.3 mg/dL 0.1-1.8 0734426359) CALCIUM (test code = 8.2 mg/dL 8.6-10.6 L 4063992314) T PROTEIN (test code = 7.0 g/dL 6.3-8.2 2454242357) ALBUMIN (test code = 4.1 g/dL 3.5-5.0 6307624483) ALK PHOS (test code = 74 U/L 34-122 3530590510) ALTv (test code = 27 U/L 5-50 1742-6) AST(SGOT) (test code = 34 U/L 13-40 1498542071) eGFR (test code = mL/min/1.73m2 3084557632) TAMIKO (test code = TAMIKO) Association of [...] tests). Lab Interpretation Abnormal (test code = 98755-3) [facility] CenterLIPASE, [id number] 16:39:14 Test Item Value Reference Range Interpretation Comments LIPASE (test code = 5542205594) 72 U/L 0-220 Lab Interpretation (test code = Normal 36021-7) [facility]eraPTT2022-01-17 16:34:13 Test Item Value Reference Range Interpretation Comments APTT Patient (test See_Comment [Automat ed code = 3173-2) message] The system which generated this result transmitted reference range : 23 - 38 Seconds . The reference range was not used to interpr et this result as normal/abnormal . TAMIKO (test code = TAMIKO) The [facility] patient population mean normal value for aPTT is 30 seconds. Lab Interpretation Normal (test code = 70736-7) [facility] CenterPROTHROMBIN TIME / [id number] 16:32:13 Test Item Value Reference Range Interpretation Comments PROTIME PATIENT (test See_Comment [Auto mated message] code = 5964-2) The system [facility] generated this result transmitted ref erence range: 12.0 - 1 4.7 Seconds. The re ference range was not u sed to interpret this result as normal/abnor mal. INR (test code = 6301-6) Nor mal INR <1.1; Warfarin Therap eutic range 2.0 to 3. 0 or 2.5 to 3.5, dep ending upon the indica tions. Lab Interpretation (test Normal code = 75601-3) [facility] CenterCBC WITH [id number] 16:21:51 Test Item Value Reference Range Interpretation Comments WBC (test code = See_Comment [Automated message] 6690-2) The system [employer] generated this result transmitted ref erence range: 4.20 - 1 0.70 10*3/?L. The re ference range was not u sed to interpret this result as normal/abnor mal. RBC (test code = See_Comment [Automated message] 789-8) The system [employer] generated this result transmitted ref erence range: [...] RDW-SD (test code 42.2 fL 38.5-51.6 = 94985-7) RDW-CV (test code 12.7 % 12.1-15.4 = 788-0) PLT (test code = See_Comment [Automated message] 777-3) The system whic h generated this result transmitted ref erence range: 150 - 32 8 10*3/?L. The re ference range was not u sed to interpret this result as normal/abnor mal. MPV (test code = 9.9 fL 9.8-13.0 08711-6) NRBC/100 WBC (test See_Comment [Automat ed message] code = 6859808854) The syste m which generated this result transmitted ref erence range: 0.0 - 10 .0 /100 WBCs. The refer ence range was not u sed to interpret this result as normal/abnor mal. NRBC x10^3 (test <0.01 See_Comment [Automated message] code = 2610515401) The syste m which generated this result transmitted ref erence range: 10*3/?L. The reference range was not used to interpr et this result as normal/abnormal . GRAN MAT (NEUT) % 53.0 % (test code = 770-8) IMM GRAN % (test 0.30 % code = 6052945762) LYMPH % (test code 29.5 % = 736-9) MONO % (test code 12.3 % = 5905-5) EOS % (test code = 4.1 % 713-8) BASO % (test code 0.8 % = 706-2) GRAN MAT 3.23 10*3/uL 1.99-6.95 x10^3(ANC) (test code = 4482267153) IMM GRAN x10^3 <0.03 0.00-0.06 (test code = 9312761585) LYMPH x10^3 (test 1.80 10*3/uL 1.09-3.23 code = 731-0) MONO x10^3 (test 0.75 10*3/uL 0.36-1.02 code = 742-7) EOS x10^3 (test 0.25 10*3/uL 0.06-0.53 code = 711-2) BASO x10^3 (test 0.05 10*3/uL 0.01-0.09 code = 704-7) [facility] CenterPROCALCITONIN2021-12-26 18:33:47 Test Item Value Reference Range Interpretation Comments Procalcitonin (test 0.02 ng/mL <0.07 code = 2513790605) TAMIKO (test code = TAMIKO) INTERPRETATION OF [...] lung abscess/empyema. For further information please refer to:[email or web address] Lab Interpretation Normal (test code = 19722-8) [facility] [id number] 13:20:01 Test Item Value Reference Interpretation Comments Range TROPONIN I (test 0.008 ng/mL See_Comment [Automated code = 0413458797) message] The system which generated this result [...] biotin. Lab Interpretation Normal (test code = 65605-5) [facility] [id number] 11:41:12 Test Item Value Reference Interpretation Comments Range TROPONIN I (test 0.007 ng/mL See_Comment [Automated code = 4924222042) message] The system which generated this result [...] biotin. Lab Interpretation Normal (test code = 46831-6) [facility] CenterCREATINE [id number] 11:31:13 Test Item Value Reference Range Interpretation Comments CK (test code = 1826220913) 93 U/L 33-194 Lab Interpretation (test code = Normal 41450-8) [facility] CenterTHYROID STIMULATING [id number] 10:15:06 Test Item Value Reference Range Interpretation Comments TSH (test code = See_Comment [Automated message] 5405938253) The system [employer] generated this result transmitted ref erence range: 0.45 - 4 .70 mIU/L. The refe rence range was not u sed to interpret this result as normal/abnor mal. Lab Interpretation (test Normal code = 27662-7) [facility] CenterN-TERMINAL [id number] 09:53:45 Test Item Value Reference Range Interpretation Comments NT-proBNP (test code 175 pg/mL See_Comment H [Autom ated = 4198255673) message] The system which generated this result transmitted reference range : <=125. The reference range was not used to interpret this result as normal/abnormal . TAMIKO (test code = TAMIKO) Biotin has been reported to cause a negative bias, interpret results relative to patient's use of biotin. Lab Interpretation Abnormal (test code = 92102-2) [facility] CenterETHANOL2021-12-26 09:52:20 Test Item Value Reference Range Interpretation Comments ALCOHOL (test code = <10 mg/dL 4295724269) TAMIKO (test code = TAMIKO) <10 Avudpere94-933 Toxic>100 Depression of WATCH CRYSTAL MOLDER>400 Fatalities Reported [facility] CenterMAGNESIUM2021-12-26 09:45:24 Test Item Value Reference Range Interpretation Comments MAGNESIUM (test code = 3921226402) 1.3 mg/dL 1.7-2.4 L Lab Interpretation (test code = Abnormal 64427-1) [facility] CenterLIPID PANEL (89270)(TOTAL CHOLESTEROL, TRIGLYCERIDES, HDL)2021-05-05 09:45:24 Test Item Value Reference Range Interpretation Comments CHOL (test code = 206 mg/dL 120-200 H 2752758897) HDL (test code = 29 mg/dL >40 L 8317465138) HDLC RATIO (test code = See_Comment H [Au tomated message] 6569348410) The system [employer] generated this result transmit luis reference range : <=5.0. The refe rence range was not u sed to interpret th is result as normal/abnormal . TRIG (test code = 255 mg/dL 30-170 H 5756123778) LDL CHOL (test code = 126 mg/dL See_Comment [Auto mated message] 44456-2) The system [employer] generated this result transmit luis reference range : <=160. The refe rence range was not u sed to interpret th is result as normal/abnormal . VLDL (test code = 51 mg/dL 5-60 8587373334) Lab Interpretation (test Abnormal code = 16861-7) [facility] CenterPHOSPHORUS2021-12-26 09:45:04 Test Item Value Reference Range Interpretation Comments PHOSPHORUS (test code = 7813739286) 3.6 mg/dL 2.5-5.0 Lab Interpretation (test code = Normal 79919-0) [facility] CenterURIC [id number] 09:44:43 Test Item Value Reference Range Interpretation Comments URIC ACID (test code = 9115132597) 7.8 mg/dL 3.6-8.0 Lab Interpretation (test code = Normal 72996-3) [facility] CenterGLYCOSYLATED HEMOGLOBIN (A1C)2021-05-05 09:09:32 Test Item Value Reference Range Interpretation Comments HGB A1C (test code = 5.7 % 4.0-5.7 4548-4) TAMIKO (test code = TAMIKO) Reference RangesNormal: <5.7%Prediabetes: 5.7 - 6.4%Diabetes: > 6.5% Lab Interpretation (test Normal code = 36647-6) [facility] CenterD-[id number] 04:48:27 Test Item Value Reference Interpretation Comments Range D-DIMER (test code = <0.27 See_Comment [Autom ated 3035574536) message] The system which generated this result [...] diagnosis. Lab Interpretation Normal (test code = 37169-1) [facility] CenterTROPONIN [id number] 03:29:25 Test Item Value Reference Interpretation Comments Range TROPONIN I (test 0.018 ng/mL See_Comment [Automated code = 8156195554) message] The system which generated this result [...] biotin. Lab Interpretation Normal (test code = 27548-6) [facility] CenterTROPONIN [id number] 01:09:37 Test Item Value Reference Interpretation Comments Range TROPONIN I (test 0.005 ng/mL See_Comment [Automated code = 8609914322) message] The system which generated this result [...] biotin. Lab Interpretation Normal (test code = 74474-3) [facility] CenterCOMP. METABOLIC PANEL (84592)2021-05-05 00:57:59 Test Item Value Reference Range Interpretation Comments NA (test code = 135 mmol/L 135-145 5927244290) K (test code = 3.8 mmol/L 3.5-5.0 4123152478) CL (test code = 102 mmol/L 98-108 1691651697) CO2 TOTAL (test code 23 mmol/L 23-31 = 5016916308) AGAP (test code = 2-16 5411580704) BUN (test code = 12 mg/dL 7-23 0147028022) GLUCOSE (test code = 92 mg/dL 70-110 3920696503) CREATININE (test code 0.71 mg/dL 0.60-1.25 = 2619349066) TOTAL BILI (test code 0.5 mg/dL 0.1-1.1 = 4692436383) CALCIUM (test code = 9.0 mg/dL 8.6-10.6 2013414481) T PROTEIN (test code 7.4 g/dL 6.3-8.2 = 1898956374) ALBUMIN (test code = 4.4 g/dL 3.5-5.0 8096001355) ALK PHOS (test code = 67 U/L 34-122 9647457044) ALTv (test code = 28 U/L 5-50 2-6) AST(SGOT) (test code 32 U/L 13-40 = 1147430202) eGFR (test code = mL/min/1.73m2 3216536741) TAMIKO (test code = TAMIKO) Association of [...] urine or abnormalities in imaging tests). [facility] CenterLIPASE, [id number] 00:57:39 Test Item Value Reference Range Interpretation Comments LIPASE (test code = 9861009889) 65 U/L 0-220 Lab Interpretation (test code = Normal 13259-6) [facility] CenteraPTT2021-12-26 00:54:59 Test Item Value Reference Range Interpretation Comments APTT Patient (test See_Comment [Automat ed code = 3173-2) message] The system which generated this result transmitted reference range : 23 - 38 Seconds . The reference range was not used to interpr et this result as normal/abnormal . TAMIKO (test code = TAMIKO) The [facility] patient population mean normal value for aPTT is 30 seconds. Lab Interpretation Normal (test code = 26197-3) [facility] CenterPROTHROMBIN TIME / [id number] 00:52:58 Test Item Value Reference Range Interpretation [...] tions. Lab Interpretation (test Normal code = 23745-4) [facility] CenterCBC WITH [id number] 00:46:38 Test Item Value Reference Range Interpretation Comments WBC (test code = See_Comment [Automated 6890-2) message] The sy stem which generated this result transmitted reference range : 4.20 - 10.70 10*3/?L. The reference range was not used to interpret this result as normal/abnormal . RBC (test code = See_Comment [Automated 893-8) message] The sy stem which generated this [...] RDW-SD (test code = 41.9 fL 38.5-51.6 38340-0) RDW-CV (test code = 12.7 % 12.1-15.4 788-0) PLT (test code = See_Comment H [Automated 777-3) message] The sy stem which generated this result transmitted reference range : 150 - 328 10*3/ ?L. The reference r javier was not used to interpret this result as normal/abnormal . MPV (test code = 9.9 fL 9.8-13.0 10286-9) NRBC/100 WBC (test See_Comment [Automat ed code = 3891594553) message] The system which generated this result transmitted reference range : 0.0 - 10.0 /100 WBCs. The refer ence range was not u sed to interpret th is result as normal/abnormal . NRBC x10^3 (test code <0.01 See_Comment [Auto mated = 4444915024) message] The s ystem which generated this result transmitted reference range : 10*3/?L. The reference range was not used to interpret this result as normal/abnormal . GRAN MAT (NEUT) % 62.3 % (test code = 770-8) IMM GRAN % (test code 0.30 % = 2978631584) LYMPH % (test code = 24.9 % 736-9) MONO % (test code = 9.9 % 5905-5) EOS % (test code = 1.6 % 713-8) BASO % (test code = 1.0 % 706-2) GRAN MAT x10^3(ANC) 5.68 10*3/uL 1.99-6.95 (test code = 4014275585) IMM GRAN x10^3 (test 0.03 10*3/uL 0.00-0.06 code = 9046577901) LYMPH x10^3 (test code 2.27 10*3/uL 1.09-3.23 = 731-0) MONO x10^3 (test code 0.90 10*3/uL 0.36-1.02 = 742-7) EOS x10^3 (test code = 0.15 10*3/uL 0.06-0.53 711-2) BASO x10^3 (test code 0.09 10*3/uL 0.01-0.09 = 704-7) Lab Interpretation Abnormal (test code = 31368-0) [facility] CenterTROPONIN [id number] 14:27:27 Test Item Value Reference Interpretation Comments Range TROPONIN I (test 0.002 ng/mL See_Comment [Automated code = 0336096984) message] The system which generated this result [...] biotin. Lab Interpretation Normal (test code = 45894-3) [facility] CenterD-[id number] 14:25:35 Test Item Value Reference Interpretation Comments Range D-DIMER (test code = See_Comment [Autom ated 3251816634) message] The system which generated this result [...] diagnosis. Lab Interpretation Normal (test code = 16691-8) [id number] 14:22:27 Test Item Value Reference Range Interpretation Comments NT-proBNP (test code 29 pg/mL See_Comment [Autom ated = 9081072794) message] The system which generated this result transmitted reference range : <=125. The reference range was not used to interpret this result as normal/abnormal . TAMIKO (test code = TAMIKO) Biotin has been reported to cause a negative bias, interpret results relative to patient's use of biotin. Lab Interpretation Normal (test code = 44738-4) [facility] CenterLIP[facility] (59399)(TOTAL CHOLESTEROL, TRIGLYCERIDES, HDL)2021-02-18 14:14:32 Test Item Value Reference Range Interpretation Comments CHOL (test code = 209 mg/dL 120-200 H 5064992618) HDL (test code = 30 mg/dL >40 L 5219730539) HDLC RATIO (test code = See_Comment H [Au tomated message] 4834057258) The system [employer] generated this result transmit luis reference range : <=5.0. The refe rence range was not u sed to interpret th is result as normal/abnormal . TRIG (test code = 143 mg/dL 30-170 2160922101) LDL CHOL (test code = 150 mg/dL See_Comment [Auto mated message] 13225-4) The system [employer] generated this result transmit luis reference range : <=160. The refe rence range was not u sed to interpret th is result as normal/abnormal . VLDL (test code = 29 mg/dL 5-60 2264694490) Lab Interpretation (test Abnormal code = 25730-7) [facility] MET[facility]OLIC PANEL (73032)2021-02-18 14:14:11 Test Item Value Reference Range Interpretation Comments NA (test code = 139 mmol/L 135-145 7976652207) K (test code = 4.7 mmol/L 3.5-5.0 7442498951) CL (test code = 104 mmol/L 98-108 5248328099) CO2 TOTAL (test code 30 mmol/L 23-31 = 3412912412) AGAP (test code = 2-16 4170839716) BUN (test code = 12 mg/dL 7-23 4335483018) GLUCOSE (test code = 102 mg/dL 70-110 8392725392) CREATININE (test code 0.78 mg/dL 0.60-1.25 = 5514111167) TOTAL BILI (test code 0.3 mg/dL 0.1-1.1 = 8740030636) CALCIUM (test code = 9.5 mg/dL 8.6-10.6 8000256391) T PROTEIN (test code 7.4 g/dL 6.3-8.2 = 4443908818) ALBUMIN (test code = 4.3 g/dL 3.5-5.0 7212831159) ALK PHOS (test code = 61 U/L 34-122 0653090501) ALTv (test code = 27 U/L 5-50 2-6) AST(SGOT) (test code 26 U/L 13-40 = 1958624083) eGFR (test code = mL/min/1.73m2 6643321515) TAMIKO (test code = TAMIKO) Association of [...] urine or abnormalities in imaging tests). [facility]20[facility] 14:14:11 Test Item Value Reference Range Interpretation Comments MAGNESIUM (test code = 9684623799) 1.8 mg/dL 1.7-2.4 Lab Interpretation (test code = Normal 88690-7) [facility] WITH [id number] 13:51:29 Test Item Value Reference Range Interpretation Comments WBC (test code = See_Comment [Automated message] 6690-2) The system [employer] generated this result transmitted ref erence range: 4.20 - 1 0.70 10*3/?L. The re ference range was not u sed to interpret this result as normal/abnor mal. RBC (test code = See_Comment [Automated message] 789-8) The system [employer] generated this result transmitted ref erence range: [...] RDW-SD (test code 43.3 fL 38.5-51.6 = 12530-5) RDW-CV (test code 13.0 % 12.1-15.4 = 788-0) PLT (test code = See_Comment [Automated message] 777-3) The system [employer] generated this result transmitted ref erence range: 150 - 32 8 10*3/?L. The re ference range was not u sed to interpret this result as normal/abnor mal. MPV (test code = 10.2 fL 9.8-13.0 54329-8) NRBC/100 WBC (test See_Comment [Automat ed message] code = 5526475178) The syste m which generated this result transmitted ref erence range: 0.0 - 10 .0 /100 WBCs. The refer ence range was not u sed to interpret this result as normal/abnor mal. NRBC x10^3 (test <0.01 See_Comment [Automated message] code = 8110013400) The syste m which generated this result transmitted ref erence range: 10*3/?L. The reference range was not used to interpr et this result as normal/abnormal . GRAN MAT (NEUT) % 50.8 % (test code = 770-8) IMM GRAN % (test 0.70 % code = 3971441947) LYMPH % (test code 29.1 % = 736-9) MONO % (test code 12.4 % = 5905-5) EOS % (test code = 6.2 % 713-8) BASO % (test code 0.8 % = 706-2) GRAN MAT 3.71 10*3/uL 1.99-6.95 x10^3(ANC) (test code = 4516200858) IMM GRAN x10^3 0.05 10*3/uL 0.00-0.06 (test code = 1531216383) LYMPH x10^3 (test 2.13 10*3/uL 1.09-3.23 code = 731-0) MONO x10^3 (test 0.91 10*3/uL 0.36-1.02 code = 742-7) EOS x10^3 (test 0.45 10*3/uL 0.06-0.53 code = 711-2) BASO x10^3 (test 0.06 10*3/uL 0.01-0.09 code = 704-7) [facility]OL[facility] (22720)2021-01-24 14:53:54 Test Item Value Reference Range Interpretation Comments NA (test code = 137 mmol/L 135-145 8022770513) K (test code = 4.5 mmol/L 3.5-5.0 3786637161) CL (test code = 100 mmol/L 98-108 3753494308) CO2 TOTAL (test code 29 mmol/L 23-31 = 2812169034) AGAP (test code = 2-16 5387380214) BUN (test code = 16 mg/dL 7-23 8617414113) GLUCOSE (test code = 94 mg/dL 70-110 6862442995) CREATININE (test code 0.86 mg/dL 0.60-1.25 = 2724608452) TOTAL BILI (test code 0.5 mg/dL 0.1-1.1 = 4093364149) CALCIUM (test code = 9.7 mg/dL 8.6-10.6 2643915079) T PROTEIN (test code 8.0 g/dL 6.3-8.2 = 5954147977) ALBUMIN (test code = 4.5 g/dL 3.5-5.0 4965371353) ALK PHOS (test code = 64 U/L 34-122 3907888622) ALTv (test code = 21 U/L 5-50 2-6) AST(SGOT) (test code 37 U/L 13-40 = 6820244099) eGFR (test code = mL/min/1.73m2 3617002845) TAMIKO (test code = TAMIKO) Association of [...] or urine or abnormalities in imaging tests). [facility]. METABOLIC PANEL (86514)2021-01-24 14:53:54 Test Item Value Reference Range Interpretation Comments NA (test code = 137 mmol/L 135-145 6834959141) K (test code = 4.5 mmol/L 3.5-5.0 5898927513) CL (test code = 100 mmol/L 98-108 8564778609) CO2 TOTAL (test code 29 mmol/L 23-31 = 3484104221) AGAP (test code = 2-16 3267845696) BUN (test code = 16 mg/dL 7-23 5904260225) GLUCOSE (test code = 94 mg/dL 70-110 9184200310) CREATININE (test code 0.86 mg/dL 0.60-1.25 = 6614895323) TOTAL BILI (test code 0.5 mg/dL 0.1-1.1 = 6951006326) CALCIUM (test code = 9.7 mg/dL 8.6-10.6 0861909179) T PROTEIN (test code 8.0 g/dL 6.3-8.2 = 0563888749) ALBUMIN (test code = 4.5 g/dL 3.5-5.0 4562196545) ALK PHOS (test code = 64 U/L 34-122 8897124731) ALTv (test code = 21 U/L 5-50 2-6) AST(SGOT) (test code 37 U/L 13-40 = 8927743374) eGFR (test code = mL/min/1.73m2 7977644262) TAMIKO (test code = TAMIKO) Association of [...] urine or abnormalities in imaging tests). [facility] WITH [id number] 14:39:54 Test Item Value Reference Range Interpretation Comments WBC (test code = See_Comment [Automated 8890-2) message] The sy stem which generated this result transmitted reference range : 4.20 - 10.70 10*3/?L. The reference range was not used to interpret this result as normal/abnormal . RBC (test code = See_Comment [Automated 470-8) message] The sy stem which generated this [...] RDW-SD (test code = 44.4 fL 38.5-51.6 28704-4) RDW-CV (test code = 13.2 % 12.1-15.4 788-0) PLT (test code = See_Comment [Automated 777-3) message] The sy stem which generated this result transmitted reference range : 150 - 328 10*3/ ?L. The reference r javier was not used to interpret this result as normal/abnormal . MPV (test code = 10.7 fL 9.8-13.0 09769-0) NRBC/100 WBC (test See_Comment [Automat ed code = 7902849428) message] The system which generated this result transmitted reference range : 0.0 - 10.0 /100 WBCs. The refer ence range was not u sed to interpret th is result as normal/abnormal . NRBC x10^3 (test code <0.01 See_Comment [Auto mated = 0200848462) message] The s ystem which generated this result transmitted reference range : 10*3/?L. The reference range was not used to interpret this result as normal/abnormal . GRAN MAT (NEUT) % 54.9 % (test code = 770-8) IMM GRAN % (test code 0.50 % = 3200079580) LYMPH % (test code = 24.0 % 736-9) MONO % (test code = 16.5 % 5905-5) EOS % (test code = 3.5 % 713-8) BASO % (test code = 0.6 % 706-2) GRAN MAT x10^3(ANC) 3.58 10*3/uL 1.99-6.95 (test code = 0803750930) IMM GRAN x10^3 (test 0.03 10*3/uL 0.00-0.06 code = 3105804834) LYMPH x10^3 (test code 1.57 10*3/uL 1.09-3.23 = 731-0) MONO x10^3 (test code 1.08 10*3/uL 0.36-1.02 H = 742-7) EOS x10^3 (test code = 0.23 10*3/uL 0.06-0.53 711-2) BASO x10^3 (test code 0.04 10*3/uL 0.01-0.09 = 704-7) Lab Interpretation Abnormal (test code = 62347-8) [facility] WITH [id number] 14:39:54 Test Item Value Reference Range Interpretation [...] RDW-SD (test code = 44.4 fL 38.5-51.6 58076-7) RDW-CV (test code = 13.2 % 12.1-15.4 788-0) PLT (test code = See_Comment [Automated 777-3) message] The sy stem which generated this result transmitted reference range : 150 - 328 10*3/ ?L. The reference r javier was not used to interpret this result as normal/abnormal . MPV (test code = 10.7 fL 9.8-13.0 95068-0) NRBC/100 WBC (test See_Comment [Automat ed code = 7149376581) message] The system which generated this result transmitted reference range : 0.0 - 10.0 /100 WBCs. The refer ence range was not u sed to interpret th is result as normal/abnormal . NRBC x10^3 (test code <0.01 See_Comment [Auto mated = 7724090212) message] The s ystem which generated this result transmitted reference range : 10*3/?L. The reference range was not used to interpret this result as normal/abnormal . GRAN MAT (NEUT) % 54.9 % (test code = 770-8) IMM GRAN % (test code 0.50 % = 9742508258) LYMPH % (test code = 24.0 % 736-9) MONO % (test code = 16.5 % 5905-5) EOS % (test code = 3.5 % 713-8) BASO % (test code = 0.6 % 706-2) GRAN MAT x10^3(ANC) 3.58 10*3/uL 1.99-6.95 (test code = 3281271548) IMM GRAN x10^3 (test 0.03 10*3/uL 0.00-0.06 code = 7686181809) LYMPH x10^3 (test code 1.57 10*3/uL 1.09-3.23 = 731-0) MONO x10^3 (test code 1.08 10*3/uL 0.36-1.02 H = 742-7) EOS x10^3 (test code = 0.23 10*3/uL 0.06-0.53 711-2) BASO x10^3 (test code 0.04 10*3/uL 0.01-0.09 = 704-7) Lab Interpretation Abnormal (test code = 56590-7) [facility] (IMMUNOASSAY) - COMPREHENSIVE DRUG SCREEN W/O [id number] 14:38:57 Test Item Value Reference Range Interpretation Comments AMPHET (test code = Negative Negative 8855579638) CLAUDIA U (test code = Negative Negative 4019640409) BENZO U (test code = Negative Negative 2192216579) Cocaine Metabolite (test Negative Negative code = 5482186796) METHADONE (test code = Negative Negative 1691835621) OPIATES (test code = Negative Negative 3266192236) PCP (test code = Negative Negative 3701266458) THC (test code = Negative Negative 6163841800) TAMIKO (test code = TAMIKO) Urine Drug [...] testing). Lab Interpretation (test Normal code = 91181-3) [facility]COVID[facility] (ID NOW RAPID TESTING)2020-12-07 14:31:11 Test Item Value Reference Range Interpretation Comments SARS-CoV-2 Rapid ID NOW Not Detected Not Detected (test code = 77088-6) TAMIKO (test code = TAMIKO) ID NOW COVID-19 Assay is an isothermal nucleic acid amplification test intended for the qualitative detection of nucleic acid from SARS-CoV-2 viral RNA in nasopharyngeal (COCOA ROOM OPERATOR) specimens. It is used under Emergency Use [...] indicated. Lab Interpretation Normal (test code = 33552-7) [facility] CenterAD [facility] [id number] 14:23:50 Test Item Value Reference Range Interpretation Comments RSV Antigen (test code = 9099403822) Negative Negative Lab Interpretation (test code = Normal 45641-9) [facility] CenterURINALYSIS2021-07-30 14:10:55 Test Item Value Reference Range Interpretation Comments APPEARANCE (test code = Clear Clear 5960029552) COLOR (test code = Yellow Yellow 2580815433) PH (test code = 4.8-8.0 4402236689) SP GRAVITY (test code = 1.003-1.030 3077878157) GLU U QUAL (test code = Normal Normal 0937261438) BLOOD (test code = Negative Negative 6023737372) KETONES (test code = Negative Negative 0745779753) PROTEIN (test code = Negative Negative 2887-8) UROBILIN (test code = Normal Normal 5289787429) BILIRUBIN (test code = Negative Negative 7428400545) NITRITE (test code = Negative Negative 6985518124) LEUK GINO (test code = Negative Negative 7123160432) RBC/HPF (test code = See_Comment [Autom ated message] 1849498776) The system [employer] generated this result transmitted ref erence range: 0 - 3 HP F. The reference range was not used to int erpret this result as normal/abnormal . WBC/HPF (test code = See_Comment [Autom ated message] 4060179487) The system [employer] generated this result transmitted ref erence range: 0 - 5 HP F. The reference range was not used to int erpret this result as normal/abnormal . BACTERIA (test code = Negative Negative 4684205277) Lab Interpretation (test Normal code = 81698-8) [facility]. METABOLIC PANEL (82681)2020-12-07 14:10:04 Test Item Value Reference Range Interpretation Comments NA (test code = 142 mmol/L 135-145 5858684028) K (test code = 4.3 mmol/L 3.5-5.0 3169386592) CL (test code = 106 mmol/L 98-108 0755690616) CO2 TOTAL (test code = 23 mmol/L 23-31 5525955689) AGAP (test code = 2-16 3801155148) BUN (test code = 15 mg/dL 7-23 3644274132) GLUCOSE (test code = 94 mg/dL 70-110 8387406700) CREATININE (test code = 0.70 mg/dL 0.60-1.25 9122465285) TOTAL BILI (test code = 0.5 mg/dL 0.1-1.5 9839576329) CALCIUM (test code = 9.7 mg/dL 8.6-10.6 5739856648) T PROTEIN (test code = 8.3 g/dL 6.3-8.2 H 1512208021) ALBUMIN (test code = 4.8 g/dL 3.5-5.0 9046350835) ALK PHOS (test code = 62 U/L 34-122 5001449330) ALTv (test code = 31 U/L 5-50 1742-6) AST(SGOT) (test code = 84 U/L 13-40 H 8627335150) eGFR (test code = mL/min/1.73m2 2219217121) TAMIKO (test code = TAMIKO) Association of [...] tests). Lab Interpretation Abnormal (test code = 97282-8) [facility] CenterL[facility]2021-[facility] 14:09:48 Test Item Value Reference Range Interpretation Comments LIPASE (test code = 5080865806) 171 U/L 0-220 Lab Interpretation (test code = Normal 32553-7) [facility] CenterCB WITH [id number] 13:59:24 Test Item Value Reference Range Interpretation Comments WBC (test code = See_Comment [Automated message] 6690-2) The system [employer] generated this result transmitted ref erence range: 4.20 - 1 0.70 10*3/?L. The re ference range was not u sed to interpret this result as normal/abnor mal. RBC (test code = See_Comment [Automated message] 789-8) The system [employer] generated this result transmitted ref erence range: [...] RDW-SD (test code 45.8 fL 38.5-51.6 = 62642-0) RDW-CV (test code 13.5 % 12.1-15.4 = 788-0) PLT (test code = See_Comment [Automated message] 777-3) The system [employer] generated this result transmitted ref erence range: 150 - 32 8 10*3/?L. The re ference range was not u sed to interpret this result as normal/abnor mal. MPV (test code = 11.0 fL 9.8-13.0 93891-4) NRBC/100 WBC (test See_Comment [Automat ed message] code = 9622349375) The syste [employer] which generated this result transmitted ref erence range: 0.0 - 10 .0 /100 WBCs. The refer ence range was not u sed to interpret this result as normal/abnor mal. NRBC x10^3 (test <0.01 See_Comment [Automated message] code = 1042394128) The syste m which generated this result transmitted ref erence range: 10*3/?L. The reference range was not used to interpr et this result as normal/abnormal . GRAN MAT (NEUT) % 47.3 % (test code = 770-8) IMM GRAN % (test 0.20 % code = 9384961435) LYMPH % (test code 33.4 % = 736-9) MONO % (test code 13.0 % = 5905-5) EOS % (test code = 5.2 % 713-8) BASO % (test code 0.9 % = 706-2) GRAN MAT 3.08 10*3/uL 1.99-6.95 x10^3(ANC) (test code = 8049292116) IMM GRAN x10^3 <0.03 0.00-0.06 (test code = 9593627064) LYMPH x10^3 (test 2.18 10*3/uL 1.09-3.23 code = 731-0) MONO x10^3 (test 0.85 10*3/uL 0.36-1.02 code = 742-7) EOS x10^3 (test 0.34 10*3/uL 0.06-0.53 code = 711-2) BASO x10^3 (test 0.06 10*3/uL 0.01-0.09 code = 704-7) [facility] CenterLAB ONLY COVID [id number] 15:23:58COVID DMT InterpretationInterpretation/Recommendations: Molecular NAAT Tests for [...] week of symptoms). Tests for IgM and/or IgG Antibodies to the SARS-CoV-2 Virus: If the patient develops COVID-19 illness in the future, testing for IgM and IgG antibodies approximately 3 weeks [...] COVID-19 testing the patient has had at [facility], including molecular NAAT testing (more commonly known as PCR testing and Rapid ID Now testing) and antibody testing. It does not take into account any testingthat a patient has had outside of the [facility] medical record. [facility] LABORATORY SERVICESCOVID LjprrciNVZO-KxL-2 Rapid ID NOW (no units) ? ? Date ? Value ? 10/24/2020 ? Not Detected ? ? ? 07/28/2020 ? Not Detected ? [facility]ORAT[facility] SERVICESUnCHRI[facility] COMP. METABOLIC PANEL (46532)2020-10-26 12:44:29 Test Item Value Reference Range Interpretation Comments NA (test code = 135 mmol/L 135-145 0104459941) K (test code = 4.2 mmol/L 3.5-5.0 8400640110) CL (test code = 101 mmol/L 98-108 6109343760) CO2 TOTAL (test code = 25 mmol/L 23-31 9582681889) AGAP (test code = 2-16 7336088912) BUN (test code = 7 mg/dL 7-23 9251432557) GLUCOSE (test code = 84 mg/dL 70-110 7572632414) CREATININE (test code = 0.69 mg/dL 0.60-1.25 8835069397) TOTAL BILI (test code = 0.8 mg/dL 0.1-1.9 4968011433) CALCIUM (test code = 9.0 mg/dL 8.6-10.6 8971330510) T PROTEIN (test code = 6.3 g/dL 6.3-8.2 5113274485) ALBUMIN (test code = 3.5 g/dL 3.5-5.0 9440427681) ALK PHOS (test code = 83 U/L 34-122 7156940536) ALTv (test code = 37 U/L 5-50 1742-6) AST(SGOT) (test code = 45 U/L 13-40 H 0528441621) eGFR (test code = mL/min/1.73m2 4081880135) TAMIKO (test code = TAMIKO) Association of [...] tests). Lab Interpretation Abnormal (test code = 38397-8) [facility] Test Item Value Reference Range Interpretation Comments MAGNESIUM (test code = 3320879904) 1.4 mg/dL 1.7-2.4 L Lab Interpretation (test code = Abnormal 32854-3) [facility] METABOLIC PANEL (NA, K, CL, CO2, GLUCOSE, BUN, CREATININE, CA)2020-10-25 15:45:46 Test Item Value Reference Range Interpretation Comments NA (test code = 135 mmol/L 135-145 8031297692) K (test code = 3.1 mmol/L 3.5-5.0 L 6459799300) CL (test code = 106 mmol/L 98-108 2212523256) CO2 TOTAL (test code = 24 mmol/L 23-31 2053841195) AGAP (test code = 2-16 8873608387) BUN (test code = 4 mg/dL 7-23 L 4171890076) GLUCOSE (test code = 99 mg/dL 70-110 5163118564) CREATININE (test code = 0.61 mg/dL 0.60-1.25 5569389628) CALCIUM (test code = 7.4 mg/dL 8.6-10.6 L 7959692849) eGFR (test code = mL/min/1.73m2 9633742311) TAMIKO (test code = TAMIKO) Association of [...] tests). Lab Interpretation Abnormal (test code = 38281-2) [facility] ABDOMEN [id number] 23:59:57No evidence of acute sonographic abnormalities in the abdomen. RL: 135 ORDERING PHYSICIAN: NASEEM FLANAGAN HISTORY: Abdominal pain. Alcoholwithdrawal COMPARISON: none Permanently recorded sonographic images were stored in the PACs system. F INDINGS: Liver is normal in echotexture without distinct [...] portalvenous waveform in the main portal vein. [facility], Radiant Results Inft User - 10/24/2020 7:01 PM CDT ORDERING PHYSICIAN: ALVIN BACA HISTORY: Abdominal pain. Alcohol withdrawalCOMPARISON: nonePermanently recorded sonographic images were stored in the PACs system. FINDINGS:Liver [...] The aorta is normal incaliber. Pulse color dopplerexamination demonstrates a normal portalvenous waveform in the main portal vein.IMPRESSIONNo evidence of acute sonographic abnormalities in the abdomen.RL: 135Electronically signed by Wendy Reynolds 10/24/2020 6:59 PMUnGenoa Community HospitalNATASHA [id number] 17:24:18 Test Item Value Reference Range Interpretation Comments TROPONIN I (test 0.007 ng/mL See_Comment [Automated code = 1234767863) message] The system which generated this result [...] ? Lab Interpretation Normal (test code = 48514-1) [facility]MAG[facility]IUM2021-[facility] 14:02:13 Test Item Value Reference Range Interpretation Comments MAGNESIUM (test code = 8053032646) 1.9 mg/dL 1.7-2.4 Lab Interpretation (test code = Normal 64676-1) [facility] CenterCritical [id number] 13:45:35Jennifer Shea MD ? ? 10/24/2020 ?8:45 AMCritical CarePerformed by: Jennifer Shea MDAuthorized by: Jennifer Shea MD Critical care provider statement: ?Critical care time (minutes): ?45 ?Criticalcare was necessary to treat or prevent imminent or life-threatening deterioration of the following conditions: ?Metabolic crisis ?Critical care was time spent personally by me on the following activities: ?Ordering and performing treatments and interventions, ordering and review of laboratory studies,re-evaluation of patient's condition, blood draw for specimens, evaluation of patient's response to treatment and examination of patientUnCHRISTUS [facility] – Medical CenterFR [id number] 13:37:55 Test Item Value Reference Range Interpretation Comments FREE T4 (test code = See_Comment [Autom ated message] 1828884866) The system [employer] generated this result transmitted ref erence range: 0.78 - 2 .20 ng/dL:. The ref erence range was not u sed to interpret this result as normal/abnor mal. Lab Interpretation (test Normal code = 64456-5) [facility] CenterTHYROID STIMULATING [id number] 13:21:08 Test Item Value Reference Range Interpretation Comments TSH (test code = See_Comment [Automated message] 0641916660) The system [employer] generated this result transmitted ref erence range: 0.45 - 4 .70 mIU/L. The refe rence range was not u sed to interpret this result as normal/abnor mal. Lab Interpretation (test Normal code = 57925-0) [facility] CenterCOVID[facility]19 (ID NOW RAPID TESTING)2020-10-24 13:06:12 Test Item Value Reference Range Interpretation Comments SARS-CoV-2 Rapid ID NOW Not Detected Not Detected (test code = 26133-0) TAMIKO (test code = TAMIKO) ID NOW COVID-19 Assay is an isothermal nucleic acid amplification test intended for the qualitative detection of nucleic acid from SARS-CoV-2 viral RNA in nasopharyngeal (COCOA ROOM OPERATOR) specimens. It is used under Emergency Use [...] indicated. Lab Interpretation Normal (test code = 30017-6) [facility] CenterLOGAN [id number] 13:00:47 Test Item Value Reference Range Interpretation Comments TROPONIN I (test 0.017 ng/mL See_Comment [Automated code = 0242089007) message] The system which generated this result [...] ? Lab Interpretation Normal (test code = 67249-1) [facility] CenterN-TERMINAL [id number] 12:54:30 Test Item Value Reference Range Interpretation Comments NT-proBNP (test code 22 pg/mL See_Comment [Autom ated = 4645546981) message] The system which generated this result transmitted reference range : <=125. The reference range was not used to interpret this result as normal/abnormal . TAMIKO (test code = TAMIKO) Biotin has been reported to cause a negative bias, interpret results relative to patient's use of biotin. Lab Interpretation Normal (test code = 06593-8) [facility] CenterETHANOL2021-06-16 12:51:47 Test Item Value Reference Range Interpretation Comments ALCOHOL (test code = 284 mg/dL 3471222188) TAMIKO (test code = TAMIKO) <10 Bxszhguz50-518 Toxic>100 Depression of WATCH CRYSTAL MOLDER>400 Fatalities Reported [facility] CenterCREATINE [id number] 12:51:07 Test Item Value Reference Range Interpretation Comments CK (test code = 7001878855) 744 U/L 33-194 H Lab Interpretation (test code = Abnormal 45539-8) [facility] CenterLIPASE2021-06-16 12:51:07 Test Item Value Reference Range Interpretation Comments LIPASE (test code = 5748156440) 92 U/L 0-220 Lab Interpretation (test code = Normal 44588-3) [facility] ([id number])2020-10-24 12:49:29 Test Item Value Reference Range Interpretation Comments NA (test code = 144 mmol/L 135-145 6103675768) K (test code = 3.5 mmol/L 3.5-5.0 4192254452) CL (test code = 98 mmol/L 98-108 4219619123) CO2 TOTAL (test code = 29 mmol/L 23-31 3186787721) AGAP (test code = 2-16 H 5035368001) BUN (test code = 7 mg/dL 7-23 1752873249) GLUCOSE (test code = 148 mg/dL 70-110 H 7444340771) CREATININE (test code = 0.84 mg/dL 0.60-1.25 4599039430) TOTAL BILI (test code = 0.4 mg/dL 0.1-1.9 4771503573) CALCIUM (test code = 9.1 mg/dL 8.6-10.6 3591226207) T PROTEIN (test code = 7.6 g/dL 6.3-8.2 9909091391) ALBUMIN (test code = 4.5 g/dL 3.5-5.0 4913951468) ALK PHOS (test code = 89 U/L 34-122 5973004552) ALTv (test code = 49 U/L 5-50 1742-6) AST(SGOT) (test code = 75 U/L 13-40 H 7410268935) eGFR (test code = mL/min/1.73m2 9578584804) TAMIKO (test code = TAMIKO) Association of [...] tests). Lab Interpretation Abnormal (test code = 75519-7) [facility] CHEST PULMONARY [id number] 12:44:11 No pulmonary embolism to the level of the subsegmental branches. Mild congestion/atelectatic changes are seen in the anterior right upperlobe, nonspecific but could be a sign of viral infection/bronchitis. Pleasecorrelate. Preliminary Report Dictated by Resident: Mary Garnica MD., have reviewed this study and agree with theabove report.CT ANGIO CHEST WITH CONTRAST - PE PROTOCOL CLINICAL INDICATION: PE suspected, high pretest prob D-DIMER: None available COMPARISON: None. TECHNIQUE: Contrast enhanced spiral CT was performed with multi planarreformatted images provided for review prior pulmonary angiogram protocol. FINDINGS: PULMONARYARTERIES:Enhancement is adequate, and there is no acute or chronic pulmonaryembolism. Normal calibermain pulmonary trunk. CHEST:Lower neck/thyroid: Unremarkable. Lungs: Right upper lobe linear atelectatic changes. Central airway: Unremarkable. Pleura: No pleural effusion, thickening or pneumothorax. Thoracic aorta and great vessels: Normal in diameter. Standard three-vesselaortic arch. Heart and pericardium: No detectable coronary artery calcifications.Unremarkable cardiac morphology and pericardium. Normal RV LV ratio. Lymph nodes: No enlarged thoracic lymph nodes. Mediastinum: Unremarkable. Thoracic spine and chest wall: No acute bony abnormality. Gynecomastia. Visualized upper abdomen: Unremarkable. [facility], Radiant Results Inft User - 10/24/2020 7:[address] ANGIO CHEST WITH CONTRAST - PE PROTOCOLCLINIC AL INDICATION: PE suspected, high pretest prob D-DIMER: [...] arch.Heart and pericardium: No detectable coronary artery calcifications.Unremarkable cardiac morphology and pericardium. Normal RV LV ratio.Lymph nodes: No enlarged thoracic lymph nodes.Mediastinum: Unremarkable.Thoracic spine and chest wall: No acute bony abnormality. Gynecomastia.Visualized upper abdomen: Unremarkable. IMPRESSIONNo pulmonary embolism to the level of the subsegmental branches.Mild congestion/atelectatic changes are seen in the anterior right upperlobe, nonspecific but could be a sign of viral infection/bronchitis. Pleasecorrelate. Preliminary Report Dictated by Resident: Mary Fermin MD., have reviewed this study and agree with theabove report.[facility] (IMMUNOASSAY) - COMPREHENSIVE DRUG [id number] 12:36:45 Test Item Value Reference Range Interpretation Comments AMPHET (test code = Negative Negative 7223397279) CLAUDIA U (test code = Negative Negative 6203457309) BENZO U (test code = Presumptive Positive Negative A 3392528491) Cocaine Metabolite (test Negative Negative code = 6236601505) METHADONE (test code = Negative Negative 6644992857) OPIATES (test code = Negative Negative 9597057838) PCP (test code = Negative Negative 0093193055) THC (test code = Negative Negative 7197673616) TAMIKO (test code = TAMIKO) Urine Drug [...] testing). Lab Interpretation (test Abnormal code = 46138-6) [facility] CenterURINALYSIS2021-06-16 12:18:19 Test Item Value Reference Range Interpretation Comments APPEARANCE (test code = Clear Clear 6489631305) COLOR (test code = Yellow Yellow 7809616941) PH (test code = 4.8-8.0 6832592677) SP GRAVITY (test code = 1.003-1.030 H 8760134766) GLU U QUAL (test code = Normal Normal 3798809299) BLOOD (test code = 1+ Negative A 2529470985) KETONES (test code = Negative Negative 1650077825) PROTEIN (test code = 100 mg/dL Negative A 2887-8) UROBILIN (test code = Normal Normal 0688328776) BILIRUBIN (test code = Negative Negative 9068280716) NITRITE (test code = Negative Negative 2856295771) LEUK GINO (test code = Negative Negative 4857853090) RBC/HPF (test code = See_Comment [Autom ated message] 5525548345) The system [employer] generated this result transmit luis reference range : 0 - 3 HPF. The refe rence range was not u sed to interpret th is result as normal/abnormal . WBC/HPF (test code = See_Comment [Autom ated message] 9111726768) The system [employer] generated this result transmit luis reference range : 0 - 5 HPF. The refe rence range was not u sed to interpret th is result as normal/abnormal . BACTERIA (test code = Few Negative A 5166701662) MUCOUS (test code = Slight Negative LPF A 4881846188) SQ EPITH (test code = <1 HPF 5446612925) HYAL CAST (test code = See_Comment H [Aut omated message] 9943344110) The system [employer] generated this result transmit luis reference range : <=2 LPF. The refere nce range was not u sed to interpret th is result as normal/abnormal . GRAN CASTS (test code = See_Comment H [Au tomated message] 6245113631) The system [employer] generated this result transmit luis reference range : <=1 LPF. The refere nce range was not u sed to interpret th is result as normal/abnormal . Lab Interpretation (test Abnormal code = 45939-6) [facility] CenterD-[id number] 12:16:48 Test Item Value Reference Interpretation Comments Range D-DIMER (test code = See_Comment H [Autom ated 7520842510) message] The system which generated this result [...] diagnosis. Lab Interpretation Abnormal (test code = 92320-1) [facility] CenterACTIVATED PARTIAL THRMPLAS [id number] 12:10:05 Test Item Value Reference Range Interpretation Comments APTT Patient (test See_Comment [Automat ed code = 3173-2) message] The system which generated this result transmitted reference range : 23 - 38 Seconds . The reference range was not used to interpr et this result as normal/abnormal . TAMIKO (test code = TAMIKO) The [facility] patient population mean normal value for aPTT is 30 seconds. Lab Interpretation Normal (test code = 09382-8) [facility] CenterPROTHROMBIN TIME / [id number] 12:08:09 Test Item Value Reference Range Interpretation [...] tions. Lab Interpretation (test Normal code = 61472-3) [facility] WITH [id number] 11:46:38 Test Item Value Reference Range Interpretation [...] RDW-SD (test code = 43.2 fL 38.5-51.6 74221-9) RDW-CV (test code = 13.8 % 12.1-15.4 788-0) PLT (test code = See_Comment [Automated 777-3) message] The sy stem which generated this result transmitted reference range : 150 - 328 10*3/ ?L. The reference r javeir was not used to interpret this result as normal/abnormal . MPV (test code = 9.1 fL 9.8-13.0 L 24469-0) NRBC/100 WBC (test See_Comment [Automat ed code = 5009510781) message] The system which generated this result transmitted reference range : 0.0 - 10.0 /100 WBCs. The refer ence range was not u sed to interpret th is result as normal/abnormal . NRBC x10^3 (test code <0.01 See_Comment [Auto mated = 5819880095) message] The s ystem which generated this result transmitted reference range : 10*3/?L. The reference range was not used to interpret this result as normal/abnormal . GRAN MAT (NEUT) % 58.2 % (test code = 770-8) IMM GRAN % (test code 0.40 % = 8946184019) LYMPH % (test code = 29.0 % 736-9) MONO % (test code = 10.1 % 5905-5) EOS % (test code = 1.2 % 713-8) BASO % (test code = 1.1 % 706-2) GRAN MAT x10^3(ANC) 4.82 10*3/uL 1.99-6.95 (test code = 1324519234) IMM GRAN x10^3 (test 0.03 10*3/uL 0.00-0.06 code = 9605824312) LYMPH x10^3 (test code 2.40 10*3/uL 1.09-3.23 = 731-0) MONO x10^3 (test code 0.84 10*3/uL 0.36-1.02 = 742-7) EOS x10^3 (test code = 0.10 10*3/uL 0.06-0.53 711-2) BASO x10^3 (test code 0.09 10*3/uL 0.01-0.09 = 704-7) Lab Interpretation Abnormal (test code = 95522-6) [facility] CenterPOCT GLUCOSE (AUTOMATED)2020-10-24 11:21:11 Test Item Value Reference Range Interpretation Comments POCT GLU (test code = 6269878791) 147 mg/dL 70-110 H Lab Interpretation (test code = Abnormal 52554-3) [facility] CenterTHYROID STIMULATING [id number] 19:43:06 Test Item Value Reference Range Interpretation Comments TSH (test code = See_Comment [Automated message] 0706292387) The system [employer] generated this result transmitted ref erence range: 0.45 - 4 .70 mIU/L. The refe rence range was not u sed to interpret this result as normal/abnor mal. Lab Interpretation (test Normal code = 97196-0) [facility] CenteraPTT2021-03-20 19:41:21 Test Item Value Reference Range Interpretation Comments APTT Patient (test See_Comment [Automat ed code = 3173-2) message] The system which generated this result transmitted reference range : 23 - 38 Seconds . The reference range was not used to interpr et this result as normal/abnormal . TAMIKO (test code = TAMIKO) The [facility] patient population mean normal value for aPTT is 30 seconds. Lab Interpretation Normal (test code = 24571-7) [facility] [id number] 19:29:44 Test Item Value Reference Range Interpretation Comments FREE T4 (test code = See_Comment [Autom ated message] 0743208599) The system [employer] generated this result transmitted ref erence range: 0.78 - 2 .20 ng/dL:. The ref erence range was not u sed to interpret this result as normal/abnor mal. Lab Interpretation (test Normal code = 40332-5) [facility] CenterTroponin [id number] 19:24:48 Test Item Value Reference Range Interpretation Comments TROPONIN I (test <0.012 See_Comment [Automated code = 4849794098) message] The system which generated this result [...] ? Lab Interpretation Normal (test code = 77477-6) [facility] CenterN-TERMINAL [id number] 19:21:28 Test Item Value Reference Range Interpretation Comments NT-proBNP (test code 47 pg/mL See_Comment [Autom ated = 1393687009) message] The system which generated this result transmitted reference range : <=125. The reference range was not used to interpret this result as normal/abnormal . TAMIKO (test code = TAMIKO) Biotin has been reported to cause a negative bias, interpret results relative to patient's use of biotin. Lab Interpretation Normal (test code = 44702-8) [facility] CenterBasi Metabolic Panel (NA, K, CL, CO2, GLUCOSE, BUN, CREATININE, CA)2020-07-28 19:12:46 Test Item Value Reference Range Interpretation Comments NA (test code = 137 mmol/L 135-145 1753278727) K (test code = 3.5 mmol/L 3.5-5.0 9213483760) CL (test code = 99 mmol/L 98-108 3411854909) CO2 TOTAL (test code = 26 mmol/L 23-31 4886602712) AGAP (test code = 2-16 7153167727) BUN (test code = 3 mg/dL 7-23 L 3447665569) GLUCOSE (test code = 96 mg/dL 70-110 1067276982) CREATININE (test code = 0.69 mg/dL 0.60-1.25 0188838179) CALCIUM (test code = 9.1 mg/dL 8.6-10.6 4270696753) eGFR Calculation mL/min/1.73m2 (Non-) (test code = 2060402152) eGFR Calculation mL/min/1.73m2 () (test code = 2947829030) TAMIKO (test code = TAMIKO) Association of [...] tests). Lab Interpretation Abnormal (test code = 49956-8) [facility] CenterHepatic Function Panel (ALB, T.PRO, BILI T, BU/BC, ALT, AST, ALK PHOS)2020-07-28 19:12:26 Test Item Value Reference Range Interpretation Comments TOTAL BILI (test code = 6264635465) 0.5 mg/dL 0.1-1.1 BILI UNCON (test code = 7493959545) 0.3 mg/dL 0.1-1.1 BILI CONJ (test code = 4399100095) 0.0 mg/dL 0.0-0.3 T PROTEIN (test code = 2449819749) 7.7 g/dL 6.3-8.2 ALBUMIN (test code = 4053989035) 4.7 g/dL 3.5-5.0 ALK PHOS (test code = 5434740154) 115 U/L 34-122 ALTv (test code = 1742-6) 29 U/L 5-50 AST(SGOT) (test code = 6853622526) 27 U/L 13-40 Lab Interpretation (test code = Normal 60696-9) [facility] CenterCOVID-19 (ID NOW RAPID TESTING)2020-07-28 19:00:24 Test Item Value Reference Range Interpretation Comments SARS-CoV-2 Rapid ID NOW Not Detected Not Detected (test code = 09987-2) TAMIKO (test code = TAMIKO) ID NOW COVID-19 Assay is an isothermal nucleic acid amplification test intended for the qualitative detection of nucleic acid from SARS-CoV-2 viral RNA in nasopharyngeal ([employer]) specimens. It is used under Emergency Use [...] indicated. Lab Interpretation Normal (test code = 91280-0) [facility] / [facility] - DRUG SCREEN [id number] 18:56:58 Test Item Value Reference Range Interpretation Comments BENZO U (test code = Presumptive Positive Negative A 2315272260) CLAUDIA U (test code = Negative Negative 4648435310) AMPHET (test code = Presumptive Positive Negative A 8500210984) THC (test code = Negative Negative 7392421769) METHADONE (test code = Negative Negative 0753769628) Meth U (test code = Presumptive Positive Negative A 4172430456) OPIATES (test code = Presumptive Positive Negative A 1949279664) Cocaine Metabolite (test Negative Negative code = 7702867530) PROPOXY (test code = Negative Negative 0292931681) Tric U (test code = Negative Negative 2612475654) PCP (test code = Negative Negative 2203695774) OXYCOD (test code = Negative Negative 7115127521) TAMIKO (test code = TAMIKO) Urine Drug [...] testing). Lab Interpretation (test Abnormal code = 45044-6) [facility] CenterUrinalysis2021-03-20 18:54:32 Test Item Value Reference Range Interpretation Comments APPEARANCE (test code = Clear Clear 9037579550) COLOR (test code = Yellow Yellow 7920611319) PH (test code = 4.8-8.0 3639939798) SP GRAVITY (test code = 1.003-1.030 7123157788) GLU U QUAL (test code = Normal Normal 1853358893) BLOOD (test code = Negative Negative 8846061103) KETONES (test code = Negative Negative 6474734127) PROTEIN (test code = Negative Negative 2887-8) UROBILIN (test code = Normal Normal 9167273358) BILIRUBIN (test code = Negative Negative 5184917821) NITRITE (test code = Negative Negative 1988146894) LEUK GINO (test code = Negative Negative 2450431046) RBC/HPF (test code = See_Comment [Autom ated message] 4773714729) The system [employer] generated this result transmitted ref erence range: 0 - 3 HP F. The reference range was not used to int erpret this result as normal/abnormal . WBC/HPF (test code = <1 See_Comment [Autom ated message] 2213657847) The system [employer] generated this result transmitted ref erence range: 0 - 5 HP F. The reference range was not used to int erpret this result as normal/abnormal . BACTERIA (test code = Negative Negative 4486933367) Lab Interpretation (test Normal code = 90027-1) [facility] CenterProthrombin Time (PT) / [id number] 18:54:27 Test Item Value Reference Range Interpretation Comments PROTIME PATIENT (test See_Comment [Auto mated message] code = 5964-2) The system [employer] generated this result transmitted ref erence range: 12.0 - 1 4.7 Seconds. The re ference range was not u sed to interpret this result as normal/abnor mal. INR (test code = 6301-6) Nor mal INR <1.1; Warfarin Therap eutic range 2.0 to 3. 0 or 2.5 to 3.5, dep ending upon the indica tions. Lab Interpretation (test Normal code = 22339-8) [facility] with [id number] 18:41:23 Test Item Value Reference Range Interpretation Comments WBC (test code = See_Comment [Automated message] 7390-2) The system [employer] generated this result transmitted ref erence range: 4.20 - 1 0.70 10*3/?L. The re ference range was not u sed to interpret this result as normal/abnor mal. RBC (test code = See_Comment [Automated message] 869-8) The system [employer] generated this result transmitted ref erence range: [...] RDW-SD (test code 43.4 fL 38.5-51.6 = 56023-5) RDW-CV (test code 13.2 % 12.1-15.4 = 788-0) PLT (test code = See_Comment [Automated message] 907-3) The system [employer] generated this result transmitted ref erence range: 150 - 32 8 10*3/?L. The re ference range was not u sed to interpret this result as normal/abnor mal. MPV (test code = 9.9 fL 9.8-13.0 66179-9) NRBC/100 WBC (test See_Comment [Automat ed message] code = 2184286955) The syste m which generated this result transmitted ref erence range: 0.0 - 10 .0 /100 WBCs. The refer ence range was not u sed to interpret this result as normal/abnor mal. NRBC x10^3 (test <0.01 See_Comment [Automated message] code = 2894550545) The syste m which generated this result transmitted ref erence range: 10*3/?L. The reference range was not used to interpr et this result as normal/abnormal . GRAN MAT (NEUT) % 68.0 % (test code = 770-8) IMM GRAN % (test 0.50 % code = 6873975409) LYMPH % (test code 18.2 % = 736-9) MONO % (test code 11.6 % = 5905-5) EOS % (test code = 1.1 % 713-8) BASO % (test code 0.6 % = 706-2) GRAN MAT 5.40 10*3/uL 1.99-6.95 x10^3(ANC) (test code = 5401085005) IMM GRAN x10^3 0.04 10*3/uL 0.00-0.06 (test code = 3856222704) LYMPH x10^3 (test 1.45 10*3/uL 1.09-3.23 code = 731-0) MONO x10^3 (test 0.92 10*3/uL 0.36-1.02 code = 742-7) EOS x10^3 (test 0.09 10*3/uL 0.06-0.53 code = 711-2) BASO x10^3 (test 0.05 10*3/uL 0.01-0.09 code = 704-7) [facility] CenterKUSHALFORMERLY [facility] CENTERALEJANDRO [id number] 15:56:00 Test Item Value Reference Range Interpretation Comments TROPONIN I (test 0.006 ng/mL See_Comment [Automated code = 6996399834) message] The system which generated this result [...] ? Lab Interpretation Normal (test code = 48640-8) [facility] CenterTROPONIN [id number] 14:08:00 Test Item Value Reference Range Interpretation Comments TROPONIN I (test 0.021 ng/mL See_Comment Hemolyzed code = 9686446910) specimen [Automated message] The system which generated [...] ? Lab Interpretation Normal (test code = 30742-1) [facility] Metabolic Panel (NA, K, CL, CO2, GLUCOSE, BUN, CREATININE, CA)2020-06-30 13:25:00 Test Item Value Reference Range Interpretation Comments NA (test code = 138 mmol/L 135-145 7187608569) K (test code = 3.5 mmol/L 3.5-5 6084116060) CL (test code = 107 mmol/L 98-108 3814243506) CO2 TOTAL (test code = 20 mmol/L 23-31 L 1142464076) AGAP (test code = 2-16 1354614376) BUN (test code = 12 mg/dL 7-23 5240475694) GLUCOSE (test code = 93 mg/dL 70-110 1710074167) CREATININE (test code = 0.83 mg/dL 0.6-1.25 2106754145) CALCIUM (test code = 8.9 mg/dL 8.6-10.6 5643970029) eGFR Calculation mL/min/1.73m2 (Non-) (test code = 1654859770) eGFR Calculation mL/min/1.73m2 () (test code = 2894749568) TAMIKO (test code = TAMIKO) Association of [...] tests). Lab Interpretation Abnormal (test code = 31905-6) [facility] with [id number] 13:04:00 Test Item Value Reference Range Interpretation Comments WBC (test code = See_Comment [Automated 7090-2) message] The sy stem which generated this result transmitted reference range : 4.20 - 10.70 10*3/?L. The reference range was not used to interpret this result as normal/abnormal . RBC (test code = See_Comment L [Automated 269-8) message] The sy stem which generated this [...] RDW-SD (test code = 47.3 fL 38.5-51.6 99192-7) RDW-CV (test code = 14.1 % 12.1-15.4 788-0) PLT (test code = See_Comment [Automated 777-3) message] The sy stem which generated this result transmitted reference range : 150 - 328 10*3/ ?L. The reference r javier was not used to interpret this result as normal/abnormal . MPV (test code = 10.1 fL 9.8-13 94690-0) NRBC/100 WBC (test See_Comment [Automat ed code = 0985539202) message] The system which generated this result transmitted reference range : 0.0 - 10.0 /100 WBCs. The refer ence range was not u sed to interpret th is result as normal/abnormal . NRBC x10^3 (test code <0.01 See_Comment [Auto mated = 9584747356) message] The s ystem which generated this result transmitted reference range : 10*3/?L. The reference range was not used to interpret this result as normal/abnormal . GRAN MAT (NEUT) % 45.2 % (test code = 770-8) IMM GRAN % (test code 0.50 % = 4847700501) LYMPH % (test code = 39.0 % 736-9) MONO % (test code = 11.9 % 5905-5) EOS % (test code = 2.6 % 713-8) BASO % (test code = 0.8 % 706-2) GRAN MAT x10^3(ANC) 3.00 10*3/uL 1.99-6.95 (test code = 3258851722) IMM GRAN x10^3 (test 0.03 10*3/uL 0-0.06 code = 7450511885) LYMPH x10^3 (test code 2.58 10*3/uL 1.09-3.23 = 731-0) MONO x10^3 (test code 0.79 10*3/uL 0.36-1.02 = 742-7) EOS x10^3 (test code = 0.17 10*3/uL 0.06-0.53 711-2) BASO x10^3 (test code 0.05 10*3/uL 0.01-0.09 = 704-7) Lab Interpretation Abnormal (test code = 17068-7) [facility] CenterXR [facility] 1 [id number] 05:44:12 No acute cardiopulmonary abnormality. Preliminary Report Dictated by Resident: Reymundo Gonzales MD., have reviewed this study and agree with the abovereport.XR CHEST 1 VW HISTORY: chest pain COMPARISON: 06/15/2019 TECHNIQUE: AP radiograph of the chest chest was performed. FINDINGS: Thelungs are clear. No focal consolidation, pneumothorax or pleuraleffusion is seen. The cardiomediastinal silhouette is normal. No acute osseous abnormality. [facility], Radiant Results Inft User - 11/10/2019 12:45 AM CDTXR CHEST 1 VWHISTORY: chest pain COMPARISON: 06/15/2019TECHNIQUE: AP radiograph of the chest chest was performed.FINDINGS:The lungs are clear. No focal consolidation, pneumothorax or pleuraleffusion is seen.The cardiomediastinal silhouette is normal.No acute osseous abnormality.IMPRESSIONNo acute cardiopulmonary abnormality.Preliminary Report Dictated by Resident: Berhane Chin, Reymundo Hoskins MD., have reviewed this study and agree with the abovereport.[facility] TROPONIN [id number] 05:05:00 Test Item Value Reference Range Interpretation Comments TROPONIN I (test <0.012 See_Comment [Automated code = 9939725000) message] The system which generated this result [...] ? Lab Interpretation Normal (test code = 32019-4) [facility] CenterCOMP. METABOLIC PANEL (66135)2019-11-10 05:05:00 Test Item Value Reference Range Interpretation Comments NA (test code = 135 mmol/L 135-145 8552981441) K (test code = 3.6 mmol/L 3.5-5 3167458063) CL (test code = 102 mmol/L 98-108 1919154353) CO2 TOTAL (test code = 23 mmol/L 23-31 8200377655) AGAP (test code = 2-16 1927034983) BUN (test code = 15 mg/dL 7-23 0682501137) GLUCOSE (test code = 93 mg/dL 70-110 3818398134) CREATININE (test code 0.79 mg/dL 0.6-1.25 = 5058536144) TOTAL BILI (test code 0.4 mg/dL 0.1-1.1 = 1371099779) CALCIUM (test code = 9.4 mg/dL 8.6-10.6 2056144240) T PROTEIN (test code = 7.9 g/dL 6.3-8.2 7254444088) ALBUMIN (test code = 4.5 g/dL 3.5-5 0837703013) ALK PHOS (test code = 61 U/L 34-122 3587991413) ALTv (test code = 22 U/L 5-50 1742-6) AST(SGOT) (test code = 26 U/L 13-40 9225736513) eGFR Calculation mL/min/1.73m2 (Non-) (test code = 2699935656) eGFR Calculation mL/min/1.73m2 () (test code = 7960253680) TAMIKO (test code = TAMIKO) Association of [...] urine or abnormalities in imaging tests). [facility] CenteraPTT2020-07-02 04:45:00 Test Item Value Reference Range Interpretation Comments APTT Patient (test See_Comment [Automat ed code = 3173-2) message] The system which generated this result transmitted reference range : 23 - 38 Seconds . The reference range was not used to interpr et this result as normal/abnormal . TAMIKO (test code = TAMIKO) The [facility] patient population mean normal value for aPTT is 30 seconds. Lab Interpretation Normal (test code = 34998-6) [facility] CenterPROTHROMBIN TIME / [id number] 04:45:00 Test Item Value Reference Range Interpretation [...] tions. Lab Interpretation (test Normal code = 06563-4) [facility] [id number] 04:37:00 Test Item Value Reference Range Interpretation [...] RDW-SD (test code = 39.7 fL 38.5-51.6 76485-3) RDW-CV (test code = 12.7 % 12.1-15.4 788-0) PLT (test code = See_Comment [Automated 777-3) message] The sy stem which generated this result transmitted reference range : 150 - 328 10*3/ ?L. The reference r javier was not used to interpret this result as normal/abnormal . MPV (test code = 10.3 fL 9.8-13 92279-2) NRBC/100 WBC (test See_Comment [Automat ed code = 9067628943) message] The system which generated this result transmitted reference range : 0.0 - 10.0 /100 WBCs. The refer ence range was not u sed to interpret th is result as normal/abnormal . NRBC x10^3 (test code <0.01 See_Comment [Auto mated = 4774706282) message] The s ystem which generated this result transmitted reference range : 10*3/?L. The reference range was not used to interpret this result as normal/abnormal . GRAN MAT (NEUT) % 47.9 % (test code = 770-8) IMM GRAN % (test code 0.20 % = 9253281330) LYMPH % (test code = 33.3 % 736-9) MONO % (test code = 12.1 % 5905-5) EOS % (test code = 5.7 % 713-8) BASO % (test code = 0.8 % 706-2) GRAN MAT x10^3(ANC) 5.08 10*3/uL 1.99-6.95 (test code = 8871391624) IMM GRAN x10^3 (test <0.03 0-0.06 code = 6970568462) LYMPH x10^3 (test code 3.53 10*3/uL 1.09-3.23 H = 731-0) MONO x10^3 (test code 1.28 10*3/uL 0.36-1.02 H = 742-7) EOS x10^3 (test code = 0.61 10*3/uL 0.06-0.53 H 711-2) BASO x10^3 (test code 0.09 10*3/uL 0.01-0.09 = 704-7) Lab Interpretation Abnormal (test code = 60572-9) [facility] 16:01:00 Test Item Value Reference Range Interpretation Comments APPEARANCE (test code = Clear Clear 1947090898) COLOR (test code = Other Yellow A 9372947050) PH (test code = 4.8-8.0 2898811756) SP GRAVITY (test code = <=1.005 1.003-1.030 6033940399) GLU U QUAL (test code = Negative Negative 9704780516) BLOOD (test code = Negative Negative 2191597032) KETONES (test code = Negative Negative 8285523013) PROTEIN (test code = Negative Negative 2887-8) UROBILIN (test code = 0.2 mg/dL See_Comment [Auto mated message] 5571833671) The system [employer] generated this result transmit luis reference range : 0-1.0 mg/dL. Th e reference range was not used to interpret this result as normal/abnormal . BILIRUBIN (test code = Negative Negative 1549445247) NITRITE (test code = Negative Negative 7303560688) LEUK GINO (test code = Negative Negative 5785096519) RBC/HPF (test code = See_Comment [Autom ated message] 2278870243) The system [employer] generated this result transmit luis reference range : 0 - 3 HPF. The refe rence range was not u sed to interpret th is result as normal/abnormal . WBC/HPF (test code = See_Comment [Autom ated message] 7858865116) The system [employer] generated this result transmit luis reference range : 0 - 5 HPF. The refe rence range was not u sed to interpret th is result as normal/abnormal . BACTERIA (test code = Negative Negative 1268845900) MUCOUS (test code = Slight Negative LPF A 5840823467) SQ EPITH (test code = HPF 1490216848) Lab Interpretation (test Abnormal code = 91974-1) [facility]. METABOLIC PANEL (15790)2019-09-29 15:57:00 Test Item Value Reference Range Interpretation Comments NA (test code = 140 mmol/L 135-145 7525202570) K (test code = 4.8 mmol/L 3.5-5 5046237235) CL (test code = 106 mmol/L 98-108 0189461846) CO2 TOTAL (test code = 24 mmol/L 23-31 7562812687) AGAP (test code = 2-16 7051011790) BUN (test code = 14 mg/dL 7-23 1837018718) GLUCOSE (test code = 94 mg/dL 70-110 8392101275) CREATININE (test code 0.66 mg/dL 0.6-1.25 = 3119680073) TOTAL BILI (test code 0.5 mg/dL 0.1-1.1 = 9645508870) CALCIUM (test code = 9.5 mg/dL 8.6-10.6 1734818297) T PROTEIN (test code = 8.1 g/dL 6.3-8.2 2856330263) ALBUMIN (test code = 4.6 g/dL 3.5-5 9318850475) ALK PHOS (test code = 41 U/L 34-122 1224344672) ALTv (test code = 17 U/L 5-50 1742-6) AST(SGOT) (test code = 29 U/L 13-40 1453598311) eGFR Calculation mL/min/1.73m2 (Non-) (test code = 4030852032) eGFR Calculation mL/min/1.73m2 () (test code = 4760093693) TAMIKO (test code = TAMIKO) Association of [...] urine or abnormalities in imaging tests). [facility] WITH [id number] 15:34:00 Test Item Value Reference Range Interpretation Comments WBC (test code = See_Comment [Automated 0991-2) message] The sy stem which generated this result transmitted reference range : 4.20 - 10.70 10*3/?L. The reference range was not used to interpret this result as normal/abnormal . RBC (test code = See_Comment [Automated 700-8) message] The sy stem which generated this [...] RDW-SD (test code = 41.0 fL 38.5-51.6 38800-3) RDW-CV (test code = 12.5 % 12.1-15.4 788-0) PLT (test code = See_Comment [Automated 777-3) message] The sy stem which generated this result transmitted reference range : 150 - 328 10*3/ ?L. The reference r javier was not used to interpret this result as normal/abnormal . MPV (test code = 10.3 fL 9.8-13 27562-4) NRBC/100 WBC (test See_Comment [Automat ed code = 4448831091) message] The system which generated this result transmitted reference range : 0.0 - 10.0 /100 WBCs. The refer ence range was not u sed to interpret th is result as normal/abnormal . NRBC x10^3 (test code <0.01 See_Comment [Auto mated = 4351039638) message] The s ystem which generated this result transmitted reference range : 10*3/?L. The reference range was not used to interpret this result as normal/abnormal . GRAN MAT (NEUT) % 54.5 % (test code = 770-8) IMM GRAN % (test code 0.20 % = 9341262675) LYMPH % (test code = 28.0 % 736-9) MONO % (test code = 10.0 % 5905-5) EOS % (test code = 6.6 % 713-8) BASO % (test code = 0.7 % 706-2) GRAN MAT x10^3(ANC) 4.68 10*3/uL 1.99-6.95 (test code = 1423338891) IMM GRAN x10^3 (test <0.03 0-0.06 code = 5810439991) LYMPH x10^3 (test code 2.41 10*3/uL 1.09-3.23 = 731-0) MONO x10^3 (test code 0.86 10*3/uL 0.36-1.02 = 742-7) EOS x10^3 (test code = 0.57 10*3/uL 0.06-0.53 H 711-2) BASO x10^3 (test code 0.06 10*3/uL 0.01-0.09 = 704-7) Lab Interpretation Abnormal (test code = 52678-2) [facility] [id number] 13:56:00 Test Item Value Reference Range Interpretation Comments TROPONIN I (test <0.012 See_Comment [Automated code = 4077920077) message] The system which generated this result [...] ? Lab Interpretation Normal (test code = 21007-6) [facility] / [id number] 13:44:00 Test Item Value Reference Range Interpretation Comments PROTIME PATIENT (test See_Comment [Auto mated message] code = 5964-2) The system ich generated this result transmitted ref erence range: 12.0 - 1 4.7 Seconds. The re ference range was not u sed to interpret this result as normal/abnor mal. INR (test code = 6301-6) Nor mal INR <1.1; Warfarin Therap eutic range 2.0 to 3. 0 or 2.5 to 3.5, dep ending upon the indica tions. Lab Interpretation (test Normal code = 43254-9) [facility]. METABOLIC PANEL (97000)2019-06-16 13:44:00 Test Item Value Reference Range Interpretation Comments NA (test code = 138 mmol/L 135-145 2776447636) K (test code = 3.9 mmol/L 3.5-5 5560785899) CL (test code = 100 mmol/L 98-108 3258414036) CO2 TOTAL (test code = 28 mmol/L 23-31 2734950122) AGAP (test code = 2-16 8006206479) BUN (test code = 14 mg/dL 7-23 4235389815) GLUCOSE (test code = 108 mg/dL 70-110 0748489547) CREATININE (test code = 0.75 mg/dL 0.6-1.25 5108388996) TOTAL BILI (test code = 0.5 mg/dL 0.1-1.2 8980091458) CALCIUM (test code = 8.8 mg/dL 8.6-10.6 7639596759) T PROTEIN (test code = 7.3 g/dL 6.3-8.2 9906555923) ALBUMIN (test code = 4.4 g/dL 3.5-5 6351667693) ALK PHOS (test code = 63 U/L 34-122 2869910438) ALTv (test code = 48 U/L 5-50 1742-6) AST(SGOT) (test code = 47 U/L 13-40 H 7439672704) eGFR Calculation mL/min/1.73m2 (Non-) (test code = 3986424388) eGFR Calculation mL/min/1.73m2 () (test code = 1495344668) TAMIKO (test code = TAMIKO) Association of [...] tests). Lab Interpretation Abnormal (test code = 60129-6) [facility] CenterLIPASE, [id number] 13:44:00 Test Item Value Reference Range Interpretation Comments LIPASE (test code = 7665476618) 61 U/L 0-220 Lab Interpretation (test code = Normal 24528-4) [facility]eraPTT2020-[facility] 13:43:00 Test Item Value Reference Range Interpretation Comments APTT Patient (test See_Comment [Automat ed code = 3173-2) message] The system which generated this result transmitted reference range : 23 - 38 Seconds . The reference range was not used to interpr et this result as normal/abnormal . TAMIKO (test code = TAMIKO) The [facility] patient population mean normal value for aPTT is 30 seconds. Lab Interpretation Normal (test code = 88827-9) [facility] WITH [id number] 13:30:00 Test Item Value Reference Range Interpretation [...] RDW-SD (test code = 40.6 fL 38.5-51.6 44804-2) RDW-CV (test code = 12.6 % 12.1-15.4 788-0) PLT (test code = See_Comment [Automated 777-3) message] The sy stem which generated this result transmitted reference range : 150 - 328 10*3/ ?L. The reference r javier was not used to interpret this result as normal/abnormal . MPV (test code = 9.7 fL 9.8-13 L 29514-8) NRBC/100 WBC (test See_Comment [Automat ed code = 5766025274) message] The system which generated this result transmitted reference range : 0.0 - 10.0 /100 WBCs. The refer ence range was not u sed to interpret th is result as normal/abnormal . NRBC x10^3 (test code <0.01 See_Comment [Auto mated = 2033703991) message] The s ystem which generated this result transmitted reference range : 10*3/?L. The reference range was not used to interpret this result as normal/abnormal . GRAN MAT (NEUT) % 52.5 % (test code = 770-8) IMM GRAN % (test code 0.30 % = 6512265960) LYMPH % (test code = 29.9 % 736-9) MONO % (test code = 11.5 % 5905-5) EOS % (test code = 4.5 % 713-8) BASO % (test code = 1.3 % 706-2) GRAN MAT x10^3(ANC) 3.14 10*3/uL 1.99-6.95 (test code = 3971426758) IMM GRAN x10^3 (test <0.03 0-0.06 code = 9076074827) LYMPH x10^3 (test code 1.79 10*3/uL 1.09-3.23 = 731-0) MONO x10^3 (test code 0.69 10*3/uL 0.36-1.02 = 742-7) EOS x10^3 (test code = 0.27 10*3/uL 0.06-0.53 711-2) BASO x10^3 (test code 0.08 10*3/uL 0.01-0.09 = 704-7) Lab Interpretation Abnormal (test code = 90043-7) [facility] CenterLOGAN [id number] 19:02:00 Test Item Value Reference Range Interpretation Comments TROPONIN I (test <0.012 See_Comment [Automated code = 3077680111) message] The system which generated this result [...] ? Lab Interpretation Normal (test code = 60829-0) [facility]. METABOLIC PANEL (67480)2019-06-15 18:50:00 Test Item Value Reference Range Interpretation Comments NA (test code = 145 mmol/L 135-145 0403082970) K (test code = 4.1 mmol/L 3.5-5 9611762506) CL (test code = 103 mmol/L 98-108 5400703316) CO2 TOTAL (test code = 32 mmol/L 23-31 H 3613365316) AGAP (test code = 2-16 2135790123) BUN (test code = 11 mg/dL 7-23 8901766428) GLUCOSE (test code = 108 mg/dL 70-110 6190120293) CREATININE (test code = 0.73 mg/dL 0.6-1.25 7510164282) TOTAL BILI (test code = 0.5 mg/dL 0.1-1.9 8885901534) CALCIUM (test code = 9.3 mg/dL 8.6-10.6 2556224337) T PROTEIN (test code = 8.1 g/dL 6.3-8.2 5536044786) ALBUMIN (test code = 4.9 g/dL 3.5-5 3634278785) ALK PHOS (test code = 65 U/L 34-122 7886022647) ALTv (test code = 61 U/L 5-50 H 1742-6) AST(SGOT) (test code = 45 U/L 13-40 H 2116086020) eGFR Calculation mL/min/1.73m2 (Non-) (test code = 9585246809) eGFR Calculation mL/min/1.73m2 () (test code = 5578125103) TAMIKO (test code = TAMIKO) Association of [...] tests). Lab Interpretation Abnormal (test code = 91134-1) [facility] CenterMAGNESIUM2020-02-05 18:50:00 Test Item Value Reference Range Interpretation Comments MAGNESIUM (test code = 1205577688) 2.2 mg/dL 1.7-2.4 Lab Interpretation (test code = Normal 99121-0) [facility] WITH [id number] 18:39:00 Test Item Value Reference Range Interpretation Comments WBC (test code = See_Comment [Automated message] 6690-2) The system [employer] generated this result transmitted ref erence range: 4.20 - 1 0.70 10*3/?L. The re ference range was not u sed to interpret this result as normal/abnor mal. RBC (test code = See_Comment [Automated message] 789-8) The system [employer] generated this result transmitted ref erence range: [...] RDW-SD (test code 41.5 fL 38.5-51.6 = 02459-0) RDW-CV (test code 12.9 % 12.1-15.4 = 788-0) PLT (test code = See_Comment [Automated message] 777-3) The system whic h generated this result transmitted ref erence range: 150 - 32 8 10*3/?L. The re ference range was not u sed to interpret this result as normal/abnor mal. MPV (test code = 10.0 fL 9.8-13 59102-5) NRBC/100 WBC (test See_Comment [Automat ed message] code = 2405297900) The syste m which generated this result transmitted ref erence range: 0.0 - 10 .0 /100 WBCs. The refer ence range was not u sed to interpret this result as normal/abnor mal. NRBC x10^3 (test <0.01 See_Comment [Automated message] code = 7742235544) The syste m which generated this result transmitted ref erence range: 10*3/?L. The reference range was not used to interpr et this result as normal/abnormal . GRAN MAT (NEUT) % 45.9 % (test code = 770-8) IMM GRAN % (test 0.10 % code = 1427393659) LYMPH % (test code 39.6 % = 736-9) MONO % (test code 8.6 % = 5905-5) EOS % (test code = 4.6 % 713-8) BASO % (test code 1.2 % = 706-2) GRAN MAT 3.36 10*3/uL 1.99-6.95 x10^3(ANC) (test code = 6624804076) IMM GRAN x10^3 <0.03 0-0.06 (test code = 9095535413) LYMPH x10^3 (test 2.91 10*3/uL 1.09-3.23 code = 731-0) MONO x10^3 (test 0.63 10*3/uL 0.36-1.02 code = 742-7) EOS x10^3 (test 0.34 10*3/uL 0.06-0.53 code = 711-2) BASO x10^3 (test 0.09 10*3/uL 0.01-0.09 code = 704-7) [facility] CenterXR CHEST 1 [id number] 18:31:36HISTORY: SOB. TECHNIQUE: Portable AP erect view of the chest is obtained. Comparison madewith 11/08/2018 study. FINDINGS: No acute pneumonia. No pneumothorax or pleural effusion orpulmonary congestion detected. Cardiac size is within normal limits. CONCLUSIONS: No signs of acute cardiopulmonary disease.[facility], Radiant Results Inft User - 06/15/2019 12:32 PM CSTHISTORY: SOB.TECHNIQUE: Portable AP erect vie w of the chest is obtained. Comparison madewith [...] 3841) Lab Interpretation (test code = Normal 66173-3) [facility] GRP A STREP (MOLECULAR)2019 16:34:00 Test Item Value Reference Range Interpretation Comments POCT GP A STREP (test code = negative Negative - Negative 47810-3) Lab Interpretation (test code = Normal 88678-8) [facility]2019-[facility]-16 23:07:00 Test Item Value Reference Range Interpretation Comments APPEARANCE (test code = Clear Clear 3481236953) COLOR (test code = Yellow Yellow 5039028412) PH (test code = 4.8-8.0 7504126503) SP GRAVITY (test code = 1.003-1.030 2682690565) GLU U QUAL (test code = Normal Normal 3551781244) BLOOD (test code = Negative Negative 0567880580) KETONES (test code = 5 mg/dL Negative A 8945633939) PROTEIN (test code = Negative Negative 2887-8) UROBILIN (test code = Normal Normal 8241869698) BILIRUBIN (test code = Negative Negative 6099244626) NITRITE (test code = Negative Negative 0381476875) LEUK GINO (test code = Negative Negative 1431691128) RBC/HPF (test code = See_Comment [Autom ated message] 5913793942) The system [employer] generated this result transmitted ref erence range: 0 - 3 HP F. The reference range was not used to int erpret this result as normal/abnormal . WBC/HPF (test code = See_Comment [Autom ated message] 8341870818) The system [employer] generated this result transmitted ref erence range: 0 - 5 HP F. The reference range was not used to int erpret this result as normal/abnormal . BACTERIA (test code = Negative Negative 2827846868) MUCOUS (test code = Slight Negative LPF A 3377571887) HYAL CAST (test code = See_Comment H [Aut omated message] 5423092804) The system [employer] generated this result transmitted ref erence range: <=2 LPF. The reference range was not used to int erpret this result as normal/abnormal . Lab Interpretation (test Abnormal code = 93042-0) [facility] [id number] 22:42:00 Test Item Value Reference Range Interpretation Comments TROPONIN I (test 0.002 ng/mL See_Comment [Automated code = 9634455253) message] The system which generated this result [...] ? Lab Interpretation Normal (test code = 33375-9) [facility] - DRUG SCREEN [id number] 22:36:00 Test Item Value Reference Range Interpretation Comments BENZO U (test code = Presumptive Positive Negative A 5221520731) CLAUDIA U (test code = Negative Negative 2783162400) AMPHET (test code = Negative Negative 7597559318) THC (test code = Negative Negative 0790767098) METHADONE (test code = Negative Negative 4401004318) Meth U (test code = Negative Negative 4425290429) OPIATES (test code = Negative Negative 0988244590) Cocaine Metabolite (test Negative Negative code = 1948530499) PROPOXY (test code = Negative Negative 9945433377) Tric U (test code = Negative Negative 5922941754) PCP (test code = Negative Negative 7434749930) OXYCOD (test code = Negative Negative 3284881878) TAMIKO (test code = TAMIKO) Urine Drug [...] testing). Lab Interpretation (test Abnormal code = 55656-1) [facility]. METABOLIC PANEL (83096)2019-01-24 22:30:00 Test Item Value Reference Range Interpretation Comments NA (test code = 148 mmol/L 135-145 H 5672586867) K (test code = 4.0 mmol/L 3.5-5 1224218928) CL (test code = 110 mmol/L 98-108 H 6928774580) CO2 TOTAL (test code = 24 mmol/L 23-31 4503979751) AGAP (test code = 2-16 0381987663) BUN (test code = 9 mg/dL 7-23 4201943996) GLUCOSE (test code = 85 mg/dL 70-110 9834269649) CREATININE (test code = 0.67 mg/dL 0.6-1.25 1570466297) TOTAL BILI (test code = 0.2 mg/dL 0.1-1.8 8632077622) CALCIUM (test code = 8.7 mg/dL 8.6-10.6 9306495748) T PROTEIN (test code = 7.8 g/dL 6.3-8.2 4323385107) ALBUMIN (test code = 4.7 g/dL 3.5-5 4958135938) ALK PHOS (test code = 47 U/L 34-122 5378807962) ALT(SGPT) (test code = 19 U/L 9-51 1012322615) AST(SGOT) (test code = 25 U/L 13-40 6741208184) eGFR Calculation mL/min/1.73m2 (Non-) (test code = 6472240167) eGFR Calculation mL/min/1.73m2 () (test code = 8928189715) TAMIKO (test code = TAMIKO) Association of Glomerular Filtration Rate (GFR) and Staging of Kidney Disease*+ + + +| GFR (mL/min/1.73 m2)?| With Kidney Damage?|?Without Kidney Damage+ --------+ --------+ +|?>90?|?S lorrie one?|? Normal?+ ---------+ ---------+ +|?60-89? |?Stage two?|? [...] tests). Lab Interpretation Abnormal (test code = 46839-7) [facility] 22:30:00 Test Item Value Reference Range Interpretation Comments LIPASE (test code = 6994693834) 112 U/L 0-220 Lab Interpretation (test code = Normal 65290-4) [facility] CenterCB WITH [id number] 22:07:00 Test Item Value Reference Range Interpretation Comments WBC (test code = See_Comment [Automated message] 6690-2) The system [employer] generated this result transmitted ref erence range: 4.20 - 1 0.70 10*3/?L. The re ference range was not u sed to interpret this result as normal/abnor mal. RBC (test code = See_Comment [Automated message] 249-8) The system [employer] generated this result transmitted ref erence range: [...] RDW-SD (test code 42.0 fL 38.5-51.6 = 08220-7) RDW-CV (test code 12.8 % 12.1-15.4 = 788-0) PLT (test code = See_Comment [Automated message] 777-3) The system whic h generated this result transmitted ref erence range: 150 - 32 8 10*3/?L. The re ference range was not u sed to interpret this result as normal/abnor mal. MPV (test code = 10.7 fL 9.8-13 65277-5) NRBC/100 WBC (test See_Comment [Automat ed message] code = 6890113193) The syste m which generated this result transmitted ref erence range: 0.0 - 10 .0 /100 WBCs. The refer ence range was not u sed to interpret this result as normal/abnor mal. NRBC x10^3 (test <0.01 See_Comment [Automated message] code = 5638120817) The syste m which generated this result transmitted ref erence range: 10*3/?L. The reference range was not used to interpr et this result as normal/abnormal . GRAN MAT (NEUT) % 55.2 % (test code = 770-8) IMM GRAN % (test 0.20 % code = 7612516048) LYMPH % (test code 29.8 % = 736-9) MONO % (test code 9.8 % = 5905-5) EOS % (test code = 4.4 % 713-8) BASO % (test code 0.6 % = 706-2) GRAN MAT 4.72 10*3/uL 1.99-6.95 x10^3(ANC) (test code = 8280376730) IMM GRAN x10^3 <0.03 0-0.06 (test code = 4492333841) LYMPH x10^3 (test 2.55 10*3/uL 1.09-3.23 code = 731-0) MONO x10^3 (test 0.84 10*3/uL 0.36-1.02 code = 742-7) EOS x10^3 (test 0.38 10*3/uL 0.06-0.53 code = 711-2) BASO x10^3 (test 0.05 10*3/uL 0.01-0.09 code = 704-7) [facility] 23:03:00 Test Item Value Reference Range Interpretation Comments APPEARANCE (test code = Clear Clear 6825248819) COLOR (test code = Yellow Yellow 0561656053) PH (test code = 4.8-8.0 7281001028) SP GRAVITY (test code = >=1.030 1.003-1.030 7610671399) GLU U QUAL (test code = Negative Negative 3956197464) BLOOD (test code = Negative Negative 8000998977) KETONES (test code = Negative Negative 9339283230) PROTEIN (test code = Negative Negative 2887-8) UROBILIN (test code = 0.2 mg/dL See_Comment [Auto mated message] 3638292034) The system [employer] generated this result transmit luis reference range : 0-1.0 mg/dL. Th e reference range was not used to interpret this result as normal/abnormal . BILIRUBIN (test code = Negative Negative 3035951223) NITRITE (test code = Negative Negative 2896993004) LEUK GINO (test code = Negative Negative 2735492852) RBC/HPF (test code = See_Comment [Autom ated message] 2783653076) The system [employer] generated this result transmit luis reference range : 0 - 3 HPF. The refe rence range was not u sed to interpret th is result as normal/abnormal . WBC/HPF (test code = See_Comment [Autom ated message] 6400309843) The system [employer] generated this result transmit luis reference range : 0 - 5 HPF. The refe rence range was not u sed to interpret th is result as normal/abnormal . BACTERIA (test code = Few Negative A 9294140634) Lab Interpretation (test Abnormal code = 51106-8) [facility]OLIC [facility] (93623)2018-12-21 22:57:00 Test Item Value Reference Range Interpretation Comments NA (test code = 145 mmol/L 135-145 1680722411) K (test code = 3.7 mmol/L 3.5-5 9282181515) CL (test code = 106 mmol/L 98-108 0744202380) CO2 TOTAL (test code = 24 mmol/L 23-31 3913648207) AGAP (test code = 2-16 2980705222) BUN (test code = 9 mg/dL 7-23 9215226501) GLUCOSE (test code = 129 mg/dL 70-110 H 9320120563) CREATININE (test code = 0.75 mg/dL 0.6-1.25 7995751015) TOTAL BILI (test code = 0.3 mg/dL 0.1-1.0 6490664127) CALCIUM (test code = 9.1 mg/dL 8.6-10.6 4643738551) T PROTEIN (test code = 7.9 g/dL 6.3-8.2 9430744489) ALBUMIN (test code = 4.5 g/dL 3.5-5 0289708530) ALK PHOS (test code = 66 U/L 34-122 6369650689) ALT(SGPT) (test code = 62 U/L 9-51 H 9367499702) AST(SGOT) (test code = 42 U/L 13-40 H 8037603955) eGFR Calculation mL/min/1.73m2 (Non-) (test code = 0563998635) eGFR Calculation mL/min/1.73m2 () (test code = 2892558809) TAMIKO (test code = TAMIKO) Association of [...] tests). Lab Interpretation Abnormal (test code = 28341-9) [facility] Test Item Value Reference Range Interpretation Comments LIPASE (test code = 0055735102) 296 U/L 0-220 H Lab Interpretation (test code = Abnormal 38145-4) [facility]57:00 Test Item Value Reference Range Interpretation Comments MAGNESIUM (test code = 2630566259) 1.9 mg/dL 1.7-2.4 Lab Interpretation (test code = Normal 57766-5) [facility] [id number] 22:38:00 Test Item Value Reference Range Interpretation Comments WBC (test code = See_Comment [Automated 2990-2) message] The sy stem which generated this result transmitted reference range : 4.20 - 10.70 10*3/?L. The reference range was not used to interpret this result as normal/abnormal . RBC (test code = See_Comment [Automated 241-8) message] The sy stem which generated this [...] RDW-SD (test code = 44.4 fL 38.5-51.6 98794-3) RDW-CV (test code = 13.3 % 12.1-15.4 788-0) PLT (test code = See_Comment [Automated 777-3) message] The sy stem which generated this result transmitted reference range : 150 - 328 10*3/ ?L. The reference r javier was not used to interpret this result as normal/abnormal . MPV (test code = 10.0 fL 9.8-13 07194-9) NRBC/100 WBC (test See_Comment [Automat ed code = 0611658300) message] The system which generated this result transmitted reference range : 0.0 - 10.0 /100 WBCs. The refer ence range was not u sed to interpret th is result as normal/abnormal . NRBC x10^3 (test code <0.01 See_Comment [Auto mated = [id number]) message] The s ystem which generated this result transmitted reference range : 10*3/?L. The reference range was not used to interpret this result as normal/abnormal . GRAN MAT (NEUT) % 53.1 % (test code = 770-8) IMM GRAN % (test code 0.50 % = 0349948789) LYMPH % (test code = 27.1 % 736-9) MONO % (test code = 10.7 % 5905-5) EOS % (test code = 7.7 % 713-8) BASO % (test code = 0.9 % 706-2) GRAN MAT x10^3(ANC) 5.47 10*3/uL 1.99-6.95 (test code = 2706649761) IMM GRAN x10^3 (test 0.05 10*3/uL 0-0.06 code = 9693197102) LYMPH x10^3 (test code 2.79 10*3/uL 1.09-3.23 = 731-0) MONO x10^3 (test code 1.10 10*3/uL 0.36-1.02 H = 742-7) EOS x10^3 (test code = 0.79 10*3/uL 0.06-0.53 H 711-2) BASO x10^3 (test code 0.09 10*3/uL 0.01-0.09 = 704-7) Lab Interpretation Abnormal (test code = 28668-3) [facility], [id number] 14:45:00FINAL REPORT PROCEDURE: Rest/Stress MYOCARDIAL PERFUSION SPECT with treadmill\\XA9\\ CPT CODE: 26519 INDICATION: Chest pain HISTORY: Cardiac risk factors: Hypertension. Other cardiovascular history: No reported CAD. Recent cardiac symptoms: Chest pain. Current cardiovascular-relatedmedications: Metoprolol. PROTOCOL: 10.5 mCi of Tc-99m sestamibi was injected iv at rest, and SPECT (tomographic) images were obtained. Also, 31.2 mCi of Tc-99m sestamibi was injected iv approximately one minute prior to peak exercise, and gated SPECT images were obtained. PRELIMINARY STRESS TEST DATA FROM NONINVASIVE CARDIOLOGY: The patient exercised for 8 minutes 31 seconds using the Brian treadmillprotocol. Heart rate was 99 beats/min at rest; peak heart rate was 148 beats/min (78% of MPHR). BP was 150/103 mmHg at rest; peak BP was 175/90 mmHg. Exercise was stopped for fatigue. The patient experi enced chest tightness; treatment was not required. Preliminary [...] Normal extracardiac tracer distribution. 6. No previous [facility] study for co mparison. NONINVASIVE RISK STRATIFICATION: The above findings are considered low risk (<1% annualmortality rate) based on the following criterion:- Normal or small myocardial perfusion defect at rest or with stress(JACC. 2012;59(9):857- 81.) Signed: Ignacio Ruvalcaba MDReport Verified Date/Time: 03/17/2017 14:45:11 Reading Location: [address] Reading Room HEMOGLOBIN [id number] 08:29:00 Test Item Value Reference Range Interpretation Comments HEMOGLOBIN A1C (YING) (test code = 5.5 % 4.3-6.1 368) TROPONIN [id number] 02:45:00 Test Item Value Reference Range Interpretation Comments TROPONIN I (YING) (test code = 397) < ng/mL 0.00-0.03 [...] Normal6.7-10.0 Borderline>10.0 AbnormalRAD, CHEST, 1 VIEW, NON [id number] 20:40:00Reason for exam:->chest painShould this be performed at the bedside?->YesFINAL REPORT EXAMINATION: AP PORTABLE CHEST RADIOGRAPH CLINICAL INDICATION: Chest pain IMPRESSION: Compared with 04/30/2016. No evidence of focal lung consolidation, pulmonary edema or pleural effusion. The heart size is normal. Mediastinal contours are sharp. No evidence of an acute osseous abnormality or pneumothorax. Signed: [facility] Verified Date/Time: 03/16/201720:40:21 Reading Location: [address] Reading Room B-TYPE NATRIURETIC FACTOR (BNP)2017-03-16 20:30:00 Test Item Value Reference Range Interpretation Comments B-TYPE NATRIURETIC PEPTIDE (BEAKER) < pg/mL 0-100 (test code = 700) COMPREHENSIVE METABOLIC [id number] 20:30:00 Test Item Value Reference Range Interpretation [...] ATED GFR. CREATINE KINASE (CK), TOTAL AND [id number] 20:28:00 Test Item Value Reference Range Interpretation Comments CREATINE KINASE TOTAL (BEAKER) 50 U/L 29-200 (test code = 380) CREATINE KINASE-MB (BEAKER) (test 0.5 ng/mL 0.0-6.6 code = 750) CREATINE KINASE-MB INDEX (BEAKER) 1.0 % (test code = 395) CK-MB Reference Range:<6.7 Normal6.7-10.0 Borderline>10.0 Abnormal TROPONIN [id number] 20:28:00 Test Item Value Reference Range Interpretation [...] failure, acidosis, acute neurological disease, and persistent tachyarrhythmia.[id number] 20:21:00 Test Item Value Reference Range Interpretation Comments MAGNESIUM (BEAKER) 2.2 mg/dL 1.6-2.6 Specimen slightly (test code = 627) hemolyzed [id number] 20:21:00 Test Item Value Reference Range Interpretation Comments PHOSPHORUS (BEAKER) 3.9 mg/dL 2.3-4.7 Specimen slightly (test code = 604) hemolyzed LIPID [id number] 20:21:00 Test Item Value Reference Range Interpretation Comments TRIGLYCERIDES (BEAKER) 212 mg/dL Speci men slightly (test code = 540) hemolyzed CHOLESTEROL (BEAKER) 239 mg/dL Specime n slightly (test code = 631) hemolyzed HDL CHOLESTEROL (BEAKER) 35 mg/dL (test code = 976) LDL CHOLESTEROL 162 mg/dL CALCULATED (BEAKER) (test code = 633) Triglyceride Reference Range: Low Risk <150 Borderline 150-199 High Risk 200- 499 Very High Risk >=500Cholesterol Reference Range: Low Risk <200 Borderline 200-239 High Risk >240HDL Cholesterol Reference Range: Low Risk >=60 High Risk <40LDL Cholesterol Reference Range: Optimal <100 Near Optimal 100-129 Borderline 130-159 High 160-189 Very High >=190PROTHROMBIN TIME/[id number] 20:07:00 Test Item Value Reference Range Interpretation Comments PROTIME (BEAKER) (test code = 13.0 seconds 11.7-14.7 759) INR (BEAKER) (test code = 370) 1.0 <=5.9 RECOMMENDED COUMADIN/WARFARIN INR THERAPY RANGESSTANDARD DOSE: 2.0 - 3.0 Includes: PROPHYLAXIS for venous thrombosis, systemic embolization; TREATMENT for venous thrombosis and/or pulmonary embolus.HIGH RISK: Target INR is 2.5-3.5 for patients with mechanical heart valves.[id number] 20:07:00 Test Item Value Reference Range Interpretation Comments PARTIAL THROMBOPLASTIN TIME 26.9 seconds 22.5-36.0 (BEAKER) (test code = 760) CBC W/PLT COUNT & AUTO [id number] 19:57:00 Test Item Value Reference Range Interpretation [...]
[2022-06-21 11:39] LABS: Urine Blood Negative (Negative); Urine Glucose Negative (Negative); Urine Protein 1+ (Negative); Urine pH 8.5 (5.0-7.0)
[2022-06-21 11:39] LABS: Absolute Lymphocytes (CBC) 0.7 K/uL (0.7-4.9); Hematocrit 43.8 % (39.6-49.0); Lymphocytes % 12.9 % (15.3-44.8); MPV 8.4 fL (7.6-11.3); RBC Red Blood Cell Count 4.98 M/uL (4.33-5.43)
[2022-06-21 11:58] LABS: ALT/SGPT 48 U/L (16-61); AST/SGOT 48 U/L (15-37); Albumin 3.2 g/dL (3.4-5.0); Alkaline Phosphatase 102 U/L (45-117); BUN Blood Urea Nitrogen 8 mg/dL (7-18); Bicarbonate 27 mmol/L (21-32); Bilirubin Direct 0.1 mg/dL (0-0.2); Bilirubin Total 0.3 mg/dL (0.2-1.0); Glomerular Filtration Rate 117 ml/min (=/>90); Glucose Level 98 mg/dL (74-106); Potassium 3.4 mmol/L (3.5-5.1); Protein, Total 6.8 g/dL (6.4-8.2); Sodium Level 135 mmol/L (136-145)
[2022-06-21 12:01] LABS: Protime INR 1.05
[2022-06-21 12:09] LABS: Barbiturates NEGATIVE (NEGATIVE); Benzodiazepines POSITIVE (NEGATIVE); Cocaine NEGATIVE (NEGATIVE); METHAMPHETAM NEGATIVE (NEGATIVE); Methadone NEGATIVE (NEGATIVE); Opiates NEGATIVE (NEGATIVE); Phencyclidine NEGATIVE (NEGATIVE); THC Cannibis NEGATIVE (NEGATIVE)
--- NOTE | 2022-06-21 12:39 | ER ---
Nurse's Notes [facility] Name: Srini Simpson Age: 37 yrs Sex: Male : 1985 Arrival Date: 06/21/2022 Time: 10:25 Bed 17 Private MD: Diagnosis: Major depressive disorder, recurrent, moderate;Suicidal ideations;Weakness Presentation: 06/21 10:55 Chief complaint: Patient states: body aches and fever that began 2 days ago. Pt states, ss "I've also recently been feeling suicidal." Pt states he would hurt himself with a razor blade. Coronavirus screen: Client denies travel out of the [place] in the last 14 days. Ebola Screen: Patient denies exposure to infectious person. Patient denies travel to an Ebola-affected area in the 21 days before illness onset. Initial Sepsis Screen: Does the patient meet any 2 criteria? No. Patient's initial sepsis screen is negative. Does the patient have a suspected source of infection? No. Patient's initial sepsis screen is negative. Risk Assessment: Do you want to hurt yourself or someone else? Patient reports no desire to harm self or others. Onset of symptoms was June 19, 2022. 10:55 Acuity: CHRISTINE 2 ss 10:55 Method Of Arrival: EMS: [facility] Historical: - Allergies: 10:57 No Known Allergies; ss - Home Meds: 10:57 metoprolol tartrate 50 mg Oral tab 1 tab 2 times per day [Active]; Klonopin 1 mg Oral ss tab every 6 hours [Active]; - PMHx: 10:57 Anxiety; Depression; ETOH/drug abuse; Hypertension; Pyloric Stenosis; ss - PSHx: 10:57 None; ss - Immunization history:: Client reports receiving the 2nd dose of the Covid vaccine. - Social history:: Smoking status: Patient reports the use of cigarette tobacco products, smokes one-half pack cigarettes per day, Reported history of juuling and/or vaping. Patient uses alcohol, occasionally. Patient/guardian denies using street drugs. Assessment: 11:42 Reassessment: Patient appears in no apparent distress at this time. Patient and/or db family updated on plan of care and expected duration. Pain level reassessed. Patient is alert, oriented x 3, equal unlabored respirations, skin warm/dry/pink. patient provided sandwich.. Dr. Shaw approved food. Vital Signs: 10:55 BP 152 / 109; Pulse 86; Resp 16; Temp 100.0(O); Pulse Ox 97% on R/A; Weight 104.33 kg; Height 5 ft. 7 in. (170.18 cm); Pain 7/10; 11:13 BP 145 / 94; Pulse 90; Resp 16; Pulse Ox 97% ; db 10:55 Body Mass Index 36.02 (104.33 kg, 170.18 cm) ED Course: 10:25 Patient arrived in ED. rg4 10:35 Jeevan Shaw MD is Attending Physician. [facility] 10:57 Triage completed. 10:57 Arm band placed on left wrist. 11:01 Rosie Bradshaw RN is Primary Nurse. ph 11:20 Maintain EMS IV. Dressing intact. Good blood return noted. Site clean \\T\\ dry. Gauge \\T\\ db site: 20. Flushed right antecubital with 5 ml normal saline. 11:38 COVID-19/FLU A+B Sent. mm9 11:38 Acetaminophen Sent. mm9 11:38 Basic Metabolic Panel Sent. mm9 11:39 Warm blanket given. Diet: FINGER FOOD . mm9 11:39 CBC with Diff Sent. mm9 11:39 ETOH Level Sent. mm9 11:39 Hepatic Function Sent. mm9 11:39 PT-INR Sent. mm9 11:39 Ptt, Activated Sent. mm9 11:39 Salicylate Sent. mm9 11:39 Urine Drug Screen Sent. mm9 Administered Medications: 11:30 Drug: NS 0.9% 1000 ml Route: IV; Rate: 1 bolus; Site: right antecubital; db 12:10 Drug: Ativan (LORazepam) 1 mg Route: IVP; Site: right forearm; ph 12:10 Drug: Tylenol 1000 mg Route: PO; ph Outcome: 12:38 ER care complete, transfer ordered by . [facility] Signatures: Jeevan Shaw MD MD cha Smirch, Shelby, RN RN Rosie Bradshaw RN RN ph Garcia, Rubi rg4 Sharon Jennings RN RN db Jill Qiu mm9
--- NOTE | 2022-06-21 12:39 | EDPHYS ---
Physician Documentation [facility] Name: Srini Simpson Age: 37 yrs Sex: Male : 1985 Arrival Date: 06/21/2022 Time: 10:25 Bed 17 Private MD: ED Physician Jeevan Shaw HPI: 06/21 12:27 This 37 yrs old Male presents to ER via EMS with complaints of Fever. nehemias 12:27 The patient reports fever, that was measured at 100 degrees Fahrenheit. nehemias Historical: - Allergies: 10:57 No Known Allergies; ss - Home Meds: 10:57 metoprolol tartrate 50 mg Oral tab 1 tab 2 times per day [Active]; Klonopin 1 mg Oral ss tab every 6 hours [Active]; - PMHx: 10:57 Anxiety; Depression; ETOH/drug abuse; Hypertension; Pyloric Stenosis; ss - PSHx: 10:57 None; ss - Immunization history:: Client reports receiving the 2nd dose of the Covid vaccine. - Social history:: Smoking status: Patient reports the use of cigarette tobacco products, smokes one-half pack cigarettes per day, Reported history of juuling and/or vaping. Patient uses alcohol, occasionally. Patient/guardian denies using street drugs. ROS: 12:30 Constitutional: Negative for fever, chills, and weight loss, Eyes: Negative for injury, nehemias pain, redness, and discharge, ENT: Negative for injury, pain, and discharge, Neck: Negative for injury, pain, and swelling, Cardiovascular: Negative for chest pain, palpitations, and edema, Abdomen/GI: Negative for abdominal pain, nausea, vomiting, diarrhea, and constipation, Back: Negative for injury and pain, : Negative for injury, bleeding, discharge, and swelling, MS/Extremity: Negative for injury and deformity, Skin: Negative for injury, rash, and discoloration, Neuro: Negative for headache, weakness, numbness, tingling, and seizure, Allergy/Immunology: Negative for hives, rash, and allergies, Endocrine: Negative for neck swelling, polydipsia, polyuria, polyphagia, and marked weight changes, Hematologic/Lymphatic: Negative for swollen nodes, abnormal bleeding, and unusual bruising. 12:30 Respiratory: Positive for cough, with no reported sputum. 12:30 Psych: Positive for depression, suicidal ideation. Exam: 12:31 Constitutional: This is a well developed, well nourished patient who is awake, alert, nehemias and in no acute distress. Head/Face: Normocephalic, atraumatic. Eyes: Pupils equal round and reactive to light, extra-ocular motions intact. Lids and lashes normal. Conjunctiva and sclera are non-icteric and not injected. Cornea within normal limits. Periorbital areas with no swelling, redness, or edema. ENT: Nares patent. No nasal discharge, no septal abnormalities noted. Tympanic membranes are normal and external auditory canals are clear. Oropharynx with no redness, swelling, or masses, exudates, or evidence of obstruction, uvula midline. Mucous membranes moist. Neck: Trachea midline, no thyromegaly or masses palpated, and no cervical lymphadenopathy. Supple, full range of motion without nuchal rigidity, or vertebral point tenderness. No Meningismus. Chest/axilla: Normal chest wall appearance and motion. Nontender with no deformity. No lesions are appreciated. Cardiovascular: Regular rate and rhythm with a normal S1 and S2. No gallops, murmurs, or rubs. Normal PMI, no JVD. No pulse deficits. Respiratory: Lungs have equal breath sounds bilaterally, clear to auscultation and percussion. No rales, rhonchi or wheezes noted. No increased work of breathing, no retractions or nasal flaring. Abdomen/GI: Soft, non-tender, with normal bowel sounds. No distension or tympany. No guarding or rebound. No evidence of tenderness throughout. Back: No spinal tenderness. No costovertebral tenderness. Full range of motion. Male : Normal genitalia with no discharge or lesions. Skin: Warm, dry with normal turgor. Normal color with no rashes, no lesions, and no evidence of cellulitis. MS/ Extremity: Pulses equal, no cyanosis. Neurovascular intact. Full, normal range of motion. Neuro: Awake and alert, GCS 15, oriented to person, place, time, and situation. Cranial nerves II-XII grossly intact. Motor strength 5/5 in all extremities. Sensory grossly intact. Cerebellar exam normal. Normal gait. Psych: Awake, alert, with orientation to person, place and time. Behavior, mood, and affect are within normal limits. 12:31 ECG was reviewed by the Attending Physician. Vital Signs: 10:55 BP 152 / 109; Pulse 86; Resp 16; Temp 100.0(O); Pulse Ox 97% on R/A; Weight 104.33 kg; ss Height 5 ft. 7 in. (170.18 cm); Pain 7/10; 11:13 BP 145 / 94; Pulse 90; Resp 16; Pulse Ox 97% ; db 10:55 Body Mass Index 36.02 (104.33 kg, 170.18 cm) ss MDM: 11:01 Patient medically screened. nehemias 12:35 Differential diagnosis: viral Infection, bacterial infection, URI, bronchitis, nehemias pneumonia UTI. Data reviewed: vital signs, nurses notes, lab test result(s), EKG, radiologic studies, plain films. Consideration of Admission/Observation Patient was admitted/placed on observation. Escalation of care including admission/observation considered. I considered the following discharge prescriptions or medication management in the emergency department Medications were administered in the Emergency Department. See MAR. Test considered but Not performed: CT: no ct chest. Care significantly affected by the following chronic conditions: Hypertension, depression, anxiety. 06/21 10:36 Order name: EKG; Complete Time: 10:37 [facility] 06/21 10:36 Order name: COVID-19/FLU A+B [facility] 06/21 10:36 Order name: EKG - Nurse/Tech; Complete Time: 11:38 [facility] 06/21 10:36 Order name: IV Saline Lock; Complete Time: 11:38 06/21 10:36 Order name: Labs collected and sent; Complete Time: 11:38 06/21 10:36 Order name: Urine Dipstick-Ancillary (obtain specimen); Complete Time: 11:38 [facility] 06/21 11:40 Order name: Diet Finger Food; Complete Time: 11:40 mm9 06/21 10:36 Order name: Suicide Screening ([place]); Complete Time: 12:05 [facility] 06/21 10:36 Order name: CBC with Diff; Complete Time: 12:07 [facility] 06/21 10:36 Order name: ETOH Level; Complete Time: 12:07 [facility] 06/21 10:36 Order name: PT-INR; Complete Time: 12:07 [facility] 06/21 10:36 Order name: Ptt, Activated; Complete Time: 12:07 [facility] 06/21 11:39 Order name: Urine Dipstick-Ancillary; Complete Time: 12:07 [facility]MS 06/21 12:02 Order name: Strep ss 06/21 10:36 Order name: Acetaminophen; Complete Time: 12:26 [facility] 06/21 10:36 Order name: Basic Metabolic Panel; Complete Time: 12:26 [facility] 06/21 10:36 Order name: Hepatic Function; Complete Time: 12:26 [facility] 06/21 10:36 Order name: Salicylate; Complete Time: 12: [facility] 06/21 10:36 Order name: Urine Drug Screen; Complete Time: 12: [facility] 06/21 12:26 Order name: Chest Pa And Lat (2 Views) XRAY [facility] 06/21 12:30 Order name: Blood Culture Adult (2) [facility] 06/21 12:30 Order name: Lactate w/ 2H reflex if indic. nehemias EC:31 Rate is 87 beats/min. Rhythm is regular. QRS Mclean is Normal. NM interval is normal. QRS nehemias interval is normal. QT interval is normal. No Q waves. T waves are Normal. No ST changes noted. Clinical impression: Normal ECG and No evidence of ischemia. Interpreted by me. Reviewed by me. Administered Medications: 11:30 Drug: NS 0.9% 1000 ml Route: IV; Rate: 1 bolus; Site: right antecubital; db 12:10 Drug: Ativan (LORazepam) 1 mg Route: IVP; Site: right forearm; ph 12:10 Drug: Tylenol 1000 mg Route: PO; ph Disposition Summary: 06/21/22 12:38 Transfer Ordered Accepting Physician: to psych nehemias Transfer Location: Psych Facility nehemias Reason: Higher level of care nehemias Condition: Stable nehemias Problem: new nehemias Symptoms: have improved nehemias Diagnosis - Major depressive disorder, recurrent, moderate nehemias - Suicidal ideations nehemias - Weakness nehemias Forms: - Medication Reconciliation Form nehemias - SBAR form nehemias Signatures: Dispatcher [employer] EDID Jeevan Shaw MD MD cha Smirch, Shelby, RN RN Rosie Bradshaw RN RN Sharon Jennings, RN RN db
[2022-06-21 12:47] LABS: SARS-COV-2 RT PCR POSITIVE (NEGATIVE)
--- NOTE | 2022-06-21 13:36 | RAD REPORT ---
EXAM DESCRIPTION: RAD - Chest Pa And Lat (2 Views) - 06/21/2022 1:27 pm CLINICAL HISTORY: COUGH COMPARISON: Chest Single View dated 12/02/2021; Chest Single View dated 10/07/2021; Chest Single View dated 05/27/2021; Chest Single View dated 01/18/2021 FINDINGS: Lines: None. Lungs: No evidence of edema or pneumonia. Pleural: No significant pleural effusions or pneumothorax. Cardiac: The heart size is within normal limits. Mediastinum: Within normal limits. Bones: No acute fractures. Other: None IMPRESSION: No acute cardiopulmonary disease.
[2022-06-22 19:56] LABS: SARS-CoV-2 Antigen Rapid Res Positive (Negative)
[2022-06-24 14:27] LABS: SARS-CoV-2 Antigen Rapid Res Negative (Negative)
--- NOTE | 2022-06-24 17:22 | EKG ---
Test Date: 2022-06-21 Test Time: 11:30:12 Corporate Sales Manager: EDILBERTO MEASUREMENT RESULTS: Intervals: Rate: 87 OK: 128 QRSD: 94 QT: 348 QTc: 418 [place]: P: 42 OK: 128 QRS: 66 T: 39 INTERPRETIVE STATEMENTS: Normal sinus rhythm Normal ECG Compared to ECG 12/02/2021 03:44:07 No significant changes Electronically Signed On 06-24-22 17:15:[address] [place] [address] [place] LAW CLERK by Dariel Hernandez
[2022-06-24 18:28] LABS: Albumin 3.7 g/dL (3.4-5.0); Bilirubin Total 0.4 mg/dL (0.2-1.0); Potassium 3.9 mmol/L (3.5-5.1); Protein, Total 8.3 g/dL (6.4-8.2)
[2022-06-24 18:38] LABS: Hematocrit 46.5 % (39.6-49.0); MCV 88.4 fL (80-100); MPV 8.5 fL (7.6-11.3); RBC Red Blood Cell Count 5.26 M/uL (4.33-5.43)
== END ==
LOC: ER 10:24
DX: U07.1 COVID-19 (principal); F33.1 Major depressive disorder, recurrent, moderate; R45.851 Suicidal ideations; R53.1 Weakness
CPT/HCPCS: 0240U; 36415; 71046; 80048; 80076; 80307; 81003; 83605; 85025; 85610; 85730; 87040; 87070; 87081; 87811; 93005; G0480; J7030